=== PATIENT | female | born 1970 | race Caucasian/White ===

== ENCOUNTER 2016-10-02 10:11 | Emergency (ER) | payer OTHER ==
[2016-10-02 10:18] VITALS: TEMP 98.3; BMI 40.4
--- NOTE | 2016-10-02 11:05 | PDOC ---
History of Present Illness - General History Source: Patient, Old Records Exam Limitations: No Limitations - History of Present Illness Initial Comments: 10/02/16 11:02 The patient is a 46-year-old woman with a significant past medical history of hypertension, deep venous thrombosis (currenly on Lovenox BID), non-insulin dependent diabetes mellitus, bladder prolapse, anxiety, depression and polysubstance abuse who presents to the emergency department for further evaluation of chest pain. Patient states that for the past 3 days, she has been feeling under the weather, as she reports symptoms of nausea, vomiting, and diarrhea. She reports several episodes of bilious emesis and loose watery stools. She states that she developed chest today with associated productive cough with yellow phlegm, shortness of breath and feels as if her legs feels heavy. No pain. No numbness, tinging, weakness sensations throughout her extremities. No neck pain, jaw pain, back pain, lightheadedness, dizziness, palpitations, loss of consciousness, fever, chills. No urinary complaints. Allergies: Acetaminophen. Ibuprofen. Past Surgical History: Cholecystectomy. Social History: Current everyday smoker. No ETOH use. Marijuana use and history of opiate abuse/treatment. <Pratima Manriquez - Last Filed: 10/02/16 13:32> - General History Source: Patient, Old Records Exam Limitations: No Limitations <Viktoriya Santana - Last Filed: 10/02/16 16:36> - General Chief Complaint: Chest Pain Stated Complaint: CHEST PAIN, FATIGUE Time Seen by Provider: 10/02/16 10:45 Past History <Pratima Manriquez - Last Filed: 10/02/16 13:32> - Past Medical History Anemia: No Asthma: No Cancer: No Cardiac Disorders: No CVA: No COPD: No CHF: No Dementia: No Diabetes: Yes (type 2) GI Disorders: Yes (diarrhea) Disorders: Yes (bladder prolapse) HTN: Yes Hypercholesterolemia: No Kidney Stones: Yes Liver Disease: No Psychiatric Problems: Yes (anxiety depression) Suicide Attempt (Hx): No Seizures: No Thyroid Disease: No - Surgical History Abdominal Surgery: Yes Appendectomy: No Cardiac Surgery: No Cholecystectomy: Yes Lung Surgery: No Neurologic Surgery: No Orthopedic Surgery: No - Immunization History Td Vaccination: Yes Immunization Up to Date: Yes - Psycho/Social/Smoking Cessation Hx Anxiety: Yes Suicidal Ideation: No Smoking Status: No Smoking History: Smoker current status UNK Have you smoked in the past 12 months: Yes Number of Cigarettes Smoked Daily: 10 Information on smoking cessation initiated: Yes 'Breaking Loose' booklet given: 08/14/16 Hx Alcohol Use: No Drug/Substance Use Hx: Yes Substance Use Type: Marijuana Hx Substance Use Treatment: Yes (HX OF OPIATE TREATMENT) <Viktoriya Santana - Last Filed: 10/02/16 16:36> - Past Medical History Allergies/Adverse Reactions: Allergies Allergy/AdvReac Type Severity Reaction Status Date / Time acetaminophen [From Tylenol] AdvReac Mild Verified 10/02/16 10:18 ibuprofen [From Motrin] AdvReac Nausea Verified 10/02/16 10:18 Home Medications: Ambulatory Orders Nifedipine [Procardia Xl] 90 mg PO DAILY 07/12/16 Enoxaparin [Lovenox -] 110 mg SQ BID #60 disp.syrin 07/13/16 Quetiapine Fumarate [Seroquel -] 25 mg PO HS 08/13/16 Pregabalin [Lyrica] 100 mg PO TID 10/02/16 Review of Systems - Review of Systems Able to Perform ROS?: Yes Comments:: 10/02/16 11:02 GENERAL/CONSTITUTIONAL: No fever or chills. No weakness. HEAD, EYES, EARS, NOSE AND THROAT: No change in vision. No ear pain or discharge. No sore throat. CARDIOVASCULAR: Yes: Chest Pain. Shortness of Breath. RESPIRATORY: Yes: Cough. No wheezing, or hemoptysis. GASTROINTESTINAL: Yes: Nausea. Vomiting. Diarrhea. No constipation. GENITOURINARY: No dysuria, frequency, or change in urination. MUSCULOSKELETAL: No joint or muscle swelling or pain. No neck or back pain. SKIN: No rash NEUROLOGIC: No headache, vertigo, loss of consciousness, or change in strength/ sensation. ENDOCRINE: No increased thirst. No abnormal weight change. HEMATOLOGIC/LYMPHATIC: Yes: History of blood clots. No anemia, easy bleeding ALLERGIC/IMMUNOLOGIC: No hives or skin allergy. <Pratima Manriquze - Last Filed: 10/02/16 13:32> *Physical Exam - Vital Signs Last Vital Signs Temp Pulse Resp BP Pulse Ox 98.3 F 115 H 22 159/83 99 10/02/16 10:15 10/02/16 10:15 10/02/16 10:15 10/02/16 10:15 10/02/16 10:15 - Physical Exam Comments: 10/02/16 11:02 GENERAL: Awake, alert, and fully oriented, in no acute distress HEAD: No signs of trauma EYES: PERRLA, EOMI, sclera anicteric, conjunctiva clear ENT: Auricles normal inspection, hearing grossly normal, nares patent, oropharynx clear without exudates. Moist mucosa NECK: Normal ROM, supple, no lymphadenopathy, JVD, or masses LUNGS: Breath sounds equal, clear to auscultation bilaterally. No wheezes, and no crackles HEART: Regular rate and rhythm, normal S1 and S2, no murmurs, rubs or gallops ABDOMEN: Soft, there is some diffuse abdominal tenderness left greater than right without rebound or guarding. Normoactive bowel sounds. No guarding, no rebound. No masses EXTREMITIES: Normal range of motion, no edema. No clubbing or cyanosis. No cords, erythema, or tenderness NEUROLOGICAL: Cranial nerves II through XII grossly intact. Normal speech, normal gait <Pratima Manriquez - Last Filed: 10/02/16 13:32> - Vital Signs Last Vital Signs Temp Pulse Resp BP Pulse Ox 98.3 F 115 H 22 159/83 99 10/02/16 10:15 10/02/16 10:15 10/02/16 10:15 10/02/16 10:15 10/02/16 10:15 <Viktoriya Satnana - Last Filed: 10/02/16 16:36> ED Treatment Course - LABORATORY CBC & Chemistry Diagram: 10/02/16 11:10 10/02/16 11:10 - Medications Given in the ED: ED Medications Discontinued Medications Generic Name Dose Route Start Last Admin Trade Name Freq PRN Reason Stop Dose Admin Ondansetron HCl 4 mg 10/02/16 11:06 10/02/16 11:17 Zofran Injection IVPUSH 10/02/16 11:07 4 mg ONCE ONE Administration <Pratima Manriquez - Last Filed: 10/02/16 13:32> - LABORATORY CBC & Chemistry Diagram: 10/02/16 11:10 10/02/16 11:10 <Viktoriya Santana - Last Filed: 10/02/16 16:36> Medical Decision Making - Medical Decision Making 10/02/16 11:03 46-year-old female with history of morbid obesity, diabetes, DVT and depression presents the emergency department with complaints of mid and upper abdominal pain, vomiting and diarrhea 3 days as well as cough associated with chest pain. Differential diagnosis includes but is not limited to: Acute gastroenteritis, diverticulitis, regional colitis, pneumonia, influenza, DKA, electrolyte abnormality, dehydration, toxic/metabolic derangement. Plan: 1. Labs 2. Urine analysis 3. Chest x-ray 4. EKG 5. IV fluids for hydration 6. Antiemetics 7. Pain management 8. CT scan abdomen and pelvis 9. Observe and reevaluate 10/02/16 14:56 All labs were reviewed and are noted in the EMR. The CT scan is negative for acute abdominal pathology. Chest x-ray is negative. We'll give the patient a trial of liquids and crackers and if she tolerates we'll discharge home. Follow- up with primary care physician and return to the emergency department if her symptoms persist, worsen, or new symptoms arise. 10/02/16 16:35 Addendum: Attempted to discharge the patient but she told the nurse that she vomited in the bathroom. Will give zofran and IVF and re-evaluate. <Viktoriya Santana - Last Filed: 10/02/16 16:36> *DC/Admit/Observation/Transfer - Attestations Scribe Attestion: 10/02/16 11:02 Documentation prepared by Pratima Manriquez, acting as medical nurse for Viktoriya Santana MD. <Pratima Manriquez - Last Filed: 10/02/16 13:32> - Discharge Dispostion Admit: No - Attestations Physician Attestion: 10/02/16 11:03 I, Dr. Viktoriya Santana, attest that the scribes documentation that appears above has been prepared under my direction and personally reviewed by me in its entirety. I confirmed that the note above accurately reflects all work, treatment, procedures, and medical decision-making performed by me. <Viktoriya Santana - Last Filed: 10/02/16 16:36> Diagnosis at time of Disposition: Nausea and vomiting, Diarrhea, Abdominal pain - Discharge Dispostion Disposition: HOME Condition at time of disposition: Stable - Referrals Referrals: Ann-Marie Oconnor MD [Primary Care Provider] - - Patient Instructions Additional Instructions: Here CAT scan of the abdomen and pelvis was negative for acute intra-abdominal pathology or infection. Please follow-up with your primary care physician within the next 3 days. Make sure that you attempt to keep yourself hydrated with clear liquids and slowly advance your diet as tolerated. Return to the emergency department if your symptoms persist, worsen, or new symptoms arise.
[2016-10-02] MEDS ORDERED: ONDANSETRON 4 MG/2 ML VIAL IVPUSH ONE ×2 (11:06→16:35)
[2016-10-02] MEDS ORDERED: SODIUM CHLORIDE 1,000 ML IV STA ×2 (11:06→16:35)
[2016-10-02] MEDS ORDERED: ONDANSETRON 4 MG/2 ML VIAL ONE ×2 (11:11→17:14)
[2016-10-02 11:25] LABS: BASOPHIL 1.1 % (0-2.0); EOSINOPHIL 0.8 % (0-4.5); MCH 28.7 pg (25.7-33.7); MEAN PLT VOLUME 8.7 fl (7.5-11.1); NEUTROPHILS 69.7 % (42.8-82.8); PLATELET COUNT 345 K/MM3 (134-434); RDW 13.7 % (11.6-15.6); WHITE BLOOD COUNT 11.8 K/mm3 (4.0-10.0)
[2016-10-02 11:26] LABS: URINE APPEARANCE CLOUDY; URINE BILIRUBIN NEGATIVE (NEGATIVE); URINE BLOOD NEGATIVE (NEGATIVE); URINE COLOR AMBER; URINE GLUCOSE (UA) NEGATIVE (NEGATIVE); URINE KETONE NEGATIVE (NEGATIVE); URINE LEUK ESTERASE NEGATIVE (NEGATIVE); URINE NITRITE NEGATIVE (NEGATIVE); URINE UROBILINOGEN 2.0 E.U/dl E.U./dl (0.2-1.0)
[2016-10-02 11:29] LABS: URINE PROTEIN 1+ (NEGATIVE)
[2016-10-02 11:35] LABS: URINE BACTERIA RARE /hpf (NONE SEEN); URINE MUCUS RARE; URINE RBC 2 /hpf (0-3); URINE WBC 6 /hpf (3-5)
[2016-10-02 11:50] LABS: ALBUMIN 4.6 g/dl (3.4-5.0); ANION GAP 15 (8-16); BILIRUBIN,TOTAL 1.1 mg/dL (0.2-1.0); CALCIUM 10.2 mg/dL (8.5-10.1); CO2 26 mmol/L (21-32); CREATININE 1.2 mg/dL (0.55-1.02); GLUCOSE,RANDOM 175 mg/dL (74-106); SGOT/AST 16 U/L (15-37); SGPT/ALT 27 U/L (12-78); TOT PROT 8.2 g/dl (6.4-8.2)
[2016-10-02 11:53] LABS: ALK PHOS 71 U/L (45-117); TROPONIN I < 0.02 ng/ml (0.00-0.05)
[2016-10-02 12:09] LABS: ACETONE SERUM NEGATIVE (NEGATIVE)
[2016-10-02] MEDS ORDERED: morphine CARPU-JECT 4 MG/1 ML DISP.SYRIN IVPUSH ONE (13:03)
[2016-10-02] MEDS ORDERED: morphine CARPU-JECT 4 MG/1 ML DISP.SYRIN ONE (13:03)
[2016-10-02] MEDS ORDERED: NIFEdipine E.R. 90 MG TABLET (FP) PO SCH (14:00)
[2016-10-02 17:47] VITALS: PULSE 101
[2016-10-02 19:00] VITALS: BP 125/82
--- NOTE | 2016-10-03 17:09 | EKG ---
Test Reason : Blood Pressure : / mmHG Vent. Rate : 102 BPM Atrial Rate : 102 BPM P-R Int : 128 ms QRS Dur : 096 ms QT Int : 358 ms P-R-T Axes : 010 068 018 degrees QTc Int : 466 ms SINUS TACHYCARDIA CANNOT RULE OUT ANTERIOR INFARCT (CITED ON OR BEFORE 06-APR-2016) ABNORMAL ECG WHEN COMPARED WITH ECG OF 13-AUG-2016 14:00, NO SIGNIFICANT CHANGE WAS FOUND Confirmed by LORETO CLEANING, BRETT ([id number]) on 10/03/2016 5:09:03 PM Referred By: Confirmed By:BRETT DANGELO MD
== END 2016-10-02 19:40 | disposition home or self-care (01) ==
LOC: JER 10:11
DX: R10.84 Generalized abdominal pain (principal); R11.2 Nausea with vomiting, unspecified; I10 Essential (primary) hypertension; E11.9 Type 2 diabetes mellitus without complications; F41.9 Anxiety disorder, unspecified; Z86.718 Personal history of other venous thrombosis and embolism; Z79.01 Long term (current) use of anticoagulants; E66.01 Morbid (severe) obesity due to excess calories; Z68.41 Body mass index [BMI] 40.0-44.9, adult
CPT/HCPCS: 36415; 71010-TC; 74176-TC; 80053; 81003; 81015; 82009; 82550; 84484; 84703; 85025; 93005; 93010; 99285-25

== ENCOUNTER 2016-10-27 00:21 | Emergency (ER) | payer OTHER ==
[2016-10-27 00:54] VITALS: TEMP 98.4; BMI 39.7
--- NOTE | 2016-10-27 01:49 | PDOC ---
[id number] 4d LEG PAIN,SIDE PAIN Time Seen by Provider: 10/27/16 01:32 History Source: Patient - History of Present Illness Initial Comments: 10/27/16 01:52 46 year old female c/o b/l flank pain and left rae pain x 1 days. pain unrelieved with percocet at home. denies SOB, fever NVD.PMHx of HTN, DMII, DVT' s currently on lovenox and IVC filter, PE's, nephrolithiasis, anxiety, depression, and previous polysubstance abuse. \ Past History - Past Medical History Allergies/Adverse Reactions: Allergies Allergy/AdvReac Type Severity Reaction Status Date / Time acetaminophen [From Tylenol] AdvReac Mild Verified 10/27/16 00:39 ibuprofen [From Motrin] AdvReac Nausea Verified 10/27/16 00:39 Home Medications: Ambulatory Orders Nifedipine [Procardia Xl] 90 mg PO DAILY 07/12/16 Enoxaparin [Lovenox -] 110 mg SQ BID #60 disp.syrin 07/13/16 Quetiapine Fumarate [Seroquel -] 25 mg PO HS 08/13/16 Ondansetron [Zofran Odt -] 4 mg SL BID PRN #14 od.tablet 10/02/16 Pregabalin [Lyrica] 100 mg PO TID 10/02/16 Tramadol HCl 50 mg PO QID #12 tablet MDD 4 10/27/16 Oxycodone HCl/Acetaminophen [Percocet 10-325 mg Tablet] 1 each PO Q4H PRN Anemia: No Asthma: No Cancer: No Cardiac Disorders: No CVA: No COPD: No CHF: No Dementia: No Diabetes: Yes (type 2) GI Disorders: Yes (diarrhea) Disorders: Yes (bladder prolapse) HTN: Yes Hypercholesterolemia: No Kidney Stones: Yes Liver Disease: No Psychiatric Problems: Yes (anxiety depression) Suicide Attempt (Hx): No Seizures: No Thyroid Disease: No - Surgical History Abdominal Surgery: Yes Appendectomy: No Cardiac Surgery: No Cholecystectomy: Yes Lung Surgery: No Neurologic Surgery: No Orthopedic Surgery: No - Immunization History Td Vaccination: Yes Immunization Up to Date: Yes - Psycho/Social/Smoking Cessation Hx Anxiety: Yes Suicidal Ideation: No Smoking Status: No Smoking History: Current every day smoker Have you smoked in the past 12 months: Yes Number of Cigarettes Smoked Daily: 10 Information on smoking cessation initiated: No 'Breaking Loose' booklet given: 08/14/16 Hx Alcohol Use: No Drug/Substance Use Hx: No Substance Use Type: Marijuana Hx Substance Use Treatment: Yes (HX OF OPIATE TREATMENT) Review of Systems - Review of Systems Able to Perform ROS?: Yes Is the patient limited [place] proficient: No : Yes: Flank Pain (bilateral). No: Symptoms Reported, See HPI, Burning, Dysuria, Discharge, Frequency, Hematuria, Incontinence, Pain, Urgency, Testicular Mass, Testicular Swelling, Lesions, Testicular Pain, Other Musculoskeletal: Yes: Other (left rae pain). No: Symptoms Reported, See HPI, Back Pain, Gout, Joint Pain, Joint Swelling, Muscle Pain, Muscle Weakness, Neck Pain, Joint Stiffness *Physical Exam - Vital Signs Last Vital Signs Temp Pulse Resp BP Pulse Ox 98.4 F 89 20 156/108 99 10/27/16 00:39 10/27/16 00:39 10/27/16 00:39 10/27/16 00:39 10/27/16 00:39 - Physical Exam General Appearance: Yes: Appropriately Dressed Respiratory/Chest: positive: Lungs Clear, Normal Breath Sounds Cardiovascular: positive: Regular Rhythm, Regular Rate Gastrointestinal/Abdominal: positive: Normal Bowel Sounds, Soft Extremity: positive: Normal Capillary Refill, Normal Inspection, Normal Range of Motion. negative: Pedal Edema, Swelling, Calf Tenderness Integumentary: positive: Normal Color, Dry, Warm Neurologic: positive: Fully Oriented, Alert, Normal Mood/Affect Progress Note - Progress Note Progress Note: A: DVT; flank pain p: UA: wnl tramadol, morphine, toradol. outpatient vascular and urology practice. Medical Decision Making - Medical Decision Making 10/27/16 03:16 previous charts reviewed. patient with no reaction to toradol. will give toradol and morphine for pain. *DC/Admit/Observation/Transfer Diagnosis at time of Disposition: Flank pain DVT (deep venous thrombosis) Qualifiers: DVT location: lower extremity Affected thrombotic vein of extremity: unspecified vein of extremity Laterality: unspecified laterality Chronicity: chronic Qualified Code(s): I82.509 - Chronic embolism and thrombosis of unspecified deep veins of unspecified lower extremity - Discharge Dispostion Disposition: HOME - Prescriptions Prescriptions: Tramadol HCl 50 mg PO QID #12 tablet MDD 4 - Referrals Referrals: Herbert Knox MD [Staff Physician] - Ann-Marie Oconnor MD [Primary Care Provider] - Laron Gambino MD., [Staff Physician] - - Patient Instructions Printed Discharge Instructions: DI for Flank Pain Additional Instructions: drink plenty of fluids. follow up with vascular/ urology MD as soon as possible take tramadol as prescribed. return to the ER if symptoms worsen.
[2016-10-27 02:29] LABS: URINE APPEARANCE SLCLOUDY; URINE BILIRUBIN NEGATIVE (NEGATIVE); URINE BLOOD NEGATIVE (NEGATIVE); URINE COLOR YELLOW; URINE GLUCOSE (UA) NEGATIVE (NEGATIVE); URINE KETONE NEGATIVE (NEGATIVE); URINE LEUK ESTERASE NEGATIVE (NEGATIVE); URINE NITRITE NEGATIVE (NEGATIVE); URINE PROTEIN NEGATIVE (NEGATIVE); URINE UROBILINOGEN NEGATIVE E.U./dl (0.2-1.0)
[2016-10-27] MEDS ORDERED: KETOROLAC TROMETHAMINE 30 MG/1 ML VIAL IM ONE (03:10)
[2016-10-27] MEDS ORDERED: morphine CARPU-JECT 2 MG/1 ML DISP.SYRIN IM ONE (03:15)
[2016-10-27] MEDS ORDERED: morphine CARPU-JECT 4 MG/1 ML DISP.SYRIN ONE (03:21)
[2016-10-27] MEDS ORDERED: KETOROLAC TROMETHAMINE 30 MG/1 ML VIAL ONE (03:21)
--- NOTE | 2016-10-27 04:05 | PDOC ---
*Physical Exam - Vital Signs Last Vital Signs Temp Pulse Resp BP Pulse Ox 98.4 F 89 20 156/108 99 10/27/16 00:39 10/27/16 00:39 10/27/16 00:39 10/27/16 00:39 10/27/16 00:39 ED Treatment Course - ADDITIONAL ORDERS Additional order review: Laboratory Results 10/27/16 02:12 Urine Color Yellow Urine Appearance Slcloudy Urine pH 6.0 Ur Specific [place] 1.026 Urine Protein Negative Urine Glucose (UA) Negative Urine Ketones Negative Urine Blood Negative Urine Nitrite Negative Urine Bilirubin Negative Urine Urobilinogen Negative Ur Leukocyte Esterase Negative - Medications Given in the ED: ED Medications Discontinued Medications Generic Name Dose Route Start Last Admin Trade Name Freq PRN Reason Stop Dose Admin Ketorolac Tromethamine 30 mg 10/27/16 03:10 10/27/16 03:28 Toradol Injection - IM 10/27/16 03:11 30 mg ONCE ONE Administration Morphine Sulfate 4 mg 10/27/16 03:15 10/27/16 03:27 Morphine Injection - IM 10/27/16 03:16 4 mg ONCE ONE Administration Medical Decision Making - Medical Decision Making 10/27/16 04:04 agree with care from AIDAN Chaves *DC/Admit/Observation/Transfer Diagnosis at time of Disposition: Flank pain, DVT (deep venous thrombosis) - Discharge Dispostion Disposition: HOME - Prescriptions Prescriptions: Tramadol HCl 50 mg PO QID #12 tablet MDD 4 - Referrals Referrals: Laron Gambino MD., MD [Staff Physician] - Herbert Knox MD [Staff Physician] - Ann-Marie Oconnor MD [Primary Care Provider] - - Patient Instructions Printed Discharge Instructions: DI for Flank Pain Additional Instructions: drink plenty of fluids. follow up with vascular/ urology MD as soon as possible take tramadol as prescribed. return to the ER if symptoms worsen. - Post Discharge Activity
[2016-10-27] MEDS ORDERED: traMADol HCL 50 MG TABLET PO ONE (04:34)
[2016-10-27] MEDS ORDERED: traMADol HCL 50 MG TABLET ONE (04:46)
[2016-10-27 05:26] VITALS: BP 152/98; PULSE 92
== END 2016-10-27 05:24 | disposition home or self-care (01) ==
LOC: JER 00:21
PROC: 3E0233Z Introduction of Anti-inflammatory into Muscle, Percutaneous Approach (ICD-10-PCS; principal; 2016-10-27)
PROC: 3E023NZ Introduction of Analgesics, Hypnotics, Sedatives into Muscle, Percutaneous Approach (ICD-10-PCS; 2016-10-27)
DX: I82.509 Chronic embolism and thrombosis of unspecified deep veins of unspecified lower extremity (principal); Z79.01 Long term (current) use of anticoagulants; I10 Essential (primary) hypertension; E11.9 Type 2 diabetes mellitus without complications; F41.8 Other specified anxiety disorders; F17.210 Nicotine dependence, cigarettes, uncomplicated; Z87.442 Personal history of urinary calculi; Z86.711 Personal history of pulmonary embolism
CPT/HCPCS: 81003; 87086; 96372; 99283-25

== ENCOUNTER 2016-11-01 12:31 | Emergency (ER) | payer OTHER ==
[2016-11-01 12:36] VITALS: TEMP 98; BMI 39.7
--- NOTE | 2016-11-01 12:48 | PDOC ---
History of Present Illness - General Chief Complaint: Vomiting/Diarrhea Stated Complaint: VOMITING, DIARRHEA Time Seen by Provider: 11/01/16 12:42 History Source: Patient Exam Limitations: No Limitations - History of Present Illness Initial Comments: CHIEF COMPLAINT: 46 y/o afebrile, morbidly obese female with PMH HTN, GERD, DM2 , PEs (on daily Lovenox and with IVC filter) c/o vomiting and diarrhea x 1 week. HISTORY OF PRESENT ILLNESS: The patient also admits to b/l kidney pain for the past 1 month and a fever of 101 yesterday. She denies chills, RO, cough, hemoptysis, runny nose, CP, SOB, hematuria, dysuria, increased urinary frequency. She states she can't keep anything down. REVIEW OF SYSTEMS: GENERAL/CONSTITUTIONAL: + fever to 101. No weakness. No weight change. HEAD, EYES, EARS, NOSE AND THROAT: No change in vision. No ear pain or discharge. No sore throat. CARDIOVASCULAR: No chest pain or shortness of breath. RESPIRATORY: No cough, wheezing, or hemoptysis. GASTROINTESTINAL: +abd pain, nausea, vomiting and diarrhea. GENITOURINARY: No dysuria, frequency, or change in urination. MUSCULOSKELETAL: No joint or muscle swelling or pain. No neck pain. +b/l back pain SKIN: No rash or easy bruising. NEUROLOGIC: No headache, vertigo, loss of consciousness, or loss of sensation. PHYSICAL EXAM: GENERAL: The patient is awake, alert, and fully oriented, in no acute distress. SHe is non toxic but uncomfortable appearing. She is morbidly obese. HEAD: Normal with no signs of trauma. ENT: Pupils equal, round and reactive to light, extraocular movements intact, sclera anicteric, conjunctiva clear. Neck supple. Poor dentition. Mucous membranes moist. LUNGS: Clear to auscultation bilaterally. Normal excursion. No respiratory distress or use of accessory muscles. CV: RRR, S1/S2, no MRG. Cap refill < 2 sec. ABDOMEN: Soft, non-distended, TTp of epigastric and LLQ. No rebound, guarding or rigidity BACK: B/L CVA TTP, worse on left side. EXTREMITIES: Normal range of motion, no edema. NEUROLOGICAL: Normal speech, normal gait. CN II-XII grossly intact. PSYCH: Normal mood, normal affect. SKIN: Warm, dry, normal turgor, no rashes or lesions noted. Past History - Past Medical History Allergies/Adverse Reactions: Allergies Allergy/AdvReac Type Severity Reaction Status Date / Time acetaminophen [From Tylenol] AdvReac Mild Verified 11/01/16 12:36 ibuprofen [From Motrin] AdvReac Nausea Verified 11/01/16 12:36 Home Medications: Ambulatory Orders Nifedipine [Procardia Xl] 90 mg PO DAILY 07/12/16 Enoxaparin [Lovenox -] 110 mg SQ BID #60 disp.syrin 07/13/16 Quetiapine Fumarate [Seroquel -] 25 mg PO HS 08/13/16 Ondansetron [Zofran Odt -] 4 mg SL BID PRN #14 od.tablet 10/02/16 Pregabalin [Lyrica] 100 mg PO TID 10/02/16 Tramadol HCl 50 mg PO QID #12 tablet MDD 4 10/27/16 Oxycodone HCl/Acetaminophen [Percocet 10-325 mg Tablet] 1 each PO Q4H PRN Anemia: No Asthma: No Cancer: No Cardiac Disorders: No CVA: No COPD: No CHF: No Dementia: No Diabetes: Yes (type 2) GI Disorders: Yes (diarrhea) Disorders: Yes (bladder prolapse) HTN: Yes Hypercholesterolemia: No Kidney Stones: Yes Liver Disease: No Psychiatric Problems: Yes (anxiety depression) Suicide Attempt (Hx): No Seizures: No Thyroid Disease: No Other medical history: DVT BOTH LEGS, HAS FILTER - Surgical History Abdominal Surgery: Yes Appendectomy: No Cardiac Surgery: No Cholecystectomy: Yes Lung Surgery: No Neurologic Surgery: No Orthopedic Surgery: No - Immunization History Td Vaccination: Yes Immunization Up to Date: Yes - Psycho/Social/Smoking Cessation Hx Anxiety: Yes Suicidal Ideation: No Smoking Status: No Smoking History: Current every day smoker Have you smoked in the past 12 months: Yes Number of Cigarettes Smoked Daily: 4 Information on smoking cessation initiated: Yes 'Breaking Loose' booklet given: 11/01/16 Hx Alcohol Use: No Drug/Substance Use Hx: No Substance Use Type: None Hx Substance Use Treatment: Yes (HX OF OPIATE TREATMENT) *Physical Exam - Vital Signs Last Vital Signs Temp Pulse Resp BP Pulse Ox 98 F 93 H 19 158/112 96 11/01/16 12:34 11/01/16 12:34 11/01/16 12:34 11/01/16 12:34 11/01/16 12:34 ED Treatment Course - LABORATORY CBC & Chemistry Diagram: 11/01/16 13:10 11/01/16 13:10 Medical Decision Making - Medical Decision Making A/P: 46 y/o female with vomiting and diarrhea x 1 week. also with b/l kidney pain. Plan is as follows: 1. Labs 2. UA/hcg/culture 3. Kidney ultrasound 4. IV fluids 5. IV zofran and pepcid Labs unremarkable UA unremarkable Renal Ultrasound IMPRESSION: Both kidneys unremarkable When I went to check on the patient she was lying on stomach sleeping. When I woke her up she informed me that she is still in pain and nauseous and informs me that she can only have morphine and dilaudid for pain because she is allergic to motrin and tylenol. Will give IV benadryl and reglan The patient remains sleeping on her stomach in the ER after meds. She has not vomited since coming to the ER. Informed her of all results and plan for discharged. Suggested she f/u with her doctor within 1 week and return to the ER with any worsening or concerning symptoms. The patient verbalizes understanding of all instructions, has no further questions and is awaiting discharge. *DC/Admit/Observation/Transfer Diagnosis at time of Disposition: Vomiting and diarrhea - Discharge Dispostion Disposition: HOME Condition at time of disposition: Good - Referrals Referrals: Ann-Marie Oconnor MD [Primary Care Provider] - Call tomorrow - Patient Instructions Printed Discharge Instructions: DI for Vomiting -- Adult, DI for Diarrhea and Traveler's Diarrhea -- Adult, Likely Diet Additional Instructions: Discharge Instructions: -Drink room temperature liquids slowly to rehydrate -Eat a bland diet as tolerated until symptoms improve -Follow up with Dr. Mcdaniels tomorrow -Return to the ER with any worsening or concerning symptoms.
[2016-11-01] MEDS ORDERED: SODIUM CHLORIDE 1,000 ML IV STA (12:58)
[2016-11-01] MEDS ORDERED: ONDANSETRON 4 MG/2 ML VIAL IVPUSH ONE (12:58)
[2016-11-01] MEDS ORDERED: FAMOTIDINE 20 MG/50 ML IVPB 50 ML IVPB ONE ×2 (12:58→13:36)
[2016-11-01] MEDS ORDERED: ONDANSETRON 4 MG/2 ML VIAL ONE (13:35)
[2016-11-01 13:55] LABS: BASOPHIL 0.6 % (0-2.0); EOSINOPHIL 1.1 % (0-4.5); MCH 29.7 pg (25.7-33.7); MCHC 33.6 g/dl (32.0-36.0); MEAN CELL VOLUME 88.6 fl (80-96); MEAN PLT VOLUME 8.4 fl (7.5-11.1); NEUTROPHILS 76.1 % (42.8-82.8); PLATELET COUNT 287 K/MM3 (134-434); RDW 13.7 % (11.6-15.6); WHITE BLOOD COUNT 10.7 K/mm3 (4.0-10.0)
[2016-11-01 14:06] LABS: URINE APPEARANCE CLEAR; URINE BILIRUBIN NEGATIVE (NEGATIVE); URINE BLOOD NEGATIVE (NEGATIVE); URINE COLOR YELLOW; URINE GLUCOSE (UA) NEGATIVE (NEGATIVE); URINE KETONE NEGATIVE (NEGATIVE); URINE LEUK ESTERASE NEGATIVE (NEGATIVE); URINE NITRITE NEGATIVE (NEGATIVE); URINE UROBILINOGEN NEGATIVE E.U./dl (0.2-1.0)
[2016-11-01 14:19] LABS: ALBUMIN 3.9 g/dl (3.4-5.0); ANION GAP 9 (8-16); BILIRUBIN,TOTAL 0.7 mg/dL (0.2-1.0); CALCIUM 9.2 mg/dL (8.5-10.1); CO2 26 mmol/L (21-32); COCKROFT - GAULT 175.5165; CREATININE 0.7 mg/dL (0.55-1.02); GLUCOSE,RANDOM 125 mg/dL (74-106); SGOT/AST 13 U/L (15-37); SGPT/ALT 21 U/L (12-78)
[2016-11-01 14:22] LABS: ALK PHOS 73 U/L (45-117); TROPONIN I < 0.02 ng/ml (0.00-0.05)
[2016-11-01 14:25] LABS: URINE PROTEIN 1+ (NEGATIVE)
[2016-11-01 14:28] LABS: URINE BACTERIA RARE /hpf (NONE SEEN); URINE MUCUS RARE; URINE RBC 2 /hpf (0-3); URINE WBC 1 /hpf (3-5)
[2016-11-01] MEDS ORDERED: METOCLOPRAMIDE HCL INJECTION 10 MG/2 ML VIAL IVPB ONE (15:50)
[2016-11-01] MEDS ORDERED: METOCLOPRAMIDE HCL INJECTION 10 MG/2 ML VIAL ONE (16:12)
[2016-11-01 18:22] VITALS: BP 152/78; PULSE 88
== END 2016-11-01 18:22 | disposition home or self-care (01) ==
LOC: JER 12:31
PROC: 3E033GC Introduction of Other Therapeutic Substance into Peripheral Vein, Percutaneous Approach (ICD-10-PCS; principal; 2016-11-01)
PROC: 3E033GC Introduction of Other Therapeutic Substance into Peripheral Vein, Percutaneous Approach (ICD-10-PCS; 2016-11-01)
PROC: 3E033GC Introduction of Other Therapeutic Substance into Peripheral Vein, Percutaneous Approach (ICD-10-PCS; 2016-11-01)
DX: R11.2 Nausea with vomiting, unspecified (principal); R19.7 Diarrhea, unspecified; I10 Essential (primary) hypertension; E11.9 Type 2 diabetes mellitus without complications; K21.9 Gastro-esophageal reflux disease without esophagitis; F41.8 Other specified anxiety disorders; Z86.711 Personal history of pulmonary embolism
CPT/HCPCS: 36415; 76775-TC; 80053; 81003; 81015; 82550; 84484; 84703; 85025; 87077; 87086; 99284-25

== ENCOUNTER 2016-12-15 11:02 | Inpatient (IN) | payer OTHER ==
[2016-12-15 12:13] LABS: MCH 29.7 pg (25.7-33.7); MCHC 32.2 g/dl (32.0-36.0); MEAN PLT VOLUME 8.6 fl (7.5-11.1); PLATELET COUNT 281 K/MM3 (134-434); RDW 14.1 % (11.6-15.6); WHITE BLOOD COUNT 25.3 K/mm3 (4.0-10.0)
[2016-12-15 12:16] LABS: URINE MARIJUANA THC POSITIVE ng/ml (CUTOFF=50)
[2016-12-15 12:32] LABS: INR 0.92 (0.82-1.09); PROTHROMBIN TIME (PATIENT) 10.1 SEC (9.98-11.88)
[2016-12-15 12:37] LABS: BILIRUBIN,TOTAL 0.2 mg/dL (0.2-1.0); CALCIUM 9.3 mg/dL (8.5-10.1); COCKROFT - GAULT 74.2475; CREATININE 1.8 mg/dL (0.55-1.02); TOT PROT 7.2 g/dl (6.4-8.2)
[2016-12-15 12:52] LABS: PLATELET ESTIMATE ADEQUATE (NORMAL)
[2016-12-15 13:03] LABS: URINE APPEARANCE CLEAR; URINE BILIRUBIN NEGATIVE (NEGATIVE); URINE BLOOD NEGATIVE (NEGATIVE); URINE COLOR STRAW; URINE GLUCOSE (UA) 3+ (NEGATIVE); URINE KETONE NEGATIVE (NEGATIVE); URINE LEUK ESTERASE NEGATIVE (NEGATIVE); URINE NITRITE NEGATIVE (NEGATIVE); URINE PROTEIN 1+ (NEGATIVE); URINE UROBILINOGEN NEGATIVE E.U./dl (0.2-1.0)
[2016-12-15 13:05] LABS: URINE BACTERIA RARE /hpf (NONE SEEN); URINE HYALINE CAST 4 /lpf; URINE MUCUS RARE; URINE RBC <1 /hpf (0-3); URINE WBC 1 /hpf (3-5)
--- NOTE | 2016-12-15 13:12 | PDOC ---
History of Present Illness - General Chief Complaint: Overdose Stated Complaint: Overdose Time Seen by Provider: 12/15/16 11:41 - History of Present Illness Initial Comments: 12/15/16 13:05 CHIEF COMPLAINT: overdose HISTORY OF PRESENT ILLNESS: 46 yo F with hx of hypertension, DVT (on Lovenox, but patient admits to being noncompliant), NIDDM2, bladder prolapse, anxiety, depression and polysubstance abuse BIBEMS s/p being found unresponsive at home. Patient received 2 mg of Narcan from EMS and is now alert and responsive. Patient admits to using marijuana and smoking cigarettes but denies any recent drug use. Patient has history of methadone abuse but denies use for the last three years. She denies fever, chills, nausea, vomiting, but reports having "some diarrhea the last couple of days." She denies any current chest pain, SOB. Patient complains that she has had neck "stiffness" for the past 2-3 days but is able to touch chin to chest. No recent travel or sick contacts. PAST MEDICAL HISTORY: as per HPI FAMILY HISTORY: Denies SOCIAL HISTORY: Lives at home with mother and son. Hx of polysubstance abuse including opioids, amphetamines, marijuana. Daily smoker, 1 pack "every 3-4 days." SURGICAL HISTORY: s/p cholecystectomy ALLERGIES: acetaminophen, ibuprofen REVIEW OF SYSTEMS General/Constitutional: Denies fever or chills. Denies weakness, weight change. HEENT: Denies change in vision. Denies ear pain or discharge. Denies sore throat. Cardiovascular: Denies chest pain or shortness of breath. Respiratory: Denies cough, wheezing, or hemoptysis. Gastrointestinal: "Diarrhea the last couple of days." Denies nausea, vomiting. Denies rectal bleeding. Genitourinary: Denies dysuria, frequency, or change in urination. Musculoskeletal: "My legs always hurt." Neck "stiffness" for the past 2-3 days. Skin and breasts: "I have a cracked callous on my left big toe." PHYSICAL EXAM General Appearance: Lethargic but arousable, no apparent distress. HEENT: Pupils 1+ b/l. EOMI, normal ENT inspection, normal voice, TMs normal, pharynx normal. No conjunctival pallor. No photophobia, scleral icterus. Neck: Tenderness over L trapezius on palpation. Negative Brudzinski and Kernig signs. Trachea midline. No rigidity, carotid bruit, stridor, lymphadenopathy, or thyromegaly. Respiratory/Chest: Lungs CTAB. No shortness of breath, chest tenderness, respiratory distress, accessory muscle use. No crackles, rales, rhonchi, stridor , wheezing, dullness Cardiovascular: RRR. S1, S2. Vascular Pulses: Dorsalis-Pedis (R): 2+, Dorsalis-Pedis (L): 2+ Gastrointestinal/Abdominal: Normal bowel sounds. Abdomen soft, non-distended. No tenderness or rebound tenderness. No organomegaly, pulsatile mass, guarding , hernia, hepatomegaly, splenomegaly. Musculoskeletal/Extremities: Negative Mercedez's sign. No calf tenderness. Normal inspection. FROM of all extremities, normal capillary refill. Pelvis Stable. No CVA tenderness. No tenderness to extremities, pedal edema, swelling , erythema or deformity. Integumentary: 2 cm mildly ulcerated lesion to left hallux with dried blood, no discharge. Appropriate color, dry, warm. No cyanosis, erythema, jaundice or rash Neurologic: strategic communications manager II-XII intact. Appropriate mood/affect. Motor strength 5/5. No appreciable EOM palsy, facial droop or sensory deficit. Past History - Past Medical History Allergies/Adverse Reactions: Allergies Allergy/AdvReac Type Severity Reaction Status Date / Time acetaminophen [From Tylenol] AdvReac Mild Verified 12/15/16 11:17 ibuprofen [From Motrin] AdvReac Nausea Verified 12/15/16 11:17 Home Medications: Ambulatory Orders Nifedipine [Procardia Xl] 90 mg PO DAILY 07/12/16 Enoxaparin [Lovenox -] 110 mg SQ BID #60 disp.syrin 07/13/16 Quetiapine Fumarate [Seroquel -] 25 mg PO HS 08/13/16 Ondansetron [Zofran Odt -] 4 mg SL BID PRN #14 od.tablet 10/02/16 Pregabalin [Lyrica] 100 mg PO TID 10/02/16 Tramadol HCl 50 mg PO QID #12 tablet MDD 4 10/27/16 Oxycodone HCl/Acetaminophen [Percocet 10-325 mg Tablet] 1 each PO Q4H PRN Anemia: No Asthma: No Cancer: No Cardiac Disorders: No CVA: No COPD: No CHF: No Dementia: No Diabetes: Yes (type 2) GI Disorders: Yes (diarrhea) Disorders: Yes (bladder prolapse) HTN: Yes Hypercholesterolemia: No Kidney Stones: Yes Liver Disease: No Psychiatric Problems: Yes (anxiety depression) Suicide Attempt (Hx): No Seizures: No Thyroid Disease: No - Surgical History Abdominal Surgery: Yes Appendectomy: No Cardiac Surgery: No Cholecystectomy: Yes Lung Surgery: No Neurologic Surgery: No Orthopedic Surgery: No - Immunization History Td Vaccination: Yes Immunization Up to Date: Yes - Psycho/Social/Smoking Cessation Hx Anxiety: Yes Suicidal Ideation: No Smoking Status: No Smoking History: Current every day smoker Have you smoked in the past 12 months: Yes Number of Cigarettes Smoked Daily: 10 Information on smoking cessation initiated: No 'Breaking Loose' booklet given: 11/01/16 Hx Alcohol Use: No Drug/Substance Use Hx: No Substance Use Type: None Hx Substance Use Treatment: Yes (HX OF OPIATE TREATMENT) *Physical Exam - Vital Signs Last Vital Signs Temp Pulse Resp BP Pulse Ox 96 H 12 90/73 95 12/15/16 12:50 12/15/16 12:50 12/15/16 12:50 12/15/16 12:50 ED Treatment Course - LABORATORY CBC & Chemistry Diagram: 12/15/16 11:47 12/15/16 11:47 - ADDITIONAL ORDERS Additional order review: Laboratory Results 12/15/16 12/15/16 12/15/16 12:50 11:50 11:47 WBC RBC Hgb Hct MCV MCHC RDW Plt Count MPV Neutrophils % Lymphocytes % Monocytes % Band Neutrophils Platelet Estimate Platelet Comment INR Sodium Potassium Chloride Carbon Dioxide Anion Gap BUN Creatinine Creat Clearance w eGFR POC Glucometer [id number] Random Glucose Calcium Total Bilirubin AST ALT Alkaline Phosphatase Total Protein Albumin Serum , Qual Urine Color Straw Urine Appearance Clear Urine pH 6.0 Urine Protein 1+ H Urine Glucose (UA) 3+ H Urine Ketones Negative Urine Blood Negative Urine Nitrite Negative Urine Bilirubin Negative Urine Urobilinogen Negative Ur Leukocyte Esterase Negative Opiates Screen Methadone Screen Barbiturate Screen Phencyclidine Screen Ur Amphetamines Screen MDMA (Ecstasy) Screen Benzodiazepines Screen Cocaine Screen U Marijuana (THC) Screen Acetone, Qual Negative L 12/15/16 12/15/16 12/15/16 11:47 11:47 11:47 WBC RBC Hgb Hct MCV MCHC RDW Plt Count MPV Neutrophils % Lymphocytes % Monocytes % Band Neutrophils Platelet Estimate Platelet Comment INR 0.92 Sodium 142 Potassium 4.8 D Chloride 113 H Carbon Dioxide 17 L D Anion Gap 12 BUN 44 H D Creatinine 1.8 H D Creat Clearance w eGFR 30.57 POC Glucometer Random Glucose 320 H* D Calcium 9.3 Total Bilirubin 0.2 D AST 42 H D ALT 44 D Alkaline Phosphatase 70 Total Protein 7.2 Albumin 4.0 Serum , Qual Urine Color Urine Appearance Urine pH Urine Protein Urine Glucose (UA) Urine Ketones Urine Blood Urine Nitrite Urine Bilirubin Urine Urobilinogen Ur Leukocyte Esterase Opiates Screen Positive Methadone Screen Negative Barbiturate Screen Negative Phencyclidine Screen Negative Ur Amphetamines Screen Negative MDMA (Ecstasy) Screen Negative Benzodiazepines Screen Negative Cocaine Screen Negative U Marijuana (THC) Screen Positive Acetone, Qual 12/15/16 12/15/16 11:47 11:38 WBC 25.3 H D RBC 4.51 Hgb 13.4 Hct 41.5 MCV 92.0 MCHC 32.2 RDW 14.1 Plt Count 281 MPV 8.6 Neutrophils % 79.0 Lymphocytes % 8.0 D Monocytes % 9.0 Band Neutrophils 4.0 D Platelet Estimate Adequate Platelet Comment No clumping noted INR Sodium Potassium Chloride Carbon Dioxide Anion Gap BUN Creatinine Creat Clearance w eGFR POC Glucometer Random Glucose Calcium Total Bilirubin AST ALT Alkaline Phosphatase Total Protein Albumin Serum , Qual Negative Urine Color Urine Appearance Urine pH Urine Protein Urine Glucose (UA) Urine Ketones Urine Blood Urine Nitrite Urine Bilirubin Urine Urobilinogen Ur Leukocyte Esterase Opiates Screen Methadone Screen Barbiturate Screen Phencyclidine Screen Ur Amphetamines Screen MDMA (Ecstasy) Screen Benzodiazepines Screen Cocaine Screen U Marijuana (THC) Screen Acetone, Qual 12/15/16 12/15/16 11:50 11:47 RBC 4.51 MCV 92.0 MCHC 32.2 RDW 14.1 MPV 8.6 Neutrophils % 79.0 Lymphocytes % 8.0 D Monocytes % 9.0 POC Glucometer [id number] Medical Decision Making - Medical Decision Making 12/15/16 13:12 46 yo F with hx of hypertension, DVT (on Lovenox), NIDDM2, bladder prolapse, anxiety, depression and polysubstance abuse BIBEMS s/p being found unresponsive at home. -CBC, CMP, PT/INR -EKG Labs: WBC 25.3, Creatinine 1.8 (elevated from 0.7 last visit) Utox: positive for opiates and marijuana -CXR -lactic acid, blood cx, UA, UCx 12/15/16 14:01 Discussed case with attending MD Kimbrough; patient seen at bedside by . At this time she reports taking 2 Percocets this morning and is also taking Lyrica , Seroquel, and Trazadone. Given patient's c/o "stiff neck" and markedly elevated WBC, differential includes meningitis but unclear if AMS is due to polysubstance, including opioid use this morning or due to infection. Will repeat 1L NS bolus and CBC and reassess; however patient also has incidental ANASTASIA , will admit for inpatient services. *DC/Admit/Observation/Transfer Diagnosis at time of Disposition: Acute kidney injury Drug overdose Qualifiers: Encounter type: subsequent encounter Injury intent: undetermined intent Qualified Code(s): T50.904D - Poisoning by unspecified drugs, medicaments and biological substances, undetermined, subsequent encounter - Discharge Dispostion Admit: Yes
[2016-12-15] MEDS ORDERED: SODIUM CHLORIDE 0.9% 1000 ML INFUS.BAG IV ONE (14:11)
[2016-12-15] MEDS ORDERED: SODIUM CHLORIDE 1,000 ML IV STA (16:58)
[2016-12-15] MEDS ORDERED: SODIUM CHLORIDE 1,000 ML IV SCH (17:00)
--- NOTE | 2016-12-15 17:21 | HP ---
CHIEF COMPLAINT: Found unresponsive PCP: Dr. 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 Patient is poor historian and unable to obtain full history. Information obtained from EMS, Nurses, and reports. Patient's mother reports around 0900 this morning, she took her son to school and came back around 0930. Patient's mother around 0930 found her unconscious and called 911. When questioning patient she does report taking three percocets , seroquel, tramadol, and marijuana but keeps saying " I don't remember anything " and then falls back to sleep. Otherwise, patient denies fever, chills, nausea , vomiting, chest pain, shortness of breath. ER course was notable for: (1)Urine toxicology (2)1 Bolus of IV NS (3)Narcan Recent Travel: Unable to obtain PAST MEDICAL HISTORY: HTN, NIDDMII, DVT/PE, Polysubstance abuse, Anxiety, depression PAST SURGICAL HISTORY: Cholecystectomy Social History: Smoking: Patient denies any cigarette smoking Alcohol: Denies Drugs: Marijuana Family History: Allergies acetaminophen [From Tylenol] Adverse Reaction (Mild, Verified 12/15/16 11:17) upset stomach ibuprofen [From Motrin] Adverse Reaction (Verified 12/15/16 11:17) Nausea HOME MEDICATIONS: Home Medications Home Medications Medication Instructions Recorded Quetiapine Fumarate [Seroquel -] 200 mg PO HS 08/13/16 Pregabalin [Lyrica] 100 mg PO TID 10/02/16 Tramadol HCl 50 mg PO QID #12 tablet MDD 4 10/27/16 Lisinopril [Prinivil] 20 mg PO DAILY 12/15/16 Losartan Potassium [Cozaar -] 50 mg PO DAILY 12/15/16 Trazodone HCl 50 mg PO TID 12/15/16 REVIEW OF SYSTEMS Unable to obtain PHYSICAL EXAMINATION Vital Signs - 24 hr 12/15/16 14:51 Pulse Rate [ 98 H Apical] Blood Pressure 101/61 [Left Arm] O2 Sat by Pulse 94 L Oximetry (%) GENERAL: Lethargic but responsive and arousable HEAD: Normal with no signs of trauma. EYES: Pupils constricted, sclera anicteric, conjunctiva clear. EARS, NOSE, THROAT: Poor dentition with missing teeth. Moist mucous membranes. NECK: Increased neck circumference LUNGS: Breath sounds equal, clear to auscultation bilaterally. No wheezes, and no crackles. No accessory muscle use. HEART: Regular rate and rhythm, normal S1 and S2 without murmur, rub or gallop. ABDOMEN: Soft, Obese, nontender, not distended, normoactive bowel sounds, no guarding, no rebound, no masses. UPPER EXTREMITIES: No peripheral edema. LOWER EXTREMITIES:No peripheral edema. SKIN: 2-3 cm abrasion of left hallux with dried blood and no drainage, discharge , or odor. Laboratory Results - last 24 hr 12/15/16 12/15/16 12/15/16 11:38 11:47 11:47 WBC 25.3 H D Corrected WBC (auto) RBC 4.51 Hgb 13.4 Hct 41.5 MCV 92.0 MCHC 32.2 RDW 14.1 Plt Count 281 MPV 8.6 Neutrophils % 79.0 Lymphocytes % 8.0 D Monocytes % 9.0 Eosinophils % Basophils % Band Neutrophils 4.0 D Differential Comment Smudge Cells Platelet Estimate Adequate Platelet Comment No clumping noted RBC Morphology INR Sodium 142 Potassium 4.8 D Chloride 113 H Carbon Dioxide 17 L D Anion Gap 12 BUN 44 H D Creatinine 1.8 H D Creat Clearance w eGFR 30.57 POC Glucometer Random Glucose 320 H* D Lactic Acid Calcium 9.3 Total Bilirubin 0.2 D AST 42 H D ALT 44 D Alkaline Phosphatase 70 Total Protein 7.2 Albumin 4.0 Serum , Qual Negative Urine Color Urine Appearance Urine pH Urine Protein Urine Glucose (UA) Urine Ketones Urine Blood Urine Nitrite Urine Bilirubin Urine Urobilinogen Ur Leukocyte Esterase Urine RBC Urine WBC Ur Epithelial Cells Urine Bacteria Hyaline Casts Urine Mucus Opiates Screen Methadone Screen Barbiturate Screen Phencyclidine Screen Ur Amphetamines Screen MDMA (Ecstasy) Screen Benzodiazepines Screen Cocaine Screen U Marijuana (THC) Screen Acetone, Qual 12/15/16 12/15/16 12/15/16 11:47 11:47 11:47 WBC Corrected WBC (auto) RBC Hgb Hct MCV MCHC RDW Plt Count MPV Neutrophils % Lymphocytes % Monocytes % Eosinophils % Basophils % Band Neutrophils Differential Comment Smudge Cells Platelet Estimate Platelet Comment RBC Morphology INR 0.92 Sodium Potassium Chloride Carbon Dioxide Anion Gap BUN Creatinine Creat Clearance w eGFR POC Glucometer Random Glucose Lactic Acid Calcium Total Bilirubin AST ALT Alkaline Phosphatase Total Protein Albumin Serum , Qual Urine Color Urine Appearance Urine pH Urine Protein Urine Glucose (UA) Urine Ketones Urine Blood Urine Nitrite Urine Bilirubin Urine Urobilinogen Ur Leukocyte Esterase Urine RBC Urine WBC Ur Epithelial Cells Urine Bacteria Hyaline Casts Urine Mucus Opiates Screen Positive Methadone Screen Negative Barbiturate Screen Negative Phencyclidine Screen Negative Ur Amphetamines Screen Negative MDMA (Ecstasy) Screen Negative Benzodiazepines Screen Negative Cocaine Screen Negative U Marijuana (THC) Screen Positive Acetone, Qual Negative L 12/15/16 12/15/16 12/15/16 11:50 12:00 12:50 WBC Corrected WBC (auto) RBC Hgb Hct MCV MCHC RDW Plt Count MPV Neutrophils % Lymphocytes % Monocytes % Eosinophils % Basophils % Band Neutrophils Differential Comment Smudge Cells Platelet Estimate Platelet Comment RBC Morphology INR Sodium Potassium Chloride Carbon Dioxide Anion Gap BUN Creatinine Creat Clearance w eGFR POC Glucometer [phone] Random Glucose Lactic Acid 2.0 Calcium Total Bilirubin AST ALT Alkaline Phosphatase Total Protein Albumin Serum , Qual Urine Color Straw Urine Appearance Clear Urine pH 6.0 Urine Protein 1+ H Urine Glucose (UA) 3+ H Urine Ketones Negative Urine Blood Negative Urine Nitrite Negative Urine Bilirubin Negative Urine Urobilinogen Negative Ur Leukocyte Esterase Negative Urine RBC <1 Urine WBC 1 Ur Epithelial Cells Rare Urine Bacteria Rare Hyaline Casts 4 Urine Mucus Rare Opiates Screen Methadone Screen Barbiturate Screen Phencyclidine Screen Ur Amphetamines Screen MDMA (Ecstasy) Screen Benzodiazepines Screen Cocaine Screen U Marijuana (THC) Screen Acetone, Qual ASSESSMENT/PLAN: Patient is a 46 year old female with a significant PMHx of HTN, NIDDMII, 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 Patient's urine was positive for marijuana and opioids and was found to have ANASTASIA and Leukocytosis. Patient admitted for further monitoring and management. Acute Toxic Metabolic Encephalopathy secondary to Polysubstance Abuse and Overdose -Urine toxicology positive for Marijuana and Opioids -Narcan x2 given in ED and patient was responsive but lethargic -Need to monitor for any withdrawal symptoms such as tachycardia, chest pain, nausea, vomiting, agitation, -Will consider Methadone Acute Renal Failure -Creatinine 1.8 -Baseline 0.7 (10/22/16) -1 Bolus of IV NS given in the ED. Another bolus ordered -IV NS maintenance @125mls/hr SIRS with Tachycardia and Leukocytosis -Secondary to possible aspiration due to lethargy -WBC 25.3 -Last lactic 0.9 -Unasyn 1.5mg Q8H ordered -IV fluids NS @125mls/hr -Blood cultures pending -Monitor CBC Abrasion of Left Hallux -Bacitracin Topical BID History of DVT/PE w/ IVC Filter -Patient reports noncompliance -Lovenox 110mg BID ordered HTN -Borderline hypotension -Volume resuscitate with IV NS @125mls/hr -Will hold home medications Lisinopril 20mg and Losartan 50mg -Continue to monitor BP NIDDMII -ISS -BGM -A1C ordered Anxiety/Depression -Continue Seroquel 200mg hs F/E/N -On IV NS @125mls/hr -Electrolytes wnl -Diabetic Diet Prophylaxis -Lovenox 110mg BID for DVT Disposition -Possible Aspiration pneumonia, started on IV antibiotics. Continuing IV fluids for resolution of ARF. Will likely stay overnight. Visit type - Emergency Visit Emergency Visit: Yes ED Registration Date: 12/15/16 Care time: The patient presented to the Emergency Department on the above date and was hospitalized for further evaluation of their emergent condition. - New Patient This patient is new to me today: Yes Date on this admission: 12/18/16 - Critical Care Critical Care patient: No
[2016-12-15 18:04] LABS: BASOPHIL 0.2 % (0-2.0); EOSINOPHIL 0.1 % (0-4.5); MCH 29.1 pg (25.7-33.7); MCHC 31.2 g/dl (32.0-36.0); MEAN CELL VOLUME 93.1 fl (80-96); MEAN PLT VOLUME 8.8 fl (7.5-11.1); NEUTROPHILS 88.9 % (42.8-82.8); PLATELET COUNT 331 K/MM3 (134-434); RDW 14.3 % (11.6-15.6); WHITE BLOOD COUNT 19.6 K/mm3 (4.0-10.0)
--- NOTE | 2016-12-15 18:19 | PN ---
Teaching Attending Note Name of Resident: Oly Wade ATTENDING PHYSICIAN STATEMENT I saw and evaluated the patient. I reviewed the resident's note and discussed the case with the resident. I agree with the resident's findings and plan as documented. SUBJECTIVE:46yo F brought in after mother found her unresponsive in her room at 0930. pt is now alert and responsive after receiving narcan x2 by EMS. as per pt she woke up at 0600 as per her normal routine, took her AM meds and drove her son to school then came home to nap. She states she took perocet 10mg as well. It was an old prescription which she had left over and is supposed to take 1 tab but she took 2. has been having intermittent productive cough of yellow sputum x2 months. and diarrhea for the past week. +frequent belching. no recent travel or sick contacts. has not been on any abx. states her tramadol and lyrica were recently increased (however according to RADIOLOGICAL TECHNICIAN has been the same since december 2015.). denies CP, SOB,fever, chills, N/V/C/D admits to missing 1-2doses of lovenox weekly OBJECTIVE: Last Vital Signs Temp Pulse Resp BP Pulse Ox 97.4 F L 95 H 18 97/62 95 12/15/16 13:39 12/15/16 17:34 12/15/16 17:34 12/15/16 17:34 12/15/16 17:34 General NAD, dishelved, poor dentition CV S1 S2 tachycardic Lungs fine wheezes at apices. no crackles Abdomen soft NT/ND normoactive BS. obese Extremities abrasion to lateral L hallux with dried blood, non tender no active bleeding or oozing. no calf tenderness ASSESSMENT AND PLAN: 46yp F with PMH multiple DVT/PE s/p IVC filter, DM, HTN, remote polysubstance abuse presented to the ER after found unresponsive 1. Acute toxic metabolic encephalopathy- likely due to opiate overdose however can not r/o due to hypoperfusion vs sepsis vs ingestion of unknown substance. s/ p narcan x2. with return to mental baseline. pt states she only took 10 mg which is unlikely to cause such profound obtunded state as she has been chronically on opiates in the past. Utox +opiates and THC. will cont to monitor mental status with frequent neurochecks. hold sedating agents. 2. Sepsis due to suspected aspiration PNA vs cdiff- meets criteria with leukocytosis and tachycardia. CXR negative for infiltrate however this often lacks clinical symptoms. UA negative and BCx sent. check stools for cdiff, O&P. start unasyn for suspected aspiration. cont IVF. f/c Cx 3. Hypotension- possible due to opiates vs infection. s/p 2 L NS bolus. with improvement. cont NS @ 125cc/H. hold oral antihypertensives. 4. ANASTASIA- due to hypoperfusion. hydrate. avoid nephrotoxic agents 5. Hyperglycemia with glucosuria- states she takes metformin at home. will start ISS, BGM. check A1c. hold oral agents 6. DVT/PE s/p IVC filter- on lovenox as failed xarelto therapy. cont lovenox RADIOLOGICAL TECHNICIAN Reference #: [id number]
[2016-12-15 18:41] VITALS: BMI 39.6
[2016-12-15] MEDS: PREGABALIN 50 MG CAPSULE PO SCH (21:29)
[2016-12-15] MEDS: QUEtiapine FUMARATE 25 MG TABLET (FP) PO SCH (21:29)
[2016-12-15] MEDS: AMPICILLIN NA/SULBACTAM NA 1.5 GM in SODIUM CHLORIDE 100 ML IVPB SCH (21:29)
[2016-12-15] MEDS: INSULIN SLIDING SCALE (NOVOLOG) 1 VIAL SQ SCH (21:30)
[2016-12-15] MEDS: BACITRACIN 30 GM TUBE TOPICAL OINTMENT TP SCH (21:30)
[2016-12-15] MEDS: ENOXAPARIN NA (PORCINE) 120 MG/0.8 ML DISP.SYRIN SQ SCH (21:30)
[2016-12-15] MEDS ORDERED: PT OWN MED DRAWER 7, Y5N ONE (22:40)
[2016-12-16] MEDS: AMPICILLIN NA/SULBACTAM NA 1.5 GM in SODIUM CHLORIDE 100 ML IVPB SCH ×2 (02:14→11:25)
[2016-12-16] MEDS ORDERED: KETOROLAC TROMETHAMINE 10 MG TABLET PO ONE (02:30)
[2016-12-16] MEDS: INSULIN SLIDING SCALE (NOVOLOG) 1 VIAL SQ SCH ×4 (06:07→21:43)
[2016-12-16] MEDS: PREGABALIN 50 MG CAPSULE PO SCH ×3 (06:08→21:32)
[2016-12-16 08:01] LABS: BASOPHIL 0.3 % (0-2.0); EOSINOPHIL 1.1 % (0-4.5); MCH 29.9 pg (25.7-33.7); MCHC 32.7 g/dl (32.0-36.0); MEAN CELL VOLUME 91.3 fl (80-96); MEAN PLT VOLUME 8.6 fl (7.5-11.1); NEUTROPHILS 72.7 % (42.8-82.8); PLATELET COUNT 218 K/MM3 (134-434); RDW 13.9 % (11.6-15.6)
[2016-12-16 08:34] LABS: CALCIUM 8.5 mg/dL (8.5-10.1); COCKROFT - GAULT 94.112; CREATININE 1.3 mg/dL (0.55-1.02)
[2016-12-16] MEDS ORDERED: PT OWN MED DRAWER 7, Y5N ONE ×2 (09:42→21:36)
[2016-12-16] MEDS: ENOXAPARIN NA (PORCINE) 120 MG/0.8 ML DISP.SYRIN SQ SCH ×2 (09:49→21:38)
[2016-12-16] MEDS: BACITRACIN 30 GM TUBE TOPICAL OINTMENT TP SCH ×2 (10:37→21:32)
--- NOTE | 2016-12-16 11:49 | PN ---
Progress Note (short form) - Note Progress Note: continues to have cough but no longer productive. continues to have loose stool but less in frequency. no repeated episodes of LOC. denies CP, SOB,fever, chills , N/V/C Current Medications Generic Name Dose Route Start Last Admin Trade Name Justinq PRN Reason Stop Dose Admin Bacitracin 1 applic 12/15/16 22:00 12/16/16 10:37 Bacitracin - TP 1 applic BID NI Administration Enoxaparin Sodium 110 mg 12/15/16 22:00 12/16/16 09:49 Lovenox - SQ 110 mg BID NI Administration Sodium Chloride 1,000 mls @ 125 mls/hr 12/15/16 17:00 12/15/16 17:19 Normal Saline - IV 125 mls/hr ASDIR NI Administration Ampicillin Sodium/Sulbactam 100 mls @ 200 mls/hr 12/15/16 18:00 12/16/16 11:25 Sodium 1.5 gm/ Sodium Chloride IVPB 200 mls/hr Q8H-IV NI Administration Insulin Aspart 0 vial 12/15/16 22:00 12/16/16 11:31 Novolog Vial Sliding Scale - SQ Not Given ACHS NI Protocol Pregabalin 100 mg 12/15/16 22:00 12/16/16 06:08 Lyrica - PO 100 mg TID NI Administration Quetiapine Fumarate 25 mg 12/15/16 22:00 12/15/16 21:29 Seroquel - PO 25 mg HS NI Administration Last Vital Signs Temp Pulse Resp BP Pulse Ox 98.3 F 97 H 18 131/78 98 12/16/16 08:00 12/16/16 08:00 12/16/16 08:00 12/16/16 08:00 12/15/16 21:00 General NAD, resting comfortable CV S1 S2 RRR no murmur/rub/gallop Lungs CTA B/L no wheezing/rales/rhonchi poor inspiratory effort Abdomen soft NT/ND normoactive BS. obese Extremities no pedal edema CBCD WBC 12.0 K/mm3 (4.0-10.0) H D 12/16/16 06:30 RBC 4.17 M/mm3 (3.60-5.2) 12/16/16 06:30 Hgb 12.5 GM/dL (10.7-15.3) 12/16/16 06:30 Hct 38.1 % (32.4-45.2) 12/16/16 06:30 MCV 91.3 fl (80-96) 12/16/16 06:30 MCHC 32.7 g/dl (32.0-36.0) 12/16/16 06:30 RDW 13.9 % (11.6-15.6) 12/16/16 06:30 Plt Count 218 K/MM3 (134-434) D 12/16/16 06:30 MPV 8.6 fl (7.5-11.1) 12/16/16 06:30 CMP Sodium 141 mmol/L (136-145) 12/16/16 06:30 Potassium 4.4 mmol/L (3.5-5.1) 12/16/16 06:30 Chloride 112 mmol/L (98-107) H 12/16/16 06:30 Carbon Dioxide 21 mmol/L (21-32) D 12/16/16 06:30 Anion Gap 8 (8-16) 12/16/16 06:30 BUN 34 mg/dL (7-18) H D 12/16/16 06:30 Creatinine 1.3 mg/dL (0.55-1.02) H D 12/16/16 06:30 Creat Clearance w eGFR 30.57 (>60) 12/15/16 11:47 Calcium 8.5 mg/dL (8.5-10.1) 12/16/16 06:30 Total Bilirubin 0.2 mg/dL (0.2-1.0) D 12/15/16 11:47 AST 42 U/L (15-37) H D 12/15/16 11:47 ALT 44 U/L (12-78) D 12/15/16 11:47 Alkaline Phosphatase 70 U/L (45-117) 12/15/16 11:47 Total Protein 7.2 g/dl (6.4-8.2) 12/15/16 11:47 Albumin 4.0 g/dl (3.4-5.0) 12/15/16 11:47 ASSESSMENT AND PLAN: 46yp F with PMH multiple DVT/PE s/p IVC filter, DM, HTN, remote polysubstance abuse presented to the ER after found unresponsive 1. Acute toxic metabolic encephalopathy- likely due to opiate overdose however can not r/o due to hypoperfusion vs sepsis vs ingestion of unknown substance. s/ p narcan x2. mental status returned to baseline with no repeat episodes of unresponsiveness. will re-start seroquel and trazadone. monitor mental status. 2. Sepsis due to suspected aspiration PNA vs cdiff- afebrile. leukocytosis improved. cont unasyn day 2. f/u cdiff and Bcx. 3. Hypotension- possible due to opiates vs infection. responsive to fluid resuscitation. BP remains stable. will hold antihypertensives at this time. d/c IVF 4. ANASTASIA- due to hypoperfusion. improved. avoid nephrotoxic agents 5. Hyperglycemia with glucosuria- states she takes metformin at home. will start ISS, BGM. A1c pending. hold oral agents 6. DVT/PE s/p IVC filter- on lovenox as failed xarelto therapy. cont lovenox 7. morbid obesity- BMI 40. bariatric referral as outpatient 8. d/c planning in the AM pending Cx reports. patient verbalized understanding and agreement with plan. Visit type - Emergency Visit Emergency Visit: Yes ED Registration Date: 12/15/16 Care time: The patient presented to the Emergency Department on the above date and was hospitalized for further evaluation of their emergent condition. - New Patient This patient is new to me today: No - Critical Care Critical Care patient: No - Discharge Referral Referred to [facility] Med P.C.: No
[2016-12-16] MEDS ORDERED: NICOTINE 14 MG/24 HOURS TOPICAL PATCH TD ONE (16:45)
[2016-12-16] MEDS: AMPICILLIN NA/SULBACTAM NA 1.5 GM/100 ML PRE-DOCKED IVPB SCH (17:47)
--- NOTE | 2016-12-16 19:19 | EKG ---
Test Reason : Blood Pressure : / mmHG Vent. Rate : 097 BPM Atrial Rate : 097 BPM P-R Int : 150 ms QRS Dur : 104 ms QT Int : 382 ms P-R-T Axes : 057 065 041 degrees QTc Int : 485 ms NORMAL SINUS RHYTHM PROLONGED QT ABNORMAL ECG WHEN COMPARED WITH ECG OF 02-OCT-2016 10:24, NO SIGNIFICANT CHANGE WAS FOUND Confirmed by ART SAM MD ([id number]) on 12/16/2016 7:18:47 PM Referred By: Confirmed By:ART SAM MD
[2016-12-16] MEDS: QUEtiapine FUMARATE 25 MG TABLET (FP) PO SCH (21:32)
[2016-12-17] MEDS: AMPICILLIN NA/SULBACTAM NA 1.5 GM/100 ML PRE-DOCKED IVPB SCH ×2 (01:41→10:40)
[2016-12-17] MEDS: PREGABALIN 50 MG CAPSULE PO SCH ×2 (06:15→13:20)
[2016-12-17] MEDS: INSULIN SLIDING SCALE (NOVOLOG) 1 VIAL SQ SCH ×2 (06:16→11:30)
[2016-12-17 08:08] LABS: CALCIUM 8.9 mg/dL (8.5-10.1); COCKROFT - GAULT 152.932; CREATININE 0.8 mg/dL (0.55-1.02)
[2016-12-17 08:23] LABS: BASOPHIL 0.8 % (0-2.0); EOSINOPHIL 2.2 % (0-4.5); MCH 29.9 pg (25.7-33.7); MCHC 33.6 g/dl (32.0-36.0); MEAN CELL VOLUME 89.2 fl (80-96); MEAN PLT VOLUME 8.8 fl (7.5-11.1); NEUTROPHILS 65.8 % (42.8-82.8); PLATELET COUNT 201 K/MM3 (134-434); RDW 13.2 % (11.6-15.6)
[2016-12-17] MEDS ORDERED: traMADol HCL 50 MG TABLET PO STA (10:11)
--- NOTE | 2016-12-17 10:14 | PN ---
Progress Note (short form) - Note Progress Note: c/o RO this AM. exacerbated by coughing. did not wake her up from sleep. no vision changes. cough and diarrhea has resolved. no repeated episodes of LOC. denies CP, SOB,fever, chills, N/V/C Current Medications Generic Name Dose Route Start Last Admin Trade Name Justinq PRN Reason Stop Dose Admin Ampicillin Sodium/Sulbactam Sodium 1.5 gm 12/16/16 18:00 12/17/16 01:41 Unasyn 1.5 Gm (Pre-Docked) IVPB 1.5 gm Q8H-IV NI Administration Bacitracin 1 applic 12/15/16 22:00 12/16/16 21:32 Bacitracin - TP 1 applic BID NI Administration Enoxaparin Sodium 110 mg 12/15/16 22:00 12/16/16 21:38 Lovenox - SQ 110 mg BID NI Administration Insulin Aspart 0 vial 12/15/16 22:00 12/17/16 06:16 Novolog Vial Sliding Scale - SQ Not Given ACHS NI Protocol Pregabalin 100 mg 12/15/16 22:00 12/17/16 06:15 Lyrica - PO 100 mg TID NI Administration Quetiapine Fumarate 25 mg 12/15/16 22:00 12/16/16 21:32 Seroquel - PO 25 mg HS NI Administration Tramadol HCl 50 mg 12/17/16 10:11 Ultram - PO 12/17/16 10:12 ONCE STA Last Vital Signs Temp Pulse Resp BP Pulse Ox 98.5 F 86 18 133/73 98 12/17/16 08:00 12/17/16 08:00 12/17/16 08:00 12/17/16 08:00 12/16/16 21:00 General NAD, resting comfortable CV S1 S2 RRR no murmur/rub/gallop Lungs CTA B/L no wheezing/rales/rhonchi poor inspiratory effort Abdomen soft NT/ND normoactive BS. obese Extremities no pedal edema CBCD WBC 12.0 K/mm3 (4.0-10.0) H 12/17/16 07:00 RBC 3.97 M/mm3 (3.60-5.2) 12/17/16 07:00 Hgb 11.9 GM/dL (10.7-15.3) 12/17/16 07:00 Hct 35.4 % (32.4-45.2) 12/17/16 07:00 MCV 89.2 fl (80-96) 12/17/16 07:00 MCHC 33.6 g/dl (32.0-36.0) 12/17/16 07:00 RDW 13.2 % (11.6-15.6) 12/17/16 07:00 Plt Count 201 K/MM3 (134-434) 12/17/16 07:00 MPV 8.8 fl (7.5-11.1) 12/17/16 07:00 CMP Sodium 141 mmol/L (136-145) 12/17/16 06:20 Potassium 4.2 mmol/L (3.5-5.1) 12/17/16 06:20 Chloride 111 mmol/L (98-107) H 12/17/16 06:20 Carbon Dioxide 23 mmol/L (21-32) 12/17/16 06:20 Anion Gap 7 (8-16) L 12/17/16 06:20 BUN 26 mg/dL (7-18) H D 12/17/16 06:20 Creatinine 0.8 mg/dL (0.55-1.02) D 12/17/16 06:20 Creat Clearance w eGFR 30.57 (>60) 12/15/16 11:47 Calcium 8.9 mg/dL (8.5-10.1) 12/17/16 06:20 Total Bilirubin 0.2 mg/dL (0.2-1.0) D 12/15/16 11:47 AST 42 U/L (15-37) H D 12/15/16 11:47 ALT 44 U/L (12-78) D 12/15/16 11:47 Alkaline Phosphatase 70 U/L (45-117) 12/15/16 11:47 Total Protein 7.2 g/dl (6.4-8.2) 12/15/16 11:47 Albumin 4.0 g/dl (3.4-5.0) 12/15/16 11:47 Microbiology 12/15/16 16:00 Blood Culture - Preliminary Blood - Peripheral Venous NO GROWTH OBTAINED AFTER 24 HOURS, INCUBATION TO CONTINUE FOR 4 DAYS. 12/15/16 16:00 Blood Culture - Preliminary Blood - Peripheral Venous NO GROWTH OBTAINED AFTER 24 HOURS, INCUBATION TO CONTINUE FOR 4 DAYS. 12/16/16 14:00 Clostridium difficile Antigen (SUSIE) - Final Stool Clostridium difficile Toxin Assay - Final ASSESSMENT AND PLAN: 46yp F with PMH multiple DVT/PE s/p IVC filter, DM, HTN, remote polysubstance abuse presented to the ER after found unresponsive 1. Acute toxic metabolic encephalopathy- likely due to opiate overdose however can not r/o due to hypoperfusion vs sepsis vs ingestion of unknown substance. s/ p narcan x2. mental status returned to baseline with no repeat episodes of unresponsiveness. on seroquel and trazadone. 2. Sepsis due to suspected aspiration PNA vs cdiff- afebrile. leukocytosis improved. cont unasyn day 3. will d/c on augmentin to complete 7 day course. Cx and cdiff negative 3. RO- frontal. likely tension RO. resolved with pain medication. instructed if RO persists should return to ER for imaging studies. 3. Hypotension- possible due to opiates vs infection. responsive to fluid resuscitation. re-start lisinopril. unable to call pharmacy to confirm. should not be on both acei and arb 4. ANASTASIA- due to hypoperfusion. improved. avoid nephrotoxic agents 5. Hyperglycemia with glucosuria- states she takes metformin at home. sugars controlled here not requiring coverage. A1c pending. 6. DVT/PE s/p IVC filter- on lovenox as failed xarelto therapy. cont lovenox 7. morbid obesity- BMI 40. bariatric referral as outpatient 8. d/c home with augmentin to complete 7 day course. Visit type - Emergency Visit Emergency Visit: Yes ED Registration Date: 12/15/16 Care time: The patient presented to the Emergency Department on the above date and was hospitalized for further evaluation of their emergent condition. - New Patient This patient is new to me today: No - Critical Care Critical Care patient: No - Discharge Referral Referred to [facility] Med P.C.: No
[2016-12-17] MEDS ORDERED: PT OWN MED DRAWER 7, Y5N ONE (10:35)
[2016-12-17] MEDS: BACITRACIN 30 GM TUBE TOPICAL OINTMENT TP SCH (10:42)
[2016-12-17] MEDS: ENOXAPARIN NA (PORCINE) 120 MG/0.8 ML DISP.SYRIN SQ SCH (11:25)
[2016-12-17 14:48] VITALS: BP 154/98; PULSE 92; TEMP 98.4
--- NOTE | 2016-12-18 18:58 | DS ---
Physical Exam: HOSPITAL COURSE: Patient is a 46 year old female with a significant PMHx of HTN, NIDDMII, 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 When questioning patient she does report taking three percocets, seroquel, tramadol, and marijuana. Patient was very lethargic on initial encounter. U/A was positive for marijuana and Opiates. Patient was given Narcan twice and was responsive but lethargic. Patient was also found to have ANASTASIA, leukocytosis with SIRS criteria. Patient started on Fluids with quick response and resolution of ANASTASIA. Patient was started on Unasyn for possible aspiration pneumonia with resolution of leukocytosis. On the last day patient was found hypotensive and bolus of fluids given with maintenance and patient's hypotension resolved. Patient was counseled on drug use and dangers of it. Patient was also referred to bariatrics for her morbid obesity. Patient stable for discharge and was prescribed PO augmentin. Date of Admission:12/15/16 Date of Discharge: 12/18/16 Minutes to complete discharge: 45 Discharge Summary Reason For Visit: ACUT KIDNEY INJURY/DRUG OVERDOSE Condition: Improved - Instructions Diet, Activity, Other Instructions: You were admitted due to the fact you were found unresponsive. possibly due to the percocets you took. You are bring treated for aspiration pneumonia which you might have developed when you were unresponsive. It is important to take medications as prescribed to minimize complications. Take antibiotics until completed. Resume your home dose of metformin Follow a diabetic low salt diet Follow up with your primary care doctor next week Avoid smoking cigarettes as this is detrimental to your health and can cause serious risks like cancer and . Return to the ER if your mental status worsens or if you develop high fevers ( temp >101) Referrals: Ann-Marie Oconnor MD [Primary Care Provider] - Disposition: HOME - Home Medications Comprehensive Discharge Medication List: Ambulatory Orders Quetiapine Fumarate [Seroquel -] 200 mg PO HS 08/13/16 Pregabalin [Lyrica] 100 mg PO TID 10/02/16 Lisinopril [Prinivil] 20 mg PO DAILY 12/15/16 Amoxicillin/Potassium Clav [Augmentin 875-125 Tablet] 1 each PO BID #8 tablet Enoxaparin [Lovenox -] 110 mg SQ BID #60 syr 12/17/16 Tramadol HCl 50 mg PO QID PRN #30 tablet MDD 4 12/17/16 This patient is new to me today: No Emergency Visit: Yes ED Registration Date: 12/15/16 Care time: The patient presented to the Emergency Department on the above date and was hospitalized for further evaluation of their emergent condition. Critical Care patient: No - Discharge Referral Referred to [facility] Med P.C.: No
== END 2016-12-17 16:30 | disposition home or self-care (01) | DRG 812 ==
LOC: JER 11:02 → JERBED 14:47 → J6S 18:22
PROVIDERS: ADMIT Internal Medicine; ATTEND Internal Medicine
DX: T40.2X1A Poisoning by other opioids, accidental (unintentional), initial encounter (principal); A41.9 Sepsis, unspecified organism; J69.0 Pneumonitis due to inhalation of food and vomit; F17.210 Nicotine dependence, cigarettes, uncomplicated; G92 Toxic encephalopathy; N17.9 Acute kidney failure, unspecified; E11.65 Type 2 diabetes mellitus with hyperglycemia; Z79.84 Long term (current) use of oral hypoglycemic drugs; Z86.718 Personal history of other venous thrombosis and embolism; Z79.01 Long term (current) use of anticoagulants; Y92.002 Bathroom of unspecified non-institutional (private) residence as the place of occurrence of the external cause; E66.01 Morbid (severe) obesity due to excess calories; Z68.41 Body mass index [BMI] 40.0-44.9, adult; Z71.3 Dietary counseling and surveillance; G44.209 Tension-type headache, unspecified, not intractable
CPT/HCPCS: 36415; 71010-TC; 80048; 80053; 80307; 81003; 81015; 82009; 83036; 83605; 84703; 85025; 85610; 87040; 87324; 87449; 93005; 93010; 99285-25

== ENCOUNTER 2016-12-22 00:34 | Inpatient (IN) | payer OTHER ==
[2016-12-22] MEDS ORDERED: ALBUTEROL SO4 2.5/IPRATROPIUM 0.5 INH SOL 3 ML VIAL.NEB. NEB ONE ×2 (00:57→01:44)
--- NOTE | 2016-12-22 00:59 | PDOC ---
History of Present Illness - General Chief Complaint: Pain Stated Complaint: ABD PAIN/CHEST PAIN Time Seen by Provider: 12/22/16 00:54 History Source: Patient - History of Present Illness Initial Comments: 12/22/16 01:09 Patient is a 46-year-old female with significant past medical history of hypertension, DM, DVT/PE on Lovenox, polysubstance abuse recently admitted and discharged from inpatient (12/18/16) for drug overdose, acute kidney injury, leukocytosis and aspiration pneumonia. Patient the ER today for difficulty breathing, epigastric pain and fever tmax 102 at home) today. Past History - Travel Traveled outside of the country in the last 30 days: Yes Close contact w/someone who was outside of country & ill: No - Past Medical History Allergies/Adverse Reactions: Allergies Allergy/AdvReac Type Severity Reaction Status Date / Time acetaminophen [From Tylenol] AdvReac Mild Verified 12/22/16 00:46 ibuprofen [From Motrin] AdvReac Nausea Verified 12/22/16 00:46 Home Medications: Ambulatory Orders Quetiapine Fumarate [Seroquel -] 200 mg PO HS 08/13/16 Pregabalin [Lyrica] 100 mg PO TID 10/02/16 Enoxaparin [Lovenox -] 110 mg SQ BID #60 syr 12/17/16 Tramadol HCl 50 mg PO QID PRN #30 tablet MDD 4 12/17/16 Nifedipine [Procardia Capsule -] 10 mg PO DAILY 12/22/16 Anemia: No Asthma: No Cancer: No Cardiac Disorders: No CVA: No COPD: No CHF: No DVT: Yes Dementia: No Diabetes: Yes (type 2) GI Disorders: Yes (diarrhea) Disorders: Yes (bladder prolapse) HTN: Yes Hypercholesterolemia: No Kidney Stones: Yes Liver Disease: No Psychiatric Problems: Yes (anxiety depression) Suicide Attempt (Hx): No Seizures: No Thyroid Disease: No - Surgical History Abdominal Surgery: Yes Appendectomy: No Cardiac Surgery: No Cholecystectomy: Yes Lung Surgery: No Neurologic Surgery: No Orthopedic Surgery: No - Immunization History Td Vaccination: Yes Immunization Up to Date: Yes - Psycho/Social/Smoking Cessation Hx Anxiety: Yes Suicidal Ideation: No Smoking Status: No Smoking History: Current every day smoker Have you smoked in the past 12 months: Yes Number of Cigarettes Smoked Daily: 10 Information on smoking cessation initiated: No 'Breaking Loose' booklet given: 11/01/16 Hx Alcohol Use: No Drug/Substance Use Hx: No Substance Use Type: None Hx Substance Use Treatment: Yes (HX OF OPIATE TREATMENT) Review of Systems - Review of Systems Able to Perform ROS?: Yes Is the patient limited [place] proficient: No Constitutional: Yes: Chills, Fever Respiratory: Yes: Cough Cardiac (ROS): No: Chest Pain ABD/GI: Yes: Nausea, Abdominal cramping (epigastric pain), Other (epigastric pain (burning sensation)). No: Symptoms Reported, See HPI, Abdominal Distended , Abd. Pain w/ defecation, Blood Streaked Bowels, Constipated, Diarrhea, Difficulty Swallowing, Poor Appetite, Poor Fluid Intake, Rectal Bleeding, Vomiting, Indigestion, Tarry Stools Neurological: Yes: Headache. No: Symptoms reported, See HPI, Numbness, Paresthesia, Pre-Existing Deficit, Seizure, Tingling, Tremors, Weakness, Unsteady Gait, Ataxia, Dizziness, Other *Physical Exam - Vital Signs Last Vital Signs Temp Pulse Resp BP Pulse Ox 99.3 F 103 H 20 197/110 92 L 12/22/16 00:47 12/22/16 00:47 12/22/16 00:47 12/22/16 00:47 12/22/16 00:47 - Physical Exam General Appearance: Yes: Appropriately Dressed Respiratory/Chest: positive: Decreased Breath Sounds Cardiovascular: positive: Regular Rhythm, Regular Rate Gastrointestinal/Abdominal: positive: Normal Bowel Sounds, Tender (epigastric are), Soft Extremity: positive: Normal Capillary Refill, Normal Inspection, Normal Range of Motion. negative: Tender, Pelvis Stable, Coldness, Cyanosis, Delayed Capillary Refill, Pedal Edema, Swelling, Calf Tenderness, Erythema, Inflammation , Other Integumentary: positive: Erythema ( and abrasions to b/l lower extremity) Neurologic: positive: Fully Oriented, Alert, Normal Mood/Affect Heart Score/ECG Review - History History: Slightly suspicious - Electrocardiogram EKG: Non specific repolarization disturbance - Age Age: </= 45 - Risk Factors Risk Factors Heart Score: Yes Hx Hypertension, Yes Hx Obesity Based on the list above the patient has:: 1-2 risk factors - Troponin Troponin: </= normal limit - Score Heart Score - Total: 2 - ECG Intrepretation Rhythm: Regular Rhythm Comment:: 12/22/16 05:44 sinus tachycardia 103: flattening of T waves aVF compared to EKG on 12/15/2016 ED Treatment Course - LABORATORY CBC & Chemistry Diagram: 12/22/16 01:36 12/22/16 01:36 - RADIOLOGY Chest X-Ray Result: No Infiltrates (official read pending) Medical Decision Making - Medical Decision Making 12/22/16 01:44 A:bronchitis, epigastric pain P: cbc: wbc 15 cmp: cardiac enzyme: wnl check cardiac enzyme x 2 ua chest xray: no infiltrate 12/22/16 05:35 patient is asleep. reports that abdominal pain resolved after zofran. breath sounds clear. 12/22/16 05:45 second troponin and ekg pending 12/22/16 06:15 o2 sat 89-90 % on room air. patient is currently on 95% on 2 L oxygen via nasal cannula 12/22/16 06:34 patient to be admitted. patient signed out to Dr. gomes. *DC/Admit/Observation/Transfer Diagnosis at time of Disposition: Bronchitis, Epigastric abdominal pain, Oxygen desaturation - Discharge Dispostion Admit: Yes - Referrals Referrals: Ann-Marie Oconnor MD [Primary Care Provider] - - Patient Instructions Printed Discharge Instructions: Gastroesophageal Reflux Disease (Alternative Therapy), Acute Bronchitis
--- NOTE | 2016-12-22 01:12 | PDOC ---
*Physical Exam - Vital Signs Last Vital Signs Temp Pulse Resp BP Pulse Ox 99.3 F 103 H 20 197/110 92 L 12/22/16 00:47 12/22/16 00:47 12/22/16 00:47 12/22/16 00:47 12/22/16 00:47 - Physical Exam General Appearance: Yes: Nourished, Appropriately Dressed HEENT: positive: Normal ENT Inspection, Normal Voice Neck: positive: Trachea midline Respiratory/Chest: positive: Other (wheeze and crackle right lung base) Cardiovascular: positive: Regular Rhythm, Regular Rate, Other (reg tachycardia ) Gastrointestinal/Abdominal: positive: Normal Bowel Sounds, Tender, Other ( epigastric ttp. ) Musculoskeletal: positive: Normal Inspection. negative: CVA Tenderness Extremity: positive: Normal Capillary Refill, Normal Inspection Integumentary: positive: Normal Color, Dry, Warm Neurologic: positive: prescription eyeglass maker II-XII NML intact, Fully Oriented, Alert, Normal Mood/ Affect Heart Score/ECG Review #1 General ECG Interpretation: Sinus Rhythm, Normal Rate (sinus tachycardia 103), Normal Intervals, No acute ischemic changes Compared to previous ECG there are: Other (new TWI III, flat AVF compare 12/15/16) - ECG Intrepretation Rhythm: Regular Rhythm ED Treatment Course - RADIOLOGY Radiology Studies Ordered: Category Date Time Status CHEST PA & LAT [RAD] Stat Radiology 12/22/16 00:47 Ordered Medical Decision Making - Medical Decision Making 12/22/16 01:07 46 yo F with ho COPD, pe / dvt on lovenox, and HTN substance abuse, recently admitted from 12/15 through 12/19 for overdose, and treated for aspirational pneumonia. pt here today now with persistant productive cough, epigastric pain. has nausea, no vomiting. was febrile today 102. no urinary complaints. no leg swelling. no other current complaints. no change to stool. taking augmentin from time of discharge. on exam pt awake, drowsy, lung with faint crackle, wheeze right base, heart reg tachycardi, no m/r/g. abd soft obese. epigasric ttp, no rebound no guarding. ext wwp. no edema. differential: persistant pna, uti pyelo, bronchitis, pancreatitis, gastritis , se of augmentin. plan cxr duoneb, labs cultures, fever control reassess. pt seen and examined, case d/w Angelina Chaevs NP agree with plan.
[2016-12-22 01:51] LABS: BASOPHIL 0.6 % (0-2.0); EOSINOPHIL 1.2 % (0-4.5); MCH 28.9 pg (25.7-33.7); MCHC 33.4 g/dl (32.0-36.0); MEAN CELL VOLUME 86.6 fl (80-96); NEUTROPHILS 84.4 % (42.8-82.8); PLATELET COUNT 281 K/MM3 (134-434); RDW 12.9 % (11.6-15.6)
[2016-12-22] MEDS ORDERED: SODIUM CHLORIDE 0.9% 1000 ML INFUS.BAG IV ONE (01:53)
[2016-12-22 01:54] LABS: URINE APPEARANCE CLEAR; URINE BILIRUBIN NEGATIVE (NEGATIVE); URINE BLOOD NEGATIVE (NEGATIVE); URINE COLOR YELLOW; URINE GLUCOSE (UA) 1+ (NEGATIVE); URINE KETONE NEGATIVE (NEGATIVE); URINE LEUK ESTERASE NEGATIVE (NEGATIVE); URINE NITRITE NEGATIVE (NEGATIVE); URINE PROTEIN 1+ (NEGATIVE); URINE UROBILINOGEN NEGATIVE E.U./dl (0.2-1.0)
[2016-12-22 01:55] LABS: URINE HYALINE CAST 3 /lpf; URINE MUCUS FEW; URINE RBC 1 /hpf (0-3); URINE WBC 1 /hpf (3-5)
[2016-12-22] MEDS ORDERED: ONDANSETRON 4 MG/2 ML VIAL ONE (01:58)
[2016-12-22] MEDS ORDERED: ACETAMINOPHEN 325 MG TABLET (FP) PO ONE (04:34)
[2016-12-22] MEDS ORDERED: ACETAMINOPHEN 325 MG TABLET (FP) ONE (04:35)
[2016-12-22 04:36] LABS: ALBUMIN 3.5 g/dl (3.4-5.0); ALK PHOS 69 U/L (45-117); ANION GAP 12 (8-16); BILIRUBIN,TOTAL 0.6 mg/dL (0.2-1.0); CALCIUM 9.2 mg/dL (8.5-10.1); CO2 23 mmol/L (21-32); COCKROFT - GAULT 142.7915; CREATININE 0.9 mg/dL (0.55-1.02); SGPT/ALT 20 U/L (12-78); TOT PROT 7.3 g/dl (6.4-8.2); TROPONIN I < 0.02 ng/ml (0.00-0.05)
[2016-12-22 04:41] LABS: SGOT/AST 26 U/L (15-37)
[2016-12-22 04:42] LABS: GLUCOSE,RANDOM 171 mg/dL (74-106)
[2016-12-22] MEDS ORDERED: LEVOFLOXACIN 250 MG TABLET (FP) PO ONE (05:38)
[2016-12-22] MEDS ORDERED: FAMOTIDINE 20 MG/50 ML IVPB 50 ML IVPB ONE ×2 (05:38→05:58)
[2016-12-22] MEDS ORDERED: LEVOFLOXACIN 500 MG TABLET (FP) ONE (05:57)
[2016-12-22] MEDS ORDERED: LEVOFLOXACIN 750 MG IVPB 150 ML IVPB ONE ×2 (05:58→05:59)
[2016-12-22] MEDS ORDERED: ALBUTEROL SO4 0.083% IH SOL 2.5 MG/3 ML VIAL.NEB. NEB ONE (05:59)
[2016-12-22] MEDS ORDERED: NIFEdipine 10 MG CAPSULE (FP) PO SCH ×2 (06:00→10:00)
[2016-12-22] MEDS ORDERED: NIFEdipine 10 MG CAPSULE (FP) ONE ×2 (06:01→14:45)
[2016-12-22 06:37] LABS: TROPONIN I < 0.02 ng/ml (0.00-0.05)
[2016-12-22] MEDS ORDERED: ONDANSETRON 4 MG/2 ML VIAL IVPB PRN (06:53)
[2016-12-22] MEDS ORDERED: SODIUM CHLORIDE 1,000 ML IV SCH (07:00)
[2016-12-22 07:26] LABS: ARTERIAL BLD GAS O2 SATURATION 98.5 % (90-98.9); ARTERIAL BLOOD GAS BASE EXCESS 1.3 meq/l (-2-2); ARTERIAL BLOOD GAS HCO3 24.6 meq/L (22-26); ARTERIAL BLOOD GAS pH 7.45 (7.35-7.45)
[2016-12-22 07:27] LABS: ALLENS TEST POSITIVE; ART PUNCT SITE RIGHT RADIAL; LPM/O2% 2 LPM; PT. ON O2? YES; TYPE OF O2 N/C
[2016-12-22 07:29] LABS: METHEMOGLOBIN 0.6 % (0.4-1.5)
--- NOTE | 2016-12-22 07:47 | HP ---
CHIEF COMPLAINT: PCP: Dr Arslan Gardner HISTORY OF PRESENT ILLNESS: 46 y/o female presents to ED with c/o dyspnea, cough and sore throat with fever of 102 at home. Patient recently discharged from our facility for drug overdose with aspiration pneumonia. Patient also c/o abdominal pain which is chronic. Patient denies any chest pain, palpitations, nausea, vomiting, dysuria or recent sick contacts. ER course was notable for: (1) Oxygen via 2L NC (2) Levofloxacin (3) Recent Travel: None PAST MEDICAL HISTORY: HTN, DM2, DVT/PE, Polysubstance abuse, anxiety, depression PAST SURGICAL HISTORY: Cholectstectomy Social History: Smoking: none Alcohol:none Drugs: Marijuana Family History: Allergies acetaminophen [From Tylenol] Adverse Reaction (Mild, Verified 12/22/16 00:46) upset stomach ibuprofen [From Motrin] Adverse Reaction (Verified 12/22/16 00:46) Nausea HOME MEDICATIONS: Home Medications Medication Instructions Recorded Quetiapine Fumarate [Seroquel -] 200 mg PO HS 08/13/16 Pregabalin [Lyrica] 100 mg PO TID 10/02/16 Enoxaparin [Lovenox -] 110 mg SQ BID #60 syr 12/17/16 Tramadol HCl 50 mg PO QID PRN #30 tablet MDD 4 12/17/16 Nifedipine [Procardia Capsule -] 10 mg PO DAILY 12/22/16 REVIEW OF SYSTEMS CONSTITUTIONAL: Absent: fever, chills, diaphoresis, generalized weakness, malaise, loss of appetite, weight change HEENT: rhinorrhea,throat pain Absent: nasal congestion, throat swelling, difficulty swallowing, mouth swelling, ear pain, eye pain, visual changes CARDIOVASCULAR: Absent: chest pain, syncope, palpitations, irregular heart rate, lightheadedness , peripheral edema RESPIRATORY: Absent: cough, shortness of breath, dyspnea with exertion, orthopnea, wheezing, stridor, hemoptysis GASTROINTESTINAL: Absent: abdominal pain, abdominal distension, nausea, vomiting, diarrhea, constipation, melena, hematochezia GENITOURINARY: Absent: dysuria, frequency, urgency, hesitancy, hematuria, flank pain, genital pain MUSCULOSKELETAL: Absent: myalgia, arthralgia, joint swelling, back pain, neck pain SKIN: Absent: rash, itching, pallor HEMATOLOGIC/IMMUNOLOGIC: Absent: easy bleeding, easy bruising, lymphadenopathy, frequent infections ENDOCRINE: Absent: unexplained weight gain, unexplained weight loss, heat intolerance, cold intolerance NEUROLOGIC: Absent: headache, focal weakness or paresthesias, dizziness, unsteady gait, seizure, mental status changes, bladder or bowel incontinence PSYCHIATRIC: Absent: anxiety, depression, suicidal or homicidal ideation, hallucinations. PHYSICAL EXAMINATION Vital Signs - 24 hr 12/22/16 06:49 O2 Sat by Pulse 94 L Oximetry (%) GENERAL: Awake, alert, and fully oriented, in no acute distress. HEAD: Normal with no signs of trauma. EYES: Pupils equal, round and reactive to light, extraocular movements intact, sclera anicteric, conjunctiva clear. No lid lag. EARS, NOSE, THROAT: Ears normal, nares patent, oropharynx clear without exudates. Moist mucous membranes. NECK: Normal range of motion, supple without lymphadenopathy, JVD, or masses. LUNGS: Breath sounds slightly decreased on left side, clear to auscultation bilaterally. No wheezes, and no crackles. No accessory muscle use. HEART: Regular rate and rhythm, normal S1 and S2 without murmur, rub or gallop. ABDOMEN: Soft, nontender, not distended, normoactive bowel sounds, no guarding, no rebound, no masses. No hepatomegaly or splenomegaly. MUSCULOSKELETAL: Normal range of motion at all joints. No bony deformities or tenderness. No CVA tenderness. UPPER EXTREMITIES: 2+ pulses, warm, well-perfused. No cyanosis. No clubbing. No peripheral edema. LOWER EXTREMITIES: 2+ pulses, warm, well-perfused. No calf tenderness. No peripheral edema. NEUROLOGICAL: Cranial nerves II-XII intact. Normal speech. Normal gait. PSYCHIATRIC: Cooperative. Good eye contact. Appropriate mood and affect. SKIN: Warm, dry, normal turgor, no rashes or lesions noted, normal capillary refill. Laboratory Results - last 24 hr 12/22/16 12/22/16 07:05 07:05 Puncture Site Right radial ABG pH 7.45 ABG pCO2 at Pt Temp 36.3 ABG pO2 at Pt Temp 104.0 H D ABG HCO3 24.6 ABG O2 Sat (Measured) 98.5 ABG O2 Content 18.4 ABG Base Excess 1.3 Jose M Test Positive Carboxyhemoglobin 2.1 H Methemoglobin 0.6 O2 Delivery Device N/c Oxygen Flow Rate 2 lpm PEEP 0.0 ASSESSMENT/PLAN: SEPSIS secondary to HAP ( hospital acquired pneumonia) with low risk for MRSA with acute hypoxic respiratory failure. 3 L O2 via NC IVF NS 125cc/h Levofloxacin 750mg ivpb daily Albuterol prn continue home medications ABG Dvt prophylaxis Abdominal pain Tramadol prn DM2 RISS FS ACHS HTN Problem List - Problem (1) Acute respiratory failure with hypoxia Code(s): J96.01 - ACUTE RESPIRATORY FAILURE WITH HYPOXIA (2) Sepsis Code(s): A41.9 - SEPSIS, UNSPECIFIED ORGANISM (3) HAP (hospital-acquired pneumonia) Code(s): J18.9 - PNEUMONIA, UNSPECIFIED ORGANISM (4) Epigastric abdominal pain Code(s): R10.13 - EPIGASTRIC PAIN (5) Diabetic neuropathy associated with type 2 diabetes mellitus Code(s): E11.40 - TYPE 2 DIABETES MELLITUS WITH DIABETIC NEUROPATHY, UNSP Qualifiers: Diabetes mellitus complication detail: diabetic polyneuropathy Qualified Code(s): E11.42 - Type 2 diabetes mellitus with diabetic polyneuropathy Visit type - Emergency Visit Emergency Visit: Yes ED Registration Date: 12/22/16 Care time: The patient presented to the Emergency Department on the above date and was hospitalized for further evaluation of their emergent condition. - New Patient This patient is new to me today: Yes Date on this admission: 12/22/16 - Critical Care Critical Care patient: No
[2016-12-22] MEDS ORDERED: ALBUTEROL SO4 2.5/IPRATROPIUM 0.5 INH SOL 3 ML VIAL.NEB. NEB PRN (07:50)
[2016-12-22] MEDS ORDERED: traMADol HCL 50 MG TABLET PO PRN (08:03)
[2016-12-22] MEDS ORDERED: ENOXAPARIN NA (PORCINE) 120 MG/0.8 ML DISP.SYRIN SQ SCH ×2 (10:00→22:00)
[2016-12-22] MEDS ORDERED: LEVOFLOXACIN 500 MG IVPB 100 ML IVPB SCH (10:00)
[2016-12-22] MEDS ORDERED: HEPARIN NA (PORCINE) 5,000 UNITS/ML 1ML VIAL SQ SCH (10:00)
--- NOTE | 2016-12-22 10:00 | EKG ---
Test Reason : Blood Pressure : / mmHG Vent. Rate : 103 BPM Atrial Rate : 103 BPM P-R Int : 126 ms QRS Dur : 098 ms QT Int : 366 ms P-R-T Axes : 013 068 020 degrees QTc Int : 479 ms SINUS TACHYCARDIA POOR R WAVE PROGRESSION WHEN COMPARED WITH ECG OF 15-DEC-2016 11:28, NO SIGNIFICANT CHANGE WAS FOUND Confirmed by SURESH LOZANO MD ([id number]) on 12/22/2016 10:00:32 AM Referred By: Confirmed By:SURESH LOZANO MD
--- NOTE | 2016-12-22 12:38 | PN ---
Physical Exam: SUBJECTIVE: Patient seen and examined by me at bedside. Patient reports she has moderate sinus pressure with sore throat and productive cough with nonbloody white sputum. She states the cough has been happening the last week and has not gotten better since her last discharge and worsened to the point where she had difficulty breathing, which prompted her to return to the hospital. Otherwise, patient currently denies fever, chills, nausea, vomiting, abdominal pain, chest pain, shortness of breath. OBJECTIVE: Vital Signs Period Temp Pulse Resp BP Sys/Puente Pulse Ox Last 24 Hr 106 20 156/102 94-96 GENERAL: The patient is awake, alert, and fully oriented, in no acute distress. LUNGS: Decreased breath sounds bilaterally R>L, no wheezes, no crackles, no accessory muscle use. HEART: Regular rate and rhythm, normal S1 and S2 without murmur, rub or gallop. ABDOMEN: Soft, Obese, nontender, nondistended, normoactive bowel sounds, no guarding, no rebound EXTREMITIES: No peripheral edema. NEUROLOGICAL: Normal Speech. No facial droop Laboratory Results - last 24 hr 12/22/16 12/22/16 12/22/16 07:05 07:05 10:25 Puncture Site Right radial ABG pH 7.45 ABG pCO2 at Pt Temp 36.3 ABG pO2 at Pt Temp 104.0 H D ABG HCO3 24.6 ABG O2 Sat (Measured) 98.5 ABG O2 Content 18.4 ABG Base Excess 1.3 Jose M Test Positive Carboxyhemoglobin 2.1 H Methemoglobin 0.6 O2 Delivery Device N/c Oxygen Flow Rate 2 lpm PEEP 0.0 Troponin I < 0.02 Active Medications Generic Name Dose Route Start Last Admin Trade Name Freq PRN Reason Stop Dose Admin Albuterol/Ipratropium 1 amp 12/22/16 07:50 Duoneb - NEB Q6H PRN SHORTNESS OF BREATH Enoxaparin Sodium 110 mg 12/22/16 10:00 12/22/16 10:50 Lovenox - SQ 110 mg BID NI Administration Sodium Chloride 1,000 mls @ 125 mls/hr 12/22/16 07:00 12/22/16 07:58 Normal Saline - IV 125 mls/hr ASDIR NI Administration Levofloxacin 150 mls @ 100 mls/hr 12/23/16 10:00 Levaquin 750 Mg Premixed Ivpb - IVPB DAILY [facility] Insulin Aspart 1 vial 12/22/16 11:00 Novolog Vial Sliding Scale - SQ ACHS [facility] Protocol Nifedipine 10 mg 12/22/16 06:00 12/22/16 06:11 Procardia Capsule - PO 10 mg TID NI Administration Nifedipine 10 mg 12/22/16 10:00 Procardia Capsule - PO DAILY NI Ondansetron HCl 4 mg 12/22/16 06:53 Zofran Injection IVPB Q6H PRN NAUSEA Pregabalin 100 mg 12/22/16 14:00 Lyrica - PO TID NI Quetiapine Fumarate 200 mg 12/22/16 22:00 Seroquel - PO HS NI Tramadol HCl 50 mg 12/22/16 08:03 Ultram - PO Q6H PRN PAIN ASSESSMENT/PLAN: Patient is a 46 year old female with a PMHx of HTN, NIDDMII, DVT/PE on Lovenox, and polysubstance abuse who was recently discharged (12/17/16) for drug intoxication and possible Aspiration pneumonia. Patient returns complaining of worsening productive cough and sinus congestion. Patient admitted for possible sepsis from hospital acquired pneumonia for further monitoring and management. SIRS with Tachycardia, Leukocytosis and Hypoxia- Resolving -Likely secondary to Hospital Acquired Pneumonia vs. Acute Bronchitis vs. Acute Sinusitis -Recent discharge from this hospital on 12/17/16 -Tachycardic with leukocytosis -Initial oxygen saturations in the high 80's to low 90's -Chest X-Ray negative for acute pathology -lactic Acid wnl -Continue 02 PRN -Low risk for MRSA -Continue Levaquin 750mg IV daily. Will need a total of 10 day treatment -Continue IV NS @125mls/hr Cough and Sinus Congestion -Possibly secondary to Viral/bacterial bronchitis vs. HAP -DuoNeb PRN -02 PRN -Robitussin DM for cough -[place] for Sinus congestion 2 sprays BID PRN HTN-Controlled -Called Pharmacy and confirmed -Continue Lisinopril 20mg daily -Continue Losartan 50mg daily -Continue to monitor BP NIDDMII -Insulin Sliding SCALE -BGM History of DVT/PE w/ IVC Filter -Continue Lovenox 110mg BID Anxiety/Depression -Continue Seroquel 200mg HS -Continue Trazadone 100mg HS F/E/N -On IV NS @125mls/hr -Electrolytes wnl -Sodium controlled diet Prophylaxis -Lovenox 110mg BID for DVT Disposition -Possible Hospital Acquired pneumonia. Will continue Antibiotics and monitor for 24 hours. Discharge anticipated for tomorrow. Visit type - Emergency Visit Emergency Visit: Yes ED Registration Date: 12/22/16 Care time: The patient presented to the Emergency Department on the above date and was hospitalized for further evaluation of their emergent condition. - New Patient This patient is new to me today: Yes Date on this admission: 12/22/16 - Critical Care Critical Care patient: No
[2016-12-22] MEDS: INSULIN SLIDING SCALE (NOVOLOG) 1 VIAL SQ SCH ×3 (12:49→21:39)
[2016-12-22] MEDS ORDERED: PREGABALIN 100 MG CAPSULE PO SCH (14:00)
--- NOTE | 2016-12-22 14:06 | PN ---
Teaching Attending Note Name of Resident: Oly Wade ATTENDING PHYSICIAN STATEMENT I saw and evaluated the patient. I reviewed the resident's note and discussed the case with the resident. I agree with the resident's findings and plan as documented. SUBJECTIVE: Patient complains of cough and sinus pressure. OBJECTIVE: Vital Signs Period Temp Pulse Resp BP Sys/Puente Pulse Ox Last 24 Hr 98.0 F-99.3 F 82-106 16-20 156-197/101-110 92-96 HEART: S1 S2, tachycardic LUNGS: Clear ABDOMEN: Obese, soft, non-tender, non-distended, normal BS EXTREMITIES: No edema ASSESSMENT AND PLAN: This is a 46-year-old woman with a history of HTN, type 2 DM, DVT, PE, anxiety, depression, polysubstance abuse who presented to the ER with fever, cough, sore throat and shortness of breath. 1. Sepsis, secondary to acute bronchitis and acute sinusitis - Continue Levaquin, DuoNeb as needed, oxygen - Follow up blood cultures 2. HTN - Continue Lisinopril 3. Type 2 DM - Continue Novolog sliding scale 4. History of DVT and PE - Continue Lovenox 5. Anxiety and depression - Continue Seroquel, Trazodone 6. History of polysubstance abuse
[2016-12-22] MEDS ORDERED: guaiFENesin/D-METHORPHAN HB 10 ML UNIT-DOSE CUPS PO PRN (14:07)
[2016-12-22] MEDS ORDERED: SODIUM CHLORIDE NASAL SPRAY 44 ML BOTTLE NS PRN (14:10)
[2016-12-22 14:20] VITALS: BMI 40.3
[2016-12-22] MEDS ORDERED: PREGABALIN 100 MG CAPSULE ONE (14:45)
[2016-12-22] MEDS ORDERED: guaiFENesin/D-METHORPHAN HB 10 ML UNIT-DOSE CUPS ONE (19:00)
[2016-12-22] MEDS ORDERED: ENOXAPARIN NA (PORCINE) 80 MG/0.8 ML DISP.SYRIN SQ ONE (20:45)
[2016-12-22] MEDS ORDERED: ENOXAPARIN NA (PORCINE) 30 MG/0.3 ML DISP.SYRIN SQ ONE (20:45)
[2016-12-22] MEDS: SODIUM CHLORIDE 1,000 ML IV SCH (21:35)
[2016-12-22] MEDS: traZODone HCL 50 MG TABLET (FP) PO SCH (21:36)
[2016-12-22] MEDS: PREGABALIN 100 MG CAPSULE PO SCH (21:37)
[2016-12-22] MEDS: ENOXAPARIN 30 MG, ENOXAPARIN 80 MG SQ SCH (21:37)
[2016-12-22] MEDS: SODIUM CHLORIDE NASAL SPRAY 44 ML BOTTLE NS PRN (21:41)
[2016-12-22] MEDS ORDERED: traZODone HCL 50 MG TABLET (FP) PO SCH (22:00)
[2016-12-22] MEDS ORDERED: QUEtiapine FUMARATE 200 MG TABLET PO SCH ×2 (22:00)
[2016-12-23] MEDS: INSULIN SLIDING SCALE (NOVOLOG) 1 VIAL SQ SCH ×4 (06:21→21:32)
[2016-12-23] MEDS: guaiFENesin/D-METHORPHAN HB 10 ML UNIT-DOSE CUPS PO PRN ×2 (06:23→16:45)
[2016-12-23] MEDS: PREGABALIN 100 MG CAPSULE PO SCH ×3 (06:23→21:32)
[2016-12-23 07:01] LABS: MCH 29.4 pg (25.7-33.7); MCHC 33.6 g/dl (32.0-36.0); MEAN CELL VOLUME 87.6 fl (80-96); MEAN PLT VOLUME 8.6 fl (7.5-11.1); PLATELET COUNT 234 K/MM3 (134-434); WHITE BLOOD COUNT 13.1 K/mm3 (4.0-10.0)
[2016-12-23 07:22] LABS: CALCIUM 8.7 mg/dL (8.5-10.1); COCKROFT - GAULT 183.5915; CREATININE 0.7 mg/dL (0.55-1.02)
[2016-12-23] MEDS ORDERED: POTASSIUM CHLORIDE TABS 20 MEQ TABLET.ER (FP) PO ONE ×2 (07:46→12:43)
--- NOTE | 2016-12-23 08:25 | PN ---
Physical Exam: SUBJECTIVE: Patient seen and examined by me at bedside. Patient had one episode of nonbloody vomitous this morning. She still complains of sinus congestion/pressure and cough despite medications. Explained to the patient that I will be giving her medications to help alleviate or improve the symptoms. She also reports feeling weaker. Otherwise, patient denies abdominal pain, chest pain, shortness of breath, palpitations, hematuria, vaginal bleeding , hematochezia, melena. OBJECTIVE: Vital Signs Period Temp Pulse Resp BP Sys/Puente Pulse Ox Last 24 Hr 98 F-99.3 F 100-108 18-22 152-164/90-102 95-99 GENERAL: The patient is awake, alert, and fully oriented, in no acute distress. HEENT: Rhinorrhea, with sinus tenderness. LUNGS: CTA bilaterally, no wheezes, no crackles, no accessory muscle use. HEART: Tachycardic with regular rhythm, normal S1 and S2 without murmur, rub or gallop. ABDOMEN: Soft, Obese, nontender, nondistended, normoactive bowel sounds, no guarding, no rebound EXTREMITIES: No peripheral edema. NEUROLOGICAL: Normal Speech. No facial droop Laboratory Results - last 24 hr 12/22/16 12/22/16 12/23/16 10:25 21:39 06:20 WBC 13.1 H RBC 4.36 Hgb 12.8 Hct 38.2 MCV 87.6 MCHC 33.6 RDW 13.0 Plt Count 234 MPV 8.6 Sodium Potassium Chloride Carbon Dioxide Anion Gap BUN Creatinine POC Glucometer 126 Random Glucose Calcium Troponin I < 0.02 12/23/16 12/23/16 06:20 06:21 WBC RBC Hgb Hct MCV MCHC RDW Plt Count MPV Sodium 144 Potassium 3.2 L D Chloride 108 H Carbon Dioxide 29 D Anion Gap 7 L BUN 14 D Creatinine 0.7 D POC Glucometer 109 Random Glucose 115 H D Calcium 8.7 Troponin I Active Medications Generic Name Dose Route Start Last Admin Trade Name Freq PRN Reason Stop Dose Admin Albuterol/Ipratropium 1 amp 12/22/16 20:27 Duoneb - NEB Q6H PRN SHORTNESS OF BREATH Enoxaparin Sodium 30 mg/ 110 mg 12/22/16 22:00 12/22/16 21:37 Enoxaparin Sodium 80 mg SQ 110 mg BID NI Administration Guaifenesin 10 ml 12/22/16 20:27 12/23/16 06:23 Robitussin Dm - PO 10 ml Q8H PRN Administration COUGH Levofloxacin 150 mls @ 100 mls/hr 12/23/16 10:00 Levaquin 750 Mg Premixed Ivpb - IVPB DAILY NI Sodium Chloride 1,000 mls @ 125 mls/hr 12/22/16 20:27 12/22/16 21:35 Normal Saline - IV 125 mls/hr ASDIR NI Administration Insulin Aspart 1 vial 12/22/16 22:00 12/23/16 06:21 Novolog Vial Sliding Scale - SQ Not Given ACHS [facility] Protocol Lisinopril 20 mg 12/23/16 10:00 Prinivil PO DAILY [facility] Losartan Potassium 50 mg 12/23/16 10:00 Cozaar - PO DAILY NI Ondansetron HCl 4 mg 12/22/16 20:27 Zofran Injection IVPB Q6H PRN NAUSEA Pregabalin 100 mg 12/22/16 22:00 12/23/16 06:23 Lyrica - PO 100 mg TID NI Administration Quetiapine Fumarate 25 mg 12/23/16 03:06 Seroquel - PO HS NI Sodium Chloride 2 spray 12/22/16 20:27 12/22/16 21:41 [place] Nasal [place] - NS 2 sprays BID PRN Administration NASAL CONGESTION Tramadol HCl 50 mg 12/22/16 20:27 Ultram - PO Q6H PRN PAIN Trazodone HCl 100 mg 12/22/16 22:00 12/22/16 21:36 Desyrel - PO 100 mg HS NI Administration CHEST X-RAY (12/23/16): Negative for pneumonia, pleural effusions, pneumothorax , atelectasis. ASSESSMENT/PLAN: Patient is a 46 year old female with a PMHx of HTN, NIDDMII, DVT/PE on Lovenox, and polysubstance abuse who was recently discharged (12/17/16) for drug intoxication and possible Aspiration pneumonia. Patient returns complaining of worsening productive cough and sinus congestion. Patient admitted for possible sepsis from hospital acquired pneumonia for further monitoring and management. Sepsis secondaey ro Acute Bronchitis vs. Acute Sinusitis- Resolving -Recent discharge from this hospital on 12/17/16 -Chest X-Ray negative for pneumonia or any other acute pathology -Continue 02 PRN -DuoNeb PRN -Robitussin DM for cough -[place] for Sinus congestion 2 sprays BID PRN -Sudafed 60mg PO ordered -Continue Levaquin 750mg IV daily Day #2. Will need a total of 10 day treatment -Continue IV NS @125mls/hr Hypokalemia -Likely secondary to nausea and vomiting -Today 3.2 -Potassium chloride 40meq PO ordered but patient vomited right after -Potassium chloride 10meq IV x3 bags ordered -Zofran 4mg PO ordered -Monitor BMP HTN-Controlled -Called Pharmacy and confirmed -Continue Lisinopril 20mg daily -Continue Losartan 50mg daily -Continue to monitor BP NIDDMII -Insulin Sliding SCALE -BGM History of DVT/PE w/ IVC Filter -Continue Lovenox 110mg BID Anxiety/Depression -Continue Seroquel 200mg HS -Continue Trazadone 100mg HS F/E/N -On IV NS @125mls/hr -Electrolytes wnl -Sodium controlled diet Prophylaxis -Lovenox 110mg BID for DVT Disposition -Will continue Antibiotics and monitor Visit type - Emergency Visit Emergency Visit: Yes ED Registration Date: 12/22/16 Care time: The patient presented to the Emergency Department on the above date and was hospitalized for further evaluation of their emergent condition. - New Patient This patient is new to me today: No - Critical Care Critical Care patient: No
--- NOTE | 2016-12-23 09:03 | PN ---
Teaching Attending Note Name of Resident: Oly Wade ATTENDING PHYSICIAN STATEMENT I saw and evaluated the patient. I reviewed the resident's note and discussed the case with the resident. I agree with the resident's findings and plan as documented. SUBJECTIVE: Patient complains of nausea, vomiting, weakness. OBJECTIVE: Vital Signs Period Temp Pulse Resp BP Sys/Puente Pulse Ox Last 24 Hr 98 F-99.3 F 100-108 18-22 152-164/90-102 95-99 HEART: S1 S2, tachycardic LUNGS: Clear ABDOMEN: Obese, soft, non-tender, non-distended, normal BS EXTREMITIES: No edema ASSESSMENT AND PLAN: This is a 46-year-old woman with a history of HTN, type 2 DM, DVT, PE, anxiety, depression, polysubstance abuse who presented to the ER with fever, cough, sore throat and shortness of breath. 1. Sepsis, secondary to acute bronchitis and acute sinusitis - Afebrile but remains tachycardic, WBC improving - Continue Levaquin, DuoNeb as needed, oxygen - Follow up blood cultures 2. Hypokalemia - Replete potassium 3. HTN - Continue Lisinopril - Discontinue Cozaar 4. Type 2 DM - Continue Novolog sliding scale 5. History of DVT and PE - Continue Lovenox 6. Anxiety and depression - Continue Seroquel, Trazodone 7. History of polysubstance abuse
[2016-12-23] MEDS ORDERED: PSEUDOEPHEDRINE HCL 60 MG TABLET PO ONE (09:19)
[2016-12-23] MEDS ORDERED: ONDANSETRON 4 MG TABLET PO PRN (09:26)
[2016-12-23] MEDS ORDERED: ENOXAPARIN NA (PORCINE) 30 MG/0.3 ML DISP.SYRIN SQ ONE ×2 (09:39→21:18)
[2016-12-23] MEDS ORDERED: ENOXAPARIN NA (PORCINE) 80 MG/0.8 ML DISP.SYRIN SQ ONE ×2 (09:39→21:18)
[2016-12-23] MEDS: LEVOFLOXACIN 750 MG IVPB 150 ML IVPB SCH (09:43)
[2016-12-23] MEDS: ENOXAPARIN 30 MG, ENOXAPARIN 80 MG SQ SCH ×2 (09:43→21:29)
[2016-12-23] MEDS ORDERED: LOSARTAN POTASSIUM 50 MG TABLET (FP) PO SCH ×2 (10:00)
[2016-12-23] MEDS ORDERED: LEVOFLOXACIN 750 MG IVPB 150 ML IVPB SCH (10:00)
[2016-12-23] MEDS ORDERED: LISINOPRIL 20 MG TABLET (FP) PO SCH ×2 (10:00)
[2016-12-23] MEDS: KCL 10 MEQ IVPB 100 ML IVPB SCH ×2 (10:54→13:19)
--- NOTE | 2016-12-23 15:38 | EKG ---
Test Reason : Blood Pressure : / mmHG Vent. Rate : 108 BPM Atrial Rate : 108 BPM P-R Int : 178 ms QRS Dur : 098 ms QT Int : 364 ms P-R-T Axes : 012 080 030 degrees QTc Int : 487 ms SINUS TACHYCARDIA OTHERWISE NORMAL ECG WHEN COMPARED WITH ECG OF 22-DEC-2016 00:44, NO SIGNIFICANT CHANGE WAS FOUND Confirmed by CORA MILLAN MD ([id number]) on 12/23/2016 3:37:49 PM Referred By: Confirmed By:CORA MILLAN MD
[2016-12-23] MEDS: SODIUM CHLORIDE NASAL SPRAY 44 ML BOTTLE NS PRN (16:27)
[2016-12-23] MEDS ORDERED: PT OWN MED DRAWER 7, Y5N ONE ×2 (16:27→17:42)
[2016-12-23] MEDS: SODIUM CHLORIDE 1,000 ML IV SCH ×2 (16:41→21:28)
[2016-12-23] MEDS: QUEtiapine FUMARATE 25 MG TABLET (FP) PO SCH (21:32)
[2016-12-23] MEDS: traZODone HCL 50 MG TABLET (FP) PO SCH (21:32)
[2016-12-23] MEDS: ALBUTEROL SO4 2.5/IPRATROPIUM 0.5 INH SOL 3 ML VIAL.NEB. NEB PRN (22:50)
[2016-12-24] MEDS: SODIUM CHLORIDE 1,000 ML IV SCH ×3 (00:48→09:34)
[2016-12-24] MEDS: PREGABALIN 100 MG CAPSULE PO SCH ×3 (06:03→21:27)
[2016-12-24] MEDS: INSULIN SLIDING SCALE (NOVOLOG) 1 VIAL SQ SCH ×4 (06:03→21:27)
[2016-12-24] MEDS ORDERED: INSULIN (NOVOLOG) ASPART 100 UNITS/ML 10ML VIAL ONE (06:16)
[2016-12-24] MEDS: traMADol HCL 50 MG TABLET PO PRN ×2 (07:50→18:36)
[2016-12-24] MEDS: ONDANSETRON 4 MG/2 ML VIAL IVPB PRN (07:50)
[2016-12-24 08:40] LABS: BASOPHIL 0.5 % (0-2.0); EOSINOPHIL 3.7 % (0-4.5); MCH 29.6 pg (25.7-33.7); MCHC 34.2 g/dl (32.0-36.0); MEAN CELL VOLUME 86.7 fl (80-96); MEAN PLT VOLUME 8.2 fl (7.5-11.1); NEUTROPHILS 73.8 % (42.8-82.8); PLATELET COUNT 247 K/MM3 (134-434); RDW 12.9 % (11.6-15.6); WHITE BLOOD COUNT 9.9 K/mm3 (4.0-10.0)
[2016-12-24 09:11] LABS: CALCIUM 8.7 mg/dL (8.5-10.1); COCKROFT - GAULT 183.5915; CREATININE 0.7 mg/dL (0.55-1.02)
[2016-12-24] MEDS ORDERED: cloNIDine HCL 0.1 MG TABLET PO ONE (09:17)
[2016-12-24] MEDS ORDERED: POTASSIUM CHLORIDE TABS 20 MEQ TABLET.ER (FP) PO ONE (09:21)
--- NOTE | 2016-12-24 09:23 | PN ---
Physical Exam: SUBJECTIVE: Patient seen and examined. She complains of epigastric pain and vomiting. Vomitus was dark brown. OBJECTIVE: Vital Signs Period Temp Pulse Resp BP Sys/Puente Pulse Ox Last 24 Hr 98.6 F-98.8 F 97-113 20-22 145-157/87-92 GENERAL: The patient is awake, alert, and fully oriented, in no acute distress. LUNGS: Breath sounds equal, clear to auscultation bilaterally, no wheezes, no crackles, no accessory muscle use. HEART: Regular rhythm, tachycardic, S1, S2 without murmur, rub or gallop. ABDOMEN: Obese, soft, nontender, nondistended, normoactive bowel sounds, no guarding, no rebound, no hepatosplenomegaly, no masses. EXTREMITIES: 2+ pulses, warm, well-perfused, no edema. Laboratory Results - last 24 hr 12/23/16 12/23/16 12/23/16 11:21 16:46 20:51 WBC RBC Hgb Hct MCV MCHC RDW Plt Count MPV Neutrophils % Lymphocytes % Monocytes % Eosinophils % Basophils % POC Glucometer 161 97 104 12/24/16 12/24/16 05:27 08:15 WBC 9.9 RBC 4.40 Hgb 13.0 Hct 38.1 MCV 86.7 MCHC 34.2 RDW 12.9 Plt Count 247 MPV 8.2 Neutrophils % 73.8 Lymphocytes % 13.2 D Monocytes % 8.8 D Eosinophils % 3.7 D Basophils % 0.5 POC Glucometer 107 Active Medications Generic Name Dose Route Start Last Admin Trade Name Freq PRN Reason Stop Dose Admin Albuterol/Ipratropium 1 amp 12/22/16 20:27 12/23/16 22:50 Duoneb - NEB 1 amp Q6H PRN Administration SHORTNESS OF BREATH Enoxaparin Sodium 30 mg/ 110 mg 12/22/16 22:00 12/23/16 21:29 Enoxaparin Sodium 80 mg SQ 110 mg BID NI Administration Guaifenesin 10 ml 12/22/16 20:27 12/23/16 16:45 Robitussin Dm - PO 10 ml Q8H PRN Administration COUGH Levofloxacin 150 mls @ 100 mls/hr 12/23/16 10:00 12/23/16 09:43 Levaquin 750 Mg Premixed Ivpb - IVPB 100 mls/hr DAILY NI Administration Sodium Chloride 1,000 mls @ 125 mls/hr 12/22/16 20:27 12/24/16 07:52 Normal Saline - IV 125 mls/hr ASDIR NI Administration Insulin Aspart 1 vial 12/22/16 22:00 12/24/16 06:03 Novolog Vial Sliding Scale - SQ Not Given ACHS NI Protocol Lisinopril 20 mg 12/23/16 10:00 12/23/16 09:43 Prinivil PO 20 mg DAILY NI Administration Losartan Potassium 50 mg 12/23/16 10:00 12/23/16 09:43 Cozaar - PO 50 mg DAILY NI Administration Ondansetron HCl 4 mg 12/22/16 20:27 12/24/16 07:50 Zofran Injection IVPB 4 mg Q6H PRN Administration NAUSEA Ondansetron HCl 4 mg 12/23/16 09:26 Zofran - PO Q8H PRN NAUSEA AND/OR VOMITING Pregabalin 100 mg 12/22/16 22:00 12/24/16 06:03 Lyrica - PO 100 mg TID NI Administration Quetiapine Fumarate 25 mg 12/23/16 03:06 12/23/16 21:32 Seroquel - PO 25 mg HS NI Administration Sodium Chloride 2 spray 12/22/16 20:27 12/23/16 16:27 [place] Nasal [place] - NS 2 sprays BID PRN Administration NASAL CONGESTION Tramadol HCl 50 mg 12/22/16 20:27 12/24/16 07:50 Ultram - PO 50 mg Q6H PRN Administration PAIN Trazodone HCl 100 mg 12/22/16 22:00 12/23/16 21:32 Desyrel - PO 100 mg HS NI Administration ASSESSMENT/PLAN: This is a 46-year-old woman with a history of HTN, type 2 DM, DVT, PE, anxiety, depression, polysubstance abuse who presented to the ER with fever, cough, sore throat and shortness of breath. 1. Sepsis, secondary to acute bronchitis and acute sinusitis - Continue Levaquin, DuoNeb as needed, oxygen - Blood cultures negative 2. HTN, uncontrolled - Clonidine 0.1 mg x 1 now - Increase Lisinopril - Discontinue Cozaar - Start Norvasc 3. Hypokalemia - Secondary to vomiting - Continue to replete potassium - Check magnesium 4. Nausea and vomiting - Continue Zofran as needed - Continue IV fluid - decrease rate secondary to HTN - Patient reports vomiting blood/coffee grounds - Hemoglobin is stable 5. Type 2 DM - Continue Novolog sliding scale 6. History of DVT and PE - Continue Lovenox 7. Anxiety and depression - Continue Seroquel, Trazodone 8. History of polysubstance abuse Visit type - Emergency Visit Emergency Visit: Yes ED Registration Date: 12/22/16 Care time: The patient presented to the Emergency Department on the above date and was hospitalized for further evaluation of their emergent condition. - New Patient This patient is new to me today: No - Critical Care Critical Care patient: No - Discharge Referral Referred to [facility] No
[2016-12-24] MEDS ORDERED: ENOXAPARIN NA (PORCINE) 30 MG/0.3 ML DISP.SYRIN SQ ONE ×2 (09:26→21:08)
[2016-12-24] MEDS ORDERED: ENOXAPARIN NA (PORCINE) 80 MG/0.8 ML DISP.SYRIN SQ ONE ×2 (09:26→21:09)
[2016-12-24] MEDS: LEVOFLOXACIN 750 MG IVPB 150 ML IVPB SCH (09:30)
[2016-12-24] MEDS: ENOXAPARIN 30 MG, ENOXAPARIN 80 MG SQ SCH ×2 (09:30→21:26)
[2016-12-24] MEDS: LISINOPRIL 20 MG TABLET (FP) PO SCH (09:36)
[2016-12-24] MEDS: amLODIPine BESYLATE 5 MG TABLET (FP) PO SCH (09:36)
[2016-12-24] MEDS: traZODone HCL 50 MG TABLET (FP) PO SCH (21:26)
[2016-12-24] MEDS: QUEtiapine FUMARATE 25 MG TABLET (FP) PO SCH (21:27)
[2016-12-24] MEDS: ALBUTEROL SO4 2.5/IPRATROPIUM 0.5 INH SOL 3 ML VIAL.NEB. NEB PRN (21:47)
[2016-12-25] MEDS: SODIUM CHLORIDE 1,000 ML IV SCH ×2 (00:24→09:05)
[2016-12-25] MEDS: INSULIN SLIDING SCALE (NOVOLOG) 1 VIAL SQ SCH ×4 (06:26→21:55)
[2016-12-25] MEDS: PREGABALIN 100 MG CAPSULE PO SCH ×3 (06:26→21:54)
[2016-12-25] MEDS: ALBUTEROL SO4 2.5/IPRATROPIUM 0.5 INH SOL 3 ML VIAL.NEB. NEB PRN ×2 (07:21→20:20)
[2016-12-25 07:50] LABS: CALCIUM 8.9 mg/dL (8.5-10.1); COCKROFT - GAULT 183.5915; CREATININE 0.7 mg/dL (0.55-1.02)
[2016-12-25 08:07] LABS: MCH 29.6 pg (25.7-33.7); MCHC 33.8 g/dl (32.0-36.0); MEAN CELL VOLUME 87.6 fl (80-96); MEAN PLT VOLUME 8.3 fl (7.5-11.1); PLATELET COUNT 231 K/MM3 (134-434); RDW 12.8 % (11.6-15.6); WHITE BLOOD COUNT 8.9 K/mm3 (4.0-10.0)
[2016-12-25] MEDS ORDERED: ENOXAPARIN NA (PORCINE) 80 MG/0.8 ML DISP.SYRIN SQ ONE ×2 (09:02→20:24)
[2016-12-25] MEDS ORDERED: ENOXAPARIN NA (PORCINE) 30 MG/0.3 ML DISP.SYRIN SQ ONE ×2 (09:02→20:24)
[2016-12-25] MEDS: LISINOPRIL 20 MG TABLET (FP) PO SCH (09:04)
[2016-12-25] MEDS: ONDANSETRON 4 MG/2 ML VIAL IVPB PRN (09:04)
[2016-12-25] MEDS: ENOXAPARIN 30 MG, ENOXAPARIN 80 MG SQ SCH ×2 (09:05→21:54)
[2016-12-25] MEDS: LEVOFLOXACIN 750 MG IVPB 150 ML IVPB SCH (09:05)
[2016-12-25] MEDS: amLODIPine BESYLATE 5 MG TABLET (FP) PO SCH (09:05)
[2016-12-25] MEDS: traMADol HCL 50 MG TABLET PO PRN ×2 (09:07→16:31)
--- NOTE | 2016-12-25 11:44 | PN ---
Physical Exam: SUBJECTIVE: Patient seen and examined by me at bedside. Patient continues to vomit and was unable to tolerate her breakfast this morning. She reports her vomit has food particles and nonbloody or brown compared to yesterday. Patient before breakfast was feeling much better but afterwards, she states feeling "awful." She now complains of epigastric pain described as burning after eating. However, she denies fever, chills, chest pain, shortness of breath, diarrhea, melena, hematochezia, hematuria, dysuria. OBJECTIVE: Vital Signs Period Temp Pulse Resp BP Sys/Puente Pulse Ox Last 24 Hr 97.4 F-99.4 F 82-110 18-20 118-139/62-86 96 GENERAL: The patient is awake, alert, and fully oriented, in no acute distress. LUNGS: Decreased breath sounds bilaterally R>L, no wheezes, no crackles, no accessory muscle use. HEART: Regular rate and rhythm, normal S1 and S2 without murmur, rub or gallop. ABDOMEN: Soft, Obese, tenderness upon epigastric region, nondistended, normoactive bowel sounds, no guarding, no rebound EXTREMITIES: No peripheral edema. NEUROLOGICAL: Normal Speech. No facial droop Laboratory Results - last 24 hr 12/22/16 12/22/16 12/24/16 11:13 18:11 12:10 WBC RBC Hgb Hct MCV MCHC RDW Plt Count MPV Sodium Potassium Chloride Carbon Dioxide Anion Gap BUN Creatinine POC Glucometer 167.79106 124.78588 138 Random Glucose Calcium Magnesium 12/24/16 12/24/16 12/25/16 16:35 21:03 05:36 WBC RBC Hgb Hct MCV MCHC RDW Plt Count MPV Sodium Potassium Chloride Carbon Dioxide Anion Gap BUN Creatinine POC Glucometer 117 124 114 Random Glucose Calcium Magnesium 12/25/16 12/25/16 06:00 06:00 WBC 8.9 RBC 3.72 Hgb 11.0 D Hct 32.6 MCV 87.6 MCHC 33.8 RDW 12.8 Plt Count 231 MPV 8.3 Sodium 144 Potassium 3.9 Chloride 111 H Carbon Dioxide 22 Anion Gap 11 BUN 23 H D Creatinine 0.7 POC Glucometer Random Glucose 108 H D Calcium 8.9 Magnesium 2.0 Active Medications Generic Name Dose Route Start Last Admin Trade Name Freq PRN Reason Stop Dose Admin Albuterol/Ipratropium 1 amp 12/22/16 20:27 12/25/16 07:21 Duoneb - NEB 1 amp Q6H PRN Administration SHORTNESS OF BREATH Amlodipine Besylate 5 mg 12/24/16 10:00 12/25/16 09:05 Norvasc - PO 5 mg DAILY NI Administration Enoxaparin Sodium 30 mg/ 110 mg 12/22/16 22:00 12/25/16 09:05 Enoxaparin Sodium 80 mg SQ 110 mg BID NI Administration Guaifenesin 10 ml 12/22/16 20:27 12/23/16 16:45 Robitussin Dm - PO 10 ml Q8H PRN Administration COUGH Levofloxacin 150 mls @ 100 mls/hr 12/23/16 10:00 12/25/16 09:05 Levaquin 750 Mg Premixed Ivpb - IVPB 100 mls/hr DAILY NI Administration Sodium Chloride 1,000 mls @ 83 mls/hr 12/24/16 09:22 12/25/16 09:05 Normal Saline - IV 83 mls/hr ASDIR NI Administration Insulin Aspart 1 vial 12/22/16 22:00 12/25/16 11:30 Novolog Vial Sliding Scale - SQ 2 units ACHS NI Administration Protocol Lisinopril 40 mg 12/24/16 09:17 12/25/16 09:04 Prinivil PO 40 mg DAILY NI Administration Ondansetron HCl 4 mg 12/22/16 20:27 12/25/16 09:04 Zofran Injection IVPB 4 mg Q6H PRN Administration NAUSEA Ondansetron HCl 4 mg 12/23/16 09:26 Zofran - PO Q8H PRN NAUSEA AND/OR VOMITING Pregabalin 100 mg 12/22/16 22:00 12/25/16 06:26 Lyrica - PO 100 mg TID NI Administration Quetiapine Fumarate 25 mg 12/23/16 03:06 12/24/16 21:27 Seroquel - PO 25 mg HS NI Administration Sodium Chloride 2 spray 12/22/16 20:27 12/23/16 16:27 [employer] - NS 2 sprays BID PRN Administration NASAL CONGESTION Tramadol HCl 50 mg 12/22/16 20:27 12/25/16 09:07 Ultram - PO 50 mg Q6H PRN Administration PAIN Trazodone HCl 100 mg 12/22/16 22:00 12/24/16 21:26 Desyrel - PO 100 mg HS NI Administration CHEST X-RAY (12/23/16): Negative for pneumonia, pleural effusions, pneumothorax , atelectasis. ASSESSMENT/PLAN: Patient is a 46 year old female with a PMHx of HTN, NIDDMII, DVT/PE on Lovenox, and polysubstance abuse who was recently discharged (12/17/16) for drug intoxication and possible Aspiration pneumonia. Patient returns complaining of worsening productive cough and sinus congestion. Patient admitted for possible sepsis from hospital acquired pneumonia for further monitoring and management. Sepsis secondary to Acute Bronchitis vs. Acute Sinusitis- Resolving -Recent discharge from this hospital on 12/17/16 -Chest X-Ray negative for pneumonia or any other acute pathology -Continue 02 PRN -DuoNeb PRN -Robitussin DM for cough -[employer] for Sinus congestion 2 sprays BID PRN -Sudafed 60mg PO -Continue Levaquin 750mg IV daily Day #4. Will need a total of 10 day treatment -Continue IV NS @83mls/hr Nausea/Vomiting/Abdominal Pin -Reports one episode of melena and coffee ground emesis -LFT's ordered -Lipase ordered to rule out pancreatitis -GI consult ordered Hypokalemia-Resolved -Likely secondary to nausea and vomiting -Today 3.9 -Zofran 4mg PO ordered -Monitor BMP HTN-resolving -Continue Lisinopril 40mg daily -Norvasc 5mg daily -Continue to monitor BP NIDDMII -Insulin Sliding SCALE -BGM History of DVT/PE w/ IVC Filter -Continue Lovenox 110mg BID Anxiety/Depression -Continue Seroquel 200mg HS -Continue Trazadone 100mg HS F/E/N -On IV NS @83mls/hr -Electrolytes wnl -Sodium controlled diet Prophylaxis -Lovenox 110mg BID for DVT Disposition -Will place GI consult Visit type - Emergency Visit Emergency Visit: Yes ED Registration Date: 12/22/16 Care time: The patient presented to the Emergency Department on the above date and was hospitalized for further evaluation of their emergent condition. - New Patient This patient is new to me today: No - Critical Care Critical Care patient: No
--- NOTE | 2016-12-25 13:11 | PN ---
Teaching Attending Note Name of Resident: Oly Wade ATTENDING PHYSICIAN STATEMENT I saw and evaluated the patient. I reviewed the resident's note and discussed the case with the resident. I agree with the resident's findings and plan as documented. SUBJECTIVE: Patient reports abdominal pain, nausea and vomiting after trying to eat breakfast. OBJECTIVE: Vital Signs Period Temp Pulse Resp BP Sys/Puente Pulse Ox Last 24 Hr 97.4 F-99.4 F 82-110 18-20 118-139/62-86 96 HEART: Regular rhythm, tachycardic, S1, S2. LUNGS: Clear to auscultation bilaterally. ABDOMEN: Obese, soft, (+) epigastric tenderness, nondistended, normal bowel sounds. EXTREMITIES: Lymphedema of both legs. ASSESSMENT AND PLAN: This is a 46-year-old woman with a history of HTN, type 2 DM, DVT, PE, anxiety, depression, polysubstance abuse who presented to the ER with fever, cough, sore throat and shortness of breath. 1. Sepsis, secondary to acute bronchitis and acute sinusitis - Continue Levaquin, DuoNeb as needed, oxygen - Blood cultures negative 2. HTN, uncontrolled - Control is better - Continue Lisinopril, Norvasc 3. Hypokalemia - Improved 4. Nausea and vomiting - Continue Zofran as needed - Continue IV fluid - Patient reports vomiting blood/coffee grounds - Check LFTs, lipase - GI evaluation 5. Type 2 DM - Continue Novolog sliding scale 6. History of DVT and PE - Continue Lovenox 7. Anxiety and depression - Continue Seroquel, Trazodone 8. History of polysubstance abuse
[2016-12-25 14:00] LABS: ALBUMIN 3.1 g/dl (3.4-5.0); ALK PHOS 55 U/L (45-117); ANION GAP 12 (8-16); BILIRUBIN,TOTAL 0.2 mg/dL (0.2-1.0); CALCIUM 8.5 mg/dL (8.5-10.1); CO2 23 mmol/L (21-32); COCKROFT - GAULT 160.6415; CREATININE 0.8 mg/dL (0.55-1.02); GLUCOSE,RANDOM 169 mg/dL (74-106); SGOT/AST 19 U/L (15-37); SGPT/ALT 27 U/L (12-78); TOT PROT 6.2 g/dl (6.4-8.2)
--- NOTE | 2016-12-25 19:59 | CON.GI ---
Consult Consult Specialty:: GI Referred by:: Dr Morel Reason for Consultation:: N/V with coffeeground emesis x 2. - History of Present Illness Chief Complaint: N/V/D and blood in vomitus History of Present Illness: 46 F with h/o HTN, DM, DVT/PE, substance abuse, Psych admitted with dyspnea, cough and sore and fever of 102 at home. Patient recently discharged from our facility for drug overdose with aspiration pneumonia. She is s/p bernadine and smokes marijuana regularly. She was here in October with drug OD and aspiration PNA. 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 HGBA1c PENDING.) - Past Surgical History Past Surgical History: Yes: Cholecystectomy, Colonoscopy - Alcohol/Substance Use Hx Alcohol Use: No - Smoking History Smoking history: Current every day smoker Have you smoked in the past 12 months: Yes Aproximately how many cigarettes per day: 10 - Social History Usual Living Arrangement: With Parent ADL: Independent History of Recent Travel: No Home Medications - Allergies Allergies/Adverse Reactions: Allergies Allergy/AdvReac Type Severity Reaction Status Date / Time acetaminophen [From Tylenol] AdvReac Mild Verified 12/22/16 00:46 ibuprofen [From Motrin] AdvReac Nausea Verified 12/22/16 00:46 - Home Medications Home Medications: Ambulatory Orders Quetiapine Fumarate [Seroquel -] 25 mg PO HS 08/13/16 Pregabalin [Lyrica] 100 mg PO TID 10/02/16 Enoxaparin [Lovenox -] 110 mg SQ BID #60 syr 12/17/16 Tramadol HCl 50 mg PO QID PRN #30 tablet MDD 4 12/17/16 Nifedipine [Procardia Capsule -] 10 mg PO DAILY 12/22/16 Family Disease History - Family Disease History Family Disease History: Diabetes: Father (DM, etoh), Mother, Brother, Heart Disease: Grandparent (massive CVA in his early 60s) Physical Exam-GI Vital Signs: Vital Signs Temperature 98.7 F 12/25/16 18:00 Pulse Rate 81 12/25/16 18:00 Respiratory Rate 18 12/25/16 18:00 Blood Pressure 107/69 12/25/16 18:00 O2 Sat by Pulse Oximetry (%) 96 12/24/16 21:00 Labs: CBC, BMP 12/25/16 06:00 12/25/16 13:16
[2016-12-25] MEDS ORDERED: INSULIN (NOVOLOG) ASPART 100 UNITS/ML 10ML VIAL ONE (20:25)
[2016-12-25] MEDS: traZODone HCL 50 MG TABLET (FP) PO SCH (21:53)
[2016-12-25] MEDS: QUEtiapine FUMARATE 25 MG TABLET (FP) PO SCH (21:55)
[2016-12-25] MEDS ORDERED: KETOROLAC TROMETHAMINE 10 MG TABLET PO ONE (22:08)
[2016-12-26] MEDS: INSULIN SLIDING SCALE (NOVOLOG) 1 VIAL SQ SCH ×2 (06:06→11:43)
[2016-12-26] MEDS: guaiFENesin/D-METHORPHAN HB 10 ML UNIT-DOSE CUPS PO PRN (06:06)
[2016-12-26] MEDS: PREGABALIN 100 MG CAPSULE PO SCH (06:06)
[2016-12-26] MEDS ORDERED: INSULIN (NOVOLOG) ASPART 100 UNITS/ML 10ML VIAL ONE (06:31)
[2016-12-26 09:10] LABS: MCH 29.4 pg (25.7-33.7); MCHC 33.4 g/dl (32.0-36.0); MEAN CELL VOLUME 88.1 fl (80-96); MEAN PLT VOLUME 8.5 fl (7.5-11.1); PLATELET COUNT 254 K/MM3 (134-434); WHITE BLOOD COUNT 8.3 K/mm3 (4.0-10.0)
[2016-12-26 09:19] LABS: CALCIUM 8.8 mg/dL (8.5-10.1)
[2016-12-26 09:20] LABS: COCKROFT - GAULT 214.1915; CREATININE 0.6 mg/dL (0.55-1.02)
[2016-12-26] MEDS ORDERED: ENOXAPARIN NA (PORCINE) 30 MG/0.3 ML DISP.SYRIN SQ ONE (09:26)
[2016-12-26] MEDS ORDERED: ENOXAPARIN NA (PORCINE) 80 MG/0.8 ML DISP.SYRIN SQ ONE (09:26)
[2016-12-26] MEDS: SODIUM CHLORIDE 1,000 ML IV SCH (09:29)
[2016-12-26] MEDS: LEVOFLOXACIN 750 MG IVPB 150 ML IVPB SCH (09:30)
[2016-12-26] MEDS: LISINOPRIL 20 MG TABLET (FP) PO SCH (09:30)
[2016-12-26] MEDS: ENOXAPARIN 30 MG, ENOXAPARIN 80 MG SQ SCH (09:30)
[2016-12-26] MEDS: amLODIPine BESYLATE 5 MG TABLET (FP) PO SCH (09:30)
[2016-12-26] MEDS: ALBUTEROL SO4 2.5/IPRATROPIUM 0.5 INH SOL 3 ML VIAL.NEB. NEB PRN (10:14)
--- NOTE | 2016-12-26 12:07 | PN ---
Teaching Attending Note Name of Resident: Oly Wade ATTENDING PHYSICIAN STATEMENT I saw and evaluated the patient. I reviewed the resident's note and discussed the case with the resident. I agree with the resident's findings and plan as documented. SUBJECTIVE:asymptomatic. nausea and vominting has resolved. denies CP, SOB,fever , chills, N/V/C/D OBJECTIVE: Last Vital Signs Temp Pulse Resp BP Pulse Ox 97.5 F L 65 18 110/71 94 L 12/26/16 06:00 12/26/16 06:00 12/26/16 06:00 12/26/16 06:00 12/25/16 21:00 General NAD Lungs CTA B/L no wheezing or crackles Abdomen soft NT/ND obese ASSESSMENT AND PLAN: 46yo f with PMH HTN, type 2 DM, DVT, PE, anxiety, depression, polysubstance abuse who presented to the ER with fever, cough, sore throat and shortness of breath. 1. Sepsis, secondary to acute bronchitis and acute sinusitis-symptoms have resolved. completed 5 days of levaquin here. took 1 week of abx last week for suspected aspiration PNA. will stop abx at this time 2. HTN-improved. counseled on importance of medication compliance. 3.Nausea and vomiting- LFT and Lipase WNL. no more hematemsis. Hgb stable. evaluated by GI who counseled on diet change, eating smaller meals, low fat diet. symptoms have resolved. f/u with GI as outpatient for further workup. 4. Hypokalemia-resolved 5. Type 2 DM- controlled. A1c 6.5. states shes on metformin at home. continue. 6. History of DVT and PE- Continue Lovenox 7. Anxiety and depression- Continue Seroquel, Trazodone 8. History of polysubstance abuse 9. D/c home
[2016-12-26 13:28] VITALS: BP 126/90; PULSE 99; TEMP 98
--- NOTE | 2016-12-26 17:06 | DS ---
Physical Exam: SUBJECTIVE: Patient seen and examined by me at bedside. Patient offers no complaints. Reports feeling better today with no episodes of nausea and vomiting. She was able to tolerate breakfast today. Otherwise, patient denies fever, chills, nausea, vomiting, abdominal pain, chest pain, shortness of breath. OBJECTIVE: Vital Signs Period Temp Pulse Resp BP Sys/Puente Pulse Ox Last 24 Hr 97.5 F-99 F 65-99 18-18 107-143/69-90 94 PHYSICAL EXAM GENERAL: The patient is awake, alert, and fully oriented, in no acute distress. LUNGS: Decreased breath sounds bilaterally R>L, no wheezes, no crackles, no accessory muscle use. HEART: Regular rate and rhythm, normal S1 and S2 without murmur, rub or gallop. ABDOMEN: Soft, Obese, tenderness upon epigastric region, nondistended, normoactive bowel sounds, no guarding, no rebound EXTREMITIES: No peripheral edema. NEUROLOGICAL: Normal Speech. No facial droop LABS Laboratory Results - last 24 hr 12/25/16 12/26/16 12/26/16 21:52 06:06 08:20 WBC RBC Hgb Hct MCV MCHC RDW Plt Count MPV Sodium 142 Potassium 3.8 Chloride 109 H Carbon Dioxide 25 Anion Gap 8 BUN 17 Creatinine 0.6 D POC Glucometer 110 117 Random Glucose 105 D Calcium 8.8 Magnesium 2.0 12/26/16 12/26/16 08:20 11:41 WBC 8.3 RBC 3.93 Hgb 11.6 Hct 34.6 MCV 88.1 MCHC 33.4 RDW 13.0 Plt Count 254 MPV 8.5 Sodium Potassium Chloride Carbon Dioxide Anion Gap BUN Creatinine POC Glucometer 117 Random Glucose Calcium Magnesium CHEST X-RAY (12/23/16): Negative for pneumonia, pleural effusions, pneumothorax , atelectasis. HOSPITAL COURSE: Patient is a 46 year old female with a PMHx of HTN, NIDDMII, DVT/PE on Lovenox, and polysubstance abuse who was recently discharged (12/17/16) for drug intoxication and possible Aspiration pneumonia. Patient returned complaining of worsening productive cough and sinus congestion. Patient was suspected to have hospital acquired pneumonia and was started on IV abx Levaquin. Chest x- rays and cultures were negative and patient remained afebrile. Patient was then suspected to have Bronchitis vs sinusitis. Throughout the course patient developed nausea, vomiting, and abdominal pain. Patient then found to have hypokalemia and was repleted with KCl. URI symptoms improved and patient received a total of 5 days worth of antibiotics. Patient's nausea, vomiting, and abdominal pain resolved and patient was able to tolerate PO. Patient stable for discharge and will be going home. 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 follow up with him in 2 weeks. his office number has been provided Referrals: Giacomo Munguia MD [Staff Physician] - Ann-Marie Oconnor MD [Primary Care Provider] - Disposition: HOME - Home Medications Comprehensive Discharge Medication List: Ambulatory Orders Quetiapine Fumarate [Seroquel -] 25 mg PO HS 08/13/16 Pregabalin [Lyrica] 100 mg PO TID 10/02/16 Enoxaparin [Lovenox -] 110 mg SQ BID #60 syr 12/17/16 Tramadol HCl 50 mg PO QID PRN #30 tablet MDD 4 12/17/16 Amlodipine Besylate [Norvasc -] 5 mg PO DAILY #30 tablet 12/26/16 Lisinopril [Prinivil -] 40 mg PO DAILY #30 tablet 12/26/16 Metformin HCl 500 mg PO BID #30 tablet 12/26/16 - Discharge Referral Referred to [facility] No
== END 2016-12-26 13:35 | disposition home or self-care (01) | DRG 720 ==
LOC: JER 00:34 → JERBED 06:35 → UNDOADMIN 06:44 → J5S 19:20
PROVIDERS: ADMIT Internal Medicine; ATTEND Internal Medicine
DX: A41.9 Sepsis, unspecified organism (principal); J18.9 Pneumonia, unspecified organism; R10.13 Epigastric pain; E11.42 Type 2 diabetes mellitus with diabetic polyneuropathy; I10 Essential (primary) hypertension; E11.9 Type 2 diabetes mellitus without complications; J20.9 Acute bronchitis, unspecified; J06.9 Acute upper respiratory infection, unspecified; E87.6 Hypokalemia; F32.9 Major depressive disorder, single episode, unspecified; F41.9 Anxiety disorder, unspecified; R11.2 Nausea with vomiting, unspecified; F17.210 Nicotine dependence, cigarettes, uncomplicated; J01.90 Acute sinusitis, unspecified; Z86.718 Personal history of other venous thrombosis and embolism; E66.9 Obesity, unspecified; Z68.41 Body mass index [BMI] 40.0-44.9, adult; J96.01 Acute respiratory failure with hypoxia; F11.20 Opioid dependence, uncomplicated
CPT/HCPCS: 36415; 36600; 71020-TC; 80048; 80053; 81003; 81015; 82375; 82550; 82803; 83050; 83605; 83690; 83735; 83880; 84484; 84703; 85025; 85027; 87040; 87086; 87324; 87449; 93005; 93010; 94640; 99285-25

== ENCOUNTER 2017-02-14 13:12 | Emergency (ER) | payer OTHER ==
[2017-02-14] MEDS ORDERED: NALOXONE HCL 0.4 MG/ML VIAL ONE (13:19)
[2017-02-14 13:48] VITALS: BMI 45.7
--- NOTE | 2017-02-14 13:50 | PDOC ---
History of Present Illness - General Stated Complaint: OVERDOSE Time Seen by Provider: 02/14/17 13:47 - History of Present Illness Initial Comments: 02/14/17 13:49 Ms. Cobb is a 47 year old female with a significant past medical history of heroin abuse, HTN, NIDDMII, DVT/PE who presents to the emergency department by ambulance following a heroin overdose. She was found down at home and administered narcan by EMS on arrival. Traci was administered .8mg of narcan by ems, .4 IM and .4 IO. She remembers some of her ambulance ride and coming to the ER. She reports that she snorted the heroin and denies any current IV drug use. Reports quantity was "3 packs." The patient denies chest pain, shortness of breath, headache and dizziness. Denies fever, chills, nausea, vomit, diarrhea and constipation. Denies dysuria, frequency, urgency and hematuria. Allergies: Denies Past surgical history: cholecystectomy, prolapsed bladder fix, ankle surgery Social history:smokes 2-3 cigarettes / day. denies alcohol or other drug use ( other than current instance) PMD - Ann-Marie Cortez 02/14/17 16:35 Past History - Past Medical History Allergies/Adverse Reactions: Allergies Allergy/AdvReac Type Severity Reaction Status Date / Time acetaminophen [From Tylenol] AdvReac Mild Verified 12/22/16 00:46 ibuprofen [From Motrin] AdvReac Nausea Verified 12/22/16 00:46 Home Medications: Ambulatory Orders Quetiapine Fumarate [Seroquel -] 25 mg PO HS 08/13/16 Pregabalin [Lyrica] 100 mg PO TID 10/02/16 Enoxaparin [Lovenox -] 110 mg SQ BID #60 syr 12/17/16 Tramadol HCl 50 mg PO QID PRN #30 tablet MDD 4 12/17/16 Amlodipine Besylate [Norvasc -] 5 mg PO DAILY #30 tablet 12/26/16 Lisinopril [Prinivil -] 40 mg PO DAILY #30 tablet 12/26/16 Metformin HCl 500 mg PO BID #30 tablet 12/26/16 Anemia: No Asthma: No Cancer: No Cardiac Disorders: No CVA: No COPD: No CHF: No DVT: Yes Dementia: No Diabetes: Yes (type 2) GI Disorders: Yes (diarrhea) Disorders: Yes (bladder prolapse) HTN: Yes Hypercholesterolemia: No Kidney Stones: Yes Liver Disease: No Psychiatric Problems: Yes (anxiety depression) Suicide Attempt (Hx): No Seizures: No Thyroid Disease: No - Surgical History Abdominal Surgery: Yes Appendectomy: No Cardiac Surgery: No Cholecystectomy: Yes Lung Surgery: No Neurologic Surgery: No Orthopedic Surgery: No - Immunization History Td Vaccination: Yes Immunization Up to Date: Yes - Psycho/Social/Smoking Cessation Hx Anxiety: Yes Suicidal Ideation: No Smoking Status: No Smoking History: Current every day smoker Have you smoked in the past 12 months: Yes Number of Cigarettes Smoked Daily: 3 Information on smoking cessation initiated: No 'Breaking Loose' booklet given: 11/01/16 Hx Alcohol Use: Yes Drug/Substance Use Hx: Yes Substance Use Type: None Hx Substance Use Treatment: Yes (HX OF OPIATE TREATMENT) Review of Systems - Review of Systems Comments:: 02/14/17 13:49 GENERAL/CONSTITUTIONAL: +Generalized body aches reported. No fever or chills. No weakness. HEAD, EYES, EARS, NOSE AND THROAT: No change in vision. No ear pain or discharge. No sore throat. CARDIOVASCULAR: No chest pain or shortness of breath RESPIRATORY: No cough, wheezing, or hemoptysis. GASTROINTESTINAL: No nausea, vomiting, diarrhea or constipation. GENITOURINARY: No dysuria, frequency, or change in urination. MUSCULOSKELETAL: +Pain to R tibial IO site. Also pain at R ankle. No muscle swelling or pain. No neck or back pain. SKIN: No rash NEUROLOGIC: No headache, vertigo, loss of consciousness, or change in strength/ sensation. ENDOCRINE: No increased thirst. No abnormal weight change HEMATOLOGIC/LYMPHATIC: No anemia, easy bleeding, or history of blood clots. ALLERGIC/IMMUNOLOGIC: No hives or skin allergy. *Physical Exam - Vital Signs Last Vital Signs Temp Pulse Resp BP Pulse Ox 97.9 F 107 H 20 96/58 95 02/14/17 13:15 02/14/17 13:15 02/14/17 13:15 02/14/17 13:15 02/14/17 13:15 - Physical Exam Comments: 02/14/17 13:50 GENERAL: Awake, alert, and fully oriented, in no acute distress HEAD: No signs of trauma, normocephalic, atraumatic EYES: +Pupils pinpoint. EOMI, sclera anicteric, conjunctiva clear ENT: Auricles normal inspection, hearing grossly normal, nares patent, oropharynx clear without exudates. Moist mucosa NECK: Normal ROM, supple, no lymphadenopathy, JVD, or masses LUNGS: No distress, speaks full sentences, clear to auscultation bilaterally HEART: Regular rate and rhythm, normal S1 and S2, no murmurs, rubs or gallops, peripheral pulses normal and equal bilaterally. ABDOMEN: Soft, nontender, normoactive bowel sounds. No guarding, no rebound. No masses EXTREMITIES: +IO noted and removed at R proximal tibia. R ankle tender to palpation and edematous. Otherwise normal inspection, normal range of motion. No clubbing or cyanosis. NEUROLOGICAL: Cranial nerves II through XII grossly intact. Normal speech, normal gait, no focal sensorimotor deficits SKIN: Warm, Dry, normal turgor, no rashes or lesions noted. 02/14/17 16:38 Heart Score/ECG Review - ECG Impressions Comment:: 02/14/17 16:39 EKG regular rate and rhythm. Normal interval, normal access. No concerning features or ST elevation. Normal EKG. ED Treatment Course - LABORATORY CBC & Chemistry Diagram: 02/14/17 16:09 02/14/17 16:09 Medical Decision Making - Medical Decision Making 02/14/17 16:40 Ms. Reza SMITH after heroin overdose. Crying on exam but otherwise in no acute distress; feeling guilty for using drugs. With mother. Patient denies any SI/HI, says she doesn't know why she used heroin but that she regrets it and has been under a lot of stress lately. Will ensure labs normal and overdose symptoms dissipated. 02/14/17 19:49 AOx3, ambulatory, no further narcan required. Discussed kidney status and need for hydration with patient - she will follow up with nephrology at 0915 tomorrow. *DC/Admit/Observation/Transfer Diagnosis at time of Disposition: Heroin abuse - Discharge Dispostion Disposition: HOME - Referrals Referrals: Ann-Marie Oconnor MD [Primary Care Provider] - Petar Cruz MD [Staff Physician] - - Patient Instructions Printed Discharge Instructions: Chemical Dependency (Narcotic) (Alternative Therapy) Additional Instructions: Please return to ER if any return of symptoms or concerning changes. - Attestations Physician Attestion: 02/14/17 16:42 I, Dr. Tre Palacios, attest that this document has been prepared under my direction and personally reviewed by me in its entirety. I further attest, that it accurately reflects all work, treatment, procedures and medical decision -making performed by me.
--- NOTE | 2017-02-14 14:18 | PDOC ---
Attending Attestation - Resident Resident Name: Tre - [facility] HPI: 02/14/17 14:46 47 F with h/o heroin abuse, now in rehab, DVT/PE on lovenox, presents to ER with acute opioid overdose. Pt states that she snorted about 3 packets of heroin. Pt denies attempting to harm herself. Denies SI/HI/AVH. Pt states that she hadn't used any heroin in years prior to today. Pt denies any coingestions. Is not currently on methadone. Pt now complains only of pain in the back of her head, which she believes is from falling on the ground while she was high. Denies neck pain. Denies N/V. Pt received 8mg narcan IO en route by EMS. ROS: GENERAL/CONSTITUTIONAL: No fever or chills. No weakness. HEAD, EYES, EARS, NOSE AND THROAT: No change in vision. No ear pain or discharge. No sore throat. CARDIOVASCULAR: No chest pain or shortness of breath. RESPIRATORY: No cough, wheezing, or hemoptysis. GASTROINTESTINAL: No nausea, vomiting, diarrhea or constipation. GENITOURINARY: No dysuria, frequency, or change in urination. MUSCULOSKELETAL: Generalized muscle aches SKIN: No rash NEUROLOGIC: mild headache. No vertigo or change in strength/sensation. ENDOCRINE: No increased thirst. No abnormal weight change. ALLERGIC/IMMUNOLOGIC: No hives or skin allergy. - Physicial Exam PE: 02/14/17 14:50 GENERAL: Awake, alert, and fully oriented, in no acute distress HEAD: No signs of trauma EYES: PERRLA, EOMI, sclera anicteric, conjunctiva clear ENT: Auricles normal inspection, hearing grossly normal, nares patent, oropharynx clear without exudates. Moist mucosa NECK: Normal ROM, supple, no lymphadenopathy, JVD, or masses, no midline c- spine tenderness LUNGS: Breath sounds equal, clear to auscultation bilaterally. No wheezes, and no crackles HEART: Regular rate and rhythm, normal S1 and S2, no murmurs, rubs or gallops ABDOMEN: Soft, nontender, normoactive bowel sounds. No guarding, no rebound. No masses EXTREMITIES: R ankle with mild joint effusion and tenderness to medial malleolus. No clubbing or cyanosis. No cords, erythema, or tenderness NEUROLOGICAL: Cranial nerves II through XII grossly intact. Normal speech, normal gait SKIN: Warm, Dry, normal turgor, no rashes or lesions noted. 02/14/17 16:33 - Critical Care Time Total Critical Care Time: 30 Critical Care Statement: The care of this patient involved high complexity decision making to prevent further life threatening deterioration of the patient 's condition and/or to evalute & treat vital organ system(s) failure or risk of failure. - Medical Decision Making 02/14/17 14:53 47 F with acute opiate overdose. Now awake, alert, no evidence of resp depression s/p narcan in the field. Pt is reasonable and states that overdose was unintentional. She denies any plans to hurt herself. No evidence of coingestion on exam. - Labs, EKG - XR R ankle - CTH to eval for ICH given possible headstrike while on AC - Monitor in ER, re-dose narcan PRN 02/14/17 17:16 Pt reassessed. Continues to have normal mental status. Dispo pending CT and XR. Heart Score/ECG Review - ECG Intrepretation Rhythm: Regular Rhythm - Bath Bath: Normal - ST and T Non Specific ST-T Wave changes: No Flattened T Waves: No Prolonged Q-T Interval: No - ECG Impressions Normal ECG: Yes Ischemic Changes: No
[2017-02-14] MEDS ORDERED: SODIUM CHLORIDE 1,000 ML IV STA (14:40)
[2017-02-14 16:07] LABS: URINE MARIJUANA THC POSITIVE ng/ml (CUTOFF=50)
[2017-02-14 16:21] LABS: BASOPHIL 0.4 % (0-2.0); EOSINOPHIL 0.3 % (0-4.5); MCH 28.4 pg (25.7-33.7); MCHC 31.9 g/dl (32.0-36.0); MEAN CELL VOLUME 89.1 fl (80-96); MEAN PLT VOLUME 9.1 fl (7.5-11.1); NEUTROPHILS 84.7 % (42.8-82.8); PLATELET COUNT 260 K/MM3 (134-434); RDW 13.3 % (11.6-15.6); WHITE BLOOD COUNT 16.2 K/mm3 (4.0-10.0)
[2017-02-14 16:55] LABS: ANION GAP 8 (8-16); CALCIUM 9.5 mg/dL (8.5-10.1); CO2 24 mmol/L (21-32); CREATININE 1.6 mg/dL (0.55-1.02); GLUCOSE,RANDOM 108 mg/dL (74-106)
[2017-02-14 20:32] VITALS: BP 124/71; PULSE 76; TEMP 97.8
--- NOTE | 2017-02-15 11:23 | EKG ---
Test Reason : Blood Pressure : / mmHG Vent. Rate : 072 BPM Atrial Rate : 072 BPM P-R Int : 138 ms QRS Dur : 094 ms QT Int : 384 ms P-R-T Axes : 013 026 031 degrees QTc Int : 420 ms POOR DATA QUALITY, INTERPRETATION MAY BE ADVERSELY AFFECTED NORMAL SINUS RHYTHM CANNOT RULE OUT ANTERIOR INFARCT , AGE UNDETERMINED ABNORMAL ECG WHEN COMPARED WITH ECG OF 22-DEC-2016 05:46, VENT. RATE HAS DECREASED BY 36 BPM QT HAS SHORTENED Confirmed by RICHARD GARG MD ([id number]) on 02/15/2017 11:22:49 AM Referred By: Confirmed By:RICHARD GARG MD
== END 2017-02-14 20:32 | disposition home or self-care (01) ==
LOC: JER 13:12
PROC: 3E0337Z Introduction of Electrolytic and Water Balance Substance into Peripheral Vein, Percutaneous Approach (ICD-10-PCS; principal; 2017-02-14)
DX: T40.1X1A Poisoning by heroin, accidental (unintentional), initial encounter (principal); F11.188 Opioid abuse with other opioid-induced disorder; Y92.9 Unspecified place or not applicable; I10 Essential (primary) hypertension; E11.9 Type 2 diabetes mellitus without complications; Z86.718 Personal history of other venous thrombosis and embolism; Z86.711 Personal history of pulmonary embolism; Z88.6 Allergy status to analgesic agent; F17.210 Nicotine dependence, cigarettes, uncomplicated
CPT/HCPCS: 36415; 70450-TC; 71010-TC; 72125-TC; 73610-TC-RT; 73630-TC-RT; 80048; 80307; 82553; 84703; 85025; 93005; 93010; 99285-25

== ENCOUNTER 2017-03-02 13:28 | Inpatient (IN) | payer OTHER ==
[2017-03-02 14:27] VITALS: BMI 41.5
--- NOTE | 2017-03-02 16:35 | HP ---
Admission ROS S - HPI Chief Complaint: I WANT TO GO TO REHAB Allergies/Adverse Reactions: Allergies Allergy/AdvReac Type Severity Reaction Status Date / Time No Known Allergies Allergy Verified 03/02/17 15:57 History of Present Illness: 47 YEARS OLD FEMALE WITH LONG HISTORY OF OPIATE NICOTINE MARIJUANA DEPENDENCE HAS HYPERTENSION DIABETES II DVT LEGS X 1 YEAR FILTER 2016 AND DEPRESSION ANXIETY PTSD IS ADMITTED TO REHAB Exam Limitations: No Limitations - Ebola screening Have you traveled outside of the country in the last 21 days: No Have you had contact with anyone from an Ebola affected area: No Have you been sick,other than usual withdrawal symptoms: No Do you have a fever: No - Review of Systems Constitutional: Weight Stable EENT: reports: Dental Problems (UPPER TEETH MISSING) Respiratory: reports: No Symptoms reported Cardiac: reports: No Symptoms Reported GI: reports: No Symptoms Reported : reports: No Symptoms Reported, Other (HISTORY OF KIDNEY STONE BILATERALLY, 2014) Musculoskeletal: reports: No Symptoms Reported Integumentary: reports: No Symptoms Reported Neuro: reports: No Symptoms reported Endocrine: reports: See HPI, Unexplained Weight Gain Hematology: reports: Blood Clots (LEGS) Psychiatric: reports: Judgement Intact, Orientated x3, Anxious, Depressed Other Systems: Reviewed and Negative Patient History - Patient Medical History Hx Anemia: No Hx Asthma: No Hx Chronic Obstructive Pulmonary Disease (COPD): No Hx Cancer: No Hx Cardiac Disorders: No Hx Congestive Heart Failure: No Hx Hypertension: Yes Hx Hypercholesterolemia: No Hx Pacemaker: No HX Cerebrovascular Accident: No Hx Seizures: No Hx Dementia: No Hx Diabetes: Yes (type 2) Hx Gastrointestinal Disorders: Yes (diarrhea) Hx Liver Disease: No Hx Genitourinary Disorders: Yes (bladder prolapse 2011) Hx Sexually Transmitted Disorders: No Hx Renal Disease (ESRD): Yes (was on dialysis 2015) Hx Thyroid Disease: No Hx Human Immunodeficiency Virus (HIV): No Hx Hepatitis C: No Hx Depression: Yes Hx Suicide Attempt: No Hx Bipolar Disorder: No Hx Schizophrenia: No - Patient Surgical History Past Surgical History: Yes Hx Neurologic Surgery: No Hx Cataract Extraction: No Hx Cardiac Surgery: No Hx Lung Surgery: No Hx Breast Surgery: No Hx Breast Biopsy: No Hx Abdominal Surgery: Yes Hx Appendectomy: No Hx Cholecystectomy: Yes (2003) Hx Genitourinary Surgery: Yes (BLADDER RECONSTRUCTION 2011) Hx Section: Yes (X 1 2006) Hx Orthopedic Surgery: No Hx Hysterectomy: No Anesthesia Reaction: No - PPD History Previous Implant?: Yes Documented Results: Negative w/o proof Implanted On Prior [facility] Admission?: No PPD to be Administered?: Yes - Reproductive History Patient is a Female of Child Bearing Age (11 -55 yrs old): Yes Last Menstrual Period: 03/02/13 Patient : No - Smoking Cessation Smoking history: Current every day smoker Have you smoked in the past 12 months: Yes Aproximately how many cigarettes per day: 3 Cigars Per Day: 0 Hx Chewing Tobacco Use: No Initiated information on smoking cessation: Yes 'Breaking Loose' booklet given: 03/02/17 - Substance & Tx. History Hx Alcohol Use: No Hx Substance Use: Yes Substance Use Type: Marijuana, Opiates Hx Substance Use Treatment: Yes (2009 [facility]) - Substances Abused Heroin Route: Inhalation Frequency: 1-3 times last 30 days Amount used: 2 BAGS Age of first use: 44 Date of Last Use: 03/01/17 Marijuana/Hashish Route: Smoking Frequency: Daily Amount used: $10 Age of first use: 14 Date of Last Use: 03/01/17 Family Disease History - Family Disease History Family Disease History: Diabetes: Father (DM, etoh), Heart Disease: Grandparent (massive CVA in his early 60s) Admission Physical Exam S - Vital Signs Vital Signs: Vital Signs - 24 hr 03/02/17 14:14 Temperature 98.9 F Pulse Rate 102 H Respiratory 18 Rate Blood Pressure 160/100 - Physical General Appearance: Yes: No Apparent Distress, Appropriately Dressed, Obese HEENTM: Yes: Hearing grossly Normal, Normal ENT Inspection, Normocephalic, Normal Voice Respiratory: Yes: Chest Non-Tender, No Respiratory Distress, No Accessory Muscle Use, Rhonchi, Wheezing, Hyperresonant, Other (CHRONIC BRONCHITIS TREATED AT [facility] "EARLY FEBRUARY") Neck: Yes: Supple, Trachea in good position Breast: Yes: Breasts Symetrical Cardiology: Yes: Regular Rhythm, S1, S2, Tachycardia Abdominal: Yes: Non Tender, Soft, Increased Bowel Sounds Genitourinary: Yes: Within Normal Limits Back: Yes: Normal Inspection Musculoskeletal: Yes: Gait Steady (CANE), Back pain, Joint swelling (ANKLES), Muscle Pain (LEFT KNEE), Muscle weakness (KNEES) Extremities: Yes: Non-Tender, Swelling (ANKLES) Neurological: Yes: Fully Oriented, Alert, Normal Mood/Affect, Normal Response Integumentary: Yes: Warm Lymphatic: Yes: Within Normal Limits - Diagnostic (1) Anxiety and depression Current Visit: Yes Status: Suspected Comment: on meds through primary (2) Cigarette nicotine dependence with nicotine-induced disorder Current Visit: Yes Status: Acute Comment: trying to cut down - counseled cessation (3) Diabetes mellitus treated with oral medication Current Visit: Yes Status: Chronic Comment: sees primary, BGM 128 yesterday (4) Hypertension Current Visit: Yes Status: Chronic Qualifiers: Hypertension type: essential hypertension Qualified Code(s): I10 - Essential (primary) hypertension Comment: on meds, sees primary (5) Morbid obesity Current Visit: Yes Status: Chronic Comment: thinking about wt loss surgery - to f/u with primary (6) Cannabis dependence, uncomplicated Current Visit: Yes Status: Chronic (7) Uncomplicated opioid dependence Current Visit: Yes Status: Acute (8) Use of cane as ambulatory aid Current Visit: Yes Status: Chronic (9) Neuropathic arthritis Current Visit: Yes Status: Chronic (10) Leg DVT (deep venous thromboembolism), chronic Current Visit: Yes Status: Chronic Qualifiers: Laterality: bilateral Qualified Code(s): I82.503 - Chronic embolism and thrombosis of unspecified deep veins of lower extremity, bilateral Cleared for Admission [facility] - Detox or Rehab [facility] Level of Care: Observation Bed Detox Regimen/Protocol: Not Applicable Claeared for Rehab Admission: Yes [facility] Breath Alcohol Content Breath Alcohol Content: 0 Urine Pregancy Test - Result Urine Test Results: Negative- NO Line Present Urine Drug Screen - Results Drug Screen Negative: No Urine Drug Screen Results: THC-Marijuana, OPI-Opiates
[2017-03-02] MEDS ORDERED: hydrOXYzine PAMOATE 50 MG CAPSULE (FP) PO PRN (16:51)
[2017-03-02] MEDS ORDERED: MAGNESIUM HYDROX 2400MG/30ML ORAL SUSPENSION 30 ML CUP PO PRN (16:51)
[2017-03-02] MEDS ORDERED: P-EPHED 60MG/TRIPROLIDI 2.5MG TABLET PO PRN (16:51)
[2017-03-02] MEDS ORDERED: guaiFENesin/D-METHORPHAN HB 10 ML UNIT-DOSE CUPS PO PRN (16:51)
[2017-03-02] MEDS ORDERED: MENTHOL/PHENOL 1 EACH UD MM PRN (16:51)
[2017-03-02] MEDS ORDERED: MAGNESIUM CITRATE 300 ML BOTTLE PO PRN (16:51)
[2017-03-02] MEDS ORDERED: MAG HYDROX/AL HYDROX/SIMETH 30 ML UNIT-DOSE CUP PO PRN (16:51)
[2017-03-02] MEDS ORDERED: ALBUTEROL SO4 2.5/IPRATROPIUM 0.5 INH SOL 3 ML VIAL.NEB. NEB PRN (17:19)
[2017-03-02] MEDS: IBUPROFEN 400 MG TABLET (FP) PO PRN (19:30)
[2017-03-02] MEDS: PREGABALIN 100 MG CAPSULE PO SCH (21:45)
[2017-03-02] MEDS: RANITIDINE HCL 150 MG TABLET (FP) PO SCH (21:45)
[2017-03-02] MEDS: THIAMINE HCL 100 MG TABLET (FP) PO SCH (21:46)
[2017-03-02] MEDS: traZODone HCL 50 MG TABLET (FP) PO SCH (21:46)
[2017-03-02] MEDS: ENOXAPARIN NA (PORCINE) 120 MG/0.8 ML DISP.SYRIN SQ SCH (21:46)
[2017-03-02] MEDS: diphenhydrAMINE HCL 50 MG CAPSULE PO PRN (21:46)
[2017-03-02 22:37] LABS: URINE APPEARANCE SLCLOUDY; URINE BILIRUBIN NEGATIVE (NEGATIVE); URINE BLOOD NEGATIVE (NEGATIVE); URINE COLOR YELLOW; URINE GLUCOSE (UA) NEGATIVE (NEGATIVE); URINE KETONE NEGATIVE (NEGATIVE); URINE LEUK ESTERASE NEGATIVE (NEGATIVE); URINE NITRITE NEGATIVE (NEGATIVE); URINE PROTEIN NEGATIVE (NEGATIVE); URINE UROBILINOGEN NEGATIVE mg/dL (0.2-1.0)
[2017-03-02] MEDS: INSULIN SLIDING SCALE (NOVOLOG) 1 VIAL SQ SCH (22:38)
[2017-03-03] MEDS ORDERED: TUBERCULIN PPD 5 TU/0.1ML VIAL ID ONE (00:49)
[2017-03-03] MEDS: metFORMIN HCL 500 MG TABLET (FP) PO SCH (06:39)
[2017-03-03] MEDS: PREGABALIN 100 MG CAPSULE PO SCH ×3 (06:39→21:33)
[2017-03-03] MEDS: INSULIN SLIDING SCALE (NOVOLOG) 1 VIAL SQ SCH ×4 (06:57→21:37)
[2017-03-03] MEDS ORDERED: PT OWN MED DRAWER 7, Y5N ONE (08:37)
[2017-03-03] MEDS: PRENATAL VITAMINS W/ FOLIC ACID TABLET (FP) PO SCH (09:49)
[2017-03-03] MEDS: ENOXAPARIN NA (PORCINE) 120 MG/0.8 ML DISP.SYRIN SQ SCH ×2 (09:50→21:35)
[2017-03-03] MEDS: NICOTINE 14 MG/24 HOURS TOPICAL PATCH TD SCH (09:50)
[2017-03-03] MEDS: RANITIDINE HCL 150 MG TABLET (FP) PO SCH ×2 (09:50→21:33)
[2017-03-03] MEDS ORDERED: LISINOPRIL 20 MG TABLET (FP) PO SCH (10:00)
[2017-03-03 11:05] LABS: MCH 29.4 pg (25.7-33.7); MCHC 33.7 g/dl (32.0-36.0); MEAN CELL VOLUME 87.4 fl (80-96); MEAN PLT VOLUME 9.2 fl (7.5-11.1); PLATELET COUNT 321 K/MM3 (134-434); RDW 13.2 % (11.6-15.6); WHITE BLOOD COUNT 5.9 K/mm3 (4.0-10.0)
[2017-03-03 11:13] LABS: ALBUMIN 3.7 g/dl (3.4-5.0); ALK PHOS 62 U/L (45-117); ANION GAP 10 (8-16); BILIRUBIN,TOTAL 0.9 mg/dL (0.2-1.0); CALCIUM 9.1 mg/dL (8.5-10.1); CO2 25 mmol/L (21-32); CREATININE 0.6 mg/dL (0.55-1.02); GLUCOSE,RANDOM 154 mg/dL (74-106); SGOT/AST 14 U/L (15-37); SGPT/ALT 25 U/L (12-78); TOT PROT 6.9 g/dl (6.4-8.2)
[2017-03-03 11:30] LABS: INR 1.04 (0.82-1.09); PROTHROMBIN TIME (PATIENT) 11.4 SEC (9.98-11.88)
[2017-03-03] MEDS: IBUPROFEN 400 MG TABLET (FP) PO PRN ×2 (11:59→22:24)
[2017-03-03] MEDS: CYCLOBENZAPRINE HCL 10 MG TABLET (FP) PO PRN (14:31)
--- NOTE | 2017-03-03 18:44 | EKG ---
Test Reason : Blood Pressure : / mmHG Vent. Rate : 083 BPM Atrial Rate : 083 BPM P-R Int : 150 ms QRS Dur : 106 ms QT Int : 396 ms P-R-T Axes : 031 073 055 degrees QTc Int : 465 ms NORMAL SINUS RHYTHM WITH SINUS ARRHYTHMIA NORMAL ECG WHEN COMPARED WITH ECG OF 14-FEB-2017 15:55, NO SIGNIFICANT CHANGE WAS FOUND Confirmed by SURESH LOZANO MD ([id number]) on 03/03/2017 6:44:38 PM Referred By: Confirmed By:SURESH LOZANO MD
[2017-03-03] MEDS: traZODone HCL 50 MG TABLET (FP) PO SCH (21:33)
[2017-03-03] MEDS: THIAMINE HCL 100 MG TABLET (FP) PO SCH (21:33)
[2017-03-03] MEDS: diphenhydrAMINE HCL 50 MG CAPSULE PO PRN (21:35)
[2017-03-04] MEDS: PREGABALIN 100 MG CAPSULE PO SCH ×3 (06:43→21:51)
[2017-03-04] MEDS: metFORMIN HCL 500 MG TABLET (FP) PO SCH (06:44)
[2017-03-04] MEDS: IBUPROFEN 400 MG TABLET (FP) PO PRN (06:44)
[2017-03-04] MEDS: INSULIN SLIDING SCALE (NOVOLOG) 1 VIAL SQ SCH ×4 (06:52→21:51)
[2017-03-04] MEDS ORDERED: LISINOPRIL 20 MG TABLET (FP) PO SCH (07:00)
[2017-03-04] MEDS ORDERED: HYDROCHLOROTHIAZIDE 50 MG TABLET PO SCH (07:00)
[2017-03-04] MEDS: HYDROCHLOROTHIAZIDE 25 MG TABLET (FP) PO SCH (08:16)
[2017-03-04] MEDS: ENOXAPARIN NA (PORCINE) 120 MG/0.8 ML DISP.SYRIN SQ SCH ×2 (09:49→21:51)
[2017-03-04] MEDS: ONDANSETRON *ODT* 4 MG TABLET SL PRN (10:17)
[2017-03-04] MEDS ORDERED: cloNIDine HCL 0.1 MG TABLET PO ONE ×2 (10:54→18:15)
--- NOTE | 2017-03-04 10:57 | PN ---
S Progress Note Note: HISTORY OF MIGRAINE HEADACHE,NAUSEA, IMITREX 50 MGS PO NOW,CLONICIDNE 0.1 MG PO ZOFRAN 4 MGS SL PRRN FOR NAUSEA,VOMITING CLOSE MONITORING
[2017-03-04] MEDS ORDERED: SUMAtriptan SUCCINATE 50 MG TABLET PO ONE (11:00)
[2017-03-04] MEDS: NICOTINE 14 MG/24 HOURS TOPICAL PATCH TD SCH (11:03)
[2017-03-04] MEDS: PRENATAL VITAMINS W/ FOLIC ACID TABLET (FP) PO SCH (11:03)
[2017-03-04] MEDS: RANITIDINE HCL 150 MG TABLET (FP) PO SCH ×2 (11:03→21:53)
--- NOTE | 2017-03-04 19:56 | PN ---
BARBARA Progress Note Note: patient felt better after cloninidine 0.2 mg po given stated no headache,no nausea or vomiting alert oriented x 3 no sob no haedache movement of neck no limitation heat normal heart sound lung clear,no whezzing abdomen no pain of tenderness no calf tenderness patient did not want to go to er at this present time treatment close monitoring vital signes monitoring case endorsed to dr chapa on coming physician
[2017-03-04] MEDS ORDERED: NITROGLYCERIN SUBLINGUAL 1/150 0.4 MG TAB SL PRN (20:40)
--- NOTE | 2017-03-04 21:09 | PN ---
S Progress Note Note: MD'S NOTE: [facility] WAS CALLED A FEW MTS. AGO BECAUSE THE PT. WAS FOUND ON THE FLOOR SUB: THE PT. CLAIMS THAT SHE FELT DIZZY AND FELL ON THE FLOOR BUT DENIES HITTING THE HEAD. SHE DID NOT REMEMBER OF FALLING ON TO THE FLOOR DENIES; CP, SOB, PALPITATIONS OBJ: THE PT. WOKE UP WITHIN A FEW MTS. AND GALEANA X 3 NOT ANEMIC, NOT DYSPNEIC, NO CYANOSIS, NOT IN DISTRESS. NO EDEMA NOTED V/S: [id number] S/E: WEAVER NARROW FABRICS: NO FOCAL DEFICITS NOTED AT THIS TIME CVS: -JVD, NL HEART SOUNDS, NO MURMURS LUNGS: VESICULAR BREATH SOUNDS, NO RALES, NO RHONCHI ABD: SOFT, NT, FATTY ABD. WALL, B.S.+ L/E: NO VISIBLE INJURIES OR FRACTURES NOTED CLINICALLY AT THIS TIME IMPRESSION: SYNCOPE - SEC. TO : ONGOING ACCELERATED HTN PLANS: PLEASE NOTE: -THE PT. REFUSED TO GO TO THE ER EARLIER FOR FURTHER MANAGEMENT OF ACCELERATED HTN. NOW, SHE AGREED FOR THE TRANSFER. -ER-DR. DEEPALI CLEANING WAS NOTIFIED OF ABOVE EVENTS AND 911 WAS CALLED FOR TRANSFER TO THE ER FOR FURTHER MANAGEMENT. PROVIDER: MEMO LEE MD
[2017-03-04] MEDS: traZODone HCL 50 MG TABLET (FP) PO SCH (21:51)
[2017-03-04] MEDS: LISINOPRIL 20 MG TABLET (FP) PO SCH (21:52)
[2017-03-04] MEDS: THIAMINE HCL 100 MG TABLET (FP) PO SCH (21:53)
[2017-03-05] MEDS: INSULIN SLIDING SCALE (NOVOLOG) 1 VIAL SQ SCH ×4 (06:55→21:34)
[2017-03-05] MEDS: HYDROCHLOROTHIAZIDE 25 MG TABLET (FP) PO SCH (06:58)
[2017-03-05] MEDS: metFORMIN HCL 500 MG TABLET (FP) PO SCH (06:58)
[2017-03-05] MEDS: PREGABALIN 100 MG CAPSULE PO SCH ×3 (06:59→21:27)
[2017-03-05] MEDS: IBUPROFEN 400 MG TABLET (FP) PO PRN (06:59)
[2017-03-05] MEDS ORDERED: PT OWN MED DRAWER 7, Y5N ONE (08:36)
[2017-03-05] MEDS: ENOXAPARIN NA (PORCINE) 120 MG/0.8 ML DISP.SYRIN SQ SCH ×2 (10:01→21:32)
[2017-03-05] MEDS: NICOTINE 14 MG/24 HOURS TOPICAL PATCH TD SCH (10:02)
[2017-03-05] MEDS: RANITIDINE HCL 150 MG TABLET (FP) PO SCH ×2 (10:02→21:27)
[2017-03-05] MEDS: LISINOPRIL 20 MG TABLET (FP) PO SCH ×2 (10:02→21:27)
[2017-03-05] MEDS: PRENATAL VITAMINS W/ FOLIC ACID TABLET (FP) PO SCH (10:02)
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
--- NOTE | 2017-03-05 12:35 | PN ---
S Progress Note Note: CALLED BY NURSE Sage HERNANDEZ REQUESTING TO PUT ORDER FOR CT SCAN ON PT WHO HARD BEEN SEEN AT THE ER EARLIER DUE TO FALL ( SEE NURSES NOTES).
--- NOTE | 2017-03-05 15:08 | PN ---
[facility] Progress Note Note: S/P Head CT without contrast. Pt. c/o mild headache Vital Signs - 8 hr 03/05/17 03/05/17 08:49 12:45 Temperature 98.6 F 98.7 F Pulse Rate 101 H 100 H Respiratory 19 20 Rate Blood Pressure 135/90 133/87 Laboratory Tests 03/02/17 03/03/17 03/03/17 21:45 06:38 08:00 WBC 5.9 D RBC 4.48 Hgb 13.2 D Hct 39.2 MCV 87.4 MCH 29.4 MCHC 33.7 RDW 13.2 Plt Count 321 D MPV 9.2 INR Sodium Potassium Chloride Carbon Dioxide Anion Gap BUN Creatinine Creat Clearance w eGFR POC Glucometer 145 Random Glucose Calcium Total Bilirubin AST ALT Alkaline Phosphatase Total Protein Albumin Urine Color Yellow Urine Appearance Slcloudy Urine pH 5.0 Ur Specific Brumley 1.025 Urine Protein Negative Urine Glucose (UA) Negative Urine Ketones Negative Urine Blood Negative Urine Nitrite Negative Urine Bilirubin Negative Urine Urobilinogen Negative Ur Leukocyte Esterase Negative RPR Titer 03/03/17 03/03/17 03/03/17 08:00 08:00 08:30 WBC RBC Hgb Hct MCV MCH MCHC RDW Plt Count MPV INR 1.04 Sodium 143 Potassium 4.0 D Chloride 108 H Carbon Dioxide 25 Anion Gap 10 BUN 16 D Creatinine 0.6 D Creat Clearance w eGFR > 60 POC Glucometer Random Glucose 154 H D Calcium 9.1 Total Bilirubin 0.9 D AST 14 L D ALT 25 Alkaline Phosphatase 62 Total Protein 6.9 Albumin 3.7 Urine Color Urine Appearance Urine pH Ur Specific Brumley Urine Protein Urine Glucose (UA) Urine Ketones Urine Blood Urine Nitrite Urine Bilirubin Urine Urobilinogen Ur Leukocyte Esterase RPR Titer Nonreactive INR 1.04 Neurologic exam : WNL Impression : no Intracranial bleeding, normal head ct. scan P : Post fall protocol #1
[2017-03-05] MEDS ORDERED: amLODIPine BESYLATE 5 MG TABLET (FP) PO ONE (15:45)
[2017-03-05] MEDS: THIAMINE HCL 100 MG TABLET (FP) PO SCH (21:27)
[2017-03-05] MEDS: traZODone HCL 50 MG TABLET (FP) PO SCH (21:27)
[2017-03-05] MEDS: QUEtiapine FUMARATE 50 MG TABLET PO SCH (21:29)
[2017-03-05] MEDS: diphenhydrAMINE HCL 50 MG CAPSULE PO PRN (21:29)
[2017-03-05] MEDS: amLODIPine BESYLATE 5 MG TABLET (FP) PO SCH (22:19)
[2017-03-06] MEDS: PREGABALIN 100 MG CAPSULE PO SCH ×3 (06:17→21:34)
[2017-03-06] MEDS: HYDROCHLOROTHIAZIDE 25 MG TABLET (FP) PO SCH (06:17)
[2017-03-06] MEDS: metFORMIN HCL 500 MG TABLET (FP) PO SCH (06:18)
[2017-03-06] MEDS: INSULIN SLIDING SCALE (NOVOLOG) 1 VIAL SQ SCH ×4 (06:20→21:38)
[2017-03-06] MEDS: LOPERAMIDE HCL 2 MG CAPSULE PO PRN (08:53)
[2017-03-06] MEDS: ONDANSETRON *ODT* 4 MG TABLET SL PRN (08:57)
[2017-03-06] MEDS: RANITIDINE HCL 150 MG TABLET (FP) PO SCH ×2 (10:03→21:33)
[2017-03-06] MEDS: LISINOPRIL 20 MG TABLET (FP) PO SCH ×2 (10:03→21:33)
[2017-03-06] MEDS: PRENATAL VITAMINS W/ FOLIC ACID TABLET (FP) PO SCH (10:03)
[2017-03-06] MEDS: ENOXAPARIN NA (PORCINE) 120 MG/0.8 ML DISP.SYRIN SQ SCH ×2 (10:04→21:37)
[2017-03-06] MEDS: NICOTINE 14 MG/24 HOURS TOPICAL PATCH TD SCH (10:04)
[2017-03-06] MEDS: amLODIPine BESYLATE 5 MG TABLET (FP) PO SCH ×2 (10:30→21:34)
[2017-03-06] MEDS: QUEtiapine FUMARATE 50 MG TABLET PO SCH (21:33)
[2017-03-06] MEDS: traZODone HCL 50 MG TABLET (FP) PO SCH (21:33)
[2017-03-06] MEDS: THIAMINE HCL 100 MG TABLET (FP) PO SCH (21:33)
[2017-03-06] MEDS: diphenhydrAMINE HCL 50 MG CAPSULE PO PRN (21:36)
[2017-03-07] MEDS: HYDROCHLOROTHIAZIDE 25 MG TABLET (FP) PO SCH (06:24)
[2017-03-07] MEDS: metFORMIN HCL 500 MG TABLET (FP) PO SCH (07:25)
[2017-03-07] MEDS: INSULIN SLIDING SCALE (NOVOLOG) 1 VIAL SQ SCH ×4 (07:25→21:24)
[2017-03-07] MEDS: PREGABALIN 100 MG CAPSULE PO SCH ×3 (07:25→21:19)
[2017-03-07] MEDS: ENOXAPARIN NA (PORCINE) 120 MG/0.8 ML DISP.SYRIN SQ SCH ×2 (10:13→21:22)
[2017-03-07] MEDS: LISINOPRIL 20 MG TABLET (FP) PO SCH ×2 (10:14→21:19)
[2017-03-07] MEDS: RANITIDINE HCL 150 MG TABLET (FP) PO SCH ×2 (10:14→21:19)
[2017-03-07] MEDS: PRENATAL VITAMINS W/ FOLIC ACID TABLET (FP) PO SCH (10:14)
[2017-03-07] MEDS: amLODIPine BESYLATE 5 MG TABLET (FP) PO SCH ×2 (10:14→21:22)
[2017-03-07] MEDS: ONDANSETRON *ODT* 4 MG TABLET SL PRN (10:15)
[2017-03-07] MEDS: NICOTINE 14 MG/24 HOURS TOPICAL PATCH TD SCH (10:16)
[2017-03-07] MEDS: LOPERAMIDE HCL 2 MG CAPSULE PO PRN (13:50)
--- NOTE | 2017-03-07 15:05 | PN ---
[facility] Progress Note Note: Pt. is worried about relapse,she wants to star buprenorphine maintenance. suboxone film 4mg, 6mg & 8mg daily thereafter
[2017-03-07] MEDS ORDERED: BUPRENORPHINE/NALOXONE 2 MG/0.5 MG FILM PACKET SL ONE ×2 (15:30→22:00)
[2017-03-07] MEDS: THIAMINE HCL 100 MG TABLET (FP) PO SCH (21:19)
[2017-03-07] MEDS: QUEtiapine FUMARATE 50 MG TABLET PO SCH (21:19)
[2017-03-07] MEDS: traZODone HCL 50 MG TABLET (FP) PO SCH (21:19)
[2017-03-07] MEDS: diphenhydrAMINE HCL 50 MG CAPSULE PO PRN (21:20)
[2017-03-07] MEDS ORDERED: BUPRENORPHINE/NALOXONE 2 MG/0.5 MG FILM PACKET SL SCH ×2 (22:00)
[2017-03-08] MEDS: INSULIN SLIDING SCALE (NOVOLOG) 1 VIAL SQ SCH ×4 (06:34→21:25)
[2017-03-08] MEDS: HYDROCHLOROTHIAZIDE 25 MG TABLET (FP) PO SCH (06:37)
[2017-03-08] MEDS: metFORMIN HCL 500 MG TABLET (FP) PO SCH (06:37)
[2017-03-08] MEDS: PREGABALIN 100 MG CAPSULE PO SCH ×3 (06:37→21:20)
[2017-03-08] MEDS: CYCLOBENZAPRINE HCL 10 MG TABLET (FP) PO PRN (06:37)
[2017-03-08] MEDS ORDERED: PT OWN MED DRAWER 7, Y5N ONE (08:27)
[2017-03-08] MEDS: NICOTINE 14 MG/24 HOURS TOPICAL PATCH TD SCH (09:56)
[2017-03-08] MEDS: ENOXAPARIN NA (PORCINE) 120 MG/0.8 ML DISP.SYRIN SQ SCH ×2 (09:57→21:25)
[2017-03-08] MEDS: PRENATAL VITAMINS W/ FOLIC ACID TABLET (FP) PO SCH (09:58)
[2017-03-08] MEDS: RANITIDINE HCL 150 MG TABLET (FP) PO SCH ×2 (09:58→21:20)
[2017-03-08] MEDS: LISINOPRIL 20 MG TABLET (FP) PO SCH ×2 (09:58→21:24)
[2017-03-08] MEDS: amLODIPine BESYLATE 5 MG TABLET (FP) PO SCH ×2 (10:00→21:40)
[2017-03-08] MEDS ORDERED: BUPRENORPHINE/NALOXONE 2 MG/0.5 MG FILM PACKET SL SCH (10:00)
[2017-03-08] MEDS: NICOTINE POLACRILEX 2 MG GUM BC PRN ×2 (13:28→18:30)
[2017-03-08] MEDS: ALBUTEROL SO4 2.5/IPRATROPIUM 0.5 INH SOL 3 ML VIAL.NEB. NEB PRN (15:24)
[2017-03-08] MEDS: traZODone HCL 50 MG TABLET (FP) PO SCH (21:19)
[2017-03-08] MEDS: BACITRACIN 0.9 GM PACKET TP SCH (21:19)
[2017-03-08] MEDS: QUEtiapine FUMARATE 50 MG TABLET PO SCH (21:20)
[2017-03-08] MEDS: THIAMINE HCL 100 MG TABLET (FP) PO SCH (21:21)
[2017-03-08] MEDS: diphenhydrAMINE HCL 50 MG CAPSULE PO PRN (21:21)
[2017-03-08] MEDS ORDERED: BUPRENORPHINE/NALOXONE 2 MG/0.5 MG FILM PACKET SL ONE (22:00)
[2017-03-09] MEDS: ALBUTEROL SO4 2.5/IPRATROPIUM 0.5 INH SOL 3 ML VIAL.NEB. NEB PRN (06:50)
[2017-03-09] MEDS: PREGABALIN 100 MG CAPSULE PO SCH ×3 (07:10→21:37)
[2017-03-09] MEDS: metFORMIN HCL 500 MG TABLET (FP) PO SCH (07:10)
[2017-03-09] MEDS: HYDROCHLOROTHIAZIDE 25 MG TABLET (FP) PO SCH (07:10)
[2017-03-09] MEDS: INSULIN SLIDING SCALE (NOVOLOG) 1 VIAL SQ SCH ×4 (07:12→21:37)
[2017-03-09] MEDS: BACITRACIN 0.9 GM PACKET TP SCH ×2 (10:05→21:29)
[2017-03-09] MEDS: LISINOPRIL 20 MG TABLET (FP) PO SCH ×2 (10:05→21:28)
[2017-03-09] MEDS: BUPRENORPHINE/NALOXONE 8 MG/2 MG FILM PACKET SL SCH (10:06)
[2017-03-09] MEDS: RANITIDINE HCL 150 MG TABLET (FP) PO SCH ×2 (10:06→21:28)
[2017-03-09] MEDS: NICOTINE 14 MG/24 HOURS TOPICAL PATCH TD SCH (10:06)
[2017-03-09] MEDS: PRENATAL VITAMINS W/ FOLIC ACID TABLET (FP) PO SCH (10:06)
[2017-03-09] MEDS: ENOXAPARIN NA (PORCINE) 120 MG/0.8 ML DISP.SYRIN SQ SCH ×2 (10:08→21:30)
[2017-03-09] MEDS: amLODIPine BESYLATE 5 MG TABLET (FP) PO SCH ×2 (10:39→21:34)
[2017-03-09] MEDS: IBUPROFEN 400 MG TABLET (FP) PO PRN (12:09)
[2017-03-09] MEDS: QUEtiapine FUMARATE 50 MG TABLET PO SCH (21:28)
[2017-03-09] MEDS: traZODone HCL 50 MG TABLET (FP) PO SCH (21:29)
[2017-03-09] MEDS: THIAMINE HCL 100 MG TABLET (FP) PO SCH (21:33)
[2017-03-09] MEDS: diphenhydrAMINE HCL 50 MG CAPSULE PO PRN (21:34)
[2017-03-10] MEDS: IBUPROFEN 400 MG TABLET (FP) PO PRN ×2 (00:59→15:34)
[2017-03-10] MEDS: ALBUTEROL SO4 2.5/IPRATROPIUM 0.5 INH SOL 3 ML VIAL.NEB. NEB PRN (03:30)
[2017-03-10] MEDS: metFORMIN HCL 500 MG TABLET (FP) PO SCH (06:33)
[2017-03-10] MEDS: PREGABALIN 100 MG CAPSULE PO SCH ×3 (06:33→21:04)
[2017-03-10] MEDS: HYDROCHLOROTHIAZIDE 25 MG TABLET (FP) PO SCH (06:33)
[2017-03-10] MEDS: INSULIN SLIDING SCALE (NOVOLOG) 1 VIAL SQ SCH ×4 (06:34→21:08)
[2017-03-10] MEDS: BACITRACIN 0.9 GM PACKET TP SCH ×2 (09:17→21:05)
[2017-03-10] MEDS: ENOXAPARIN NA (PORCINE) 120 MG/0.8 ML DISP.SYRIN SQ SCH ×2 (09:17→21:05)
[2017-03-10] MEDS: LISINOPRIL 20 MG TABLET (FP) PO SCH ×2 (09:18→21:03)
[2017-03-10] MEDS: NICOTINE 14 MG/24 HOURS TOPICAL PATCH TD SCH (09:18)
[2017-03-10] MEDS: PRENATAL VITAMINS W/ FOLIC ACID TABLET (FP) PO SCH (09:19)
[2017-03-10] MEDS: RANITIDINE HCL 150 MG TABLET (FP) PO SCH ×2 (09:19→21:03)
[2017-03-10] MEDS: amLODIPine BESYLATE 5 MG TABLET (FP) PO SCH ×2 (09:19→21:03)
[2017-03-10] MEDS: BUPRENORPHINE/NALOXONE 8 MG/2 MG FILM PACKET SL SCH (09:19)
[2017-03-10] MEDS ORDERED: QUEtiapine FUMARATE 25 MG TABLET (FP) ONE (19:14)
[2017-03-10] MEDS: QUEtiapine FUMARATE 50 MG TABLET PO SCH (21:03)
[2017-03-10] MEDS: THIAMINE HCL 100 MG TABLET (FP) PO SCH (21:03)
[2017-03-10] MEDS: traZODone HCL 50 MG TABLET (FP) PO SCH (21:04)
[2017-03-10] MEDS ORDERED: INSULIN (NOVOLOG) ASPART 100 UNITS/ML 10ML VIAL ONE (21:07)
[2017-03-10] MEDS: diphenhydrAMINE HCL 50 MG CAPSULE PO PRN (21:09)
[2017-03-11] MEDS: PREGABALIN 100 MG CAPSULE PO SCH ×3 (06:44→21:02)
[2017-03-11] MEDS: metFORMIN HCL 500 MG TABLET (FP) PO SCH (06:44)
[2017-03-11] MEDS: INSULIN SLIDING SCALE (NOVOLOG) 1 VIAL SQ SCH ×4 (06:44→21:39)
[2017-03-11] MEDS: HYDROCHLOROTHIAZIDE 25 MG TABLET (FP) PO SCH (06:44)
[2017-03-11] MEDS: CYCLOBENZAPRINE HCL 10 MG TABLET (FP) PO PRN ×2 (06:46→16:43)
[2017-03-11] MEDS: NICOTINE 14 MG/24 HOURS TOPICAL PATCH TD SCH (09:32)
[2017-03-11] MEDS: RANITIDINE HCL 150 MG TABLET (FP) PO SCH ×2 (09:33→21:02)
[2017-03-11] MEDS: BACITRACIN 0.9 GM PACKET TP SCH ×2 (09:33→21:01)
[2017-03-11] MEDS: PRENATAL VITAMINS W/ FOLIC ACID TABLET (FP) PO SCH (09:33)
[2017-03-11] MEDS: amLODIPine BESYLATE 5 MG TABLET (FP) PO SCH ×2 (09:34→21:02)
[2017-03-11] MEDS: ENOXAPARIN NA (PORCINE) 120 MG/0.8 ML DISP.SYRIN SQ SCH ×2 (09:34→21:01)
[2017-03-11] MEDS: LISINOPRIL 20 MG TABLET (FP) PO SCH ×2 (09:34→21:02)
[2017-03-11] MEDS: BUPRENORPHINE/NALOXONE 8 MG/2 MG FILM PACKET SL SCH (09:35)
[2017-03-11] MEDS ORDERED: INSULIN (NOVOLOG) ASPART 100 UNITS/ML 10ML VIAL ONE (11:58)
[2017-03-11] MEDS: ALBUTEROL SO4 2.5/IPRATROPIUM 0.5 INH SOL 3 ML VIAL.NEB. NEB PRN (16:06)
[2017-03-11] MEDS: traZODone HCL 50 MG TABLET (FP) PO SCH (21:01)
[2017-03-11] MEDS: THIAMINE HCL 100 MG TABLET (FP) PO SCH (21:02)
[2017-03-11] MEDS: QUEtiapine FUMARATE 50 MG TABLET PO SCH (21:02)
[2017-03-11] MEDS: diphenhydrAMINE HCL 50 MG CAPSULE PO PRN (21:03)
[2017-03-11] MEDS: IBUPROFEN 400 MG TABLET (FP) PO PRN (21:03)
[2017-03-12] MEDS: INSULIN SLIDING SCALE (NOVOLOG) 1 VIAL SQ SCH ×4 (06:25→21:22)
[2017-03-12] MEDS: HYDROCHLOROTHIAZIDE 25 MG TABLET (FP) PO SCH (06:26)
[2017-03-12] MEDS: metFORMIN HCL 500 MG TABLET (FP) PO SCH (06:26)
[2017-03-12] MEDS: PREGABALIN 100 MG CAPSULE PO SCH ×3 (06:26→21:16)
[2017-03-12] MEDS: CYCLOBENZAPRINE HCL 10 MG TABLET (FP) PO PRN (06:27)
[2017-03-12] MEDS: ALBUTEROL SO4 2.5/IPRATROPIUM 0.5 INH SOL 3 ML VIAL.NEB. NEB PRN (06:32)
[2017-03-12] MEDS: BUPRENORPHINE/NALOXONE 8 MG/2 MG FILM PACKET SL SCH (09:41)
[2017-03-12] MEDS: LISINOPRIL 20 MG TABLET (FP) PO SCH ×2 (09:41→21:16)
[2017-03-12] MEDS: RANITIDINE HCL 150 MG TABLET (FP) PO SCH ×2 (09:41→21:17)
[2017-03-12] MEDS: BACITRACIN 0.9 GM PACKET TP SCH ×2 (09:41→21:18)
[2017-03-12] MEDS: PRENATAL VITAMINS W/ FOLIC ACID TABLET (FP) PO SCH (09:41)
[2017-03-12] MEDS: amLODIPine BESYLATE 5 MG TABLET (FP) PO SCH ×2 (09:41→21:17)
[2017-03-12] MEDS: ENOXAPARIN NA (PORCINE) 120 MG/0.8 ML DISP.SYRIN SQ SCH ×2 (09:42→21:20)
[2017-03-12] MEDS: NICOTINE 14 MG/24 HOURS TOPICAL PATCH TD SCH (09:44)
--- NOTE | 2017-03-12 11:50 | PN ---
S Progress Note Note: Patient reports current subxone dose no holding her, will split dose and give addition 2mg a 6PM. evaluae one week. Patient to be counseld regarding appropriate adminsitation of subxone to ensure maximum absorption.
[2017-03-12] MEDS: LIDOCAINE 5% TOPICAL PATCH TP SCH (15:28)
[2017-03-12] MEDS: BUPRENORPHINE/NALOXONE 2 MG/0.5 MG FILM PACKET SL SCH (17:08)
[2017-03-12] MEDS: THIAMINE HCL 100 MG TABLET (FP) PO SCH (21:16)
[2017-03-12] MEDS: diphenhydrAMINE HCL 50 MG CAPSULE PO PRN (21:17)
[2017-03-12] MEDS: QUEtiapine FUMARATE 50 MG TABLET PO SCH (21:17)
[2017-03-12] MEDS: traZODone HCL 50 MG TABLET (FP) PO SCH (21:17)
[2017-03-12] MEDS: LIDOCAINE PATCH REMOVAL MC SCH (21:19)
[2017-03-12] MEDS ORDERED: INSULIN (NOVOLOG) ASPART 100 UNITS/ML 10ML VIAL ONE ×2 (21:23→22:55)
[2017-03-13] MEDS: ALBUTEROL SO4 2.5/IPRATROPIUM 0.5 INH SOL 3 ML VIAL.NEB. NEB PRN (02:19)
[2017-03-13] MEDS: HYDROCHLOROTHIAZIDE 25 MG TABLET (FP) PO SCH (06:33)
[2017-03-13] MEDS: PREGABALIN 100 MG CAPSULE PO SCH ×2 (06:33→21:36)
[2017-03-13] MEDS: metFORMIN HCL 500 MG TABLET (FP) PO SCH (06:33)
[2017-03-13] MEDS: INSULIN SLIDING SCALE (NOVOLOG) 1 VIAL SQ SCH ×4 (06:37→21:39)
[2017-03-13] MEDS ORDERED: BUPRENORPHINE/NALOXONE 2 MG/0.5 MG FILM PACKET SL SCH (10:00)
[2017-03-13] MEDS: ENOXAPARIN NA (PORCINE) 120 MG/0.8 ML DISP.SYRIN SQ SCH ×2 (10:33→21:39)
[2017-03-13] MEDS: RANITIDINE HCL 150 MG TABLET (FP) PO SCH ×2 (10:33→21:36)
[2017-03-13] MEDS: BACITRACIN 0.9 GM PACKET TP SCH ×2 (10:33→21:36)
[2017-03-13] MEDS: BUPRENORPHINE/NALOXONE 8 MG/2 MG FILM PACKET SL SCH (10:33)
[2017-03-13] MEDS: amLODIPine BESYLATE 5 MG TABLET (FP) PO SCH ×2 (10:33→21:36)
[2017-03-13] MEDS: PRENATAL VITAMINS W/ FOLIC ACID TABLET (FP) PO SCH (10:33)
[2017-03-13] MEDS: LISINOPRIL 20 MG TABLET (FP) PO SCH ×2 (10:34→21:36)
[2017-03-13] MEDS: NICOTINE 14 MG/24 HOURS TOPICAL PATCH TD SCH (10:35)
[2017-03-13] MEDS: LIDOCAINE 5% TOPICAL PATCH TP SCH ×2 (10:36→14:46)
[2017-03-13] MEDS ORDERED: PREGABALIN 100 MG CAPSULE PO ONE (14:30)
[2017-03-13] MEDS ORDERED: INSULIN (NOVOLOG) ASPART 100 UNITS/ML 10ML VIAL ONE (17:00)
[2017-03-13] MEDS: BUPRENORPHINE/NALOXONE 2 MG/0.5 MG FILM PACKET SL SCH (17:09)
[2017-03-13] MEDS: THIAMINE HCL 100 MG TABLET (FP) PO SCH (21:35)
[2017-03-13] MEDS: QUEtiapine FUMARATE 50 MG TABLET PO SCH (21:36)
[2017-03-13] MEDS: traZODone HCL 50 MG TABLET (FP) PO SCH (21:36)
[2017-03-13] MEDS: diphenhydrAMINE HCL 50 MG CAPSULE PO PRN (21:38)
[2017-03-13] MEDS: LIDOCAINE PATCH REMOVAL MC SCH (21:38)
[2017-03-14] MEDS: metFORMIN HCL 500 MG TABLET (FP) PO SCH (06:22)
[2017-03-14] MEDS: HYDROCHLOROTHIAZIDE 25 MG TABLET (FP) PO SCH (06:22)
[2017-03-14] MEDS: INSULIN SLIDING SCALE (NOVOLOG) 1 VIAL SQ SCH ×4 (06:23→21:33)
[2017-03-14] MEDS: ENOXAPARIN NA (PORCINE) 120 MG/0.8 ML DISP.SYRIN SQ SCH ×2 (10:06→21:30)
[2017-03-14] MEDS: amLODIPine BESYLATE 5 MG TABLET (FP) PO SCH ×2 (10:07→21:28)
[2017-03-14] MEDS: LISINOPRIL 20 MG TABLET (FP) PO SCH ×2 (10:07→21:28)
[2017-03-14] MEDS: PRENATAL VITAMINS W/ FOLIC ACID TABLET (FP) PO SCH (10:07)
[2017-03-14] MEDS: RANITIDINE HCL 150 MG TABLET (FP) PO SCH ×2 (10:07→21:28)
[2017-03-14] MEDS: NICOTINE 14 MG/24 HOURS TOPICAL PATCH TD SCH (10:08)
[2017-03-14] MEDS: BACITRACIN 0.9 GM PACKET TP SCH ×2 (10:08→21:28)
[2017-03-14] MEDS: LIDOCAINE 5% TOPICAL PATCH TP SCH (10:09)
[2017-03-14] MEDS: BUPRENORPHINE/NALOXONE 8 MG/2 MG FILM PACKET SL SCH (10:09)
[2017-03-14] MEDS: PREGABALIN 100 MG CAPSULE PO SCH ×2 (10:09→21:28)
[2017-03-14] MEDS ORDERED: INSULIN (NOVOLOG) ASPART 100 UNITS/ML 10ML VIAL ONE ×2 (11:47→16:38)
[2017-03-14] MEDS: ALBUTEROL SO4 2.5/IPRATROPIUM 0.5 INH SOL 3 ML VIAL.NEB. NEB PRN (14:00)
[2017-03-14] MEDS: BUPRENORPHINE/NALOXONE 2 MG/0.5 MG FILM PACKET SL SCH (17:05)
[2017-03-14] MEDS: ACETAMINOPHEN 325 MG TABLET (FP) PO PRN (19:13)
[2017-03-14] MEDS: QUEtiapine FUMARATE 50 MG TABLET PO SCH (21:28)
[2017-03-14] MEDS: traZODone HCL 50 MG TABLET (FP) PO SCH (21:28)
[2017-03-14] MEDS: THIAMINE HCL 100 MG TABLET (FP) PO SCH (21:28)
[2017-03-14] MEDS: LIDOCAINE PATCH REMOVAL MC SCH (21:29)
[2017-03-14] MEDS: diphenhydrAMINE HCL 50 MG CAPSULE PO PRN (21:29)
[2017-03-15] MEDS: metFORMIN HCL 500 MG TABLET (FP) PO SCH (06:21)
[2017-03-15] MEDS: HYDROCHLOROTHIAZIDE 25 MG TABLET (FP) PO SCH (06:21)
[2017-03-15] MEDS: INSULIN SLIDING SCALE (NOVOLOG) 1 VIAL SQ SCH ×4 (06:22→21:23)
[2017-03-15] MEDS: BACITRACIN 0.9 GM PACKET TP SCH ×2 (09:45→21:19)
[2017-03-15] MEDS: LIDOCAINE 5% TOPICAL PATCH TP SCH (09:45)
[2017-03-15] MEDS: ENOXAPARIN NA (PORCINE) 120 MG/0.8 ML DISP.SYRIN SQ SCH ×2 (09:45→21:22)
[2017-03-15] MEDS: NICOTINE 14 MG/24 HOURS TOPICAL PATCH TD SCH (09:46)
[2017-03-15] MEDS: amLODIPine BESYLATE 5 MG TABLET (FP) PO SCH ×2 (09:47→21:20)
[2017-03-15] MEDS: PRENATAL VITAMINS W/ FOLIC ACID TABLET (FP) PO SCH (09:47)
[2017-03-15] MEDS: RANITIDINE HCL 150 MG TABLET (FP) PO SCH ×2 (09:47→21:20)
[2017-03-15] MEDS: LISINOPRIL 20 MG TABLET (FP) PO SCH ×2 (09:47→21:19)
[2017-03-15] MEDS: PREGABALIN 100 MG CAPSULE PO SCH ×2 (09:48→21:20)
[2017-03-15] MEDS: BUPRENORPHINE/NALOXONE 8 MG/2 MG FILM PACKET SL SCH (09:48)
[2017-03-15] MEDS: BUPRENORPHINE/NALOXONE 2 MG/0.5 MG FILM PACKET SL SCH (17:04)
[2017-03-15] MEDS: ACETAMINOPHEN 325 MG TABLET (FP) PO PRN (19:01)
[2017-03-15] MEDS: QUEtiapine FUMARATE 50 MG TABLET PO SCH (21:20)
[2017-03-15] MEDS: traZODone HCL 50 MG TABLET (FP) PO SCH (21:20)
[2017-03-15] MEDS: diphenhydrAMINE HCL 50 MG CAPSULE PO PRN (21:21)
[2017-03-15] MEDS: LIDOCAINE PATCH REMOVAL MC SCH (21:22)
[2017-03-15] MEDS: THIAMINE HCL 100 MG TABLET (FP) PO SCH (21:23)
[2017-03-16] MEDS: metFORMIN HCL 500 MG TABLET (FP) PO SCH (06:17)
[2017-03-16] MEDS: HYDROCHLOROTHIAZIDE 25 MG TABLET (FP) PO SCH (06:17)
[2017-03-16] MEDS: ALBUTEROL SO4 2.5/IPRATROPIUM 0.5 INH SOL 3 ML VIAL.NEB. NEB PRN (06:17)
[2017-03-16] MEDS: INSULIN SLIDING SCALE (NOVOLOG) 1 VIAL SQ SCH ×4 (06:26→21:52)
[2017-03-16] MEDS: RANITIDINE HCL 150 MG TABLET (FP) PO SCH ×2 (10:12→21:31)
[2017-03-16] MEDS: PRENATAL VITAMINS W/ FOLIC ACID TABLET (FP) PO SCH (10:12)
[2017-03-16] MEDS: LISINOPRIL 20 MG TABLET (FP) PO SCH ×2 (10:12→21:31)
[2017-03-16] MEDS: amLODIPine BESYLATE 5 MG TABLET (FP) PO SCH ×2 (10:12→21:32)
[2017-03-16] MEDS: PREGABALIN 100 MG CAPSULE PO SCH ×2 (10:12→21:31)
[2017-03-16] MEDS: NICOTINE 14 MG/24 HOURS TOPICAL PATCH TD SCH (10:13)
[2017-03-16] MEDS: BACITRACIN 0.9 GM PACKET TP SCH ×2 (10:13→21:31)
[2017-03-16] MEDS: BUPRENORPHINE/NALOXONE 8 MG/2 MG FILM PACKET SL SCH (10:13)
[2017-03-16] MEDS: LIDOCAINE 5% TOPICAL PATCH TP SCH (10:13)
[2017-03-16] MEDS: ENOXAPARIN NA (PORCINE) 120 MG/0.8 ML DISP.SYRIN SQ SCH ×2 (10:14→21:35)
[2017-03-16] MEDS ORDERED: INSULIN (NOVOLOG) ASPART 100 UNITS/ML 10ML VIAL ONE (12:15)
[2017-03-16] MEDS ORDERED: PREGABALIN 100 MG CAPSULE PO SCH (14:00)
[2017-03-16] MEDS: ACETAMINOPHEN 325 MG TABLET (FP) PO PRN (14:25)
[2017-03-16] MEDS ORDERED: PT OWN MED DRAWER 7, Y5N ONE (14:25)
[2017-03-16] MEDS: BUPRENORPHINE/NALOXONE 2 MG/0.5 MG FILM PACKET SL SCH (18:12)
[2017-03-16] MEDS: QUEtiapine FUMARATE 50 MG TABLET PO SCH (21:31)
[2017-03-16] MEDS: traZODone HCL 50 MG TABLET (FP) PO SCH (21:31)
[2017-03-16] MEDS: diphenhydrAMINE HCL 50 MG CAPSULE PO PRN (21:32)
[2017-03-16] MEDS: THIAMINE HCL 100 MG TABLET (FP) PO SCH (21:32)
[2017-03-16] MEDS: LIDOCAINE PATCH REMOVAL MC SCH (22:19)
[2017-03-17] MEDS: ALBUTEROL SO4 2.5/IPRATROPIUM 0.5 INH SOL 3 ML VIAL.NEB. NEB PRN (00:08)
[2017-03-17] MEDS: ACETAMINOPHEN 325 MG TABLET (FP) PO PRN ×2 (06:46→13:37)
[2017-03-17] MEDS: metFORMIN HCL 500 MG TABLET (FP) PO SCH (06:46)
[2017-03-17] MEDS: HYDROCHLOROTHIAZIDE 25 MG TABLET (FP) PO SCH (06:46)
[2017-03-17] MEDS: INSULIN SLIDING SCALE (NOVOLOG) 1 VIAL SQ SCH ×4 (07:06→21:33)
[2017-03-17] MEDS: LISINOPRIL 20 MG TABLET (FP) PO SCH ×2 (09:48→21:26)
[2017-03-17] MEDS: RANITIDINE HCL 150 MG TABLET (FP) PO SCH ×2 (09:48→21:26)
[2017-03-17] MEDS: NICOTINE 14 MG/24 HOURS TOPICAL PATCH TD SCH (09:48)
[2017-03-17] MEDS: PRENATAL VITAMINS W/ FOLIC ACID TABLET (FP) PO SCH (09:48)
[2017-03-17] MEDS: amLODIPine BESYLATE 5 MG TABLET (FP) PO SCH ×2 (09:48→21:26)
[2017-03-17] MEDS: LIDOCAINE 5% TOPICAL PATCH TP SCH (09:48)
[2017-03-17] MEDS: BACITRACIN 0.9 GM PACKET TP SCH ×2 (09:48→21:26)
[2017-03-17] MEDS: PREGABALIN 100 MG CAPSULE PO SCH ×2 (09:48→21:26)
[2017-03-17] MEDS: ENOXAPARIN NA (PORCINE) 120 MG/0.8 ML DISP.SYRIN SQ SCH ×2 (09:49→21:29)
[2017-03-17] MEDS ORDERED: BUPRENORPHINE/NALOXONE 8 MG/2 MG FILM PACKET SL SCH (11:00)
[2017-03-17] MEDS ORDERED: INSULIN (NOVOLOG) ASPART 100 UNITS/ML 10ML VIAL ONE (11:31)
[2017-03-17] MEDS: BUPRENORPHINE/NALOXONE 8 MG/2 MG FILM PACKET SL SCH (11:33)
[2017-03-17] MEDS: BUPRENORPHINE/NALOXONE 2 MG/0.5 MG FILM PACKET SL SCH (18:15)
[2017-03-17] MEDS ORDERED: MAGNESIUM SULFATE 16 OZ CRYSTALS TP ONE (19:52)
[2017-03-17] MEDS: QUEtiapine FUMARATE 50 MG TABLET PO SCH (21:26)
[2017-03-17] MEDS: traZODone HCL 50 MG TABLET (FP) PO SCH (21:26)
[2017-03-17] MEDS: SULFAMETHOXAZOLE/TRIMETHOPRIM 800MG/160MG D.S. TABLET PO SCH (21:26)
[2017-03-17] MEDS: THIAMINE HCL 100 MG TABLET (FP) PO SCH (21:26)
[2017-03-17] MEDS: diphenhydrAMINE HCL 50 MG CAPSULE PO PRN (21:28)
[2017-03-17] MEDS: LIDOCAINE PATCH REMOVAL MC SCH (21:29)
[2017-03-18] MEDS: metFORMIN HCL 500 MG TABLET (FP) PO SCH (06:33)
[2017-03-18] MEDS: HYDROCHLOROTHIAZIDE 25 MG TABLET (FP) PO SCH (06:33)
[2017-03-18] MEDS: INSULIN SLIDING SCALE (NOVOLOG) 1 VIAL SQ SCH ×4 (07:11→21:22)
[2017-03-18] MEDS: BUPRENORPHINE/NALOXONE 8 MG/2 MG FILM PACKET SL SCH (09:49)
[2017-03-18] MEDS: amLODIPine BESYLATE 5 MG TABLET (FP) PO SCH ×2 (09:49→21:18)
[2017-03-18] MEDS: PREGABALIN 100 MG CAPSULE PO SCH ×2 (09:49→21:18)
[2017-03-18] MEDS: RANITIDINE HCL 150 MG TABLET (FP) PO SCH ×2 (09:49→21:18)
[2017-03-18] MEDS: LISINOPRIL 20 MG TABLET (FP) PO SCH ×2 (09:49→21:18)
[2017-03-18] MEDS: LIDOCAINE 5% TOPICAL PATCH TP SCH (09:49)
[2017-03-18] MEDS: SULFAMETHOXAZOLE/TRIMETHOPRIM 800MG/160MG D.S. TABLET PO SCH ×2 (09:49→21:18)
[2017-03-18] MEDS: PRENATAL VITAMINS W/ FOLIC ACID TABLET (FP) PO SCH (09:49)
[2017-03-18] MEDS: ENOXAPARIN NA (PORCINE) 120 MG/0.8 ML DISP.SYRIN SQ SCH ×2 (09:49→21:22)
[2017-03-18] MEDS: BACITRACIN 0.9 GM PACKET TP SCH ×2 (09:49→21:17)
[2017-03-18] MEDS: NICOTINE 14 MG/24 HOURS TOPICAL PATCH TD SCH (09:50)
[2017-03-18] MEDS: NICOTINE POLACRILEX 2 MG GUM BC PRN (09:51)
[2017-03-18 10:34] LABS: BASOPHIL 0.6 % (0-2.0); EOSINOPHIL 4.2 % (0-4.5); MCH 28.7 pg (25.7-33.7); MCHC 32.9 g/dl (32.0-36.0); MEAN CELL VOLUME 87.4 fl (80-96); MEAN PLT VOLUME 8.7 fl (7.5-11.1); NEUTROPHILS 59.4 % (42.8-82.8); PLATELET COUNT 247 K/MM3 (134-434); WHITE BLOOD COUNT 6.3 K/mm3 (4.0-10.0)
[2017-03-18 10:48] LABS: ALBUMIN 3.5 g/dl (3.4-5.0); ANION GAP 7 (8-16); CALCIUM 9.4 mg/dL (8.5-10.1); CO2 33 mmol/L (21-32); CREATININE 0.7 mg/dL (0.55-1.02); GLUCOSE,RANDOM 131 mg/dL (74-106); SGOT/AST 24 U/L (15-37); SGPT/ALT 44 U/L (12-78)
[2017-03-18 10:50] LABS: ALK PHOS 53 U/L (45-117); BILIRUBIN,TOTAL 0.4 mg/dL (0.2-1.0); TOT PROT 6.6 g/dl (6.4-8.2)
[2017-03-18] MEDS: BUPRENORPHINE/NALOXONE 2 MG/0.5 MG FILM PACKET SL SCH (17:13)
[2017-03-18] MEDS: ONDANSETRON *ODT* 4 MG TABLET SL PRN (17:13)
[2017-03-18] MEDS: THIAMINE HCL 100 MG TABLET (FP) PO SCH (21:17)
[2017-03-18] MEDS: diphenhydrAMINE HCL 50 MG CAPSULE PO PRN (21:17)
[2017-03-18] MEDS: traZODone HCL 50 MG TABLET (FP) PO SCH (21:18)
[2017-03-18] MEDS: QUEtiapine FUMARATE 50 MG TABLET PO SCH (21:18)
[2017-03-18] MEDS ORDERED: PT OWN MED DRAWER 7, Y5N ONE (21:20)
[2017-03-18] MEDS: LIDOCAINE PATCH REMOVAL MC SCH (21:22)
[2017-03-19] MEDS: HYDROCHLOROTHIAZIDE 25 MG TABLET (FP) PO SCH (06:24)
[2017-03-19] MEDS: ACETAMINOPHEN 325 MG TABLET (FP) PO PRN ×2 (06:24→14:46)
[2017-03-19] MEDS: metFORMIN HCL 500 MG TABLET (FP) PO SCH (06:24)
[2017-03-19] MEDS: INSULIN SLIDING SCALE (NOVOLOG) 1 VIAL SQ SCH ×4 (06:25→21:24)
[2017-03-19] MEDS: BACITRACIN 0.9 GM PACKET TP SCH ×2 (09:50→21:20)
[2017-03-19] MEDS: LIDOCAINE 5% TOPICAL PATCH TP SCH (09:51)
[2017-03-19] MEDS: SULFAMETHOXAZOLE/TRIMETHOPRIM 800MG/160MG D.S. TABLET PO SCH ×2 (09:51→21:20)
[2017-03-19] MEDS: PREGABALIN 100 MG CAPSULE PO SCH ×2 (09:51→21:20)
[2017-03-19] MEDS: ENOXAPARIN NA (PORCINE) 120 MG/0.8 ML DISP.SYRIN SQ SCH ×2 (09:51→21:17)
[2017-03-19] MEDS: amLODIPine BESYLATE 5 MG TABLET (FP) PO SCH ×2 (09:52→21:20)
[2017-03-19] MEDS: LISINOPRIL 20 MG TABLET (FP) PO SCH ×2 (09:52→21:21)
[2017-03-19] MEDS: NICOTINE 14 MG/24 HOURS TOPICAL PATCH TD SCH (09:52)
[2017-03-19] MEDS: RANITIDINE HCL 150 MG TABLET (FP) PO SCH ×2 (09:53→21:21)
[2017-03-19] MEDS: BUPRENORPHINE/NALOXONE 8 MG/2 MG FILM PACKET SL SCH (09:53)
[2017-03-19] MEDS: PRENATAL VITAMINS W/ FOLIC ACID TABLET (FP) PO SCH (09:53)
[2017-03-19] MEDS: NICOTINE POLACRILEX 2 MG GUM BC PRN ×2 (11:03→21:27)
[2017-03-19] MEDS: BUPRENORPHINE/NALOXONE 2 MG/0.5 MG FILM PACKET SL SCH (17:45)
[2017-03-19] MEDS ORDERED: GLYCERIN 1 RECTAL SUPPOSITORY, ADULT PR ONE (19:18)
[2017-03-19] MEDS ORDERED: PT OWN MED DRAWER 7, Y5N ONE (20:17)
[2017-03-19] MEDS: traZODone HCL 50 MG TABLET (FP) PO SCH (21:21)
[2017-03-19] MEDS: THIAMINE HCL 100 MG TABLET (FP) PO SCH (21:21)
[2017-03-19] MEDS: QUEtiapine FUMARATE 50 MG TABLET PO SCH (21:21)
[2017-03-19] MEDS: diphenhydrAMINE HCL 50 MG CAPSULE PO PRN (21:22)
[2017-03-19] MEDS ORDERED: INSULIN (NOVOLOG) ASPART 100 UNITS/ML 10ML VIAL ONE (21:23)
[2017-03-19] MEDS: LIDOCAINE PATCH REMOVAL MC SCH (22:07)
[2017-03-20] MEDS: ACETAMINOPHEN 325 MG TABLET (FP) PO PRN ×2 (00:43→23:30)
[2017-03-20] MEDS: metFORMIN HCL 500 MG TABLET (FP) PO SCH (06:29)
[2017-03-20] MEDS: HYDROCHLOROTHIAZIDE 25 MG TABLET (FP) PO SCH (06:29)
[2017-03-20] MEDS: INSULIN SLIDING SCALE (NOVOLOG) 1 VIAL SQ SCH ×4 (06:30→21:12)
[2017-03-20] MEDS: BUPRENORPHINE/NALOXONE 8 MG/2 MG FILM PACKET SL SCH (10:15)
[2017-03-20] MEDS: LISINOPRIL 20 MG TABLET (FP) PO SCH ×2 (10:15→21:17)
[2017-03-20] MEDS: amLODIPine BESYLATE 5 MG TABLET (FP) PO SCH ×2 (10:15→21:17)
[2017-03-20] MEDS: BACITRACIN 0.9 GM PACKET TP SCH ×2 (10:15→21:14)
[2017-03-20] MEDS: SULFAMETHOXAZOLE/TRIMETHOPRIM 800MG/160MG D.S. TABLET PO SCH ×2 (10:15→21:14)
[2017-03-20] MEDS: PRENATAL VITAMINS W/ FOLIC ACID TABLET (FP) PO SCH (10:15)
[2017-03-20] MEDS: PREGABALIN 100 MG CAPSULE PO SCH ×2 (10:15→21:16)
[2017-03-20] MEDS: ENOXAPARIN NA (PORCINE) 120 MG/0.8 ML DISP.SYRIN SQ SCH ×2 (10:16→21:13)
[2017-03-20] MEDS: LIDOCAINE 5% TOPICAL PATCH TP SCH (10:16)
[2017-03-20] MEDS: NICOTINE 14 MG/24 HOURS TOPICAL PATCH TD SCH (10:17)
[2017-03-20] MEDS: RANITIDINE HCL 150 MG TABLET (FP) PO SCH ×2 (10:18→21:15)
[2017-03-20] MEDS: NICOTINE POLACRILEX 2 MG GUM BC PRN (10:18)
[2017-03-20] MEDS ORDERED: INSULIN (NOVOLOG) ASPART 100 UNITS/ML 10ML VIAL ONE ×2 (11:46→21:48)
[2017-03-20] MEDS: BUPRENORPHINE/NALOXONE 2 MG/0.5 MG FILM PACKET SL SCH (17:46)
[2017-03-20] MEDS: traZODone HCL 50 MG TABLET (FP) PO SCH (21:14)
[2017-03-20] MEDS: THIAMINE HCL 100 MG TABLET (FP) PO SCH (21:15)
[2017-03-20] MEDS: QUEtiapine FUMARATE 50 MG TABLET PO SCH (21:15)
[2017-03-20] MEDS: diphenhydrAMINE HCL 50 MG CAPSULE PO PRN (21:16)
[2017-03-20] MEDS: LIDOCAINE PATCH REMOVAL MC SCH (21:17)
[2017-03-21] MEDS: metFORMIN HCL 500 MG TABLET (FP) PO SCH (06:18)
[2017-03-21] MEDS: HYDROCHLOROTHIAZIDE 25 MG TABLET (FP) PO SCH (06:18)
[2017-03-21] MEDS: INSULIN SLIDING SCALE (NOVOLOG) 1 VIAL SQ SCH ×4 (06:18→21:23)
[2017-03-21] MEDS: ALBUTEROL SO4 2.5/IPRATROPIUM 0.5 INH SOL 3 ML VIAL.NEB. NEB PRN (06:19)
[2017-03-21] MEDS ORDERED: PT OWN MED DRAWER 7, Y5N ONE (08:25)
[2017-03-21] MEDS: RANITIDINE HCL 150 MG TABLET (FP) PO SCH ×2 (10:09→21:19)
[2017-03-21] MEDS: PRENATAL VITAMINS W/ FOLIC ACID TABLET (FP) PO SCH (10:09)
[2017-03-21] MEDS: SULFAMETHOXAZOLE/TRIMETHOPRIM 800MG/160MG D.S. TABLET PO SCH ×2 (10:09→21:19)
[2017-03-21] MEDS: PREGABALIN 100 MG CAPSULE PO SCH ×2 (10:10→21:25)
[2017-03-21] MEDS: BACITRACIN 0.9 GM PACKET TP SCH ×2 (10:11→21:19)
[2017-03-21] MEDS: ENOXAPARIN NA (PORCINE) 120 MG/0.8 ML DISP.SYRIN SQ SCH ×2 (10:11→21:25)
[2017-03-21] MEDS: BUPRENORPHINE/NALOXONE 8 MG/2 MG FILM PACKET SL SCH ×2 (10:11→21:19)
[2017-03-21] MEDS: NICOTINE 14 MG/24 HOURS TOPICAL PATCH TD SCH (10:11)
[2017-03-21] MEDS: LIDOCAINE 5% TOPICAL PATCH TP SCH (10:11)
[2017-03-21] MEDS: NICOTINE POLACRILEX 2 MG GUM BC PRN ×2 (10:13→18:03)
[2017-03-21] MEDS: amLODIPine BESYLATE 5 MG TABLET (FP) PO SCH ×2 (10:40→21:19)
[2017-03-21] MEDS: LISINOPRIL 20 MG TABLET (FP) PO SCH ×2 (10:42→21:19)
[2017-03-21] MEDS: ACETAMINOPHEN 325 MG TABLET (FP) PO PRN (12:10)
[2017-03-21] MEDS: CYCLOBENZAPRINE HCL 10 MG TABLET (FP) PO PRN (15:05)
[2017-03-21] MEDS: THIAMINE HCL 100 MG TABLET (FP) PO SCH (21:19)
[2017-03-21] MEDS: traZODone HCL 50 MG TABLET (FP) PO SCH (21:19)
[2017-03-21] MEDS: QUEtiapine FUMARATE 50 MG TABLET PO SCH (21:19)
[2017-03-21] MEDS: diphenhydrAMINE HCL 50 MG CAPSULE PO PRN (21:20)
[2017-03-21] MEDS: LIDOCAINE PATCH REMOVAL MC SCH (21:25)
[2017-03-22] MEDS ORDERED: INSULIN (NOVOLOG) ASPART 100 UNITS/ML 10ML VIAL ONE (06:21)
[2017-03-22] MEDS: INSULIN SLIDING SCALE (NOVOLOG) 1 VIAL SQ SCH ×4 (06:21→21:15)
[2017-03-22] MEDS: metFORMIN HCL 500 MG TABLET (FP) PO SCH (06:23)
[2017-03-22] MEDS: ENOXAPARIN NA (PORCINE) 120 MG/0.8 ML DISP.SYRIN SQ SCH ×2 (09:46→21:15)
[2017-03-22] MEDS: SULFAMETHOXAZOLE/TRIMETHOPRIM 800MG/160MG D.S. TABLET PO SCH ×2 (09:47→21:11)
[2017-03-22] MEDS: amLODIPine BESYLATE 5 MG TABLET (FP) PO SCH (09:47)
[2017-03-22] MEDS: RANITIDINE HCL 150 MG TABLET (FP) PO SCH ×2 (09:47→21:11)
[2017-03-22] MEDS: PRENATAL VITAMINS W/ FOLIC ACID TABLET (FP) PO SCH (09:47)
[2017-03-22] MEDS: PREGABALIN 100 MG CAPSULE PO SCH ×2 (09:47→21:11)
[2017-03-22] MEDS: LISINOPRIL 20 MG TABLET (FP) PO SCH ×2 (09:47→21:11)
[2017-03-22] MEDS: LIDOCAINE 5% TOPICAL PATCH TP SCH (09:48)
[2017-03-22] MEDS: BUPRENORPHINE/NALOXONE 8 MG/2 MG FILM PACKET SL SCH ×2 (09:48→21:11)
[2017-03-22] MEDS: BACITRACIN 0.9 GM PACKET TP SCH ×2 (09:49→21:14)
[2017-03-22] MEDS: NICOTINE 14 MG/24 HOURS TOPICAL PATCH TD SCH (09:49)
[2017-03-22] MEDS: NICOTINE POLACRILEX 2 MG GUM BC PRN ×2 (10:13→12:37)
[2017-03-22] MEDS ORDERED: amLODIPine BESYLATE 5 MG TABLET (FP) PO SCH (16:32)
[2017-03-22] MEDS: traZODone HCL 50 MG TABLET (FP) PO SCH (21:10)
[2017-03-22] MEDS: THIAMINE HCL 100 MG TABLET (FP) PO SCH (21:10)
[2017-03-22] MEDS: diphenhydrAMINE HCL 50 MG CAPSULE PO PRN (21:12)
[2017-03-22] MEDS: LIDOCAINE PATCH REMOVAL MC SCH (21:15)
[2017-03-22] MEDS: QUEtiapine FUMARATE 50 MG TABLET PO SCH (21:16)
[2017-03-23] MEDS: metFORMIN HCL 500 MG TABLET (FP) PO SCH (07:07)
[2017-03-23] MEDS: INSULIN SLIDING SCALE (NOVOLOG) 1 VIAL SQ SCH (07:07)
[2017-03-23 07:14] VITALS: TEMP 98
--- NOTE | 2017-03-23 08:32 | PN ---
Psychiatric Progress Note Vital Signs: Vital Signs Period Temp Pulse Resp BP Sys/Puente Pulse Ox Last 24 Hr 98.0 F 99-114 18 114-142/74-83 Date of Session: 03/23/17 Chief Complaint:: Discharge visit HPI: Patient addressed Opioid and Cannabis dependence comorbid with Substance induce mood disorder. ROS: Sigfnificant for multiple medical problems(see medical history). Current Medications: Active Medications Generic Name Dose Route Start Last Admin Trade Name Freq PRN Reason Stop Dose Admin Acetaminophen 650 mg 03/02/17 16:51 03/21/17 12:10 Tylenol - PO 650 mg Q4H PRN Administration PAIN Al Hydroxide/Mg Hydroxide 30 ml 03/02/17 16:51 Mylanta Oral Suspension - PO Q6H PRN DYSPEPSIA Albuterol/Ipratropium 1 amp 03/13/17 15:05 03/21/17 06:19 Duoneb - NEB 1 amp Q4H PRN Administration SHORTNESS OF BREATH Buprenorphine/Naloxone 1 each 03/21/17 22:00 03/22/17 21:11 Suboxone 8mg/2mg Sl Film - SL 1 each BID NI Administration Cyclobenzaprine HCl 10 mg 03/03/17 13:34 03/21/17 15:05 Flexeril - PO 10 mg TID PRN Administration MUSCLE SPASMS Diphenhydramine HCl 50 mg 03/02/17 16:51 03/22/17 21:12 Benadryl - PO 50 mg HSMR1 PRN Administration INSOMNIA Enoxaparin Sodium 110 mg 03/02/17 22:00 03/22/17 21:15 Lovenox - SQ 110 mg BID NI Administration Eucalyptus/Menthol/Phenol/Sorbitol 1 each 03/02/17 16:51 Cepastat Lozenge - MM Q4H PRN SORE THROAT Guaifenesin 10 ml 03/02/17 16:51 Robitussin Dm - PO Q6H PRN COUGH Hydroxyzine Pamoate 50 mg 03/02/17 16:51 03/08/17 07:52 Vistaril - PO 50 mg Q4H PRN Administration AGITATION Insulin Aspart 1 vial 03/02/17 22:00 03/23/17 07:07 Novolog Vial Sliding Scale - SQ Not Given ACHS [facility] Protocol Lidocaine 1 patch 03/13/17 14:30 03/22/17 09:48 Lidoderm Patch - TP 1 patch DAILY NI Administration Lisinopril 40 mg 03/04/17 20:49 03/22/17 21:11 Prinivil PO 40 mg BID NI Administration Loperamide HCl 4 mg 03/02/17 16:51 03/07/17 13:50 Imodium - PO 4 mg Q6H PRN Administration DIARRHEA Magnesium Citrate 300 ml 03/02/17 16:51 Citroma - PO Q48H PRN CONSTIPATION Magnesium Hydroxide 30 ml 03/02/17 16:51 03/19/17 13:08 Milk Of Magnesia - PO 30 ml DAILY PRN Administration CONSTIPATION Metformin HCl 500 mg 03/03/17 07:00 03/23/17 07:07 Glucophage - PO 500 mg DAILY@0700 NI Administration Miscellaneous 1 each 03/12/17 22:00 03/22/17 21:15 Lidoderm Patch Removal MC 1 each DAILY@2200 NI Administration Nicotine 14 mg 03/03/17 10:00 03/22/17 09:49 Nicoderm Patch - TD Not Given DAILY NI Nicotine Polacrilex 2 mg 03/02/17 16:51 03/22/17 12:37 Nicorette Gum - BC 2 mg Q2H PRN Administration NICOTINE REPLACEMENT RX Nitroglycerin 0.4 mg 03/04/17 20:40 Nitrostat - SL Q5M PRN FOR CHEST PAIN Pregabalin 200 mg 03/13/17 22:00 03/22/17 21:11 Lyrica - PO 200 mg BID NI Administration Multivit/Folic Acid/Iron 1 tab 03/03/17 10:00 03/22/17 09:47 Vitamins (Sjr) - PO 1 tab DAILY NI Administration Pseudoephedrine/Triprolidine 1 combo 03/02/17 16:51 Actifed - PO TID PRN NASAL CONGESTION Quetiapine Fumarate 50 mg 03/05/17 22:00 03/22/17 21:16 Seroquel - PO 50 mg HS NI Administration Ranitidine HCl 150 mg 03/02/17 22:00 03/22/17 21:11 Zantac - PO 150 mg BID NI Administration Thiamine HCl 100 mg 03/02/17 22:00 03/22/17 21:10 Vitamin B1 - PO 100 mg HS NI Administration Trazodone HCl 150 mg 03/02/17 22:00 03/22/17 21:10 Desyrel - PO 150 mg HS NI Administration Current Side Effect: No Lab tests ordered: No Lab tests reviewed: Yes Provider note:: Patient completed this program today.she has met her treatment goals and will continue to address her issues on outpatient basis at [facility] treatment program.Patient reports finding that current medications including Seroquel 50 mg o hs and Trazodone 150 mg po hs help to cope with anxiety,mood instability.Scripts for 30 days supply provided. Patient identifies areas of difficulties and ways ,support,coping skills she can utilze to maintain recovery. supportive therapy provided. patient is stable for discharge today. Total face to face time:: 30 Mental Status Exam - Mental Status Exam Alert and Oriented to: Time, Place, Person Cognitive Function: Grossly Intact Patient Appearance: Well Groomed Mood: Euthymic Affect: Appropriate, Mood Congruent Patient Behavior: Cooperative Speech Pattern: Clear Voice Loudness: Normal Thought Process: Goal Oriented Thought Disorder: Not Present Suicidal Ideation: Denies Homicidal Ideation: Denies Insight/Judgement: Fair Sleep: Fair Appetite: Good Muscle strength/Tone: Normal Gait/Station: Normal Psychiatric Treatment Plan - Problem List (1) Uncomplicated opioid dependence Current Visit: Yes (2) Cannabis dependence, uncomplicated Current Visit: Yes (3) Hypertension Current Visit: Yes Qualifiers: Hypertension type: essential hypertension Qualified Code(s): I10 - Essential (primary) hypertension Comment: on meds, sees primary (4) Leg DVT (deep venous thromboembolism), chronic Current Visit: Yes Qualifiers: Laterality: bilateral Qualified Code(s): I82.503 - Chronic embolism and thrombosis of unspecified deep veins of lower extremity, bilateral (5) Morbid obesity Current Visit: Yes Comment: thinking about wt loss surgery - to f/u with primary (6) Neuropathic arthritis Current Visit: Yes (7) Cigarette nicotine dependence with nicotine-induced disorder Current Visit: Yes Comment: trying to cut down - counseled cessation (8) Diabetes mellitus treated with oral medication Current Visit: Yes Comment: sees primary, BG 128 yesterday (9) Ovarian cyst Current Visit: Yes (10) Substance induced mood disorder Current Visit: Yes
[2017-03-23] MEDS: BUPRENORPHINE/NALOXONE 8 MG/2 MG FILM PACKET SL SCH (09:58)
[2017-03-23] MEDS: ENOXAPARIN NA (PORCINE) 120 MG/0.8 ML DISP.SYRIN SQ SCH (09:58)
[2017-03-23] MEDS: LIDOCAINE 5% TOPICAL PATCH TP SCH (09:59)
[2017-03-23] MEDS: LISINOPRIL 20 MG TABLET (FP) PO SCH (10:00)
[2017-03-23] MEDS: PRENATAL VITAMINS W/ FOLIC ACID TABLET (FP) PO SCH (10:00)
[2017-03-23] MEDS: RANITIDINE HCL 150 MG TABLET (FP) PO SCH (10:00)
[2017-03-23] MEDS: PREGABALIN 100 MG CAPSULE PO SCH (10:00)
[2017-03-23] MEDS: NICOTINE 14 MG/24 HOURS TOPICAL PATCH TD SCH (10:01)
[2017-03-23] MEDS: NICOTINE POLACRILEX 2 MG GUM BC PRN (10:02)
[2017-03-23 10:06] VITALS: BP 137/71; PULSE 108
== END 2017-03-23 10:46 | disposition home or self-care (01) | DRG 772 ==
LOC: YASAS 13:28 → Y3E 16:19
PROVIDERS: ADMIT Psychiatry & Neurology Psychiatry; ATTEND Psychiatry & Neurology Psychiatry
PROC: HZ42ZZZ Group Counseling for Substance Abuse Treatment, Cognitive-Behavioral (ICD-10-PCS; principal; 2017-03-02)
DX: F11.20 Opioid dependence, uncomplicated (principal); F12.20 Cannabis dependence, uncomplicated; F17.209 Nicotine dependence, unspecified, with unspecified nicotine-induced disorders; F19.24 Other psychoactive substance dependence with psychoactive substance-induced mood disorder; F41.8 Other specified anxiety disorders; I16.0 Hypertensive urgency; I82.503 Chronic embolism and thrombosis of unspecified deep veins of lower extremity, bilateral; E66.01 Morbid (severe) obesity due to excess calories; Z68.41 Body mass index [BMI] 40.0-44.9, adult; E11.9 Type 2 diabetes mellitus without complications; R00.0 Tachycardia, unspecified; N83.209 Unspecified ovarian cyst, unspecified side; M14.60 Charcot's joint, unspecified site; Z79.84 Long term (current) use of oral hypoglycemic drugs; Z95.828 Presence of other vascular implants and grafts; R55 Syncope and collapse; R26.2 Difficulty in walking, not elsewhere classified; Z99.89 Dependence on other enabling machines and devices; W18.39XA Other fall on same level, initial encounter; Z91.81 History of falling; Y93.89 Activity, other specified; Y92.239 Unspecified place in hospital as the place of occurrence of the external cause
CPT/HCPCS: 36415; 70450-TC; 80053; 81003; 85025; 85027; 85610; 86593; 93005; 93010; 94640

== ENCOUNTER 2017-03-04 21:28 | Emergency (ER) | payer OTHER ==
[2017-03-04 21:42] VITALS: BP 121/80; TEMP 98.4; BMI 41.5
[2017-03-04] MEDS ORDERED: FAMOTIDINE 20 MG/50 ML IVPB 50 ML IVPB ONE (23:44)
[2017-03-04] MEDS ORDERED: MAG HYDROX/AL HYDROX/SIMETH 30 ML UNIT-DOSE CUP PO ONE (23:44)
[2017-03-04] MEDS ORDERED: SODIUM CHLORIDE 1,000 ML IV STA (23:44)
[2017-03-04] MEDS ORDERED: ONDANSETRON 4 MG/2 ML VIAL IVPB ONE (23:44)
--- NOTE | 2017-03-05 00:01 | PDOC ---
History of Present Illness - General Chief Complaint: Syncope/Near Syncope Stated Complaint: SYNCOPE Time Seen by Provider: 03/04/17 21:50 History Source: Patient Exam Limitations: No Limitations - History of Present Illness Initial Comments: 03/04/17 23:58 47 F with h/o hypertension, DVT, NIDDM2, anxiety, depression and polysubstance abuse, presenting with N/V and epigastric pain. Pt reports vomiting several times today. Also reports loose stool but no diarrhea. Pt complains of epigastric pain but no lower abdominal pain. Denies CP/SOB. Pt also reports having a syncopal episode in the context of vomiting. Denies lightheadedness, denies palpitations. No F/C. Denies headstrike. Past History - Past Medical History Allergies/Adverse Reactions: Allergies Allergy/AdvReac Type Severity Reaction Status Date / Time No Known Allergies Allergy Verified 03/04/17 21:43 Home Medications: Ambulatory Orders Pregabalin [Lyrica] 100 mg PO TID 10/02/16 Enoxaparin [Lovenox -] 110 mg SQ BID #60 syr 12/17/16 Lisinopril [Prinivil -] 40 mg PO DAILY #30 tablet 12/26/16 Diphenhydramine [Benadryl -] 50 mg PO HS 03/02/17 Ibuprofen [Motrin -] 600 mg PO TID PRN 03/02/17 Metformin HCl 500 mg PO DAILY 03/02/17 Nifedipine ER [Procardia Xl -] 90 mg PO DAILY 03/02/17 Trazodone HCl [Desyrel -] 150 mg PO HS 03/02/17 Anemia: No Asthma: No Cancer: No Cardiac Disorders: No CVA: No COPD: No CHF: No DVT: Yes Dementia: No Diabetes: Yes (type 2) GI Disorders: Yes (diarrhea) Disorders: Yes (bladder prolapse 2011) HTN: Yes Hypercholesterolemia: No Kidney Stones: Yes Liver Disease: No Psychiatric Problems: Yes (anxiety depression) Suicide Attempt (Hx): No Seizures: No Thyroid Disease: No - Surgical History Abdominal Surgery: Yes Appendectomy: No Cardiac Surgery: No Cholecystectomy: Yes (2003) Lung Surgery: No Neurologic Surgery: No Orthopedic Surgery: No - Immunization History Td Vaccination: Yes Immunization Up to Date: Yes - Psycho/Social/Smoking Cessation Hx Anxiety: Yes Suicidal Ideation: No Smoking Status: No Smoking History: Current every day smoker Have you smoked in the past 12 months: Yes Number of Cigarettes Smoked Daily: 3 Cigars Per Day: 0 Information on smoking cessation initiated: No 'Breaking Loose' booklet given: 03/02/17 Hx Alcohol Use: No Drug/Substance Use Hx: Yes Substance Use Type: Marijuana, Opiates Hx Substance Use Treatment: Yes (2009 [facility]) Review of Systems - Review of Systems Comments:: 03/05/17 00:03 "GENERAL/CONSTITUTIONAL: No fever, no lethargy HEAD, EYES, EARS, NOSE AND THROAT: No eye discharge. No ear pain or discharge. No sore throat. CARDIOVASCULAR: No chest pain. RESPIRATORY: No cough, no wheezing. GASTROINTESTINAL: +abdominal pain, nausea, vomiting. No diarrhea or constipation. GENITOURINARY: No dysuria, no change in urine output MUSCULOSKELETAL: No joint pain. No neck or back pain. SKIN: No rash NEUROLOGIC: No headache, loss of consciousness, irritability. ENDOCRINE: No increased thirst. No abnormal weight change. ALLERGIC/IMMUNOLOGIC: No hives or skin allergy. " *Physical Exam - Vital Signs Last Vital Signs Temp Pulse Resp BP Pulse Ox 98.4 F 107 H 18 121/80 97 03/04/17 21:40 03/04/17 21:40 03/04/17 21:40 03/04/17 21:40 03/04/17 21:40 - Physical Exam Comments: 03/05/17 00:03 "GENERAL: Awake, alert, and appropriately interactive HEAD: no signs of trauma EYES: PERRLA, clear conjunctiva NOSE: Nose is clear without discharge EARS: EACs and TMs are normal THROAT: Moist mucosa, oropharynx is clear without erythema or exudates, NECK: Supple, no adenopathy, no meningismus, no midline tenderness CHEST: Lungs are clear without crackles, or wheezes HEART: Regular rhythm, normal S1 and S2, no murmurs ABDOMEN: Mild epigastric TTP, Soft and nontender with normal bowel sounds, no organomegaly, no mass, no rebound, no guarding EXTREMITIES: Normal. R hand well perfused. Injection site clean. NEURO: Behavior normal for age, normal cranial nerves, normal tone SKIN: Unremarkable, no rash, no swelling, no bruising, no signs of injury " Heart Score/ECG Review - ECG Impressions Comment:: 03/05/17 00:04 Sinus tachycardia, no SAMUEL/STDs, no TWIs, intervals wnl, QTc 487, QRS 94, no delta waves ED Treatment Course - LABORATORY CBC & Chemistry Diagram: 03/05/17 00:20 03/05/17 00:20 Medical Decision Making - Medical Decision Making 03/05/17 00:06 47 F with N/V/D and epigastric pain. Likely viral gastroenteritis vs gastritis vs pancreatitis. Abdomen with only epigastric TTP. Pt's syncopal episode likely vasovagal in the context of vomiting. No EKG findings to suggest arrhythmia. - Labs - IVF, GI cocktail 03/05/17 06:09 CBC,CMP WBC 11.6 K/mm3 (4.0-10.0) H D 03/05/17 00:20 RBC 4.91 M/mm3 (3.60-5.2) 03/05/17 00:20 Hgb 14.2 GM/dL (10.7-15.3) 03/05/17 00:20 Hct 42.5 % (32.4-45.2) 03/05/17 00:20 MCV 86.4 fl (80-96) 03/05/17 00:20 MCH 29.0 pg (25.7-33.7) 03/05/17 00:20 MCHC 33.5 g/dl (32.0-36.0) 03/05/17 00:20 RDW 13.1 % (11.6-15.6) 03/05/17 00:20 Plt Count 397 K/MM3 (134-434) D 03/05/17 00:20 MPV 9.0 fl (7.5-11.1) 03/05/17 00:20 Neutrophils % 81.3 % (42.8-82.8) 03/05/17 00:20 Lymphocytes % 11.6 % (8-40) D 03/05/17 00:20 Monocytes % 6.2 % (3.8-10.2) 03/05/17 00:20 Eosinophils % 0.1 % (0-4.5) 03/05/17 00:20 Basophils % 0.8 % (0-2.0) 03/05/17 00:20 Sodium 143 mmol/L (136-145) 03/05/17 00:20 Potassium 3.9 mmol/L (3.5-5.1) 03/05/17 00:20 Chloride 102 mmol/L (98-107) 03/05/17 00:20 Carbon Dioxide 28 mmol/L (21-32) 03/05/17 00:20 Anion Gap 13 (8-16) 03/05/17 00:20 BUN 19 mg/dL (7-18) H 03/05/17 00:20 Creatinine 0.9 mg/dL (0.55-1.02) D 03/05/17 00:20 Creat Clearance w eGFR > 60 (>60) 03/05/17 00:20 Random Glucose 171 mg/dL (74-106) H 03/05/17 00:20 Calcium 9.8 mg/dL (8.5-10.1) 03/05/17 00:20 Total Bilirubin 0.6 mg/dL (0.2-1.0) D 03/05/17 00:20 AST 22 U/L (15-37) D 03/05/17 00:20 ALT 27 U/L (12-78) 03/05/17 00:20 Alkaline Phosphatase 64 U/L (45-117) 03/05/17 00:20 Creatine Kinase 74 IU/L (26-192) 03/05/17 00:20 Troponin I < 0.02 ng/ml (0.00-0.05) 03/05/17 00:20 Total Protein 7.7 g/dl (6.4-8.2) 03/05/17 00:20 Albumin 4.2 g/dl (3.4-5.0) 03/05/17 00:20 Lipase 173 U/L (73-393) 03/05/17 00:20 Pt reassessed. Now feels significantly better. Denies N/V. Able to tolerate PO fluids without issue. Pt to be transported back to [facility] rehab *DC/Admit/Observation/Transfer Diagnosis at time of Disposition: Epigastric abdominal pain - Discharge Dispostion Disposition: I.P. ALCOHOL/SUBS ABUSE REHAB Condition at time of disposition: Good Admit: No - Patient Instructions Printed Discharge Instructions: DI for Syncope in Adults (Fainting) Additional Instructions: Drink plenty of fluids to stay hydrated. Return to the ER if you experience worsening or persistent symptoms, severe headache, vomiting, chest pain, shortness of breath, or any other concerning symptoms.
[2017-03-05 00:25] LABS: URINE APPEARANCE CLOUDY; URINE BILIRUBIN NEGATIVE (NEGATIVE); URINE BLOOD NEGATIVE (NEGATIVE); URINE COLOR YELLOW; URINE GLUCOSE (UA) 1+ (NEGATIVE); URINE KETONE TRACE (NEGATIVE); URINE LEUK ESTERASE NEGATIVE (NEGATIVE); URINE NITRITE NEGATIVE (NEGATIVE); URINE UROBILINOGEN NEGATIVE mg/dL (0.2-1.0)
[2017-03-05 00:29] LABS: URINE PROTEIN 2+ (NEGATIVE)
[2017-03-05 00:31] LABS: URINE BACTERIA FEW /hpf (NONE SEEN); URINE HYALINE CAST 5 /lpf; URINE MUCUS RARE; URINE RBC 3 /hpf (0-3); URINE WBC 3 /hpf (3-5)
[2017-03-05] MEDS ORDERED: ONDANSETRON 4 MG/2 ML VIAL ONE ×2 (00:40→02:59)
[2017-03-05] MEDS ORDERED: FAMOTIDINE 20 MG/50 ML IVPB 50 ML IVPB ONE (00:41)
[2017-03-05 00:48] LABS: BASOPHIL 0.8 % (0-2.0); EOSINOPHIL 0.1 % (0-4.5); MCHC 33.5 g/dl (32.0-36.0); MEAN CELL VOLUME 86.4 fl (80-96); NEUTROPHILS 81.3 % (42.8-82.8); PLATELET COUNT 397 K/MM3 (134-434); RDW 13.1 % (11.6-15.6); WHITE BLOOD COUNT 11.6 K/mm3 (4.0-10.0)
[2017-03-05 00:49] LABS: URINE MARIJUANA THC POSITIVE ng/ml (CUTOFF=50)
[2017-03-05 01:12] LABS: ALBUMIN 4.2 g/dl (3.4-5.0); ANION GAP 13 (8-16); CALCIUM 9.8 mg/dL (8.5-10.1); CO2 28 mmol/L (21-32); CREATININE 0.9 mg/dL (0.55-1.02); GLUCOSE,RANDOM 171 mg/dL (74-106); SGPT/ALT 27 U/L (12-78)
[2017-03-05 01:13] LABS: CPK 74 IU/L (26-192); TROPONIN I < 0.02 ng/ml (0.00-0.05)
[2017-03-05 01:14] LABS: ALK PHOS 64 U/L (45-117); BILIRUBIN,TOTAL 0.6 mg/dL (0.2-1.0); TOT PROT 7.7 g/dl (6.4-8.2)
[2017-03-05 01:15] LABS: SGOT/AST 22 U/L (15-37)
[2017-03-05] MEDS ORDERED: SODIUM CHLORIDE 1,000 ML IV STA (02:47)
[2017-03-05] MEDS ORDERED: ONDANSETRON 4 MG/2 ML VIAL IVPB ONE ×2 (02:47→06:11)
[2017-03-05 05:41] VITALS: PULSE 103
--- NOTE | 2017-03-06 13:13 | EKG ---
Test Reason : Blood Pressure : / mmHG Vent. Rate : 108 BPM Atrial Rate : 108 BPM P-R Int : 146 ms QRS Dur : 094 ms QT Int : 364 ms P-R-T Axes : 014 076 025 degrees QTc Int : 487 ms SINUS TACHYCARDIA POSSIBLE LEFT ATRIAL ENLARGEMENT BORDERLINE ECG WHEN COMPARED WITH ECG OF 02-MAR-2017 20:01, NO SIGNIFICANT CHANGE WAS FOUND Confirmed by DUSTIN PRESLEY MD ([id number]) on 03/06/2017 1:13:27 PM Referred By: Confirmed By:DUSTIN PRESLEY MD
== END 2017-03-05 06:27 | disposition other institution (70) ==
LOC: JER 21:28
PROC: 3E0337Z Introduction of Electrolytic and Water Balance Substance into Peripheral Vein, Percutaneous Approach (ICD-10-PCS; principal; 2017-03-04)
PROC: 3E033GC Introduction of Other Therapeutic Substance into Peripheral Vein, Percutaneous Approach (ICD-10-PCS; 2017-03-04)
PROC: 3E033GC Introduction of Other Therapeutic Substance into Peripheral Vein, Percutaneous Approach (ICD-10-PCS; 2017-03-04)
DX: R10.13 Epigastric pain (principal); I10 Essential (primary) hypertension; E11.9 Type 2 diabetes mellitus without complications; Z79.84 Long term (current) use of oral hypoglycemic drugs; F41.8 Other specified anxiety disorders; F19.20 Other psychoactive substance dependence, uncomplicated; Z86.718 Personal history of other venous thrombosis and embolism; Z79.01 Long term (current) use of anticoagulants
CPT/HCPCS: 36415; 80053; 80307; 81003; 81015; 83690; 84484; 84703; 85025; 93005; 93010; 99284-25

== ENCOUNTER 2017-05-02 14:10 | Emergency (ER) | payer OTHER ==
[2017-05-02 14:16] VITALS: BP 137/92; PULSE 110; TEMP 98.5; BMI 45.9
--- NOTE | 2017-05-02 16:26 | PDOC ---
History of Present Illness - General Chief Complaint: Edema Stated Complaint: Shortness of Breath Time Seen by Provider: 05/02/17 16:10 - History of Present Illness Initial Comments: 05/02/17 17:40 The patient is a 47 year old female with a history of DM, polysubstance abuse, CHF, DVT s/p IVC fliter on lovanox who presents for evaluation of lower extremity swelling and SOB. The patient reports a 1 month history of of lower extremity edema that has been getting progressively worse over the past few days prompting her presentation to the ED today. She states that she was on lasix, but was recently taken off of the lasix and has not been restarted on it yet. Throughout this time she also endorses some SOB at rest as well. She denies fevers, chills, chest pain, abdominal pain, or changes with urination or bowel movements. Past History - Past Medical History Allergies/Adverse Reactions: Allergies Allergy/AdvReac Type Severity Reaction Status Date / Time No Known Allergies Allergy Verified 05/02/17 14:16 Home Medications: Ambulatory Orders Pregabalin [Lyrica] 100 mg PO TID 10/02/16 Enoxaparin [Lovenox -] 110 mg SQ BID #60 syr 12/17/16 Trazodone HCl [Desyrel -] 150 mg PO HS 03/02/17 Metformin HCl 500 mg PO DAILY 30 Days 03/22/17 Quetiapine Fumarate [Seroquel -] 50 mg PO HS #30 tablet 03/23/17 Buprenorphine/Naloxone [Suboxone 8Mg/2Mg Sl Film -] 1 each SL BID #14 packet MDD 2 05/01/17 Furosemide [Lasix] 40 mg PO DAILY #7 tablet 05/02/17 Lisinopril [Prinivil -] 20 mg PO DAILY 05/02/17 Potassium Chloride [K-Dur -] 40 meq PO ONCE #14 tablet.er 05/02/17 Anemia: No Asthma: No Cancer: No Cardiac Disorders: No CVA: No COPD: No CHF: No DVT: Yes Dementia: No Diabetes: Yes (type 2) Dialysis: No ([facility] 2015.) GI Disorders: Yes (diarrhea) Disorders: Yes (bladder prolapse 2011) HTN: Yes Hypercholesterolemia: No Kidney Stones: Yes Liver Disease: No Psychiatric Problems: Yes (anxiety depression) Seizures: No Thyroid Disease: No - Surgical History Abdominal Surgery: Yes Appendectomy: No Cardiac Surgery: No Cholecystectomy: Yes (2003) Lung Surgery: No Neurologic Surgery: No Orthopedic Surgery: No - Immunization History Td Vaccination: Yes Immunization Up to Date: Yes - Suicide/Smoking/Psychosocial Hx Smoking Status: No Smoking History: Current every day smoker Have you smoked in the past 12 months: Yes Number of Cigarettes Smoked Daily: 10 Cigars Per Day: 0 Information on smoking cessation initiated: No 'Breaking Loose' booklet given: 03/02/17 Hx Alcohol Use: No Drug/Substance Use Hx: No Substance Use Type: Marijuana, Opiates Hx Substance Use Treatment: Yes (2009 [facility]) Review of Systems - Review of Systems Comments:: 05/02/17 17:53 Constitutional: No fevers, chills, fatigue, malaise HEENT: No Rhinorrhea, nasal congestion, Cardiovascular: No chest pain, syncope, palpitations, lightheadedness Respiratory: SOB. No Cough, Hemoptysis, Gastrointestinal: No Abdominal pain, Nausea, Vomiting, Constipation, Diarrhea, Melena Genitourinary: No Dysuria, Frequency, Urgency, Hesitancy, Hematuria, Flank pain Musculoskeletal: No Myalgia, arthralgia Skin: Lower extremity swelling. No rashes, bruising, pallor Neurologic: No Headache, Dizziness, Numbness, Weakness, or Tingling *Physical Exam - Vital Signs Last Vital Signs Temp Pulse Resp BP Pulse Ox 98.5 F 110 H 20 137/92 96 05/02/17 14:12 05/02/17 14:12 05/02/17 14:12 05/02/17 14:12 05/02/17 14:12 - Physical Exam Comments: 05/02/17 17:54 General Appearance: Nourished. No Apparent Distress HEENT: EOMI, KENNA. No Pharyngeal Erythema, Tonsillar Exudate, Tonsillar Erythema Neck: No Cervical Lymphadenopathy Respiratory/Chest: Lungs Clear, Normal Breath Sounds. No Crackles, Rales, Rhonchi, Wheezing Cardiovascular: Regular Rhythm, Regular Rate. No Murmur, Gallops, Rubs Gastrointestinal/Abdominal: Normal Bowel Sounds, Soft. No Guarding, Rebound, Tenderness Musculoskeletal: No CVA Tenderness Extremity: Bilateral 3+ pitting edema tender to palpation without erythema. Normal Capillary Refill Integumentary: Normal Color, Dry, Warm Neurologic: Fully Oriented, Alert, Normal Mood/Affect, Normal Response, ED Treatment Course - LABORATORY CBC & Chemistry Diagram: 05/02/17 16:45 05/02/17 19:00 Medical Decision Making - Medical Decision Making 05/02/17 17:55 The patient is a 47 year old female with a history of DM, polysubstance abuse, CHF, DVT s/p IVC fliter on lovanox who presents for evaluation of lower extremity swelling and SOB. Differential includes but is not limited to: CHF, DVT, infectious, metabolic derangement. Given her history of dvt we will obtain US to evaluate for dvts. We will send a cbc, cmp, troponin, bnp and chest plain film to evaluate for CHF and acs. We will continue to monitor and reassess. 05/02/17 20:25 cbc, cmp, troponin, bnp are unremarkable and chest plain film is unremarkable as preliminarily read by ED physician. DVT US demonstrates bilateral dvts mildly improved from US 1 year ago. The patient reports significant improvement with Lasix and is requesting discharge. We discussed with her the importance of following up with her primary care provider within the week. We are comfortable discharging her home at this time. The patient voiced understanding and is agreeable with the plan. *DC/Admit/Observation/Transfer Diagnosis at time of Disposition: Leg DVT (deep venous thromboembolism), chronic Qualifiers: Laterality: bilateral Qualified Code(s): I82.503 - Chronic embolism and thrombosis of unspecified deep veins of lower extremity, bilateral; I82.503 - Chronic embolism and thrombosis of unspecified deep veins of lower extremity, bilateral; I82.503 - Chronic embolism and thrombosis of unspecified deep veins of lower extremity, bilateral; I82.503 - Chronic embolism and thrombosis of unspecified deep veins of lower extremity, bilateral - Discharge Dispostion Disposition: HOME Condition at time of disposition: Improved Admit: No - Prescriptions Prescriptions: Potassium Chloride [K-Dur -] 40 meq PO ONCE #14 tablet.er Furosemide [Lasix] 40 mg PO DAILY #7 tablet - Referrals Referrals: Ann-Marie Oconnor MD [Primary Care Provider] - - Patient Instructions Printed Discharge Instructions: DI for Peripheral Edema -- Bilateral Additional Instructions: Please return to the ER if you experience concerning or worsening symptoms. Please call to schedule a follow up appointment with your primary care provider to discuss your ER visit and further management of your symptoms.
[2017-05-02] MEDS ORDERED: FUROSEMIDE 40 MG/4 ML INJECTABLE VIAL IVPUSH ONE (16:38)
--- NOTE | 2017-05-02 16:40 | PDOC ---
Attending Attestation - Resident Resident Name: Lobito Judge - ED Attending Attestation I have performed the following: I have examined & evaluated the patient, The case was reviewed & discussed with the resident, I agree w/resident's findings & plan, Exceptions are as noted - HPI HPI: 05/02/17 16:36 47 yo former IVDU presents with SOB and Bilateral 4plus pitting edema to lower extremities - Physicial Exam PE: 05/02/17 16:39 VSS, Clinical Exam C/W CHF - Medical Decision Making 05/02/17 16:[address] Judge' assessment and plan
[2017-05-02] MEDS ORDERED: FUROSEMIDE 40 MG/4 ML INJECTABLE VIAL ONE (16:52)
[2017-05-02] MEDS ORDERED: PREGABALIN 100 MG CAPSULE PO ONE (17:06)
[2017-05-02 17:13] LABS: BASOPHIL 0.9 % (0-2.0); EOSINOPHIL 2.7 % (0-4.5); MCH 28.4 pg (25.7-33.7); MCHC 32.9 g/dl (32.0-36.0); MEAN CELL VOLUME 86.5 fl (80-96); MEAN PLT VOLUME 8.8 fl (7.5-11.1); NEUTROPHILS 62.2 % (42.8-82.8); PLATELET COUNT 298 K/MM3 (134-434); RDW 13.9 % (11.6-15.6); WHITE BLOOD COUNT 7.8 K/mm3 (4.0-10.0)
[2017-05-02] MEDS ORDERED: PREGABALIN 100 MG CAPSULE ONE (18:37)
[2017-05-02 19:40] LABS: ALBUMIN 3.8 g/dl (3.4-5.0); ANION GAP 8 (8-16); BILIRUBIN,TOTAL 0.2 mg/dL (0.2-1.0); CO2 28 mmol/L (21-32); CREATININE 0.8 mg/dL (0.55-1.02); GLUCOSE,RANDOM 162 mg/dL (74-106); SGOT/AST 14 U/L (15-37); SGPT/ALT 30 U/L (12-78); TOT PROT 7.4 g/dl (6.4-8.2)
[2017-05-02 19:43] LABS: ALK PHOS 66 U/L (45-117); CPK 180 IU/L (26-192); TROPONIN I < 0.02 ng/ml (0.00-0.05)
== END 2017-05-02 20:43 | disposition home or self-care (01) ==
LOC: JER 14:10
PROC: 3E033GC Introduction of Other Therapeutic Substance into Peripheral Vein, Percutaneous Approach (ICD-10-PCS; principal; 2017-05-02)
DX: I82.503 Chronic embolism and thrombosis of unspecified deep veins of lower extremity, bilateral (principal); Z79.01 Long term (current) use of anticoagulants; I10 Essential (primary) hypertension; I50.9 Heart failure, unspecified; E11.9 Type 2 diabetes mellitus without complications; Z79.84 Long term (current) use of oral hypoglycemic drugs
CPT/HCPCS: 36415; 71020-TC; 80053; 82550; 82553; 83880; 84443; 84484; 84702; 85025; 93970-TC; 99283-25

== ENCOUNTER 2017-06-18 12:21 | Emergency (ER) | payer OTHER ==
--- NOTE | 2017-06-18 12:30 | PDOC ---
History of Present Illness - General Stated Complaint: KIDNEY PAIN Time Seen by Provider: 06/18/17 12:24 - History of Present Illness Initial Comments: 06/18/17 12:32 47 yo F with h/o NIDDM, HTN, morbid obesity, and polysubstance abuse who presents with right sided flank pain. Reports worsening, unremitting, sharp, right sided flank pain of (06/15/17). 1 day of crampy abdominal pain, now resolved ( 06/15). Pain is worse with movement, ambulation, and pressure. Endorses nausea without vomiting. + increased urinary frequency. Denies dysuria , hematuria, fevers/chills, chest pain, SOB, lightheadedness, weakness, abdominal pain, constipation, BRBPR. Denies alcohol intake but ednroises 1/2 ppd tobacco use for 10 years. H/o Renal stones. Past History - Past Medical History Allergies/Adverse Reactions: Allergies Allergy/AdvReac Type Severity Reaction Status Date / Time No Known Allergies Allergy Verified 05/02/17 14:16 Home Medications: Ambulatory Orders Pregabalin [Lyrica] 100 mg PO TID 10/02/16 Enoxaparin [Lovenox -] 110 mg SQ BID #60 syr 12/17/16 Trazodone HCl [Desyrel -] 150 mg PO HS 03/02/17 Metformin HCl 500 mg PO DAILY 30 Days tab 03/22/17 Quetiapine Fumarate [Seroquel -] 50 mg PO HS #30 tablet 03/23/17 Furosemide [Lasix] 40 mg PO DAILY #7 tablet 05/02/17 Lisinopril [Prinivil -] 20 mg PO DAILY 05/02/17 Potassium Chloride [K-Dur -] 40 meq PO ONCE #14 tablet.er 05/02/17 Buprenorphine/Naloxone [Suboxone 8Mg/2Mg Sl Film -] 1 each SL BID #14 packet MDD 2 06/12/17 Clonazepam [Klonopin] 1 mg PO DAILY 06/18/17 Anemia: No Asthma: No Cancer: No Cardiac Disorders: No CVA: No COPD: No CHF: No DVT: Yes Dementia: No Diabetes: Yes (type 2) Dialysis: No ([facility] 2015.) GI Disorders: Yes (diarrhea) Disorders: Yes (bladder prolapse 2011) HTN: Yes Hypercholesterolemia: No Kidney Stones: Yes Liver Disease: No Psychiatric Problems: Yes (anxiety depression) Seizures: No Thyroid Disease: No - Surgical History Abdominal Surgery: Yes Appendectomy: No Cardiac Surgery: No Cholecystectomy: Yes (2003) Lung Surgery: No Neurologic Surgery: No Orthopedic Surgery: No - Immunization History Td Vaccination: Yes Immunization Up to Date: Yes - Suicide/Smoking/Psychosocial Hx Smoking Status: No Smoking History: Current every day smoker Have you smoked in the past 12 months: Yes Number of Cigarettes Smoked Daily: 10 Cigars Per Day: 0 'Breaking Loose' booklet given: 03/02/17 Hx Alcohol Use: No Drug/Substance Use Hx: No Substance Use Type: Marijuana, Opiates Hx Substance Use Treatment: Yes (2009 [facility]) Review of Systems - Review of Systems Comments:: 06/18/17 12:28 GENERAL/CONSTITUTIONAL: No fever or chills. No weakness. HEAD, EYES, EARS, NOSE AND THROAT: No change in vision. No ear pain or discharge. No sore throat.- CARDIOVASCULAR: No chest pain or shortness of breath RESPIRATORY: No cough, wheezing, or hemoptysis. GASTROINTESTINAL: No nausea, vomiting, diarrhea or constipation. GENITOURINARY: No dysuria, frequency, or change in urination. MUSCULOSKELETAL: No joint or muscle swelling or pain. No neck or back pain. SKIN: No rash NEUROLOGIC: No headache, vertigo, loss of consciousness, or change in strength/ sensation. ENDOCRINE: No increased thirst. No abnormal weight change HEMATOLOGIC/LYMPHATIC: No anemia, easy bleeding, or history of blood clots. ALLERGIC/IMMUNOLOGIC: No hives or skin allergy. *Physical Exam - Physical Exam Comments: 06/18/17 12:28 GENERAL: Awake, alert, and fully oriented, in no acute distress HEAD: No signs of trauma, normocephalic, atraumatic EYES: PERRLA, EOMI, sclera anicteric, conjunctiva clear ENT: Hearing grossly normal, nares patent, oropharynx clear without exudates. Moist mucosa NECK: Normal ROM, no JVD, or masses LUNGS: No distress, speaks full sentences, clear to auscultation bilaterally HEART: Regular rate and rhythm, normal S1 and S2, no murmurs, rubs or gallops, peripheral pulses normal and equal bilaterally. ABDOMEN: Soft, nontender, normoactive bowel sounds. No guarding, no rebound. No masses. + Right sided CVA ttp. Neg [place] point ttp. Neg [place] ttp EXTREMITIES : Normal inspection, Normal range of motion, no edema. No clubbing or cyanosis. SKIN: Warm, Dry, normal turgor, no rashes or lesions noted. ED Treatment Course - LABORATORY CBC & Chemistry Diagram: 06/18/17 13:34 06/18/17 13:34 Medical Decision Making - Medical Decision Making 06/18/17 15:15 47 yo F with h/o NIDDM, HTN, morbid obesity, and polysubstance abuse who presents with worsening, unremitting, sharp, right sided flank pain of (06/15/17 ). R sided flank pain worse with movement, ambulation, and pressure. Endorses nausea without vomiting, increased urinary frequency. Denies dysuria, hematuria , fevers/chills, chest pain, SOB, lightheadedness, weakness, abdominal pain, constipation, BRBPR. Physical exam notable for R sided CVA ttp. Mildly tachycardia 113. Right sided CVA ttp and nausea consistent with nephrolithiasis. Will obtain imaging to r/o renal stones. Also consider UTI vs. MSK etiology of pain. Patient non toxic and non ill appearing. denies fevers/ chills with no systemic s/s of infection. Pyelonephritis less likely. ED Course: 06/18/17 15:16 CBC, CMP, UA HCG CT AP NON CON UA: Neg 06/18/17 15:19 CBC/CMP: Unremarkable 06/18/17 15:54 CT Abdomen Pelvis: Unremarkable. No evidence of stones or infection. No acute findings. Left adrenal lipoma. Patient stable for discharge with return precautions. Advised to follow up with PCP for CT/MRI of adrenal glands. *DC/Admit/Observation/Transfer Diagnosis at time of Disposition: Acute right flank pain - Discharge Dispostion Disposition: HOME Condition at time of disposition: Stable Admit: No - Referrals Referrals: Ann-Marie Oconnor MD [Primary Care Provider] - - Patient Instructions Printed Discharge Instructions: DI for Flank Pain Additional Instructions: Please return to the emergency department with any new or worsening symptoms or concerns. - Post Discharge Activity - Attestations Physician Attestion: 06/18/17 15:53 I attest to the information provided in this note.
[2017-06-18 12:53] VITALS: BP 122/78; PULSE 113; TEMP 98.3; BMI 43.2
[2017-06-18] MEDS ORDERED: SODIUM CHLORIDE 1,000 ML IV STA (13:10)
[2017-06-18] MEDS ORDERED: IBUPROFEN 600 MG TABLET (FP) PO ONE ×2 (13:11→15:57)
[2017-06-18] MEDS ORDERED: ACETAMINOPHEN 500 MG TABLET (FP) PO ONE (13:11)
--- NOTE | 2017-06-18 13:12 | PDOC ---
Attending Attestation - Resident Resident Name: Bert Potter - ED Attending Attestation I have performed the following: I have examined & evaluated the patient, The case was reviewed & discussed with the resident, I agree w/resident's findings & plan, Exceptions are as noted - HPI HPI: 06/18/17 13:11 Right Flank Pain, Diarrhea in the setting of multiple medical problems and morbid obesity - Physicial Exam PE: 06/18/17 13:11 Moves Easily, NAD, VSS - Medical Decision Making 06/18/17 13:[address] Bert Potter's Assessment and Plan
[2017-06-18 13:39] LABS: URINE APPEARANCE CLEAR; URINE BILIRUBIN NEGATIVE (NEGATIVE); URINE BLOOD NEGATIVE (NEGATIVE); URINE COLOR LTYELLOW; URINE GLUCOSE (UA) 1+ (NEGATIVE); URINE KETONE NEGATIVE (NEGATIVE); URINE NITRITE NEGATIVE (NEGATIVE); URINE PROTEIN NEGATIVE (NEGATIVE); URINE UROBILINOGEN NEGATIVE mg/dL (0.2-1.0)
[2017-06-18 13:46] LABS: BASOPHIL 1.4 % (0-2.0); EOSINOPHIL 3.1 % (0-4.5); MCHC 32.3 g/dl (32.0-36.0); MEAN CELL VOLUME 86.8 fl (80-96); MEAN PLT VOLUME 8.4 fl (7.5-11.1); NEUTROPHILS 69.1 % (42.8-82.8); PLATELET COUNT 304 K/MM3 (134-434); RDW 14.6 % (11.6-15.6); WHITE BLOOD COUNT 8.5 K/mm3 (4.0-10.0)
[2017-06-18 14:12] LABS: ALBUMIN 3.9 g/dl (3.4-5.0); ALK PHOS 72 U/L (45-117); ANION GAP 9 (8-16); BILIRUBIN,TOTAL 0.2 mg/dL (0.2-1.0); CALCIUM 9.7 mg/dL (8.5-10.1); CO2 30 mmol/L (21-32); CREATININE 0.9 mg/dL (0.55-1.02); GLUCOSE,RANDOM 253 mg/dL (74-106); SGOT/AST 12 U/L (15-37); SGPT/ALT 31 U/L (12-78); TOT PROT 7.5 g/dl (6.4-8.2)
[2017-06-18] MEDS ORDERED: ACETAMINOPHEN 325 MG TABLET (FP) ONE (14:16)
[2017-06-18 17:11] LABS: URINE LEUK ESTERASE Negative (NEGATIVE)
== END 2017-06-18 16:26 | disposition home or self-care (01) ==
LOC: JER 12:21
DX: R10.31 Right lower quadrant pain (principal); I10 Essential (primary) hypertension; E11.9 Type 2 diabetes mellitus without complications; F19.10 Other psychoactive substance abuse, uncomplicated; E66.01 Morbid (severe) obesity due to excess calories
CPT/HCPCS: 36415; 74176-TC; 80053; 81003; 84703; 85025; 99282-25

== ENCOUNTER 2017-08-01 07:59 | Inpatient (IN) | payer OTHER ==
[2017-08-01] MEDS ORDERED: morphine CARPU-JECT 4 MG/1 ML DISP.SYRIN IVPUSH ONE (08:20)
[2017-08-01] MEDS ORDERED: morphine CARPU-JECT 10 MG/1 ML DISP.SYRIN ONE (08:28)
--- NOTE | 2017-08-01 08:35 | PDOC ---
History of Present Illness <Adolfo Cordova - Last Filed: 08/01/17 08:43> - History of Present Illness Initial Comments: 08/01/17 08:34 "The patient is a 47 year old female with a significant PMH of polysubstance abuse, diabetes, CHF, and DVT s/p IVC filter who presents to the emergency department via EMS with left leg pain s/p slip and fall today. The patient describes her pain as mostly localized in the left ankle which is aggravated by movement. She reports slipping and falling on ice while coming down her driveway , twisting her left ankle. She presents to the ED with a hard splint on her left leg placed by EMS. She denies hitting her head or LOC. Denies RO/N/V. Denies neck pain. Denies numbness/weakness/tingling in any extremity. The patient denies chest pain, shortness of breath, headache and dizziness. Denies fever, chills, nausea, vomit, diarrhea and constipation. Denies dysuria, frequency, urgency and hematuria. Allergies: NKA Past surgical history: IVC filter placement. Abdominal surgery. Cholecystectomy. Social history: Opioid use. Marijuana use. Current everyday smoker. No reported alcohol use. PCP: Dr. Ferreira " <Jorge Easley - Last Filed: 08/01/17 21:54> - General Chief Complaint: Injury Stated Complaint: FALL Time Seen by Provider: 08/01/17 08:11 Past History <Adolfo Cordova - Last Filed: 08/01/17 08:43> - Past Medical History Anemia: No Asthma: No Cancer: No Cardiac Disorders: No CVA: No COPD: No CHF: No DVT: Yes Dementia: No Diabetes: Yes (type 2) Dialysis: No ([facility] 2016.) GI Disorders: Yes (diarrhea) Disorders: Yes (bladder prolapse 2011) HTN: Yes Hypercholesterolemia: No Kidney Stones: Yes Liver Disease: No Psychiatric Problems: Yes (anxiety depression) Seizures: No Thyroid Disease: No - Surgical History Abdominal Surgery: Yes Appendectomy: No Cardiac Surgery: No Cholecystectomy: Yes (2003) Lung Surgery: No Neurologic Surgery: No Orthopedic Surgery: No - Immunization History Td Vaccination: Yes Immunization Up to Date: Yes - Suicide/Smoking/Psychosocial Hx Smoking Status: No Smoking History: Current every day smoker Have you smoked in the past 12 months: Yes Number of Cigarettes Smoked Daily: 10 Cigars Per Day: 0 Information on smoking cessation initiated: No 'Breaking Loose' booklet given: 03/02/17 Hx Alcohol Use: No Drug/Substance Use Hx: No Substance Use Type: Marijuana, Opiates Hx Substance Use Treatment: Yes (2009) <Jorge Easley - Last Filed: 08/01/17 21:54> - Past Medical History Allergies/Adverse Reactions: Allergies Allergy/AdvReac Type Severity Reaction Status Date / Time No Known Allergies Allergy Verified 08/01/17 08:02 Home Medications: Ambulatory Orders Pregabalin [Lyrica] 100 mg PO TID 10/02/16 Enoxaparin [Lovenox -] 110 mg SQ BID #60 syr 12/17/16 Trazodone HCl [Desyrel -] 150 mg PO HS 03/02/17 Metformin HCl 500 mg PO DAILY 30 Days tab 03/22/17 Quetiapine Fumarate [Seroquel -] 50 mg PO HS #30 tablet 03/23/17 Lisinopril [Prinivil -] 20 mg PO DAILY 05/02/17 Potassium Chloride [K-Dur -] 40 meq PO ONCE #14 tablet.er 05/02/17 Furosemide [Lasix] 80 mg PO DAILY 07/03/17 Buprenorphine/Naloxone [Suboxone 8Mg/2Mg Sl Film -] 1 each SL BID #28 packet MDD 2 07/24/17 Docusate Sodium [Colace -] 100 mg PO TID PRN #90 capsule 07/24/17 Doxycycline Hyclate 100 mg PO BID #28 tablet 07/27/17 Trauma Specific PMHX - Complaint Specific PMHX Arthritis: Yes <Jorge Easley - Last Filed: 08/01/17 21:54> Review of Systems - Review of Systems Comments:: 08/01/17 08:35 "GENERAL/CONSTITUTIONAL: No fever or chills. No weakness. HEAD, EYES, EARS, NOSE AND THROAT: No change in vision. No ear pain or discharge. No sore throat. CARDIOVASCULAR: No chest pain or shortness of breath. RESPIRATORY: No cough, wheezing, or hemoptysis. GASTROINTESTINAL: No nausea, vomiting, diarrhea or constipation. GENITOURINARY: No dysuria, frequency, or change in urination. MUSCULOSKELETAL: (+) Left ankle pain. No neck or back pain. SKIN: No rash NEUROLOGIC: No headache, vertigo, loss of consciousness, or change in strength/ sensation. ENDOCRINE: No increased thirst. No abnormal weight change. HEMATOLOGIC/LYMPHATIC: No anemia, easy bleeding, or history of blood clots. ALLERGIC/IMMUNOLOGIC: No hives or skin allergy. " <aKushalJorge - Last Filed: 08/01/17 21:54> *Physical Exam - Vital Signs Last Vital Signs Temp Pulse Resp BP Pulse Ox 98.9 F 116 H 22 179/126 95 08/01/17 08:00 08/01/17 08:00 08/01/17 08:00 08/01/17 08:00 08/01/17 08:00 <Adolfo Cordova - Last Filed: 08/01/17 08:43> - Vital Signs Last Vital Signs Temp Pulse Resp BP Pulse Ox 98.9 F 116 H 22 179/126 95 08/01/17 08:00 08/01/17 08:00 08/01/17 08:00 08/01/17 08:00 08/01/17 08:00 - Physical Exam Comments: 08/01/17 08:35 "GENERAL: Awake, alert, and fully oriented, in no acute distress HEAD: No signs of trauma EYES: PERRLA, EOMI, sclera anicteric, conjunctiva clear ENT: Auricles normal inspection, hearing grossly normal, nares patent, oropharynx clear without exudates. Moist mucosa NECK: Nontender, no stepoffs, Normal ROM, supple, no lymphadenopathy, JVD, or masses LUNGS: Breath sounds equal, clear to auscultation bilaterally. No wheezes, and no crackles HEART: Regular rate and rhythm, normal S1 and S2, no murmurs, rubs or gallops ABDOMEN: Soft, nontender, normoactive bowel sounds. No guarding, no rebound. No masses BACK: Nontender, no step-offs EXTREMITIES: + L ankle edema and deformity, tender to palpation, distal pulses and sensation intact, L knee wnl, RLE with no deformity or bony tenderness NEUROLOGICAL: Cranial nerves II through XII intact. 5/5 strength and sensation in all extremities, Normal speech. SKIN: Warm, Dry, normal turgor, no rashes or lesions noted. " <KaushalJorge - Last Filed: 08/01/17 21:54> Procedures - Splinting Splint Location: Left: Ankle Pre-Proc Neuro Vasc Exam: normal Hand-Made Type: orthoglass Splint Type: Yes: Sugar Tong, Posterior Post-Proc Neuro Vasc Exam: normal Irley Bandage: yes, 6" Complications: No Post splint xray: Yes - Joint Reduction Left Joint Reduction Site: left: Posterior Dislocation (ANKLE) Pre-Procedure NV Exam: normal Conscious Sedation: Yes Complications: No Splint: Yes Immobilized: Yes <Jorge Easley - Last Filed: 08/01/17 21:54> ED Treatment Course - LABORATORY CBC & Chemistry Diagram: 08/01/17 12:25 08/01/17 12:25 - RADIOLOGY Radiology Studies Ordered: Category Date Time Status ANKLE & FOOT-LEFT* [RAD] Stat Radiology 08/01/17 08:21 Ordered LEG TIB/FIB-LEFT [RAD] Stat Radiology 08/01/17 08:21 Ordered PELVIS [RAD] Stat Radiology 08/01/17 08:27 Ordered SPINE-LUMBAR SACRAL [RAD] Stat Radiology 08/01/17 08:27 Ordered <Jorge Easley - Last Filed: 08/01/17 21:54> Medical Decision Making - Medical Decision Making 08/01/17 08:29 47 F with L ankle deformity after slipping on ice. No evidence of head or c- spine injury. - XR L ankle - Pain control 08/01/17 12:00 XR shows fracture/dislocation of L ankle. Spoke with Dr. Sterling, orthopedic construction site crossing guard, who recommends reduction with splinting. Pt consented for procedural sedation. Given ketamine 150mg IV and versed 2mg IV. Ankle reduced and posterior leg splint with stirrup placed. Neurovascular exam post-reduction normal. Pt sent for post-reduction X ray. 08/01/17 13:54 Films reviewed by ortho - satisfactory reduction. Will admit for pain control <Jorge Easley - Last Filed: 08/01/17 21:54> *DC/Admit/Observation/Transfer - Attestations Scribe Attestion: 08/01/17 08:44 Documentation prepared by Adolfo Cordova, acting as medical review coordinator for Jorge Easley MD. <Adolfo Cordova - Last Filed: 08/01/17 08:43> - Discharge Dispostion Admit: Yes - Attestations Physician Attestion: 08/01/17 15:46 I, Dr. Jorge Easley MD, attest that this document has been prepared under my direction and personally reviewed by me in its entirety. I further attest, that it accurately reflects all work, treatment, procedures and medical decision -making performed by me. <Jorge Easley - Last Filed: 08/01/17 21:54> Diagnosis at time of Disposition: Fracture dislocation of ankle
[2017-08-01] MEDS ORDERED: HYDROmorphone HCL CARPU-JECT 1 MG/1 ML DISP.SYRIN IVPUSH ONE ×4 (09:40→19:33)
[2017-08-01] MEDS ORDERED: HYDROmorphone HCL CARPU-JECT 1 MG/1 ML DISP.SYRIN ONE ×2 (09:45→11:02)
[2017-08-01] MEDS ORDERED: KETAMINE HCL 200 MG/20 ML VIAL IVPUSH ONE (10:36)
[2017-08-01] MEDS ORDERED: MIDAZOLAM HCL 2 MG/2 ML SINGLE DOSE VIAL IVPUSH ONE (10:36)
[2017-08-01] MEDS ORDERED: KETAMINE HCL 200 MG/20 ML VIAL ONE (11:38)
[2017-08-01] MEDS ORDERED: MIDAZOLAM HCL 2 MG/2 ML SINGLE DOSE VIAL ONE (11:38)
[2017-08-01] MEDS ORDERED: SODIUM CHLORIDE 1,000 ML IV STA (12:03)
[2017-08-01 12:34] LABS: EOS % 1.1 % (0-4.5); HEMATOCRIT 41.7 % (32.4-45.2); HEMOGLOBIN 13.4 GM/dL (10.7-15.3); MCH 27.7 pg (25.7-33.7); MCHC 32.1 g/dl (32.0-36.0); MEAN CELL VOLUME 86.5 fl (80-96); MEAN PLT VOLUME 8.3 fl (7.5-11.1); MONO % 6.9 % (3.8-10.2); PLATELET COUNT 252 K/MM3 (134-434); RBC 4.82 M/mm3 (3.60-5.2); RDW 14.8 % (11.6-15.6); WHITE BLOOD COUNT 10.7 K/mm3 (4.0-10.0)
[2017-08-01 12:59] LABS: ALBUMIN 3.5 g/dl (3.4-5.0); ALK PHOS 66 U/L (45-117); ANION GAP 9 (8-16); BILIRUBIN,TOTAL 0.2 mg/dL (0.2-1.0); BLOOD UREA NITROGEN 24 mg/dL (7-18); CALCIUM 8.7 mg/dL (8.5-10.1); CHLORIDE 106 mmol/L (98-107); CO2 26 mmol/L (21-32); GLUCOSE,RANDOM 189 mg/dL (74-106); POTASSIUM 4.8 mmol/L (3.5-5.1); SGOT/AST 16 U/L (15-37); SGPT/ALT 32 U/L (12-78); SODIUM 141 mmol/L (136-145)
[2017-08-01] MEDS ORDERED: HYDROmorphone HCL CARPU-JECT 2 MG/1 ML DISP.SYRIN ONE ×3 (14:10→20:27)
--- NOTE | 2017-08-01 15:02 | CONSULT ---
Consult - History of Present Illness Chief Complaint: Left ankle History of Present Illness: 47y/o female c/o left ankle pain since this morning. She slipped in her driveway and fell and immediately had pain and a deformity of the left ankle. She was transported to the ER and underwent a closed reduction of the left ankle by the ER staff. She c/o pain which is worse with movement of the left ankle and better with rest. Denies any numbness or tingling. 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 HGBA1c PENDING.) - Past Surgical History Past Surgical History: Yes: Cholecystectomy, Colonoscopy - Alcohol/Substance Use Hx Alcohol Use: No - Smoking History Smoking history: Current every day smoker Have you smoked in the past 12 months: Yes Aproximately how many cigarettes per day: 10 - Social History Usual Living Arrangement: With Parent ADL: Independent History of Recent Travel: No Home Medications - Allergies Allergies/Adverse Reactions: Allergies Allergy/AdvReac Type Severity Reaction Status Date / Time No Known Allergies Allergy Verified 08/01/17 08:02 - Home Medications Home Medications: Ambulatory Orders Pregabalin [Lyrica] 100 mg PO TID 10/02/16 Enoxaparin [Lovenox -] 110 mg SQ BID #60 syr 12/17/16 Trazodone HCl [Desyrel -] 150 mg PO HS 03/02/17 Metformin HCl 500 mg PO DAILY 30 Days tab 03/22/17 Quetiapine Fumarate [Seroquel -] 50 mg PO HS #30 tablet 03/23/17 Lisinopril [Prinivil -] 20 mg PO DAILY 05/02/17 Potassium Chloride [K-Dur -] 40 meq PO ONCE #14 tablet.er 05/02/17 Furosemide [Lasix] 80 mg PO DAILY 07/03/17 Buprenorphine/Naloxone [Suboxone 8Mg/2Mg Sl Film -] 1 each SL BID #28 packet MDD 2 07/24/17 Docusate Sodium [Colace -] 100 mg PO TID PRN #90 capsule 07/24/17 Doxycycline Hyclate 100 mg PO BID #28 tablet 07/27/17 Family Disease History - Family Disease History Family Disease History: Diabetes: Father (DM, etoh), Mother, Brother, Heart Disease: Grandparent (massive CVA in his early 60s) Review of Systems - Review of Systems Constitutional: reports: No Symptoms Eyes: reports: No Symptoms HENT: reports: No Symptoms Neck: reports: No Symptoms Cardiovascular: reports: No Symptoms Respiratory: reports: No Symptoms Gastrointestinal: reports: No Symptoms Genitourinary: reports: No Symptoms Breasts: reports: No Symptoms Reported Musculoskeletal: reports: Extremity Pain Integumentary: reports: No Symptoms Neurological: reports: No Symptoms Endocrine: reports: No Symptoms Hematology/Lymphatic: reports: No Symptoms Psychiatric: reports: No Symptoms Physical Exam Vital Signs: Vital Signs Temperature 98.9 F 08/01/17 08:00 Pulse Rate 121 H 08/01/17 12:30 Respiratory Rate 20 08/01/17 12:30 Blood Pressure 102/71 08/01/17 12:30 O2 Sat by Pulse Oximetry (%) 93 L 08/01/17 12:30 Constitutional: Yes: Well Nourished, No Distress, Obese HENT: Yes: Atraumatic, Normocephalic Musculoskeletal: Yes: Other (Left ankle: Sugartong and posteral splint in place. Toes exposed and there appears to be a small healed diabetic ulcer on the left large toe. Well perfused. sensation intact.) Labs: CBC, BMP 08/01/17 12:25 08/01/17 12:25 Imaging - Results X-ray: Report Reviewed, Image Reviewed (Posterior and lateral malleolar fracture /dislocation post reduction x-rays show fracture reduced and in acceptable alignment) Assessment/Plan #1 Posterior and Lateral malleolus fracture/dislocation s/p reduction -Discussed today's findings and treatment options with the patient. She will need to undergo ORIF in the future. She will follow up with Dr. Champion as an outpatient within the next few days -Splint in place, elevation discussed -Pain control -May be discharged from orthopedic standpoint
[2017-08-01] MEDS ORDERED: HYDROmorphone HCL CARPU-JECT 2 MG/1 ML DISP.SYRIN IVPUSH PRN (16:34)
[2017-08-01] MEDS ORDERED: ACETAMINOPHEN 325 MG TABLET (FP) PO PRN (16:34)
[2017-08-01] MEDS ORDERED: DOCUSATE SODIUM 100 MG CAPSULE (FP) PO PRN (16:40)
--- NOTE | 2017-08-01 16:43 | HP ---
CHIEF COMPLAINT: Left leg pain PCP: Dr. Ferreira HISTORY OF PRESENT ILLN 47 year-old female with a PMH significant for HTN, HLD, CHF, DVT s/p IVC filter , NIDDM, chronic leg ulcers, left big toe wound, and polysubstance abuse. Patient presented to the ED today via EMS after slipping on her icy driveway and twisting her left ankle. EMS placed a hard splint in the field. Patient denied hitting her head or LOC. No evidence of head or c-spine injury. Xray showed fracture dislocation of the left ankle. tion of L ankle. Patient given procedural sedation and the left ankle was reduced and resplinted. Patient, who is opiod tolerant on suboxone, required large amounts of IV pain medication in the ED. Recent Travel: No PAST MEDICAL HISTORY: Hypertension Hyperlipidemia CHF DVT NIDDM Chronic leg ulcers Left big toe wound Polysubstance abuse PAST SURGICAL HISTORY: Cholecystectomy Social History: Smoking: current, every day Alcohol: no Drugs: opioids, marijuana Family History: Allergies No Known Allergies Allergy (Verified 08/01/17 08:02) HOME MEDICATIONS: Home Medications Medication Instructions Recorded Pregabalin [Lyrica] 100 mg PO TID 10/02/16 Enoxaparin [Lovenox -] 110 mg SQ BID #60 syr 12/17/16 Trazodone HCl [Desyrel -] 150 mg PO HS 03/02/17 Metformin HCl 500 mg PO DAILY 30 Days tab 03/22/17 Quetiapine Fumarate [Seroquel -] 50 mg PO HS #30 tablet 03/23/17 Lisinopril [Prinivil -] 20 mg PO DAILY 05/02/17 Potassium Chloride [K-Dur -] 40 meq PO ONCE #14 tablet.er 05/02/17 Furosemide [Lasix] 80 mg PO DAILY 07/03/17 Buprenorphine/Naloxone [Suboxone 1 each SL BID #28 packet MDD 2 07/24/17 8Mg/2Mg Sl Film -] Docusate Sodium [Colace -] 100 mg PO TID PRN #90 capsule 07/24/17 Doxycycline Hyclate 100 mg PO BID #28 tablet 07/27/17 REVIEW OF SYSTEMS CONSTITUTIONAL: Absent: fever, chills, diaphoresis, generalized weakness, malaise, loss of appetite, weight change HEENT: Absent: rhinorrhea, nasal congestion, throat pain, throat swelling, difficulty swallowing, mouth swelling, ear pain, eye pain, visual changes CARDIOVASCULAR: Absent: chest pain, syncope, palpitations, irregular heart rate, lightheadedness , peripheral edema RESPIRATORY: Absent: cough, shortness of breath, dyspnea with exertion, orthopnea, wheezing, stridor, hemoptysis GASTROINTESTINAL: Absent: abdominal pain, abdominal distension, nausea, vomiting, diarrhea, constipation, melena, hematochezia GENITOURINARY: Absent: dysuria, frequency, urgency, hesitancy, hematuria, flank pain, genital pain MUSCULOSKELETAL: +Left ankle pain Absent: myalgia, arthralgia, joint swelling, back pain, neck pain SKIN: Absent: rash, itching, pallor HEMATOLOGIC/IMMUNOLOGIC: Absent: easy bleeding, easy bruising, lymphadenopathy, frequent infections ENDOCRINE: Absent: unexplained weight gain, unexplained weight loss, heat intolerance, cold intolerance NEUROLOGIC: Absent: headache, focal weakness or paresthesias, dizziness, unsteady gait, seizure, mental status changes, bladder or bowel incontinence PSYCHIATRIC: Absent: anxiety, depression, suicidal or homicidal ideation, hallucinations. PHYSICAL EXAMINATION Vital Signs - 24 hr 08/01/17 08/01/17 08/01/17 08:00 10:40 11:35 Temperature 98.9 F Pulse Rate 116 H Pulse Rate [ Apical] Pulse Rate [ 122 H 128 H Left Upper Arm] Respiratory 22 Rate Respiratory 22 22 Rate [Left Upper Arm] Blood Pressure 179/126 Blood Pressure [Left Arm] Blood Pressure 144/84 120/80 [Left Upper Arm ] O2 Sat by Pulse 95 Oximetry (%) O2 Sat by Pulse 94 L 95 Oximetry (%) [ Left Upper Arm] 08/01/17 08/01/17 08/01/17 11:40 11:50 11:55 Temperature Pulse Rate Pulse Rate [ 133 H 137 H Apical] Pulse Rate [ 130 H Left Upper Arm] Respiratory 16 16 Rate Respiratory 20 Rate [Left Upper Arm] Blood Pressure Blood Pressure 143/100 138/92 [Left Arm] Blood Pressure 129/78 [Left Upper Arm ] O2 Sat by Pulse 95 97 Oximetry (%) O2 Sat by Pulse 95 Oximetry (%) [ Left Upper Arm] 08/01/17 12:30 Temperature Pulse Rate Pulse Rate [ 121 H Apical] Pulse Rate [ Left Upper Arm] Respiratory 20 Rate Respiratory Rate [Left Upper Arm] Blood Pressure Blood Pressure 102/71 [Left Arm] Blood Pressure [Left Upper Arm ] O2 Sat by Pulse 93 L Oximetry (%) O2 Sat by Pulse Oximetry (%) [ Left Upper Arm] GENERAL: Awake, alert, and fully oriented, in mild distress secondary to pain. EYES: Pupils equal, round and reactive to light, extraocular movements intact, sclera anicteric, conjunctiva clear. No lid lag. EARS, NOSE, THROAT: Ears normal, nares patent, oropharynx clear without exudates. Moist mucous membranes. Poor dentition, missing teeth. NECK: Normal range of motion, supple without lymphadenopathy, JVD, or masses. LUNGS: Breath sounds equal, clear to auscultation bilaterally. No wheezes, and no crackles. No accessory muscle use. HEART: Regular rate and rhythm, normal S1 and S2 without murmur, rub or gallop. ABDOMEN: Soft, nontender, not distended, normoactive bowel sounds, no guarding, no rebound, no masses. UPPER EXTREMITIES: 2+ pulses, warm, well-perfused. No cyanosis. No clubbing. No peripheral edema. LOWER EXTREMITIES: Left leg in soft case from toes to knee NEUROLOGICAL: Cranial nerves II-XII intact. Normal speech. Laboratory Results - last 24 hr 08/01/17 08/01/17 12:25 12:25 WBC 10.7 H RBC 4.82 Hgb 13.4 Hct 41.7 MCV 86.5 MCH 27.7 MCHC 32.1 RDW 14.8 Plt Count 252 MPV 8.3 Neutrophils % 75.0 Lymphocytes % 16.0 Monocytes % 6.9 Eosinophils % 1.1 Basophils % 1.0 Sodium 141 Potassium 4.8 Chloride 106 Carbon Dioxide 26 Anion Gap 9 BUN 24 H Creatinine 1.0 Creat Clearance w eGFR 59.96 Random Glucose 189 H Calcium 8.7 Total Bilirubin 0.2 AST 16 D ALT 32 Alkaline Phosphatase 66 Total Protein 7.0 Albumin 3.5 ASSESSMENT/PLAN: 47 year-old female with a PMH significant for HTN, HLD, CHF, DVT s/p IVC filter , chronic leg ulcers, left big toe wound, and polysubstance abuse. Admitted for left ankle fracture. Patient is opioid tolerant, on suboxone, and requires IV pain management. Left ankle fracture --will require surgery --followup with ortho Severe pain syndrome --patient requiring large amounts of IV pain meds --complicated by morbid obesity, at risk for respiratory depression --try to mobilize as quickly as possible, needs PT evaluation for needs for safe dischage --placed consult for Dr. Tee for input on pain management h/o DVT --has IVC filter --on full dose lovenox at home --discrepancy between stated weight and lovenox dosing; need to get accurate weight and adjust dosing if indicated Hypertension --continue lisinopril Hyperlipidemia --not on medication CHF --continue home dose lasix NIDDM --Novolog sliding scale coverage Chronic leg ulcers Left big toe wound --followed by Dr. Knox, request consult how to manage with cast --continue Lyrica --on doxycycline 14 day-course Polysubstance abuse Anxiety/Depression --continue trazodone, seroquel DVT prophylaxis: on full dose lovenox Visit type - Emergency Visit Emergency Visit: Yes ED Registration Date: 08/01/17 Care time: The patient presented to the Emergency Department on the above date and was hospitalized for further evaluation of their emergent condition. - New Patient This patient is new to me today: Yes Date on this admission: 08/21/17 - Critical Care Critical Care patient: No
[2017-08-01] MEDS ORDERED: POTASSIUM CHLORIDE TABS 20 MEQ TABLET.ER (FP) PO ONE ×2 (17:00→17:38)
[2017-08-01] MEDS ORDERED: ACETAMINOPHEN 325 MG TABLET (FP) ONE (17:37)
[2017-08-01] MEDS ORDERED: QUEtiapine FUMARATE 25 MG TABLET (FP) ONE (21:53)
[2017-08-01] MEDS: traZODone HCL 50 MG TABLET (FP) PO SCH (21:55)
[2017-08-01] MEDS: QUEtiapine FUMARATE 50 MG TABLET PO SCH (21:55)
[2017-08-01] MEDS ORDERED: ENOXAPARIN NA (PORCINE) 120 MG/0.8 ML DISP.SYRIN SQ SCH (22:00)
[2017-08-01] MEDS ORDERED: BUPRENORPHINE/NALOXONE 8 MG/2 MG FILM PACKET SL SCH (22:00)
[2017-08-01] MEDS ORDERED: PREGABALIN 100 MG CAPSULE PO SCH (22:00)
[2017-08-01] MEDS ORDERED: INSULIN (NOVOLOG) ASPART 100 UNITS/ML 10ML VIAL SQ SCH (22:00)
[2017-08-01] MEDS: PREGABALIN 50 MG CAPSULE PO SCH (22:03)
[2017-08-01] MEDS: INSULIN SLIDING SCALE (NOVOLOG) 1 VIAL SQ SCH (22:07)
[2017-08-01] MEDS ORDERED: ACETAMINOPHEN 1000 MG/100 ML VIAL (NON FORMULARY) IVPB PRN (22:25)
[2017-08-01] MEDS ORDERED: IBUPROFEN 800 MG/8 ML IJ IVPB PRN (22:26)
[2017-08-01] MEDS ORDERED: morphine CARPU-JECT 10 MG/1 ML DISP.SYRIN IVPUSH PRN (22:27)
[2017-08-01] MEDS: ENOXAPARIN 80 MG, ENOXAPARIN 30 MG SQ SCH (22:44)
[2017-08-01 22:56] VITALS: BMI 54.3
[2017-08-02] MEDS: PREGABALIN 50 MG CAPSULE PO SCH ×3 (06:25→21:43)
[2017-08-02] MEDS: INSULIN SLIDING SCALE (NOVOLOG) 1 VIAL SQ SCH ×4 (06:34→21:42)
[2017-08-02 08:48] LABS: BASO % 0.6 % (0-2.0); EOS % 2.4 % (0-4.5); HEMATOCRIT 39.3 % (32.4-45.2); HEMOGLOBIN 12.2 GM/dL (10.7-15.3); LYMPH % 18.2 % (8-40); MCH 27.4 pg (25.7-33.7); MCHC 31.1 g/dl (32.0-36.0); MEAN CELL VOLUME 88.2 fl (80-96); MEAN PLT VOLUME 8.2 fl (7.5-11.1); MONO % 10.4 % (3.8-10.2); NEUT % 68.4 % (42.8-82.8); PLATELET COUNT 247 K/MM3 (134-434); RBC 4.46 M/mm3 (3.60-5.2); RDW 15.3 % (11.6-15.6); WHITE BLOOD COUNT 10.4 K/mm3 (4.0-10.0)
[2017-08-02] MEDS ORDERED: oxyCODONE HCL 5 MG TABLET PO PRN (08:52)
[2017-08-02 09:06] LABS: INR 1.06 (0.82-1.09)
[2017-08-02 09:08] LABS: ACTIVATED PTT 27.8 SECONDS (26.9-34.4)
[2017-08-02 09:21] LABS: ALBUMIN 3.2 g/dl (3.4-5.0); ANION GAP 8 (8-16); BLOOD UREA NITROGEN 36 mg/dL (7-18); CALCIUM 8.6 mg/dL (8.5-10.1); CHLORIDE 107 mmol/L (98-107); CO2 26 mmol/L (21-32); GLUCOSE,RANDOM 160 mg/dL (74-106); PHOSPHOROUS 5.8 mg/dL (2.5-4.9); POTASSIUM 5.2 mmol/L (3.5-5.1); SGOT/AST 16 U/L (15-37); SGPT/ALT 28 U/L (12-78); SODIUM 141 mmol/L (136-145)
[2017-08-02 09:23] LABS: ALK PHOS 66 U/L (45-117); BILIRUBIN,TOTAL 0.6 mg/dL (0.2-1.0); CREATININE 1.2 mg/dL (0.55-1.02); TOT PROT 6.6 g/dl (6.4-8.2)
[2017-08-02] MEDS: FUROSEMIDE 40 MG TABLET (FP) PO SCH (09:38)
[2017-08-02] MEDS: ENOXAPARIN 80 MG, ENOXAPARIN 30 MG SQ SCH (09:39)
[2017-08-02] MEDS: LISINOPRIL 20 MG TABLET (FP) PO SCH (09:39)
[2017-08-02] MEDS ORDERED: INSULIN (NOVOLOG) ASPART 100 UNITS/ML 10ML VIAL ONE ×2 (11:54→17:14)
--- NOTE | 2017-08-02 13:42 | PN ---
Progress Note (short form) - Note Progress Note: Subjective: The patient was seen and examined at the bedside, she reports feeling better now. She was unable to ambulate with PT this AM Current Medications Generic Name Dose Route Start Last Admin Trade Name Freq PRN Reason Stop Dose Admin Acetaminophen 650 mg 08/02/17 08:52 Tylenol - PO Q6H PRN PAIN LEVEL 1-5 Docusate Sodium 100 mg 08/01/17 16:40 Colace - PO TID PRN CONSTIPATION Enoxaparin Sodium 80 mg/ 110 mg 08/01/17 22:00 08/02/17 09:39 Enoxaparin Sodium 30 mg SQ 110 mg BID NI Administration Furosemide 80 mg 08/02/17 10:00 08/02/17 09:38 Lasix - PO 80 mg DAILY NI Administration Ibuprofen 800 mg 08/01/17 22:26 Caldolor Injection - IVPB Q8H PRN FEVER Insulin Aspart 1 vial 08/01/17 22:00 08/02/17 06:34 Novolog Vial Sliding Scale - SQ 2 units ACHS NI Administration Protocol Lisinopril 20 mg 08/02/17 10:00 08/02/17 09:39 Prinivil PO 20 mg DAILY NI Administration Oxycodone HCl 5 mg 08/02/17 08:52 08/02/17 09:37 Roxicodone - PO 5 mg Q4H PRN Administration PAIN LEVEL 6-10 Pregabalin 100 mg 08/01/17 22:00 08/02/17 06:25 Lyrica - PO 100 mg TID NI Administration Quetiapine Fumarate 50 mg 08/01/17 22:00 08/01/17 21:55 Seroquel - PO 50 mg HS NI Administration Trazodone HCl 150 mg 08/01/17 22:00 08/01/17 21:55 Desyrel - PO 150 mg HS NI Administration Objective: Vital Signs Period Temp Pulse Resp BP Sys/Puente Pulse Ox Last 24 Hr 98.1 F-99.0 F 107-122 18-22 104-139/65-77 93-94 Physical Exam: General: NAD, A&Ox3, morbidly obese Lungs: CTA bilaterally Heart: RRR, S1S2 Abd: Soft, non-tender, non-distended. Normoactive bowel sounds Ext: Left Neuro: CBCD WBC 10.4 K/mm3 (4.0-10.0) H 08/02/17 08:00 RBC 4.46 M/mm3 (3.60-5.2) 08/02/17 08:00 Hgb 12.2 GM/dL (10.7-15.3) 08/02/17 08:00 Hct 39.3 % (32.4-45.2) 08/02/17 08:00 MCV 88.2 fl (80-96) 08/02/17 08:00 MCHC 31.1 g/dl (32.0-36.0) L 08/02/17 08:00 RDW 15.3 % (11.6-15.6) 08/02/17 08:00 Plt Count 247 K/MM3 (134-434) 08/02/17 08:00 MPV 8.2 fl (7.5-11.1) 08/02/17 08:00 CMP Sodium 141 mmol/L (136-145) 08/02/17 08:00 Potassium 5.2 mmol/L (3.5-5.1) H 08/02/17 08:00 Chloride 107 mmol/L (98-107) 08/02/17 08:00 Carbon Dioxide 26 mmol/L (21-32) 08/02/17 08:00 Anion Gap 8 (8-16) 08/02/17 08:00 BUN 36 mg/dL (7-18) H 08/02/17 08:00 Creatinine 1.2 mg/dL (0.55-1.02) H 08/02/17 08:00 Creat Clearance w eGFR 48.58 (>60) 08/02/17 08:00 Random Glucose 160 mg/dL (74-106) H 08/02/17 08:00 Calcium 8.6 mg/dL (8.5-10.1) 08/02/17 08:00 Total Bilirubin 0.6 mg/dL (0.2-1.0) D 08/02/17 08:00 AST 16 U/L (15-37) 08/02/17 08:00 ALT 28 U/L (12-78) 08/02/17 08:00 Alkaline Phosphatase 66 U/L (45-117) 08/02/17 08:00 Total Protein 6.6 g/dl (6.4-8.2) 08/02/17 08:00 Albumin 3.2 g/dl (3.4-5.0) L 08/02/17 08:00 Assessment: This is a 47 year old female with PMHx of HTN, hyperlipidemia, CHF , DVT s/p IVC filter, NIDDM, chronic leg ulcers, left big toe wound, polysubstance abuse, who presented to the ED after slipping on the [place] driveway and twisting her left ankle. Plan: 1) Left posterior and lateral malleolus fracture/dislocation - S/p reduction in the ED - Splint in place - Was unable to ambulate with PT 2/2 pain - Pain control with Naprosyn per detox - Out patient follow-up with ortho for surgery 2) Polysubstance abuse - Restarted on Suboxone - Valium prn - Trazodone 150mg po hs 3) Hx of DVT - S/p IVC filter - On Lovenox 110mg sq bid at home. Will increase to 150mg sq bid per patient's weight 4) Chronic leg ulcers - Left great toe wound - Continue Doxycycline (07/27- ). Total 14 days - F/u Dr. Knox consult for recommendations on how to treat with splint 5) NIDDM - BGM ACHS - ISS ACHS 6) CHF - No evidence of exacerbation - Continue Lasix 7) F/E/N: - Diabetic/sodium controlled diet - Monitor electrolytes 8) Prophylaxis: - PT - On Lovenox 9) Dispo: - Requires continued inpatient care CODE STATUS: FULL CODE Visit type - Emergency Visit Emergency Visit: Yes ED Registration Date: 08/01/17 Care time: The patient presented to the Emergency Department on the above date and was hospitalized for further evaluation of their emergent condition. - New Patient This patient is new to me today: Yes Date on this admission: 08/02/17 - Critical Care Critical Care patient: No
--- NOTE | 2017-08-02 14:29 | CONSULT ---
"Consult Detox [facility] Reason for Current Admission/Consult: opioid use disorder, pain management on suboxone Referred by:: Chika Monroy MD - History History of Present Illness: 47 yo f w h/o polysubstance use disorder on medication assisted treatment with suboxone 8mg bid, followed up at [facility], recently discharged from inpatient rehab where she was started on suboxone maintenance and denies all illicit drug use or cravings, fell with dislocated ankle fx now s/p surgery reproting pain r ankle and withdrawal sx, had one dose suboxone last night. also c/o insomnia, constipation. SOFTWARE INTERN: ref #Diogo Tee | Reference #: [id number] 05/16/2017 07/27/2017 lyrica 100 mg capsule 90 30 ArslanBelleAnn-Marie Bates Iovry 201707/24/2017 suboxone 8 mg-2 mg sl film 28 14 Rosa Garcia NP, PHD 201607/10/2017 suboxone 8 mg-2 mg sl film 28 14 Rosa Garcia NP, PHD - History Source History Provided By: Patient, Medical Record, Caregiver Limitations to Obtaining History: No Limitations - Alcohol/Substance Use Hx Alcohol Use: No Hx Substance Use: Yes (opioids) Hx Substance Use Treatment: Yes (suboxone maintenance 16mg daily /[facility]) - Past Medical History 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 HGBA1c PENDING.) - Past Surgical History Past Surgical History: Yes: Cholecystectomy, Colonoscopy - Significant Medical Findings: 47 yo morbidly obese, HTN, DM, w f w/p surgery for reduction dislocated fx let ankle s/p fall now c/o poain left ankle, opioid withdrawa sx as she has not been taking suboxone adn constipation. labs show elevated buun and creatinine. COWS - Scale Resting Pulse: 2= MS 101-120 Sweatin=Flushed/Facial Moisture Restless Observation: 1= Difficult to Sit Still Pupil Size: 1= Pupils >than Normal Bone or Joint Aches: 4=Acute Joint/Muscle Pain Runny Nose/ Eye Tearin= Nasal Congestion GI Upset > 30mins: 1= Stomach Cramp Tremor Observation: 0= None Yawning Observation: 0= None Anxiety or Irritability: 2=Irritable/Anxious Goose Flesh Skin: 0=Smooth Skin COWS Score: 14 Assessment Plan - Diagnosis (1) Fracture dislocation of ankle Status: Acute (2) Opioid dependence with withdrawal Status: Acute (3) ANASTASIA (acute kidney injury) Status: Acute (4) Diabetes mellitus treated with oral medication Status: Chronic Comment: sees primary, BGM 128 yesterday (5) Hypertension Status: Chronic Qualifiers: Hypertension type: essential hypertension Qualified Code(s): I10 - Essential (primary) hypertension Comment: on meds, sees primary (6) Morbid obesity Status: Chronic Comment: thinking about wt loss surgery - to f/u with primary (7) Substance induced mood disorder Status: Chronic (8) Use of cane as ambulatory aid Status: Chronic - Plan Plan: 47 yo f with multiple medical comorbidities pot op reduction left ankle fx now c /o pain, opioid withdrawal sx and constaiption, insomnia would like to restart suboxone maintenance. will give suboxoen 8mg bid with colaace and senna at night for constipation, may need enema, naprosyn atc for pain while hospitalized , do not give when discharged, cont lyrica 100mg tid for diabetic peripheral neuropathy, watch kidney function, vitamine and thiamine started. follow up [facility] with Rosa Spicer. Patient reports she has suboxoenn at home and will not need prescription when discharged. Diogo Tee MD [phone] - Medication Detox Regimen/Protocol: Suboxone (restart suboxone 8mg bid daily for pain and addiction with laxatives), Not Applicable"
[2017-08-02] MEDS ORDERED: BUPRENORPHINE/NALOXONE 8 MG/2 MG FILM PACKET SL ONE (14:39)
[2017-08-02] MEDS ORDERED: diazePAM 5 MG TABLET PO ONE (15:00)
[2017-08-02] MEDS ORDERED: SENNOSIDES 8.6MG TABLET (FP) PO ONE (15:00)
[2017-08-02] MEDS: BUPRENORPHINE/NALOXONE 8 MG/2 MG FILM PACKET SL SCH ×2 (15:51→21:44)
[2017-08-02] MEDS: PANTOPRAZOLE 40 MG TABLET (FP) PO SCH (15:51)
[2017-08-02] MEDS: DOXYCYCLINE HYCLATE 100 MG CAPSULE PO SCH (17:03)
[2017-08-02] MEDS: ACETAMINOPHEN 325 MG TABLET (FP) PO PRN (18:55)
[2017-08-02] MEDS: ENOXAPARIN NA (PORCINE) 80 MG/0.8 ML DISP.SYRIN SQ SCH (19:50)
[2017-08-02] MEDS ORDERED: QUEtiapine FUMARATE 25 MG TABLET (FP) ONE (21:37)
[2017-08-02] MEDS ORDERED: PT OWN MED DRAWER 7, Y5N ONE (21:38)
[2017-08-02] MEDS: NAPROXEN 500 MG TABLET (FP) PO SCH (21:42)
[2017-08-02] MEDS: DOCUSATE SODIUM 100 MG CAPSULE (FP) PO SCH (21:42)
[2017-08-02] MEDS: QUEtiapine FUMARATE 50 MG TABLET PO SCH (21:43)
[2017-08-02] MEDS: traZODone HCL 50 MG TABLET (FP) PO SCH (21:43)
[2017-08-02] MEDS: SENNOSIDES 8.6MG TABLET (FP) PO SCH (21:43)
[2017-08-02] MEDS: diazePAM 5 MG TABLET PO SCH (21:43)
[2017-08-02] MEDS: THIAMINE HCL 100 MG TABLET (FP) PO SCH (21:43)
[2017-08-02] MEDS ORDERED: ZOLPIDEM TARTRATE 5 MG TABLET PO PRN (22:00)
[2017-08-03] MEDS: INSULIN SLIDING SCALE (NOVOLOG) 1 VIAL SQ SCH ×4 (06:49→22:09)
[2017-08-03] MEDS: ACETAMINOPHEN 325 MG TABLET (FP) PO PRN ×2 (06:49→18:09)
[2017-08-03] MEDS: PREGABALIN 50 MG CAPSULE PO SCH ×3 (06:49→22:07)
[2017-08-03] MEDS: ENOXAPARIN NA (PORCINE) 80 MG/0.8 ML DISP.SYRIN SQ SCH ×2 (06:50→17:20)
[2017-08-03 08:58] LABS: CHLORIDE 104 mmol/L (98-107); HEMOGLOBIN 12.1 GM/dL (10.7-15.3); MCH 27.8 pg (25.7-33.7); MCHC 31.9 g/dl (32.0-36.0); MEAN CELL VOLUME 87.2 fl (80-96); MEAN PLT VOLUME 8.6 fl (7.5-11.1); PLATELET COUNT 219 K/MM3 (134-434); RBC 4.36 M/mm3 (3.60-5.2); RDW 14.7 % (11.6-15.6); SODIUM 141 mmol/L (136-145); WHITE BLOOD COUNT 7.2 K/mm3 (4.0-10.0)
[2017-08-03 09:05] LABS: ALBUMIN 3.2 g/dl (3.4-5.0); ALK PHOS 64 U/L (45-117); ANION GAP 11 (8-16); BILIRUBIN,TOTAL 0.8 mg/dL (0.2-1.0); BLOOD UREA NITROGEN 39 mg/dL (7-18); CALCIUM 8.9 mg/dL (8.5-10.1); CO2 26 mmol/L (21-32); CREATININE 1.1 mg/dL (0.55-1.02); GLUCOSE,RANDOM 156 mg/dL (74-106); SGOT/AST 15 U/L (15-37); SGPT/ALT 24 U/L (12-78); TOT PROT 6.7 g/dl (6.4-8.2)
--- NOTE | 2017-08-03 09:24 | PN ---
Progress Note (short form) - Note Progress Note: Subjective: The patient was seen and examined, she is ambulating with a walker Current Medications Generic Name Dose Route Start Last Admin Trade Name Freq PRN Reason Stop Dose Admin Acetaminophen 650 mg 08/02/17 08:52 Tylenol - PO Q6H PRN PAIN LEVEL 1-5 Docusate Sodium 100 mg 08/01/17 16:40 Colace - PO TID PRN CONSTIPATION Enoxaparin Sodium 80 mg/ 110 mg 08/01/17 22:00 08/02/17 09:39 Enoxaparin Sodium 30 mg SQ 110 mg BID NI Administration Furosemide 80 mg 08/02/17 10:00 08/02/17 09:38 Lasix - PO 80 mg DAILY NI Administration Ibuprofen 800 mg 08/01/17 22:26 Caldolor Injection - IVPB Q8H PRN FEVER Insulin Aspart 1 vial 08/01/17 22:00 08/02/17 06:34 Novolog Vial Sliding Scale - SQ 2 units ACHS NI Administration Protocol Lisinopril 20 mg 08/02/17 10:00 08/02/17 09:39 Prinivil PO 20 mg DAILY NI Administration Oxycodone HCl 5 mg 08/02/17 08:52 08/02/17 09:37 Roxicodone - PO 5 mg Q4H PRN Administration PAIN LEVEL 6-10 Pregabalin 100 mg 08/01/17 22:00 08/02/17 06:25 Lyrica - PO 100 mg TID NI Administration Quetiapine Fumarate 50 mg 08/01/17 22:00 08/01/17 21:55 Seroquel - PO 50 mg HS NI Administration Trazodone HCl 150 mg 08/01/17 22:00 08/01/17 21:55 Desyrel - PO 150 mg HS NI Administration Objective: Vital Signs Period Temp Pulse Resp BP Sys/Puente Pulse Ox Last 24 Hr 98.1 F-99.0 F 107-122 18-22 104-139/65-77 93-94 Physical Exam: General: NAD, A&Ox3, morbidly obese Lungs: CTA bilaterally Heart: RRR, S1S2 Abd: Soft, non-tender, non-distended. Normoactive bowel sounds Ext: Left lower extremity splint in place CBCD WBC 10.4 K/mm3 (4.0-10.0) H 08/02/17 08:00 RBC 4.46 M/mm3 (3.60-5.2) 08/02/17 08:00 Hgb 12.2 GM/dL (10.7-15.3) 08/02/17 08:00 Hct 39.3 % (32.4-45.2) 08/02/17 08:00 MCV 88.2 fl (80-96) 08/02/17 08:00 MCHC 31.1 g/dl (32.0-36.0) L 08/02/17 08:00 RDW 15.3 % (11.6-15.6) 08/02/17 08:00 Plt Count 247 K/MM3 (134-434) 08/02/17 08:00 MPV 8.2 fl (7.5-11.1) 08/02/17 08:00 CMP Sodium 141 mmol/L (136-145) 08/03/17 07:00 Potassium 4.0 mmol/L (3.5-5.1) 08/03/17 07:00 Chloride 104 mmol/L (98-107) 08/03/17 07:00 Carbon Dioxide 26 mmol/L (21-32) 08/03/17 07:00 Anion Gap 11 (8-16) 08/03/17 07:00 BUN 39 mg/dL (7-18) H 08/03/17 07:00 Creatinine 1.1 mg/dL (0.55-1.02) H 08/03/17 07:00 Creat Clearance w eGFR 53.71 (>60) 08/03/17 07:00 Random Glucose 156 mg/dL (74-106) H 08/03/17 07:00 Calcium 8.9 mg/dL (8.5-10.1) 08/03/17 07:00 Total Bilirubin 0.8 mg/dL (0.2-1.0) D 08/03/17 07:00 AST 15 U/L (15-37) 08/03/17 07:00 ALT 24 U/L (12-78) 08/03/17 07:00 Alkaline Phosphatase 64 U/L (45-117) 08/03/17 07:00 Total Protein 6.7 g/dl (6.4-8.2) 08/03/17 07:00 Albumin 3.2 g/dl (3.4-5.0) L 08/03/17 07:00 Assessment: This is a 47 year old female with PMHx of HTN, hyperlipidemia, CHF , DVT s/p IVC filter, NIDDM, chronic leg ulcers, left big toe wound, polysubstance abuse, who presented to the ED after slipping on the icy driveway and twisting her left ankle. Plan: 1) Left posterior and lateral malleolus fracture/dislocation - S/p reduction in the ED - Splint in place - Ambulating now with walker - Pain control with Naprosyn only per detox, will not continue on discharge - Out patient follow-up with ortho for surgery 2) Polysubstance abuse - Continue Suboxone - Valium prn - Trazodone 150mg po hs 3) Hx of DVT - S/p IVC filter - On Lovenox 110mg sq bid at home. Will increase to 150mg sq bid per patient's weight 4) Chronic leg ulcers - Left great toe wound - Continue Doxycycline (07/27- ). Total 14 days - F/u Dr. Knox consult for recommendations on how to treat with splint 5) NIDDM - BGM ACHS - ISS ACHS 6) CHF - No evidence of exacerbation - Continue Lasix 7) F/E/N: - Diabetic/sodium controlled diet - Monitor electrolytes 8) Prophylaxis: - PT - On Lovenox 9) Dispo: - Awaiting SNF placement CODE STATUS: FULL CODE Visit type - Emergency Visit Emergency Visit: Yes ED Registration Date: 08/01/17 Care time: The patient presented to the Emergency Department on the above date and was hospitalized for further evaluation of their emergent condition. - New Patient This patient is new to me today: No - Critical Care Critical Care patient: No
[2017-08-03] MEDS: FUROSEMIDE 40 MG TABLET (FP) PO SCH (09:48)
[2017-08-03] MEDS: LISINOPRIL 20 MG TABLET (FP) PO SCH (09:48)
[2017-08-03] MEDS: BUPRENORPHINE/NALOXONE 8 MG/2 MG FILM PACKET SL SCH (09:48)
[2017-08-03] MEDS: DOXYCYCLINE HYCLATE 100 MG CAPSULE PO SCH ×2 (09:48→17:19)
[2017-08-03] MEDS: PANTOPRAZOLE 40 MG TABLET (FP) PO SCH (09:48)
[2017-08-03] MEDS: NAPROXEN 500 MG TABLET (FP) PO SCH ×2 (09:49→22:08)
[2017-08-03] MEDS: PRENATAL VITAMINS W/ FOLIC ACID TABLET (FP) PO SCH (09:49)
--- NOTE | 2017-08-03 13:53 | PN ---
[facility] Progress Note Note: 47 y/o f pt had opioids d/c'ed , restarted on suboxone 8/2mg s/l bid . Has rt ankle dislocation . Pt given naprosyn 500mg bid and lyrica 100mg tid for pain . Now pt c/o rt ankle pain not relieved by these meds. Will increase suboxone dose to 10/2.5 mg s/l bid which may make pt more comfortable.
[2017-08-03 17:30] LABS: ANION GAP 10 (8-16); BLOOD UREA NITROGEN 40 mg/dL (7-18); CALCIUM 8.2 mg/dL (8.5-10.1); CHLORIDE 106 mmol/L (98-107); CO2 23 mmol/L (21-32); CREATININE 0.9 mg/dL (0.55-1.02); GLUCOSE,RANDOM 244 mg/dL (74-106); SODIUM 139 mmol/L (136-145)
[2017-08-03 17:45] LABS: POTASSIUM 4.5 mmol/L (3.5-5.1)
[2017-08-03] MEDS ORDERED: QUEtiapine FUMARATE 25 MG TABLET (FP) ONE (21:58)
[2017-08-03] MEDS ORDERED: PT OWN MED DRAWER 7, Y5N ONE (21:59)
[2017-08-03] MEDS: THIAMINE HCL 100 MG TABLET (FP) PO SCH (22:07)
[2017-08-03] MEDS: SENNOSIDES 8.6MG TABLET (FP) PO SCH (22:07)
[2017-08-03] MEDS: traZODone HCL 50 MG TABLET (FP) PO SCH (22:07)
[2017-08-03] MEDS: diazePAM 5 MG TABLET PO SCH (22:08)
[2017-08-03] MEDS: DOCUSATE SODIUM 100 MG CAPSULE (FP) PO SCH (22:08)
[2017-08-03] MEDS: QUEtiapine FUMARATE 50 MG TABLET PO SCH (22:08)
[2017-08-03] MEDS: BUPRENORPHINE/NALOXONE 1 EACH, BUPRENORPHINE/NALOXONE 1 EACH SL SCH (22:38)
[2017-08-04] MEDS: INSULIN SLIDING SCALE (NOVOLOG) 1 VIAL SQ SCH ×4 (06:54→21:44)
[2017-08-04] MEDS: PREGABALIN 50 MG CAPSULE PO SCH ×3 (06:54→21:38)
[2017-08-04] MEDS: ENOXAPARIN NA (PORCINE) 80 MG/0.8 ML DISP.SYRIN SQ SCH ×2 (06:55→17:08)
[2017-08-04] MEDS ORDERED: PT OWN MED DRAWER 7, Y5N ONE ×4 (10:03→21:32)
[2017-08-04] MEDS ORDERED: BUPRENORPHINE/NALOXONE 2 MG/0.5 MG FILM PACKET ONE ×2 (10:05→21:31)
[2017-08-04] MEDS ORDERED: BUPRENORPHINE/NALOXONE 8 MG/2 MG FILM PACKET ONE ×2 (10:06→21:32)
[2017-08-04] MEDS: PANTOPRAZOLE 40 MG TABLET (FP) PO SCH (10:08)
[2017-08-04] MEDS: DOXYCYCLINE HYCLATE 100 MG CAPSULE PO SCH ×2 (10:08→17:04)
[2017-08-04] MEDS: LISINOPRIL 20 MG TABLET (FP) PO SCH (10:08)
[2017-08-04] MEDS: FUROSEMIDE 40 MG TABLET (FP) PO SCH ×2 (10:08→10:12)
[2017-08-04] MEDS: BUPRENORPHINE/NALOXONE 1 EACH, BUPRENORPHINE/NALOXONE 1 EACH SL SCH ×2 (10:09→21:37)
[2017-08-04] MEDS: PRENATAL VITAMINS W/ FOLIC ACID TABLET (FP) PO SCH (10:27)
[2017-08-04] MEDS: NAPROXEN 500 MG TABLET (FP) PO SCH ×2 (10:28→21:37)
--- NOTE | 2017-08-04 15:01 | PN ---
Progress Note (short form) - Note Progress Note: Subjective: The patient was seen and examined, she is ambulating with a walker Current Medications Generic Name Dose Route Start Last Admin Trade Name Justinq PRN Reason Stop Dose Admin Acetaminophen 650 mg 08/02/17 08:52 08/03/17 18:09 Tylenol - PO 650 mg Q6H PRN Administration PAIN LEVEL 1-5 Buprenorphine/Naloxone 1 each/ 2 each 08/03/17 22:00 08/04/17 10:09 Buprenorphine/Naloxone 1 each SL 2 each BID NI Administration Diazepam 10 mg 08/02/17 22:00 08/03/17 22:08 Valium - PO 10 mg HS NI Administration Docusate Sodium 300 mg 08/02/17 22:00 08/03/17 22:08 Colace - PO 300 mg HS NI Administration Doxycycline Hyclate 100 mg 08/02/17 18:00 08/04/17 10:08 Vibramycin - PO 100 mg BID@1000,1800 NI Administration Enoxaparin Sodium 150 mg 08/02/17 18:00 08/04/17 06:55 Lovenox - SQ 150 mg BID@0600,1800 NI Administration Furosemide 80 mg 08/02/17 10:00 08/04/17 10:12 Lasix - PO Not Given DAILY NI Insulin Aspart 1 vial 08/01/17 22:00 08/04/17 11:41 Novolog Vial Sliding Scale - SQ 4 units ACHS NI Administration Protocol Lisinopril 20 mg 08/02/17 10:00 08/04/17 10:08 Prinivil PO 20 mg DAILY NI Administration Naproxen 500 mg 08/02/17 22:00 08/04/17 10:28 Naprosyn - PO 500 mg BID NI Administration Pantoprazole Sodium 40 mg 08/02/17 14:45 08/04/17 10:08 Protonix - PO 40 mg DAILY NI Administration Pregabalin 100 mg 08/01/17 22:00 08/04/17 13:13 Lyrica - PO 100 mg TID NI Administration Multivit/Folic Acid/Iron 1 tab 08/03/17 10:00 08/04/17 10:27 Vitamins (Sjr) - PO 1 tab DAILY NI Administration Quetiapine Fumarate 50 mg 08/01/17 22:00 08/03/17 22:08 Seroquel - PO 50 mg HS NI Administration Senna 2 tab 08/02/17 22:00 08/03/17 22:07 Senna - PO 2 tab HS NI Administration Thiamine HCl 100 mg 08/02/17 22:00 08/03/17 22:07 Vitamin B1 - PO 100 mg HS NI Administration Trazodone HCl 150 mg 08/01/17 22:00 08/03/17 22:07 Desyrel - PO 150 mg HS NI Administration Objective: Vital Signs Period Temp Pulse Resp BP Sys/Puente Pulse Ox Last 24 Hr 97.7 F-98.1 F 94-107 12-20 112-132/65-72 94-95 Physical Exam: General: NAD, A&Ox3, morbidly obese Lungs: CTA bilaterally Heart: RRR, S1S2 Abd: Soft, non-tender, non-distended. Normoactive bowel sounds Ext: Left lower extremity splint in place CBCD WBC 7.2 K/mm3 (4.0-10.0) D 08/03/17 07:00 RBC 4.36 M/mm3 (3.60-5.2) 08/03/17 07:00 Hgb 12.1 GM/dL (10.7-15.3) 08/03/17 07:00 Hct 38.0 % (32.4-45.2) 08/03/17 07:00 MCV 87.2 fl (80-96) 08/03/17 07:00 MCHC 31.9 g/dl (32.0-36.0) L 08/03/17 07:00 RDW 14.7 % (11.6-15.6) 08/03/17 07:00 Plt Count 219 K/MM3 (134-434) 08/03/17 07:00 MPV 8.6 fl (7.5-11.1) 08/03/17 07:00 CMP Sodium 139 mmol/L (136-145) 08/03/17 16:05 Potassium 4.5 mmol/L (3.5-5.1) 08/03/17 16:05 Chloride 106 mmol/L (98-107) 08/03/17 16:05 Carbon Dioxide 23 mmol/L (21-32) 08/03/17 16:05 Anion Gap 10 (8-16) 08/03/17 16:05 BUN 40 mg/dL (7-18) H 08/03/17 16:05 Creatinine 0.9 mg/dL (0.55-1.02) 08/03/17 16:05 Creat Clearance w eGFR 53.71 (>60) 08/03/17 07:00 Random Glucose 244 mg/dL (74-106) H 08/03/17 16:05 Calcium 8.2 mg/dL (8.5-10.1) L 08/03/17 16:05 Total Bilirubin 0.8 mg/dL (0.2-1.0) D 08/03/17 07:00 AST 15 U/L (15-37) 08/03/17 07:00 ALT 24 U/L (12-78) 08/03/17 07:00 Alkaline Phosphatase 64 U/L (45-117) 08/03/17 07:00 Total Protein 6.7 g/dl (6.4-8.2) 08/03/17 07:00 Albumin 3.2 g/dl (3.4-5.0) L 08/03/17 07:00 Assessment: This is a 47 year old female with PMHx of HTN, hyperlipidemia, CHF , DVT s/p IVC filter, NIDDM, chronic leg ulcers, left big toe wound, polysubstance abuse, who presented to the ED after slipping on the icy driveway and twisting her left ankle. Plan: 1) Left posterior and lateral malleolus fracture/dislocation - S/p reduction in the ED - Splint in place - Ambulating now with walker - Pain control with Naprosyn only per detox, will not continue on discharge - Out patient follow-up with ortho for surgery 2) Polysubstance abuse - Continue Suboxone, increased yesterday - Valium prn - Trazodone 150mg po hs 3) Hx of DVT - S/p IVC filter - Lovenox 150mg sq bid per patient's weight 4) Chronic leg ulcers - Left great toe wound - Continue Doxycycline (07/27-08/09). Total 14 days - F/u Dr. Knox consult for recommendations on how to treat with splint 5) NIDDM - BGM ACHS - ISS ACHS 6) CHF - No evidence of exacerbation - Continue Lasix 7) F/E/N: - Diabetic/sodium controlled diet - Monitor electrolytes 8) Prophylaxis: - PT - On Lovenox 9) Dispo: - Awaiting SNF placement CODE STATUS: FULL CODE Visit type - Emergency Visit Emergency Visit: Yes ED Registration Date: 08/01/17 Care time: The patient presented to the Emergency Department on the above date and was hospitalized for further evaluation of their emergent condition. - New Patient This patient is new to me today: No - Critical Care Critical Care patient: No
[2017-08-04] MEDS ORDERED: QUEtiapine FUMARATE 25 MG TABLET (FP) ONE (21:32)
[2017-08-04] MEDS: diazePAM 5 MG TABLET PO SCH (21:37)
[2017-08-04] MEDS: DOCUSATE SODIUM 100 MG CAPSULE (FP) PO SCH (21:37)
[2017-08-04] MEDS: SENNOSIDES 8.6MG TABLET (FP) PO SCH (21:37)
[2017-08-04] MEDS: traZODone HCL 50 MG TABLET (FP) PO SCH (21:38)
[2017-08-04] MEDS: QUEtiapine FUMARATE 50 MG TABLET PO SCH (21:38)
[2017-08-04] MEDS: THIAMINE HCL 100 MG TABLET (FP) PO SCH (21:38)
[2017-08-05] MEDS: ENOXAPARIN NA (PORCINE) 80 MG/0.8 ML DISP.SYRIN SQ SCH ×2 (06:29→17:12)
[2017-08-05] MEDS: PREGABALIN 50 MG CAPSULE PO SCH ×3 (06:29→21:39)
[2017-08-05] MEDS ORDERED: PT OWN MED DRAWER 7, Y5N ONE ×3 (06:30→21:25)
[2017-08-05] MEDS: INSULIN SLIDING SCALE (NOVOLOG) 1 VIAL SQ SCH ×4 (06:45→21:38)
--- NOTE | 2017-08-05 09:15 | PN ---
Progress Note (short form) - Note Progress Note: Subjective: The patient was seen and examined, she states overnight she had 10/ 10 pain, now she is rating it at a 6/10. Will reconsult detox for further recommendations regarding pain management Current Medications Generic Name Dose Route Start Last Admin Trade Name Shavon PRN Reason Stop Dose Admin Acetaminophen 650 mg 08/02/17 08:52 08/03/17 18:09 Tylenol - PO 650 mg Q6H PRN Administration PAIN LEVEL 1-5 Buprenorphine/Naloxone 1 each/ 2 each 08/03/17 22:00 08/04/17 21:37 Buprenorphine/Naloxone 1 each SL 2 each BID NI Administration Diazepam 10 mg 08/02/17 22:00 08/04/17 21:37 Valium - PO 10 mg HS NI Administration Docusate Sodium 300 mg 08/02/17 22:00 08/04/17 21:37 Colace - PO 300 mg HS NI Administration Doxycycline Hyclate 100 mg 08/02/17 18:00 08/04/17 17:04 Vibramycin - PO 100 mg BID@1000,1800 NI Administration Enoxaparin Sodium 150 mg 08/02/17 18:00 08/05/17 06:29 Lovenox - SQ 150 mg BID@0600,1800 NI Administration Furosemide 80 mg 08/02/17 10:00 08/04/17 10:12 Lasix - PO Not Given DAILY NI Insulin Aspart 1 vial 08/01/17 22:00 08/05/17 06:45 Novolog Vial Sliding Scale - SQ 2 units ACHS NI Administration Protocol Lisinopril 20 mg 08/02/17 10:00 08/04/17 10:08 Prinivil PO 20 mg DAILY NI Administration Naproxen 500 mg 08/02/17 22:00 08/04/17 21:37 Naprosyn - PO 500 mg BID NI Administration Pantoprazole Sodium 40 mg 08/02/17 14:45 08/04/17 10:08 Protonix - PO 40 mg DAILY NI Administration Pregabalin 100 mg 08/01/17 22:00 08/05/17 06:29 Lyrica - PO 100 mg TID NI Administration Multivit/Folic Acid/Iron 1 tab 08/03/17 10:00 08/04/17 10:27 Vitamins (Sjr) - PO 1 tab DAILY NI Administration Quetiapine Fumarate 50 mg 08/01/17 22:00 08/04/17 21:38 Seroquel - PO 50 mg HS NI Administration Senna 2 tab 08/02/17 22:00 08/04/17 21:37 Senna - PO 2 tab HS NI Administration Thiamine HCl 100 mg 08/02/17 22:00 08/04/17 21:38 Vitamin B1 - PO 100 mg HS NI Administration Trazodone HCl 150 mg 08/01/17 22:00 08/04/17 21:38 Desyrel - PO 150 mg HS NI Administration Objective: Vital Signs Period Temp Pulse Resp BP Sys/Puente Pulse Ox Last 24 Hr 97.8 F-98.3 F 96-112 18-18 119-138/66-74 96-96 Physical Exam: General: NAD, A&Ox3, morbidly obese Lungs: CTA bilaterally Heart: RRR, S1S2 Abd: Soft, non-tender, non-distended. Normoactive bowel sounds Ext: Left lower extremity splint in place CBCD WBC 7.2 K/mm3 (4.0-10.0) D 08/03/17 07:00 RBC 4.36 M/mm3 (3.60-5.2) 08/03/17 07:00 Hgb 12.1 GM/dL (10.7-15.3) 08/03/17 07:00 Hct 38.0 % (32.4-45.2) 08/03/17 07:00 MCV 87.2 fl (80-96) 08/03/17 07:00 MCHC 31.9 g/dl (32.0-36.0) L 08/03/17 07:00 RDW 14.7 % (11.6-15.6) 08/03/17 07:00 Plt Count 219 K/MM3 (134-434) 08/03/17 07:00 MPV 8.6 fl (7.5-11.1) 08/03/17 07:00 CMP Sodium 139 mmol/L (136-145) 08/03/17 16:05 Potassium 4.5 mmol/L (3.5-5.1) 08/03/17 16:05 Chloride 106 mmol/L (98-107) 08/03/17 16:05 Carbon Dioxide 23 mmol/L (21-32) 08/03/17 16:05 Anion Gap 10 (8-16) 08/03/17 16:05 BUN 40 mg/dL (7-18) H 08/03/17 16:05 Creatinine 0.9 mg/dL (0.55-1.02) 08/03/17 16:05 Creat Clearance w eGFR 53.71 (>60) 08/03/17 07:00 Random Glucose 244 mg/dL (74-106) H 08/03/17 16:05 Calcium 8.2 mg/dL (8.5-10.1) L 08/03/17 16:05 Total Bilirubin 0.8 mg/dL (0.2-1.0) D 08/03/17 07:00 AST 15 U/L (15-37) 08/03/17 07:00 ALT 24 U/L (12-78) 08/03/17 07:00 Alkaline Phosphatase 64 U/L (45-117) 08/03/17 07:00 Total Protein 6.7 g/dl (6.4-8.2) 08/03/17 07:00 Albumin 3.2 g/dl (3.4-5.0) L 08/03/17 07:00 Assessment: This is a 47 year old female with PMHx of HTN, hyperlipidemia, CHF , DVT s/p IVC filter, NIDDM, chronic leg ulcers, left big toe wound, polysubstance abuse, who presented to the ED after slipping on the [place] driveway and twisting her left ankle. Plan: 1) Left posterior and lateral malleolus fracture/dislocation - S/p reduction in the ED - Splint in place - Ambulating now with walker - Pain control with Naprosyn only per detox, will not continue on discharge - Out patient follow-up with ortho for surgery 2) Polysubstance abuse - Continue Suboxone, increased 08/03 - Valium prn - Trazodone 150mg po hs 3) Hx of DVT - S/p IVC filter - Lovenox 150mg sq bid (failed out patient xarelto?) 4) Chronic leg ulcers - Left great toe wound - Continue Doxycycline (07/27-08/09). Total 14 days - F/u Dr. Knox consult for recommendations on how to treat with splint 5) NIDDM - BGM ACHS - ISS ACHS 6) CHF - No evidence of exacerbation - Continue Lasix 7) F/E/N: - Diabetic/sodium controlled diet - Monitor electrolytes 8) Prophylaxis: - PT - On Lovenox 9) Dispo: - Awaiting SNF placement CODE STATUS: FULL CODE Visit type - Emergency Visit Emergency Visit: Yes ED Registration Date: 08/01/17 Care time: The patient presented to the Emergency Department on the above date and was hospitalized for further evaluation of their emergent condition. - New Patient This patient is new to me today: No - Critical Care Critical Care patient: No
[2017-08-05] MEDS ORDERED: BUPRENORPHINE/NALOXONE 8 MG/2 MG FILM PACKET ONE (09:57)
[2017-08-05] MEDS ORDERED: BUPRENORPHINE/NALOXONE 2 MG/0.5 MG FILM PACKET ONE (09:57)
[2017-08-05] MEDS: LISINOPRIL 20 MG TABLET (FP) PO SCH (10:02)
[2017-08-05] MEDS: DOXYCYCLINE HYCLATE 100 MG CAPSULE PO SCH ×2 (10:02→17:12)
[2017-08-05] MEDS: NAPROXEN 500 MG TABLET (FP) PO SCH ×2 (10:02→21:38)
[2017-08-05] MEDS: FUROSEMIDE 40 MG TABLET (FP) PO SCH (10:02)
[2017-08-05] MEDS: PANTOPRAZOLE 40 MG TABLET (FP) PO SCH (10:02)
[2017-08-05] MEDS: PRENATAL VITAMINS W/ FOLIC ACID TABLET (FP) PO SCH (10:02)
[2017-08-05] MEDS: BUPRENORPHINE/NALOXONE 1 EACH, BUPRENORPHINE/NALOXONE 1 EACH SL SCH (10:03)
--- NOTE | 2017-08-05 13:07 | PN ---
[facility] Progress Note (SOAP) Subjective: I was ask for a f/u because pt. is c/o pain and because of suboxone they're unable to use other opiate Objective: 08/05/17 13:05 Vital Signs - 8 hr 08/05/17 08/05/17 05:31 08:00 Temperature 98.2 F 98.0 F Pulse Rate 112 H 98 H Respiratory 18 18 Rate Blood Pressure 136/70 119/73 O2 Sat by Pulse 96 Oximetry (%) Assessment: 08/05/17 13:06 opioid dependence on agonist therapy Plan: Increase suboxone to 16mg bid
[2017-08-05] MEDS ORDERED: BUPRENORPHINE/NALOXONE 2 MG/0.5 MG FILM PACKET SL ONE (13:30)
[2017-08-05] MEDS ORDERED: INSULIN (NOVOLOG) ASPART 100 UNITS/ML 10ML VIAL ONE (21:25)
[2017-08-05] MEDS ORDERED: QUEtiapine FUMARATE 25 MG TABLET (FP) ONE (21:25)
[2017-08-05] MEDS: DOCUSATE SODIUM 100 MG CAPSULE (FP) PO SCH (21:38)
[2017-08-05] MEDS: QUEtiapine FUMARATE 50 MG TABLET PO SCH (21:38)
[2017-08-05] MEDS: diazePAM 5 MG TABLET PO SCH (21:39)
[2017-08-05] MEDS: traZODone HCL 50 MG TABLET (FP) PO SCH (21:39)
[2017-08-05] MEDS: BUPRENORPHINE/NALOXONE 8 MG/2 MG FILM PACKET SL SCH (21:39)
[2017-08-05] MEDS: THIAMINE HCL 100 MG TABLET (FP) PO SCH (21:39)
[2017-08-05] MEDS: SENNOSIDES 8.6MG TABLET (FP) PO SCH (21:39)
[2017-08-06] MEDS: INSULIN SLIDING SCALE (NOVOLOG) 1 VIAL SQ SCH ×4 (06:33→21:22)
[2017-08-06] MEDS: PREGABALIN 50 MG CAPSULE PO SCH ×3 (06:34→21:23)
[2017-08-06] MEDS: ENOXAPARIN NA (PORCINE) 80 MG/0.8 ML DISP.SYRIN SQ SCH ×2 (06:34→18:09)
[2017-08-06] MEDS ORDERED: PT OWN MED DRAWER 7, Y5N ONE ×4 (09:19→21:15)
[2017-08-06] MEDS: LISINOPRIL 20 MG TABLET (FP) PO SCH (09:23)
[2017-08-06] MEDS: NAPROXEN 500 MG TABLET (FP) PO SCH ×2 (09:23→21:25)
[2017-08-06] MEDS: DOXYCYCLINE HYCLATE 100 MG CAPSULE PO SCH ×2 (09:23→18:05)
[2017-08-06] MEDS: PRENATAL VITAMINS W/ FOLIC ACID TABLET (FP) PO SCH (09:23)
[2017-08-06] MEDS: FUROSEMIDE 40 MG TABLET (FP) PO SCH (09:23)
[2017-08-06] MEDS: BUPRENORPHINE/NALOXONE 8 MG/2 MG FILM PACKET SL SCH ×2 (09:23→21:24)
[2017-08-06] MEDS: PANTOPRAZOLE 40 MG TABLET (FP) PO SCH (09:23)
[2017-08-06] MEDS ORDERED: INSULIN (NOVOLOG) ASPART 100 UNITS/ML 10ML VIAL ONE ×2 (11:06→21:16)
--- NOTE | 2017-08-06 12:47 | PN ---
Physical Exam: SUBJECTIVE: Patient seen and examined at the bedside. States her pain is controlled, denies chest pain or any discomfort. OBJECTIVE: Period Temp Pulse Resp BP Sys/Puente Pulse Ox Last 24 Hr 98.7 F-98.8 F 78-122 18-19 107-141/69-88 96 GENERAL: The patient is awake, alert, and fully oriented, in no acute distress. HEAD: Normal with no signs of trauma. EYES: PERRL, extraocular movements intact, sclera anicteric, conjunctiva clear. No ptosis. ENT: Ears normal, nares patent, oropharynx clear without exudates, moist mucous membranes. NECK: Trachea midline, full range of motion, supple. LUNGS: Breath sounds equal, clear to auscultation bilaterally, no wheezes, no crackles, no accessory muscle use. HEART: Regular rate and rhythm, S1, S2 without murmur, rub or gallop. ABDOMEN: obese abdomen, soft EXTREMITIES: left leg with soft cast s/p fracture NEUROLOGICAL: Normal speech, gait not observed. PSYCH: Normal mood, normal affect. SKIN: Warm, dry, normal turgor, no rashes or lesions noted Laboratory Results - last 24 hr 08/05/17 08/05/17 08/06/17 16:17 21:36 06:32 POC Glucometer 176 284 169 08/06/17 10:54 POC Glucometer 254 Active Medications Generic Name Dose Route Start Last Admin Trade Name Freq PRN Reason Stop Dose Admin Acetaminophen 650 mg 08/02/17 08:52 08/03/17 18:09 Tylenol - PO 650 mg Q6H PRN Administration PAIN LEVEL 1-5 Buprenorphine/Naloxone 2 each 08/05/17 22:00 08/06/17 09:23 Suboxone 8mg/2mg Sl Film - SL 2 each BID NI Administration Diazepam 10 mg 08/02/17 22:00 08/05/17 21:39 Valium - PO 10 mg HS NI Administration Docusate Sodium 300 mg 08/02/17 22:00 08/05/17 21:38 Colace - PO 300 mg HS NI Administration Doxycycline Hyclate 100 mg 08/02/17 18:00 08/06/17 09:23 Vibramycin - PO 100 mg BID@1000,1800 NI Administration Enoxaparin Sodium 150 mg 08/02/17 18:00 08/06/17 06:34 Lovenox - SQ 150 mg BID@0600,1800 NI Administration Furosemide 80 mg 08/02/17 10:00 08/06/17 09:23 Lasix - PO Not Given DAILY NI Insulin Aspart 1 vial 08/01/17 22:00 08/06/17 11:11 Novolog Vial Sliding Scale - SQ 4 units ACHS NI Administration Protocol Lisinopril 20 mg 08/02/17 10:00 08/06/17 09:23 Prinivil PO 20 mg DAILY NI Administration Naproxen 500 mg 08/02/17 22:00 08/06/17 09:23 Naprosyn - PO 500 mg BID NI Administration Pantoprazole Sodium 40 mg 08/02/17 14:45 08/06/17 09:23 Protonix - PO 40 mg DAILY NI Administration Pregabalin 100 mg 08/01/17 22:00 08/06/17 06:34 Lyrica - PO 100 mg TID NI Administration Multivit/Folic Acid/Iron 1 tab 08/03/17 10:00 08/06/17 09:23 Vitamins (Sjr) - PO 1 tab DAILY NI Administration Quetiapine Fumarate 50 mg 08/01/17 22:00 08/05/17 21:38 Seroquel - PO 50 mg HS NI Administration Senna 2 tab 08/02/17 22:00 08/05/17 21:39 Senna - PO 2 tab HS NI Administration Thiamine HCl 100 mg 08/02/17 22:00 08/05/17 21:39 Vitamin B1 - PO 100 mg HS NI Administration Trazodone HCl 150 mg 08/01/17 22:00 08/05/17 21:39 Desyrel - PO 150 mg HS NI Administration ASSESSMENT/PLAN: Patient is a 47 year old female with a signficant past medical history of hypertensin, hld, CHF, DVT with IVC filter, diabetes and polysubtance abuse. She presents to the ED on 08/01/2017 with a fall after falling on her driveway on an ice patch and twisting her left ankle. Skeletal: Left posterior and lateral malleolus fracture/dislocation, acute Soft splint in place, ambulates with RW with PT Pain control with Naprosysn 500mg BID Also on Subxone for polysubstance abuse Patient to follow up outpatient for surgical repair Psyche Polysubstance abuse history Calm, cooperative on exam On Suboxone maintenance dose as per psyche Valium 10mg @ hs On Seroquel Hematology: DVT history, chronic On Lovenox 150mg BID Vascular: Chronic leg ulcers Doxycycline to continue until 08/09/2016 Vascular consult F.E.N. Fluids: tolerating PO Electrolytes: monitor Nutrition: diabetic diet Prophylaxis: DVT: Lovenox BID GI: deferred Disposition: awaiting SNF placement.
--- NOTE | 2017-08-06 21:11 | PN ---
Progress Note (short form) - Note Progress Note: Pt lying comf in bed. Pain well controlled. AF VSS RLE in splint Great toe with necrotic lesion at tip. No gross evidence of infection at this time. Sensation globally decreased. CR<2 lesser toes. Able to df pf toes. A/p: R unstable ankle fracture -I reviewed today's findings with Traci -advised her ankle fracture is unstable and most often is treated with surgical fixation -that being said, I have a number of concerns about her healing 1) diabetes -patient's glucose poorly controlled -patient is actively making an effort to avoid a healthy diet (nurse informed me she is eating sugary snacks and fast food brought into hospital) -uncontrolled diabetes makes the patient a much higher risk for infection, bone healing and wound healing 2) vascular status -patient has multiple ulcerations and chronic, unhealing wound on her toe -also evidence of chronic venous stasis -advised that this indicates her healing ability is limited 3) neuropathy -this limits patient's ability to protect her ankle after a surgical procedure -higher risk of loss of fixation and infection 4) history of polysubstance abuse and multiple relapses -concerns about how well patient is able to comply with post op limitations 5) DVT -surgery is another risk factor for stasis, could result in recurrent DVT 6) Morbid obesity -adds cardiovascular risk -all these factors make the patient very high risk for surgical intervention -advised that in a worst case scenario, she would develop intractable infection which could lead to amputation -I reviewed with the patient that her ankle alignment is not far off, only slightly posteriorly translated -recommend closed reduction and casting under conscious sedation -reviewed this is relatively low risk, risks include: anesthetic risk such as heart attack, stroke or , cast pressure sores leading to infection, loss of reduction leading to malunion -if ankle can be maintained in a reasonable alignment I believe this is her best choice -reviewed operative care is possible but I believe that given her complicated medical and psychological history she is very high risk for surgical complications -patient voiced understanding -will take to OR tomorrow for closed reduction and casting
[2017-08-06] MEDS ORDERED: QUEtiapine FUMARATE 25 MG TABLET (FP) ONE (21:15)
[2017-08-06] MEDS: traZODone HCL 50 MG TABLET (FP) PO SCH (21:23)
[2017-08-06] MEDS: SENNOSIDES 8.6MG TABLET (FP) PO SCH (21:23)
[2017-08-06] MEDS: THIAMINE HCL 100 MG TABLET (FP) PO SCH (21:24)
[2017-08-06] MEDS: diazePAM 5 MG TABLET PO SCH (21:24)
[2017-08-06] MEDS: QUEtiapine FUMARATE 50 MG TABLET PO SCH (21:25)
[2017-08-06] MEDS: DOCUSATE SODIUM 100 MG CAPSULE (FP) PO SCH (21:34)
[2017-08-07] MEDS: PREGABALIN 50 MG CAPSULE PO SCH ×3 (06:48→21:32)
[2017-08-07] MEDS: ENOXAPARIN NA (PORCINE) 80 MG/0.8 ML DISP.SYRIN SQ SCH ×2 (06:48→17:12)
[2017-08-07] MEDS: INSULIN SLIDING SCALE (NOVOLOG) 1 VIAL SQ SCH ×4 (06:48→21:33)
--- NOTE | 2017-08-07 09:14 | OP ---
Operative Note - Note: Operative Date: 08/07/17 Pre-Operative Diagnosis: left ankle fracture Operation: left ankle closed reduction and casting Post-Operative Diagnosis: Same as Pre-op Surgeon: Jorge Champion Anesthesia: General Operative Report Dictated: Yes
[2017-08-07] MEDS ORDERED: ONDANSETRON 4 MG/2 ML VIAL IVPUSH PRN (10:05)
[2017-08-07] MEDS ORDERED: LACTATED RINGERS SOLUTION 1,000 ML IV SCH (10:15)
--- NOTE | 2017-08-07 10:47 | OP ---
DATE OF OPERATION: 08/07/2017 PREOPERATIVE DIAGNOSIS: Left ankle fracture. POSTOPERATIVE DIAGNOSIS: Left ankle fracture. PROCEDURE: Left ankle closed reduction and casting. SURGEON: Jorge Nugent MD ANESTHESIA: General. POSTOPERATIVE CONDITION: Stable. COMPLICATIONS: None. INDICATIONS: This is a pleasant, 47-year-old female with multiple medical comorbidities, who suffered an ankle fracture-dislocation. She was initially reduced. However, her initial reduction demonstrated residual posterior displacement of the talus within the ankle mortise. While typically this type of fracture would be managed with surgery, her medical conditions put her at high risk for complications, and therefore, closed treatment was elected. I addressed all the patient's questions. We discussed the risks of closed reduction including pressure ulcers from the cast, loss of reduction, DVT. We discussed the risks of surgery which included significantly inherent infection which could lead to multiple further surgeries and possibly amputation. She elected to proceed and voiced consent and signed consent. DESCRIPTION OF PROCEDURE: The patient was brought to the OR where sedation was administered. The left leg was inspected, demonstrating some chronic venous stasis changes. However, there was no evidence of any skin acute breakdown. There was no evidence of active infection at this time. The patient was then hung in traction by the toes. The ankle was placed into a varus position to maintain reduction. The fluoroscopy was used then to verify the reduction which was satisfactory. The patient was then placed into a well-padded short-leg cast with a varus . The fluoroscopy was used to verify fracture reduction after the cast was hardened, and this was still stable. Patient was woken up and transferred to recovery room in stable condition. JORGE NUGENT M.D. [id number]
[2017-08-07] MEDS: BUPRENORPHINE/NALOXONE 8 MG/2 MG FILM PACKET SL SCH ×3 (11:19→21:34)
[2017-08-07 13:52] LABS: BASO % 0.3 % (0-2.0); EOS % 3.5 % (0-4.5); HEMATOCRIT 34.8 % (32.4-45.2); LYMPH % 14.6 % (8-40); MCH 27.6 pg (25.7-33.7); MCHC 31.5 g/dl (32.0-36.0); MEAN CELL VOLUME 87.7 fl (80-96); MEAN PLT VOLUME 8.5 fl (7.5-11.1); MONO % 8.8 % (3.8-10.2); NEUT % 72.8 % (42.8-82.8); PLATELET COUNT 228 K/MM3 (134-434); RBC 3.96 M/mm3 (3.60-5.2); RDW 14.6 % (11.6-15.6); WHITE BLOOD COUNT 7.6 K/mm3 (4.0-10.0)
[2017-08-07 14:35] LABS: ALBUMIN 2.8 g/dl (3.4-5.0); ANION GAP 8 (8-16); BLOOD UREA NITROGEN 19 mg/dL (7-18); CALCIUM 8.8 mg/dL (8.5-10.1); CHLORIDE 103 mmol/L (98-107); CO2 29 mmol/L (21-32); CREATININE 0.7 mg/dL (0.55-1.02); GLUCOSE,RANDOM 250 mg/dL (74-106); MAGNESIUM 1.9 mg/dL (1.8-2.4); POTASSIUM 4.4 mmol/L (3.5-5.1); SGOT/AST 44 U/L (15-37); SGPT/ALT 39 U/L (12-78); SODIUM 140 mmol/L (136-145)
[2017-08-07 14:37] LABS: ALK PHOS 57 U/L (45-117); BILIRUBIN,TOTAL 0.6 mg/dL (0.2-1.0); TOT PROT 6.4 g/dl (6.4-8.2)
[2017-08-07] MEDS: PANTOPRAZOLE 40 MG TABLET (FP) PO SCH (16:02)
[2017-08-07] MEDS: DOXYCYCLINE HYCLATE 100 MG CAPSULE PO SCH ×2 (16:02→17:13)
[2017-08-07] MEDS: NAPROXEN 500 MG TABLET (FP) PO SCH ×2 (16:03→21:41)
[2017-08-07] MEDS: LISINOPRIL 20 MG TABLET (FP) PO SCH (16:03)
[2017-08-07] MEDS: PRENATAL VITAMINS W/ FOLIC ACID TABLET (FP) PO SCH (16:04)
[2017-08-07] MEDS: FUROSEMIDE 40 MG TABLET (FP) PO SCH (16:04)
[2017-08-07] MEDS ORDERED: INSULIN (NOVOLOG) ASPART 100 UNITS/ML 10ML VIAL ONE (17:05)
--- NOTE | 2017-08-07 20:26 | PN ---
Physical Exam: SUBJECTIVE: Patient seen and examined at the bedside. OBJECTIVE: Left ankle closed reduction and casting today Vital Signs Period Temp Pulse Resp BP Sys/Peunte Pulse Ox Last 24 Hr 98.1 F-98.8 F 76-106 10-19 113-140/62-94 96-98 GENERAL: The patient is awake, alert, and fully oriented, in no acute distress. HEAD: Normal with no signs of trauma. EYES: PERRL, extraocular movements intact, sclera anicteric, conjunctiva clear. No ptosis. ENT: Ears normal, nares patent, oropharynx clear without exudates, moist mucous membranes. NECK: Trachea midline, full range of motion, supple. LUNGS: Breath sounds equal, clear to auscultation bilaterally, no wheezes, no crackles, no accessory muscle use. HEART: Regular rate and rhythm, S1, S2 without murmur, rub or gallop. ABDOMEN: obese abdomen, soft EXTREMITIES: left leg with soft cast s/p fracture NEUROLOGICAL: Normal speech, gait not observed. PSYCH: Normal mood, normal affect. SKIN: Warm, dry, normal turgor, no rashes or lesions noted Laboratory Results - last 24 hr 08/06/17 08/07/17 08/07/17 21:21 06:46 11:00 WBC RBC Hgb Hct MCV MCH MCHC RDW Plt Count MPV Neutrophils % Lymphocytes % Monocytes % Eosinophils % Basophils % Sodium Potassium Chloride Carbon Dioxide Anion Gap BUN Creatinine Creat Clearance w eGFR POC Glucometer 193 164 155 Random Glucose Calcium Magnesium Total Bilirubin AST ALT Alkaline Phosphatase Total Protein Albumin 08/07/17 08/07/17 08/07/17 13:18 13:18 16:48 WBC 7.6 RBC 3.96 Hgb 11.0 Hct 34.8 MCV 87.7 MCH 27.6 MCHC 31.5 L RDW 14.6 Plt Count 228 MPV 8.5 Neutrophils % 72.8 Lymphocytes % 14.6 Monocytes % 8.8 Eosinophils % 3.5 Basophils % 0.3 Sodium 140 Potassium 4.4 Chloride 103 Carbon Dioxide 29 Anion Gap 8 BUN 19 H Creatinine 0.7 Creat Clearance w eGFR > 60 POC Glucometer 221 Random Glucose 250 H Calcium 8.8 Magnesium 1.9 Total Bilirubin 0.6 D AST 44 H ALT 39 Alkaline Phosphatase 57 Total Protein 6.4 Albumin 2.8 L Active Medications Generic Name Dose Route Start Last Admin Trade Name Freq PRN Reason Stop Dose Admin Acetaminophen 650 mg 08/07/17 10:16 Tylenol - PO Q6H PRN PAIN LEVEL 1-5 Buprenorphine/Naloxone 2 each 08/07/17 11:15 08/07/17 11:19 Suboxone 8mg/2mg Sl Film - SL 2 each BID NI Administration Calcium Carbonate/Cholecalciferol 1 tab 08/07/17 22:00 Os-Eros 500+D - PO BID@1200,2200 [facility] Diazepam 10 mg 08/07/17 22:00 Valium - PO HS [facility] Docusate Sodium 300 mg 08/07/17 22:00 Colace - PO HS [facility] Doxycycline Hyclate 100 mg 08/07/17 18:00 08/07/17 17:13 Vibramycin - PO 100 mg BID@1000,1800 [facility] Administration Enoxaparin Sodium 150 mg 08/07/17 18:00 08/07/17 17:12 Lovenox - SQ 150 mg BID@0600,1800 NI Administration Furosemide 80 mg 08/08/17 10:00 Lasix - PO DAILY [facility] Insulin Aspart 1 vial 08/07/17 11:00 08/07/17 17:13 Novolog Vial Sliding Scale - SQ 4 units ACHS NI Administration Protocol Lisinopril 20 mg 08/08/17 10:00 Prinivil PO DAILY [facility] Naproxen 500 mg 08/07/17 22:00 Naprosyn - PO BID [facility] Ondansetron HCl 4 mg 08/07/17 10:05 Zofran Injection IVPUSH Q6H PRN NAUSEA AND/OR VOMITING Pantoprazole Sodium 40 mg 08/08/17 10:00 Protonix - PO DAILY [facility] Pregabalin 100 mg 08/07/17 14:00 08/07/17 14:56 Lyrica - PO 100 mg TID [facility] Administration Multivit/Folic Acid/Iron 1 tab 08/08/17 10:00 Vitamins (Sjr) - PO DAILY [facility] Quetiapine Fumarate 50 mg 08/07/17 22:00 Seroquel - PO HS [facility] Senna 2 tab 08/07/17 22:00 Senna - PO HS [facility] Thiamine HCl 100 mg 08/07/17 22:00 Vitamin B1 - PO HS [facility] Trazodone HCl 150 mg 08/07/17 22:00 Desyrel - PO [facility] ASSESSMENT/PLAN: Patient is a 47 year old female with a significant past medical history of hypertension, hld, CHF, DVT with IVC filter, diabetes and polysubtance abuse. She presents to the ED on 08/01/2017 with a fall after falling on her driveway on an ice patch and twisting her left ankle. Skeletal: Left posterior and lateral malleolus fracture/dislocation, acute Left ankle closed reduction and casting today Pain control with Naprosysn 500mg BID Also on Suboxone for polysubstance abuse Monitor pain, avoid narcotics Psyche Polysubstance abuse history Calm, cooperative on exam On Suboxone maintenance dose as per psyche Valium 10mg @ hs On Seroquel Hematology: DVT history, chronic On Lovenox 150mg BID Vascular: Chronic leg ulcers Doxycycline to continue until 08/09/2016 Vascular consult F.E.N. Fluids: tolerating PO Electrolytes: monitor Nutrition: diabetic diet Prophylaxis: DVT: Lovenox BID GI: deferred Disposition: awaiting SNF placement. Visit type - Emergency Visit Emergency Visit: Yes ED Registration Date: 08/01/17 Care time: The patient presented to the Emergency Department on the above date and was hospitalized for further evaluation of their emergent condition. - New Patient This patient is new to me today: No - Critical Care Critical Care patient: No - Discharge Referral Referred to [facility] Med P.C.: No
[2017-08-07] MEDS ORDERED: QUEtiapine FUMARATE 25 MG TABLET (FP) ONE (21:22)
[2017-08-07] MEDS: CALCIUM 500MG/VIT-D 200 UNITS COMBO TABLET (FP) PO SCH (21:30)
[2017-08-07] MEDS: SENNOSIDES 8.6MG TABLET (FP) PO SCH (21:30)
[2017-08-07] MEDS: QUEtiapine FUMARATE 50 MG TABLET PO SCH (21:31)
[2017-08-07] MEDS: traZODone HCL 50 MG TABLET (FP) PO SCH (21:32)
[2017-08-07] MEDS: THIAMINE HCL 100 MG TABLET (FP) PO SCH (21:32)
[2017-08-07] MEDS: DOCUSATE SODIUM 100 MG CAPSULE (FP) PO SCH (21:33)
[2017-08-07] MEDS: diazePAM 5 MG TABLET PO SCH (21:33)
[2017-08-08] MEDS: PREGABALIN 50 MG CAPSULE PO SCH ×3 (06:04→22:16)
[2017-08-08] MEDS: ENOXAPARIN NA (PORCINE) 80 MG/0.8 ML DISP.SYRIN SQ SCH ×2 (06:05→17:21)
[2017-08-08] MEDS: INSULIN SLIDING SCALE (NOVOLOG) 1 VIAL SQ SCH ×4 (06:36→22:18)
[2017-08-08 08:08] LABS: BASO % 0.7 % (0-2.0); EOS % 4.5 % (0-4.5); HEMATOCRIT 33.7 % (32.4-45.2); HEMOGLOBIN 10.8 GM/dL (10.7-15.3); LYMPH % 21.1 % (8-40); MCH 27.9 pg (25.7-33.7); MEAN CELL VOLUME 87.1 fl (80-96); MEAN PLT VOLUME 8.4 fl (7.5-11.1); MONO % 9.6 % (3.8-10.2); NEUT % 64.1 % (42.8-82.8); PLATELET COUNT 245 K/MM3 (134-434); RBC 3.87 M/mm3 (3.60-5.2); RDW 14.4 % (11.6-15.6)
--- NOTE | 2017-08-08 08:22 | PN ---
Progress Note (short form) - Note Progress Note: ANESTHESIOLOGY POST-OP CHECK 47F s/p closed reduction of ankle fracture under general anesthesia POD #1. No acute complaints. Pain 4/10 and tolerable. Denies N/V. Vital Signs Temperature 98.4 F 08/08/17 06:00 Pulse Rate 99 H 08/08/17 06:00 Respiratory Rate 18 08/08/17 06:00 Blood Pressure 138/80 08/08/17 06:00 O2 Sat by Pulse Oximetry (%) 96 08/07/17 21:00 Active Medications Acetaminophen (Tylenol -) 650 mg PO Q6H PRN PRN Reason: PAIN LEVEL 1-5 Buprenorphine/Naloxone (Suboxone 8mg/2mg Sl Film -) 2 each SL BID [facility] Last Admin: 08/07/17 21:34 Dose: 2 each Calcium Carbonate/Cholecalciferol (Os-Eros 500+D -) 1 tab PO BID@1200,2200 [facility] Last Admin: 08/07/17 21:30 Dose: 1 tab Diazepam (Valium -) 10 mg PO HS [facility] Last Admin: 08/07/17 21:33 Dose: 10 mg Docusate Sodium (Colace -) 300 mg PO HS [facility] Last Admin: 08/07/17 21:33 Dose: 300 mg Doxycycline Hyclate (Vibramycin -) 100 mg PO BID@1000,1800 [facility] Last Admin: 08/07/17 17:13 Dose: 100 mg Enoxaparin Sodium (Lovenox -) 150 mg SQ BID@0600,1800 [facility] Last Admin: 08/08/17 06:05 Dose: 150 mg Furosemide (Lasix -) 80 mg PO DAILY [facility] Insulin Aspart (Novolog Vial Sliding Scale -) 1 vial SQ ACHS [facility] PRN Reason: Protocol Last Admin: 08/08/17 06:36 Dose: 2 units Lisinopril (Prinivil) 20 mg PO DAILY [facility] Naproxen (Naprosyn -) 500 mg PO BID [facility] Last Admin: 08/07/17 21:41 Dose: 500 mg Ondansetron HCl (Zofran Injection) 4 mg IVPUSH Q6H PRN PRN Reason: NAUSEA AND/OR VOMITING Pantoprazole Sodium (Protonix -) 40 mg PO DAILY [facility] Pregabalin (Lyrica -) 100 mg PO TID [facility] Last Admin: 08/08/17 06:04 Dose: 100 mg Multivit/Folic Acid/Iron ( Vitamins (Sjr) -) 1 tab PO DAILY [facility] Quetiapine Fumarate (Seroquel -) 50 mg PO [facility] Last Admin: 08/07/17 21:31 Dose: 50 mg Senna (Senna -) 2 tab PO HS [facility] Last Admin: 08/07/17 21:30 Dose: 2 tab Thiamine HCl (Vitamin B1 -) 100 mg PO [facility] Last Admin: 08/07/17 21:32 Dose: 100 mg Trazodone HCl (Desyrel -) 150 mg PO [facility] Last Admin: 08/07/17 21:32 Dose: 150 mg Gen: Awake, alert No appareant anesthesia complications. Pain well controlled. Continue management as per primary team.
[2017-08-08 08:51] LABS: ALBUMIN 2.8 g/dl (3.4-5.0); ANION GAP 9 (8-16); BLOOD UREA NITROGEN 19 mg/dL (7-18); CALCIUM 8.9 mg/dL (8.5-10.1); CHLORIDE 102 mmol/L (98-107); CO2 29 mmol/L (21-32); CREATININE 0.6 mg/dL (0.55-1.02); GLUCOSE,RANDOM 145 mg/dL (74-106); MAGNESIUM 1.7 mg/dL (1.8-2.4); POTASSIUM 4.1 mmol/L (3.5-5.1); SGOT/AST 26 U/L (15-37); SGPT/ALT 38 U/L (12-78); SODIUM 140 mmol/L (136-145)
[2017-08-08 08:53] LABS: ALK PHOS 58 U/L (45-117); BILIRUBIN,TOTAL 0.5 mg/dL (0.2-1.0); TOT PROT 6.3 g/dl (6.4-8.2)
[2017-08-08] MEDS ORDERED: PT OWN MED DRAWER 7, Y5N ONE ×3 (09:32→17:18)
[2017-08-08] MEDS: FUROSEMIDE 40 MG TABLET (FP) PO SCH (09:37)
[2017-08-08] MEDS: NAPROXEN 500 MG TABLET (FP) PO SCH ×2 (09:37→22:18)
[2017-08-08] MEDS: LISINOPRIL 20 MG TABLET (FP) PO SCH (09:38)
[2017-08-08] MEDS: PANTOPRAZOLE 40 MG TABLET (FP) PO SCH (09:38)
[2017-08-08] MEDS: PRENATAL VITAMINS W/ FOLIC ACID TABLET (FP) PO SCH (09:38)
[2017-08-08] MEDS: BUPRENORPHINE/NALOXONE 8 MG/2 MG FILM PACKET SL SCH ×2 (09:39→22:18)
[2017-08-08] MEDS: DOXYCYCLINE HYCLATE 100 MG CAPSULE PO SCH ×2 (09:39→17:20)
[2017-08-08] MEDS: CALCIUM 500MG/VIT-D 200 UNITS COMBO TABLET (FP) PO SCH ×2 (12:04→22:17)
[2017-08-08] MEDS: NYSTATIN POWDER 100,000 UNITS/GM - 15 GM TOPICAL POWDER TP SCH (14:36)
--- NOTE | 2017-08-08 15:39 | PN ---
Physical Exam: SUBJECTIVE: Patient seen and examined. States she feels well, denies any pain. States pain is being managed with Suboxone. OBJECTIVE: Patient c/o of left great toe numbness Patient to elevated left lower ext. on 3 pillows Vascular consulted, Ortho following Vital Signs Period Temp Pulse Resp BP Sys/Puente Pulse Ox Last 24 Hr 98.1 F-98.7 F 99-106 18-20 138-154/63-94 96-96 GENERAL: The patient is awake, alert, and fully oriented, in no acute distress. HEAD: Normal with no signs of trauma. EYES: PERRL, extraocular movements intact, sclera anicteric, conjunctiva clear. No ptosis. ENT: Ears normal, nares patent, oropharynx clear without exudates, moist mucous membranes. NECK: Trachea midline, full range of motion, supple. HEART: Regular rate and rhythm, S1, S2 without murmur, rub or gallop. ABDOMEN: obese abdomen, soft EXTREMITIES: left leg with soft cast s/p reduction and cast placement, left great toe warm to touch, no discoloration, vascular consulted/elevate limb on 3 pillows NEUROLOGICAL: Normal speech, gait not observed. PSYCH: Normal mood, normal affect. SKIN: Warm, dry, normal turgor, no rashes or lesions noted Laboratory Results - last 24 hr 08/07/17 08/07/17 08/08/17 16:48 21:16 05:56 WBC RBC Hgb Hct MCV MCH MCHC RDW Plt Count MPV Neutrophils % Lymphocytes % Monocytes % Eosinophils % Basophils % Sodium Potassium Chloride Carbon Dioxide Anion Gap BUN Creatinine Creat Clearance w eGFR POC Glucometer 221 251 168 Random Glucose Calcium Magnesium Total Bilirubin AST ALT Alkaline Phosphatase Total Protein Albumin 08/08/17 08/08/17 08/08/17 06:30 06:30 11:49 WBC 7.0 RBC 3.87 Hgb 10.8 Hct 33.7 MCV 87.1 MCH 27.9 MCHC 32.0 RDW 14.4 Plt Count 245 MPV 8.4 Neutrophils % 64.1 Lymphocytes % 21.1 D Monocytes % 9.6 Eosinophils % 4.5 Basophils % 0.7 Sodium 140 Potassium 4.1 Chloride 102 Carbon Dioxide 29 Anion Gap 9 BUN 19 H Creatinine 0.6 Creat Clearance w eGFR > 60 POC Glucometer 229 Random Glucose 145 H Calcium 8.9 Magnesium 1.7 L Total Bilirubin 0.5 AST 26 ALT 38 Alkaline Phosphatase 58 Total Protein 6.3 L Albumin 2.8 L Active Medications Generic Name Dose Route Start Last Admin Trade Name Shavon PRN Reason Stop Dose Admin Acetaminophen 650 mg 08/07/17 10:16 Tylenol - PO Q6H PRN PAIN LEVEL 1-5 Buprenorphine/Naloxone 2 each 08/07/17 11:15 08/08/17 09:39 Suboxone 8mg/2mg Sl Film - SL 2 each BID NI Administration Calcium Carbonate/Cholecalciferol 1 tab 08/07/17 22:00 08/08/17 12:04 Os-Eros 500+D - PO 1 tab BID@1200,2200 NI Administration Diazepam 10 mg 08/07/17 22:00 08/07/17 21:33 Valium - PO 10 mg HS NI Administration Docusate Sodium 300 mg 08/07/17 22:00 08/07/17 21:33 Colace - PO 300 mg HS NI Administration Doxycycline Hyclate 100 mg 08/07/17 18:00 08/08/17 09:39 Vibramycin - PO 100 mg BID@1000,1800 NI Administration Enoxaparin Sodium 150 mg 08/07/17 18:00 08/08/17 06:05 Lovenox - SQ 150 mg BID@0600,1800 NI Administration Furosemide 80 mg 08/08/17 10:00 08/08/17 09:37 Lasix - PO 80 mg DAILY NI Administration Insulin Aspart 1 vial 08/07/17 11:00 08/08/17 11:57 Novolog Vial Sliding Scale - SQ 4 units ACHS NI Administration Protocol Lisinopril 20 mg 08/08/17 10:00 08/08/17 09:38 Prinivil PO 20 mg DAILY NI Administration Naproxen 500 mg 08/07/17 22:00 08/08/17 09:37 Naprosyn - PO 500 mg BID NI Administration Nystatin 1 applic 08/08/17 12:30 08/08/17 14:36 Nystop Powder - TP 1 applic DAILY NI Administration Ondansetron HCl 4 mg 08/07/17 10:05 Zofran Injection IVPUSH Q6H PRN NAUSEA AND/OR VOMITING Pantoprazole Sodium 40 mg 08/08/17 10:00 08/08/17 09:38 Protonix - PO 40 mg DAILY NI Administration Pregabalin 100 mg 08/07/17 14:00 08/08/17 14:36 Lyrica - PO 100 mg TID NI Administration Multivit/Folic Acid/Iron 1 tab 08/08/17 10:00 08/08/17 09:38 Vitamins (Sjr) - PO 1 tab DAILY [facility] Administration Quetiapine Fumarate 50 mg 08/07/17 22:00 08/07/17 21:31 Seroquel - PO 50 mg HS NI Administration Senna 2 tab 08/07/17 22:00 08/07/17 21:30 Senna - PO 2 tab HS NI Administration Thiamine HCl 100 mg 08/07/17 22:00 08/07/17 21:32 Vitamin B1 - PO 100 mg HS NI Administration Trazodone HCl 150 mg 08/07/17 22:00 08/07/17 21:32 Desyrel - PO 150 mg HS NI Administration ASSESSMENT/PLAN: Patient is a 47 year old female with a significant past medical history of hypertension, hyperlipidemia, CHF, DVTs with IVC filter, diabetes and polysubtance abuse (on home Suboxone). She presents to the ED on 08/01/2017 with a fall after falling on her driveway on an ice patch and twisting her left ankle. On 08/07/2017 her left malleolus fracture was reduced and casted. She is awaiting placement at a SNF facility, however patient is on Suboxone and has not received a bed offer at this time. Patient unable to go home as she has 3 flights of steps in her apartment with no elevator. She states she cannot stay with any one else while she recovers. Placement is currently pending. Skeletal: Left posterior and lateral malleolus fracture/dislocation, acute Left ankle closed reduction and casting on 08/07/2017 Pain control with Naprosysn 500mg BID Also on Suboxone 16mg for polysubstance abuse Monitor pain, avoid narcotics Psyche Polysubstance abuse history Calm, cooperative on exam On Suboxone maintenance dose as per psyche Valium 10mg @ hs On Seroquel 50mg @ hs Hematology: DVT history, chronic On Lovenox 150mg BID (currently 152.77kg) Vascular: Chronic leg ulcers Doxycycline to continue until 08/09/2016 Vascular consult pending F.E.N. Fluids: tolerating PO Electrolytes: monitor Nutrition: diabetic diet Prophylaxis: DVT: Lovenox BID GI: deferred Disposition: awaiting SNF placement. full code. Visit type - Emergency Visit Emergency Visit: Yes ED Registration Date: 08/01/17 Care time: The patient presented to the Emergency Department on the above date and was hospitalized for further evaluation of their emergent condition. - New Patient This patient is new to me today: No - Critical Care Critical Care patient: No - Discharge Referral Referred to [facility] Med P.C.: No
[2017-08-08] MEDS ORDERED: ALBUTEROL SO4 2.5/IPRATROPIUM 0.5 INH SOL 3 ML VIAL.NEB. NEB ONE ×2 (19:30→21:52)
--- NOTE | 2017-08-08 20:12 | HOSP ---
Subjective - Review of Symptoms Events since last encounter: Hospitalist Encounter Notified by Day Team that patient c/o HARPER, and was hypoxic. Arrived to bedside, patient is asleep but easily arousable and oriented. A 47 y/o woman with a PMHx of: hypertension, hyperlipidemia, CHF, DVTs with IVC filter, diabetes and polysubtance abuse (on home Suboxone). She presents to the ED on 08/01/2017 with a fall after falling on her driveway on an ice patch and twisting her left ankle. On 08/07/2017 her left malleolus fracture was reduced and casted. P Chest xray report- no acute pathology EKG- NSR no ST or TWI Trop I- < 0.02 Will order incentive spirometer Consider Vascular consult- paresthesia L- great toe lateral aspect Continue to elevate extremity Will continue to monitor Pulmonary: Yes: Dyspnea Physical Examination Vital Signs: Vital Signs Temperature 98.1 F 08/08/17 15:21 Pulse Rate 105 H 08/08/17 15:21 Respiratory Rate 18 08/08/17 09:22 Blood Pressure 154/87 08/08/17 15:21 O2 Sat by Pulse Oximetry (%) 92 L 08/08/17 18:27 Constitutional: Yes: Well Nourished, Obese Eyes: Yes: WNL, Conjunctiva Clear, PERRL HENT: Yes: WNL, Atraumatic, Normocephalic Neck: Yes: WNL, Supple, Trachea Midline Cardiovascular: Yes: Tachycardia, S1, S2 Respiratory: Yes: Diminished, On Nasal O2 (bases), SOB on Exertion Gastrointestinal: Yes: Normal Bowel Sounds, Soft, Abdomen, Obese ...Rectal Exam: Yes: Deferred Renal/: Yes: WNL Breast(s): Yes: WNL Extremities: Yes: Other (cast to LLE) Peripheral Pulses WNL: Yes Neurological: Yes: WNL, Alert, Oriented ...Motor Strength: WNL Psychiatric: Yes: WNL, Alert, Oriented Labs: CBC, BMP 08/08/17 06:30 08/08/17 06:30 Critical Care Total Critical Care Time (in minutes): 35 Critical Care Statement: The care of this patient involved high complexity decision making to prevent further life threatening deterioration of the patient 's condition and/or to evaluate & treat vital organ system(s) failure or risk of failure.
[2017-08-08] MEDS ORDERED: QUEtiapine FUMARATE 25 MG TABLET (FP) ONE (22:00)
[2017-08-08] MEDS: THIAMINE HCL 100 MG TABLET (FP) PO SCH (22:16)
[2017-08-08] MEDS: DOCUSATE SODIUM 100 MG CAPSULE (FP) PO SCH (22:16)
[2017-08-08] MEDS: SENNOSIDES 8.6MG TABLET (FP) PO SCH (22:17)
[2017-08-08] MEDS: diazePAM 5 MG TABLET PO SCH (22:17)
[2017-08-08] MEDS: QUEtiapine FUMARATE 50 MG TABLET PO SCH (22:17)
[2017-08-08] MEDS: traZODone HCL 50 MG TABLET (FP) PO SCH (22:18)
[2017-08-09] MEDS: ENOXAPARIN NA (PORCINE) 80 MG/0.8 ML DISP.SYRIN SQ SCH ×2 (06:00→17:51)
[2017-08-09] MEDS: PREGABALIN 50 MG CAPSULE PO SCH ×3 (06:00→21:16)
[2017-08-09] MEDS: INSULIN SLIDING SCALE (NOVOLOG) 1 VIAL SQ SCH ×4 (06:39→21:14)
[2017-08-09] MEDS ORDERED: INSULIN (NOVOLOG) ASPART 100 UNITS/ML 10ML VIAL ONE ×3 (07:28→21:03)
[2017-08-09] MEDS ORDERED: PT OWN MED DRAWER 7, Y5N ONE ×2 (09:33→17:42)
[2017-08-09] MEDS: PRENATAL VITAMINS W/ FOLIC ACID TABLET (FP) PO SCH (09:34)
[2017-08-09] MEDS: BUPRENORPHINE/NALOXONE 8 MG/2 MG FILM PACKET SL SCH ×2 (09:34→22:30)
[2017-08-09] MEDS: NAPROXEN 500 MG TABLET (FP) PO SCH (09:34)
[2017-08-09] MEDS: DOXYCYCLINE HYCLATE 100 MG CAPSULE PO SCH ×2 (09:34→17:52)
[2017-08-09] MEDS: LISINOPRIL 20 MG TABLET (FP) PO SCH (09:34)
[2017-08-09] MEDS: FUROSEMIDE 40 MG TABLET (FP) PO SCH ×2 (09:34→13:38)
[2017-08-09] MEDS: PANTOPRAZOLE 40 MG TABLET (FP) PO SCH (09:34)
[2017-08-09] MEDS: NYSTATIN POWDER 100,000 UNITS/GM - 15 GM TOPICAL POWDER TP SCH (09:35)
--- NOTE | 2017-08-09 10:32 | EKG ---
Test Reason : Blood Pressure : / mmHG Vent. Rate : 099 BPM Atrial Rate : 099 BPM P-R Int : 160 ms QRS Dur : 106 ms QT Int : 360 ms P-R-T Axes : 053 067 034 degrees QTc Int : 462 ms NORMAL SINUS RHYTHM NORMAL ECG WHEN COMPARED WITH ECG OF 04-MAR-2017 22:11, NO SIGNIFICANT CHANGE WAS FOUND Confirmed by RICHARD GARG MD ([id number]) on 08/09/2017 10:31:56 AM Referred By: Confirmed By:RICHARD GARG MD
[2017-08-09] MEDS: CALCIUM 500MG/VIT-D 200 UNITS COMBO TABLET (FP) PO SCH ×2 (11:44→21:15)
--- NOTE | 2017-08-09 15:05 | PN ---
Progress Note (short form) - Note Progress Note: Vascular surgery Pt seen and examined. Left leg in a cast. complains of occasional numbness in left great toe. Toe is warm to touch, with good motor and sensory. Cont present care. Can get ortho eval to make sure the cast is in place not causing the pt's symptoms. No need for vascular intervention at this time. Herbert yeung DO
--- NOTE | 2017-08-09 16:43 | PN ---
Physical Exam: SUBJECTIVE: Patient seen and examined. Noted getting oob to use toilet tired her out and now requires o2. Per RN cut herself shaving today OBJECTIVE: Vital Signs Period Temp Pulse Resp BP Sys/Puente Pulse Ox Last 24 Hr 97.4 F-98.8 F 86-104 20-20 113-144/62-80 92-98 PE Neuro: alert, awake, cn 2-12intact Pulm: CTA anteriorly CV: s1 s2 rrr Abd: obese s nt nd + bs Ext: LLE cast Laboratory Results - last 24 hr 08/08/17 08/08/17 08/08/17 06:30 16:47 21:40 Sodium 140 Potassium 4.1 Chloride 102 Carbon Dioxide 29 Anion Gap 9 BUN 19 H Creatinine 0.6 Creat Clearance w eGFR > 60 POC Glucometer 250 Random Glucose 145 H Calcium 8.9 Magnesium 1.7 L Total Bilirubin 0.5 AST 26 ALT 38 Alkaline Phosphatase 58 Troponin I < 0.02 < 0.02 Total Protein 6.3 L Albumin 2.8 L 08/08/17 08/09/17 08/09/17 22:14 05:35 11:46 Sodium Potassium Chloride Carbon Dioxide Anion Gap BUN Creatinine Creat Clearance w eGFR POC Glucometer 233 191 244 Random Glucose Calcium Magnesium Total Bilirubin AST ALT Alkaline Phosphatase Troponin I Total Protein Albumin Active Medications Generic Name Dose Route Start Last Admin Trade Name Shavon PRN Reason Stop Dose Admin Acetaminophen 650 mg 08/07/17 10:16 Tylenol - PO Q6H PRN PAIN LEVEL 1-5 Albuterol Sulfate 1 amp 08/09/17 16:01 Ventolin 0.083% Nebulizer Soln - NEB Q4H PRN SHORT OF BREATH/WHEEZING Buprenorphine/Naloxone 2 each 08/07/17 11:15 08/09/17 09:34 Suboxone 8mg/2mg Sl Film - SL 2 each BID NI Administration Calcium Carbonate/Cholecalciferol 1 tab 08/07/17 22:00 08/09/17 11:44 Os-Eros 500+D - PO 1 tab BID@1200,2200 NI Administration Diazepam 10 mg 08/07/17 22:00 08/08/17 22:17 Valium - PO 10 mg HS NI Administration Docusate Sodium 300 mg 08/07/17 22:00 08/08/17 22:16 Colace - PO 300 mg HS NI Administration Doxycycline Hyclate 100 mg 08/07/17 18:00 08/09/17 09:34 Vibramycin - PO 100 mg BID@1000,1800 NI Administration Enoxaparin Sodium 150 mg 08/07/17 18:00 08/09/17 06:00 Lovenox - SQ 150 mg BID@0600,1800 NI Administration Furosemide 80 mg 08/08/17 10:00 08/09/17 13:38 Lasix - PO 80 mg DAILY NI Administration Insulin Aspart 1 vial 08/07/17 11:00 08/09/17 11:51 Novolog Vial Sliding Scale - SQ 4 units ACHS NI Administration Protocol Lisinopril 20 mg 08/08/17 10:00 08/09/17 09:34 Prinivil PO 20 mg DAILY NI Administration Naproxen 500 mg 08/07/17 22:00 08/09/17 09:34 Naprosyn - PO 500 mg BID NI Administration Nystatin 1 applic 08/08/17 12:30 08/09/17 09:35 Nystop Powder - TP 1 applic DAILY NI Administration Ondansetron HCl 4 mg 08/07/17 10:05 Zofran Injection IVPUSH Q6H PRN NAUSEA AND/OR VOMITING Pantoprazole Sodium 40 mg 08/08/17 10:00 08/09/17 09:34 Protonix - PO 40 mg DAILY NI Administration Pregabalin 100 mg 08/07/17 14:00 08/09/17 13:38 Lyrica - PO 100 mg TID NI Administration Multivit/Folic Acid/Iron 1 tab 08/08/17 10:00 08/09/17 09:34 Vitamins (Sjr) - PO 1 tab DAILY NI Administration Quetiapine Fumarate 50 mg 08/07/17 22:00 08/08/17 22:17 Seroquel - PO 50 mg HS NI Administration Senna 2 tab 08/07/17 22:00 08/08/17 22:17 Senna - PO 2 tab HS NI Administration Thiamine HCl 100 mg 08/07/17 22:00 08/08/17 22:16 Vitamin B1 - PO 100 mg HS NI Administration Trazodone HCl 150 mg 08/07/17 22:00 08/08/17 22:18 Desyrel - PO 150 mg HS NI Administration Assessment: 47 year old female with a significant past medical history of hypertension, hyperlipidemia, CHF, DVTs with IVC filter, diabetes and polysubtance abuse (on home Suboxone) admitted s/p fall resulting in ankle fx Plan: 1. Left posterior and lateral malleolus fracture/dislocation - Left ankle closed reduction and casting on 08/07/2017 - Hold naproxen tonight due to bleeding from shaving cut - Ortho to return to see cast placement of pt 2. Polysubstance abuse history - Suboxone 16mg daily - Valium 10mg hs - Seroquel 50mg hs 3. DVT history - Lovenox 150mg BID (currently 152.77kg) 4. Chronic leg ulcers - Doxycycline last dose today 5. CHF - No evidence of exacerbation - Continue Lasix 6. HTN - Lisinopril 7. PPx DVT: Lovenox BID Visit type - Emergency Visit Emergency Visit: Yes ED Registration Date: 08/01/17 Care time: The patient presented to the Emergency Department on the above date and was hospitalized for further evaluation of their emergent condition. - New Patient This patient is new to me today: Yes Date on this admission: 08/09/17 - Critical Care Critical Care patient: No
--- NOTE | 2017-08-09 18:26 | PN ---
Progress Note (short form) - Note Progress Note: Pt s/p CR/casting Notes some numbness over great toe. States numb for a day or two. Cast does not feel tight. Overall comfortable. PE Last Vital Signs Temp Pulse Resp BP Pulse Ox 98.8 F 102 H 20 113/62 98 08/09/17 14:42 08/09/17 14:42 08/09/17 09:22 08/09/17 14:42 08/09/17 09:[address] Toes with cap refill/motion intact. Decreased sensation to light touch great toe, second toe. Normal toes 3-5. A/p: Right foot paresthesias -I reviewed today's findings with Traci -advised that her cap fill is ok suggesting circulation is working fine -her leg does not feel particularly tight indicating the cast is not too tight -advised her numbness is likely due to light pressure from the cast combined with pre-existing neuropathy -at this point I recommend elevating the limb -as swelling comes down there will be less pressure -can consider bivalve of cast if not improving in about 1 week but I am hesistant to do this so that we do not lose reduction and not sure it will help seeing as how the cast is not too tight as it is
[2017-08-09] MEDS ORDERED: QUEtiapine FUMARATE 25 MG TABLET (FP) ONE (21:03)
[2017-08-09] MEDS: QUEtiapine FUMARATE 50 MG TABLET PO SCH (21:15)
[2017-08-09] MEDS: DOCUSATE SODIUM 100 MG CAPSULE (FP) PO SCH (21:15)
[2017-08-09] MEDS: ACETAMINOPHEN 325 MG TABLET (FP) PO PRN (21:15)
[2017-08-09] MEDS: THIAMINE HCL 100 MG TABLET (FP) PO SCH (21:16)
[2017-08-09] MEDS: diazePAM 5 MG TABLET PO SCH (21:16)
[2017-08-09] MEDS: SENNOSIDES 8.6MG TABLET (FP) PO SCH (21:16)
[2017-08-09] MEDS: traZODone HCL 50 MG TABLET (FP) PO SCH (21:16)
[2017-08-10] MEDS: PREGABALIN 50 MG CAPSULE PO SCH ×3 (06:35→21:43)
[2017-08-10] MEDS: ENOXAPARIN NA (PORCINE) 80 MG/0.8 ML DISP.SYRIN SQ SCH ×2 (06:35→18:25)
[2017-08-10] MEDS: INSULIN SLIDING SCALE (NOVOLOG) 1 VIAL SQ SCH ×4 (06:43→21:42)
[2017-08-10 08:47] LABS: BASO % 0.8 % (0-2.0); EOS % 5.3 % (0-4.5); HEMATOCRIT 38.9 % (32.4-45.2); HEMOGLOBIN 12.5 GM/dL (10.7-15.3); LYMPH % 23.9 % (8-40); MCH 27.7 pg (25.7-33.7); MCHC 32.1 g/dl (32.0-36.0); MEAN CELL VOLUME 86.4 fl (80-96); MEAN PLT VOLUME 8.1 fl (7.5-11.1); MONO % 9.4 % (3.8-10.2); NEUT % 60.6 % (42.8-82.8); PLATELET COUNT 285 K/MM3 (134-434); RDW 14.3 % (11.6-15.6); WHITE BLOOD COUNT 6.2 K/mm3 (4.0-10.0)
[2017-08-10 09:35] LABS: ANION GAP 6 (8-16); BLOOD UREA NITROGEN 23 mg/dL (7-18); CALCIUM 8.9 mg/dL (8.5-10.1); CHLORIDE 103 mmol/L (98-107); CO2 32 mmol/L (21-32); CREATININE 0.7 mg/dL (0.55-1.02); GLUCOSE,RANDOM 126 mg/dL (74-106); POTASSIUM 4.2 mmol/L (3.5-5.1); SODIUM 141 mmol/L (136-145)
--- NOTE | 2017-08-10 10:43 | PN ---
Progress Note (short form) - Note Progress Note: Subjective: The patient was seen and examined, she has no complaints at this time Will reconsult detox to discuss with patient switching from Suboxone to Methadone Current Medications Generic Name Dose Route Start Last Admin Trade Name Frealbino PRN Reason Stop Dose Admin Acetaminophen 650 mg 08/07/17 10:16 08/09/17 21:15 Tylenol - PO 650 mg Q6H PRN Administration PAIN LEVEL 1-5 Albuterol Sulfate 1 amp 08/09/17 16:01 Ventolin 0.083% Nebulizer Soln - NEB Q4H PRN SHORT OF BREATH/WHEEZING Buprenorphine/Naloxone 2 each 08/07/17 11:15 08/09/17 22:30 Suboxone 8mg/2mg Sl Film - SL 2 each BID NI Administration Calcium Carbonate/Cholecalciferol 1 tab 08/07/17 22:00 08/09/17 21:15 Os-Eros 500+D - PO 1 tab BID@1200,2200 NI Administration Diazepam 10 mg 08/07/17 22:00 08/09/17 21:16 Valium - PO 10 mg HS NI Administration Docusate Sodium 300 mg 08/07/17 22:00 08/09/17 21:15 Colace - PO 300 mg HS NI Administration Doxycycline Hyclate 100 mg 08/07/17 18:00 08/09/17 17:52 Vibramycin - PO 100 mg BID@1000,1800 NI Administration Enoxaparin Sodium 150 mg 08/07/17 18:00 08/10/17 06:35 Lovenox - SQ 150 mg BID@0600,1800 NI Administration Furosemide 80 mg 08/08/17 10:00 08/09/17 13:38 Lasix - PO 80 mg DAILY NI Administration Insulin Aspart 1 vial 08/07/17 11:00 08/10/17 06:43 Novolog Vial Sliding Scale - SQ Not Given ACHS NI Protocol Lisinopril 20 mg 08/08/17 10:00 08/09/17 09:34 Prinivil PO 20 mg DAILY NI Administration Naproxen 500 mg 08/07/17 22:00 08/09/17 09:34 Naprosyn - PO 500 mg BID NI Administration Nystatin 1 applic 08/08/17 12:30 08/09/17 09:35 Nystop Powder - TP 1 applic DAILY NI Administration Ondansetron HCl 4 mg 08/07/17 10:05 Zofran Injection IVPUSH Q6H PRN NAUSEA AND/OR VOMITING Pantoprazole Sodium 40 mg 08/08/17 10:00 08/09/17 09:34 Protonix - PO 40 mg DAILY NI Administration Pregabalin 100 mg 08/07/17 14:00 08/10/17 06:35 Lyrica - PO 100 mg TID NI Administration Multivit/Folic Acid/Iron 1 tab 08/08/17 10:00 08/09/17 09:34 Vitamins (Sjr) - PO 1 tab DAILY NI Administration Quetiapine Fumarate 50 mg 08/07/17 22:00 08/09/17 21:15 Seroquel - PO 50 mg HS NI Administration Senna 2 tab 08/07/17 22:00 08/09/17 21:16 Senna - PO 2 tab HS NI Administration Thiamine HCl 100 mg 08/07/17 22:00 08/09/17 21:16 Vitamin B1 - PO 100 mg HS NI Administration Trazodone HCl 150 mg 08/07/17 22:00 08/09/17 21:16 Desyrel - PO 150 mg HS NI Administration Objective: Vital Signs Period Temp Pulse Resp BP Sys/Puente Pulse Ox Last 24 Hr 97.9 F-98.8 F 92-110 18-20 113-134/62-88 98 Physical Exam: General: NAD, A&Ox3, morbidly obese Lungs: CTA bilaterally Heart: RRR, S1S2 Abd: Soft, non-tender, non-distended. Normoactive bowel sounds Ext: Left lower extremity splint in place CBCD WBC 6.2 K/mm3 (4.0-10.0) 08/10/17 08:00 RBC 4.50 M/mm3 (3.60-5.2) 08/10/17 08:00 Hgb 12.5 GM/dL (10.7-15.3) D 08/10/17 08:00 Hct 38.9 % (32.4-45.2) D 08/10/17 08:00 MCV 86.4 fl (80-96) 08/10/17 08:00 MCHC 32.1 g/dl (32.0-36.0) 08/10/17 08:00 RDW 14.3 % (11.6-15.6) 08/10/17 08:00 Plt Count 285 K/MM3 (134-434) 08/10/17 08:00 MPV 8.1 fl (7.5-11.1) 08/10/17 08:00 CMP Sodium 141 mmol/L (136-145) 08/10/17 08:00 Potassium 4.2 mmol/L (3.5-5.1) 08/10/17 08:00 Chloride 103 mmol/L (98-107) 08/10/17 08:00 Carbon Dioxide 32 mmol/L (21-32) 08/10/17 08:00 Anion Gap 6 (8-16) L 08/10/17 08:00 BUN 23 mg/dL (7-18) H 08/10/17 08:00 Creatinine 0.7 mg/dL (0.55-1.02) 08/10/17 08:00 Creat Clearance w eGFR > 60 (>60) 08/08/17 06:30 Random Glucose 126 mg/dL (74-106) H 08/10/17 08:00 Calcium 8.9 mg/dL (8.5-10.1) 08/10/17 08:00 Total Bilirubin 0.5 mg/dL (0.2-1.0) 08/08/17 06:30 AST 26 U/L (15-37) 08/08/17 06:30 ALT 38 U/L (12-78) 08/08/17 06:30 Alkaline Phosphatase 58 U/L (45-117) 08/08/17 06:30 Total Protein 6.3 g/dl (6.4-8.2) L 08/08/17 06:30 Albumin 2.8 g/dl (3.4-5.0) L 08/08/17 06:30 CARDIAC ENZYMES Troponin I < 0.02 ng/ml (0.00-0.05) 08/08/17 21:40 Assessment: This is a 47 year old female with PMHx of HTN, hyperlipidemia, CHF , DVT s/p IVC filter, NIDDM, chronic leg ulcers, left big toe wound, polysubstance abuse, who presented to the ED after slipping on the [employer] driveway and twisting her left ankle. Plan: 1) Left posterior and lateral malleolus fracture/dislocation - S/p reduction in the ED - Splint in place - Ambulating now with walker - Pain control with Naprosyn only per detox, will not continue on discharge - Appreciate ortho consult 2) Polysubstance abuse - Continue Suboxone, increased 08/03 - Valium prn - Trazodone 150mg po hs 3) Hx of DVT - S/p IVC filter - Lovenox 150mg sq bid (failed out patient xarelto?) 4) Chronic leg ulcers - Left great toe wound - Doxycycline (07/27-08/09). Complete total 14 days - Appreciate Dr. Knox consult 5) NIDDM - BGM ACHS - ISS ACHS 6) CHF - No evidence of exacerbation - Continue Lasix 7) F/E/N: - Diabetic/sodium controlled diet - Monitor electrolytes 8) Prophylaxis: - PT - On Lovenox 9) Dispo: - Awaiting SNF placement - To discuss possibly switching to Methadone today with detox CODE STATUS: FULL CODE Visit type - Emergency Visit Emergency Visit: Yes ED Registration Date: 08/01/17 Care time: The patient presented to the Emergency Department on the above date and was hospitalized for further evaluation of their emergent condition. - New Patient This patient is new to me today: No - Critical Care Critical Care patient: No
[2017-08-10] MEDS ORDERED: PT OWN MED DRAWER 7, Y5N ONE ×2 (10:59→21:38)
[2017-08-10] MEDS ORDERED: INSULIN (NOVOLOG) ASPART 100 UNITS/ML 10ML VIAL ONE ×2 (11:00→21:37)
[2017-08-10] MEDS: PANTOPRAZOLE 40 MG TABLET (FP) PO SCH (11:02)
[2017-08-10] MEDS: FUROSEMIDE 40 MG TABLET (FP) PO SCH (11:02)
[2017-08-10] MEDS: PRENATAL VITAMINS W/ FOLIC ACID TABLET (FP) PO SCH (11:02)
[2017-08-10] MEDS: CALCIUM 500MG/VIT-D 200 UNITS COMBO TABLET (FP) PO SCH ×2 (11:02→21:44)
[2017-08-10] MEDS: BUPRENORPHINE/NALOXONE 8 MG/2 MG FILM PACKET SL SCH ×2 (11:02→21:44)
[2017-08-10] MEDS: LISINOPRIL 20 MG TABLET (FP) PO SCH (11:02)
[2017-08-10] MEDS: NYSTATIN POWDER 100,000 UNITS/GM - 15 GM TOPICAL POWDER TP SCH (11:06)
[2017-08-10] MEDS: DOXYCYCLINE HYCLATE 100 MG CAPSULE PO SCH (11:13)
--- NOTE | 2017-08-10 17:10 | PN ---
[facility] Progress Note (SOAP) Subjective: patient does not want to switch to methadone - either for pain management or the treatment of opioid use disorder, stable on current dose of suboxone Objective: 08/10/17 17:08 Vital Signs - 24 hr 08/09/17 08/09/17 08/10/17 21:00 21:15 06:00 Temperature 98.4 F 98.3 F Pulse Rate 92 H 92 H Respiratory 20 20 20 Rate Blood Pressure 115/79 134/88 O2 Sat by Pulse 98 Oximetry (%) 08/10/17 08/10/17 08/10/17 08:00 09:00 14:43 Temperature 97.9 F 98.2 F Pulse Rate 110 H 104 H Respiratory 18 Rate Blood Pressure 130/78 131/76 O2 Sat by Pulse 97 Oximetry (%) Abnormal Lab Results 08/10/17 08/10/17 08:00 08:00 Eosinophils % 5.3 H Anion Gap 6 L BUN 23 H Random Glucose 126 H a and o x3 Assessment: 08/10/17 17:09 opioid use disorder with pain 2/2 fracture s/p surgery - would like to go to assisted on suboxone but unable to find anywhere willing to accept suboxoen even if a prescription is written and the patient brings own medication with refills. callled [facility] in an attempt to find a assisted able to accept patient. will follow up.
[2017-08-10] MEDS ORDERED: QUEtiapine FUMARATE 25 MG TABLET (FP) ONE (21:37)
[2017-08-10] MEDS: THIAMINE HCL 100 MG TABLET (FP) PO SCH (21:43)
[2017-08-10] MEDS: traZODone HCL 50 MG TABLET (FP) PO SCH (21:43)
[2017-08-10] MEDS: DOCUSATE SODIUM 100 MG CAPSULE (FP) PO SCH (21:43)
[2017-08-10] MEDS: SENNOSIDES 8.6MG TABLET (FP) PO SCH (21:43)
[2017-08-10] MEDS: diazePAM 5 MG TABLET PO SCH (21:43)
[2017-08-10] MEDS: QUEtiapine FUMARATE 50 MG TABLET PO SCH (21:44)
[2017-08-11] MEDS: ALBUTEROL SO4 0.083% IH SOL 2.5 MG/3 ML VIAL.NEB. NEB PRN ×3 (00:34→23:29)
[2017-08-11] MEDS: PREGABALIN 50 MG CAPSULE PO SCH ×3 (06:40→21:49)
[2017-08-11] MEDS: ENOXAPARIN NA (PORCINE) 80 MG/0.8 ML DISP.SYRIN SQ SCH ×2 (06:40→17:45)
[2017-08-11] MEDS: INSULIN SLIDING SCALE (NOVOLOG) 1 VIAL SQ SCH ×4 (06:44→21:51)
[2017-08-11] MEDS: FUROSEMIDE 40 MG TABLET (FP) PO SCH (09:29)
[2017-08-11] MEDS: PANTOPRAZOLE 40 MG TABLET (FP) PO SCH (09:29)
[2017-08-11] MEDS: LISINOPRIL 20 MG TABLET (FP) PO SCH (09:29)
[2017-08-11] MEDS: BUPRENORPHINE/NALOXONE 8 MG/2 MG FILM PACKET SL SCH ×2 (09:30→21:50)
[2017-08-11] MEDS: PRENATAL VITAMINS W/ FOLIC ACID TABLET (FP) PO SCH (09:32)
[2017-08-11] MEDS: NAPROXEN 500 MG TABLET (FP) PO SCH ×2 (09:33→21:44)
[2017-08-11] MEDS: NYSTATIN POWDER 100,000 UNITS/GM - 15 GM TOPICAL POWDER TP SCH (09:34)
--- NOTE | 2017-08-11 10:08 | PN ---
Progress Note (short form) - Note Progress Note: Subjective: The patient was seen and examined, she has no complaints at this time She does not want to switch to Methadone, detox note appreciated Current Medications Generic Name Dose Route Start Last Admin Trade Name Freq PRN Reason Stop Dose Admin Acetaminophen 650 mg 08/07/17 10:16 08/09/17 21:15 Tylenol - PO 650 mg Q6H PRN Administration PAIN LEVEL 1-5 Albuterol Sulfate 1 amp 08/09/17 16:01 08/11/17 00:34 Ventolin 0.083% Nebulizer Soln - NEB 1 amp Q4H PRN Administration SHORT OF BREATH/WHEEZING Buprenorphine/Naloxone 2 each 08/07/17 11:15 08/11/17 09:30 Suboxone 8mg/2mg Sl Film - SL 2 each BID NI Administration Calcium Carbonate/Cholecalciferol 1 tab 08/07/17 22:00 08/10/17 21:44 Os-Eros 500+D - PO 1 tab BID@1200,2200 NI Administration Diazepam 10 mg 08/07/17 22:00 08/10/17 21:43 Valium - PO 10 mg HS NI Administration Docusate Sodium 300 mg 08/07/17 22:00 08/10/17 21:43 Colace - PO 300 mg HS NI Administration Enoxaparin Sodium 150 mg 08/07/17 18:00 08/11/17 06:40 Lovenox - SQ 150 mg BID@0600,1800 NI Administration Furosemide 80 mg 08/08/17 10:00 08/11/17 09:29 Lasix - PO 80 mg DAILY NI Administration Insulin Aspart 1 vial 08/07/17 11:00 08/11/17 06:44 Novolog Vial Sliding Scale - SQ 2 units ACHS NI Administration Protocol Lisinopril 20 mg 08/08/17 10:00 08/11/17 09:29 Prinivil PO 20 mg DAILY NI Administration Naproxen 500 mg 08/07/17 22:00 08/11/17 09:33 Naprosyn - PO 500 mg BID NI Administration Nystatin 1 applic 08/08/17 12:30 08/11/17 09:34 Nystop Powder - TP 1 applic DAILY NI Administration Ondansetron HCl 4 mg 08/07/17 10:05 Zofran Injection IVPUSH Q6H PRN NAUSEA AND/OR VOMITING Pantoprazole Sodium 40 mg 08/08/17 10:00 08/11/17 09:29 Protonix - PO 40 mg DAILY NI Administration Pregabalin 100 mg 08/07/17 14:00 08/11/17 06:40 Lyrica - PO 100 mg TID NI Administration Multivit/Folic Acid/Iron 1 tab 08/08/17 10:00 08/11/17 09:32 Vitamins (Sjr) - PO 1 tab DAILY NI Administration Quetiapine Fumarate 50 mg 08/07/17 22:00 08/10/17 21:44 Seroquel - PO 50 mg HS NI Administration Senna 2 tab 08/07/17 22:00 08/10/17 21:43 Senna - PO 2 tab HS NI Administration Thiamine HCl 100 mg 08/07/17 22:00 08/10/17 21:43 Vitamin B1 - PO 100 mg HS NI Administration Trazodone HCl 150 mg 08/07/17 22:00 08/10/17 21:43 Desyrel - PO 150 mg HS NI Administration Objective: Vital Signs Period Temp Pulse Resp BP Sys/Puente Pulse Ox Last 24 Hr 98.2 F-98.8 F 90-104 20-22 92-137/59-82 97 Physical Exam: General: NAD, A&Ox3, morbidly obese Lungs: CTA bilaterally Heart: RRR, S1S2 Abd: Soft, non-tender, non-distended. Normoactive bowel sounds Ext: Left lower extremity splint in place CBCD WBC 6.2 K/mm3 (4.0-10.0) 08/10/17 08:00 RBC 4.50 M/mm3 (3.60-5.2) 08/10/17 08:00 Hgb 12.5 GM/dL (10.7-15.3) D 08/10/17 08:00 Hct 38.9 % (32.4-45.2) D 08/10/17 08:00 MCV 86.4 fl (80-96) 08/10/17 08:00 MCHC 32.1 g/dl (32.0-36.0) 08/10/17 08:00 RDW 14.3 % (11.6-15.6) 08/10/17 08:00 Plt Count 285 K/MM3 (134-434) 08/10/17 08:00 MPV 8.1 fl (7.5-11.1) 08/10/17 08:00 CMP Sodium 141 mmol/L (136-145) 08/10/17 08:00 Potassium 4.2 mmol/L (3.5-5.1) 08/10/17 08:00 Chloride 103 mmol/L (98-107) 08/10/17 08:00 Carbon Dioxide 32 mmol/L (21-32) 08/10/17 08:00 Anion Gap 6 (8-16) L 08/10/17 08:00 BUN 23 mg/dL (7-18) H 08/10/17 08:00 Creatinine 0.7 mg/dL (0.55-1.02) 08/10/17 08:00 Creat Clearance w eGFR > 60 (>60) 08/08/17 06:30 Random Glucose 126 mg/dL (74-106) H 08/10/17 08:00 Calcium 8.9 mg/dL (8.5-10.1) 08/10/17 08:00 Total Bilirubin 0.5 mg/dL (0.2-1.0) 08/08/17 06:30 AST 26 U/L (15-37) 08/08/17 06:30 ALT 38 U/L (12-78) 08/08/17 06:30 Alkaline Phosphatase 58 U/L (45-117) 08/08/17 06:30 Total Protein 6.3 g/dl (6.4-8.2) L 08/08/17 06:30 Albumin 2.8 g/dl (3.4-5.0) L 08/08/17 06:30 CARDIAC ENZYMES Troponin I < 0.02 ng/ml (0.00-0.05) 08/08/17 21:40 Assessment: This is a 47 year old female with PMHx of HTN, hyperlipidemia, CHF , DVT s/p IVC filter, NIDDM, chronic leg ulcers, left big toe wound, polysubstance abuse, who presented to the ED after slipping on the [employer] driveway and twisting her left ankle. Plan: 1) Left posterior and lateral malleolus fracture/dislocation - S/p reduction in the ED - Splint in place - Ambulating now with walker - Pain control with Naprosyn only per detox, will not continue on discharge - Appreciate ortho consult 2) Polysubstance abuse - Continue Suboxone, increased 08/03 - Valium prn - Trazodone 150mg po hs 3) Hx of DVT - S/p IVC filter - Lovenox 150mg sq bid (failed out patient xarelto?) 4) Chronic leg ulcers - Left great toe wound - Doxycycline (07/27-08/09). Complete total 14 days - Appreciate Dr. Knox consult 5) NIDDM - BGM ACHS - ISS ACHS 6) CHF - No evidence of exacerbation - Continue Lasix 7) F/E/N: - Diabetic/sodium controlled diet - Monitor electrolytes 8) Prophylaxis: - PT - On Lovenox 9) Dispo: - Awaiting SNF placement CODE STATUS: FULL CODE Visit type - Emergency Visit Emergency Visit: Yes ED Registration Date: 08/01/17 Care time: The patient presented to the Emergency Department on the above date and was hospitalized for further evaluation of their emergent condition. - New Patient This patient is new to me today: No - Critical Care Critical Care patient: No
[2017-08-11] MEDS: CALCIUM 500MG/VIT-D 200 UNITS COMBO TABLET (FP) PO SCH ×2 (11:22→21:45)
[2017-08-11] MEDS ORDERED: INSULIN (NOVOLOG) ASPART 100 UNITS/ML 10ML VIAL ONE ×2 (16:17→21:40)
[2017-08-11] MEDS ORDERED: QUEtiapine FUMARATE 25 MG TABLET (FP) ONE (21:38)
[2017-08-11] MEDS: SENNOSIDES 8.6MG TABLET (FP) PO SCH (21:44)
[2017-08-11] MEDS: QUEtiapine FUMARATE 50 MG TABLET PO SCH (21:46)
[2017-08-11] MEDS: DOCUSATE SODIUM 100 MG CAPSULE (FP) PO SCH (21:47)
[2017-08-11] MEDS: diazePAM 5 MG TABLET PO SCH (21:47)
[2017-08-11] MEDS: traZODone HCL 50 MG TABLET (FP) PO SCH (21:47)
[2017-08-11] MEDS: THIAMINE HCL 100 MG TABLET (FP) PO SCH (21:48)
[2017-08-12] MEDS: PREGABALIN 50 MG CAPSULE PO SCH ×3 (06:14→21:22)
[2017-08-12] MEDS: metFORMIN HCL 500 MG TABLET (FP) PO SCH (06:14)
[2017-08-12] MEDS: ENOXAPARIN NA (PORCINE) 80 MG/0.8 ML DISP.SYRIN SQ SCH ×2 (06:14→17:58)
[2017-08-12] MEDS: INSULIN SLIDING SCALE (NOVOLOG) 1 VIAL SQ SCH ×4 (06:15→21:33)
[2017-08-12] MEDS ORDERED: INSULIN (NOVOLOG) ASPART 100 UNITS/ML 10ML VIAL ONE ×2 (06:24→11:09)
[2017-08-12] MEDS ORDERED: PT OWN MED DRAWER 7, Y5N ONE ×2 (09:29→11:09)
[2017-08-12] MEDS: LISINOPRIL 20 MG TABLET (FP) PO SCH (09:40)
[2017-08-12] MEDS: PRENATAL VITAMINS W/ FOLIC ACID TABLET (FP) PO SCH (09:40)
[2017-08-12] MEDS: NAPROXEN 500 MG TABLET (FP) PO SCH ×2 (09:40→21:25)
[2017-08-12] MEDS: PANTOPRAZOLE 40 MG TABLET (FP) PO SCH (09:40)
[2017-08-12] MEDS: NYSTATIN POWDER 100,000 UNITS/GM - 15 GM TOPICAL POWDER TP SCH (09:40)
[2017-08-12] MEDS: FUROSEMIDE 40 MG TABLET (FP) PO SCH (09:40)
[2017-08-12] MEDS: BUPRENORPHINE/NALOXONE 8 MG/2 MG FILM PACKET SL SCH ×2 (09:41→21:23)
[2017-08-12] MEDS: CALCIUM 500MG/VIT-D 200 UNITS COMBO TABLET (FP) PO SCH ×2 (11:19→21:22)
--- NOTE | 2017-08-12 11:54 | PN ---
Progress Note (short form) - Note Progress Note: Subjective: The patient was seen and examined, she has no complaints at this time Current Medications Generic Name Dose Route Start Last Admin Trade Name Freq PRN Reason Stop Dose Admin Acetaminophen 650 mg 08/07/17 10:16 08/09/17 21:15 Tylenol - PO 650 mg Q6H PRN Administration PAIN LEVEL 1-5 Albuterol Sulfate 1 amp 08/09/17 16:01 08/11/17 23:29 Ventolin 0.083% Nebulizer Soln - NEB 1 amp Q4H PRN Administration SHORT OF BREATH/WHEEZING Buprenorphine/Naloxone 2 each 08/07/17 11:15 08/12/17 09:41 Suboxone 8mg/2mg Sl Film - SL 2 each BID NI Administration Calcium Carbonate/Cholecalciferol 1 tab 08/07/17 22:00 08/12/17 11:19 Os-Eros 500+D - PO 1 tab BID@1200,2200 NI Administration Diazepam 10 mg 08/07/17 22:00 08/11/17 21:47 Valium - PO 10 mg HS NI Administration Docusate Sodium 300 mg 08/07/17 22:00 08/11/17 21:47 Colace - PO 300 mg HS NI Administration Enoxaparin Sodium 150 mg 08/07/17 18:00 08/12/17 06:14 Lovenox - SQ 150 mg BID@0600,1800 NI Administration Furosemide 80 mg 08/08/17 10:00 08/12/17 09:40 Lasix - PO 80 mg DAILY NI Administration Insulin Aspart 1 vial 08/07/17 11:00 08/12/17 11:19 Novolog Vial Sliding Scale - SQ 4 units ACHS NI Administration Protocol Lisinopril 20 mg 08/08/17 10:00 08/12/17 09:40 Prinivil PO 20 mg DAILY NI Administration Metformin HCl 500 mg 08/12/17 07:00 08/12/17 06:14 Glucophage - PO 500 mg DAILY@0700 NI Administration Naproxen 500 mg 08/07/17 22:00 08/12/17 09:40 Naprosyn - PO 500 mg BID NI Administration Nystatin 1 applic 08/08/17 12:30 08/12/17 09:40 Nystop Powder - TP 1 applic DAILY NI Administration Ondansetron HCl 4 mg 08/07/17 10:05 Zofran Injection IVPUSH Q6H PRN NAUSEA AND/OR VOMITING Pantoprazole Sodium 40 mg 08/08/17 10:00 08/12/17 09:40 Protonix - PO 40 mg DAILY NI Administration Pregabalin 100 mg 08/07/17 14:00 08/12/17 06:14 Lyrica - PO 100 mg TID NI Administration Multivit/Folic Acid/Iron 1 tab 08/08/17 10:00 08/12/17 09:40 Vitamins (Sjr) - PO 1 tab DAILY NI Administration Quetiapine Fumarate 50 mg 08/07/17 22:00 08/11/17 21:46 Seroquel - PO 50 mg HS NI Administration Senna 2 tab 08/07/17 22:00 08/11/17 21:44 Senna - PO 2 tab HS NI Administration Thiamine HCl 100 mg 08/07/17 22:00 08/11/17 21:48 Vitamin B1 - PO 100 mg HS NI Administration Trazodone HCl 150 mg 08/07/17 22:00 08/11/17 21:47 Desyrel - PO 150 mg HS NI Administration Objective: Vital Signs Period Temp Pulse Resp BP Sys/Puente Pulse Ox Last 24 Hr 98.1 F-99.3 F 94-104 18-20 106-130/48-81 94-94 Physical Exam: General: NAD, A&Ox3, morbidly obese Lungs: CTA bilaterally Heart: RRR, S1S2 Abd: Soft, non-tender, non-distended. Normoactive bowel sounds Ext: Left lower extremity splint in place CBCD WBC 6.2 K/mm3 (4.0-10.0) 08/10/17 08:00 RBC 4.50 M/mm3 (3.60-5.2) 08/10/17 08:00 Hgb 12.5 GM/dL (10.7-15.3) D 08/10/17 08:00 Hct 38.9 % (32.4-45.2) D 08/10/17 08:00 MCV 86.4 fl (80-96) 08/10/17 08:00 MCHC 32.1 g/dl (32.0-36.0) 08/10/17 08:00 RDW 14.3 % (11.6-15.6) 08/10/17 08:00 Plt Count 285 K/MM3 (134-434) 08/10/17 08:00 MPV 8.1 fl (7.5-11.1) 08/10/17 08:00 CMP Sodium 141 mmol/L (136-145) 08/10/17 08:00 Potassium 4.2 mmol/L (3.5-5.1) 08/10/17 08:00 Chloride 103 mmol/L (98-107) 08/10/17 08:00 Carbon Dioxide 32 mmol/L (21-32) 08/10/17 08:00 Anion Gap 6 (8-16) L 08/10/17 08:00 BUN 23 mg/dL (7-18) H 08/10/17 08:00 Creatinine 0.7 mg/dL (0.55-1.02) 08/10/17 08:00 Creat Clearance w eGFR > 60 (>60) 08/08/17 06:30 Random Glucose 126 mg/dL (74-106) H 08/10/17 08:00 Calcium 8.9 mg/dL (8.5-10.1) 08/10/17 08:00 Total Bilirubin 0.5 mg/dL (0.2-1.0) 08/08/17 06:30 AST 26 U/L (15-37) 08/08/17 06:30 ALT 38 U/L (12-78) 08/08/17 06:30 Alkaline Phosphatase 58 U/L (45-117) 08/08/17 06:30 Total Protein 6.3 g/dl (6.4-8.2) L 08/08/17 06:30 Albumin 2.8 g/dl (3.4-5.0) L 08/08/17 06:30 CARDIAC ENZYMES Troponin I < 0.02 ng/ml (0.00-0.05) 08/08/17 21:40 Assessment: This is a 47 year old female with PMHx of HTN, hyperlipidemia, CHF , DVT s/p IVC filter, NIDDM, chronic leg ulcers, left big toe wound, polysubstance abuse, who presented to the ED after slipping on the [employer] driveway and twisting her left ankle. Plan: 1) Left posterior and lateral malleolus fracture/dislocation - S/p reduction in the ED - Splint in place - Ambulating now with walker - Pain control with Naprosyn only per detox, will not continue on discharge - Appreciate ortho consult 2) Polysubstance abuse - Continue Suboxone, increased 08/03 - Valium prn - Trazodone 150mg po hs 3) Hx of DVT - S/p IVC filter - Lovenox 150mg sq bid (failed out patient xarelto?) 4) Chronic leg ulcers - Left great toe wound - Doxycycline (07/27-08/09). Complete total 14 days - Appreciate Dr. Knox consult 5) NIDDM - BGM ACHS - ISS ACHS 6) CHF - No evidence of exacerbation - Continue Lasix 7) F/E/N: - Diabetic/sodium controlled diet - Monitor electrolytes 8) Prophylaxis: - PT - On Lovenox 9) Dispo: - Awaiting SNF placement CODE STATUS: FULL CODE Visit type - Emergency Visit Emergency Visit: Yes ED Registration Date: 08/01/17 Care time: The patient presented to the Emergency Department on the above date and was hospitalized for further evaluation of their emergent condition. - New Patient This patient is new to me today: No - Critical Care Critical Care patient: No
[2017-08-12] MEDS: BACITRACIN 15 GM TUBE TOPICAL OINTMENT TP SCH (15:34)
[2017-08-12] MEDS: ALBUTEROL SO4 0.083% IH SOL 2.5 MG/3 ML VIAL.NEB. NEB PRN (16:49)
[2017-08-12] MEDS ORDERED: QUEtiapine FUMARATE 25 MG TABLET (FP) ONE (21:08)
[2017-08-12] MEDS: SENNOSIDES 8.6MG TABLET (FP) PO SCH (21:21)
[2017-08-12] MEDS: diazePAM 5 MG TABLET PO SCH (21:22)
[2017-08-12] MEDS: traZODone HCL 50 MG TABLET (FP) PO SCH (21:22)
[2017-08-12] MEDS: THIAMINE HCL 100 MG TABLET (FP) PO SCH (21:22)
[2017-08-12] MEDS: DOCUSATE SODIUM 100 MG CAPSULE (FP) PO SCH (21:22)
[2017-08-12] MEDS: QUEtiapine FUMARATE 50 MG TABLET PO SCH (21:25)
[2017-08-13] MEDS ORDERED: PT OWN MED DRAWER 7, Y5N ONE ×7 (05:09→21:31)
[2017-08-13] MEDS: metFORMIN HCL 500 MG TABLET (FP) PO SCH (06:27)
[2017-08-13] MEDS: PREGABALIN 50 MG CAPSULE PO SCH ×3 (06:27→21:38)
[2017-08-13] MEDS: INSULIN SLIDING SCALE (NOVOLOG) 1 VIAL SQ SCH ×4 (06:29→21:39)
[2017-08-13] MEDS: ENOXAPARIN NA (PORCINE) 80 MG/0.8 ML DISP.SYRIN SQ SCH ×2 (06:44→18:01)
[2017-08-13] MEDS ORDERED: INSULIN (NOVOLOG) ASPART 100 UNITS/ML 10ML VIAL ONE ×2 (06:52→11:55)
[2017-08-13] MEDS: BACITRACIN 15 GM TUBE TOPICAL OINTMENT TP SCH (09:57)
[2017-08-13] MEDS: FUROSEMIDE 40 MG TABLET (FP) PO SCH (09:57)
[2017-08-13] MEDS: NAPROXEN 500 MG TABLET (FP) PO SCH ×2 (10:00→21:38)
[2017-08-13] MEDS: NYSTATIN POWDER 100,000 UNITS/GM - 15 GM TOPICAL POWDER TP SCH (10:00)
[2017-08-13] MEDS: PRENATAL VITAMINS W/ FOLIC ACID TABLET (FP) PO SCH (10:01)
[2017-08-13] MEDS: PANTOPRAZOLE 40 MG TABLET (FP) PO SCH (10:01)
[2017-08-13] MEDS: BUPRENORPHINE/NALOXONE 8 MG/2 MG FILM PACKET SL SCH ×2 (10:01→21:38)
[2017-08-13] MEDS: LISINOPRIL 20 MG TABLET (FP) PO SCH (10:01)
--- NOTE | 2017-08-13 10:51 | PN ---
[facility] Progress Note (SOAP) Subjective: patient still wants to remain on suboxone Objective: 08/13/17 10:49 Vital Signs - 24 hr 08/12/17 08/12/17 08/12/17 14:52 18:00 20:34 Temperature 99.0 F 97.8 F Pulse Rate 104 H 105 H Respiratory 20 18 Rate Blood Pressure 127/72 117/58 O2 Sat by Pulse 95 Oximetry (%) 08/13/17 05:21 Temperature 97.7 F Pulse Rate 93 H Respiratory 20 Rate Blood Pressure 110/60 O2 Sat by Pulse Oximetry (%) Vital Signs - 24 hr 08/12/17 08/12/17 08/12/17 14:52 18:00 20:34 Temperature 99.0 F 97.8 F Pulse Rate 104 H 105 H Respiratory 20 18 Rate Blood Pressure 127/72 117/58 O2 Sat by Pulse 95 Oximetry (%) 08/13/17 05:21 Temperature 97.7 F Pulse Rate 93 H Respiratory 20 Rate Blood Pressure 110/60 O2 Sat by Pulse Oximetry (%) Laboratory Results - last 24 hr 08/12/17 08/12/17 08/12/17 11:18 16:23 21:32 POC Glucometer 220 254 291 08/13/17 05:52 POC Glucometer 218 Assessment: 08/13/17 10:49 pain and opioid use disorder controlle on current suboxone odsage, case escalated to adrien to find a long term willing to accept her, need release fto discusse her case at a hightr level to be optained from patient regarding confidiential substance use history. and list of long term s contacted to be prepared to give adrien. Diogo Tee MD [phone]
--- NOTE | 2017-08-13 11:05 | PN ---
Progress Note (short form) - Note Progress Note: Subjective: The patient was seen and examined, she has no complaints at this time Current Medications Generic Name Dose Route Start Last Admin Trade Name Justinq PRN Reason Stop Dose Admin Acetaminophen 650 mg 08/07/17 10:16 08/09/17 21:15 Tylenol - PO 650 mg Q6H PRN Administration PAIN LEVEL 1-5 Albuterol Sulfate 1 amp 08/09/17 16:01 08/12/17 16:49 Ventolin 0.083% Nebulizer Soln - NEB 1 amp Q4H PRN Administration SHORT OF BREATH/WHEEZING Bacitracin 1 applic 08/12/17 15:30 08/13/17 09:57 Bacitracin - TP 1 applic DAILY NI Administration Buprenorphine/Naloxone 2 each 08/07/17 11:15 08/13/17 10:01 Suboxone 8mg/2mg Sl Film - SL 2 each BID NI Administration Calcium Carbonate/Cholecalciferol 1 tab 08/07/17 22:00 08/12/17 21:22 Os-Eros 500+D - PO 1 tab BID@1200,2200 NI Administration Diazepam 10 mg 08/07/17 22:00 08/12/17 21:22 Valium - PO 10 mg HS NI Administration Docusate Sodium 300 mg 08/07/17 22:00 08/12/17 21:22 Colace - PO 300 mg HS NI Administration Enoxaparin Sodium 150 mg 08/07/17 18:00 08/13/17 06:44 Lovenox - SQ 150 mg BID@0600,1800 NI Administration Furosemide 80 mg 08/08/17 10:00 08/13/17 09:57 Lasix - PO 80 mg DAILY NI Administration Insulin Aspart 1 vial 08/07/17 11:00 08/13/17 06:29 Novolog Vial Sliding Scale - SQ 4 units ACHS NI Administration Protocol Lisinopril 20 mg 08/08/17 10:00 08/13/17 10:01 Prinivil PO 20 mg DAILY NI Administration Metformin HCl 500 mg 08/12/17 07:00 08/13/17 06:27 Glucophage - PO 500 mg DAILY@0700 NI Administration Naproxen 500 mg 08/07/17 22:00 08/13/17 10:00 Naprosyn - PO 500 mg BID NI Administration Nystatin 1 applic 08/08/17 12:30 08/13/17 10:00 Nystop Powder - TP 1 applic DAILY NI Administration Ondansetron HCl 4 mg 08/07/17 10:05 Zofran Injection IVPUSH Q6H PRN NAUSEA AND/OR VOMITING Pantoprazole Sodium 40 mg 08/08/17 10:00 08/13/17 10:01 Protonix - PO 40 mg DAILY NI Administration Pregabalin 100 mg 08/07/17 14:00 08/13/17 06:27 Lyrica - PO 100 mg TID NI Administration Multivit/Folic Acid/Iron 1 tab 08/08/17 10:00 08/13/17 10:01 Vitamins (Sjr) - PO 1 tab DAILY NI Administration Quetiapine Fumarate 50 mg 08/07/17 22:00 08/12/17 21:25 Seroquel - PO 50 mg HS NI Administration Senna 2 tab 08/07/17 22:00 08/12/17 21:21 Senna - PO 2 tab HS NI Administration Thiamine HCl 100 mg 08/07/17 22:00 08/12/17 21:22 Vitamin B1 - PO 100 mg HS NI Administration Trazodone HCl 150 mg 08/07/17 22:00 08/12/17 21:22 Desyrel - PO 150 mg HS NI Administration Objective: Vital Signs Period Temp Pulse Resp BP Sys/Puente Pulse Ox Last 24 Hr 97.7 F-99.0 F 93-105 18-20 110-127/58-72 95 Physical Exam: General: NAD, A&Ox3, morbidly obese Lungs: CTA bilaterally Heart: RRR, S1S2 Abd: Soft, non-tender, non-distended. Normoactive bowel sounds Ext: Left lower extremity splint in place CBCD WBC 6.2 K/mm3 (4.0-10.0) 08/10/17 08:00 RBC 4.50 M/mm3 (3.60-5.2) 08/10/17 08:00 Hgb 12.5 GM/dL (10.7-15.3) D 08/10/17 08:00 Hct 38.9 % (32.4-45.2) D 08/10/17 08:00 MCV 86.4 fl (80-96) 08/10/17 08:00 MCHC 32.1 g/dl (32.0-36.0) 08/10/17 08:00 RDW 14.3 % (11.6-15.6) 08/10/17 08:00 Plt Count 285 K/MM3 (134-434) 08/10/17 08:00 MPV 8.1 fl (7.5-11.1) 08/10/17 08:00 CMP Sodium 141 mmol/L (136-145) 08/10/17 08:00 Potassium 4.2 mmol/L (3.5-5.1) 08/10/17 08:00 Chloride 103 mmol/L (98-107) 08/10/17 08:00 Carbon Dioxide 32 mmol/L (21-32) 08/10/17 08:00 Anion Gap 6 (8-16) L 08/10/17 08:00 BUN 23 mg/dL (7-18) H 08/10/17 08:00 Creatinine 0.7 mg/dL (0.55-1.02) 08/10/17 08:00 Creat Clearance w eGFR > 60 (>60) 08/08/17 06:30 Random Glucose 126 mg/dL (74-106) H 08/10/17 08:00 Calcium 8.9 mg/dL (8.5-10.1) 08/10/17 08:00 Total Bilirubin 0.5 mg/dL (0.2-1.0) 08/08/17 06:30 AST 26 U/L (15-37) 08/08/17 06:30 ALT 38 U/L (12-78) 08/08/17 06:30 Alkaline Phosphatase 58 U/L (45-117) 08/08/17 06:30 Total Protein 6.3 g/dl (6.4-8.2) L 08/08/17 06:30 Albumin 2.8 g/dl (3.4-5.0) L 08/08/17 06:30 CARDIAC ENZYMES Troponin I < 0.02 ng/ml (0.00-0.05) 08/08/17 21:40 Assessment: This is a 47 year old female with PMHx of HTN, hyperlipidemia, CHF , DVT s/p IVC filter, NIDDM, chronic leg ulcers, left big toe wound, polysubstance abuse, who presented to the ED after slipping on the [place] driveway and twisting her left ankle. Plan: 1) Left posterior and lateral malleolus fracture/dislocation - S/p reduction in the ED - S/p closed reduction and casting on 08/06/17 - Ambulating now with walker - Pain control with Naprosyn only per detox, will not continue on discharge - Appreciate ortho consult 2) Polysubstance abuse - Continue Suboxone, increased 08/03 - Valium prn - Trazodone 150mg po hs 3) Hx of DVT - S/p IVC filter - Lovenox 150mg sq bid (failed out patient xarelto?) 4) Chronic leg ulcers - Left great toe wound - Bacitracin - Doxycycline (07/27-08/09). Complete total 14 days - Appreciate Dr. Knox consult 5) NIDDM - BGM ACHS - ISS ACHS 6) CHF - No evidence of exacerbation - Continue Lasix 7) F/E/N: - Diabetic/sodium controlled diet - Monitor electrolytes 8) Prophylaxis: - PT - On Lovenox 9) Dispo: - Awaiting SNF placement CODE STATUS: FULL CODE Visit type - Emergency Visit Emergency Visit: Yes ED Registration Date: 08/01/17 Care time: The patient presented to the Emergency Department on the above date and was hospitalized for further evaluation of their emergent condition. - New Patient This patient is new to me today: No - Critical Care Critical Care patient: No
[2017-08-13] MEDS: CALCIUM 500MG/VIT-D 200 UNITS COMBO TABLET (FP) PO SCH ×2 (12:27→21:37)
[2017-08-13] MEDS: ALBUTEROL SO4 0.083% IH SOL 2.5 MG/3 ML VIAL.NEB. NEB PRN (20:27)
[2017-08-13] MEDS ORDERED: QUEtiapine FUMARATE 25 MG TABLET (FP) ONE (21:30)
[2017-08-13] MEDS: DOCUSATE SODIUM 100 MG CAPSULE (FP) PO SCH (21:37)
[2017-08-13] MEDS: diazePAM 5 MG TABLET PO SCH (21:37)
[2017-08-13] MEDS: traZODone HCL 50 MG TABLET (FP) PO SCH (21:38)
[2017-08-13] MEDS: QUEtiapine FUMARATE 50 MG TABLET PO SCH (21:38)
[2017-08-13] MEDS: THIAMINE HCL 100 MG TABLET (FP) PO SCH (21:38)
[2017-08-13] MEDS: SENNOSIDES 8.6MG TABLET (FP) PO SCH (21:38)
[2017-08-13] MEDS ORDERED: HYDROCORTISONE 1% TOPICAL CREAM 30 GM TUBE TP PRN (22:24)
[2017-08-14] MEDS: PREGABALIN 50 MG CAPSULE PO SCH ×3 (06:32→21:25)
[2017-08-14] MEDS: metFORMIN HCL 500 MG TABLET (FP) PO SCH (06:32)
[2017-08-14] MEDS: ENOXAPARIN NA (PORCINE) 100 MG/1 ML DISP.SYRIN SQ SCH ×2 (06:32→17:34)
[2017-08-14] MEDS: INSULIN SLIDING SCALE (NOVOLOG) 1 VIAL SQ SCH ×4 (06:32→21:29)
[2017-08-14] MEDS ORDERED: INSULIN (NOVOLOG) ASPART 100 UNITS/ML 10ML VIAL ONE (06:42)
[2017-08-14] MEDS ORDERED: PT OWN MED DRAWER 7, Y5N ONE ×2 (09:19→17:47)
[2017-08-14] MEDS: BACITRACIN 15 GM TUBE TOPICAL OINTMENT TP SCH (09:31)
[2017-08-14] MEDS: FUROSEMIDE 40 MG TABLET (FP) PO SCH (09:32)
[2017-08-14] MEDS: NAPROXEN 500 MG TABLET (FP) PO SCH ×2 (09:32→22:01)
[2017-08-14] MEDS: PRENATAL VITAMINS W/ FOLIC ACID TABLET (FP) PO SCH (09:33)
[2017-08-14] MEDS: LISINOPRIL 20 MG TABLET (FP) PO SCH (09:33)
[2017-08-14] MEDS: NYSTATIN POWDER 100,000 UNITS/GM - 15 GM TOPICAL POWDER TP SCH ×2 (09:33→09:35)
[2017-08-14] MEDS: PANTOPRAZOLE 40 MG TABLET (FP) PO SCH (09:34)
[2017-08-14] MEDS: BUPRENORPHINE/NALOXONE 8 MG/2 MG FILM PACKET SL SCH ×2 (09:34→21:27)
[2017-08-14] MEDS: VITAMINS A AND D TOPICAL OINTMENT 60 GM TUBE TP SCH ×3 (12:14→23:51)
[2017-08-14] MEDS: CALCIUM 500MG/VIT-D 200 UNITS COMBO TABLET (FP) PO SCH ×2 (12:15→21:26)
--- NOTE | 2017-08-14 13:38 | PN ---
Physical Exam: SUBJECTIVE: Patient seen and examined. She says her neck is very itchy, she has not tried any new products or foods. She also is says her L great toe is still numb. OBJECTIVE: Vital Signs Period Temp Pulse Resp BP Sys/Puente Pulse Ox Last 24 Hr 98.0 F-99.2 F 100-113 16-20 103-147/51-80 96-97 PE Neuro: alert, awake, cn 2-12intact HEENT: neck dermatitis, red, dry Pulm: CTAB CV: s1 s2 rrr no mrg Abd: hematoma to abd, obese abd, s nd nt + bs Skin: L breast skin fold opening not bleeding Ext: RLE wounds dried, LLE casting, L great toe callus Laboratory Results - last 24 hr 08/14/17 11:31 POC Glucometer 204 Active Medications Generic Name Dose Route Start Last Admin Trade Name Freq PRN Reason Stop Dose Admin Acetaminophen 650 mg 08/07/17 10:16 08/09/17 21:15 Tylenol - PO 650 mg Q6H PRN Administration PAIN LEVEL 1-5 Albuterol Sulfate 1 amp 08/09/17 16:01 08/13/17 20:27 Ventolin 0.083% Nebulizer Soln - NEB 1 amp Q4H PRN Administration SHORT OF BREATH/WHEEZING Bacitracin 1 applic 08/12/17 15:30 08/14/17 09:31 Bacitracin - TP 1 applic DAILY NI Administration Buprenorphine/Naloxone 2 each 08/07/17 11:15 08/14/17 09:34 Suboxone 8mg/2mg Sl Film - SL 2 each BID NI Administration Calcium Carbonate/Cholecalciferol 1 tab 08/07/17 22:00 08/14/17 12:15 Os-Eros 500+D - PO 1 tab BID@1200,2200 NI Administration Diazepam 10 mg 08/07/17 22:00 08/13/17 21:37 Valium - PO 10 mg HS NI Administration Docusate Sodium 300 mg 08/07/17 22:00 08/13/17 21:37 Colace - PO 300 mg HS NI Administration Enoxaparin Sodium 150 mg 08/14/17 06:00 08/14/17 06:32 Lovenox - SQ 150 mg BID@0600,1800 NI Administration Furosemide 80 mg 08/08/17 10:00 08/14/17 09:32 Lasix - PO 80 mg DAILY NI Administration Hydrocortisone 1 applic 08/13/17 22:24 08/13/17 23:59 Hytone 1% Cream - TP 1 applic BID PRN Administration itching Insulin Aspart 1 vial 08/07/17 11:00 08/14/17 11:33 Novolog Vial Sliding Scale - SQ 4 units ACHS NI Administration Protocol Lisinopril 20 mg 08/08/17 10:00 08/14/17 09:33 Prinivil PO 20 mg DAILY NI Administration Metformin HCl 500 mg 08/12/17 07:00 08/14/17 06:32 Glucophage - PO 500 mg DAILY@0700 NI Administration Naproxen 500 mg 08/07/17 22:00 08/14/17 09:32 Naprosyn - PO 500 mg BID NI Administration Nystatin 1 applic 08/14/17 10:00 08/14/17 09:35 Nystop Powder - TP 1 applic DAILY NI Administration Ondansetron HCl 4 mg 08/07/17 10:05 Zofran Injection IVPUSH Q6H PRN NAUSEA AND/OR VOMITING Pantoprazole Sodium 40 mg 08/08/17 10:00 08/14/17 09:34 Protonix - PO 40 mg DAILY NI Administration Pregabalin 100 mg 08/07/17 14:00 08/14/17 06:32 Lyrica - PO 100 mg TID NI Administration Multivit/Folic Acid/Iron 1 tab 08/08/17 10:00 08/14/17 09:33 Vitamins (Sjr) - PO 1 tab DAILY NI Administration Quetiapine Fumarate 50 mg 08/07/17 22:00 08/13/17 21:38 Seroquel - PO 50 mg HS NI Administration Senna 2 tab 08/07/17 22:00 08/13/17 21:38 Senna - PO 2 tab HS NI Administration Thiamine HCl 100 mg 08/07/17 22:00 08/13/17 21:38 Vitamin B1 - PO 100 mg HS NI Administration Trazodone HCl 150 mg 08/07/17 22:00 08/13/17 21:38 Desyrel - PO 150 mg HS NI Administration Vitamin A/Vitamin D 1 applic 08/14/17 12:00 08/14/17 12:14 Vitamin A & D Top Oint - TP 1 applic Q6HPO NI Administration Assessment: 47 year old female with PMHx of HTN, hyperlipidemia, CHF, DVT s/p IVC filter, NIDDM, chronic leg ulcers, left big toe wound, polysubstance abuse, admitted s/p fall resulting in L ankle twisting. Plan: 1. Left posterior and lateral malleolus fracture/dislocation - S/p reduction in the ED with closed reduction and casting on 08/06 - Ambulating now with walker - Pain control with Naprosyn only per detox, will not continue on discharge - Per ortho eval of cast 08/09, does not appear tight, pt needs to elevate 2. Contact dermatitis - Continue hydrocortisone application - Benadryl prn 3. Polysubstance abuse - Continue Suboxone, increased 08/03 - Valium prn - Trazodone 150mg po hs 4. Hx of DVT - S/p IVC filter - Lovenox 150mg sq bid (failed out patient xarelto?) 5. Chronic leg ulcers - Left great toe wound - Apply Bacitracin - Doxycycline (07/27-08/09). Completed total 14 days 6. DM II - Metformin 500mg daily - ISS, BGM ACHS 7. CHF - Not in exacerbation - Continue Lasix 80mg daily 8. DVT: - On Lovenox CODE STATUS: FULL CODE Visit type - Emergency Visit Emergency Visit: Yes ED Registration Date: 08/01/17 Care time: The patient presented to the Emergency Department on the above date and was hospitalized for further evaluation of their emergent condition. - New Patient This patient is new to me today: No - Critical Care Critical Care patient: No
--- NOTE | 2017-08-14 14:16 | PN ---
[facility] Progress Note (SOAP) Subjective: patietn out of chair, eating pain 09/22 still awaiting fdc placement Objective: 08/14/17 14:14 Vital Signs - 24 hr 08/13/17 08/13/17 08/13/17 15:23 19:00 21:00 Temperature 99.2 F 98.2 F Pulse Rate 111 H 113 H Respiratory 20 20 Rate Blood Pressure 146/79 147/69 O2 Sat by Pulse 96 Oximetry (%) 08/13/17 08/14/17 08/14/17 23:00 05:53 09:00 Temperature 98.0 F 99.2 F 99.2 F Pulse Rate 101 H 103 H 100 H Respiratory 16 18 18 Rate Blood Pressure 103/51 143/80 122/69 O2 Sat by Pulse 97 Oximetry (%) Laboratory Results - last 24 hr 08/13/17 08/13/17 08/14/17 17:21 21:16 06:31 POC Glucometer 196 209 200 08/14/17 11:31 POC Glucometer 204 medically stabel, pain controlled with suboxone Assessment: 08/14/17 14:15 transfer to [place] when bed is found, case escalated to adrien. SW aware. [facility] if medication needs to be picked up prior to transfer
[2017-08-14] MEDS ORDERED: QUEtiapine FUMARATE 25 MG TABLET (FP) ONE (21:05)
[2017-08-14] MEDS: diazePAM 5 MG TABLET PO SCH (21:26)
[2017-08-14] MEDS: DOCUSATE SODIUM 100 MG CAPSULE (FP) PO SCH (21:26)
[2017-08-14] MEDS: THIAMINE HCL 100 MG TABLET (FP) PO SCH (21:26)
[2017-08-14] MEDS: SENNOSIDES 8.6MG TABLET (FP) PO SCH (21:26)
[2017-08-14] MEDS: traZODone HCL 50 MG TABLET (FP) PO SCH (21:26)
[2017-08-14] MEDS: QUEtiapine FUMARATE 50 MG TABLET PO SCH (21:27)
[2017-08-15] MEDS: ENOXAPARIN NA (PORCINE) 100 MG/1 ML DISP.SYRIN SQ SCH ×2 (06:27→19:37)
[2017-08-15] MEDS: metFORMIN HCL 500 MG TABLET (FP) PO SCH (06:28)
[2017-08-15] MEDS: INSULIN SLIDING SCALE (NOVOLOG) 1 VIAL SQ SCH ×4 (06:28→21:26)
[2017-08-15] MEDS: VITAMINS A AND D TOPICAL OINTMENT 60 GM TUBE TP SCH ×4 (06:28→23:11)
[2017-08-15] MEDS: PREGABALIN 50 MG CAPSULE PO SCH ×3 (06:28→21:16)
[2017-08-15] MEDS ORDERED: PT OWN MED DRAWER 7, Y5N ONE ×4 (06:47→20:43)
[2017-08-15] MEDS: LISINOPRIL 20 MG TABLET (FP) PO SCH (10:03)
[2017-08-15] MEDS: FUROSEMIDE 40 MG TABLET (FP) PO SCH (10:03)
[2017-08-15] MEDS: PANTOPRAZOLE 40 MG TABLET (FP) PO SCH (10:03)
[2017-08-15] MEDS: NAPROXEN 500 MG TABLET (FP) PO SCH ×2 (10:04→21:17)
[2017-08-15] MEDS: BUPRENORPHINE/NALOXONE 8 MG/2 MG FILM PACKET SL SCH ×2 (10:05→21:16)
[2017-08-15] MEDS: PRENATAL VITAMINS W/ FOLIC ACID TABLET (FP) PO SCH (10:05)
[2017-08-15] MEDS: BACITRACIN 15 GM TUBE TOPICAL OINTMENT TP SCH (10:51)
[2017-08-15] MEDS: NYSTATIN POWDER 100,000 UNITS/GM - 15 GM TOPICAL POWDER TP SCH (10:52)
[2017-08-15] MEDS: CALCIUM 500MG/VIT-D 200 UNITS COMBO TABLET (FP) PO SCH ×2 (11:31→21:15)
--- NOTE | 2017-08-15 15:35 | PN ---
Physical Exam: SUBJECTIVE: Patient seen and examined. No acute complaints today, reiterated importance of LLE elevation. OBJECTIVE: Vital Signs Period Temp Pulse Resp BP Sys/Puente Pulse Ox Last 24 Hr 98 F-98.5 F 99-113 20-22 100-148/70-94 93-97 PE Neuro: alert, awake, cn 2-12intact HEENT: neck dermatitis- nearly resolved Pulm: CTAB CV: s1 s2 rrr no mrg Abd: obese abd, s nd nt + bs Skin: L breast skin break, not bleeding Ext: RLE wounds dried, LLE casting, L great toe callus Laboratory Results - last 24 hr 08/14/17 08/14/17 08/15/17 17:05 21:28 05:51 POC Glucometer 248 251 194 08/15/17 11:31 POC Glucometer 169 Active Medications Generic Name Dose Route Start Last Admin Trade Name Freq PRN Reason Stop Dose Admin Acetaminophen 650 mg 08/07/17 10:16 08/09/17 21:15 Tylenol - PO 650 mg Q6H PRN Administration PAIN LEVEL 1-5 Albuterol Sulfate 1 amp 08/09/17 16:01 08/13/17 20:27 Ventolin 0.083% Nebulizer Soln - NEB 1 amp Q4H PRN Administration SHORT OF BREATH/WHEEZING Bacitracin 1 applic 08/12/17 15:30 08/15/17 10:51 Bacitracin - TP 1 applic DAILY NI Administration Buprenorphine/Naloxone 2 each 08/07/17 11:15 08/15/17 10:05 Suboxone 8mg/2mg Sl Film - SL 2 each BID NI Administration Calcium Carbonate/Cholecalciferol 1 tab 08/07/17 22:00 08/15/17 11:31 Os-Eros 500+D - PO 1 tab BID@1200,2200 NI Administration Diazepam 10 mg 08/07/17 22:00 08/14/17 21:26 Valium - PO 10 mg HS NI Administration Docusate Sodium 300 mg 08/07/17 22:00 08/14/17 21:26 Colace - PO 300 mg HS NI Administration Enoxaparin Sodium 150 mg 08/14/17 06:00 08/15/17 06:27 Lovenox - SQ 150 mg BID@0600,1800 NI Administration Furosemide 80 mg 08/08/17 10:00 08/15/17 10:03 Lasix - PO 80 mg DAILY NI Administration Hydrocortisone 1 applic 08/13/17 22:24 08/13/17 23:59 Hytone 1% Cream - TP 1 applic BID PRN Administration itching Insulin Aspart 1 vial 08/07/17 11:00 08/15/17 11:31 Novolog Vial Sliding Scale - SQ 2 units ACHS NI Administration Protocol Lisinopril 20 mg 08/08/17 10:00 08/15/17 10:03 Prinivil PO 20 mg DAILY NI Administration Metformin HCl 500 mg 08/12/17 07:00 08/15/17 06:28 Glucophage - PO 500 mg DAILY@0700 NI Administration Naproxen 500 mg 08/07/17 22:00 08/15/17 10:04 Naprosyn - PO 500 mg BID NI Administration Nystatin 1 applic 08/14/17 10:00 08/15/17 10:52 Nystop Powder - TP 1 applic DAILY NI Administration Ondansetron HCl 4 mg 08/07/17 10:05 Zofran Injection IVPUSH Q6H PRN NAUSEA AND/OR VOMITING Pantoprazole Sodium 40 mg 08/08/17 10:00 08/15/17 10:03 Protonix - PO 40 mg DAILY NI Administration Pregabalin 100 mg 08/07/17 14:00 08/15/17 13:52 Lyrica - PO 100 mg TID NI Administration Multivit/Folic Acid/Iron 1 tab 08/08/17 10:00 08/15/17 10:05 Vitamins (Sjr) - PO 1 tab DAILY NI Administration Quetiapine Fumarate 50 mg 08/07/17 22:00 08/14/17 21:27 Seroquel - PO 50 mg HS NI Administration Senna 2 tab 08/07/17 22:00 08/14/17 21:26 Senna - PO 2 tab HS NI Administration Thiamine HCl 100 mg 08/07/17 22:00 08/14/17 21:26 Vitamin B1 - PO 100 mg HS NI Administration Trazodone HCl 150 mg 08/07/17 22:00 08/14/17 21:26 Desyrel - PO 150 mg HS NI Administration Vitamin A/Vitamin D 1 applic 08/14/17 12:00 08/15/17 11:36 Vitamin A & D Top Oint - TP 1 applic Q6HPO NI Administration Assessment: 47 year old female with PMHx of HTN, hyperlipidemia, CHF, DVT s/p IVC filter, NIDDM, chronic leg ulcers, left big toe wound, polysubstance abuse, admitted s/p fall resulting in L ankle twisting. Plan: 1. Left posterior and lateral malleolus fracture/dislocation - S/p reduction in the ED with closed reduction and casting on 08/06 - Ambulating now with walker - Pain control with Naprosyn only per detox, will not continue on discharge - Per ortho eval of cast 08/09, does not appear tight, pt needs to elevate limb 2. Contact dermatitis - Continue hydrocortisone application - Benadryl prn 3. Polysubstance abuse - Continue Suboxone, increased 08/03 - Valium prn - Trazodone 150mg po hs 4. Hx of DVT - S/p IVC filter - Lovenox 150mg sq bid (failed out patient xarelto?) 5. Chronic leg ulcers - Left great toe wound - Apply Bacitracin - Completed 14days Doxycycline (07/27-08/09) 6. DM II - Metformin 500mg daily - ISS, BGM ACHS 7. CHF - Not in exacerbation - Continue Lasix 80mg daily 8. DVT: - On Lovenox CODE STATUS: FULL CODE Visit type - Emergency Visit Emergency Visit: Yes ED Registration Date: 08/01/17 Care time: The patient presented to the Emergency Department on the above date and was hospitalized for further evaluation of their emergent condition. - New Patient This patient is new to me today: No - Critical Care Critical Care patient: No
[2017-08-15] MEDS: ACETAMINOPHEN 325 MG TABLET (FP) PO PRN (16:31)
[2017-08-15] MEDS ORDERED: QUEtiapine FUMARATE 25 MG TABLET (FP) ONE (20:42)
[2017-08-15] MEDS: traZODone HCL 50 MG TABLET (FP) PO SCH (21:15)
[2017-08-15] MEDS: DOCUSATE SODIUM 100 MG CAPSULE (FP) PO SCH (21:15)
[2017-08-15] MEDS: diazePAM 5 MG TABLET PO SCH (21:16)
[2017-08-15] MEDS: THIAMINE HCL 100 MG TABLET (FP) PO SCH (21:16)
[2017-08-15] MEDS: SENNOSIDES 8.6MG TABLET (FP) PO SCH (21:16)
[2017-08-15] MEDS: QUEtiapine FUMARATE 50 MG TABLET PO SCH (21:18)
[2017-08-16] MEDS: ENOXAPARIN NA (PORCINE) 100 MG/1 ML DISP.SYRIN SQ SCH ×2 (06:26→17:20)
[2017-08-16] MEDS: VITAMINS A AND D TOPICAL OINTMENT 60 GM TUBE TP SCH ×3 (06:27→17:20)
[2017-08-16] MEDS: PREGABALIN 50 MG CAPSULE PO SCH ×3 (06:27→21:04)
[2017-08-16] MEDS: metFORMIN HCL 500 MG TABLET (FP) PO SCH (06:27)
[2017-08-16] MEDS: INSULIN SLIDING SCALE (NOVOLOG) 1 VIAL SQ SCH ×4 (06:31→21:07)
[2017-08-16] MEDS ORDERED: PT OWN MED DRAWER 7, Y5N ONE (09:35)
[2017-08-16] MEDS: FUROSEMIDE 40 MG TABLET (FP) PO SCH (09:38)
[2017-08-16] MEDS: PANTOPRAZOLE 40 MG TABLET (FP) PO SCH (09:39)
[2017-08-16] MEDS: PRENATAL VITAMINS W/ FOLIC ACID TABLET (FP) PO SCH (09:39)
[2017-08-16] MEDS: NAPROXEN 500 MG TABLET (FP) PO SCH ×2 (09:39→21:07)
[2017-08-16] MEDS: LISINOPRIL 20 MG TABLET (FP) PO SCH (09:39)
[2017-08-16] MEDS: NYSTATIN POWDER 100,000 UNITS/GM - 15 GM TOPICAL POWDER TP SCH (09:48)
[2017-08-16] MEDS: BUPRENORPHINE/NALOXONE 8 MG/2 MG FILM PACKET SL SCH ×2 (10:21→21:03)
[2017-08-16] MEDS: BACITRACIN 15 GM TUBE TOPICAL OINTMENT TP SCH (10:22)
[2017-08-16] MEDS: CALCIUM 500MG/VIT-D 200 UNITS COMBO TABLET (FP) PO SCH ×2 (12:09→21:04)
--- NOTE | 2017-08-16 12:15 | PN ---
Progress Note (short form) - Note Progress Note: Subjective: The patient was seen and examined, she has no complaints at this time Current Medications Generic Name Dose Route Start Last Admin Trade Name Freq PRN Reason Stop Dose Admin Acetaminophen 650 mg 08/07/17 10:16 08/15/17 16:31 Tylenol - PO 650 mg Q6H PRN Administration PAIN LEVEL 1-5 Albuterol Sulfate 1 amp 08/09/17 16:01 08/13/17 20:27 Ventolin 0.083% Nebulizer Soln - NEB 1 amp Q4H PRN Administration SHORT OF BREATH/WHEEZING Bacitracin 1 applic 08/12/17 15:30 08/16/17 10:22 Bacitracin - TP 1 applic DAILY NI Administration Buprenorphine/Naloxone 2 each 08/07/17 11:15 08/16/17 10:21 Suboxone 8mg/2mg Sl Film - SL 2 each BID NI Administration Calcium Carbonate/Cholecalciferol 1 tab 08/07/17 22:00 08/16/17 12:09 Os-Eros 500+D - PO 1 tab BID@1200,2200 NI Administration Diazepam 10 mg 08/07/17 22:00 08/15/17 21:16 Valium - PO 10 mg HS NI Administration Docusate Sodium 300 mg 08/07/17 22:00 08/15/17 21:15 Colace - PO 300 mg HS NI Administration Enoxaparin Sodium 150 mg 08/14/17 06:00 08/16/17 06:26 Lovenox - SQ 150 mg BID@0600,1800 NI Administration Furosemide 80 mg 08/08/17 10:00 08/16/17 09:38 Lasix - PO 80 mg DAILY NI Administration Hydrocortisone 1 applic 08/13/17 22:24 08/13/17 23:59 Hytone 1% Cream - TP 1 applic BID PRN Administration itching Insulin Aspart 1 vial 08/07/17 11:00 08/16/17 11:06 Novolog Vial Sliding Scale - SQ 4 units ACHS NI Administration Protocol Lisinopril 20 mg 08/08/17 10:00 08/16/17 09:39 Prinivil PO 20 mg DAILY NI Administration Metformin HCl 500 mg 08/12/17 07:00 08/16/17 06:27 Glucophage - PO 500 mg DAILY@0700 NI Administration Naproxen 500 mg 08/07/17 22:00 08/16/17 09:39 Naprosyn - PO 500 mg BID NI Administration Nystatin 1 applic 08/14/17 10:00 08/16/17 09:48 Nystop Powder - TP 1 applic DAILY NI Administration Ondansetron HCl 4 mg 08/07/17 10:05 Zofran Injection IVPUSH Q6H PRN NAUSEA AND/OR VOMITING Pantoprazole Sodium 40 mg 08/08/17 10:00 08/16/17 09:39 Protonix - PO 40 mg DAILY NI Administration Pregabalin 100 mg 08/07/17 14:00 08/16/17 06:27 Lyrica - PO 100 mg TID NI Administration Multivit/Folic Acid/Iron 1 tab 08/08/17 10:00 08/16/17 09:39 Vitamins (Sjr) - PO 1 tab DAILY NI Administration Quetiapine Fumarate 50 mg 08/07/17 22:00 08/15/17 21:18 Seroquel - PO 50 mg HS NI Administration Senna 2 tab 08/07/17 22:00 08/15/17 21:16 Senna - PO 2 tab HS NI Administration Thiamine HCl 100 mg 08/07/17 22:00 08/15/17 21:16 Vitamin B1 - PO 100 mg HS NI Administration Trazodone HCl 150 mg 08/07/17 22:00 08/15/17 21:15 Desyrel - PO 150 mg HS NI Administration Vitamin A/Vitamin D 1 applic 08/14/17 12:00 08/16/17 12:09 Vitamin A & D Top Oint - TP 1 applic Q6HPO NI Administration Objective: Vital Signs Period Temp Pulse Resp BP Sys/Puente Pulse Ox Last 24 Hr 97.8 F-98.5 F 80-113 20-22 111-132/82-94 95 Physical Exam: General: NAD, A&Ox3, morbidly obese Lungs: CTA bilaterally Heart: RRR, S1S2 Abd: Soft, non-tender, non-distended. Normoactive bowel sounds Ext: Left lower extremity splint in place CBCD WBC 6.2 K/mm3 (4.0-10.0) 08/10/17 08:00 RBC 4.50 M/mm3 (3.60-5.2) 08/10/17 08:00 Hgb 12.5 GM/dL (10.7-15.3) D 08/10/17 08:00 Hct 38.9 % (32.4-45.2) D 08/10/17 08:00 MCV 86.4 fl (80-96) 08/10/17 08:00 MCHC 32.1 g/dl (32.0-36.0) 08/10/17 08:00 RDW 14.3 % (11.6-15.6) 08/10/17 08:00 Plt Count 285 K/MM3 (134-434) 08/10/17 08:00 MPV 8.1 fl (7.5-11.1) 08/10/17 08:00 CMP Sodium 141 mmol/L (136-145) 08/10/17 08:00 Potassium 4.2 mmol/L (3.5-5.1) 08/10/17 08:00 Chloride 103 mmol/L (98-107) 08/10/17 08:00 Carbon Dioxide 32 mmol/L (21-32) 08/10/17 08:00 Anion Gap 6 (8-16) L 08/10/17 08:00 BUN 23 mg/dL (7-18) H 08/10/17 08:00 Creatinine 0.7 mg/dL (0.55-1.02) 08/10/17 08:00 Creat Clearance w eGFR > 60 (>60) 08/08/17 06:30 Random Glucose 126 mg/dL (74-106) H 08/10/17 08:00 Calcium 8.9 mg/dL (8.5-10.1) 08/10/17 08:00 Total Bilirubin 0.5 mg/dL (0.2-1.0) 08/08/17 06:30 AST 26 U/L (15-37) 08/08/17 06:30 ALT 38 U/L (12-78) 08/08/17 06:30 Alkaline Phosphatase 58 U/L (45-117) 08/08/17 06:30 Total Protein 6.3 g/dl (6.4-8.2) L 08/08/17 06:30 Albumin 2.8 g/dl (3.4-5.0) L 08/08/17 06:30 CARDIAC ENZYMES Troponin I < 0.02 ng/ml (0.00-0.05) 08/08/17 21:40 Assessment: This is a 47 year old female with PMHx of HTN, hyperlipidemia, CHF , DVT s/p IVC filter, NIDDM, chronic leg ulcers, left big toe wound, polysubstance abuse, who presented to the ED [place] slipping [place] the [place] [address] and twisting her left ankle. Plan: 1) Left posterior and lateral malleolus fracture/dislocation - S/p reduction in the ED - S/p closed reduction and casting on 08/06/17 - Ambulating now with walker - Pain control with Naprosyn only per detox, will not continue on discharge - Appreciate ortho consult 2) Polysubstance abuse - Continue Suboxone, increased 08/03 - Valium prn - Trazodone 150mg po hs 3) Hx of DVT - S/p IVC filter - Lovenox 150mg sq bid (failed out patient xarelto?) 4) Chronic leg ulcers - Left great toe wound and neuropathy (Dr. Knox aware) - Bacitracin - Doxycycline (07/27-08/09). Complete total 14 days - Appreciate Dr. Knox consult 5) NIDDM - BGM ACHS - ISS ACHS 6) CHF - No evidence of exacerbation - Continue Lasix 7) F/E/N: - Diabetic/sodium controlled diet - Monitor electrolytes 8) Prophylaxis: - PT - On Lovenox 9) Dispo: - Awaiting SNF placement CODE STATUS: FULL CODE Visit type - Emergency Visit Emergency Visit: Yes ED Registration Date: 08/01/17 Care time: The patient presented to the Emergency Department on the above date and was hospitalized for further evaluation of their emergent condition. - New Patient This patient is new to me today: No - Critical Care Critical Care patient: No
[2017-08-16] MEDS: ACETAMINOPHEN 325 MG TABLET (FP) PO PRN (13:49)
[2017-08-16] MEDS ORDERED: INSULIN (NOVOLOG) ASPART 100 UNITS/ML 10ML VIAL ONE ×2 (17:39→21:06)
[2017-08-16] MEDS ORDERED: QUEtiapine FUMARATE 25 MG TABLET (FP) ONE (20:50)
[2017-08-16] MEDS: DOCUSATE SODIUM 100 MG CAPSULE (FP) PO SCH (21:04)
[2017-08-16] MEDS: SENNOSIDES 8.6MG TABLET (FP) PO SCH (21:04)
[2017-08-16] MEDS: diazePAM 5 MG TABLET PO SCH (21:04)
[2017-08-16] MEDS: traZODone HCL 50 MG TABLET (FP) PO SCH (21:04)
[2017-08-16] MEDS: THIAMINE HCL 100 MG TABLET (FP) PO SCH (21:04)
[2017-08-16] MEDS: QUEtiapine FUMARATE 50 MG TABLET PO SCH (21:05)
[2017-08-17] MEDS: VITAMINS A AND D TOPICAL OINTMENT 60 GM TUBE TP SCH ×4 (00:10→17:34)
[2017-08-17] MEDS: metFORMIN HCL 500 MG TABLET (FP) PO SCH ×2 (06:27→17:33)
[2017-08-17] MEDS: PREGABALIN 50 MG CAPSULE PO SCH ×3 (06:27→21:40)
[2017-08-17] MEDS: ENOXAPARIN NA (PORCINE) 100 MG/1 ML DISP.SYRIN SQ SCH ×2 (06:28→17:33)
[2017-08-17] MEDS: INSULIN SLIDING SCALE (NOVOLOG) 1 VIAL SQ SCH ×4 (06:28→21:42)
[2017-08-17] MEDS ORDERED: PT OWN MED DRAWER 7, Y5N ONE ×3 (09:23→21:33)
[2017-08-17] MEDS: FUROSEMIDE 40 MG TABLET (FP) PO SCH (09:24)
[2017-08-17] MEDS: NAPROXEN 500 MG TABLET (FP) PO SCH ×2 (09:25→21:41)
[2017-08-17] MEDS: BUPRENORPHINE/NALOXONE 8 MG/2 MG FILM PACKET SL SCH ×2 (09:25→21:40)
[2017-08-17] MEDS: LISINOPRIL 20 MG TABLET (FP) PO SCH (09:25)
[2017-08-17] MEDS: PANTOPRAZOLE 40 MG TABLET (FP) PO SCH (09:25)
[2017-08-17] MEDS: PRENATAL VITAMINS W/ FOLIC ACID TABLET (FP) PO SCH (09:25)
[2017-08-17] MEDS: BACITRACIN 15 GM TUBE TOPICAL OINTMENT TP SCH (09:29)
[2017-08-17] MEDS: NYSTATIN POWDER 100,000 UNITS/GM - 15 GM TOPICAL POWDER TP SCH (09:30)
--- NOTE | 2017-08-17 11:17 | PN ---
Progress Note (short form) - Note Progress Note: Subjective: The patient was seen at the bedside, she is upset because she would like to be discharged to a SNF Current Medications Generic Name Dose Route Start Last Admin Trade Name Shavon PRN Reason Stop Dose Admin Acetaminophen 650 mg 08/07/17 10:16 08/16/17 13:49 Tylenol - PO 650 mg Q6H PRN Administration PAIN LEVEL 1-5 Albuterol Sulfate 1 amp 08/09/17 16:01 08/13/17 20:27 Ventolin 0.083% Nebulizer Soln - NEB 1 amp Q4H PRN Administration SHORT OF BREATH/WHEEZING Bacitracin 1 applic 08/12/17 15:30 08/17/17 09:29 Bacitracin - TP 1 applic DAILY NI Administration Buprenorphine/Naloxone 2 each 08/07/17 11:15 08/17/17 09:25 Suboxone 8mg/2mg Sl Film - SL 2 each BID NI Administration Calcium Carbonate/Cholecalciferol 1 tab 08/07/17 22:00 08/16/17 21:04 Os-Eros 500+D - PO 1 tab BID@1200,2200 NI Administration Diazepam 10 mg 08/07/17 22:00 08/16/17 21:04 Valium - PO 10 mg HS NI Administration Docusate Sodium 300 mg 08/07/17 22:00 08/16/17 21:04 Colace - PO 300 mg HS NI Administration Enoxaparin Sodium 150 mg 08/14/17 06:00 08/17/17 06:28 Lovenox - SQ 150 mg BID@0600,1800 NI Administration Furosemide 80 mg 08/08/17 10:00 08/17/17 09:24 Lasix - PO 80 mg DAILY NI Administration Hydrocortisone 1 applic 08/13/17 22:24 08/13/17 23:59 Hytone 1% Cream - TP 1 applic BID PRN Administration itching Insulin Aspart 1 vial 08/07/17 11:00 08/17/17 06:28 Novolog Vial Sliding Scale - SQ 4 units ACHS NI Administration Protocol Lisinopril 20 mg 08/08/17 10:00 08/17/17 09:25 Prinivil PO 20 mg DAILY NI Administration Metformin HCl 500 mg 08/17/17 16:30 Glucophage - PO BIDAC NI Naproxen 500 mg 08/07/17 22:00 08/17/17 09:25 Naprosyn - PO 500 mg BID NI Administration Nystatin 1 applic 08/14/17 10:00 08/17/17 09:30 Nystop Powder - TP 1 applic DAILY NI Administration Ondansetron HCl 4 mg 08/07/17 10:05 Zofran Injection IVPUSH Q6H PRN NAUSEA AND/OR VOMITING Pantoprazole Sodium 40 mg 08/08/17 10:00 08/17/17 09:25 Protonix - PO 40 mg DAILY NI Administration Pregabalin 100 mg 08/07/17 14:00 08/17/17 06:27 Lyrica - PO 100 mg TID NI Administration Multivit/Folic Acid/Iron 1 tab 08/08/17 10:00 08/17/17 09:25 Vitamins (Sjr) - PO 1 tab DAILY NI Administration Quetiapine Fumarate 50 mg 08/07/17 22:00 08/16/17 21:05 Seroquel - PO 50 mg HS NI Administration Senna 2 tab 08/07/17 22:00 08/16/17 21:04 Senna - PO 2 tab HS NI Administration Thiamine HCl 100 mg 08/07/17 22:00 08/16/17 21:04 Vitamin B1 - PO 100 mg HS NI Administration Trazodone HCl 150 mg 08/07/17 22:00 08/16/17 21:04 Desyrel - PO 150 mg HS NI Administration Vitamin A/Vitamin D 1 applic 08/14/17 12:00 08/17/17 06:27 Vitamin A & D Top Oint - TP 1 applic Q6HPO NI Administration Objective: Vital Signs Period Temp Pulse Resp BP Sys/Puente Pulse Ox Last 24 Hr 97.7 F-99.2 F 98-109 20-22 100-139/66-78 94-95 Physical Exam: General: NAD, A&Ox3, morbidly obese Ext: Left lower extremity splint in place CBCD WBC 6.2 K/mm3 (4.0-10.0) 08/10/17 08:00 RBC 4.50 M/mm3 (3.60-5.2) 08/10/17 08:00 Hgb 12.5 GM/dL (10.7-15.3) D 08/10/17 08:00 Hct 38.9 % (32.4-45.2) D 08/10/17 08:00 MCV 86.4 fl (80-96) 08/10/17 08:00 MCHC 32.1 g/dl (32.0-36.0) 08/10/17 08:00 RDW 14.3 % (11.6-15.6) 08/10/17 08:00 Plt Count 285 K/MM3 (134-434) 08/10/17 08:00 MPV 8.1 fl (7.5-11.1) 08/10/17 08:00 CMP Sodium 141 mmol/L (136-145) 08/10/17 08:00 Potassium 4.2 mmol/L (3.5-5.1) 08/10/17 08:00 Chloride 103 mmol/L (98-107) 08/10/17 08:00 Carbon Dioxide 32 mmol/L (21-32) 08/10/17 08:00 Anion Gap 6 (8-16) L 08/10/17 08:00 BUN 23 mg/dL (7-18) H 08/10/17 08:00 Creatinine 0.7 mg/dL (0.55-1.02) 08/10/17 08:00 Creat Clearance w eGFR > 60 (>60) 08/08/17 06:30 Random Glucose 126 mg/dL (74-106) H 08/10/17 08:00 Calcium 8.9 mg/dL (8.5-10.1) 08/10/17 08:00 Total Bilirubin 0.5 mg/dL (0.2-1.0) 08/08/17 06:30 AST 26 U/L (15-37) 08/08/17 06:30 ALT 38 U/L (12-78) 08/08/17 06:30 Alkaline Phosphatase 58 U/L (45-117) 08/08/17 06:30 Total Protein 6.3 g/dl (6.4-8.2) L 08/08/17 06:30 Albumin 2.8 g/dl (3.4-5.0) L 08/08/17 06:30 CARDIAC ENZYMES Troponin I < 0.02 ng/ml (0.00-0.05) 08/08/17 21:40 Assessment: This is a 47 year old female with PMHx of HTN, hyperlipidemia, CHF , DVT s/p IVC filter, NIDDM, chronic leg ulcers, left big toe wound, polysubstance abuse, who presented to the ED after slipping on the icy driveway and twisting her left ankle. Plan: 1) Left posterior and lateral malleolus fracture/dislocation - S/p reduction in the ED - S/p closed reduction and casting on 08/06/17 - Ambulating now with walker - Pain control with Naprosyn only per detox, will not continue on discharge - Appreciate ortho consult 2) Polysubstance abuse - Continue Suboxone, increased 08/03 - Valium prn - Trazodone 150mg po hs 3) Hx of DVT - S/p IVC filter - Lovenox 150mg sq bid (failed out patient xarelto?) 4) Chronic leg ulcers - Left great toe wound and neuropathy (Dr. Knox aware) - Bacitracin - Doxycycline (07/27-08/09). Complete total 14 days - Appreciate Dr. Knox consult 5) NIDDM - BGM ACHS - ISS ACHS 6) CHF - No evidence of exacerbation - Continue Lasix 7) F/E/N: - Diabetic/sodium controlled diet - Monitor electrolytes 8) Prophylaxis: - PT - On Lovenox 9) Dispo: - Awaiting SNF placement CODE STATUS: FULL CODE Visit type - Emergency Visit Emergency Visit: Yes ED Registration Date: 08/01/17 Care time: The patient presented to the Emergency Department on the above date and was hospitalized for further evaluation of their emergent condition. - New Patient This patient is new to me today: No - Critical Care Critical Care patient: No
[2017-08-17] MEDS: CALCIUM 500MG/VIT-D 200 UNITS COMBO TABLET (FP) PO SCH ×2 (11:40→21:41)
--- NOTE | 2017-08-17 14:38 | PN ---
Progress Note (short form) - Note Progress Note: Vascular surgery pt seen and examined. Right great toe with callus. Convinced pt to place bacitracin daily to toe. She agrees. Please place bacitracin to toe daily. Herbert yeung DO
[2017-08-17] MEDS ORDERED: INSULIN (NOVOLOG) ASPART 100 UNITS/ML 10ML VIAL ONE ×2 (17:49→21:33)
[2017-08-17] MEDS: ALBUTEROL SO4 0.083% IH SOL 2.5 MG/3 ML VIAL.NEB. NEB PRN (20:30)
[2017-08-17] MEDS ORDERED: QUEtiapine FUMARATE 25 MG TABLET (FP) ONE (21:32)
[2017-08-17] MEDS: THIAMINE HCL 100 MG TABLET (FP) PO SCH (21:40)
[2017-08-17] MEDS: SENNOSIDES 8.6MG TABLET (FP) PO SCH (21:40)
[2017-08-17] MEDS: traZODone HCL 50 MG TABLET (FP) PO SCH (21:40)
[2017-08-17] MEDS: DOCUSATE SODIUM 100 MG CAPSULE (FP) PO SCH (21:41)
[2017-08-17] MEDS: diazePAM 5 MG TABLET PO SCH (21:41)
[2017-08-17] MEDS: QUEtiapine FUMARATE 50 MG TABLET PO SCH (21:42)
[2017-08-18] MEDS: VITAMINS A AND D TOPICAL OINTMENT 60 GM TUBE TP SCH ×5 (00:05→23:40)
[2017-08-18] MEDS: INSULIN SLIDING SCALE (NOVOLOG) 1 VIAL SQ SCH ×4 (06:38→21:55)
[2017-08-18] MEDS: PREGABALIN 50 MG CAPSULE PO SCH ×3 (06:39→21:38)
[2017-08-18] MEDS: ENOXAPARIN NA (PORCINE) 100 MG/1 ML DISP.SYRIN SQ SCH ×2 (06:39→17:53)
[2017-08-18] MEDS: metFORMIN HCL 500 MG TABLET (FP) PO SCH ×2 (06:39→16:34)
[2017-08-18] MEDS ORDERED: PT OWN MED DRAWER 7, Y5N ONE ×3 (09:19→21:22)
[2017-08-18] MEDS: NYSTATIN POWDER 100,000 UNITS/GM - 15 GM TOPICAL POWDER TP SCH (09:24)
[2017-08-18] MEDS: NAPROXEN 500 MG TABLET (FP) PO SCH (09:24)
[2017-08-18] MEDS: PANTOPRAZOLE 40 MG TABLET (FP) PO SCH (09:24)
[2017-08-18] MEDS: BUPRENORPHINE/NALOXONE 8 MG/2 MG FILM PACKET SL SCH ×2 (09:24→21:54)
[2017-08-18] MEDS: LISINOPRIL 20 MG TABLET (FP) PO SCH (09:24)
[2017-08-18] MEDS: FUROSEMIDE 40 MG TABLET (FP) PO SCH (09:24)
[2017-08-18] MEDS: PRENATAL VITAMINS W/ FOLIC ACID TABLET (FP) PO SCH (09:24)
[2017-08-18] MEDS: BACITRACIN 15 GM TUBE TOPICAL OINTMENT TP SCH (09:25)
--- NOTE | 2017-08-18 09:32 | PN ---
Progress Note (short form) - Note Progress Note: Pt s/p CR/casting Numbness improved. No significant discomfort. PE Last Vital Signs Temp Pulse Resp BP Pulse Ox 98.2 F 101 H 18 106/62 94 L 08/18/17 05:43 08/18/17 05:43 08/18/17 05:43 08/18/17 05:43 08/17/17 21:[address] Toes with cap refill/motion intact. Mildly decreased sensation to light touch great toe, second toe. Normal toes 3- 5. Films reviewed showing stable satisfactory alignment of the ankle fracture/ dislocation. A/p: Right ankle CR casting -I reviewed today's findings with Traci -continue cast -reviewed strict NWB, patient had been putting weight on cast -elevate for comfort and swelling -new films 2 weeks
[2017-08-18] MEDS: ALBUTEROL SO4 0.083% IH SOL 2.5 MG/3 ML VIAL.NEB. NEB PRN (10:21)
[2017-08-18] MEDS ORDERED: INSULIN (NOVOLOG) ASPART 100 UNITS/ML 10ML VIAL ONE (11:08)
[2017-08-18] MEDS: CALCIUM 500MG/VIT-D 200 UNITS COMBO TABLET (FP) PO SCH ×2 (11:38→21:38)
[2017-08-18] MEDS: ACETAMINOPHEN 325 MG TABLET (FP) PO PRN (16:34)
[2017-08-18] MEDS ORDERED: QUEtiapine FUMARATE 25 MG TABLET (FP) ONE (21:21)
[2017-08-18] MEDS: DOCUSATE SODIUM 100 MG CAPSULE (FP) PO SCH (21:37)
[2017-08-18] MEDS: traZODone HCL 50 MG TABLET (FP) PO SCH (21:38)
[2017-08-18] MEDS: THIAMINE HCL 100 MG TABLET (FP) PO SCH (21:38)
[2017-08-18] MEDS: diazePAM 5 MG TABLET PO SCH (21:38)
[2017-08-18] MEDS: SENNOSIDES 8.6MG TABLET (FP) PO SCH (21:38)
[2017-08-18] MEDS: QUEtiapine FUMARATE 50 MG TABLET PO SCH (21:39)
[2017-08-19] MEDS: metFORMIN HCL 500 MG TABLET (FP) PO SCH ×2 (06:45→17:00)
[2017-08-19] MEDS: PREGABALIN 50 MG CAPSULE PO SCH ×3 (06:45→21:31)
[2017-08-19] MEDS: INSULIN SLIDING SCALE (NOVOLOG) 1 VIAL SQ SCH ×4 (06:46→21:30)
[2017-08-19] MEDS: VITAMINS A AND D TOPICAL OINTMENT 60 GM TUBE TP SCH ×3 (06:46→17:08)
[2017-08-19] MEDS: ENOXAPARIN NA (PORCINE) 100 MG/1 ML DISP.SYRIN SQ SCH ×2 (06:46→17:00)
[2017-08-19] MEDS: ALBUTEROL SO4 0.083% IH SOL 2.5 MG/3 ML VIAL.NEB. NEB PRN ×2 (06:57→12:13)
--- NOTE | 2017-08-19 09:15 | PN ---
Progress Note (short form) - Note Progress Note: Subjective: The patient was seen at the bedside, she has no complaints at this time Current Medications Generic Name Dose Route Start Last Admin Trade Name Freq PRN Reason Stop Dose Admin Acetaminophen 650 mg 08/07/17 10:16 08/18/17 16:34 Tylenol - PO 650 mg Q6H PRN Administration PAIN LEVEL 1-5 Albuterol Sulfate 1 amp 08/09/17 16:01 08/19/17 06:57 Ventolin 0.083% Nebulizer Soln - NEB 1 amp Q4H PRN Administration SHORT OF BREATH/WHEEZING Bacitracin 1 applic 08/12/17 15:30 08/18/17 09:25 Bacitracin - TP 1 applic DAILY NI Administration Buprenorphine/Naloxone 2 each 08/07/17 11:15 08/18/17 21:54 Suboxone 8mg/2mg Sl Film - SL 2 each BID NI Administration Calcium Carbonate/Cholecalciferol 1 tab 08/07/17 22:00 08/18/17 21:38 Os-Eros 500+D - PO 1 tab BID@1200,2200 IN Administration Diazepam 10 mg 08/07/17 22:00 08/18/17 21:38 Valium - PO 10 mg HS NI Administration Docusate Sodium 300 mg 08/07/17 22:00 08/18/17 21:37 Colace - PO 300 mg HS NI Administration Enoxaparin Sodium 150 mg 08/14/17 06:00 08/19/17 06:46 Lovenox - SQ 150 mg BID@0600,1800 NI Administration Furosemide 80 mg 08/08/17 10:00 08/18/17 09:24 Lasix - PO 80 mg DAILY NI Administration Hydrocortisone 1 applic 08/13/17 22:24 08/13/17 23:59 Hytone 1% Cream - TP 1 applic BID PRN Administration itching Insulin Aspart 1 vial 08/07/17 11:00 08/19/17 06:46 Novolog Vial Sliding Scale - SQ 4 units ACHS NI Administration Protocol Lisinopril 20 mg 08/08/17 10:00 08/18/17 09:24 Prinivil PO 20 mg DAILY NI Administration Metformin HCl 500 mg 08/17/17 16:30 08/19/17 06:45 Glucophage - PO 500 mg BIDAC NI Administration Nystatin 1 applic 08/14/17 10:00 02/03/18 09:24 Nystop Powder - TP 1 applic DAILY NI Administration Ondansetron HCl 4 mg 08/07/17 10:05 Zofran Injection IVPUSH Q6H PRN NAUSEA AND/OR VOMITING Pregabalin 100 mg 08/07/17 14:00 08/19/17 06:45 Lyrica - PO 100 mg TID NI Administration Multivit/Folic Acid/Iron 1 tab 08/08/17 10:00 08/18/17 09:24 Vitamins (Sjr) - PO 1 tab DAILY NI Administration Quetiapine Fumarate 50 mg 08/07/17 22:00 08/18/17 21:39 Seroquel - PO 50 mg HS NI Administration Senna 2 tab 08/07/17 22:00 08/18/17 21:38 Senna - PO 2 tab HS NI Administration Thiamine HCl 100 mg 08/07/17 22:00 08/18/17 21:38 Vitamin B1 - PO 100 mg HS NI Administration Trazodone HCl 150 mg 08/07/17 22:00 08/18/17 21:38 Desyrel - PO 150 mg HS NI Administration Vitamin A/Vitamin D 1 applic 08/14/17 12:00 08/19/17 06:46 Vitamin A & D Top Oint - TP 1 applic Q6HPO NI Administration Objective: Vital Signs Period Temp Pulse Resp BP Sys/Puente Pulse Ox Last 24 Hr 97.6 F-98.3 F 106-119 18-20 109-119/55-64 94-94 Physical Exam: General: NAD, A&Ox3, morbidly obese Ext: Left lower extremity splint in place CBCD WBC 6.2 K/mm3 (4.0-10.0) 08/10/17 08:00 RBC 4.50 M/mm3 (3.60-5.2) 08/10/17 08:00 Hgb 12.5 GM/dL (10.7-15.3) D 08/10/17 08:00 Hct 38.9 % (32.4-45.2) D 08/10/17 08:00 MCV 86.4 fl (80-96) 08/10/17 08:00 MCHC 32.1 g/dl (32.0-36.0) 08/10/17 08:00 RDW 14.3 % (11.6-15.6) 08/10/17 08:00 Plt Count 285 K/MM3 (134-434) 08/10/17 08:00 MPV 8.1 fl (7.5-11.1) 08/10/17 08:00 CMP Sodium 141 mmol/L (136-145) 08/10/17 08:00 Potassium 4.2 mmol/L (3.5-5.1) 08/10/17 08:00 Chloride 103 mmol/L (98-107) 08/10/17 08:00 Carbon Dioxide 32 mmol/L (21-32) 08/10/17 08:00 Anion Gap 6 (8-16) L 08/10/17 08:00 BUN 23 mg/dL (7-18) H 08/10/17 08:00 Creatinine 0.7 mg/dL (0.55-1.02) 08/10/17 08:00 Creat Clearance w eGFR > 60 (>60) 08/08/17 06:30 Random Glucose 126 mg/dL (74-106) H 08/10/17 08:00 Calcium 8.9 mg/dL (8.5-10.1) 08/10/17 08:00 Total Bilirubin 0.5 mg/dL (0.2-1.0) 08/08/17 06:30 AST 26 U/L (15-37) 08/08/17 06:30 ALT 38 U/L (12-78) 08/08/17 06:30 Alkaline Phosphatase 58 U/L (45-117) 08/08/17 06:30 Total Protein 6.3 g/dl (6.4-8.2) L 08/08/17 06:30 Albumin 2.8 g/dl (3.4-5.0) L 08/08/17 06:30 CARDIAC ENZYMES Troponin I < 0.02 ng/ml (0.00-0.05) 08/08/17 21:40 Assessment: This is a 47 year old female with PMHx of HTN, hyperlipidemia, CHF , DVT s/p IVC filter, NIDDM, chronic leg ulcers, left big toe wound, polysubstance abuse, who presented to the ED after slipping on the [employer] driveway and twisting her left ankle. Plan: 1) Left posterior and lateral malleolus fracture/dislocation - S/p closed reduction and casting on 08/06/17 - Ambulating now with walker, strict NWB - Repeat x-rays in 2 weeks - Pain control with Naprosyn only per detox, will not continue on discharge - Appreciate ortho consult 2) Polysubstance abuse - Continue Suboxone, increased 08/03 - Valium prn - Trazodone 150mg po hs 3) Hx of DVT - S/p IVC filter - Lovenox 150mg sq bid (failed out patient xarelto?) 4) Chronic leg ulcers - Left great toe wound and neuropathy (Dr. Knox aware) - Bacitracin - Doxycycline (07/27-08/09). Complete total 14 days - Appreciate Dr. Knox consult 5) NIDDM - BGM ACHS - ISS ACHS 6) CHF - No evidence of exacerbation - Continue Lasix 7) F/E/N: - Diabetic/sodium controlled diet - Monitor electrolytes 8) Prophylaxis: - PT - On Lovenox 9) Dispo: - Awaiting SNF placement CODE STATUS: FULL CODE Visit type - Emergency Visit Emergency Visit: Yes ED Registration Date: 08/01/17 Care time: The patient presented to the Emergency Department on the above date and was hospitalized for further evaluation of their emergent condition. - New Patient This patient is new to me today: No - Critical Care Critical Care patient: No
[2017-08-19] MEDS ORDERED: PT OWN MED DRAWER 7, Y5N ONE ×2 (10:03→21:10)
[2017-08-19] MEDS: FUROSEMIDE 40 MG TABLET (FP) PO SCH (10:05)
[2017-08-19] MEDS: BUPRENORPHINE/NALOXONE 8 MG/2 MG FILM PACKET SL SCH ×2 (10:05→21:30)
[2017-08-19] MEDS: PRENATAL VITAMINS W/ FOLIC ACID TABLET (FP) PO SCH (10:05)
[2017-08-19] MEDS: LISINOPRIL 20 MG TABLET (FP) PO SCH (10:05)
[2017-08-19] MEDS: BACITRACIN 15 GM TUBE TOPICAL OINTMENT TP SCH (10:07)
[2017-08-19] MEDS: NYSTATIN POWDER 100,000 UNITS/GM - 15 GM TOPICAL POWDER TP SCH (10:07)
[2017-08-19] MEDS: CALCIUM 500MG/VIT-D 200 UNITS COMBO TABLET (FP) PO SCH ×2 (11:21→21:31)
[2017-08-19] MEDS ORDERED: INSULIN (NOVOLOG) ASPART 100 UNITS/ML 10ML VIAL ONE (17:12)
[2017-08-19] MEDS ORDERED: QUEtiapine FUMARATE 25 MG TABLET (FP) ONE (21:09)
[2017-08-19] MEDS: traZODone HCL 50 MG TABLET (FP) PO SCH (21:30)
[2017-08-19] MEDS: THIAMINE HCL 100 MG TABLET (FP) PO SCH (21:30)
[2017-08-19] MEDS: SENNOSIDES 8.6MG TABLET (FP) PO SCH (21:31)
[2017-08-19] MEDS: diazePAM 5 MG TABLET PO SCH (21:31)
[2017-08-19] MEDS: DOCUSATE SODIUM 100 MG CAPSULE (FP) PO SCH (21:31)
[2017-08-19] MEDS: QUEtiapine FUMARATE 50 MG TABLET PO SCH (21:34)
[2017-08-20] MEDS: VITAMINS A AND D TOPICAL OINTMENT 60 GM TUBE TP SCH ×5 (00:23→23:30)
[2017-08-20] MEDS ORDERED: PT OWN MED DRAWER 7, Y5N ONE ×6 (06:06→23:35)
[2017-08-20] MEDS: INSULIN SLIDING SCALE (NOVOLOG) 1 VIAL SQ SCH ×4 (06:21→21:29)
[2017-08-20] MEDS: PREGABALIN 50 MG CAPSULE PO SCH ×3 (06:21→21:24)
[2017-08-20] MEDS: ENOXAPARIN NA (PORCINE) 100 MG/1 ML DISP.SYRIN SQ SCH ×2 (06:21→17:46)
[2017-08-20 08:19] LABS: HEMATOCRIT 36.3 % (32.4-45.2); HEMOGLOBIN 11.7 GM/dL (10.7-15.3); MCH 27.8 pg (25.7-33.7); MCHC 32.2 g/dl (32.0-36.0); MEAN CELL VOLUME 86.3 fl (80-96); PLATELET COUNT 263 K/MM3 (134-434); RDW 14.8 % (11.6-15.6); WHITE BLOOD COUNT 6.1 K/mm3 (4.0-10.0)
[2017-08-20 08:41] LABS: ALBUMIN 3.4 g/dl (3.4-5.0); ANION GAP 10 (8-16); BILIRUBIN,TOTAL 0.3 mg/dL (0.2-1.0); BLOOD UREA NITROGEN 31 mg/dL (7-18); CALCIUM 9.6 mg/dL (8.5-10.1); CHLORIDE 101 mmol/L (98-107); CO2 28 mmol/L (21-32); CREATININE 0.8 mg/dL (0.55-1.02); GLUCOSE,RANDOM 166 mg/dL (74-106); POTASSIUM 3.9 mmol/L (3.5-5.1); SGOT/AST 21 U/L (15-37); SGPT/ALT 38 U/L (12-78); SODIUM 139 mmol/L (136-145)
[2017-08-20 08:42] LABS: ALK PHOS 58 U/L (45-117); TOT PROT 7.1 g/dl (6.4-8.2)
--- NOTE | 2017-08-20 09:03 | PN ---
Progress Note (short form) - Note Progress Note: Subjective: The patient was seen at the bedside, she has no complaints at this time Current Medications Generic Name Dose Route Start Last Admin Trade Name Freq PRN Reason Stop Dose Admin Acetaminophen 650 mg 08/07/17 10:16 08/18/17 16:34 Tylenol - PO 650 mg Q6H PRN Administration PAIN LEVEL 1-5 Albuterol Sulfate 1 amp 08/19/17 12:05 08/19/17 12:13 Ventolin 0.083% Nebulizer Soln - NEB 1 amp Q6H PRN Administration SHORT OF BREATH/WHEEZING Bacitracin 1 applic 08/12/17 15:30 08/19/17 10:07 Bacitracin - TP 1 applic DAILY NI Administration Buprenorphine/Naloxone 2 each 08/07/17 11:15 08/19/17 21:30 Suboxone 8mg/2mg Sl Film - SL 2 each BID NI Administration Calcium Carbonate/Cholecalciferol 1 tab 08/07/17 22:00 08/19/17 21:31 Os-Eros 500+D - PO 1 tab BID@1200,2200 IN Administration Diazepam 10 mg 08/07/17 22:00 08/19/17 21:31 Valium - PO 10 mg HS NI Administration Docusate Sodium 300 mg 08/07/17 22:00 08/19/17 21:31 Colace - PO 300 mg HS NI Administration Enoxaparin Sodium 150 mg 08/14/17 06:00 08/20/17 06:21 Lovenox - SQ 150 mg BID@0600,1800 NI Administration Furosemide 80 mg 08/08/17 10:00 08/19/17 10:05 Lasix - PO 80 mg DAILY NI Administration Hydrocortisone 1 applic 08/13/17 22:24 08/13/17 23:59 Hytone 1% Cream - TP 1 applic BID PRN Administration itching Insulin Aspart 1 vial 08/07/17 11:00 08/20/17 06:21 Novolog Vial Sliding Scale - SQ 2 units ACHS NI Administration Protocol Lisinopril 20 mg 08/08/17 10:00 08/19/17 10:05 Prinivil PO 20 mg DAILY NI Administration Metformin HCl 850 mg 08/19/17 18:46 08/20/17 06:47 Glucophage - PO 850 mg BIDAC NI Administration Nystatin 1 applic 08/14/17 10:00 02/04/18 10:07 Nystop Powder - TP 1 applic DAILY NI Administration Ondansetron HCl 4 mg 08/07/17 10:05 Zofran Injection IVPUSH Q6H PRN NAUSEA AND/OR VOMITING Pregabalin 100 mg 08/07/17 14:00 08/20/17 06:21 Lyrica - PO 100 mg TID NI Administration Multivit/Folic Acid/Iron 1 tab 08/08/17 10:00 08/19/17 10:05 Vitamins (Sjr) - PO 1 tab DAILY NI Administration Quetiapine Fumarate 50 mg 08/07/17 22:00 08/19/17 21:34 Seroquel - PO 50 mg HS NI Administration Senna 2 tab 08/07/17 22:00 08/19/17 21:31 Senna - PO 2 tab HS NI Administration Thiamine HCl 100 mg 08/07/17 22:00 08/19/17 21:30 Vitamin B1 - PO 100 mg HS NI Administration Trazodone HCl 150 mg 08/07/17 22:00 08/19/17 21:30 Desyrel - PO 150 mg HS NI Administration Vitamin A/Vitamin D 1 applic 08/14/17 12:00 08/20/17 06:23 Vitamin A & D Top Oint - TP 1 applic Q6HPO NI Administration Objective: Vital Signs Period Temp Pulse Resp BP Sys/Puente Pulse Ox Last 24 Hr 98 F-98.9 F 94-114 18-18 114-142/66-79 94 Physical Exam: General: NAD, A&Ox3, morbidly obese Ext: Left lower extremity splint in place CBCD WBC 6.1 K/mm3 (4.0-10.0) 08/20/17 07:15 RBC 4.20 M/mm3 (3.60-5.2) 08/20/17 07:15 Hgb 11.7 GM/dL (10.7-15.3) 08/20/17 07:15 Hct 36.3 % (32.4-45.2) 08/20/17 07:15 MCV 86.3 fl (80-96) 08/20/17 07:15 MCHC 32.2 g/dl (32.0-36.0) 08/20/17 07:15 RDW 14.8 % (11.6-15.6) 08/20/17 07:15 Plt Count 263 K/MM3 (134-434) 08/20/17 07:15 MPV 9.0 fl (7.5-11.1) D 08/20/17 07:15 CMP Sodium 139 mmol/L (136-145) 08/20/17 07:15 Potassium 3.9 mmol/L (3.5-5.1) 08/20/17 07:15 Chloride 101 mmol/L (98-107) 08/20/17 07:15 Carbon Dioxide 28 mmol/L (21-32) 08/20/17 07:15 Anion Gap 10 (8-16) 08/20/17 07:15 BUN 31 mg/dL (7-18) H 08/20/17 07:15 Creatinine 0.8 mg/dL (0.55-1.02) 08/20/17 07:15 Creat Clearance w eGFR > 60 (>60) 08/20/17 07:15 Random Glucose 166 mg/dL (74-106) H 08/20/17 07:15 Calcium 9.6 mg/dL (8.5-10.1) 08/20/17 07:15 Total Bilirubin 0.3 mg/dL (0.2-1.0) D 08/20/17 07:15 AST 21 U/L (15-37) 08/20/17 07:15 ALT 38 U/L (12-78) 08/20/17 07:15 Alkaline Phosphatase 58 U/L (45-117) 08/20/17 07:15 Total Protein 7.1 g/dl (6.4-8.2) 08/20/17 07:15 Albumin 3.4 g/dl (3.4-5.0) 08/20/17 07:15 CARDIAC ENZYMES Troponin I < 0.02 ng/ml (0.00-0.05) 08/08/17 21:40 Assessment: This is a 47 year old female with PMHx of HTN, hyperlipidemia, CHF , DVT s/p IVC filter, NIDDM, chronic leg ulcers, left big toe wound, polysubstance abuse, who presented to the ED after slipping on the [place] driveway and twisting her left ankle. Plan: 1) Left posterior and lateral malleolus fracture/dislocation - S/p closed reduction and casting on 08/06/17 - Ambulating now with walker, strict NWB - Repeat x-rays in 2 weeks - Pain control with Naprosyn only per detox, will not continue on discharge - Appreciate ortho consult 2) Polysubstance abuse - Continue Suboxone, increased 08/03 - Valium prn - Trazodone 150mg po hs 3) Hx of DVT - S/p IVC filter - Lovenox 150mg sq bid (failed out patient xarelto?) 4) Chronic leg ulcers - Left great toe wound and neuropathy (Dr. Knox aware) - Bacitracin - Doxycycline (07/27-08/09). Complete total 14 days - Appreciate Dr. Knox consult 5) NIDDM - BGM ACHS - ISS ACHS - Increased Metformin to 875mg bid 6) CHF - No evidence of exacerbation - Continue Lasix 7) F/E/N: - Diabetic/sodium controlled diet - Monitor electrolytes 8) Prophylaxis: - PT - On Lovenox 9) Dispo: - Awaiting SNF placement CODE STATUS: FULL CODE Visit type - Emergency Visit Emergency Visit: Yes ED Registration Date: 08/01/17 Care time: The patient presented to the Emergency Department on the above date and was hospitalized for further evaluation of their emergent condition. - New Patient This patient is new to me today: No - Critical Care Critical Care patient: No
[2017-08-20] MEDS: BACITRACIN 15 GM TUBE TOPICAL OINTMENT TP SCH (09:43)
[2017-08-20] MEDS: FUROSEMIDE 40 MG TABLET (FP) PO SCH (09:44)
[2017-08-20] MEDS: LISINOPRIL 20 MG TABLET (FP) PO SCH (09:44)
[2017-08-20] MEDS: PRENATAL VITAMINS W/ FOLIC ACID TABLET (FP) PO SCH (09:44)
[2017-08-20] MEDS: NYSTATIN POWDER 100,000 UNITS/GM - 15 GM TOPICAL POWDER TP SCH (09:45)
[2017-08-20] MEDS: BUPRENORPHINE/NALOXONE 8 MG/2 MG FILM PACKET SL SCH ×2 (09:45→21:23)
[2017-08-20] MEDS: CALCIUM 500MG/VIT-D 200 UNITS COMBO TABLET (FP) PO SCH ×2 (11:55→21:24)
[2017-08-20] MEDS ORDERED: QUEtiapine FUMARATE 25 MG TABLET (FP) ONE (21:00)
[2017-08-20] MEDS: DOCUSATE SODIUM 100 MG CAPSULE (FP) PO SCH (21:22)
[2017-08-20] MEDS: traZODone HCL 50 MG TABLET (FP) PO SCH (21:22)
[2017-08-20] MEDS: THIAMINE HCL 100 MG TABLET (FP) PO SCH (21:22)
[2017-08-20] MEDS: SENNOSIDES 8.6MG TABLET (FP) PO SCH (21:23)
[2017-08-20] MEDS: QUEtiapine FUMARATE 50 MG TABLET PO SCH (21:24)
[2017-08-20] MEDS: diazePAM 5 MG TABLET PO SCH (21:29)
[2017-08-20] MEDS: ALBUTEROL SO4 0.083% IH SOL 2.5 MG/3 ML VIAL.NEB. NEB PRN (23:33)
[2017-08-21] MEDS ORDERED: PT OWN MED DRAWER 7, Y5N ONE ×4 (05:52→16:56)
[2017-08-21] MEDS: ENOXAPARIN NA (PORCINE) 100 MG/1 ML DISP.SYRIN SQ SCH ×2 (06:27→17:37)
[2017-08-21] MEDS: PREGABALIN 50 MG CAPSULE PO SCH ×3 (06:30→21:28)
[2017-08-21] MEDS: INSULIN SLIDING SCALE (NOVOLOG) 1 VIAL SQ SCH ×4 (06:31→21:30)
[2017-08-21] MEDS: VITAMINS A AND D TOPICAL OINTMENT 60 GM TUBE TP SCH ×3 (06:32→23:00)
[2017-08-21] MEDS: FUROSEMIDE 40 MG TABLET (FP) PO SCH (09:22)
[2017-08-21] MEDS: LISINOPRIL 20 MG TABLET (FP) PO SCH (09:23)
[2017-08-21] MEDS ORDERED: BUPRENORPHINE/NALOXONE 8 MG/2 MG FILM PACKET SL ONE (09:46)
--- NOTE | 2017-08-21 10:00 | PN ---
S Progress Note (SOAP) Subjective: pain well controlled, agrees with decreasing total daily suboxone dose to 8mg tid. still no owr on custodial placement becasue of suboxoen issue Objective: 08/21/17 09:58 Vital Signs - 24 hr 08/20/17 08/20/17 08/20/17 15:05 19:00 21:00 Temperature 99.3 F 98.6 F Pulse Rate 116 H 82 Respiratory 18 18 18 Rate Blood Pressure 113/78 118/68 O2 Sat by Pulse 94 L Oximetry (%) 08/21/17 05:54 Temperature 98.2 F Pulse Rate 93 H Respiratory 18 Rate Blood Pressure 132/70 O2 Sat by Pulse Oximetry (%) Laboratory Results - last 24 hr 08/20/17 08/20/17 08/20/17 11:41 17:57 21:11 POC Glucometer 202 296 181 08/21/17 06:27 POC Glucometer 149 Active Medications Generic Name Dose Route Start Last Admin Trade Name Freq PRN Reason Stop Dose Admin Acetaminophen 650 mg 08/07/17 10:16 08/18/17 16:34 Tylenol - PO 650 mg Q6H PRN Administration PAIN LEVEL 1-5 Albuterol Sulfate 1 amp 08/19/17 12:05 08/20/17 23:33 Ventolin 0.083% Nebulizer Soln - NEB 1 amp Q6H PRN Administration SHORT OF BREATH/WHEEZING Bacitracin 1 applic 08/12/17 15:30 08/20/17 09:43 Bacitracin - TP 1 applic DAILY NI Administration Buprenorphine/Naloxone 1 each 08/21/17 14:00 Suboxone 8mg/2mg Sl Film - SL TID NI Calcium Carbonate/Cholecalciferol 1 tab 08/07/17 22:00 08/20/17 21:24 Os-Eros 500+D - PO 1 tab BID@1200,2200 NI Administration Diazepam 10 mg 08/07/17 22:00 08/20/17 21:29 Valium - PO 10 mg HS NI Administration Docusate Sodium 300 mg 08/07/17 22:00 08/20/17 21:22 Colace - PO 300 mg HS NI Administration Enoxaparin Sodium 150 mg 08/14/17 06:00 08/21/17 06:27 Lovenox - SQ 150 mg BID@0600,1800 NI Administration Furosemide 80 mg 08/08/17 10:00 08/21/17 09:22 Lasix - PO 80 mg DAILY NI Administration Hydrocortisone 1 applic 08/13/17 22:24 08/13/17 23:59 Hytone 1% Cream - TP 1 applic BID PRN Administration itching Insulin Aspart 1 vial 08/07/17 11:00 08/21/17 06:31 Novolog Vial Sliding Scale - SQ Not Given ACHS [facility] Protocol Lisinopril 20 mg 08/08/17 10:00 08/21/17 09:23 Prinivil PO 20 mg DAILY NI Administration Metformin HCl 850 mg 08/19/17 18:46 08/21/17 06:30 Glucophage - PO 850 mg BIDAC NI Administration Nystatin 1 applic 08/14/17 10:00 08/20/17 09:45 Nystop Powder - TP 1 applic DAILY NI Administration Ondansetron HCl 4 mg 08/07/17 10:05 Zofran Injection IVPUSH Q6H PRN NAUSEA AND/OR VOMITING Pregabalin 100 mg 08/07/17 14:00 08/21/17 06:30 Lyrica - PO 100 mg TID NI Administration Multivit/Folic Acid/Iron 1 tab 08/08/17 10:00 08/20/17 09:44 Vitamins (Sjr) - PO 1 tab DAILY NI Administration Quetiapine Fumarate 50 mg 08/07/17 22:00 08/20/17 21:24 Seroquel - PO 50 mg HS NI Administration Senna 2 tab 08/07/17 22:00 08/20/17 21:23 Senna - PO 2 tab HS NI Administration Thiamine HCl 100 mg 08/07/17 22:00 08/20/17 21:22 Vitamin B1 - PO 100 mg HS NI Administration Trazodone HCl 150 mg 08/07/17 22:00 08/20/17 21:22 Desyrel - PO 150 mg HS NI Administration Vitamin A/Vitamin D 1 applic 08/14/17 12:00 08/21/17 06:32 Vitamin A & D Top Oint - TP 1 applic Q6HPO NI Administration Assessment: 08/21/17 09:59 d/c valium, patient is on trazodone, pain controlled, awaitign custodial placement change subxoeon to 8mg tid , patient is in agrement
[2017-08-21] MEDS: BACITRACIN 15 GM TUBE TOPICAL OINTMENT TP SCH (10:51)
[2017-08-21] MEDS: NYSTATIN POWDER 100,000 UNITS/GM - 15 GM TOPICAL POWDER TP SCH (10:51)
[2017-08-21] MEDS: PRENATAL VITAMINS W/ FOLIC ACID TABLET (FP) PO SCH (11:00)
[2017-08-21] MEDS: CALCIUM 500MG/VIT-D 200 UNITS COMBO TABLET (FP) PO SCH ×2 (11:39→21:29)
--- NOTE | 2017-08-21 14:21 | PN ---
Physical Exam: SUBJECTIVE: Patient seen and examined oob to chair. OBJECTIVE: Vital Signs Period Temp Pulse Resp BP Sys/Puente Pulse Ox Last 24 Hr 98.2 F-99.3 F 82-116 18-18 113-132/61-78 94 GENERAL: The patient is awake, alert, and fully oriented. LUNGS: CTA HEART: S1, S2, RRR ABDOMEN: obese, soft, nontender, nondistended LEFT LOWER EXTREMITY: soft cast/splint CBCD WBC 6.1 K/mm3 (4.0-10.0) 08/20/17 07:15 RBC 4.20 M/mm3 (3.60-5.2) 08/20/17 07:15 Hgb 11.7 GM/dL (10.7-15.3) 08/20/17 07:15 Hct 36.3 % (32.4-45.2) 08/20/17 07:15 MCV 86.3 fl (80-96) 08/20/17 07:15 MCHC 32.2 g/dl (32.0-36.0) 08/20/17 07:15 RDW 14.8 % (11.6-15.6) 08/20/17 07:15 Plt Count 263 K/MM3 (134-434) 08/20/17 07:15 MPV 9.0 fl (7.5-11.1) D 08/20/17 07:15 CMP Sodium 139 mmol/L (136-145) 08/20/17 07:15 Potassium 3.9 mmol/L (3.5-5.1) 08/20/17 07:15 Chloride 101 mmol/L (98-107) 08/20/17 07:15 Carbon Dioxide 28 mmol/L (21-32) 08/20/17 07:15 Anion Gap 10 (8-16) 08/20/17 07:15 BUN 31 mg/dL (7-18) H 08/20/17 07:15 Creatinine 0.8 mg/dL (0.55-1.02) 08/20/17 07:15 Creat Clearance w eGFR > 60 (>60) 08/20/17 07:15 Calcium 9.6 mg/dL (8.5-10.1) 08/20/17 07:15 Total Bilirubin 0.3 mg/dL (0.2-1.0) D 08/20/17 07:15 AST 21 U/L (15-37) 08/20/17 07:15 ALT 38 U/L (12-78) 08/20/17 07:15 Alkaline Phosphatase 58 U/L (45-117) 08/20/17 07:15 Total Protein 7.1 g/dl (6.4-8.2) 08/20/17 07:15 Albumin 3.4 g/dl (3.4-5.0) 08/20/17 07:15 Laboratory Results - last 24 hr 08/20/17 08/20/17 08/21/17 17:57 21:11 06:27 POC Glucometer 296 181 149 08/21/17 11:17 POC Glucometer 172 Active Medications Generic Name Dose Route Start Last Admin Trade Name Freq PRN Reason Stop Dose Admin Acetaminophen 650 mg 08/07/17 10:16 08/18/17 16:34 Tylenol - PO 650 mg Q6H PRN Administration PAIN LEVEL 1-5 Albuterol Sulfate 1 amp 08/19/17 12:05 08/20/17 23:33 Ventolin 0.083% Nebulizer Soln - NEB 1 amp Q6H PRN Administration SHORT OF BREATH/WHEEZING Bacitracin 1 applic 08/12/17 15:30 08/21/17 10:51 Bacitracin - TP 1 applic DAILY NI Administration Buprenorphine/Naloxone 1 each 08/21/17 14:00 Suboxone 8mg/2mg Sl Film - SL TID NI Calcium Carbonate/Cholecalciferol 1 tab 08/07/17 22:00 08/21/17 11:39 Os-Eros 500+D - PO 1 tab BID@1200,2200 NI Administration Docusate Sodium 300 mg 08/07/17 22:00 08/20/17 21:22 Colace - PO 300 mg HS NI Administration Enoxaparin Sodium 150 mg 08/14/17 06:00 08/21/17 06:27 Lovenox - SQ 150 mg BID@0600,1800 NI Administration Furosemide 80 mg 08/08/17 10:00 08/21/17 09:22 Lasix - PO 80 mg DAILY NI Administration Hydrocortisone 1 applic 08/13/17 22:24 08/13/17 23:59 Hytone 1% Cream - TP 1 applic BID PRN Administration itching Insulin Aspart 1 vial 08/07/17 11:00 08/21/17 11:41 Novolog Vial Sliding Scale - SQ 2 units ACHS NI Administration Protocol Lisinopril 20 mg 08/08/17 10:00 08/21/17 09:23 Prinivil PO 20 mg DAILY NI Administration Metformin HCl 850 mg 08/19/17 18:46 08/21/17 06:30 Glucophage - PO 850 mg BIDAC NI Administration Nystatin 1 applic 08/14/17 10:00 08/21/17 10:51 Nystop Powder - TP 1 applic DAILY NI Administration Ondansetron HCl 4 mg 08/07/17 10:05 Zofran Injection IVPUSH Q6H PRN NAUSEA AND/OR VOMITING Pregabalin 150 mg 08/21/17 10:01 08/21/17 13:47 Lyrica - PO 150 mg TID NI Administration Multivit/Folic Acid/Iron 1 tab 08/08/17 10:00 08/20/17 09:44 Vitamins (Sjr) - PO 1 tab DAILY NI Administration Quetiapine Fumarate 50 mg 08/07/17 22:00 08/20/17 21:24 Seroquel - PO 50 mg HS NI Administration Senna 2 tab 08/07/17 22:00 08/20/17 21:23 Senna - PO 2 tab HS NI Administration Thiamine HCl 100 mg 08/07/17 22:00 08/20/17 21:22 Vitamin B1 - PO 100 mg HS NI Administration Trazodone HCl 150 mg 08/07/17 22:00 08/20/17 21:22 Desyrel - PO 150 mg HS NI Administration Vitamin A/Vitamin D 1 applic 08/14/17 12:00 08/21/17 13:00 Vitamin A & D Top Oint - TP 1 applic Q6HPO NI Administration ASSESSMENT/PLAN 47 year-old female with a PMH significant for HTN, HLD, CHF, DVT s/p IVC filter , chronic leg ulcers, left big toe wound, and polysubstance abuse on suboxone. Admitted for left ankle fracture. Left posterior and lateral malleolus fracture/dislocation --s/p closed reduction and casting on 08/06/17 --ambulating now with walker, strict NWB --2/5 xray: no gross interval change --new films in 2 weeks Polysubstance abuse --followed by Dr. Tee --continue trazadone, seroquel, valium, suboxone TID, lyrica h/o DVT --s/p IVC filter --continue full dose lovenox Chronic leg ulcers --left great toe wound --bacitracin --completed 14-day course doxycycline (07/27-08/09) --seen and evaluated by vascular Dr. Knox NIDDM --continue metformin --Novolog sliding scale CHF --continue Lasix PO Hypertension --continue lisinopril Hyperlipidemia --not on medication FEN Fluids: PO intake adequate Electrolytes: replete as indicated Nutrition: low sodium, diabetic DVT prophylaxis: on full dose Lovenox Physical therapy Dispo: awaiting placement to a facility. Full Code. Visit type - Emergency Visit Emergency Visit: Yes ED Registration Date: 08/01/17 Care time: The patient presented to the Emergency Department on the above date and was hospitalized for further evaluation of their emergent condition. - New Patient This patient is new to me today: No - Critical Care Critical Care patient: No
[2017-08-21] MEDS: BUPRENORPHINE/NALOXONE 8 MG/2 MG FILM PACKET SL SCH ×2 (15:20→21:31)
[2017-08-21] MEDS: ALBUTEROL SO4 0.083% IH SOL 2.5 MG/3 ML VIAL.NEB. NEB PRN (19:35)
[2017-08-21] MEDS ORDERED: QUEtiapine FUMARATE 25 MG TABLET (FP) ONE (21:23)
[2017-08-21] MEDS: THIAMINE HCL 100 MG TABLET (FP) PO SCH (21:28)
[2017-08-21] MEDS: traZODone HCL 50 MG TABLET (FP) PO SCH (21:28)
[2017-08-21] MEDS: DOCUSATE SODIUM 100 MG CAPSULE (FP) PO SCH (21:29)
[2017-08-21] MEDS: QUEtiapine FUMARATE 50 MG TABLET PO SCH (21:29)
[2017-08-21] MEDS: SENNOSIDES 8.6MG TABLET (FP) PO SCH (21:30)
[2017-08-22] MEDS: PREGABALIN 50 MG CAPSULE PO SCH ×3 (06:13→21:47)
[2017-08-22] MEDS: ENOXAPARIN NA (PORCINE) 100 MG/1 ML DISP.SYRIN SQ SCH ×2 (06:13→17:33)
[2017-08-22] MEDS: BUPRENORPHINE/NALOXONE 8 MG/2 MG FILM PACKET SL SCH ×3 (06:13→21:50)
[2017-08-22] MEDS: INSULIN SLIDING SCALE (NOVOLOG) 1 VIAL SQ SCH ×4 (06:14→21:50)
[2017-08-22] MEDS: VITAMINS A AND D TOPICAL OINTMENT 60 GM TUBE TP SCH ×2 (06:15→12:32)
[2017-08-22] MEDS ORDERED: INSULIN (NOVOLOG) ASPART 100 UNITS/ML 10ML VIAL ONE (06:55)
[2017-08-22 08:27] LABS: ALBUMIN 4.2 g/dl (3.4-5.0); ANION GAP 13 (8-16); BILIRUBIN,TOTAL 0.4 mg/dL (0.2-1.0); BLOOD UREA NITROGEN 39 mg/dL (7-18); CHLORIDE 98 mmol/L (98-107); CO2 26 mmol/L (21-32); CREATININE 1.5 mg/dL (0.55-1.02); GLUCOSE,RANDOM 197 mg/dL (74-106); MAGNESIUM 1.8 mg/dL (1.8-2.4); POTASSIUM 4.2 mmol/L (3.5-5.1); SGOT/AST 21 U/L (15-37); SGPT/ALT 47 U/L (12-78); SODIUM 137 mmol/L (136-145); TOT PROT 8.3 g/dl (6.4-8.2)
[2017-08-22 08:28] LABS: ALK PHOS 73 U/L (45-117)
[2017-08-22 08:31] LABS: BASO % 0.7 % (0-2.0); EOS % 4.3 % (0-4.5); HEMATOCRIT 41.6 % (32.4-45.2); HEMOGLOBIN 13.4 GM/dL (10.7-15.3); LYMPH % 31.8 % (8-40); MCH 27.8 pg (25.7-33.7); MCHC 32.2 g/dl (32.0-36.0); MEAN CELL VOLUME 86.4 fl (80-96); MEAN PLT VOLUME 8.9 fl (7.5-11.1); MONO % 9.2 % (3.8-10.2); PLATELET COUNT 340 K/MM3 (134-434); RBC 4.81 M/mm3 (3.60-5.2); RDW 14.9 % (11.6-15.6); WHITE BLOOD COUNT 9.1 K/mm3 (4.0-10.0)
--- NOTE | 2017-08-22 09:02 | PN ---
Physical Exam: SUBJECTIVE: Patient seen and examined oob to chair. Both legs dependent. Encouraged patient to keep them elevated and reinforced non-weight bearing. OBJECTIVE: Vital Signs Period Temp Pulse Resp BP Sys/Puente Pulse Ox Last 24 Hr 97.7 F-98.7 F 102-112 18-20 107-134/61-87 GENERAL: The patient is awake, alert, and fully oriented. LUNGS: CTA HEART: S1, S2, RRR ABDOMEN: obese, soft, nontender, nondistended LEFT LOWER EXTREMITY: soft cast/splint; toes pink and warm RIGHT LOWER EXTREMITY: 1+ edema, mild skin excoriations, no sign of cellulitis Laboratory Results - last 24 hr 08/21/17 08/21/17 08/21/17 11:17 17:00 21:27 WBC RBC Hgb Hct MCV MCH MCHC RDW Plt Count MPV Neutrophils % Lymphocytes % Monocytes % Eosinophils % Basophils % Sodium Potassium Chloride Carbon Dioxide Anion Gap BUN Creatinine Creat Clearance w eGFR POC Glucometer 172 240 183 Random Glucose Calcium Magnesium Total Bilirubin AST ALT Alkaline Phosphatase Total Protein Albumin 08/22/17 08/22/17 08/22/17 06:06 06:35 06:35 WBC 9.1 D RBC 4.81 Hgb 13.4 D Hct 41.6 MCV 86.4 MCH 27.8 MCHC 32.2 RDW 14.9 Plt Count 340 D MPV 8.9 Neutrophils % 54.0 Lymphocytes % 31.8 D Monocytes % 9.2 Eosinophils % 4.3 Basophils % 0.7 Sodium 137 Potassium 4.2 Chloride 98 Carbon Dioxide 26 Anion Gap 13 BUN 39 H Creatinine 1.5 H Creat Clearance w eGFR 37.55 POC Glucometer 226 Random Glucose 197 H Calcium 10.0 Magnesium 1.8 Total Bilirubin 0.4 D AST 21 ALT 47 Alkaline Phosphatase 73 Total Protein 8.3 H Albumin 4.2 Active Medications Generic Name Dose Route Start Last Admin Trade Name Freq PRN Reason Stop Dose Admin Acetaminophen 650 mg 08/07/17 10:16 08/18/17 16:34 Tylenol - PO 650 mg Q6H PRN Administration PAIN LEVEL 1-5 Albuterol Sulfate 1 amp 08/19/17 12:05 08/21/17 19:35 Ventolin 0.083% Nebulizer Soln - NEB 1 amp Q6H PRN Administration SHORT OF BREATH/WHEEZING Bacitracin 1 applic 08/12/17 15:30 08/21/17 10:51 Bacitracin - TP 1 applic DAILY NI Administration Buprenorphine/Naloxone 1 each 08/21/17 14:00 08/22/17 06:13 Suboxone 8mg/2mg Sl Film - SL 1 each TID NI Administration Calcium Carbonate/Cholecalciferol 1 tab 08/07/17 22:00 08/21/17 21:29 Os-Eros 500+D - PO 1 tab BID@1200,2200 NI Administration Docusate Sodium 300 mg 08/07/17 22:00 08/21/17 21:29 Colace - PO 300 mg HS NI Administration Enoxaparin Sodium 150 mg 08/14/17 06:00 08/22/17 06:13 Lovenox - SQ 150 mg BID@0600,1800 NI Administration Furosemide 80 mg 08/08/17 10:00 08/21/17 09:22 Lasix - PO 80 mg DAILY NI Administration Hydrocortisone 1 applic 08/13/17 22:24 08/13/17 23:59 Hytone 1% Cream - TP 1 applic BID PRN Administration itching Insulin Aspart 1 vial 08/07/17 11:00 08/22/17 06:14 Novolog Vial Sliding Scale - SQ 6 units ACHS NI Administration Protocol Lisinopril 20 mg 08/08/17 10:00 08/21/17 09:23 Prinivil PO 20 mg DAILY NI Administration Metformin HCl 850 mg 08/19/17 18:46 08/22/17 06:13 Glucophage - PO 850 mg BIDAC NI Administration Nystatin 1 applic 08/14/17 10:00 08/21/17 10:51 Nystop Powder - TP 1 applic DAILY NI Administration Ondansetron HCl 4 mg 08/07/17 10:05 Zofran Injection IVPUSH Q6H PRN NAUSEA AND/OR VOMITING Pregabalin 150 mg 08/21/17 10:01 08/22/17 06:13 Lyrica - PO 150 mg TID NI Administration Multivit/Folic Acid/Iron 1 tab 08/08/17 10:00 08/21/17 11:00 Vitamins (Sjr) - PO 1 tab DAILY NI Administration Quetiapine Fumarate 50 mg 08/07/17 22:00 08/21/17 21:29 Seroquel - PO 50 mg HS NI Administration Senna 2 tab 08/07/17 22:00 08/21/17 21:30 Senna - PO 2 tab HS NI Administration Thiamine HCl 100 mg 08/07/17 22:00 08/21/17 21:28 Vitamin B1 - PO 100 mg HS NI Administration Trazodone HCl 150 mg 08/07/17 22:00 08/21/17 21:28 Desyrel - PO 150 mg HS NI Administration Vitamin A/Vitamin D 1 applic 08/14/17 12:00 08/22/17 06:15 Vitamin A & D Top Oint - TP 1 applic Q6HPO NI Administration ASSESSMENT/PLAN 47 year-old female with a PMH significant for HTN, HLD, CHF, DVT s/p IVC filter , chronic leg ulcers, left big toe wound, and polysubstance abuse on suboxone. Admitted for left ankle fracture. Left posterior and lateral malleolus fracture/dislocation --s/p closed reduction and casting on 08/06/17 --ambulating now with walker, strict NWB --2/ xray: no gross interval change --new films in 2 weeks Polysubstance abuse --followed by Dr. Tee --continue trazadone, seroquel, valium, suboxone TID, lyrica h/o DVT --s/p IVC filter --continue full dose lovenox Chronic leg ulcers --left great toe wound --completed 14-day course doxycycline (07/27-08/09) --seen and evaluated by vascular Dr. Knox Elevated creatinine --bump in Cr to 1.5 --stop metformin, lasix, lisinopril --check CPK, lactic acid NIDDM --Novolog sliding scale --hold metformin CHF --hold Lasix Hypertension --hold lisinopril Hyperlipidemia --not on medication FEN Fluids: PO intake adequate Electrolytes: replete as indicated Nutrition: low sodium, diabetic DVT prophylaxis: on full dose Lovenox Physical therapy Dispo: awaiting placement to a facility. Full Code. Visit type - Emergency Visit Emergency Visit: Yes ED Registration Date: 08/01/17 Care time: The patient presented to the Emergency Department on the above date and was hospitalized for further evaluation of their emergent condition. - New Patient This patient is new to me today: No - Critical Care Critical Care patient: No
[2017-08-22] MEDS ORDERED: PT OWN MED DRAWER 7, Y5N ONE (09:06)
[2017-08-22] MEDS: LISINOPRIL 20 MG TABLET (FP) PO SCH (09:14)
[2017-08-22] MEDS: FUROSEMIDE 40 MG TABLET (FP) PO SCH (09:14)
--- NOTE | 2017-08-22 11:12 | PN ---
S Progress Note (SOAP) Subjective: no complaints, pain controlled, requesting decrease in suboxone to 8mg tid for pain and oud, would like to return to 16mg daily dose when better. going to [place] in am Objective: 08/23/17 18:07 Vital Signs - 24 hr 08/22/17 08/23/17 08/23/17 20:02 00:00 06:00 Temperature 98.4 F 98.6 F Pulse Rate 92 H Respiratory 18 20 20 Rate Blood Pressure 104/45 132/78 O2 Sat by Pulse 94 L Oximetry (%) 08/23/17 08/23/17 08/23/17 08:21 08:52 15:15 Temperature 98.2 F 98.5 F Pulse Rate 102 H Respiratory 20 Rate Blood Pressure 102/65 O2 Sat by Pulse 97 Oximetry (%) Laboratory Tests 08/01/17 08/01/17 08/01/17 12:25 12:25 19:30 WBC 10.7 H RBC 4.82 Hgb 13.4 Hct 41.7 MCV 86.5 MCH 27.7 MCHC 32.1 RDW 14.8 Plt Count 252 MPV 8.3 Neutrophils % 75.0 Lymphocytes % 16.0 Monocytes % 6.9 Eosinophils % 1.1 Basophils % 1.0 PT with INR INR PTT (Actin FS) Sodium 141 Potassium 4.8 Chloride 106 Carbon Dioxide 26 Anion Gap 9 BUN 24 H Creatinine 1.0 Creat Clearance w eGFR 59.96 POC Glucometer Random Glucose 189 H Lactic Acid Calcium 8.7 Phosphorus Magnesium Total Bilirubin 0.2 AST 16 D ALT 32 Alkaline Phosphatase 66 Creatine Kinase Troponin I Total Protein 7.0 Albumin 3.5 Blood Type A POSITIVE Antibody Screen Negative 08/01/17 08/02/17 08/02/17 22:05 06:23 08:00 WBC 10.4 H RBC 4.46 Hgb 12.2 Hct 39.3 MCV 88.2 MCH 27.4 MCHC 31.1 L RDW 15.3 Plt Count 247 MPV 8.2 Neutrophils % 68.4 Lymphocytes % 18.2 Monocytes % 10.4 H Eosinophils % 2.4 D Basophils % 0.6 PT with INR INR PTT (Actin FS) Sodium Potassium Chloride Carbon Dioxide Anion Gap BUN Creatinine Creat Clearance w eGFR POC Glucometer 208 157 Random Glucose Lactic Acid Calcium Phosphorus Magnesium Total Bilirubin AST ALT Alkaline Phosphatase Creatine Kinase Troponin I Total Protein Albumin Blood Type Antibody Screen 08/02/17 08/02/17 08/02/17 08:00 08:00 11:16 WBC RBC Hgb Hct MCV MCH MCHC RDW Plt Count MPV Neutrophils % Lymphocytes % Monocytes % Eosinophils % Basophils % PT with INR 12.00 H INR 1.06 PTT (Actin FS) 27.8 Sodium 141 Potassium 5.2 H Chloride 107 Carbon Dioxide 26 Anion Gap 8 BUN 36 H Creatinine 1.2 H Creat Clearance w eGFR 48.58 POC Glucometer 214 Random Glucose 160 H Lactic Acid Calcium 8.6 Phosphorus 5.8 H Magnesium 2.0 Total Bilirubin 0.6 D AST 16 ALT 28 Alkaline Phosphatase 66 Creatine Kinase Troponin I Total Protein 6.6 Albumin 3.2 L Blood Type Antibody Screen 08/02/17 08/02/17 08/03/17 16:49 21:40 06:47 WBC RBC Hgb Hct MCV MCH MCHC RDW Plt Count MPV Neutrophils % Lymphocytes % Monocytes % Eosinophils % Basophils % PT with INR INR PTT (Actin FS) Sodium Potassium Chloride Carbon Dioxide Anion Gap BUN Creatinine Creat Clearance w eGFR POC Glucometer 184 187 165 Random Glucose Lactic Acid Calcium Phosphorus Magnesium Total Bilirubin AST ALT Alkaline Phosphatase Creatine Kinase Troponin I Total Protein Albumin Blood Type Antibody Screen 08/03/17 08/03/17 08/03/17 07:00 07:00 11:15 WBC 7.2 D RBC 4.36 Hgb 12.1 Hct 38.0 MCV 87.2 MCH 27.8 MCHC 31.9 L RDW 14.7 Plt Count 219 MPV 8.6 Neutrophils % Lymphocytes % Monocytes % Eosinophils % Basophils % PT with INR INR PTT (Actin FS) Sodium 141 Potassium 4.0 Chloride 104 Carbon Dioxide 26 Anion Gap 11 BUN 39 H Creatinine 1.1 H Creat Clearance w eGFR 53.71 POC Glucometer 210 Random Glucose 156 H Lactic Acid Calcium 8.9 Phosphorus Magnesium Total Bilirubin 0.8 D AST 15 ALT 24 Alkaline Phosphatase 64 Creatine Kinase Troponin I Total Protein 6.7 Albumin 3.2 L Blood Type Antibody Screen 08/03/17 08/03/17 08/03/17 16:05 16:20 22:05 WBC RBC Hgb Hct MCV MCH MCHC RDW Plt Count MPV Neutrophils % Lymphocytes % Monocytes % Eosinophils % Basophils % PT with INR INR PTT (Actin FS) Sodium 139 Potassium 4.5 Chloride 106 Carbon Dioxide 23 Anion Gap 10 BUN 40 H Creatinine 0.9 Creat Clearance w eGFR POC Glucometer 275 197 Random Glucose 244 H Lactic Acid Calcium 8.2 L Phosphorus Magnesium Total Bilirubin AST ALT Alkaline Phosphatase Creatine Kinase Troponin I Total Protein Albumin Blood Type Antibody Screen 08/04/17 08/04/17 08/04/17 06:53 11:40 16:56 WBC RBC Hgb Hct MCV MCH MCHC RDW Plt Count MPV Neutrophils % Lymphocytes % Monocytes % Eosinophils % Basophils % PT with INR INR PTT (Actin FS) Sodium Potassium Chloride Carbon Dioxide Anion Gap BUN Creatinine Creat Clearance w eGFR POC Glucometer 192 247 258 Random Glucose Lactic Acid Calcium Phosphorus Magnesium Total Bilirubin AST ALT Alkaline Phosphatase Creatine Kinase Troponin I Total Protein Albumin Blood Type Antibody Screen 08/04/17 08/05/17 08/05/17 21:42 06:43 12:04 WBC RBC Hgb Hct MCV MCH MCHC RDW Plt Count MPV Neutrophils % Lymphocytes % Monocytes % Eosinophils % Basophils % PT with INR INR PTT (Actin FS) Sodium Potassium Chloride Carbon Dioxide Anion Gap BUN Creatinine Creat Clearance w eGFR POC Glucometer 249 184 213 Random Glucose Lactic Acid Calcium Phosphorus Magnesium Total Bilirubin AST ALT Alkaline Phosphatase Creatine Kinase Troponin I Total Protein Albumin Blood Type Antibody Screen 08/05/17 08/05/17 08/06/17 16:17 21:36 06:32 WBC RBC Hgb Hct MCV MCH MCHC RDW Plt Count MPV Neutrophils % Lymphocytes % Monocytes % Eosinophils % Basophils % PT with INR INR PTT (Actin FS) Sodium Potassium Chloride Carbon Dioxide Anion Gap BUN Creatinine Creat Clearance w eGFR POC Glucometer 176 284 169 Random Glucose Lactic Acid Calcium Phosphorus Magnesium Total Bilirubin AST ALT Alkaline Phosphatase Creatine Kinase Troponin I Total Protein Albumin Blood Type Antibody Screen 08/06/17 08/06/17 08/06/17 10:54 16:40 21:21 WBC RBC Hgb Hct MCV MCH MCHC RDW Plt Count MPV Neutrophils % Lymphocytes % Monocytes % Eosinophils % Basophils % PT with INR INR PTT (Actin FS) Sodium Potassium Chloride Carbon Dioxide Anion Gap BUN Creatinine Creat Clearance w eGFR POC Glucometer 254 245 193 Random Glucose Lactic Acid Calcium Phosphorus Magnesium Total Bilirubin AST ALT Alkaline Phosphatase Creatine Kinase Troponin I Total Protein Albumin Blood Type Antibody Screen 08/07/17 08/07/17 08/07/17 06:46 11:00 13:18 WBC 7.6 RBC 3.96 Hgb 11.0 Hct 34.8 MCV 87.7 MCH 27.6 MCHC 31.5 L RDW 14.6 Plt Count 228 MPV 8.5 Neutrophils % 72.8 Lymphocytes % 14.6 Monocytes % 8.8 Eosinophils % 3.5 Basophils % 0.3 PT with INR INR PTT (Actin FS) Sodium Potassium Chloride Carbon Dioxide Anion Gap BUN Creatinine Creat Clearance w eGFR POC Glucometer 164 155 Random Glucose Lactic Acid Calcium Phosphorus Magnesium Total Bilirubin AST ALT Alkaline Phosphatase Creatine Kinase Troponin I Total Protein Albumin Blood Type Antibody Screen 08/07/17 08/07/17 08/07/17 13:18 16:48 21:16 WBC RBC Hgb Hct MCV MCH MCHC RDW Plt Count MPV Neutrophils % Lymphocytes % Monocytes % Eosinophils % Basophils % PT with INR INR PTT (Actin FS) Sodium 140 Potassium 4.4 Chloride 103 Carbon Dioxide 29 Anion Gap 8 BUN 19 H Creatinine 0.7 Creat Clearance w eGFR > 60 POC Glucometer 221 251 Random Glucose 250 H Lactic Acid Calcium 8.8 Phosphorus Magnesium 1.9 Total Bilirubin 0.6 D AST 44 H ALT 39 Alkaline Phosphatase 57 Creatine Kinase Troponin I Total Protein 6.4 Albumin 2.8 L Blood Type Antibody Screen 08/08/17 08/08/17 08/08/17 05:56 06:30 06:30 WBC 7.0 RBC 3.87 Hgb 10.8 Hct 33.7 MCV 87.1 MCH 27.9 MCHC 32.0 RDW 14.4 Plt Count 245 MPV 8.4 Neutrophils % 64.1 Lymphocytes % 21.1 D Monocytes % 9.6 Eosinophils % 4.5 Basophils % 0.7 PT with INR INR PTT (Actin FS) Sodium 140 Potassium 4.1 Chloride 102 Carbon Dioxide 29 Anion Gap 9 BUN 19 H Creatinine 0.6 Creat Clearance w eGFR > 60 POC Glucometer 168 Random Glucose 145 H Lactic Acid Calcium 8.9 Phosphorus Magnesium 1.7 L Total Bilirubin 0.5 AST 26 ALT 38 Alkaline Phosphatase 58 Creatine Kinase Troponin I < 0.02 Total Protein 6.3 L Albumin 2.8 L Blood Type Antibody Screen 08/08/17 08/08/17 08/08/17 11:49 16:47 21:40 WBC RBC Hgb Hct MCV MCH MCHC RDW Plt Count MPV Neutrophils % Lymphocytes % Monocytes % Eosinophils % Basophils % PT with INR INR PTT (Actin FS) Sodium Potassium Chloride Carbon Dioxide Anion Gap BUN Creatinine Creat Clearance w eGFR POC Glucometer 229 250 Random Glucose Lactic Acid Calcium Phosphorus Magnesium Total Bilirubin AST ALT Alkaline Phosphatase Creatine Kinase Troponin I < 0.02 Total Protein Albumin Blood Type Antibody Screen 08/08/17 08/09/17 08/09/17 22:14 05:35 11:46 WBC RBC Hgb Hct MCV MCH MCHC RDW Plt Count MPV Neutrophils % Lymphocytes % Monocytes % Eosinophils % Basophils % PT with INR INR PTT (Actin FS) Sodium Potassium Chloride Carbon Dioxide Anion Gap BUN Creatinine Creat Clearance w eGFR POC Glucometer 233 191 244 Random Glucose Lactic Acid Calcium Phosphorus Magnesium Total Bilirubin AST ALT Alkaline Phosphatase Creatine Kinase Troponin I Total Protein Albumin Blood Type Antibody Screen 08/09/17 08/09/17 08/10/17 17:17 21:13 06:34 WBC RBC Hgb Hct MCV MCH MCHC RDW Plt Count MPV Neutrophils % Lymphocytes % Monocytes % Eosinophils % Basophils % PT with INR INR PTT (Actin FS) Sodium Potassium Chloride Carbon Dioxide Anion Gap BUN Creatinine Creat Clearance w eGFR POC Glucometer 209 193 121 Random Glucose Lactic Acid Calcium Phosphorus Magnesium Total Bilirubin AST ALT Alkaline Phosphatase Creatine Kinase Troponin I Total Protein Albumin Blood Type Antibody Screen 08/10/17 08/10/17 08/10/17 08:00 08:00 11:14 WBC 6.2 RBC 4.50 Hgb 12.5 D Hct 38.9 D MCV 86.4 MCH 27.7 MCHC 32.1 RDW 14.3 Plt Count 285 MPV 8.1 Neutrophils % 60.6 Lymphocytes % 23.9 Monocytes % 9.4 Eosinophils % 5.3 H Basophils % 0.8 PT with INR INR PTT (Actin FS) Sodium 141 Potassium 4.2 Chloride 103 Carbon Dioxide 32 Anion Gap 6 L BUN 23 H Creatinine 0.7 Creat Clearance w eGFR POC Glucometer 212 Random Glucose 126 H Lactic Acid Calcium 8.9 Phosphorus Magnesium Total Bilirubin AST ALT Alkaline Phosphatase Creatine Kinase Troponin I Total Protein Albumin Blood Type Antibody Screen 08/10/17 08/10/17 08/11/17 16:40 21:42 06:42 WBC RBC Hgb Hct MCV MCH MCHC RDW Plt Count MPV Neutrophils % Lymphocytes % Monocytes % Eosinophils % Basophils % PT with INR INR PTT (Actin FS) Sodium Potassium Chloride Carbon Dioxide Anion Gap BUN Creatinine Creat Clearance w eGFR POC Glucometer 295 251 169 Random Glucose Lactic Acid Calcium Phosphorus Magnesium Total Bilirubin AST ALT Alkaline Phosphatase Creatine Kinase Troponin I Total Protein Albumin Blood Type Antibody Screen 08/11/17 08/11/17 08/11/17 11:09 15:58 21:20 WBC RBC Hgb Hct MCV MCH MCHC RDW Plt Count MPV Neutrophils % Lymphocytes % Monocytes % Eosinophils % Basophils % PT with INR INR PTT (Actin FS) Sodium Potassium Chloride Carbon Dioxide Anion Gap BUN Creatinine Creat Clearance w eGFR POC Glucometer 261 240 227 Random Glucose Lactic Acid Calcium Phosphorus Magnesium Total Bilirubin AST ALT Alkaline Phosphatase Creatine Kinase Troponin I Total Protein Albumin Blood Type Antibody Screen 08/12/17 08/12/17 08/12/17 05:51 11:18 16:23 WBC RBC Hgb Hct MCV MCH MCHC RDW Plt Count MPV Neutrophils % Lymphocytes % Monocytes % Eosinophils % Basophils % PT with INR INR PTT (Actin FS) Sodium Potassium Chloride Carbon Dioxide Anion Gap BUN Creatinine Creat Clearance w eGFR POC Glucometer 236 220 254 Random Glucose Lactic Acid Calcium Phosphorus Magnesium Total Bilirubin AST ALT Alkaline Phosphatase Creatine Kinase Troponin I Total Protein Albumin Blood Type Antibody Screen 08/12/17 08/13/17 08/13/17 21:32 05:52 11:49 WBC RBC Hgb Hct MCV MCH MCHC RDW Plt Count MPV Neutrophils % Lymphocytes % Monocytes % Eosinophils % Basophils % PT with INR INR PTT (Actin FS) Sodium Potassium Chloride Carbon Dioxide Anion Gap BUN Creatinine Creat Clearance w eGFR POC Glucometer 291 218 192 Random Glucose Lactic Acid Calcium Phosphorus Magnesium Total Bilirubin AST ALT Alkaline Phosphatase Creatine Kinase Troponin I Total Protein Albumin Blood Type Antibody Screen 08/13/17 08/13/17 08/14/17 17:21 21:16 06:31 WBC RBC Hgb Hct MCV MCH MCHC RDW Plt Count MPV Neutrophils % Lymphocytes % Monocytes % Eosinophils % Basophils % PT with INR INR PTT (Actin FS) Sodium Potassium Chloride Carbon Dioxide Anion Gap BUN Creatinine Creat Clearance w eGFR POC Glucometer 196 209 200 Random Glucose Lactic Acid Calcium Phosphorus Magnesium Total Bilirubin AST ALT Alkaline Phosphatase Creatine Kinase Troponin I Total Protein Albumin Blood Type Antibody Screen 08/14/17 08/14/17 08/14/17 11:31 17:05 21:28 WBC RBC Hgb Hct MCV MCH MCHC RDW Plt Count MPV Neutrophils % Lymphocytes % Monocytes % Eosinophils % Basophils % PT with INR INR PTT (Actin FS) Sodium Potassium Chloride Carbon Dioxide Anion Gap BUN Creatinine Creat Clearance w eGFR POC Glucometer 204 248 251 Random Glucose Lactic Acid Calcium Phosphorus Magnesium Total Bilirubin AST ALT Alkaline Phosphatase Creatine Kinase Troponin I Total Protein Albumin Blood Type Antibody Screen 08/15/17 08/15/17 08/15/17 05:51 11:31 16:33 WBC RBC Hgb Hct MCV MCH MCHC RDW Plt Count MPV Neutrophils % Lymphocytes % Monocytes % Eosinophils % Basophils % PT with INR INR PTT (Actin FS) Sodium Potassium Chloride Carbon Dioxide Anion Gap BUN Creatinine Creat Clearance w eGFR POC Glucometer 194 169 349 Random Glucose Lactic Acid Calcium Phosphorus Magnesium Total Bilirubin AST ALT Alkaline Phosphatase Creatine Kinase Troponin I Total Protein Albumin Blood Type Antibody Screen 08/15/17 08/16/17 08/16/17 21:21 05:51 11:06 WBC RBC Hgb Hct MCV MCH MCHC RDW Plt Count MPV Neutrophils % Lymphocytes % Monocytes % Eosinophils % Basophils % PT with INR INR PTT (Actin FS) Sodium Potassium Chloride Carbon Dioxide Anion Gap BUN Creatinine Creat Clearance w eGFR POC Glucometer 233 208 226 Random Glucose Lactic Acid Calcium Phosphorus Magnesium Total Bilirubin AST ALT Alkaline Phosphatase Creatine Kinase Troponin I Total Protein Albumin Blood Type Antibody Screen 08/16/17 08/16/17 08/17/17 17:14 21:00 05:55 WBC RBC Hgb Hct MCV MCH MCHC RDW Plt Count MPV Neutrophils % Lymphocytes % Monocytes % Eosinophils % Basophils % PT with INR INR PTT (Actin FS) Sodium Potassium Chloride Carbon Dioxide Anion Gap BUN Creatinine Creat Clearance w eGFR POC Glucometer 213 198 205 Random Glucose Lactic Acid Calcium Phosphorus Magnesium Total Bilirubin AST ALT Alkaline Phosphatase Creatine Kinase Troponin I Total Protein Albumin Blood Type Antibody Screen 08/17/17 08/17/17 08/17/17 11:06 16:47 21:39 WBC RBC Hgb Hct MCV MCH MCHC RDW Plt Count MPV Neutrophils % Lymphocytes % Monocytes % Eosinophils % Basophils % PT with INR INR PTT (Actin FS) Sodium Potassium Chloride Carbon Dioxide Anion Gap BUN Creatinine Creat Clearance w eGFR POC Glucometer 198 233 197 Random Glucose Lactic Acid Calcium Phosphorus Magnesium Total Bilirubin AST ALT Alkaline Phosphatase Creatine Kinase Troponin I Total Protein Albumin Blood Type Antibody Screen 08/18/17 08/18/17 08/18/17 06:37 11:03 16:37 WBC RBC Hgb Hct MCV MCH MCHC RDW Plt Count MPV Neutrophils % Lymphocytes % Monocytes % Eosinophils % Basophils % PT with INR INR PTT (Actin FS) Sodium Potassium Chloride Carbon Dioxide Anion Gap BUN Creatinine Creat Clearance w eGFR POC Glucometer 182 252 253 Random Glucose Lactic Acid Calcium Phosphorus Magnesium Total Bilirubin AST ALT Alkaline Phosphatase Creatine Kinase Troponin I Total Protein Albumin Blood Type Antibody Screen 08/18/17 08/19/17 08/19/17 21:36 06:45 11:23 WBC RBC Hgb Hct MCV MCH MCHC RDW Plt Count MPV Neutrophils % Lymphocytes % Monocytes % Eosinophils % Basophils % PT with INR INR PTT (Actin FS) Sodium Potassium Chloride Carbon Dioxide Anion Gap BUN Creatinine Creat Clearance w eGFR POC Glucometer 206 235 272 Random Glucose Lactic Acid Calcium Phosphorus Magnesium Total Bilirubin AST ALT Alkaline Phosphatase Creatine Kinase Troponin I Total Protein Albumin Blood Type Antibody Screen 08/19/17 08/19/17 08/20/17 17:03 21:29 06:20 WBC RBC Hgb Hct MCV MCH MCHC RDW Plt Count MPV Neutrophils % Lymphocytes % Monocytes % Eosinophils % Basophils % PT with INR INR PTT (Actin FS) Sodium Potassium Chloride Carbon Dioxide Anion Gap BUN Creatinine Creat Clearance w eGFR POC Glucometer 228 214 199 Random Glucose Lactic Acid Calcium Phosphorus Magnesium Total Bilirubin AST ALT Alkaline Phosphatase Creatine Kinase Troponin I Total Protein Albumin Blood Type Antibody Screen 08/20/17 08/20/17 08/20/17 07:15 07:15 11:41 WBC 6.1 RBC 4.20 Hgb 11.7 Hct 36.3 MCV 86.3 MCH 27.8 MCHC 32.2 RDW 14.8 Plt Count 263 MPV 9.0 D Neutrophils % Lymphocytes % Monocytes % Eosinophils % Basophils % PT with INR INR PTT (Actin FS) Sodium 139 Potassium 3.9 Chloride 101 Carbon Dioxide 28 Anion Gap 10 BUN 31 H Creatinine 0.8 Creat Clearance w eGFR > 60 POC Glucometer 202 Random Glucose 166 H Lactic Acid Calcium 9.6 Phosphorus Magnesium Total Bilirubin 0.3 D AST 21 ALT 38 Alkaline Phosphatase 58 Creatine Kinase Troponin I Total Protein 7.1 Albumin 3.4 Blood Type Antibody Screen 08/20/17 08/20/17 08/21/17 17:57 21:11 06:27 WBC RBC Hgb Hct MCV MCH MCHC RDW Plt Count MPV Neutrophils % Lymphocytes % Monocytes % Eosinophils % Basophils % PT with INR INR PTT (Actin FS) Sodium Potassium Chloride Carbon Dioxide Anion Gap BUN Creatinine Creat Clearance w eGFR POC Glucometer 296 181 149 Random Glucose Lactic Acid Calcium Phosphorus Magnesium Total Bilirubin AST ALT Alkaline Phosphatase Creatine Kinase Troponin I Total Protein Albumin Blood Type Antibody Screen 08/21/17 08/21/17 08/21/17 11:17 17:00 21:27 WBC RBC Hgb Hct MCV MCH MCHC RDW Plt Count MPV Neutrophils % Lymphocytes % Monocytes % Eosinophils % Basophils % PT with INR INR PTT (Actin FS) Sodium Potassium Chloride Carbon Dioxide Anion Gap BUN Creatinine Creat Clearance w eGFR POC Glucometer 172 240 183 Random Glucose Lactic Acid Calcium Phosphorus Magnesium Total Bilirubin AST ALT Alkaline Phosphatase Creatine Kinase Troponin I Total Protein Albumin Blood Type Antibody Screen 08/22/17 08/22/17 08/22/17 06:06 06:35 06:35 WBC 9.1 D RBC 4.81 Hgb 13.4 D Hct 41.6 MCV 86.4 MCH 27.8 MCHC 32.2 RDW 14.9 Plt Count 340 D MPV 8.9 Neutrophils % 54.0 Lymphocytes % 31.8 D Monocytes % 9.2 Eosinophils % 4.3 Basophils % 0.7 PT with INR INR PTT (Actin FS) Sodium 137 Potassium 4.2 Chloride 98 Carbon Dioxide 26 Anion Gap 13 BUN 39 H Creatinine 1.5 H Creat Clearance w eGFR 37.55 POC Glucometer 226 Random Glucose 197 H Lactic Acid Calcium 10.0 Phosphorus Magnesium 1.8 Total Bilirubin 0.4 D AST 21 ALT 47 Alkaline Phosphatase 73 Creatine Kinase 67 Troponin I Total Protein 8.3 H Albumin 4.2 Blood Type Antibody Screen 08/22/17 08/22/17 08/22/17 06:35 10:30 11:58 WBC RBC Hgb Hct MCV MCH MCHC RDW Plt Count MPV Neutrophils % Lymphocytes % Monocytes % Eosinophils % Basophils % PT with INR INR PTT (Actin FS) Sodium Potassium Chloride Carbon Dioxide Anion Gap BUN Creatinine Creat Clearance w eGFR POC Glucometer 186 Random Glucose Lactic Acid 2.7 H* Calcium Phosphorus Magnesium Total Bilirubin AST ALT Alkaline Phosphatase Creatine Kinase Cancelled Troponin I Total Protein Albumin Blood Type Antibody Screen 08/22/17 08/22/17 08/23/17 16:51 21:37 05:49 WBC RBC Hgb Hct MCV MCH MCHC RDW Plt Count MPV Neutrophils % Lymphocytes % Monocytes % Eosinophils % Basophils % PT with INR INR PTT (Actin FS) Sodium Potassium Chloride Carbon Dioxide Anion Gap BUN Creatinine Creat Clearance w eGFR POC Glucometer 241 240 200 Random Glucose Lactic Acid Calcium Phosphorus Magnesium Total Bilirubin AST ALT Alkaline Phosphatase Creatine Kinase Troponin I Total Protein Albumin Blood Type Antibody Screen 08/23/17 08/23/17 08/23/17 07:00 07:00 07:00 WBC 7.6 RBC 4.49 Hgb 12.4 Hct 38.6 MCV 86.0 MCH 27.6 MCHC 32.1 RDW 14.6 Plt Count 282 MPV 9.1 Neutrophils % 54.6 Lymphocytes % 30.4 Monocytes % 9.4 Eosinophils % 4.6 H Basophils % 1.0 PT with INR INR PTT (Actin FS) Sodium 137 Potassium 3.9 Chloride 98 Carbon Dioxide 26 Anion Gap 13 BUN 49 H Creatinine 1.7 H Creat Clearance w eGFR 32.50 POC Glucometer Random Glucose 182 H Lactic Acid 1.4 Calcium 9.9 Phosphorus Magnesium 2.0 Total Bilirubin 0.5 D AST 18 ALT 39 Alkaline Phosphatase 63 Creatine Kinase Troponin I Total Protein 7.7 Albumin 3.8 Blood Type Antibody Screen 08/23/17 08/23/17 11:16 16:24 WBC RBC Hgb Hct MCV MCH MCHC RDW Plt Count MPV Neutrophils % Lymphocytes % Monocytes % Eosinophils % Basophils % PT with INR INR PTT (Actin FS) Sodium Potassium Chloride Carbon Dioxide Anion Gap BUN Creatinine Creat Clearance w eGFR POC Glucometer 238 172 Random Glucose Lactic Acid Calcium Phosphorus Magnesium Total Bilirubin AST ALT Alkaline Phosphatase Creatine Kinase Troponin I Total Protein Albumin Blood Type Antibody Screen NAD, no signs of wihtdrawal, no pain noted Assessment: 08/23/17 18:08 OUD - MAT suboxoen for pain and addiction, dose reduced to 8mg tid, prescription sent for 1 month #90 films 8mg to [facility] for [facility] to [place], [facility].
[2017-08-22] MEDS: PRENATAL VITAMINS W/ FOLIC ACID TABLET (FP) PO SCH (12:29)
[2017-08-22] MEDS: NYSTATIN POWDER 100,000 UNITS/GM - 15 GM TOPICAL POWDER TP SCH (12:32)
[2017-08-22] MEDS: BACITRACIN 15 GM TUBE TOPICAL OINTMENT TP SCH (12:32)
[2017-08-22] MEDS: CALCIUM 500MG/VIT-D 200 UNITS COMBO TABLET (FP) PO SCH ×2 (13:35→21:48)
[2017-08-22] MEDS ORDERED: QUEtiapine FUMARATE 25 MG TABLET (FP) ONE (21:43)
[2017-08-22] MEDS: DOCUSATE SODIUM 100 MG CAPSULE (FP) PO SCH (21:46)
[2017-08-22] MEDS: THIAMINE HCL 100 MG TABLET (FP) PO SCH (21:49)
[2017-08-22] MEDS: traZODone HCL 50 MG TABLET (FP) PO SCH (21:49)
[2017-08-22] MEDS: SENNOSIDES 8.6MG TABLET (FP) PO SCH (21:49)
[2017-08-22] MEDS: QUEtiapine FUMARATE 50 MG TABLET PO SCH (21:50)
[2017-08-23] MEDS: VITAMINS A AND D TOPICAL OINTMENT 60 GM TUBE TP SCH ×4 (06:26→17:33)
[2017-08-23] MEDS: PREGABALIN 50 MG CAPSULE PO SCH ×3 (06:28→21:46)
[2017-08-23] MEDS: BUPRENORPHINE/NALOXONE 8 MG/2 MG FILM PACKET SL SCH ×3 (06:28→21:47)
[2017-08-23] MEDS: ENOXAPARIN NA (PORCINE) 100 MG/1 ML DISP.SYRIN SQ SCH ×2 (06:29→17:28)
[2017-08-23] MEDS: INSULIN SLIDING SCALE (NOVOLOG) 1 VIAL SQ SCH ×4 (06:29→21:45)
[2017-08-23] MEDS ORDERED: INSULIN (NOVOLOG) ASPART 100 UNITS/ML 10ML VIAL ONE (06:51)
[2017-08-23] MEDS: ALBUTEROL SO4 0.083% IH SOL 2.5 MG/3 ML VIAL.NEB. NEB PRN (07:45)
[2017-08-23 08:04] LABS: EOS % 4.6 % (0-4.5); HEMATOCRIT 38.6 % (32.4-45.2); HEMOGLOBIN 12.4 GM/dL (10.7-15.3); LYMPH % 30.4 % (8-40); MCH 27.6 pg (25.7-33.7); MCHC 32.1 g/dl (32.0-36.0); MEAN PLT VOLUME 9.1 fl (7.5-11.1); MONO % 9.4 % (3.8-10.2); NEUT % 54.6 % (42.8-82.8); PLATELET COUNT 282 K/MM3 (134-434); RBC 4.49 M/mm3 (3.60-5.2); RDW 14.6 % (11.6-15.6); WHITE BLOOD COUNT 7.6 K/mm3 (4.0-10.0)
[2017-08-23 08:56] LABS: CHLORIDE 98 mmol/L (98-107); POTASSIUM 3.9 mmol/L (3.5-5.1); SODIUM 137 mmol/L (136-145)
[2017-08-23 09:01] LABS: ALBUMIN 3.8 g/dl (3.4-5.0); ALK PHOS 63 U/L (45-117); ANION GAP 13 (8-16); BILIRUBIN,TOTAL 0.5 mg/dL (0.2-1.0); BLOOD UREA NITROGEN 49 mg/dL (7-18); CALCIUM 9.9 mg/dL (8.5-10.1); CO2 26 mmol/L (21-32); CREATININE 1.7 mg/dL (0.55-1.02); GLUCOSE,RANDOM 182 mg/dL (74-106); SGOT/AST 18 U/L (15-37); SGPT/ALT 39 U/L (12-78); TOT PROT 7.7 g/dl (6.4-8.2)
[2017-08-23] MEDS ORDERED: PT OWN MED DRAWER 7, Y5N ONE (09:41)
[2017-08-23] MEDS: PRENATAL VITAMINS W/ FOLIC ACID TABLET (FP) PO SCH (09:48)
[2017-08-23] MEDS: BACITRACIN 15 GM TUBE TOPICAL OINTMENT TP SCH (09:58)
[2017-08-23] MEDS: NYSTATIN POWDER 100,000 UNITS/GM - 15 GM TOPICAL POWDER TP SCH (09:58)
[2017-08-23] MEDS: CALCIUM 500MG/VIT-D 200 UNITS COMBO TABLET (FP) PO SCH ×2 (11:30→21:46)
--- NOTE | 2017-08-23 13:23 | PN ---
Physical Exam: SUBJECTIVE: Patient seen and examined. States she feels tired, lethargic. Discussed the medications prescribed by Dr. Tee. Patient will talk to Dr. Tee and ask her to lower dosing. OBJECTIVE: Vital Signs Period Temp Pulse Resp BP Sys/Puente Pulse Ox Last 24 Hr 98.2 F-99.2 F 92-103 18-20 102-134/45-87 94-97 GENERAL: The patient is awake, alert, and fully oriented. LUNGS: CTA HEART: S1, S2, RRR ABDOMEN: obese, soft, nontender, nondistended LEFT LOWER EXTREMITY: soft cast/splint; toes pink and warm RIGHT LOWER EXTREMITY: 1+ edema, mild skin excoriations, no sign of cellulitis Laboratory Results - last 24 hr 08/22/17 08/22/17 08/23/17 16:51 21:37 05:49 WBC RBC Hgb Hct MCV MCH MCHC RDW Plt Count MPV Neutrophils % Lymphocytes % Monocytes % Eosinophils % Basophils % Sodium Potassium Chloride Carbon Dioxide Anion Gap BUN Creatinine Creat Clearance w eGFR POC Glucometer 241 240 200 Random Glucose Lactic Acid Calcium Magnesium Total Bilirubin AST ALT Alkaline Phosphatase Total Protein Albumin 08/23/17 08/23/17 08/23/17 07:00 07:00 07:00 WBC 7.6 RBC 4.49 Hgb 12.4 Hct 38.6 MCV 86.0 MCH 27.6 MCHC 32.1 RDW 14.6 Plt Count 282 MPV 9.1 Neutrophils % 54.6 Lymphocytes % 30.4 Monocytes % 9.4 Eosinophils % 4.6 H Basophils % 1.0 Sodium 137 Potassium 3.9 Chloride 98 Carbon Dioxide 26 Anion Gap 13 BUN 49 H Creatinine 1.7 H Creat Clearance w eGFR 32.50 POC Glucometer Random Glucose 182 H Lactic Acid 1.4 Calcium 9.9 Magnesium 2.0 Total Bilirubin 0.5 D AST 18 ALT 39 Alkaline Phosphatase 63 Total Protein 7.7 Albumin 3.8 08/23/17 11:16 WBC RBC Hgb Hct MCV MCH MCHC RDW Plt Count MPV Neutrophils % Lymphocytes % Monocytes % Eosinophils % Basophils % Sodium Potassium Chloride Carbon Dioxide Anion Gap BUN Creatinine Creat Clearance w eGFR POC Glucometer 238 Random Glucose Lactic Acid Calcium Magnesium Total Bilirubin AST ALT Alkaline Phosphatase Total Protein Albumin Active Medications Generic Name Dose Route Start Last Admin Trade Name Freq PRN Reason Stop Dose Admin Acetaminophen 650 mg 08/07/17 10:16 08/18/17 16:34 Tylenol - PO 650 mg Q6H PRN Administration PAIN LEVEL 1-5 Albuterol Sulfate 1 amp 08/19/17 12:05 08/23/17 07:45 Ventolin 0.083% Nebulizer Soln - NEB 1 amp Q6H PRN Administration SHORT OF BREATH/WHEEZING Bacitracin 1 applic 08/12/17 15:30 08/23/17 09:58 Bacitracin - TP 1 applic DAILY NI Administration Buprenorphine/Naloxone 1 each 08/21/17 14:00 08/23/17 06:28 Suboxone 8mg/2mg Sl Film - SL 1 each TID NI Administration Calcium Carbonate/Cholecalciferol 1 tab 08/07/17 22:00 08/23/17 11:30 Os-Eros 500+D - PO 1 tab BID@1200,2200 NI Administration Docusate Sodium 300 mg 08/07/17 22:00 08/22/17 21:46 Colace - PO 300 mg HS NI Administration Enoxaparin Sodium 150 mg 08/14/17 06:00 08/23/17 06:29 Lovenox - SQ 150 mg BID@0600,1800 NI Administration Hydrocortisone 1 applic 08/13/17 22:24 08/13/17 23:59 Hytone 1% Cream - TP 1 applic BID PRN Administration itching Insulin Aspart 1 vial 08/07/17 11:00 08/23/17 11:46 Novolog Vial Sliding Scale - SQ 4 units ACHS NI Administration Protocol Nystatin 1 applic 08/14/17 10:00 08/23/17 09:58 Nystop Powder - TP 1 applic DAILY NI Administration Ondansetron HCl 4 mg 08/07/17 10:05 Zofran Injection IVPUSH Q6H PRN NAUSEA AND/OR VOMITING Pregabalin 150 mg 08/21/17 10:01 08/23/17 06:28 Lyrica - PO 150 mg TID NI Administration Multivit/Folic Acid/Iron 1 tab 08/08/17 10:00 08/23/17 09:48 Vitamins (Sjr) - PO 1 tab DAILY NI Administration Quetiapine Fumarate 50 mg 08/07/17 22:00 08/22/17 21:50 Seroquel - PO 50 mg HS NI Administration Senna 2 tab 08/07/17 22:00 08/22/17 21:49 Senna - PO 2 tab HS [facility] Administration Thiamine HCl 100 mg 08/07/17 22:00 08/22/17 21:49 Vitamin B1 - PO 100 mg HS [facility] Administration Trazodone HCl 150 mg 08/07/17 22:00 08/22/17 21:49 Desyrel - PO 150 mg HS [facility] Administration Vitamin A/Vitamin D 1 applic 08/14/17 12:00 08/23/17 11:30 Vitamin A & D Top Oint - TP 1 applic Q6HPO NI Administration ASSESSMENT/PLAN 47 year-old female with a PMH significant for HTN, HLD, CHF, DVT s/p IVC filter , chronic leg ulcers, left big toe wound, and polysubstance abuse on suboxone. Admitted for left ankle fracture. Now with ANASTASIA. Left posterior and lateral malleolus fracture/dislocation --s/p closed reduction and casting on 08/06/17 --ambulating with walker, strict NWB --08/20 xray: no gross interval change --new films in 2 weeks Polysubstance abuse --followed by Dr. Tee --continue trazadone, seroquel, valium, suboxone TID, lyrica h/o DVT --s/p IVC filter --continue full dose lovenox Chronic leg ulcers --left great toe wound --completed 14-day course doxycycline (07/27-08/09) --seen and evaluated by vascular Dr. Knox Elevated creatinine Lactic acidosis --bump in Cr yesterday to 1.5, today 1.7 --stopped metformin, lasix, and lisinopril yesterday and held off giving fluids; lactic acidosis resolved but Cr continues to rise --renal consult placed NIDDM --Novolog sliding scale --hold metformin CHF --hold Lasix Hypertension --hold lisinopril Hyperlipidemia --not on medication FEN Fluids: PO intake adequate Electrolytes: replete as indicated Nutrition: low sodium, diabetic DVT prophylaxis: on full dose Lovenox Physical therapy Dispo: awaiting placement to a facility. Full Code. Visit type - Emergency Visit Emergency Visit: Yes ED Registration Date: 08/01/17 Care time: The patient presented to the Emergency Department on the above date and was hospitalized for further evaluation of their emergent condition. - New Patient This patient is new to me today: No - Critical Care Critical Care patient: No
[2017-08-23] MEDS ORDERED: POTASSIUM CHLORIDE 10 MEQ in SODIUM CHLORIDE 1,000 ML IVPB SCH ×2 (13:45→14:53)
--- NOTE | 2017-08-23 13:53 | CONSULT ---
Consult Consult Specialty:: Nephrology ( Carter/ Sanjeev) Referred by:: Chika Monroy - History of Present Illness Chief Complaint: The patient has new onset acute kideny failure History of Present Illness: 47 year-old female with a PMH significant for HTN, HLD, CHF, DVT s/p IVC filter , chronic leg ulcers, left big toe wound, and polysubstance abuse on suboxone. Admitted with h/o left ankle fracture. Now with ANASTASIA. Left posterior and lateral malleolus fracture/dislocation, s/p closed reduction and casting on 08/06/17. H/o Polysubstance abuse, followed by Dr. Tee , On Suboxone H/o DVT, s/p IVC filter. Chronic leg ulcers... with Diabetic peripheral Vascular disease and Neuropathy. H/o NIDDM --Novolog sliding scale. No Retinopathy. Metformin on hold. H/o CHF. Loop diuretics on hold. Hypertension.. But BP is tending low now. Morbid obesity, with minimal ambulatory ability. 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 HGBA1c PENDING.) - Past Surgical History Past Surgical History: Yes: Cholecystectomy, Colonoscopy - Alcohol/Substance Use Hx Alcohol Use: No - Smoking History Smoking history: Current every day smoker Have you smoked in the past 12 months: Yes Aproximately how many cigarettes per day: 10 - Social History Usual Living Arrangement: With Parent ADL: Independent History of Recent Travel: No Home Medications - Allergies Allergies/Adverse Reactions: Allergies Allergy/AdvReac Type Severity Reaction Status Date / Time No Known Allergies Allergy Verified 08/01/17 08:02 - Home Medications Home Medications: Ambulatory Orders Pregabalin [Lyrica] 100 mg PO TID 10/02/16 Enoxaparin [Lovenox -] 110 mg SQ BID #60 syr 12/17/16 traZODone HCL [Desyrel -] 150 mg PO HS 03/02/17 Metformin HCl 500 mg PO DAILY 30 Days tab 03/22/17 Quetiapine Fumarate [Seroquel -] 50 mg PO HS #30 tablet 03/23/17 Lisinopril [Prinivil -] 20 mg PO DAILY 05/02/17 Potassium Chloride [K-Dur -] 40 meq PO ONCE #14 tablet.er 05/02/17 Furosemide [Lasix] 80 mg PO DAILY 07/03/17 Docusate Sodium [Colace -] 100 mg PO TID PRN #90 capsule 07/24/17 Doxycycline Hyclate 100 mg PO BID #28 tablet 07/27/17 Buprenorphine/Naloxone [Suboxone 8Mg/2Mg Sl Film -] 1 each SL TID #90 film MDD 3 08/23/17 Family Disease History - Family Disease History Family Disease History: Diabetes: Father (DM, etoh), Mother, Brother, Heart Disease: Grandparent (massive CVA in his early 60s) Review of Systems - Review of Systems Constitutional: reports: No Symptoms. denies: Fever Eyes: denies: Blind Spots HENT: denies: Difficult Swallowing, Mouth Swelling Neck: denies: Decreased ROM Cardiovascular: denies: Chest Pain, Palpitations Respiratory: denies: Cough Gastrointestinal: denies: Abdominal Pain, Bloating, Constipation, Diarrhea Genitourinary: denies: Burning, Incontinence Neurological: reports: Numbness, Parasthesia Psychiatric: reports: Altered Sleep Pattern, Anxiety Physical Exam Vital Signs: Vital Signs Temperature 98.2 F 08/23/17 08:21 Pulse Rate 102 H 08/23/17 08:21 Respiratory Rate 20 08/23/17 08:21 Blood Pressure 102/65 08/23/17 08:21 O2 Sat by Pulse Oximetry (%) 97 08/23/17 08:52 Constitutional: Yes: No Distress, Calm Eyes: Yes: Conjunctiva Clear HENT: Yes: Normocephalic Neck: Yes: Trachea Midline Cardiovascular: Yes: S1, S2 Respiratory: Yes: CTA Bilaterally, Diminished Gastrointestinal: Yes: Normal Bowel Sounds, Abdomen, Obese Renal/: No: Anuria, CVA Tenderness - Left, CVA Tenderness - Right, Incontinence Musculoskeletal: No: Back Pain Neurological: Yes: Alert, Oriented Psychiatric: Yes: Oriented Labs: CBC, BMP 08/23/17 07:00 08/23/17 07:00 Problem List - Problems (1) Fracture dislocation of ankle Code(s): S82.899A - OTH FRACTURE OF UNSP LOWER LEG, INIT FOR CLOS FX (2) Opioid dependence with withdrawal Code(s): F11.23 - OPIOID DEPENDENCE WITH WITHDRAWAL (3) ANASTASIA (acute kidney injury) Code(s): N17.9 - ACUTE KIDNEY FAILURE, UNSPECIFIED (4) Heroin abuse Code(s): F11.10 - OPIOID ABUSE, UNCOMPLICATED (5) Anemia Code(s): D64.9 - ANEMIA, UNSPECIFIED (6) Cannabis dependence Code(s): F12.20 - CANNABIS DEPENDENCE, UNCOMPLICATED (7) Leg DVT (deep venous thromboembolism), chronic Code(s): I82.509 - CHRONIC EMBOLISM AND THOMBOS UNSP DEEP VN UNSP LOW EXTRM Qualifiers: Laterality: bilateral Qualified Code(s): I82.503 - Chronic embolism and thrombosis of unspecified deep veins of lower extremity, bilateral (8) Low back pain Code(s): M54.5 - LOW BACK PAIN (9) Morbid obesity Code(s): E66.01 - MORBID (SEVERE) OBESITY DUE TO EXCESS CALORIES (10) Polysubstance (excluding opioids) dependence Code(s): F19.20 - OTHER PSYCHOACTIVE SUBSTANCE DEPENDENCE, UNCOMPLICATED Assessment/Plan 47 year-old female with a PMH significant for HTN, HLD, CHF, DVT s/p IVC filter , chronic leg ulcers, left big toe wound, and Polysubstance abuse on suboxone. Admitted with h/o left ankle fracture. Now with ANASTASIA. Left posterior and lateral malleolus fracture/dislocation, s/p closed reduction and casting on 08/06/17. H/o Polysubstance abuse, followed by Dr. Tee , On Suboxone H/o DVT, s/p IVC filter. Chronic leg ulcers... with Diabetic peripheral Vascular disease and Neuropathy. H/o NIDDM --Novolog sliding scale. No Retinopathy. Metformin on hold. H/o CHF. Loop diuretics on hold. BP tends to be low in this patient who has h/o Hypertension. Acute Kidney Failure, most likely Hemodynamic in nature. BP runs lower than usual. This with resultant Renal Hypoperfusion is likely to be the etiology for the rising Creatinine. Plan: Agree with discontinuing SOWMYA Inhibitor and Metformin. Will start cautious IV hydration. Does not warrant extensive w/u at this point. Will repeat blood work in AM; if the lab data shows trend towards improvement, may be discharged to Rehab Center and further f/u be done as out patient. Thanks again. Will follow with you. Crystal Machado MD
[2017-08-23] MEDS ORDERED: SODIUM CHLORIDE 1,000 ML with POTASSIUM CHLORIDE 10 MEQ IV SCH (14:54)
[2017-08-23] MEDS: SODIUM CHLORIDE 1,000 ML with POTASSIUM CHLORIDE 10 MEQ IV SCH (17:50)
--- NOTE | 2017-08-23 18:52 | PN ---
[facility] Progress Note (SOAP) Subjective: patient feels well but transfer held up because of worsening renal failure cause unknown Objective: 08/23/17 18:50 Vital Signs - 24 hr 08/22/17 08/23/17 08/23/17 20:02 00:00 06:00 Temperature 98.4 F 98.6 F Pulse Rate 92 H Respiratory 18 20 20 Rate Blood Pressure 104/45 132/78 O2 Sat by Pulse 94 L Oximetry (%) 08/23/17 08/23/17 08/23/17 08:21 08:52 15:15 Temperature 98.2 F 98.5 F Pulse Rate 102 H Respiratory 20 Rate Blood Pressure 102/65 O2 Sat by Pulse 97 Oximetry (%) Laboratory Results - last 24 hr 08/22/17 08/23/17 08/23/17 21:37 05:49 07:00 WBC 7.6 RBC 4.49 Hgb 12.4 Hct 38.6 MCV 86.0 MCH 27.6 MCHC 32.1 RDW 14.6 Plt Count 282 MPV 9.1 Neutrophils % 54.6 Lymphocytes % 30.4 Monocytes % 9.4 Eosinophils % 4.6 H Basophils % 1.0 Sodium Potassium Chloride Carbon Dioxide Anion Gap BUN Creatinine Creat Clearance w eGFR POC Glucometer 240 200 Random Glucose Lactic Acid Calcium Magnesium Total Bilirubin AST ALT Alkaline Phosphatase Total Protein Albumin 08/23/17 08/23/17 08/23/17 07:00 07:00 11:16 WBC RBC Hgb Hct MCV MCH MCHC RDW Plt Count MPV Neutrophils % Lymphocytes % Monocytes % Eosinophils % Basophils % Sodium 137 Potassium 3.9 Chloride 98 Carbon Dioxide 26 Anion Gap 13 BUN 49 H Creatinine 1.7 H Creat Clearance w eGFR 32.50 POC Glucometer 238 Random Glucose 182 H Lactic Acid 1.4 Calcium 9.9 Magnesium 2.0 Total Bilirubin 0.5 D AST 18 ALT 39 Alkaline Phosphatase 63 Total Protein 7.7 Albumin 3.8 08/23/17 16:24 WBC RBC Hgb Hct MCV MCH MCHC RDW Plt Count MPV Neutrophils % Lymphocytes % Monocytes % Eosinophils % Basophils % Sodium Potassium Chloride Carbon Dioxide Anion Gap BUN Creatinine Creat Clearance w eGFR POC Glucometer 172 Random Glucose Lactic Acid Calcium Magnesium Total Bilirubin AST ALT Alkaline Phosphatase Total Protein Albumin elevated bun and creatinine worsening Assessment: 08/23/17 18:51 oud - cotn suboxoen 8mg tid, was onnaprosyn x5 days for post op pain /18-23 but relativelynormal renal function at that time. Will follow
[2017-08-23] MEDS ORDERED: QUEtiapine FUMARATE 25 MG TABLET (FP) ONE (21:38)
[2017-08-23] MEDS: DOCUSATE SODIUM 100 MG CAPSULE (FP) PO SCH (21:45)
[2017-08-23] MEDS: THIAMINE HCL 100 MG TABLET (FP) PO SCH (21:46)
[2017-08-23] MEDS: SENNOSIDES 8.6MG TABLET (FP) PO SCH (21:46)
[2017-08-23] MEDS: traZODone HCL 50 MG TABLET (FP) PO SCH (21:46)
[2017-08-23] MEDS: QUEtiapine FUMARATE 50 MG TABLET PO SCH (21:47)
[2017-08-24] MEDS: VITAMINS A AND D TOPICAL OINTMENT 60 GM TUBE TP SCH ×5 (00:15→11:53)
[2017-08-24] MEDS: SODIUM CHLORIDE 1,000 ML with POTASSIUM CHLORIDE 10 MEQ IV SCH (03:45)
[2017-08-24] MEDS: BUPRENORPHINE/NALOXONE 8 MG/2 MG FILM PACKET SL SCH (06:24)
[2017-08-24] MEDS: ENOXAPARIN NA (PORCINE) 100 MG/1 ML DISP.SYRIN SQ SCH (06:24)
[2017-08-24] MEDS: INSULIN SLIDING SCALE (NOVOLOG) 1 VIAL SQ SCH ×2 (06:25→11:52)
[2017-08-24 06:46] VITALS: BP 144/75; PULSE 102; TEMP 97.4
[2017-08-24] MEDS: ALBUTEROL SO4 0.083% IH SOL 2.5 MG/3 ML VIAL.NEB. NEB PRN (07:52)
[2017-08-24 08:29] LABS: ALBUMIN 3.5 g/dl (3.4-5.0); ALK PHOS 55 U/L (45-117); ANION GAP 7 (8-16); BILIRUBIN,TOTAL 0.3 mg/dL (0.2-1.0); BLOOD UREA NITROGEN 32 mg/dL (7-18); CALCIUM 10.3 mg/dL (8.5-10.1); CHLORIDE 103 mmol/L (98-107); CO2 29 mmol/L (21-32); GLUCOSE,RANDOM 142 mg/dL (74-106); POTASSIUM 4.2 mmol/L (3.5-5.1); SGOT/AST 21 U/L (15-37); SGPT/ALT 39 U/L (12-78); SODIUM 139 mmol/L (136-145); TOT PROT 7.2 g/dl (6.4-8.2)
[2017-08-24] MEDS ORDERED: PT OWN MED DRAWER 7, Y5N ONE (09:40)
[2017-08-24] MEDS: PRENATAL VITAMINS W/ FOLIC ACID TABLET (FP) PO SCH (09:44)
[2017-08-24] MEDS: PREGABALIN 50 MG CAPSULE PO SCH (09:44)
[2017-08-24] MEDS: BACITRACIN 15 GM TUBE TOPICAL OINTMENT TP SCH (10:11)
--- NOTE | 2017-08-24 11:07 | DS ---
Physical Exam: SUBJECTIVE: Patient seen and examined OBJECTIVE: Hold lasix on discharge, repeat labs within 3-4 days as per renal recommendations Vital Signs Period Temp Pulse Resp BP Sys/Puente Pulse Ox Last 24 Hr 97.4 F-98.5 F 102-111 22 120-144/75-79 97 PHYSICAL EXAM GENERAL: The patient is awake, alert, and fully oriented, in no acute distress LUNGS: clear to auscultation anteriorly, no wheezing, no shortness of breath HEART: S1, S2, RRR ABDOMEN: obese, soft, nontender, nondistended LEFT LOWER EXTREMITY: soft cast on splint, extremities, pink warm, denies pain, denies numbness RIGHT LOWER EXTREMITY: 1+ edema, mild skin excoriations PSYCHE: normal mood, calm LABS Laboratory Results - last 24 hr 08/23/17 08/23/17 08/23/17 11:16 16:24 21:44 Sodium Potassium Chloride Carbon Dioxide Anion Gap BUN Creatinine Creat Clearance w eGFR POC Glucometer 238 172 240 Random Glucose Calcium Total Bilirubin AST ALT Alkaline Phosphatase Total Protein Albumin 08/24/17 08/24/17 06:22 06:30 Sodium 139 Potassium 4.2 Chloride 103 Carbon Dioxide 29 Anion Gap 7 L BUN 32 H Creatinine 1.0 Creat Clearance w eGFR 59.96 POC Glucometer 162 Random Glucose 142 H Calcium 10.3 H Total Bilirubin 0.3 D AST 21 ALT 39 Alkaline Phosphatase 55 Total Protein 7.2 Albumin 3.5 HOSPITAL COURSE: Date of Admission:08/01/17 Date of Discharge: 08/24/17 Patient is a 47 year old female with a past medical history significant for hypertension, hld, CHF, DVT s/p IVC filter (on Lovenox 150mg BID), chronic leg ulcers, left big toe wound, and polysubstance abuse on suboxone. She was admitted on 08/01/2017 for left ankle fracture. Ortho: Left posterior and lateral malleolus fracture/dislocation, casted/closed reduction on 08/06/2017 NWB of left lower ext, PT with walker, for rehab today New films recommended in 2 weeks of this extremity, monitor for healing Ortho follow up as an outpatient, Dr. Champion Psyche: Polysubstance abuse, chronic Followed during hospitaltion, Dr. Tee On Trazadone, Seroquel, Valium, Suboxine, Lyrica Hematology h/o DVT, chronic Has IVC filter, on Lovenox 150mg BID Vascular: Chronic leg ulcers Completed full course of antibiotics Vascular follow up as outpatient (Dr. Knox) Renal Elevated creatinine, resolved Lactic acidosis, resolved Hold Lasix, Continue Lisinopril Monitor with repeat labs 3-4 days Renal cleared for d/c Endocrine On Metformin 500mg BID Novolog sliding scale Hematology: CHF Hold Lasix, repeat labs Restart Lasix with repeat labs Hypertension Continue Lisinopril, monitor BP Disposition: discharge today, repeat labs 3-4 days. Hold Lasix until renal function continues to improve. Minutes to complete discharge: 60 Discharge Summary Reason For Visit: FX DISLOCATION OF ANKLE Current Active Problems Fracture dislocation of ankle (Acute) Opioid dependence with withdrawal (Acute) Condition: Improved - Instructions Diet, Activity, Other Instructions: Mrs. Cobb: Please continue your medications as prescribed. Recommend to monitor your blood work routinely to assure that your kidney function remains stable. Please hydrate with at least 6-8 glasses of water a day. Discharge instructions: * Left posterior and lateral malleolus fracture/dislocation. S/p closed reduction and casting on 08/06/17. Ambulate with walker, strict non weight bearing of left extremity. Will need new xray of left leg in 2 weeks to assess for progressive healing. Seen and followed by Dr. Champion (orthopedics) * Continue continue trazadone, seroquel, valium, suboxone TID, lyrica. * Continue Lovenox 150mg twice daily as ordered for history of DVT (vascular MD Dr. Knox) * Chronic leg ulcers: has completed 14-day course doxycycline. Please call me back with any questions that you may have. Hanna Morfin [place] [employer] [phone] [facility] @ [facility] Referrals: Jorge Champion MD [Staff Physician] - Herbert Knox MD [Staff Physician] - Ann-Marie Oconnor MD [Primary Care Provider] - Disposition: [facility] - Home Medications Comprehensive Discharge Medication List: Ambulatory Orders Pregabalin [Lyrica] 100 mg PO TID 10/02/16 Enoxaparin [Lovenox -] 110 mg SQ BID #60 syr 12/17/16 traZODone HCL [Desyrel -] 150 mg PO HS 03/02/17 Metformin HCl 500 mg PO DAILY 30 Days tab 03/22/17 Quetiapine Fumarate [Seroquel -] 50 mg PO HS #30 tablet 03/23/17 Lisinopril [Prinivil -] 20 mg PO DAILY 05/02/17 Potassium Chloride [K-Dur -] 40 meq PO ONCE #14 tablet.er 05/02/17 Furosemide [Lasix] 80 mg PO DAILY 07/03/17 Docusate Sodium [Colace -] 100 mg PO TID PRN #90 capsule 07/24/17 Doxycycline Hyclate 100 mg PO BID #28 tablet 07/27/17 Buprenorphine/Naloxone [Suboxone 8Mg/2Mg Sl Film -] 1 each SL TID #90 film MDD 3 08/23/17 This patient is new to me today: No Emergency Visit: Yes ED Registration Date: 08/01/17 Care time: The patient presented to the Emergency Department on the above date and was hospitalized for further evaluation of their emergent condition. Critical Care patient: No - Discharge Referral Referred to [facility] No
[2017-08-24] MEDS: NYSTATIN POWDER 100,000 UNITS/GM - 15 GM TOPICAL POWDER TP SCH (11:13)
--- NOTE | 2017-08-24 11:40 | PN ---
Progress Note (short form) - Note Progress Note: Renal follow up for ANASTASIA Pt seen and examined at the bedside awake and alert no acute complaints making urine on IVF for possible discharge today Vital Signs Temperature 97.4 F L 08/24/17 06:00 Pulse Rate 102 H 08/24/17 06:00 Respiratory Rate 22 08/23/17 22:16 Blood Pressure 144/75 08/24/17 06:00 O2 Sat by Pulse Oximetry (%) 97 08/23/17 22:00 Intake & Output 08/21/17 08/22/17 08/23/17 08/24/17 23:59 23:59 23:59 23:59 Intake Total 1625 1925 1000 1050 Balance 1625 1925 1000 1050 Weight 141.691 kg 146.595 kg 142.836 kg NAD awake and alert right LE in cast no edema in RLE CBC, BMP 08/23/17 07:00 08/24/17 06:30 Current Medications Acetaminophen (Tylenol -) 650 mg PO Q6H PRN PRN Reason: PAIN LEVEL 1-5 Last Admin: 08/18/17 16:34 Dose: 650 mg Albuterol Sulfate (Ventolin 0.083% Nebulizer Soln -) 1 amp NEB Q6H PRN PRN Reason: SHORT OF BREATH/WHEEZING Last Admin: 08/24/17 07:52 Dose: 1 amp Bacitracin (Bacitracin -) 1 applic TP DAILY [facility] Last Admin: 08/24/17 10:11 Dose: 1 applic Buprenorphine/Naloxone (Suboxone 8mg/2mg Sl Film -) 1 each SL TID [facility] Last Admin: 08/24/17 06:24 Dose: 1 each Calcium Carbonate/Cholecalciferol (Os-Eros 500+D -) 1 tab PO BID@1200,2200 [facility] Last Admin: 08/23/17 21:46 Dose: 1 tab Docusate Sodium (Colace -) 300 mg PO HS NI Last Admin: 08/23/17 21:45 Dose: 300 mg Enoxaparin Sodium (Lovenox -) 150 mg SQ BID@0600,1800 NI Last Admin: 08/24/17 06:24 Dose: 150 mg Hydrocortisone (Hytone 1% Cream -) 1 applic TP BID PRN PRN Reason: itching Last Admin: 08/13/17 23:59 Dose: 1 applic Potassium Chloride 10 meq/ (Sodium Chloride) 1,005 mls @ 100 mls/hr IV ASDIR [facility] Last Admin: 08/24/17 03:45 Dose: 100 mls/hr Insulin Aspart (Novolog Vial Sliding Scale -) 1 vial SQ ACHS NI PRN Reason: Protocol Last Admin: 08/24/17 06:25 Dose: 2 units Nystatin (Nystop Powder -) 1 applic TP DAILY [facility] Last Admin: 08/24/17 11:13 Dose: 1 applic Ondansetron HCl (Zofran Injection) 4 mg IVPUSH Q6H PRN PRN Reason: NAUSEA AND/OR VOMITING Pregabalin (Lyrica -) 150 mg PO BID [facility] Last Admin: 08/24/17 09:44 Dose: 150 mg Multivit/Folic Acid/Iron ( Vitamins (Sjr) -) 1 tab PO DAILY [facility] Last Admin: 08/24/17 09:44 Dose: 1 tab Quetiapine Fumarate (Seroquel -) 50 mg PO HS [facility] Last Admin: 08/23/17 21:47 Dose: 50 mg Senna (Senna -) 2 tab PO HS [facility] Last Admin: 08/23/17 21:46 Dose: 2 tab Thiamine HCl (Vitamin B1 -) 100 mg PO HS [facility] Last Admin: 08/23/17 21:46 Dose: 100 mg Trazodone HCl (Desyrel -) 150 mg PO HS [facility] Last Admin: 08/23/17 21:46 Dose: 150 mg Vitamin A/Vitamin D (Vitamin A & D Top Oint -) 1 applic TP Q6HPO [facility] Last Admin: 08/24/17 07:49 Dose: Not Given 47 year-old female with a PMH significant for HTN, HLD, CHF, DVT s/p IVC filter , chronic leg ulcers, left big toe wound, and polysubstance abuse on suboxone. Admitted with h/o left ankle fracture with ANASTASIA. #Acute Kidney Injury likely due to renal hypoprofuison in setting of SOWMYA and Diuretics Renal function now improved to baseline stable for discharge from renal perspective can consider restarting ACEi but would need repeat labs in 3-4 days would hold off restarting Lasix as pt does not have significant edema at this time would avoid nsaids at this time until renal function remains stable can D/c IVF now pt can follow up in the office when she is discharged from Rehab Thank you Alejandro Pace DO
[2017-08-24] MEDS: CALCIUM 500MG/VIT-D 200 UNITS COMBO TABLET (FP) PO SCH (11:52)
== END 2017-08-24 13:59 | DRG 342 ==
LOC: JER 07:59 → JERBED 15:45 → J6S 21:30
PROVIDERS: ADMIT Internal Medicine; ATTEND Nurse Practitioner Family
PROC: 0QSHXZZ Reposition Left Tibia, External Approach (ICD-10-PCS; 2017-08-01)
PROC: HZ2ZZZZ Detoxification Services for Substance Abuse Treatment (ICD-10-PCS; 2017-08-03)
PROC: 0QSHXZZ Reposition Left Tibia, External Approach (ICD-10-PCS; principal; 2017-08-07 08:00)
DX: S82.52XA Displaced fracture of medial malleolus of left tibia, initial encounter for closed fracture (principal); N17.9 Acute kidney failure, unspecified; I11.0 Hypertensive heart disease with heart failure; I50.9 Heart failure, unspecified; E87.2 Acidosis; E11.42 Type 2 diabetes mellitus with diabetic polyneuropathy; E11.622 Type 2 diabetes mellitus with other skin ulcer; L97.918 Non-pressure chronic ulcer of unspecified part of right lower leg with other specified severity; L97.829 Non-pressure chronic ulcer of other part of left lower leg with unspecified severity; E66.01 Morbid (severe) obesity due to excess calories; Z68.43 Body mass index [BMI] 50.0-59.9, adult; T50.2X5A Adverse effect of carbonic-anhydrase inhibitors, benzothiadiazides and other diuretics, initial encounter; W00.0XXA Fall on same level due to ice and snow, initial encounter; Y93.29 Activity, other involving ice and snow; Y92.014 Private driveway to single-family (private) house as the place of occurrence of the external cause; Y99.8 Other external cause status; Z86.718 Personal history of other venous thrombosis and embolism; Z79.01 Long term (current) use of anticoagulants; F41.9 Anxiety disorder, unspecified; F32.9 Major depressive disorder, single episode, unspecified; F12.10 Cannabis abuse, uncomplicated; Z79.84 Long term (current) use of oral hypoglycemic drugs; E78.5 Hyperlipidemia, unspecified; F17.219 Nicotine dependence, cigarettes, with unspecified nicotine-induced disorders; D64.9 Anemia, unspecified; F11.23 Opioid dependence with withdrawal; G47.30 Sleep apnea, unspecified; G47.00 Insomnia, unspecified; F19.94 Other psychoactive substance use, unspecified with psychoactive substance-induced mood disorder; I87.8 Other specified disorders of veins; R20.2 Paresthesia of skin; L25.9 Unspecified contact dermatitis, unspecified cause
CPT/HCPCS: 36415; 71045-TC; 72100-TC-FY; 72170-TC-FY; 73590-TC-LT-FY; 73610-TC-LT-FY; 73630-TC-LT; 76000-TC-FY; 80048; 80053; 82550; 82962; 83605; 83735; 84100; 84484; 85025; 85027; 85610; 85730; 86850; 86900; 86901; 93005; 93010; 94010; 94640; 94760; 97116-GP; 97162-GP; 99283-25

== ENCOUNTER 2017-11-27 18:54 | Emergency (ER) | payer OTHER ==
[2017-11-27 19:56] VITALS: BP 149/82; PULSE 82; TEMP 96.8; BMI 40.3
--- NOTE | 2017-11-28 00:03 | PDOC ---
History of Present Illness - General History Source: Patient Exam Limitations: No Limitations - History of Present Illness Initial Comments: 11/28/17 00:10 The patient is a 47 year old female with a significant PMH of polysubstance abuse, diabetes, CHF, and DVT who presents to the emergency department with lower extremity edema. The patient reports that she fractured her left ankle in July and was then admitted to a detention for 3 months. The patient reports that she was recently released from the detention 1 week ago. She states that she had an ortho appointment earlier today to follow up on the fracture. The patient reports that her orthopedic doctor was concerned for a blood clot in her left ankle. The patient reports associated pain with her left ankle swelling. It is noted that the patient walks with a cane. The patient denies chest pain, shortness of breath, headache and dizziness.She denies fever, chills, nausea, vomit, diarrhea ,constipation or urinary symptoms. The patient denies any other complaints. . Pulmonology: Dr Conner <Anoop Vivar - Last Filed: 11/28/17 00:10> <Francesca Chaves - Last Filed: 11/28/17 00:35> - General Chief Complaint: Edema Stated Complaint: SOB/SWELLING OF LEG Time Seen by Provider: 11/27/17 19:39 Past History <Anoop Vivar - Last Filed: 11/28/17 00:10> - Past Medical History Anemia: No Asthma: No Cancer: No Cardiac Disorders: No CVA: No COPD: No CHF: No DVT: Yes Dementia: No Diabetes: Yes (type 2) Dialysis: No (RENAL 2016.) GI Disorders: Yes (diarrhea) Disorders: Yes (bladder prolapse 2011) HTN: Yes Hypercholesterolemia: No Kidney Stones: Yes Liver Disease: No Psychiatric Problems: Yes (anxiety depression) Seizures: No Thyroid Disease: No - Surgical History Abdominal Surgery: Yes Appendectomy: No Cardiac Surgery: No Cholecystectomy: Yes (2003) Lung Surgery: No Neurologic Surgery: No Orthopedic Surgery: No - Immunization History Td Vaccination: Yes Immunization Up to Date: Yes - Suicide/Smoking/Psychosocial Hx Smoking Status: No Smoking History: Never smoked Have you smoked in the past 12 months: No Number of Cigarettes Smoked Daily: 10 Cigars Per Day: 0 Information on smoking cessation initiated: No 'Breaking Loose' booklet given: 03/02/17 Hx Alcohol Use: No Drug/Substance Use Hx: No Substance Use Type: Marijuana, Opiates Hx Substance Use Treatment: Yes (suboxone maintenance 16mg daily /New Focus) <Francesca Chaves - Last Filed: 11/28/17 00:35> - Past Medical History Allergies/Adverse Reactions: Allergies Allergy/AdvReac Type Severity Reaction Status Date / Time No Known Allergies Allergy Verified 11/27/17 19:55 Home Medications: Ambulatory Orders Pregabalin [Lyrica] 150 mg PO TID 10/02/16 traZODone HCL [Desyrel -] 150 mg PO HS 03/02/17 Quetiapine Fumarate [Seroquel -] 50 mg PO HS #30 tablet 03/23/17 Bacitracin - [Bacitracin Topical Ointment -] 1 applic TP DAILY tube 08/24/17 Docusate Sodium [Colace -] 300 mg PO HS capsule 08/24/17 Hydrocortisone 1% Cream [Hytone 1% Cream -] 1 applic TP BID PRN tube 08/24/17 Sennosides [Senna -] 2 tab PO HS tablet 08/24/17 Vitamin A & D Top Oint - 1 applic TP Q6HPO tube 08/24/17 Buprenorphine/Naloxone [Suboxone 8Mg/2Mg Sl Film -] 1 each SL TID #90 packet MDD 3 10/23/17 Furosemide [Lasix] 80 mg PO DAILY 11/27/17 Metformin HCl 500 mg PO DAILY 11/27/17 Metoprolol Tartrate [Lopressor] 40 mg PO DAILY 11/27/17 Zolpidem Tartrate [Ambien] 10 mg PO HS 11/27/17 Review of Systems - Review of Systems Able to Perform ROS?: Yes Comments:: 11/28/17 00:11 CONSTITUTIONAL: Absent: fever, chills, diaphoresis, generalized weakness, malaise, loss of appetite HEENT: Absent: rhinorrhea, nasal congestion, throat pain, throat swelling, difficulty swallowing, mouth swelling, ear pain, eye pain, visual Changes CARDIOVASCULAR: Absent: chest pain, syncope, palpitations, irregular heart rate, lightheadedness , peripheral edema RESPIRATORY: Absent: cough, shortness of breath, dyspnea with exertion, orthopnea, wheezing, stridor, hemoptysis GASTROINTESTINAL: Absent: abdominal pain, abdominal distension, nausea, vomiting, diarrhea, constipation, melena, hematochezia GENITOURINARY: Absent: dysuria, frequency, urgency, hesitancy, hematuria, flank pain, genital pain MUSCULOSKELETAL: Present(+) lower extremity swelling Absent: myalgia, arthralgia, joint swelling SKIN: Absent: rash, itching, pallor HEMATOLOGIC/IMMUNOLOGIC: Absent: easy bleeding, easy bruising, lymphadenopathy, frequent infections ENDOCRINE: Absent: unexplained weight gain, unexplained weight loss, heat intolerance, cold intolerance NEUROLOGIC: Absent: headache, focal weakness or paresthesias, dizziness, unsteady gait, seizure, mental status changes, bladder or bowel incontinence PSYCHIATRIC: Absent: anxiety, depression, suicidal or homicidal ideation, hallucinations. <Anoop Vivar - Last Filed: 11/28/17 00:10> *Physical Exam - Vital Signs Last Vital Signs Temp Pulse Resp BP Pulse Ox 96.8 F L 82 18 149/82 98 11/27/17 19:54 11/27/17 19:54 11/27/17 19:54 11/27/17 19:54 11/27/17 19:54 - Physical Exam Comments: 11/28/17 00:11 GENERAL: Well developed, well nourished. Awake and alert. No acute distress. HEENT: Normocephalic, atraumatic. PERRLA, EOMI. No conjunctival pallor. Sclera are non- icteric. Moist mucous membranes. Oropharynx is clear. NECK: Supple. Full ROM. No JVD. Carotid pulses 2+ and symmetric, without bruits. No thyromegaly. No lymphadenopathy. CARDIOVASCULAR: Regular rate and rhythm. No murmurs, rubs, or gallops. Distal pulses are 2+ and symmetric. PULMONARY: No evidence of respiratory distress. Lungs clear to auscultation bilaterally. No wheezing, rales or rhonchi. ABDOMINAL: (+) Protuberant belly. Soft. Non-tender. Non-distended. No rebound or guarding. No organomegaly. Normoactive bowel sounds. MUSCULOSKELETAL (+) bilateral edema. Greater left leg edema than right leg. Normal range of motion at all joints. No bony deformities or tenderness. No CVA tenderness. EXTREMITIES: No cyanosis. No clubbing. No edema. No calf tenderness. SKIN: Warm and dry. Normal capillary refill. No rashes. No jaundice. NEUROLOGICAL: Alert, awake, appropriate. Cranial nerves 2-12 intact. No deficits to light touch and temperature in face, upper extremities and lower extremities. No motor deficits in the in face, upper extremities and lower extremities. Normoreflexic in the upper and lower extremities. Normal speech. Toes are down- going bilaterally. Gait is normal without ataxia. PSYCHIATRIC: Cooperative. Good eye contact. Appropriate mood and affect. <Anoop Vivar - Last Filed: 11/28/17 00:10> - Vital Signs Last Vital Signs Temp Pulse Resp BP Pulse Ox 96.8 F L 82 18 149/82 98 11/27/17 19:54 11/27/17 19:54 11/27/17 19:54 11/27/17 19:54 11/27/17 19:54 <Francesca Chaves - Last Filed: 11/28/17 00:35> ED Treatment Course - RADIOLOGY Radiology Studies Ordered: Category Date Time Status DUPLEX VASCUL US-1 LEG [US] Stat Ultrasound 11/27/17 21:56 Completed <Francesca Chaves - Last Filed: 11/28/17 00:35> *DC/Admit/Observation/Transfer - Attestations Scribe Attestion: 11/28/17 00:11 Documentation prepared by Anoop Vivar, acting as medical physics teacher for Francesca Chaves MD. <Anoop Vivar - Last Filed: 11/28/17 00:10> <Francesca Chaves - Last Filed: 11/28/17 00:35> Diagnosis at time of Disposition: Leg DVT (deep venous thromboembolism), chronic Qualifiers: Laterality: left Qualified Code(s): I82.502 - Chronic embolism and thrombosis of unspecified deep veins of left lower extremity - Discharge Dispostion Disposition: HOME Condition at time of disposition: Fair - Referrals Referrals: Ann-Marie Oconnor MD [Primary Care Provider] - - Patient Instructions Printed Discharge Instructions: DI for Deep Vein Thrombosis Additional Instructions: it is very important to take your lovenox to prevent clots return for any worsening symptoms - Post Discharge Activity
[2017-11-28] MEDS ORDERED: LABETALOL HCL 200 MG TABLET (FP) PO ONE (00:46)
[2017-11-28] MEDS ORDERED: ENOXAPARIN NA (PORCINE) 60 MG/0.6 ML DISP.SYRIN SQ ONE (00:49)
[2017-11-28] MEDS ORDERED: ENOXAPARIN NA (PORCINE) 120 MG/0.8 ML DISP.SYRIN SQ SCH (01:00)
== END 2017-11-28 00:50 | disposition home or self-care (01) ==
LOC: JER 18:54
PROC: 3E033GC Introduction of Other Therapeutic Substance into Peripheral Vein, Percutaneous Approach (ICD-10-PCS; principal; 2017-11-27)
DX: I82.502 Chronic embolism and thrombosis of unspecified deep veins of left lower extremity (principal); I10 Essential (primary) hypertension; F41.8 Other specified anxiety disorders; R19.7 Diarrhea, unspecified
CPT/HCPCS: 93971-TC; 96372; 99283-25

== ENCOUNTER 2018-05-25 21:12 | Observation (INO) | payer OTHER ==
[2018-05-25 21:17] VITALS: BMI 49.9
--- NOTE | 2018-05-25 21:59 | PDOC ---
Attending Attestation - HPI HPI: 05/25/18 23:27 The patient is a 48 year old female, with a significant PMH of polysubstance abuse, hypertension, diabetes, CHF, and DVT (s/p IVC filter on AC), who presents to the emergency department with multiple complaints. The patient states she experienced a tooth throbbing sensation after having steak last night and upon waking up this morning endorses swelling around her eye which progressed to the left side of her face. The patient also reports while walking up the stairs today she experienced a pressure-like sensation in her chest, radiating to the left shoulder, with associated shortness of breath, which lasted for 2 minutes before resolving on its own. The patient denies palpitations, lightheadedness, headache and dizziness. Denies fever, chills, nausea, vomit, diarrhea and constipation. Denies dysuria, frequency, urgency and hematuria. Allergies: NKA Documentation prepared by Andi Zavala, acting as medical insurance collector for Enrique Cuellar MD <Andi Zavala - Last Filed: 05/25/18 23:27> - Resident Resident Name: Drew Dunn - ED Attending Attestation I have performed the following: I have examined & evaluated the patient, The case was reviewed & discussed with the resident, I agree w/resident's findings & plan, Exceptions are as noted - Physicial Exam PE: 05/26/18 00:18 Patient is awake and alert, morbidly obese, mildly hypoxemic on room air; in mild distress Normocephalic, atraumatic PERRLA, EOMI + Significant left facial soft tissue swelling extending from the angle of mandible to the infraorbital area and involving the lower eyelid; + Poor dentition; no gingival induration; + tenderness on percussion of tooth # 12 Neck is supple, there is no cervical lymphadenopathy CTA RRR - Medical Decision Making 05/26/18 00:19 48-year-old female with multiple comorbidities, presents with facial swelling likely Dr. Mar and origin as well as atraumatic chest discomfort with mild shortness of breath. We will rule out facial abscess with CT of face with IV contrast. We will treat for ACS (EKG without acute ischemia at this time); P highly unlikely given the fact the patient has an IVC filter and is currently being treated with Lovenox twice a day. Likely admission. 05/26/18 02:15 ct face shows small left maxillary collection. will r/o [place] with serial cardiac troponins. will administer additional dose of iv clindamycin. will transfer to [facility] for OMFs eval. <Enrique Cuellar - Last Filed: 05/26/18 02:17>
--- NOTE | 2018-05-25 22:03 | PDOC ---
History of Present Illness - General History Source: Patient Exam Limitations: No Limitations - History of Present Illness Initial Comments: 05/25/18 21:37 The patient is a 48F with a PMH of polysubstance abuse, diabetes, CHF, and DVT' s (s/p IVC filter on AC) who presents to the ER with multiple complaints. The patient states that she ate a steak yesterday and felt her tooth throbbing. This morning, she woke up and noted some swelling around her eye, which progressed to full L sided facial swelling. She also states that she was going up the stairs today and felt a "small twinge" in her chest which resolved after 2 minutes. It is located in her L parasternum, described as pressure, and radiated to her L mid axillary line. She admits to some shortness of breath during this episode. She denies nausea, vomiting, diaphoresis, palpitations, and lightheadedness today. <Drew Dunn - Last Filed: 05/26/18 02:01> <Kelly Gooden - Last Filed: 05/26/18 04:31> - General Chief Complaint: Edema Stated Complaint: HEADACHE, HTN, CHEST PAIN, DIABETES Time Seen by Provider: 05/25/18 21:19 Past History - Past Medical History Anemia: No Asthma: No Cancer: No Cardiac Disorders: No CVA: No COPD: No CHF: No DVT: Yes Dementia: No Diabetes: Yes (type 2) Dialysis: No (RE[facility] 2016.) GI Disorders: Yes (diarrhea) Disorders: Yes (bladder prolapse 2011) HTN: Yes Hypercholesterolemia: No Kidney Stones: Yes Liver Disease: No Psychiatric Problems: Yes (anxiety depression) Seizures: No Thyroid Disease: No - Surgical History Abdominal Surgery: Yes Appendectomy: No Cardiac Surgery: No Cholecystectomy: Yes (2003) Lung Surgery: No Neurologic Surgery: No Orthopedic Surgery: No - Immunization History Td Vaccination: Yes Immunization Up to Date: Yes - Suicide/Smoking/Psychosocial Hx Smoking Status: No Smoking History: Never smoked Have you smoked in the past 12 months: No Number of Cigarettes Smoked Daily: 10 Cigars Per Day: 0 'Breaking Loose' booklet given: 03/02/17 Hx Alcohol Use: No Drug/Substance Use Hx: No Substance Use Type: Marijuana, Opiates Hx Substance Use Treatment: Yes (suboxone maintenance 16mg daily /New Focus) <Drew Dunn - Last Filed: 05/26/18 02:01> <Kelly Gooden - Last Filed: 05/26/18 04:31> - Past Medical History Allergies/Adverse Reactions: Allergies Allergy/AdvReac Type Severity Reaction Status Date / Time No Known Allergies Allergy Verified 05/25/18 21:18 Home Medications: Ambulatory Orders Pregabalin [Lyrica] 100 mg PO TID 10/02/16 Bacitracin - [Bacitracin Topical Ointment -] 1 applic TP DAILY tube 08/24/17 Hydrocortisone 1% Cream [Hytone 1% Cream -] 1 applic TP BID PRN tube 08/24/17 Vitamin A & D Top Oint - 1 applic TP Q6HPO tube 08/24/17 Furosemide [Lasix] 80 mg PO DAILY 11/27/17 Enoxaparin [Lovenox -] 120 mg SQ BID #60 disp.syrin 11/28/17 Acetaminophen [Tylenol] 325 mg PO TID PRN 12/04/17 metFORMIN HCL [Metformin HCl] 500 mg PO BID 12/04/17 Lisinopril 20 mg PO DAILY 01/23/18 Zolpidem Tartrate [Ambien] 10 mg PO HS 01/23/18 traZODone HCL [Desyrel -] 100 mg PO HS 02/13/18 Escitalopram Oxalate [Lexapro -] 5 mg PO DAILY #14 tablet 05/17/18 Quetiapine Fumarate [Seroquel -] 50 mg PO HS #30 tablet 05/17/18 Buprenorphine/Naloxone [Suboxone 8Mg/2Mg Sl Film -] 1 each SL BID #14 packet MDD 2 05/21/18 Review of Systems - Review of Systems Able to Perform ROS?: Yes Comments:: 05/25/18 22:57 GENERAL/CONSTITUTIONAL: No fever or chills. No weakness. HEAD, EYES, EARS, NOSE AND THROAT: Positive for L facial swelling. No change in vision. No ear pain or discharge. No sore throat. CARDIOVASCULAR: Positive for resolved CP. No palpitations or lightheadedness. RESPIRATORY: Positive for resolved SOB. No cough, wheezing, or hemoptysis. GASTROINTESTINAL: No nausea, vomiting, diarrhea, constipation, or abdominal pain. GENITOURINARY: No dysuria, frequency, hematuria, or change in urination. MUSCULOSKELETAL: No joint or muscle swelling or pain. No neck or back pain. SKIN: No rash or lesions. NEUROLOGIC: No headache, numbness, tingling, focal weakness, loss of consciousness, or change in strength/sensation. Is the patient limited Green[place]ic proficient: No <BeaupatricoryalDrew - Last Filed: 05/26/18 02:01> *Physical Exam - Vital Signs Last Vital Signs Temp Pulse Resp BP Pulse Ox 98.4 F 93 H 93 H 161/107 H 93 L 05/25/18 21:15 05/25/18 21:15 05/25/18 21:15 05/25/18 21:15 05/25/18 21:15 - Physical Exam Comments: 05/25/18 23:21 GENERAL: Well developed, well nourished. Awake and alert. No acute distress. HEENT: Extremely poor dentition. L facial swelling, most notably over zygomatic process. Normocephalic, atraumatic. Hearing grossly normal. Moist mucous membranes. PERRLA, EOMI. No conjunctival pallor. Sclera are non-icteric. NECK: Supple. Full ROM. No JVD. CARDIOVASCULAR: Regular rate and rhythm. No murmurs, rubs, or gallops. PULMONARY: No evidence of respiratory distress. Lungs clear to auscultation bilaterally. No wheezing, rales or rhonchi. ABDOMINAL: Soft. Non-tender. Non-distended. No rebound or guarding. GENITOURINARY: No CVA tenderness bilaterally. MUSCULOSKELETAL: Normal range of motion at all joints. No bony deformities or tenderness. EXTREMITIES: No cyanosis. No clubbing. No edema. No calf tenderness or swelling. SKIN: Warm and dry. Normal capillary refill. No rashes. No jaundice. NEUROLOGICAL: Alert, awake, appropriate. Cranial nerves 2-12 grossly intact. Normal speech. Gait is normal without ataxia. PSYCHIATRIC: Cooperative. Good eye contact. Appropriate mood and affect. <SagrarioroyalDrew - Last Filed: 05/26/18 02:01> - Vital Signs Last Vital Signs Temp Pulse Resp BP Pulse Ox 98.4 F 85 21 H 150/99 94 L 05/25/18 21:15 05/25/18 23:16 05/25/18 23:16 05/25/18 23:16 05/25/18 23:16 <Kelly Gooden - Last Filed: 05/26/18 04:31> ED Treatment Course - LABORATORY CBC & Chemistry Diagram: 05/25/18 22:00 05/25/18 22:00 <Drew Dunn - Last Filed: 05/26/18 02:01> - LABORATORY CBC & Chemistry Diagram: 05/25/18 22:00 05/25/18 22:00 - ADDITIONAL ORDERS Additional order review: Laboratory Results 05/25/18 05/25/18 05/25/18 22:03 22:03 22:00 PT with INR 12.80 INR 1.08 Sodium 140 Potassium 4.3 Chloride 102 Carbon Dioxide 29 Anion Gap 9 BUN 15 Creatinine 0.9 Creat Clearance w eGFR > 60 Random Glucose 153 H Calcium 9.2 Total Bilirubin 0.5 AST 12 L ALT 26 Alkaline Phosphatase 84 Creatine Kinase 36 Troponin I < 0.02 Total Protein 7.8 Albumin 4.0 Serum , Qual Negative 05/25/18 22:00 RBC 5.20 MCV 87.9 MCHC 33.2 RDW 13.1 D MPV 8.6 Neutrophils % 86.4 H D Lymphocytes % 7.7 L D Monocytes % 5.1 Eosinophils % 0.4 D Basophils % 0.4 - Medications Given in the ED: ED Medications Discontinued Medications Generic Name Dose Route Start Last Admin Trade Name Shavon PRN Reason Stop Dose Admin Acetaminophen 650 mg 05/25/18 23:40 05/26/18 00:07 Tylenol - PO 05/25/18 23:41 650 mg ONCE ONE Administration Clindamycin Phosphate 900 mg in 50 mls @ 100 mls/hr 05/25/18 23:24 05/26/18 00:07 Cleocin 900 Mg Premix Ivpb - IVPB 05/25/18 23:53 100 mls/hr ONCE ONE Administration Protocol Morphine Sulfate 2 mg 05/26/18 04:20 05/26/18 04:30 Morphine Injection - IVPUSH 05/26/18 04:21 Not Given ONCE ONE <Kelly Gooden - Last Filed: 05/26/18 04:31> Medical Decision Making - Medical Decision Making 05/25/18 23:25 The patient is a 48F with a PMH of CHF, DVT's on lovenox w/ IVC filter who presents to the ER with resolved CP and L facial swelling concerning for apical abscess, recurrent PE (less likely 2/2 IVC filter and lovenox), ACS. Pending labs and imaging. Pt well appearing. Went outside to smoke a cigarette. 05/25/18 23:39 CBC reveals WBC of 15.6 with L shift. Giving abx. EKG reveals new S1Q3T3 but the patient is already on lovenox. 05/26/18 01:[address] facial bones shows small abscess on L maxillary bone. Will repeat troponin in 4 hours from first draw then transfer to a facility with OMFS. Repeat troponin ordered. Should give 300 IV clinda at 0600. Pt signed out to Dr. Quach for further care. <Drew Dunn - Last Filed: 05/26/18 02:01> *DC/Admit/Observation/Transfer <Drew Dunn - Last Filed: 05/26/18 02:01> - Transfer to Acute Care Facility Receiving Facility: [facility]. Accepting Physician:: Dr. Simon Hanson (attending[address] Jackson(resident/fellow ) <Kelly Gooden - Last Filed: 05/26/18 04:31> Diagnosis at time of Disposition: Facial abscess - Discharge Dispostion Disposition: TRANSFER ACUTE CARE/OTHER HOSP Condition at time of disposition: Guarded
[2018-05-25 22:11] LABS: BASO % 0.4 % (0-2.0); EOS % 0.4 % (0-4.5); HEMATOCRIT 45.7 % (32.4-45.2); HEMOGLOBIN 15.2 GM/dL (10.7-15.3); LYMPH % 7.7 % (8-40); MCH 29.2 pg (25.7-33.7); MCHC 33.2 g/dl (32.0-36.0); MEAN CELL VOLUME 87.9 fl (80-96); MEAN PLT VOLUME 8.6 fl (7.5-11.1); MONO % 5.1 % (3.8-10.2); NEUT % 86.4 % (42.8-82.8); PLATELET COUNT 290 K/MM3 (134-434); RDW 13.1 % (11.6-15.6); WHITE BLOOD COUNT 15.6 K/mm3 (4.0-10.0)
[2018-05-25 22:39] LABS: ALK PHOS 84 U/L (45-117); ANION GAP 9 MMOL/L (8-16); BILIRUBIN,TOTAL 0.5 mg/dL (0.2-1); BLOOD UREA NITROGEN 15 mg/dL (7-18); CALCIUM 9.2 mg/dL (8.5-10.1); CHLORIDE 102 mmol/L (98-107); CO2 29 mmol/L (21-32); CREATININE 0.9 mg/dL (0.55-1.3); GLUCOSE,RANDOM 153 mg/dL (74-106); POTASSIUM 4.3 mmol/L (3.5-5.1); SGOT/AST 12 U/L (15-37); SGPT/ALT 26 U/L (13-61); SODIUM 140 mmol/L (136-145); TOT PROT 7.8 g/dl (6.4-8.2)
[2018-05-25] MEDS ORDERED: CLINDAMYCIN 900 MG PREMIX IVPB 900 MG/50 ML BAG IVPB ONE ×2 (23:24→23:54)
[2018-05-25] MEDS ORDERED: ACETAMINOPHEN 325 MG TABLET (FP) PO ONE (23:40)
[2018-05-25 23:46] LABS: INR 1.08 (0.83-1.09); PROTHROMBIN TIME (PATIENT) 12.8 SEC (9.7-13.0)
[2018-05-25] MEDS ORDERED: ACETAMINOPHEN 325 MG TABLET (FP) ONE (23:54)
[2018-05-26] MEDS ORDERED: morphine CARPU-JECT 2 MG/1 ML DISP.SYRIN IVPUSH ONE ×2 (04:20→04:27)
[2018-05-26] MEDS ORDERED: MORPHINE SULFATE 2 MG/ML VIAL ONE (04:31)
[2018-05-26 05:37] VITALS: BP 146/88; PULSE 120; TEMP 97.8
--- NOTE | 2018-05-26 18:51 | EKG ---
Test Reason : Blood Pressure : / mmHG Vent. Rate : 099 BPM Atrial Rate : 099 BPM P-R Int : 144 ms QRS Dur : 094 ms QT Int : 364 ms P-R-T Axes : 038 069 021 degrees QTc Int : 467 ms NORMAL SINUS RHYTHM NORMAL ECG WHEN COMPARED WITH ECG OF 08-AUG-2017 20:26, NO SIGNIFICANT CHANGE WAS FOUND Confirmed by BRETT DANGELO MD ([id number]) on 05/26/2018 6:51:01 PM Referred By: Confirmed By:BRETT DANGELO MD
== END 2018-05-26 05:30 | disposition short-term general hospital (02) ==
LOC: JER 21:12 → JERBED 05-26 02:02
PROVIDERS: ADMIT Internal Medicine; ATTEND Internal Medicine
PROC: 3E03329 Introduction of Other Anti-infective into Peripheral Vein, Percutaneous Approach (ICD-10-PCS; principal; 2018-05-26)
PROC: 3E033NZ Introduction of Analgesics, Hypnotics, Sedatives into Peripheral Vein, Percutaneous Approach (ICD-10-PCS; 2018-05-26)
DX: L02.01 Cutaneous abscess of face (principal); I10 Essential (primary) hypertension; E11.9 Type 2 diabetes mellitus without complications; F11.20 Opioid dependence, uncomplicated; I50.9 Heart failure, unspecified; Z79.01 Long term (current) use of anticoagulants
CPT/HCPCS: 36415; 70487-TC; 71045-TC-FY; 80053; 82550; 84484; 84703; 85025; 85610; 93005; 93010; 96365; 96375; 96376; 99283-25; G0378

== ENCOUNTER 2018-06-15 17:33 | Inpatient (IN) | payer OTHER ==
--- NOTE | 2018-06-15 17:49 | PDOC ---
Attending Attestation - HPI HPI: 06/15/18 19:29 The patient is a 48 year old female, with a significant PMH of polysubstance abuse, diabetes, CHF, and DVT who presents to the emergency department with after 3 syncopal episodes earlier today. Patient reports all the episodes were witnessed, patient admits to LOC lasting for a few seconds. Patient reports she had palpitations, elevated blood pressure, dizziness, and generalized weakness prior to onset of these syncopal episodes. Patient was attempting to get out of bed here in the ED and fell onto her left leg, denies head trauma. Patient is now complaining of left lower extremity pain. She denies any left leg pain prior to her syncopal episodes. The patient denies chest pain, shortness of breath, headache and dizziness.She denies fever, chills, nausea, vomit, diarrhea ,constipation or urinary symptoms. The patient denies any other complaints. . Allergies: NKA Past surgical history: None reported. Social history: No reported alcohol. Current smoker. Drug user. <Char Arenas - Last Filed: 06/15/18 23:31> - Resident Resident Name: Art Lindsey - Physicial Exam PE: 06/16/18 01:51 Agree with resident exam. Patient is alert and in no acute distress. Abdomen is soft, non tender and non distended. patient is neurologically intact. LLE has tenderness of the tib fib with no tenderness at the knee or ankle and no deformity. - Medical Decision Making 06/16/18 01:52 Pt presents to the Ed complaining of abdominal pain and LLE pain. Tachycardic in the ED with very elevated lactate and WBC count. Started on broad spectrum antibiotics. Initial work up including Ua and Ct scan abdomen is negative. Will admit to medicine for severe dehydration vs sepsis and continued work up. 06/16/18 01:53 06/16/18 01:55 <Jany Kimbrough - Last Filed: 06/16/18 01:56>
--- NOTE | 2018-06-15 17:51 | PDOC ---
History of Present Illness - General Chief Complaint: SIRS, Suspected/Possible Stated Complaint: NAUSEA/VOMITT Time Seen by Provider: 06/15/18 17:46 History Source: Patient Exam Limitations: No Limitations - History of Present Illness Initial Comments: 06/15/18 19:34 48 yo F with a hx of polysubstance abuse (recently ceased suboxone on own accord ; last administration 2 weeks ago), DM, HTN, CHF, DVT (yr unknown, s/p IVC filter on lovenox) presents to the emergency department with N/V/D for 3 days with concurrent LLQ and periumbilical abdominal pain that is non radiating, dull , and does not have aggravating or relieving aspects. Per the patient, she denies non-bloody emesis, but endorses "green vomit". Concurrently, she states she had 3x syncopal episodes today, with 2x in the morning and 1x at approximately 5pm with all three while she was walking with unknown amount of time down. She states she felt palpitations and lightheadedness, but denies chest pain, nausea/vomiting, and SOB prior to the fall. Per the patient, she stopped taking her suboxone due to wanting to taper off for personal reasons. On ROS, endorses the following: headaches, palpitations, malaise, fever/chills, right sided weakness, and visual changes. Denies the following: recent travels, immobilization, surgeries, hormone use, dysuria, hematuria, hematochezia, and melena. Pmhx: Refer to above Shx: CHolecytectomy 2004 Meds: lovenox (States she is compliant). Does not remember her other medications Allergies: NKDA Social: Endorses tobacco and marijuana use. Denies alcohol. Past History - Past Medical History Allergies/Adverse Reactions: Allergies Allergy/AdvReac Type Severity Reaction Status Date / Time No Known Allergies Allergy Verified 06/15/18 17:43 Home Medications: Ambulatory Orders Pregabalin [Lyrica] 100 mg PO TID 10/02/16 Bacitracin - [Bacitracin Topical Ointment -] 1 applic TP DAILY tube 08/24/17 Hydrocortisone 1% Cream [Hytone 1% Cream -] 1 applic TP BID PRN tube 08/24/17 Vitamin A & D Top Oint - 1 applic TP Q6HPO tube 08/24/17 Enoxaparin [Lovenox -] 120 mg SQ BID #60 disp.syrin 11/28/17 Acetaminophen [Tylenol] 325 mg PO TID PRN 12/04/17 metFORMIN HCL [Metformin HCl] 500 mg PO BID 12/04/17 Lisinopril 20 mg PO DAILY 01/23/18 Zolpidem Tartrate [Ambien] 10 mg PO HS 01/23/18 traZODone HCL [Desyrel -] 100 mg PO HS 02/13/18 Escitalopram Oxalate [Lexapro -] 5 mg PO DAILY #14 tablet 05/17/18 Quetiapine Fumarate [Seroquel -] 50 mg PO HS #30 tablet 05/17/18 Buprenorphine/Naloxone [Suboxone 8Mg/2Mg Sl Film -] 1 each SL BID #14 packet MDD 2 05/21/18 Anemia: No Asthma: No Cancer: No Cardiac Disorders: No CVA: No COPD: No CHF: No DVT: Yes Dementia: No Diabetes: Yes (type 2) Dialysis: No ([facility] 2016.) GI Disorders: Yes (diarrhea) Disorders: Yes (bladder prolapse 2011) HTN: Yes Hypercholesterolemia: No Kidney Stones: Yes Liver Disease: No Psychiatric Problems: Yes (anxiety depression) Seizures: No Thyroid Disease: No - Surgical History Abdominal Surgery: Yes Appendectomy: No Cardiac Surgery: No Cholecystectomy: Yes (2003) Lung Surgery: No Neurologic Surgery: No Orthopedic Surgery: No - Immunization History Td Vaccination: Yes Immunization Up to Date: Yes - Suicide/Smoking/Psychosocial Hx Smoking Status: No Smoking History: Current every day smoker Have you smoked in the past 12 months: Yes Number of Cigarettes Smoked Daily: 5 Cigars Per Day: 0 Information on smoking cessation initiated: No 'Breaking Loose' booklet given: 03/02/17 Hx Alcohol Use: No Drug/Substance Use Hx: No Substance Use Type: Marijuana, Opiates Hx Substance Use Treatment: Yes (suboxone maintenance 16mg daily /New Focus) Review of Systems - Review of Systems Able to Perform ROS?: Yes Is the patient limited Malay proficient: No Constitutional: Yes: Chills, Diaphoresis, Fever, Malaise, Weakness HEENTM: Yes: Recent change in vision. No: Ear Pain, Nose Pain, Nose Congestion , Throat Pain, Throat Swelling, Mouth Pain, Mouth Swelling Respiratory: No: Shortness of Breath, SOB with Exertion, Hemoptysis Cardiac (ROS): Yes: Lightheadedness, Palpitations, Syncope. No: Chest Pain, Edema, Chest Tightness ABD/GI: Yes: Diarrhea, Nausea, Poor Appetite, Poor Fluid Intake, Vomiting, Abdominal cramping. No: Constipated, Rectal Bleeding, Tarry Stools : No: Burning, Dysuria, Discharge, Frequency, Flank Pain, Hematuria Musculoskeletal: Yes: Joint Pain (left knee pain). No: Back Pain Integumentary: No: Bruising, Lumps Neurological: Yes: Weakness. No: Headache, Numbness, Tremors, Unsteady Gait, Ataxia, Dizziness Psychiatric: No: Stressors Endocrine: No: Unexplained Weight Gain Hematologic/Lymphatic: No: Anemia *Physical Exam - Vital Signs Last Vital Signs Temp Pulse Resp BP Pulse Ox 99.3 F 123 H 20 191/118 H 97 06/15/18 17:44 06/15/18 17:44 06/15/18 17:44 06/15/18 17:44 06/15/18 17:44 - Physical Exam General Appearance: Yes: Nourished, Appropriately Dressed, Obese. No: Apparent Distress, Alcohol on Breath HEENT: positive: EOMI, KENNA (pupils slightly mydriatic bilaterally.), Normal Voice, Symmetrical, Hearing Grossly Normal, Other (dental rottening upper and lower). negative: Scleral Icterus (R), Scleral Icterus (L), Muffled/Hoarse voice, Lesions, Porter Neck: negative: Tender, Lymphadenopathy (R), Lymphadenopathy (L), Tender lateral , Tender midline Respiratory/Chest: positive: Lungs Clear, Normal Breath Sounds. negative: Chest Tender, Respiratory Distress, Accessory Muscle Use, Decreased Breath Sounds, Paradoxal Breathing, Crackles, Rales, Rhonchi, Stridor, Wheezing, Hyperresonant Cardiovascular: positive: Regular Rhythm, S1, S2, Tachycardia. negative: Systolic Murmur Gastrointestinal/Abdominal: positive: Normal Bowel Sounds, Tender ( periumbilical and LLQ), Protuberent. negative: Distended, Rebound Lymphatic: negative: Adenopathy Musculoskeletal: positive: Normal Inspection. negative: CVA Tenderness, Vertebral Tenderness Extremity: positive: Normal Capillary Refill, Normal Inspection, Pelvis Stable. negative: Normal Range of Motion, Tender Integumentary: positive: Normal Color, Dry, Warm. negative: Diaphoresis, Swelling Neurologic: positive: speech language assistant II-XII NML intact, Fully Oriented, Alert, Normal Mood/ Affect, Normal Response, Finger to Nose. negative: Motor Strength 5/5 (motor strength equally bilaterally UE. Right LE 5/5 strength. Left LE 1/5 strength ( likely voluntary as it was moving earlier in exam)), EOM Palsy, Facial Droop, Sensory Deficit Moderate Sedation - Procedure Monitoring Vital Signs: Procedure Monitoring Vital Signs Temperature 99.3 F 06/15/18 17:44 Pulse Rate 123 H 06/15/18 17:44 Respiratory Rate 20 06/15/18 17:44 Blood Pressure 191/118 H 06/15/18 17:44 O2 Sat by Pulse Oximetry (%) 97 06/15/18 17:44 Heart Score/ECG Review - ECG Intrepretation Comment:: 06/16/18 04:27 sinus tachycardia with no ST elevations or depressions with a TWI in III ED Treatment Course - LABORATORY CBC & Chemistry Diagram: 06/15/18 18:44 06/16/18 02:41 Medical Decision Making - Medical Decision Making 48 yo F with a hx of polysubstance abuse (recently ceased suboxone on own accord ; last administration 2 weeks ago), DM, HTN, CHF, DVT (yr unknown, s/p IVC filter on lovenox) presents to the emergency department with N/V/D for 3 days with concurrent LLQ and periumbilical abdominal pain that is non radiating, dull , and does not have aggravating or relieving aspects Initial vitals: Initial Vital Signs Temp Pulse Resp BP Pulse Ox 99.3 F 123 H 20 191/118 H 97 06/15/18 17:44 06/15/18 17:44 06/15/18 17:44 06/15/18 17:44 06/15/18 17:44 06/15/18 18:36 Began shaking violently her left leg and cried out that she was having a seizure and that she may be withdrawing from suboxone. It was explained to her while her left leg was shaking that she was not having a seizure and she said ok and stopped shaking. 06/15/18 19:13 It was relayed to me by Judi Kingsley that the patient fell out of bed while getting out to use the bathroom. An incident report will be filed. Work up: patient has a broad differential given her chief complaints. syncopal episode possibly due to cardiogenic etiology vs infectious vs metabolic vs neurogenic vs intracranial. concerns exist for 3x head trauma episodes given her syncopal events need to r/o intracranial bleed. Nausea/vomiting/diarrhea/abdominal pain ddx: colitis vs diverticulitis vs SBO vs gastroenteritis (unlikely to be SBO given input/output). diagnosis: sepsis protocol tx: 500 cc NS 0.9% (unknown status of CHF), tylenol 1gram IV, zofran 4mg IV. Laboratory Tests 06/15/18 06/15/18 06/15/18 18:30 18:44 18:44 WBC 17.3 H RBC 5.86 H Hgb 16.3 H Hct 51.2 H MCV 87.3 MCH 27.7 MCHC 31.8 L RDW 13.8 Plt Count 432 D MPV 8.8 Absolute Neuts (auto) 12.9 H Neutrophils % 74.3 Lymphocytes % 13.9 D Monocytes % 11.2 H D Eosinophils % 0.0 D Basophils % 0.6 Nucleated RBC % 0 ESR PT with INR 13.30 H INR 1.13 H PTT (Actin FS) 25.2 Sodium Potassium Chloride Carbon Dioxide Anion Gap BUN Creatinine Creat Clearance w eGFR Random Glucose Lactic Acid 8.2 H* Calcium Total Bilirubin AST ALT Alkaline Phosphatase Creatine Kinase Troponin I C-Reactive Protein Total Protein Albumin Vitamin B12 TSH Beta HCG, Quant Urine Color Urine Appearance Urine pH Ur Specific [place] Urine Protein Urine Glucose (UA) Urine Ketones Urine Blood Urine Nitrite Urine Bilirubin Urine Urobilinogen Ur Leukocyte Esterase Urine WBC (Auto) Urine RBC (Auto) Ur Epithelial Cells Urine Bacteria Hyaline Casts Urine Mucus Urine HCG, Qual Opiates Screen Methadone Screen Barbiturate Screen Phencyclidine Screen Ur Amphetamines Screen MDMA (Ecstasy) Screen Benzodiazepines Screen Cocaine Screen U Marijuana (THC) Screen HIV 1&2 Antibody Screen HIV P24 Antigen 06/15/18 06/15/18 06/15/18 18:44 19:23 19:37 WBC RBC Hgb Hct MCV MCH MCHC RDW Plt Count MPV Absolute Neuts (auto) Neutrophils % Lymphocytes % Monocytes % Eosinophils % Basophils % Nucleated RBC % ESR PT with INR INR PTT (Actin FS) Sodium Cancelled 139 Potassium Cancelled 3.9 Chloride Cancelled 100 Carbon Dioxide Cancelled 19 L Anion Gap Cancelled 20 H BUN Cancelled 26 H Creatinine Cancelled 1.3 Creat Clearance w eGFR Cancelled 44.10 Random Glucose Cancelled 214 H Lactic Acid Calcium Cancelled 10.1 Total Bilirubin Cancelled 0.8 AST Cancelled 14 L ALT Cancelled 26 Alkaline Phosphatase Cancelled 91 Creatine Kinase Cancelled 63 Troponin I Cancelled < 0.02 C-Reactive Protein Total Protein Cancelled 9.0 H Albumin Cancelled 4.6 Vitamin B12 TSH Beta HCG, Quant Cancelled < 1.0 Urine Color Ledy Urine Appearance Cloudy Urine pH 5.0 Ur Specific [place] 1.031 Urine Protein 3+ H Urine Glucose (UA) Negative Urine Ketones Trace H Urine Blood Negative Urine Nitrite Negative Urine Bilirubin Negative Urine Urobilinogen 2.0 H Ur Leukocyte Esterase Negative Urine WBC (Auto) 4 Urine RBC (Auto) 2 Ur Epithelial Cells Moderate Urine Bacteria Rare Hyaline Casts 16 Urine Mucus Few Urine HCG, Qual Negative Opiates Screen Methadone Screen Barbiturate Screen Phencyclidine Screen Ur Amphetamines Screen MDMA (Ecstasy) Screen Benzodiazepines Screen Cocaine Screen U Marijuana (THC) Screen HIV 1&2 Antibody Screen HIV P24 Antigen 06/15/18 06/15/18 06/16/18 19:37 22:51 02:41 WBC RBC Hgb Hct MCV MCH MCHC RDW Plt Count MPV Absolute Neuts (auto) Neutrophils % Lymphocytes % Monocytes % Eosinophils % Basophils % Nucleated RBC % ESR PT with INR INR PTT (Actin FS) Sodium Potassium Chloride Carbon Dioxide Anion Gap BUN Creatinine Creat Clearance w eGFR Random Glucose Lactic Acid 2.5 H* Calcium Total Bilirubin AST ALT Alkaline Phosphatase Creatine Kinase Troponin I C-Reactive Protein 0.5 H Total Protein Albumin Vitamin B12 262 TSH 0.48 Beta HCG, Quant Urine Color Urine Appearance Urine pH Ur Specific [place] Urine Protein Urine Glucose (UA) Urine Ketones Urine Blood Urine Nitrite Urine Bilirubin Urine Urobilinogen Ur Leukocyte Esterase Urine WBC (Auto) Urine RBC (Auto) Ur Epithelial Cells Urine Bacteria Hyaline Casts Urine Mucus Urine HCG, Qual Opiates Screen Negative Methadone Screen Negative Barbiturate Screen Negative Phencyclidine Screen Negative Ur Amphetamines Screen Negative MDMA (Ecstasy) Screen Negative Benzodiazepines Screen Negative Cocaine Screen Negative U Marijuana (THC) Screen Positive A* HIV 1&2 Antibody Screen HIV P24 Antigen 06/16/18 06/16/18 06/16/18 02:41 02:41 02:41 WBC RBC Hgb Hct MCV MCH MCHC RDW Plt Count MPV Absolute Neuts (auto) Neutrophils % Lymphocytes % Monocytes % Eosinophils % Basophils % Nucleated RBC % ESR 7 PT with INR INR PTT (Actin FS) Sodium 138 Potassium 3.6 Chloride 102 Carbon Dioxide 22 Anion Gap 14 BUN 30 H Creatinine 1.2 Creat Clearance w eGFR 48.36 Random Glucose 233 H Lactic Acid Calcium 9.9 Total Bilirubin AST ALT Alkaline Phosphatase Creatine Kinase Troponin I C-Reactive Protein Total Protein Albumin Vitamin B12 TSH Beta HCG, Quant Urine Color Urine Appearance Urine pH Ur Specific [place] Urine Protein Urine Glucose (UA) Urine Ketones Urine Blood Urine Nitrite Urine Bilirubin Urine Urobilinogen Ur Leukocyte Esterase Urine WBC (Auto) Urine RBC (Auto) Ur Epithelial Cells Urine Bacteria Hyaline Casts Urine Mucus Urine HCG, Qual Opiates Screen Methadone Screen Barbiturate Screen Phencyclidine Screen Ur Amphetamines Screen MDMA (Ecstasy) Screen Benzodiazepines Screen Cocaine Screen U Marijuana (THC) Screen HIV 1&2 Antibody Screen Negative HIV P24 Antigen Negative lactic acid initially was 8.2. WBC at 17.3. CXR did not show acute pathologies and the CT abdomen did not reveal an infectious etiology. The patient was started on vancomycin and zosyn after these lab results yielded and was ordered 2x 500 cc NS 0.9%. For pain control, 15mg of toradol was ordered. Dispo: patient will be admitted due to elevated WBC and lactic acid in setting of possible infectious etiology vs hemoconcentrated due to dehydration?. 06/16/18 04:40 *DC/Admit/Observation/Transfer Diagnosis at time of Disposition: Sepsis Qualifiers: Sepsis type: sepsis due to unspecified organism Qualified Code(s): A41.9 - Sepsis, unspecified organism - Referrals - Patient Instructions - Post Discharge Activity
[2018-06-15 19:05] LABS: BASO % 0.6 % (0-2.0); HEMATOCRIT 51.2 % (32.4-45.2); HEMOGLOBIN 16.3 GM/dL (10.7-15.3); LYMPH % 13.9 % (8-40); MCH 27.7 pg (25.7-33.7); MCHC 31.8 g/dl (32.0-36.0); MEAN CELL VOLUME 87.3 fl (80-96); MEAN PLT VOLUME 8.8 fl (7.5-11.1); MONO % 11.2 % (3.8-10.2); NEUT % 74.3 % (42.8-82.8); PLATELET COUNT 432 K/MM3 (134-434); RBC 5.86 M/mm3 (3.60-5.2); RDW 13.8 % (11.6-15.6); WHITE BLOOD COUNT 17.3 K/mm3 (4.0-10.0)
[2018-06-15 19:18] LABS: INR 1.13 (0.83-1.09); PROTHROMBIN TIME (PATIENT) 13.3 SEC (9.7-13.0)
[2018-06-15 19:20] LABS: ACTIVATED PTT 25.2 SECONDS (25.2-36.5)
[2018-06-15] MEDS ORDERED: ACETAMINOPHEN 1000 MG/100 ML VIAL (NON FORMULARY) IVPB ONE (19:24)
[2018-06-15] MEDS ORDERED: SODIUM CHLORIDE 500 ML IV STA ×2 (19:25→20:16)
[2018-06-15] MEDS ORDERED: ACETAMINOPHEN INJECTION 100 ML IVPB ONE (19:50)
[2018-06-15 19:58] LABS: URINE APPEARANCE CLOUDY; URINE BILIRUBIN NEGATIVE (<2.0 mg/dL); URINE COLOR AMBER; URINE GLUCOSE (UA) NEGATIVE (NEGATIVE); URINE KETONE TRACE (NEGATIVE); URINE LEUK ESTERASE NEGATIVE (NEGATIVE); URINE NITRITE NEGATIVE (NEGATIVE); URINE PROTEIN 3+ (NEGATIVE)
[2018-06-15 20:03] LABS: ALBUMIN 4.6 g/dl (3.4-5.0); ALK PHOS 91 U/L (45-117); ANION GAP 20 MMOL/L (8-16); BILIRUBIN,TOTAL 0.8 mg/dL (0.2-1); BLOOD UREA NITROGEN 26 mg/dL (7-18); CALCIUM 10.1 mg/dL (8.5-10.1); CHLORIDE 100 mmol/L (98-107); CO2 19 mmol/L (21-32); CREATININE 1.3 mg/dL (0.55-1.3); GLUCOSE,RANDOM 214 mg/dL (74-106); POTASSIUM 3.9 mmol/L (3.5-5.1); SGOT/AST 14 U/L (15-37); SGPT/ALT 26 U/L (13-61); SODIUM 139 mmol/L (136-145)
[2018-06-15 20:03] LABS: HCG,QUALITATIVE URINE Negative
[2018-06-15] MEDS ORDERED: PIPERACILLIN/TAZOB 3.375 GM 3.375 GM in DEXTROSE 5%-WATER - 50 ML IVPB ONE (20:13)
[2018-06-15] MEDS ORDERED: VANCOMYCIN 1,000 MG in DEXTROSE 5%-WATER - 250 ML IVPB ONE (20:13)
[2018-06-15 20:26] LABS: COCAINE, UR NEGATIVE ng/ml (CUTOFF=300); METHADONE, UR NEGATIVE ng/ml (CUTOFF=300); OPIATES, URI NEGATIVE ng/ml (CUTOFF=300); PHENCYCLIDINE,URINE NEGATIVE ng/ml (CUTOFF=25); URINE AMPHETAMINES NEGATIVE ng/ml (CUTOFF=500); URINE BARBITURATES NEGATIVE ng/ml (CUTOFF=200); URINE BENZODIAZEPINES NEGATIVE ng/ml (CUTOFF=200)
[2018-06-15 20:27] LABS: EPI CELLS MODERATE /HPF (FEW); URINE BACTERIA RARE /hpf (NONE SEEN); URINE HYALINE CAST 16 /lpf; URINE MUCUS FEW
[2018-06-15] MEDS ORDERED: VANCOMYCIN 1 GRAM (PRE-DOCKED) 1,000 MG/250 ML BAG IVPB ONE (20:41)
[2018-06-15] MEDS ORDERED: PIPERACILLIN/TAZOB 3.375 GM 3.375 GM/50 ML BAG IVPB ONE (20:42)
[2018-06-15] MEDS ORDERED: ONDANSETRON 4 MG/2 ML VIAL IVPUSH ONE (23:03)
[2018-06-15] MEDS ORDERED: ONDANSETRON 4 MG/2 ML VIAL ONE (23:04)
[2018-06-16] MEDS ORDERED: SODIUM CHLORIDE 500 ML IV STA (00:13)
[2018-06-16] MEDS ORDERED: KETOROLAC TROMETHAMINE 15 MG/ML VIAL IVPUSH ONE (00:27)
[2018-06-16] MEDS ORDERED: KETOROLAC TROMETHAMINE 15 MG/ML VIAL ONE (00:30)
[2018-06-16] MEDS ORDERED: amLODIPine BESYLATE 10 MG TABLET (FP) PO ONE (01:52)
[2018-06-16] MEDS ORDERED: amLODIPine BESYLATE 5 MG TABLET (FP) ONE (02:02)
--- NOTE | 2018-06-16 02:51 | PN ---
Teaching Attending Note Name of Resident: Pilar Estrada ATTENDING PHYSICIAN STATEMENT I saw and evaluated the patient. I reviewed the resident's note and discussed the case with the resident. I agree with the resident's findings and plan as documented. SUBJECTIVE: Seen and examined; please see resident note for additional historical information. She is a 48 y/o CF with a complex PMH involving DM, DVT/PE on Lovenox s/p IVC filter, HTN, HLD, Chronic LE ulcers, psychiatric history, polysubstance abuse, multiple hospitalizations and rehab stays despire her young age. She presents to the ER today with a host of complaints. She presents with nausea, vomitting, diarrhea, weakness, epigastric pain that had syncope-like issue. She has been feeling badly for the past ~30 hours and it has been progressively worse. Nausea slightly preceeded the vomiting by 12-24 hours. Several episodes of bilious vomit; no blood, etc. Accompanied with epigastric discomfort that is worse on palpation. She then noted some diarrhea that is liquidy in nature; she has not had an additional episode since she had come to the hospital. She is somewhat shaky on presentation but she was resting in bed and appeared comfortable when we saw her. Aparently she was shaking enough that someone was concerned she had a seizure, but the shaking stopped when she was directed. She was slightly tachycardic on presentation with elevated BP and low grade temp. CBC appeared hemoconcentrated with WBC, plts, hct all above their prior values. Glucose elevated at 104. Imaging reveals negative CT head and unremarkable CT abdomen, pelvis though the final reading is pending. She has not had anymore syncope. She was aparently very restless earlier but is calm when I saw her. Review of her chart reveals she was recently transferred to [facility] for dental abscess and she appears to have been treated with clindamycin. Given the syncope, tachycardia, leukocytosis (with hemoconcentration) and nausea/vomit/diarrhea will monitor in the hospital on medicine service. 10 sys ROS done and is negative aside from HPI PMH and PSH reviewed FH asked and noncontributory Socially she currently smokes marijuana and is a former opiate user who was on suboxone and completed 2 weeks ago by her own volition (she tells me she stopped taking the films as she was sick of being on them). She has multiple trips to rehab and has been hospitalized several times in the past several years. Medication list reviewed OBJECTIVE: VS, labs, imaging reviewed JIN SANTILLAN, resting in bed, doesn't appear in distress now but she aparently did earlier RRR bordering on tachy to 96 on my exam with no jackson mgr Lung exam limited by habitus but mostly CTAB with sym exp Mild epigastric pain to deep palpation without distention. Obese abdomen prohibits assessment of organomegaly LE with some old-appearing excoriations that are irregularly shaped without any s/s infection. The R-large toe with scabbing on the plantar anteromedial asbect that appears thick and firm; I do not wish to debride bedside to see how deep it goes. No jackson infection around it. Tells me she hasn't had recent imaging of it. CN2-12 wnl, no fnd. No clonus or ocular clonus. Normal muscle tone. Pleasant affect, appropriate behavior Labs display hemoconcentrated CBC with elevated WBC, HCT, Hb with acutally less neutrophilia than last CBC; glucose 214. CO2 20. LA 8.2 to 2.5 after hydration. Lipase, esr, crp, etc. pending Imaging discussed above with prelim reads; pending the final report CT head, CT abdomen/pelvis ASSESSMENT AND PLAN: 48 y/o CF presents with syncope, anion gap positive lactic metabolic acidosis with nausea, vomitting, and diarrhea with positive risk factors for Cdif. 1) Anion Gap Positive Lactic Acidosis -Evidenced by labs; likely 2/2 increased O2 demand due to GI illness. Given her history of taking an additional pill of her psychiatric medication yesterday she had some risks for Serotonin Syndrome but doesn't have any of the diagnostic criteria (occular clonus, clonus, hyperreflexia, etc.) -Lactate resolved after hydration; HR now high normal low tachy, repeating BMP to ensure CO2 increased appropriately post bolus -Discussing potential components separately 2) Leukocytosis with apparent hemoconcentration -Appears dry on her labs which agrees with clinical assessment; will hydrate then recheck. This could, of course, represent infection. In terms of sources , no meningeal signs, negative UA, no billing manager source aparent. She does have diarrhea and an old toe wound that has been recently unchanged that may require further evaluation -Monitor blood cultures, work up potential causes -ESR, CRP to eval inflammatory process 3) Syncope/Presyncope -Difficult history; broad ddx. Medications, cargiogenic, neurogenic, psychogenic, etc. -Monitor on telemetry to r/o any arrhythmias. As documented CHF but normal echo 2016 recheck echo which can also show any valve abnormalities -CT head negative; monitor for further issues. Can do q8h neuro checks. -Resume psych meds tomorrow PM -Obtain orthostatic VS in AM (just was hydrated) 4) Diarrhea/Nausea/Vomitting -Abx within 30 days increases risk for CDif. No collitis seen on the CT abdomen. Would assume possibly from suboxone WD but she has been off the med for 2 weeks. I also ordered lipase which is currently uncollected. Nonrevealing CT, though. -Checking C Dif, lactoferrin. Followup and further management per the results -PRN management; advance diet as tolerated. IV hydration. 5) DVT/history of PE with IVC filter and on lovenox -No acute issues; verify and continue home meds. Low probability of PE. No s/ s obstructive LE ischemia -Has had negative AI workup in the past -Diagnosed with extensive bilateral DVTs in 2016; found to have a L-popliteal DVT 11/2017. 6) Chronic LE Ulcer -Known from prior admits; no recent changes. No recent imaging. Would be at risk for deep infection but ESR completely unremarkable so will check plain film but less likely osteo. 7) NIDDM -Uncontrolled with sugars trending in 200s -Hold home metformin; place on SSI 8) HTN -Hold home meds; resume when clinically ascertained to be not septic. As her pressure is slightly high >160 (want <160 inpatient per guidelines as no pressing comorbid conditions) can consider this in AM 9) Psychiatric History -Less likely serotonin syndrome; once VS remaining frankly stable which they are now appropaching can likely give her home meds and observe. Check TSH. 10) HLD -Nonacute; followup outpatient 11) Polysubstance abuse -Manager Private; offer rehab as still +Utox. Off suboxone x2 weeks so will hold. 12) Morbid Obesity -Manager Private when clinically appropriate; consider referral for bariatric surgery assessment. FENA -LR@maintenance -BMP, Mg check. Replete PRN -Regular diet -As she had 2 falls while in the ED; place on bedrest with assist and have PT evaluation Full Code Dispo: Once VS stabilized, assuming no compelling underlying issue, will anticipate <72 hours in the hospital
--- NOTE | 2018-06-16 03:07 | HP ---
CHIEF COMPLAINT: Nausea, vomiting, diarrhea and abdominal pain. PCP: HISTORY OF PRESENT ILLNESS: A 48 y.o. F w/ PMHx. of Polysubstance abuse( Marijuana and snorting Heroin, denies injecting), NIDDM, HTN, diabetes, DVT(s/p IVC filter in 2014) and ?CHF?, states that she has been having nausea and non- bloody bilious vomiting for the last 3 days with non-bloody watery diarrhea with abdominal pain. Pt. states she has not been able to keep much down over the last few days including medications. Pt. denies any sick contacts and denies eating any foods out of the ordinary. Pt endorses oral temperatures to 102.7 at home for which she took Tylenol, and heart burn. Pt. also endorses 10/ 10 abdominal pain in the LLQ. Of note Pt. has been decreasing her suboxone dose by herself over the last few weeks and currently has not been taking suboxone for 2 weeks. Pt. endorses dizziness and stated that she fell 3 times at home because of lower extremity weakness, witnessed by her son and mother. On the third fall she was unable to be helped up and EMS was called. In the ED Pt. fell as she was trying to climb out of the bed to go to the bathroom. Incident report filed by ED resident. Pt. ER course was notable for: (1)CBC, BMP, Zofran, IVF (2) UA, LA, BCx, UTox, Vancomycin, Zosyn (3)CT Abdomen, CXR, LLE X-rays Recent Travel: Denies PAST MEDICAL HISTORY: As noted in HPI PAST SURGICAL HISTORY: IVC Filter (2014), CCY (2004) Social History: Smokin pack per week for 20+ years Alcohol: Denies Drugs: Last Heroin use was 1.5 years ago, Last Marijuana use was 4 days ago Family History: Mom has ovarian CA(74), Father has NIDDM Allergies No Known Allergies Allergy (Verified 06/15/18 17:43) HOME MEDICATIONS: Home Medications Medication Instructions Recorded Pregabalin [Lyrica] 100 mg PO TID 10/02/16 Bacitracin - [Bacitracin Topical 1 applic TP DAILY tube 08/24/17 Ointment -] Hydrocortisone 1% Cream [Hytone 1% 1 applic TP BID PRN tube 08/24/17 Cream -] Vitamin A & D Top Oint - 1 applic TP Q6HPO tube 08/24/17 Enoxaparin [Lovenox -] 120 mg SQ BID #60 disp.syrin 11/28/17 Acetaminophen [Tylenol] 325 mg PO TID PRN 12/04/17 metFORMIN HCL [Metformin HCl] 500 mg PO BID 12/04/17 Lisinopril 20 mg PO DAILY 01/23/18 Zolpidem Tartrate [Ambien] 10 mg PO HS 01/23/18 traZODone HCL [Desyrel -] 100 mg PO HS 02/13/18 Escitalopram Oxalate [Lexapro -] 5 mg PO DAILY #14 tablet 05/17/18 Quetiapine Fumarate [Seroquel -] 50 mg PO HS #30 tablet 05/17/18 Buprenorphine/Naloxone [Suboxone 1 each SL BID #14 packet MDD 2 05/21/18 8Mg/2Mg Sl Film -] REVIEW OF SYSTEMS CONSTITUTIONAL: Present: generalized weakness, malaise, loss of appetite, fever Absent: chills, diaphoresis, weight change HEENT: Absent: rhinorrhea, nasal congestion, throat pain, throat swelling, difficulty swallowing, mouth swelling, ear pain, eye pain, visual changes CARDIOVASCULAR: Present: syncope, peripheral edema Absent: chest pain, palpitations, irregular heart rate, lightheadedness, RESPIRATORY: Absent: cough, shortness of breath, dyspnea with exertion, orthopnea, wheezing, stridor, hemoptysis GASTROINTESTINAL: Present: abdominal pain, nausea, vomiting, diarrhea Absent: abdominal distension, constipation, melena, hematochezia GENITOURINARY: Absent: dysuria, frequency, urgency, hesitancy, hematuria, flank pain, genital pain MUSCULOSKELETAL: Present: myalgia, arthralgia Absent: joint swelling, back pain , neck pain SKIN: Absent: rash, itching, pallor HEMATOLOGIC/IMMUNOLOGIC: Present: chronic infections Absent: easy bleeding, easy bruising, lymphadenopathy ENDOCRINE: Absent: unexplained weight gain, unexplained weight loss, heat intolerance, cold intolerance NEUROLOGIC: Present: dizziness, unsteady gait Absent: headache, focal weakness or paresthesias, seizure, mental status changes, bladder or bowel incontinence PSYCHIATRIC: Present: anxiety, depression Absent: suicidal or homicidal ideation , hallucinations. PHYSICAL EXAMINATION Vital Signs - 24 hr 12/08/0206/15/18 06/15/18 17:44 17:59 19:16 Temperature 99.3 F 99.0 F Pulse Rate 123 H Pulse Rate [ 104 H 128 H Left Apical] Respiratory 20 22 H 20 Rate Blood Pressure 191/118 H Blood Pressure 173/104 H 177/114 H [Left Arm] O2 Sat by Pulse 97 95 92 L Oximetry (%) 06/15/18 06/15/18 21:45 23:45 Temperature 98 F 98.1 F Pulse Rate Pulse Rate [ 112 H 110 H Left Apical] Respiratory 20 18 Rate Blood Pressure Blood Pressure 179/119 H 160/111 H [Left Arm] O2 Sat by Pulse 99 99 Oximetry (%) GENERAL: Awake, alert, and fully oriented, in no acute distress. HEAD: Normal with no signs of trauma. EYES: Pupils equal, round and reactive to light, sclera anicteric, conjunctiva clear. No lid lag. EARS, NOSE, THROAT: Ears normal, nares patent, oropharynx clear without exudates. Moist mucous membranes. NECK: Normal range of motion, supple without lymphadenopathy, JVD + on right, or masses. LUNGS: Breath sounds equal, clear to auscultation bilaterally. No wheezes, and no crackles. No accessory muscle use. HEART: Regular rate and rhythm, normal S1 and S2 without murmur ABDOMEN: Soft, LUQ, suprapubic and LLQ tenderness, erythema under the pannus on the right, not distended, normoactive bowel sounds, guarding, no rebound, no masses. MUSCULOSKELETAL: Normal range of motion at all joints. No bony deformities or tenderness. No CVA tenderness. UPPER EXTREMITIES: 2+ right radial pulse, warm, well-perfused. No cyanosis. No clubbing. No peripheral edema. LOWER EXTREMITIES: 2+ dorsal pedal pulses, warm, well-perfused. calf tenderness present, trace edema. Left toe plantar surface ulcer that was non-tender to palpation with pus expression, no sensation of the right hallux, sensation intact in other digits and in lower extremities. NEUROLOGICAL: Normal speech. Gait no assessed. PSYCHIATRIC: Cooperative. Good eye contact. Appropriate mood and affect. SKIN: Warm, dry, normal turgor, no rashes or lesions noted, normal capillary refill. Laboratory Results - last 24 hr 06/15/18 06/15/18 06/15/18 18:30 18:44 18:44 WBC 17.3 H RBC 5.86 H Hgb 16.3 H Hct 51.2 H MCV 87.3 MCH 27.7 MCHC 31.8 L RDW 13.8 Plt Count 432 D MPV 8.8 Absolute Neuts (auto) 12.9 H Neutrophils % 74.3 Lymphocytes % 13.9 D Monocytes % 11.2 H D Eosinophils % 0.0 D Basophils % 0.6 Nucleated RBC % 0 PT with INR 13.30 H INR 1.13 H PTT (Actin FS) 25.2 Sodium Potassium Chloride Carbon Dioxide Anion Gap BUN Creatinine Creat Clearance w eGFR Random Glucose Lactic Acid 8.2 H* Calcium Total Bilirubin AST ALT Alkaline Phosphatase Creatine Kinase Troponin I Total Protein Albumin Beta HCG, Quant Urine Color Urine Appearance Urine pH Ur Specific [place] Urine Protein Urine Glucose (UA) Urine Ketones Urine Blood Urine Nitrite Urine Bilirubin Urine Urobilinogen Ur Leukocyte Esterase Urine WBC (Auto) Urine RBC (Auto) Ur Epithelial Cells Urine Bacteria Hyaline Casts Urine Mucus Urine HCG, Qual Opiates Screen Methadone Screen Barbiturate Screen Phencyclidine Screen Ur Amphetamines Screen MDMA (Ecstasy) Screen Benzodiazepines Screen Cocaine Screen U Marijuana (THC) Screen 06/15/18 06/15/18 06/15/18 18:44 19:23 19:37 WBC RBC Hgb Hct MCV MCH MCHC RDW Plt Count MPV Absolute Neuts (auto) Neutrophils % Lymphocytes % Monocytes % Eosinophils % Basophils % Nucleated RBC % PT with INR INR PTT (Actin FS) Sodium Cancelled 139 Potassium Cancelled 3.9 Chloride Cancelled 100 Carbon Dioxide Cancelled 19 L Anion Gap Cancelled 20 H BUN Cancelled 26 H Creatinine Cancelled 1.3 Creat Clearance w eGFR Cancelled 44.10 Random Glucose Cancelled 214 H Lactic Acid Calcium Cancelled 10.1 Total Bilirubin Cancelled 0.8 AST Cancelled 14 L ALT Cancelled 26 Alkaline Phosphatase Cancelled 91 Creatine Kinase Cancelled 63 Troponin I Cancelled < 0.02 Total Protein Cancelled 9.0 H Albumin Cancelled 4.6 Beta HCG, Quant Cancelled < 1.0 Urine Color Ledy Urine Appearance Cloudy Urine pH 5.0 Ur Specific [place] 1.031 Urine Protein 3+ H Urine Glucose (UA) Negative Urine Ketones Trace H Urine Blood Negative Urine Nitrite Negative Urine Bilirubin Negative Urine Urobilinogen 2.0 H Ur Leukocyte Esterase Negative Urine WBC (Auto) 4 Urine RBC (Auto) 2 Ur Epithelial Cells Moderate Urine Bacteria Rare Hyaline Casts 16 Urine Mucus Few Urine HCG, Qual Negative Opiates Screen Methadone Screen Barbiturate Screen Phencyclidine Screen Ur Amphetamines Screen MDMA (Ecstasy) Screen Benzodiazepines Screen Cocaine Screen U Marijuana (THC) Screen 06/15/18 06/15/18 19:37 22:51 WBC RBC Hgb Hct MCV MCH MCHC RDW Plt Count MPV Absolute Neuts (auto) Neutrophils % Lymphocytes % Monocytes % Eosinophils % Basophils % Nucleated RBC % PT with INR INR PTT (Actin FS) Sodium Potassium Chloride Carbon Dioxide Anion Gap BUN Creatinine Creat Clearance w eGFR Random Glucose Lactic Acid 2.5 H* Calcium Total Bilirubin AST ALT Alkaline Phosphatase Creatine Kinase Troponin I Total Protein Albumin Beta HCG, Quant Urine Color Urine Appearance Urine pH Ur Specific [place] Urine Protein Urine Glucose (UA) Urine Ketones Urine Blood Urine Nitrite Urine Bilirubin Urine Urobilinogen Ur Leukocyte Esterase Urine WBC (Auto) Urine RBC (Auto) Ur Epithelial Cells Urine Bacteria Hyaline Casts Urine Mucus Urine HCG, Qual Opiates Screen Negative Methadone Screen Negative Barbiturate Screen Negative Phencyclidine Screen Negative Ur Amphetamines Screen Negative MDMA (Ecstasy) Screen Negative Benzodiazepines Screen Negative Cocaine Screen Negative U Marijuana (THC) Screen Positive A* ASSESSMENT/PLAN: A 48 y.o. F w/ PMHx. of Polysubstance abuse(Marijuana and snorting Heroin, denies injecting), NIDDM, HTN, diabetes, DVT(s/p IVC filter in 2015) and ?CHF?, states that she has been having nausea and non-bloody bilious vomiting for the last 3 days with non-bloody watery diarrhea with abdominal pain. #Lactic acidosis 2/2 Nausea/Vomiting/Diarrhea -likely 2/2 to gastroenteritis vs. suboxone withdrawal -Pt. has elevated WBCs, febrile, and had admission LA of 8.7--> 2.5-->1.7 -started LR @ 120ml/hr -c/w Zofran 4mg; EKG showed Sinus Tachycardia w/ QTc: 474--> would repeat EKG daily while continuing zofran. If QTc continues to increase would switch to a non-QTc prolonging agent to control nausea and vomiting -f/u BCx. -We considered Serotonin Syndrome given medication history however Pt. had no clonus in extremities or eyes. -Flu - -HIV - -f/u Lactoferrin which will r/o gastroenteritis #R/O OM -ESR: wnl; CRP: 0.5 (mildly elevated) which rules out OM -MRI not indicated at this time #Syncope likely 2/2 Dehydration 2/2 N/V/D -c/w IVF -witnesssed fall: no seizures and no hypoglycemia -f/u Echo -will hold serotoninergic medications-> resume medications in the evening -frequent neuro checks #DM2 -ISS -BGM -f/u A1c #R/O PE -Pt. on therapeutic Lovenox dose -Pt. has IVC Filter #Morbid Obesity -encourage lifestyle changes -would refer to Dr. East for Bariatric surgery on discharge and as outpatient. #FEN LR @ 120 monitor electrolytes and replete as needed Na/ Diabetic Diet #Dvt. Ppx. c/w Lovenox 120mg SQ BID Visit type - Emergency Visit Emergency Visit: Yes ED Registration Date: 06/16/18 Care time: The patient presented to the Emergency Department on the above date and was hospitalized for further evaluation of their emergent condition. - New Patient This patient is new to me today: Yes Date on this admission: 06/16/18 - Critical Care Critical Care patient: No
[2018-06-16 03:10] LABS: ANION GAP 14 MMOL/L (8-16); BLOOD UREA NITROGEN 30 mg/dL (7-18); CALCIUM 9.9 mg/dL (8.5-10.1); CHLORIDE 102 mmol/L (98-107); CO2 22 mmol/L (21-32); CREATININE 1.2 mg/dL (0.55-1.3); GLUCOSE,RANDOM 233 mg/dL (74-106); POTASSIUM 3.6 mmol/L (3.5-5.1); SODIUM 138 mmol/L (136-145)
[2018-06-16] MEDS: LACTATED RINGERS SOLUTION 1,000 ML/1,000 ML INFUS.BAG IV SCH ×2 (04:34→17:08)
[2018-06-16] MEDS ORDERED: PREGABALIN 100 MG CAPSULE ONE (06:15)
[2018-06-16] MEDS ORDERED: INSULIN (NOVOLOG) ASPART 100 UNITS/ML 10ML VIAL ONE ×3 (06:15→17:40)
[2018-06-16] MEDS: PREGABALIN 100 MG CAPSULE PO SCH ×3 (06:23→21:52)
[2018-06-16] MEDS: VITAMINS A AND D TOPICAL OINTMENT 60 GM TUBE TP SCH ×3 (06:23→17:11)
[2018-06-16] MEDS: INSULIN SLIDING SCALE (NOVOLOG) 1 VIAL SQ SCH ×4 (06:26→17:42)
[2018-06-16 06:40] LABS: BASO % 0.5 % (0-2.0); HEMATOCRIT 45.6 % (32.4-45.2); HEMOGLOBIN 14.7 GM/dL (10.7-15.3); LYMPH % 14.6 % (8-40); MCH 28.1 pg (25.7-33.7); MCHC 32.3 g/dl (32.0-36.0); MEAN CELL VOLUME 87.1 fl (80-96); MEAN PLT VOLUME 8.9 fl (7.5-11.1); NEUT % 75.9 % (42.8-82.8); PLATELET COUNT 350 K/MM3 (134-434); RBC 5.23 M/mm3 (3.60-5.2); RDW 13.6 % (11.6-15.6); WHITE BLOOD COUNT 13.4 K/mm3 (4.0-10.0)
[2018-06-16 07:02] LABS: MAGNESIUM 2.2 mg/dL (1.8-2.4); PHOSPHOROUS 4.2 mg/dL (2.5-4.9)
[2018-06-16] MEDS ORDERED: LISINOPRIL 20 MG TABLET (FP) ONE (07:53)
[2018-06-16] MEDS ORDERED: ACETAMINOPHEN INJECTION 100 ML IVPB ONE (07:53)
[2018-06-16] MEDS ORDERED: LISINOPRIL 20 MG TABLET (FP) PO ONE ×2 (08:08→08:15)
[2018-06-16] MEDS ORDERED: LABETALOL HCL 200 MG TABLET (FP) PO ONE (08:15)
[2018-06-16] MEDS ORDERED: LABETALOL HCL 100 MG TABLET (FP) ONE (08:46)
[2018-06-16 08:59] LABS: LIPASE 267 U/L (73-393); N-TERMINAL BNP 1695.8 pg/ml (5-125)
[2018-06-16] MEDS ORDERED: SODIUM CHLORIDE 1,000 ML IV SCH (09:15)
--- NOTE | 2018-06-16 09:25 | PN ---
Progress Note (short form) - Note Progress Note: Subjective: she feels a tiny bit better. has no CP , nO SOB, feels hot, reports N/V/D fro 2 days , she reports decreased po intake. had runny nose. has Abd pain. has cough with green sputum production x 2 days. used Marijuana 4 days ago. no increased depression and no intention to hurt self. reports compliance to Lovenox and all her meds Objective: Vital Signs: Last Vital Signs Temp Pulse Resp BP Pulse Ox 99.2 F 110 H 22 H 176/111 H 94 L 06/16/18 07:45 06/16/18 07:45 06/16/18 07:45 06/16/18 07:45 06/16/18 07:45 Labs: reviewed Physical Exam: NAD , awake, alert , flushed face, appropriate and cooperative HEENT: poor dentition , MMM, no JVD CV: RRR, no MRG Lungs: good air entry, no crackles or wheezes Abd: soft, ND, obese, TTP in all quadrants . no rebound tenderness or guarding Ext : no slight pitting edema on L leg, L leg circumference > R ( old and chronic for pt ) . no tenderness, old scabs and abrasions on shins. hyperpigmented areas on shins. callus on L big toe, no drainage or erythema . Neuro: EOMI, round equal pupils, reactive to light , no facial droop, tongue and uvula at mid line . strength 5/5 in upper and lower extremities proximally and distally. sensation to light touch NL. reflexes : 2+ biceps. unable to get knee jerks. Imaging: Cxray : no acute process L knee and TIb/Fib no fx Ct abd : not read, but images reviewed. prelim report with no acute abd process. has L adrenal nodule 2.5 cm . Assessment/Plan: 48 y/o lady with h/o HTN, DM , depression /anxiety, PEs/DVTs, s/p IVCF, and on AC , chronci lower ext ulcers, and frequent hospitalizations who presented with N/V/D and a fall . She was found to have lactic acidosis , ANASTASIA , and HTN emergency. 1- HTN emergency: with renal failure. could be triggered by acute illness, non compliance, or secondary etiology. - received norvasc overnight. BP still elevated. - give her home dose lisniopril, and add labetalol 200 BID - check aldosterone to renin ratio - has 2.5 cm nodule on L adrenal gland. doubt pheochromcytoma, can't order metanephrines as inpatient. w/u as out pt 2- N/V/D: could be viral gastroenteritis , vs cyclic vomiting syndrome ( marijuana use) . was on ABx recently ,need to r/o C diff - follow c diff - order stool cx and fecal WBC - CT prelim with no acute process - check flu swab. - start PPI and carafate. - low dose IVF for now 3- Leukocytosis : doubt infectious process. dropped spontaneously. no fever . clear cxray. lung bases on CT are clear. green sputum production could be due to bronchitis , no crackles on exam. no colitis on CT prelim read. clean urine - will repeat cxray in am - hold off Abx 4- High anion gap metabolic acidosis due to lActic acidosis: likely due to volume depletion form N/V/D. on metformin. ? type B - cont IVF - hold metformin 5- ANASTASIA: due to volume depletion or severe HTN. improved - cont IVF , monitor on ACEI 6- DM: diabetic diet and SSI 7- Depresion /anxiety: cont all psych meds to avoid withdrawal 8- H/o PE/DVT: cont lovenox HLOC Visit type - Emergency Visit Emergency Visit: Yes ED Registration Date: 06/16/18 Care time: The patient presented to the Emergency Department on the above date and was hospitalized for further evaluation of their emergent condition. - New Patient This patient is new to me today: Yes Date on this admission: 06/16/18 - Critical Care Critical Care patient: No
[2018-06-16] MEDS ORDERED: SUCRALFATE 1 GM TABLET (FP) ONE (09:57)
[2018-06-16] MEDS ORDERED: ESCITALOPRAM OXALATE 10 MG TABLET (FP) ONE ×2 (09:57→10:12)
[2018-06-16] MEDS ORDERED: PANTOPRAZOLE SODIUM 40 MG VIAL ONE (09:57)
[2018-06-16] MEDS ORDERED: PROCHLORPERAZINE INJECTION 10 MG/2 ML VIAL ONE (09:58)
[2018-06-16] MEDS ORDERED: LISINOPRIL 20 MG TABLET (FP) PO SCH (10:00)
[2018-06-16] MEDS ORDERED: BUPRENORPHINE/NALOXONE 8 MG/2 MG FILM PACKET SL SCH (10:00)
[2018-06-16] MEDS: ENOXAPARIN NA (PORCINE) 120 MG/0.8 ML DISP.SYRIN SQ SCH ×2 (10:00→21:52)
[2018-06-16] MEDS: SUCRALFATE 1 GM/10 ML UNIT DOSE CUPS PO SCH ×2 (10:00→21:51)
[2018-06-16] MEDS: PROCHLORPERAZINE INJECTION 10 MG/2 ML VIAL IVPB PRN ×2 (10:00→14:30)
[2018-06-16] MEDS: PANTOPRAZOLE SODIUM 40 MG VIAL IVPUSH SCH (10:00)
[2018-06-16] MEDS: ESCITALOPRAM OXALATE 10 MG TABLET (FP) PO SCH (10:00)
[2018-06-16] MEDS: NYSTATIN POWDER 100,000 UNITS/GM - 15 GM TOPICAL POWDER TP SCH (14:13)
[2018-06-16 16:04] VITALS: BMI 46.4
[2018-06-16] MEDS ORDERED: traZODone HCL 50 MG TABLET (FP) ONE (21:34)
[2018-06-16] MEDS ORDERED: QUEtiapine FUMARATE 25 MG TABLET (FP) ONE (21:34)
[2018-06-16] MEDS: traZODone HCL 100 MG TABLET (FP) PO SCH (21:51)
[2018-06-16] MEDS: QUEtiapine FUMARATE 50 MG TABLET PO SCH (21:52)
[2018-06-16] MEDS: LABETALOL HCL 200 MG TABLET (FP) PO SCH (21:52)
[2018-06-16] MEDS: MORPHINE SULFATE 2 MG/ML VIAL IVPUSH PRN (22:00)
[2018-06-17] MEDS: VITAMINS A AND D TOPICAL OINTMENT 60 GM TUBE TP SCH ×5 (00:30→23:38)
[2018-06-17] MEDS: PREGABALIN 100 MG CAPSULE PO SCH ×3 (06:01→21:07)
[2018-06-17] MEDS: INSULIN SLIDING SCALE (NOVOLOG) 1 VIAL SQ SCH ×3 (06:02→17:05)
[2018-06-17] MEDS: MORPHINE SULFATE 2 MG/ML VIAL IVPUSH PRN ×3 (06:09→18:00)
[2018-06-17 07:47] LABS: BASO % 0.8 % (0-2.0); EOS % 1.2 % (0-4.5); HEMATOCRIT 43.9 % (32.4-45.2); HEMOGLOBIN 13.9 GM/dL (10.7-15.3); LYMPH % 33.6 % (8-40); MCH 28.1 pg (25.7-33.7); MCHC 31.7 g/dl (32.0-36.0); MEAN CELL VOLUME 88.6 fl (80-96); MONO % 8.8 % (3.8-10.2); NEUT % 55.6 % (42.8-82.8); PLATELET COUNT 271 K/MM3 (134-434); RBC 4.95 M/mm3 (3.60-5.2); RDW 13.9 % (11.6-15.6); WHITE BLOOD COUNT 9.3 K/mm3 (4.0-10.0)
[2018-06-17 08:11] LABS: ANION GAP 12 MMOL/L (8-16); BLOOD UREA NITROGEN 18 mg/dL (7-18); CALCIUM 9.2 mg/dL (8.5-10.1); CHLORIDE 106 mmol/L (98-107); CO2 23 mmol/L (21-32); CREATININE 0.8 mg/dL (0.55-1.3); GLUCOSE,RANDOM 156 mg/dL (74-106); MAGNESIUM 2.1 mg/dL (1.8-2.4); PHOSPHOROUS 3.9 mg/dL (2.5-4.9); POTASSIUM 3.5 mmol/L (3.5-5.1); SODIUM 141 mmol/L (136-145)
[2018-06-17] MEDS ORDERED: PT OWN MED DRAWER 7, Y5N ONE ×3 (09:11→21:04)
--- NOTE | 2018-06-17 09:25 | PN ---
Physical Exam: SUBJECTIVE: Patient is a 48 y/o female with a history of polysubstance abuse ( marijuana and heroin), DM, HTN, DVT ( s/p IVC filter in 2015), and CHF who is admitted for nausea, vomiting, and diarrhea. Patient reports she did not vomit over night but did have multiple episodes of diarrhea. Patient had no other acute events. OBJECTIVE: Vital Signs Temperature 98.4 F 06/17/18 02:00 Pulse Rate 112 H 06/17/18 06:00 Respiratory Rate 18 06/17/18 02:00 Blood Pressure 158/86 06/17/18 06:00 O2 Sat by Pulse Oximetry (%) 94 L 06/16/18 21:00 GENERAL: The patient is awake, alert, and fully oriented, obese HEAD: Normal with no signs of trauma, hirtsuism EYES: PERRL, extraocular movements intact, sclera anicteric, conjunctiva clear. No ptosis. . LUNGS: Breath sounds equal, clear to auscultation bilaterally, no wheezes, no crackles, no accessory muscle use. HEART: Regular rate and rhythm, S1, S2 without murmur, rub or gallop. ABDOMEN: soft, diffusely tender, active bowel sounds EXTREMITIES: 2+ pulses, warm, well-perfused, no edema. PSYCH: Normal mood, normal affect. SKIN: Warm, dry, normal turgor, no rashes or lesions noted CBC, BMP 06/17/18 06:15 06/17/18 06:15 Active Medications Acetaminophen (Tylenol -) 325 mg PO TID PRN PRN Reason: PAIN Enoxaparin Sodium (Lovenox -) 120 mg SQ BID [facility] Last Admin: 06/16/18 21:52 Dose: 120 mg Escitalopram Oxalate (Lexapro -) 5 mg PO DAILY [facility] Last Admin: 06/16/18 10:00 Dose: 5 mg Lactated Ringer's (Lactated Ringers Solution) 1,000 ml in 1,000 mls @ 120 mls/ hr IV ASDIR [facility] Last Admin: 06/16/18 17:08 Dose: 120 mls/hr Insulin Aspart (Novolog Vial Sliding Scale -) 1 vial SQ TIDAC [facility]; Protocol Last Admin: 06/17/18 06:02 Dose: 2 unit Labetalol HCl (Normodyne -) 200 mg PO BID [facility] Last Admin: 06/16/18 21:52 Dose: 200 mg Lisinopril (Prinivil) 20 mg PO DAILY [facility] Morphine Sulfate (Morphine Sulfate) 1 mg IVPUSH Q6H PRN PRN Reason: PAIN LEVEL 7 - 10 Last Admin: 06/17/18 06:09 Dose: 1 mg Nystatin (Nystop Powder -) 1 applic TP DAILY [facility] Last Admin: 06/16/18 14:13 Dose: 1 applic Pantoprazole Sodium (Protonix Iv) 40 mg IVPUSH DAILY [facility] Last Admin: 06/16/18 10:00 Dose: 40 mg Pregabalin (Lyrica -) 100 mg PO TID [facility] Last Admin: 06/17/18 06:01 Dose: 100 mg Prochlorperazine Edisylate (Compazine Injection -) 10 mg IVPB Q4H PRN PRN Reason: NAUSEA AND/OR VOMITING Last Admin: 06/16/18 14:30 Dose: 10 mg Quetiapine Fumarate (Seroquel -) 50 mg PO HS [facility] Last Admin: 06/16/18 21:52 Dose: 50 mg Sucralfate (Carafate Oral Suspension -) 2 gm PO BID [facility] Last Admin: 06/16/18 21:51 Dose: 2 gm Trazodone HCl (Desyrel -) 100 mg PO HS [facility] Last Admin: 06/16/18 21:51 Dose: 100 mg Vitamin A/Vitamin D (Vitamin A & D Top Oint -) 1 applic TP Q6HPO [facility] Last Admin: 06/17/18 07:00 Dose: Not Given ASSESSMENT/PLAN: Patient is a 48 y/o female with a history of polysubstance abuse ( marijuana and heroin), DM, HTN, DVT ( s/p IVC filter in 2015), and CHF who is admitted for nausea, vomiting, and diarrhea. #nausea, vomiting, and diarrhea 2/2 to hyperemesis cannibus vs withdrawl vs viral - full liquid diabetic diet - protonix 40 mg daily - compazine 10 mg q4 prn, QTC 474 - sucralfate 2gm po BID - bc no growth so far, f/u Ucx, stool cx, and cdiff - afebrile, tachycardic - abd/pelvis CT: diffuse heaptic steatosis, mild hepatomegaly status post cholecystectomy - spoke to Dr. Stroe; patient could be withdrawing from Subaxone even being off it for two weeks- should treat symptomatically, check patients istop hx, reached out to Rosa Garcia for pt substance use history #hx DVT 2014 - Lovenox 120 BID #DM - Pregabalin 100 mg po TID - SS - BGM TID AC - metformin held #HTN - lisinopril 40 mg daily #psych hx - quetiapine 50 mg po hs - Escitalopram 5 mg po daily #insomnia - Trazodone 100 mg hs #CHF - echo in 2016, echnically difficult - patient unaware of a history of CHF - f/u Echo FEN Dispo: Visit type - Emergency Visit Emergency Visit: No - New Patient This patient is new to me today: Yes Date on this admission: 06/17/18 - Critical Care Critical Care patient: No
[2018-06-17] MEDS: SUCRALFATE 1 GM/10 ML UNIT DOSE CUPS PO SCH ×3 (09:57→21:06)
[2018-06-17] MEDS: PANTOPRAZOLE SODIUM 40 MG VIAL IVPUSH SCH (09:57)
[2018-06-17] MEDS: ENOXAPARIN NA (PORCINE) 120 MG/0.8 ML DISP.SYRIN SQ SCH ×2 (09:57→21:07)
[2018-06-17] MEDS: ESCITALOPRAM OXALATE 10 MG TABLET (FP) PO SCH (09:57)
[2018-06-17] MEDS: LABETALOL HCL 200 MG TABLET (FP) PO SCH ×2 (09:58→21:08)
[2018-06-17] MEDS ORDERED: LISINOPRIL 20 MG TABLET (FP) PO SCH (10:00)
[2018-06-17] MEDS: NYSTATIN POWDER 100,000 UNITS/GM - 15 GM TOPICAL POWDER TP SCH (10:49)
--- NOTE | 2018-06-17 11:19 | EKG ---
Test Reason : Blood Pressure : / mmHG Vent. Rate : 114 BPM Atrial Rate : 114 BPM P-R Int : 146 ms QRS Dur : 094 ms QT Int : 354 ms P-R-T Axes : 057 074 019 degrees QTc Int : 487 ms SINUS TACHYCARDIA OTHERWISE NORMAL ECG WHEN COMPARED WITH ECG OF 15-JUN-2018 18:06, NO SIGNIFICANT CHANGE WAS FOUND Confirmed by BRETT DANGELO MD ([id number]) on 06/17/2018 11:19:27 AM Referred By: Confirmed By:BRETT DANGELO MD
--- NOTE | 2018-06-17 11:24 | EKG ---
Test Reason : Blood Pressure : / mmHG Vent. Rate : 114 BPM Atrial Rate : 114 BPM P-R Int : 144 ms QRS Dur : 092 ms QT Int : 344 ms P-R-T Axes : 020 088 028 degrees QTc Int : 474 ms SINUS TACHYCARDIA OTHERWISE NORMAL ECG WHEN COMPARED WITH ECG OF 25-MAY-2018 23:22, NO SIGNIFICANT CHANGE WAS FOUND Confirmed by BRETT DANGELO MD ([id number]) on 06/17/2018 11:23:45 AM Referred By: Confirmed By:BRETT DANGELO MD
--- NOTE | 2018-06-17 12:48 | ECHO ---
Name: MARYCRUZ JOAQUIN Exam:Adult Echocardiogram Study Date: 06/17/2018 11:47 AM Age: 48 yrs Reason For Study: H/O CHF Height: 66 in Weight: 300 lb BSA: 2.4 m2 MMode/2D Measurements & Calculations IVSd: 1.0 cm Ao root diam: 3.0 cm LVIDd: 4.5 cm LVIDs: 3.1 cm LVPWd: 0.91 cm EDV(Teich): 91.2 ml ESV(Teich): 39.0 ml Doppler Measurements & Calculations MV E max lizandro: 38.5 cm/sec Med Peak E' Lizandro: 7.0 cm/sec MV A max lizandro: 56.3 cm/sec Med E/e': 5.5 MV E/A: 0.68 Lat Peak E' Lizandro: 5.0 cm/sec Lat E/e': 7.7 Procedure A complete two-dimensional transthoracic echocardiogram was performed (2D, M-mode, Doppler and color flow Doppler). Technically limited study. Left Ventricle The left ventricle is normal in size. Left ventricular systolic function is normal. Ejection Fraction = 55- 60%. No regional wall motion abnormalities noted. Right Ventricle The right ventricle is not well visualized. Atria The left atrial size is normal. Right atrium not well visualized. Mitral Valve The mitral valve is normal in structure and function. There is mild mitral regurgitation. Tricuspid Valve The tricuspid valve is not well visualized. Aortic Valve The aortic valve is normal in structure and function. No aortic regurgitation is present. Pulmonic Valve The pulmonic valve is not well visualized. Great Vessels The aortic root is normal size. Pericardium/Pleura There is no pericardial effusion. Interpretation Summary Technically limited study The left ventricle is normal in size. Left ventricular systolic function is normal. No regional wall motion abnormalities noted. Ejection Fraction = 55-60%. The right ventricle is not well visualized. The left atrial size is normal. Right atrium not well visualized. There is mild mitral regurgitation. There is no pericardial effusion. Previous study is not available for comparison Ronnie Coles MD 06/17/2018 12:48 PM
[2018-06-17] MEDS: PROCHLORPERAZINE INJECTION 10 MG/2 ML VIAL IVPB PRN (13:07)
--- NOTE | 2018-06-17 14:49 | PN ---
Teaching Attending Note Name of Resident: Pilar Estrada ATTENDING PHYSICIAN STATEMENT I saw and evaluated the patient. I reviewed the resident's note and discussed the case with the resident. I agree with the resident's findings and plan as documented. SUBJECTIVE: No fever or chills. still has abd pain. vomited yesterday evening, none after then. reports being on subaxone and stopped it 2 weeks ago on her own. OBJECTIVE: NAD, awake, alert, comfortable HEENT: poor dentition , MMM, no JVD CV: RRR, no MRG Lungs: good air entry, no crackles or wheezes Abd: soft, ND, obese, TTP in all quadrants . no rebound tenderness or guarding Ext: L leg circumference > R . no edema. no tenderness Assessment/Plan: 48 y/o lady with h/o HTN, DM , depression /anxiety, PEs/DVTs, s/p IVCF, and on AC , chronci lower ext ulcers, and frequent hospitalizations who presented with N/V/D and a fall . She was found to have lactic acidosis , ANASTASIA , and HTN emergency. 1- HTN emergency: BP improved but still elevated. No orthostatic hypotension noted today . - cont labetalol and lisinopril - increase lisinopril to 40 ( give extra 20 today ) - follow aldosterone to renin ratio - Melonie's w/u as out pt - other wong for secondary causes as out pt 2- N/V/D: could be viral gastroenteritis , vs cyclic vomiting syndrome - follow c diff, stool cx , if she stools - cont PPI and carafate. - was on subaxone, stopped abruptly 2 weeks ago. withdrawal can start after 2-3 weeks of stopping. will consult sue lao MD 3- Leukocytosis : no signs of infection. 4- High anion gap metabolic acidosis : resolved 5- ANASTASIA: resolved 6- DM: diabetic diet and SSI 7- Depresion /anxiety: cont all psych meds 8- H/o PE/DVT: cont lovenox HLOC
[2018-06-17 15:22] LABS: HEP.C VIRUS AB 0.1 s/co ratio (0.0-0.9)
[2018-06-17] MEDS ORDERED: LISINOPRIL 20 MG TABLET (FP) PO ONE ×2 (16:42→20:00)
[2018-06-17] MEDS ORDERED: QUEtiapine FUMARATE 25 MG TABLET (FP) ONE (21:03)
[2018-06-17] MEDS ORDERED: traZODone HCL 50 MG TABLET (FP) ONE (21:03)
[2018-06-17] MEDS: traZODone HCL 100 MG TABLET (FP) PO SCH (21:07)
[2018-06-17] MEDS: QUEtiapine FUMARATE 50 MG TABLET PO SCH (21:08)
[2018-06-17] MEDS: ACETAMINOPHEN 325 MG TABLET (FP) PO PRN (22:20)
[2018-06-17] MEDS: LACTATED RINGERS SOLUTION 1,000 ML/1,000 ML INFUS.BAG IV SCH (22:21)
[2018-06-18] MEDS: MORPHINE SULFATE 2 MG/ML VIAL IVPUSH PRN ×2 (00:07→06:43)
[2018-06-18] MEDS: INSULIN SLIDING SCALE (NOVOLOG) 1 VIAL SQ SCH ×3 (06:42→16:48)
[2018-06-18] MEDS: PREGABALIN 100 MG CAPSULE PO SCH ×3 (06:43→21:24)
[2018-06-18] MEDS: VITAMINS A AND D TOPICAL OINTMENT 60 GM TUBE TP SCH ×3 (06:43→18:48)
[2018-06-18] MEDS ORDERED: PT OWN MED DRAWER 7, Y5N ONE ×2 (10:33→18:47)
[2018-06-18] MEDS: LACTATED RINGERS SOLUTION 1,000 ML/1,000 ML INFUS.BAG IV SCH (10:38)
[2018-06-18] MEDS: LABETALOL HCL 200 MG TABLET (FP) PO SCH ×2 (10:39→21:23)
[2018-06-18] MEDS: ESCITALOPRAM OXALATE 10 MG TABLET (FP) PO SCH (10:39)
[2018-06-18] MEDS: LISINOPRIL 20 MG TABLET (FP) PO SCH (10:39)
[2018-06-18] MEDS: SUCRALFATE 1 GM/10 ML UNIT DOSE CUPS PO SCH ×2 (10:39→21:24)
[2018-06-18] MEDS: ENOXAPARIN NA (PORCINE) 120 MG/0.8 ML DISP.SYRIN SQ SCH ×2 (10:40→21:24)
[2018-06-18] MEDS ORDERED: LABETALOL HCL 200 MG TABLET (FP) PO ONE (11:02)
[2018-06-18] MEDS ORDERED: INSULIN (NOVOLOG) ASPART 100 UNITS/ML 10ML VIAL ONE (11:11)
[2018-06-18] MEDS: PANTOPRAZOLE SODIUM 40 MG VIAL IVPUSH SCH (11:13)
[2018-06-18] MEDS: traMADol HCL 50 MG TABLET PO PRN ×2 (12:01→21:28)
[2018-06-18] MEDS: NYSTATIN POWDER 100,000 UNITS/GM - 15 GM TOPICAL POWDER TP SCH (12:02)
--- NOTE | 2018-06-18 13:08 | PN ---
Physical Exam: SUBJECTIVE: Patient is a 48 y/o female with a history of polysubstance abuse ( marijuana and heroin), DM, HTN, DVT ( s/p IVC filter in 2015), and CHF who is admitted for nausea, vomiting, and diarrhea. Patient reports she is still having episodes of diarrhea and is having abdominal pain. Denies having any appetite. OBJECTIVE: Vital Signs Temperature 98.0 F 06/18/18 05:45 Pulse Rate 76 06/18/18 05:45 Respiratory Rate 18 06/18/18 05:45 Blood Pressure 145/91 06/18/18 05:45 O2 Sat by Pulse Oximetry (%) 94 L 06/17/18 09:00 GENERAL: The patient is awake, alert, and fully oriented, obese HEAD: Normal with no signs of trauma, hirtsuism EYES: PERRL, extraocular movements intact, sclera anicteric, conjunctiva clear. No ptosis. . LUNGS: Breath sounds equal, clear to auscultation bilaterally, no wheezes, no crackles, no accessory muscle use. HEART: Regular rate and rhythm, S1, S2 without murmur, rub or gallop. ABDOMEN: soft, diffusely tender, active bowel sounds EXTREMITIES: 2+ pulses, warm, well-perfused, no edema. PSYCH: Normal mood, normal affect. SKIN: Warm, dry, normal turgor, no rashes or lesions noted Laboratory Results - last 24 hr 06/16/18 06/17/18 06/18/18 02:41 16:59 06:42 POC Glucometer 134 126 Hepatitis A IgM Ab Negative Hep Bs Antigen Negative Hep B Core IgM Ab Negative Hepatitis C Antibody 0.1 06/18/18 11:21 POC Glucometer 205 Hepatitis A IgM Ab Hep Bs Antigen Hep B Core IgM Ab Hepatitis C Antibody Active Medications Acetaminophen (Tylenol -) 325 mg PO TID PRN PRN Reason: PAIN Last Admin: 06/17/18 22:20 Dose: 325 mg Enoxaparin Sodium (Lovenox -) 120 mg SQ BID NI Last Admin: 06/18/18 10:40 Dose: 120 mg Escitalopram Oxalate (Lexapro -) 5 mg PO DAILY NI Last Admin: 06/18/18 10:39 Dose: 5 mg Lactated Ringer's (Lactated Ringers Solution) 1,000 ml in 1,000 mls @ 120 mls/ hr IV ASDIR NI Last Admin: 06/18/18 10:38 Dose: 120 mls/hr Insulin Aspart (Novolog Vial Sliding Scale -) 1 vial SQ TIDAC [facility]; Protocol Last Admin: 06/18/18 11:22 Dose: 4 unit Labetalol HCl (Normodyne -) 400 mg PO BID [facility] Lisinopril (Prinivil) 40 mg PO DAILY [facility] Last Admin: 06/18/18 10:39 Dose: 40 mg Nystatin (Nystop Powder -) 1 applic TP DAILY [facility] Last Admin: 06/18/18 12:02 Dose: 1 applic Pantoprazole Sodium (Protonix Iv) 40 mg IVPUSH DAILY [facility] Last Admin: 06/18/18 11:13 Dose: 40 mg Pregabalin (Lyrica -) 100 mg PO TID [facility] Last Admin: 06/18/18 06:43 Dose: 100 mg Prochlorperazine Edisylate (Compazine Injection -) 10 mg IVPB Q4H PRN PRN Reason: NAUSEA AND/OR VOMITING Last Admin: 06/17/18 13:07 Dose: 10 mg Quetiapine Fumarate (Seroquel -) 50 mg PO [facility] Last Admin: 06/17/18 21:08 Dose: 50 mg Sucralfate (Carafate Oral Suspension -) 2 gm PO BID [facility] Last Admin: 06/18/18 10:39 Dose: 2 gm Tramadol HCl (Ultram -) 50 mg PO Q8H PRN PRN Reason: PAIN LEVEL 6-10 Last Admin: 06/18/18 12:01 Dose: 50 mg Trazodone HCl (Desyrel -) 100 mg PO [facility] Last Admin: 06/17/18 21:07 Dose: 100 mg Vitamin A/Vitamin D (Vitamin A & D Top Oint -) 1 applic TP Q6HPO [facility] Last Admin: 06/18/18 11:29 Dose: 1 applic ASSESSMENT/PLAN: Patient is a 48 y/o female with a history of polysubstance abuse ( marijuana and heroin), DM, HTN, DVT ( s/p IVC filter in 2015), and CHF who is admitted for nausea, vomiting, and diarrhea. #nausea, vomiting, and diarrhea 2/2 c d.iff - advance to soft diabetic diet - protonix 40 mg daily - compazine on back order, repeat QTC 466 - sucralfate 2gm po BID - bc no growth so far, - f/u Ucx, stool cx, - afebrile, tachycardic - abd/pelvis CT: diffuse heaptic steatosis, mild hepatomegaly status post cholecystectomy - C. dff positive, began Vancomycin 125 mg q6h po #hx DVT 2014 - Lovenox 120 BID #DM - Pregabalin 100 mg po TID - SS - BGM TID AC - metformin held #HTN - lisinopril 40 mg daily - lebatolol 400mg BID #psych hx - quetiapine 50 mg po hs - Escitalopram 5 mg po daily #insomnia - Trazodone 100 mg hs #CHF - echo in 2016, echnically difficult - patient unaware of a history of CHF FEN Dispo: f/u BP and stool cx and c. diff cx, likely DC tomorrow - spoke to Dr. Urbano; patient could be withdrawing from Subaxone even being off it for two weeks- should treat symptomatically, check patients istop hx, Dr. Rosa Garcia, patient would be able to follow with her for pain management, but has to follow with the program. Patient does not wish to continue Subaxone Visit type - Emergency Visit Emergency Visit: No - New Patient This patient is new to me today: No - Critical Care Critical Care patient: No
--- NOTE | 2018-06-18 15:04 | PN ---
Teaching Attending Note Name of Resident: Brielle Simental ATTENDING PHYSICIAN STATEMENT I saw and evaluated the patient. I reviewed the resident's note and discussed the case with the resident. I agree with the resident's findings and plan as documented. SUBJECTIVE: No fever or chills . cont to have abd pain. diarrhea. no vomiting but has nausea. OBJECTIVE: NAD, awake, alert HEENT: poor dentition, MMM, no JVD CV: RRR, no MRG Lungs: good air entry, no crackles or wheezes Abd: soft, ND, obese, TTP in all quadrants . no rebound tenderness or guarding Ext: L leg circumference > R . + al ankle edema. no tenderness Assessment/Plan: 48 y/o lady with h/o HTN, DM , depression /anxiety, PEs/DVTs, s/p IVCF, and on AC , chronci lower ext ulcers, and frequent hospitalizations who presented with N/V/D and a fall . She was found to have lactic acidosis , ANASTASIA , and HTN emergency. 1- HTN emergency: uncontrolled - increase labetalol to 400 BID - cont cont increased dose of lisinopril at 40 - follow aldosterone to renin ratio - other wong for secondary causes as out pt 2- N/V/D: - C diff Ag + but toxin neg - start PO vanco - cont PPI and carafate. - Cyclic vomiting syndrome and subaxone withdrawal are still in DDx. pt refuses to go back on suboxone - dc morphine, add tramadol for pain . avoid narcotics due to history 3- ANASTASIA: resolved 4- DM: diabetic diet and SSI 5- Depresion /anxiety: cont all psych meds 6- H/o PE/DVT: cont lovenox HLOC
--- NOTE | 2018-06-18 16:59 | EKG ---
Test Reason : Blood Pressure : / mmHG Vent. Rate : 087 BPM Atrial Rate : 087 BPM P-R Int : 150 ms QRS Dur : 106 ms QT Int : 388 ms P-R-T Axes : 019 066 015 degrees QTc Int : 466 ms NORMAL SINUS RHYTHM NORMAL ECG Confirmed by MD NIKKIE, EDUARDO ([id number]) on 06/18/2018 4:58:42 PM Referred By: TERRENCE TRISTAN DR Confirmed By:EDUARDO LUDNY MD
[2018-06-18] MEDS ORDERED: ONDANSETRON 4 MG/2 ML VIAL IVPUSH ONE (19:23)
[2018-06-18] MEDS ORDERED: METOCLOPRAMIDE HCL INJECTION 10 MG/2 ML VIAL IVPUSH ONE (19:45)
[2018-06-18] MEDS ORDERED: KETOROLAC TROMETHAMINE 30 MG/1 ML VIAL IVPUSH ONE (19:45)
[2018-06-18] MEDS ORDERED: QUEtiapine FUMARATE 25 MG TABLET (FP) ONE (21:06)
[2018-06-18] MEDS ORDERED: traZODone HCL 50 MG TABLET (FP) ONE (21:06)
[2018-06-18] MEDS: QUEtiapine FUMARATE 50 MG TABLET PO SCH (21:24)
[2018-06-18] MEDS: traZODone HCL 100 MG TABLET (FP) PO SCH (21:24)
[2018-06-18] MEDS: VANCOMYCIN 250 MG/5 ML ORAL SOLUTION PO SCH (23:30)
[2018-06-19] MEDS: LACTATED RINGERS SOLUTION 1,000 ML/1,000 ML INFUS.BAG IV SCH ×2 (02:00→06:44)
[2018-06-19] MEDS: traMADol HCL 50 MG TABLET PO PRN ×3 (06:40→22:03)
[2018-06-19] MEDS: PREGABALIN 100 MG CAPSULE PO SCH ×3 (06:40→21:54)
[2018-06-19] MEDS: ACETAMINOPHEN 325 MG TABLET (FP) PO PRN ×3 (06:40→22:02)
[2018-06-19] MEDS: VANCOMYCIN 250 MG/5 ML ORAL SOLUTION PO SCH ×3 (06:41→18:00)
[2018-06-19] MEDS: INSULIN SLIDING SCALE (NOVOLOG) 1 VIAL SQ SCH ×3 (06:41→17:19)
[2018-06-19] MEDS: VITAMINS A AND D TOPICAL OINTMENT 60 GM TUBE TP SCH ×4 (06:42→18:00)
[2018-06-19] MEDS ORDERED: traMADol HCL 50 MG TABLET PO PRN (06:43)
[2018-06-19 07:29] LABS: HEMATOCRIT 40.1 % (32.4-45.2); HEMOGLOBIN 12.9 GM/dL (10.7-15.3); MCH 28.3 pg (25.7-33.7); MCHC 32.3 g/dl (32.0-36.0); MEAN CELL VOLUME 87.6 fl (80-96); MEAN PLT VOLUME 8.6 fl (7.5-11.1); PLATELET COUNT 231 K/MM3 (134-434); RBC 4.57 M/mm3 (3.60-5.2); RDW 13.4 % (11.6-15.6); WHITE BLOOD COUNT 7.8 K/mm3 (4.0-10.0)
[2018-06-19 07:37] LABS: ANION GAP 9 MMOL/L (8-16); BLOOD UREA NITROGEN 12 mg/dL (7-18); CALCIUM 8.8 mg/dL (8.5-10.1); CHLORIDE 107 mmol/L (98-107); CO2 29 mmol/L (21-32); CREATININE 0.9 mg/dL (0.55-1.3); GLUCOSE,RANDOM 135 mg/dL (74-106); POTASSIUM 3.3 mmol/L (3.5-5.1); SODIUM 144 mmol/L (136-145)
--- NOTE | 2018-06-19 07:48 | PN ---
Teaching Attending Note Name of Resident: Brielle Simental ATTENDING PHYSICIAN STATEMENT I saw and evaluated the patient. I reviewed the resident's note and discussed the case with the resident. I agree with the resident's findings and plan as documented. SUBJECTIVE: Patient continues to feel nauseas, tolerating only liquid diet. OBJECTIVE: Vital Signs Temperature 97.5 F L 06/19/18 05:55 Pulse Rate 60 06/19/18 05:55 Respiratory Rate 20 06/19/18 05:55 Blood Pressure 141/78 06/19/18 05:55 O2 Sat by Pulse Oximetry (%) 94 L 06/18/18 21:00 Initial Vital Signs Temp Pulse Resp BP Pulse Ox 99.3 F 123 H 20 191/118 H 97 06/15/18 17:44 06/15/18 17:44 06/15/18 17:44 06/15/18 17:44 06/15/18 17:44 GENERAL: The patient is awake, alert, and fully oriented, obese HEAD: Normal with no signs of trauma, hirtsuism EYES: PERRL, extraocular movements intact, sclera anicteric, conjunctiva clear. LUNGS: Breath sounds equal, clear to auscultation bilaterally, no wheezes, no crackles, no accessory muscle use. HEART: Regular rate and rhythm, S1, S2 without murmur, rub or gallop. ABDOMEN: soft, diffusely tender, active bowel sounds EXTREMITIES: 2+ pulses, warm, well-perfused, no edema. PSYCH: Normal mood, normal affect. SKIN: Warm, dry, normal turgor, no rashes or lesions noted CBCD WBC 9.3 K/mm3 (4.0-10.0) 06/17/18 06:15 RBC 4.95 M/mm3 (3.60-5.2) 06/17/18 06:15 Hgb 13.9 GM/dL (10.7-15.3) 06/17/18 06:15 Hct 43.9 % (32.4-45.2) 06/17/18 06:15 MCV 88.6 fl (80-96) 06/17/18 06:15 MCHC 31.7 g/dl (32.0-36.0) L 06/17/18 06:15 RDW 13.9 % (11.6-15.6) 06/17/18 06:15 Plt Count 271 K/MM3 (134-434) D 06/17/18 06:15 MPV 9.0 fl (7.5-11.1) 06/17/18 06:15 CMP Sodium 144 mmol/L (136-145) 06/19/18 06:20 Potassium 3.3 mmol/L (3.5-5.1) L 06/19/18 06:20 Chloride 107 mmol/L (98-107) 06/19/18 06:20 Carbon Dioxide 29 mmol/L (21-32) 06/19/18 06:20 Anion Gap 9 MMOL/L (8-16) 06/19/18 06:20 BUN 12 mg/dL (7-18) 06/19/18 06:20 Creatinine 0.9 mg/dL (0.55-1.3) 06/19/18 06:20 Creat Clearance w eGFR > 60 (>60) 06/19/18 06:20 Random Glucose 135 mg/dL (74-106) H 06/19/18 06:20 Calcium 8.8 mg/dL (8.5-10.1) 06/19/18 06:20 Total Bilirubin 0.8 mg/dL (0.2-1) 06/15/18 19:23 AST 14 U/L (15-37) L 06/15/18 19:23 ALT 26 U/L (13-61) 06/15/18 19:23 Alkaline Phosphatase 91 U/L (45-117) 06/15/18 19:23 Total Protein 9.0 g/dl (6.4-8.2) H 06/15/18 19:23 Albumin 4.6 g/dl (3.4-5.0) 06/15/18 19:23 CARDIAC ENZYMES Creatine Kinase 63 IU/L (26-192) 06/15/18 19:23 Troponin I < 0.02 ng/ml (0.00-0.05) 06/15/18 19:23 Current Medications Generic Name Dose Route Start Last Admin Trade Name Freq PRN Reason Stop Dose Admin Acetaminophen 325 mg 06/16/18 03:09 06/19/18 06:40 Tylenol - PO 325 mg TID PRN Administration PAIN Enoxaparin Sodium 120 mg 06/16/18 10:00 06/18/18 21:24 Lovenox - SQ 120 mg BID NI Administration Escitalopram Oxalate 5 mg 06/16/18 10:00 06/18/18 10:39 Lexapro - PO 5 mg DAILY NI Administration Lactated Ringer's 1,000 ml in 1,000 mls @ 120 mls/hr 06/16/18 03:15 06/19/18 06:44 Lactated Ringers Solution IV 120 mls/hr ASDIR NI Administration Insulin Aspart 1 vial 06/16/18 07:00 06/19/18 06:41 Novolog Vial Sliding Scale - SQ Not Given TIDAC [facility] Protocol Labetalol HCl 400 mg 06/18/18 22:00 06/18/18 21:23 Normodyne - PO 400 mg BID NI Administration Lisinopril 40 mg 06/18/18 10:00 06/18/18 10:39 Prinivil PO 40 mg DAILY NI Administration Nystatin 1 applic 06/16/18 14:00 06/18/18 12:02 Nystop Powder - TP 1 applic DAILY [facility] Administration Pantoprazole Sodium 40 mg 06/16/18 10:00 06/18/18 11:13 Protonix Iv IVPUSH 40 mg DAILY [facility] Administration Pregabalin 100 mg 06/16/18 06:00 06/19/18 06:40 Lyrica - PO 100 mg TID [facility] Administration Prochlorperazine Edisylate 10 mg 06/16/18 09:14 06/17/18 13:07 Compazine Injection - IVPB 10 mg Q4H PRN Administration NAUSEA AND/OR VOMITING Quetiapine Fumarate 50 mg 06/16/18 22:00 06/18/18 21:24 Seroquel - PO 50 mg HS [facility] Administration Sucralfate 2 gm 06/16/18 10:00 06/18/18 21:24 Carafate Oral Suspension - PO 2 gm BID [facility] Administration Tramadol HCl 50 mg 06/19/18 06:43 Ultram - PO Q6H PRN PAIN LEVEL 6-10 Trazodone HCl 100 mg 06/16/18 22:00 06/18/18 21:24 Desyrel - PO 100 mg HS NI Administration Vancomycin HCl 125 mg 06/18/18 18:00 06/19/18 06:41 Vancomycin Oral Solution PO 125 mg Q6HPO [facility] Administration Vitamin A/Vitamin D 1 applic 06/16/18 06:00 12/05/18 06:42 Vitamin A & D Top Oint - TP 1 applic Q6HPO NI Administration Home Medications Medication Instructions Recorded Pregabalin [Lyrica] 100 mg PO TID 10/02/16 Vitamin A & D Top Oint - 1 applic TP Q6HPO tube 08/24/17 Enoxaparin [Lovenox -] 120 mg SQ BID #60 disp.syrin 11/28/17 Lisinopril 20 mg PO DAILY 01/23/18 Zolpidem Tartrate [Ambien] 10 mg PO HS 01/23/18 traZODone HCL [Desyrel -] 100 mg PO HS 02/13/18 Escitalopram Oxalate [Lexapro -] 5 mg PO DAILY #14 tablet 05/17/18 Quetiapine Fumarate [Seroquel -] 50 mg PO HS #30 tablet 05/17/18 Buprenorphine/Naloxone [Suboxone 1 each SL BID #14 packet MDD 2 05/21/18 8Mg/2Mg Sl Film -] metFORMIN XR [Glucophage Xr -] 1 tab PO BID 06/17/18 ASSESSMENT AND PLAN: Patient is 48 y/o lady with h/o HTN, DM , depression /anxiety, PEs/DVTs, s/p IVCF, and on AC , chronci lower ext ulcers, and frequent hospitalizations who presented with N/V/D and a fall . She was found to have lactic acidosis , ANASTASIA , and HTN emergency. # Acute diarrhea due to Cdiff continue Vancomycin 125mg po q6h total of 10 days. Hold PPI due to cdiff. on carafate continue # HTN emergency: better controlled today continue labetalol to 400 BID , increased dose of lisinopril to 40 , follow aldosterone to renin ratio. further w/u as an outpatient. # N/V: Cyclic vomiting syndrome and subaxone withdrawal are still in DDx. pt refuses to go back on suboxone. s/p for morphine, add tramadol with tylenol for pain prn . avoid narcotics due to history # ANASTASIA: resolved # DM: diabetic diet and SSI # Depresion /anxiety: cont all psych meds # H/o PE/DVT: cont lovenox
[2018-06-19] MEDS ORDERED: POTASSIUM CHLORIDE TABS 20 MEQ TABLET.ER (FP) PO ONE (07:57)
[2018-06-19] MEDS ORDERED: PT OWN MED DRAWER 7, Y5N ONE ×2 (10:14→21:10)
[2018-06-19] MEDS: LISINOPRIL 20 MG TABLET (FP) PO SCH (10:37)
[2018-06-19] MEDS: SUCRALFATE 1 GM/10 ML UNIT DOSE CUPS PO SCH ×2 (10:38→21:53)
[2018-06-19] MEDS: ESCITALOPRAM OXALATE 10 MG TABLET (FP) PO SCH (10:38)
[2018-06-19] MEDS: ENOXAPARIN NA (PORCINE) 120 MG/0.8 ML DISP.SYRIN SQ SCH ×2 (10:38→21:53)
[2018-06-19] MEDS: LABETALOL HCL 200 MG TABLET (FP) PO SCH ×2 (10:38→21:54)
[2018-06-19] MEDS: PANTOPRAZOLE SODIUM 40 MG VIAL IVPUSH SCH (10:39)
[2018-06-19] MEDS: NYSTATIN POWDER 100,000 UNITS/GM - 15 GM TOPICAL POWDER TP SCH (11:42)
--- NOTE | 2018-06-19 14:04 | PN ---
Physical Exam: SUBJECTIVE: Patient is a 48 y/o female with a history of polysubstance abuse ( marijuana and heroin), DM, HTN, DVT ( s/p IVC filter in 2015), and CHF who is admitted for nausea, vomiting, and diarrhea. Patient has c. diff. Patient reports she is having continued nausea, vomiting, and diarrhea. Reports the pain has not been getting better and cannot tolerate food. OBJECTIVE: Vital Signs Temperature 97.5 F L 06/19/18 05:55 Pulse Rate 60 06/19/18 05:55 Respiratory Rate 20 06/19/18 05:55 Blood Pressure 141/78 06/19/18 05:55 O2 Sat by Pulse Oximetry (%) 94 L 06/18/18 21:00 GENERAL: The patient is awake, alert, and fully oriented, obese HEAD: Normal with no signs of trauma, hirtsuism EYES: PERRL, extraocular movements intact, sclera anicteric, conjunctiva clear. No ptosis. . LUNGS: Breath sounds equal, clear to auscultation bilaterally, no wheezes, no crackles, no accessory muscle use. HEART: Regular rate and rhythm, S1, S2 without murmur, rub or gallop. ABDOMEN: soft, diffusely tender, active bowel sounds EXTREMITIES: 2+ pulses, warm, well-perfused, no edema. PSYCH: Normal mood, normal affect. SKIN: Warm, dry, normal turgor, no rashes or lesions noted CBC, BMP 06/19/18 06:20 06/19/18 06:20 Active Medications Acetaminophen (Tylenol -) 325 mg PO TID PRN PRN Reason: PAIN Last Admin: 06/19/18 13:43 Dose: 325 mg Enoxaparin Sodium (Lovenox -) 120 mg SQ BID [facility] Last Admin: 06/19/18 10:38 Dose: 120 mg Escitalopram Oxalate (Lexapro -) 5 mg PO DAILY [facility] Last Admin: 06/19/18 10:38 Dose: 5 mg Lactated Ringer's (Lactated Ringers Solution) 1,000 ml in 1,000 mls @ 120 mls/ hr IV ASDIR [facility] Last Admin: 06/19/18 06:44 Dose: 120 mls/hr Famotidine/Sodium Chloride (Pepcid 20 Mg Premixed Ivpb -) 20 mg in 50 mls @ 100 mls/hr IVPB BID [facility] Insulin Aspart (Novolog Vial Sliding Scale -) 1 vial SQ TIDAC [facility]; Protocol Last Admin: 06/19/18 10:51 Dose: 2 unit Labetalol HCl (Normodyne -) 400 mg PO BID [facility] Last Admin: 06/19/18 10:38 Dose: 400 mg Lisinopril (Prinivil) 40 mg PO DAILY [facility] Last Admin: 06/19/18 10:37 Dose: 40 mg Nystatin (Nystop Powder -) 1 applic TP DAILY [facility] Last Admin: 06/19/18 11:42 Dose: Not Given Pregabalin (Lyrica -) 100 mg PO TID [facility] Last Admin: 06/19/18 13:43 Dose: 100 mg Prochlorperazine Edisylate (Compazine Injection -) 10 mg IVPB Q4H PRN PRN Reason: NAUSEA AND/OR VOMITING Last Admin: 06/17/18 13:07 Dose: 10 mg Quetiapine Fumarate (Seroquel -) 50 mg PO [facility] Last Admin: 06/18/18 21:24 Dose: 50 mg Sucralfate (Carafate Oral Suspension -) 2 gm PO BID [facility] Last Admin: 06/19/18 10:38 Dose: 2 gm Tramadol HCl (Ultram -) 50 mg PO Q8H PRN PRN Reason: PAIN LEVEL 6-10 Last Admin: 06/19/18 13:43 Dose: 50 mg Trazodone HCl (Desyrel -) 100 mg PO [facility] Last Admin: 06/18/18 21:24 Dose: 100 mg Vancomycin HCl (Vancomycin Oral Solution) 125 mg PO Q6HPO [facility] Last Admin: 06/19/18 13:44 Dose: 125 mg Vitamin A/Vitamin D (Vitamin A & D Top Oint -) 1 applic TP Q6HPO [facility] Last Admin: 06/19/18 06:42 Dose: 1 applic ASSESSMENT/PLAN: Patient is a 48 y/o female with a history of polysubstance abuse ( marijuana and heroin), DM, HTN, DVT ( s/p IVC filter in 2014), and CHF who is admitted for nausea, vomiting, and diarrhea. #nausea, vomiting, and diarrhea 2/2 c d.iff, cannot exclude withdrawl vs cyclical vomiting syndrome - liquid diet, advance tomorrow - protonix 40 mg daily - compazine for nausea due to prolonged QTC, repeat QTC 466 - sucralfate 2gm po BID - Famotidine 20 mg BID - bc no growth so far, - f/u Ucx, stool cx, - afebrile, tachycardic - abd/pelvis CT: diffuse heaptic steatosis, mild hepatomegaly status post cholecystectomy - C. dff positive, began Vancomycin 125 mg q6h po #hx DVT 2014 - Lovenox 120 BID #DM - Pregabalin 100 mg po TID - SS - BGM TID AC - metformin held #HTN - lisinopril 40 mg daily - lebatolol 400mg BID #psych hx - quetiapine 50 mg po hs - Escitalopram 5 mg po daily #insomnia - Trazodone 100 mg hs #CHF - echo in 2016, technically difficult - patient unaware of a history of CHF - Echo: EF: 55-60%, LV is normal. LV systolyic fxn is normal FEN - replete potassium Dispo: f/u BP and stool cx and c. diff cx, likely DC tomorrow - spoke to Dr. Urbano; patient could be withdrawing from Subaxone even being off it for two weeks- should treat symptomatically Dr. Rosa Garcia, patient would be able to follow with her for pain management, but has to follow with the program. Patient does not wish to continue Subaxone Visit type - Emergency Visit Emergency Visit: No - New Patient This patient is new to me today: No - Critical Care Critical Care patient: No
[2018-06-19] MEDS: PROCHLORPERAZINE INJECTION 10 MG/2 ML VIAL IVPB PRN (17:21)
[2018-06-19] MEDS ORDERED: traZODone HCL 50 MG TABLET (FP) ONE (21:09)
[2018-06-19] MEDS ORDERED: QUEtiapine FUMARATE 25 MG TABLET (FP) ONE (21:10)
[2018-06-19] MEDS: traZODone HCL 100 MG TABLET (FP) PO SCH (21:52)
[2018-06-19] MEDS: FAMOTIDINE 20 MG/50 ML IVPB 20 MG/50 ML MG IVPB SCH (21:52)
[2018-06-19] MEDS: QUEtiapine FUMARATE 50 MG TABLET PO SCH (21:53)
[2018-06-20] MEDS: VANCOMYCIN 250 MG/5 ML ORAL SOLUTION PO SCH ×5 (00:10→23:46)
[2018-06-20] MEDS: VITAMINS A AND D TOPICAL OINTMENT 60 GM TUBE TP SCH ×4 (00:10→23:47)
[2018-06-20 05:25] LABS: RENIN ACTIVITY(PRA) 1.162 ng/mL/hr (0.167-5.380)
[2018-06-20] MEDS: LACTATED RINGERS SOLUTION 1,000 ML/1,000 ML INFUS.BAG IV SCH ×2 (06:38→21:14)
[2018-06-20] MEDS: traMADol HCL 50 MG TABLET PO PRN ×2 (06:39→15:30)
[2018-06-20] MEDS: ACETAMINOPHEN 325 MG TABLET (FP) PO PRN ×2 (06:39→21:18)
[2018-06-20] MEDS: PREGABALIN 100 MG CAPSULE PO SCH ×3 (06:39→21:15)
[2018-06-20] MEDS: PROCHLORPERAZINE INJECTION 10 MG/2 ML VIAL IVPB PRN ×2 (06:43→17:43)
[2018-06-20] MEDS: INSULIN SLIDING SCALE (NOVOLOG) 1 VIAL SQ SCH ×3 (06:43→16:30)
[2018-06-20 08:09] LABS: HEMATOCRIT 44.6 % (32.4-45.2); HEMOGLOBIN 14.4 GM/dL (10.7-15.3); MCH 28.4 pg (25.7-33.7); MCHC 32.3 g/dl (32.0-36.0); MEAN CELL VOLUME 87.8 fl (80-96); PLATELET COUNT 247 K/MM3 (134-434); RBC 5.08 M/mm3 (3.60-5.2); RDW 13.2 % (11.6-15.6); WHITE BLOOD COUNT 7.9 K/mm3 (4.0-10.0)
[2018-06-20 08:11] LABS: ANION GAP 14 MMOL/L (8-16); BLOOD UREA NITROGEN 10 mg/dL (7-18); CALCIUM 8.8 mg/dL (8.5-10.1); CHLORIDE 104 mmol/L (98-107); CO2 22 mmol/L (21-32); CREATININE 0.8 mg/dL (0.55-1.3); GLUCOSE,RANDOM 163 mg/dL (74-106); MAGNESIUM 1.8 mg/dL (1.8-2.4); POTASSIUM 3.3 mmol/L (3.5-5.1); SODIUM 140 mmol/L (136-145)
--- NOTE | 2018-06-20 08:32 | PN ---
Teaching Attending Note Name of Resident: Brielle Simental ATTENDING PHYSICIAN STATEMENT I saw and evaluated the patient. I reviewed the resident's note and discussed the case with the resident. I agree with the resident's findings and plan as documented. SUBJECTIVE: Patient continues to have diarrhea, feels nausea. OBJECTIVE: Vital Signs Temperature 98.7 F 06/20/18 14:00 Pulse Rate 96 H 06/20/18 09:00 Respiratory Rate 20 06/20/18 09:00 Blood Pressure 157/108 H 06/20/18 09:00 O2 Sat by Pulse Oximetry (%) 94 L 06/19/18 21:00 GENERAL: The patient is awake, alert, and fully oriented, obese HEAD: Normal with no signs of trauma, hirtsuism EYES: PERRL, extraocular movements intact, sclera anicteric, conjunctiva clear. LUNGS: Breath sounds equal, clear to auscultation bilaterally, no wheezes, no crackles, no accessory muscle use. HEART: Regular rate and rhythm, S1, S2 without murmur, rub or gallop. ABDOMEN: soft, diffusely tender, active bowel sounds EXTREMITIES: 2+ pulses, warm, well-perfused, no edema. PSYCH: Normal mood, normal affect. SKIN: Warm, dry, normal turgor, no rashes or lesions noted CBCD WBC 7.9 K/mm3 (4.0-10.0) 06/20/18 06:45 RBC 5.08 M/mm3 (3.60-5.2) 06/20/18 06:45 Hgb 14.4 GM/dL (10.7-15.3) 06/20/18 06:45 Hct 44.6 % (32.4-45.2) 06/20/18 06:45 MCV 87.8 fl (80-96) 06/20/18 06:45 MCHC 32.3 g/dl (32.0-36.0) 06/20/18 06:45 RDW 13.2 % (11.6-15.6) 06/20/18 06:45 Plt Count 247 K/MM3 (134-434) 06/20/18 06:45 MPV 9.0 fl (7.5-11.1) 06/20/18 06:45 CMP Sodium 140 mmol/L (136-145) 06/20/18 06:45 Potassium 3.3 mmol/L (3.5-5.1) L 06/20/18 06:45 Chloride 104 mmol/L (98-107) 06/20/18 06:45 Carbon Dioxide 22 mmol/L (21-32) 06/20/18 06:45 Anion Gap 14 MMOL/L (8-16) 06/20/18 06:45 BUN 10 mg/dL (7-18) 06/20/18 06:45 Creatinine 0.8 mg/dL (0.55-1.3) 06/20/18 06:45 Creat Clearance w eGFR > 60 (>60) 06/20/18 06:45 Random Glucose 163 mg/dL (74-106) H 06/20/18 06:45 Calcium 8.8 mg/dL (8.5-10.1) 06/20/18 06:45 Total Bilirubin 0.8 mg/dL (0.2-1) 06/15/18 19:23 AST 14 U/L (15-37) L 06/15/18 19:23 ALT 26 U/L (13-61) 06/15/18 19:23 Alkaline Phosphatase 91 U/L (45-117) 06/15/18 19:23 Total Protein 9.0 g/dl (6.4-8.2) H 06/15/18 19:23 Albumin 4.6 g/dl (3.4-5.0) 06/15/18 19:23 CARDIAC ENZYMES Creatine Kinase 63 IU/L (26-192) 06/15/18 19:23 Troponin I < 0.02 ng/ml (0.00-0.05) 06/15/18 19:23 Current Medications Generic Name Dose Route Start Last Admin Trade Name Freq PRN Reason Stop Dose Admin Acetaminophen 325 mg 06/16/18 03:09 06/20/18 06:39 Tylenol - PO 325 mg TID PRN Administration PAIN Enoxaparin Sodium 120 mg 06/16/18 10:00 06/19/18 21:53 Lovenox - SQ 120 mg BID NI Administration Escitalopram Oxalate 5 mg 06/16/18 10:00 06/19/18 10:38 Lexapro - PO 5 mg DAILY NI Administration Lactated Ringer's 1,000 ml in 1,000 mls @ 120 mls/hr 06/16/18 03:15 06/20/18 06:38 Lactated Ringers Solution IV 120 mls/hr ASDIR NI Administration Famotidine/Sodium Chloride 20 mg in 50 mls @ 100 mls/hr 06/19/18 22:00 21:52 Pepcid 20 Mg Premixed Ivpb - IVPB 100 mls/hr BID NI Administration Insulin Aspart 1 vial 06/16/18 07:00 06/20/18 06:43 Novolog Vial Sliding Scale - SQ 2 unit TIDAC NI Administration Protocol Labetalol HCl 400 mg 06/18/18 22:00 06/19/18 21:54 Normodyne - PO 400 mg BID NI Administration Lisinopril 40 mg 06/18/18 10:00 06/19/18 10:37 Prinivil PO 40 mg DAILY NI Administration Nystatin 1 applic 06/16/18 14:00 06/19/18 11:42 Nystop Powder - TP Not Given DAILY [facility] Pregabalin 100 mg 06/16/18 06:00 06/20/18 06:39 Lyrica - PO 100 mg TID NI Administration Prochlorperazine Edisylate 10 mg 06/16/18 09:14 06/20/18 06:43 Compazine Injection - IVPB 10 mg Q4H PRN Administration NAUSEA AND/OR VOMITING Quetiapine Fumarate 50 mg 06/16/18 22:00 06/19/18 21:53 Seroquel - PO 50 mg HS NI Administration Sucralfate 2 gm 06/16/18 10:00 06/19/18 21:53 Carafate Oral Suspension - PO 2 gm BID NI Administration Tramadol HCl 50 mg 06/19/18 11:03 06/20/18 06:39 Ultram - PO 50 mg Q8H PRN Administration PAIN LEVEL 6-10 Trazodone HCl 100 mg 06/16/18 22:00 06/19/18 21:52 Desyrel - PO 100 mg HS NI Administration Vancomycin HCl 125 mg 06/18/18 18:00 06/20/18 06:39 Vancomycin Oral Solution PO 125 mg Q6HPO NI Administration Vitamin A/Vitamin D 1 applic 06/16/18 06:00 06/20/18 06:40 Vitamin A & D Top Oint - TP 1 applic Q6HPO NI Administration Home Medications Medication Instructions Recorded Pregabalin [Lyrica] 100 mg PO TID 10/02/16 Vitamin A & D Top Oint - 1 applic TP Q6HPO tube 08/24/17 Enoxaparin [Lovenox -] 120 mg SQ BID #60 disp.syrin 11/28/17 Lisinopril 20 mg PO DAILY 01/23/18 Zolpidem Tartrate [Ambien] 10 mg PO HS 01/23/18 traZODone HCL [Desyrel -] 100 mg PO HS 02/13/18 Escitalopram Oxalate [Lexapro -] 5 mg PO DAILY #14 tablet 05/17/18 Quetiapine Fumarate [Seroquel -] 50 mg PO HS #30 tablet 05/17/18 Buprenorphine/Naloxone [Suboxone 1 each SL BID #14 packet MDD 2 05/21/18 8Mg/2Mg Sl Film -] metFORMIN XR [Glucophage Xr -] 1 tab PO BID 06/17/18 Labetalol HCl [Normodyne -] 400 mg PO BID #120 tablet 06/19/18 Lisinopril [Prinivil] 40 mg PO DAILY #30 tablet 06/19/18 ASSESSMENT AND PLAN: Patient is 48 y/o lady with h/o HTN, DM , depression /anxiety, PEs/DVTs, s/p IVCF, and on AC , chronci lower ext ulcers, and frequent hospitalizations who presented with N/V/D and a fall . She was found to have lactic acidosis , ANASTASIA , and HTN emergency. # C-diff diarrhea continue Vancomycin 125mg po q6h for total of 10 days. Hold PPI due to cdiff. on carafate continue # HTN emergency: better controlled today continue labetalol to 400 BID , increased dose of lisinopril to 40mg. further w/u as an outpatient. # N/V: Cyclic vomiting syndrome and subaxone withdrawal are still in DDx. pt refuses to go back on suboxone. s/p for morphine, add tramadol with tylenol for pain prn . avoid narcotics due to history # ANASTASIA: resolved # DM: diabetic diet and SSI # Depresion /anxiety: cont. all psych meds # H/o PE/DVT: cont lovenox 120mh sq bid
[2018-06-20] MEDS ORDERED: POTASSIUM CHLORIDE TABS 20 MEQ TABLET.ER (FP) PO ONE (09:05)
[2018-06-20] MEDS ORDERED: PT OWN MED DRAWER 7, Y5N ONE ×3 (09:30→21:10)
[2018-06-20] MEDS: ESCITALOPRAM OXALATE 10 MG TABLET (FP) PO SCH (10:06)
[2018-06-20] MEDS: LABETALOL HCL 200 MG TABLET (FP) PO SCH ×3 (10:06→21:15)
[2018-06-20] MEDS: FAMOTIDINE 20 MG/50 ML IVPB 20 MG/50 ML MG IVPB SCH ×2 (10:06→21:16)
[2018-06-20] MEDS: SUCRALFATE 1 GM/10 ML UNIT DOSE CUPS PO SCH ×2 (10:07→21:14)
[2018-06-20] MEDS: ENOXAPARIN NA (PORCINE) 120 MG/0.8 ML DISP.SYRIN SQ SCH ×2 (10:08→21:17)
[2018-06-20] MEDS: LISINOPRIL 20 MG TABLET (FP) PO SCH (10:08)
[2018-06-20] MEDS: NYSTATIN POWDER 100,000 UNITS/GM - 15 GM TOPICAL POWDER TP SCH (10:27)
--- NOTE | 2018-06-20 10:27 | EKG ---
Test Reason : Blood Pressure : / mmHG Vent. Rate : 100 BPM Atrial Rate : 100 BPM P-R Int : 150 ms QRS Dur : 100 ms QT Int : 384 ms P-R-T Axes : 017 087 027 degrees QTc Int : 495 ms NORMAL SINUS RHYTHM PROLONGED QT ABNORMAL ECG WHEN COMPARED WITH ECG OF 18-JUN-2018 12:12, NO SIGNIFICANT CHANGE WAS FOUND Confirmed by RICHARD GARG MD ([id number]) on 06/20/2018 10:27:07 AM Referred By: Confirmed By:RICHARD GARG MD
--- NOTE | 2018-06-20 14:44 | PN ---
Physical Exam: SUBJECTIVE: Patient is a 48 y/o female with a history of polysubstance abuse ( marijuana and heroin), DM, HTN, DVT ( s/p IVC filter in 2015), and CHF who is admitted for nausea, vomiting, and diarrhea. Patient reports she still has not been able to eat. Had two episodes of vomiting over night and three episodes of diarrhea. No acute events overnight. OBJECTIVE: Vital Signs Temperature 98.7 F 06/20/18 14:00 Pulse Rate 96 H 06/20/18 09:00 Respiratory Rate 20 06/20/18 09:00 Blood Pressure 157/108 H 06/20/18 09:00 O2 Sat by Pulse Oximetry (%) 94 L 06/19/18 21:00 GENERAL: The patient is awake, alert, and fully oriented, obese HEAD: Normal with no signs of trauma, hirtsuism EYES: PERRL, extraocular movements intact, sclera anicteric, conjunctiva clear. No ptosis. . LUNGS: Breath sounds equal, clear to auscultation bilaterally, no wheezes, no crackles, no accessory muscle use. HEART: Regular rate and rhythm, S1, S2 without murmur, rub or gallop. ABDOMEN: soft, diffusely tender, active bowel sounds EXTREMITIES: 2+ pulses, warm, well-perfused, no edema. PSYCH: Normal mood, normal affect. SKIN: Warm, dry, normal turgor, no rashes or lesions noted CBC, BMP 06/20/18 06:45 06/20/18 06:45 Active Medications Acetaminophen (Tylenol -) 325 mg PO TID PRN PRN Reason: PAIN Last Admin: 06/20/18 06:39 Dose: 325 mg Enoxaparin Sodium (Lovenox -) 120 mg SQ BID [facility] Last Admin: 06/20/18 10:08 Dose: 120 mg Escitalopram Oxalate (Lexapro -) 5 mg PO DAILY [facility] Last Admin: 06/20/18 10:06 Dose: 5 mg Lactated Ringer's (Lactated Ringers Solution) 1,000 ml in 1,000 mls @ 120 mls/ hr IV ASDIR [facility] Last Admin: 06/20/18 06:38 Dose: 120 mls/hr Famotidine/Sodium Chloride (Pepcid 20 Mg Premixed Ivpb -) 20 mg in 50 mls @ 100 mls/hr IVPB BID [facility] Last Admin: 06/20/18 10:06 Dose: 100 mls/hr Insulin Aspart (Novolog Vial Sliding Scale -) 1 vial SQ TIDAC [facility]; Protocol Last Admin: 06/20/18 11:29 Dose: 2 unit Labetalol HCl (Normodyne -) 400 mg PO BID [facility] Last Admin: 06/20/18 10:06 Dose: 400 mg Lisinopril (Prinivil) 40 mg PO DAILY [facility] Last Admin: 06/20/18 10:08 Dose: 40 mg Nystatin (Nystop Powder -) 1 applic TP DAILY [facility] Last Admin: 06/20/18 10:27 Dose: 1 applic Pregabalin (Lyrica -) 100 mg PO TID [facility] Last Admin: 06/20/18 06:39 Dose: 100 mg Prochlorperazine Edisylate (Compazine Injection -) 10 mg IVPB Q4H PRN PRN Reason: NAUSEA AND/OR VOMITING Last Admin: 06/20/18 06:43 Dose: 10 mg Quetiapine Fumarate (Seroquel -) 50 mg PO [facility] Last Admin: 06/19/18 21:53 Dose: 50 mg Sucralfate (Carafate Oral Suspension -) 2 gm PO BID [facility] Last Admin: 06/20/18 10:07 Dose: 2 gm Tramadol HCl (Ultram -) 50 mg PO Q8H PRN PRN Reason: PAIN LEVEL 6-10 Last Admin: 06/20/18 06:39 Dose: 50 mg Trazodone HCl (Desyrel -) 100 mg PO [facility] Last Admin: 06/19/18 21:52 Dose: 100 mg Vancomycin HCl (Vancomycin Oral Solution) 125 mg PO Q6HPO [facility] Last Admin: 06/20/18 11:55 Dose: 125 mg Vitamin A/Vitamin D (Vitamin A & D Top Oint -) 1 applic TP Q6HPO [facility] Last Admin: 06/20/18 11:56 Dose: 1 applic ASSESSMENT/PLAN: Patient is a 48 y/o female with a history of polysubstance abuse ( marijuana and heroin), DM, HTN, DVT ( s/p IVC filter in 2015), and CHF who is admitted for nausea, vomiting, and diarrhea. #nausea, vomiting, and diarrhea 2/2 c d.iff, cannot exclude withdrawl vs cyclical vomiting syndrome - liquid diet, advance tomorrow - protonix 40 mg daily - compazine for nausea ONLY due to prolonged QTC, repeat QTC 495 - sucralfate 2gm po BID - Famotidine 20 mg BID - bc no growth so far, - Ucx, stool cx negative growth - afebrile, tachycardic - abd/pelvis CT: diffuse heaptic steatosis, mild hepatomegaly status post cholecystectomy - C. dff antigen positive, began Vancomycin 125 mg q6h po , positive history of c. diff #hx DVT 2014 - Lovenox 120 BID #DM - Pregabalin 100 mg po TID - SS - BGM TID AC - metformin held #HTN - lisinopril 40 mg daily - lebatolol 400mg BID #psych hx - quetiapine 50 mg po hs - Escitalopram 5 mg po daily #insomnia - Trazodone 100 mg hs #CHF - echo in 2016, technically difficult - patient unaware of a history of CHF - Echo: EF: 55-60%, LV is normal. LV systolyic fxn is normal FEN - replete potassium Dispo: symptoms not resolving, f/u Dr. Urbano, patient fell around 3 pm, f/u head CT Visit type - Emergency Visit Emergency Visit: No - New Patient This patient is new to me today: No - Critical Care Critical Care patient: No
--- NOTE | 2018-06-20 15:05 | FALL ---
Fall Exam - Event Witnessed fall: Yes Location of Fall: Patient Room Fall from: While ambulating - Pre-Fall Mental Status: Alert, Cooperative Current Medications: Current Medications Generic Name Dose Route Start Last Admin Trade Name Frealbino PRN Reason Stop Dose Admin Acetaminophen 325 mg 06/16/18 03:09 06/20/18 06:39 Tylenol - PO 325 mg TID PRN Administration PAIN Enoxaparin Sodium 120 mg 06/16/18 10:00 06/20/18 10:08 Lovenox - SQ 120 mg BID NI Administration Escitalopram Oxalate 5 mg 06/16/18 10:00 06/20/18 10:06 Lexapro - PO 5 mg DAILY NI Administration Lactated Ringer's 1,000 ml in 1,000 mls @ 120 mls/hr 06/16/18 03:15 06/20/18 06:38 Lactated Ringers Solution IV 120 mls/hr ASDIR NI Administration Famotidine/Sodium Chloride 20 mg in 50 mls @ 100 mls/hr 06/19/18 22:00 10:06 Pepcid 20 Mg Premixed Ivpb - IVPB 100 mls/hr BID NI Administration Insulin Aspart 1 vial 06/16/18 07:00 06/20/18 11:29 Novolog Vial Sliding Scale - SQ 2 unit TIDAC NI Administration Protocol Labetalol HCl 400 mg 06/18/18 22:00 06/20/18 10:06 Normodyne - PO 400 mg BID NI Administration Lisinopril 40 mg 06/18/18 10:00 06/20/18 10:08 Prinivil PO 40 mg DAILY NI Administration Nystatin 1 applic 06/16/18 14:00 06/20/18 10:27 Nystop Powder - TP 1 applic DAILY NI Administration Pregabalin 100 mg 06/16/18 06:00 06/20/18 06:39 Lyrica - PO 100 mg TID NI Administration Prochlorperazine Edisylate 10 mg 06/16/18 09:14 06/20/18 06:43 Compazine Injection - IVPB 10 mg Q4H PRN Administration NAUSEA AND/OR VOMITING Quetiapine Fumarate 50 mg 06/16/18 22:00 06/19/18 21:53 Seroquel - PO 50 mg HS NI Administration Sucralfate 2 gm 06/16/18 10:00 06/20/18 10:07 Carafate Oral Suspension - PO 2 gm BID NI Administration Tramadol HCl 50 mg 06/19/18 11:03 06/20/18 06:39 Ultram - PO 50 mg Q8H PRN Administration PAIN LEVEL 6-10 Trazodone HCl 100 mg 06/16/18 22:00 06/19/18 21:52 Desyrel - PO 100 mg HS NI Administration Vancomycin HCl 125 mg 06/18/18 18:00 06/20/18 11:55 Vancomycin Oral Solution PO 125 mg Q6HPO NI Administration Vitamin A/Vitamin D 1 applic 06/16/18 06:00 06/20/18 11:56 Vitamin A & D Top Oint - TP 1 applic Q6HPO NI Administration - Post-Fall Patient Outcome: No Injury Exam Findings: GENERAL: in good spirits. AAOx3, in NAD. HEENT: normocephalic, atraumatic. without bruising or scalp tenderness. EOMI, PERRLA. PULM: CTA b/l, without rhonchi, wheezes or crackles. CARDIO: S1, S2 RRR. no r/m/g. ABDOMEN: without guarding, or rigidity. EXTREMITIES: 2+ pt pulses, no edema. MSK: 5/5 motor strength in upper and lower extremities. NEURO: research chief engineer 2-12 grossly intact. sensation intact throughout. no facial droop. no focal neurological deficits Treatment: None Vital Signs: Vital Signs Temperature 98.7 F 06/20/18 14:00 Pulse Rate 96 H 06/20/18 09:00 Respiratory Rate 20 06/20/18 09:00 Blood Pressure 157/108 H 06/20/18 09:00 O2 Sat by Pulse Oximetry (%) 94 L 06/19/18 21:00 LOC Post-Fall: Awake, Alert, Oriented Identify factors for HIGH RISK for Head Injury: Pt on anticoagulant Plan - Progress Note Progress Note: 06/20/18 15:12 #s/p witnessed fall -witnessed by nursing staff, while ambulating to bathroom -likely mechanical. research chief engineer 2-12 grossly intact, sensation intact throughout. preserved motor strength -as on lovenox, will order stat Head CT non-con for further evaluation. -will encourage PO intake, hydration - Order(s) Order(s): Orders Medication Instructions Recorded metFORMIN XR [Glucophage Xr -] 1 tab PO BID 06/17/18 Labetalol HCl [Normodyne -] 400 mg PO BID #120 tablet 06/19/18 Lisinopril [Prinivil] 40 mg PO DAILY #30 tablet 06/19/18 - Laboratory CBC & Chemistry Diagram: 06/20/18 06:45 06/20/18 06:45 Lab/Micro Results: - Radiology Study(ies) Orders: Category Date Time Status HEAD CT WITHOUT CONTRAST [CT] Stat CT Scan 06/20/18 15:02 Ordered
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
[2018-06-20] MEDS ORDERED: traZODone HCL 50 MG TABLET (FP) ONE (21:08)
[2018-06-20] MEDS ORDERED: QUEtiapine FUMARATE 25 MG TABLET (FP) ONE (21:09)
[2018-06-20] MEDS: QUEtiapine FUMARATE 50 MG TABLET PO SCH (21:16)
[2018-06-20] MEDS: traZODone HCL 100 MG TABLET (FP) PO SCH (21:17)
[2018-06-20] MEDS: BUPRENORPHINE/NALOXONE 2 MG/0.5 MG FILM PACKET SL SCH (21:17)
[2018-06-21] MEDS: LACTATED RINGERS SOLUTION 1,000 ML/1,000 ML INFUS.BAG IV SCH (05:11)
[2018-06-21] MEDS: VANCOMYCIN 250 MG/5 ML ORAL SOLUTION PO SCH ×3 (07:05→11:47)
[2018-06-21] MEDS: PREGABALIN 100 MG CAPSULE PO SCH ×2 (07:06→13:32)
[2018-06-21] MEDS: VITAMINS A AND D TOPICAL OINTMENT 60 GM TUBE TP SCH ×3 (07:06→11:47)
[2018-06-21] MEDS: PROCHLORPERAZINE INJECTION 10 MG/2 ML VIAL IVPB PRN (07:06)
[2018-06-21] MEDS: INSULIN SLIDING SCALE (NOVOLOG) 1 VIAL SQ SCH ×2 (07:09→11:49)
[2018-06-21 08:37] LABS: ANION GAP 12 MMOL/L (8-16); BLOOD UREA NITROGEN 13 mg/dL (7-18); CALCIUM 8.8 mg/dL (8.5-10.1); CHLORIDE 103 mmol/L (98-107); CO2 23 mmol/L (21-32); CREATININE 1.3 mg/dL (0.55-1.3); GLUCOSE,RANDOM 171 mg/dL (74-106); POTASSIUM 3.4 mmol/L (3.5-5.1); SODIUM 138 mmol/L (136-145)
[2018-06-21] MEDS ORDERED: POTASSIUM CHLORIDE TABS 20 MEQ TABLET.ER (FP) PO ONE (08:40)
[2018-06-21 09:29] VITALS: TEMP 97.7
[2018-06-21] MEDS: FAMOTIDINE 20 MG/50 ML IVPB 20 MG/50 ML MG IVPB SCH (10:09)
[2018-06-21] MEDS: ENOXAPARIN NA (PORCINE) 120 MG/0.8 ML DISP.SYRIN SQ SCH (10:09)
[2018-06-21] MEDS: LISINOPRIL 20 MG TABLET (FP) PO SCH (10:10)
[2018-06-21] MEDS: LABETALOL HCL 200 MG TABLET (FP) PO SCH (10:10)
[2018-06-21] MEDS: NYSTATIN POWDER 100,000 UNITS/GM - 15 GM TOPICAL POWDER TP SCH (10:10)
[2018-06-21] MEDS: SUCRALFATE 1 GM/10 ML UNIT DOSE CUPS PO SCH (10:10)
[2018-06-21] MEDS: ESCITALOPRAM OXALATE 10 MG TABLET (FP) PO SCH (10:10)
[2018-06-21] MEDS: BUPRENORPHINE/NALOXONE 2 MG/0.5 MG FILM PACKET SL SCH (10:10)
[2018-06-21] MEDS ORDERED: LISINOPRIL 20 MG TABLET (FP) PO SCH (11:12)
--- NOTE | 2018-06-21 11:52 | DS ---
Physical Exam: SUBJECTIVE: Patient is a 48 y/o female with a history of polysubstance abuse ( marijuana and heroin), DM, HTN, DVT ( s/p IVC filter in 2015), and CHF who is admitted for nausea, vomiting, and diarrhea. Patient reports she still has not been able to eat. Had two episodes of vomiting over night and three episodes of diarrhea. No acute events overnight. OBJECTIVE: Vital Signs Temperature 97.7 F 06/21/18 09:28 Pulse Rate 91 H 06/21/18 09:28 Respiratory Rate 20 06/21/18 09:28 Blood Pressure 108/62 06/21/18 09:28 O2 Sat by Pulse Oximetry (%) 96 06/20/18 21:00 PHYSICAL EXAM GENERAL: The patient is awake, alert, and fully oriented, obese HEAD: Normal with no signs of trauma, hirtsuism EYES: PERRL, extraocular movements intact, sclera anicteric, conjunctiva clear. No ptosis. . LUNGS: Breath sounds equal, clear to auscultation bilaterally, no wheezes, no crackles, no accessory muscle use. HEART: Regular rate and rhythm, S1, S2 without murmur, rub or gallop. ABDOMEN: soft, diffusely tender, active bowel sounds EXTREMITIES: 2+ pulses, warm, well-perfused, no edema. PSYCH: Normal mood, normal affect. SKIN: Warm, dry, normal turgor, no rashes or lesions noted LABS Laboratory Results - last 24 hr 06/20/18 06/20/18 06/21/18 11:28 17:40 05:58 Sodium Potassium Chloride Carbon Dioxide Anion Gap BUN Creatinine Creat Clearance w eGFR POC Glucometer 155 122 227 Random Glucose Calcium 06/21/18 06:00 Sodium 138 Potassium 3.4 L Chloride 103 Carbon Dioxide 23 Anion Gap 12 BUN 13 Creatinine 1.3 Creat Clearance w eGFR 44.10 POC Glucometer Random Glucose 171 H Calcium 8.8 HOSPITAL COURSE: Date of Admission:06/16/18 Patient admitted to the hospital for nausea, vomiting, diarrhea. Patient QTC prolonged to 495 and given compazine to symptomatically treat nausea. Patient had tapered herself off suboxone . Detox ,Dr. Urbano, restarted patients Suboxone and her symptoms resolved. C. diff came resulted positive. Patient placed on Vancomycin and will complete treatment as an outpatient. Patient will follow up as an outpatient for treatment with her suboxone, appointment made with Rosa Garcia. abd CT: diffuse hepatic steatosis, status post cholecystectomy, stable right ovarian cyst CXR: no acute pathology head CT: no intracranial hemorrhage, no gross mass lesion, ventricles unremarkable Knee xray: left knee arthritic changed tibula/fibula xray: old fracture Stool CX: negative Urine Cx: negative Date of Discharge: 06/21/18 Minutes to complete discharge: 36 Discharge Summary Reason For Visit: SEPSIS Condition: Stable - Instructions Diet, Activity, Other Instructions: You were admitted to the hospital because of diarrhea and vomiting. You were found to have an infection called c. diff. We started you on antibiotic , please continue taking for to the completion of 10 days. To complete treatment of this infection please take: Vancomycin 125 mg by mouth. Please take one pill tonight at 6 pm. For tomorrow please take one pill at 12 am, 6 am, 6 pm, and 8 pm starting tomorrow and continue for 7 days. While you were here your blood pressure was high. To treat your high blood pressure please take: Lisinopril 40 mg by mouth once a day Lebatelol 400 mg by mouth twice a day To treat your opioid dependence please continue to take: Suboxone 2mg/0.5mg once a day by mouth every day. Continue to follow with Dr. Urbano and Rosa Garcia FOREST TECHNICIAN for your Suboxone prescription. Please continue to take your home medications as prescribed. Please follow up with your primary care physician within one week. Please return to the Emergency Department if you have any nausea, vomiting, diarrhea, chest pain, shortness of breath, or headache. Referrals: Concepción Urbano DO [Staff Physician] - 1 Week Rosa Garcia NP [Nurse Practitioner] - 06/25/18 9:00 am Disposition: HOME - Home Medications Comprehensive Discharge Medication List: Ambulatory Orders Pregabalin [Lyrica] 100 mg PO TID 10/02/16 Vitamin A & D Top Oint - 1 applic TP Q6HPO tube 08/24/17 Enoxaparin [Lovenox -] 120 mg SQ BID #60 disp.syrin 11/28/17 Zolpidem Tartrate [Ambien] 10 mg PO HS 01/23/18 traZODone HCL [Desyrel -] 100 mg PO HS 02/13/18 Escitalopram Oxalate [Lexapro -] 5 mg PO DAILY #14 tablet 05/17/18 Quetiapine Fumarate [Seroquel -] 50 mg PO HS #30 tablet 05/17/18 metFORMIN XR [Glucophage Xr -] 1 tab PO BID 06/17/18 Labetalol HCl [Normodyne -] 400 mg PO BID #120 tablet 06/19/18 Buprenorphine/Naloxone [Suboxone 2Mg/0.5MG Sl Film -] 1 combo SL DAILY #6 packet MDD 1 06/21/18 Lisinopril 20 mg PO DAILY #30 tablet 06/21/18 Vancomycin HCl 125 mg PO QID #29 capsule 06/21/18 This patient is new to me today: No Emergency Visit: No Critical Care patient: No - Discharge Referral Referred to [facility] No
--- NOTE | 2018-06-21 11:55 | PN ---
[facility] Progress Note Note: Spoke with patient who wishes to resume coming to [facility] and suboxone. Verified with [facility] Director that patient can come back on Monday 06/[address] bruner that I will e-Rx for suboxone 2mg and will see patient in [facility] for follow up next week
[2018-06-21 13:31] VITALS: BP 111/69; PULSE 82
--- NOTE | 2018-06-21 16:30 | PN ---
Teaching Attending Note Name of Resident: Brielle Simental ATTENDING PHYSICIAN STATEMENT I saw and evaluated the patient. I reviewed the resident's note and discussed the case with the resident. I agree with the resident's findings and plan as documented. SUBJECTIVE: Patient is feeling better post Suboxone treatment, no further abdominal pain. OBJECTIVE: Vital Signs Temperature 97.7 F 06/21/18 13:30 Pulse Rate 82 06/21/18 13:30 Respiratory Rate 20 06/21/18 13:30 Blood Pressure 111/69 06/21/18 13:30 O2 Sat by Pulse Oximetry (%) 96 06/21/18 09:00 GENERAL: The patient is awake, alert, and fully oriented, obese HEAD: Normal with no signs of trauma, hirtsuism EYES: PERRL, extraocular movements intact, sclera anicteric, conjunctiva clear. LUNGS: Breath sounds equal, clear to auscultation bilaterally, no wheezes, no crackles, no accessory muscle use. HEART: Regular rate and rhythm, S1, S2 without murmur, rub or gallop. ABDOMEN: soft, NT, active bowel sounds, large abdomen. EXTREMITIES: 2+ pulses, warm, well-perfused, no edema. PSYCH: Normal mood, normal affect. SKIN: Warm, dry, normal turgor, no rashes or lesions noted CBCD WBC 7.9 K/mm3 (4.0-10.0) 06/20/18 06:45 RBC 5.08 M/mm3 (3.60-5.2) 06/20/18 06:45 Hgb 14.4 GM/dL (10.7-15.3) 06/20/18 06:45 Hct 44.6 % (32.4-45.2) 06/20/18 06:45 MCV 87.8 fl (80-96) 06/20/18 06:45 MCHC 32.3 g/dl (32.0-36.0) 06/20/18 06:45 RDW 13.2 % (11.6-15.6) 06/20/18 06:45 Plt Count 247 K/MM3 (134-434) 06/20/18 06:45 MPV 9.0 fl (7.5-11.1) 06/20/18 06:45 CMP Sodium 138 mmol/L (136-145) 06/21/18 06:00 Potassium 3.4 mmol/L (3.5-5.1) L 06/21/18 06:00 Chloride 103 mmol/L (98-107) 06/21/18 06:00 Carbon Dioxide 23 mmol/L (21-32) 06/21/18 06:00 Anion Gap 12 MMOL/L (8-16) 06/21/18 06:00 BUN 13 mg/dL (7-18) 06/21/18 06:00 Creatinine 1.3 mg/dL (0.55-1.3) 06/21/18 06:00 Creat Clearance w eGFR 44.10 (>60) 06/21/18 06:00 Random Glucose 171 mg/dL (74-106) H 06/21/18 06:00 Calcium 8.8 mg/dL (8.5-10.1) 06/21/18 06:00 Total Bilirubin 0.8 mg/dL (0.2-1) 06/15/18 19:23 AST 14 U/L (15-37) L 06/15/18 19:23 ALT 26 U/L (13-61) 06/15/18 19:23 Alkaline Phosphatase 91 U/L (45-117) 06/15/18 19:23 Total Protein 9.0 g/dl (6.4-8.2) H 06/15/18 19:23 Albumin 4.6 g/dl (3.4-5.0) 06/15/18 19:23 CARDIAC ENZYMES Creatine Kinase 63 IU/L (26-192) 06/15/18 19:23 Troponin I < 0.02 ng/ml (0.00-0.05) 06/15/18 19:23 Home Medications Medication Instructions Recorded Pregabalin [Lyrica] 100 mg PO TID 10/02/16 Vitamin A & D Top Oint - 1 applic TP Q6HPO tube 08/24/17 Enoxaparin [Lovenox -] 120 mg SQ BID #60 disp.syrin 11/28/17 Zolpidem Tartrate [Ambien] 10 mg PO HS 01/23/18 traZODone HCL [Desyrel -] 100 mg PO HS 02/13/18 Escitalopram Oxalate [Lexapro -] 5 mg PO DAILY #14 tablet 05/17/18 Quetiapine Fumarate [Seroquel -] 50 mg PO HS #30 tablet 05/17/18 metFORMIN XR [Glucophage Xr -] 1 tab PO BID 06/17/18 Labetalol HCl [Normodyne -] 400 mg PO BID #120 tablet 06/19/18 Buprenorphine/Naloxone [Suboxone 1 combo SL DAILY #6 packet MDD 1 06/21/18 2Mg/0.5MG Sl Film -] Lisinopril 20 mg PO DAILY #30 tablet 06/21/18 Vancomycin HCl 125 mg PO QID #29 capsule 06/21/18 ASSESSMENT AND PLAN: Patient is 48 y/o lady with h/o HTN, DM , depression /anxiety, PEs/DVTs, s/p IVCF, and on AC , chronci lower ext ulcers, and frequent hospitalizations who presented with N/V/D and a fall . She was found to have lactic acidosis , ANASTASIA , and HTN emergency. # C-diff diarrhea continue Vancomycin 125mg po q6h for total of 10 days 7 more days left. Hold PPI due to cdiff. # HTN emergency: better controlled today continue labetalol to 400 BID , reduced the dose of lisinopril back to 20mg since creatinine level is increased and ask the patient to drink oral fluid, and follow up with PMD and repeat lab work in a week, further w/u as an outpatient. # N/V: Cyclic vomiting syndrome due to subaxone withdrawal since patient stopped the suboxone by her own. was placed back by the detox dr. # ANASTASIA : placed the patient back to lower dose of lisinopril. presented with 1.3 on admission. reduced the dose of metformin to 500mg XR daily with Janumet vs 750mg po bid # DM: changed to once a day Janumet 500/50mg since e-GFR is 43 and discontinued home Metformin XR 750mg op bid # Depresion /anxiety: cont. all psych meds # H/o PE/DVT: cont lovenox 120mh sq bid
== END 2018-06-21 14:10 | disposition home or self-care (01) | DRG 720 ==
LOC: JER 17:33 → JERBED 06-16 00:51 → OBSVTOIN 06-16 02:46 → J6S 06-16 15:25
PROVIDERS: ADMIT Internal Medicine; ATTEND Internal Medicine
DX: A41.9 Sepsis, unspecified organism (principal); A04.72 Enterocolitis due to Clostridium difficile, not specified as recurrent; E87.2 Acidosis; E11.9 Type 2 diabetes mellitus without complications; R11.2 Nausea with vomiting, unspecified; E66.01 Morbid (severe) obesity due to excess calories; Z68.42 Body mass index [BMI] 45.0-49.9, adult; I10 Essential (primary) hypertension; E78.5 Hyperlipidemia, unspecified; R55 Syncope and collapse; F19.10 Other psychoactive substance abuse, uncomplicated; F41.8 Other specified anxiety disorders; F17.210 Nicotine dependence, cigarettes, uncomplicated; I11.0 Hypertensive heart disease with heart failure; D72.829 Elevated white blood cell count, unspecified; E11.622 Type 2 diabetes mellitus with other skin ulcer; L97.808 Non-pressure chronic ulcer of other part of unspecified lower leg with other specified severity; E11.65 Type 2 diabetes mellitus with hyperglycemia; E86.0 Dehydration; I95.1 Orthostatic hypotension; N17.9 Acute kidney failure, unspecified; I16.1 Hypertensive emergency; G47.00 Insomnia, unspecified; A08.4 Viral intestinal infection, unspecified; N83.201 Unspecified ovarian cyst, right side; I45.81 Long QT syndrome; Z86.711 Personal history of pulmonary embolism; Z86.718 Personal history of other venous thrombosis and embolism
CPT/HCPCS: 36415; 70450-TC; 71045-TC-FY; 73562-TC-LT-FY; 73590-TC-LT-FY; 74177-TC; 80048; 80053; 80074; 80307; 81003; 81015; 82088; 82550; 82607; 82962; 83036; 83605; 83690; 83735; 83880; 84100; 84244; 84443; 84484; 84702; 84703; 85025; 85027; 85610; 85651; 85730; 86140; 87040; 87045; 87046; 87086; 87205; 87324; 87389; 87449; 87804; 93005; 93010; 93306-TC; 97116-GP; 97161-GP; 99285-25; G0378; J0131; J7030

== ENCOUNTER 2018-07-17 13:01 | Emergency (ER) | payer SELFPAY ==
[2018-07-17 13:15] VITALS: BMI 45.7
--- NOTE | 2018-07-17 13:55 | PDOC ---
History of Present Illness - General Chief Complaint: Pain, Acute Stated Complaint: ABD PAIN Time Seen by Provider: 07/17/18 13:54 - History of Present Illness Initial Comments: 07/17/18 14:21 Ms. Cobb is a 48 yo female w/ pmh of polysubstance abuse, DM, HTN, CHF, DVT (s /p ZIVZC filter on lovenox), w/ recent diagnosis of c. difficile (d/c 06/21 on 10 days vancomycin from this hospital) who presents for evaluation of daily diarrhea since discharge with additional 1 day history of right lower back pain she describes as stabbing in character. She also reports recent increased urinary frequency and foul smelling urine. Patient denies other symptoms. The patient denies chest pain, shortness of breath, headache and dizziness. Denies fever, chills, nausea, vomit, and constipation. Past History - Past Medical History Allergies/Adverse Reactions: Allergies Allergy/AdvReac Type Severity Reaction Status Date / Time ondansetron [From Zofran] AdvReac Severe Verified 07/17/18 13:12 Home Medications: Ambulatory Orders Pregabalin [Lyrica] 100 mg PO TID 10/02/16 Vitamin A & D Top Oint - 1 applic TP Q6HPO tube 08/24/17 Enoxaparin [Lovenox -] 120 mg SQ BID #60 disp.syrin 11/28/17 Zolpidem Tartrate [Ambien] 10 mg PO HS 01/23/18 traZODone HCL [Desyrel -] 100 mg PO HS 02/13/18 Escitalopram Oxalate [Lexapro -] 5 mg PO DAILY #14 tablet 05/17/18 Quetiapine Fumarate [Seroquel -] 50 mg PO HS #30 tablet 05/17/18 Labetalol HCl [Normodyne -] 400 mg PO BID #120 tablet 06/19/18 Lisinopril 20 mg PO DAILY #30 tablet 06/21/18 Sitagliptin Phos/Metformin HCl [Janumet Xr 50-500 mg Tablet] 1 each PO DAILY # 30 tbmp.24hr 06/21/18 Buprenorphine/Naloxone [Suboxone 2Mg/0.5MG Sl Film -] 1 combo SL DAILY #7 packet MDD 1 06/26/18 Naloxone HCl [Narcan] 4 mg NS ONCE #1 spray 06/26/18 Anemia: No Asthma: No Cancer: No Cardiac Disorders: No CVA: No COPD: No CHF: No DVT: Yes Dementia: No Diabetes: Yes (type 2) Dialysis: No ([facility] 2016.) GI Disorders: Yes (diarrhea) Disorders: Yes (bladder prolapse 2011) HTN: Yes Hypercholesterolemia: No Kidney Stones: Yes Liver Disease: No Psychiatric Problems: Yes (anxiety depression) Seizures: No Thyroid Disease: No - Surgical History Abdominal Surgery: Yes Appendectomy: No Cardiac Surgery: No Cholecystectomy: Yes (2003) Lung Surgery: No Neurologic Surgery: No Orthopedic Surgery: No - Immunization History Td Vaccination: Yes Immunization Up to Date: Yes - Suicide/Smoking/Psychosocial Hx Smoking Status: No Smoking History: Never smoked Have you smoked in the past 12 months: Yes Number of Cigarettes Smoked Daily: 5 Cigars Per Day: 0 'Breaking Loose' booklet given: 03/02/17 Hx Alcohol Use: No Drug/Substance Use Hx: No Substance Use Type: Cocaine, Marijuana, Opiates Hx Substance Use Treatment: Yes (suboxone maintenance 16mg daily /New Focus) Review of Systems - Review of Systems Comments:: 07/17/18 14:23 GENERAL/CONSTITUTIONAL: No fever or chills. No weakness. HEAD, EYES, EARS, NOSE AND THROAT: No change in vision. No ear pain or discharge. No sore throat. CARDIOVASCULAR: No chest pain or shortness of breath RESPIRATORY: No cough, wheezing, or hemoptysis. GASTROINTESTINAL: +Daily diarrhea as described. Right lower back pain stabbing in character. No nausea, vomiting, or constipation. GENITOURINARY: No dysuria, frequency, or change in urination. MUSCULOSKELETAL: No joint or muscle swelling or pain. No neck or back pain. SKIN: No rash NEUROLOGIC: No headache, vertigo, loss of consciousness, or change in strength/ sensation. ENDOCRINE: No increased thirst. No abnormal weight change HEMATOLOGIC/LYMPHATIC: No anemia, easy bleeding, or history of blood clots. ALLERGIC/IMMUNOLOGIC: No hives or skin allergy. *Physical Exam - Vital Signs Last Vital Signs Temp Pulse Resp BP Pulse Ox 98.6 F 100 H 18 114/86 96 07/17/18 13:12 07/17/18 13:12 07/17/18 13:12 07/17/18 13:12 07/17/18 13:12 - Physical Exam Comments: 07/17/18 14:24 GENERAL: +Patient morbidly obese. Awake, alert, and fully oriented, in no acute distress HEAD: No signs of trauma, normocephalic, atraumatic EYES: PERRLA, EOMI, sclera anicteric, conjunctiva clear ENT: Auricles normal inspection, hearing grossly normal, nares patent, oropharynx clear without exudates. Moist mucosa NECK: Normal ROM, supple, no lymphadenopathy, JVD, or masses LUNGS: No distress, speaks full sentences, clear to auscultation bilaterally HEART: Regular rate and rhythm, normal S1 and S2, no murmurs, rubs or gallops, peripheral pulses normal and equal bilaterally. ABDOMEN: +Right CVA tenderness. Soft, normoactive bowel sounds. No guarding, no rebound. No masses EXTREMITIES: Normal inspection, Normal range of motion, no edema. No clubbing or cyanosis. NEUROLOGICAL: Cranial nerves II through XII grossly intact. Normal speech, normal gait, no focal sensorimotor deficits SKIN: Warm, Dry, normal turgor, no rashes or lesions noted. Moderate Sedation - Procedure Monitoring Vital Signs: Procedure Monitoring Vital Signs Temperature 98.6 F 07/17/18 13:12 Pulse Rate 100 H 07/17/18 13:12 Respiratory Rate 18 07/17/18 13:12 Blood Pressure 114/86 07/17/18 13:12 O2 Sat by Pulse Oximetry (%) 96 07/17/18 13:12 ED Treatment Course - LABORATORY CBC & Chemistry Diagram: 07/17/18 15:12 07/17/18 14:53 Medical Decision Making - Medical Decision Making 07/17/18 19:15 Ms. Cobb is a 48 yo female w/ pmh as described who presents for evaluation of R sided back pain in setting of recent c. diff diagnosis and continued diarrhea. Denies other concerning symptoms. Patient evaluated with labs as well as abdomen/pelvis CT w/out concerning findings. No UTI, no colitis, no other concerning symptoms. Patient pain controlled with morphine. Discharging to home for further outpatient follow-up w/ PCP. Suspect MSK etiology of pain. Laboratory Results - last 24 hr 07/17/18 07/17/18 07/17/18 14:53 15:12 15:12 WBC 10.7 H RBC 4.68 Hgb 13.8 Hct 41.4 MCV 88.5 MCH 29.4 MCHC 33.2 RDW 13.7 Plt Count 194 D MPV 9.2 Absolute Neuts (auto) 7.5 Neutrophils % 70.7 D Lymphocytes % 19.7 D Monocytes % 7.7 Eosinophils % 1.5 Basophils % 0.4 Nucleated RBC % 0 Sodium 137 Potassium 3.7 Chloride 103 Carbon Dioxide 25 Anion Gap 9 BUN 23 H Creatinine 0.9 Creat Clearance w eGFR > 60 Random Glucose 115 H Calcium 9.2 Total Bilirubin 0.5 AST 13 L ALT 30 Alkaline Phosphatase 68 Total Protein 7.4 Albumin 4.0 Urine Color Yellow Urine Appearance Clear Urine pH 6.0 Ur Specific [place] 1.027 Urine Protein Negative Urine Glucose (UA) Negative Urine Ketones Negative Urine Blood Negative Urine Nitrite Negative Urine Bilirubin Negative Urine Urobilinogen 2.0 H Ur Leukocyte Esterase Negative Urine HCG, Qual Negative *DC/Admit/Observation/Transfer Diagnosis at time of Disposition: Diarrhea Qualifiers: Diarrhea type: unspecified type Qualified Code(s): R19.7 - Diarrhea, unspecified Back pain Qualifiers: Back pain location: back pain in unspecified location Chronicity: unspecified Back pain laterality: unspecified Qualified Code(s): M54.9 - Dorsalgia, unspecified - Discharge Dispostion Disposition: HOME - Referrals Referrals: Doreen Kahn MD [Primary Care Provider] - - Patient Instructions Printed Discharge Instructions: DI for Diarrhea and Traveler's Diarrhea -- Adult Additional Instructions: You were evaluated today in the ER for your back pain. No concerning findings were found on labs or abdominal CT. We sent a stool culture regarding which you will be called if there are any concerning findings. Please follow-up with primary care provider later this week for further evaluation. Return to ER if any increase in pain, fever, chills, or other concerning symptoms. - Post Discharge Activity
--- NOTE | 2018-07-17 14:06 | PDOC ---
Attending Attestation - HPI HPI: 07/17/18 14:43 The patient is a 48 year old female, with a significant past medical history of kidney stones requiring lithotripsy (6 years ago, Dr. Hernandez and Dr. Brown), polysubstance abuse, diabetes, CHF, and DVT's (s/p IVC filter on AC, who presents to the emergency department with right flank pain, darker than normal urinem and a fever (Tmax 101F) yesterday. She states this feels like a kidney stone. The patient denies chest pain, shortness of breath, headache and dizziness. The patient denies chills, nausea, vomit, diarrhea and constipation. The patient denies dysuria, frequency, urgency and hematuria. Allergies: ondansetron PCP - Dr. Kahn - Medical Decision Making 07/17/18 14:46 Documentation prepared by Patricia Russ, acting as medical accounting clerk for Ashlyn Starkey MD <Patricia Russ - Last Filed: 07/17/18 14:47> - Resident Resident Name: Tre Palacios - ED Attending Attestation I have performed the following: I have examined & evaluated the patient, The case was reviewed & discussed with the resident, I agree w/resident's findings & plan, Exceptions are as noted - Physicial Exam PE: 07/19/18 07:52 Pt appears uncomfortable RRR CTA Left flank tenderness, left lower abdominal tenderness No guarding No rebound Ambulatory with a steady gait Neurologically in tact - Medical Decision Making 07/19/18 07:53 Laboratory Tests 07/17/18 07/17/18 07/17/18 14:53 15:12 15:12 WBC 10.7 H Hgb 13.8 Hct 41.4 Plt Count 194 D BUN 23 H Creatinine 0.9 Urine Blood Negative Urine Nitrite Negative Ur Leukocyte Esterase Negative Urine HCG, Qual Negative CT: stable ovarian cyst Lumbar degenerative changes Hepatic steatosis No acute changes Will discharge to home Follow up with PCP <Ashlyn Starkey - Last Filed: 07/19/18 07:53>
[2018-07-17] MEDS ORDERED: IBUPROFEN 400 MG TABLET (FP) PO ONE (14:10)
[2018-07-17] MEDS ORDERED: SODIUM CHLORIDE 1,000 ML IV STA (14:13)
[2018-07-17] MEDS ORDERED: IBUPROFEN 600 MG TABLET (FP) PO ONE (14:42)
[2018-07-17 15:27] LABS: BASO % 0.4 % (0-2.0); EOS % 1.5 % (0-4.5); HEMATOCRIT 41.4 % (32.4-45.2); HEMOGLOBIN 13.8 GM/dL (10.7-15.3); LYMPH % 19.7 % (8-40); MCH 29.4 pg (25.7-33.7); MCHC 33.2 g/dl (32.0-36.0); MEAN CELL VOLUME 88.5 fl (80-96); MEAN PLT VOLUME 9.2 fl (7.5-11.1); MONO % 7.7 % (3.8-10.2); NEUT % 70.7 % (42.8-82.8); PLATELET COUNT 194 K/MM3 (134-434); RBC 4.68 M/mm3 (3.60-5.2); RDW 13.7 % (11.6-15.6); WHITE BLOOD COUNT 10.7 K/mm3 (4.0-10.0)
[2018-07-17 15:30] LABS: HCG,QUALITATIVE URINE Negative
[2018-07-17 15:36] LABS: URINE APPEARANCE CLEAR; URINE BILIRUBIN NEGATIVE (<2.0 mg/dL); URINE COLOR YELLOW; URINE GLUCOSE (UA) NEGATIVE (NEGATIVE); URINE KETONE NEGATIVE (NEGATIVE); URINE LEUK ESTERASE NEGATIVE (NEGATIVE); URINE NITRITE NEGATIVE (NEGATIVE); URINE PROTEIN NEGATIVE (NEGATIVE)
[2018-07-17] MEDS ORDERED: ACETAMINOPHEN 1000 MG/100 ML VIAL (NON FORMULARY) IVPB ONE (15:44)
[2018-07-17] MEDS ORDERED: ACETAMINOPHEN INJECTION 100 ML IVPB ONE (15:49)
[2018-07-17 16:05] LABS: ALK PHOS 68 U/L (45-117); ANION GAP 9 MMOL/L (8-16); BILIRUBIN,TOTAL 0.5 mg/dL (0.2-1); BLOOD UREA NITROGEN 23 mg/dL (7-18); CALCIUM 9.2 mg/dL (8.5-10.1); CHLORIDE 103 mmol/L (98-107); CO2 25 mmol/L (21-32); CREATININE 0.9 mg/dL (0.55-1.3); GLUCOSE,RANDOM 115 mg/dL (74-106); POTASSIUM 3.7 mmol/L (3.5-5.1); SGOT/AST 13 U/L (15-37); SGPT/ALT 30 U/L (13-61); SODIUM 137 mmol/L (136-145); TOT PROT 7.4 g/dl (6.4-8.2)
[2018-07-17] MEDS ORDERED: morphine CARPU-JECT 4 MG/1 ML DISP.SYRIN IVPUSH ONE (17:29)
[2018-07-17] MEDS ORDERED: morphine SULFATE 4 MG/ML VIAL ONE (17:46)
[2018-07-17 19:32] VITALS: BP 128/63; PULSE 74; TEMP 98
== END 2018-07-17 19:33 | disposition home or self-care (01) ==
LOC: JER 13:01
PROC: 3E033NZ Introduction of Analgesics, Hypnotics, Sedatives into Peripheral Vein, Percutaneous Approach (ICD-10-PCS; principal; 2018-07-17)
PROC: 3E0337Z Introduction of Electrolytic and Water Balance Substance into Peripheral Vein, Percutaneous Approach (ICD-10-PCS; 2018-07-17)
DX: R19.7 Diarrhea, unspecified (principal); M54.9 Dorsalgia, unspecified
CPT/HCPCS: 36415; 74177-TC; 80053; 81003; 84703; 85025; 87045; 87046; 87086; 87186; 99283-25; J0131; J7030

== ENCOUNTER 2018-08-04 15:34 | Inpatient (IN) | payer OTHER ==
[2018-08-04] MEDS ORDERED: NALOXONE HCL 0.4 MG/ML VIAL IVPUSH ONE ×2 (15:41→15:48)
[2018-08-04] MEDS ORDERED: SODIUM CHLORIDE 0.9% 500 ML INFUS.BAG IV ONE (15:42)
--- NOTE | 2018-08-04 15:44 | PDOC ---
History of Present Illness - General Chief Complaint: Lethargy Stated Complaint: SICK Time Seen by Provider: 08/04/18 15:38 History Source: Patient, EMS Exam Limitations: No Limitations - History of Present Illness Initial Comments: 08/04/18 15:39 [id number] with h/o HTN who p/w somnolence and hypotension in the setting of recent febrile illness. BIBEMS this afternoon and patient had stated she accidentally took 40 mg of labetalol last night instead of her normal 20 mg. She explains that she started feeling more drowsy last night and was going to come into the ED at that time but she was too tired. She additionally notes diarrhea ("too many to count") and diffuse abdominal discomfort. Has not taken any antibiotics recently, no questionable foods eaten lately, no camping. Patient states she was treated for c diff a month ago, no longer on antibiotics. Past History - Past Medical History Allergies/Adverse Reactions: Allergies Allergy/AdvReac Type Severity Reaction Status Date / Time ondansetron [From Zofran] AdvReac Severe Verified 08/04/18 15:36 Home Medications: Ambulatory Orders Pregabalin [Lyrica] 100 mg PO TID 10/02/16 Vitamin A & D Top Oint - 1 applic TP Q6HPO tube 08/24/17 Enoxaparin [Lovenox -] 120 mg SQ BID #60 disp.syrin 11/28/17 Zolpidem Tartrate [Ambien] 10 mg PO HS 01/23/18 traZODone HCL [Desyrel -] 100 mg PO HS 02/13/18 Escitalopram Oxalate [Lexapro -] 5 mg PO DAILY #14 tablet 05/17/18 Quetiapine Fumarate [Seroquel -] 50 mg PO HS #30 tablet 05/17/18 Labetalol HCl [Normodyne -] 400 mg PO BID #120 tablet 06/19/18 Lisinopril 20 mg PO DAILY #30 tablet 06/21/18 Sitagliptin Phos/Metformin HCl [Janumet Xr 50-500 mg Tablet] 1 each PO DAILY # 30 tbmp.24hr 06/21/18 Buprenorphine/Naloxone [Suboxone 2Mg/0.5MG Sl Film -] 1 combo SL DAILY #7 packet MDD 1 06/26/18 Naloxone HCl [Narcan] 4 mg NS ONCE #1 spray 06/26/18 Anemia: No Asthma: No Cancer: No Cardiac Disorders: No CVA: No COPD: No CHF: No DVT: Yes Dementia: No Diabetes: Yes (type 2) Dialysis: No ([facility] 2016.) GI Disorders: Yes (diarrhea) Disorders: Yes (bladder prolapse 2011) HTN: Yes Hypercholesterolemia: No Kidney Stones: Yes Liver Disease: No Psychiatric Problems: Yes (anxiety depression) Seizures: No Thyroid Disease: No - Surgical History Abdominal Surgery: Yes Appendectomy: No Cardiac Surgery: No Cholecystectomy: Yes (2003) Lung Surgery: No Neurologic Surgery: No Orthopedic Surgery: No - Immunization History Td Vaccination: Yes Immunization Up to Date: Yes - Suicide/Smoking/Psychosocial Hx Smoking Status: No Smoking History: Never smoked Have you smoked in the past 12 months: Yes Number of Cigarettes Smoked Daily: 5 Cigars Per Day: 0 'Breaking Loose' booklet given: 03/02/17 Hx Alcohol Use: No Drug/Substance Use Hx: No Substance Use Type: Cocaine, Marijuana, Opiates Hx Substance Use Treatment: Yes (suboxone maintenance 16mg daily /New Focus) Review of Systems - Review of Systems Able to Perform ROS?: Yes Comments:: GEN: fever, chills, malaise, generalized weakness, tiredness, no or weight change HEENT: no ear pain, sore throat, vision change, or eye pain CV: no chest pain, palpitations, lightheadedness, syncope, or edema RESP: no cough, wheezing, or SOB GI: abdominal discomfort, diarrhea, no nausea, vomiting, constipation, or white/ black/bloody stool : no dysuria, hematuria, incontinence, retention, bleeding, or discharge MSK: no neck/back pain, muscle weakness/pain, or joint swelling/pain NEURO: no headache, seizure, vertigo, numbness, tingling, or focal weakness PSYCH: substance use (heroin 3 days ago IV), no behavior change SKIN: no jaundice, no rash ROS otherwise negative except as noted in HPI *Physical Exam - Vital Signs 08/04/18 15:57 Initial Vital Signs Temp Pulse Resp BP Pulse Ox 98 F 76 18 63/35 L 91 L 08/04/18 15:37 08/04/18 15:37 08/04/18 15:37 08/04/18 15:37 08/04/18 15:37 - Physical Exam Comments: GENERAL: pale, morbidly obese, initially very somnolent but always arousable to voice, when awakens she is A/Ox4, mild distress, appears uncomfortable, answers questions appropriately HEENT: PERRLA, EOMI, a bit dry mucous membranes NECK/BACK: no midline ttp, no spinal stepoff or deformity, no hematoma, full ROM , neck supple CARDIOVASCULAR: regular rate/rhythm, normal S1S2, no MGR, thready peripheral pulses, capillary refill 3 seconds, extremities wwp, no edema LUNGS/RESPIRATORY: no respiratory distress, CTAB GI/ABDOMEN: obese, symmetric [id number], normoactive BS, soft, mild epigastric ttp, no midline pulsatile masses : no CVA tenderness EXTREMITIES: no muscle atrophy, no acute deformity, scattered excoriations BLE SKIN: warm and dry, no pallor, no jaundice, no rash, no bruising, no skin breakdown, no cuts, no lesions NEUROLOGICAL: GCS 15, CN II-XII grossly intact, 5/5 strength proximally and distally, no facial droop Heart Score/ECG Review #1 08/04/18 15:40 NSR rate 76, normal axis, prolonged QTc 513 ms, no ischemic ST-T changed ED Treatment Course - LABORATORY CBC & Chemistry Diagram: 08/05/18 05:50 08/05/18 19:05 Medical Decision Making - Medical Decision Making 08/04/18 16:21 Adult patient with h/o HTN (on labetalol) p/w hypotension in the setting of recent diarrheal illness. No recent abx, travel, camping, drinking from streams, bloody/black/white stool. Initial Vital Signs Temp Pulse Resp BP Pulse Ox 98 F 76 18 63/35 L 91 L 08/04/18 15:37 08/04/18 15:37 08/04/18 15:37 08/04/18 15:37 08/04/18 15:37 Exam: Results as noted in Physical Exam section. DDX IBNLT: diarrhea from increased secretion (infectious; MC is viral with norovirus MC cause for adults and rotavirus MC cause for pediatrics), decreased absorption, increased osmotic load (e.g. laxatives, colchicine), abnormal motility (e.g. IBS, neuropathy). Possible that the extra 20 mg labetalol last night contributed to her hypotension but this is unlikely the only cause. W/U ordered: Sepsis workup TX ordered: IVF, Narcan EKG: Reviewed; results as noted in ECG Review section. 08/04/18 16:24 No blood return for lab draw, likely 2/2 hypotension. IVF bolus running and will re-attempt lab draw. 08/04/18 16:54 Patient is more awake and alert now; canceling Narcan order. Laboratory Tests 08/04/18 08/04/18 08/04/18 15:41 16:57 16:57 WBC 16.0 H RBC 4.65 Hgb 13.9 Hct 41.0 MCV 88.2 MCH 30.0 MCHC 34.0 RDW 14.9 Plt Count 277 D MPV 8.5 Absolute Neuts (auto) 13.3 H Neutrophils % 83.4 H Lymphocytes % 7.1 L D Monocytes % 8.8 Eosinophils % 0.1 D Basophils % 0.6 Nucleated RBC % 0 PT with INR 12.40 INR 1.05 PTT (Actin FS) 23.0 L Sodium Potassium Chloride Carbon Dioxide Anion Gap BUN Creatinine Creat Clearance w eGFR POC Glucometer [id number] Random Glucose Lactic Acid Calcium Total Bilirubin AST ALT Alkaline Phosphatase Creatine Kinase CK-MB (CK-2) Troponin I Total Protein Albumin 08/04/18 08/04/18 08/04/18 16:57 16:57 16:57 WBC RBC Hgb Hct MCV MCH MCHC RDW Plt Count MPV Absolute Neuts (auto) Neutrophils % Lymphocytes % Monocytes % Eosinophils % Basophils % Nucleated RBC % PT with INR INR PTT (Actin FS) Sodium 138 Potassium 3.6 Chloride 98 Carbon Dioxide 27 Anion Gap 14 BUN 48 H Creatinine 3.8 H Creat Clearance w eGFR 12.79 POC Glucometer Random Glucose 208 H Lactic Acid 2.6 H* Calcium 9.3 Total Bilirubin 0.8 AST 45 H ALT 27 Alkaline Phosphatase 64 Creatine Kinase 22 L CK-MB (CK-2) < 1.0 Troponin I < 0.02 Cancelled Total Protein 7.0 Albumin 3.8 Vital Signs Temperature 98 F 08/04/18 15:37 Pulse Rate 72 08/04/18 17:40 Respiratory Rate 16 08/04/18 17:40 Blood Pressure 112/52 L 08/04/18 17:40 O2 Sat by Pulse Oximetry (%) 98 08/04/18 17:40 Blood pressure much improved after 2 liters IVF. 08/04/18 18:04 Patient has had many bowel movement in bedpan since arrival, mixed with urine. She has been unable to give a clean urine sample; straight cath order has been placed. Patient noting acid reflux; IV pepcid ordered. Orders for vancomycin and Zosyn placed, source of infection unknown, she is getting the Zosyn now. Reassessment: patient vomiting liquid, also had another episode of diarrhea in bed. Collected the salvageable portion of sample to send for c. diff culture. Will await another BM to collect for the 2 remaining tubes in the 3-tube set. I have placed an order for 1 mg Ativan as the patient's QTc is prolonged; cannot get Zofran. Will recheck BP before Ativan administration. Attempted to straight cath twice and there is no urine return. 08/04/18 19:02 Patient's care endorsed to [facility] team resident pending UA, CT, admission. *DC/Admit/Observation/Transfer Diagnosis at time of Disposition: SIRS (systemic inflammatory response syndrome) Diarrhea Qualifiers: Diarrhea type: unspecified type Qualified Code(s): R19.7 - Diarrhea, unspecified Hypotension Qualifiers: Hypotension type: unspecified hypotension type Qualified Code(s): I95.9 - Hypotension, unspecified - Discharge Dispostion Condition at time of disposition: Guarded - Referrals - Patient Instructions - Post Discharge Activity
[2018-08-04] MEDS ORDERED: ACETAMINOPHEN 1000 MG/100 ML VIAL (NON FORMULARY) IVPB ONE (16:07)
[2018-08-04 17:12] LABS: BASO % 0.6 % (0-2.0); EOS % 0.1 % (0-4.5); HEMOGLOBIN 13.9 GM/dL (10.7-15.3); LYMPH % 7.1 % (8-40); MEAN CELL VOLUME 88.2 fl (80-96); MEAN PLT VOLUME 8.5 fl (7.5-11.1); MONO % 8.8 % (3.8-10.2); NEUT % 83.4 % (42.8-82.8); PLATELET COUNT 277 K/MM3 (134-434); RBC 4.65 M/mm3 (3.60-5.2); RDW 14.9 % (11.6-15.6)
[2018-08-04 17:27] LABS: INR 1.05 (0.83-1.09); PROTHROMBIN TIME (PATIENT) 12.4 SEC (9.7-13.0)
--- NOTE | 2018-08-04 17:33 | PDOC ---
Attending Attestation - Resident Resident Name: Anusha Arroyo - ED Attending Attestation I have performed the following: I have examined & evaluated the patient, The case was reviewed & discussed with the resident, I agree w/resident's findings & plan, Exceptions are as noted - HPI HPI: 08/04/18 17:25 The patient is a 48 year old female, with a past medical history of HTN ( intermittent compliance due to insurance complications), kidney stones requiring lithotripsy (6 years ago, Dr. Hernandez and Dr. Brown), polysubstance abuse, diabetes, CHF, and DVT's (s/p IVC filter on AC), who presents to the emergency department with hypotension and somnolence. As per EMS and patient, she accidentally doubled her dosage of Labetalol (20mg x2) because she forgot that she had taken her medication last night. She endorses using heroin 3 days ago and approximately 4 days ago (08/01) she had a fever Tmax 101.7F. As per EMS , her blood glucose level was 244, her lowest blood pressure was 60/40 and highest was 72/50 (manual cuff, tested both arms). Pt denies taking any labetalol today. Pt endorses multiple episodes of diarrhea. Denies any significant abdominal pain. She denies any recent antibiotic usage, abnormal food intake, or recent travel. She denies recent dysuria, frequency, urgency or hematuria. She denies recent chest pain or shortness of breath. Allergies: ondansetron Primary Care Physician - Dr. Kahn - Physicial Exam PE: 08/04/18 17:27 GENERAL: Somnolent, fully oriented, in no acute distress. HEAD: No signs of trauma EYES: PERRLA, EOMI, sclera anicteric, conjunctiva clear ENT: Auricles normal inspection, hearing grossly normal, nares patent, oropharynx clear without exudates. Moist mucosa NECK: Nontender, no stepoffs, Normal ROM, supple, no lymphadenopathy, JVD, or masses LUNGS: Breath sounds equal, clear to auscultation bilaterally. No wheezes, and no crackles HEART: Regular rate and rhythm, normal S1 and S2, no murmurs, rubs or gallops ABDOMEN: Soft, nontender, normoactive bowel sounds. No guarding, no rebound. No masses EXTREMITIES: Normal range of motion, no edema. No clubbing or cyanosis. No cords, erythema, or tenderness NEUROLOGICAL: Cranial nerves II through XII intact. 5/5 strength and sensation in all extremities, Normal speech, normal gait, normal cerebellar function SKIN: Warm, Dry, normal turgor, no rashes or lesions noted. - Critical Care Time Total Critical Care Time: 60 Critical Care Statement: The care of this patient involved high complexity decision making to prevent further life threatening deterioration of the patient 's condition and/or to evaluate & treat vital organ system(s) failure or risk of failure. - Medical Decision Making 08/04/18 17:33 48 F with lethargy, hypotension, and recent fevers. Will need to r/o sepsis. Pt also clinically appears intoxicated, suspect opiate abuse. However, pt is protecting airway, no need for narcan at this time. - Labs, cultures - CXR, UA - IVF, abx - Admit
[2018-08-04 17:42] LABS: ALBUMIN 3.8 g/dl (3.4-5.0); ALK PHOS 64 U/L (45-117); ANION GAP 14 MMOL/L (8-16); BILIRUBIN,TOTAL 0.8 mg/dL (0.2-1); BLOOD UREA NITROGEN 48 mg/dL (7-18); CALCIUM 9.3 mg/dL (8.5-10.1); CHLORIDE 98 mmol/L (98-107); CO2 27 mmol/L (21-32); CREATININE 3.8 mg/dL (0.55-1.3); GLUCOSE,RANDOM 208 mg/dL (74-106); POTASSIUM 3.6 mmol/L (3.5-5.1); SGOT/AST 45 U/L (15-37); SGPT/ALT 27 U/L (13-61); SODIUM 138 mmol/L (136-145)
[2018-08-04] MEDS ORDERED: PIPERACILLIN/TAZOB 4.5 GM 4.5 GM in DEXTROSE 5%-WATER 100 ML IVPB ONE (17:46)
[2018-08-04] MEDS ORDERED: VANCOMYCIN HCL 1,500 MG in DEXTROSE 5%-WATER - 500 ML IVPB ONE (17:47)
[2018-08-04] MEDS ORDERED: ACETAMINOPHEN INJECTION 100 ML IVPB ONE (17:48)
[2018-08-04] MEDS ORDERED: PIPERACILLIN/TAZOB 4.5 GM 4.5 GM/100 ML BAG IVPB ONE (17:51)
[2018-08-04] MEDS ORDERED: FAMOTIDINE 20 MG/50 ML IVPB 20 MG/50 ML MG IVPB ONE ×2 (18:04→19:04)
[2018-08-04] MEDS ORDERED: ONDANSETRON 4 MG/2 ML VIAL ONE (18:51)
[2018-08-04] MEDS ORDERED: LORazepam 2 MG/ML SDV VIAL ONE (19:04)
--- NOTE | 2018-08-04 19:41 | PDOC ---
*Physical Exam - Vital Signs Last Vital Signs Temp Pulse Resp BP Pulse Ox 98 F 72 16 112/52 L 98 08/04/18 15:37 08/04/18 17:40 08/04/18 17:40 08/04/18 17:40 08/04/18 17:40 - Physical Exam General Appearance: Yes: Nourished, Obese HEENT: positive: Normal Voice, Hearing Grossly Normal Neck: positive: Trachea midline, Supple Gastrointestinal/Abdominal: positive: Normal Bowel Sounds, Soft. negative: Guarding, Rebound, Tenderness, Hernia, Mass Extremity: positive: Normal Capillary Refill, Normal Inspection Integumentary: positive: Normal Color, Dry, Warm Neurologic: positive: Fully Oriented, Alert ED Treatment Course - LABORATORY CBC & Chemistry Diagram: 08/04/18 16:57 08/04/18 16:57 - ADDITIONAL ORDERS Additional order review: Laboratory Results 08/04/18 08/04/18 08/04/18 16:57 16:57 16:57 PT with INR INR PTT (Actin FS) Sodium 138 Potassium 3.6 Chloride 98 Carbon Dioxide 27 Anion Gap 14 BUN 48 H Creatinine 3.8 H Creat Clearance w eGFR 12.79 POC Glucometer Random Glucose 208 H Lactic Acid 2.6 H* Calcium 9.3 Total Bilirubin 0.8 AST 45 H ALT 27 Alkaline Phosphatase 64 Creatine Kinase 22 L CK-MB (CK-2) < 1.0 Troponin I Cancelled < 0.02 Total Protein 7.0 Albumin 3.8 08/04/18 08/04/18 16:57 15:41 PT with INR 12.40 INR 1.05 PTT (Actin FS) 23.0 L Sodium Potassium Chloride Carbon Dioxide Anion Gap BUN Creatinine Creat Clearance w eGFR POC Glucometer 208.93539 Random Glucose Lactic Acid Calcium Total Bilirubin AST ALT Alkaline Phosphatase Creatine Kinase CK-MB (CK-2) Troponin I Total Protein Albumin 08/04/18 08/04/18 16:57 15:41 RBC 4.65 MCV 88.2 MCHC 34.0 RDW 14.9 MPV 8.5 Neutrophils % 83.4 H Lymphocytes % 7.1 L D Monocytes % 8.8 Eosinophils % 0.1 D Basophils % 0.6 POC Glucometer [phone] - Medications Given in the ED: ED Medications Discontinued Medications Generic Name Dose Route Start Last Admin Trade Name Freq PRN Reason Stop Dose Admin Acetaminophen 1,000 mg 08/04/18 16:07 08/04/18 17:47 Ofirmev Injection - IVPB 08/04/18 16:08 1,000 mg ONCE ONE Administration Piperacillin Sod/Tazobactam 100 mls @ 200 mls/hr 08/04/18 17:46 08/04/18 17: 56 Sod 4.5 gm/ Dextrose IVPB 08/04/18 18:15 200 mls/hr ONCE ONE Administration Protocol Naloxone HCl 0.2 mg 08/04/18 15:41 08/04/18 17:32 Narcan - IVPUSH 08/04/18 15:42 Not Given ONCE ONE Naloxone HCl 0.04 mg 08/04/18 15:48 08/04/18 17:33 Narcan - IVPUSH 08/04/18 15:49 Not Given ONCE ONE Sodium Chloride 1,000 ml 08/04/18 15:42 08/04/18 16:29 Normal Saline - IV 08/04/18 15:43 1,000 ml ONCE ONE Administration Medical Decision Making - Medical Decision Making 08/04/18 19:38 Patient signed out by Dr. Arroyo (Resident) under the care of Dr. Easley (Attending) 48 year old female with MMP including HTN, Nephrolithiasis, DM, Polysubstance abuse, CHF, DVTs (s/p IVC filter, on A/C) presented to ED following unintentional Labetalol overdose. H/o recent heroin use and fever (Tmax 101). At presentation, patient hypotensive (60's/30's). S/p IV NS x3. Straight cath w/o any urine return. CT to evaluate for colitis as patient actively vomiting/diarrhea in ED and h/o recent admission for C. Diff At time of signout , patient @ CT- pending serum . 08/04/18 20:15 Serum negative Spoke w/CT scan - patient to receive CT scan 08/04/18 21:41 CT shows hepatomegaly, L adrenal nodule, no hydronephrosis, no obstructing renal caluli, no colitis, 3.3 cm cyst in L ovary; no interval change since previous CT on 07/17/18 Given benign/no acute change in CT scan suspect patient's SiSx 2/2 to heroin withdrawal. 08/04/18 21:52 Patient reassessed @ bedside VSS (BP 100/57, HR 78, SpO2 97% on RA Patient now c/o diffuse abdominal pain - requests Dilaudid as Morphine makes her itch Belly soft, non-tender, (+) bowel sounds 08/04/18 22:01 Case d/w Dr. Estrada (Resident) - will admit patient for observation Clinical Impression: N/V, abdominal pain possibly 2/2 to heroin withdrawal *DC/Admit/Observation/Transfer Diagnosis at time of Disposition: SIRS (systemic inflammatory response syndrome) Diarrhea Qualifiers: Diarrhea type: unspecified type Qualified Code(s): R19.7 - Diarrhea, unspecified Hypotension Qualifiers: Hypotension type: unspecified hypotension type Qualified Code(s): I95.9 - Hypotension, unspecified - Discharge Dispostion Condition at time of disposition: Guarded - Referrals - Patient Instructions - Post Discharge Activity
[2018-08-04] MEDS ORDERED: FAMOTIDINE 20 MG/50 ML IVPB 20 MG/50 ML MG IVPB PRN (23:13)
[2018-08-04] MEDS ORDERED: TRIMETHOBENZAMIDE HCL 200MG/2ML INJ IM PRN (23:14)
--- NOTE | 2018-08-04 23:14 | HP ---
CHIEF COMPLAINT: nausea, vomiting, diarrhea x 3 days PCP: HISTORY OF PRESENT ILLNESS: 48 y/o F with PMH polysubstance abuse (on suboxone previously), DM, HTN, CHF, DVT (s/p IVC filter 2014, on lovenox), recent dx c.diff was tx with vanco 125mg [id number] , anxiety, depression who presents to the ED c/o abdominal pain, N/V for the past three days. States that she used one bag of heroin three days ago. She subsequently developed generalized abdominal discomfort, as well as multiple episodes of yellow-brown loose BM (without blood), as well as multiple episodes of NBNB emesis. When pt was brought to the ED, she also was hypotensive (to 60/30's) - states that she took double her normal dose of labetalol accidentally. During this time, also c/o subjective fever, chills, and generalized myalgias. Denies recent sick contacts, RO, SOB, chest pain or pressure, or changes in urinary function. Of note, pt's insurance ran out approx a month ago d/t missed appointment with child support, so she has been unable to receive most of her medications. Including her lovenox. States that she had left over "BP and diabetes" medications, so she has "stretched out their use." ER course was notable for: (1) BP 60/30's > improved to 100/60 (2) 3x NS (3) pepcid, tylenol, ativan x 1 Recent Travel: denies PAST MEDICAL HISTORY: as above PAST SURGICAL HISTORY: lap bernadine, prolapsed bladder, R ankle repair Social History: Smokin pack per week for 20+ years Alcohol: denies Drugs: last used heroin 1bag- 3 days ago. uses marijuana daily d/t "anxiety" Family History: mother-ovarian [place] Allergies ondansetron [From Zofran] Adverse Reaction (Severe, Verified 08/04/18 15:36) prolonged qt interval HOME MEDICATIONS: Home Medications Medication Instructions Recorded Pregabalin [Lyrica] 100 mg PO TID 10/02/16 Vitamin A & D Top Oint - 1 applic TP Q6HPO tube 08/24/17 Enoxaparin [Lovenox -] 120 mg SQ BID #60 disp.syrin 11/28/17 Zolpidem Tartrate [Ambien] 10 mg PO HS 01/23/18 traZODone HCL [Desyrel -] 100 mg PO HS 02/13/18 Escitalopram Oxalate [Lexapro -] 5 mg PO DAILY #14 tablet 05/17/18 Quetiapine Fumarate [Seroquel -] 50 mg PO HS #30 tablet 05/17/18 Labetalol HCl [Normodyne -] 400 mg PO BID #120 tablet 06/19/18 Lisinopril 20 mg PO DAILY #30 tablet 06/21/18 Sitagliptin Phos/Metformin HCl 1 each PO DAILY #30 tbmp.24hr 06/21/18 [Janumet Xr 50-500 mg Tablet] Buprenorphine/Naloxone [Suboxone 1 combo SL DAILY #7 packet MDD 1 06/26/18 2Mg/0.5MG Sl Film -] Naloxone HCl [Narcan] 4 mg NS ONCE #1 spray 06/26/18 pt states that medications are "same as last time she was here" however has not been able to take her meds x 1 month d/t issues with her insurance from child support REVIEW OF SYSTEMS CONSTITUTIONAL: Absent: fever, chills, diaphoresis, generalized weakness, malaise, loss of appetite, weight change HEENT: Absent: rhinorrhea, nasal congestion, throat pain, throat swelling, difficulty swallowing, mouth swelling, ear pain, eye pain, visual changes CARDIOVASCULAR: Absent: chest pain, syncope, palpitations, irregular heart rate, lightheadedness , peripheral edema RESPIRATORY: Absent: cough, shortness of breath, dyspnea with exertion, orthopnea, wheezing, stridor, hemoptysis GASTROINTESTINAL: +abdominal pain, nausea, vomiting, diarrhea Absent: constipation, melena, hematochezia GENITOURINARY: Absent: dysuria, frequency, urgency, hesitancy, hematuria, flank pain, genital pain MUSCULOSKELETAL: +myalgias Absent: arthralgia, joint swelling, back pain, neck pain SKIN: Absent: rash, itching, pallor HEMATOLOGIC/IMMUNOLOGIC: Absent: easy bleeding, easy bruising, lymphadenopathy, frequent infections ENDOCRINE: Absent: unexplained weight gain, unexplained weight loss, heat intolerance, cold intolerance NEUROLOGIC: Absent: headache, focal weakness or paresthesias, dizziness, unsteady gait, seizure, mental status changes, bladder or bowel incontinence PSYCHIATRIC: Absent: anxiety, depression, suicidal or homicidal ideation, hallucinations. PHYSICAL EXAMINATION Vital Signs - 24 hr 08/04/18 08/04/18 15:37 17:40 Temperature 98 F Pulse Rate 76 Pulse Rate [ 72 Apical] Respiratory 18 16 Rate Blood Pressure 63/35 L Blood Pressure 112/52 L [Left Arm] O2 Sat by Pulse 91 L 98 Oximetry (%) GENERAL: Lying in bed, in no acute distress. HEAD: Normal with no signs of trauma. EYES: Pupils equal, round and reactive to light, extraocular movements intact, sclera anicteric, conjunctiva clear. EARS, NOSE, THROAT: Ears normal, nares patent, oropharynx clear without exudates. Dry mucous membranes NECK: Normal range of motion, supple LUNGS: Breath sounds equal, clear to auscultation bilaterally. No wheezes, and no crackles. No accessory muscle use. HEART: Regular rate and rhythm, normal S1 and S2 without murmur, rub or gallop. ABDOMEN: Soft, obese, diffusely tender to palpation, hyperactive bowel sounds, no guarding or rebound LOWER EXTREMITIES: 2+ pt pulses, warm, well-perfused. +scratch goel, ulcerations. +L big toe: ulceration, foul-smelling . NEUROLOGICAL: Cranial nerves II-XII intact. 5/5 motor strength in UE and LE. sensation intact PSYCHIATRIC: Cooperative. Good eye contact. SKIN: Warm, dry, normal turgor Laboratory Results 08/04/18 08/04/18 08/04/18 16:57 16:57 16:57 WBC 16.0 H Hgb 13.9 Hct 41.0 Plt Count 277 D Sodium 138 Potassium 3.6 Chloride 98 Carbon Dioxide 27 BUN 48 H Creatinine 3.8 H Lactic Acid 2.6 H* AST 45 H ALT 27 Creatine Kinase 22 L Troponin I < 0.02 Influenza A (Rapid) Influenza B (Rapid) 08/04/18 22:03 Troponin I Influenza A (Rapid) Negative Influenza B (Rapid) Negative EKG: NSR 76bpm, Qtc 513ms as per ED CTAP: as per ED, (-). follow official read CXR: similar to prior, without acute path. f/u official read ASSESSMENT/PLAN: 48 y/o F with PMH polysubstance abuse, DM, HTN, CHF, DVT (s/p IVC filter 2014, on lovenox), recent dx c.diff was tx with vanco, anxiety, depression, who presents to the ED c/o abdominal pain, N/V for the past three days. #nausea/vomiting likely 2/2 opiate withdrawal, cyclic vomiting, recurrent c.diff or 2/2 ANASTASIA -may be 2/2 opiate withdrawal as last use 3 days prior. COWS score 9 - mild withdrawal- supportive care -also possible 2/2 cyclic vomiting as with daily marijuana use, or an acute rise in Cr is exacerbating sx. -recently tx for c diff, however f/u repeat c.diff testing -will give IVF and follow renal fnc -tigan 200mg IM q8h PRN for nausea ; does not prolong Qtc confirmed with pharmacy. -famotidine PRN in case of dyspepsia/gastritis. no PPI for now as recent hx c.diff -initial lactic likely 2/2 N/V. now WNL #DM -hold home agents -ISS, BGM ACHS #HTN -with recent hypotension 2/2 labetalol overdose -hold anti-HTN for now (lisinopril, labetalol) #ANASTASIA possible 2/2 pre-renal, N/V -IVF NS 100 cc/hr -cont to trend -hold lisinopril -f/u renal sono #L great toe ulceration -vascular consult : Dr. Knox -podiatry consult: Dr. yL -s/p [email or web address] . will not cont abx at this time leukocytosis likely reactive 2/2 N/V, less likely 2/2 toe ulceration. #Anxiety/ Depression -Will hold seroquel, trazodone - with prolonged Qtc (513) -ordered repeat EKG for AM. follow daily #DVT (s/p IVC filter 2014) -c/w lovenox #F/E/N IV NS 100 cc/hr continue to follow lytes NPO, can advance as tolerated #PPX DVT: lovenox #Dispo med-surg obs Visit type - Emergency Visit Emergency Visit: Yes ED Registration Date: 08/04/18 Care time: The patient presented to the Emergency Department on the above date and was hospitalized for further evaluation of their emergent condition. - New Patient This patient is new to me today: Yes Date on this admission: 08/05/18 - Critical Care Critical Care patient: No
--- NOTE | 2018-08-04 23:14 | PN ---
Teaching Attending Note Name of Resident: Pilar Estrada ATTENDING PHYSICIAN STATEMENT I saw and evaluated the patient. I reviewed the resident's note and discussed the case with the resident. I agree with the resident's findings and plan as documented. SUBJECTIVE: This is a 48 year old woman with a history of polysubstance abuse, type 2 DM, HTN, DVT, PE, IVC filter, anxiety, depression who comes to the ED complaining of abdominal pain, nausea, vomiting, and diarrhea for 3 days. Her bowel movements have been watery and yellow. Abdominal pain is diffuse. She reports having fevers, chills, and body aches. This morning, she accidentally took 4 Labetalol 200 mg tabs. She was admitted 06/16-06/21 with C. diff colitis for which she was treated with Vancomycin 125 mg PO x 10 days. OBJECTIVE: Vital Signs Period Temp Pulse Resp BP Sys/Puente Pulse Ox Last 24 Hr 98 F 72-76 16-18 63-112/35-52 91-98 HEART: S1S2, RRR LUNGS: Felipa ABDOMEN: Obese, soft, (+) diffuse tenderness, non-distended, normal BS EXTREMITIES: No edema. Ulcer of medial/plantar surface of left 1st toe with no drainage Laboratory Tests 08/04/18 08/04/18 08/04/18 15:41 16:57 16:57 WBC 16.0 H RBC 4.65 Hgb 13.9 Hct 41.0 MCV 88.2 MCH 30.0 MCHC 34.0 RDW 14.9 Plt Count 277 D MPV 8.5 Absolute Neuts (auto) 13.3 H Neutrophils % 83.4 H Lymphocytes % 7.1 L D Monocytes % 8.8 Eosinophils % 0.1 D Basophils % 0.6 Nucleated RBC % 0 PT with INR 12.40 INR 1.05 PTT (Actin FS) 23.0 L Sodium Potassium Chloride Carbon Dioxide Anion Gap BUN Creatinine Creat Clearance w eGFR POC Glucometer 208.11935 Random Glucose Lactic Acid Calcium Total Bilirubin AST ALT Alkaline Phosphatase Creatine Kinase CK-MB (CK-2) Troponin I Total Protein Albumin Serum , Qual Influenza A (Rapid) Influenza B (Rapid) 08/04/18 08/04/18 08/04/18 16:57 16:57 16:57 WBC RBC Hgb Hct MCV MCH MCHC RDW Plt Count MPV Absolute Neuts (auto) Neutrophils % Lymphocytes % Monocytes % Eosinophils % Basophils % Nucleated RBC % PT with INR INR PTT (Actin FS) Sodium 138 Potassium 3.6 Chloride 98 Carbon Dioxide 27 Anion Gap 14 BUN 48 H Creatinine 3.8 H Creat Clearance w eGFR 12.79 POC Glucometer Random Glucose 208 H Lactic Acid 2.6 H* Calcium 9.3 Total Bilirubin 0.8 AST 45 H ALT 27 Alkaline Phosphatase 64 Creatine Kinase 22 L CK-MB (CK-2) < 1.0 Troponin I < 0.02 Cancelled Total Protein 7.0 Albumin 3.8 Serum , Qual Influenza A (Rapid) Influenza B (Rapid) 08/04/18 08/04/18 19:37 22:03 WBC RBC Hgb Hct MCV MCH MCHC RDW Plt Count MPV Absolute Neuts (auto) Neutrophils % Lymphocytes % Monocytes % Eosinophils % Basophils % Nucleated RBC % PT with INR INR PTT (Actin FS) Sodium Potassium Chloride Carbon Dioxide Anion Gap BUN Creatinine Creat Clearance w eGFR POC Glucometer Random Glucose Lactic Acid Calcium Total Bilirubin AST ALT Alkaline Phosphatase Creatine Kinase CK-MB (CK-2) Troponin I Total Protein Albumin Serum , Qual Negative Influenza A (Rapid) Negative Influenza B (Rapid) Negative Home Medications Medication Instructions Recorded Pregabalin [Lyrica] 100 mg PO TID 10/02/16 Vitamin A & D Top Oint - 1 applic TP Q6HPO tube 08/24/17 Enoxaparin [Lovenox -] 120 mg SQ BID #60 disp.syrin 11/28/17 Zolpidem Tartrate [Ambien] 10 mg PO HS 01/23/18 traZODone HCL [Desyrel -] 100 mg PO HS 02/13/18 Escitalopram Oxalate [Lexapro -] 5 mg PO DAILY #14 tablet 05/17/18 Quetiapine Fumarate [Seroquel -] 50 mg PO HS #30 tablet 05/17/18 Labetalol HCl [Normodyne -] 400 mg PO BID #120 tablet 06/19/18 Lisinopril 20 mg PO DAILY #30 tablet 06/21/18 Sitagliptin Phos/Metformin HCl 1 each PO DAILY #30 tbmp.24hr 06/21/18 [Janumet Xr 50-500 mg Tablet] Buprenorphine/Naloxone [Suboxone 1 combo SL DAILY #7 packet MDD 1 06/26/18 2Mg/0.5MG Sl Film -] Naloxone HCl [Narcan] 4 mg NS ONCE #1 spray 06/26/18 ASSESSMENT AND PLAN: This is a 48 year old woman with a history of polysubstance abuse, type 2 DM, HTN, DVT, PE, IVC filter, anxiety, depression who presented to the ED with abdominal pain, nausea, vomiting, diarrhea. 1. Acute kidney injury, lactic acidosis, hypotension secondary to dehydration/ hypovolemia - IV fluid - Hold lisinopril, metformin - Check UA - Renal US - Recheck lactic acid - Monitor BUN, creatinine 2. Nausea, vomiting, diarrhea - Possible gastroenteritis, possible withdrawal - Check stool for C. diff 3. Prolonged QTC - Patient reports she has not taken Suboxone in a month - Hold Lexapro, Seroquel, Trazodone - Check magnesium - Monitor QTc on EKG daily 4. Left 1st toe ulcer - Vascular, podiatry consults 5. Type 2 DM - Hold Janumet - Fingersticks with Novolog sliding scale 6. HTN - Hold lisinopril, Labetalol secondary to ANASTASIA, hypotension 7. History of DVT/PE - Has IVC filter - Continue therapeutic dose Lovenox 8. Depression with anxiety - Hold Lexapro, Seroquel, Trazodone secondary to prolonged QTc 9. Polysubstance abuse 10. Morbid obesity with BMI 45.8
[2018-08-04] MEDS ORDERED: SODIUM CHLORIDE 1,000 ML IV SCH (23:15)
[2018-08-04] MEDS ORDERED: ENOXAPARIN NA (PORCINE) 120 MG/0.8 ML DISP.SYRIN SQ SCH (23:15)
[2018-08-05] MEDS ORDERED: ENOXAPARIN NA (PORCINE) 100 MG/1 ML DISP.SYRIN SQ ONE (00:30)
[2018-08-05] MEDS ORDERED: ENOXAPARIN NA (PORCINE) 40 MG/0.4 ML DISP.SYRIN SQ ONE (00:32)
[2018-08-05] MEDS ORDERED: ACETAMINOPHEN 1000 MG/100 ML VIAL (NON FORMULARY) IVPB ONE ×2 (01:50→21:54)
[2018-08-05] MEDS ORDERED: ACETAMINOPHEN INJECTION 100 ML IVPB ONE (02:14)
[2018-08-05 06:03] LABS: BASO % 0.7 % (0-2.0); EOS % 0.7 % (0-4.5); HEMATOCRIT 40.2 % (32.4-45.2); HEMOGLOBIN 13.4 GM/dL (10.7-15.3); MCH 29.7 pg (25.7-33.7); MCHC 33.4 g/dl (32.0-36.0); MEAN CELL VOLUME 88.9 fl (80-96); MEAN PLT VOLUME 8.4 fl (7.5-11.1); MONO % 6.8 % (3.8-10.2); NEUT % 78.8 % (42.8-82.8); PLATELET COUNT 266 K/MM3 (134-434); RBC 4.52 M/mm3 (3.60-5.2); WHITE BLOOD COUNT 14.1 K/mm3 (4.0-10.0)
[2018-08-05 06:45] LABS: ANION GAP 15 MMOL/L (8-16); BLOOD UREA NITROGEN 55 mg/dL (7-18); CALCIUM 8.8 mg/dL (8.5-10.1); CHLORIDE 102 mmol/L (98-107); CO2 23 mmol/L (21-32); CREATININE 4.9 mg/dL (0.55-1.3); GLUCOSE,RANDOM 153 mg/dL (74-106); MAGNESIUM 3.1 mg/dL (1.8-2.4); PHOSPHOROUS 3.3 mg/dL (2.5-4.9); POTASSIUM 3.9 mmol/L (3.5-5.1); SODIUM 140 mmol/L (136-145)
--- NOTE | 2018-08-05 07:38 | PN ---
Progress Note, Physician Chief Complaint: c/o nausea and abd pain no vomiting wants to eat History of Present Illness: 8 y/o F with PMH polysubstance abuse , T2DM, HTN, CHF, DVT (s/p IVC filter 2014 , on lovenox), recent dx c.diff was tx with vanco 125mg [id number] , anxiety, depression who presents to the ED c/o abdominal pain, nausea, vomiting , fever abd pain on arrival elevated TWBC and ANASTASIA rising BUN creat from base line 23/ 0.8 on 07/17/18 to 38/3.9 and elevated Lactic acid Hypotention responded to fluid challenge. Lab sh - Current Medication List Current Medications: Active Medications Enoxaparin Sodium (Lovenox -) 120 mg SQ BID [facility] Last Admin: 08/05/18 00:35 Dose: 120 mg Sodium Chloride (Normal Saline -) 1,000 mls @ 100 mls/hr IV ASDIR NI Last Admin: 08/05/18 00:14 Dose: 100 mls/hr Famotidine/Sodium Chloride (Pepcid 20 Mg Premixed Ivpb -) 20 mg in 50 mls @ 100 mls/hr IVPB Q12H PRN PRN Reason: DYSPEPSIA Insulin Aspart (Novolog Vial Sliding Scale -) 1 vial SQ ACHS [facility]; Protocol Trimethobenzamide HCl (Tigan Injection -) 200 mg IM Q8H PRN PRN Reason: NAUSEA - Objective Vital Signs: Vital Signs Temperature 98.1 F 08/05/18 07:04 Pulse Rate 78 08/05/18 07:04 Respiratory Rate 17 08/05/18 07:04 Blood Pressure 105/61 08/05/18 07:04 O2 Sat by Pulse Oximetry (%) 95 08/05/18 07:04 Not in distress stable HEENT: mm moist no anemia PERRLA EOMI NECK: No JVD no Bruit CHEST: CTA B/L CVS: S1 S2 no m/g/r ABD: no distention non tender BS + EXT: No edema feet. no calf tenderness, pulses + MEDICAL DETAIL REPRESENTATIVE: AOX3 non focal Labs: CBC, BMP 08/05/18 05:50 08/05/18 05:50 INR, PTT INR 1.05 (0.83-1.09) 08/04/18 16:57 Problem List - Problems (1) Nausea & vomiting Assessment/Plan: most likely due to substance abuse improving cont IV hydration, metclopramide PRN , Famotidine start Po and advance as tolerates Code(s): R11.2 - NAUSEA WITH VOMITING, UNSPECIFIED (2) Hypovolemic shock Assessment/Plan: Due to dehydration secondary to nausea and vomiting with diarrhea, poor PO intake, improved after IV Hydration cont IV hydration no sourse of infection. Code(s): R57.1 - HYPOVOLEMIC SHOCK (3) SIRS (systemic inflammatory response syndrome) Assessment/Plan: due to dehydration no infectious sourse cont IV Hydration observe for Dts Code(s): R65.10 - SIRS OF NON-INFECTIOUS ORIGIN W/O ACUTE ORGAN DYSFUNCTION (4) ANASTASIA (acute kidney injury) Assessment/Plan: Patient base line BUN/Creat 23/0.9 on 07/17/18 present with ANASTASIA with BUN 39/3.9 with hypotention and dehydration in the setting of nausea, vomiting or diarrhea , U lytes, IV hydration Sr phosphate level serial BMP BID, nephrology consult. Code(s): N17.9 - ACUTE KIDNEY FAILURE, UNSPECIFIED (5) Diabetic neuropathy associated with type 2 diabetes mellitus Assessment/Plan: At present Fs are controlled F/U FS and correction dose insulin. Code(s): E11.40 - TYPE 2 DIABETES MELLITUS WITH DIABETIC NEUROPATHY, UNSP Qualifiers: Diabetes mellitus complication detail: diabetic polyneuropathy Qualified Code(s): E11.42 - Type 2 diabetes mellitus with diabetic polyneuropathy (6) Morbid obesity Assessment/Plan: nutriional consult as out patient Code(s): E66.01 - MORBID (SEVERE) OBESITY DUE TO EXCESS CALORIES (7) DVT (deep venous thrombosis) Assessment/Plan: H/O DVT s/p IVC filter probably proximal was on AC Lovenox stopped taking for > 1 month ago, at present no Le swelling or clinical sign of DVT considering ANASTASIA with GFR 12 will hold, LE Doppler DVT prophylaxis will discuss with hematology consult Code(s): I82.409 - ACUTE EMBOLISM AND THOMBOS UNSP DEEP VN UNSP LOWER EXTREMITY (8) Anxiety and depression Assessment/Plan: cont Home meds Code(s): F41.8 - OTHER SPECIFIED ANXIETY DISORDERS (9) Hypertension Assessment/Plan: Hold BPmeds for anastasia and Hypotention will add CCB once BP > 150/100 Code(s): I10 - ESSENTIAL (PRIMARY) HYPERTENSION Qualifiers: Hypertension type: essential hypertension Qualified Code(s): I10 - Essential (primary) hypertension (10) Polysubstance (excluding opioids) dependence Assessment/Plan: Active marijuana a and heroin denies Cocaine last use 2 days ago F/U U Tox , consider rehab on DC observe closely for withdrawal and seizures. Code(s): F19.20 - OTHER PSYCHOACTIVE SUBSTANCE DEPENDENCE, UNCOMPLICATED (11) Diabetic ulcer of left great toe Assessment/Plan: evaluated by Podiatry no active infection. Code(s): E11.621 - TYPE 2 DIABETES MELLITUS WITH FOOT ULCER; L97.529 - NON- PRESSURE CHRONIC ULCER OTH PRT LEFT FOOT W UNSP SEVERITY
[2018-08-05] MEDS: INSULIN SLIDING SCALE (NOVOLOG) 1 VIAL SQ SCH ×4 (07:43→23:24)
--- NOTE | 2018-08-05 10:16 | CONSULT ---
Consult Consult Specialty:: Podiatry Reason for Consultation:: Wound chronic left big toe. - History of Present Illness Chief Complaint: Wound left big toe. History of Present Illness: Wound left big toe being tx by outpatient Betting Agency Manager last visit according to patient 6 months ago. 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 HGBA1c PENDING.) - Past Surgical History Past Surgical History: Yes: Cholecystectomy, Colonoscopy - Alcohol/Substance Use Hx Alcohol Use: No - Smoking History Smoking history: Never smoked Have you smoked in the past 12 months: Yes Aproximately how many cigarettes per day: 5 - Social History Usual Living Arrangement: With Parent ADL: Independent History of Recent Travel: No Home Medications - Allergies Allergies/Adverse Reactions: Allergies Allergy/AdvReac Type Severity Reaction Status Date / Time ondansetron [From Zofran] AdvReac Severe Verified 08/04/18 15:36 - Home Medications Home Medications: Ambulatory Orders Pregabalin [Lyrica] 100 mg PO TID 10/02/16 Vitamin A & D Top Oint - 1 applic TP Q6HPO tube 08/24/17 Enoxaparin [Lovenox -] 120 mg SQ BID #60 disp.syrin 11/28/17 Zolpidem Tartrate [Ambien] 10 mg PO HS 01/23/18 traZODone HCL [Desyrel -] 100 mg PO HS 02/13/18 Escitalopram Oxalate [Lexapro -] 5 mg PO DAILY #14 tablet 05/17/18 Quetiapine Fumarate [Seroquel -] 50 mg PO HS #30 tablet 05/17/18 Labetalol HCl [Normodyne -] 400 mg PO BID #120 tablet 06/19/18 Lisinopril 20 mg PO DAILY #30 tablet 06/21/18 Sitagliptin Phos/Metformin HCl [Janumet Xr 50-500 mg Tablet] 1 each PO DAILY # 30 tbmp.24hr 06/21/18 Buprenorphine/Naloxone [Suboxone 2Mg/0.5MG Sl Film -] 1 combo SL DAILY #7 packet MDD 1 06/26/18 Naloxone HCl [Narcan] 4 mg NS ONCE #1 spray 06/26/18 Family Disease History - Family Disease History Family Disease History: Diabetes: Father (DM, etoh), Mother, Brother, Heart Disease: Grandparent (massive CVA in his early 60s) Physical Exam Vital Signs: Vital Signs Temperature 98.1 F 08/05/18 07:04 Pulse Rate 78 08/05/18 07:04 Respiratory Rate 17 08/05/18 07:04 Blood Pressure 105/61 08/05/18 07:04 O2 Sat by Pulse Oximetry (%) 95 08/05/18 07:04 Extremities: Yes: Other (wound under left big toe, -drainage, +grade 2-3, + hallux limitus left, r/o om) Labs: CBC, BMP 08/05/18 05:50 08/05/18 05:50 Imaging - Results X-ray: Report Reviewed, Image Reviewed (changes appear at head of proximal phalanx left big toe will order MRI to confirm OM) Assessment/Plan chronic diabetic foot wound om? Santyl dressing change daily. MRI. HGBA1c. ESR. CRP. Will follow.
--- NOTE | 2018-08-05 11:07 | EKG ---
Test Reason : Blood Pressure : / mmHG Vent. Rate : 075 BPM Atrial Rate : 075 BPM P-R Int : 162 ms QRS Dur : 108 ms QT Int : 422 ms P-R-T Axes : 015 040 024 degrees QTc Int : 471 ms NORMAL SINUS RHYTHM NONSPECIFIC T WAVE ABNORMALITY PROLONGED QT ABNORMAL ECG WHEN COMPARED WITH ECG OF 04-AUG-2018 15:40, T WAVE VARIATION Confirmed by BRETT DANGELO MD ([id number]) on 08/05/2018 11:07:14 AM Referred By: Alejo CHRISTIANSEN Confirmed By:BRETT DANGELO MD
--- NOTE | 2018-08-05 12:16 | EKG ---
Test Reason : Blood Pressure : / mmHG Vent. Rate : 076 BPM Atrial Rate : 076 BPM P-R Int : 164 ms QRS Dur : 104 ms QT Int : 456 ms P-R-T Axes : 020 069 045 degrees QTc Int : 513 ms NORMAL SINUS RHYTHM PROLONGED QT ABNORMAL ECG WHEN COMPARED WITH ECG OF 20-JUN-2018 09:15, NO SIGNIFICANT CHANGE WAS FOUND Confirmed by BRETT DANGELO MD ([id number]) on 08/05/2018 12:16:06 PM Referred By: Confirmed By:BRETT DANGELO MD
--- NOTE | 2018-08-05 12:28 | CONSULT ---
- Consultation REQUESTING PROVIDER: CONSULT REQUEST: We have been asked to surgically evaluate this patient for ( specify). PCP:Liang Tompkins MD HISTORY OF PRESENT ILLNESS: 48 y/o F w/ PMHx polysubstance abuse (on suboxone previously), DM, HTN, CHF, provoked DVT in 2014 (in Coma secondary to overdose, s/p IVC filter, on lovenox) , recent dx c.diff was tx with vanco 125mg [id number] , anxiety, depression now admitted for workup for abdominal pain, N/V. Vascular consulted for L great toe ulcer. Pt states ulcer began as a callus over 6 months ago. Reports following with a Budget Coordinator for periodic callus debridements. States her insurance ran out a few weeks ago and she has not been able to follow up. Currently cleaning ulcer with alcohol and applying antibiotic ointment. States she changes dressings "most days". Denies fever/chills, purulent drainage from ulcer, evaluation with vascular surgeon, known osteomyelitis. PMHx: as above PSHx: Cholecystectomy, IVC filter 2014 Home Medications Medication Instructions Recorded Pregabalin [Lyrica] 100 mg PO TID 10/02/16 Vitamin A & D Top Oint - 1 applic TP Q6HPO tube 08/24/17 Enoxaparin [Lovenox -] 120 mg SQ BID #60 disp.syrin 11/28/17 Zolpidem Tartrate [Ambien] 10 mg PO HS 01/23/18 traZODone HCL [Desyrel -] 100 mg PO HS 02/13/18 Escitalopram Oxalate [Lexapro -] 5 mg PO DAILY #14 tablet 05/17/18 Quetiapine Fumarate [Seroquel -] 50 mg PO HS #30 tablet 05/17/18 Labetalol HCl [Normodyne -] 400 mg PO BID #120 tablet 06/19/18 Lisinopril 20 mg PO DAILY #30 tablet 06/21/18 Sitagliptin Phos/Metformin HCl 1 each PO DAILY #30 tbmp.24hr 06/21/18 [Janumet Xr 50-500 mg Tablet] Buprenorphine/Naloxone [Suboxone 1 combo SL DAILY #7 packet MDD 1 06/26/18 2Mg/0.5MG Sl Film -] Naloxone HCl [Narcan] 4 mg NS ONCE #1 spray 06/26/18 Allergies Allergy/AdvReac Type Severity Reaction Status Date / Time ondansetron [From Zofran] AdvReac Severe Verified 08/04/18 15:36 REVIEW OF SYSTEMS: CONSTITUTIONAL: Absent: fever, chills CARDIOVASCULAR: Absent: chest pain RESPIRATORY: Absent: cough PHYSICAL EXAM: GENERAL: Awake, alert, and fully oriented, in no acute distress. HEAD: Normal with no signs of trauma. LUNGS: Unlabored on RA LOWER EXTREMITIES: L great toe with ulcer at medial aspect, approximately 3x3.5cm in size. +pinpoint opening at center of ulcer, unable to express any purulent drainage, scant serous drainage expressed. +TTP. No foul odor. + Hypertrophic skin changes surrounding ulcer. No erythema. Vital Signs Temperature 98.1 F 08/05/18 07:04 Pulse Rate 78 08/05/18 07:04 Respiratory Rate 17 08/05/18 07:04 Blood Pressure 105/61 08/05/18 07:04 O2 Sat by Pulse Oximetry (%) 95 08/05/18 07:04 Lab Results WBC 14.1 K/mm3 (4.0-10.0) H 08/05/18 05:50 RBC 4.52 M/mm3 (3.60-5.2) 08/05/18 05:50 Hgb 13.4 GM/dL (10.7-15.3) 08/05/18 05:50 Hct 40.2 % (32.4-45.2) 08/05/18 05:50 MCV 88.9 fl (80-96) 08/05/18 05:50 MCHC 33.4 g/dl (32.0-36.0) 08/05/18 05:50 RDW 15.0 % (11.6-15.6) 08/05/18 05:50 Plt Count 266 K/MM3 (134-434) 08/05/18 05:50 Sodium 140 mmol/L (136-145) 08/05/18 05:50 Potassium 3.9 mmol/L (3.5-5.1) 08/05/18 05:50 Chloride 102 mmol/L (98-107) 08/05/18 05:50 Carbon Dioxide 23 mmol/L (21-32) 08/05/18 05:50 Anion Gap 15 MMOL/L (8-16) 08/05/18 05:50 BUN 55 mg/dL (7-18) H 08/05/18 05:50 Creatinine 4.9 mg/dL (0.55-1.3) H 08/05/18 05:50 Random Glucose 153 mg/dL (74-106) H 08/05/18 05:50 Calcium 8.8 mg/dL (8.5-10.1) 08/05/18 05:50 Blood Type A POSITIVE 08/04/18 23:42 Antibody Screen Negative 08/04/18 23:42 INR 1.05 (0.83-1.09) 08/04/18 16:57 Left Foot xray (08/05/18): no signs of osteomyelitis A/P: 48 y/o F w/ PMHx polysubstance abuse (on suboxone previously), DM, HTN, CHF , provoked DVT in 2014 (in Coma secondary to overdose, s/p IVC filter, on lovenox), recent dx c.diff was tx with vanco 125mg [id number] , anxiety, depression now admitted for workup for abdominal pain, N/V. Vascular consulted for L great toe ulcer. L great toe with chronic ulcer, no signs of infections. +Leukocytosis, downtrending (currently 14k from 16k prior), unlikely to be due to toe ulcer -Wound care with: wash ulcer with 1/2 NS/ 1/2 Peroxide, apply Bacitracin ointment, cover with 4x4 -Glucose control -Infection workup -Podiatry follow up -Please contact with any questions/concerns. above d/w attending Dr Knox
[2018-08-05] MEDS ORDERED: SODIUM CHLORIDE 1,000 ML IV STA (14:09)
[2018-08-05] MEDS ORDERED: BACITRACIN 0.9 GM PACKET ONE (15:14)
[2018-08-05] MEDS ORDERED: METOCLOPRAMIDE HCL INJECTION 10 MG/2 ML VIAL ONE (15:25)
[2018-08-05] MEDS: METOCLOPRAMIDE HCL INJECTION 10 MG/2 ML VIAL IVPUSH PRN (15:27)
[2018-08-05] MEDS: BACITRACIN 15 GM TUBE TOPICAL OINTMENT TP SCH (15:27)
--- NOTE | 2018-08-05 17:22 | CONSULT ---
Consult - text type - Consultation Consultation Note: Renal consult for ANASTASIA This is a 48 year old woman with hx of CHF, DVT, DM, Polysubstance abuse, hx of renal failure requiring acute dialysis who presented with abd pain with N/V and foot pain and noted to have ANASTASIA. Pt is known to our service from prior admissions. Pt reports N/V x several days. Has recent herion use. No fever, chills. Making urine. No NSAID use. No recent contrast exposure. No RO, confusion or lethargy. Feels very fatigued. PMHx: as above Allergies: NKDA Family hx: NC Social Hx: No T/A/D ROS: as per HPI Home Medications Medication Instructions Recorded Pregabalin [Lyrica] 100 mg PO TID 10/02/16 Vitamin A & D Top Oint - 1 applic TP Q6HPO tube 08/24/17 Enoxaparin [Lovenox -] 120 mg SQ BID #60 disp.syrin 11/28/17 Zolpidem Tartrate [Ambien] 10 mg PO HS 01/23/18 traZODone HCL [Desyrel -] 100 mg PO HS 02/13/18 Escitalopram Oxalate [Lexapro -] 5 mg PO DAILY #14 tablet 05/17/18 Quetiapine Fumarate [Seroquel -] 50 mg PO HS #30 tablet 05/17/18 Labetalol HCl [Normodyne -] 400 mg PO BID #120 tablet 06/19/18 Lisinopril 20 mg PO DAILY #30 tablet 06/21/18 Sitagliptin Phos/Metformin HCl 1 each PO DAILY #30 tbmp.24hr 06/21/18 [Janumet Xr 50-500 mg Tablet] Buprenorphine/Naloxone [Suboxone 1 combo SL DAILY #7 packet MDD 1 06/26/18 2Mg/0.5MG Sl Film -] Naloxone HCl [Narcan] 4 mg NS ONCE #1 spray 06/26/18 Vital Signs Temperature 98.1 F 08/05/18 07:04 Pulse Rate 78 08/05/18 07:04 Respiratory Rate 17 08/05/18 07:04 Blood Pressure 105/61 08/05/18 07:04 O2 Sat by Pulse Oximetry (%) 95 08/05/18 07:04 Intake & Output 08/02/18 08/03/18 08/04/1808/05/19 23:59 23:59 23:59 23:59 Weight 124.738 kg NAD awake and alert RRR, NO M/R Dec BS, no rales Obese, Mild tenderness Left foot in dressing, no edema no focal neurological defects CBC, BMP 08/05/18 05:50 08/05/18 05:50 Current Medications Bacitracin (Bacitracin -) 1 applic TP DAILY [facility] Last Admin: 08/05/18 15:27 Dose: 1 applic Heparin Sodium (Porcine) (Heparin -) 5,000 unit SQ BID [facility] Sodium Chloride (Normal Saline -) 1,000 mls @ 100 mls/hr IV ASDIR NI Last Admin: 08/05/18 00:14 Dose: 100 mls/hr Famotidine/Sodium Chloride (Pepcid 20 Mg Premixed Ivpb -) 20 mg in 50 mls @ 100 mls/hr IVPB Q12H PRN PRN Reason: DYSPEPSIA Insulin Aspart (Novolog Vial Sliding Scale -) 1 vial SQ ACHS [facility]; Protocol Last Admin: 08/05/18 11:02 Dose: Not Given Metoclopramide HCl (Reglan Injection -) 10 mg IVPUSH Q6H PRN PRN Reason: NAUSEA AND/OR VOMITING Last Admin: 08/05/18 15:27 Dose: 10 mg Trimethobenzamide HCl (Tigan Injection -) 200 mg IM Q8H PRN PRN Reason: NAUSEA 48 year old woman with hx of CHF, DVT, DM, Polysubstance abuse, hx of renal failure requiring acute dialysis who presented with abd pain with N/V and foot pain and noted to have ANASTASIA. #ANASTASIA likely due to volume depletion +/- hemodynamic mediated ischemia in setting of ACEi and volume depletion #Nausea and Vomiting #Polysubstance abuse #DM #Hx fo hypertension, now normotensive #Lactic acidosis Check urine for FeNa, FeURea, UPCR Continue aggressive IVF hydaration with NS keep MAP > 65 US showed no signs of obstruction dose all meds for CrCl < 15 no urgent indication for RESIDENTIAL REMODELING SUBCONTRACTOR Continue insulin sliding scale continue antiemetics Thank you Will follow Alejandro Pace DO
[2018-08-05] MEDS: SODIUM CHLORIDE 1,000 ML IV SCH (17:54)
[2018-08-05 20:17] LABS: ANION GAP 15 MMOL/L (8-16); BLOOD UREA NITROGEN 61 mg/dL (7-18); CALCIUM 9.1 mg/dL (8.5-10.1); CHLORIDE 100 mmol/L (98-107); CO2 22 mmol/L (21-32); CREATININE 6.7 mg/dL (0.55-1.3); GLUCOSE,RANDOM 149 mg/dL (74-106); POTASSIUM 3.7 mmol/L (3.5-5.1); SODIUM 136 mmol/L (136-145)
[2018-08-05] MEDS: LORazepam 2 MG/ML SDV VIAL IVPB PRN (20:35)
--- NOTE | 2018-08-05 21:13 | CONSULT ---
Consult - text type - Consultation Consultation Note: 48 y/o F w/ PMHx polysubstance abuse (on suboxone previously), DM, HTN, CHF, provoked DVT in 2014 (in Coma secondary to overdose, s/p IVC filter, on lovenox) , recent dx c.diff was tx with vanco 125mg [id number] , anxiety, depression now admitted for workup for abdominal pain, N/V. Has Lt. great toe ulcer. Noted to be in ANASTASIA We have been consulted for chronic LLE DVT she had been on lovenox at home followed by Dr. Ruiz PMHx: as above PSHx: Cholecystectomy, IVC filter 2014 Home Medications Medication Instructions Recorded Pregabalin [Lyrica] 100 mg PO TID 10/02/16 Vitamin A & D Top Oint - 1 applic TP Q6HPO tube 08/24/17 Enoxaparin [Lovenox -] 120 mg SQ BID #60 disp.syrin 11/28/17 Zolpidem Tartrate [Ambien] 10 mg PO HS 01/23/18 traZODone HCL [Desyrel -] 100 mg PO HS 02/13/18 Escitalopram Oxalate [Lexapro -] 5 mg PO DAILY #14 tablet 05/17/18 Quetiapine Fumarate [Seroquel -] 50 mg PO HS #30 tablet 05/17/18 Labetalol HCl [Normodyne -] 400 mg PO BID #120 tablet 06/19/18 Lisinopril 20 mg PO DAILY #30 tablet 06/21/18 Sitagliptin Phos/Metformin HCl 1 each PO DAILY #30 tbmp.24hr 06/21/18 [Janumet Xr 50-500 mg Tablet] Buprenorphine/Naloxone [Suboxone 1 combo SL DAILY #7 packet MDD 1 06/26/18 2Mg/0.5MG Sl Film -] Naloxone HCl [Narcan] 4 mg NS ONCE #1 spray 06/26/18 Allergies Allergy/AdvReac Type Severity Reaction Status Date / Time ondansetron [From Zofran] AdvReac Severe Verified 08/04/18 15:36 REVIEW OF SYSTEMS: CONSTITUTIONAL: Absent: fever, chills CARDIOVASCULAR: Absent: chest pain RESPIRATORY: Absent: cough PHYSICAL EXAM: GENERAL: Awake, alert, and fully oriented, in no acute distress. HEAD: Normal with no signs of trauma. Heart-S1, S2 regular Chest-- CTA P/A--soft, nontender Ext. Lt. great toe ulcer Vital Signs Temperature 98.1 F 08/05/18 07:04 Pulse Rate 78 08/05/18 07:04 Respiratory Rate 17 08/05/18 07:04 Blood Pressure 105/61 08/05/18 07:04 O2 Sat by Pulse Oximetry (%) 95 08/05/18 07:04 Lab Results WBC 14.1 K/mm3 (4.0-10.0) H 08/05/18 05:50 RBC 4.52 M/mm3 (3.60-5.2) 08/05/18 05:50 Hgb 13.4 GM/dL (10.7-15.3) 08/05/18 05:50 Hct 40.2 % (32.4-45.2) 08/05/18 05:50 MCV 88.9 fl (80-96) 08/05/18 05:50 MCHC 33.4 g/dl (32.0-36.0) 08/05/18 05:50 RDW 15.0 % (11.6-15.6) 08/05/18 05:50 Plt Count 266 K/MM3 (134-434) 08/05/18 05:50 Sodium 140 mmol/L (136-145) 08/05/18 05:50 Potassium 3.9 mmol/L (3.5-5.1) 08/05/18 05:50 Chloride 102 mmol/L (98-107) 08/05/18 05:50 Carbon Dioxide 23 mmol/L (21-32) 08/05/18 05:50 Anion Gap 15 MMOL/L (8-16) 08/05/18 05:50 BUN 55 mg/dL (7-18) H 08/05/18 05:50 Creatinine 4.9 mg/dL (0.55-1.3) H 08/05/18 05:50 Random Glucose 153 mg/dL (74-106) H 08/05/18 05:50 Calcium 8.8 mg/dL (8.5-10.1) 08/05/18 05:50 Blood Type A POSITIVE 08/04/18 23:42 Antibody Screen Negative 08/04/18 23:42 INR 1.05 (0.83-1.09) 08/04/18 16:57 Left Foot xray (08/05/18): no signs of osteomyelitis A/P: 48 y/o F w/ PMHx polysubstance abuse (on suboxone previously), DM, HTN, CHF , provoked DVT in 2014 (in Coma secondary to overdose, s/p IVC filter, on lovenox), recent dx c.diff was tx with vanco 125mg [id number] , anxiety, depression now admitted for workup for abdominal pain, N/V. HAs Lt, great toe ulcer Provoked DVT after being admitted to hospital for altered mental status from overdose and then sent to rehab 3.5 yrs. ago. HAs IVC filter HAd been on lovenox since then Under care of Dr. Ruiz Father had ? PE Currentky due to ANASTASIA lovenox being held Duples shows chronic left distal superficical femoral/popliteal DVT On heparin SC check Pt/PTT will consider heparin drip withoout bolus due to ANASTASIA ? bridging to coumadin vs switching to lovenox based on renal function Will disucss with prior w/u for DVT
[2018-08-05] MEDS ORDERED: HEPARIN NA (PORCINE) 5,000 UNITS/ML 1ML VIAL SQ SCH (22:00)
[2018-08-06] MEDS: COLLAGENASE CLOSTRIDIUM HIST. 30 GRAMS TUBE TP SCH ×2 (02:31→10:46)
[2018-08-06] MEDS: LORazepam 2 MG/ML SDV VIAL IVPB PRN ×4 (02:31→23:45)
[2018-08-06] MEDS ORDERED: ACETAMINOPHEN 1000 MG/100 ML VIAL (NON FORMULARY) IVPB ONE (05:52)
[2018-08-06] MEDS ORDERED: HEPARIN NA (PORCINE) 5,000 UNITS/ML 1ML VIAL IVPUSH PRN ×2 (06:55)
[2018-08-06] MEDS: INSULIN SLIDING SCALE (NOVOLOG) 1 VIAL SQ SCH ×4 (07:15→21:15)
[2018-08-06 07:55] LABS: BASO % 0.8 % (0-2.0); EOS % 3.2 % (0-4.5); HEMATOCRIT 35.9 % (32.4-45.2); HEMOGLOBIN 12.1 GM/dL (10.7-15.3); LYMPH % 20.2 % (8-40); MCH 30.1 pg (25.7-33.7); MCHC 33.7 g/dl (32.0-36.0); MEAN CELL VOLUME 89.5 fl (80-96); MEAN PLT VOLUME 8.6 fl (7.5-11.1); MONO % 9.5 % (3.8-10.2); NEUT % 66.3 % (42.8-82.8); PLATELET COUNT 226 K/MM3 (134-434); RBC 4.01 M/mm3 (3.60-5.2); RDW 14.7 % (11.6-15.6); WHITE BLOOD COUNT 9.2 K/mm3 (4.0-10.0)
[2018-08-06] MEDS ORDERED: HEPARIN - 25,000 UNIT in SODIUM CHLORIDE 495 ML IV SCH (08:00)
[2018-08-06 08:13] LABS: ANION GAP 16 MMOL/L (8-16); BLOOD UREA NITROGEN 61 mg/dL (7-18); CALCIUM 8.7 mg/dL (8.5-10.1); CHLORIDE 102 mmol/L (98-107); CO2 20 mmol/L (21-32); GLUCOSE,RANDOM 106 mg/dL (74-106); PHOSPHOROUS 4.8 mg/dL (2.5-4.9); POTASSIUM 3.5 mmol/L (3.5-5.1); SODIUM 138 mmol/L (136-145)
[2018-08-06 08:24] LABS: CREATININE 7.4 mg/dL (0.55-1.3)
[2018-08-06] MEDS: BACITRACIN 15 GM TUBE TOPICAL OINTMENT TP SCH (10:46)
[2018-08-06] MEDS ORDERED: MORPHINE SULFATE 2 MG/ML VIAL IVPUSH PRN (11:42)
--- NOTE | 2018-08-06 15:42 | PN ---
Progress Note (short form) - Note Progress Note: follow up left big toe. getting mri today. vss, tmax=98.3 +grade 3 wound left big toe, r/o om, +cellulitis, +foul smelling r/o om Santyl dressing change daily. Will follow. Awaiting wound culture. ID consult Dr. Bonner.
--- NOTE | 2018-08-06 16:10 | PN ---
Teaching Attending Note Name of Resident: Nita Joseph ATTENDING PHYSICIAN STATEMENT I saw and evaluated the patient. I reviewed the resident's note and discussed the case with the resident. I agree with the resident's findings and plan as documented. SUBJECTIVE: Patient c/o abd pain , anusea and vomiting resolved, diarrhea resolving mild lower abd pain c/o oliguria OBJECTIVE: Vital Signs Period Temp Pulse Resp BP Sys/Puente Pulse Ox Last 24 Hr 97.7 F-98.3 F 72-85 18-20 131-163/77-105 96-96 - - Not in distress stable HEENT: mm moist no anemia , mildly dilated but reactive EOMI NECK: No JVD no Bruit CHEST: CTA B/L CVS: S1 S2 no m/g/r ABD: no distention mild tender BS + EXT: No edema feet. no calf tenderness, pulses + GRADES 6 THROUGH 8 TEACHER: AOX3 non focal ASSESSMENT AND PLAN:48 y/o F with PMH polysubstance abuse , T2DM, HTN, CHF, DVT (s/p IVC filter 2014, on lovenox), recent dx c.diff was tx with vanco 125mg [id number] , anxiety, depression who presents to the ED c/o abdominal pain, nausea, vomiting , fever abd pain on arrival elevated TWBC and ANASTASIA rising BUN creat from base line 23/0.8 Patient nausea vomiting resolved diarrhea improving TWBC trended normal rising BUN and Creat Active Issue; -ANASTASIA with oliguria; Due to substance abuse , Hypotention and dehydration; rising BUN/Cret simillar to previous presentation in 2016 (that time required HD ), Renal recommended no CRAY FISHING HAND at present close observation IP/OP chart , plese insert Harrison Rpt EKG to monitor QTC -Diarrhea; Improving afebrile TWBC trended normal stool C Diff Ag+, Toxin -ve, please F/U ID if wants to start on treatment. -Narcotic withdrawal: no clinical sign , addiction mEd consult low dose morphine PRN -Chronic DVT Left LE not on AC at home s/p IVC filter will observe off AC cont DVT Prophylaxis Problem List - Problems (1) Nausea & vomiting Code(s): R11.2 - NAUSEA WITH VOMITING, UNSPECIFIED (2) Hypovolemic shock Code(s): R57.1 - HYPOVOLEMIC SHOCK (3) SIRS (systemic inflammatory response syndrome) Code(s): R65.10 - SIRS OF NON-INFECTIOUS ORIGIN W/O ACUTE ORGAN DYSFUNCTION (4) ANASTASIA (acute kidney injury) Code(s): N17.9 - ACUTE KIDNEY FAILURE, UNSPECIFIED (5) Diabetic neuropathy associated with type 2 diabetes mellitus Code(s): E11.40 - TYPE 2 DIABETES MELLITUS WITH DIABETIC NEUROPATHY, UNSP Qualifiers: Diabetes mellitus complication detail: diabetic polyneuropathy Qualified Code(s): E11.42 - Type 2 diabetes mellitus with diabetic polyneuropathy (6) Morbid obesity Code(s): E66.01 - MORBID (SEVERE) OBESITY DUE TO EXCESS CALORIES (7) DVT (deep venous thrombosis) Code(s): I82.409 - ACUTE EMBOLISM AND THOMBOS UNSP DEEP VN UNSP LOWER EXTREMITY (8) Anxiety and depression Code(s): F41.8 - OTHER SPECIFIED ANXIETY DISORDERS (9) Hypertension Code(s): I10 - ESSENTIAL (PRIMARY) HYPERTENSION Qualifiers: Hypertension type: essential hypertension Qualified Code(s): I10 - Essential (primary) hypertension (10) Polysubstance (excluding opioids) dependence Code(s): F19.20 - OTHER PSYCHOACTIVE SUBSTANCE DEPENDENCE, UNCOMPLICATED (11) Diabetic ulcer of left great toe Code(s): E11.621 - TYPE 2 DIABETES MELLITUS WITH FOOT ULCER; L97.529 - NON- PRESSURE CHRONIC ULCER OTH PRT LEFT FOOT W UNSP SEVERITY
--- NOTE | 2018-08-06 16:19 | PN ---
Progress Note (short form) - Note Progress Note: Patient sen and examined Unreliable history States saw Dr. Ruiz 2 months ago, but no clinic records of being seen since 2016. States last took lovenox one month ago ,but no record in pharmacy for greater than 4 months Review past records reveal that [facility], renal failure and after a prolonged hospital course was transferred to the [place]. In 03/2016 came back with right sided pulmonary emboli. Presumably provoked DVT secondary to hospitilzation and subsequent P.E. Has been on Lovenox since , although history is not reliable for follow up. Now with chronic DVT right distal SFV and popliteal vein. ( unchanged since 2017) Last Vital Signs Temp Pulse Resp BP Pulse Ox 97.7 F 75 20 154/97 96 08/06/18 15:30 08/06/18 15:30 08/06/18 15:30 08/06/18 15:30 08/06/18 01:00 Obese Diminished breath sounds Cor-RSR Abd-obese left great toe infection CBC, BMP 08/06/18 06:30 08/06/18 06:30 Current Medications Generic Name Dose Route Start Last Admin Trade Name Freq PRN Reason Stop Dose Admin Bacitracin 1 applic 08/05/18 13:30 08/06/18 10:46 Bacitracin - TP 1 applic DAILY NI Administration Collagenase 1 applic 08/05/18 21:30 08/06/18 10:46 Santyl - TP 1 applic DAILY NI Administration Protocol Heparin Sodium (Porcine) 5,000 unit 08/06/18 06:55 Heparin - IVPUSH PRN PRN HEPARIN PROTOCOL Heparin Sodium (Porcine) 1,000 unit 08/06/18 06:55 Heparin - IVPUSH PRN PRN HEPARIN PROTOCOL Famotidine/Sodium Chloride 20 mg in 50 mls @ 100 mls/hr 08/04/18 23:13 Pepcid 20 Mg Premixed Ivpb - IVPB Q12H PRN DYSPEPSIA Sodium Chloride 1,000 mls @ 125 mls/hr 08/05/18 17:47 08/05/18 17:54 Normal Saline - IV 125 mls/hr ASDIR NI Administration Heparin Sodium (Porcine) 25, 500 mls @ 20 mls/hr 08/06/18 08:00 08/06/18 10: 45 000 unit/ Sodium Chloride IV 1,000 unit/hr TITR NI 20 mls/hr Administration Protocol 1,000 UNIT/HR Insulin Aspart 1 vial 08/05/18 07:00 08/06/18 14:00 Novolog Vial Sliding Scale - SQ Not Given ACHS NI Protocol Lorazepam 2 mg 08/05/18 20:16 08/06/18 10:45 Ativan Injection - IVPB 2 mg Q6H PRN Administration NAUSEA/ANXETY Metoclopramide HCl 10 mg 08/05/18 14:11 08/05/18 15:27 Reglan Injection - IVPUSH 10 mg Q6H PRN Administration NAUSEA AND/OR VOMITING Morphine Sulfate 1 mg 08/06/18 11:42 08/06/18 14:00 Morphine Sulfate IVPUSH 1 mg Q6H PRN Administration PAIN LEVEL 7 - 10 Trimethobenzamide HCl 200 mg 08/04/18 23:14 Tigan Injection - IM Q8H PRN NAUSEA Impression: Substance abuse CKD/ANASTASIA Infection left toe/ulcer Hx of DVT - presumably provoked in 2015 with P.E. one month later. Recently off lovenox x months.Unclear how long patient has been off a/c. In view of provoked DVT and lengthy duration of lovenox, would consider change to DVT prophylaxis with heparin. Would repeat duplex in 2 weeks to assure stability of chronic clot. It may be possible to discontinue a/c in future.
--- NOTE | 2018-08-06 16:40 | PN ---
Physical Exam: SUBJECTIVE: Patient seen and examined at bedside this morning. Patient reporting of severe lower abdominal pain today, not relieved by Tylenol. She still reports diarrhea, but no more episodes of nausea or vomiting. Patient also reported minimal urine output. Patient is a 48 year old female with past medical history of polysubstance abuse (on Subaxone), DM, HTN, CHG, DVT (s/p IVC filter, s/p Lovenox, not compliant), recent C.diff infection treated with Vancomycin 125mg PO for 10days , anxiety, depression, presented with diffuse abdominal pain accompanied by nausea and vomiting of 3 days. Patient reported having used heroin almost everyday, with last use 3 days ago with 2 bags. At the ED, patient was noted to be hypotensive at 60/30, reporting she accidentally took 2 doses of her Lopressor. She denies any fever, chills, headache, dizziness, chest pain, SOB. OBJECTIVE: Vital Signs Period Temp Pulse Resp BP Sys/Puente Pulse Ox Last 24 Hr 97.7 F-98.3 F 72-85 18-20 131-163/77-105 96-96 GENERAL: The patient is awake, alert, and fully oriented, in no acute distress. HEAD: Normal with no signs of trauma. EYES: PERRLA, EOMI, sclera anicteric, conjunctiva clear. ENT: Ears normal, nares patent, oropharynx clear without exudates, moist mucous membranes. NECK: Trachea midline, full range of motion, supple. LUNGS: Breath sounds equal, clear to auscultation bilaterally, decreased bilateral bases. HEART: Regular rate and rhythm, S1, S2 without murmur, rub or gallop. ABDOMEN: Soft, +suprapubic tenderness, nondistended, normoactive bowel sounds, no guarding. EXTREMITIES: 2+ pulses, warm, well-perfused, no edema. +multiple scratch goel and ulcerations on b/l LE; LLE: +foul-smelling wound on left big toe. NEUROLOGICAL: Cranial nerves II through XII grossly intact. Normal speech, gait not observed. PSYCH: Normal mood, normal affect. SKIN: Warm, dry, normal turgor, no rashes or lesions noted Laboratory Results - last 24 hr 08/05/18 08/05/18 08/05/18 17:51 19:05 23:22 WBC RBC Hgb Hct MCV MCH MCHC RDW Plt Count MPV Absolute Neuts (auto) Neutrophils % Lymphocytes % Monocytes % Eosinophils % Basophils % Nucleated RBC % ESR Sodium 136 Potassium 3.7 Chloride 100 Carbon Dioxide 22 Anion Gap 15 BUN 61 H Creatinine 6.7 H Creat Clearance w eGFR 6.65 POC Glucometer 111.46689 121 Random Glucose 149 H Hemoglobin A1c % Calcium 9.1 Phosphorus Stool Occult Blood 08/06/18 08/06/18 08/06/18 06:13 06:30 06:30 WBC 9.2 RBC 4.01 Hgb 12.1 Hct 35.9 MCV 89.5 MCH 30.1 MCHC 33.7 RDW 14.7 Plt Count 226 MPV 8.6 Absolute Neuts (auto) 6.1 Neutrophils % 66.3 Lymphocytes % 20.2 D Monocytes % 9.5 Eosinophils % 3.2 D Basophils % 0.8 Nucleated RBC % 0 ESR Sodium 138 Potassium 3.5 Chloride 102 Carbon Dioxide 20 L Anion Gap 16 BUN 61 H Creatinine 7.4 H* Creat Clearance w eGFR 5.93 POC Glucometer 122 Random Glucose 106 Hemoglobin A1c % Calcium 8.7 Phosphorus 4.8 Stool Occult Blood 08/06/18 08/06/18 08/06/18 06:30 06:30 13:40 WBC RBC Hgb Hct MCV MCH MCHC RDW Plt Count MPV Absolute Neuts (auto) Neutrophils % Lymphocytes % Monocytes % Eosinophils % Basophils % Nucleated RBC % ESR 11 Sodium Potassium Chloride Carbon Dioxide Anion Gap BUN Creatinine Creat Clearance w eGFR POC Glucometer Random Glucose Hemoglobin A1c % 7.5 H Calcium Phosphorus Stool Occult Blood Negative 08/06/18 13:58 WBC RBC Hgb Hct MCV MCH MCHC RDW Plt Count MPV Absolute Neuts (auto) Neutrophils % Lymphocytes % Monocytes % Eosinophils % Basophils % Nucleated RBC % ESR Sodium Potassium Chloride Carbon Dioxide Anion Gap BUN Creatinine Creat Clearance w eGFR POC Glucometer 153 Random Glucose Hemoglobin A1c % Calcium Phosphorus Stool Occult Blood Active Medications Generic Name Dose Route Start Last Admin Trade Name Freq PRN Reason Stop Dose Admin Bacitracin 1 applic 08/05/18 13:30 08/06/18 10:46 Bacitracin - TP 1 applic DAILY NI Administration Collagenase 1 applic 08/05/18 21:30 08/06/18 10:46 Santyl - TP 1 applic DAILY NI Administration Protocol Heparin Sodium (Porcine) 5,000 unit 08/06/18 22:00 Heparin - SQ TID NI Famotidine/Sodium Chloride 20 mg in 50 mls @ 100 mls/hr 08/04/18 23:13 Pepcid 20 Mg Premixed Ivpb - IVPB Q12H PRN DYSPEPSIA Sodium Chloride 1,000 mls @ 125 mls/hr 08/05/18 17:47 08/05/18 17:54 Normal Saline - IV 125 mls/hr ASDIR NI Administration Insulin Aspart 1 vial 08/05/18 07:00 08/06/18 14:00 Novolog Vial Sliding Scale - SQ Not Given ACHS [facility] Protocol Lorazepam 2 mg 08/05/18 20:16 08/06/18 10:45 Ativan Injection - IVPB 2 mg Q6H PRN Administration NAUSEA/ANXETY Metoclopramide HCl 10 mg 08/05/18 14:11 08/05/18 15:27 Reglan Injection - IVPUSH 10 mg Q6H PRN Administration NAUSEA AND/OR VOMITING Morphine Sulfate 1 mg 08/06/18 11:42 08/06/18 14:00 Morphine Sulfate IVPUSH 1 mg Q6H PRN Administration PAIN LEVEL 7 - 10 Trimethobenzamide HCl 200 mg 08/04/18 23:14 Tigan Injection - IM Q8H PRN NAUSEA ASSESSMENT/PLAN: Patient is a 48 year old female with past medical history of polysubstance abuse (on Subaxone), DM, HTN, CHG, DVT (s/p IVC filter, s/p Lovenox, not compliant), recent C.diff infection treated with Vancomycin 125mg PO for 10days , anxiety, depression, presented with diffuse abdominal pain accompanied by nausea and vomiting of 3 days. #Oliguria likely 2/2 Acute kidney injury: unclear etiology -pre-renal from dehydration vs intrarenal 2/2 polysubstance abuse -BUN/Cr worsening today (61/7.4) -Continue IV fluids -Nephrology(Dr. Pace) consulted. Recommendations appreciated. -Urine studies pending -No emergent indication for HOUSEKEEPING ASSISTANT at this time however if by tomorrow BUN > 100 will plan for acute dialysis -For possible renal biopsy if renal function does not improve -Serologic studies ordered -Dose all meds for CrCl <15 #Left great toe cellulitis -MRI without contrast ordered. -Podiatry (Dr. Ly) consulted. Recommendations appreciated. -Awaiting wound culture. -Awaiting MRI results. -Vascular surgery (Dr. Knox) consulted. Recommendations appreciated. -Wound care with: wash ulcer with 1/2 NS/ 1/2 Peroxide, apply Bacitracin ointment, cover with 4x4 -Glucose control #Diarrhea likely 2/2 C. Diff Ag -Stool positive for C.diff antigen but negative toxin -ID (Dr. Bonner) consulted. #Opioid dependence -No more episodes of nausea or vomiting -COWS 2 -Morphine 1 mg q6h PRN for pain -Will continue to monitor -Detox consulted (Dr. Urbano). Recommendations appreciated. -Discontinue Morphine -Restart Suboxone 2/0.5 mg SL daily prn. #DVT -Patient non-compliant with medications and follow-ups. -Last seen by Dr. Ruiz in May 2017, and has never followed up in the clinic -As per patient, last took Lovenox 1 month ago due to insurance problems, but upon med rec with pharmacy, has not picked up Lovenox >4 months. -Hematology (Dr. Man) consulted. Recommendations appreciated. -chronic DVT right distal SFV and popliteal vein. ( unchanged since 11/2017) -In view of provoked DVT and lengthy duration of lovenox, change to DVT prophylaxis with heparin. -Would repeat duplex in 2 weeks to assure stability of chronic clot. -It may be possible to discontinue a/c in future. #DM -A1c: 7.5 -Hold home medications -Insulin sliding scale implemented -BGM ACHS #HTN -currently elevated BP -Will resume home dose of Labetalol 400mg BID -Hold Lisinopril for now #Anxiety/Depression -Hold Seroquel, Trazodone with prolonged QTc (513) -Will continue to monitor #FEN -IV NS @ 125ml/hr -Electrolytes wnl, routine bmp monitoring -Renal diet #Prophylaxis -Heparin 5000units sq tid #Disposition -full code Visit type - Emergency Visit Emergency Visit: Yes ED Registration Date: 08/06/18 Care time: The patient presented to the Emergency Department on the above date and was hospitalized for further evaluation of their emergent condition. - New Patient This patient is new to me today: Yes Date on this admission: 08/06/18 - Critical Care Critical Care patient: No
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
--- NOTE | 2018-08-06 17:45 | PN ---
Progress Note (short form) - Note Progress Note: Renal follow up for ANASTASIA Pt seen and examined at the bedside remains anuric at this time mckoy catheter inserted denies any SOB, cough, cp, abd pain, N/V/D Vital Signs Temperature 97.7 F 08/06/18 15:30 Pulse Rate 75 08/06/18 15:30 Respiratory Rate 20 08/06/18 15:30 Blood Pressure 154/97 08/06/18 15:30 O2 Sat by Pulse Oximetry (%) 96 08/06/18 01:00 Intake & Output 08/03/18 08/04/18 08/05/18 08/06/18 23:59 23:59 23:59 23:59 Intake Total 425 1300 Output Total 10 Balance 425 1290 Weight 124.738 kg 118.66 kg 118.388 kg NAD awake and alert RRR, NO M/R Dec BS, no rales Obese, Mild tenderness Left foot in dressing, no edema no focal neurological defects CBC, BMP 08/06/18 06:30 08/06/18 06:30 Current Medications Bacitracin (Bacitracin -) 1 applic TP DAILY NI Last Admin: 08/06/18 10:46 Dose: 1 applic Buprenorphine/Naloxone (Suboxone 2mg/0.5mg Sl Film -) 1 each SL DAILY NI Collagenase (Santyl -) 1 applic TP DAILY NI; Protocol Last Admin: 08/06/18 10:46 Dose: 1 applic Heparin Sodium (Porcine) (Heparin -) 5,000 unit SQ TID NI Famotidine/Sodium Chloride (Pepcid 20 Mg Premixed Ivpb -) 20 mg in 50 mls @ 100 mls/hr IVPB Q12H PRN PRN Reason: DYSPEPSIA Sodium Chloride (Normal Saline -) 1,000 mls @ 125 mls/hr IV ASDIR NI Last Admin: 08/05/18 17:54 Dose: 125 mls/hr Insulin Aspart (Novolog Vial Sliding Scale -) 1 vial SQ ACHS NI; Protocol Last Admin: 08/06/18 17:36 Dose: Not Given Labetalol HCl (Normodyne -) 200 mg PO BID NI Lorazepam (Ativan Injection -) 2 mg IVPB Q6H PRN PRN Reason: NAUSEA/ANXETY Last Admin: 08/06/18 17:36 Dose: 2 mg Metoclopramide HCl (Reglan Injection -) 10 mg IVPUSH Q6H PRN PRN Reason: NAUSEA AND/OR VOMITING Last Admin: 08/05/18 15:27 Dose: 10 mg Trimethobenzamide HCl (Tigan Injection -) 200 mg IM Q8H PRN PRN Reason: NAUSEA 48 year old woman with hx of CHF, DVT, DM, Polysubstance abuse, hx of renal failure requiring acute dialysis who presented with abd pain with N/V and foot pain and noted to have ANASTASIA. #ANASTASIA likely due to volume depletion +/- hemodynamic mediated ischemia in setting of ACEi and volume depletion vs. FSGS/ATN/AIN/RPG related to heroin use #Nausea and Vomiting #Polysubstance abuse #DM #HTN #Lactic acidosis now resolved Urine studies pending as pt has not made any ruine BUN/Cr rapidly worsening no emergent indication for APPLICATION INTEGRATION ARCHITECT at this time however if by tomorrow BUN > 100 will plan for acute dialysis etiology of ANASTASIA remains unclear but given recent heroin use will have to r/o RPGN/Acute GN will arrange for renal biopsy if renal function does not improve Serologic studies to be collected today Dose all meds for CrCl < 15 Alejandro Pace DO
[2018-08-06 18:44] LABS: COCAINE, UR NEGATIVE ng/ml (CUTOFF=300); METHADONE, UR NEGATIVE ng/ml (CUTOFF=300); OPIATES, URI NEGATIVE ng/ml (CUTOFF=300); PHENCYCLIDINE,URINE NEGATIVE ng/ml (CUTOFF=25); URINE AMPHETAMINES NEGATIVE ng/ml (CUTOFF=500); URINE BARBITURATES NEGATIVE ng/ml (CUTOFF=200); URINE BENZODIAZEPINES NEGATIVE ng/ml (CUTOFF=200)
[2018-08-06] MEDS: SODIUM CHLORIDE 1,000 ML IV SCH (19:10)
[2018-08-06] MEDS: BUPRENORPHINE/NALOXONE 2 MG/0.5 MG FILM PACKET SL SCH (21:12)
[2018-08-06] MEDS: HEPARIN NA (PORCINE) 5,000 UNITS/ML 1ML VIAL SQ SCH (21:13)
[2018-08-06] MEDS: METOCLOPRAMIDE HCL INJECTION 10 MG/2 ML VIAL IVPUSH PRN (21:19)
[2018-08-06 21:58] LABS: ANION GAP 14 MMOL/L (8-16); BLOOD UREA NITROGEN 64 mg/dL (7-18); CALCIUM 8.3 mg/dL (8.5-10.1); CHLORIDE 101 mmol/L (98-107); CO2 21 mmol/L (21-32); GLUCOSE,RANDOM 126 mg/dL (74-106); POTASSIUM 3.6 mmol/L (3.5-5.1); SODIUM 136 mmol/L (136-145)
[2018-08-06] MEDS ORDERED: LABETALOL HCL 200 MG TABLET (FP) PO SCH ×2 (22:00)
[2018-08-06 22:01] LABS: CREATININE 8.5 mg/dL (0.55-1.3)
[2018-08-07] MEDS: HEPARIN NA (PORCINE) 5,000 UNITS/ML 1ML VIAL SQ SCH ×2 (06:29→15:34)
[2018-08-07] MEDS: INSULIN SLIDING SCALE (NOVOLOG) 1 VIAL SQ SCH ×4 (06:35→22:29)
[2018-08-07] MEDS: LORazepam 2 MG/ML SDV VIAL IVPB PRN ×2 (06:41→17:13)
[2018-08-07 07:03] LABS: BASO % 0.6 % (0-2.0); EOS % 4.8 % (0-4.5); HEMATOCRIT 36.9 % (32.4-45.2); HEMOGLOBIN 12.3 GM/dL (10.7-15.3); LYMPH % 23.7 % (8-40); MCH 29.9 pg (25.7-33.7); MCHC 33.3 g/dl (32.0-36.0); MEAN CELL VOLUME 89.8 fl (80-96); MEAN PLT VOLUME 8.5 fl (7.5-11.1); MONO % 8.8 % (3.8-10.2); NEUT % 62.1 % (42.8-82.8); PLATELET COUNT 237 K/MM3 (134-434); RBC 4.11 M/mm3 (3.60-5.2); RDW 14.9 % (11.6-15.6); WHITE BLOOD COUNT 8.8 K/mm3 (4.0-10.0)
[2018-08-07 08:03] LABS: ALBUMIN 3.6 g/dl (3.4-5.0); ALK PHOS 67 U/L (45-117); ANION GAP 13 MMOL/L (8-16); BILIRUBIN,TOTAL 0.5 mg/dL (0.2-1); BLOOD UREA NITROGEN 71 mg/dL (7-18); CALCIUM 8.6 mg/dL (8.5-10.1); CHLORIDE 102 mmol/L (98-107); CO2 20 mmol/L (21-32); GLUCOSE,RANDOM 108 mg/dL (74-106); MAGNESIUM 3.3 mg/dL (1.8-2.4); PHOSPHOROUS 6.8 mg/dL (2.5-4.9); POTASSIUM 4.1 mmol/L (3.5-5.1); SGOT/AST 17 U/L (15-37); SGPT/ALT 21 U/L (13-61); SODIUM 136 mmol/L (136-145); TOT PROT 6.5 g/dl (6.4-8.2)
[2018-08-07 08:15] LABS: CREATININE 9.6 mg/dL (0.55-1.3)
[2018-08-07] MEDS: LABETALOL HCL 200 MG TABLET (FP) PO SCH ×2 (09:14→22:27)
[2018-08-07] MEDS: BUPRENORPHINE/NALOXONE 2 MG/0.5 MG FILM PACKET SL SCH (09:14)
[2018-08-07] MEDS: BACITRACIN 15 GM TUBE TOPICAL OINTMENT TP SCH (09:15)
[2018-08-07] MEDS: COLLAGENASE CLOSTRIDIUM HIST. 30 GRAMS TUBE TP SCH (09:15)
--- NOTE | 2018-08-07 10:13 | CON.ID ---
Consult Consult Specialty:: infectious diseases Referred by:: Reason for Consultation:: non healing diabetic wound,r/o osteo - History of Present Illness Chief Complaint: non healing ulcer of the left great toe History of Present Illness: 48 y/o F with PMH polysubstance abuse , DM, HTN, CHF, DVT (s/p IVC filter 2014, on lovenox), recent dx c.diff was tx with vanco 125mg [id number] , anxiety, depression admitted to the hospital with abd pain with n/v .patient was worked up and stabilized a patient also was found to have non healing ulcer of the great toe on left patient was seen by podiatry team her wound cx is not growing anything at this time patient does not have any sensation on the toe - History Source History Provided By: Patient Limitations to Obtaining History: No Limitations - Past Medical History 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 HGBA1c PENDING.) - Past Surgical History Past Surgical History: Yes: Cholecystectomy, Colonoscopy - Alcohol/Substance Use Hx Alcohol Use: No - Smoking History Smoking history: Never smoked Have you smoked in the past 12 months: Yes Aproximately how many cigarettes per day: 5 - Social History Usual Living Arrangement: With Parent ADL: Independent History of Recent Travel: No Home Medications - Allergies Allergies/Adverse Reactions: Allergies Allergy/AdvReac Type Severity Reaction Status Date / Time ondansetron [From Zofran] AdvReac Severe Verified 08/04/18 15:36 - Home Medications Home Medications: Ambulatory Orders Pregabalin [Lyrica] 100 mg PO TID 10/02/16 Zolpidem Tartrate [Ambien] 10 mg PO HS 01/23/18 traZODone HCL [Desyrel -] 100 mg PO HS 02/13/18 Quetiapine Fumarate [Seroquel -] 50 mg PO HS #30 tablet 05/17/18 Labetalol HCl [Normodyne -] 400 mg PO BID #120 tablet 06/19/18 Lisinopril 20 mg PO DAILY #30 tablet 06/21/18 Sitagliptin Phos/Metformin HCl [Janumet Xr 50-500 mg Tablet] 1 each PO DAILY # 30 tbmp.24hr 06/21/18 Buprenorphine/Naloxone [Suboxone 2Mg/0.5MG Sl Film -] 1 combo SL DAILY #7 packet MDD 1 06/26/18 Escitalopram Oxalate [Lexapro -] 5 mg PO DAILY 08/06/18 Family Disease History - Family Disease History Family Disease History: Diabetes: Father (DM, etoh), Mother, Brother, Heart Disease: Grandparent (massive CVA in his early 60s) Review of Systems - Review of Systems Constitutional: reports: No Symptoms Eyes: reports: No Symptoms HENT: reports: No Symptoms Neck: reports: No Symptoms Cardiovascular: reports: No Symptoms Respiratory: reports: No Symptoms Gastrointestinal: reports: No Symptoms Genitourinary: reports: No Symptoms Musculoskeletal: reports: No Symptoms Integumentary: reports: Wound Neurological: reports: Parasthesia (rt toe) Endocrine: reports: No Symptoms Hematology/Lymphatic: reports: No Symptoms Psychiatric: reports: No Symptoms Physical Exam Vital Signs: Vital Signs Temperature 97.8 F 08/07/18 06:00 Pulse Rate 80 08/07/18 10:00 Respiratory Rate 18 08/07/18 10:00 Blood Pressure 131/81 08/07/18 10:00 O2 Sat by Pulse Oximetry (%) 100 08/07/18 01:00 Constitutional: Yes: Well Nourished, No Distress, Calm Eyes: Yes: Conjunctiva Clear HENT: Yes: Atraumatic, Normocephalic Neck: Yes: Supple, Trachea Midline Cardiovascular: Yes: Regular Rate and Rhythm Respiratory: Yes: Regular, CTA Bilaterally Gastrointestinal: Yes: Normal Bowel Sounds, Soft Musculoskeletal: Yes: WNL Extremities: Yes: Other Wound/Incision: Yes: Dressing Removed, Other Neurological: Yes: Alert, Oriented Psychiatric: Yes: Alert, Oriented Labs: CBC, BMP 08/07/18 06:00 08/07/18 06:00 Imaging - Results Chest X-ray: Report Reviewed, Image Reviewed X-ray: Report Reviewed, Image Reviewed Cat Scan: Report Reviewed, Image Reviewed Assessment/Plan Problem List - Problems (1) Nausea & vomiting Code(s): R11.2 - NAUSEA WITH VOMITING, UNSPECIFIED (2) Hypovolemic shock Code(s): R57.1 - HYPOVOLEMIC SHOCK (3) SIRS (systemic inflammatory response syndrome) Code(s): R65.10 - SIRS OF NON-INFECTIOUS ORIGIN W/O ACUTE ORGAN DYSFUNCTION (4) ANASTASIA (acute kidney injury) Code(s): N17.9 - ACUTE KIDNEY FAILURE, UNSPECIFIED (5) Diabetic neuropathy associated with type 2 diabetes mellitus Code(s): E11.40 - TYPE 2 DIABETES MELLITUS WITH DIABETIC NEUROPATHY, UNSP Qualifiers: Diabetes mellitus complication detail: diabetic polyneuropathy Qualified Code(s): E11.42 - Type 2 diabetes mellitus with diabetic polyneuropathy (6) Morbid obesity Code(s): E66.01 - MORBID (SEVERE) OBESITY DUE TO EXCESS CALORIES (7) DVT (deep venous thrombosis) Code(s): I82.409 - ACUTE EMBOLISM AND THOMBOS UNSP DEEP VN UNSP LOWER EXTREMITY (8) Anxiety and depression Code(s): F41.8 - OTHER SPECIFIED ANXIETY DISORDERS (9) Hypertension Code(s): I10 - ESSENTIAL (PRIMARY) HYPERTENSION Qualifiers: Hypertension type: essential hypertension Qualified Code(s): I10 - Essential (primary) hypertension (10) Polysubstance (excluding opioids) dependence Code(s): F19.20 - OTHER PSYCHOACTIVE SUBSTANCE DEPENDENCE, UNCOMPLICATED (11) Diabetic ulcer of left great toe Code(s): E11.621 - TYPE 2 DIABETES MELLITUS WITH FOOT ULCER; L97.529 - NON- PRESSURE CHRONIC ULCER OTH PRT LEFT FOOT W UNSP SEVERITY patients wound evaluated i am worried about osteo plan will not start any abx wound care mri of the toe rest as per hte team
--- NOTE | 2018-08-07 12:08 | PN ---
Progress Note (short form) - Note Progress Note: Renal follow up for ANASTASIA Pt seen and examined at the bedside awake and alert no acute complaints foely with ~100cc of urine in it no sob, cough, cp, abd pain no fever or chills Vital Signs Temperature 97.8 F 08/07/18 06:00 Pulse Rate 80 08/07/18 10:00 Respiratory Rate 18 08/07/18 10:00 Blood Pressure 131/81 08/07/18 10:00 O2 Sat by Pulse Oximetry (%) 100 08/07/18 01:00 NAD awake and alert RRR, NO M/R Dec BS, no rales Obese, Mild tenderness Left foot in dressing, no edema no focal neurological defects CBC, BMP 08/07/18 06:00 08/07/18 06:00 Current Medications Bacitracin (Bacitracin -) 1 applic TP DAILY NI Last Admin: 08/07/18 09:15 Dose: 1 applic Buprenorphine/Naloxone (Suboxone 2mg/0.5mg Sl Film -) 1 each SL DAILY NI Last Admin: 08/07/18 09:14 Dose: 1 each Collagenase (Santyl -) 1 applic TP DAILY NI; Protocol Last Admin: 08/07/18 09:15 Dose: 1 applic Heparin Sodium (Porcine) (Heparin -) 5,000 unit SQ TID NI Last Admin: 08/07/18 06:29 Dose: 5,000 unit Famotidine/Sodium Chloride (Pepcid 20 Mg Premixed Ivpb -) 20 mg in 50 mls @ 100 mls/hr IVPB Q12H PRN PRN Reason: DYSPEPSIA Sodium Chloride (Normal Saline -) 1,000 mls @ 125 mls/hr IV ASDIR NI Last Admin: 08/06/18 19:10 Dose: Not Given Insulin Aspart (Novolog Vial Sliding Scale -) 1 vial SQ ACHS NI; Protocol Last Admin: 08/07/18 06:35 Dose: Not Given Labetalol HCl (Normodyne -) 400 mg PO BID NI Last Admin: 08/07/18 09:14 Dose: 400 mg Lorazepam (Ativan Injection -) 2 mg IVPB Q6H PRN PRN Reason: NAUSEA/ANXETY Last Admin: 08/07/18 06:41 Dose: 2 mg Metoclopramide HCl (Reglan Injection -) 10 mg IVPUSH Q6H PRN PRN Reason: NAUSEA AND/OR VOMITING Last Admin: 08/06/18 21:19 Dose: 10 mg Trimethobenzamide HCl (Tigan Injection -) 200 mg IM Q8H PRN PRN Reason: NAUSEA 48 year old woman with hx of CHF, DVT, DM, Polysubstance abuse, hx of renal failure requiring acute dialysis who presented with abd pain with N/V and foot pain and noted to have ANASTASIA. #ANASTASIA likely due to volume depletion +/- hemodynamic mediated ischemia in setting of ACEi and volume depletion vs. FSGS/ATN/AIN/RPG related to heroin use #Nausea and Vomiting #Polysubstance abuse #DM #HTN #Lactic acidosis now resolved Urine studies show FeNa of 12% and pt with UPCR ~5 will plan for renal biopsy tomorrow, discussed with IR hold Heparin and place NPO after midnight Will defer dialysis for now given no overt acidosis, hyperkalemia or uremia strict I and O Renal diet Avoid SOWMYA/ARB, NSAIDs, Fleets Dose all meds for CrCl < 10 Alejandro Pace DO
--- NOTE | 2018-08-07 13:24 | EKG ---
Test Reason : Blood Pressure : / mmHG Vent. Rate : 076 BPM Atrial Rate : 076 BPM P-R Int : 164 ms QRS Dur : 110 ms QT Int : 406 ms P-R-T Axes : 013 046 011 degrees QTc Int : 456 ms NORMAL SINUS RHYTHM NORMAL ECG WHEN COMPARED WITH ECG OF 05-AUG-2018 09:10, NONSPECIFIC T WAVE ABNORMALITY NO LONGER EVIDENT IN LATERAL LEADS Confirmed by YARA HARO MD ([id number]) on 08/07/2018 1:24:00 PM Referred By: YANN BLACKWOOD Confirmed By:YARA HARO MD
[2018-08-07] MEDS: SODIUM CHLORIDE 1,000 ML IV SCH (17:12)
--- NOTE | 2018-08-07 17:52 | PN ---
Physical Exam: SUBJECTIVE: Patient seen and examined at bedside this morning. No acute events overnight. Still oliguric. Patient has not complaints and reported feeling good with the Suboxone and Ativan. OBJECTIVE: Vital Signs Period Temp Pulse Resp BP Sys/Puente Pulse Ox Last 24 Hr 97.8 F-98.6 F 67-105 18-20 131-161/75-98 100 GENERAL: The patient is awake, alert, and fully oriented, in no acute distress. HEAD: Normal with no signs of trauma. EYES: PERRLA, EOMI, sclera anicteric, conjunctiva clear. ENT: Ears normal, nares patent, oropharynx clear without exudates, moist mucous membranes. NECK: Trachea midline, full range of motion, supple. LUNGS: Breath sounds equal, clear to auscultation bilaterally, decreased bilateral bases. HEART: Regular rate and rhythm, S1, S2 without murmur, rub or gallop. ABDOMEN: Soft, nontender, nondistended, normoactive bowel sounds, no guarding. EXTREMITIES: 2+ pulses, warm, well-perfused, no edema. +multiple scratch goel and ulcerations on b/l LE; LLE: +foul-smelling wound on left big toe. NEUROLOGICAL: Cranial nerves II through XII grossly intact. Normal speech, gait not observed. PSYCH: Normal mood, normal affect. SKIN: Warm, dry, normal turgor, no rashes or lesions noted Laboratory Results - last 24 hr 08/06/18 08/06/18 08/06/18 17:34 17:45 17:45 WBC RBC Hgb Hct MCV MCH MCHC RDW Plt Count MPV Absolute Neuts (auto) Neutrophils % Lymphocytes % Monocytes % Eosinophils % Basophils % Nucleated RBC % Sodium Potassium Chloride Carbon Dioxide Anion Gap BUN Creatinine Creat Clearance w eGFR POC Glucometer 100 Random Glucose Calcium Phosphorus Magnesium Total Bilirubin AST ALT Alkaline Phosphatase Total Protein Albumin U Random Total Protein Ur Random Sodium 88 Ur Random Urea Nitrogn Urine Creatinine Opiates Screen Negative Methadone Screen Negative Barbiturate Screen Negative Phencyclidine Screen Negative Ur Amphetamines Screen Negative MDMA (Ecstasy) Screen Positive A* Benzodiazepines Screen Negative Cocaine Screen Negative U Marijuana (THC) Screen Negative HIV 1&2 Antibody Screen HIV P24 Antigen 08/06/18 08/06/18 08/06/18 17:45 17:45 17:45 WBC RBC Hgb Hct MCV MCH MCHC RDW Plt Count MPV Absolute Neuts (auto) Neutrophils % Lymphocytes % Monocytes % Eosinophils % Basophils % Nucleated RBC % Sodium Potassium Chloride Carbon Dioxide Anion Gap BUN Creatinine Creat Clearance w eGFR POC Glucometer Random Glucose Calcium Phosphorus Magnesium Total Bilirubin AST ALT Alkaline Phosphatase Total Protein Albumin U Random Total Protein 240.6 H Ur Random Sodium Ur Random Urea Nitrogn 120 L Urine Creatinine 44.0 Opiates Screen Methadone Screen Barbiturate Screen Phencyclidine Screen Ur Amphetamines Screen MDMA (Ecstasy) Screen Benzodiazepines Screen Cocaine Screen U Marijuana (THC) Screen HIV 1&2 Antibody Screen HIV P24 Antigen 08/06/18 08/06/18 08/06/18 19:58 19:58 23:47 WBC RBC Hgb Hct MCV MCH MCHC RDW Plt Count MPV Absolute Neuts (auto) Neutrophils % Lymphocytes % Monocytes % Eosinophils % Basophils % Nucleated RBC % Sodium 136 Potassium 3.6 Chloride 101 Carbon Dioxide 21 Anion Gap 14 BUN 64 H Creatinine 8.5 H* Creat Clearance w eGFR 5.05 POC Glucometer 152 Random Glucose 126 H Calcium 8.3 L Phosphorus Magnesium Total Bilirubin AST ALT Alkaline Phosphatase Total Protein Albumin U Random Total Protein Ur Random Sodium Ur Random Urea Nitrogn Urine Creatinine Opiates Screen Methadone Screen Barbiturate Screen Phencyclidine Screen Ur Amphetamines Screen MDMA (Ecstasy) Screen Benzodiazepines Screen Cocaine Screen U Marijuana (THC) Screen HIV 1&2 Antibody Screen Negative HIV P24 Antigen Negative 08/07/18 08/07/18 08/07/18 06:00 06:00 06:33 WBC 8.8 RBC 4.11 Hgb 12.3 Hct 36.9 MCV 89.8 MCH 29.9 MCHC 33.3 RDW 14.9 Plt Count 237 MPV 8.5 Absolute Neuts (auto) 5.5 Neutrophils % 62.1 Lymphocytes % 23.7 Monocytes % 8.8 Eosinophils % 4.8 H Basophils % 0.6 Nucleated RBC % 0 Sodium 136 Potassium 4.1 Chloride 102 Carbon Dioxide 20 L Anion Gap 13 BUN 71 H Creatinine 9.6 H* Creat Clearance w eGFR 4.39 POC Glucometer 112 Random Glucose 108 H Calcium 8.6 Phosphorus 6.8 H Magnesium 3.3 H Total Bilirubin 0.5 AST 17 ALT 21 Alkaline Phosphatase 67 Total Protein 6.5 Albumin 3.6 U Random Total Protein Ur Random Sodium Ur Random Urea Nitrogn Urine Creatinine Opiates Screen Methadone Screen Barbiturate Screen Phencyclidine Screen Ur Amphetamines Screen MDMA (Ecstasy) Screen Benzodiazepines Screen Cocaine Screen U Marijuana (THC) Screen HIV 1&2 Antibody Screen HIV P24 Antigen 08/07/18 12:24 WBC RBC Hgb Hct MCV MCH MCHC RDW Plt Count MPV Absolute Neuts (auto) Neutrophils % Lymphocytes % Monocytes % Eosinophils % Basophils % Nucleated RBC % Sodium Potassium Chloride Carbon Dioxide Anion Gap BUN Creatinine Creat Clearance w eGFR POC Glucometer 144 Random Glucose Calcium Phosphorus Magnesium Total Bilirubin AST ALT Alkaline Phosphatase Total Protein Albumin U Random Total Protein Ur Random Sodium Ur Random Urea Nitrogn Urine Creatinine Opiates Screen Methadone Screen Barbiturate Screen Phencyclidine Screen Ur Amphetamines Screen MDMA (Ecstasy) Screen Benzodiazepines Screen Cocaine Screen U Marijuana (THC) Screen HIV 1&2 Antibody Screen HIV P24 Antigen Active Medications Generic Name Dose Route Start Last Admin Trade Name Freq PRN Reason Stop Dose Admin Bacitracin 1 applic 08/05/18 13:30 08/07/18 09:15 Bacitracin - TP 1 applic DAILY NI Administration Buprenorphine/Naloxone 1 each 08/06/18 18:00 08/07/18 09:14 Suboxone 2mg/0.5mg Sl Film - SL 1 each DAILY NI Administration Collagenase 1 applic 08/05/18 21:30 08/07/18 09:15 Santyl - TP 1 applic DAILY NI Administration Protocol Heparin Sodium (Porcine) 5,000 unit 08/06/18 22:00 08/07/18 15:34 Heparin - SQ 5,000 unit TID NI Administration Famotidine/Sodium Chloride 20 mg in 50 mls @ 100 mls/hr 08/04/18 23:13 Pepcid 20 Mg Premixed Ivpb - IVPB Q12H PRN DYSPEPSIA Sodium Chloride 1,000 mls @ 125 mls/hr 08/05/18 17:47 08/07/18 17:12 Normal Saline - IV 125 mls/hr ASDIR NI Administration Insulin Aspart 1 vial 08/05/18 07:00 08/07/18 17:35 Novolog Vial Sliding Scale - SQ Not Given ACHS NI Protocol Labetalol HCl 400 mg 08/07/18 10:00 08/07/18 09:14 Normodyne - PO 400 mg BID NI Administration Lorazepam 2 mg 08/05/18 20:16 08/07/18 17:13 Ativan Injection - IVPB 2 mg Q6H PRN Administration NAUSEA/ANXETY Metoclopramide HCl 10 mg 08/05/18 14:11 08/06/18 21:19 Reglan Injection - IVPUSH 10 mg Q6H PRN Administration NAUSEA AND/OR VOMITING Trimethobenzamide HCl 200 mg 08/04/18 23:14 Tigan Injection - IM Q8H PRN NAUSEA ASSESSMENT/PLAN: Patient is a 48 year old female with past medical history of polysubstance abuse (on Subaxone), DM, HTN, CHF, DVT (s/p IVC filter, s/p Lovenox, not compliant), recent C.diff infection treated with Vancomycin 125mg PO for 10days , anxiety, depression, presented with diffuse abdominal pain accompanied by nausea and vomiting of 3 days. #Oliguria likely 2/2 Acute kidney injury: unclear etiology -pre-renal from dehydration vs intrarenal 2/2 polysubstance abuse -BUN/Cr worsening today (71/9.6) -Continue IV fluids -Nephrology(Dr. Pace) consulted. Recommendations appreciated. 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 -Podiatry (Dr. Ly) consulted. Recommendations appreciated. -Awaiting wound culture. -Awaiting MRI -Vascular surgery (Dr. Knox) consulted. Recommendations appreciated. -Wound care with: wash ulcer with 1/2 NS/ 1/2 Peroxide, apply Bacitracin ointment, cover with 4x4 -Glucose control #Diarrhea likely 2/2 C. Diff Ag -Stool positive for C.diff antigen but negative toxin -ID (Dr. Bonner) consulted. #Opioid dependence -No more episodes of nausea or vomiting -COWS 0 -Ativan 2mg q6h for agitation -Will continue to monitor -Detox consulted (Dr. Urbano). Recommendations appreciated. -Restart Suboxone 2/0.5 mg SL daily prn. #DVT -Patient non-compliant with medications and follow-ups. -Last seen by Dr. Ruiz in May 2017, and has never followed up in the clinic -As per patient, last took Lovenox 1 month ago due to insurance problems, but upon med rec with pharmacy, has not picked up Lovenox >4 months. -Hematology (Dr. Man) consulted. Recommendations appreciated. -chronic DVT right distal SFV and popliteal vein. ( unchanged since 11/2017) -In view of provoked DVT and lengthy duration of lovenox, change to DVT prophylaxis with heparin. -Would repeat duplex in 2 weeks to assure stability of chronic clot. -It may be possible to discontinue a/c in future. #DM -A1c: 7.5 -Hold home medications -Insulin sliding scale implemented -BGM ACHS #HTN -currently elevated BP -Will resume home dose of Labetalol 400mg BID -Hold Lisinopril for now #Anxiety/Depression -Hold Seroquel, Trazodone with prolonged QTc (513) -Will continue to monitor #FEN -IV NS @ 125ml/hr -Electrolytes wnl, routine bmp monitoring -Renal diet #Prophylaxis -Heparin 5000units sq tid #Disposition -full code Visit type - Emergency Visit Emergency Visit: Yes ED Registration Date: 08/06/18 Care time: The patient presented to the Emergency Department on the above date and was hospitalized for further evaluation of their emergent condition. - New Patient This patient is new to me today: No - Critical Care Critical Care patient: No
--- NOTE | 2018-08-07 19:17 | PN ---
Teaching Attending Note Name of Resident: Nita Joseph ATTENDING PHYSICIAN STATEMENT I saw and evaluated the patient. I reviewed the resident's note and discussed the case with the resident. I agree with the resident's findings and plan as documented. SUBJECTIVE: No fever or chills. No abd pain , no RO . reports taking too many pills of labetalol by mistake before admission OBJECTIVE: NAD HEENT: poor dentition, MMM CV: RRR, no MRG Lungs: good air entry, no crackles or wheezes Abd: soft, ND, obese, NT Ext: no edema. L big toe with ulcer and no discharge Assessment/Plan: 48 y/o lady with h/o HTN, DM , depression /anxiety, PE/DVT, s/p IVCF, substance abuse ,chronic lower ext ulcers, and frequent hospitalizations who preented after heroin use and overdosing on labetalol . she was found to have ANASTASIA 1- ANASTASIA : likely due to heroin abuse, and HTN , in addition to DM and hypotension - cont to monitor Cr. - cont IVF - for renal Bx tomorrow - hold DVT px after MN 2- HTN: cont labetalol 3- Heroin abuse: - cont subaxone - dc reglan and ativan 4- Chronic DVT: h/o IVCF, not compliant with her AC. - cont off lovenox - repeat US in few weeks 5- DM : SSI HLOC
[2018-08-08 05:17] LABS: HEP.C VIRUS AB 0.1 s/co ratio (0.0-0.9)
[2018-08-08 07:19] LABS: HEMATOCRIT 33.8 % (32.4-45.2); HEMOGLOBIN 11.3 GM/dL (10.7-15.3); MCH 29.8 pg (25.7-33.7); MCHC 33.3 g/dl (32.0-36.0); MEAN CELL VOLUME 89.5 fl (80-96); PLATELET COUNT 189 K/MM3 (134-434); RBC 3.78 M/mm3 (3.60-5.2); RDW 14.5 % (11.6-15.6); WHITE BLOOD COUNT 8.6 K/mm3 (4.0-10.0)
[2018-08-08] MEDS: INSULIN SLIDING SCALE (NOVOLOG) 1 VIAL SQ SCH ×4 (07:34→22:09)
[2018-08-08 07:49] LABS: ANION GAP 15 MMOL/L (8-16); BLOOD UREA NITROGEN 79 mg/dL (7-18); CALCIUM 8.3 mg/dL (8.5-10.1); CHLORIDE 104 mmol/L (98-107); CO2 17 mmol/L (21-32); GLUCOSE,RANDOM 119 mg/dL (74-106); MAGNESIUM 2.9 mg/dL (1.8-2.4); PHOSPHOROUS 8.2 mg/dL (2.5-4.9); POTASSIUM 4.2 mmol/L (3.5-5.1); SODIUM 137 mmol/L (136-145)
[2018-08-08 08:11] LABS: CREATININE 11.1 mg/dL (0.55-1.3)
[2018-08-08] MEDS: LABETALOL HCL 200 MG TABLET (FP) PO SCH ×2 (10:01→21:49)
[2018-08-08] MEDS: COLLAGENASE CLOSTRIDIUM HIST. 30 GRAMS TUBE TP SCH (10:01)
[2018-08-08] MEDS: BUPRENORPHINE/NALOXONE 2 MG/0.5 MG FILM PACKET SL SCH (10:01)
[2018-08-08] MEDS: BACITRACIN 15 GM TUBE TOPICAL OINTMENT TP SCH (10:02)
[2018-08-08] MEDS ORDERED: LORazepam 2 MG/ML SDV VIAL IVPUSH ONE (10:30)
--- NOTE | 2018-08-08 13:51 | PN ---
Progress Note, Physician History of Present Illness: patient stable no new issues - Current Medication List Current Medications: Active Medications Amlodipine Besylate (Norvasc -) 5 mg PO DAILY [facility] Bacitracin (Bacitracin -) 1 applic TP DAILY [facility] Last Admin: 08/08/18 10:02 Dose: 1 applic Buprenorphine/Naloxone (Suboxone 2mg/0.5mg Sl Film -) 1 each SL DAILY [facility] Last Admin: 08/08/18 10:01 Dose: 1 each Collagenase (Santyl -) 1 applic TP DAILY [facility]; Protocol Last Admin: 08/08/18 10:01 Dose: 1 applic Heparin Sodium (Porcine) (Heparin -) 5,000 unit SQ TID [facility] Last Admin: 08/07/18 15:34 Dose: 5,000 unit Famotidine/Sodium Chloride (Pepcid 20 Mg Premixed Ivpb -) 20 mg in 50 mls @ 100 mls/hr IVPB Q12H PRN PRN Reason: DYSPEPSIA Sodium Chloride (Normal Saline -) 1,000 mls @ 125 mls/hr IV ASDIR [facility] Last Admin: 08/07/18 17:12 Dose: 125 mls/hr Insulin Aspart (Novolog Vial Sliding Scale -) 1 vial SQ ACHS [facility]; Protocol Last Admin: 08/08/18 13:17 Dose: Not Given Labetalol HCl (Normodyne -) 400 mg PO BID [facility] Last Admin: 08/08/18 10:01 Dose: 400 mg Trimethobenzamide HCl (Tigan Injection -) 200 mg IM Q8H PRN PRN Reason: NAUSEA - Objective Vital Signs: Vital Signs Temperature 97.8 F 08/08/18 13:32 Pulse Rate 80 08/08/18 13:32 Respiratory Rate 20 08/08/18 13:32 Blood Pressure 106/63 08/08/18 13:32 O2 Sat by Pulse Oximetry (%) 98 08/08/18 13:32 Constitutional: Yes: No Distress, Calm Cardiovascular: Yes: Regular Rate and Rhythm Respiratory: Yes: Regular, CTA Bilaterally Gastrointestinal: Yes: Normal Bowel Sounds, Soft Musculoskeletal: Yes: WNL Extremities: Yes: Other Neurological: Yes: Alert, Oriented Labs: CBC, BMP 08/08/18 06:30 08/08/18 06:30 INR, PTT INR 1.05 (0.83-1.09) 08/04/18 16:57 Assessment/Plan Problem List - Problems (1) Nausea & vomiting Code(s): R11.2 - NAUSEA WITH VOMITING, UNSPECIFIED (2) Hypovolemic shock Code(s): R57.1 - HYPOVOLEMIC SHOCK (3) SIRS (systemic inflammatory response syndrome) Code(s): R65.10 - SIRS OF NON-INFECTIOUS ORIGIN W/O ACUTE ORGAN DYSFUNCTION (4) ANASTASIA (acute kidney injury) Code(s): N17.9 - ACUTE KIDNEY FAILURE, UNSPECIFIED (5) Diabetic neuropathy associated with type 2 diabetes mellitus Code(s): E11.40 - TYPE 2 DIABETES MELLITUS WITH DIABETIC NEUROPATHY, UNSP Qualifiers: Diabetes mellitus complication detail: diabetic polyneuropathy Qualified Code(s): E11.42 - Type 2 diabetes mellitus with diabetic polyneuropathy (6) Morbid obesity Code(s): E66.01 - MORBID (SEVERE) OBESITY DUE TO EXCESS CALORIES (7) DVT (deep venous thrombosis) Code(s): I82.409 - ACUTE EMBOLISM AND THOMBOS UNSP DEEP VN UNSP LOWER EXTREMITY (8) Anxiety and depression Code(s): F41.8 - OTHER SPECIFIED ANXIETY DISORDERS (9) Hypertension Code(s): I10 - ESSENTIAL (PRIMARY) HYPERTENSION Qualifiers: Hypertension type: essential hypertension Qualified Code(s): I10 - Essential (primary) hypertension (10) Polysubstance (excluding opioids) dependence Code(s): F19.20 - OTHER PSYCHOACTIVE SUBSTANCE DEPENDENCE, UNCOMPLICATED (11) Diabetic ulcer of left great toe Code(s): E11.621 - TYPE 2 DIABETES MELLITUS WITH FOOT ULCER; L97.529 - NON- PRESSURE CHRONIC ULCER OTH PRT LEFT FOOT W UNSP SEVERITY patients wound evaluated i am worried about osteo plan will not start any abx no new issues rest as per the team
--- NOTE | 2018-08-08 14:13 | PN ---
Teaching Attending Note Name of Resident: Nita Joseph ATTENDING PHYSICIAN STATEMENT I saw and evaluated the patient. I reviewed the resident's note and discussed the case with the resident. I agree with the resident's findings and plan as documented. SUBJECTIVE:seen at 8 am . no fever or chills . No abd pain. anxious about renal bx today . no diarrhea. last BM yesterday am. OBJECTIVE: NAD CV: RRR, no MRG Lungs: CTAB Abd: soft, ND, obese, discomfort in upper quadrants and epigastric area Ext: no edema. L big toe with ulcer and no discharge Assessment/Plan: 48 y/o lady with h/o HTN, DM , depression /anxiety, PE/DVT, s/p IVCF, substance abuse ,chronic lower ext ulcers, and frequent hospitalizations who preented after heroin use and overdosing on labetalol . she was found to have ANASTASIA 1- AANSTASIA : likely due to heroin abuse, and HTN , in addition to DM and hypotension - Cr cont to worsen. for renal Bx today - d/w Dr. Pace, will dc IVF - also discussed adding phos binders 2- HTN: cont labetalol , add norvasc as we can't use lisinopril at this point 3- Heroin abuse: - cont subaxone 4- Chronic DVT: h/o IVCF, not compliant with her AC. - will not resume lovenox - repeat US in few weeks 5- DM : SSI 6- will confirm if she was on lexapro at home Dispo : OC
[2018-08-08] MEDS ORDERED: FUROSEMIDE 40 MG/4 ML INJECTABLE VIAL IVPUSH ONE (15:13)
--- NOTE | 2018-08-08 15:48 | PN ---
Progress Note (short form) - Note Progress Note: Renal follow up for ANASTASIA Pt seen and examined at the bedside no acute complaints s/p renal biopsy today has been on IVF urine output improved today Vital Signs Temperature 97.8 F 08/08/18 13:32 Pulse Rate 80 08/08/18 13:32 Respiratory Rate 20 08/08/18 13:32 Blood Pressure 106/63 08/08/18 13:32 O2 Sat by Pulse Oximetry (%) 98 08/08/18 13:32 Intake & Output 08/05/18 08/06/18 08/07/18 08/08/18 23:59 23:59 23:59 23:59 Intake Total 425 1850 1999 2049 Output Total 10 150 750 Balance 425 1840 1850 1300 Weight 118.66 kg 118.388 kg 126.462 kg NAD awake and alert RRR, NO M/R Dec BS, no rales Obese, Mild tenderness Trace edema in LE CBC, BMP 08/08/18 06:30 08/08/18 06:30 Current Medications Amlodipine Besylate (Norvasc -) 5 mg PO DAILY [facility] Bacitracin (Bacitracin -) 1 applic TP DAILY [facility] Last Admin: 08/08/18 10:02 Dose: 1 applic Buprenorphine/Naloxone (Suboxone 2mg/0.5mg Sl Film -) 1 each SL DAILY [facility] Last Admin: 08/08/18 10:01 Dose: 1 each Calcium Acetate (Phoslo -) 667 mg PO TIDCM [facility] Collagenase (Santyl -) 1 applic TP DAILY [facility]; Protocol Last Admin: 08/08/18 10:01 Dose: 1 applic Heparin Sodium (Porcine) (Heparin -) 5,000 unit SQ TID [facility] Last Admin: 08/07/18 15:34 Dose: 5,000 unit Famotidine/Sodium Chloride (Pepcid 20 Mg Premixed Ivpb -) 20 mg in 50 mls @ 100 mls/hr IVPB Q12H PRN PRN Reason: DYSPEPSIA Insulin Aspart (Novolog Vial Sliding Scale -) 1 vial SQ ACHS [facility]; Protocol Last Admin: 08/08/18 13:17 Dose: Not Given Labetalol HCl (Normodyne -) 400 mg PO BID [facility] Last Admin: 08/08/18 10:01 Dose: 400 mg Trimethobenzamide HCl (Tigan Injection -) 200 mg IM Q8H PRN PRN Reason: NAUSEA 48 year old woman with hx of CHF, DVT, DM, Polysubstance abuse, hx of renal failure requiring acute dialysis who presented with abd pain with N/V and foot pain and noted to have ANASTASIA. #ANASTASIA likely due to volume depletion +/- hemodynamic mediated ischemia in setting of ACEi and volume depletion vs. FSGS/ATN/AIN/RPG related to heroin use #Nausea and Vomiting #Polysubstance abuse #DM #HTN #Lactic acidosis now resolved Urine studies show FeNa of 12% and pt with UPCR ~5 s/p renal biopsy today hold Heparin and place NPO after midnight HIV and Hepatitis negative ARIES, ANCA, Anti-GBM pending likely to have preliminary result of biopsy by Sunday Will defer dialysis for now given no overt acidosis, hyperkalemia or uremia strict I and O d/c IVF aurelia give Lasix trail to improve urine output Renal diet Dose all meds for CrCl < 10 Alejandro Pace DO
[2018-08-08] MEDS: CALCIUM ACETATE 667 MG CAPSULE (FP) PO SCH (16:49)
--- NOTE | 2018-08-08 17:05 | PN ---
Physical Exam: SUBJECTIVE: Patient seen and examined at bedside this morning. No acute events overnight. Patient has no complaints today. UO: 500ml for 24 hours. OBJECTIVE: Vital Signs Period Temp Pulse Resp BP Sys/Puente Pulse Ox Last 24 Hr 97.6 F-98.9 F 69-87 14-20 106-157/63-107 95-98 GENERAL: The patient is awake, alert, and fully oriented, in no acute distress. HEAD: Normal with no signs of trauma. EYES: PERRLA, EOMI, sclera anicteric, conjunctiva clear. ENT: Ears normal, nares patent, oropharynx clear without exudates, moist mucous membranes. NECK: Trachea midline, full range of motion, supple. LUNGS: Breath sounds equal, clear to auscultation bilaterally, decreased bilateral bases. HEART: Regular rate and rhythm, S1, S2 without murmur, rub or gallop. ABDOMEN: Soft, nontender, nondistended, normoactive bowel sounds, no guarding. EXTREMITIES: 2+ pulses, warm, well-perfused, no edema. +multiple scratch goel and ulcerations on b/l LE; LLE: +wound on left big toe. NEUROLOGICAL: Cranial nerves II through XII grossly intact. Normal speech, gait not observed. PSYCH: Normal mood, normal affect. SKIN: Warm, dry, normal turgor, no rashes or lesions noted Laboratory Results - last 24 hr 08/06/18 08/07/18 08/07/18 20:00 17:23 22:26 WBC RBC Hgb Hct MCV MCH MCHC RDW Plt Count MPV Sodium Potassium Chloride Carbon Dioxide Anion Gap BUN Creatinine Creat Clearance w eGFR POC Glucometer 129 157 Random Glucose Calcium Phosphorus Magnesium Hepatitis A IgM Ab Negative Hep Bs Antigen Negative Hep B Core IgM Ab Negative Hepatitis C Antibody 0.1 08/08/18 08/08/18 08/08/18 05:56 06:30 06:30 WBC 8.6 RBC 3.78 Hgb 11.3 Hct 33.8 MCV 89.5 MCH 29.8 MCHC 33.3 RDW 14.5 Plt Count 189 D MPV 9.0 Sodium 137 Potassium 4.2 Chloride 104 Carbon Dioxide 17 L Anion Gap 15 BUN 79 H Creatinine 11.1 H* Creat Clearance w eGFR 3.71 POC Glucometer 132 Random Glucose 119 H Calcium 8.3 L Phosphorus 8.2 H Magnesium 2.9 H Hepatitis A IgM Ab Hep Bs Antigen Hep B Core IgM Ab Hepatitis C Antibody 08/08/18 13:15 WBC RBC Hgb Hct MCV MCH MCHC RDW Plt Count MPV Sodium Potassium Chloride Carbon Dioxide Anion Gap BUN Creatinine Creat Clearance w eGFR POC Glucometer 118 Random Glucose Calcium Phosphorus Magnesium Hepatitis A IgM Ab Hep Bs Antigen Hep B Core IgM Ab Hepatitis C Antibody Active Medications Generic Name Dose Route Start Last Admin Trade Name Freq PRN Reason Stop Dose Admin Amlodipine Besylate 5 mg 08/09/18 10:00 Norvasc - PO DAILY [facility] Bacitracin 1 applic 08/05/18 13:30 08/08/18 10:02 Bacitracin - TP 1 applic DAILY [facility] Administration Buprenorphine/Naloxone 1 each 08/06/18 18:00 08/08/18 10:01 Suboxone 2mg/0.5mg Sl Film - SL 1 each DAILY [facility] Administration Calcium Acetate 667 mg 08/08/18 17:30 08/08/18 16:49 Phoslo - PO 667 mg TIDCM [facility] Administration Collagenase 1 applic 08/05/18 21:30 08/08/18 10:01 Santyl - TP 1 applic DAILY [facility] Administration Protocol Escitalopram Oxalate 5 mg 08/09/18 10:00 Lexapro - PO DAILY [facility] Heparin Sodium (Porcine) 5,000 unit 08/06/18 22:00 08/07/18 15:34 Heparin - SQ 5,000 unit TID [facility] Administration Famotidine/Sodium Chloride 20 mg in 50 mls @ 100 mls/hr 08/04/18 23:13 Pepcid 20 Mg Premixed Ivpb - IVPB Q12H PRN DYSPEPSIA Insulin Aspart 1 vial 08/05/18 07:00 08/08/18 16:53 Novolog Vial Sliding Scale - SQ Not Given ACHS [facility] Protocol Labetalol HCl 400 mg 08/07/18 10:00 08/08/18 10:01 Normodyne - PO 400 mg BID [facility] Administration Trimethobenzamide HCl 200 mg 08/04/18 23:14 Tigan Injection - IM Q8H PRN NAUSEA ASSESSMENT/PLAN: Patient is a 48 year old female with past medical history of polysubstance abuse (on Subaxone), DM, HTN, CHF, DVT (s/p IVC filter, s/p Lovenox, not compliant), recent C.diff infection treated with Vancomycin 125mg PO for 10days , anxiety, depression, presented with diffuse abdominal pain accompanied by nausea and vomiting of 3 days. #Oliguria likely 2/2 Acute kidney injury: unclear etiology -pre-renal from dehydration vs intrarenal 2/2 polysubstance abuse -BUN/Cr worsening today 71/9.6 --> 79/11.1 -Discontinue IV fluids. Has been on IVF but has not improved. -Nephrology(Dr. Pace) consulted. Recommendations appreciated. -FeNa 12%, UPCR of 5 -Renal biopsy done today, likely preliminary result by Sunday -Strict I&O -Will give lasix trail to improve urine output -No emergent indication for [employer] at this time given no overt acidosis, hyperkalemia or uremia -Avoid ACEI/ARBs, NSAIDs, Fleets -Dose all meds for CrCl <10 #Left great toe wound -MRI without contrast: Focal fluid superficial to the skin surface along the plantar medial aspect of the distal phalanx of the first toe question early due to open wound. Faint bone marrow edema of the mid-distal phalanx, however, this could be due to motion artifact or due to bony reaction to the adjacent infectious process. Early osteomyelitis cannot be entirely excluded. Follow-up MRI recommended. -Podiatry (Dr. Ly) consulted. Recommendations appreciated. -Wound culture - no growth -Vascular surgery (Dr. Knox) consulted. Recommendations appreciated. -Wound care with: wash ulcer with 1/2 NS/ 1/2 Peroxide, apply Bacitracin ointment, cover with 4x4 -Glucose control #Diarrhea: resolved -Stool positive for C.diff antigen but negative toxin -ID (Dr. Bonner) consulted. #Opioid dependence -No more episodes of nausea or vomiting -COWS 0 -Discontinue Ativan -Will continue to monitor -Patient on Seroquel at home, but since has no symptoms of withdrawal, will hold it for now. -May give home dose Seroquel for agitation. -Detox consulted (Dr. Urbano). Recommendations appreciated. -Restart Suboxone 2/0.5 mg SL daily prn. #DVT -Patient non-compliant with medications and follow-ups. -Last seen by Dr. Ruiz in May 2017, and has never followed up in the clinic -As per patient, last took Lovenox 1 month ago due to insurance problems, but upon med rec with pharmacy, has not picked up Lovenox >4 months. -Hematology (Dr. Man) consulted. Recommendations appreciated. -chronic DVT right distal SFV and popliteal vein. ( unchanged since 11/2017) -In view of provoked DVT and lengthy duration of lovenox, change to DVT prophylaxis with heparin. -Would repeat duplex in 2 weeks to assure stability of chronic clot. -It may be possible to discontinue a/c in future. #DM -A1c: 7.5 -Hold home medications -Insulin sliding scale implemented -BGM ACHS #HTN -currently elevated BP -Will resume home dose of Labetalol 400mg BID -Amlodipine 5 mg added. -Hold Lisinopril for now -Will continue to monitor #Anxiety/Depression -Hold Seroquel, Trazodone with prolonged QTc (513) -Will continue to monitor #FEN -Not on any standing fluids. -Electrolytes wnl, routine bmp monitoring -Renal diet #Prophylaxis -Heparin 5000units sq tid #Disposition -full code Visit type - Emergency Visit Emergency Visit: Yes ED Registration Date: 08/06/18 Care time: The patient presented to the Emergency Department on the above date and was hospitalized for further evaluation of their emergent condition. - New Patient This patient is new to me today: No - Critical Care Critical Care patient: No
[2018-08-08] MEDS ORDERED: QUEtiapine FUMARATE 50 MG TABLET PO ONE (20:51)
[2018-08-08] MEDS ORDERED: QUEtiapine FUMARATE 25 MG TABLET (FP) ONE (21:47)
[2018-08-09] MEDS: INSULIN SLIDING SCALE (NOVOLOG) 1 VIAL SQ SCH ×4 (06:32→22:07)
[2018-08-09 08:28] LABS: ANION GAP 16 MMOL/L (8-16); BLOOD UREA NITROGEN 85 mg/dL (7-18); CALCIUM 7.9 mg/dL (8.5-10.1); CHLORIDE 104 mmol/L (98-107); CO2 15 mmol/L (21-32); GLUCOSE,RANDOM 106 mg/dL (74-106); MAGNESIUM 2.6 mg/dL (1.8-2.4); PHOSPHOROUS 8.2 mg/dL (2.5-4.9); POTASSIUM 4.1 mmol/L (3.5-5.1); SODIUM 136 mmol/L (136-145)
[2018-08-09 08:49] LABS: CREATININE 13.2 mg/dL (0.55-1.3)
[2018-08-09] MEDS: CALCIUM ACETATE 667 MG CAPSULE (FP) PO SCH ×3 (08:58→16:40)
[2018-08-09] MEDS: ESCITALOPRAM OXALATE 10 MG TABLET (FP) PO SCH (09:04)
[2018-08-09] MEDS: COLLAGENASE CLOSTRIDIUM HIST. 30 GRAMS TUBE TP SCH (09:04)
[2018-08-09] MEDS: LABETALOL HCL 200 MG TABLET (FP) PO SCH ×2 (09:04→22:07)
[2018-08-09] MEDS: BACITRACIN 15 GM TUBE TOPICAL OINTMENT TP SCH (09:04)
[2018-08-09] MEDS: BUPRENORPHINE/NALOXONE 2 MG/0.5 MG FILM PACKET SL SCH (09:04)
[2018-08-09] MEDS ORDERED: amLODIPine BESYLATE 5 MG TABLET (FP) PO SCH (10:00)
[2018-08-09] MEDS ORDERED: PATIENT'S OWN MEDICATION (NON-FORMULARY) (Escitalopram Oxalate [Lexapro -] 5 MG) PO SCH (10:00)
[2018-08-09] MEDS: ACETAMINOPHEN 650 MG/20.3 ML ORAL SOLUTION (CUPS) PO PRN ×3 (10:03→23:10)
--- NOTE | 2018-08-09 10:07 | PN ---
Progress Note, Physician History of Present Illness: patient is stable no new issues mri noted imaging seen - Current Medication List Current Medications: Active Medications Acetaminophen (Tylenol Oral Solution -) 650 mg PO Q6H PRN PRN Reason: PAIN OR FEVER Last Admin: 08/09/18 10:03 Dose: 650 mg Amlodipine Besylate (Norvasc -) 5 mg PO DAILY [facility] Last Admin: 08/09/18 09:04 Dose: 5 mg Bacitracin (Bacitracin -) 1 applic TP DAILY [facility] Last Admin: 08/09/18 09:04 Dose: 1 applic Buprenorphine/Naloxone (Suboxone 2mg/0.5mg Sl Film -) 1 each SL DAILY [facility] Last Admin: 08/09/18 09:04 Dose: 1 each Calcium Acetate (Phoslo -) 667 mg PO TIDCM [facility] Last Admin: 08/09/18 08:58 Dose: 667 mg Collagenase (Santyl -) 1 applic TP DAILY [facility]; Protocol Last Admin: 08/09/18 09:04 Dose: 1 applic Escitalopram Oxalate (Lexapro -) 5 mg PO DAILY [facility] Last Admin: 08/09/18 09:04 Dose: 5 mg Heparin Sodium (Porcine) (Heparin -) 5,000 unit SQ TID [facility] Last Admin: 08/07/18 15:34 Dose: 5,000 unit Famotidine/Sodium Chloride (Pepcid 20 Mg Premixed Ivpb -) 20 mg in 50 mls @ 100 mls/hr IVPB Q12H PRN PRN Reason: DYSPEPSIA Insulin Aspart (Novolog Vial Sliding Scale -) 1 vial SQ ACHS [facility]; Protocol Last Admin: 08/09/18 06:32 Dose: Not Given Labetalol HCl (Normodyne -) 400 mg PO BID [facility] Last Admin: 08/09/18 09:04 Dose: 400 mg Trimethobenzamide HCl (Tigan Injection -) 200 mg IM Q8H PRN PRN Reason: NAUSEA - Objective Vital Signs: Vital Signs Temperature 98.3 F 08/09/18 05:54 Pulse Rate 85 08/09/18 05:54 Respiratory Rate 20 08/09/18 05:54 Blood Pressure 136/87 08/09/18 05:54 O2 Sat by Pulse Oximetry (%) 98 08/08/18 21:00 Constitutional: Yes: No Distress, Calm, Obese Cardiovascular: Yes: Regular Rate and Rhythm Respiratory: Yes: Regular, CTA Bilaterally Gastrointestinal: Yes: Normal Bowel Sounds, Soft Musculoskeletal: Yes: Other Extremities: Yes: Other Wound/Incision: Yes: Clean/Dry Neurological: Yes: Alert, Oriented Psychiatric: Yes: Alert, Oriented Labs: CBC, BMP 08/08/18 06:30 08/09/18 06:25 INR, PTT INR 1.05 (0.83-1.09) 08/04/18 16:57 Assessment/Plan Problem List - Problems (1) Nausea & vomiting Code(s): R11.2 - NAUSEA WITH VOMITING, UNSPECIFIED (2) Hypovolemic shock Code(s): R57.1 - HYPOVOLEMIC SHOCK (3) SIRS (systemic inflammatory response syndrome) Code(s): R65.10 - SIRS OF NON-INFECTIOUS ORIGIN W/O ACUTE ORGAN DYSFUNCTION (4) ANASTASIA (acute kidney injury) Code(s): N17.9 - ACUTE KIDNEY FAILURE, UNSPECIFIED (5) Diabetic neuropathy associated with type 2 diabetes mellitus Code(s): E11.40 - TYPE 2 DIABETES MELLITUS WITH DIABETIC NEUROPATHY, UNSP Qualifiers: Diabetes mellitus complication detail: diabetic polyneuropathy Qualified Code(s): E11.42 - Type 2 diabetes mellitus with diabetic polyneuropathy (6) Morbid obesity Code(s): E66.01 - MORBID (SEVERE) OBESITY DUE TO EXCESS CALORIES (7) DVT (deep venous thrombosis) Code(s): I82.409 - ACUTE EMBOLISM AND THOMBOS UNSP DEEP VN UNSP LOWER EXTREMITY (8) Anxiety and depression Code(s): F41.8 - OTHER SPECIFIED ANXIETY DISORDERS (9) Hypertension Code(s): I10 - ESSENTIAL (PRIMARY) HYPERTENSION Qualifiers: Hypertension type: essential hypertension Qualified Code(s): I10 - Essential (primary) hypertension (10) Polysubstance (excluding opioids) dependence Code(s): F19.20 - OTHER PSYCHOACTIVE SUBSTANCE DEPENDENCE, UNCOMPLICATED (11) Diabetic ulcer of left great toe Code(s): E11.621 - TYPE 2 DIABETES MELLITUS WITH FOOT ULCER; L97.529 - NON- PRESSURE CHRONIC ULCER OTH PRT LEFT FOOT W UNSP SEVERITY patients wound evaluated i am worried about osteo plan mri noted will not start patient on any abx will need repeat imaging studies after 3 months rest continue current mgmt
[2018-08-09] MEDS ORDERED: SODIUM CHLORIDE 250 ML IV PRN (11:14)
[2018-08-09] MEDS ORDERED: FUROSEMIDE 40 MG/4 ML INJECTABLE VIAL IVPUSH ONE (11:15)
--- NOTE | 2018-08-09 11:21 | PN ---
Progress Note (short form) - Note Progress Note: Renal follow up for ANASTASIA Pt seen and examined at the bedside feels weak and groggy denies any sop, cp, N/V/D making urine in mckoy Vital Signs Temperature 98.3 F 08/09/18 05:54 Pulse Rate 85 08/09/18 05:54 Respiratory Rate 20 08/09/18 05:54 Blood Pressure 136/87 08/09/18 05:54 O2 Sat by Pulse Oximetry (%) 98 08/08/18 21:00 NAD awake and alert RRR, NO M/R Dec BS, no rales Obese, Mild tenderness Trace edema in LE CBC, BMP 08/08/18 06:30 08/09/18 06:25 Laboratory Tests 08/05/18 08/09/18 05:50 06:25 Calcium 8.8 7.9 L Phosphorus 3.3 8.2 H Magnesium 3.1 H 2.6 H Current Medications Acetaminophen (Tylenol Oral Solution -) 650 mg PO Q6H PRN PRN Reason: PAIN OR FEVER Last Admin: 08/09/18 10:03 Dose: 650 mg Amlodipine Besylate (Norvasc -) 5 mg PO DAILY [facility] Last Admin: 08/09/18 09:04 Dose: 5 mg Bacitracin (Bacitracin -) 1 applic TP DAILY [facility] Last Admin: 08/09/18 09:04 Dose: 1 applic Buprenorphine/Naloxone (Suboxone 2mg/0.5mg Sl Film -) 1 each SL DAILY [facility] Last Admin: 08/09/18 09:04 Dose: 1 each Calcium Acetate (Phoslo -) 667 mg PO TIDCM [facility] Last Admin: 08/09/18 08:58 Dose: 667 mg Collagenase (Santyl -) 1 applic TP DAILY [facility]; Protocol Last Admin: 08/09/18 09:04 Dose: 1 applic Escitalopram Oxalate (Lexapro -) 5 mg PO DAILY [facility] Last Admin: 08/09/18 09:04 Dose: 5 mg Furosemide (Lasix Injection -) 40 mg IVPUSH ONCE ONE Stop: 08/09/18 11:16 Heparin Sodium (Porcine) (Heparin -) 5,000 unit SQ TID [facility] Last Admin: 08/07/18 15:34 Dose: 5,000 unit Famotidine/Sodium Chloride (Pepcid 20 Mg Premixed Ivpb -) 20 mg in 50 mls @ 100 mls/hr IVPB Q12H PRN PRN Reason: DYSPEPSIA Sodium Chloride (Normal Saline -) 250 mls @ 3,000 mls/hr IV PRN PRN PRN Reason: Hypotension during Dialysis Stop: 08/10/18 11:14 Insulin Aspart (Novolog Vial Sliding Scale -) 1 vial SQ ACHS [facility]; Protocol Last Admin: 08/09/18 06:32 Dose: Not Given Labetalol HCl (Normodyne -) 400 mg PO BID [facility] Last Admin: 08/09/18 09:04 Dose: 400 mg Trimethobenzamide HCl (Tigan Injection -) 200 mg IM Q8H PRN PRN Reason: NAUSEA 48 year old woman with hx of CHF, DVT, DM, Polysubstance abuse, hx of renal failure requiring acute dialysis who presented with abd pain with N/V and foot pain and noted to have ANASTASIA. #ANASTASIA likely due to ATN vs. FSGS/ATN/AIN/RPG related to heroin use #Nausea and Vomiting #Polysubstance abuse #DM #HTN #Lactic acidosis now resolved will require acute dialysis today as pt w/o improvement in renal function and worsening acidosis risks and benifits of dialysis explained to the patient and pt verbalized understanding and informed consent was obtained FeNa is consistent with tubular injury HIV, Hepatitis, ARIES, Anti-GBM negative ANCA's pending expect preliminary biopsy result this evening or by Sunday morning Continue to challenge with Lasix, if pt is non-oliguric today as well can discontinue mckoy catheter Alejandro Pace DO
[2018-08-09] MEDS: HEPARIN NA (PORCINE) 5,000 UNITS/ML 1ML VIAL SQ SCH ×2 (13:06→22:07)
--- NOTE | 2018-08-09 13:07 | PROC ---
Central Line Insertion Indication: Other (dialysis) Risks and Benefits Explained: Yes Consent on Chart: Yes Central Line: Dialysis Cath, Dual Lumen Anesthesia: 1% Lidocaine Sterile Technique: Yes Ultrasound Guided Assistance: Yes Position: Right Internal Jugular Post Insertion: Yes: Chest X-Ray Ordered Sterile Dressing Applied: Yes
--- NOTE | 2018-08-09 15:17 | PN ---
Progress Note, Physician History of Present Illness: patient seen and examined at bedside. no complaint. perm cath inserted for emergent dialysis. - Current Medication List Current Medications: Active Medications Acetaminophen (Tylenol Oral Solution -) 650 mg PO Q6H PRN PRN Reason: PAIN OR FEVER Last Admin: 08/09/18 10:03 Dose: 650 mg Amlodipine Besylate (Norvasc -) 5 mg PO DAILY [facility] Last Admin: 08/09/18 09:04 Dose: 5 mg Bacitracin (Bacitracin -) 1 applic TP DAILY [facility] Last Admin: 08/09/18 09:04 Dose: 1 applic Buprenorphine/Naloxone (Suboxone 2mg/0.5mg Sl Film -) 1 each SL DAILY [facility] Last Admin: 08/09/18 09:04 Dose: 1 each Calcium Acetate (Phoslo -) 667 mg PO TIDCM [facility] Last Admin: 08/09/18 11:36 Dose: 667 mg Collagenase (Santyl -) 1 applic TP DAILY [facility]; Protocol Last Admin: 08/09/18 09:04 Dose: 1 applic Escitalopram Oxalate (Lexapro -) 5 mg PO DAILY [facility] Last Admin: 08/09/18 09:04 Dose: 5 mg Heparin Sodium (Porcine) (Heparin -) 5,000 unit SQ TID [facility] Last Admin: 08/09/18 13:06 Dose: Not Given Famotidine/Sodium Chloride (Pepcid 20 Mg Premixed Ivpb -) 20 mg in 50 mls @ 100 mls/hr IVPB Q12H PRN PRN Reason: DYSPEPSIA Sodium Chloride (Normal Saline -) 250 mls @ 3,000 mls/hr IV PRN PRN PRN Reason: Hypotension during Dialysis Stop: 08/10/18 11:14 Insulin Aspart (Novolog Vial Sliding Scale -) 1 vial SQ ACHS [facility]; Protocol Last Admin: 08/09/18 11:44 Dose: Not Given Labetalol HCl (Normodyne -) 400 mg PO BID [facility] Last Admin: 08/09/18 09:04 Dose: 400 mg Trimethobenzamide HCl (Tigan Injection -) 200 mg IM Q8H PRN PRN Reason: NAUSEA - Objective Vital Signs: Vital Signs Temperature 97.9 F 08/09/18 10:00 Pulse Rate 88 08/09/18 10:00 Respiratory Rate 20 08/09/18 10:00 Blood Pressure 171/95 H 08/09/18 10:00 O2 Sat by Pulse Oximetry (%) 95 08/09/18 09:00 Constitutional: Yes: No Distress, Calm Eyes: Yes: Conjunctiva Clear, EOM Intact Cardiovascular: Yes: Regular Rate and Rhythm, S1, S2. No: Murmur Respiratory: Yes: CTA Bilaterally, Diminished Gastrointestinal: Yes: Normal Bowel Sounds, Soft, Abdomen, Obese. No: Tenderness Edema: No Neurological: Yes: Alert, Oriented Labs: CBC, BMP 08/08/18 06:30 08/09/18 06:25 INR, PTT INR 1.05 (0.83-1.09) 08/04/18 16:57 Impression/Plan Impression/Plan: 48 yo F h/o polysubstance abuse, DM, HTN, CHF, DVT (s/p IVC filter, s/p Lovenox , not compliant), recent C.diff infection admitted for abdominal pain w/ nausea and vomiting, now being seen by hemonc service for h/o DVT and PE. h/o DVT w/ PE - case discussed with Dr. Conner, outpatient AC choice would be limited to coumadin due to worsening Cr - patient can follow up with Dr. Duque as outpatient for thrombophilia workup Enzo Martinez PGY3 Visit type - Emergency Visit Emergency Visit: No - New Patient This patient is new to me today: No - Critical Care Critical Care patient: No - Discharge Referral Referred to [facility] Med P.C.: No
--- NOTE | 2018-08-09 15:55 | PN ---
Progress Note (short form) - Note Progress Note: Chest x-ray reviewed, shiley catheter in IJ. No evidence of pnuemothorax. Official read pending. Will use for HD today. Alejandro Pace DO
--- NOTE | 2018-08-09 18:48 | PN ---
Teaching Attending Note Name of Resident: Raji Felix ATTENDING PHYSICIAN STATEMENT I saw and evaluated the patient. I reviewed the resident's note and discussed the case with the resident. I agree with the resident's findings and plan as documented. SUBJECTIVE: No fever or chills. no abd pain. had RO . requested ativan OBJECTIVE: NAD CV: RRR, no MRG Lungs: CTAB Ext: no edema. L big toe ulcer not examined today Assessment/Plan: 48 y/o lady with h/o HTN, DM , depression /anxiety, PE/DVT, s/p IVCF, substance abuse ,chronic lower ext ulcers, and frequent hospitalizations who preented after heroin use and overdosing on labetalol . she was found to have ANASTASIA 1- ANASTASIA: likely due to heroin abuse, and HTN, in addition to DM and hypotension - HD today - received lasix yesterday - follow cr tomorrow 2- HTN: cont labetalol , and norvasc 3- Heroin abuse: - cont subaxone 4- Chronic DVT: h/o IVCF, not compliant with her AC. - will not resume lovenox - repeat US in few weeks 5- DM : SSI 6- psych ; resume lexapro, and seroquel . she was advised that ativan is not appropriate for her and not needed . Dispo : OC
--- NOTE | 2018-08-09 18:53 | PN ---
Physical Exam: SUBJECTIVE: Patient seen and examined at bedside this morning. Overnight, patient was noted to be depressed and crying. SHe was given Seroquel and afterwards was able to sleep. Today, patient was reporting headache, relieved by Tylenol. UO: 950ml overnight. OBJECTIVE: Vital Signs Period Temp Pulse Resp BP Sys/Puente Pulse Ox Last 24 Hr 97.9 F-98.3 F 62-88 18-20 127-171/67-109 95-98 GENERAL: The patient is awake, alert, and fully oriented, in no acute distress. HEAD: Normal with no signs of trauma. EYES: PERRLA, EOMI, sclera anicteric, conjunctiva clear. ENT: Ears normal, nares patent, oropharynx clear without exudates, moist mucous membranes. NECK: Trachea midline, full range of motion, supple. LUNGS: Breath sounds equal, clear to auscultation bilaterally, decreased bilateral bases. HEART: Regular rate and rhythm, S1, S2 without murmur, rub or gallop. ABDOMEN: Soft, nontender, nondistended, normoactive bowel sounds, no guarding. EXTREMITIES: 2+ pulses, warm, well-perfused, no edema. +multiple scratch goel and ulcerations on b/l LE; LLE: +wound on left big toe. NEUROLOGICAL: Cranial nerves II through XII grossly intact. Normal speech, gait not observed. PSYCH: Normal mood, normal affect. SKIN: Warm, dry, normal turgor, no rashes or lesions noted Laboratory Results - last 24 hr 08/06/18 08/06/18 08/08/18 19:58 20:00 22:07 Sodium Potassium Chloride Carbon Dioxide Anion Gap BUN Creatinine Creat Clearance w eGFR POC Glucometer 126 Random Glucose Calcium Phosphorus Magnesium ARIES Screen Negative Glomerular Base Memb Ab 2 08/09/18 08/09/18 08/09/18 05:27 06:25 11:40 Sodium 136 Potassium 4.1 Chloride 104 Carbon Dioxide 15 L Anion Gap 16 BUN 85 H Creatinine 13.2 H* Creat Clearance w eGFR 3.04 POC Glucometer 119 150 Random Glucose 106 Calcium 7.9 L Phosphorus 8.2 H Magnesium 2.6 H ARIES Screen Glomerular Base Memb Ab Active Medications Generic Name Dose Route Start Last Admin Trade Name Freq PRN Reason Stop Dose Admin Acetaminophen 650 mg 08/09/18 09:51 08/09/18 17:14 Tylenol Oral Solution - PO 650 mg Q6H PRN Administration PAIN OR FEVER Amlodipine Besylate 5 mg 08/09/18 10:00 08/09/18 09:04 Norvasc - PO 5 mg DAILY NI Administration Bacitracin 1 applic 08/05/18 13:30 08/09/18 09:04 Bacitracin - TP 1 applic DAILY NI Administration Buprenorphine/Naloxone 1 each 08/06/18 18:00 08/09/18 09:04 Suboxone 2mg/0.5mg Sl Film - SL 1 each DAILY NI Administration Calcium Acetate 667 mg 08/08/18 17:30 08/09/18 16:40 Phoslo - PO Not Given TIDCM NI Collagenase 1 applic 08/05/18 21:30 08/09/18 09:04 Santyl - TP 1 applic DAILY NI Administration Protocol Escitalopram Oxalate 5 mg 08/09/18 10:00 08/09/18 09:04 Lexapro - PO 5 mg DAILY NI Administration Heparin Sodium (Porcine) 5,000 unit 08/06/18 22:00 08/09/18 13:06 Heparin - SQ Not Given TID [facility] Famotidine/Sodium Chloride 20 mg in 50 mls @ 100 mls/hr 08/04/18 23:13 Pepcid 20 Mg Premixed Ivpb - IVPB Q12H PRN DYSPEPSIA Sodium Chloride 250 mls @ 3,000 mls/hr 08/09/18 11:14 Normal Saline - IV 08/10/18 11:14 PRN PRN Hypotension during Dialysis Insulin Aspart 1 vial 08/05/18 07:00 08/09/18 16:40 Novolog Vial Sliding Scale - SQ Not Given ACHS [facility] Protocol Labetalol HCl 400 mg 08/07/18 10:00 08/09/18 09:04 Normodyne - PO 400 mg BID NI Administration Pregabalin 25 mg 08/09/18 22:00 Lyrica - PO HS NI Quetiapine Fumarate 50 mg 08/09/18 22:00 Seroquel - PO HS NI Trimethobenzamide HCl 200 mg 08/04/18 23:14 Tigan Injection - IM Q8H PRN NAUSEA ASSESSMENT/PLAN: Patient is a 48 year old female with past medical history of polysubstance abuse (on Subaxone), DM, HTN, CHF, DVT (s/p IVC filter, s/p Lovenox, not compliant), recent C.diff infection treated with Vancomycin 125mg PO for 10days , anxiety, depression, presented with diffuse abdominal pain accompanied by nausea and vomiting of 3 days. #Oliguria likely 2/2 Acute kidney injury: unclear etiology -pre-renal from dehydration vs intrarenal 2/2 polysubstance abuse -BUN/Cr worsening today 71/9.6 --> 79/11.1 -Discontinue IV fluids. Has been on IVF but has not improved. -Nephrology(Dr. Pace) consulted. Recommendations appreciated. -FeNa 12%, UPCR of 5 - consistent with tubular injury -Renal biopsy done today, likely preliminary result by Sunday -Strict I&O -Will give lasix trail to improve urine output. If pt is non-oliguric today can discontinue mckoy catheter -Will require acute dialysis today as patient did not improve in renal function and worsening acidosis -Avoid ACEI/ARBs, NSAIDs, Fleets -Dose all meds for CrCl <10 #Left great toe wound -MRI without contrast: Focal fluid superficial to the skin surface along the plantar medial aspect of the distal phalanx of the first toe question early due to open wound. Faint bone marrow edema of the mid-distal phalanx, however, this could be due to motion artifact or due to bony reaction to the adjacent infectious process. Early osteomyelitis cannot be entirely excluded. Follow-up MRI recommended. -ID (Dr. Bonner) consulted. Recommendations appreciated. -Will not start patient on any abx -Will need repeat imaging studies after 3 months. -Podiatry (Dr. Ly) consulted. Recommendations appreciated. -Wound culture - no growth -Vascular surgery (Dr. Knox) consulted. Recommendations appreciated. -Wound care with: wash ulcer with 1/2 NS/ 1/2 Peroxide, apply Bacitracin ointment, cover with 4x4 -Glucose control #Diarrhea: resolved -Stool positive for C.diff antigen but negative toxin -ID (Dr. Bonner) consulted. #Opioid dependence -No more episodes of nausea or vomiting -COWS 0 -Discontinue Ativan -Will continue to monitor -Continue home Seroquel 50mg PO Hs -Detox consulted (Dr. Urbano). Recommendations appreciated. -Restart Suboxone 2/0.5 mg SL daily prn. #DVT -Patient non-compliant with medications and follow-ups. -Last seen by Dr. Ruiz in May 2017, and has never followed up in the clinic -As per patient, last took Lovenox 1 month ago due to insurance problems, but upon med rec with pharmacy, has not picked up Lovenox >4 months. -Hematology (Dr. Man) consulted. Recommendations appreciated. -chronic DVT right distal SFV and popliteal vein. ( unchanged since 11/2017) -In view of provoked DVT and lengthy duration of lovenox, change to DVT prophylaxis with heparin. -Would repeat duplex in 2 weeks to assure stability of chronic clot. -It may be possible to discontinue a/c in future but outpatient AC choice would be limited to coumadin due to worsening Cr #DM -A1c: 7.5 -Hold home medications -Insulin sliding scale implemented -BGM ACHS #HTN -Will resume home dose of Labetalol 400mg BID -Amlodipine 5 mg added. -Hold Lisinopril for now -Will continue to monitor #Anxiety/Depression -Hold Trazodone with prolonged QTc (513) -Will continue to monitor #FEN -Not on any standing fluids. -Electrolytes wnl, routine bmp monitoring -Renal diet #Prophylaxis -Heparin 5000units sq tid #Disposition -full code Visit type - Emergency Visit Emergency Visit: Yes ED Registration Date: 08/06/18 Care time: The patient presented to the Emergency Department on the above date and was hospitalized for further evaluation of their emergent condition. - New Patient This patient is new to me today: No - Critical Care Critical Care patient: No
[2018-08-09] MEDS ORDERED: QUEtiapine FUMARATE 25 MG TABLET (FP) ONE (21:00)
[2018-08-09] MEDS: PREGABALIN 25 MG CAPSULE PO SCH (22:07)
[2018-08-09] MEDS: QUEtiapine FUMARATE 50 MG TABLET PO SCH (22:07)
[2018-08-09] MEDS ORDERED: morphine CARPU-JECT 2 MG/1 ML DISP.SYRIN IM ONE (23:49)
[2018-08-10] MEDS ORDERED: traZODone HCL 50 MG TABLET (FP) PO ONE (00:46)
--- NOTE | 2018-08-10 00:46 | PN ---
Progress Note (short form) - Note Progress Note: PAtient seen and examined Feels well. Started dialysis AFVSS Cor: RSR, No murmurs, No gallops Lungs: Clear to P&A Abd: Soft, Normal bowel sounds, No organomegaly Ext:No significant edema Labs/MEds reviewed A/P 48 y/o patient with Substance abuse CKD/ANASTASIA Infection left toe/ulcer Hx of DVT - presumably provoked in 2015 with P.E. one month later. Also with recurrent episode of DVT per Dr. Ruiz Recently off lovenox x months.Unclear how long patient has been off a/c. Resident discussed case with primary director advanced -- -- who suggested that given recurrent DVT she had been on a/c Now patient started dialysis Will discuss coumadin vs low dose eliquis 2.5 mg bid
[2018-08-10] MEDS: HEPARIN NA (PORCINE) 5,000 UNITS/ML 1ML VIAL SQ SCH ×3 (06:47→22:38)
[2018-08-10] MEDS ORDERED: SODIUM CHLORIDE 250 ML IV PRN (07:01)
[2018-08-10] MEDS: INSULIN SLIDING SCALE (NOVOLOG) 1 VIAL SQ SCH ×4 (07:05→21:57)
[2018-08-10 07:07] LABS: HEMATOCRIT 30.9 % (32.4-45.2); HEMOGLOBIN 10.8 GM/dL (10.7-15.3); MCHC 34.9 g/dl (32.0-36.0); MEAN CELL VOLUME 88.9 fl (80-96); MEAN PLT VOLUME 9.2 fl (7.5-11.1); PLATELET COUNT 173 K/MM3 (134-434); RBC 3.48 M/mm3 (3.60-5.2); RDW 14.5 % (11.6-15.6); WHITE BLOOD COUNT 8.9 K/mm3 (4.0-10.0)
[2018-08-10 08:12] LABS: ANION GAP 14 MMOL/L (8-16); BLOOD UREA NITROGEN 67 mg/dL (7-18); CALCIUM 8.3 mg/dL (8.5-10.1); CHLORIDE 104 mmol/L (98-107); CO2 21 mmol/L (21-32); GLUCOSE,RANDOM 127 mg/dL (74-106); PHOSPHOROUS 6.6 mg/dL (2.5-4.9); POTASSIUM 4.2 mmol/L (3.5-5.1); SODIUM 138 mmol/L (136-145)
[2018-08-10 08:16] LABS: CREATININE 11.5 mg/dL (0.55-1.3)
[2018-08-10] MEDS ORDERED: FUROSEMIDE 40 MG/4 ML INJECTABLE VIAL IVPUSH ONE (09:20)
[2018-08-10] MEDS: ESCITALOPRAM OXALATE 10 MG TABLET (FP) PO SCH (10:04)
[2018-08-10] MEDS: CALCIUM ACETATE 667 MG CAPSULE (FP) PO SCH ×3 (10:04→17:26)
[2018-08-10] MEDS: amLODIPine BESYLATE 10 MG TABLET (FP) PO SCH (10:04)
[2018-08-10] MEDS: BUPRENORPHINE/NALOXONE 2 MG/0.5 MG FILM PACKET SL SCH (10:04)
[2018-08-10] MEDS: BACITRACIN 15 GM TUBE TOPICAL OINTMENT TP SCH (10:05)
[2018-08-10] MEDS: LABETALOL HCL 200 MG TABLET (FP) PO SCH ×2 (10:05→21:52)
[2018-08-10] MEDS: COLLAGENASE CLOSTRIDIUM HIST. 30 GRAMS TUBE TP SCH (10:06)
--- NOTE | 2018-08-10 10:37 | PN ---
Progress Note (short form) - Note Progress Note: Renal follow up for ANASTASIA Pt seen and examined at the bedside complains of headache that she has had for 3 days no vision changes, fever, chills making more urine s/p first dialysis yesterday Vital Signs Temperature 98.8 F 08/10/18 06:00 Pulse Rate 85 08/10/18 06:00 Respiratory Rate 20 08/10/18 06:00 Blood Pressure 132/87 08/10/18 06:00 O2 Sat by Pulse Oximetry (%) 95 08/09/18 21:00 Intake & Output 08/07/18 08/08/18 08/09/18 08/10/18 23:59 23:59 23:59 23:59 Intake Total 2000 2100 800 150 Output Total 462 131 2400 Balance 1850 1150 -200 150 Weight 126.462 kg 127.958 kg NAD awake and alert RRR, NO M/R Dec BS, no rales Obese, Mild tenderness Trace edema in LE CBC, BMP 08/10/18 06:00 08/10/18 06:00 Current Medications Acetaminophen (Tylenol Oral Solution -) 650 mg PO Q6H PRN PRN Reason: PAIN OR FEVER Last Admin: 08/09/18 23:10 Dose: 650 mg Amlodipine Besylate (Norvasc -) 10 mg PO DAILY [facility] Last Admin: 08/10/18 10:04 Dose: 10 mg Bacitracin (Bacitracin -) 1 applic TP DAILY [facility] Last Admin: 08/10/18 10:05 Dose: Not Given Buprenorphine/Naloxone (Suboxone 2mg/0.5mg Sl Film -) 1 each SL DAILY [facility] Last Admin: 08/10/18 10:04 Dose: 1 each Calcium Acetate (Phoslo -) 667 mg PO TIDCM [facility] Last Admin: 08/10/18 10:04 Dose: 667 mg Collagenase (Santyl -) 1 applic TP DAILY [facility]; Protocol Last Admin: 08/10/18 10:06 Dose: 1 applic Escitalopram Oxalate (Lexapro -) 5 mg PO DAILY [facility] Last Admin: 08/10/18 10:04 Dose: 5 mg Heparin Sodium (Porcine) (Heparin -) 5,000 unit SQ TID [facility] Last Admin: 08/10/18 06:47 Dose: 5,000 unit Famotidine/Sodium Chloride (Pepcid 20 Mg Premixed Ivpb -) 20 mg in 50 mls @ 100 mls/hr IVPB Q12H PRN PRN Reason: DYSPEPSIA Sodium Chloride (Normal Saline -) 250 mls @ 3,000 mls/hr IV PRN PRN PRN Reason: Hypotension during Dialysis Stop: 08/10/18 11:14 Sodium Chloride (Normal Saline -) 250 mls @ 3,000 mls/hr IV PRN PRN PRN Reason: Hypotension during Dialysis Stop: 08/11/18 07:01 Insulin Aspart (Novolog Vial Sliding Scale -) 1 vial SQ ACHS [facility]; Protocol Last Admin: 08/10/18 07:05 Dose: Not Given Labetalol HCl (Normodyne -) 400 mg PO BID [facility] Last Admin: 08/10/18 10:05 Dose: 400 mg Pregabalin (Lyrica -) 25 mg PO [facility] Last Admin: 08/09/18 22:07 Dose: 25 mg Quetiapine Fumarate (Seroquel -) 50 mg PO [facility] Last Admin: 08/09/18 22:07 Dose: 50 mg Trimethobenzamide HCl (Tigan Injection -) 200 mg IM Q8H PRN PRN Reason: NAUSEA 48 year old woman with hx of CHF, DVT, DM, Polysubstance abuse, hx of renal failure requiring acute dialysis who presented with abd pain with N/V and foot pain and noted to have ANASTASIA. #ANASTASIA likely due to ATN vs. FSGS/ATN/AIN/RPG related to heroin use #Nausea and Vomiting #Polysubstance abuse #DM #HTN #Lactic acidosis now resolved Biopsy results pending s/p first session of dialysis yesterday, tolerated it well will recieve second session today FeNa is consistent with tubular injury HIV, Hepatitis, ARIES, Anti-GBM negative ANCA's pending can discontinue mckoy catheter Give Lasix 40mg IV once after dialysis Dose all meds for CrCl < 10 Consider Neurology evaluation for JIA Pace DO
[2018-08-10] MEDS: ACETAMINOPHEN/CAFFEINE/BUTALBITAL 1 TAB PO PRN ×2 (11:47→17:26)
--- NOTE | 2018-08-10 12:35 | PN ---
Progress Note, Physician History of Present Illness: doing well no new issues - Current Medication List Current Medications: Active Medications Acetaminophen (Tylenol Oral Solution -) 650 mg PO Q6H PRN PRN Reason: PAIN OR FEVER Last Admin: 08/09/18 23:10 Dose: 650 mg Acetaminophen/Butalbital/Caffeine (Fioricet -) 1 tablet PO Q6H PRN PRN Reason: HEADACHE Last Admin: 08/10/18 11:47 Dose: 1 tablet Amlodipine Besylate (Norvasc -) 10 mg PO DAILY [facility] Last Admin: 08/10/18 10:04 Dose: 10 mg Bacitracin (Bacitracin -) 1 applic TP DAILY [facility] Last Admin: 08/10/18 10:05 Dose: Not Given Buprenorphine/Naloxone (Suboxone 2mg/0.5mg Sl Film -) 1 each SL DAILY [facility] Last Admin: 08/10/18 10:04 Dose: 1 each Calcium Acetate (Phoslo -) 667 mg PO TIDCM [facility] Last Admin: 08/10/18 11:45 Dose: 667 mg Collagenase (Santyl -) 1 applic TP DAILY [facility]; Protocol Last Admin: 08/10/18 10:06 Dose: 1 applic Escitalopram Oxalate (Lexapro -) 5 mg PO DAILY [facility] Last Admin: 08/10/18 10:04 Dose: 5 mg Heparin Sodium (Porcine) (Heparin -) 5,000 unit SQ TID [facility] Last Admin: 08/10/18 06:47 Dose: 5,000 unit Famotidine/Sodium Chloride (Pepcid 20 Mg Premixed Ivpb -) 20 mg in 50 mls @ 100 mls/hr IVPB Q12H PRN PRN Reason: DYSPEPSIA Sodium Chloride (Normal Saline -) 250 mls @ 3,000 mls/hr IV PRN PRN PRN Reason: Hypotension during Dialysis Stop: 08/10/18 11:14 Sodium Chloride (Normal Saline -) 250 mls @ 3,000 mls/hr IV PRN PRN PRN Reason: Hypotension during Dialysis Stop: 08/11/18 07:01 Insulin Aspart (Novolog Vial Sliding Scale -) 1 vial SQ ACHS [facility]; Protocol Last Admin: 08/10/18 12:09 Dose: Not Given Labetalol HCl (Normodyne -) 400 mg PO BID [facility] Last Admin: 08/10/18 10:05 Dose: 400 mg Pregabalin (Lyrica -) 25 mg PO [facility] Last Admin: 08/09/18 22:07 Dose: 25 mg Quetiapine Fumarate (Seroquel -) 50 mg PO [facility] Last Admin: 08/09/18 22:07 Dose: 50 mg Trimethobenzamide HCl (Tigan Injection -) 200 mg IM Q8H PRN PRN Reason: NAUSEA - Objective Vital Signs: Vital Signs Temperature 98.8 F 08/10/18 10:00 Pulse Rate 82 08/10/18 10:00 Respiratory Rate 18 08/10/18 10:00 Blood Pressure 147/88 08/10/18 10:00 O2 Sat by Pulse Oximetry (%) 95 08/10/18 09:00 Constitutional: Yes: No Distress, Calm, Obese Respiratory: Yes: Regular, CTA Bilaterally Gastrointestinal: Yes: Normal Bowel Sounds, Soft Musculoskeletal: Yes: Other Extremities: Yes: Other Neurological: Yes: Alert, Oriented Psychiatric: Yes: Alert, Oriented Labs: CBC, BMP 08/10/18 06:00 08/10/18 06:00 INR, PTT INR 1.05 (0.83-1.09) 08/04/18 16:57 Assessment/Plan Problem List - Problems (1) Nausea & vomiting Code(s): R11.2 - NAUSEA WITH VOMITING, UNSPECIFIED (2) Hypovolemic shock Code(s): R57.1 - HYPOVOLEMIC SHOCK (3) SIRS (systemic inflammatory response syndrome) Code(s): R65.10 - SIRS OF NON-INFECTIOUS ORIGIN W/O ACUTE ORGAN DYSFUNCTION (4) ANASTASIA (acute kidney injury) Code(s): N17.9 - ACUTE KIDNEY FAILURE, UNSPECIFIED (5) Diabetic neuropathy associated with type 2 diabetes mellitus Code(s): E11.40 - TYPE 2 DIABETES MELLITUS WITH DIABETIC NEUROPATHY, UNSP Qualifiers: Diabetes mellitus complication detail: diabetic polyneuropathy Qualified Code(s): E11.42 - Type 2 diabetes mellitus with diabetic polyneuropathy (6) Morbid obesity Code(s): E66.01 - MORBID (SEVERE) OBESITY DUE TO EXCESS CALORIES (7) DVT (deep venous thrombosis) Code(s): I82.409 - ACUTE EMBOLISM AND THOMBOS UNSP DEEP VN UNSP LOWER EXTREMITY (8) Anxiety and depression Code(s): F41.8 - OTHER SPECIFIED ANXIETY DISORDERS (9) Hypertension Code(s): I10 - ESSENTIAL (PRIMARY) HYPERTENSION Qualifiers: Hypertension type: essential hypertension Qualified Code(s): I10 - Essential (primary) hypertension (10) Polysubstance (excluding opioids) dependence Code(s): F19.20 - OTHER PSYCHOACTIVE SUBSTANCE DEPENDENCE, UNCOMPLICATED (11) Diabetic ulcer of left great toe Code(s): E11.621 - TYPE 2 DIABETES MELLITUS WITH FOOT ULCER; L97.529 - NON- PRESSURE CHRONIC ULCER OTH PRT LEFT FOOT W UNSP SEVERITY patients wound evaluated i am worried about osteo plan mri noted will not start patient on any abx will need repeat imaging studies after 3 months rest continue current mgmt
--- NOTE | 2018-08-10 14:03 | PN ---
Physical Exam: SUBJECTIVE: Patient seen and examined at this bedside this morning. Patient has been reporting headache overnight and this morning. Tylenol given with minimal relief. UO 500ml overnight. OBJECTIVE: Vital Signs Period Temp Pulse Resp BP Sys/Puente Pulse Ox Last 24 Hr 97.9 F-98.8 F 62-87 18-20 132-167/79-109 95-95 GENERAL: The patient is awake, alert, and fully oriented, in no acute distress. HEAD: Normal with no signs of trauma. HEENT:PERRLA, EOMI, oral thrush, dry mucous membranes. NECK: Trachea midline, full range of motion, supple. LUNGS:+few scattered rhonchi bilaterally HEART: Regular rate and rhythm, S1, S2 without murmur, rub or gallop. ABDOMEN: Soft, nontender, nondistended, normoactive bowel sounds. : +shallow ulcers on the vulvar, perianal and sacrum EXTREMITIES: 2+ pulses, warm, well-perfused, no edema. NEUROLOGICAL: Cranial nerves II through XII grossly intact. Normal speech, normal gait. Motor strength 5/5, sensation intact. PSYCH: Normal mood, normal affect. SKIN: Warm, dry, normal turgor, no rashes or lesions noted Laboratory Results - last 24 hr 08/09/18 08/10/18 08/10/18 22:02 06:00 06:00 WBC 8.9 RBC 3.48 L Hgb 10.8 Hct 30.9 L MCV 88.9 MCH 31.0 MCHC 34.9 RDW 14.5 Plt Count 173 MPV 9.2 Sodium 138 Potassium 4.2 Chloride 104 Carbon Dioxide 21 Anion Gap 14 BUN 67 H Creatinine 11.5 H* Creat Clearance w eGFR 3.56 POC Glucometer 159 Random Glucose 127 H Calcium 8.3 L Phosphorus 6.6 H Magnesium 2.0 08/10/18 08/10/18 06:43 11:55 WBC RBC Hgb Hct MCV MCH MCHC RDW Plt Count MPV Sodium Potassium Chloride Carbon Dioxide Anion Gap BUN Creatinine Creat Clearance w eGFR POC Glucometer 131 133 Random Glucose Calcium Phosphorus Magnesium Active Medications Generic Name Dose Route Start Last Admin Trade Name Freq PRN Reason Stop Dose Admin Acetaminophen 650 mg 08/09/18 09:51 08/09/18 23:10 Tylenol Oral Solution - PO 650 mg Q6H PRN Administration PAIN OR FEVER Acetaminophen/Butalbital/Caffeine 1 tablet 08/10/18 11:21 08/10/18 11:47 Fioricet - PO 1 tablet Q6H PRN Administration HEADACHE Amlodipine Besylate 10 mg 08/10/18 10:00 08/10/18 10:04 Norvasc - PO 10 mg DAILY NI Administration Bacitracin 1 applic 08/05/18 13:30 08/10/18 10:05 Bacitracin - TP Not Given DAILY NI Buprenorphine/Naloxone 1 each 08/06/18 18:00 08/10/18 10:04 Suboxone 2mg/0.5mg Sl Film - SL 1 each DAILY NI Administration Calcium Acetate 667 mg 08/08/18 17:30 08/10/18 11:45 Phoslo - PO 667 mg TIDCM NI Administration Collagenase 1 applic 08/05/18 21:30 08/10/18 10:06 Santyl - TP 1 applic DAILY NI Administration Protocol Escitalopram Oxalate 5 mg 08/09/18 10:00 08/10/18 10:04 Lexapro - PO 5 mg DAILY NI Administration Heparin Sodium (Porcine) 5,000 unit 08/06/18 22:00 08/10/18 06:47 Heparin - SQ 5,000 unit TID NI Administration Famotidine/Sodium Chloride 20 mg in 50 mls @ 100 mls/hr 08/04/18 23:13 Pepcid 20 Mg Premixed Ivpb - IVPB Q12H PRN DYSPEPSIA Sodium Chloride 250 mls @ 3,000 mls/hr 08/09/18 11:14 Normal Saline - IV 08/10/18 11:14 PRN PRN Hypotension during Dialysis Sodium Chloride 250 mls @ 3,000 mls/hr 08/10/18 07:01 Normal Saline - IV 08/11/18 07:01 PRN PRN Hypotension during Dialysis Insulin Aspart 1 vial 08/05/18 07:00 08/10/18 12:09 Novolog Vial Sliding Scale - SQ Not Given ACHS [facility] Protocol Labetalol HCl 400 mg 08/07/18 10:00 08/10/18 10:05 Normodyne - PO 400 mg BID NI Administration Pregabalin 25 mg 08/09/18 22:00 08/09/18 22:07 Lyrica - PO 25 mg HS NI Administration Quetiapine Fumarate 50 mg 08/09/18 22:00 08/09/18 22:07 Seroquel - PO 50 mg HS NI Administration Trimethobenzamide HCl 200 mg 08/04/18 23:14 Tigan Injection - IM Q8H PRN NAUSEA ASSESSMENT/PLAN: Patient is a 48 year old female with past medical history of polysubstance abuse (on Subaxone), DM, HTN, CHF, DVT (s/p IVC filter, s/p Lovenox, not compliant), recent C.diff infection treated with Vancomycin 125mg PO for 10days , anxiety, depression, presented with diffuse abdominal pain accompanied by nausea and vomiting of 3 days. #Oliguria likely 2/2 Acute kidney injury: unclear etiology -pre-renal from dehydration (unlikely s/p IV hydration with no improvement) vs intrarenal 2/2 polysubstance abuse -BUN/Cr worsening today 85/13.2 --> 67/11.5 -Nephrology(Dr. Pace) consulted. Recommendations appreciated. -FeNa 12%, UPCR of 5 - consistent with tubular injury -Renal biopsy done today, likely preliminary result by Sunday -Can disontinue mckoy catheter. -Lasix 40mg IV once after dialysis. -s/p dialysis first session yesterday. Will receive second session today. -Avoid ACEI/ARBs, NSAIDs, Fleets -Dose all meds for CrCl <10 #Left great toe wound -MRI without contrast: Focal fluid superficial to the skin surface along the plantar medial aspect of the distal phalanx of the first toe question early due to open wound. Faint bone marrow edema of the mid-distal phalanx, however, this could be due to motion artifact or due to bony reaction to the adjacent infectious process. Early osteomyelitis cannot be entirely excluded. Follow-up MRI recommended. -ID (Dr. Bonner) consulted. Recommendations appreciated. -Will not start patient on any abx -Will need repeat imaging studies after 3 months. -Podiatry (Dr. Ly) consulted. Recommendations appreciated. -Wound culture - no growth -Vascular surgery (Dr. Knox) consulted. Recommendations appreciated. -Wound care with: wash ulcer with 1/2 NS/ 1/2 Peroxide, apply Bacitracin ointment, cover with 4x4 -Glucose control #Diarrhea: resolved -Stool positive for C.diff antigen but negative toxin -ID (Dr. Bonner) consulted. #Opioid dependence -No more episodes of nausea or vomiting -COWS 0 -Discontinue Ativan -Will continue to monitor -Continue home Seroquel 50mg PO Hs -Detox consulted (Dr. Urbano). Recommendations appreciated. -Restart Suboxone 2/0.5 mg SL daily prn. #DVT -Patient non-compliant with medications and follow-ups. -Last seen by Dr. Ruiz in May 2017, and has never followed up in the clinic -As per patient, last took Lovenox 1 month ago due to insurance problems, but upon med rec with pharmacy, has not picked up Lovenox >4 months. -Hematology (Dr. Man) consulted. Recommendations appreciated. -chronic DVT right distal SFV and popliteal vein. ( unchanged since 11/2017) -In view of provoked DVT and lengthy duration of lovenox, change to DVT prophylaxis with heparin. -Would repeat duplex in 2 weeks to assure stability of chronic clot. -It may be possible to discontinue a/c in future but outpatient AC choice would be limited to coumadin due to worsening Cr #DM -A1c: 7.5 -Hold home medications -Insulin sliding scale implemented -BGM ACHS #HTN -Will resume home dose of Labetalol 400mg BID -Amlodipine 5 mg added. -Hold Lisinopril for now -Will continue to monitor #Anxiety/Depression -Hold Trazodone with prolonged QTc (513) -Will continue to monitor #FEN -Not on any standing fluids. -Electrolytes wnl, routine bmp monitoring -Renal diet #Prophylaxis -Heparin 5000units sq tid #Disposition -full code Visit type - Emergency Visit Emergency Visit: Yes ED Registration Date: 08/06/18 Care time: The patient presented to the Emergency Department on the above date and was hospitalized for further evaluation of their emergent condition. - New Patient This patient is new to me today: No - Critical Care Critical Care patient: No
[2018-08-10 15:14] LABS: ATYPICAL pANCA <1:20 titer (Neg:<1:20); C-ANCA <1:20 titer (Neg:<1:20); P-ANCA <1:20 titer (Neg:<1:20)
--- NOTE | 2018-08-10 15:50 | PN ---
Teaching Attending Note Name of Resident: Nita Joseph ATTENDING PHYSICIAN STATEMENT I saw and evaluated the patient. I reviewed the resident's note and discussed the case with the resident. I agree with the resident's findings and plan as documented. SUBJECTIVE: has RO , no fever or chills. No abd pain, no more diarrhea x 2 days . Has RO and noises and bright lights disturb her.she has been having RO for a month now OBJECTIVE: NAD CV: RRR, no MRG Lungs: CTAB Ext: no edema. L big toe ulcer not examined today Assessment/Plan: 48 y/o lady with h/o HTN, DM , depression /anxiety, PE/DVT, s/p IVCF, substance abuse ,chronic lower ext ulcers, and frequent hospitalizations who preented after heroin use and overdosing on labetalol . she was found to have ANASTASIA 1- ANASTASIA: likely due to heroin abuse, and HTN, in addition to DM and hypotension at presentation - Appreciate Nephrology help: HD today again and lasix after HD - cont phoslo - follow rest of serologies 2- HTN: cont labetalol , and norvasc 3-RO, with photosensitivity. Takes exedrin as out pt . will try fioricet. if it does not help will CT her head in light of hypertension 4- Chronic DVT: h/o IVCF, not compliant with her AC. - discussion about resuming Ac was started again by jayme . will follow 5- DM : SSI 6- psych ; COnt lexapro and seroquel 7- L big toe ulcer. MRI with minimal BM edema in middle phalanx. d/w ID , no abd x. repeat MRI in 3 months 8- Heroin abuse: cont subaxone HLOC heparin sq
--- NOTE | 2018-08-10 17:44 | PN ---
Progress Note, Physician Chief Complaint: fu left big toe. sister and brother and law present. vss, tmax 98.1 History of Present Illness: Wound left big toe being tx by outpatient Teleprinter last visit according to patient 6 months ago. - Current Medication List Current Medications: Active Medications Acetaminophen (Tylenol Oral Solution -) 650 mg PO Q6H PRN PRN Reason: PAIN OR FEVER Last Admin: 08/09/18 23:10 Dose: 650 mg Acetaminophen/Butalbital/Caffeine (Fioricet -) 1 tablet PO Q6H PRN PRN Reason: HEADACHE Last Admin: 08/10/18 17:26 Dose: 1 tablet Amlodipine Besylate (Norvasc -) 10 mg PO DAILY [facility] Last Admin: 08/10/18 10:04 Dose: 10 mg Bacitracin (Bacitracin -) 1 applic TP DAILY [facility] Last Admin: 08/10/18 10:05 Dose: Not Given Buprenorphine/Naloxone (Suboxone 2mg/0.5mg Sl Film -) 1 each SL DAILY [facility] Last Admin: 08/10/18 10:04 Dose: 1 each Calcium Acetate (Phoslo -) 667 mg PO TIDCM [facility] Last Admin: 08/10/18 17:26 Dose: 667 mg Collagenase (Santyl -) 1 applic TP DAILY [facility]; Protocol Last Admin: 08/10/18 10:06 Dose: 1 applic Escitalopram Oxalate (Lexapro -) 5 mg PO DAILY [facility] Last Admin: 08/10/18 10:04 Dose: 5 mg Heparin Sodium (Porcine) (Heparin -) 5,000 unit SQ TID [facility] Last Admin: 08/10/18 16:01 Dose: Not Given Famotidine/Sodium Chloride (Pepcid 20 Mg Premixed Ivpb -) 20 mg in 50 mls @ 100 mls/hr IVPB Q12H PRN PRN Reason: DYSPEPSIA Sodium Chloride (Normal Saline -) 250 mls @ 3,000 mls/hr IV PRN PRN PRN Reason: Hypotension during Dialysis Stop: 08/10/18 11:14 Sodium Chloride (Normal Saline -) 250 mls @ 3,000 mls/hr IV PRN PRN PRN Reason: Hypotension during Dialysis Stop: 08/11/18 07:01 Insulin Aspart (Novolog Vial Sliding Scale -) 1 vial SQ ACHS [facility]; Protocol Last Admin: 08/10/18 17:28 Dose: Not Given Labetalol HCl (Normodyne -) 400 mg PO BID [facility] Last Admin: 08/10/18 10:05 Dose: 400 mg Pregabalin (Lyrica -) 25 mg PO HS [facility] Last Admin: 08/09/18 22:07 Dose: 25 mg Quetiapine Fumarate (Seroquel -) 50 mg PO HS [facility] Last Admin: 08/09/18 22:07 Dose: 50 mg Trimethobenzamide HCl (Tigan Injection -) 200 mg IM Q8H PRN PRN Reason: NAUSEA - Objective Vital Signs: Vital Signs Temperature 98.0 F 08/10/18 15:25 Pulse Rate 60 08/10/18 16:40 Respiratory Rate 18 08/10/18 16:40 Blood Pressure 140/88 08/10/18 16:40 O2 Sat by Pulse Oximetry (%) 95 08/10/18 09:00 Labs: CBC, BMP 08/10/18 06:00 08/10/18 06:00 INR, PTT INR 1.05 (0.83-1.09) 08/04/18 16:57 Assessment/Plan chronic diabetic foot wound om? MRI inconclusive Santyl dressing change daily. Abx as per ID. Wound care upon dc. Orthowedge shoe would be beneficial.
[2018-08-10] MEDS ORDERED: QUEtiapine FUMARATE 25 MG TABLET (FP) ONE (21:44)
[2018-08-10] MEDS: QUEtiapine FUMARATE 50 MG TABLET PO SCH (21:52)
[2018-08-10] MEDS: PREGABALIN 25 MG CAPSULE PO SCH (21:52)
[2018-08-11] MEDS: INSULIN SLIDING SCALE (NOVOLOG) 1 VIAL SQ SCH ×4 (06:20→21:42)
[2018-08-11] MEDS: HEPARIN NA (PORCINE) 5,000 UNITS/ML 1ML VIAL SQ SCH ×3 (06:20→21:26)
[2018-08-11 07:16] LABS: HEMOGLOBIN 10.7 GM/dL (10.7-15.3); MCH 31.9 pg (25.7-33.7); MCHC 35.7 g/dl (32.0-36.0); MEAN CELL VOLUME 89.3 fl (80-96); MEAN PLT VOLUME 9.3 fl (7.5-11.1); PLATELET COUNT 168 K/MM3 (134-434); RBC 3.36 M/mm3 (3.60-5.2); RDW 14.7 % (11.6-15.6); WHITE BLOOD COUNT 6.9 K/mm3 (4.0-10.0)
[2018-08-11 08:05] LABS: ANION GAP 13 MMOL/L (8-16); BLOOD UREA NITROGEN 49 mg/dL (7-18); CALCIUM 8.6 mg/dL (8.5-10.1); CHLORIDE 100 mmol/L (98-107); CO2 25 mmol/L (21-32); GLUCOSE,RANDOM 124 mg/dL (74-106); PHOSPHOROUS 6.2 mg/dL (2.5-4.9); POTASSIUM 3.5 mmol/L (3.5-5.1); SODIUM 139 mmol/L (136-145)
[2018-08-11 08:48] LABS: CREATININE 9.2 mg/dL (0.55-1.3)
[2018-08-11] MEDS: amLODIPine BESYLATE 10 MG TABLET (FP) PO SCH (09:43)
[2018-08-11] MEDS: ESCITALOPRAM OXALATE 10 MG TABLET (FP) PO SCH (09:43)
[2018-08-11] MEDS: COLLAGENASE CLOSTRIDIUM HIST. 30 GRAMS TUBE TP SCH (09:43)
[2018-08-11] MEDS: CALCIUM ACETATE 667 MG CAPSULE (FP) PO SCH ×3 (09:43→17:59)
[2018-08-11] MEDS: BUPRENORPHINE/NALOXONE 2 MG/0.5 MG FILM PACKET SL SCH (09:43)
[2018-08-11] MEDS: LABETALOL HCL 200 MG TABLET (FP) PO SCH ×2 (09:43→21:26)
[2018-08-11] MEDS: BACITRACIN 15 GM TUBE TOPICAL OINTMENT TP SCH (09:43)
[2018-08-11] MEDS ORDERED: methylPREDNISolone NA SUCC 1000 MG/8 ML VIAL IVPB ONE (10:15)
[2018-08-11] MEDS ORDERED: FUROSEMIDE 40 MG/4 ML INJECTABLE VIAL IVPUSH ONE (10:20)
--- NOTE | 2018-08-11 10:20 | PN ---
Progress Note (short form) - Note Progress Note: Renal follow up for ANASTASIA Pt seen and examined at the bedside no acute complaints making urine but low volume s/p dialysis yesterday Vital Signs Temperature 98.0 F 08/11/18 06:21 Pulse Rate 64 08/11/18 06:21 Respiratory Rate 18 08/11/18 06:21 Blood Pressure 124/79 08/11/18 06:21 O2 Sat by Pulse Oximetry (%) 97 08/10/18 21:00 Intake & Output 08/08/18 08/09/18 08/10/18 08/11/18 23:59 23:59 23:59 23:59 Intake Total 2100 800 300 350 Output Total 950 1000 450 Balance 1150 -200 -150 350 Weight 126.462 kg 127.958 kg NAD awake and alert RRR, NO M/R Dec BS, no rales Obese, Mild tenderness Trace edema in LE CBC, BMP 08/11/18 06:00 08/11/18 06:00 Current Medications Acetaminophen (Tylenol Oral Solution -) 650 mg PO Q6H PRN PRN Reason: PAIN OR FEVER Last Admin: 08/09/18 23:10 Dose: 650 mg Acetaminophen/Butalbital/Caffeine (Fioricet -) 1 tablet PO Q6H PRN PRN Reason: HEADACHE Last Admin: 08/10/18 17:26 Dose: 1 tablet Amlodipine Besylate (Norvasc -) 10 mg PO DAILY [facility] Last Admin: 08/11/18 09:43 Dose: 10 mg Bacitracin (Bacitracin -) 1 applic TP DAILY [facility] Last Admin: 08/11/18 09:43 Dose: Not Given Buprenorphine/Naloxone (Suboxone 2mg/0.5mg Sl Film -) 1 each SL DAILY [facility] Last Admin: 08/11/18 09:43 Dose: 1 each Calcium Acetate (Phoslo -) 667 mg PO TIDCM [facility] Last Admin: 08/11/18 09:43 Dose: 667 mg Collagenase (Santyl -) 1 applic TP DAILY [facility]; Protocol Last Admin: 08/11/18 09:43 Dose: 1 applic Escitalopram Oxalate (Lexapro -) 5 mg PO DAILY [facility] Last Admin: 08/11/18 09:43 Dose: 5 mg Heparin Sodium (Porcine) (Heparin -) 5,000 unit SQ TID [facility] Last Admin: 08/11/18 06:20 Dose: 5,000 unit Famotidine/Sodium Chloride (Pepcid 20 Mg Premixed Ivpb -) 20 mg in 50 mls @ 100 mls/hr IVPB Q12H PRN PRN Reason: DYSPEPSIA Insulin Aspart (Novolog Vial Sliding Scale -) 1 vial SQ ACHS [facility]; Protocol Last Admin: 08/11/18 06:20 Dose: Not Given Labetalol HCl (Normodyne -) 400 mg PO BID [facility] Last Admin: 08/11/18 09:43 Dose: 400 mg Methylprednisolone Sodium Succinate (Solu-Medrol -) 1,000 mg IVPB ONCE ONE Stop: 08/11/18 10:16 Pregabalin (Lyrica -) 25 mg PO HS [facility] Last Admin: 08/10/18 21:52 Dose: 25 mg Quetiapine Fumarate (Seroquel -) 50 mg PO HS [facility] Last Admin: 08/10/18 21:52 Dose: 50 mg Trimethobenzamide HCl (Tigan Injection -) 200 mg IM Q8H PRN PRN Reason: NAUSEA 48 year old woman with hx of CHF, DVT, DM, Polysubstance abuse, hx of renal failure requiring acute dialysis who presented with abd pain with N/V and foot pain and noted to have AANSTASIA. #ANASTASIA likely due to ATN vs. 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
[2018-08-11] MEDS ORDERED: PT OWN MED DRAWER 7, Y5N ONE (12:08)
--- NOTE | 2018-08-11 17:24 | PN ---
Progress Note (short form) - Note Progress Note: Subjective: RO is better. nO SOB , no diarrhea Objective: Vital Signs: Last Vital Signs Temp Pulse Resp BP Pulse Ox 97.9 F 74 18 143/76 92 L 08/11/18 13:47 08/11/18 13:47 08/11/18 13:47 08/11/18 13:47 08/11/18 09:00 Laboratory Results - last 24 hr 08/10/18 08/10/18 08/11/18 17:25 21:56 05:55 WBC RBC Hgb Hct MCV MCH MCHC RDW Plt Count MPV Sodium Potassium Chloride Carbon Dioxide Anion Gap BUN Creatinine Creat Clearance w eGFR POC Glucometer 123 140 129 Random Glucose Calcium Phosphorus Magnesium 08/11/18 08/11/18 08/11/18 06:00 06:00 11:58 WBC 6.9 RBC 3.36 L Hgb 10.7 Hct 30.0 L MCV 89.3 MCH 31.9 MCHC 35.7 RDW 14.7 Plt Count 168 MPV 9.3 Sodium 139 Potassium 3.5 Chloride 100 Carbon Dioxide 25 Anion Gap 13 BUN 49 H Creatinine 9.2 H* Creat Clearance w eGFR 4.61 POC Glucometer 117 Random Glucose 124 H Calcium 8.6 Phosphorus 6.2 H Magnesium 2.0 08/11/18 16:56 WBC RBC Hgb Hct MCV MCH MCHC RDW Plt Count MPV Sodium Potassium Chloride Carbon Dioxide Anion Gap BUN Creatinine Creat Clearance w eGFR POC Glucometer 187 Random Glucose Calcium Phosphorus Magnesium Physical Exam: NAD CV: RRR, no MRG Lungs: CTAB Ext: no edema. L big toe ulcer not examined today Assessment/Plan: 48 y/o lady with h/o HTN, DM , depression /anxiety, PE/DVT, s/p IVCF, substance abuse ,chronic lower ext ulcers, and frequent hospitalizations who preented after heroin use and overdosing on labetalol . she was found to have ANASTASIA 1- ANASTASIA: serology indicates PR3 ANCA . ? vasculitis - received steroids today - folow bx results - cont phoslo - lasix today 2- HTN: cont labetalol , and norvasc 3-RO, neg CT. RO better . fioricet if needed 4- Chronic DVT: h/o IVCF, not compliant with her AC. - discussion about resuming Ac was started again by jayme . will follow 5- DM : SSI 6- psych; Cont lexapro and seroquel 7- L big toe ulcer. repeat MRI in 3 months podiatry eval pending REcs 8- Heroin abuse: cont subaxone HLOC heparin sq Visit type - Emergency Visit Emergency Visit: Yes ED Registration Date: 08/06/18 Care time: The patient presented to the Emergency Department on the above date and was hospitalized for further evaluation of their emergent condition. - New Patient This patient is new to me today: No - Critical Care Critical Care patient: No
[2018-08-11] MEDS: PREGABALIN 25 MG CAPSULE PO SCH (21:26)
[2018-08-11] MEDS: QUEtiapine FUMARATE 50 MG TABLET PO SCH (21:26)
[2018-08-12] MEDS: HEPARIN NA (PORCINE) 5,000 UNITS/ML 1ML VIAL SQ SCH ×3 (06:01→21:33)
[2018-08-12] MEDS: INSULIN SLIDING SCALE (NOVOLOG) 1 VIAL SQ SCH ×4 (06:02→21:33)
[2018-08-12 08:18] LABS: BASO % 0.1 % (0-2.0); HEMATOCRIT 32.4 % (32.4-45.2); HEMOGLOBIN 11.3 GM/dL (10.7-15.3); LYMPH % 6.6 % (8-40); MCH 30.8 pg (25.7-33.7); MCHC 34.8 g/dl (32.0-36.0); MEAN CELL VOLUME 88.4 fl (80-96); MEAN PLT VOLUME 9.3 fl (7.5-11.1); MONO % 1.7 % (3.8-10.2); NEUT % 91.6 % (42.8-82.8); PLATELET COUNT 212 K/MM3 (134-434); RBC 3.66 M/mm3 (3.60-5.2); RDW 14.3 % (11.6-15.6); WHITE BLOOD COUNT 8.5 K/mm3 (4.0-10.0)
[2018-08-12 08:53] LABS: ALBUMIN 3.4 g/dl (3.4-5.0); ALK PHOS 74 U/L (45-117); ANION GAP 13 MMOL/L (8-16); BILIRUBIN,TOTAL 0.6 mg/dL (0.2-1); BLOOD UREA NITROGEN 64 mg/dL (7-18); CALCIUM 9.3 mg/dL (8.5-10.1); CHLORIDE 98 mmol/L (98-107); CO2 25 mmol/L (21-32); GLUCOSE,RANDOM 210 mg/dL (74-106); MAGNESIUM 2.3 mg/dL (1.8-2.4); PHOSPHOROUS 6.2 mg/dL (2.5-4.9); POTASSIUM 4.4 mmol/L (3.5-5.1); SGOT/AST 9 U/L (15-37); SGPT/ALT 20 U/L (13-61); SODIUM 136 mmol/L (136-145); TOT PROT 7.1 g/dl (6.4-8.2)
[2018-08-12 09:04] LABS: CREATININE 9.9 mg/dL (0.55-1.3)
[2018-08-12] MEDS: CALCIUM ACETATE 667 MG CAPSULE (FP) PO SCH ×3 (09:28→17:25)
[2018-08-12] MEDS: BACITRACIN 15 GM TUBE TOPICAL OINTMENT TP SCH (10:16)
[2018-08-12] MEDS: COLLAGENASE CLOSTRIDIUM HIST. 30 GRAMS TUBE TP SCH (10:16)
[2018-08-12] MEDS: LABETALOL HCL 200 MG TABLET (FP) PO SCH ×2 (10:16→21:33)
[2018-08-12] MEDS: amLODIPine BESYLATE 10 MG TABLET (FP) PO SCH (10:16)
[2018-08-12] MEDS: ESCITALOPRAM OXALATE 10 MG TABLET (FP) PO SCH (10:16)
[2018-08-12] MEDS: BUPRENORPHINE/NALOXONE 2 MG/0.5 MG FILM PACKET SL SCH (10:16)
[2018-08-12 11:44] LABS: ACANTHOCYTES 0; ANISOCYTOSIS 0; HELMET CELLS 0; HOWELL-JOLLY BODIES 0; MACROCYTOSIS 0; OVALOCYTE 0; PLATELET ESTIMATE NORMAL; ROULEAU 0; SICKELED CELLS 0; TARGET CELLS 0; TEAR DROP CELLS 0; TOXIC GRANULATION 0
[2018-08-12 13:50] VITALS: BMI 46.9
[2018-08-12] MEDS ORDERED: SODIUM CHLORIDE 250 ML IV PRN (15:23)
[2018-08-12] MEDS ORDERED: methylPREDNISolone NA SUCC 1000 MG/8 ML VIAL IVPB ONE (15:30)
[2018-08-12] MEDS: HEPARIN NA (PORCINE) 5,000 UNITS/ML 1ML VIAL IVPUSH SCH ×2 (15:30→16:30)
[2018-08-12] MEDS: ACETAMINOPHEN/CAFFEINE/BUTALBITAL 1 TAB PO PRN (17:25)
--- NOTE | 2018-08-12 17:43 | PN ---
Physical Exam: SUBJECTIVE: Patient seen and examined at bedside this morning. No acute events overnight. Patient denies any headache or dizziness. She is able to go the bathroom, with no urinary symptoms. Denies any fever, chills, nausea, vomiting, chest pain, SOB, abdominal pain, diarrhea. OBJECTIVE: Vital Signs Period Temp Pulse Resp BP Sys/Puente Pulse Ox Last 24 Hr 97.8 F-98.2 F 58-81 18-20 118-141/60-88 93-99 GENERAL: The patient is awake, alert, and fully oriented, in no acute distress. HEAD: Normal with no signs of trauma. EYES: PERRLA, EOMI, sclera anicteric, conjunctiva clear. ENT: Ears normal, nares patent, oropharynx clear without exudates, moist mucous membranes. NECK: Trachea midline, full range of motion, supple. LUNGS: Breath sounds equal, clear to auscultation bilaterally, decreased bilateral bases. HEART: Regular rate and rhythm, S1, S2 without murmur, rub or gallop. ABDOMEN: Soft, nontender, nondistended, normoactive bowel sounds, no guarding. EXTREMITIES: 2+ pulses, warm, well-perfused, no edema. +multiple scratch goel and ulcerations on b/l LE; LLE: +wound on left big toe. NEUROLOGICAL: Cranial nerves II through XII grossly intact. Normal speech, gait not observed. PSYCH: Normal mood, normal affect. SKIN: Warm, dry, normal turgor, no rashes or lesions noted Laboratory Results - last 24 hr 08/11/18 08/12/18 08/12/18 21:35 05:50 06:20 WBC 8.5 RBC 3.66 Hgb 11.3 Hct 32.4 MCV 88.4 MCH 30.8 MCHC 34.8 RDW 14.3 Plt Count 212 D MPV 9.3 Absolute Neuts (auto) 7.8 Neutrophils % 91.6 H D Neutrophils % (Manual) 94.0 H Band Neutrophils % 1.0 Lymphocytes % 6.6 L D Lymphocytes % (Manual) 3.0 L Monocytes % 1.7 L D Monocytes % (Manual) 2 L Eosinophils % 0.0 D Eosinophils % (Manual) 0.0 Basophils % 0.1 Basophils % (Manual) 0.0 Myelocytes % (Man) 0 Promyelocytes % (Man) 0 Blast Cells % (Manual) 0 Nucleated RBC % 0 Metamyelocytes 0 Hypochromia 0 Toxic Granulation 0 Dohle Bodies 0 Platelet Estimate Normal Polychromasia 0 Poikilocytosis 0 Basophilic Stippling 0 Anisocytosis 0 Microcytosis 0 Macrocytosis 0 Spherocytes 0 Sickle Cells 0 Target Cells 0 Tear Drop Cells 0 Ovalocytes 0 Stomatocytes 0 Helmet Cells 0 [place] Bodies 0 [place] Rings 0 Corey Cells 0 Acanthocytes (Spur) 0 Rouleaux 0 Fragmented RBCs 0 Schistocytes 0 Sodium Potassium Chloride Carbon Dioxide Anion Gap BUN Creatinine Creat Clearance w eGFR POC Glucometer 296 206 Random Glucose Calcium Phosphorus Magnesium Total Bilirubin AST ALT Alkaline Phosphatase Total Protein Albumin 08/12/18 08/12/18 06:20 11:24 WBC RBC Hgb Hct MCV MCH MCHC RDW Plt Count MPV Absolute Neuts (auto) Neutrophils % Neutrophils % (Manual) Band Neutrophils % Lymphocytes % Lymphocytes % (Manual) Monocytes % Monocytes % (Manual) Eosinophils % Eosinophils % (Manual) Basophils % Basophils % (Manual) Myelocytes % (Man) Promyelocytes % (Man) Blast Cells % (Manual) Nucleated RBC % Metamyelocytes Hypochromia Toxic Granulation Dohle Bodies Platelet Estimate Polychromasia Poikilocytosis Basophilic Stippling Anisocytosis Microcytosis Macrocytosis Spherocytes Sickle Cells Target Cells Tear Drop Cells Ovalocytes Stomatocytes Helmet Cells [place] Bodies [place] Rings Corey Cells Acanthocytes (Spur) Rouleaux Fragmented RBCs Schistocytes Sodium 136 Potassium 4.4 Chloride 98 Carbon Dioxide 25 Anion Gap 13 BUN 64 H Creatinine 9.9 H* Creat Clearance w eGFR 4.24 POC Glucometer 334 Random Glucose 210 H Calcium 9.3 Phosphorus 6.2 H Magnesium 2.3 Total Bilirubin 0.6 AST 9 L ALT 20 Alkaline Phosphatase 74 Total Protein 7.1 Albumin 3.4 Active Medications Generic Name Dose Route Start Last Admin Trade Name Freq PRN Reason Stop Dose Admin Acetaminophen 650 mg 08/09/18 09:51 08/09/18 23:10 Tylenol Oral Solution - PO 650 mg Q6H PRN Administration PAIN OR FEVER Acetaminophen/Butalbital/Caffeine 1 tablet 08/10/18 11:21 08/12/18 17:25 Fioricet - PO 1 tablet Q6H PRN Administration HEADACHE Amlodipine Besylate 10 mg 08/10/18 10:00 08/12/18 10:16 Norvasc - PO 10 mg DAILY [facility] Administration Bacitracin 1 applic 08/05/18 13:30 08/12/18 10:16 Bacitracin - TP Not Given DAILY [facility] Buprenorphine/Naloxone 1 each 08/06/18 18:00 08/12/18 10:16 Suboxone 2mg/0.5mg Sl Film - SL 1 each DAILY [facility] Administration Calcium Acetate 667 mg 08/08/18 17:30 08/12/18 17:25 Phoslo - PO 667 mg TIDCM [facility] Administration Collagenase 1 applic 08/05/18 21:30 08/12/18 10:16 Santyl - TP 1 applic DAILY [facility] Administration Protocol Escitalopram Oxalate 5 mg 08/09/18 10:00 08/12/18 10:16 Lexapro - PO 5 mg DAILY [facility] Administration Heparin Sodium (Porcine) 5,000 unit 08/06/18 22:00 08/12/18 13:30 Heparin - SQ Not Given TID [facility] Famotidine/Sodium Chloride 20 mg in 50 mls @ 100 mls/hr 08/04/18 23:13 Pepcid 20 Mg Premixed Ivpb - IVPB Q12H PRN DYSPEPSIA Sodium Chloride 250 mls @ 3,000 mls/hr 08/12/18 15:23 Normal Saline - IV 08/13/18 15:22 PRN PRN Hypotension during Dialysis Insulin Aspart 1 vial 08/05/18 07:00 08/12/18 17:31 Novolog Vial Sliding Scale - SQ 2 units ACHS [facility] Administration Protocol Labetalol HCl 400 mg 08/07/18 10:00 08/12/18 10:16 Normodyne - PO 400 mg BID [facility] Administration Pregabalin 25 mg 08/09/18 22:00 08/11/18 21:26 Lyrica - PO 25 mg HS [facility] Administration Quetiapine Fumarate 50 mg 08/09/18 22:00 08/11/18 21:26 Seroquel - PO 50 mg HS [facility] Administration Trimethobenzamide HCl 200 mg 08/04/18 23:14 Tigan Injection - IM Q8H PRN NAUSEA ASSESSMENT/PLAN: Patient is a 48 year old female with past medical history of polysubstance abuse (on Subaxone), DM, HTN, CHF, DVT (s/p IVC filter, s/p Lovenox, not compliant), recent C.diff infection treated with Vancomycin 125mg PO for 10days , anxiety, depression, presented with diffuse abdominal pain accompanied by nausea and vomiting of 3 days. #Oliguria likely 2/2 Acute kidney injury: unclear etiology -pre-renal from dehydration (unlikely s/p IV hydration with no improvement) vs intrarenal 2/2 polysubstance abuse -Nephrology(Dr. Pace) consulted. Recommendations appreciated. -FeNa 12%, UPCR of 5 - consistent with tubular injury -Renal biopsy done, results showed glomeruli, may need repeat biopsy tomorrow. -PR3 elevated (14.9). Possible ?vasculitis -For dialysis today. -Avoid ACEI/ARBs, NSAIDs, Fleets -Dose all meds for CrCl <10 #Left great toe wound -MRI without contrast: Focal fluid superficial to the skin surface along the plantar medial aspect of the distal phalanx of the first toe question early due to open wound. Faint bone marrow edema of the mid-distal phalanx, however, this could be due to motion artifact or due to bony reaction to the adjacent infectious process. Early osteomyelitis cannot be entirely excluded. Follow-up MRI recommended. -ID (Dr. Bonner) consulted. Recommendations appreciated. -Will not start patient on any abx -Will need repeat imaging studies after 3 months. -Podiatry (Dr. Ly) consulted. Recommendations appreciated. -Wound culture - no growth -Vascular surgery (Dr. Knox) consulted. Recommendations appreciated. -Wound care with: wash ulcer with 1/2 NS/ 1/2 Peroxide, apply Bacitracin ointment, cover with 4x4 -Glucose control #Diarrhea: resolved -Stool positive for C.diff antigen but negative toxin -ID (Dr. Bonner) consulted. #Opioid dependence -No more episodes of nausea or vomiting -COWS 0 -Discontinue Ativan -Continue home Seroquel 50mg PO Hs -Detox consulted (Dr. Urbano). Recommendations appreciated. -Restart Suboxone 2/0.5 mg SL daily prn. #DVT -Patient non-compliant with medications and follow-ups. -Last seen by Dr. Ruiz in May 2017, and has never followed up in the clinic -As per patient, last took Lovenox 1 month ago due to insurance problems, but upon med rec with pharmacy, has not picked up Lovenox >4 months. -Hematology (Dr. Duque) consulted. Recommendations appreciated. -chronic DVT right distal SFV and popliteal vein. ( unchanged since 11/2017) -In view of provoked DVT and lengthy duration of lovenox, change to DVT prophylaxis with heparin. -Would need anticoagulation. Compliance is the issue -Would start coumadin vs. Eliquis 2.5 mg bid #DM -A1c: 7.5 -Hold home medications -Insulin sliding scale implemented -BGM ACHS #HTN -Will resume home dose of Labetalol 400mg BID -Amlodipine 5 mg increased to 10mg daily. -Hold Lisinopril for now -Will continue to monitor #Anxiety/Depression -Hold Trazodone with prolonged QTc (513) -Will continue to monitor #FEN -Not on any standing fluids. -Electrolytes wnl, routine bmp monitoring -Renal diet #Prophylaxis -Heparin 5000units sq tid #Disposition -full code Visit type - Emergency Visit Emergency Visit: Yes ED Registration Date: 08/06/18 Care time: The patient presented to the Emergency Department on the above date and was hospitalized for further evaluation of their emergent condition. - New Patient This patient is new to me today: No - Critical Care Critical Care patient: No
--- NOTE | 2018-08-12 18:03 | PN ---
Teaching Attending Note Name of Resident: Nita Joseph ATTENDING PHYSICIAN STATEMENT I saw and evaluated the patient. I reviewed the resident's note and discussed the case with the resident. I agree with the resident's findings and plan as documented. SUBJECTIVE: no fever or chills . No abd pain, NO RO, no CP . OBJECTIVE: NAD CV: RRR, no MRG Lungs: CTAB Ext: no edema. L big toe ulcer with no discharge , improving Assessment/Plan: 48 y/o lady with h/o HTN, DM , depression /anxiety, PE/DVT, s/p IVCF, substance abuse ,chronic lower ext ulcers, and frequent hospitalizations who preented after heroin use and overdosing on labetalol . she was found to have ANASTASIA 1-ANASTASIA: serology indicates PR3 ANCA. ? vasculitis - d/w Dr. Pace , Bx did not include any [place] . will need to repeat if patient agrees - will consult rheum per d/w Dr. Pace - follow bx results - cont phoslo - HD today 2- HTN: cont labetalol , and norvasc 3- RO, resolved . fioricet if needed 4- Chronic DVT: h/o IVCF, not compliant with her AC. - Need to d/w heme about AC. 5- DM: SSI 6- Psych; Cont lexapro and seroquel. 7- L big toe ulcer. repeat MRI in 3 months podiatry eval pending REcs 8- Heroin abuse: cont subaxone HLOC heparin sq
--- NOTE | 2018-08-12 19:29 | PN ---
Progress Note (short form) - Note Progress Note: PAtient seen and examined Last Vital Signs Temp Pulse Resp BP Pulse Ox 99.0 F 76 24 H 135/94 99 08/12/18 19:00 08/12/18 19:00 08/12/18 19:00 08/12/18 19:00 08/12/18 09:00 Cor: RSR, No murmurs, No gallops Lungs: Clear to P&A Abd: Soft, Normal bowel sounds, No organomegaly Ext:No significant edema Abnormal Lab Results 08/12/18 08/12/18 06:20 06:20 Neutrophils % 91.6 H D Neutrophils % (Manual) 94.0 H Lymphocytes % 6.6 L D Lymphocytes % (Manual) 3.0 L Monocytes % 1.7 L D Monocytes % (Manual) 2 L BUN 64 H Creatinine 9.9 H* Random Glucose 210 H Phosphorus 6.2 H AST 9 L Home Medication List Medication Instructions Recorded Confirmed Type Pregabalin [Lyrica] 100 mg PO TID 10/02/16 08/06/18 History Zolpidem Tartrate [Ambien] 10 mg PO HS 01/23/18 08/06/18 History traZODone HCL [Desyrel -] 100 mg PO HS 02/13/18 08/06/18 History Escitalopram Oxalate [Lexapro -] 5 mg PO DAILY 08/06/18 08/06/18 History Active Medications Generic Name Dose Route Start Last Admin Trade Name Freq PRN Reason Stop Dose Admin Acetaminophen 650 mg 08/09/18 09:51 08/09/18 23:10 Tylenol Oral Solution - PO 650 mg Q6H PRN Administration PAIN OR FEVER Acetaminophen/Butalbital/Caffeine 1 tablet 08/10/18 11:21 08/12/18 17:25 Fioricet - PO 1 tablet Q6H PRN Administration HEADACHE Amlodipine Besylate 10 mg 08/10/18 10:00 08/12/18 10:16 Norvasc - PO 10 mg DAILY NI Administration Bacitracin 1 applic 08/05/18 13:30 08/12/18 10:16 Bacitracin - TP Not Given DAILY NI Buprenorphine/Naloxone 1 each 08/06/18 18:00 08/12/18 10:16 Suboxone 2mg/0.5mg Sl Film - SL 1 each DAILY NI Administration Calcium Acetate 667 mg 08/08/18 17:30 08/12/18 17:25 Phoslo - PO 667 mg TIDCM NI Administration Collagenase 1 applic 08/05/18 21:30 08/12/18 10:16 Santyl - TP 1 applic DAILY [facility] Administration Protocol Escitalopram Oxalate 5 mg 08/09/18 10:00 08/12/18 10:16 Lexapro - PO 5 mg DAILY NI Administration Heparin Sodium (Porcine) 5,000 unit 08/06/18 22:00 08/12/18 13:30 Heparin - SQ Not Given TID NI Famotidine/Sodium Chloride 20 mg in 50 mls @ 100 mls/hr 08/04/18 23:13 Pepcid 20 Mg Premixed Ivpb - IVPB Q12H PRN DYSPEPSIA Sodium Chloride 250 mls @ 3,000 mls/hr 08/12/18 15:23 Normal Saline - IV 08/13/18 15:22 PRN PRN Hypotension during Dialysis Insulin Aspart 1 vial 08/05/18 07:00 08/12/18 17:31 Novolog Vial Sliding Scale - SQ 2 units ACHS NI Administration Protocol Labetalol HCl 400 mg 08/07/18 10:00 08/12/18 10:16 Normodyne - PO 400 mg BID NI Administration Pregabalin 25 mg 08/09/18 22:00 08/11/18 21:26 Lyrica - PO 25 mg HS NI Administration Quetiapine Fumarate 50 mg 08/09/18 22:00 08/11/18 21:26 Seroquel - PO 50 mg HS NI Administration Trimethobenzamide HCl 200 mg 08/04/18 23:14 Tigan Injection - IM Q8H PRN NAUSEA A/P 48 y/o patient with Substance abuse CKD/ANASTASIA Infection left toe/ulcer Hx of DVT - presumably provoked in 2016 with P.E. one month later. Also with recurrent episode of DVT per Dr. Ruiz Recently off lovenox x months.Unclear how long patient has been off a/c. Now on heparin SC Will decide on residential anticoagulation based on clinical course/renal function. for now continue heparin SC ANASTASIA--Vasculitis ? pauciimmune RPGN discussed with renal for renal biopsy tomorrow May need to consider plasma exchange
[2018-08-12] MEDS ORDERED: PT OWN MED DRAWER 7, Y5N ONE (20:14)
[2018-08-12] MEDS: PREGABALIN 25 MG CAPSULE PO SCH (21:33)
[2018-08-12] MEDS: QUEtiapine FUMARATE 50 MG TABLET PO SCH (21:33)
[2018-08-13] MEDS: INSULIN SLIDING SCALE (NOVOLOG) 1 VIAL SQ SCH ×4 (06:56→21:21)
[2018-08-13 06:57] LABS: BASO % 0.5 % (0-2.0); HEMATOCRIT 32.3 % (32.4-45.2); HEMOGLOBIN 11.1 GM/dL (10.7-15.3); LYMPH % 5.4 % (8-40); MCH 30.6 pg (25.7-33.7); MCHC 34.2 g/dl (32.0-36.0); MEAN CELL VOLUME 89.5 fl (80-96); MEAN PLT VOLUME 9.2 fl (7.5-11.1); MONO % 1.6 % (3.8-10.2); NEUT % 92.5 % (42.8-82.8); PLATELET COUNT 249 K/MM3 (134-434); RBC 3.62 M/mm3 (3.60-5.2); RDW 14.6 % (11.6-15.6); WHITE BLOOD COUNT 10.6 K/mm3 (4.0-10.0)
[2018-08-13 07:15] LABS: ANION GAP 13 MMOL/L (8-16); BLOOD UREA NITROGEN 53 mg/dL (7-18); CALCIUM 9.1 mg/dL (8.5-10.1); CHLORIDE 100 mmol/L (98-107); CO2 25 mmol/L (21-32); CREATININE 6.4 mg/dL (0.55-1.3); GLUCOSE,RANDOM 237 mg/dL (74-106); MAGNESIUM 1.9 mg/dL (1.8-2.4); PHOSPHOROUS 6.4 mg/dL (2.5-4.9); POTASSIUM 4.1 mmol/L (3.5-5.1); SODIUM 138 mmol/L (136-145)
[2018-08-13] MEDS: CALCIUM ACETATE 667 MG CAPSULE (FP) PO SCH ×3 (09:37→16:54)
[2018-08-13] MEDS: BACITRACIN 15 GM TUBE TOPICAL OINTMENT TP SCH (09:42)
[2018-08-13] MEDS: LABETALOL HCL 200 MG TABLET (FP) PO SCH ×2 (09:43→21:19)
[2018-08-13] MEDS: amLODIPine BESYLATE 10 MG TABLET (FP) PO SCH (09:43)
[2018-08-13 10:12] LABS: ANISOCYTOSIS 0; MACROCYTOSIS 0; PLATELET ESTIMATE NORMAL
[2018-08-13] MEDS: ESCITALOPRAM OXALATE 10 MG TABLET (FP) PO SCH (11:37)
[2018-08-13] MEDS: BUPRENORPHINE/NALOXONE 2 MG/0.5 MG FILM PACKET SL SCH (11:39)
--- NOTE | 2018-08-13 11:58 | PN ---
Progress Note (short form) - Note Progress Note: Renal follow up for ANASTASIA Pt seen and examined at the bedside no acute complaints no sob, cp, abd pain, N/v/D s/p dialysis yesterday Vital Signs Temperature 98.9 F 08/13/18 10:00 Pulse Rate 69 08/13/18 10:00 Respiratory Rate 18 08/13/18 10:00 Blood Pressure 160/99 08/13/18 10:00 O2 Sat by Pulse Oximetry (%) 96 08/12/18 21:00 Intake & Output 08/10/18 08/11/18 08/12/18 08/13/18 23:59 23:59 23:59 23:59 Intake Total 300 780 950 Output Total 450 650 450 Balance -150 130 500 NAD awake and alert RRR, NO M/R Dec BS, no rales Obese, Mild tenderness Trace edema in LE CBC, BMP 08/13/18 06:30 08/13/18 06:30 Current Medications Acetaminophen (Tylenol Oral Solution -) 650 mg PO Q6H PRN PRN Reason: PAIN OR FEVER Last Admin: 08/09/18 23:10 Dose: 650 mg Acetaminophen/Butalbital/Caffeine (Fioricet -) 1 tablet PO Q6H PRN PRN Reason: HEADACHE Last Admin: 08/12/18 17:25 Dose: 1 tablet Amlodipine Besylate (Norvasc -) 10 mg PO DAILY [facility] Last Admin: 08/13/18 09:43 Dose: 10 mg Bacitracin (Bacitracin -) 1 applic TP DAILY [facility] Last Admin: 08/13/18 09:42 Dose: Not Given Buprenorphine/Naloxone (Suboxone 2mg/0.5mg Sl Film -) 1 each SL DAILY [facility] Last Admin: 08/13/18 11:39 Dose: 1 each Calcium Acetate (Phoslo -) 667 mg PO TIDCM [facility] Last Admin: 08/13/18 11:09 Dose: Not Given Collagenase (Santyl -) 1 applic TP DAILY [facility]; Protocol Last Admin: 08/12/18 10:16 Dose: 1 applic Escitalopram Oxalate (Lexapro -) 5 mg PO DAILY [facility] Last Admin: 08/13/18 11:37 Dose: 5 mg Heparin Sodium (Porcine) (Heparin -) 5,000 unit SQ TID [facility] Last Admin: 08/12/18 21:33 Dose: 5,000 unit Famotidine/Sodium Chloride (Pepcid 20 Mg Premixed Ivpb -) 20 mg in 50 mls @ 100 mls/hr IVPB Q12H PRN PRN Reason: DYSPEPSIA Sodium Chloride (Normal Saline -) 250 mls @ 3,000 mls/hr IV PRN PRN PRN Reason: Hypotension during Dialysis Stop: 08/13/18 15:22 Insulin Aspart (Novolog Vial Sliding Scale -) 1 vial SQ ACHS NI; Protocol Last Admin: 08/13/18 06:56 Dose: Not Given Labetalol HCl (Normodyne -) 400 mg PO BID NI Last Admin: 08/13/18 09:43 Dose: 400 mg Pregabalin (Lyrica -) 25 mg PO HS [facility] Last Admin: 08/12/18 21:33 Dose: 25 mg Quetiapine Fumarate (Seroquel -) 50 mg PO HS NI Trimethobenzamide HCl (Tigan Injection -) 200 mg IM Q8H PRN PRN Reason: NAUSEA 48 year old woman with hx of CHF, DVT, DM, Polysubstance abuse, hx of renal failure requiring acute dialysis who presented with abd pain with N/V and foot pain and noted to have ANASTASIA. #ANASTASIA likely due to ATN vs. FSGS/ATN/AIN/RPG related to heroin use #Nausea and Vomiting #Polysubstance abuse #DM #HTN #Lactic acidosis now resolved pt will need repeat renal biopsy as prior biopsy did not contain any glomerlui and thus not able to make a diagnosis biopsy deferred to tomorrow per IR Will give solumederol 1g IV again today Will discuss plasma exchange to be started day following biopsy Dose all meds for CrCl < 20 Will need tunneled HD catheter placement, will discuss with vascular surgery Alejandro Pace DO
[2018-08-13] MEDS: HEPARIN NA (PORCINE) 5,000 UNITS/ML 1ML VIAL IVPUSH SCH (12:11)
[2018-08-13] MEDS ORDERED: methylPREDNISolone NA SUCC 1000 MG/8 ML VIAL IVPB ONE (13:15)
[2018-08-13] MEDS: COLLAGENASE CLOSTRIDIUM HIST. 30 GRAMS TUBE TP SCH (15:11)
--- NOTE | 2018-08-13 15:36 | PN ---
Teaching Attending Note Name of Resident: Nita Joseph ATTENDING PHYSICIAN STATEMENT I saw and evaluated the patient. I reviewed the resident's note and discussed the case with the resident. I agree with the resident's findings and plan as documented. SUBJECTIVE: No fever or chills . no abd pain , no RO , no SOB OBJECTIVE: NAD CV: RRR, no MRG Lungs: CTAB Ext: no edema. L big toe ulcer was not examined today Assessment/Plan: 48 y/o lady with h/o HTN, DM , depression /anxiety, PE/DVT, s/p IVCF, substance abuse ,chronic lower ext ulcers, and frequent hospitalizations who preented after heroin use and overdosing on labetalol . she was found to have ANASTASIA 1-ANASTASIA: serology indicates PR3 ANCA. ? vasculitis - repeat Bx today - rheum eval pending - received steroids - ? plasma exchange /cytotoxic drugs per renal/heme/rheum - cont phoslo - cont HD per renal 2- HTN: cont labetalol , and norvasc 3- RO, resolved . fioricet if needed 4- Chronic DVT: h/o IVCF, not compliant with her AC. - appreciate heme input. buttermaker continuous churn Ac to be decided depending on course. ( dr. Duque d/w Dr. Ruiz) 5- DM: SSI 6- Psych; Cont lexapro and seroquel. 7- L big toe ulcer. repeat MRI in 3 months cont santyl daily orthowedge shoes upon dc 8- Heroin abuse: cont subaxone HLOC heparin sq
[2018-08-13] MEDS: HEPARIN NA (PORCINE) 5,000 UNITS/ML 1ML VIAL SQ SCH ×3 (15:43→21:28)
--- NOTE | 2018-08-13 17:16 | PN ---
Physical Exam: SUBJECTIVE: Patient seen and examined at bedside this morning. No acute events overnight. Patient has no new complaints. OBJECTIVE: Vital Signs Period Temp Pulse Resp BP Sys/Puente Pulse Ox Last 24 Hr 98.2 F-99.0 F 69-76 18-24 115-160/71-99 96 GENERAL: The patient is awake, alert, and fully oriented, in no acute distress. HEAD: Normal with no signs of trauma. EYES: PERRLA, EOMI, sclera anicteric, conjunctiva clear. ENT: Ears normal, nares patent, oropharynx clear without exudates, moist mucous membranes. NECK: Trachea midline, full range of motion, supple. LUNGS: Breath sounds equal, clear to auscultation bilaterally, decreased bilateral bases. HEART: Regular rate and rhythm, S1, S2 without murmur, rub or gallop. ABDOMEN: Soft, nontender, nondistended, normoactive bowel sounds, no guarding. EXTREMITIES: 2+ pulses, warm, well-perfused, no edema. +multiple scratch goel and ulcerations on b/l LE; LLE: +wound on left big toe. NEUROLOGICAL: Cranial nerves II through XII grossly intact. Normal speech, gait not observed. PSYCH: Normal mood, normal affect. SKIN: Warm, dry, normal turgor, no rashes or lesions noted Laboratory Results - last 24 hr 08/12/18 08/12/18 08/13/18 17:29 21:31 06:30 WBC 10.6 H RBC 3.62 Hgb 11.1 Hct 32.3 L MCV 89.5 MCH 30.6 MCHC 34.2 RDW 14.6 Plt Count 249 MPV 9.2 Absolute Neuts (auto) 9.8 H Neutrophils % 92.5 H Neutrophils % (Manual) 87.7 H Band Neutrophils % 0.0 Lymphocytes % 5.4 L Lymphocytes % (Manual) 8.2 D Monocytes % 1.6 L Monocytes % (Manual) 4 D Eosinophils % 0.0 Eosinophils % (Manual) 0.0 Basophils % 0.5 D Basophils % (Manual) 0.0 Myelocytes % (Man) 0 Promyelocytes % (Man) 0 Blast Cells % (Manual) 0 Nucleated RBC % 0 Metamyelocytes 0 Hypochromia 0 Platelet Estimate Normal Polychromasia 0 Poikilocytosis 0 Anisocytosis 0 Microcytosis 0 Macrocytosis 0 Sodium Potassium Chloride Carbon Dioxide Anion Gap BUN Creatinine Creat Clearance w eGFR POC Glucometer 190 238 Random Glucose Calcium Phosphorus Magnesium 08/13/18 08/13/18 08/13/18 06:30 06:55 11:48 WBC RBC Hgb Hct MCV MCH MCHC RDW Plt Count MPV Absolute Neuts (auto) Neutrophils % Neutrophils % (Manual) Band Neutrophils % Lymphocytes % Lymphocytes % (Manual) Monocytes % Monocytes % (Manual) Eosinophils % Eosinophils % (Manual) Basophils % Basophils % (Manual) Myelocytes % (Man) Promyelocytes % (Man) Blast Cells % (Manual) Nucleated RBC % Metamyelocytes Hypochromia Platelet Estimate Polychromasia Poikilocytosis Anisocytosis Microcytosis Macrocytosis Sodium 138 Potassium 4.1 Chloride 100 Carbon Dioxide 25 Anion Gap 13 BUN 53 H Creatinine 6.4 H Creat Clearance w eGFR 7.01 POC Glucometer 234 262 Random Glucose 237 H Calcium 9.1 Phosphorus 6.4 H Magnesium 1.9 Active Medications Generic Name Dose Route Start Last Admin Trade Name Justinq PRN Reason Stop Dose Admin Acetaminophen 650 mg 08/09/18 09:51 08/09/18 23:10 Tylenol Oral Solution - PO 650 mg Q6H PRN Administration PAIN OR FEVER Acetaminophen/Butalbital/Caffeine 1 tablet 08/10/18 11:21 08/12/18 17:25 Fioricet - PO 1 tablet Q6H PRN Administration HEADACHE Amlodipine Besylate 10 mg 08/10/18 10:00 08/13/18 09:43 Norvasc - PO 10 mg DAILY NI Administration Bacitracin 1 applic 08/05/18 13:30 08/13/18 09:42 Bacitracin - TP Not Given DAILY NI Buprenorphine/Naloxone 1 each 08/06/18 18:00 08/13/18 11:39 Suboxone 2mg/0.5mg Sl Film - SL 1 each DAILY NI Administration Calcium Acetate 667 mg 08/08/18 17:30 08/13/18 16:54 Phoslo - PO 667 mg TIDCM NI Administration Collagenase 1 applic 08/05/18 21:30 08/13/18 15:11 Santyl - TP 1 applic DAILY NI Administration Protocol Escitalopram Oxalate 5 mg 08/09/18 10:00 08/13/18 11:37 Lexapro - PO 5 mg DAILY NI Administration Heparin Sodium (Porcine) 5,000 unit 08/06/18 22:00 08/13/18 15:51 Heparin - SQ Not Given TID NI Famotidine/Sodium Chloride 20 mg in 50 mls @ 100 mls/hr 08/04/18 23:13 Pepcid 20 Mg Premixed Ivpb - IVPB Q12H PRN DYSPEPSIA Insulin Aspart 1 vial 08/05/18 07:00 08/13/18 16:46 Novolog Vial Sliding Scale - SQ 4 units ACHS NI Administration Protocol Labetalol HCl 400 mg 08/07/18 10:00 08/13/18 09:43 Normodyne - PO 400 mg BID NI Administration Pregabalin 25 mg 08/09/18 22:00 08/12/18 21:33 Lyrica - PO 25 mg HS NI Administration Quetiapine Fumarate 50 mg 08/13/18 22:00 Seroquel - PO HS NI Trimethobenzamide HCl 200 mg 08/04/18 23:14 Tigan Injection - IM Q8H PRN NAUSEA ASSESSMENT/PLAN: Patient is a 48 year old female with past medical history of polysubstance abuse (on Subaxone), DM, HTN, CHF, DVT (s/p IVC filter, s/p Lovenox, not compliant), recent C.diff infection treated with Vancomycin 125mg PO for 10days , anxiety, depression, presented with diffuse abdominal pain accompanied by nausea and vomiting of 3 days. #Oliguria likely 2/2 Acute kidney injury: unclear etiology -pre-renal from dehydration (unlikely s/p IV hydration with no improvement) vs intrarenal 2/2 polysubstance abuse -Nephrology(Dr. Pace) consulted. Recommendations appreciated. -FeNa 12%, UPCR of 5 - consistent with tubular injury -Renal biopsy done, results did not contain any glomeruli, -will need repeat biopsy to be able to make a diagnosis -Biopsy deferred to tomorrow per IR -Will discuss plasma exchange to be started day following biopsy -Will need tunneled HD catheter placement, will discuss with vascular surgery -PR3 elevated (14.9). Possible ?vasculitis -Avoid ACEI/ARBs, NSAIDs, Fleets -Dose all meds for CrCl <20 -Rheumatology (Dr. Ferguson) consulted. #Left great toe wound -MRI without contrast: Focal fluid superficial to the skin surface along the plantar medial aspect of the distal phalanx of the first toe question early due to open wound. Faint bone marrow edema of the mid-distal phalanx, however, this could be due to motion artifact or due to bony reaction to the adjacent infectious process. Early osteomyelitis cannot be entirely excluded. Follow-up MRI recommended. -ID (Dr. Bonner) consulted. Recommendations appreciated. -Will not start patient on any abx -Will need repeat imaging studies after 3 months. -Podiatry (Dr. Ly) consulted. Recommendations appreciated. -Wound culture - no growth -Vascular surgery (Dr. Knox) consulted. Recommendations appreciated. -Wound care with: wash ulcer with 1/2 NS/ 1/2 Peroxide, apply Bacitracin ointment, cover with 4x4 -Glucose control #Diarrhea: resolved -Stool positive for C.diff antigen but negative toxin -ID (Dr. Bonner) consulted. #Opioid dependence -No more episodes of nausea or vomiting -COWS 0 -Discontinue Ativan -Continue home Seroquel 50mg PO Hs -Detox consulted (Dr. Urbano). Recommendations appreciated. -Restart Suboxone 2/0.5 mg SL daily prn. #DVT -Patient non-compliant with medications and follow-ups. -Last seen by Dr. Ruiz in May 2017, and has never followed up in the clinic -As per patient, last took Lovenox 1 month ago due to insurance problems, but upon med rec with pharmacy, has not picked up Lovenox >4 months. -Hematology (Dr. Duque) consulted. Recommendations appreciated. -chronic DVT right distal SFV and popliteal vein. ( unchanged since 11/2017) -In view of provoked DVT and lengthy duration of lovenox, change to DVT prophylaxis with heparin. -Would need anticoagulation. Compliance is the issue -Would start coumadin vs. Eliquis 2.5 mg bid #DM -A1c: 7.5 -Hold home medications -Insulin sliding scale implemented -BGM ACHS #HTN -Will resume home dose of Labetalol 400mg BID -Amlodipine 5 mg increased to 10mg daily. -Hold Lisinopril for now -Will continue to monitor #Anxiety/Depression -Hold Trazodone with prolonged QTc (513) -Will continue to monitor #FEN -Not on any standing fluids. -Electrolytes wnl, routine bmp monitoring -Renal diet #Prophylaxis -Heparin 5000units sq tid #Disposition -full code Visit type - Emergency Visit Emergency Visit: Yes ED Registration Date: 08/06/18 Care time: The patient presented to the Emergency Department on the above date and was hospitalized for further evaluation of their emergent condition. - New Patient This patient is new to me today: No - Critical Care Critical Care patient: No
--- NOTE | 2018-08-13 18:34 | PN ---
Progress Note (short form) - Note Progress Note: Patient seen and examined Offers no specific complaints Last Vital Signs Temp Pulse Resp BP Pulse Ox 98.5 F 75 18 124/73 96 08/13/18 14:29 08/13/18 14:29 08/13/18 14:29 08/13/18 14:29 08/12/18 21:00 HEENT: EULALIO, EOM Intact Oropharynx: No thrush, No mucositis Cor: RSR, No murmurs, No gallops Lungs: Clear to P&A Abd: Soft, Normal bowel sounds, No organomegaly, obese Ext:LE edema Skin: No rashes, Integument intact CBC, BMP 08/13/18 06:30 08/13/18 06:30 Current Medications Generic Name Dose Route Start Last Admin Trade Name Freq PRN Reason Stop Dose Admin Acetaminophen 650 mg 08/09/18 09:51 08/09/18 23:10 Tylenol Oral Solution - PO 650 mg Q6H PRN Administration PAIN OR FEVER Acetaminophen/Butalbital/Caffeine 1 tablet 08/10/18 11:21 08/12/18 17:25 Fioricet - PO 1 tablet Q6H PRN Administration HEADACHE Amlodipine Besylate 10 mg 08/10/18 10:00 08/13/18 09:43 Norvasc - PO 10 mg DAILY NI Administration Bacitracin 1 applic 08/05/18 13:30 08/13/18 09:42 Bacitracin - TP Not Given DAILY NI Buprenorphine/Naloxone 1 each 08/06/18 18:00 08/13/18 11:39 Suboxone 2mg/0.5mg Sl Film - SL 1 each DAILY NI Administration Calcium Acetate 667 mg 08/08/18 17:30 08/13/18 16:54 Phoslo - PO 667 mg TIDCM NI Administration Collagenase 1 applic 08/05/18 21:30 08/13/18 15:11 Santyl - TP 1 applic DAILY NI Administration Protocol Escitalopram Oxalate 5 mg 08/09/18 10:00 08/13/18 11:37 Lexapro - PO 5 mg DAILY NI Administration Heparin Sodium (Porcine) 5,000 unit 08/06/18 22:00 08/13/18 15:51 Heparin - SQ Not Given TID NI Famotidine/Sodium Chloride 20 mg in 50 mls @ 100 mls/hr 08/04/18 23:13 Pepcid 20 Mg Premixed Ivpb - IVPB Q12H PRN DYSPEPSIA Insulin Aspart 1 vial 08/05/18 07:00 08/13/18 16:46 Novolog Vial Sliding Scale - SQ 4 units ACHS NI Administration Protocol Labetalol HCl 400 mg 08/07/18 10:00 08/13/18 09:43 Normodyne - PO 400 mg BID NI Administration Pregabalin 25 mg 08/09/18 22:00 08/12/18 21:33 Lyrica - PO 25 mg HS NI Administration Quetiapine Fumarate 50 mg 08/13/18 22:00 Seroquel - PO HS NI Trimethobenzamide HCl 200 mg 08/04/18 23:14 Tigan Injection - IM Q8H PRN NAUSEA Impression: ANASTASIA Polysubstance abuse For Kidney biopsy ? plasma exchange , ? Rituxin, ? cytotoxics per rheumatology/renal.
--- NOTE | 2018-08-13 21:17 | CONSULT ---
Consult Consult Specialty:: Rheumatology - History of Present Illness History of Present Illness: 48 y/o F with PMH polysubstance abuse, DM, HTN, CHF admitted with Hx of diarrhea and fever, In Hosp acute renal failure - started HD. Proteinase-3 positive C-ANCA negative. Rule out vasculitis. -Polysubstance abuse: cocaine: stopped 20 years ago, Heroin for the last 2 1/2 years - had stopped for 18 months, relapsed 1 month ago), Three days prior to admission used one bag of heroin -2 1/2 years ago after overdose - had induced coma- AKD required HD. Afterwards DVT. Had IVC filter. Since then anticoagulated. Apparently had relapse DVT in spite of anticoagulation. Renal function normalized. -3 year history of chronic ulcer in the left 1st toe- attributed to diabetes. improving. -6 weeks ago dx c.diff was tx with vanco 125mg [id number] - since then persistent diarrhea. Patient reports that prior to admission, she accidentally took double her normal dose of labetalol - developed dizziness, fever, abdominal pain, continued having diarrhea. On ED she was hypotensive. Creatinine on June 2018 admission: 0.8 to 1.3 and urinalysis had protein 3+ and no blood. On admission creatinine 3.8, increased to 13.2. On HD for the last 4 days. No fever since admission. ESR 11, LFT normal. Proteinase-3: 14.9. C-ANCA, P-ANCA, myeloperoxidase, ARIES and glomerular basal membrane ab all negative. Serology for hepatitis A, B and C, HIV and influenza were negative. FeNa consistent with tubular injury. Toxicity positive for Ectasy. CXR: lungs, nina and mediastinum were normal. The patient had kidney biopsy - had no glomeruli - scheduled for new biopsy tomorrow. 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 HGBA1c PENDING.) - Past Surgical History Past Surgical History: Yes: Cholecystectomy, Colonoscopy - Alcohol/Substance Use Hx Alcohol Use: No - Smoking History Smoking history: Never smoked Have you smoked in the past 12 months: Yes Aproximately how many cigarettes per day: 5 - Social History Usual Living Arrangement: With Parent ADL: Independent History of Recent Travel: No Home Medications - Allergies Allergies/Adverse Reactions: Allergies Allergy/AdvReac Type Severity Reaction Status Date / Time ondansetron [From Zofran] AdvReac Severe Verified 08/04/18 15:36 - Home Medications Home Medications: Ambulatory Orders Pregabalin [Lyrica] 100 mg PO TID 10/02/16 Zolpidem Tartrate [Ambien] 10 mg PO HS 01/23/18 traZODone HCL [Desyrel -] 100 mg PO HS 02/13/18 Quetiapine Fumarate [Seroquel -] 50 mg PO HS #30 tablet 05/17/18 Labetalol HCl [Normodyne -] 400 mg PO BID #120 tablet 06/19/18 Lisinopril 20 mg PO DAILY #30 tablet 06/21/18 Sitagliptin Phos/Metformin HCl [Janumet Xr 50-500 mg Tablet] 1 each PO DAILY # 30 tbmp.24hr 06/21/18 Buprenorphine/Naloxone [Suboxone 2Mg/0.5MG Sl Film -] 1 combo SL DAILY #7 packet MDD 1 06/26/18 Escitalopram Oxalate [Lexapro -] 5 mg PO DAILY 08/06/18 Family Disease History - Family Disease History Family Disease History: Diabetes: Father (DM, etoh), Mother, Brother, Heart Disease: Grandparent (massive CVA in his early 60s) Review of Systems - Review of Systems Constitutional: reports: Malaise Eyes: reports: No Symptoms HENT: reports: No Symptoms Neck: reports: No Symptoms Cardiovascular: reports: No Symptoms Respiratory: reports: No Symptoms Gastrointestinal: reports: Diarrhea Musculoskeletal: reports: No Symptoms Integumentary: reports: Other (Lesions related to heroin popping.) Physical Exam Vital Signs: Vital Signs Temperature 97.9 F 08/13/18 18:46 Pulse Rate 66 08/13/18 18:46 Respiratory Rate 18 08/13/18 18:46 Blood Pressure 130/86 08/13/18 18:46 O2 Sat by Pulse Oximetry (%) 96 08/12/18 21:00 Constitutional: Yes: Mild Distress Eyes: Yes: WNL HENT: Yes: WNL Neck: Yes: WNL Cardiovascular: Yes: WNL Respiratory: Yes: WNL Gastrointestinal: Yes: WNL Musculoskeletal: Yes: WNL Labs: CBC, BMP 08/13/18 06:30 08/13/18 06:30 Laboratory Tests 08/04/18 08/04/18 08/06/18 16:57 22:03 06:30 ESR 11 Calcium Phosphorus Magnesium Total Bilirubin AST ALT Alkaline Phosphatase Creatine Kinase 22 L Total Protein Albumin MDMA (Ecstasy) Screen ARIES Screen c-ANCA Proteinase 3 (PR3) p-ANCA Atypical p-ANCA Myeloperoxidase Ab Glomerular Base Memb Ab Hepatitis A IgM Ab Hep Bs Antigen Hep B Core IgM Ab Hepatitis C Antibody HIV 1&2 Antibody Screen HIV P24 Antigen Influenza A (Rapid) Negative Influenza B (Rapid) Negative 08/06/18 08/06/18 08/06/18 17:45 19:58 19:58 ESR Calcium Phosphorus Magnesium Total Bilirubin AST ALT Alkaline Phosphatase Creatine Kinase Total Protein Albumin MDMA (Ecstasy) Screen Positive A* ARIES Screen c-ANCA <1:20 Proteinase 3 (PR3) 14.9 H p-ANCA <1:20 Atypical p-ANCA <1:20 Myeloperoxidase Ab <9.0 Glomerular Base Memb Ab Hepatitis A IgM Ab Hep Bs Antigen Hep B Core IgM Ab Hepatitis C Antibody HIV 1&2 Antibody Screen Negative HIV P24 Antigen Negative Influenza A (Rapid) Influenza B (Rapid) 08/06/18 08/06/18 08/12/18 19:58 20:00 06:20 ESR Calcium 9.3 Phosphorus 6.2 H Magnesium 2.3 Total Bilirubin 0.6 AST 9 L ALT 20 Alkaline Phosphatase 74 Creatine Kinase Total Protein 7.1 Albumin 3.4 MDMA (Ecstasy) Screen ARIES Screen Negative c-ANCA Proteinase 3 (PR3) p-ANCA Atypical p-ANCA Myeloperoxidase Ab Glomerular Base Memb Ab 2 Hepatitis A IgM Ab Negative Hep Bs Antigen Negative Hep B Core IgM Ab Negative Hepatitis C Antibody 0.1 HIV 1&2 Antibody Screen HIV P24 Antigen Influenza A (Rapid) Influenza B (Rapid) Problem List - Problems (1) ANASTASIA (acute kidney injury) Assessment/Plan: Acute renal insufficiency, proteinase-3 positive, c-ANCA negative. Clinical picture started 3 days after heroin use. Proteinase-3 positive with negative IF C-ANCA usually relates to non-vasculitis inflammatory conditions. Probable acute interstitial nephritis and I agree with Dr. Pace, rule out acute tubular necrosis, FSGS or RPG. It is unlikely that the patient has vasculitis. Plan: UA. Patient scheduled for new kidney Bx tomorrow. Code(s): N17.9 - ACUTE KIDNEY FAILURE, UNSPECIFIED
[2018-08-13] MEDS: QUEtiapine FUMARATE 25 MG TABLET (FP) PO SCH (21:19)
[2018-08-13] MEDS: PREGABALIN 25 MG CAPSULE PO SCH (21:19)
[2018-08-13] MEDS ORDERED: INSULIN (NOVOLOG) ASPART 100 UNITS/ML 10ML VIAL ONE (21:23)
[2018-08-14] MEDS: INSULIN SLIDING SCALE (NOVOLOG) 1 VIAL SQ SCH ×4 (06:28→22:21)
[2018-08-14 07:31] LABS: HEMATOCRIT 31.9 % (32.4-45.2); HEMOGLOBIN 11.1 GM/dL (10.7-15.3); MCH 30.8 pg (25.7-33.7); MCHC 34.7 g/dl (32.0-36.0); MEAN CELL VOLUME 88.7 fl (80-96); MEAN PLT VOLUME 9.1 fl (7.5-11.1); PLATELET COUNT 256 K/MM3 (134-434); RBC 3.59 M/mm3 (3.60-5.2); RDW 14.4 % (11.6-15.6); WHITE BLOOD COUNT 10.1 K/mm3 (4.0-10.0)
--- NOTE | 2018-08-14 07:47 | PN ---
Progress Note (short form) - Note Progress Note: Vascular Surgery Plan for Permacath placement once pt is medically stable/cleared.
[2018-08-14 07:57] LABS: ANION GAP 13 MMOL/L (8-16); BLOOD UREA NITROGEN 77 mg/dL (7-18); CALCIUM 8.8 mg/dL (8.5-10.1); CHLORIDE 98 mmol/L (98-107); CO2 25 mmol/L (21-32); CREATININE 6.4 mg/dL (0.55-1.3); GLUCOSE,RANDOM 259 mg/dL (74-106); PHOSPHOROUS 6.9 mg/dL (2.5-4.9); POTASSIUM 3.9 mmol/L (3.5-5.1); SODIUM 136 mmol/L (136-145)
[2018-08-14] MEDS: LABETALOL HCL 200 MG TABLET (FP) PO SCH ×2 (10:59→22:21)
[2018-08-14] MEDS: COLLAGENASE CLOSTRIDIUM HIST. 30 GRAMS TUBE TP SCH (10:59)
[2018-08-14] MEDS: CALCIUM ACETATE 667 MG CAPSULE (FP) PO SCH ×3 (10:59→17:08)
[2018-08-14] MEDS: BACITRACIN 15 GM TUBE TOPICAL OINTMENT TP SCH (10:59)
[2018-08-14] MEDS: amLODIPine BESYLATE 10 MG TABLET (FP) PO SCH (10:59)
[2018-08-14] MEDS: ESCITALOPRAM OXALATE 10 MG TABLET (FP) PO SCH (10:59)
[2018-08-14] MEDS ORDERED: LORazepam 2 MG/ML SDV VIAL IVPUSH ONE (11:00)
[2018-08-14] MEDS: BUPRENORPHINE/NALOXONE 2 MG/0.5 MG FILM PACKET SL SCH (11:00)
--- NOTE | 2018-08-14 12:08 | PN ---
Progress Note (short form) - Note Progress Note: Renal follow up for ANASTASIA Pt at renal biopsy no overnight events seen by Rheum this am Vital Signs Temperature 98.3 F 08/14/18 10:00 Pulse Rate 61 08/14/18 10:00 Respiratory Rate 20 08/14/18 10:00 Blood Pressure 144/93 08/14/18 10:00 O2 Sat by Pulse Oximetry (%) 96 08/13/18 21:00 Intake & Output 08/11/18 08/12/18 08/13/18 08/14/18 23:59 23:59 23:59 23:59 Intake Total 780 950 100 0 Output Total 650 450 Balance 130 500 100 0 CBC, BMP 08/14/18 06:30 08/14/18 06:30 Current Medications Acetaminophen (Tylenol Oral Solution -) 650 mg PO Q6H PRN PRN Reason: PAIN OR FEVER Last Admin: 08/09/18 23:10 Dose: 650 mg Acetaminophen/Butalbital/Caffeine (Fioricet -) 1 tablet PO Q6H PRN PRN Reason: HEADACHE Last Admin: 08/12/18 17:25 Dose: 1 tablet Amlodipine Besylate (Norvasc -) 10 mg PO DAILY [facility] Last Admin: 08/14/18 10:59 Dose: 10 mg Bacitracin (Bacitracin -) 1 applic TP DAILY [facility] Last Admin: 08/14/18 10:59 Dose: Not Given Buprenorphine/Naloxone (Suboxone 2mg/0.5mg Sl Film -) 1 each SL DAILY [facility] Last Admin: 08/14/18 11:00 Dose: 1 each Calcium Acetate (Phoslo -) 667 mg PO TIDCM [facility] Last Admin: 08/14/18 10:59 Dose: 667 mg Collagenase (Santyl -) 1 applic TP DAILY [facility]; Protocol Last Admin: 08/14/18 10:59 Dose: 1 applic Escitalopram Oxalate (Lexapro -) 5 mg PO DAILY [facility] Last Admin: 08/14/18 10:59 Dose: 5 mg Heparin Sodium (Porcine) (Heparin -) 5,000 unit SQ TID [facility] Last Admin: 08/13/18 21:28 Dose: Not Given Famotidine/Sodium Chloride (Pepcid 20 Mg Premixed Ivpb -) 20 mg in 50 mls @ 100 mls/hr IVPB Q12H PRN PRN Reason: DYSPEPSIA Insulin Aspart (Novolog Vial Sliding Scale -) 1 vial SQ ACHS [facility]; Protocol Last Admin: 08/14/18 06:28 Dose: 6 units Labetalol HCl (Normodyne -) 400 mg PO BID [facility] Last Admin: 08/14/18 10:59 Dose: 400 mg Prednisone (Deltasone -) 60 mg PO DAILY [facility] Pregabalin (Lyrica -) 25 mg PO HS [facility] Last Admin: 08/13/18 21:19 Dose: 25 mg Quetiapine Fumarate (Seroquel -) 50 mg PO HS [facility] Last Admin: 08/13/18 21:19 Dose: 50 mg Trimethobenzamide HCl (Tigan Injection -) 200 mg IM Q8H PRN PRN Reason: NAUSEA 48 year old woman with hx of CHF, DVT, DM, Polysubstance abuse, hx of renal failure requiring acute dialysis who presented with abd pain with N/V and foot pain and noted to have ANASTASIA. #ANASTASIA likely due to ATN vs. FSGS/ATN/AIN/RPG related to heroin use #Nausea and Vomiting #Polysubstance abuse #DM #HTN #Lactic acidosis now resolved Cr stable over the last 48 hours, possibly indicating improvement in renal function no plan for dialysis today, if Cr starts to improve tomorrow may be able to remove dialysis catheter getting biopsy today Rheum input appreciated, less likely overt vasculitis and + PR3 anca could be consistent in acute inflamation will continue Prednisone 60mg Daily will defer plasma exchange pending biopsy result continue amlodpine, labetalol Dose all meds for CrCl < 10 Alejandro Pace DO
[2018-08-14] MEDS ORDERED: MIDAZOLAM HCL 2 MG/2 ML SINGLE DOSE VIAL IVPUSH ONE ×2 (12:45→12:50)
[2018-08-14] MEDS ORDERED: hydrALAZINE HCL 20 MG/ML VIAL IVPUSH ONE (12:45)
[2018-08-14] MEDS ORDERED: DESMOPRESSIN ACETATE 4 MCG/ML AMP IVPB ONE (13:08)
[2018-08-14] MEDS: predniSONE 20 MG TABLET (UD) PO SCH (13:45)
[2018-08-14 13:56] LABS: URINE APPEARANCE CLEAR; URINE BILIRUBIN NEGATIVE (<2.0 mg/dL); URINE COLOR LTYELLOW; URINE GLUCOSE (UA) 2+ (NEGATIVE); URINE KETONE NEGATIVE (NEGATIVE); URINE LEUK ESTERASE TRACE (NEGATIVE); URINE NITRITE NEGATIVE (NEGATIVE); URINE PROTEIN 1+ (NEGATIVE); URINE UROBILINOGEN NEGATIVE mg/dL (0.2-1.0)
[2018-08-14 14:32] LABS: EPI CELLS RARE /HPF (FEW); URINE HYALINE CAST 2 /lpf
--- NOTE | 2018-08-14 15:37 | PN ---
Physical Exam: SUBJECTIVE: Patient seen and examined at bedside this morning. No acute events overnight. Patient has no new complaints. Patient kept on NPO overnight for renal biopsy today. OBJECTIVE: Vital Signs Period Temp Pulse Resp BP Sys/Puente Pulse Ox Last 24 Hr 97.7 F-98.3 F 61-82 15-20 116-167/70-107 95-96 GENERAL: The patient is awake, alert, and fully oriented, in no acute distress. HEAD: Normal with no signs of trauma. EYES: PERRLA, EOMI, sclera anicteric, conjunctiva clear. ENT: Ears normal, nares patent, oropharynx clear without exudates, moist mucous membranes. NECK: Trachea midline, full range of motion, supple. LUNGS: Breath sounds equal, clear to auscultation bilaterally, decreased bilateral bases. HEART: Regular rate and rhythm, S1, S2 without murmur, rub or gallop. ABDOMEN: Soft, nontender, nondistended, normoactive bowel sounds, no guarding. EXTREMITIES: 2+ pulses, warm, well-perfused, no edema. +multiple scratch goel and ulcerations on b/l LE; LLE: +wound on left big toe. NEUROLOGICAL: Cranial nerves II through XII grossly intact. Normal speech, gait not observed. PSYCH: Normal mood, normal affect. SKIN: Warm, dry, normal turgor, no rashes or lesions noted Laboratory Results - last 24 hr 08/13/18 08/13/18 08/13/18 11:48 16:34 21:20 WBC RBC Hgb Hct MCV MCH MCHC RDW Plt Count MPV Sodium Potassium Chloride Carbon Dioxide Anion Gap BUN Creatinine Creat Clearance w eGFR POC Glucometer 262 241 369 Random Glucose Calcium Phosphorus Magnesium Urine Color Urine Appearance Urine pH Ur Specific [place] Urine Protein Urine Glucose (UA) Urine Ketones Urine Blood Urine Nitrite Urine Bilirubin Urine Urobilinogen Ur Leukocyte Esterase Urine WBC (Auto) Urine RBC (Auto) Ur Epithelial Cells Hyaline Casts Ur Random Sodium Urine Creatinine 08/14/18 08/14/18 08/14/18 00:02 00:02 05:43 WBC RBC Hgb Hct MCV MCH MCHC RDW Plt Count MPV Sodium Potassium Chloride Carbon Dioxide Anion Gap BUN Creatinine Creat Clearance w eGFR POC Glucometer 257 Random Glucose Calcium Phosphorus Magnesium Urine Color Urine Appearance Urine pH Ur Specific [place] Urine Protein Urine Glucose (UA) Urine Ketones Urine Blood Urine Nitrite Urine Bilirubin Urine Urobilinogen Ur Leukocyte Esterase Urine WBC (Auto) Urine RBC (Auto) Ur Epithelial Cells Hyaline Casts Ur Random Sodium 41 Urine Creatinine 68.0 08/14/18 08/14/18 08/14/18 06:30 06:30 13:30 WBC 10.1 H RBC 3.59 L Hgb 11.1 Hct 31.9 L MCV 88.7 MCH 30.8 MCHC 34.7 RDW 14.4 Plt Count 256 MPV 9.1 Sodium 136 Potassium 3.9 Chloride 98 Carbon Dioxide 25 Anion Gap 13 BUN 77 H Creatinine 6.4 H Creat Clearance w eGFR 7.01 POC Glucometer Random Glucose 259 H Calcium 8.8 Phosphorus 6.9 H Magnesium 2.0 Urine Color Ltyellow Urine Appearance Clear Urine pH 6.0 Ur Specific [place] 1.014 Urine Protein 1+ H Urine Glucose (UA) 2+ H Urine Ketones Negative Urine Blood 1+ H Urine Nitrite Negative Urine Bilirubin Negative Urine Urobilinogen Negative Ur Leukocyte Esterase Trace Urine WBC (Auto) 18 Urine RBC (Auto) 10 Ur Epithelial Cells Rare Hyaline Casts 2 Ur Random Sodium Urine Creatinine Active Medications Generic Name Dose Route Start Last Admin Trade Name Freq PRN Reason Stop Dose Admin Acetaminophen 650 mg 08/09/18 09:51 08/09/18 23:10 Tylenol Oral Solution - PO 650 mg Q6H PRN Administration PAIN OR FEVER Acetaminophen/Butalbital/Caffeine 1 tablet 08/10/18 11:21 08/12/18 17:25 Fioricet - PO 1 tablet Q6H PRN Administration HEADACHE Amlodipine Besylate 10 mg 08/10/18 10:00 08/14/18 10:59 Norvasc - PO 10 mg DAILY [facility] Administration Bacitracin 1 applic 08/05/18 13:30 08/14/18 10:59 Bacitracin - TP Not Given DAILY NI Buprenorphine/Naloxone 1 each 08/06/18 18:00 08/14/18 11:00 Suboxone 2mg/0.5mg Sl Film - SL 1 each DAILY [facility] Administration Calcium Acetate 667 mg 08/08/18 17:30 08/14/18 13:45 Phoslo - PO 667 mg TIDCM [facility] Administration Collagenase 1 applic 08/05/18 21:30 08/14/18 10:59 Santyl - TP 1 applic DAILY [facility] Administration Protocol Escitalopram Oxalate 5 mg 08/09/18 10:00 08/14/18 10:59 Lexapro - PO 5 mg DAILY [facility] Administration Heparin Sodium (Porcine) 5,000 unit 08/06/18 22:00 08/13/18 21:28 Heparin - SQ Not Given TID NI Famotidine/Sodium Chloride 20 mg in 50 mls @ 100 mls/hr 08/04/18 23:13 Pepcid 20 Mg Premixed Ivpb - IVPB Q12H PRN DYSPEPSIA Insulin Aspart 1 vial 08/05/18 07:00 08/14/18 13:45 Novolog Vial Sliding Scale - SQ 2 units ACHS NI Administration Protocol Labetalol HCl 400 mg 08/07/18 10:00 08/14/18 10:59 Normodyne - PO 400 mg BID NI Administration Prednisone 60 mg 08/14/18 12:30 08/14/18 13:45 Deltasone - PO 60 mg DAILY [facility] Administration Pregabalin 25 mg 08/09/18 22:00 08/13/18 21:19 Lyrica - PO 25 mg HS NI Administration Quetiapine Fumarate 50 mg 08/13/18 22:00 08/13/18 21:19 Seroquel - PO 50 mg HS NI Administration Trimethobenzamide HCl 200 mg 08/04/18 23:14 Tigan Injection - IM Q8H PRN NAUSEA ASSESSMENT/PLAN: Patient is a 48 year old female with past medical history of polysubstance abuse (on Subaxone), DM, HTN, CHF, DVT (s/p IVC filter, s/p Lovenox, not compliant), recent C.diff infection treated with Vancomycin 125mg PO for 10days , anxiety, depression, presented with diffuse abdominal pain accompanied by nausea and vomiting of 3 days. #Oliguria likely 2/2 Acute kidney injury: unclear etiology -pre-renal from dehydration (unlikely s/p IV hydration with no improvement) vs intrarenal 2/2 polysubstance abuse -Nephrology(Dr. Pace) consulted. Recommendations appreciated. -FeNa 12%, UPCR of 5 - consistent with tubular injury -Renal biopsy done, results did not contain any glomeruli, -Repeat biopsy done today -will continue Prednisone 60mg Daily -will defer plasma exchange pending biopsy result -Avoid ACEI/ARBs, NSAIDs, Fleets -Dose all meds for CrCl <10 -Rheumatology (Dr. Ferguson) consulted. Recommendations appreciated. -Acute renal insufficiency, proteinase-3 positive, c-ANCA negative. Clinical picture started 3 days after heroin use. -Proteinase-3 positive with negative IF C-ANCA usually relates to non- vasculitis inflammatory conditions. -Repeat UA: 1+ JEANNE, 2+Glu, 1+Blood, 18 WBC, 10 RBC #Left great toe wound -MRI without contrast: Focal fluid superficial to the skin surface along the plantar medial aspect of the distal phalanx of the first toe question early due to open wound. Faint bone marrow edema of the mid-distal phalanx, however, this could be due to motion artifact or due to bony reaction to the adjacent infectious process. Early osteomyelitis cannot be entirely excluded. Follow-up MRI recommended. -ID (Dr. Bonner) consulted. Recommendations appreciated. -Will not start patient on any abx -Will need repeat imaging studies after 3 months. -Podiatry (Dr. Ly) consulted. Recommendations appreciated. -Wound culture - no growth -Vascular surgery (Dr. Knox) consulted. Recommendations appreciated. -Wound care with: wash ulcer with 1/2 NS/ 1/2 Peroxide, apply Bacitracin ointment, cover with 4x4 -Glucose control #Diarrhea: resolved -Stool positive for C.diff antigen but negative toxin -ID (Dr. Bonner) consulted. #Opioid dependence -No more episodes of nausea or vomiting -COWS 0 -Discontinue Ativan -Continue home Seroquel 50mg PO Hs -Detox consulted (Dr. Urbano). Recommendations appreciated. -Restart Suboxone 2/0.5 mg SL daily prn. #DVT -Patient non-compliant with medications and follow-ups. -Last seen by Dr. Ruiz in May 2017, and has never followed up in the clinic -As per patient, last took Lovenox 1 month ago due to insurance problems, but upon med rec with pharmacy, has not picked up Lovenox >4 months. -Hematology (Dr. Duque) consulted. Recommendations appreciated. -chronic DVT right distal SFV and popliteal vein. ( unchanged since 11/2017) -In view of provoked DVT and lengthy duration of lovenox, change to DVT prophylaxis with heparin. -Would need anticoagulation. Compliance is the issue -Would start coumadin vs. Eliquis 2.5 mg bid #DM -A1c: 7.5 -Hold home medications -Insulin sliding scale implemented -BGM ACHS #HTN -Will resume home dose of Labetalol 400mg BID -Amlodipine 5 mg increased to 10mg daily. -Hold Lisinopril for now -Will continue to monitor #Anxiety/Depression -Hold Trazodone with prolonged QTc (513) -Will continue to monitor #FEN -Not on any standing fluids. -Electrolytes wnl, routine bmp monitoring -Renal diet #Prophylaxis -Heparin 5000units sq tid #Disposition -full code Visit type - Emergency Visit Emergency Visit: Yes ED Registration Date: 08/06/18 Care time: The patient presented to the Emergency Department on the above date and was hospitalized for further evaluation of their emergent condition. - New Patient This patient is new to me today: No - Critical Care Critical Care patient: No
--- NOTE | 2018-08-14 17:57 | PN ---
Teaching Attending Note Name of Resident: Nita Joseph ATTENDING PHYSICIAN STATEMENT I saw and evaluated the patient. I reviewed the resident's note and discussed the case with the resident. I agree with the resident's findings and plan as documented. SUBJECTIVE: Patient is feeling better , no acute distress. OBJECTIVE: Vital Signs Temperature 97.7 F 08/14/18 14:24 Pulse Rate 82 08/14/18 14:24 Respiratory Rate 20 08/14/18 14:24 Blood Pressure 116/70 08/14/18 14:24 O2 Sat by Pulse Oximetry (%) 95 08/14/18 13:36 GENERAL: The patient is awake, alert, and fully oriented, in no acute distress. HEAD: Normal with no signs of trauma. EYES: PERRLA, EOMI, sclera anicteric, conjunctiva clear. ENT: Ears normal, oropharynx clear without exudates, moist mucous membranes. NECK: Trachea midline, full range of motion, supple. LUNGS: Breath sounds equal, clear to auscultation bilaterally, decreased bilateral bases. HEART: Regular rate and rhythm, S1, S2 without murmur, rub or gallop. ABDOMEN: Soft, nontender, nondistended, normoactive bowel sounds, no guarding. EXTREMITIES: 2+ pulses, warm, well-perfused, no edema. positive for wound on left big toe. NEUROLOGICAL: Cranial nerves II through XII grossly intact. Normal speech, gait not observed. PSYCH: Normal mood, normal affect. SKIN: Warm, dry, normal turgor, no rashes or lesions noted CBCD WBC 10.1 K/mm3 (4.0-10.0) H 08/14/18 06:30 RBC 3.59 M/mm3 (3.60-5.2) L 08/14/18 06:30 Hgb 11.1 GM/dL (10.7-15.3) 08/14/18 06:30 Hct 31.9 % (32.4-45.2) L 08/14/18 06:30 MCV 88.7 fl (80-96) 08/14/18 06:30 MCHC 34.7 g/dl (32.0-36.0) 08/14/18 06:30 RDW 14.4 % (11.6-15.6) 08/14/18 06:30 Plt Count 256 K/MM3 (134-434) 08/14/18 06:30 MPV 9.1 fl (7.5-11.1) 08/14/18 06:30 CMP Sodium 136 mmol/L (136-145) 08/14/18 06:30 Potassium 3.9 mmol/L (3.5-5.1) 08/14/18 06:30 Chloride 98 mmol/L (98-107) 08/14/18 06:30 Carbon Dioxide 25 mmol/L (21-32) 08/14/18 06:30 Anion Gap 13 MMOL/L (8-16) 08/14/18 06:30 BUN 77 mg/dL (7-18) H 08/14/18 06:30 Creatinine 6.4 mg/dL (0.55-1.3) H 08/14/18 06:30 Creat Clearance w eGFR 7.01 (>60) 08/14/18 06:30 Random Glucose 259 mg/dL (74-106) H 08/14/18 06:30 Calcium 8.8 mg/dL (8.5-10.1) 08/14/18 06:30 Total Bilirubin 0.6 mg/dL (0.2-1) 08/12/18 06:20 AST 9 U/L (15-37) L 08/12/18 06:20 ALT 20 U/L (13-61) 08/12/18 06:20 Alkaline Phosphatase 74 U/L (45-117) 08/12/18 06:20 Total Protein 7.1 g/dl (6.4-8.2) 08/12/18 06:20 Albumin 3.4 g/dl (3.4-5.0) 08/12/18 06:20 CARDIAC ENZYMES Creatine Kinase 22 IU/L (26-192) L 08/04/18 16:57 Troponin I < 0.02 ng/ml (0.00-0.05) 08/04/18 16:57 Current Medications Generic Name Dose Route Start Last Admin Trade Name Freq PRN Reason Stop Dose Admin Acetaminophen 650 mg 08/09/18 09:51 08/09/18 23:10 Tylenol Oral Solution - PO 650 mg Q6H PRN Administration PAIN OR FEVER Acetaminophen/Butalbital/Caffeine 1 tablet 08/10/18 11:21 08/12/18 17:25 Fioricet - PO 1 tablet Q6H PRN Administration HEADACHE Amlodipine Besylate 10 mg 08/10/18 10:00 08/14/18 10:59 Norvasc - PO 10 mg DAILY NI Administration Bacitracin 1 applic 08/05/18 13:30 08/14/18 10:59 Bacitracin - TP Not Given DAILY NI Buprenorphine/Naloxone 1 each 08/06/18 18:00 08/14/18 11:00 Suboxone 2mg/0.5mg Sl Film - SL 1 each DAILY NI Administration Calcium Acetate 667 mg 08/08/18 17:30 08/14/18 17:08 Phoslo - PO 667 mg TIDCM NI Administration Collagenase 1 applic 08/05/18 21:30 08/14/18 10:59 Santyl - TP 1 applic DAILY NI Administration Protocol Escitalopram Oxalate 5 mg 08/09/18 10:00 08/14/18 10:59 Lexapro - PO 5 mg DAILY NI Administration Heparin Sodium (Porcine) 5,000 unit 08/06/18 22:00 08/13/18 21:28 Heparin - SQ Not Given TID NI Famotidine/Sodium Chloride 20 mg in 50 mls @ 100 mls/hr 08/04/18 23:13 Pepcid 20 Mg Premixed Ivpb - IVPB Q12H PRN DYSPEPSIA Insulin Aspart 1 vial 08/05/18 07:00 08/14/18 17:08 Novolog Vial Sliding Scale - SQ 6 units ACHS NI Administration Protocol Labetalol HCl 400 mg 08/07/18 10:00 08/14/18 10:59 Normodyne - PO 400 mg BID NI Administration Prednisone 60 mg 08/14/18 12:30 08/14/18 13:45 Deltasone - PO 60 mg DAILY NI Administration Pregabalin 25 mg 08/09/18 22:00 08/13/18 21:19 Lyrica - PO 25 mg HS NI Administration Quetiapine Fumarate 50 mg 08/13/18 22:00 08/13/18 21:19 Seroquel - PO 50 mg HS NI Administration Trimethobenzamide HCl 200 mg 08/04/18 23:14 Tigan Injection - IM Q8H PRN NAUSEA Home Medications Medication Instructions Recorded Pregabalin [Lyrica] 100 mg PO TID 10/02/16 Zolpidem Tartrate [Ambien] 10 mg PO HS 01/23/18 traZODone HCL [Desyrel -] 100 mg PO HS 02/13/18 Quetiapine Fumarate [Seroquel -] 50 mg PO HS #30 tablet 05/17/18 Labetalol HCl [Normodyne -] 400 mg PO BID #120 tablet 06/19/18 Lisinopril 20 mg PO DAILY #30 tablet 06/21/18 Sitagliptin Phos/Metformin HCl 1 each PO DAILY #30 tbmp.24hr 06/21/18 [Janumet Xr 50-500 mg Tablet] Buprenorphine/Naloxone [Suboxone 1 combo SL DAILY #7 packet MDD 1 06/26/18 2Mg/0.5MG Sl Film -] Escitalopram Oxalate [Lexapro -] 5 mg PO DAILY 08/06/18 ASSESSMENT AND PLAN: Patient is a 48 y/o female with h/o HTN, DM ,depression ,anxiety, PE/DVT, s/p IVCF, substance abuse ,chronic lower ext ulcers, who presented after heroin use and overdosing on labetalol . she was found to have ANASTASIA. 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 possible vasculitis, repeat Bx today will nestor for the bx result, on received steroids , posiible HD if no improvement. # HTN: cont labetalol , and norvasc # RO, resolved . fioricet if needed # Chronic DVT: h/o IVCF, not compliant with her AC. appreciate heme input. [facility] to be decided depending on course. ( dr. Duque d/w Dr. Ruiz) # DM: SSI # Depression/anxiety:cont lexapro and seroquel. #Left 1st toe ulcer. repeat MRI in 3 months , cont santyl daily , orthowedge shoes upon dc # Heroin abuse: cont subaxone DVT Px: Heparin
--- NOTE | 2018-08-14 18:06 | PN ---
Progress Note (short form) - Note Progress Note: Prior notes reviewed Await results of 2nd renal biopsy performed today without untoward effect.
--- NOTE | 2018-08-14 19:55 | PN ---
Progress Note (short form) - Note Progress Note: follow up left big toe. vss, tmax=98.0 +grade 3 wound left big toe improving, -drainage, -cellulitis no growth of toe culture grade 2-3 wound Santyl dressing change daily. Offloading. Wound care outpatient. Will follow.
[2018-08-14] MEDS: PREGABALIN 25 MG CAPSULE PO SCH (22:21)
[2018-08-14] MEDS: QUEtiapine FUMARATE 25 MG TABLET (FP) PO SCH (22:21)
[2018-08-15] MEDS: INSULIN SLIDING SCALE (NOVOLOG) 1 VIAL SQ SCH ×5 (00:06→21:39)
[2018-08-15] MEDS: HEPARIN NA (PORCINE) 5,000 UNITS/ML 1ML VIAL SQ SCH ×3 (06:28→21:32)
[2018-08-15 07:25] LABS: BASO % 0.3 % (0-2.0); HEMATOCRIT 32.2 % (32.4-45.2); HEMOGLOBIN 10.8 GM/dL (10.7-15.3); LYMPH % 9.4 % (8-40); MCHC 33.4 g/dl (32.0-36.0); MEAN CELL VOLUME 89.6 fl (80-96); MEAN PLT VOLUME 9.2 fl (7.5-11.1); NEUT % 79.3 % (42.8-82.8); PLATELET COUNT 259 K/MM3 (134-434); RDW 14.6 % (11.6-15.6); WHITE BLOOD COUNT 11.5 K/mm3 (4.0-10.0)
[2018-08-15 07:49] LABS: ALBUMIN 3.7 g/dl (3.4-5.0); ALK PHOS 69 U/L (45-117); ANION GAP 14 MMOL/L (8-16); BILIRUBIN,TOTAL 0.5 mg/dL (0.2-1); BLOOD UREA NITROGEN 101 mg/dL (7-18); CALCIUM 8.8 mg/dL (8.5-10.1); CHLORIDE 101 mmol/L (98-107); CO2 26 mmol/L (21-32); CREATININE 6.2 mg/dL (0.55-1.3); MAGNESIUM 1.8 mg/dL (1.8-2.4); PHOSPHOROUS 5.4 mg/dL (2.5-4.9); POTASSIUM 3.6 mmol/L (3.5-5.1); SGOT/AST 16 U/L (15-37); SGPT/ALT 34 U/L (13-61); SODIUM 141 mmol/L (136-145); TOT PROT 6.7 g/dl (6.4-8.2)
[2018-08-15 08:13] LABS: GLUCOSE,RANDOM 319 mg/dL (74-106)
[2018-08-15 10:05] LABS: ACANTHOCYTES 0; ANISOCYTOSIS 0; HELMET CELLS 0; HOWELL-JOLLY BODIES 0; MACROCYTOSIS 0; OVALOCYTE 0; PLATELET ESTIMATE NORMAL; ROULEAU 0; SICKELED CELLS 0; TARGET CELLS 0; TEAR DROP CELLS 0; TOXIC GRANULATION 0
[2018-08-15] MEDS: CALCIUM ACETATE 667 MG CAPSULE (FP) PO SCH ×4 (10:19→16:40)
[2018-08-15] MEDS: BACITRACIN 15 GM TUBE TOPICAL OINTMENT TP SCH (10:20)
[2018-08-15] MEDS: ESCITALOPRAM OXALATE 10 MG TABLET (FP) PO SCH (10:20)
[2018-08-15] MEDS: LABETALOL HCL 200 MG TABLET (FP) PO SCH ×2 (10:21→21:33)
[2018-08-15] MEDS: amLODIPine BESYLATE 10 MG TABLET (FP) PO SCH (10:21)
[2018-08-15] MEDS: predniSONE 20 MG TABLET (UD) PO SCH (10:22)
[2018-08-15] MEDS: BUPRENORPHINE/NALOXONE 2 MG/0.5 MG FILM PACKET SL SCH (10:23)
[2018-08-15] MEDS: COLLAGENASE CLOSTRIDIUM HIST. 30 GRAMS TUBE TP SCH (10:23)
--- NOTE | 2018-08-15 11:25 | PN ---
Progress Note (short form) - Note Progress Note: Renal follow up for ANASTASIA Pt seen and examined at the bedside awake and alert no acute complaints making urine s/p renal biopsy yesterday, no flank pain, hematuria Vital Signs Temperature 98 F 08/15/18 10:00 Pulse Rate 70 08/15/18 10:00 Respiratory Rate 20 08/15/18 10:00 Blood Pressure 132/71 08/15/18 10:00 O2 Sat by Pulse Oximetry (%) 95 08/14/18 21:00 Intake & Output 08/12/18 08/13/18 08/14/18 08/15/18 23:59 23:59 23:59 23:59 Intake Total 950 100 300 0 Output Total 450 Balance 500 100 300 0 NAD awake and alert no LE edema CBC, BMP 08/15/18 06:30 08/15/18 06:30 Current Medications Acetaminophen (Tylenol Oral Solution -) 650 mg PO Q6H PRN PRN Reason: PAIN OR FEVER Last Admin: 08/09/18 23:10 Dose: 650 mg Acetaminophen/Butalbital/Caffeine (Fioricet -) 1 tablet PO Q6H PRN PRN Reason: HEADACHE Last Admin: 08/12/18 17:25 Dose: 1 tablet Amlodipine Besylate (Norvasc -) 10 mg PO DAILY [facility] Last Admin: 08/15/18 10:21 Dose: 10 mg Bacitracin (Bacitracin -) 1 applic TP DAILY [facility] Last Admin: 08/15/18 10:20 Dose: Not Given Buprenorphine/Naloxone (Suboxone 2mg/0.5mg Sl Film -) 1 each SL DAILY [facility] Last Admin: 08/15/18 10:23 Dose: 1 each Calcium Acetate (Phoslo -) 667 mg PO TIDCM [facility] Last Admin: 08/15/18 10:22 Dose: 667 mg Collagenase (Santyl -) 1 applic TP DAILY [facility]; Protocol Last Admin: 08/15/18 10:23 Dose: 1 applic Escitalopram Oxalate (Lexapro -) 5 mg PO DAILY [facility] Last Admin: 08/15/18 10:20 Dose: 5 mg Heparin Sodium (Porcine) (Heparin -) 5,000 unit SQ TID [facility] Last Admin: 08/15/18 06:28 Dose: 5,000 unit Famotidine/Sodium Chloride (Pepcid 20 Mg Premixed Ivpb -) 20 mg in 50 mls @ 100 mls/hr IVPB Q12H PRN PRN Reason: DYSPEPSIA Insulin Aspart (Novolog Vial Sliding Scale -) 1 vial SQ ACHS [facility]; Protocol Last Admin: 08/15/18 06:24 Dose: 8 units Labetalol HCl (Normodyne -) 400 mg PO BID [facility] Last Admin: 08/15/18 10:21 Dose: 400 mg Prednisone (Deltasone -) 60 mg PO DAILY [facility] Last Admin: 08/15/18 10:22 Dose: 60 mg Pregabalin (Lyrica -) 25 mg PO HS [facility] Last Admin: 08/14/18 22:21 Dose: 25 mg Quetiapine Fumarate (Seroquel -) 50 mg PO HS [facility] Last Admin: 08/14/18 22:21 Dose: 50 mg Trimethobenzamide HCl (Tigan Injection -) 200 mg IM Q8H PRN PRN Reason: NAUSEA 48 year old woman with hx of CHF, DVT, DM, Polysubstance abuse, hx of renal failure requiring acute dialysis who presented with abd pain with N/V and foot pain and noted to have ANASTASIA. #ANASTASIA likely due to ATN vs. FSGS/ATN/AIN/RPG related to heroin use #Nausea and Vomiting #Polysubstance abuse #DM #HTN #Lactic acidosis now resolved Cr stable over the last 72 hours, possibly indicating improvement in renal function s/p renal biopsy yesterday, hopefully will have prelimary report by tomorrow can remove dialysis catheter today, no plan for [facility] REPA[employer] today BUN is high but that is also affected by steroids Rheum input appreciated, less likely overt vasculitis and + PR3 anca could be consistent in acute inflammation will continue Prednisone 60mg Daily will defer plasma exchange pending biopsy result continue amlodpine, labetalol Dose all meds for CrCl < 10 Alejandro Pace DO
--- NOTE | 2018-08-15 14:44 | PN ---
Physical Exam: SUBJECTIVE: Patient seen and examined at bedside this morning. No acute events overnight. Patient has no new complaints and reports feeling well. Repeat biopsy done yesterday and patient tolerated procedure well. Dialysis catheter removed today. OBJECTIVE: Vital Signs Period Temp Pulse Resp BP Sys/Puente Pulse Ox Last 24 Hr 97.9 F-98.5 F 69-76 18-20 97-143/52-87 95 GENERAL: The patient is awake, alert, and fully oriented, in no acute distress. HEAD: Normal with no signs of trauma. EYES: PERRLA, EOMI, sclera anicteric, conjunctiva clear. ENT: Ears normal, nares patent, oropharynx clear without exudates, moist mucous membranes. NECK: Trachea midline, full range of motion, supple. LUNGS: Breath sounds equal, clear to auscultation bilaterally, decreased bilateral bases. HEART: Regular rate and rhythm, S1, S2 without murmur, rub or gallop. ABDOMEN: Soft, nontender, nondistended, normoactive bowel sounds, no guarding. EXTREMITIES: 2+ pulses, warm, well-perfused, no edema. +multiple scratch goel and ulcerations on b/l LE; LLE: +wound on left big toe. NEUROLOGICAL: Cranial nerves II through XII grossly intact. Normal speech, gait not observed. PSYCH: Normal mood, normal affect. SKIN: Warm, dry, normal turgor, no rashes or lesions noted Laboratory Results - last 24 hr 08/14/18 08/14/18 08/14/18 13:30 13:33 17:05 WBC RBC Hgb Hct MCV MCH MCHC RDW Plt Count MPV Absolute Neuts (auto) Neutrophils % Neutrophils % (Manual) Band Neutrophils % Lymphocytes % Lymphocytes % (Manual) Monocytes % Monocytes % (Manual) Eosinophils % Eosinophils % (Manual) Basophils % Basophils % (Manual) Myelocytes % (Man) Promyelocytes % (Man) Blast Cells % (Manual) Nucleated RBC % Metamyelocytes Hypochromia Toxic Granulation Dohle Bodies Platelet Estimate Polychromasia Poikilocytosis Basophilic Stippling Anisocytosis Microcytosis Macrocytosis Spherocytes Sickle Cells Target Cells Tear Drop Cells Ovalocytes Stomatocytes Helmet Cells Andrews-Woody Bodies Donna Rings Corey Cells Acanthocytes (Spur) Rouleaux Fragmented RBCs Schistocytes Sodium Potassium Chloride Carbon Dioxide Anion Gap BUN Creatinine Creat Clearance w eGFR POC Glucometer 186 254 Random Glucose Calcium Phosphorus Magnesium Total Bilirubin AST ALT Alkaline Phosphatase Total Protein Albumin Urine WBC (Auto) 18 Urine RBC (Auto) 10 Ur Epithelial Cells Rare Hyaline Casts 2 08/14/18 08/14/18 08/15/18 22:19 23:50 06:23 WBC RBC Hgb Hct MCV MCH MCHC RDW Plt Count MPV Absolute Neuts (auto) Neutrophils % Neutrophils % (Manual) Band Neutrophils % Lymphocytes % Lymphocytes % (Manual) Monocytes % Monocytes % (Manual) Eosinophils % Eosinophils % (Manual) Basophils % Basophils % (Manual) Myelocytes % (Man) Promyelocytes % (Man) Blast Cells % (Manual) Nucleated RBC % Metamyelocytes Hypochromia Toxic Granulation Dohle Bodies Platelet Estimate Polychromasia Poikilocytosis Basophilic Stippling Anisocytosis Microcytosis Macrocytosis Spherocytes Sickle Cells Target Cells Tear Drop Cells Ovalocytes Stomatocytes Helmet Cells Andrews-Woody Bodies Donna Rings [place] Cells Acanthocytes (Spur) Rouleaux Fragmented RBCs Schistocytes Sodium Potassium Chloride Carbon Dioxide Anion Gap BUN Creatinine Creat Clearance w eGFR POC Glucometer 444 497 325 Random Glucose Calcium Phosphorus Magnesium Total Bilirubin AST ALT Alkaline Phosphatase Total Protein Albumin Urine WBC (Auto) Urine RBC (Auto) Ur Epithelial Cells Hyaline Casts 08/15/18 08/15/18 06:30 06:30 WBC 11.5 H RBC 3.60 Hgb 10.8 Hct 32.2 L MCV 89.6 MCH 30.0 MCHC 33.4 RDW 14.6 Plt Count 259 MPV 9.2 Absolute Neuts (auto) 9.1 H Neutrophils % 79.3 Neutrophils % (Manual) 85.0 H Band Neutrophils % 0.0 Lymphocytes % 9.4 D Lymphocytes % (Manual) 6.0 L D Monocytes % 11.0 H D Monocytes % (Manual) 7 Eosinophils % 0.0 Eosinophils % (Manual) 0.0 Basophils % 0.3 Basophils % (Manual) 0.0 Myelocytes % (Man) 2 D Promyelocytes % (Man) 0 Blast Cells % (Manual) 0 Nucleated RBC % 0 Metamyelocytes 0 Hypochromia 0 Toxic Granulation 0 Dohle Bodies 0 Platelet Estimate Normal Polychromasia 0 Poikilocytosis 0 Basophilic Stippling 0 Anisocytosis 0 Microcytosis 0 Macrocytosis 0 Spherocytes 0 Sickle Cells 0 Target Cells 0 Tear Drop Cells 0 Ovalocytes 0 Stomatocytes 0 Helmet Cells 0 Andrews-Woody Bodies 0 Donna Rings 0 Corey Cells 0 Acanthocytes (Spur) 0 Rouleaux 0 Fragmented RBCs 0 Schistocytes 0 Sodium 141 Potassium 3.6 Chloride 101 Carbon Dioxide 26 Anion Gap 14 BUN 101 H Creatinine 6.2 H Creat Clearance w eGFR 7.27 POC Glucometer Random Glucose 319 H* Calcium 8.8 Phosphorus 5.4 H Magnesium 1.8 Total Bilirubin 0.5 AST 16 ALT 34 Alkaline Phosphatase 69 Total Protein 6.7 Albumin 3.7 Urine WBC (Auto) Urine RBC (Auto) Ur Epithelial Cells Hyaline Casts Active Medications Generic Name Dose Route Start Last Admin Trade Name Freq PRN Reason Stop Dose Admin Acetaminophen 650 mg 08/09/18 09:51 08/09/18 23:10 Tylenol Oral Solution - PO 650 mg Q6H PRN Administration PAIN OR FEVER Acetaminophen/Butalbital/Caffeine 1 tablet 08/10/18 11:21 08/12/18 17:25 Fioricet - PO 1 tablet Q6H PRN Administration HEADACHE Amlodipine Besylate 10 mg 08/10/18 10:00 08/15/18 10:21 Norvasc - PO 10 mg DAILY NI Administration Bacitracin 1 applic 08/05/18 13:30 08/15/18 10:20 Bacitracin - TP Not Given DAILY NI Buprenorphine/Naloxone 1 each 08/06/18 18:00 08/15/18 10:23 Suboxone 2mg/0.5mg Sl Film - SL 1 each DAILY NI Administration Calcium Acetate 667 mg 08/08/18 17:30 08/15/18 13:04 Phoslo - PO Not Given TIDCM NI Collagenase 1 applic 08/05/18 21:30 08/15/18 10:23 Santyl - TP 1 applic DAILY NI Administration Protocol Escitalopram Oxalate 5 mg 08/09/18 10:00 08/15/18 10:20 Lexapro - PO 5 mg DAILY NI Administration Heparin Sodium (Porcine) 5,000 unit 08/06/18 22:00 08/15/18 06:28 Heparin - SQ 5,000 unit TID NI Administration Famotidine/Sodium Chloride 20 mg in 50 mls @ 100 mls/hr 08/04/18 23:13 Pepcid 20 Mg Premixed Ivpb - IVPB Q12H PRN DYSPEPSIA Insulin Aspart 1 vial 08/05/18 07:00 08/15/18 13:04 Novolog Vial Sliding Scale - SQ Not Given ACHS [facility] Protocol Labetalol HCl 400 mg 08/07/18 10:00 08/15/18 10:21 Normodyne - PO 400 mg BID NI Administration Prednisone 60 mg 08/14/18 12:30 08/15/18 10:22 Deltasone - PO 60 mg DAILY NI Administration Pregabalin 25 mg 08/09/18 22:00 08/14/18 22:21 Lyrica - PO 25 mg HS NI Administration Quetiapine Fumarate 50 mg 08/13/18 22:00 08/14/18 22:21 Seroquel - PO 50 mg HS NI Administration Trimethobenzamide HCl 200 mg 08/04/18 23:14 Tigan Injection - IM Q8H PRN NAUSEA ASSESSMENT/PLAN: Patient is a 48 year old female with past medical history of polysubstance abuse (on Subaxone), DM, HTN, CHF, DVT (s/p IVC filter, s/p Lovenox, not compliant), recent C.diff infection treated with Vancomycin 125mg PO for 10days , anxiety, depression, presented with diffuse abdominal pain accompanied by nausea and vomiting of 3 days. #Oliguria likely 2/2 Acute kidney injury: unclear etiology -pre-renal from dehydration (unlikely s/p IV hydration with no improvement) vs intrarenal 2/2 polysubstance abuse -Nephrology(Dr. Pace) consulted. Recommendations appreciated. -FeNa 12%, UPCR of 5 - consistent with tubular injury -Renal biopsy done, results did not contain any glomeruli -Repeat biopsy done today -will continue Prednisone 60mg Daily -will defer plasma exchange pending biopsy result -Avoid ACEI/ARBs, NSAIDs, Fleets -Dose all meds for CrCl <10 -Dialysis catheter removed today, no plan for OPTIONS ADVISOR today. -Rheumatology (Dr. Ferguson) consulted. Recommendations appreciated. -Acute renal insufficiency, proteinase-3 positive, c-ANCA negative. Clinical picture started 3 days after heroin use. -Proteinase-3 positive with negative IF C-ANCA usually relates to non- vasculitis inflammatory conditions. -Repeat UA: 1+ JEANNE, 2+Glu, 1+Blood, 18 WBC, 10 RBC #Left great toe wound -MRI without contrast: Focal fluid superficial to the skin surface along the plantar medial aspect of the distal phalanx of the first toe question early due to open wound. Faint bone marrow edema of the mid-distal phalanx, however, this could be due to motion artifact or due to bony reaction to the adjacent infectious process. Early osteomyelitis cannot be entirely excluded. Follow-up MRI recommended. -ID (Dr. Bonner) consulted. Recommendations appreciated. -Will not start patient on any abx -Will need repeat imaging studies after 3 months. -Podiatry (Dr. Ly) consulted. Recommendations appreciated. -Wound culture - no growth -Santyl dressing change daily.Offloading. -Wound care outpatient. -Vascular surgery (Dr. Knox) consulted. Recommendations appreciated. -Wound care with: wash ulcer with 1/2 NS/ 1/2 Peroxide, apply Bacitracin ointment, cover with 4x4 -Glucose control #Diarrhea: resolved -Stool positive for C.diff antigen but negative toxin -ID (Dr. Bonner) consulted. #Opioid dependence -No more episodes of nausea or vomiting -COWS 0 -Discontinue Ativan -Continue home Seroquel 50mg PO Hs -Detox consulted (Dr. Urbano). Recommendations appreciated. -Restart Suboxone 2/0.5 mg SL daily prn. #DVT -Patient non-compliant with medications and follow-ups. -Last seen by Dr. Ruiz in May 2017, and has never followed up in the clinic -As per patient, last took Lovenox 1 month ago due to insurance problems, but upon med rec with pharmacy, has not picked up Lovenox >4 months. -Hematology (Dr. Duque) consulted. Recommendations appreciated. -chronic DVT right distal SFV and popliteal vein. ( unchanged since 11/2017) -In view of provoked DVT and lengthy duration of lovenox, change to DVT prophylaxis with heparin. -Would need anticoagulation. Compliance is the issue -Would start coumadin vs. Eliquis 2.5 mg bid #DM -A1c: 7.5 -Hold home medications -Insulin sliding scale implemented -BGM ACHS #HTN -Will resume home dose of Labetalol 400mg BID -Amlodipine 5 mg increased to 10mg daily. -Hold Lisinopril for now -Will continue to monitor #Anxiety/Depression -Hold Trazodone with prolonged QTc (513) -Will continue to monitor #FEN -Not on any standing fluids. -Electrolytes wnl, routine bmp monitoring -Renal diet #Prophylaxis -Heparin 5000units sq tid #Disposition -full code Visit type - Emergency Visit Emergency Visit: Yes ED Registration Date: 08/06/18 Care time: The patient presented to the Emergency Department on the above date and was hospitalized for further evaluation of their emergent condition. - New Patient This patient is new to me today: No - Critical Care Critical Care patient: No
--- NOTE | 2018-08-15 18:03 | PN ---
Teaching Attending Note Name of Resident: Nita Joseph ATTENDING PHYSICIAN STATEMENT I saw and evaluated the patient. I reviewed the resident's note and discussed the case with the resident. I agree with the resident's findings and plan as documented. SUBJECTIVE: Patient is comfortable with no acute distress. OBJECTIVE: Vital Signs Temperature 98.1 F 08/15/18 18:00 Pulse Rate 70 08/15/18 18:00 Respiratory Rate 18 08/15/18 18:00 Blood Pressure 125/74 08/15/18 18:00 O2 Sat by Pulse Oximetry (%) 95 08/14/18 21:00 GENERAL: The patient is awake, alert, and fully oriented, in no acute distress. HEAD: Normal with no signs of trauma. EYES: PERRLA, EOMI, sclera anicteric, conjunctiva clear. ENT: Ears normal, oropharynx clear without exudates, moist mucous membranes. NECK: Trachea midline, full range of motion, supple. LUNGS: Breath sounds equal, clear to auscultation bilaterally, decreased bilateral bases. HEART: Regular rate and rhythm, S1, S2 without murmur, rub or gallop. ABDOMEN: Soft, nontender, nondistended, normoactive bowel sounds, no guarding. EXTREMITIES: 2+ pulses, warm, well-perfused, no edema. positive for wound on left big toe. NEUROLOGICAL: Cranial nerves II through XII grossly intact. Normal speech, gait not observed. PSYCH: Normal mood, normal affect. SKIN: Warm, dry, normal turgor, no rashes or lesions noted CBCD WBC 11.5 K/mm3 (4.0-10.0) H 08/15/18 06:30 RBC 3.60 M/mm3 (3.60-5.2) 08/15/18 06:30 Hgb 10.8 GM/dL (10.7-15.3) 08/15/18 06:30 Hct 32.2 % (32.4-45.2) L 08/15/18 06:30 MCV 89.6 fl (80-96) 08/15/18 06:30 MCHC 33.4 g/dl (32.0-36.0) 08/15/18 06:30 RDW 14.6 % (11.6-15.6) 08/15/18 06:30 Plt Count 259 K/MM3 (134-434) 08/15/18 06:30 MPV 9.2 fl (7.5-11.1) 08/15/18 06:30 CMP Sodium 141 mmol/L (136-145) 08/15/18 06:30 Potassium 3.6 mmol/L (3.5-5.1) 08/15/18 06:30 Chloride 101 mmol/L (98-107) 08/15/18 06:30 Carbon Dioxide 26 mmol/L (21-32) 08/15/18 06:30 Anion Gap 14 MMOL/L (8-16) 08/15/18 06:30 BUN 101 mg/dL (7-18) H 08/15/18 06:30 Creatinine 6.2 mg/dL (0.55-1.3) H 08/15/18 06:30 Creat Clearance w eGFR 7.27 (>60) 08/15/18 06:30 Random Glucose 319 mg/dL (74-106) H* 08/15/18 06:30 Calcium 8.8 mg/dL (8.5-10.1) 08/15/18 06:30 Total Bilirubin 0.5 mg/dL (0.2-1) 08/15/18 06:30 AST 16 U/L (15-37) 08/15/18 06:30 ALT 34 U/L (13-61) 08/15/18 06:30 Alkaline Phosphatase 69 U/L (45-117) 08/15/18 06:30 Total Protein 6.7 g/dl (6.4-8.2) 08/15/18 06:30 Albumin 3.7 g/dl (3.4-5.0) 08/15/18 06:30 CARDIAC ENZYMES Creatine Kinase 22 IU/L (26-192) L 08/04/18 16:57 Troponin I < 0.02 ng/ml (0.00-0.05) 08/04/18 16:57 Current Medications Generic Name Dose Route Start Last Admin Trade Name Freq PRN Reason Stop Dose Admin Acetaminophen 650 mg 08/09/18 09:51 08/09/18 23:10 Tylenol Oral Solution - PO 650 mg Q6H PRN Administration PAIN OR FEVER Acetaminophen/Butalbital/Caffeine 1 tablet 08/10/18 11:21 08/12/18 17:25 Fioricet - PO 1 tablet Q6H PRN Administration HEADACHE Amlodipine Besylate 10 mg 08/10/18 10:00 08/15/18 10:21 Norvasc - PO 10 mg DAILY NI Administration Bacitracin 1 applic 08/05/18 13:30 08/15/18 10:20 Bacitracin - TP Not Given DAILY NI Buprenorphine/Naloxone 1 each 08/06/18 18:00 08/15/18 10:23 Suboxone 2mg/0.5mg Sl Film - SL 1 each DAILY NI Administration Calcium Acetate 667 mg 08/08/18 17:30 08/15/18 16:40 Phoslo - PO 667 mg TIDCM NI Administration Collagenase 1 applic 08/05/18 21:30 08/15/18 10:23 Santyl - TP 1 applic DAILY NI Administration Protocol Escitalopram Oxalate 5 mg 08/09/18 10:00 08/15/18 10:20 Lexapro - PO 5 mg DAILY NI Administration Heparin Sodium (Porcine) 5,000 unit 08/06/18 22:00 08/15/18 15:44 Heparin - SQ Not Given TID NI Famotidine/Sodium Chloride 20 mg in 50 mls @ 100 mls/hr 08/04/18 23:13 Pepcid 20 Mg Premixed Ivpb - IVPB Q12H PRN DYSPEPSIA Insulin Aspart 1 vial 08/05/18 07:00 08/15/18 16:38 Novolog Vial Sliding Scale - SQ 8 units ACHS NI Administration Protocol Labetalol HCl 400 mg 08/07/18 10:00 08/15/18 10:21 Normodyne - PO 400 mg BID NI Administration Prednisone 60 mg 08/14/18 12:30 08/15/18 10:22 Deltasone - PO 60 mg DAILY NI Administration Pregabalin 25 mg 08/09/18 22:00 08/14/18 22:21 Lyrica - PO 25 mg HS NI Administration Quetiapine Fumarate 50 mg 08/13/18 22:00 08/14/18 22:21 Seroquel - PO 50 mg HS NI Administration Trimethobenzamide HCl 200 mg 08/04/18 23:14 Tigan Injection - IM Q8H PRN NAUSEA Home Medications Medication Instructions Recorded RX: Pregabalin [Lyrica] 100 mg PO TID 10/02/16 RX: Zolpidem Tartrate [Ambien] 10 mg PO HS 01/23/18 RX: traZODone HCL [Desyrel -] 100 mg PO HS 02/13/18 RX: Quetiapine Fumarate [Seroquel 50 mg PO HS #30 tablet 05/17/18 -] RX: Labetalol HCl [Normodyne -] 400 mg PO BID #120 tablet 06/19/18 RX: Lisinopril 20 mg PO DAILY #30 tablet 06/21/18 Sitagliptin Phos/Metformin HCl 1 each PO DAILY #30 tbmp.24hr 06/21/18 [Janumet Xr 50-500 mg Tablet] Buprenorphine/Naloxone [Suboxone 1 combo SL DAILY #7 packet MDD 1 06/26/18 2Mg/0.5MG Sl Film -] Escitalopram Oxalate [Lexapro -] 5 mg PO DAILY 08/06/18 ASSESSMENT AND PLAN: Patient is a 48 y/o female with h/o HTN, DM ,depression ,anxiety, PE/DVT, s/p IVCF, substance abuse ,chronic lower ext ulcers, who presented after heroin use and overdosing on labetalol . she was found to have ANASTASIA. 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 possible vasculitis, repeat Bx pending result ,continue steroids , as per nephro, patient is improving, no HD for now. will monitor. Appreciate Rheumatology consult. # HTN: cont labetalol , and norvasc # RO, resolved . fioricet if needed # Chronic DVT: h/o IVCF, not compliant with her AC. appreciate heme input. exterminator helper Ac to be decided depending on course. ( dr. Duque d/w Dr. Ruiz) # DM: SSI # Depression/anxiety:cont lexapro and seroquel. #Left 1st toe ulcer. repeat MRI in 3 months , cont santyl daily , orthowedge shoes upon dc # Heroin abuse: cont subaxone DVT Px: Heparin
[2018-08-15] MEDS: PREGABALIN 25 MG CAPSULE PO SCH (21:31)
[2018-08-15] MEDS: QUEtiapine FUMARATE 25 MG TABLET (FP) PO SCH (21:32)
[2018-08-16] MEDS: HEPARIN NA (PORCINE) 5,000 UNITS/ML 1ML VIAL SQ SCH ×3 (05:58→21:31)
[2018-08-16] MEDS: INSULIN SLIDING SCALE (NOVOLOG) 1 VIAL SQ SCH ×4 (06:00→21:30)
[2018-08-16 06:58] LABS: HEMATOCRIT 31.3 % (32.4-45.2); HEMOGLOBIN 10.4 GM/dL (10.7-15.3); MCHC 33.3 g/dl (32.0-36.0); MEAN CELL VOLUME 89.9 fl (80-96); MEAN PLT VOLUME 9.4 fl (7.5-11.1); PLATELET COUNT 257 K/MM3 (134-434); RBC 3.48 M/mm3 (3.60-5.2); RDW 14.2 % (11.6-15.6); WHITE BLOOD COUNT 12.5 K/mm3 (4.0-10.0)
[2018-08-16 07:24] LABS: ANION GAP 11 MMOL/L (8-16); BLOOD UREA NITROGEN 97 mg/dL (7-18); CALCIUM 8.1 mg/dL (8.5-10.1); CHLORIDE 102 mmol/L (98-107); CO2 27 mmol/L (21-32); CREATININE 4.2 mg/dL (0.55-1.3); GLUCOSE,RANDOM 180 mg/dL (74-106); MAGNESIUM 1.6 mg/dL (1.8-2.4); PHOSPHOROUS 4.2 mg/dL (2.5-4.9); POTASSIUM 3.1 mmol/L (3.5-5.1); SODIUM 140 mmol/L (136-145)
[2018-08-16] MEDS ORDERED: POTASSIUM CHLORIDE TABS 20 MEQ TABLET.ER (FP) PO ONE (07:32)
[2018-08-16] MEDS ORDERED: MAGNESIUM SULF 50% (8.12 MEQ/2 ML-1 GM VIAL) IVPB ONE (08:00)
[2018-08-16] MEDS: amLODIPine BESYLATE 10 MG TABLET (FP) PO SCH (09:43)
[2018-08-16] MEDS: ESCITALOPRAM OXALATE 10 MG TABLET (FP) PO SCH (09:43)
[2018-08-16] MEDS: BUPRENORPHINE/NALOXONE 2 MG/0.5 MG FILM PACKET SL SCH (09:44)
[2018-08-16] MEDS: LABETALOL HCL 200 MG TABLET (FP) PO SCH ×2 (09:44→21:27)
[2018-08-16] MEDS: predniSONE 20 MG TABLET (UD) PO SCH (09:44)
[2018-08-16] MEDS: CALCIUM ACETATE 667 MG CAPSULE (FP) PO SCH ×3 (09:44→17:21)
[2018-08-16] MEDS: BACITRACIN 15 GM TUBE TOPICAL OINTMENT TP SCH (09:47)
[2018-08-16] MEDS: COLLAGENASE CLOSTRIDIUM HIST. 30 GRAMS TUBE TP SCH (09:47)
--- NOTE | 2018-08-16 11:14 | PN ---
Teaching Attending Note Name of Resident: Nita Joseph ATTENDING PHYSICIAN STATEMENT I saw and evaluated the patient. I reviewed the resident's note and discussed the case with the resident. I agree with the resident's findings and plan as documented. SUBJECTIVE: patient is getting better with no acute distress. OBJECTIVE: Vital Signs Temperature 98.2 F 08/16/18 09:18 Pulse Rate 65 08/16/18 09:18 Respiratory Rate 20 08/16/18 09:18 Blood Pressure 137/68 08/16/18 09:18 O2 Sat by Pulse Oximetry (%) 95 08/15/18 21:00 GENERAL: The patient is awake, alert, and fully oriented, in no acute distress. HEAD: Normal with no signs of trauma. EYES: PERRLA, EOMI, sclera anicteric, conjunctiva clear. ENT: Ears normal, oropharynx clear without exudates, moist mucous membranes. NECK: Trachea midline, full range of motion, supple. LUNGS: Breath sounds equal, decreased bilateral bases. HEART: Regular rate and rhythm, S1, S2 without murmur, rub or gallop. ABDOMEN: Soft, nontender, nondistended, normoactive bowel sounds, no guarding. EXTREMITIES: 2+ pulses, warm, well-perfused, no edema. positive for wound on left big toe. NEUROLOGICAL: Cranial nerves II through XII grossly intact. Normal speech, gait not observed. PSYCH: Normal mood, normal affect. SKIN: Warm, dry, normal turgor, no rashes or lesions noted CBCD WBC 12.5 K/mm3 (4.0-10.0) H 08/16/18 06:00 RBC 3.48 M/mm3 (3.60-5.2) L 08/16/18 06:00 Hgb 10.4 GM/dL (10.7-15.3) L 08/16/18 06:00 Hct 31.3 % (32.4-45.2) L 08/16/18 06:00 MCV 89.9 fl (80-96) 08/16/18 06:00 MCHC 33.3 g/dl (32.0-36.0) 08/16/18 06:00 RDW 14.2 % (11.6-15.6) 08/16/18 06:00 Plt Count 257 K/MM3 (134-434) 08/16/18 06:00 MPV 9.4 fl (7.5-11.1) 08/16/18 06:00 CMP Sodium 140 mmol/L (136-145) 08/16/18 06:00 Potassium 3.1 mmol/L (3.5-5.1) L 08/16/18 06:00 Chloride 102 mmol/L (98-107) 08/16/18 06:00 Carbon Dioxide 27 mmol/L (21-32) 08/16/18 06:00 Anion Gap 11 MMOL/L (8-16) 08/16/18 06:00 BUN 97 mg/dL (7-18) H 08/16/18 06:00 Creatinine 4.2 mg/dL (0.55-1.3) H 08/16/18 06:00 Creat Clearance w eGFR 11.39 (>60) 08/16/18 06:00 Random Glucose 180 mg/dL (74-106) H 08/16/18 06:00 Calcium 8.1 mg/dL (8.5-10.1) L 08/16/18 06:00 Total Bilirubin 0.5 mg/dL (0.2-1) 08/15/18 06:30 AST 16 U/L (15-37) 08/15/18 06:30 ALT 34 U/L (13-61) 08/15/18 06:30 Alkaline Phosphatase 69 U/L (45-117) 08/15/18 06:30 Total Protein 6.7 g/dl (6.4-8.2) 08/15/18 06:30 Albumin 3.7 g/dl (3.4-5.0) 08/15/18 06:30 CARDIAC ENZYMES Creatine Kinase 22 IU/L (26-192) L 08/04/18 16:57 Troponin I < 0.02 ng/ml (0.00-0.05) 08/04/18 16:57 Current Medications Generic Name Dose Route Start Last Admin Trade Name Freq PRN Reason Stop Dose Admin Acetaminophen 650 mg 08/09/18 09:51 08/09/18 23:10 Tylenol Oral Solution - PO 650 mg Q6H PRN Administration PAIN OR FEVER Acetaminophen/Butalbital/Caffeine 1 tablet 08/10/18 11:21 08/12/18 17:25 Fioricet - PO 1 tablet Q6H PRN Administration HEADACHE Amlodipine Besylate 10 mg 08/10/18 10:00 08/16/18 09:43 Norvasc - PO 10 mg DAILY NI Administration Bacitracin 1 applic 08/05/18 13:30 08/16/18 09:47 Bacitracin - TP Not Given DAILY NI Buprenorphine/Naloxone 1 each 08/06/18 18:00 08/16/18 09:44 Suboxone 2mg/0.5mg Sl Film - SL 1 each DAILY NI Administration Calcium Acetate 667 mg 08/08/18 17:30 08/16/18 09:44 Phoslo - PO 667 mg TIDCM NI Administration Collagenase 1 applic 08/05/18 21:30 08/16/18 09:47 Santyl - TP 1 applic DAILY NI Administration Protocol Escitalopram Oxalate 5 mg 08/09/18 10:00 08/16/18 09:43 Lexapro - PO 5 mg DAILY NI Administration Heparin Sodium (Porcine) 5,000 unit 08/06/18 22:00 08/16/18 05:58 Heparin - SQ 5,000 unit TID NI Administration Famotidine/Sodium Chloride 20 mg in 50 mls @ 100 mls/hr 08/04/18 23:13 Pepcid 20 Mg Premixed Ivpb - IVPB Q12H PRN DYSPEPSIA Insulin Aspart 1 vial 08/05/18 07:00 08/16/18 06:00 Novolog Vial Sliding Scale - SQ 2 units ACHS NI Administration Protocol Labetalol HCl 400 mg 08/07/18 10:00 08/16/18 09:44 Normodyne - PO 400 mg BID NI Administration Prednisone 60 mg 08/14/18 12:30 08/16/18 09:44 Deltasone - PO 60 mg DAILY NI Administration Pregabalin 25 mg 08/09/18 22:00 08/15/18 21:31 Lyrica - PO 25 mg HS NI Administration Quetiapine Fumarate 50 mg 08/13/18 22:00 08/15/18 21:32 Seroquel - PO 50 mg HS NI Administration Trimethobenzamide HCl 200 mg 08/04/18 23:14 Tigan Injection - IM Q8H PRN NAUSEA Home Medications Medication Instructions Recorded Pregabalin [Lyrica] 100 mg PO TID 10/02/16 Zolpidem Tartrate [Ambien] 10 mg PO HS 01/23/18 traZODone HCL [Desyrel -] 100 mg PO HS 02/13/18 Quetiapine Fumarate [Seroquel -] 50 mg PO HS #30 tablet 05/17/18 Labetalol HCl [Normodyne -] 400 mg PO BID #120 tablet 06/19/18 Lisinopril 20 mg PO DAILY #30 tablet 06/21/18 Sitagliptin Phos/Metformin HCl 1 each PO DAILY #30 tbmp.24hr 06/21/18 [Janumet Xr 50-500 mg Tablet] Buprenorphine/Naloxone [Suboxone 1 combo SL DAILY #7 packet MDD 1 06/26/18 2Mg/0.5MG Sl Film -] Escitalopram Oxalate [Lexapro -] 5 mg PO DAILY 08/06/18 ASSESSMENT AND PLAN: Patient is a 48 y/o female with h/o HTN, DM ,depression ,anxiety, PE/DVT, s/p IVCF, substance abuse ,chronic lower ext ulcers, who presented after heroin use and overdosing on labetalol . she was found to have ANASTASIA. # ANASTASIA: likely due to ATN as per bx result, continue steroids with taper, as per nephro, patient is improving, no HD for now. will monitor. Appreciate Rheumatology consult. # HTN: cont labetalol , and norvasc # RO, resolved . fioricet if needed # Chronic DVT: h/o IVCF, not compliant with her AC. appreciate heme input. group home Ac to be decided depending on course. ( dr. Duque d/w Dr. Ruiz) # DM: SSI # Depression/anxiety:cont lexapro and seroquel. #Left 1st toe ulcer. repeat MRI in 3 months , cont santyl daily , ortho shoes upon dc # Heroin abuse: cont subaxone DVT Px: Heparin
--- NOTE | 2018-08-16 12:19 | PN ---
Progress Note (short form) - Note Progress Note: Spoke with Dr. Pace Renal biopsy: No vasculitis or interstitial disease. No hematologic intervention. Improvement in kidney function - likely secondary to ATN.
--- NOTE | 2018-08-16 13:55 | PN ---
Progress Note (short form) - Note Progress Note: Renal follow up for ANASTASIA Pt seen and examined at the bedside no acute complaints making urine no sob, cp, abd pain Vital Signs Temperature 98.2 F 08/16/18 09:18 Pulse Rate 65 08/16/18 09:18 Respiratory Rate 20 08/16/18 09:18 Blood Pressure 137/68 08/16/18 09:18 O2 Sat by Pulse Oximetry (%) 98 08/16/18 09:00 Intake & Output 08/13/18 08/14/18 08/15/18 08/16/18 23:59 23:59 23:59 23:59 Intake Total 100 300 100 100 Balance 100 300 100 100 NAD awake and alert no LE edema CBC, BMP 08/16/18 06:00 08/16/18 06:00 Current Medications Acetaminophen (Tylenol Oral Solution -) 650 mg PO Q6H PRN PRN Reason: PAIN OR FEVER Last Admin: 08/09/18 23:10 Dose: 650 mg Acetaminophen/Butalbital/Caffeine (Fioricet -) 1 tablet PO Q6H PRN PRN Reason: HEADACHE Last Admin: 08/12/18 17:25 Dose: 1 tablet Amlodipine Besylate (Norvasc -) 10 mg PO DAILY [facility] Last Admin: 08/16/18 09:43 Dose: 10 mg Bacitracin (Bacitracin -) 1 applic TP DAILY [facility] Last Admin: 08/16/18 09:47 Dose: Not Given Buprenorphine/Naloxone (Suboxone 2mg/0.5mg Sl Film -) 1 each SL DAILY [facility] Last Admin: 08/16/18 09:44 Dose: 1 each Calcium Acetate (Phoslo -) 667 mg PO TIDCM [facility] Last Admin: 08/16/18 09:44 Dose: 667 mg Collagenase (Santyl -) 1 applic TP DAILY [facility]; Protocol Last Admin: 08/16/18 09:47 Dose: 1 applic Escitalopram Oxalate (Lexapro -) 5 mg PO DAILY [facility] Last Admin: 08/16/18 09:43 Dose: 5 mg Heparin Sodium (Porcine) (Heparin -) 5,000 unit SQ TID [facility] Last Admin: 08/16/18 05:58 Dose: 5,000 unit Famotidine/Sodium Chloride (Pepcid 20 Mg Premixed Ivpb -) 20 mg in 50 mls @ 100 mls/hr IVPB Q12H PRN PRN Reason: DYSPEPSIA Insulin Aspart (Novolog Vial Sliding Scale -) 1 vial SQ ACHS [facility]; Protocol Last Admin: 08/16/18 06:00 Dose: 2 units Labetalol HCl (Normodyne -) 400 mg PO BID [facility] Last Admin: 08/16/18 09:44 Dose: 400 mg Prednisone (Deltasone -) 60 mg PO DAILY [facility] Last Admin: 08/16/18 09:44 Dose: 60 mg Pregabalin (Lyrica -) 25 mg PO HS [facility] Last Admin: 08/15/18 21:31 Dose: 25 mg Quetiapine Fumarate (Seroquel -) 50 mg PO HS [facility] Last Admin: 08/15/18 21:32 Dose: 50 mg Trimethobenzamide HCl (Tigan Injection -) 200 mg IM Q8H PRN PRN Reason: NAUSEA 48 year old woman with hx of CHF, DVT, DM, Polysubstance abuse, hx of renal failure requiring acute dialysis who presented with abd pain with N/V and foot pain and noted to have ANASTASIA. #ANASTASIA likely due to ATN vs. FSGS/ATN/AIN/RPG related to heroin use #Nausea and Vomiting #Polysubstance abuse #DM #HTN #Lactic acidosis now resolved Prelimnary biopsy result consistent with ATN (toxic) w/o evidence of acute vasculitis or interstitial nephritis Serum Cr also improved to 4 today no further dialysis needed can taper steroids Continue BP control Trend renal function and electrolytes if improving tomorrow can plan d/c with outpatient monitoring Alejandro Pace DO
--- NOTE | 2018-08-16 13:58 | PN ---
Physical Exam: SUBJECTIVE: Patient seen and examined at bedside this morning. No acute events overnight. Patient has no complaints. OBJECTIVE: Vital Signs Period Temp Pulse Resp BP Sys/Puente Pulse Ox Last 24 Hr 97.8 F-98.2 F 63-74 18-20 125-144/65-82 95-98 GENERAL: The patient is awake, alert, and fully oriented, in no acute distress. HEAD: Normal with no signs of trauma. EYES: PERRLA, EOMI, sclera anicteric, conjunctiva clear. ENT: Ears normal, nares patent, oropharynx clear without exudates, moist mucous membranes. NECK: Trachea midline, full range of motion, supple. LUNGS: Breath sounds equal, clear to auscultation bilaterally, decreased bilateral bases. HEART: Regular rate and rhythm, S1, S2 without murmur, rub or gallop. ABDOMEN: Soft, nontender, nondistended, normoactive bowel sounds, no guarding. EXTREMITIES: 2+ pulses, warm, well-perfused, no edema. +multiple scratch goel and ulcerations on b/l LE; LLE: +wound on left big toe. NEUROLOGICAL: Cranial nerves II through XII grossly intact. Normal speech, gait not observed. PSYCH: Normal mood, normal affect. SKIN: Warm, dry, normal turgor, no rashes or lesions noted Laboratory Results - last 24 hr 08/14/18 08/15/18 08/15/18 13:30 16:35 21:37 WBC RBC Hgb Hct MCV MCH MCHC RDW Plt Count MPV Sodium Potassium Chloride Carbon Dioxide Anion Gap BUN Creatinine Creat Clearance w eGFR POC Glucometer 333 274 Random Glucose Calcium Phosphorus Magnesium Urine Eosinophils None seen 08/16/18 08/16/18 08/16/18 05:39 06:00 06:00 WBC 12.5 H RBC 3.48 L Hgb 10.4 L Hct 31.3 L MCV 89.9 MCH 30.0 MCHC 33.3 RDW 14.2 Plt Count 257 MPV 9.4 Sodium 140 Potassium 3.1 L Chloride 102 Carbon Dioxide 27 Anion Gap 11 BUN 97 H Creatinine 4.2 H Creat Clearance w eGFR 11.39 POC Glucometer 198 Random Glucose 180 H Calcium 8.1 L Phosphorus 4.2 Magnesium 1.6 L Urine Eosinophils 08/16/18 11:55 WBC RBC Hgb Hct MCV MCH MCHC RDW Plt Count MPV Sodium Potassium Chloride Carbon Dioxide Anion Gap BUN Creatinine Creat Clearance w eGFR POC Glucometer 166 Random Glucose Calcium Phosphorus Magnesium Urine Eosinophils Active Medications Generic Name Dose Route Start Last Admin Trade Name Shavon PRN Reason Stop Dose Admin Acetaminophen 650 mg 08/09/18 09:51 08/09/18 23:10 Tylenol Oral Solution - PO 650 mg Q6H PRN Administration PAIN OR FEVER Acetaminophen/Butalbital/Caffeine 1 tablet 08/10/18 11:21 08/12/18 17:25 Fioricet - PO 1 tablet Q6H PRN Administration HEADACHE Amlodipine Besylate 10 mg 08/10/18 10:00 08/16/18 09:43 Norvasc - PO 10 mg DAILY [facility] Administration Bacitracin 1 applic 08/05/18 13:30 08/16/18 09:47 Bacitracin - TP Not Given DAILY [facility] Buprenorphine/Naloxone 1 each 08/06/18 18:00 08/16/18 09:44 Suboxone 2mg/0.5mg Sl Film - SL 1 each DAILY [facility] Administration Calcium Acetate 667 mg 08/08/18 17:30 08/16/18 09:44 Phoslo - PO 667 mg TIDCM NI Administration Collagenase 1 applic 08/05/18 21:30 08/16/18 09:47 Santyl - TP 1 applic DAILY [facility] Administration Protocol Escitalopram Oxalate 5 mg 08/09/18 10:00 08/16/18 09:43 Lexapro - PO 5 mg DAILY [facility] Administration Heparin Sodium (Porcine) 5,000 unit 08/06/18 22:00 08/16/18 05:58 Heparin - SQ 5,000 unit TID [facility] Administration Famotidine/Sodium Chloride 20 mg in 50 mls @ 100 mls/hr 08/04/18 23:13 Pepcid 20 Mg Premixed Ivpb - IVPB Q12H PRN DYSPEPSIA Insulin Aspart 1 vial 08/05/18 07:00 08/16/18 06:00 Novolog Vial Sliding Scale - SQ 2 units ACHS [facility] Administration Protocol Labetalol HCl 400 mg 08/07/18 10:00 08/16/18 09:44 Normodyne - PO 400 mg BID [facility] Administration Prednisone 40 mg 08/17/18 10:00 Deltasone - PO DAILY [facility] Pregabalin 25 mg 08/09/18 22:00 08/15/18 21:31 Lyrica - PO 25 mg HS [facility] Administration Quetiapine Fumarate 50 mg 08/13/18 22:00 08/15/18 21:32 Seroquel - PO 50 mg HS NI Administration Trimethobenzamide HCl 200 mg 08/04/18 23:14 Tigan Injection - IM Q8H PRN NAUSEA ASSESSMENT/PLAN: Patient is a 48 year old female with past medical history of polysubstance abuse (on Subaxone), DM, HTN, CHF, DVT (s/p IVC filter, s/p Lovenox, not compliant), recent C.diff infection treated with Vancomycin 125mg PO for 10days , anxiety, depression, presented with diffuse abdominal pain accompanied by nausea and vomiting of 3 days. #Oliguria likely 2/2 Acute kidney injury: unclear etiology -pre-renal from dehydration (unlikely s/p IV hydration with no improvement) vs intrarenal 2/2 polysubstance abuse -Nephrology(Dr. Pace) consulted. Recommendations appreciated. -Preliminary biopsy consistent with ATN (toxic) without evidence of acute vasculitis or interstitial nephritis -Cr improved today. No further dialysis needed. -Taper Prednisone to 40mg Daily -Continue BP control. Trend renal function and electrolytes. -Can plan for discharge tomorrow with outpatient monitoring. -Rheumatology (Dr. Ferguson) consulted. Recommendations appreciated. -Acute renal insufficiency, proteinase-3 positive, c-ANCA negative. Clinical picture started 3 days after heroin use. -Proteinase-3 positive with negative IF C-ANCA usually relates to non- vasculitis inflammatory conditions. -Repeat UA: 1+ JEANNE, 2+Glu, 1+Blood, 18 WBC, 10 RBC #Left great toe wound -MRI without contrast: Focal fluid superficial to the skin surface along the plantar medial aspect of the distal phalanx of the first toe question early due to open wound. Faint bone marrow edema of the mid-distal phalanx, however, this could be due to motion artifact or due to bony reaction to the adjacent infectious process. Early osteomyelitis cannot be entirely excluded. Follow-up MRI recommended. -ID (Dr. Bonner) consulted. Recommendations appreciated. -Will not start patient on any abx -Will need repeat imaging studies after 3 months. -Podiatry (Dr. Ly) consulted. Recommendations appreciated. -Wound culture - no growth -Santyl dressing change daily.Offloading. -Wound care outpatient. -Vascular surgery (Dr. Knox) consulted. Recommendations appreciated. -Wound care with: wash ulcer with 1/2 NS/ 1/2 Peroxide, apply Bacitracin ointment, cover with 4x4 -Glucose control #Diarrhea: resolved -Stool positive for C.diff antigen but negative toxin -ID (Dr. Bonner) consulted. #Opioid dependence -No more episodes of nausea or vomiting -COWS 0 -Discontinue Ativan -Continue home Seroquel 50mg PO Hs -Detox consulted (Dr. Urbano). Recommendations appreciated. -Restart Suboxone 2/0.5 mg SL daily prn. #DVT -Patient non-compliant with medications and follow-ups. -Last seen by Dr. Ruiz in May 2017, and has never followed up in the clinic -As per patient, last took Lovenox 1 month ago due to insurance problems, but upon med rec with pharmacy, has not picked up Lovenox >4 months. -Hematology (Dr. Duque) consulted. Recommendations appreciated. -chronic DVT right distal SFV and popliteal vein. ( unchanged since 11/2017) -In view of provoked DVT and lengthy duration of lovenox, change to DVT prophylaxis with heparin. -Would need anticoagulation. Compliance is the issue -Would start coumadin vs. Eliquis 2.5 mg bid #DM -A1c: 7.5 -Hold home medications -Insulin sliding scale implemented -BGM ACHS #HTN -Will resume home dose of Labetalol 400mg BID -Amlodipine 5 mg increased to 10mg daily. -Hold Lisinopril for now -Will continue to monitor #Anxiety/Depression -Hold Trazodone with prolonged QTc (513) -Will continue to monitor #FEN -Not on any standing fluids. -Electrolytes wnl, routine bmp monitoring -Renal diet #Prophylaxis -Heparin 5000units sq tid #Disposition -full code Visit type - Emergency Visit Emergency Visit: Yes ED Registration Date: 08/06/18 Care time: The patient presented to the Emergency Department on the above date and was hospitalized for further evaluation of their emergent condition. - New Patient This patient is new to me today: No - Critical Care Critical Care patient: No
[2018-08-16] MEDS ORDERED: INSULIN (NOVOLOG) ASPART 100 UNITS/ML 10ML VIAL ONE ×2 (14:12→17:42)
[2018-08-16] MEDS ORDERED: INSULIN (LEVEMIR) 100 UNITS/ML UNITS SQ ONE (17:43)
[2018-08-16] MEDS: PREGABALIN 25 MG CAPSULE PO SCH (21:27)
[2018-08-16] MEDS: QUEtiapine FUMARATE 25 MG TABLET (FP) PO SCH (21:27)
[2018-08-17] MEDS: HEPARIN NA (PORCINE) 5,000 UNITS/ML 1ML VIAL SQ SCH ×3 (05:24→21:30)
[2018-08-17] MEDS: INSULIN SLIDING SCALE (NOVOLOG) 1 VIAL SQ SCH ×4 (06:15→21:59)
[2018-08-17] MEDS: CALCIUM ACETATE 667 MG CAPSULE (FP) PO SCH ×3 (08:05→17:25)
[2018-08-17] MEDS ORDERED: PT OWN MED DRAWER 7, Y5N ONE (09:06)
[2018-08-17] MEDS: LABETALOL HCL 200 MG TABLET (FP) PO SCH ×2 (09:30→21:30)
[2018-08-17] MEDS: predniSONE 20 MG TABLET (UD) PO SCH (09:30)
[2018-08-17] MEDS: ESCITALOPRAM OXALATE 10 MG TABLET (FP) PO SCH (09:30)
[2018-08-17] MEDS: BUPRENORPHINE/NALOXONE 2 MG/0.5 MG FILM PACKET SL SCH (09:31)
[2018-08-17] MEDS: amLODIPine BESYLATE 10 MG TABLET (FP) PO SCH (09:31)
[2018-08-17 10:05] LABS: ANION GAP 12 MMOL/L (8-16); BLOOD UREA NITROGEN 88 mg/dL (7-18); CALCIUM 8.4 mg/dL (8.5-10.1); CHLORIDE 106 mmol/L (98-107); CO2 26 mmol/L (21-32); CREATININE 2.9 mg/dL (0.55-1.3); GLUCOSE,RANDOM 105 mg/dL (74-106); MAGNESIUM 1.5 mg/dL (1.8-2.4); POTASSIUM 3.2 mmol/L (3.5-5.1); SODIUM 144 mmol/L (136-145)
--- NOTE | 2018-08-17 11:06 | PN ---
Progress Note, Physician Chief Complaint: The patient examined in her room. Family visiting. Denies any more loose Bm. No abd pain. No chest pains. No fever. Maintains good urine output. History of Present Illness: 48 year old woman with hx of CHF, DVT, DM, Polysubstance abuse, with history of renal failure requiring Acute dialysis who presented with abdominal pain with nausea, vomiting. The patient has been Dx with C. diff colitis. - Current Medication List Current Medications: Active Medications Acetaminophen (Tylenol Oral Solution -) 650 mg PO Q6H PRN PRN Reason: PAIN OR FEVER Last Admin: 08/09/18 23:10 Dose: 650 mg Amlodipine Besylate (Norvasc -) 10 mg PO DAILY [facility] Last Admin: 08/17/18 09:31 Dose: 10 mg Bacitracin (Bacitracin -) 1 applic TP DAILY [facility] Last Admin: 08/16/18 09:47 Dose: Not Given Buprenorphine/Naloxone (Suboxone 2mg/0.5mg Sl Film -) 1 each SL DAILY [facility] Last Admin: 08/17/18 09:31 Dose: 1 each Calcium Acetate (Phoslo -) 667 mg PO TIDCM [facility] Last Admin: 08/17/18 08:05 Dose: 667 mg Collagenase (Santyl -) 1 applic TP DAILY [facility]; Protocol Last Admin: 08/16/18 09:47 Dose: 1 applic Escitalopram Oxalate (Lexapro -) 5 mg PO DAILY [facility] Last Admin: 08/17/18 09:30 Dose: 5 mg Heparin Sodium (Porcine) (Heparin -) 5,000 unit SQ TID [facility] Last Admin: 08/17/18 05:24 Dose: 5,000 unit Famotidine/Sodium Chloride (Pepcid 20 Mg Premixed Ivpb -) 20 mg in 50 mls @ 100 mls/hr IVPB Q12H PRN PRN Reason: DYSPEPSIA Insulin Aspart (Novolog Vial Sliding Scale -) 1 vial SQ ACHS [facility]; Protocol Last Admin: 08/17/18 06:15 Dose: Not Given Labetalol HCl (Normodyne -) 400 mg PO BID [facility] Last Admin: 08/17/18 09:30 Dose: 400 mg Prednisone (Deltasone -) 40 mg PO DAILY [facility] Last Admin: 08/17/18 09:30 Dose: 40 mg Pregabalin (Lyrica -) 25 mg PO HS [facility] Last Admin: 08/16/18 21:27 Dose: 25 mg Quetiapine Fumarate (Seroquel -) 50 mg PO [facility] Last Admin: 08/16/18 21:27 Dose: 50 mg Trimethobenzamide HCl (Tigan Injection -) 200 mg IM Q8H PRN PRN Reason: NAUSEA - Objective Vital Signs: Vital Signs Temperature 99.2 F 08/17/18 09:20 Pulse Rate 52 L 08/17/18 09:20 Respiratory Rate 16 08/17/18 09:20 Blood Pressure 140/75 08/17/18 09:20 O2 Sat by Pulse Oximetry (%) 96 08/17/18 09:00 Constitutional: Yes: No Distress, Calm HENT: Yes: Atraumatic, Normocephalic Neck: Yes: Trachea Midline Cardiovascular: Yes: Regular Rate and Rhythm, S1, S2 Respiratory: Yes: CTA Bilaterally Gastrointestinal: Yes: Normal Bowel Sounds, Abdomen, Obese Musculoskeletal: Yes: Back Pain Edema: No Labs: CBC, BMP 08/16/18 06:00 08/17/18 07:15 INR, PTT INR 1.05 (0.83-1.09) 08/04/18 16:57 Assessment/Plan 48 year old woman with hx of CHF, DVT, DM, Polysubstance abuse, hx of renal failure requiring acute dialysis who presented with abd pain with N/V and foot pain and noted to have ANASTASIA. The patient had ANASTASIA, with resolving azotemia. S/p HD. Off Hd. Continue the current regimen. Will monitor the renal functions with you. Crystal Machado MD
--- NOTE | 2018-08-17 12:26 | PN ---
Progress Note (short form) - Note Progress Note: Patient is comfortable with no acute distress, patient would like to go home. Vital Signs Temperature 99.2 F 08/17/18 09:20 Pulse Rate 52 L 08/17/18 09:20 Respiratory Rate 16 08/17/18 09:20 Blood Pressure 140/75 08/17/18 09:20 O2 Sat by Pulse Oximetry (%) 96 08/17/18 09:00 GENERAL: The patient is awake, alert, and fully oriented, in no acute distress. HEAD: Normal with no signs of trauma. EYES: PERRLA, EOMI, sclera anicteric, conjunctiva clear. ENT: Ears normal, oropharynx clear without exudates, moist mucous membranes. NECK: Trachea midline, full range of motion, supple. LUNGS: Breath sounds equal, decreased bilateral bases. HEART: Regular rate and rhythm, S1, S2 without murmur, rub or gallop. ABDOMEN: Soft, nontender, nondistended, normoactive bowel sounds, no guarding. EXTREMITIES: 2+ pulses, warm, well-perfused, no edema. positive for wound on left big toe. NEUROLOGICAL: Cranial nerves II through XII grossly intact. Normal speech, gait not observed. PSYCH: Normal mood, normal affect. SKIN: Warm, dry, normal turgor, no rashes or lesions noted CBCD WBC 12.5 K/mm3 (4.0-10.0) H 08/16/18 06:00 RBC 3.48 M/mm3 (3.60-5.2) L 08/16/18 06:00 Hgb 10.4 GM/dL (10.7-15.3) L 08/16/18 06:00 Hct 31.3 % (32.4-45.2) L 08/16/18 06:00 MCV 89.9 fl (80-96) 08/16/18 06:00 MCHC 33.3 g/dl (32.0-36.0) 08/16/18 06:00 RDW 14.2 % (11.6-15.6) 08/16/18 06:00 Plt Count 257 K/MM3 (134-434) 08/16/18 06:00 MPV 9.4 fl (7.5-11.1) 08/16/18 06:00 CMP Sodium 144 mmol/L (136-145) 08/17/18 07:15 Potassium 3.2 mmol/L (3.5-5.1) L 08/17/18 07:15 Chloride 106 mmol/L (98-107) 08/17/18 07:15 Carbon Dioxide 26 mmol/L (21-32) 08/17/18 07:15 Anion Gap 12 MMOL/L (8-16) 08/17/18 07:15 BUN 88 mg/dL (7-18) H 08/17/18 07:15 Creatinine 2.9 mg/dL (0.55-1.3) H 08/17/18 07:15 Creat Clearance w eGFR 17.47 (>60) 08/17/18 07:15 Random Glucose 105 mg/dL (74-106) 08/17/18 07:15 Calcium 8.4 mg/dL (8.5-10.1) L 08/17/18 07:15 Total Bilirubin 0.5 mg/dL (0.2-1) 08/15/18 06:30 AST 16 U/L (15-37) 08/15/18 06:30 ALT 34 U/L (13-61) 08/15/18 06:30 Alkaline Phosphatase 69 U/L (45-117) 08/15/18 06:30 Total Protein 6.7 g/dl (6.4-8.2) 08/15/18 06:30 Albumin 3.7 g/dl (3.4-5.0) 08/15/18 06:30 CARDIAC ENZYMES Creatine Kinase 22 IU/L (26-192) L 08/04/18 16:57 Troponin I < 0.02 ng/ml (0.00-0.05) 08/04/18 16:57 Current Medications Generic Name Dose Route Start Last Admin Trade Name Freq PRN Reason Stop Dose Admin Acetaminophen 650 mg 08/09/18 09:51 08/09/18 23:10 Tylenol Oral Solution - PO 650 mg Q6H PRN Administration PAIN OR FEVER Amlodipine Besylate 10 mg 08/10/18 10:00 08/17/18 09:31 Norvasc - PO 10 mg DAILY NI Administration Bacitracin 1 applic 08/05/18 13:30 08/16/18 09:47 Bacitracin - TP Not Given DAILY NI Buprenorphine/Naloxone 1 each 08/06/18 18:00 08/17/18 09:31 Suboxone 2mg/0.5mg Sl Film - SL 1 each DAILY NI Administration Calcium Acetate 667 mg 08/08/18 17:30 08/17/18 08:05 Phoslo - PO 667 mg TIDCM NI Administration Collagenase 1 applic 08/05/18 21:30 08/16/18 09:47 Santyl - TP 1 applic DAILY [facility] Administration Protocol Escitalopram Oxalate 5 mg 08/09/18 10:00 08/17/18 09:30 Lexapro - PO 5 mg DAILY [facility] Administration Heparin Sodium (Porcine) 5,000 unit 08/06/18 22:00 08/17/18 05:24 Heparin - SQ 5,000 unit TID NI Administration Famotidine/Sodium Chloride 20 mg in 50 mls @ 100 mls/hr 08/04/18 23:13 Pepcid 20 Mg Premixed Ivpb - IVPB Q12H PRN DYSPEPSIA Insulin Aspart 1 vial 08/05/18 07:00 08/17/18 06:15 Novolog Vial Sliding Scale - SQ Not Given ACHS [facility] Protocol Labetalol HCl 400 mg 08/07/18 10:00 08/17/18 09:30 Normodyne - PO 400 mg BID NI Administration Prednisone 40 mg 08/17/18 10:00 08/17/18 09:30 Deltasone - PO 40 mg DAILY NI Administration Pregabalin 25 mg 08/09/18 22:00 08/16/18 21:27 Lyrica - PO 25 mg HS NI Administration Quetiapine Fumarate 50 mg 08/13/18 22:00 08/16/18 21:27 Seroquel - PO 50 mg HS NI Administration Trimethobenzamide HCl 200 mg 08/04/18 23:14 Tigan Injection - IM Q8H PRN NAUSEA Home Medications Medication Instructions Recorded Pregabalin [Lyrica] 100 mg PO TID 10/02/16 Zolpidem Tartrate [Ambien] 10 mg PO HS 01/23/18 traZODone HCL [Desyrel -] 100 mg PO HS 02/13/18 Quetiapine Fumarate [Seroquel -] 50 mg PO HS #30 tablet 05/17/18 Labetalol HCl [Normodyne -] 400 mg PO BID #120 tablet 06/19/18 Lisinopril 20 mg PO DAILY #30 tablet 06/21/18 Sitagliptin Phos/Metformin HCl 1 each PO DAILY #30 tbmp.24hr 06/21/18 [Janumet Xr 50-500 mg Tablet] Buprenorphine/Naloxone [Suboxone 1 combo SL DAILY #7 packet MDD 1 06/26/18 2Mg/0.5MG Sl Film -] Escitalopram Oxalate [Lexapro -] 5 mg PO DAILY 08/06/18 A/P: Patient is a 48 y/o female with h/o HTN, DM ,depression ,anxiety, PE/DVT, s/p IVCF, substance abuse ,chronic lower ext ulcers, who presented after heroin use and overdosing on labetalol . she was found to have ANASTASIA. # ANASTASIA: likely due to ATN as per bx result, continue steroids with taper, as per nephro, patient is improving, no HD for now. will monitor. Appreciate Rheumatology consult. creatinine is trending down will, monitor. # HTN: cont labetalol , and norvasc # RO, resolved . fioricet if needed # Chronic DVT: h/o IVCF, not compliant with her AC. appreciate heme input. manager lsw Ac to be decided depending on course. ( dr. Duque d/w Dr. Ruiz) # DM: SSI # Depression/anxiety:cont lexapro and seroquel. #Left 1st toe ulcer. repeat MRI in 3 months , cont santyl daily , ortho shoes upon dc # Heroin abuse: cont subaxone DVT Px: Heparin Visit type - Emergency Visit Emergency Visit: Yes ED Registration Date: 08/06/18 Care time: The patient presented to the Emergency Department on the above date and was hospitalized for further evaluation of their emergent condition. - New Patient This patient is new to me today: No - Critical Care Critical Care patient: No - Discharge Referral Referred to [facility] No
[2018-08-17] MEDS: COLLAGENASE CLOSTRIDIUM HIST. 30 GRAMS TUBE TP SCH (14:05)
[2018-08-17] MEDS: BACITRACIN 15 GM TUBE TOPICAL OINTMENT TP SCH (14:05)
--- NOTE | 2018-08-17 17:07 | PN ---
Progress Note, Physician History of Present Illness: Pt seen and examined. States she feels well, denies having any complaints. Tmax 99.2, currently afebrile and without distress. - Current Medication List Current Medications: Active Medications Acetaminophen (Tylenol Oral Solution -) 650 mg PO Q6H PRN PRN Reason: PAIN OR FEVER Last Admin: 08/09/18 23:10 Dose: 650 mg Amlodipine Besylate (Norvasc -) 10 mg PO DAILY [facility] Last Admin: 08/17/18 09:31 Dose: 10 mg Bacitracin (Bacitracin -) 1 applic TP DAILY [facility] Last Admin: 08/17/18 14:05 Dose: Not Given Buprenorphine/Naloxone (Suboxone 2mg/0.5mg Sl Film -) 1 each SL DAILY [facility] Last Admin: 08/17/18 09:31 Dose: 1 each Calcium Acetate (Phoslo -) 667 mg PO TIDCM [facility] Last Admin: 08/17/18 14:03 Dose: 667 mg Collagenase (Santyl -) 1 applic TP DAILY [facility]; Protocol Last Admin: 08/17/18 14:05 Dose: 1 applic Escitalopram Oxalate (Lexapro -) 5 mg PO DAILY [facility] Last Admin: 08/17/18 09:30 Dose: 5 mg Heparin Sodium (Porcine) (Heparin -) 5,000 unit SQ TID [facility] Last Admin: 08/17/18 14:04 Dose: 5,000 unit Famotidine/Sodium Chloride (Pepcid 20 Mg Premixed Ivpb -) 20 mg in 50 mls @ 100 mls/hr IVPB Q12H PRN PRN Reason: DYSPEPSIA Insulin Aspart (Novolog Vial Sliding Scale -) 1 vial SQ ACHS [facility]; Protocol Last Admin: 08/17/18 14:04 Dose: 4 units Labetalol HCl (Normodyne -) 400 mg PO BID [facility] Last Admin: 08/17/18 09:30 Dose: 400 mg Prednisone (Deltasone -) 40 mg PO DAILY [facility] Last Admin: 08/17/18 09:30 Dose: 40 mg Pregabalin (Lyrica -) 25 mg PO HS [facility] Last Admin: 08/16/18 21:27 Dose: 25 mg Quetiapine Fumarate (Seroquel -) 50 mg PO HS [facility] Last Admin: 08/16/18 21:27 Dose: 50 mg Trimethobenzamide HCl (Tigan Injection -) 200 mg IM Q8H PRN PRN Reason: NAUSEA - Objective Vital Signs: Vital Signs Temperature 98.4 F 08/17/18 15:19 Pulse Rate 57 L 08/17/18 15:19 Respiratory Rate 18 08/17/18 15:19 Blood Pressure 118/70 08/17/18 15:19 O2 Sat by Pulse Oximetry (%) 96 08/17/18 09:00 Constitutional: Yes: No Distress, Calm Cardiovascular: Yes: Regular Rate and Rhythm Respiratory: Yes: Regular Gastrointestinal: Yes: Normal Bowel Sounds, Soft Genitourinary: Yes: WNL Wound/Incision: Yes: Other (Lt toe dry, no erythema/warmth/tenderness, no drainage) Neurological: Yes: Alert Labs: CBC, BMP 08/16/18 06:00 08/17/18 07:15 INR, PTT INR 1.05 (0.83-1.09) 08/04/18 16:57 Problem List - Problems (1) ANASTASIA (acute kidney injury) Code(s): N17.9 - ACUTE KIDNEY FAILURE, UNSPECIFIED (2) Polysubstance (excluding opioids) dependence Code(s): F19.20 - OTHER PSYCHOACTIVE SUBSTANCE DEPENDENCE, UNCOMPLICATED (3) Anxiety and depression Code(s): F41.8 - OTHER SPECIFIED ANXIETY DISORDERS (4) Hypertension Code(s): I10 - ESSENTIAL (PRIMARY) HYPERTENSION Qualifiers: Hypertension type: essential hypertension Qualified Code(s): I10 - Essential (primary) hypertension (5) Morbid obesity Code(s): E66.01 - MORBID (SEVERE) OBESITY DUE TO EXCESS CALORIES (6) Leukocytosis Code(s): D72.829 - ELEVATED WHITE BLOOD CELL COUNT, UNSPECIFIED Qualifiers: Leukocytosis type: other Qualified Code(s): D72.828 - Other elevated white blood cell count Assessment/Plan Chronic Lt toe ulcer Leukocytosis - on prednisone ANASTASIA - improving, renal biopsy results noted Substance abuse Chronic DVT -- stable off antibiotics, continue monitor temp (minimally elevated today, currently afebrile) -- CDT neg, no diarrhea, previously treated for UTI -- repeat MRI foot as outpatient, f/u with Podiatry
[2018-08-17] MEDS ORDERED: MAGNESIUM SULF 50% (8.12 MEQ/2 ML-1 GM VIAL) IVPB ONE (18:50)
[2018-08-17] MEDS: PREGABALIN 25 MG CAPSULE PO SCH (21:30)
[2018-08-17] MEDS: QUEtiapine FUMARATE 25 MG TABLET (FP) PO SCH (21:30)
[2018-08-18] MEDS: HEPARIN NA (PORCINE) 5,000 UNITS/ML 1ML VIAL SQ SCH ×2 (06:35→13:23)
[2018-08-18] MEDS: INSULIN SLIDING SCALE (NOVOLOG) 1 VIAL SQ SCH ×2 (06:36→11:54)
[2018-08-18 07:27] LABS: ALBUMIN 3.7 g/dl (3.4-5.0); ALK PHOS 54 U/L (45-117); ANION GAP 8 MMOL/L (8-16); BILIRUBIN,TOTAL 0.4 mg/dL (0.2-1); BLOOD UREA NITROGEN 70 mg/dL (7-18); CALCIUM 8.5 mg/dL (8.5-10.1); CHLORIDE 107 mmol/L (98-107); CO2 29 mmol/L (21-32); CREATININE 2.3 mg/dL (0.55-1.3); GLUCOSE,RANDOM 98 mg/dL (74-106); POTASSIUM 3.1 mmol/L (3.5-5.1); SGOT/AST 4 U/L (15-37); SGPT/ALT 33 U/L (13-61); SODIUM 144 mmol/L (136-145); TOT PROT 6.9 g/dl (6.4-8.2)
[2018-08-18] MEDS ORDERED: POTASSIUM CHLORIDE TABS 20 MEQ TABLET.ER (FP) PO ONE ×2 (08:00→12:00)
[2018-08-18] MEDS: CALCIUM ACETATE 667 MG CAPSULE (FP) PO SCH ×2 (08:25→11:55)
[2018-08-18] MEDS: ESCITALOPRAM OXALATE 10 MG TABLET (FP) PO SCH (09:29)
[2018-08-18] MEDS: BUPRENORPHINE/NALOXONE 2 MG/0.5 MG FILM PACKET SL SCH (09:29)
[2018-08-18] MEDS: LABETALOL HCL 200 MG TABLET (FP) PO SCH (09:29)
[2018-08-18] MEDS: predniSONE 20 MG TABLET (UD) PO SCH (09:29)
[2018-08-18] MEDS: amLODIPine BESYLATE 10 MG TABLET (FP) PO SCH (09:30)
[2018-08-18] MEDS ORDERED: MAGNESIUM SULF 50% (8.12 MEQ/2 ML-1 GM VIAL) IVPB ONE (11:15)
--- NOTE | 2018-08-18 11:16 | PN ---
Progress Note, Physician Chief Complaint: The patient examined in her room. Reports feeling better. Wants to go home. Denies any more loose Bm. No abd pain. No chest pains. No fever. Maintains good urine output. History of Present Illness: 48 year old woman with hx of CHF, DVT, DM, Polysubstance abuse, with history of renal failure requiring Acute dialysis who presented with abdominal pain with nausea, vomiting. The patient has been Dx with C. diff colitis. Resolved. - Current Medication List Current Medications: Active Medications Acetaminophen (Tylenol Oral Solution -) 650 mg PO Q6H PRN PRN Reason: PAIN OR FEVER Last Admin: 08/09/18 23:10 Dose: 650 mg Amlodipine Besylate (Norvasc -) 10 mg PO DAILY [facility] Last Admin: 08/18/18 09:30 Dose: 10 mg Bacitracin (Bacitracin -) 1 applic TP DAILY [facility] Last Admin: 08/17/18 14:05 Dose: Not Given Buprenorphine/Naloxone (Suboxone 2mg/0.5mg Sl Film -) 1 each SL DAILY [facility] Last Admin: 08/18/18 09:29 Dose: 1 each Calcium Acetate (Phoslo -) 667 mg PO TIDCM [facility] Last Admin: 08/18/18 08:25 Dose: 667 mg Collagenase (Santyl -) 1 applic TP DAILY [facility]; Protocol Last Admin: 08/17/18 14:05 Dose: 1 applic Escitalopram Oxalate (Lexapro -) 5 mg PO DAILY [facility] Last Admin: 08/18/18 09:29 Dose: 5 mg Heparin Sodium (Porcine) (Heparin -) 5,000 unit SQ TID [facility] Last Admin: 08/18/18 06:35 Dose: 5,000 unit Famotidine/Sodium Chloride (Pepcid 20 Mg Premixed Ivpb -) 20 mg in 50 mls @ 100 mls/hr IVPB Q12H PRN PRN Reason: DYSPEPSIA Insulin Aspart (Novolog Vial Sliding Scale -) 1 vial SQ ACHS [facility]; Protocol Last Admin: 08/18/18 06:36 Dose: Not Given Labetalol HCl (Normodyne -) 400 mg PO BID [facility] Last Admin: 08/18/18 09:29 Dose: 400 mg Magnesium Sulfate (Magnesium Sulfate) 1 gm IVPB ONCE ONE Stop: 08/18/18 11:16 Prednisone (Deltasone -) 40 mg PO DAILY [facility] Last Admin: 08/18/18 09:29 Dose: 40 mg Pregabalin (Lyrica -) 25 mg PO [facility] Last Admin: 08/17/18 21:30 Dose: 25 mg Quetiapine Fumarate (Seroquel -) 50 mg PO HS [facility] Last Admin: 08/17/18 21:30 Dose: 50 mg Trimethobenzamide HCl (Tigan Injection -) 200 mg IM Q8H PRN PRN Reason: NAUSEA - Objective Vital Signs: Vital Signs Temperature 98.4 F 08/18/18 09:39 Pulse Rate 59 L 08/18/18 09:39 Respiratory Rate 18 08/18/18 09:39 Blood Pressure 147/97 08/18/18 09:39 O2 Sat by Pulse Oximetry (%) 96 08/17/18 21:00 Constitutional: Yes: Well Nourished, Anxious Eyes: Yes: Conjunctiva Clear HENT: Yes: Atraumatic, Normocephalic Neck: Yes: Trachea Midline Cardiovascular: Yes: Regular Rate and Rhythm, S1, S2 Respiratory: Yes: CTA Bilaterally, Diminished Gastrointestinal: Yes: Normal Bowel Sounds, Soft, Abdomen, Obese. No: Tenderness, Tenderness, Epigastrium Genitourinary: No: Bladder Distention, CVA Tenderness - Left, CVA Tenderness - Right Labs: CBC, BMP 08/16/18 06:00 08/18/18 05:20 INR, PTT INR 1.05 (0.83-1.09) 08/04/18 16:57 Assessment/Plan 48 year old woman with hx of CHF, DVT, DM, Polysubstance abuse, hx of renal failure requiring acute dialysis who presented with abd pain with N/V and foot pain and noted to have ANASTASIA. The patient had ANASTASIA, with resolving azotemia. Serum Cr 2.3. Continues to improve. Hypomagnesemia.. The patient received Mag supplements. Hypokalemia...Probably loss of K from Hypomagnesemia and ? prior stool loss. ? Met alkalosis, will cellular K shift. SUGG: Magnesium and Potassium supplements. OK to d/c home to be followed as outpatient. If Eliquis is to be used, may use it adjusted to her level of renal functions. Discussed with the Guard Manager Crystal Machado MD
[2018-08-18] MEDS: COLLAGENASE CLOSTRIDIUM HIST. 30 GRAMS TUBE TP SCH (11:56)
[2018-08-18] MEDS: BACITRACIN 15 GM TUBE TOPICAL OINTMENT TP SCH (11:56)
[2018-08-18 14:20] LABS: BASO % 0.2 % (0-2.0); EOS % 1.1 % (0-4.5); HEMATOCRIT 37.2 % (32.4-45.2); HEMOGLOBIN 12.3 GM/dL (10.7-15.3); LYMPH % 7.6 % (8-40); MCH 29.8 pg (25.7-33.7); MCHC 33.1 g/dl (32.0-36.0); MEAN PLT VOLUME 8.9 fl (7.5-11.1); MONO % 2.5 % (3.8-10.2); NEUT % 88.6 % (42.8-82.8); PLATELET COUNT 323 K/MM3 (134-434); RBC 4.13 M/mm3 (3.60-5.2); RDW 14.3 % (11.6-15.6); WHITE BLOOD COUNT 15.6 K/mm3 (4.0-10.0)
[2018-08-18 14:35] VITALS: BP 122/67; PULSE 65; TEMP 98.1
--- NOTE | 2018-08-18 17:03 | DS ---
Physical Exam: SUBJECTIVE: Patient seen and examined at bedside this morning. No acute events overnight. Patient has no complaints and wants to go home. OBJECTIVE: Vital Signs Temperature 98.1 F 08/18/18 14:34 Pulse Rate 65 08/18/18 14:34 Respiratory Rate 18 08/18/18 14:34 Blood Pressure 122/67 08/18/18 14:34 O2 Sat by Pulse Oximetry (%) 96 08/18/18 09:00 PHYSICAL EXAM GENERAL: The patient is awake, alert, and fully oriented, in no acute distress. HEAD: Normal with no signs of trauma. EYES: PERRLA, EOMI, sclera anicteric, conjunctiva clear. ENT: Ears normal, nares patent, oropharynx clear without exudates, moist mucous membranes. NECK: Trachea midline, full range of motion, supple. LUNGS: Breath sounds equal, clear to auscultation bilaterally, decreased bilateral bases. HEART: Regular rate and rhythm, S1, S2 without murmur, rub or gallop. ABDOMEN: Soft, nontender, nondistended, normoactive bowel sounds, no guarding. EXTREMITIES: 2+ pulses, warm, well-perfused, no edema. +multiple scratch goel and ulcerations on b/l LE; LLE: +wound on left big toe. NEUROLOGICAL: Cranial nerves II through XII grossly intact. Normal speech, gait not observed. PSYCH: Normal mood, normal affect. SKIN: Warm, dry, normal turgor, no rashes or lesions noted LABS Laboratory Results - last 24 hr 08/17/18 08/17/18 08/18/18 17:24 21:28 05:20 WBC RBC Hgb Hct MCV MCH MCHC RDW Plt Count MPV Absolute Neuts (auto) Neutrophils % Lymphocytes % Monocytes % Eosinophils % Basophils % Nucleated RBC % Sodium 144 Potassium 3.1 L Chloride 107 Carbon Dioxide 29 Anion Gap 8 BUN 70 H Creatinine 2.3 H Creat Clearance w eGFR 22.83 POC Glucometer 285 275 Random Glucose 98 Calcium 8.5 Total Bilirubin 0.4 AST 4 L ALT 33 Alkaline Phosphatase 54 Total Protein 6.9 Albumin 3.7 08/18/18 08/18/18 06:34 13:55 WBC 15.6 H RBC 4.13 Hgb 12.3 Hct 37.2 D MCV 90.0 MCH 29.8 MCHC 33.1 RDW 14.3 Plt Count 323 D MPV 8.9 Absolute Neuts (auto) 13.9 H Neutrophils % 88.6 H Lymphocytes % 7.6 L Monocytes % 2.5 L Eosinophils % 1.1 D Basophils % 0.2 Nucleated RBC % 0 Sodium Potassium Chloride Carbon Dioxide Anion Gap BUN Creatinine Creat Clearance w eGFR POC Glucometer 100 Random Glucose Calcium Total Bilirubin AST ALT Alkaline Phosphatase Total Protein Albumin -CT abdomen/pelvis (08/04): Limited study with no evidence of acute pathology within the abdomen or pelvis. -Renal Ultrasound (08/05): No hydronephrosis is identified. In comparison to a prior exam in 11/01/16, apparent interval development of increased left renal cortical echogenicity is noted suggestive of medical nephropathy. The left kidney otherwise appear unremarkable. The right kidney demonstrates no discrete abnormality. -MRI without contrast (08/07): Focal fluid superficial to the skin surface along the plantar medial aspect of the distal phalanx of the first toe question early due to open wound. Faint bone marrow edema of the mid-distal phalanx, however, this could be due to motion artifact or due to bony reaction to the adjacent infectious process. Early osteomyelitis cannot be entirely excluded. Follow-up MRI recommended. -Head CT (08/10): No acute bleed or mass or fracture. No CT evidence of acute infarct. HOSPITAL COURSE: Date of Admission:08/06/18 Date of Discharge: 08/18/18 Patient is a 48 year old female with past medical history of polysubstance abuse (on Subaxone), DM, HTN, CHF, DVT (s/p IVC filter, s/p Lovenox, not compliant), recent C.diff infection treated with Vancomycin 125mg PO for 10days , anxiety, depression, presented with diffuse abdominal pain accompanied by nausea and vomiting. CT of abdomen was done which did not reveal any acute pathology. Stool culture and stool C.diff were done which revealed C.diff antigen but negative toxin. ID consulted. No antibiotics indicated. Detox was also consulted and patient was started on Suboxone daily. Patient was also noted to have worsening acute kidney injury, not resolved by IV fluids and BP control. PR3 Ab positive. Nephrology and Rheumatology consulted. Patient received few session of dialysis which improved her kidney function. Kidney biopsy was done consistent with ATN, without evidence of acute vasculitis or intersititial nephritis. Patient was also seen by ID and Podiatry for her left great toe wound. Wound care with santyl dress and offloading recommended. No antibiotics indicated. For patient's history of DVT, on lovenox (non-compliant), patient was evaluated by hematology. In light of her acute kidney injury, patient was started on renal dose of Eliquis 2.5mg BID. Patient was discharged with instructions to follow-up with her PCP, Nephrology and podiatry. Minutes to complete discharge: 43 Discharge Summary Reason For Visit: ABDOMINAL PAIN Condition: Stable - Instructions Diet, Activity, Other Instructions: Your visit You were admitted to the hospital because you nausea, vomiting and diarrhea. You likely had a stomach infection that has resolved. You were also noted to have abnormal kidney function. You were seen by the sketch artist and recommended a few sessions of dialysis which you received while you were here in the hospital. Biopsy was done. Please follow-up with the sketch artist to discuss the results and further management. For the blood clot in your leg, you were seen by the supervisor elementary education. You were started on Eliquis 2.5mg twice a day. Care -Please drink at least 3L of water per day. -Keep the wound at your left toe clean and dry at all times. Medications Please take the following medications as prescribed: 1. Labetalol 400mg twice a day. 2. Amlodipine 10mg daily. 3. Eliquis 2.5mg twice a day. 4. Januvia 100mg daily. 5. Start steroid taper: Take Prednisone 30mg daily for 2 days (07/19-07/20) Then Prednisone 20mg daily for 2 days (07/21-07/22) Then Prednisone 10mg daily for 2 days (07/23-07/24) Follow-ups -Please follow-up with the sketch artist (Dr. Pace) within 1-2 weeks. Call the office to schedule an appointment. -Follow-up with the supervisor elementary education (Dr. Duque) within 2 weeks. -Follow-up with your primary care doctor within 1 week. -Follow-up at the wound care clinic with Dr. Ly within 1 week. Additional info Call 911 or go to the ED if with any worsening fever, chills, headache, dizziness, chest pain, shortness of breath, abdominal pain, diarrhea, urinary symptoms, or any new concerns noted. Referrals: Hang Ferguson MD [Staff Physician] - Dunia Hickey MD [Staff Physician] - 2 Weeks Herbert Knox MD [Staff Physician] - Alejandro Pace MD [Staff Physician] - 1 Week Ofelia Ly DPM [Staff Physician] - 2 Weeks Disposition: HOME - Home Medications Comprehensive Discharge Medication List: Ambulatory Orders Pregabalin [Lyrica] 100 mg PO TID 10/02/16 traZODone HCL [Desyrel -] 100 mg PO HS 02/13/18 Quetiapine Fumarate [Seroquel -] 50 mg PO HS #30 tablet 05/17/18 Escitalopram Oxalate [Lexapro -] 5 mg PO DAILY 08/06/18 Amlodipine Besylate 10 mg PO DAILY #30 tablet 08/18/18 Apixaban [Eliquis] 2.5 mg PO BID #60 tablet 08/18/18 Bacitracin - [Bacitracin Topical Ointment -] 1 applic TP DAILY #1 tube 08/18/18 Labetalol HCl [Normodyne -] 400 mg PO BID #120 tablet 08/18/18 Prednisone See Taper PO DAILY #12 tablet 08/18/18 Sitagliptin Phosphate [Januvia] 100 mg PO DAILY #30 tablet 08/18/18 This patient is new to me today: No Emergency Visit: Yes ED Registration Date: 08/06/18 Care time: The patient presented to the Emergency Department on the above date and was hospitalized for further evaluation of their emergent condition. Critical Care patient: No - Discharge Referral Referred to [facility] Med P.C.: No
[2018-08-18 18:34] LABS: ANISOCYTOSIS 0; MACROCYTOSIS 0; OVALOCYTE 1+; PLATELET ESTIMATE NORMAL
--- NOTE | 2018-08-18 18:47 | PN ---
Teaching Attending Note Name of Resident: Nita Joseph ATTENDING PHYSICIAN STATEMENT I saw and evaluated the patient. I reviewed the resident's note and discussed the case with the resident. I agree with the resident's findings and plan as documented. SUBJECTIVE: Patient is comfortable with no acute distress. feels better, wants to go home. OBJECTIVE: Vital Signs Temperature 98.1 F 08/18/18 14:34 Pulse Rate 65 08/18/18 14:34 Respiratory Rate 18 08/18/18 14:34 Blood Pressure 122/67 08/18/18 14:34 O2 Sat by Pulse Oximetry (%) 96 08/18/18 09:00 GENERAL: The patient is awake, alert, and fully oriented, in no acute distress. HEAD: Normal with no signs of trauma. EYES: PERRLA, EOMI, sclera anicteric, conjunctiva clear. ENT: Ears normal, oropharynx clear without exudates, moist mucous membranes. NECK: Trachea midline, full range of motion, supple. LUNGS: Breath sounds equal, decreased bilateral bases. HEART: Regular rate and rhythm, S1, S2 without murmur, rub or gallop. ABDOMEN: Soft, nontender, nondistended, normoactive bowel sounds, no guarding. EXTREMITIES: 2+ pulses, warm, well-perfused, no edema. positive for wound on left big toe. NEUROLOGICAL: Cranial nerves II through XII grossly intact. Normal speech, gait not observed. PSYCH: Normal mood, normal affect. SKIN: Warm, dry, normal turgor, no rashes or lesions noted CBCD WBC 15.6 K/mm3 (4.0-10.0) H 08/18/18 13:55 RBC 4.13 M/mm3 (3.60-5.2) 08/18/18 13:55 Hgb 12.3 GM/dL (10.7-15.3) 08/18/18 13:55 Hct 37.2 % (32.4-45.2) D 08/18/18 13:55 MCV 90.0 fl (80-96) 08/18/18 13:55 MCHC 33.1 g/dl (32.0-36.0) 08/18/18 13:55 RDW 14.3 % (11.6-15.6) 08/18/18 13:55 Plt Count 323 K/MM3 (134-434) D 08/18/18 13:55 MPV 8.9 fl (7.5-11.1) 08/18/18 13:55 CMP Sodium 144 mmol/L (136-145) 08/18/18 05:20 Potassium 3.1 mmol/L (3.5-5.1) L 08/18/18 05:20 Chloride 107 mmol/L (98-107) 08/18/18 05:20 Carbon Dioxide 29 mmol/L (21-32) 08/18/18 05:20 Anion Gap 8 MMOL/L (8-16) 08/18/18 05:20 BUN 70 mg/dL (7-18) H 08/18/18 05:20 Creatinine 2.3 mg/dL (0.55-1.3) H 08/18/18 05:20 Creat Clearance w eGFR 22.83 (>60) 08/18/18 05:20 Random Glucose 98 mg/dL (74-106) 08/18/18 05:20 Calcium 8.5 mg/dL (8.5-10.1) 08/18/18 05:20 Total Bilirubin 0.4 mg/dL (0.2-1) 08/18/18 05:20 AST 4 U/L (15-37) L 08/18/18 05:20 ALT 33 U/L (13-61) 08/18/18 05:20 Alkaline Phosphatase 54 U/L (45-117) 08/18/18 05:20 Total Protein 6.9 g/dl (6.4-8.2) 08/18/18 05:20 Albumin 3.7 g/dl (3.4-5.0) 08/18/18 05:20 CARDIAC ENZYMES Creatine Kinase 22 IU/L (26-192) L 08/04/18 16:57 Troponin I < 0.02 ng/ml (0.00-0.05) 08/04/18 16:57 Home Medications Medication Instructions Recorded Pregabalin [Lyrica] 100 mg PO TID 10/02/16 traZODone HCL [Desyrel -] 100 mg PO HS 02/13/18 Quetiapine Fumarate [Seroquel -] 50 mg PO HS #30 tablet 05/17/18 Escitalopram Oxalate [Lexapro -] 5 mg PO DAILY 08/06/18 Amlodipine Besylate 10 mg PO DAILY #30 tablet 08/18/18 Apixaban [Eliquis] 2.5 mg PO BID #60 tablet 08/18/18 Bacitracin - [Bacitracin Topical 1 applic TP DAILY #1 tube 08/18/18 Ointment -] Labetalol HCl [Normodyne -] 400 mg PO BID #120 tablet 08/18/18 Prednisone See Taper PO DAILY #12 tablet 08/18/18 Sitagliptin Phosphate [Januvia] 100 mg PO DAILY #30 tablet 08/18/18 ASSESSMENT AND PLAN: Patient is a 48 y/o female with h/o HTN, DM ,depression ,anxiety, PE/DVT, s/p IVCF, substance abuse ,chronic lower ext ulcers, who presented after heroin use and overdosing on labetalol . she was found to have ANASTASIA. # ANASTASIA: likely due to ATN as per bx result, will discharge the patient on 6 day steroid taper, as per nephro, follow up with nephro in a week period. Appreciate Rheumatology consult. creatinine is trending down will, is 2.3 today , was suggested to drink plenty of water. # HTN: cont labetalol , and norvasc # RO, resolved . fioricet if needed # Chronic DVT: h/o IVCF, not compliant with her AC. appreciate heme input. 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 follow with ( dr. Duque d/w Dr. Ruiz) # DM: SSI # Depression/anxiety:cont lexapro and seroquel. #Left 1st toe ulcer. repeat MRI in 3 months , cont santyl daily , ortho shoes upon dc # Heroin abuse: cont subaxone discharge patient home.
--- NOTE | 2018-08-22 10:04 | PATH ---
Surgical Pathology Report Patient Name: MARYCRUZ JOAQUIN Med. Rec. #: [id number] /Age/Gender: 1970 (Age: 48) / F Account: [id number] Location: [facility] MED/SURG Taken: 08/08/2018 Received: 08/08/2018 Reported: 08/28/2018 Physicians: Tiffany Martini M.D. Specimen(s) Received RENAL BIOPSY Clinical History ANASTASIA, DVT, ATN vs RPG Intraoperative Consult Diagnosis Renal biopsy: Rare glomeruli present. Dr. Ashutosh M.D., 08/08/2018 Final Diagnosis RENAL, BIOPSY: MEDULLA ONLY, TISSUE INADEQUATE FOR DIAGNOSIS. Case sent for consultation to Dr. Harrison Mccoy from [place], [place] ([id number]), the diagnosis above reflects his opinion. See complete report ([id number]) from [place], [place] for additional details. Electronically Signed Brielle Kerr M.D. Amendments Amended: 08/26/2018 Previous Signout Date: 08/22/2018 Comment: Correct date of procedure from 08/14/18 to 08/08/18. Results and Intraoperative Pathologist corrected. See report [id number]. Microscopic Description Sections are stained with H&E, PAS, trichrome, and JMS. Sections show 1 core of renal medulla. No glomeruli are seen. Mild patchy interstitial edema and a few interstitial mononuclear inflammatory cells are noted. No clear cut tubulitis or interstitial eosinophils are seen. An artery shows mild intimal fibrosis and no evidence of arteritis. An H&E stained section of the tissue submitted in Buck fixative for immunofluorescence studies also shows renal medulla only with no glomeruli. Therefore, immunofluorescence stains are not performed. One 1 mm block of tissue is received in the glutaraldehyde for electromicroscopy. One micron thick survey sections stained with toluidine blue reveal renal medulla only. No renal cortex and no glomeruli are present for evaluation. Therefore, electron microscopy is not performed. Gross Description Received in saline labeled "right renal biopsy," is a 1.1 cm in length x 0.1 cm in diameter falk, cylindrical portion of soft tissue. The specimen is divided, placed in 10% buffered formalin, Buck fixative and glutaraldehyde. The specimen is sent to [facility] [place] for further studies. 08/14/2018
--- NOTE | 2018-08-28 14:20 | PATH ---
Surgical Pathology Report Patient Name: MARYCRUZ JOAQUIN Med. Rec. #: [id number] /Age/Gender: 1970 (Age: 48) / F Account: [id number] Location: [facility] MED/SURG Taken: 08/14/2018 Received: 08/14/2018 Reported: 08/28/2018 Physicians: Tiffany Martini M.D. Anthony Darmiento, M.D. Specimen(s) Received RENAL BIOPSY Clinical History ANASTASIA, DVT, ATN vs RPG Intraoperative Consult Diagnosis Right renal biopsy: Glomeruli present. Nik Baldwin M.D., 08/14/2018 Final Diagnosis RENAL, BIOPSY: PROXIMAL TUBULAR DEGENERATIVE CHANGES, PATCHY. TUBULAR ATROPHY, INTERSTITIAL FIBROSIS AND INTERSTITIAL INFLAMMATION, MINIMAL. ARTERIO- AND ARTERIOLOSCLEROSIS, MILD. SEE COMMENT. Comment: Immunofluorescence microscopy shows no evidence of renal disease of the immune complex type. Although interpretation is limited by the presence of medulla only in the tissue submitted in formalin, and by freezing artifact in the tissue submitted for immunofluorescence studies, no clear-cut acute/active inflammatory injury is seen. The findings are compatible with acute tubular injury (e.g., due to drugs/toxins or ischemia) and appear potentially reversible. Electron Microscopy results show glomerular capillary lumina are patent and glomerular basement membranes appear mostly normal in thickness, contour and texture. Minimal mesangial sclerosis is noted (1+). No immune type electron dense deposits or endothelial cellular tubuloreticular inclusions are seen. Podocytes show focal detachment. Where attached there is focal foot process effacement (10%). Proximal tubules show apical blebbing. Interstitial edema and a few interstitial mononuclear inflammatory cells are noted (1+). An arteriole shows medial hyperplasia. Case sent for consultation to Dr. Harrison Mccoy from [place], [place] ([id number]), the diagnosis above reflects his opinion. See complete report ([id number]) from [place], [place] for additional details. See [id number]. Electronically Signed Brielle Kerr M.D. Microscopic Description Sections are stained with H&E, PAS, trichrome, and JMS. Sections show 1 core of renal medulla. No glomeruli are seen. The renal medulla shows no pathologic alteration. An H&E stained section of the tissue submitted in Buck fixative for immunofluorescence studies also shows 1 core of renal cortex containing 7 glomeruli, none of which show segmental or global sclerosis. Glomeruli appear normal in seize and cellularity. No crescents of fibrinoid necrosis are seen. A few proximal tubules show cytoplasmic attenuation and luminal dilatation. Granular PAS positive casts are noted. There is minimal tubular atrophy and interstitial fibrosis, affecting less than 10% of the cortical area, accompanied by a mild patchy mononuclear inflammatory cell infiltrate. Arteries show mild intimal fibrosis and arterioles show mild hyalinosis. Gross Description Received in saline labeled "right renal biopsy," is a 1.3 cm in length x 0.1 cm in diameter falk, cylindrical portion of soft tissue. The specimen is divided, placed in 10% buffered formalin, Buck fixative and glutaraldehyde. The specimen is sent to [facility] for further studies. 08/14/2018 [facility]08/08/2018
== END 2018-08-18 16:15 | disposition home or self-care (01) | DRG 812 ==
LOC: JER 15:34 → JERBED 21:46 → J7W 08-05 18:26 → OBSVTOIN 08-06 10:18
PROVIDERS: ADMIT Internal Medicine; ATTEND Internal Medicine
PROC: 0TB04ZX Excision of Right Kidney, Percutaneous Endoscopic Approach, Diagnostic (ICD-10-PCS; principal; 2018-08-08)
PROC: 05HM33Z Insertion of Infusion Device into Right Internal Jugular Vein, Percutaneous Approach (ICD-10-PCS; 2018-08-09)
DX: T44.8X1A Poisoning by centrally-acting and adrenergic-neuron-blocking agents, accidental (unintentional), initial encounter (principal); Z68.42 Body mass index [BMI] 45.0-49.9, adult; F11.23 Opioid dependence with withdrawal; G43.A0 Cyclical vomiting, in migraine, not intractable; K52.9 Noninfective gastroenteritis and colitis, unspecified; E86.0 Dehydration; E86.1 Hypovolemia; F41.8 Other specified anxiety disorders; K21.9 Gastro-esophageal reflux disease without esophagitis; E78.5 Hyperlipidemia, unspecified; F17.210 Nicotine dependence, cigarettes, uncomplicated; E11.621 Type 2 diabetes mellitus with foot ulcer; E66.01 Morbid (severe) obesity due to excess calories; I82.531 Chronic embolism and thrombosis of right popliteal vein; I82.511 Chronic embolism and thrombosis of right femoral vein; E87.2 Acidosis; R34 Anuria and oliguria; I13.0 Hypertensive heart and chronic kidney disease with heart failure and stage 1 through stage 4 chronic kidney disease, or unspecified chronic kidney disease; D68.59 Other primary thrombophilia; N17.0 Acute kidney failure with tubular necrosis; E83.42 Hypomagnesemia; R19.7 Diarrhea, unspecified; R51 Headache; D72.829 Elevated white blood cell count, unspecified; E87.6 Hypokalemia
CPT/HCPCS: 36415; 50200; 70450-TC; 71045-TC-FY; 73630-TC-LT; 73718-LT; 74176-TC; 76098-TC-FY; 76775-TC; 76942-TC; 80048; 80053; 80074; 80307; 81003; 81015; 82272; 82550; 82553; 82570; 82962; 83036; 83516; 83520; 83605; 83735; 84100; 84156; 84300; 84484; 84540; 84703; 85025; 85027; 85610; 85651; 85730; 86038; 86140; 86256; 86850; 86900; 86901; 87040; 87045; 87046; 87070; 87186; 87205; 87324; 87389; 87449; 87804; 87899; 88300-TC; 93005; 93010; 93970-TC; 99285-25; G0378; J0131; J1644; J2597; J7030

== ENCOUNTER 2018-08-27 19:15 | Observation (INO) | payer OTHER ==
[2018-08-27 19:35] VITALS: BMI 43.2
--- NOTE | 2018-08-27 19:36 | PDOC ---
Attending Attestation - HPI HPI: 08/27/18 19:53 The patient is a 48 year old female, with a significant past medical history of HTN (intermittent compliance due to insurance complications), kidney stones requiring lithotripsy (6 years ago, Dr. Hernandez and Dr. Brown), polysubstance abuse, diabetes, CHF, and DVT's (s/p IVC filter on AC), who presents to the emergency department with,1 day of nausea, vomiting, diffuse abdominal pain with associated chills and shortness of breath/ She denies recent headache or dizziness. She denies recent diarrhea or constipation. She denies recent dysuria, frequency, urgency or hematuria. She denies recent chest pain or palpitations. Allergies: ondansetron Primary Care Physician - Dr. Kahn - Physicial Exam PE: 08/27/18 19:53 Agree with resident exam. <Santos Funes - Last Filed: 08/27/18 19:53> - Resident Resident Name: Drew Dunn - ED Attending Attestation I have performed the following: I have examined & evaluated the patient, The case was reviewed & discussed with the resident, I agree w/resident's findings & plan - Medical Decision Making 08/28/18 00:34 48-year-old female with complaints of abdominal pain as well as shortness of breath CT scans of the chest abdomen and pelvis showed no significant acute abnormality though the patient's chest x-ray shows persistent cephalization and increased interstitium particularly in the perihilar regions Her BNP is elevated Lasix 40 mg IV push given as well as Ativan 1 mg IV as patient stated she felt extremely anxious She will be admitted to medical service for further evaluation <Lisa Cross - Last Filed: 08/28/18 00:36> Attestations - Attestations 08/27/18 19:54 Documentation prepared by Santos Funes, acting as medical support assistant for Lisa Cross DO. <Santos Funes - Last Filed: 08/27/18 19:53>
[2018-08-27] MEDS ORDERED: SODIUM CHLORIDE 0.9% 1000 ML INFUS.BAG IV ONE (19:44)
[2018-08-27] MEDS ORDERED: METOCLOPRAMIDE HCL INJECTION 10 MG/2 ML VIAL IVPB ONE (19:44)
[2018-08-27] MEDS ORDERED: FAMOTIDINE 20 MG/50 ML IVPB 20 MG/50 ML MG IVPB ONE ×2 (19:44→19:45)
[2018-08-27] MEDS ORDERED: METOCLOPRAMIDE HCL INJECTION 10 MG/2 ML VIAL ONE (19:45)
--- NOTE | 2018-08-27 20:14 | PDOC ---
History of Present Illness - General Chief Complaint: Blood Pressure Problem Stated Complaint: HYPERTENTION/ABDOMINAL PAIN Time Seen by Provider: 08/27/18 19:26 History Source: Patient Exam Limitations: No Limitations - History of Present Illness Initial Comments: 08/27/18 20:08 The patient is a 48F with a PMH of HTN, DM, depression, anxiety, PE/DVT, s/p IVCF, substance abuse, chronic lower ext ulcers who presents to the ER with 1 day of nausea, vomiting, abdominal pain, and chills. The patient states she has diffuse abdominal pain that is constant but she cannot it further. She denies dysuria, hematuria, and flank pain. She states that she took her BP medications today and vomited "hours" after. She denies CP but admits to mild SOB. She denies fever, CP. Past History - Past Medical History Allergies/Adverse Reactions: Allergies Allergy/AdvReac Type Severity Reaction Status Date / Time ondansetron [From Zofran] AdvReac Severe Verified 08/27/18 19:35 Home Medications: Ambulatory Orders Pregabalin [Lyrica] 100 mg PO TID 10/02/16 traZODone HCL [Desyrel -] 100 mg PO HS 02/13/18 Quetiapine Fumarate [Seroquel -] 50 mg PO HS #30 tablet 05/17/18 Escitalopram Oxalate [Lexapro -] 5 mg PO DAILY 08/06/18 Amlodipine Besylate 10 mg PO DAILY #30 tablet 08/18/18 Apixaban [Eliquis] 2.5 mg PO BID #60 tablet 08/18/18 Bacitracin - [Bacitracin Topical Ointment -] 1 applic TP DAILY #1 tube 08/18/18 Labetalol HCl [Normodyne -] 400 mg PO BID #120 tablet 08/18/18 Prednisone See Taper PO DAILY #12 tablet 08/18/18 Sitagliptin Phosphate [Januvia] 100 mg PO DAILY #30 tablet 08/18/18 Anemia: No Asthma: No Cancer: No Cardiac Disorders: No CVA: No COPD: No CHF: No DVT: Yes Dementia: No Diabetes: Yes (type 2) Dialysis: No ([facility] 2015.) GI Disorders: Yes (diarrhea) Disorders: Yes (bladder prolapse 2011) HTN: Yes Hypercholesterolemia: No Kidney Stones: Yes Liver Disease: No Psychiatric Problems: Yes (anxiety depression) Seizures: No Thyroid Disease: No - Surgical History Abdominal Surgery: Yes Appendectomy: No Cardiac Surgery: No Cholecystectomy: Yes (2003) Lung Surgery: No Neurologic Surgery: No Orthopedic Surgery: No - Immunization History Td Vaccination: Yes Immunization Up to Date: Yes - Suicide/Smoking/Psychosocial Hx Smoking Status: No Smoking History: Never smoked Have you smoked in the past 12 months: No Number of Cigarettes Smoked Daily: 5 Cigars Per Day: 0 Information on smoking cessation initiated: No 'Breaking Loose' booklet given: 03/02/17 Hx Alcohol Use: No Drug/Substance Use Hx: No Substance Use Type: Cocaine, Marijuana, Opiates Hx Substance Use Treatment: Yes (suboxone maintenance 16mg daily /New Focus) Review of Systems - Review of Systems Able to Perform ROS?: Yes Comments:: 08/27/18 21:39 GENERAL/CONSTITUTIONAL: Positive for chills. No fever. No weakness. HEAD, EYES, EARS, NOSE AND THROAT: No change in vision. No ear pain or discharge. No sore throat. CARDIOVASCULAR: No chest pain, palpitations, or lightheadedness. RESPIRATORY: Positive for SOB. No cough, wheezing, or hemoptysis. GASTROINTESTINAL: Positive for nausea, vomiting, and abdominal pain. No diarrhea or constipation. GENITOURINARY: No dysuria, frequency, hematuria, or change in urination. MUSCULOSKELETAL: No joint or muscle swelling or pain. No neck or back pain. SKIN: No rash or lesions. NEUROLOGIC: No headache, numbness, tingling, focal weakness, loss of consciousness, or change in strength/sensation. Is the patient limited [place]ian proficient: No *Physical Exam - Vital Signs Last Vital Signs Temp Pulse Resp BP Pulse Ox 99.2 F 101 H 18 183/127 H 100 08/27/18 19:32 08/27/18 19:32 08/27/18 19:32 08/27/18 19:32 08/27/18 19:32 - Physical Exam Comments: 08/27/18 21:40 GENERAL: Well developed, well nourished. Awake and alert. No acute distress. HEENT: Normocephalic, atraumatic. Hearing grossly normal. Moist mucous membranes. PERRLA, EOMI. No conjunctival pallor. NECK: Supple. Full ROM. No JVD. CARDIOVASCULAR: Regular rate and rhythm. No murmurs, rubs, or gallops. PULMONARY: No evidence of respiratory distress. Lungs clear to auscultation bilaterally. No wheezing, rales or rhonchi. ABDOMINAL: Soft. Diffuse tenderness to palpation. Non-distended. No rebound or guarding. MUSCULOSKELETAL: Normal range of motion at all joints. No bony deformities or tenderness. EXTREMITIES: No cyanosis. No clubbing. No edema. No calf tenderness or swelling. SKIN: Warm and dry. Normal capillary refill. No rashes. No jaundice. NEUROLOGICAL: Alert, awake, appropriate. Cranial nerves 2-12 grossly intact. Normal speech. Gait is normal without ataxia. PSYCHIATRIC: Cooperative. Good eye contact. Appropriate mood and affect. Moderate Sedation - Procedure Monitoring Vital Signs: Procedure Monitoring Vital Signs Temperature 99.2 F 08/27/18 19:32 Pulse Rate 101 H 08/27/18 19:32 Respiratory Rate 18 08/27/18 19:32 Blood Pressure 183/127 H 08/27/18 19:32 O2 Sat by Pulse Oximetry (%) 100 08/27/18 19:32 Heart Score/ECG Review #1 General ECG Interpretation: Sinus Rhythm, Normal Rate, Normal Intervals, No acute ischemic changes ED Treatment Course - LABORATORY CBC & Chemistry Diagram: 08/27/18 19:39 08/27/18 19:39 - RADIOLOGY Radiology Studies Ordered: Category Date Time Status ABDOMEN & PELVIS CT W/O CONTR [CT] Stat CT Scan 08/27/18 19:[address] WITHOUT CONTRAST [CT] Stat CT Scan 08/27/18 19:43 Ordered CHEST X-RAY PORTABLE* [RAD] Stat Radiology 08/27/18 19:27 Ordered Medical Decision Making - Medical Decision Making 08/27/18 22:07 THe patient is a 48F with MMP who presents to the ER with complaints of nausea and abdominal pain, found to have a low grade fever. Pt getting medications and requests anxiolytics. BNP elevated. CBC, CMP, trop negative. Cr WNL. Pending imaging and reassessment. 08/28/18 00:11 CTAP negative. Last BP 160's/110's. Pt endorsed to Dr. Wade for admission. *DC/Admit/Observation/Transfer Diagnosis at time of Disposition: CHF exacerbation Qualifiers: Heart failure type: unspecified Qualified Code(s): I50.9 - Heart failure, unspecified - Discharge Dispostion Condition at time of disposition: Guarded Decision to Admit order: Yes - Referrals Referrals: Doreen Kahn MD [Primary Care Provider] - - Patient Instructions - Post Discharge Activity
[2018-08-27 20:31] LABS: BASO % 0.6 % (0-2.0); EOS % 0.2 % (0-4.5); HEMATOCRIT 42.3 % (32.4-45.2); HEMOGLOBIN 14.5 GM/dL (10.7-15.3); LYMPH % 8.1 % (8-40); MCH 30.1 pg (25.7-33.7); MCHC 34.3 g/dl (32.0-36.0); MEAN CELL VOLUME 87.9 fl (80-96); MEAN PLT VOLUME 8.7 fl (7.5-11.1); MONO % 3.9 % (3.8-10.2); NEUT % 87.2 % (42.8-82.8); PLATELET COUNT 279 K/MM3 (134-434); RBC 4.82 M/mm3 (3.60-5.2); RDW 14.1 % (11.6-15.6); WHITE BLOOD COUNT 15.3 K/mm3 (4.0-10.0)
[2018-08-27 20:45] LABS: INR 1.05 (0.83-1.09); PROTHROMBIN TIME (PATIENT) 12.4 SEC (9.7-13.0)
[2018-08-27 20:53] LABS: URINE APPEARANCE CLEAR; URINE BILIRUBIN NEGATIVE (<2.0 mg/dL); URINE COLOR LTYELLOW; URINE GLUCOSE (UA) 1+ (NEGATIVE); URINE KETONE NEGATIVE (NEGATIVE); URINE LEUK ESTERASE NEGATIVE (NEGATIVE); URINE NITRITE NEGATIVE (NEGATIVE); URINE PROTEIN 1+ (NEGATIVE); URINE UROBILINOGEN NEGATIVE mg/dL (0.2-1.0)
[2018-08-27 21:03] LABS: EPI CELLS RARE /HPF (FEW); URINE HYALINE CAST 3 /lpf
[2018-08-27 21:09] LABS: ALBUMIN 4.4 g/dl (3.4-5.0); ALK PHOS 75 U/L (45-117); ANION GAP 11 MMOL/L (8-16); BILIRUBIN,TOTAL 0.6 mg/dL (0.2-1); BLOOD UREA NITROGEN 23 mg/dL (7-18); CALCIUM 9.5 mg/dL (8.5-10.1); CHLORIDE 107 mmol/L (98-107); CO2 23 mmol/L (21-32); CREATININE 1.1 mg/dL (0.55-1.3); GLUCOSE,RANDOM 178 mg/dL (74-106); LIPASE 459 U/L (73-393); POTASSIUM 3.6 mmol/L (3.5-5.1); SGOT/AST 9 U/L (15-37); SGPT/ALT 29 U/L (13-61); SODIUM 141 mmol/L (136-145); TOT PROT 7.9 g/dl (6.4-8.2)
[2018-08-27] MEDS ORDERED: ACETAMINOPHEN 1000 MG/100 ML VIAL (NON FORMULARY) IVPB ONE (21:21)
[2018-08-27] MEDS ORDERED: ACETAMINOPHEN INJECTION 100 ML IVPB ONE (21:22)
[2018-08-27 21:31] LABS: N-TERMINAL BNP 2081.3 pg/ml (5-125)
[2018-08-27] MEDS ORDERED: FUROSEMIDE 40 MG/4 ML INJECTABLE VIAL IVPUSH ONE (21:56)
[2018-08-27] MEDS ORDERED: LORazepam 2 MG/ML SDV VIAL ONE (22:04)
[2018-08-27] MEDS ORDERED: FUROSEMIDE 40 MG/4 ML INJECTABLE VIAL ONE (22:05)
[2018-08-27 23:00] LABS: ACETONE SERUM NEGATIVE (NEGATIVE)
[2018-08-28] MEDS ORDERED: LABETALOL HCL 100 MG TABLET (FP) PO ONE (00:55)
[2018-08-28] MEDS ORDERED: ACETAMINOPHEN/CAFFEINE/BUTALBITAL 1 TAB PO ONE (01:01)
[2018-08-28] MEDS ORDERED: LABETALOL HCL 100 MG TABLET (FP) ONE (01:35)
[2018-08-28] MEDS ORDERED: ACETAMINOPHEN/CAFFEINE/BUTALBITAL 1 TAB ONE (01:35)
--- NOTE | 2018-08-28 01:36 | HP ---
CHIEF COMPLAINT: vomiting and abdominal pain PCP: Dr. Tapia HISTORY OF PRESENT ILLNESS: 48F w/ pmhx of HTN, polysubstance abuse, NIDDM, DVT (s/p IVC filter placement), anxiety, depression, kidney stones presents with 1 day history of vomiting and abdominal pain. Pt states she has had multiple non-bloody, bilious, vomiting episodes since waking up this morning. She denies eating anything new or exposure to sick contacts. Her last meal was the day prior, where she had fish and rice. She also complaints of associated headache that is band-like as well as in the back of her head. Admits to taking her temperature at home at 100.0. She denies vision changes, syncopal episodes, chest pain, shortness of breath. She states she usually takes Excedrin for her headache, however she denies taking any meds for her pain at home since she is unable to tolerate PO. Additionally, she complains of mid-epigastric and mid-abdominal pain that also started this morning. Pt endorses one episode of diarrhea while at the hospital , non-bloody, mucus, watery. ER course was notable for: (1) BP 162/114 --> 170/119; WBC 15.3 (2) 1L NS, Pepcid IVPB, Reglan 10 IVPB, Ativan 1 mg IVP, Lasix 40 IVP (3) Recent Travel: Denies PAST MEDICAL HISTORY: As per HPI PAST SURGICAL HISTORY: Lap bernadine Prolapsed bladder R ankle repair IVC placement Social History: Smokin cig/day x 20 years Alcohol: Denies Drugs: Smokes marijuana twice a week Family History: Mother- Ovarian cx Allergies ondansetron [From Zofran] Adverse Reaction (Severe, Verified 08/27/18 19:35) prolonged qt interval HOME MEDICATIONS: Home Medications Medication Instructions Recorded Pregabalin [Lyrica] 100 mg PO TID 10/02/16 traZODone HCL [Desyrel -] 100 mg PO HS 02/13/18 Quetiapine Fumarate [Seroquel -] 50 mg PO HS #30 tablet 05/17/18 Escitalopram Oxalate [Lexapro -] 5 mg PO DAILY 08/06/18 Amlodipine Besylate 10 mg PO DAILY #30 tablet 08/18/18 Apixaban [Eliquis] 2.5 mg PO BID #60 tablet 08/18/18 Bacitracin - [Bacitracin Topical 1 applic TP DAILY #1 tube 08/18/18 Ointment -] Labetalol HCl [Normodyne -] 400 mg PO BID #120 tablet 08/18/18 Prednisone See Taper PO DAILY #12 tablet 08/18/18 Sitagliptin Phosphate [Januvia] 100 mg PO DAILY #30 tablet 08/18/18 REVIEW OF SYSTEMS CONSTITUTIONAL: Admits to band-like headache, admits to fever, generalized weakness; Denies chills, diaphoresis, loss of appetite HEENT: Denies difficulty swallowing, ear pain, eye pain, visual/hearing changes CARDIOVASCULAR: Denies chest pain, palpitations, irregular heart rate, lightheadedness, peripheral edema RESPIRATORY: denies sob, cub[place], orthopnea, wheezing, cough GASTROINTESTINAL: Admits to non-bloody, bilious vomiting and nausea; Denies abdominal distension, constipation GENITOURINARY: Denies hematuria, dysuria MUSCULOSKELETAL: Denies neck or back pain NEUROLOGIC: Denies bladder/bowel incontinence, facial droop, slurred speech PHYSICAL EXAMINATION Vital Signs - 24 hr 08/27/18 08/27/18 08/27/18 19:32 19:35 20:15 Temperature 99.2 F 100.0 F H Pulse Rate 101 H Pulse Rate [ Left Radial] Respiratory 18 Rate Blood Pressure 183/127 H Blood Pressure [Left Arm] O2 Sat by Pulse 100 99 Oximetry (%) 08/27/18 08/28/18 20:47 00:00 Temperature Pulse Rate Pulse Rate [ 101 H 71 Left Radial] Respiratory 20 18 Rate Blood Pressure Blood Pressure 203/126 H 162/114 H [Left Arm] O2 Sat by Pulse 99 99 Oximetry (%) GENERAL: AAOx3. NAD. Resting comfortably. HEENT: AT/NC. EOMI. KENNA. Dry mucus membranes. Facial muscles intact. Tongue midline. NECK: Normal range of motion, supple without lymphadenopathy, JVD, or masses. LUNGS: Decreased BS in L lower lung base, no wheezes/crackles noted. HEART: RRR. Normal S1, S2. No murmurs heard. ABDOMEN: Obese. Soft, NT/ND. +BS in all 4Qs. No masses noted. MUSCULOSKELETAL: No peripheral edema noted. No visible ecchymoses or deformity seen. UPPER EXTREMITIES: 2+ radial pulses, warm, well-perfused. No cyanosis. No clubbing. No peripheral edema. +5/5 shoulder flexion/extension/abduction/ adduction, +5/5 elbow flexion/extension, +5/5 hand screw remover LOWER EXTREMITIES: 2+ dorsalis pulses, warm, well-perfused. +5/5 hip flexion/ extension, +5/5 knee flexion/extension, +5/5 plantarflexion/dorsiflexion NEUROLOGICAL: B/L sensation intact. No facial droop. Normal speech. Antalgic gait, R sided limp. Laboratory Results - last 24 hr 08/27/18 08/27/18 08/27/18 19:39 19:39 19:39 WBC 15.3 H RBC 4.82 Hgb 14.5 Hct 42.3 MCV 87.9 MCH 30.1 MCHC 34.3 RDW 14.1 Plt Count 279 MPV 8.7 Absolute Neuts (auto) 13.4 H Neutrophils % 87.2 H Lymphocytes % 8.1 Monocytes % 3.9 Eosinophils % 0.2 D Basophils % 0.6 Nucleated RBC % 0 PT with INR 12.40 INR 1.05 Sodium 141 Potassium 3.6 Chloride 107 Carbon Dioxide 23 Anion Gap 11 BUN 23 H Creatinine 1.1 Creat Clearance w eGFR 53.47 Random Glucose 178 H Calcium 9.5 Total Bilirubin 0.6 AST 9 L ALT 29 Alkaline Phosphatase 75 Creatine Kinase 41 Troponin I < 0.02 B-Natriuretic Peptide 2081.3 H Total Protein 7.9 Albumin 4.4 Lipase 459 H Serum , Qual Urine Color Urine Appearance Urine pH Ur Specific [place] Urine Protein Urine Glucose (UA) Urine Ketones Urine Blood Urine Nitrite Urine Bilirubin Urine Urobilinogen Ur Leukocyte Esterase Urine WBC (Auto) Urine RBC (Auto) Ur Epithelial Cells Hyaline Casts Alcohol, Quantitative < 3.0 Acetone, Qual Negative L 08/27/18 08/27/18 19:39 20:42 WBC RBC Hgb Hct MCV MCH MCHC RDW Plt Count MPV Absolute Neuts (auto) Neutrophils % Lymphocytes % Monocytes % Eosinophils % Basophils % Nucleated RBC % PT with INR INR Sodium Potassium Chloride Carbon Dioxide Anion Gap BUN Creatinine Creat Clearance w eGFR Random Glucose Calcium Total Bilirubin AST ALT Alkaline Phosphatase Creatine Kinase Troponin I B-Natriuretic Peptide Total Protein Albumin Lipase Serum , Qual Negative Urine Color Ltyellow Urine Appearance Clear Urine pH 7.0 Ur Specific [place] 1.013 Urine Protein 1+ H Urine Glucose (UA) 1+ H Urine Ketones Negative Urine Blood Negative Urine Nitrite Negative Urine Bilirubin Negative Urine Urobilinogen Negative Ur Leukocyte Esterase Negative Urine WBC (Auto) 3 Urine RBC (Auto) <1 Ur Epithelial Cells Rare Hyaline Casts 3 Alcohol, Quantitative Acetone, Qual IMAGING: * CXR: neg * CTAP/CT chest: No acute lung disease. Stable L adrenal nodule 2.8 x 1.6 cm, unchanged in size since prior CT on 07/11/16. Diverticulosis coli w/o evid of acute diverticulitis. No evidence of acute process in abd/pel. * Head CT: pending ASSESSMENT/PLAN: 48F w/ pmhx of HTN, polysubstance abuse, NIDDM, DVT (s/p IVC filter placement), anxiety, depression, kidney stones presents with 1 day history of vomiting and abdominal pain. #Headache likely 2/2 Hypertensive Emergency; Pt has a history of medication non- compliance -Home Labetolol 400 given -170/119 --> now 158/101 -recheck BP in AM Cont home meds: Amlodipine 10 QD, Labetolol 400 BID #Diarrhea -Previously C. diff neg, and was treated in the past. However, previous admission, pt had C.diff +toxin, -Ag with no need for treatment. -Check Lactoferrin -C. diff toxin/Ag/PCR ordered #Hx of DM -BGMs/ISS ACHS -Hold home DM meds #Hx of ATN (recent renal biopsy done last admission) -Off PO Prednisone prescribed from last admission -Cont to monitor BMP -BUN/Cr 23/1.1 #Chronic DVT Cont home med: Eliquis 2.5 BID #L toe ulcer -MRI as outpatient in 3 months #Hx of Polysubstance Abuse -Drug cessation counseling #Elevated Lipase; Lipase 459 -Likely not pancreatitis, consider esophagitis given pt's symptoms of abd pain and multiple vomiting episodes -serial abd exams -Protonix 40 QD #Depression/Anxiety Cont home med: Lexapro 5 QD, Seroquel 50 HS #Prophylaxis -Eliquis 2.5 BID -Protonix 40 QD #FEN -PO hydration -recheck lytes in AM -Diabetic/Sodium-controlled diet dispo -full code -admit to tele obs Visit type - Emergency Visit Emergency Visit: Yes ED Registration Date: 08/28/18 Care time: The patient presented to the Emergency Department on the above date and was hospitalized for further evaluation of their emergent condition. - New Patient This patient is new to me today: Yes Date on this admission: 08/28/18 - Critical Care Critical Care patient: No
--- NOTE | 2018-08-28 01:45 | PN ---
Teaching Attending Note Name of Resident: Aleyda Walters ATTENDING PHYSICIAN STATEMENT I saw and evaluated the patient. I reviewed the resident's note and discussed the case with the resident. I agree with the resident's findings and plan as documented. SUBJECTIVE: Seen and examined; please refer to resident note for further historical details. Briefly, this is a 48 y/o female who is well-known to s service from prior admissions who was recently DCd ~10 days ago; she presents with hypertensive emergency complaining of headache, nausea, vomitting, and several episodes of non-bloody diarrhea. She woke up this morning with RO and the sx became so severe she began to get nauseous and had some bilious vomitting. Hasn 't been able to keep any food down today. She took her medications but there is a good chance that some may have been thrown up. She was found to be hypertensive to the 200/120-range on presentation. Denies any SOB, CP, etc. She was saturating 99% on RA and was slightly tachycardic. She has no history of CHF and had a normal EF with no wma's on a 06/2018 echocardiogram. She has a slight leukocytosis with neutrophilia and normal coags. Her Cr is wnl. BNP is elevated at 2000. Lipase is 459 which is not even twice the upper limit of normal. CT scan done in the ER of the Chest/Abdomen/Pelvis shows no acute lung disease, unchanged L-adrenal nodule, IVC filter in place, diverticulosis without diverticulitis, and no evidence of any acute process in the abdomen or pelvis. She still has somewhat of a headache. Events in ER noted; please see their notes for further documentation. We are administering her BP medications and checking a CT head given the nausea/vomitting and largely elevated pressures ; she is mentating well and has no other neurologic complaints. Denies hx migraines. Admitting to the floor medicine. Was recently discharged from the medicine service for labetalol overdose causing ANASTASIA 2/2 ATN for which she recently completed a course of steroids. 10 sys ROS done and negative aside from HPI PMH, PSH, Social hx, Family hx reviewed OBJECTIVE: VS, labs, imaging reviewed NAD, AAO, resting comfortably in bed RRR s1/2 no mgr Diffuse mild abdominal tenderness with no distention, +BS Lung exam limited 2/2 habitus but there doesn't appear to be jackson crackles, w/ sym exp CN2-12 wnl, no fnd Normal mood, appropriate behavior ASSESSMENT AND PLAN: Patient presents with headache, nausea, vomitting found to be in hypertensive emergency. She has elevated BNP and a slightly elevated lipase with a WBC count. She denies further heroin abuse. Admitting to medicine 1) Hypertensive Emergency -200/120 in the ER; sx would be headache, etc. Likely the cause of cardiac strain leading to increased BNP -Improved after giving her home medications with some aleviation of RO, etc. Will continue home meds and monitor -Checking CT head (at risk for bleed given on AC with her current sx and HTN) -Use PRNs to keep BP controlled overnight. Old echo reviewed. Continue labetalol and norvasc. 2) Headache -Likely 2/2 #1; followup head CT. PRN management. She denies s/s migraines, etc. No meningeal signs 3) Diarrhea -Checking Ag and PCR with CDiff given past hx; If negative continue loperimide. 4) Hx ATN -Off steroids; monitor BMP and UOP. Normal renal function on admission. 5) Hx DM -SSI 6) Chronic DVT -Continue Eliquis 2.5 BID (was discussed with heme last admit per [facility]) 7) Left toe ulcer -FU MRI as OP 3 months 8) Heroin Abuse -Denies current use; states last time was prior to her last admission. Followup OP with routine HIV, HCV screening, etc. 9) Elevated lipase -Not indicative of pancreatitis given the low value and the negative imaging study. Will monitor abdominal exam. Considering other causes of elevated lipase and considering esophagitis, etc. especially given the vomitting Will start on protonix 40 QD and monitor for symptomatic improvement. 10) Depression/Anxiety -Continue home lexapro and seroquel; follow QTc 11) Elevated BNP -Events in ER reviewed; she is satting 99% on RA and has no SOB, CP, etc. The official CT chest read is that there is no acute lung disease. -Could be due to strain from massively elevated BP. She appears clinically euvolemic; continue to follow the volume status and monitor. I will hold off on further fluids/diuresis for now. 2018 echocardiogram reviewed; discussed in HPI FENA -PO -PRN replete -Heart Healthy diet -As tolerated Full Code
[2018-08-28 05:42] LABS: BASO % 1.1 % (0-2.0); EOS % 0.6 % (0-4.5); HEMATOCRIT 37.7 % (32.4-45.2); HEMOGLOBIN 12.6 GM/dL (10.7-15.3); LYMPH % 18.6 % (8-40); MCH 29.5 pg (25.7-33.7); MCHC 33.6 g/dl (32.0-36.0); MEAN CELL VOLUME 87.9 fl (80-96); MEAN PLT VOLUME 8.7 fl (7.5-11.1); MONO % 7.9 % (3.8-10.2); NEUT % 71.8 % (42.8-82.8); PLATELET COUNT 252 K/MM3 (134-434); RBC 4.28 M/mm3 (3.60-5.2); RDW 13.9 % (11.6-15.6); WHITE BLOOD COUNT 12.4 K/mm3 (4.0-10.0)
[2018-08-28 06:15] LABS: ALBUMIN 3.7 g/dl (3.4-5.0); ALK PHOS 66 U/L (45-117); ANION GAP 9 MMOL/L (8-16); BILIRUBIN,TOTAL 0.8 mg/dL (0.2-1); BLOOD UREA NITROGEN 21 mg/dL (7-18); CALCIUM 8.7 mg/dL (8.5-10.1); CHLORIDE 107 mmol/L (98-107); CO2 24 mmol/L (21-32); CREATININE 1.1 mg/dL (0.55-1.3); GLUCOSE,RANDOM 175 mg/dL (74-106); SGOT/AST 9 U/L (15-37); SGPT/ALT 24 U/L (13-61); SODIUM 140 mmol/L (136-145); TOT PROT 6.9 g/dl (6.4-8.2)
[2018-08-28] MEDS ORDERED: PREGABALIN 100 MG CAPSULE ONE ×2 (06:33→15:08)
[2018-08-28] MEDS: PREGABALIN 100 MG CAPSULE PO SCH ×3 (06:36→21:53)
[2018-08-28] MEDS ORDERED: INSULIN (NOVOLOG) ASPART 100 UNITS/ML 10ML VIAL ONE ×2 (06:39→14:50)
[2018-08-28] MEDS: INSULIN SLIDING SCALE (NOVOLOG) 1 VIAL SQ SCH ×4 (07:36→21:56)
[2018-08-28] MEDS ORDERED: POTASSIUM CHLORIDE TABS 20 MEQ TABLET.ER (FP) PO ONE ×3 (08:04→21:19)
--- NOTE | 2018-08-28 09:52 | EKG ---
Test Reason : Blood Pressure : / mmHG Vent. Rate : 099 BPM Atrial Rate : 099 BPM P-R Int : 144 ms QRS Dur : 090 ms QT Int : 366 ms P-R-T Axes : 016 046 012 degrees QTc Int : 469 ms NORMAL SINUS RHYTHM POSSIBLE LEFT ATRIAL ENLARGEMENT POSSIBLE ANTERIOR INFARCT , AGE UNDETERMINED ABNORMAL ECG WHEN COMPARED WITH ECG OF 06-AUG-2018 14:46, NO SIGNIFICANT CHANGE WAS FOUND Confirmed by TAHIR CLEANING, YARA ([id number]) on 08/28/2018 9:52:24 AM Referred By: Confirmed By:YARA HARO MD
[2018-08-28] MEDS ORDERED: PANTOPRAZOLE 40 MG TABLET (FP) PO SCH (10:00)
[2018-08-28] MEDS ORDERED: ENOXAPARIN NA (PORCINE) 40 MG/0.4 ML DISP.SYRIN SQ SCH (10:00)
--- NOTE | 2018-08-28 10:15 | PN ---
Physical Exam: SUBJECTIVE: Patient seen and examined at bedside- no acute events overnight; patient states that her abdominal pain is feeling better and she has not had anymore episodes of vomiting or diarrhea since she has been in the hospital- she denies any CP/SOB/N/v fevers or chills OBJECTIVE: Vital Signs Period Temp Pulse Resp BP Sys/Puente Pulse Ox Last 24 Hr 99.1 F-100.0 F 71-120 17-20 158-203/101-127 96-100 GENERAL: The patient is awake, alert, and fully oriented, in no acute distress. EYES:PEERLA; EOMI; no scleral icterus. NECK: no JVD, no lymphadenopathy. LUNGS: CTA B/L; no rales, rhonchi or wheezing. HEART: Regular rate and rhythm, S1, S2 without murmur, rub or gallop. ABDOMEN: soft; slight tenderness upon palpatio; +BS in all 4 quadrants EXTREMITIES: 2+ pulses, warm, well-perfused, no edema. NEUROLOGICAL: Cranial nerves II through XII grossly intact. Normal speech, gait not observed. PSYCH: Normal mood, normal affect. SKIN: Warm, dry, normal turgor, no rashes or lesions noted Laboratory Results - last 24 hr 08/27/18 08/27/18 08/27/18 19:39 19:39 19:39 WBC 15.3 H RBC 4.82 Hgb 14.5 Hct 42.3 MCV 87.9 MCH 30.1 MCHC 34.3 RDW 14.1 Plt Count 279 MPV 8.7 Absolute Neuts (auto) 13.4 H Neutrophils % 87.2 H Lymphocytes % 8.1 Monocytes % 3.9 Eosinophils % 0.2 D Basophils % 0.6 Nucleated RBC % 0 PT with INR 12.40 INR 1.05 Sodium 141 Potassium 3.6 Chloride 107 Carbon Dioxide 23 Anion Gap 11 BUN 23 H Creatinine 1.1 Creat Clearance w eGFR 53.47 POC Glucometer Random Glucose 178 H Calcium 9.5 Total Bilirubin 0.6 AST 9 L ALT 29 Alkaline Phosphatase 75 Creatine Kinase 41 Troponin I < 0.02 B-Natriuretic Peptide 2081.3 H Total Protein 7.9 Albumin 4.4 Lipase 459 H Serum , Qual Urine Color Urine Appearance Urine pH Ur Specific [place] Urine Protein Urine Glucose (UA) Urine Ketones Urine Blood Urine Nitrite Urine Bilirubin Urine Urobilinogen Ur Leukocyte Esterase Urine WBC (Auto) Urine RBC (Auto) Ur Epithelial Cells Hyaline Casts Alcohol, Quantitative < 3.0 Acetone, Qual Negative L 08/27/18 08/27/18 08/28/18 19:39 20:42 05:20 WBC 12.4 H RBC 4.28 Hgb 12.6 Hct 37.7 MCV 87.9 MCH 29.5 MCHC 33.6 RDW 13.9 Plt Count 252 MPV 8.7 Absolute Neuts (auto) 8.9 H Neutrophils % 71.8 Lymphocytes % 18.6 D Monocytes % 7.9 D Eosinophils % 0.6 D Basophils % 1.1 Nucleated RBC % 0 PT with INR INR Sodium Potassium Chloride Carbon Dioxide Anion Gap BUN Creatinine Creat Clearance w eGFR POC Glucometer Random Glucose Calcium Total Bilirubin AST ALT Alkaline Phosphatase Creatine Kinase Troponin I B-Natriuretic Peptide Total Protein Albumin Lipase Serum , Qual Negative Urine Color Ltyellow Urine Appearance Clear Urine pH 7.0 Ur Specific [place] 1.013 Urine Protein 1+ H Urine Glucose (UA) 1+ H Urine Ketones Negative Urine Blood Negative Urine Nitrite Negative Urine Bilirubin Negative Urine Urobilinogen Negative Ur Leukocyte Esterase Negative Urine WBC (Auto) 3 Urine RBC (Auto) <1 Ur Epithelial Cells Rare Hyaline Casts 3 Alcohol, Quantitative Acetone, Qual 08/28/18 08/28/18 05:20 06:43 WBC RBC Hgb Hct MCV MCH MCHC RDW Plt Count MPV Absolute Neuts (auto) Neutrophils % Lymphocytes % Monocytes % Eosinophils % Basophils % Nucleated RBC % PT with INR INR Sodium 140 Potassium 3.0 L Chloride 107 Carbon Dioxide 24 Anion Gap 9 BUN 21 H Creatinine 1.1 Creat Clearance w eGFR 53.47 POC Glucometer 172 Random Glucose 175 H Calcium 8.7 Total Bilirubin 0.8 AST 9 L ALT 24 Alkaline Phosphatase 66 Creatine Kinase Troponin I B-Natriuretic Peptide Total Protein 6.9 Albumin 3.7 Lipase Serum , Qual Urine Color Urine Appearance Urine pH Ur Specific [place] Urine Protein Urine Glucose (UA) Urine Ketones Urine Blood Urine Nitrite Urine Bilirubin Urine Urobilinogen Ur Leukocyte Esterase Urine WBC (Auto) Urine RBC (Auto) Ur Epithelial Cells Hyaline Casts Alcohol, Quantitative Acetone, Qual Active Medications Generic Name Dose Route Start Last Admin Trade Name Freq PRN Reason Stop Dose Admin Amlodipine Besylate 10 mg 08/28/18 10:00 Norvasc - PO DAILY NI Apixaban 2.5 mg 08/28/18 10:00 Eliquis - PO BID [facility] Escitalopram Oxalate 5 mg 08/28/18 10:00 Lexapro - PO DAILY [facility] Insulin Aspart 1 vial 08/28/18 07:00 08/28/18 07:36 Novolog Vial Sliding Scale - SQ 2 unit ACHS NI Administration Protocol Labetalol HCl 400 mg 08/28/18 10:00 Normodyne - PO BID [facility] Pantoprazole Sodium 40 mg 08/28/18 10:00 Protonix - PO DAILY [facility] Pregabalin 100 mg 08/28/18 06:00 08/28/18 06:36 Lyrica - PO 100 mg TID NI Administration Quetiapine Fumarate 50 mg 08/28/18 22:00 Seroquel - PO HS [facility] ASSESSMENT/PLAN: 48F w/ pmhx of HTN, polysubstance abuse, NIDDM, DVT (s/p IVC filter placement), anxiety, depression, kidney stones presents with 1 day history of vomiting and abdominal pain. #Headache likely 2/2 Hypertensive Emergency; Pt has a history of medication non- compliance -Home Labetolol 400 given -170/119 --> now 158/101 -recheck BP in AM Cont home meds: Amlodipine 10 QD, Labetolol 400 BID #Diarrhea -Previously C. diff neg, and was treated in the past. However, previous admission, pt had C.diff +toxin, -Ag with no need for treatment. -Check Lactoferrin -C. diff toxin/Ag/PCR ordered #Hx of DM -BGMs/ISS ACHS -Hold home DM meds #Hx of ATN (recent renal biopsy done last admission) -Off PO Prednisone prescribed from last admission -Cont to monitor BMP -BUN/Cr /.1 #Chronic DVT Cont home med: Eliquis 2.5 BID #L toe ulcer -MRI as outpatient in 3 months #Hx of Polysubstance Abuse -Drug cessation counseling #Elevated Lipase; Lipase 459 -Likely not pancreatitis, consider esophagitis given pt's symptoms of abd pain and multiple vomiting episodes -serial abd exams -Protonix 40 QD #Depression/Anxiety Cont home med: Lexapro 5 QD, Seroquel 50 HS #Prophylaxis -Eliquis 2.5 BID -Protonix 40 QD #FEN -PO hydration -recheck lytes in AM -Diabetic/Sodium-controlled diet dispo -full code -admit to tele obs Problem List - Problems (1) CHF exacerbation Code(s): I50.9 - HEART FAILURE, UNSPECIFIED Qualifiers: Heart failure type: unspecified Qualified Code(s): I50.9 - Heart failure, unspecified (2) Diarrhea Code(s): R19.7 - DIARRHEA, UNSPECIFIED Qualifiers: Diarrhea type: unspecified type Qualified Code(s): R19.7 - Diarrhea, unspecified Visit type - Emergency Visit Emergency Visit: Yes ED Registration Date: 08/28/18 Care time: The patient presented to the Emergency Department on the above date and was hospitalized for further evaluation of their emergent condition. - New Patient This patient is new to me today: Yes Date on this admission: 08/28/18 - Critical Care Critical Care patient: No
[2018-08-28] MEDS: ESCITALOPRAM OXALATE 10 MG TABLET (FP) PO SCH (10:17)
[2018-08-28] MEDS: amLODIPine BESYLATE 10 MG TABLET (FP) PO SCH (10:17)
[2018-08-28] MEDS: LABETALOL HCL 200 MG TABLET (FP) PO SCH ×2 (10:17→21:53)
[2018-08-28] MEDS: APIXABAN 2.5 MG TABLET PO SCH ×2 (10:17→21:52)
[2018-08-28] MEDS ORDERED: PANTOPRAZOLE 40 MG TABLET (FP) ONE (10:45)
[2018-08-28] MEDS ORDERED: APIXABAN 5 MG TABLET PO ONE (10:46)
[2018-08-28 12:48] LABS: MAGNESIUM 1.5 mg/dL (1.8-2.4); PHOSPHOROUS 3.4 mg/dL (2.5-4.9)
[2018-08-28] MEDS ORDERED: MAGNESIUM OXIDE 400 MG TABLET (FP) PO ONE (13:09)
[2018-08-28] MEDS ORDERED: LORazepam 2 MG/ML SDV VIAL IM ONE (18:02)
[2018-08-28] MEDS ORDERED: ONDANSETRON 4 MG/2 ML VIAL IVPUSH ONE (18:02)
[2018-08-28] MEDS ORDERED: PROCHLORPERAZINE INJECTION 10 MG/2 ML VIAL IM ONE (18:23)
[2018-08-28] MEDS ORDERED: MAGNESIUM SULF 50% (8.12 MEQ/2 ML-1 GM VIAL) IVPB ONE ×2 (18:27→19:15)
--- NOTE | 2018-08-28 18:48 | PN ---
Teaching Attending Note Name of Resident: Bea Avery ATTENDING PHYSICIAN STATEMENT I saw and evaluated the patient. I reviewed the resident's note and discussed the case with the resident. I agree with the resident's findings and plan as documented. SUBJECTIVE: Patient is comfortable with no acute distress, feels nauseas. OBJECTIVE: Vital Signs Temperature 98.0 F 08/28/18 17:00 Pulse Rate 88 08/28/18 17:35 Respiratory Rate 20 08/28/18 17:35 Blood Pressure 128/77 08/28/18 17:35 O2 Sat by Pulse Oximetry (%) 98 08/28/18 16:15 Initial Vital Signs Temp Pulse Resp BP Pulse Ox 99.2 F 101 H 18 183/127 H 100 08/27/18 19:32 08/27/18 19:32 08/27/18 19:32 08/27/18 19:32 08/27/18 19:32 GENERAL: The patient is awake, alert, and fully oriented, in no acute distress. EYES:PEERLA; EOMI; no scleral icterus. NECK: no JVD, no lymphadenopathy. LUNGS: CTA B/L; no rales, rhonchi or wheezing. HEART: Regular rate and rhythm, S1, S2 without murmur, rub or gallop. ABDOMEN: soft; slight tenderness , +BS in all 4 quadrants EXTREMITIES: 2+ pulses, warm, well-perfused, no edema. NEUROLOGICAL: Cranial nerves II through XII grossly intact. Normal speech, gait not observed. PSYCH: Normal mood, normal affect. SKIN: Warm, dry, normal turgor, no rashes or lesions noted CBCD WBC 12.4 K/mm3 (4.0-10.0) H 08/28/18 05:20 RBC 4.28 M/mm3 (3.60-5.2) 08/28/18 05:20 Hgb 12.6 GM/dL (10.7-15.3) 08/28/18 05:20 Hct 37.7 % (32.4-45.2) 08/28/18 05:20 MCV 87.9 fl (80-96) 08/28/18 05:20 MCHC 33.6 g/dl (32.0-36.0) 08/28/18 05:20 RDW 13.9 % (11.6-15.6) 08/28/18 05:20 Plt Count 252 K/MM3 (134-434) 08/28/18 05:20 MPV 8.7 fl (7.5-11.1) 08/28/18 05:20 CMP Sodium 140 mmol/L (136-145) 08/28/18 05:20 Potassium 3.0 mmol/L (3.5-5.1) L 08/28/18 05:20 Chloride 107 mmol/L (98-107) 08/28/18 05:20 Carbon Dioxide 24 mmol/L (21-32) 08/28/18 05:20 Anion Gap 9 MMOL/L (8-16) 08/28/18 05:20 BUN 21 mg/dL (7-18) H 08/28/18 05:20 Creatinine 1.1 mg/dL (0.55-1.3) 08/28/18 05:20 Creat Clearance w eGFR 53.47 (>60) 08/28/18 05:20 Random Glucose 175 mg/dL (74-106) H 08/28/18 05:20 Calcium 8.7 mg/dL (8.5-10.1) 08/28/18 05:20 Total Bilirubin 0.8 mg/dL (0.2-1) 08/28/18 05:20 AST 9 U/L (15-37) L 08/28/18 05:20 ALT 24 U/L (13-61) 08/28/18 05:20 Alkaline Phosphatase 66 U/L (45-117) 08/28/18 05:20 Total Protein 6.9 g/dl (6.4-8.2) 08/28/18 05:20 Albumin 3.7 g/dl (3.4-5.0) 08/28/18 05:20 CARDIAC ENZYMES Creatine Kinase 41 U/L (26-192) 08/27/18 19:39 Troponin I < 0.02 ng/ml (0.00-0.05) 08/27/18 19:39 Current Medications Generic Name Dose Route Start Last Admin Trade Name Freq PRN Reason Stop Dose Admin Amlodipine Besylate 10 mg 08/28/18 10:00 08/28/18 10:17 Norvasc - PO 10 mg DAILY NI Administration Apixaban 2.5 mg 08/28/18 10:00 08/28/18 10:17 Eliquis - PO 2.5 mg BID NI Administration Escitalopram Oxalate 5 mg 08/28/18 10:00 08/28/18 10:17 Lexapro - PO 5 mg DAILY NI Administration Potassium Chloride 10 meq in 100 mls @ 100 mls/hr 08/28/18 18:30 Potassium Chloride 10 Meq Premix Ivpb - IVPB 08/28/18 21:29 Q60M NI Insulin Aspart 1 vial 08/28/18 07:00 08/28/18 11:38 Novolog Vial Sliding Scale - SQ 2 unit ACHS NI Administration Protocol Labetalol HCl 400 mg 08/28/18 10:00 08/28/18 10:17 Normodyne - PO 400 mg BID NI Administration Pregabalin 100 mg 08/28/18 06:00 08/28/18 15:06 Lyrica - PO 100 mg TID NI Administration Quetiapine Fumarate 50 mg 08/28/18 22:00 Seroquel - PO HS [facility] Home Medications Medication Instructions Recorded RX: Pregabalin [Lyrica] 100 mg PO TID 10/02/16 RX: traZODone HCL [Desyrel -] 100 mg PO HS 02/13/18 RX: Quetiapine Fumarate [Seroquel 50 mg PO HS #30 tablet 05/17/18 -] RX: Escitalopram Oxalate [Lexapro 5 mg PO DAILY 08/06/18 -] Apixaban [Eliquis] 2.5 mg PO BID #60 tablet 08/18/18 RX: Amlodipine Besylate 10 mg PO DAILY #30 tablet 08/18/18 RX: Bacitracin - [Bacitracin 1 applic TP DAILY #1 tube 08/18/18 Topical Ointment -] RX: Labetalol HCl [Normodyne -] 400 mg PO BID #120 tablet 08/18/18 RX: Prednisone See Taper PO DAILY #12 tablet 08/18/18 Sitagliptin Phosphate [Januvia] 100 mg PO DAILY #30 tablet 08/18/18 ASSESSMENT AND PLAN: # Acute intractable Nausea will add Tigan IM q12hr prn # electrolyte imbalance replete, mag and potassium # Hx of Polysubstance abuse ,urine toxicology , consult dr. Concepción valentine , patient was on Suboxone before stopped using the medication , possible is having withdrawel symptoms. DVt px: eliquis
[2018-08-28] MEDS ORDERED: TRIMETHOBENZAMIDE HCL 200MG/2ML INJ IM PRN (18:52)
[2018-08-28] MEDS: KCL 10 MEQ IVPB 10 MEQ/100 ML INFUS.BAG IVPB SCH ×2 (20:00→21:51)
[2018-08-28 20:47] LABS: COCAINE, UR NEGATIVE ng/ml (CUTOFF=300); METHADONE, UR NEGATIVE ng/ml (CUTOFF=300); OPIATES, URI NEGATIVE ng/ml (CUTOFF=300); PHENCYCLIDINE,URINE NEGATIVE ng/ml (CUTOFF=25); URINE AMPHETAMINES NEGATIVE ng/ml (CUTOFF=500); URINE BENZODIAZEPINES NEGATIVE ng/ml (CUTOFF=200)
[2018-08-28 20:51] LABS: URINE BARBITURATES POSITIVE ng/ml (CUTOFF=200)
[2018-08-28 21:18] LABS: ANION GAP 12 MMOL/L (8-16); BLOOD UREA NITROGEN 23 mg/dL (7-18); CALCIUM 8.6 mg/dL (8.5-10.1); CHLORIDE 109 mmol/L (98-107); CO2 23 mmol/L (21-32); CREATININE 1.3 mg/dL (0.55-1.3); GLUCOSE,RANDOM 173 mg/dL (74-106); MAGNESIUM 2.4 mg/dL (1.8-2.4); PHOSPHOROUS 2.9 mg/dL (2.5-4.9); POTASSIUM 3.3 mmol/L (3.5-5.1); SODIUM 143 mmol/L (136-145)
[2018-08-28] MEDS: LACTOBACILLUS ACIDOPHILUS 1 TABLET PO SCH (21:52)
[2018-08-28] MEDS: QUEtiapine FUMARATE 50 MG TABLET PO SCH (21:53)
[2018-08-29] MEDS: PREGABALIN 100 MG CAPSULE PO SCH ×3 (05:43→22:33)
[2018-08-29] MEDS: INSULIN SLIDING SCALE (NOVOLOG) 1 VIAL SQ SCH ×4 (06:30→22:38)
[2018-08-29 06:47] LABS: HEMATOCRIT 35.5 % (32.4-45.2); HEMOGLOBIN 12.1 GM/dL (10.7-15.3); MCH 30.1 pg (25.7-33.7); MCHC 34.1 g/dl (32.0-36.0); MEAN CELL VOLUME 88.5 fl (80-96); MEAN PLT VOLUME 8.9 fl (7.5-11.1); PLATELET COUNT 224 K/MM3 (134-434); RBC 4.01 M/mm3 (3.60-5.2); RDW 13.8 % (11.6-15.6); WHITE BLOOD COUNT 9.1 K/mm3 (4.0-10.0)
[2018-08-29 07:05] LABS: ANION GAP 7 MMOL/L (8-16); BLOOD UREA NITROGEN 25 mg/dL (7-18); CALCIUM 8.6 mg/dL (8.5-10.1); CHLORIDE 111 mmol/L (98-107); CO2 26 mmol/L (21-32); CREATININE 1.1 mg/dL (0.55-1.3); GLUCOSE,RANDOM 134 mg/dL (74-106); POTASSIUM 3.4 mmol/L (3.5-5.1); SODIUM 144 mmol/L (136-145)
[2018-08-29] MEDS ORDERED: POTASSIUM CHLORIDE TABS 20 MEQ TABLET.ER (FP) PO ONE (07:30)
--- NOTE | 2018-08-29 10:05 | PN ---
"[facility] Progress Note (SOAP) Subjective: 48 y.o. female referred for consultation , reports diarrhea and abdominal pain , admitted for hypertensive emergency , denies use of opiates since d/c from this facility 10 days ago . Reports cravings and discomfort . This report was requested by: Concepción Urbano | Reference #: [id number] Others' Prescriptions Patient Name: Traci Cobb Date: 1970 Address: [address] [place] [address] Sex: Female Rx Written Rx Dispensed Drug Quantity Days Supply Prescriber Name 08/22/2018 08/23/2018 lyrica 100 mg capsule 90 30 Neghassi, Lobito H 06/26/2018 06/26/2018 suboxone 2 mg-0.5 mg sl film 7 7 Rosa Garcia NP, PHD 06/21/2018 06/21/2018 suboxone 2 mg-0.5 mg sl film 6 6 Rosa Garcia NP, PHD 05/21/2018 05/21/2018 suboxone 8 mg-2 mg sl film 14 7 Rosa Garcia NP, PHD 03/04/2018 05/13/2018 lyrica 100 mg capsule 90 30 Neghassi, Lobito H 05/08/2018 05/13/2018 suboxone 8 mg-2 mg sl film 14 7 Rosa Garcia NP, PHD 05/01/2018 05/06/2018 suboxone 8 mg-2 mg sl film 14 7 Rosa Garcia NP, PHD 04/26/2018 04/30/2018 suboxone 8 mg-2 mg sl film 12 6 Rosa Garcia NP, PHD 04/17/2018 04/19/2018 suboxone 8 mg-2 mg sl film 14 7 Rosa Garcia NP, PHD 04/09/2018 04/11/2018 suboxone 8 mg-2 mg sl film 14 7 Rosa Garcia NP, PHD 03/04/2018 04/05/2018 lyrica 100 mg capsule 90 30 Neghassi, Lobito H 04/02/2018 04/05/2018 suboxone 8 mg-2 mg sl film 14 7 Rosa Garcia NP, PHD 03/27/2018 03/30/2018 suboxone 8 mg-2 mg sl film 12 6 Rosa Garcia NP, PHD 03/20/2018 03/22/2018 suboxone 8 mg-2 mg sl film 16 8 Rosa Garcia BOX MACHINE OPERATOR, PHD 03/13/2018 03/16/2018 suboxone 8 mg-2 mg sl film 16 8 Rosa Garcia BOX MACHINE OPERATOR, PHD 03/06/2018 03/06/2018 suboxone 8 mg-2 mg sl film 16 8 Rosa Garcia BOX MACHINE OPERATOR, PHD 03/04/2018 03/05/2018 zolpidem tartrate 10 mg tablet 15 15 Lobito Ordaz 03/04/2018 03/05/2018 lyrica 100 mg capsule 90 30 Lobito Ordaz 02/26/2018 02/27/2018 suboxone 8 mg-2 mg sl film 16 8 Rosa Garcia BOX MACHINE OPERATOR, PHD 02/20/2018 02/20/2018 suboxone 8 mg-2 mg sl film 14 7 Rosa Garcia BOX MACHINE OPERATOR, PHD 02/13/2018 02/13/2018 suboxone 8 mg-2 mg sl film 14 7 Rosa Garcia BOX MACHINE OPERATOR, PHD 02/08/2018 02/08/2018 suboxone 8 mg-2 mg sl film 10 5 Rosa Garcia BOX MACHINE OPERATOR, PHD 01/30/2018 02/01/2018 suboxone 8 mg-2 mg sl film 14 7 Rosa Garcia BOX MACHINE OPERATOR, PHD 01/29/2018 01/29/2018 zolpidem tartrate 10 mg tablet 15 15 Doreen Tapia () 01/29/2018 01/29/2018 lyrica 100 mg capsule 90 30 Doreen Abraham () 01/23/2018 01/24/2018 suboxone 8 mg-2 mg sl film 14 7 Rosa Garcia BOX MACHINE OPERATOR, PHD 01/17/2018 01/18/2018 suboxone 8 mg-2 mg sl film 14 7 Rosa Garcia BOX MACHINE OPERATOR, PHD 01/02/2018 01/02/2018 suboxone 8 mg-2 mg sl film 45 15 Rosa Garcia BOX MACHINE OPERATOR, PHD 12/21/2017 12/26/2017 zolpidem tartrate 10 mg tablet 15 15 Doreen Tapia) 12/21/2017 12/26/2017 lyrica 100 mg capsule 90 30 Doreen Abraahm) 12/26/2017 12/26/2017 suboxone 8 mg-2 mg sl film 24 8 Rosa Garcia BOX MACHINE OPERATOR, PHD 12/18/2017 12/18/2017 suboxone 8 mg-2 mg sl film 24 8 Rosa Garcia NP, PHD 12/11/2017 12/11/2017 suboxone 8 mg-2 mg sl film 24 8 Rosa Garcia NP, PHD 12/04/2017 12/04/2017 suboxone 8 mg-2 mg sl film 24 8 Rosa Garcia BOX MACHINE OPERATOR, PHD 11/07/2017 11/10/2017 zolpidem tartrate 10 mg tablet 30 30 Doreen Tapia () 11/07/2017 11/10/2017 lyrica 100 mg capsule 90 30 Doreen Abraham () 10/23/2017 10/23/2017 suboxone 8 mg-2 mg sl film 90 30 Rosa Garcia BOX MACHINE OPERATOR, PHD 09/25/2017 09/25/2017 suboxone 8 mg-2 mg sl film 90 30 Rosa Garcia BOX MACHINE OPERATOR, PHD Patient Name: Traci Cobb Date: 1970 Address: [address] [place] [address] Sex: Female Rx Written Rx Dispensed Drug Quantity Days Supply Prescriber Name 09/22/2017 10/13/2017 lyrica 100 mg capsule 60 20 Mariano Hill MD 10/11/2017 10/11/2017 oxycodone hcl 10 mg tablet 180 30 Cijo, Geocia A 09/06/2017 10/02/2017 zolpidem tartrate 5 mg tablet 30 30 Mariano Hill MD 09/24/2017 09/25/2017 oxycodone-acetaminophen 5-325 mg tab 60 10 Mariano Hill MD 09/22/2017 09/24/2017 lyrica 100 mg capsule 60 20 Mariano Hill MD 09/22/2017 09/22/2017 methadone hcl 10 mg tablet 30 5 Mariano Hill MD 09/06/2017 09/06/2017 zolpidem tartrate 5 mg tablet 30 30 Mariano Hill MD Objective: wnwd , resting comfortably in bed , NAD CBC, BMP 08/29/18 05:30 08/29/18 05:30 Vital Signs - 24 hr 08/28/18 08/28/18 08/28/18 16:00 16:15 17:00 Temperature 99 F 98.0 F Pulse Rate 78 20 L Respiratory 20 20 91 H Rate Blood Pressure 111/68 116/69 O2 Sat by Pulse 98 Oximetry (%) 08/28/18 08/28/18 08/28/18 17:35 20:11 22:00 Temperature 99 F Pulse Rate 88 94 H Respiratory 20 20 20 Rate Blood Pressure 128/77 158/90 O2 Sat by Pulse 98 Oximetry (%) 08/29/18 08/29/18 08/29/18 01:02 04:00 05:00 Temperature 98.1 F 97.6 F Pulse Rate 74 74 Respiratory 20 20 20 Rate Blood Pressure 126/79 111/58 L O2 Sat by Pulse 97 Oximetry (%) 08/29/18 08/29/18 10:00 14:00 Temperature 98 F 98.4 F Pulse Rate 76 8 L Respiratory 20 20 Rate Blood Pressure 121/62 153/99 O2 Sat by Pulse 98 Oximetry (%) utox + MDMA , THC, BAR , neg for opiates . Assessment: Opioid dependence in remission Plan: restart Suboxone . Pt agreeabl;e to return to [facility] upon d/c Psychiatry eval for self-reported anxiety ."
[2018-08-29] MEDS: ESCITALOPRAM OXALATE 10 MG TABLET (FP) PO SCH (10:09)
[2018-08-29] MEDS: LACTOBACILLUS ACIDOPHILUS 1 TABLET PO SCH ×2 (10:09→22:34)
[2018-08-29] MEDS: amLODIPine BESYLATE 10 MG TABLET (FP) PO SCH (10:10)
[2018-08-29] MEDS: APIXABAN 2.5 MG TABLET PO SCH ×2 (10:10→22:34)
[2018-08-29] MEDS: LABETALOL HCL 200 MG TABLET (FP) PO SCH ×2 (10:10→22:33)
--- NOTE | 2018-08-29 13:25 | DS ---
Physical Exam: SUBJECTIVE: Patient seen and examined OBJECTIVE: Vital Signs Period Temp Pulse Resp BP Sys/Puente Pulse Ox Last 24 Hr 97.6 F-99.0 F 20-110 17-91 109-158/58-90 97-98 PHYSICAL EXAM GENERAL: The patient is awake, alert, and fully oriented, in no acute distress. HEAD: Normal with no signs of trauma. EYES: PERRL, extraocular movements intact, sclera anicteric, conjunctiva clear. ENT: Ears normal, nares patent, oropharynx clear without exudates, moist mucous membranes. NECK: Trachea midline, full range of motion, supple. LUNGS: Breath sounds equal, clear to auscultation bilaterally, no wheezes, no crackles, no accessory muscle use. HEART: Regular rate and rhythm, S1, S2 without murmur, rub or gallop. ABDOMEN: Soft, nontender, nondistended, normoactive bowel sounds, no guarding, no rebound, no hepatosplenomegaly, no masses. EXTREMITIES: 2+ pulses, warm, well-perfused, no edema. NEUROLOGICAL: Cranial nerves II through XII grossly intact. Normal speech, gait not observed. PSYCH: Normal mood, normal affect. SKIN: Warm, dry, normal turgor, no rashes or lesions noted. LABS Laboratory Results - last 24 hr 08/28/18 08/28/18 08/28/18 18:30 20:30 21:54 WBC RBC Hgb Hct MCV MCH MCHC RDW Plt Count MPV Sodium 143 Potassium 3.3 L Chloride 109 H Carbon Dioxide 23 Anion Gap 12 BUN 23 H Creatinine 1.3 Creat Clearance w eGFR 44.10 POC Glucometer 200 Random Glucose 173 H Calcium 8.6 Phosphorus 2.9 Magnesium 2.4 Opiates Screen Negative Methadone Screen Negative Barbiturate Screen Positive A* Phencyclidine Screen Negative Ur Amphetamines Screen Negative MDMA (Ecstasy) Screen Positive A* Benzodiazepines Screen Negative Cocaine Screen Negative U Marijuana (THC) Screen Positive A* 08/29/18 08/29/18 08/29/18 05:30 05:30 05:45 WBC 9.1 RBC 4.01 Hgb 12.1 Hct 35.5 MCV 88.5 MCH 30.1 MCHC 34.1 RDW 13.8 Plt Count 224 MPV 8.9 Sodium 144 Potassium 3.4 L Chloride 111 H Carbon Dioxide 26 Anion Gap 7 L BUN 25 H Creatinine 1.1 Creat Clearance w eGFR 53.47 POC Glucometer 134 Random Glucose 134 H Calcium 8.6 Phosphorus Magnesium Opiates Screen Methadone Screen Barbiturate Screen Phencyclidine Screen Ur Amphetamines Screen MDMA (Ecstasy) Screen Benzodiazepines Screen Cocaine Screen U Marijuana (THC) Screen 08/29/18 11:56 WBC RBC Hgb Hct MCV MCH MCHC RDW Plt Count MPV Sodium Potassium Chloride Carbon Dioxide Anion Gap BUN Creatinine Creat Clearance w eGFR POC Glucometer 153 Random Glucose Calcium Phosphorus Magnesium Opiates Screen Methadone Screen Barbiturate Screen Phencyclidine Screen Ur Amphetamines Screen MDMA (Ecstasy) Screen Benzodiazepines Screen Cocaine Screen U Marijuana (THC) Screen Imaging: CXR: no infilatrates, no cardiomegaly, no acute pulmonary processes head CT; negative for any acute intracranial pathology Ab/pelvis CT: no evidence of any pancreatitis HOSPITAL COURSE: Date of Admission:08/28/18 48 y/o female with PMH of HTN, DM, substance abuse came into the hospital with complaints of nausea/vomiting/headache. ON arrival, her BP was elevated to 203/ 110. IN addition her BNP was elevated at over 2000 and her lipase was elevated at 456. Utox was positive for barbituates, marijuana and MDMA. She was given her normal BP meds and her BP went down to 140/73- she was also given a dose of IV lasix given that there was concern for possible CHF given the elevated BNP though her lung exam was normal and she was not volume overloaded. SHe was restarted back on her BP meds and was no longer having any symtoms, she was counseled on refraining from drug use. Date of Discharge: 08/29/18 Minutes to complete discharge: 39 Discharge Summary Reason For Visit: ACUTE ON CHRONIC CONGESTIVE HEART FAILURE Current Active Problems CHF exacerbation (Acute) Condition: Stable - Instructions Diet, Activity, Other Instructions: You came to the hospital with complaints of nausea/vomiting, in addition your blood pressure was found to be elevated. Please resume all of your home medications and monitor your blood pressure at home Please follow up with your primary care physician within one week We encourage you to refrain from drug use. *if you begin to experience any chest pains, shortness of breath, vision changes , nausea/vomiting please return to the emergency room immediately. Referrals: Doreen Kahn MD [Primary Care Provider] - 1 Week Disposition: HOME - Home Medications Comprehensive Discharge Medication List: Ambulatory Orders Pregabalin [Lyrica] 100 mg PO TID 10/02/16 traZODone HCL [Desyrel -] 100 mg PO HS 02/13/18 Quetiapine Fumarate [Seroquel -] 50 mg PO HS #30 tablet 05/17/18 Escitalopram Oxalate [Lexapro -] 5 mg PO DAILY 08/06/18 Amlodipine Besylate 10 mg PO DAILY #30 tablet 08/18/18 Apixaban [Eliquis] 2.5 mg PO BID #60 tablet 08/18/18 Bacitracin - [Bacitracin Topical Ointment -] 1 applic TP DAILY #1 tube 08/18/18 Labetalol HCl [Normodyne -] 400 mg PO BID #120 tablet 08/18/18 Prednisone See Taper PO DAILY #12 tablet 08/18/18 Sitagliptin Phosphate [Januvia] 100 mg PO DAILY #30 tablet 08/18/18 Problem List - Problems (1) CHF exacerbation Code(s): I50.9 - HEART FAILURE, UNSPECIFIED Qualifiers: Heart failure type: unspecified Qualified Code(s): I50.9 - Heart failure, unspecified (2) Diarrhea Code(s): R19.7 - DIARRHEA, UNSPECIFIED Qualifiers: Diarrhea type: unspecified type Qualified Code(s): R19.7 - Diarrhea, unspecified This patient is new to me today: No Emergency Visit: Yes ED Registration Date: 08/28/18 Care time: The patient presented to the Emergency Department on the above date and was hospitalized for further evaluation of their emergent condition. Critical Care patient: No - Discharge Referral Referred to [facility] No
[2018-08-29] MEDS: BUPRENORPHINE/NALOXONE 2 MG/0.5 MG FILM PACKET SL SCH (14:43)
--- NOTE | 2018-08-29 19:59 | PN ---
Teaching Attending Note Name of Resident: Bea Avery ATTENDING PHYSICIAN STATEMENT I saw and evaluated the patient. I reviewed the resident's note and discussed the case with the resident. I agree with the resident's findings and plan as documented. SUBJECTIVE: Patient is feeling better, with no acute distress. OBJECTIVE: Vital Signs Temperature 98.4 F 08/29/18 17:00 Pulse Rate 77 08/29/18 17:00 Respiratory Rate 20 08/29/18 17:00 Blood Pressure 102/62 08/29/18 17:00 O2 Sat by Pulse Oximetry (%) 98 08/29/18 10:00 GENERAL: The patient is awake, alert, and fully oriented, in no acute distress. EYES:PEERLA; EOMI; no scleral icterus. NECK: no JVD, no lymphadenopathy. LUNGS: CTA B/L; no rales, rhonchi or wheezing. HEART: Regular rate and rhythm, S1, S2 without murmur, rub or gallop. ABDOMEN: soft; slight tenderness , +BS in all 4 quadrants EXTREMITIES: 2+ pulses, warm, well-perfused, no edema. NEUROLOGICAL: Cranial nerves II through XII grossly intact. Normal speech, gait not observed. PSYCH: Normal mood, normal affect. SKIN: Warm, dry, normal turgor, no rashes or lesions noted CBCD WBC 9.1 K/mm3 (4.0-10.0) 08/29/18 05:30 RBC 4.01 M/mm3 (3.60-5.2) 08/29/18 05:30 Hgb 12.1 GM/dL (10.7-15.3) 08/29/18 05:30 Hct 35.5 % (32.4-45.2) 08/29/18 05:30 MCV 88.5 fl (80-96) 08/29/18 05:30 MCHC 34.1 g/dl (32.0-36.0) 08/29/18 05:30 RDW 13.8 % (11.6-15.6) 08/29/18 05:30 Plt Count 224 K/MM3 (134-434) 08/29/18 05:30 MPV 8.9 fl (7.5-11.1) 08/29/18 05:30 CMP Sodium 144 mmol/L (136-145) 08/29/18 05:30 Potassium 3.4 mmol/L (3.5-5.1) L 08/29/18 05:30 Chloride 111 mmol/L (98-107) H 08/29/18 05:30 Carbon Dioxide 26 mmol/L (21-32) 08/29/18 05:30 Anion Gap 7 MMOL/L (8-16) L 08/29/18 05:30 BUN 25 mg/dL (7-18) H 08/29/18 05:30 Creatinine 1.1 mg/dL (0.55-1.3) 08/29/18 05:30 Creat Clearance w eGFR 53.47 (>60) 08/29/18 05:30 Random Glucose 134 mg/dL (74-106) H 08/29/18 05:30 Calcium 8.6 mg/dL (8.5-10.1) 08/29/18 05:30 Total Bilirubin 0.8 mg/dL (0.2-1) 08/28/18 05:20 AST 9 U/L (15-37) L 08/28/18 05:20 ALT 24 U/L (13-61) 08/28/18 05:20 Alkaline Phosphatase 66 U/L (45-117) 08/28/18 05:20 Total Protein 6.9 g/dl (6.4-8.2) 08/28/18 05:20 Albumin 3.7 g/dl (3.4-5.0) 08/28/18 05:20 CARDIAC ENZYMES Creatine Kinase 41 U/L (26-192) 08/27/18 19:39 Troponin I < 0.02 ng/ml (0.00-0.05) 08/27/18 19:39 Current Medications Generic Name Dose Route Start Last Admin Trade Name Freq PRN Reason Stop Dose Admin Amlodipine Besylate 10 mg 08/28/18 10:00 08/29/18 10:10 Norvasc - PO 10 mg DAILY NI Administration Apixaban 2.5 mg 08/28/18 10:00 08/29/18 10:10 Eliquis - PO 2.5 mg BID NI Administration Buprenorphine/Naloxone 1 each 08/29/18 10:15 08/29/18 14:43 Suboxone 2mg/0.5mg Sl Film - SL 1 each DAILY NI Administration Escitalopram Oxalate 5 mg 08/28/18 10:00 08/29/18 10:09 Lexapro - PO 5 mg DAILY NI Administration Insulin Aspart 1 vial 08/28/18 07:00 08/29/18 17:56 Novolog Vial Sliding Scale - SQ 2 unit ACHS NI Administration Protocol Labetalol HCl 400 mg 08/28/18 10:00 08/29/18 10:10 Normodyne - PO 400 mg BID NI Administration Lactobacillus Acidophilus 1 tab 08/28/18 22:00 08/29/18 10:09 Bacid - PO 1 tab BID NI Administration Pregabalin 100 mg 08/28/18 06:00 08/29/18 14:47 Lyrica - PO 100 mg TID NI Administration Quetiapine Fumarate 50 mg 08/28/18 22:00 08/28/18 21:53 Seroquel - PO 50 mg HS NI Administration Trimethobenzamide HCl 200 mg 08/28/18 18:52 Tigan Injection - IM Q12H PRN NAUSEA Home Medications Medication Instructions Recorded Pregabalin [Lyrica] 100 mg PO TID 10/02/16 traZODone HCL [Desyrel -] 100 mg PO HS 02/13/18 Quetiapine Fumarate [Seroquel -] 50 mg PO HS #30 tablet 05/17/18 Escitalopram Oxalate [Lexapro -] 5 mg PO DAILY 08/06/18 Amlodipine Besylate 10 mg PO DAILY #30 tablet 08/18/18 Apixaban [Eliquis] 2.5 mg PO BID #60 tablet 08/18/18 Bacitracin - [Bacitracin Topical 1 applic TP DAILY #1 tube 08/18/18 Ointment -] Labetalol HCl [Normodyne -] 400 mg PO BID #120 tablet 08/18/18 Prednisone See Taper PO DAILY #12 tablet 08/18/18 Sitagliptin Phosphate [Januvia] 100 mg PO DAILY #30 tablet 08/18/18 Urine Test Results Urine Color Ltyellow 08/27/18 20:42 Urine Appearance Clear 08/27/18 20:42 Urine pH 7.0 (5.0-8.0) 08/27/18 20:42 Ur Specific [place] 1.013 (1.010-1.035) 08/27/18 20:42 Urine Protein 1+ (NEGATIVE) H 08/27/18 20:42 Urine Glucose (UA) 1+ (NEGATIVE) H 08/27/18 20:42 Urine Ketones Negative (NEGATIVE) 08/27/18 20:42 Urine Blood Negative (NEGATIVE) 08/27/18 20:42 Urine Nitrite Negative (NEGATIVE) 08/27/18 20:42 Urine Bilirubin Negative (<2.0 mg/dL) 08/27/18 20:42 Ur Leukocyte Esterase Negative (NEGATIVE) 08/27/18 20:42 Ur Epithelial Cells Rare /HPF (FEW) 08/27/18 20:42 Laboratory Tests 08/28/18 18:30 Barbiturate Screen Positive A* MDMA (Ecstasy) Screen Positive A* U Marijuana (THC) Screen Positive A* ASSESSMENT AND PLAN: # Acute intractable Nausea , patient is better, ill discharge her home. # electrolyte imbalance repleted # Hx of Polysubstance abuse ,urine toxicology positive for Marijuana and ectasy. consulted dr. Concepción valentine and appreciated. patient was on Suboxone before stopped using the medication , possible is having withdrawel symptoms. discharge patient home. Current Medications Generic Name Dose Route Start Last Admin Trade Name Shavon PRN Reason Stop Dose Admin Amlodipine Besylate 10 mg 08/28/18 10:00 08/29/18 10:10 Norvasc - PO 10 mg DAILY NI Administration Apixaban 2.5 mg 08/28/18 10:00 08/29/18 10:10 Eliquis - PO 2.5 mg BID NI Administration Buprenorphine/Naloxone 1 each 08/29/18 10:15 08/29/18 14:43 Suboxone 2mg/0.5mg Sl Film - SL 1 each DAILY NI Administration Escitalopram Oxalate 5 mg 08/28/18 10:00 08/29/18 10:09 Lexapro - PO 5 mg DAILY NI Administration Insulin Aspart 1 vial 08/28/18 07:00 08/29/18 17:56 Novolog Vial Sliding Scale - SQ 2 unit ACHS NI Administration Protocol Labetalol HCl 400 mg 08/28/18 10:00 08/29/18 10:10 Normodyne - PO 400 mg BID NI Administration Lactobacillus Acidophilus 1 tab 08/28/18 22:00 08/29/18 10:09 Bacid - PO 1 tab BID NI Administration Pregabalin 100 mg 08/28/18 06:00 08/29/18 14:47 Lyrica - PO 100 mg TID NI Administration Quetiapine Fumarate 50 mg 08/28/18 22:00 08/28/18 21:53 Seroquel - PO 50 mg HS NI Administration Trimethobenzamide HCl 200 mg 08/28/18 18:52 Tigan Injection - IM Q12H PRN NAUSEA Home Medications Medication Instructions Recorded Pregabalin [Lyrica] 100 mg PO TID 10/02/16 traZODone HCL [Desyrel -] 100 mg PO HS 02/13/18 Quetiapine Fumarate [Seroquel -] 50 mg PO HS #30 tablet 05/17/18 Escitalopram Oxalate [Lexapro -] 5 mg PO DAILY 08/06/18 Amlodipine Besylate 10 mg PO DAILY #30 tablet 08/18/18 Apixaban [Eliquis] 2.5 mg PO BID #60 tablet 08/18/18 Bacitracin - [Bacitracin Topical 1 applic TP DAILY #1 tube 08/18/18 Ointment -] Labetalol HCl [Normodyne -] 400 mg PO BID #120 tablet 08/18/18 Prednisone See Taper PO DAILY #12 tablet 08/18/18 Sitagliptin Phosphate [Januvia] 100 mg PO DAILY #30 tablet 08/18/18
[2018-08-29] MEDS: QUEtiapine FUMARATE 50 MG TABLET PO SCH (22:33)
[2018-08-30] MEDS ORDERED: POTASSIUM CHLORIDE TABS 20 MEQ TABLET.ER (FP) PO ONE (06:39)
[2018-08-30] MEDS: PREGABALIN 100 MG CAPSULE PO SCH (07:16)
[2018-08-30] MEDS: INSULIN SLIDING SCALE (NOVOLOG) 1 VIAL SQ SCH (07:18)
[2018-08-30 08:36] LABS: ANION GAP 8 MMOL/L (8-16); BLOOD UREA NITROGEN 31 mg/dL (7-18); CALCIUM 8.9 mg/dL (8.5-10.1); CHLORIDE 106 mmol/L (98-107); CO2 23 mmol/L (21-32); CREATININE 1.2 mg/dL (0.55-1.3); GLUCOSE,RANDOM 139 mg/dL (74-106); MAGNESIUM 1.9 mg/dL (1.8-2.4); POTASSIUM 3.7 mmol/L (3.5-5.1); SODIUM 138 mmol/L (136-145)
[2018-08-30 09:36] VITALS: BP 107/69; PULSE 76; TEMP 98
[2018-08-30] MEDS: amLODIPine BESYLATE 10 MG TABLET (FP) PO SCH (09:37)
[2018-08-30] MEDS: LABETALOL HCL 200 MG TABLET (FP) PO SCH (09:37)
[2018-08-30] MEDS: ESCITALOPRAM OXALATE 10 MG TABLET (FP) PO SCH (09:37)
[2018-08-30] MEDS: APIXABAN 2.5 MG TABLET PO SCH (09:37)
[2018-08-30] MEDS: LACTOBACILLUS ACIDOPHILUS 1 TABLET PO SCH (09:37)
[2018-08-30] MEDS: BUPRENORPHINE/NALOXONE 2 MG/0.5 MG FILM PACKET SL SCH (09:38)
--- NOTE | 2018-09-01 12:09 | HOSP ---
Physical Examination Vital Signs: Vital Signs Temperature 98 F 08/30/18 09:36 Pulse Rate 76 08/30/18 09:36 Respiratory Rate 20 08/30/18 09:56 Blood Pressure 107/69 08/30/18 09:36 O2 Sat by Pulse Oximetry (%) 98 08/30/18 09:56 Labs: CBC, BMP 08/29/18 05:30 08/30/18 07:50 Hospitalist Encounter Assessment: patient found to be c diff positive on culture- contacted patient and sent vancomycin 125mg q6H for 10 days over to pharmacy Visit type - Emergency Visit Emergency Visit: Yes ED Registration Date: 08/28/18 Care time: The patient presented to the Emergency Department on the above date and was hospitalized for further evaluation of their emergent condition. - New Patient This patient is new to me today: No - Critical Care Critical Care patient: No
== END 2018-08-30 10:25 | disposition home or self-care (01) ==
LOC: JER 19:15 → JERBED 08-28 00:13 → J4W 08-28 15:55
PROVIDERS: ADMIT Internal Medicine; ATTEND Internal Medicine
PROC: 3E033NZ Introduction of Analgesics, Hypnotics, Sedatives into Peripheral Vein, Percutaneous Approach (ICD-10-PCS; principal; 2018-08-28)
PROC: 3E0337Z Introduction of Electrolytic and Water Balance Substance into Peripheral Vein, Percutaneous Approach (ICD-10-PCS; 2018-08-28)
PROC: 3E033GC Introduction of Other Therapeutic Substance into Peripheral Vein, Percutaneous Approach (ICD-10-PCS; 2018-08-28)
DX: I16.1 Hypertensive emergency (principal); I50.9 Heart failure, unspecified; I11.0 Hypertensive heart disease with heart failure; R51 Headache; R19.7 Diarrhea, unspecified; E11.9 Type 2 diabetes mellitus without complications; I82.509 Chronic embolism and thrombosis of unspecified deep veins of unspecified lower extremity; L97.529 Non-pressure chronic ulcer of other part of left foot with unspecified severity; F11.10 Opioid abuse, uncomplicated; R74.8 Abnormal levels of other serum enzymes; F32.9 Major depressive disorder, single episode, unspecified; F41.9 Anxiety disorder, unspecified; R79.89 Other specified abnormal findings of blood chemistry; E87.8 Other disorders of electrolyte and fluid balance, not elsewhere classified; Z86.711 Personal history of pulmonary embolism; Z79.01 Long term (current) use of anticoagulants; Z87.442 Personal history of urinary calculi; Z91.14 Patient's other noncompliance with medication regimen; Z95.828 Presence of other vascular implants and grafts; A04.72 Enterocolitis due to Clostridium difficile, not specified as recurrent
CPT/HCPCS: 36415; 70450-TC; 71045-TC-FY; 71250-TC; 74176-TC; 80048; 80053; 80307; 81003; 81015; 82009; 82550; 82962; 83690; 83735; 83880; 84100; 84484; 84703; 85025; 85027; 85610; 87086; 87493; 87633; 87804; 93005; 93010; 96361; 96374; 96375; 99285-25; G0378; J0131; J7030

== ENCOUNTER 2018-09-15 14:35 | Inpatient (IN) | payer OTHER ==
[2018-09-15 14:49] VITALS: BMI 41.3
--- NOTE | 2018-09-15 14:53 | PDOC ---
Attending Attestation - Resident Resident Name: Gorge Schultz - ED Attending Attestation I have performed the following: I have examined & evaluated the patient, The case was reviewed & discussed with the resident, I agree w/resident's findings & plan, Exceptions are as noted - HPI HPI: 09/15/18 14:53 48y F hx of htn, dm, depression, anxiety, PE/DVT sp IVC filter, substance abuse , chronic lower extremity ulcers presents with somnolence. Per EMS, pt was using heroin, was nodding off, an when she fell off the chair, the pts family called EMS. Pt endorses using heroin, had used it in the past, but hadn't in several months. pt notes some idarrhea (was recently dx with cdiff), but otherwise no fever/chills, cp, cough, abd pain, back pain, headache. denies using any other recreational meds including benzos. Per EMS, the pt was bluish upon their arrival and non responsive, was given 1mg IH of narcan without signifiant response. There was a problem with IV access however EMS was finally able to place a IO she was given 2 mg IO with some moderate improvement. - Physicial Exam PE: 09/15/18 15:13 General: no acute distress, somnolent, but easily arousable, obese HEENT: atraumatic, pupils 2mm and symmetrically responsive, EOMI Pulm: cta b/l card: rrr, no mrg abd: soft nontender neuro: moving all 4 extremities spontaneously and symmetrically - Medical Decision Making 09/15/18 15:14 suspect heroin overdose pt respriing sponatneously here will ck labs cardic monitor placed will obtain ekg will continue to monitor Records from the patient's recent admission were reviewed, admission for headache and nausea and vomiting and was found to be hypertensive that improved with her normal blood pressure medications. The patient also had a stool sample was positive for C. difficile and she was started vancomycin. 09/15/18 16:42 The patient's lab work was reviewed , it is notable for leukocytosis to - I suspect this may be due to the patient's C. difficile for which she is currently being treated on outpatient recommend. Patient does have acute renal failure with creatinine 3.1 her most recent creatinine in August 30 was 1.2. We'll admit the patient for further management of acute renal failure and opiate overdose 09/15/18 17:12 The patient's is persistently, hypoxic down to the 80s she will easily aroused with verbal stimulus and her saturation improves after taking couple of deep breaths. Patient was given several boluses of 0.04mg narcan with improvement of her RR will admit for further management CRITICAL CARE DOCUMENTATION: I spent 40 minutes of Critical Care time, excluding separately billable procedures, involving high complexity decision making to assess, manipulate and support vital system function(s) to treat single or multiple vital organ system failure and/or to prevent further life threatening deterioration of the patient' s condition. Heart Score/ECG Review - ECG Impressions Comment:: 09/15/18 16:43 Twelve-lead EKG was performed and reviewed by me. There is normal sinus rhythm with a normal rate. Rate of 93 axis is normal T wave inversion in lead 3
--- NOTE | 2018-09-15 14:54 | PDOC ---
History of Present Illness - General Chief Complaint: Overdose Stated Complaint: OVERDOSE Time Seen by Provider: 09/15/18 14:49 - History of Present Illness Initial Comments: 48 year old female with PMH of HTN, polysubstance abuse, NIDDM, DVT (s/p IVC filter placement), anxiety, depression, kidney stones, and recent admission ( hypertensive urgency with concern for fluid overload and new diarrhea found to be C. Diff) presenting with depressed respiratory function and consciousness after using heroin. States that she had used a bag of heroin at 11:00 AM (her regular amount) and began to feel sleepy. Her family noticed that she started to nod off at approximately 13:00 and then had slowed breathing. EMS arrived and gave 2mg of Narcan intranasal and then two more IO after many failed IV attempts. She became much more alert and her respiratory drive improved. She is on PO Vancomycin for the C. Diff and denies any other issues but her family states that she has "kidney issues" recently. Deneis fevers, chills,nausea, vomiting, diarrhea, constipation or other symptoms. She was clean for a few months prior to this point. 09/15/18 15:32 Past History - Past Medical History Allergies/Adverse Reactions: Allergies Allergy/AdvReac Type Severity Reaction Status Date / Time ondansetron [From Zofran] AdvReac Severe Verified 09/15/18 14:41 Home Medications: Ambulatory Orders Pregabalin [Lyrica] 100 mg PO TID 10/02/16 traZODone HCL [Desyrel -] 100 mg PO HS 02/13/18 Quetiapine Fumarate [Seroquel -] 50 mg PO HS #30 tablet 05/17/18 Escitalopram Oxalate [Lexapro -] 5 mg PO DAILY 08/06/18 Amlodipine Besylate 10 mg PO DAILY #30 tablet 08/18/18 Apixaban [Eliquis] 2.5 mg PO BID #60 tablet 08/18/18 Bacitracin - [Bacitracin Topical Ointment -] 1 applic TP DAILY #1 tube 08/18/18 Labetalol HCl [Normodyne -] 400 mg PO BID #120 tablet 08/18/18 Prednisone See Taper PO DAILY #12 tablet 08/18/18 Sitagliptin Phosphate [Januvia] 100 mg PO DAILY #30 tablet 02/03/19 Vancomycin HCl 125 mg PO Q6H 10 Days #40 capsule 09/01/18 Anemia: No Asthma: No Cancer: No Cardiac Disorders: No (chf) CVA: No COPD: No CHF: No DVT: Yes Dementia: No Diabetes: Yes (type 2) Dialysis: No ([facility] 2016.) GI Disorders: Yes (diarrhea) Disorders: Yes (bladder prolapse 2011) HTN: Yes Hypercholesterolemia: No Kidney Stones: Yes Liver Disease: No Psychiatric Problems: Yes (anxiety depression) Seizures: No Thyroid Disease: No - Surgical History Abdominal Surgery: Yes Appendectomy: No Cardiac Surgery: No Cholecystectomy: Yes (2003) Lung Surgery: No Neurologic Surgery: No Orthopedic Surgery: No - Immunization History Td Vaccination: Yes Immunization Up to Date: Yes - Suicide/Smoking/Psychosocial Hx Smoking Status: No Smoking History: Unknown if ever smoked Have you smoked in the past 12 months: No Number of Cigarettes Smoked Daily: 5 Cigars Per Day: 0 Information on smoking cessation initiated: No 'Breaking Loose' booklet given: 03/02/17 Hx Alcohol Use: No Drug/Substance Use Hx: Yes Substance Use Type: Cocaine, Marijuana, Opiates Hx Substance Use Treatment: Yes (suboxone maintenance 16mg daily /[facility] Focus) Review of Systems - Review of Systems Constitutional: No: Chills, Diaphoresis, Fever, Loss of Appetite HEENTM: No: Blurred Vision, Tearing Respiratory: No: Cough, Orthopnea, Shortness of Breath, Wheezing Cardiac (ROS): No: Edema, Irregular Heart Rate, Lightheadedness, Palpitations ABD/GI: Yes: Diarrhea. No: Constipated, Nausea, Vomiting, Abdominal cramping : No: Burning, Dysuria, Discharge Musculoskeletal: No: Back Pain, Joint Pain, Joint Swelling Integumentary: Yes: Lesions. No: Bruising, Lumps, Pallor Neurological: No: Headache, Numbness, Paresthesia Psychiatric: Yes: Anxiety, Depression Hematologic/Lymphatic: No: Anemia, Blood Clots, Easy Bleeding *Physical Exam - Vital Signs Last Vital Signs Temp Pulse Resp BP Pulse Ox 97.9 F 104 H 18 95/69 96 09/15/18 14:41 09/15/18 14:41 09/15/18 14:41 09/15/18 14:41 09/15/18 14:41 - Physical Exam General Appearance: Yes: Nourished, Appropriately Dressed. No: Apparent Distress HEENT: positive: EOMI, KENNA, Normal ENT Inspection, Normal Voice Neck: positive: Trachea midline, Normal Thyroid, Supple. negative: Tender, Rigid Respiratory/Chest: positive: Lungs Clear, Normal Breath Sounds. negative: Chest Tender, Respiratory Distress, Accessory Muscle Use Cardiovascular: positive: Regular Rhythm, Regular Rate Gastrointestinal/Abdominal: positive: Normal Bowel Sounds, Tender (mild left lwoer quadrant tenderness), Flat, Soft Lymphatic: negative: Adenopathy, Tenderness Musculoskeletal: positive: Normal Inspection. negative: Decreased Range of Motion Extremity: positive: Normal Capillary Refill, Normal Inspection, Normal Range of Motion Integumentary: positive: Normal Color, Dry, Warm Neurologic: positive: Fully Oriented, Alert, Normal Mood/Affect, Normal Response , Motor Strength 5/5 Moderate Sedation - Procedure Monitoring Vital Signs: Procedure Monitoring Vital Signs Temperature 97.9 F 09/15/18 14:41 Pulse Rate 104 H 09/15/18 14:41 Respiratory Rate 18 09/15/18 14:41 Blood Pressure 95/69 09/15/18 14:41 O2 Sat by Pulse Oximetry (%) 96 09/15/18 14:41 ED Treatment Course - LABORATORY CBC & Chemistry Diagram: 09/15/18 14:56 09/15/18 14:56 Medical Decision Making - Medical Decision Making 48 year old female currently being treated for c diff on PO vancomycin presenting with heroin overdose. She states that she hasn't used heroin only once before because she usually uses oxycodone. However, she used one bag of heroin early today and became apnic. She received 4 mg of narcan by EMS and was doing well in our ED but occasionally had desats to the high 80s. She received another dose of 0.08 Narcan and did well. Her labs returned with WBC of 19 and creatinine of 3.1 (acute value) so concern is for sever c diff even though her abdominal exam only yielded mild tenderness. Ct scan pending and IV Flagyl given. Admission. 09/15/18 17:35 *DC/Admit/Observation/Transfer - Referrals Referrals: Doreen Kahn MD [Primary Care Provider] - - Patient Instructions - Post Discharge Activity
[2018-09-15] MEDS ORDERED: SODIUM CHLORIDE 0.9% 500 ML INFUS.BAG IV ONE (14:55)
[2018-09-15] MEDS ORDERED: METOCLOPRAMIDE HCL INJECTION 10 MG/2 ML VIAL IVPUSH ONE (15:10)
[2018-09-15 15:12] LABS: BASO % 1.5 % (0-2.0); EOS % 0.1 % (0-4.5); HEMOGLOBIN 13.2 GM/dL (10.7-15.3); LYMPH % 2.4 % (8-40); MCH 29.9 pg (25.7-33.7); MEAN CELL VOLUME 90.6 fl (80-96); MEAN PLT VOLUME 8.7 fl (7.5-11.1); MONO % 4.1 % (3.8-10.2); NEUT % 91.9 % (42.8-82.8); PLATELET COUNT 292 K/MM3 (134-434); RBC 4.42 M/mm3 (3.60-5.2); RDW 14.5 % (11.6-15.6); WHITE BLOOD COUNT 19.7 K/mm3 (4.0-10.0)
[2018-09-15 15:33] LABS: ALBUMIN 4.3 g/dl (3.4-5.0); ALK PHOS 101 U/L (45-117); ANION GAP 16 MMOL/L (8-16); BILIRUBIN,TOTAL 0.4 mg/dL (0.2-1); BLOOD UREA NITROGEN 37 mg/dL (7-18); CALCIUM 9.3 mg/dL (8.5-10.1); CHLORIDE 103 mmol/L (98-107); CO2 22 mmol/L (21-32); CREATININE 3.1 mg/dL (0.55-1.3); GLUCOSE,RANDOM 202 mg/dL (74-106); POTASSIUM 4.1 mmol/L (3.5-5.1); SGOT/AST 75 U/L (15-37); SGPT/ALT 62 U/L (13-61); SODIUM 142 mmol/L (136-145); TOT PROT 7.9 g/dl (6.4-8.2)
[2018-09-15] MEDS ORDERED: METOCLOPRAMIDE HCL INJECTION 10 MG/2 ML VIAL ONE (15:56)
[2018-09-15 16:26] LABS: ANISOCYTOSIS 0; MACROCYTOSIS 0; PLATELET ESTIMATE NORMAL
[2018-09-15] MEDS ORDERED: NALOXONE HCL 0.4 MG/ML VIAL IVPUSH ONE (17:33)
--- NOTE | 2018-09-15 19:31 | PN ---
Teaching Attending Note Name of Resident: Aleyda Walters ATTENDING PHYSICIAN STATEMENT I saw and evaluated the patient. I reviewed the resident's note and discussed the case with the resident. I agree with the resident's findings and plan as documented. SUBJECTIVE: Patient is a 48 year old woman with PMH of HTN, polysubstance abuse, NIDDM, DVT (s/p IVC filter placement), anxiety, depression, kidney stones, and recent admission (hypertensive urgency with concern for fluid overload and new diarrhea found to be C. Diff) presenting with depressed respiratory function and consciousness after using heroin. States that she had used a bag of heroin at 11:00 AM (her regular amount) and began to feel sleepy. Her family noticed that she started to nod off at approximately 13:00 and then had slowed breathing. EMS arrived and gave 2mg of Narcan intranasal and then two more IO after many failed IV attempts. She became much more alert and her respiratory drive improved. She is on PO Vancomycin for the C. Diff and denies any other issues but her family states that she has "kidney issues" recently. Deneis fevers, chills,nausea, vomiting, diarrhea, constipation or other symptoms. She was clean for a few months prior to this point. OBJECTIVE: Somnolent but arousable Vital Signs Period Temp Pulse Resp BP Sys/Puente Pulse Ox Last 24 Hr 97.9 F 87-104 12-18 87-112/60-83 96-97 HEENT: No Jaundice, eye redness or discharge, PERRLA, EOMI. Normocephalic, atraumatic. External ears are normal and hearing is grossly intact. No nasal discharge. Neck: Supple, nontender. No palpable adenopathy or thyromegaly. No JVD Chest: Good effort. Clear to auscultation and percussion. Heart: Regular. No S3, rub or murmur Abdomen: Distended upper abdomen, soft, and tender; no HSM. No rebound or guarding. Normal bowel sounds. Ext: Peripheral pulses intact. No leg edema. Ulcer on the plantar surface of the left big toe. Skin: Warm and dry. No petechiae, rash or ecchymosis. Neuro: Alert. Oriented x3. CN 2-12 grossly intact. Sensation grossly intact in all four extremities and DTR are symmetric. Psych: Appropriate mood and affect. Poor insight. No suicidal or homicidal ideation. Home Medications Medication Instructions Recorded Pregabalin [Lyrica] 100 mg PO TID 10/02/16 traZODone HCL [Desyrel -] 100 mg PO HS 02/13/18 Quetiapine Fumarate [Seroquel -] 50 mg PO HS #30 tablet 05/17/18 Escitalopram Oxalate [Lexapro -] 5 mg PO DAILY 08/06/18 Amlodipine Besylate 10 mg PO DAILY #30 tablet 08/18/18 Apixaban [Eliquis] 2.5 mg PO BID #60 tablet 08/18/18 Bacitracin - [Bacitracin Topical 1 applic TP DAILY #1 tube 08/18/18 Ointment -] Labetalol HCl [Normodyne -] 400 mg PO BID #120 tablet 08/18/18 Prednisone See Taper PO DAILY #12 tablet 08/18/18 Sitagliptin Phosphate [Januvia] 100 mg PO DAILY #30 tablet 08/18/18 Vancomycin HCl 125 mg PO Q6H 10 Days #40 capsule 09/01/18 ASSESSMENT AND PLAN: 1. Drug overdose and C. Diff colitis - AMS likely due to heroin overdose, but will get a urine toxicology screen to rule out other illicit drugs. Already got multiple doses of Narcan. Get UA nd CXR. Continue nasal canula Oxygen. Continue IV fluids. Admit to telemetry and implement neurochecks, seizure, fall and aspiration precautions. Monitor closely for withdrawal symptoms. Control Chemist patient about abstaining from drugs and refer to detox program upon discharge. Trend LFTs and consult corporate specialist. Abdominal distension may be related to C.diff colitis. Results of CT abdomen/ pelvis pending. Will continue PO vancomycin and contact isolation. Consult ID since she still having diarrhea and her antibiotics course was supposed to end tomorrow. 2. DM For now, we will hold the home diabetes drugs and implement sliding scale insulin regimen. Provide comprehensive diabetes care with patient teaching and counseling about the importance of adherence to prescribed diabetes regimen, euglycemia, eye care and foot care. 3. CKD - Etiology unclear, but she has multiple risk factors. Will consult nephrology and avoid nephrotoxic agents such as NSAIDS, aminoglycosides, contrast dyes and certain Alternative medicine products. 4. Morbid Obesity - Will provide patient all the necessary assistance, counseling and positive reinforcement to facilitate weight loss. Consult over short and damage clerk. 5. Hypertension - When clinically stable, will restart outpatient antihypertensive drugs and revise regimen to ensure smooth [id number] good BP control. Nonpharmacologic measures to control hypertension like weight loss , salt restriction and exercise discussed. 6. DVT prophylaxis - On Eliquis for DVT 7. Advance directives - Full code
--- NOTE | 2018-09-15 20:25 | HP ---
CHIEF COMPLAINT: heroin overdose PCP: Dr. Tapia HISTORY OF PRESENT ILLNESS: 48F w/ pmhx of HTN, NIDDM, polysubstance abuse (heroine, MJ), DVT (s/p IVC filter), peripheral neuropathy presented to the ED after a heroin overdose. States she took snorted 1 bag of heroine in her bathroom, went to rest, and then snorted another bag of heroine after which she started dozing off on her toilet and started to become apneic. She was then found by her mother who called EMS as she was unresponsive. Upon arrival of EMS, pt was given 2mg IH of Narcan, then 2 mg more IO after multiple failed IV attempts. After this, she became more alert and respiratory drive improved. According to pt, chest compressions were initiated until she was revived, although there is no ED documentation per EMS. Pt states she last used heroin about 1.5 years ago, and had been off of it for a while after going through rehab. Her last drug overdose was with Oxycodone about 2.5 years ago where she fell into a coma. Currenltly, she denies f/c, n/v, constipation or urinary symptoms. Admits to reproducible generalized chest pain that started today after her apneic episode. ER course was notable for: (1) WBC 19.7, BUN/Cr 37/3.1, Glu 202 (2) CTAP (prelim read) : Diffuse fatty infiltration liver, indeterminate L adrenal nodule. Unremarkable CTAP, given limitations of nonenhanced CT. (3) Recent Travel: Denies PAST MEDICAL HISTORY: As per HPI PAST SURGICAL HISTORY: lap bernadine prolapsed bladder R ankle repair IVC placement Social History: Smokin cig/week for many years Alcohol: Denies Drugs: Smoke 1 "nickel bag"/day of MJ Family History: Mother- Ovarian cx Allergies ondansetron [From Zofran] Adverse Reaction (Severe, Verified 09/15/18 14:41) prolonged qt interval HOME MEDICATIONS: Home Medications Medication Instructions Recorded Pregabalin [Lyrica] 100 mg PO TID 10/02/16 traZODone HCL [Desyrel -] 100 mg PO HS 02/13/18 Quetiapine Fumarate [Seroquel -] 50 mg PO HS #30 tablet 11/02/18 Escitalopram Oxalate [Lexapro -] 5 mg PO DAILY 08/06/18 Amlodipine Besylate 10 mg PO DAILY #30 tablet 08/18/18 Apixaban [Eliquis] 2.5 mg PO BID #60 tablet 08/18/18 Bacitracin - [Bacitracin Topical 1 applic TP DAILY #1 tube 08/18/18 Ointment -] Labetalol HCl [Normodyne -] 400 mg PO BID #120 tablet 08/18/18 Sitagliptin Phosphate [Januvia] 100 mg PO DAILY #30 tablet 08/18/18 Vancomycin HCl 125 mg PO Q6H 10 Days #40 capsule 09/01/18 REVIEW OF SYSTEMS CONSTITUTIONAL: Absent: fever, chills, diaphoresis, generalized weakness, malaise, loss of appetite, weight change HEENT: Absent: rhinorrhea, nasal congestion, throat pain, throat swelling, difficulty swallowing, mouth swelling, ear pain, eye pain, visual changes CARDIOVASCULAR: +chest pain Absent: chest pain, syncope, palpitations, irregular heart rate, lightheadedness , peripheral edema RESPIRATORY: Absent: cough, shortness of breath, dyspnea with exertion, orthopnea, wheezing, stridor, hemoptysis GASTROINTESTINAL: +abdominal pain, abdominal distension, diarrhea, nausea Absent: vomiting, constipation, melena, hematochezia GENITOURINARY: Absent: dysuria, frequency, urgency, hesitancy, hematuria, flank pain, genital pain MUSCULOSKELETAL: Absent: myalgia, arthralgia, joint swelling, back pain, neck pain SKIN: +chronic on L 1st toe Absent: rash, itching, pallor ENDOCRINE: Absent: unexplained weight gain, unexplained weight loss, heat intolerance, cold intolerance NEUROLOGIC: Absent: headache, focal weakness or paresthesias, dizziness, unsteady gait, seizure, mental status changes, bladder or bowel incontinence PSYCHIATRIC: +depression Absent: anxiety, suicidal or homicidal ideation, hallucinations. PHYSICAL EXAMINATION Vital Signs - 24 hr 09/15/18 09/15/18 09/15/18 14:41 14:49 15:00 Temperature 97.9 F Pulse Rate 104 H Pulse Rate [ 96 H Left Radial] Respiratory 18 13 Rate Blood Pressure 95/69 Blood Pressure 91/62 [Right Arm] O2 Sat by Pulse 96 96 96 Oximetry (%) 09/15/18 09/15/18 09/15/18 15:47 16:00 17:31 Temperature Pulse Rate Pulse Rate [ 95 H 93 H 89 Left Radial] Respiratory 14 15 15 Rate Blood Pressure Blood Pressure 88/75 L 87/61 L 96/60 [Right Arm] O2 Sat by Pulse 96 96 97 Oximetry (%) 09/15/18 19:29 Temperature Pulse Rate Pulse Rate [ 87 Left Radial] Respiratory 12 Rate Blood Pressure Blood Pressure 112/83 [Right Arm] O2 Sat by Pulse 97 Oximetry (%) GENERAL: Awake and alert, although dozing off sometimes. Arousable by voice, oriented x3. No acute distress, mild discomfort. HEENT: AT/NC. EOMI. EULALIO. Moist mucus membranes. NECK: Normal range of motion, supple without lymphadenopathy, JVD, or masses. LUNGS: CTA B/L. No wheezes noted. Symmetric chest rise. No accessory muscle use noted. HEART: RRR. Normal S1, S2. No murmurs noted. ABDOMEN: Soft, +TTP upper b/l abdomen. Mild distension. Normoactive bowel sounds. Tympanic to percussion. MUSCULOSKELETAL: Normal range of motion at all joints. No bony deformities or tenderness. No CVA tenderness. UPPER EXTREMITIES: 2+ pulses, warm, well-perfused. No cyanosis. No clubbing. No peripheral edema. LOWER EXTREMITIES: 2+ pulses, warm, well-perfused. No calf tenderness. No peripheral edema. NEUROLOGICAL: Cranial nerves II-XII intact. Normal speech. Normal gait. PSYCHIATRIC: Cooperative. Good eye contact. Appropriate mood and affect. SKIN: Warm, dry, normal turgor. +L chronic dry crusted ulcer on 1st hallux, non- draining. Laboratory Results - last 24 hr 09/15/18 09/15/18 14:56 14:56 WBC 19.7 H RBC 4.42 Hgb 13.2 Hct 40.0 MCV 90.6 MCH 29.9 MCHC 33.0 RDW 14.5 Plt Count 292 D MPV 8.7 Absolute Neuts (auto) 18.1 H Neutrophils % 91.9 H D Neutrophils % (Manual) 69.0 Band Neutrophils % 24.0 Lymphocytes % 2.4 L D Lymphocytes % (Manual) 1.0 L D Monocytes % 4.1 Monocytes % (Manual) 5 D Eosinophils % 0.1 D Eosinophils % (Manual) 0.0 D Basophils % 1.5 Basophils % (Manual) 0.0 Myelocytes % (Man) 0 D Promyelocytes % (Man) 0 Blast Cells % (Manual) 0 Nucleated RBC % 0 Metamyelocytes 1 D Hypochromia 0 Platelet Estimate Normal Polychromasia 0 Poikilocytosis 0 Anisocytosis 0 Microcytosis 0 Macrocytosis 0 Sodium 142 Potassium 4.1 Chloride 103 Carbon Dioxide 22 Anion Gap 16 BUN 37 H Creatinine 3.1 H Creat Clearance w eGFR 16.18 Random Glucose 202 H Calcium 9.3 Total Bilirubin 0.4 AST 75 H ALT 62 H Alkaline Phosphatase 101 Total Protein 7.9 Albumin 4.3 Beta HCG, Quant 2.8 CONSULT IMAGING: * CTAP ([place]): Diffuse fatty infiltration liver, indeterminate L adrenal nodule. Unremarkable CTAP, given limitations of nonenhanced CT. * CXR: Weak inspiration w/ central crowding and prominent mediastinum (compared to 08/27/18) ASSESSMENT/PLAN: 48F w/ pmhx of HTN, NIDDM, polysubstance abuse (heroine, MJ), DVT (s/p IVC filter), peripheral neuropathy presented to the ED after a heroin overdose. #Heroin overdose -Given Narcan 2mg x2 prior to arrival -4L NC; monitor O2 sat -CXR ordered -neurochecks/seizure, aspiration, fall precautions -Monitor for withdrawal symptoms -Drug cessation counseling #Hx of Cdiff -Isolation precautions -Cont Vanc 125 PO q6H -Consider ID consult since pt still complaining of water/mucus diarrhea despite almost completing full PO Vanc regimen #CKD; BUN/Cr 37/3.1 -Has outpatient follow up appt with nephro #NIDDM -Hold home DM meds -BGMs/ISS ACHS #HTN -Hold home meds given hypotension #Hx of DVT; s/p IVC placement Cont home meds: Eliquis 2.5 BID #Depression/Anxiety Cont home med: Lexapro 5 QD, Seroquel 50 HS #Prophylaxis -Currently on Eliquis 2.5 BID #FEN -NS @ 83 -recheck lytes in AM -Renal diet dispo -admit to tele inpt -full code Visit type - Emergency Visit Emergency Visit: Yes ED Registration Date: 09/15/18 Care time: The patient presented to the Emergency Department on the above date and was hospitalized for further evaluation of their emergent condition. - New Patient This patient is new to me today: Yes Date on this admission: 09/16/18 - Critical Care Critical Care patient: No
[2018-09-15] MEDS ORDERED: VANCOMYCIN 250 MG/5 ML ORAL SOLUTION PO SCH (20:30)
[2018-09-15] MEDS: BACITRACIN 15 GM TUBE TOPICAL OINTMENT TP SCH (20:39)
[2018-09-15] MEDS ORDERED: ESCITALOPRAM OXALATE 10 MG TABLET (FP) ONE (20:41)
[2018-09-15] MEDS: ESCITALOPRAM OXALATE 10 MG TABLET (FP) PO SCH (20:45)
[2018-09-15] MEDS ORDERED: SODIUM CHLORIDE 1,000 ML IV SCH (20:45)
[2018-09-15] MEDS: amLODIPine BESYLATE 10 MG TABLET (FP) PO SCH (20:46)
[2018-09-15] MEDS ORDERED: APIXABAN 5 MG TABLET PO ONE (22:22)
[2018-09-15] MEDS ORDERED: PREGABALIN 100 MG CAPSULE ONE (22:22)
[2018-09-15] MEDS ORDERED: LABETALOL HCL 100 MG TABLET (FP) ONE (22:22)
[2018-09-15] MEDS ORDERED: QUEtiapine FUMARATE 25 MG TABLET (FP) ONE (22:23)
[2018-09-15] MEDS: traZODone HCL 100 MG TABLET (FP) PO SCH (22:34)
[2018-09-15] MEDS: PREGABALIN 100 MG CAPSULE PO SCH (22:34)
[2018-09-15] MEDS: LABETALOL HCL 200 MG TABLET (FP) PO SCH (22:34)
[2018-09-15] MEDS: APIXABAN 2.5 MG TABLET PO SCH (22:34)
[2018-09-15] MEDS: QUEtiapine FUMARATE 50 MG TABLET PO SCH (22:35)
[2018-09-15] MEDS ORDERED: INSULIN (NOVOLOG) ASPART 100 UNITS/ML 10ML VIAL ONE (22:36)
[2018-09-15] MEDS: INSULIN SLIDING SCALE (NOVOLOG) 1 VIAL SQ SCH (22:40)
[2018-09-16] MEDS: VANCOMYCIN 250 MG/5 ML ORAL SOLUTION PO SCH ×4 (00:38→17:02)
[2018-09-16] MEDS ORDERED: SODIUM CHLORIDE 500 ML IV STA (01:19)
[2018-09-16 05:48] LABS: BASO % 0.4 % (0-2.0); EOS % 0.3 % (0-4.5); HEMOGLOBIN 10.9 GM/dL (10.7-15.3); LYMPH % 8.7 % (8-40); MCH 30.3 pg (25.7-33.7); MCHC 34.1 g/dl (32.0-36.0); MEAN PLT VOLUME 8.7 fl (7.5-11.1); MONO % 6.1 % (3.8-10.2); NEUT % 84.5 % (42.8-82.8); PLATELET COUNT 238 K/MM3 (134-434); RBC 3.59 M/mm3 (3.60-5.2); RDW 14.4 % (11.6-15.6); WHITE BLOOD COUNT 15.8 K/mm3 (4.0-10.0)
[2018-09-16 06:25] LABS: ALBUMIN 3.4 g/dl (3.4-5.0); ALK PHOS 71 U/L (45-117); ANION GAP 14 MMOL/L (8-16); BILIRUBIN,TOTAL 0.4 mg/dL (0.2-1); BLOOD UREA NITROGEN 45 mg/dL (7-18); CALCIUM 7.8 mg/dL (8.5-10.1); CHLORIDE 103 mmol/L (98-107); CO2 20 mmol/L (21-32); GLUCOSE,RANDOM 126 mg/dL (74-106); POTASSIUM 4.2 mmol/L (3.5-5.1); SGOT/AST 84 U/L (15-37); SGPT/ALT 63 U/L (13-61); SODIUM 138 mmol/L (136-145); TOT PROT 6.3 g/dl (6.4-8.2)
[2018-09-16] MEDS ORDERED: PREGABALIN 50 MG CAPSULE ONE (06:28)
[2018-09-16] MEDS: INSULIN SLIDING SCALE (NOVOLOG) 1 VIAL SQ SCH ×4 (06:33→21:30)
[2018-09-16] MEDS: PREGABALIN 100 MG CAPSULE PO SCH ×3 (06:33→21:30)
[2018-09-16] MEDS ORDERED: LABETALOL HCL 100 MG TABLET (FP) ONE (08:27)
[2018-09-16] MEDS ORDERED: amLODIPine BESYLATE 5 MG TABLET (FP) ONE (08:28)
[2018-09-16] MEDS ORDERED: ESCITALOPRAM OXALATE 10 MG TABLET (FP) ONE (08:28)
[2018-09-16] MEDS ORDERED: APIXABAN 5 MG TABLET PO ONE (08:28)
[2018-09-16] MEDS ORDERED: BACITRACIN 0.9 GM PACKET ONE (08:29)
[2018-09-16] MEDS: BACITRACIN 15 GM TUBE TOPICAL OINTMENT TP SCH (09:36)
[2018-09-16] MEDS: APIXABAN 2.5 MG TABLET PO SCH ×2 (09:37→21:30)
[2018-09-16] MEDS: ESCITALOPRAM OXALATE 10 MG TABLET (FP) PO SCH (09:37)
[2018-09-16] MEDS: amLODIPine BESYLATE 10 MG TABLET (FP) PO SCH (09:41)
[2018-09-16] MEDS: LABETALOL HCL 200 MG TABLET (FP) PO SCH (09:41)
[2018-09-16 09:43] LABS: HCG,QUALITATIVE URINE Negative; URINE APPEARANCE CLOUDY; URINE BILIRUBIN NEGATIVE (<2.0 mg/dL); URINE COLOR YELLOW; URINE GLUCOSE (UA) NEGATIVE (NEGATIVE); URINE KETONE NEGATIVE (NEGATIVE); URINE LEUK ESTERASE NEGATIVE (NEGATIVE); URINE NITRITE NEGATIVE (NEGATIVE); URINE PROTEIN 1+ (NEGATIVE); URINE UROBILINOGEN NEGATIVE mg/dL (0.2-1.0)
[2018-09-16 09:49] LABS: EPI CELLS MODERATE /HPF (FEW); GRANULAR CASTS 81 /lpf; URINE BACTERIA MANY /hpf (NONE SEEN); URINE HYALINE CAST 9 /lpf; URINE MUCUS RARE
--- NOTE | 2018-09-16 10:44 | CONSULT ---
Consult - text type - Consultation Consultation Note: Renal Consult for ANASTASIA This is a 48 year old woman with history of ANASTASIA from [facility] (required dialysis on 2 seperate instances in the past), Polysubstance abuse, Hypertension , DVT s/p IVC filter, Depression, Kidney stones who presented with AMS s/p Heroin use and found to have ANASTASIA. Pt with recent diagnosis of Cdiff Colitis and continues to have diarrhea. Pt also reports sporadic NSAID use at home. Denies any flank pain, N/V. Has frequent loose stools throughout the day. Also reports some chest pain and pressure at this time. No Fever, chills. Denies any swelling in legs. No skin rash noted. PMhx: as above Allergies: NKDA Family Hx: NC Social Hx: No T/A/D ROS: as per HPI Home Medications Medication Instructions Recorded Pregabalin [Lyrica] 100 mg PO TID 10/02/16 traZODone HCL [Desyrel -] 100 mg PO HS 02/13/18 Quetiapine Fumarate [Seroquel -] 50 mg PO HS #30 tablet 05/17/18 Escitalopram Oxalate [Lexapro -] 5 mg PO DAILY 08/06/18 Amlodipine Besylate 10 mg PO DAILY #30 tablet 08/18/18 Apixaban [Eliquis] 2.5 mg PO BID #60 tablet 08/18/18 Bacitracin - [Bacitracin Topical 1 applic TP DAILY #1 tube 08/18/18 Ointment -] Labetalol HCl [Normodyne -] 400 mg PO BID #120 tablet 08/18/18 Sitagliptin Phosphate [Januvia] 100 mg PO DAILY #30 tablet 08/18/18 Vancomycin HCl 125 mg PO Q6H 10 Days #40 capsule 09/01/18 Vital Signs Temperature 98.9 F 09/16/18 07:31 Pulse Rate 89 09/16/18 09:00 Respiratory Rate 16 09/16/18 09:00 Blood Pressure 102/89 09/16/18 09:00 O2 Sat by Pulse Oximetry (%) 97 09/16/18 09:23 Intake & Output 09/13/18 09/14/18 09/15/18 09/16/18 23:59 23:59 23:59 23:59 Weight 116.12 kg NAD awake and alert neck supple, no JVD RRR, NO M/R CTA soft NT/ND, Obese no LE edema, clubbing or cyanosis no focal neurologic defects CBC, BMP 09/16/18 05:30 09/16/18 05:30 Current Medications Amlodipine Besylate (Norvasc -) 10 mg PO DAILY [facility] Last Admin: 09/16/18 09:41 Dose: Not Given Apixaban (Eliquis -) 2.5 mg PO BID [facility] Last Admin: 09/16/18 09:37 Dose: 2.5 mg Bacitracin (Bacitracin -) 1 applic TP DAILY [facility] Last Admin: 09/16/18 09:36 Dose: 1 applic Escitalopram Oxalate (Lexapro -) 5 mg PO DAILY [facility] Last Admin: 09/16/18 09:37 Dose: 5 mg Sodium Chloride (Normal Saline -) 1,000 mls @ 83 mls/hr IV ASDIR [facility] Last Admin: 09/15/18 21:09 Dose: 83 mls/hr Insulin Aspart (Novolog Vial Sliding Scale -) 1 vial SQ ACHS [facility]; Protocol Last Admin: 09/16/18 06:33 Dose: Not Given Labetalol HCl (Normodyne -) 400 mg PO BID [facility] Last Admin: 09/16/18 09:41 Dose: Not Given Pregabalin (Lyrica -) 100 mg PO TID [facility] Last Admin: 09/16/18 06:33 Dose: 100 mg Quetiapine Fumarate (Seroquel -) 50 mg PO [facility] Last Admin: 09/15/18 22:35 Dose: 50 mg Trazodone HCl (Desyrel -) 100 mg PO HS [facility] Last Admin: 09/15/18 22:34 Dose: 100 mg Vancomycin HCl (Vancomycin Oral Solution) 125 mg PO Q6HPO [facility] Last Admin: 09/16/18 06:33 Dose: 125 mg 48 year old woman with history of ANASTASIA from [facility] (required dialysis on 2 seperate instances in the past), Polysubstance abuse, Hypertension, DVT s/p IVC filter, Depression, Kidney stones who presented with AMS s/p Heroin use and found to have ANASTASIA. #ANASTASIA in setting of diarrhea/NSAID use and Heroin use likely recurrent [facility] #AMS in setting of heroin use #Diarrhea in setting of Colitis #Hx of Hypertension, now with marginal BP #DVT on A/C with Eliquis Would hold antihypertensives at this time given marginal BP Continue aggressive IVF hydration with isotonic saline with goal MAP > 65 CT of the Abd showed no pathology within in the kidneys No acute need for ROOF ASSEMBLER at this time Would monitor renal function and electrolytes Cardiology consult for chest pressure continue management of colitis as primary Thank you Will follow Alejandro Pace DO
--- NOTE | 2018-09-16 10:46 | EKG ---
Test Reason : Blood Pressure : / mmHG Vent. Rate : 093 BPM Atrial Rate : 093 BPM P-R Int : 150 ms QRS Dur : 096 ms QT Int : 376 ms P-R-T Axes : 040 055 013 degrees QTc Int : 467 ms NORMAL SINUS RHYTHM CANNOT RULE OUT ANTERIOR INFARCT (CITED ON OR BEFORE 27-AUG-2018) ABNORMAL ECG WHEN COMPARED WITH ECG OF 27-AUG-2018 19:35, NO SIGNIFICANT CHANGE WAS FOUND Confirmed by BRETT DANGELO MD ([id number]) on 09/16/2018 10:46:02 AM Referred By: Confirmed By:BRETT DANGELO MD
[2018-09-16] MEDS ORDERED: SODIUM CHLORIDE 1,000 ML IV SCH (10:47)
[2018-09-16] MEDS ORDERED: INSULIN (NOVOLOG) ASPART 100 UNITS/ML 10ML VIAL ONE ×2 (12:23→16:53)
[2018-09-16] MEDS ORDERED: PREGABALIN 100 MG CAPSULE ONE ×2 (14:03→21:13)
--- NOTE | 2018-09-16 15:27 | PN ---
Physical Exam: SUBJECTIVE: Patient seen and examined at [facility]- patient states she feels like she got runover by a truck- feels very achy - endorses that she is done using drugs and wants to go to rehab- states that she is still having diarrhea OBJECTIVE: Vital Signs Period Temp Pulse Resp BP Sys/Puente Pulse Ox Last 24 Hr 98.9 F 87-95 12-16 86-112/53-89 96-99 GENERAL: The patient is awake, alert, and fully oriented, in no acute distress. EYES:PEERLA; EOMI; no scleral icterus . NECK: no JVD; no lymphadenopathy LUNGS: CTA B/L; no rales, rhonchi or wheezing HEART: Regular rate and rhythm, S1, S2 without murmur, rub or gallop. ABDOMEN: Soft, nontender, nondistended, normoactive bowel sounds, no guarding, no rebound, no hepatosplenomegaly, no masses. EXTREMITIES: 2+ pulses, warm, well-perfused, trace edema. PSYCH: Normal mood, normal affect. SKIN: Warm, dry, normal turgor, no rashes or lesions noted Laboratory Results - last 24 hr 09/15/18 09/15/18 09/15/18 09:10 14:56 14:56 WBC RBC Hgb Hct MCV MCH MCHC RDW Plt Count MPV Absolute Neuts (auto) Total Counted Neutrophils % Neutrophils % (Manual) 69.0 Band Neutrophils % 24.0 Lymphocytes % Lymphocytes % (Manual) 1.0 L D Monocytes % Monocytes % (Manual) 5 D Eosinophils % Eosinophils % (Manual) 0.0 D Basophils % Basophils % (Manual) 0.0 Myelocytes % (Man) 0 D Promyelocytes % (Man) 0 Blast Cells % (Manual) 0 Nucleated RBC % 0 Metamyelocytes 1 D Hypochromia 0 Platelet Estimate Normal Polychromasia 0 Poikilocytosis 0 Anisocytosis 0 Microcytosis 0 Macrocytosis 0 Sodium 142 Potassium 4.1 Chloride 103 Carbon Dioxide 22 Anion Gap 16 BUN 37 H Creatinine 3.1 H Creat Clearance w eGFR 16.18 POC Glucometer Random Glucose 202 H Calcium 9.3 Total Bilirubin 0.4 AST 75 H ALT 62 H Alkaline Phosphatase 101 Total Protein 7.9 Albumin 4.3 Beta HCG, Quant 2.8 Urine Color Yellow Urine Appearance Cloudy Urine pH 5.0 D Ur Specific Steele 1.013 Urine Protein 1+ H Urine Glucose (UA) Negative Urine Ketones Negative Urine Blood 2+ H Urine Nitrite Negative Urine Bilirubin Negative Urine Urobilinogen Negative Ur Leukocyte Esterase Negative Urine WBC (Auto) 9 Urine RBC (Auto) None Ur Epithelial Cells Moderate Urine Bacteria Many Hyaline Casts 9 Granular Casts 81 Urine Mucus Rare Urine HCG, Qual Negative 09/15/18 09/16/18 09/16/18 22:33 05:30 05:30 WBC 15.8 H RBC 3.59 L Hgb 10.9 Hct 32.0 L D MCV 89.0 MCH 30.3 MCHC 34.1 RDW 14.4 Plt Count 238 MPV 8.7 Absolute Neuts (auto) 13.3 H Total Counted 100 Neutrophils % 84.5 H Neutrophils % (Manual) 67.0 Band Neutrophils % 14.0 Lymphocytes % 8.7 D Lymphocytes % (Manual) 14.0 D Monocytes % 6.1 Monocytes % (Manual) 3 L Eosinophils % 0.3 D Eosinophils % (Manual) Basophils % 0.4 Basophils % (Manual) Myelocytes % (Man) 1 Promyelocytes % (Man) Blast Cells % (Manual) Nucleated RBC % 0 Metamyelocytes 1 Hypochromia Platelet Estimate Polychromasia Poikilocytosis Anisocytosis Microcytosis Macrocytosis Sodium 138 Potassium 4.2 Chloride 103 Carbon Dioxide 20 L Anion Gap 14 BUN 45 H Creatinine 3.0 H Creat Clearance w eGFR 16.80 POC Glucometer 154 Random Glucose 126 H Calcium 7.8 L Total Bilirubin 0.4 AST 84 H ALT 63 H Alkaline Phosphatase 71 Total Protein 6.3 L Albumin 3.4 Beta HCG, Quant Urine Color Urine Appearance Urine pH Ur Specific Steele Urine Protein Urine Glucose (UA) Urine Ketones Urine Blood Urine Nitrite Urine Bilirubin Urine Urobilinogen Ur Leukocyte Esterase Urine WBC (Auto) Urine RBC (Auto) Ur Epithelial Cells Urine Bacteria Hyaline Casts Granular Casts Urine Mucus Urine HCG, Qual 09/16/18 09/16/18 09/16/18 06:32 07:45 11:53 WBC RBC Hgb Hct MCV MCH MCHC RDW Plt Count MPV Absolute Neuts (auto) Total Counted Neutrophils % Neutrophils % (Manual) Band Neutrophils % Lymphocytes % Lymphocytes % (Manual) Monocytes % Monocytes % (Manual) Eosinophils % Eosinophils % (Manual) Basophils % Basophils % (Manual) Myelocytes % (Man) Promyelocytes % (Man) Blast Cells % (Manual) Nucleated RBC % Metamyelocytes Hypochromia Platelet Estimate Polychromasia Poikilocytosis Anisocytosis Microcytosis Macrocytosis Sodium Potassium Chloride Carbon Dioxide Anion Gap BUN Creatinine Creat Clearance w eGFR POC Glucometer 144 147 156 Random Glucose Calcium Total Bilirubin AST ALT Alkaline Phosphatase Total Protein Albumin Beta HCG, Quant Urine Color Urine Appearance Urine pH Ur Specific Steele Urine Protein Urine Glucose (UA) Urine Ketones Urine Blood Urine Nitrite Urine Bilirubin Urine Urobilinogen Ur Leukocyte Esterase Urine WBC (Auto) Urine RBC (Auto) Ur Epithelial Cells Urine Bacteria Hyaline Casts Granular Casts Urine Mucus Urine HCG, Qual Active Medications Generic Name Dose Route Start Last Admin Trade Name Freq PRN Reason Stop Dose Admin Apixaban 2.5 mg 09/15/18 22:00 09/16/18 09:37 Eliquis - PO 2.5 mg BID NI Administration Bacitracin 1 applic 09/15/18 20:30 09/16/18 09:36 Bacitracin - TP 1 applic DAILY NI Administration Escitalopram Oxalate 5 mg 09/15/18 20:30 09/16/18 09:37 Lexapro - PO 5 mg DAILY NI Administration Sodium Chloride 1,000 mls @ 100 mls/hr 09/16/18 10:47 09/16/18 11:45 Normal Saline - IV 100 mls/hr ASDIR NI Administration Insulin Aspart 1 vial 09/15/18 22:00 09/16/18 11:57 Novolog Vial Sliding Scale - SQ 2 unit ACHS NI Administration Protocol Pregabalin 100 mg 09/15/18 22:00 09/16/18 14:12 Lyrica - PO 100 mg TID NI Administration Quetiapine Fumarate 50 mg 09/15/18 22:00 09/15/18 22:35 Seroquel - PO 50 mg HS NI Administration Trazodone HCl 100 mg 09/15/18 22:00 09/15/18 22:34 Desyrel - PO 100 mg HS NI Administration Vancomycin HCl 125 mg 09/16/18 00:00 09/16/18 11:58 Vancomycin Oral Solution PO 125 mg Q6HPO NI Administration ASSESSMENT/PLAN: 48F w/ pmhx of HTN, NIDDM, polysubstance abuse (heroine, MJ), DVT (s/p IVC filter), peripheral neuropathy presented to the ED after a heroin overdose. #Heroin overdose -Given Narcan 2mg x2 prior to arrival -4L NC; monitor O2 sat -neurochecks/seizure, aspiration, fall precautions -Monitor for withdrawal symptoms -patient wants to go to detox/rehab: call placed to [facility] awaiting call back #Hx of Cdiff -Isolation precautions -Cont Vanc 125 PO q6H -Consider ID consult since pt still complaining of water/mucus diarrhea despite almost completing full PO Vanc regimen #CKD; BUN/Cr 37/3.1 -Dr Pace saw patient this AM; -recommended aggressive IV hydration and to hold BP meds at this time #NIDDM -Hold home DM meds -BGMs/ISS ACHS #HTN Holding BP meds at this time given patients hypotension #Hx of DVT; s/p IVC placement Cont home meds: Eliquis 2.5 BID #Depression/Anxiety Cont home med: Lexapro 5 QD, Seroquel 50 HS #Prophylaxis -Currently on Eliquis 2.5 BID #FEN - -recheck lytes in AM -Renal diet Problem List - Problems (1) Overdose of heroin Code(s): T40.1X1A - POISONING BY HEROIN, ACCIDENTAL (UNINTENTIONAL), INIT ENCNTR (2) ANASTASIA (acute kidney injury) Code(s): N17.9 - ACUTE KIDNEY FAILURE, UNSPECIFIED (3) CHF exacerbation Code(s): I50.9 - HEART FAILURE, UNSPECIFIED Qualifiers: Heart failure type: unspecified Qualified Code(s): I50.9 - Heart failure, unspecified (4) Hypotension Code(s): I95.9 - HYPOTENSION, UNSPECIFIED Qualifiers: Hypotension type: unspecified hypotension type Qualified Code(s): I95.9 - Hypotension, unspecified Visit type - Emergency Visit Emergency Visit: Yes ED Registration Date: 09/15/18 Care time: The patient presented to the Emergency Department on the above date and was hospitalized for further evaluation of their emergent condition. - New Patient This patient is new to me today: Yes Date on this admission: 09/16/18 - Critical Care Critical Care patient: No
--- NOTE | 2018-09-16 18:11 | PN ---
Teaching Attending Note Name of Resident: Bea Avery ATTENDING PHYSICIAN STATEMENT I saw and evaluated the patient. I reviewed the resident's note and discussed the case with the resident. I agree with the resident's findings and plan as documented. SUBJECTIVE: Patientis awake with no acute distress, admits to relapsing of heroin use. OBJECTIVE: Vital Signs Temperature 98.9 F 09/16/18 07:31 Pulse Rate 89 09/16/18 09:00 Respiratory Rate 16 09/16/18 09:00 Blood Pressure 102/89 09/16/18 09:00 O2 Sat by Pulse Oximetry (%) 97 09/16/18 09:23 GENERAL: The patient is awake, alert, and fully oriented, in no acute distress. EYES:PEERLA; EOMI; no scleral icterus . NECK: no JVD; no lymphadenopathy LUNGS: CTA B/L; no rales, rhonchi or wheezing HEART: Regular rate and rhythm, S1, S2 without murmur, rub or gallop. ABDOMEN: Soft, nontender, nondistended, normoactive bowel sounds, no guarding, no rebound, no hepatosplenomegaly, no masses. EXTREMITIES: 2+ pulses, warm, well-perfused, trace edema. PSYCH: Normal mood, normal affect. SKIN: Warm, dry, normal turgor, no rashes or lesions noted CBCD WBC 15.8 K/mm3 (4.0-10.0) H 09/16/18 05:30 RBC 3.59 M/mm3 (3.60-5.2) L 09/16/18 05:30 Hgb 10.9 GM/dL (10.7-15.3) 09/16/18 05:30 Hct 32.0 % (32.4-45.2) L D 09/16/18 05:30 MCV 89.0 fl (80-96) 09/16/18 05:30 MCHC 34.1 g/dl (32.0-36.0) 09/16/18 05:30 RDW 14.4 % (11.6-15.6) 09/16/18 05:30 Plt Count 238 K/MM3 (134-434) 09/16/18 05:30 MPV 8.7 fl (7.5-11.1) 09/16/18 05:30 CMP Sodium 138 mmol/L (136-145) 09/16/18 05:30 Potassium 4.2 mmol/L (3.5-5.1) 09/16/18 05:30 Chloride 103 mmol/L (98-107) 09/16/18 05:30 Carbon Dioxide 20 mmol/L (21-32) L 09/16/18 05:30 Anion Gap 14 MMOL/L (8-16) 09/16/18 05:30 BUN 45 mg/dL (7-18) H 09/16/18 05:30 Creatinine 3.0 mg/dL (0.55-1.3) H 09/16/18 05:30 Creat Clearance w eGFR 16.80 (>60) 09/16/18 05:30 Random Glucose 126 mg/dL (74-106) H 09/16/18 05:30 Calcium 7.8 mg/dL (8.5-10.1) L 09/16/18 05:30 Total Bilirubin 0.4 mg/dL (0.2-1) 09/16/18 05:30 AST 84 U/L (15-37) H 09/16/18 05:30 ALT 63 U/L (13-61) H 09/16/18 05:30 Alkaline Phosphatase 71 U/L (45-117) 09/16/18 05:30 Total Protein 6.3 g/dl (6.4-8.2) L 09/16/18 05:30 Albumin 3.4 g/dl (3.4-5.0) 09/16/18 05:30 Current Medications Generic Name Dose Route Start Last Admin Trade Name Freq PRN Reason Stop Dose Admin Apixaban 2.5 mg 09/15/18 22:00 09/16/18 09:37 Eliquis - PO 2.5 mg BID NI Administration Bacitracin 1 applic 09/15/18 20:30 09/16/18 09:36 Bacitracin - TP 1 applic DAILY NI Administration Escitalopram Oxalate 5 mg 09/15/18 20:30 09/16/18 09:37 Lexapro - PO 5 mg DAILY NI Administration Sodium Chloride 1,000 mls @ 100 mls/hr 09/16/18 10:47 09/16/18 11:45 Normal Saline - IV 100 mls/hr ASDIR NI Administration Insulin Aspart 1 vial 09/15/18 22:00 09/16/18 17:01 Novolog Vial Sliding Scale - SQ Not Given ACHS [facility] Protocol Pregabalin 100 mg 09/15/18 22:00 09/16/18 14:12 Lyrica - PO 100 mg TID NI Administration Quetiapine Fumarate 50 mg 09/15/18 22:00 09/15/18 22:35 Seroquel - PO 50 mg HS NI Administration Trazodone HCl 100 mg 09/15/18 22:00 09/15/18 22:34 Desyrel - PO 100 mg HS NI Administration Vancomycin HCl 125 mg 09/16/18 00:00 09/16/18 17:02 Vancomycin Oral Solution PO 125 mg Q6HPO NI Administration Home Medications Medication Instructions Recorded Pregabalin [Lyrica] 100 mg PO TID 10/02/16 traZODone HCL [Desyrel -] 100 mg PO HS 02/13/18 Quetiapine Fumarate [Seroquel -] 50 mg PO HS #30 tablet 05/17/18 Escitalopram Oxalate [Lexapro -] 5 mg PO DAILY 08/06/18 Amlodipine Besylate 10 mg PO DAILY #30 tablet 08/18/18 Apixaban [Eliquis] 2.5 mg PO BID #60 tablet 08/18/18 Bacitracin - [Bacitracin Topical 1 applic TP DAILY #1 tube 08/18/18 Ointment -] Labetalol HCl [Normodyne -] 400 mg PO BID #120 tablet 08/18/18 Sitagliptin Phosphate [Januvia] 100 mg PO DAILY #30 tablet 08/18/18 Vancomycin HCl 125 mg PO Q6H 10 Days #40 capsule 09/01/18 CTAP ([facility]): Diffuse fatty infiltration liver, indeterminate L adrenal nodule. Unremarkable CTAP, given limitations of nonenhanced CT. CXR: Weak inspiration w/ central crowding and prominent mediastinum (compared to 08/27/18) ASSESSMENT/PLAN: 48F w/ pmhx of HTN, NIDDM, polysubstance abuse (heroine, MJ), DVT (s/p IVC filter), peripheral neuropathy presented to the ED after a heroin overdose. #Heroin overdose s/p narcan, patient would like to go to long-term rehab. #Hx of Cdiff:Isolation precautions, Cont Vanc 125 PO q6H #Acute over CKD; BUN/Cr 37/3.1; will hydrte the patient and repeat in am , follow with as an outpatient. #NIDDM; Hold home DM meds, BGMs/ISS ACHS #HTN:cont home meds: Amlodipine 10 mg QD, Labetolol 100 BID #Depression/Anxiety:cont home med: Lexapro 5 QD, Seroquel 50 HS #Hx of DVT; s/p IVC placement, continue Eliquis 2.5 BID
[2018-09-16 19:39] LABS: ALBUMIN 3.3 g/dl (3.4-5.0); ALK PHOS 78 U/L (45-117); ANION GAP 10 MMOL/L (8-16); BILIRUBIN,TOTAL 0.3 mg/dL (0.2-1); BLOOD UREA NITROGEN 36 mg/dL (7-18); CALCIUM 7.9 mg/dL (8.5-10.1); CHLORIDE 108 mmol/L (98-107); CO2 20 mmol/L (21-32); GLUCOSE,RANDOM 136 mg/dL (74-106); POTASSIUM 3.8 mmol/L (3.5-5.1); SGOT/AST 67 U/L (15-37); SGPT/ALT 62 U/L (13-61); SODIUM 138 mmol/L (136-145); TOT PROT 6.3 g/dl (6.4-8.2)
[2018-09-16] MEDS ORDERED: SERTRALINE HCL 50 MG TABLET (FP) ONE (20:18)
[2018-09-16] MEDS ORDERED: QUEtiapine FUMARATE 25 MG TABLET (FP) ONE (21:15)
[2018-09-16] MEDS: QUEtiapine FUMARATE 50 MG TABLET PO SCH (21:30)
[2018-09-16] MEDS: traZODone HCL 100 MG TABLET (FP) PO SCH (21:30)
[2018-09-17] MEDS ORDERED: VANCOMYCIN 1 GRAM (PRE-DOCKED) 1,000 MG/250 ML BAG IVPB ONE (00:35)
[2018-09-17] MEDS ORDERED: ACETAMINOPHEN 325 MG TABLET (FP) PO PRN (00:52)
[2018-09-17] MEDS: VANCOMYCIN 250 MG/5 ML ORAL SOLUTION PO SCH ×2 (01:00→06:47)
[2018-09-17 02:20] LABS: URINE APPEARANCE CLEAR; URINE BILIRUBIN NEGATIVE (<2.0 mg/dL); URINE COLOR STRAW; URINE GLUCOSE (UA) NEGATIVE (NEGATIVE); URINE KETONE NEGATIVE (NEGATIVE); URINE LEUK ESTERASE NEGATIVE (NEGATIVE); URINE NITRITE NEGATIVE (NEGATIVE); URINE PROTEIN NEGATIVE (NEGATIVE); URINE UROBILINOGEN NEGATIVE mg/dL (0.2-1.0)
[2018-09-17 03:02] LABS: COCAINE, UR NEGATIVE ng/ml (CUTOFF=300); METHADONE, UR NEGATIVE ng/ml (CUTOFF=300); PHENCYCLIDINE,URINE NEGATIVE ng/ml (CUTOFF=25); URINE AMPHETAMINES NEGATIVE ng/ml (CUTOFF=500); URINE BARBITURATES NEGATIVE ng/ml (CUTOFF=200); URINE BENZODIAZEPINES NEGATIVE ng/ml (CUTOFF=200)
[2018-09-17 03:09] LABS: OPIATES, URI POSITIVE ng/ml (CUTOFF=300)
[2018-09-17] MEDS ORDERED: PREGABALIN 100 MG CAPSULE ONE (06:13)
[2018-09-17] MEDS: PREGABALIN 100 MG CAPSULE PO SCH (06:25)
[2018-09-17] MEDS: INSULIN SLIDING SCALE (NOVOLOG) 1 VIAL SQ SCH (06:28)
[2018-09-17 06:30] LABS: ANION GAP 8 MMOL/L (8-16); BLOOD UREA NITROGEN 27 mg/dL (7-18); CALCIUM 8.1 mg/dL (8.5-10.1); CHLORIDE 111 mmol/L (98-107); CO2 22 mmol/L (21-32); CREATININE 1.4 mg/dL (0.55-1.3); GLUCOSE,RANDOM 100 mg/dL (74-106); POTASSIUM 3.5 mmol/L (3.5-5.1); SODIUM 141 mmol/L (136-145)
[2018-09-17 06:32] VITALS: PULSE 81; TEMP 97.9
[2018-09-17 06:54] LABS: BASO % 0.3 % (0-2.0); EOS % 1.1 % (0-4.5); HEMATOCRIT 27.4 % (32.4-45.2); HEMOGLOBIN 9.5 GM/dL (10.7-15.3); LYMPH % 20.5 % (8-40); MCH 30.9 pg (25.7-33.7); MCHC 34.5 g/dl (32.0-36.0); MEAN CELL VOLUME 89.6 fl (80-96); MEAN PLT VOLUME 8.8 fl (7.5-11.1); MONO % 10.4 % (3.8-10.2); NEUT % 67.7 % (42.8-82.8); PLATELET COUNT 179 K/MM3 (134-434); RBC 3.06 M/mm3 (3.60-5.2); RDW 14.3 % (11.6-15.6); WHITE BLOOD COUNT 9.8 K/mm3 (4.0-10.0)
--- NOTE | 2018-09-17 08:17 | PN ---
Teaching Attending Note Name of Resident: Bea Avery ATTENDING PHYSICIAN STATEMENT I saw and evaluated the patient. I reviewed the resident's note and discussed the case with the resident. I agree with the resident's findings and plan as documented. SUBJECTIVE: Patient is feeling better wants to go to rehab. OBJECTIVE: Vital Signs Temperature 97.9 F 09/17/18 06:25 Pulse Rate 81 09/17/18 06:25 Respiratory Rate 12 09/17/18 06:25 Blood Pressure 99/60 09/17/18 06:25 O2 Sat by Pulse Oximetry (%) 98 09/17/18 06:25 Initial Vital Signs Temp Pulse Resp BP Pulse Ox 97.9 F 104 H 18 95/69 96 09/15/18 14:41 09/15/18 14:41 09/15/18 14:41 09/15/18 14:41 09/15/18 14:41 GENERAL: The patient is awake, alert, and fully oriented, in no acute distress. EYES:PEERLA; EOMI; no scleral icterus . NECK: no JVD; no lymphadenopathy LUNGS: CTA B/L; no rales, rhonchi or wheezing HEART: Regular rate and rhythm, S1, S2 without murmur, rub or gallop. ABDOMEN: Soft, nontender, nondistended, normoactive bowel sounds, no guarding, no rebound, no hepatosplenomegaly, no masses. EXTREMITIES: 2+ pulses, warm, well-perfused, trace edema. PSYCH: Normal mood, normal affect. SKIN: Warm, dry, normal turgor, no rashes or lesions noted CBCD WBC 9.8 K/mm3 (4.0-10.0) 09/17/18 05:30 RBC 3.06 M/mm3 (3.60-5.2) L 09/17/18 05:30 Hgb 9.5 GM/dL (10.7-15.3) L 09/17/18 05:30 Hct 27.4 % (32.4-45.2) L 09/17/18 05:30 MCV 89.6 fl (80-96) 09/17/18 05:30 MCHC 34.5 g/dl (32.0-36.0) 09/17/18 05:30 RDW 14.3 % (11.6-15.6) 09/17/18 05:30 Plt Count 179 K/MM3 (134-434) D 09/17/18 05:30 MPV 8.8 fl (7.5-11.1) 09/17/18 05:30 CMP Sodium 141 mmol/L (136-145) 09/17/18 05:30 Potassium 3.5 mmol/L (3.5-5.1) 09/17/18 05:30 Chloride 111 mmol/L (98-107) H 09/17/18 05:30 Carbon Dioxide 22 mmol/L (21-32) 09/17/18 05:30 Anion Gap 8 MMOL/L (8-16) 09/17/18 05:30 BUN 27 mg/dL (7-18) H 09/17/18 05:30 Creatinine 1.4 mg/dL (0.55-1.3) H 09/17/18 05:30 Creat Clearance w eGFR 40.48 (>60) 09/17/18 05:30 Random Glucose 100 mg/dL (74-106) 09/17/18 05:30 Calcium 8.1 mg/dL (8.5-10.1) L 09/17/18 05:30 Total Bilirubin 0.3 mg/dL (0.2-1) 09/16/18 18:00 AST 67 U/L (15-37) H 09/16/18 18:00 ALT 62 U/L (13-61) H 09/16/18 18:00 Alkaline Phosphatase 78 U/L (45-117) 09/16/18 18:00 Total Protein 6.3 g/dl (6.4-8.2) L 09/16/18 18:00 Albumin 3.3 g/dl (3.4-5.0) L 09/16/18 18:00 Current Medications Generic Name Dose Route Start Last Admin Trade Name Freq PRN Reason Stop Dose Admin Acetaminophen 650 mg 09/17/18 00:52 09/17/18 01:15 Tylenol - PO 650 mg Q6H PRN Administration Fever Or Pain Apixaban 2.5 mg 09/15/18 22:00 09/16/18 21:30 Eliquis - PO 2.5 mg BID NI Administration Bacitracin 1 applic 09/15/18 20:30 09/16/18 09:36 Bacitracin - TP 1 applic DAILY NI Administration Escitalopram Oxalate 5 mg 09/15/18 20:30 09/16/18 09:37 Lexapro - PO 5 mg DAILY NI Administration Sodium Chloride 1,000 mls @ 100 mls/hr 09/16/18 10:47 09/16/18 11:45 Normal Saline - IV 100 mls/hr ASDIR NI Administration Insulin Aspart 1 vial 09/15/18 22:00 09/17/18 06:28 Novolog Vial Sliding Scale - SQ Not Given ACHS [facility] Protocol Pregabalin 100 mg 09/15/18 22:00 09/17/18 06:25 Lyrica - PO 100 mg TID NI Administration Quetiapine Fumarate 50 mg 09/15/18 22:00 09/16/18 21:30 Seroquel - PO 50 mg HS NI Administration Trazodone HCl 100 mg 09/15/18 22:00 09/16/18 21:30 Desyrel - PO 100 mg HS NI Administration Vancomycin HCl 125 mg 09/16/18 00:00 09/17/18 06:47 Vancomycin Oral Solution PO 125 mg Q6HPO NI Administration Home Medications Medication Instructions Recorded Pregabalin [Lyrica] 100 mg PO TID 10/02/16 traZODone HCL [Desyrel -] 100 mg PO HS 02/13/18 Quetiapine Fumarate [Seroquel -] 50 mg PO HS #30 tablet 05/17/18 Escitalopram Oxalate [Lexapro -] 5 mg PO DAILY 08/06/18 Amlodipine Besylate 10 mg PO DAILY #30 tablet 08/18/18 Apixaban [Eliquis] 2.5 mg PO BID #60 tablet 08/18/18 Bacitracin - [Bacitracin Topical 1 applic TP DAILY #1 tube 08/18/18 Ointment -] Labetalol HCl [Normodyne -] 400 mg PO BID #120 tablet 08/18/18 Sitagliptin Phosphate [Januvia] 100 mg PO DAILY #30 tablet 08/18/18 Vancomycin HCl 125 mg PO Q6H 10 Days #40 capsule 09/01/18 CTAP ([facility]): Diffuse fatty infiltration liver, indeterminate L adrenal nodule. Unremarkable CTAP, given limitations of nonenhanced CT. CXR: Weak inspiration w/ central crowding and prominent mediastinum (compared to 08/27/18) ASSESSMENT/PLAN: 48F w/ pmhx of HTN, NIDDM, polysubstance abuse (heroine, MJ), DVT (s/p IVC filter), peripheral neuropathy presented to the ED after a heroin overdose. #Heroin overdose s/p narcan, [facility]. Leukocytosis improved post IVF back to normal now. #Hx of Cdiff:Isolation precautions, Cont Vanc 125 PO q6H #Acute over CKD; BUN/Cr 37/3.1-->1.4 today post hydration ; outpatient follow up appt with nephro #NIDDM; continue home meds #HTN:cont home meds: Amlodipine 10 mg QD, Labetolol 100 BID #Depression/Anxiety:cont home med: Lexapro 5 QD, Seroquel 50 HS #Hx of DVT; s/p IVC placement, continue Eliquis 2.5 BID
--- NOTE | 2018-09-17 08:37 | PN ---
Physical Exam: SUBJECTIVE: Patient seen and examined at bedside- patient is lethargic stating that she still feels very weak and achy and having diarrhea. will reach out to [facility] again today regarding rehab placement OBJECTIVE: Vital Signs Period Temp Pulse Resp BP Sys/Puente Pulse Ox Last 24 Hr 97.9 F-98.5 F 81-110 12-20 99-148/60-89 95-99 GENERAL: The patient is slightly lethargic and somnolent EYES:PEERLA; EOMI: no scleral icterus . NECK: no JVD; no lymphadenopathy. LUNGS: CTA B/L; no rales, rhonchi or wheezing HEART: Regular rate and rhythm, S1, S2 without murmur, rub or gallop. ABDOMEN: Soft, obese, , nondistended, normoactive bowel sounds, no guarding, no rebound, no hepatosplenomegaly, no masses. EXTREMITIES: 2+ pulses, warm, well-perfused, no edema. . PSYCH: Normal mood, normal affect. SKIN: Warm, dry, normal turgor, no rashes or lesions noted Laboratory Results - last 24 hr 09/15/18 09/16/18 09/16/18 09:10 11:53 16:56 WBC RBC Hgb Hct MCV MCH MCHC RDW Plt Count MPV Absolute Neuts (auto) Neutrophils % Lymphocytes % Monocytes % Eosinophils % Basophils % Nucleated RBC % Sodium Potassium Chloride Carbon Dioxide Anion Gap BUN Creatinine Creat Clearance w eGFR POC Glucometer 156 141 Random Glucose Calcium Phosphorus Magnesium Total Bilirubin AST ALT Alkaline Phosphatase Total Protein Albumin Urine Color Yellow Urine Appearance Cloudy Urine pH 5.0 D Ur Specific [place] 1.013 Urine Protein 1+ H Urine Glucose (UA) Negative Urine Ketones Negative Urine Blood 2+ H Urine Nitrite Negative Urine Bilirubin Negative Urine Urobilinogen Negative Ur Leukocyte Esterase Negative Urine WBC (Auto) 9 Urine RBC (Auto) None Ur Epithelial Cells Moderate Urine Bacteria Many Hyaline Casts 9 Granular Casts 81 Urine Mucus Rare Urine HCG, Qual Negative Opiates Screen Methadone Screen Barbiturate Screen Phencyclidine Screen Ur Amphetamines Screen MDMA (Ecstasy) Screen Benzodiazepines Screen Cocaine Screen U Marijuana (THC) Screen 09/16/18 09/16/18 09/17/18 18:00 21:29 01:50 WBC RBC Hgb Hct MCV MCH MCHC RDW Plt Count MPV Absolute Neuts (auto) Neutrophils % Lymphocytes % Monocytes % Eosinophils % Basophils % Nucleated RBC % Sodium 138 Potassium 3.8 Chloride 108 H Carbon Dioxide 20 L Anion Gap 10 BUN 36 H Creatinine 2.0 H Creat Clearance w eGFR 26.82 POC Glucometer 131 Random Glucose 136 H Calcium 7.9 L Phosphorus Magnesium Total Bilirubin 0.3 AST 67 H ALT 62 H Alkaline Phosphatase 78 Total Protein 6.3 L Albumin 3.3 L Urine Color Urine Appearance Urine pH Ur Specific [place] Urine Protein Urine Glucose (UA) Urine Ketones Urine Blood Urine Nitrite Urine Bilirubin Urine Urobilinogen Ur Leukocyte Esterase Urine WBC (Auto) Urine RBC (Auto) Ur Epithelial Cells Urine Bacteria Hyaline Casts Granular Casts Urine Mucus Urine HCG, Qual Opiates Screen Positive A* Methadone Screen Negative Barbiturate Screen Negative Phencyclidine Screen Negative Ur Amphetamines Screen Negative MDMA (Ecstasy) Screen Negative Benzodiazepines Screen Negative Cocaine Screen Negative U Marijuana (THC) Screen Positive A* 09/17/18 09/17/18 09/17/18 01:50 05:30 05:30 WBC 9.8 RBC 3.06 L Hgb 9.5 L Hct 27.4 L MCV 89.6 MCH 30.9 MCHC 34.5 RDW 14.3 Plt Count 179 D MPV 8.8 Absolute Neuts (auto) 6.6 Neutrophils % 67.7 Lymphocytes % 20.5 D Monocytes % 10.4 H Eosinophils % 1.1 D Basophils % 0.3 Nucleated RBC % 0 Sodium 141 Potassium 3.5 Chloride 111 H Carbon Dioxide 22 Anion Gap 8 BUN 27 H Creatinine 1.4 H Creat Clearance w eGFR 40.48 POC Glucometer Random Glucose 100 Calcium 8.1 L Phosphorus 4.0 Magnesium 2.0 Total Bilirubin AST ALT Alkaline Phosphatase Total Protein Albumin Urine Color Straw Urine Appearance Clear Urine pH 7.0 D Ur Specific [place] 1.005 L Urine Protein Negative Urine Glucose (UA) Negative Urine Ketones Negative Urine Blood Negative Urine Nitrite Negative Urine Bilirubin Negative Urine Urobilinogen Negative Ur Leukocyte Esterase Negative Urine WBC (Auto) Urine RBC (Auto) Ur Epithelial Cells Urine Bacteria Hyaline Casts Granular Casts Urine Mucus Urine HCG, Qual Opiates Screen Methadone Screen Barbiturate Screen Phencyclidine Screen Ur Amphetamines Screen MDMA (Ecstasy) Screen Benzodiazepines Screen Cocaine Screen U Marijuana (THC) Screen 09/17/18 06:25 WBC RBC Hgb Hct MCV MCH MCHC RDW Plt Count MPV Absolute Neuts (auto) Neutrophils % Lymphocytes % Monocytes % Eosinophils % Basophils % Nucleated RBC % Sodium Potassium Chloride Carbon Dioxide Anion Gap BUN Creatinine Creat Clearance w eGFR POC Glucometer 102 Random Glucose Calcium Phosphorus Magnesium Total Bilirubin AST ALT Alkaline Phosphatase Total Protein Albumin Urine Color Urine Appearance Urine pH Ur Specific [place] Urine Protein Urine Glucose (UA) Urine Ketones Urine Blood Urine Nitrite Urine Bilirubin Urine Urobilinogen Ur Leukocyte Esterase Urine WBC (Auto) Urine RBC (Auto) Ur Epithelial Cells Urine Bacteria Hyaline Casts Granular Casts Urine Mucus Urine HCG, Qual Opiates Screen Methadone Screen Barbiturate Screen Phencyclidine Screen Ur Amphetamines Screen MDMA (Ecstasy) Screen Benzodiazepines Screen Cocaine Screen U Marijuana (THC) Screen Active Medications Generic Name Dose Route Start Last Admin Trade Name Freq PRN Reason Stop Dose Admin Acetaminophen 650 mg 09/17/18 00:52 09/17/18 01:15 Tylenol - PO 650 mg Q6H PRN Administration Fever Or Pain Apixaban 2.5 mg 09/15/18 22:00 09/16/18 21:30 Eliquis - PO 2.5 mg BID NI Administration Bacitracin 1 applic 09/15/18 20:30 09/16/18 09:36 Bacitracin - TP 1 applic DAILY NI Administration Escitalopram Oxalate 5 mg 09/15/18 20:30 09/16/18 09:37 Lexapro - PO 5 mg DAILY NI Administration Sodium Chloride 1,000 mls @ 100 mls/hr 09/16/18 10:47 09/16/18 11:45 Normal Saline - IV 100 mls/hr ASDIR NI Administration Insulin Aspart 1 vial 09/15/18 22:00 09/17/18 06:28 Novolog Vial Sliding Scale - SQ Not Given ACHS [facility] Protocol Pregabalin 100 mg 09/15/18 22:00 09/17/18 06:25 Lyrica - PO 100 mg TID NI Administration Quetiapine Fumarate 50 mg 09/15/18 22:00 09/16/18 21:30 Seroquel - PO 50 mg HS NI Administration Trazodone HCl 100 mg 09/15/18 22:00 09/16/18 21:30 Desyrel - PO 100 mg HS NI Administration Vancomycin HCl 125 mg 09/16/18 00:00 09/17/18 06:47 Vancomycin Oral Solution PO 125 mg Q6HPO NI Administration ASSESSMENT/PLAN: 48F w/ pmhx of HTN, NIDDM, polysubstance abuse (heroine, MJ), DVT (s/p IVC filter), peripheral neuropathy presented to the ED after a heroin overdose. #Heroin overdose -neurochecks/seizure, aspiration, fall precautions -Monitor for withdrawal symptoms -patient wants to go to detox/rehab: call placed to [facility] awaiting call back #Hx of Cdiff -Isolation precautions -Cont Vanc 125 PO q6H -Consider ID consult since pt still complaining of water/mucus diarrhea despite almost completing full PO Vanc regimen #CKD; BUN/Cr 37/3.1 -Dr Pace saw patient yesterday AM; -recommended aggressive IV hydration and to hold BP meds at this time -Cr this AM is 1.4 from 3.1 on arrival #NIDDM -Hold home DM meds -BGMs/ISS ACHS #HTN Holding BP meds at this time given patients hypotension #Hx of DVT; s/p IVC placement Cont home meds: Eliquis 2.5 BID #Depression/Anxiety Cont home med: Lexapro 5 QD, Seroquel 50 HS #Prophylaxis -Currently on Eliquis 2.5 BID Problem List - Problems (1) Overdose of heroin Code(s): T40.1X1A - POISONING BY HEROIN, ACCIDENTAL (UNINTENTIONAL), INIT ENCNTR (2) ANASTASIA (acute kidney injury) Code(s): N17.9 - ACUTE KIDNEY FAILURE, UNSPECIFIED (3) CHF exacerbation Code(s): I50.9 - HEART FAILURE, UNSPECIFIED Qualifiers: Heart failure type: unspecified Qualified Code(s): I50.9 - Heart failure, unspecified (4) Hypotension Code(s): I95.9 - HYPOTENSION, UNSPECIFIED Qualifiers: Hypotension type: unspecified hypotension type Qualified Code(s): I95.9 - Hypotension, unspecified
[2018-09-17] MEDS ORDERED: PT OWN MED DRAWER 7, Y5N ONE (10:31)
[2018-09-17] MEDS: ESCITALOPRAM OXALATE 10 MG TABLET (FP) PO SCH (10:32)
[2018-09-17] MEDS: APIXABAN 2.5 MG TABLET PO SCH (10:32)
[2018-09-17 11:21] VITALS: BP 166/85
--- NOTE | 2018-09-17 12:07 | DS ---
Physical Exam: SUBJECTIVE: Patient seen and examined at bedside- patient is lethargic stating that she still feels very weak and achy and having diarrhea OBJECTIVE: Vital Signs Period Temp Pulse Resp BP Sys/Puente Pulse Ox Last 24 Hr 97.9 F-98.5 F 81-110 12-20 99-166/60-85 95-98 PHYSICAL EXAM GENERAL: The patient is slightly lethargic and somnolent EYES:PEERLA; EOMI: no scleral icterus . NECK: no JVD; no lymphadenopathy. LUNGS: CTA B/L; no rales, rhonchi or wheezing HEART: Regular rate and rhythm, S1, S2 without murmur, rub or gallop. ABDOMEN: Soft, obese, , nondistended, normoactive bowel sounds, no guarding, no rebound, no hepatosplenomegaly, no masses. EXTREMITIES: 2+ pulses, warm, well-perfused, no edema. . PSYCH: Normal mood, normal affect. SKIN: Warm, dry, normal turgor, no rashes or lesions noted LABS Laboratory Results - last 24 hr 09/16/18 09/16/18 09/16/18 16:56 18:00 21:29 WBC RBC Hgb Hct MCV MCH MCHC RDW Plt Count MPV Absolute Neuts (auto) Neutrophils % Lymphocytes % Monocytes % Eosinophils % Basophils % Nucleated RBC % Sodium 138 Potassium 3.8 Chloride 108 H Carbon Dioxide 20 L Anion Gap 10 BUN 36 H Creatinine 2.0 H Creat Clearance w eGFR 26.82 POC Glucometer 141 131 Random Glucose 136 H Calcium 7.9 L Phosphorus Magnesium Total Bilirubin 0.3 AST 67 H ALT 62 H Alkaline Phosphatase 78 Total Protein 6.3 L Albumin 3.3 L Urine Color Urine Appearance Urine pH Ur Specific [place] Urine Protein Urine Glucose (UA) Urine Ketones Urine Blood Urine Nitrite Urine Bilirubin Urine Urobilinogen Ur Leukocyte Esterase Opiates Screen Methadone Screen Barbiturate Screen Phencyclidine Screen Ur Amphetamines Screen MDMA (Ecstasy) Screen Benzodiazepines Screen Cocaine Screen U Marijuana (THC) Screen 09/17/18 09/17/18 09/17/18 01:50 01:50 05:30 WBC RBC Hgb Hct MCV MCH MCHC RDW Plt Count MPV Absolute Neuts (auto) Neutrophils % Lymphocytes % Monocytes % Eosinophils % Basophils % Nucleated RBC % Sodium 141 Potassium 3.5 Chloride 111 H Carbon Dioxide 22 Anion Gap 8 BUN 27 H Creatinine 1.4 H Creat Clearance w eGFR 40.48 POC Glucometer Random Glucose 100 Calcium 8.1 L Phosphorus 4.0 Magnesium 2.0 Total Bilirubin AST ALT Alkaline Phosphatase Total Protein Albumin Urine Color Straw Urine Appearance Clear Urine pH 7.0 D Ur Specific [place] 1.005 L Urine Protein Negative Urine Glucose (UA) Negative Urine Ketones Negative Urine Blood Negative Urine Nitrite Negative Urine Bilirubin Negative Urine Urobilinogen Negative Ur Leukocyte Esterase Negative Opiates Screen Positive A* Methadone Screen Negative Barbiturate Screen Negative Phencyclidine Screen Negative Ur Amphetamines Screen Negative MDMA (Ecstasy) Screen Negative Benzodiazepines Screen Negative Cocaine Screen Negative U Marijuana (THC) Screen Positive A* 09/17/18 09/17/18 05:30 06:25 WBC 9.8 RBC 3.06 L Hgb 9.5 L Hct 27.4 L MCV 89.6 MCH 30.9 MCHC 34.5 RDW 14.3 Plt Count 179 D MPV 8.8 Absolute Neuts (auto) 6.6 Neutrophils % 67.7 Lymphocytes % 20.5 D Monocytes % 10.4 H Eosinophils % 1.1 D Basophils % 0.3 Nucleated RBC % 0 Sodium Potassium Chloride Carbon Dioxide Anion Gap BUN Creatinine Creat Clearance w eGFR POC Glucometer 102 Random Glucose Calcium Phosphorus Magnesium Total Bilirubin AST ALT Alkaline Phosphatase Total Protein Albumin Urine Color Urine Appearance Urine pH Ur Specific [place] Urine Protein Urine Glucose (UA) Urine Ketones Urine Blood Urine Nitrite Urine Bilirubin Urine Urobilinogen Ur Leukocyte Esterase Opiates Screen Methadone Screen Barbiturate Screen Phencyclidine Screen Ur Amphetamines Screen MDMA (Ecstasy) Screen Benzodiazepines Screen Cocaine Screen U Marijuana (THC) Screen HOSPITAL COURSE: Date of Admission:09/15/18 48 y/o female PMH of heroin abuse, HTN, DM presented to the ED aftwr having a heroin OD. patient said she snorted 2 bags of heroin and her mother found her on the floor she was unresponsive and her mother called EMS and she was brought to the hospital. she recievd narcan twice and she was brought back. Head CT was negative. she had an elevated WBC on arrival in addition to a Cr of 3.1 she was given IV fluids- she was seen by nephrologhist who recommended aggressive IV hydration and her Cr improved. she was discharged to [facility] once medically stable. Date of Discharge: 09/17/18 Minutes to complete discharge: 39 Discharge Summary Reason For Visit: CLOSTRIDIUM DIFFICILE INFECTION,OPIOD OVERDOSE Condition: Stable - Instructions Diet, Activity, Other Instructions: You came to the emergency department after overdosing on heroin at home. You are being transferred to the detox program at [facility]. Please resume all of your home medications Please follow up with your primary care physician within one week Please follow up with Dr. Pace the police chief deputy within one week Please refrain from heroin or any other drug use *if you begin to experience any chest pains, shortness of breath, nausea/ vomiting please return to the emergency room immediately Referrals: Doreen Kahn MD [Primary Care Provider] - 1 Week Alejandro Pace MD [Staff Physician] - 1 Week Disposition: TRANSFER ACUTE CARE/OTHER HOSP - Home Medications Comprehensive Discharge Medication List: Ambulatory Orders Pregabalin [Lyrica] 100 mg PO TID 10/02/16 traZODone HCL [Desyrel -] 100 mg PO HS 02/13/18 Quetiapine Fumarate [Seroquel -] 50 mg PO HS #30 tablet 05/17/18 Escitalopram Oxalate [Lexapro -] 5 mg PO DAILY 08/06/18 Amlodipine Besylate 10 mg PO DAILY #30 tablet 08/18/18 Apixaban [Eliquis] 2.5 mg PO BID #60 tablet 08/18/18 Bacitracin - [Bacitracin Topical Ointment -] 1 applic TP DAILY #1 tube 08/18/18 Labetalol HCl [Normodyne -] 400 mg PO BID #120 tablet 08/18/18 Sitagliptin Phosphate [Januvia] 100 mg PO DAILY #30 tablet 08/18/18 Vancomycin HCl 125 mg PO Q6H 10 Days #40 capsule 09/01/18 Problem List - Problems (1) Overdose of heroin Code(s): T40.1X1A - POISONING BY HEROIN, ACCIDENTAL (UNINTENTIONAL), INIT ENCNTR (2) ANASTASIA (acute kidney injury) Code(s): N17.9 - ACUTE KIDNEY FAILURE, UNSPECIFIED (3) CHF exacerbation Code(s): I50.9 - HEART FAILURE, UNSPECIFIED Qualifiers: Heart failure type: unspecified Qualified Code(s): I50.9 - Heart failure, unspecified (4) Hypotension Code(s): I95.9 - HYPOTENSION, UNSPECIFIED Qualifiers: Hypotension type: unspecified hypotension type Qualified Code(s): I95.9 - Hypotension, unspecified This patient is new to me today: No Emergency Visit: Yes ED Registration Date: 09/15/18 Care time: The patient presented to the Emergency Department on the above date and was hospitalized for further evaluation of their emergent condition. Critical Care patient: No - Discharge Referral Referred to [facility] Med P.C.: No
== END 2018-09-17 11:50 | disposition other institution (70) | DRG 816 ==
LOC: JER 14:35 → JERBED 18:08
PROVIDERS: ADMIT Internal Medicine; ATTEND Internal Medicine
DX: T40.1X1A Poisoning by heroin, accidental (unintentional), initial encounter (principal); E11.42 Type 2 diabetes mellitus with diabetic polyneuropathy; I95.9 Hypotension, unspecified; I13.0 Hypertensive heart and chronic kidney disease with heart failure and stage 1 through stage 4 chronic kidney disease, or unspecified chronic kidney disease; I50.9 Heart failure, unspecified; E11.22 Type 2 diabetes mellitus with diabetic chronic kidney disease; E66.01 Morbid (severe) obesity due to excess calories; Z68.41 Body mass index [BMI] 40.0-44.9, adult; K52.9 Noninfective gastroenteritis and colitis, unspecified; Z86.718 Personal history of other venous thrombosis and embolism; N18.9 Chronic kidney disease, unspecified; F12.10 Cannabis abuse, uncomplicated; F11.10 Opioid abuse, uncomplicated; F32.9 Major depressive disorder, single episode, unspecified; F41.9 Anxiety disorder, unspecified; Z79.01 Long term (current) use of anticoagulants; Y92.89 Other specified places as the place of occurrence of the external cause; Z79.84 Long term (current) use of oral hypoglycemic drugs
CPT/HCPCS: 36415; 71045-TC-FY; 74176-TC; 80048; 80053; 80307; 81003; 81015; 82962; 83735; 84100; 84702; 84703; 85025; 93005; 93010; 99285-25; J7030

== ENCOUNTER 2018-09-17 13:49 | Inpatient (IN) | payer OTHER ==
[2018-09-17 18:12] VITALS: BMI 41.5
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
[2018-09-17] MEDS ORDERED: LOPERAMIDE HCL 2 MG CAPSULE PO PRN (18:29)
[2018-09-17] MEDS ORDERED: P-EPHED 60MG/TRIPROLIDI 2.5MG TABLET PO PRN (18:29)
[2018-09-17] MEDS ORDERED: guaiFENesin/D-METHORPHAN HB 10 ML UNIT-DOSE CUPS PO PRN (18:29)
[2018-09-17] MEDS ORDERED: MAG HYDROX/AL HYDROX/SIMETH 30 ML UNIT-DOSE CUP PO PRN (18:29)
[2018-09-17] MEDS ORDERED: MENTHOL/PHENOL 1 EACH UD MM PRN (18:29)
[2018-09-17] MEDS ORDERED: MAGNESIUM HYDROX 2400MG/30ML ORAL SUSPENSION 30 ML CUP PO PRN (18:29)
[2018-09-17] MEDS ORDERED: MAGNESIUM CITRATE 300 ML BOTTLE PO PRN (18:29)
[2018-09-17] MEDS ORDERED: ACETAMINOPHEN 325 MG TABLET (FP) PO PRN (18:29)
[2018-09-17] MEDS ORDERED: LABETALOL HCL 100 MG TABLET (FP) ONE (21:56)
[2018-09-17] MEDS ORDERED: TUBERCULIN PPD 5 TU/0.1ML VIAL ID ONE (21:57)
[2018-09-17] MEDS ORDERED: traZODone HCL 100 MG TABLET (FP) PO SCH (22:00)
[2018-09-17] MEDS ORDERED: THIAMINE HCL 100 MG TABLET (FP) PO SCH (22:00)
[2018-09-17] MEDS ORDERED: QUEtiapine FUMARATE 50 MG TABLET PO SCH (22:00)
[2018-09-17] MEDS ORDERED: MELATONIN 5 MG TABLETS PO PRN (22:00)
[2018-09-17] MEDS: PREGABALIN 50 MG CAPSULE PO SCH (22:05)
[2018-09-17] MEDS: LABETALOL HCL 200 MG TABLET (FP) PO SCH (22:05)
[2018-09-17] MEDS: APIXABAN 2.5 MG TABLET PO SCH (22:06)
[2018-09-17] MEDS: VANCOMYCIN 250 MG/5 ML ORAL SOLUTION PO SCH (23:25)
[2018-09-18] MEDS: PREGABALIN 50 MG CAPSULE PO SCH ×2 (06:38→13:18)
[2018-09-18] MEDS: VANCOMYCIN 250 MG/5 ML ORAL SOLUTION PO SCH ×2 (06:38→11:56)
[2018-09-18] MEDS: INSULIN SLIDING SCALE (NOVOLOG) 1 VIAL SQ SCH ×2 (06:41→16:40)
[2018-09-18] MEDS ORDERED: sitaGLIPtin PHOSPHATE 100 MG TABLET (FP) PO SCH (07:00)
[2018-09-18 07:10] VITALS: TEMP 97.9
[2018-09-18 09:05] VITALS: BP 135/80; PULSE 97
[2018-09-18] MEDS: LABETALOL HCL 200 MG TABLET (FP) PO SCH (09:14)
[2018-09-18] MEDS: APIXABAN 2.5 MG TABLET PO SCH (09:14)
[2018-09-18] MEDS ORDERED: BACITRACIN 0.9 GM PACKET TP SCH (10:00)
[2018-09-18] MEDS ORDERED: amLODIPine BESYLATE 10 MG TABLET (FP) PO SCH (10:00)
[2018-09-18] MEDS ORDERED: ESCITALOPRAM OXALATE 10 MG TABLET (FP) PO SCH (10:00)
[2018-09-18] MEDS ORDERED: PRENATAL VITAMINS W/ FOLIC ACID TABLET (FP) PO SCH (10:00)
--- NOTE | 2018-09-18 15:21 | PN ---
[facility] Progress Note Note: Patient was transported to the [facility] ED for opioid overdose on 09/15/2018. At that time, she was also diagnosed with C-DIFF based on symptoms (diarrhea) and history. Patient was previously hospitalized at [facility] for C-DIFF (was discharged 09/01/2018 from [facility] on vancomycin for 10 days). Patient was held in the ED for 2 days (09/15 to 09/17) awaiting an isolation room at the [facility]. She was transferred to [facility] on the evening of 09/17/2018. Nursing staff reports patient had 2 episodes of foul smelling diarrhea today. Isolation precautions were ordered. The patient was informed of the need for isolation and agreed. Isolation precautions were reviewed with the nursing staff who are obtaining the necessary isolation precaution equipment.
--- NOTE | 2018-09-18 16:40 | PN ---
[facility] Progress Note Note: PT ADMITTED TO REHAB ON 09/17/18 FROM [facility] ER WITH A NURSING REPORT OF FOUL SMELLING STOOL X 2. HX OF C.DIFFICILE AND OPIOID OVERDOSE. DISCUSSED WITH JIM PEREZ RE: ISOLATION PRECAUTIONS AND AVAILABLE RESOURCE HERE IN [facility]. SHE WANTS TO CONSULT WITH INFECTIOUS DISEASE DOCTOR AND GET BACK TO THIS MEAT MANAGER. AWAITING HER CALL. DR. MESA WAS MADE AWARE OF SITUATION AND DIRECTED TO CALL DR. SHERIDAN AT [facility] FOR A DIRECT ADMISSION TO A UNIT BED SUITED FOR CONTACT ISOLATION. DR MESA IN CONSULTATION WITH [facility] INFORMED MEAT MANAGER AT ABOUT 4:52 P.M THAT PT HAS A BED AVAILABLE IN ROOM 827 ISOLATION FOR DIRECT ADMISSION TO DR. STOUT WHO HAS BEEN SPOKEN TO ABOUT THE CASE. Vital Signs (72 hours) 09/17/18 09/17/18 09/18/18 17:24 18:34 00:30 Temperature 96.8 F L Pulse Rate 98 H 109 H Respiratory 18 18 Rate Blood Pressure 164/108 H 160/108 H 09/18/18 09/18/18 09/18/18 07:09 07:49 09:05 Temperature 97.9 F 97.9 F Pulse Rate 89 87 97 H Respiratory 18 18 Rate Blood Pressure 154/104 H 125/80 135/80 Laboratory Tests 09/18/18 09/18/18 06:40 17:11 POC Glucometer 112 108 SAW PREVIOUS LABS DONE IN [facility] ED IN THE SYSTEM(SEE LABS). 5:15 P.M: PLAN: SAW PT IN ROOM EATING AND INFORMED ABOUT NECESSITY TO TRANSFER TO APPROPRIATE FACILITY. DISCHARGE PT TO DIRECT ADMISSION TO ISOLATION ROOM IN [facility]. PT WILL BE TAKEN BY AMBULANCE TO [facility] FOR DIRECT ADMISSION. PT IS AGREEABLE TO POC.
[2018-09-18 20:00] LABS: URINE APPEARANCE CLEAR; URINE BILIRUBIN NEGATIVE (<2.0 mg/dL); URINE COLOR LTYELLOW; URINE GLUCOSE (UA) 1+ (NEGATIVE); URINE KETONE NEGATIVE (NEGATIVE); URINE LEUK ESTERASE NEGATIVE (NEGATIVE); URINE NITRITE NEGATIVE (NEGATIVE); URINE PROTEIN NEGATIVE (NEGATIVE); URINE UROBILINOGEN NEGATIVE mg/dL (0.2-1.0)
== END 2018-09-18 18:27 | DRG 772 ==
LOC: YASAS 13:49 → Y3E 18:34
PROVIDERS: ADMIT Neuromusculoskeletal Medicine & OMM; ATTEND Neuromusculoskeletal Medicine & OMM
PROC: HZ42ZZZ Group Counseling for Substance Abuse Treatment, Cognitive-Behavioral (ICD-10-PCS; principal; 2018-09-17)
DX: F11.23 Opioid dependence with withdrawal (principal); F12.20 Cannabis dependence, uncomplicated; F17.210 Nicotine dependence, cigarettes, uncomplicated; F41.9 Anxiety disorder, unspecified; F32.9 Major depressive disorder, single episode, unspecified; I11.0 Hypertensive heart disease with heart failure; I50.9 Heart failure, unspecified; I25.10 Atherosclerotic heart disease of native coronary artery without angina pectoris; M54.5 Low back pain; G89.29 Other chronic pain; A04.72 Enterocolitis due to Clostridium difficile, not specified as recurrent; E11.9 Type 2 diabetes mellitus without complications; E66.01 Morbid (severe) obesity due to excess calories; Z68.41 Body mass index [BMI] 40.0-44.9, adult; Z86.711 Personal history of pulmonary embolism; Z86.718 Personal history of other venous thrombosis and embolism; Z95.828 Presence of other vascular implants and grafts
CPT/HCPCS: 36415; 81003; 82962; 86593

== ENCOUNTER 2018-09-18 18:56 | Inpatient (IN) | payer OTHER ==
[2018-09-18] MEDS ORDERED: ACETAMINOPHEN/CAFFEINE/BUTALBITAL 1 TAB PO PRN (22:04)
[2018-09-18] MEDS: INSULIN SLIDING SCALE (NOVOLOG) 1 VIAL SQ SCH (22:41)
[2018-09-18] MEDS: APIXABAN 2.5 MG TABLET PO SCH (22:47)
--- NOTE | 2018-09-18 22:48 | HP ---
CHIEF COMPLAINT:diarrhea PCP:Dr. Tapia HISTORY OF PRESENT ILLNESS: Patient is a 48 year old female with past medical history of HTN, NIDDM, CHF, DVT (s/p IVC filter, on Eliquis), peripheral neuropathy and polysubstance abuse , presented from [facility] after being recently discharged for rehab due to foul smelling stools. Given history of C.difficile infection and unavailability of isolation beds, patient was transferred back to [facility] for direct admission. Patient was recently admitted (09/15/18) after being found to be unresponsive from heroin overdose. EMS was called at that time, Narcan was given and patient subsequently became alert and responsive. She was brought to [facility] for further management and once medically stable, was discharged to [facility] to continue with detox. On her previous admission (08/28/18), patient reported to have multiple episodes of diarrhea. Stool was positive for C.diff infection and patient was started on Vancomycin 125mg q6. Today, patient reports headache and chest pain, saying "chest compressions" were done to her 3 days ago by EMS when she was found unresponsive. She also notes having at least 5 episodes of loose watery stools daily in the last few days. Otherwise, she denies fever, chills, dizziness, nausea, vomiting, SOB, palpitations, abdominal pain, urinary symptoms. Recent Travel: denies PAST MEDICAL HISTORY: HTN NIDDM CHF DVT (s/p IVC filter, on Eliquis) polysubstance abuse PAST SURGICAL HISTORY: lap cholecystectomy prolapsed bladder R ankle repair IVC placement Social History: Smokinpack per week [id number] Alcohol:denies Drugs: smokes marijuana daily, heroin Previous Utox positive for MDMA, marijuana, barbiturates Family History: Mother - ovarian CA Father - DM, EtOH abuse Allergies ondansetron [From Zofran] Adverse Reaction (Severe, Verified 09/17/18 17:48) prolonged qt interval HOME MEDICATIONS: Home Medications Medication Instructions Recorded Pregabalin [Lyrica] 100 mg PO TID 10/02/16 traZODone HCL [Desyrel -] 100 mg PO HS 02/13/18 Quetiapine Fumarate [Seroquel -] 50 mg PO HS #30 tablet 05/17/18 Escitalopram Oxalate [Lexapro -] 5 mg PO DAILY 08/06/18 Amlodipine Besylate 10 mg PO DAILY #30 tablet 08/18/18 Apixaban [Eliquis] 2.5 mg PO BID #60 tablet 08/18/18 Bacitracin - [Bacitracin Topical 1 applic TP DAILY #1 tube 08/18/18 Ointment -] Labetalol HCl [Normodyne -] 400 mg PO BID #120 tablet 08/18/18 Sitagliptin Phosphate [Januvia] 100 mg PO DAILY #30 tablet 08/18/18 Vancomycin HCl 125 mg PO Q6H 10 Days #40 capsule 09/01/18 REVIEW OF SYSTEMS CONSTITUTIONAL: Absent: fever, chills, diaphoresis, generalized weakness, malaise, loss of appetite, weight change HEENT: Absent: rhinorrhea, nasal congestion, throat pain, throat swelling, difficulty swallowing, mouth swelling, ear pain, eye pain, visual changes CARDIOVASCULAR: chest pain Absent: syncope, palpitations, irregular heart rate, lightheadedness, peripheral edema RESPIRATORY: Absent: cough, shortness of breath, dyspnea with exertion, orthopnea, wheezing, stridor, hemoptysis GASTROINTESTINAL:diarrhea Absent: abdominal pain, abdominal distension, nausea, vomiting, constipation, melena, hematochezia GENITOURINARY: Absent: dysuria, frequency, urgency, hesitancy, hematuria, flank pain, genital pain MUSCULOSKELETAL: Absent: myalgia, arthralgia, joint swelling, back pain, neck pain SKIN: Absent: rash, itching, pallor HEMATOLOGIC/IMMUNOLOGIC: Absent: easy bleeding, easy bruising, lymphadenopathy, frequent infections ENDOCRINE: Absent: unexplained weight gain, unexplained weight loss, heat intolerance, cold intolerance NEUROLOGIC: headache Absent: focal weakness or paresthesias, dizziness, unsteady gait, seizure, mental status changes, bladder or bowel incontinence PSYCHIATRIC: Absent: anxiety, depression, suicidal or homicidal ideation, hallucinations. PHYSICAL EXAMINATION GENERAL: Awake, alert, and fully oriented, in no acute distress. HEAD: Normal with no signs of trauma. EYES: PERRLA, EOMI, sclera anicteric, conjunctiva clear. EARS, NOSE, THROAT: Ears normal, oropharynx clear without exudates. Dry mucous membranes. NECK: Normal range of motion, supple without lymphadenopathy, JVD, or masses. CHEST: +tenderness to palpation, bilateral LUNGS: Breath sounds equal, clear to auscultation bilaterally. HEART: Regular rate and rhythm, normal S1 and S2 without murmur, rub or gallop. ABDOMEN: Soft, nontender, not distended, normoactive bowel sounds. MUSCULOSKELETAL: Normal range of motion at all joints. No bony deformities or tenderness. No CVA tenderness. UPPER EXTREMITIES: 2+ pulses, warm, well-perfused. No peripheral edema. LOWER EXTREMITIES: 2+ pulses, warm, well-perfused, trace edema. NEUROLOGICAL: Cranial nerves II-XII intact. Motor strength 5/5, sensation intact. Normal speech. Normal gait. PSYCHIATRIC: Cooperative. Good eye contact. Appropriate mood and affect. SKIN: Warm, dry, normal turgor. ASSESSMENT/PLAN: Patient is a 48 year old female with past medical history of HTN, NIDDM, CHF, DVT (s/p IVC filter, on Eliquis), peripheral neuropathy and polysubstance abuse , presented from [facility] after being recently discharged for rehab due to foul smelling stools. #Diarrhea, may be 2/2 C. Diff infection vs opioid withdrawal -Stool (08/28/18): presumptive positive C. Diff -Has been on PO Vancomycin since then. Questionable compliance on discharge -Will continue Vancomycin 125mg PO q6h -Isolation precautions -ID consult. #Polysubstance abuse -Neuro checks, seizure precautions -Aspiration precautions, fall risk -Monitor for withdrawal symptoms. -wax specialist consult. #CKD -Monitor renal function -Encourage increased oral fluid intake #NIDDM -Hold Januvia 100mg -Insulin sliding scale implemented -BGM ACHS -Pregabalin 100mg TID for peripheral neuropathy #Hypertension -Labetalol 400mg BID -Amlodipine 10mg daily #Hx of DVT -Continue Eliquis 2.5mg BID #Depression/Anxiety -Continue Lexapro 5mg daily -Seroquel 50mg Po HS #FEN -Not on any standing fluids -Routine bmp monitoring -Diabetic/sodium controlled diet #Prophylaxis -On Eliquis 2.5mg BID #Disposition -full code -med-surg Visit type - Emergency Visit Emergency Visit: Yes ED Registration Date: 09/18/18 Care time: The patient presented to the Emergency Department on the above date and was hospitalized for further evaluation of their emergent condition. - New Patient This patient is new to me today: Yes Date on this admission: 09/20/18 - Critical Care Critical Care patient: No
[2018-09-19] MEDS: VANCOMYCIN 250 MG/5 ML ORAL SOLUTION PO SCH ×4 (00:06→18:47)
--- NOTE | 2018-09-19 01:48 | PN ---
Teaching Attending Note Name of Resident: Nita Joseph ATTENDING PHYSICIAN STATEMENT I saw and evaluated the patient. I reviewed the resident's note and discussed the case with the resident. I agree with the resident's findings and plan as documented. SUBJECTIVE: Seen and examined; please refer to resident note for further historical information. Briefly, this is a 48 y/o female well-known to the medicine service (this being her forth admission in 2018) with a PMH of polysubstance abuse, psych, renal stones, DVT (eliquis, filter), uncontrolled HTN with recent admit last month for hypertensive urgency, recent Cdif+ 08/2018 and was treated with a brief course of PO Vancomycin (was started with tx 09/01 with a 10 day course of PO Vancomycin 125 q6h which would have been completed 07/10. She was readmitted 09/15 for heroin OD and PO Vancomycin was continued; CT abdomen was checked for distention which showed absolutely no acute pathology, and discharged on 09/17 to [facility] on the PO vanco. She complained of loose stools , per documentation, several times when on the vancomycin. There was never repeat testing; she should have completed the course on 09/10 and this would technically be day 17 of a planned 10 day treatment. She had some loose BM over there that was worse than her normal loose stool and was sent back here as there was no isolation rooms. She is afebrile and hemodynamicallly stable. 10 sys ROS done and negative aside from HPI PMH, PSH, Social hx, Family hx reviewed Medication list reviewed; pending reconciliation OBJECTIVE: VS, labs, imaging reviewed NAD, AAO, resting in bed NC AT EOMI PERRLA Legs unchanged from prior visit with me, if not slightly better RRR s1/2 no mgr Slight diffuse discomfort to palpation with normal BS and no distention CN2-12 wnl, no fnd Normal mood, appropriate behavior ASSESSMENT AND PLAN: Patient is a 48 y/o female presenting from [facility] for diarrhea; she was recently discharged. 1) Acute Diarrhea -She has many reasons to potentially have diarrheal illness (involving her polysubstance abuse/detox as last use 72 hours ago putting her in the window, other medical, etc.) and would have already been appropriately treated for Cdiff. Can recheck PCR and consult ID. Check lactoferrin, stool WBC, stool cx, O and P (given that this is now somewhat chronic). 2) DVT/history of PE with IVC filter and on lovenox -No acute issues; continue home meds with Eliquis (see prior heme consults) -Diagnosed with extensive bilateral DVTs in 2015; found to have a L-popliteal DVT 11/2017. 3) Chronic LE Ulcer -Known from prior admits; no recent changes. No recent imaging. Would be at risk for deep infection but ESR completely unremarkable so will check plain film but less likely osteo. 4) NIDDM -Uncontrolled on prior admits -Hold home metformin; place on SSI 5) HTN -Continue home medications 6) Psychiatric History -Continue home meds 7) HLD -Nonacute; followup outpatient 8) Polysubstance abuse -Clerical Adviser; offer rehab as still +Utox. Off suboxone x2 weeks so will hold. 9) Morbid Obesity -Clerical Adviser when clinically appropriate; consider referral for bariatric surgery assessment.
[2018-09-19] MEDS ORDERED: amLODIPine BESYLATE 10 MG TABLET (FP) PO ONE ×2 (06:10→06:30)
[2018-09-19] MEDS: PREGABALIN 100 MG CAPSULE PO SCH ×3 (06:41→21:36)
[2018-09-19] MEDS: INSULIN SLIDING SCALE (NOVOLOG) 1 VIAL SQ SCH ×4 (06:42→21:38)
--- NOTE | 2018-09-19 08:20 | PN ---
Physical Exam: SUBJECTIVE: Patient seen and examined at bedside- patient states she is still having diarrhea however denies blood in diarrhea- denies CP/SOB/N/V OBJECTIVE: Vital Signs Period Temp Pulse Resp BP Sys/Puente Pulse Ox Last 24 Hr 98.8 F-99.4 F 84-88 18-20 147-167/88-105 96 GENERAL: The patient is awake, alert, and fully oriented, in no acute distress. EYES: PEERLA; EOMI; no scleral icterus NECK: no JVD; no lymphadenopathy LUNGS: CTA B/L; no rales, rhonchi or wheezing. HEART: Regular rate and rhythm, S1, S2 without murmur, rub or gallop. ABDOMEN: Soft, nontender, nondistended, normoactive bowel sounds, no guarding, no rebound, no hepatosplenomegaly, no masses. EXTREMITIES: 2+ pulses, warm, well-perfused, trace edema. PSYCH: Normal mood, normal affect. SKIN: Warm, dry, normal turgor, no rashes or lesions noted Laboratory Results - last 24 hr 09/18/18 09/19/18 22:38 05:51 POC Glucometer 104 99 Active Medications Generic Name Dose Route Start Last Admin Trade Name Freq PRN Reason Stop Dose Admin Acetaminophen/Butalbital/Caffeine 1 tablet 09/18/18 22:04 Fioricet - PO Q6H PRN HEADACHE Amlodipine Besylate 10 mg 09/20/18 10:00 Norvasc - PO DAILY NI Apixaban 2.5 mg 09/18/18 22:00 09/18/18 22:47 Eliquis - PO 2.5 mg BID NI Administration Bacitracin 1 applic 09/19/18 10:00 Bacitracin - TP DAILY NI Escitalopram Oxalate 5 mg 09/19/18 10:00 Lexapro - PO DAILY NI Insulin Aspart 1 vial 09/18/18 22:00 09/19/18 06:42 Novolog Vial Sliding Scale - SQ Not Given ACHS NI Protocol Labetalol HCl 400 mg 09/19/18 10:00 Normodyne - PO BID NI Pregabalin 100 mg 09/19/18 06:00 09/19/18 06:41 Lyrica - PO 100 mg TID NI Administration Quetiapine Fumarate 50 mg 09/19/18 22:00 Seroquel - PO HS NI Vancomycin HCl 125 mg 09/19/18 00:00 09/19/18 06:41 Vancomycin Oral Solution PO 125 mg Q6HPO [facility] Administration ASSESSMENT/PLAN: Patient is a 48 year old female with past medical history of HTN, NIDDM, CHF, DVT (s/p IVC filter, on Eliquis), peripheral neuropathy and polysubstance abuse , presented from [facility] after being recently discharged for rehab due to foul smelling stools. #Diarrhea, may be 2/2 C. Diff infection vs opioid withdrawal -Stool (08/28/18): presumptive positive C. Diff -Has been on PO Vancomycin since then. Questionable compliance on discharge -Will continue Vancomycin 125mg PO q6h -c diff PCR pending; stool studies pending -Isolation precautions -ID consult. -NS @75mls #Polysubstance abuse -Neuro checks, seizure precautions -Aspiration precautions, fall risk -Monitor for withdrawal symptoms. -selling specialist consult. #CKD -Monitor renal function -NS @75mls #NIDDM -Hold Januvia 100mg -Insulin sliding scale implemented -BGM ACHS -Pregabalin 100mg TID for peripheral neuropathy #Hypertension -Labetalol 400mg BID -Amlodipine 10mg daily #Hx of DVT -Continue Eliquis 2.5mg BID #Depression/Anxiety -Continue Lexapro 5mg daily -Seroquel 50mg Po HS #FEN -NS @75mls/hr -Routine bmp monitoring -Diabetic/sodium controlled diet #Prophylaxis -On Eliquis 2.5mg BID Problem List - Problems (1) ANASTASIA (acute kidney injury) Code(s): N17.9 - ACUTE KIDNEY FAILURE, UNSPECIFIED (2) CHF exacerbation Code(s): I50.9 - HEART FAILURE, UNSPECIFIED Qualifiers: Heart failure type: unspecified Qualified Code(s): I50.9 - Heart failure, unspecified (3) DVT (deep venous thrombosis) Code(s): I82.409 - ACUTE EMBOLISM AND THOMBOS UNSP DEEP VN UNSP LOWER EXTREMITY (4) Diarrhea Code(s): R19.7 - DIARRHEA, UNSPECIFIED Qualifiers: Diarrhea type: unspecified type Qualified Code(s): R19.7 - Diarrhea, unspecified Visit type - Emergency Visit Emergency Visit: Yes ED Registration Date: 09/18/18 Care time: The patient presented to the Emergency Department on the above date and was hospitalized for further evaluation of their emergent condition. - New Patient This patient is new to me today: Yes Date on this admission: 09/19/18 - Critical Care Critical Care patient: No
[2018-09-19] MEDS ORDERED: amLODIPine BESYLATE 10 MG TABLET (FP) PO SCH ×2 (10:00)
[2018-09-19] MEDS ORDERED: PT OWN MED DRAWER 7, Y5N ONE (10:39)
[2018-09-19] MEDS: ESCITALOPRAM OXALATE 10 MG TABLET (FP) PO SCH (10:52)
[2018-09-19] MEDS: LABETALOL HCL 200 MG TABLET (FP) PO SCH ×2 (10:52→21:36)
[2018-09-19] MEDS: APIXABAN 2.5 MG TABLET PO SCH ×2 (10:53→21:36)
[2018-09-19] MEDS: BACITRACIN 15 GM TUBE TOPICAL OINTMENT TP SCH (10:54)
--- NOTE | 2018-09-19 11:47 | PN ---
Teaching Attending Note Name of Resident: Bea Avery ATTENDING PHYSICIAN STATEMENT I saw and evaluated the patient. I reviewed the resident's note and discussed the case with the resident. I agree with the resident's findings and plan as documented. SUBJECTIVE: No fever or chills. no Abd pain. she reports no resolution of her diarrhea x 1 month despite compliance with her v po vanco treatment . denies hematochezia,. stool varies between liquid and loose. No fevers at home. OBJECTIVE: NAD CV: RRR, no MRG Lungs: CTAB Abd: soft, NT, ND, NL BS . Ext: no edema. L big toe ulcer with a scab and no discharge Assessment/Plan: 48 y/o lady with h/o HTN, DM , depression /anxiety, PE/DVT, s/p IVCF, substance abuse ,chronic lower ext ulcers, recent c diff , Recent ANASTASIA ( ATN ) requiring HD, and frequent hospitalizations who was dc to [facility] for rehab on 09/17 and was sent back on 09/18 due to persistent diarrhea 1- Diarrhea: etiology could still be c diff in setting possible non compliance with treatment . diarrhea did not stop or change x 1 month so heroin withdrawal is not likely at this point . parasites in DDx, also non infectious etiologies ( collagenous colitis , IDb, ISb, secretory diarrhea , ...ect) - repeat c difff pending - check CBC - check stool studies and cx - cont po vanco - follow ID recs. - if c diff neg, might need colonoscopy 2- H/o ANASTASIA , ? CKD: path report from previous admission reviewed: ATN. old nephro/theum notes reviewed. No concern for vasculitis - check BMP . - start IVF given persistent diarrhea 3- Heroin abuse, last use on 09/15 - no signs of withdrawal - consult dr. May 4- HTN: cont labetalol and norvasc 5- Chronic DVT: h/o IVCF. - cont eliquis 2.5 BID 6- DM: SSI. hol dpo meds 7- Psych; Cont lexapro and seroquel. 8- L big toe ulcer. need repeat MRI in 2 months
[2018-09-19 13:02] LABS: HEMATOCRIT 35.1 % (32.4-45.2); HEMOGLOBIN 12.3 GM/dL (10.7-15.3); MCH 30.6 pg (25.7-33.7); MEAN CELL VOLUME 87.4 fl (80-96); MEAN PLT VOLUME 8.1 fl (7.5-11.1); NEUT % 71.8 % (42.8-82.8); PLATELET COUNT 299 K/MM3 (134-434); RBC 4.02 M/mm3 (3.60-5.2); RDW 13.4 % (11.6-15.6); WHITE BLOOD COUNT 9.5 K/mm3 (4.0-10.0)
[2018-09-19 13:03] LABS: BASO % 0.8 % (0-2.0); EOS % 1.4 % (0-4.5); LYMPH % 18.7 % (8-40); MONO % 7.3 % (3.8-10.2)
[2018-09-19 13:32] LABS: ALBUMIN 3.6 g/dl (3.4-5.0); ALK PHOS 69 U/L (45-117); ANION GAP 10 MMOL/L (8-16); BILIRUBIN,TOTAL 0.6 mg/dL (0.2-1); BLOOD UREA NITROGEN 10 mg/dL (7-18); CALCIUM 8.9 mg/dL (8.5-10.1); CHLORIDE 106 mmol/L (98-107); CO2 26 mmol/L (21-32); CREATININE 0.8 mg/dL (0.55-1.3); GLUCOSE,RANDOM 124 mg/dL (74-106); PHOSPHOROUS 3.2 mg/dL (2.5-4.9); POTASSIUM 3.1 mmol/L (3.5-5.1); SGOT/AST 9 U/L (15-37); SGPT/ALT 34 U/L (13-61); SODIUM 142 mmol/L (136-145); TOT PROT 6.8 g/dl (6.4-8.2)
[2018-09-19] MEDS: SODIUM CHLORIDE 1,000 ML IV SCH (13:54)
--- NOTE | 2018-09-19 13:57 | CON.ID ---
Consult Consult Specialty:: infectious diseases Referred by:: hospitalist Reason for Consultation:: weakness,dirrhoea - History of Present Illness Chief Complaint: dirrhoea History of Present Illness: 48 year old female with past medical history of HTN, NIDDM, CHF, DVT (s/p IVC filter, on Eliquis), peripheral neuropathy and polysubstance abuse, presented from [facility] after being recently discharged for rehab due to foul smelling stools.. Patient was recently admitted (09/15/18) after being found to be unresponsive from heroin overdose. EMS was called at that time, Narcan was given and patient subsequently became alert and responsive. She was brought to [facility] for further management and once medically stable, was discharged to [facility] to continue with detox. patient was started on vanco orally for cdiff in the past patient mentions that she has been having dirrhoea again and now when asked says it is very bad. clinically the patient looks a bit stable - History Source History Provided By: Patient Limitations to Obtaining History: Poor Historian - Past Medical History BRANCH OFFICER: Yes: Other (mild frontal RO's since she started nicotine patch ; occ dizziness) Cardio/Vascular: Yes: HTN, Hyperlipdemia, Other (morbid obesity) Pulmonary: Yes: Sleep Apnea (risk factors for CRESENCIO; ?never worked up for this) Gastrointestinal: Yes: GERD Renal/: Yes: Renal Calculi ...LMP: 03/02/15 Psych: Yes: Addictions, Anxiety, Depression Musculoskeletal: Yes: Chronic low back pain Endocrine: Yes: Diabetes Mellitus (though not yet diagnosed, pt has multiple risk for DM, has had elevated glucose x 2 this admission, and strong family hx of DM. HGBA1c PENDING.) - Past Surgical History Past Surgical History: Yes: Cholecystectomy, Colonoscopy - Alcohol/Substance Use Hx Alcohol Use: No - Smoking History Smoking history: Unknown if ever smoked Have you smoked in the past 12 months: No Aproximately how many cigarettes per day: 5 - Social History Usual Living Arrangement: With Parent ADL: Independent History of Recent Travel: No Home Medications - Allergies Allergies/Adverse Reactions: Allergies Allergy/AdvReac Type Severity Reaction Status Date / Time ondansetron [From Zofran] AdvReac Severe Verified 09/17/18 17:48 - Home Medications Home Medications: Ambulatory Orders Pregabalin [Lyrica] 100 mg PO TID 10/02/16 traZODone HCL [Desyrel -] 100 mg PO HS 02/13/18 Quetiapine Fumarate [Seroquel -] 50 mg PO HS #30 tablet 05/17/18 Escitalopram Oxalate [Lexapro -] 5 mg PO DAILY 08/06/18 Amlodipine Besylate 10 mg PO DAILY #30 tablet 08/18/18 Apixaban [Eliquis] 2.5 mg PO BID #60 tablet 08/18/18 Bacitracin - [Bacitracin Topical Ointment -] 1 applic TP DAILY #1 tube 08/18/18 Labetalol HCl [Normodyne -] 400 mg PO BID #120 tablet 08/18/18 Sitagliptin Phosphate [Januvia] 100 mg PO DAILY #30 tablet 08/18/18 Vancomycin HCl 125 mg PO Q6H 10 Days #40 capsule 09/01/18 Family Disease History - Family Disease History Family Disease History: Diabetes: Father (DM, etoh), Mother, Brother, Heart Disease: Grandparent (massive CVA in his early 60s) Review of Systems - Review of Systems Constitutional: reports: No Symptoms Eyes: reports: No Symptoms HENT: reports: No Symptoms Neck: reports: No Symptoms Cardiovascular: reports: No Symptoms Respiratory: reports: No Symptoms Gastrointestinal: reports: Diarrhea Genitourinary: reports: No Symptoms Musculoskeletal: reports: No Symptoms Integumentary: reports: No Symptoms Neurological: reports: No Symptoms Endocrine: reports: No Symptoms Hematology/Lymphatic: reports: No Symptoms Psychiatric: reports: No Symptoms Physical Exam Vital Signs: Vital Signs Temperature 98.2 F 09/19/18 13:41 Pulse Rate 76 09/19/18 13:41 Respiratory Rate 18 09/19/18 13:41 Blood Pressure 126/71 09/19/18 13:41 O2 Sat by Pulse Oximetry (%) 97 09/19/18 09:00 Constitutional: Yes: Well Nourished, No Distress, Calm Eyes: Yes: Conjunctiva Clear Cardiovascular: Yes: Regular Rate and Rhythm Respiratory: Yes: Regular, CTA Bilaterally Gastrointestinal: Yes: Normal Bowel Sounds, Soft Musculoskeletal: Yes: WNL Extremities: Yes: WNL Neurological: Yes: Alert, Oriented Psychiatric: Yes: Alert, Oriented Labs: CBC, BMP 09/19/18 12:10 09/19/18 12:10 Assessment/Plan 48 year old female with past medical history of HTN, NIDDM, CHF, DVT (s/p IVC filter, on Eliquis), peripheral neuropathy and polysubstance abuse, presented from [facility] after being recently discharged for rehab due to foul smelling stools. dirrhoea polysubstance abuse ckd dm htn we will await all the stool studies the question is if all the studies come negative then we have to think why the patient is having dirrhoea clinically patient looks stable i agree with oral vanco rest as per the team
[2018-09-19] MEDS ORDERED: POTASSIUM CHLORIDE TABS 20 MEQ TABLET.ER (FP) PO ONE (14:30)
[2018-09-19 14:38] LABS: ANISOCYTOSIS 0; HELMET CELLS 0; HOWELL-JOLLY BODIES 0; MACROCYTOSIS 0; OVALOCYTE 0; PLATELET ESTIMATE NORMAL; ROULEAU 0; SICKELED CELLS 0; TARGET CELLS 0; TEAR DROP CELLS 0; TOXIC GRANULATION 0
--- NOTE | 2018-09-19 15:05 | PN ---
S Progress Note Note: pt seen bedside , consult requested for MARYA . Pt known to service, transferred from rehab for isolation room re : C.diff colitis , seen by ID , stool cultures pending. Discussed w/ pt at length , reports she is not interested in MAT at this time, declined further intervention. SW aware .
[2018-09-19] MEDS ORDERED: INSULIN (NOVOLOG) ASPART 100 UNITS/ML 10ML VIAL ONE (20:41)
[2018-09-19] MEDS ORDERED: QUEtiapine FUMARATE 25 MG TABLET (FP) ONE (20:41)
[2018-09-19] MEDS: QUEtiapine FUMARATE 50 MG TABLET PO SCH (21:36)
[2018-09-20] MEDS: VANCOMYCIN 250 MG/5 ML ORAL SOLUTION PO SCH ×4 (00:10→19:15)
[2018-09-20] MEDS: SODIUM CHLORIDE 1,000 ML IV SCH ×3 (05:25→14:04)
[2018-09-20] MEDS: PREGABALIN 100 MG CAPSULE PO SCH ×3 (05:26→21:40)
[2018-09-20] MEDS: INSULIN SLIDING SCALE (NOVOLOG) 1 VIAL SQ SCH ×5 (06:02→23:14)
[2018-09-20 07:37] LABS: HEMATOCRIT 33.7 % (32.4-45.2); HEMOGLOBIN 11.9 GM/dL (10.7-15.3); MCH 31.1 pg (25.7-33.7); MCHC 35.4 g/dl (32.0-36.0); MEAN CELL VOLUME 87.9 fl (80-96); MEAN PLT VOLUME 8.3 fl (7.5-11.1); PLATELET COUNT 309 K/MM3 (134-434); RBC 3.83 M/mm3 (3.60-5.2); RDW 13.7 % (11.6-15.6); WHITE BLOOD COUNT 10.4 K/mm3 (4.0-10.0)
[2018-09-20 08:16] LABS: ANION GAP 12 MMOL/L (8-16); BLOOD UREA NITROGEN 14 mg/dL (7-18); CALCIUM 8.8 mg/dL (8.5-10.1); CHLORIDE 108 mmol/L (98-107); CO2 22 mmol/L (21-32); CREATININE 0.9 mg/dL (0.55-1.3); GLUCOSE,RANDOM 96 mg/dL (74-106); MAGNESIUM 1.8 mg/dL (1.8-2.4); PHOSPHOROUS 3.4 mg/dL (2.5-4.9); SODIUM 142 mmol/L (136-145)
[2018-09-20] MEDS ORDERED: POTASSIUM CHLORIDE TABS 20 MEQ TABLET.ER (FP) PO ONE (09:00)
--- NOTE | 2018-09-20 09:18 | PN ---
Physical Exam: SUBJECTIVE: Patient seen and examined at bedside- no acute events overnight patient still having multiple episodes of diarrhea but feels better- denies CP/ SOB/N/V OBJECTIVE: Vital Signs Period Temp Pulse Resp BP Sys/Puente Pulse Ox Last 24 Hr 98.1 F-98.7 F 76-96 18-20 126-153/71-94 97 GENERAL: The patient is awake, alert, and fully oriented, in no acute distress. EYES: PEERLA: EOMI no scleral icterus NECK: no JVD; no lymphadenoapthy LUNGS: CTA B/L; no rales, rhonchi or wheezing HEART: Regular rate and rhythm, S1, S2 without murmur, rub or gallop. ABDOMEN: Soft, slight tenderness; +BS EXTREMITIES: 2+ pulses, warm, well-perfused, no edema. PSYCH: Normal mood, normal affect. SKIN: Warm, dry, normal turgor, no rashes or lesions noted Laboratory Results - last 24 hr 09/19/18 09/19/18 09/19/18 12:10 12:10 12:20 WBC 9.5 RBC 4.02 Hgb 12.3 Hct 35.1 D MCV 87.4 MCH 30.6 MCHC 35.0 RDW 13.4 Plt Count 299 D MPV 8.1 Absolute Neuts (auto) 6.8 Neutrophils % 71.8 Lymphocytes % 18.7 Neutrophils % (Manual) 72.0 Band Neutrophils % 0.0 Lymphocytes % (Manual) 18.0 D Monocytes % 7.3 Eosinophils % 1.4 Basophils % 0.8 Monocytes % (Manual) 4 Eosinophils % (Manual) 4.0 D Basophils % (Manual) 0.0 Myelocytes % (Man) 0 Promyelocytes % (Man) 0 Nucleated RBC % 0 Blast Cells % (Manual) 0 Metamyelocytes 2 D Hypochromia 0 Toxic Granulation 0 Dohle Bodies 0 Platelet Estimate Normal Polychromasia 0 Poikilocytosis 0 Basophilic Stippling 0 Anisocytosis 0 Microcytosis 0 Macrocytosis 0 Spherocytes 0 Sickle Cells 0 Target Cells 0 Tear Drop Cells 0 Ovalocytes 0 Stomatocytes 0 Helmet Cells 0 Andrews-Wall Bodies 0 [place] Rings 0 Corey Cells 0 Acanthocytes (Spur) 0 Rouleaux 0 Fragmented RBCs 0 Schistocytes 0 Sodium 142 Potassium 3.1 L Chloride 106 Carbon Dioxide 26 Anion Gap 10 BUN 10 Creatinine 0.8 Creat Clearance w eGFR > 60 POC Glucometer 137 Random Glucose 124 H Calcium 8.9 Phosphorus 3.2 Magnesium 2.0 Total Bilirubin 0.6 AST 9 L ALT 34 Alkaline Phosphatase 69 Total Protein 6.8 Albumin 3.6 09/19/18 09/19/18 09/20/18 16:41 21:37 05:28 WBC RBC Hgb Hct MCV MCH MCHC RDW Plt Count MPV Absolute Neuts (auto) Neutrophils % Lymphocytes % Neutrophils % (Manual) Band Neutrophils % Lymphocytes % (Manual) Monocytes % Eosinophils % Basophils % Monocytes % (Manual) Eosinophils % (Manual) Basophils % (Manual) Myelocytes % (Man) Promyelocytes % (Man) Nucleated RBC % Blast Cells % (Manual) Metamyelocytes Hypochromia Toxic Granulation Dohle Bodies Platelet Estimate Polychromasia Poikilocytosis Basophilic Stippling Anisocytosis Microcytosis Macrocytosis Spherocytes Sickle Cells Target Cells Tear Drop Cells Ovalocytes Stomatocytes Helmet Cells Andrews-Wall Bodies [place] Rings Corey Cells Acanthocytes (Spur) Rouleaux Fragmented RBCs Schistocytes Sodium Potassium Chloride Carbon Dioxide Anion Gap BUN Creatinine Creat Clearance w eGFR POC Glucometer 121 104 100 Random Glucose Calcium Phosphorus Magnesium Total Bilirubin AST ALT Alkaline Phosphatase Total Protein Albumin 09/20/18 09/20/18 06:00 06:00 WBC 10.4 H RBC 3.83 Hgb 11.9 Hct 33.7 MCV 87.9 MCH 31.1 MCHC 35.4 RDW 13.7 Plt Count 309 MPV 8.3 Absolute Neuts (auto) Neutrophils % Lymphocytes % Neutrophils % (Manual) Band Neutrophils % Lymphocytes % (Manual) Monocytes % Eosinophils % Basophils % Monocytes % (Manual) Eosinophils % (Manual) Basophils % (Manual) Myelocytes % (Man) Promyelocytes % (Man) Nucleated RBC % Blast Cells % (Manual) Metamyelocytes Hypochromia Toxic Granulation Dohle Bodies Platelet Estimate Polychromasia Poikilocytosis Basophilic Stippling Anisocytosis Microcytosis Macrocytosis Spherocytes Sickle Cells Target Cells Tear Drop Cells Ovalocytes Stomatocytes Helmet Cells Andrews-Wall Bodies [place] Rings Mobile Cells Acanthocytes (Spur) Rouleaux Fragmented RBCs Schistocytes Sodium 142 Potassium 3.0 L Chloride 108 H Carbon Dioxide 22 Anion Gap 12 BUN 14 Creatinine 0.9 Creat Clearance w eGFR > 60 POC Glucometer Random Glucose 96 Calcium 8.8 Phosphorus 3.4 Magnesium 1.8 Total Bilirubin AST ALT Alkaline Phosphatase Total Protein Albumin Active Medications Generic Name Dose Route Start Last Admin Trade Name Freq PRN Reason Stop Dose Admin Acetaminophen/Butalbital/Caffeine 1 tablet 09/18/18 22:04 Fioricet - PO Q6H PRN HEADACHE Amlodipine Besylate 10 mg 09/20/18 10:00 Norvasc - PO DAILY NI Apixaban 2.5 mg 09/18/18 22:00 09/19/18 21:36 Eliquis - PO 2.5 mg BID NI Administration Bacitracin 1 applic 09/19/18 10:00 09/19/18 10:54 Bacitracin - TP Not Given DAILY NI Escitalopram Oxalate 5 mg 09/19/18 10:00 09/19/18 10:52 Lexapro - PO 5 mg DAILY NI Administration Sodium Chloride 1,000 mls @ 75 mls/hr 09/19/18 11:15 09/20/18 05:25 Normal Saline - IV 75 mls/hr ASDIR NI Administration Insulin Aspart 1 vial 09/18/18 22:00 09/20/18 06:02 Novolog Vial Sliding Scale - SQ Not Given ACHS NI Protocol Labetalol HCl 400 mg 09/19/18 10:00 09/19/18 21:36 Normodyne - PO 400 mg BID NI Administration Pregabalin 100 mg 09/19/18 06:00 09/20/18 05:26 Lyrica - PO 100 mg TID NI Administration Quetiapine Fumarate 50 mg 09/19/18 22:00 09/19/18 21:36 Seroquel - PO 50 mg HS NI Administration Vancomycin HCl 125 mg 09/19/18 00:00 09/20/18 05:25 Vancomycin Oral Solution PO 125 mg Q6HPO NI Administration ASSESSMENT/PLAN: Patient is a 48 year old female with past medical history of HTN, NIDDM, CHF, DVT (s/p IVC filter, on Eliquis), peripheral neuropathy and polysubstance abuse , presented from [facility] after being recently discharged for rehab due to foul smelling stools. #Diarrhea, may be 2/2 C. Diff infection vs opioid withdrawal -Stool (08/28/18): presumptive positive C. Diff -Has been on PO Vancomycin since then. Questionable compliance on discharge -Will continue Vancomycin 125mg PO q6h -c diff PCR pending; stool studies pending -if c diff negative- will get GI on board for possible colonscopy -Isolation precautions -ID consult. -NS @75mls #Polysubstance abuse -Neuro checks, seizure precautions -Aspiration precautions, fall risk -Monitor for withdrawal symptoms. -data integrity specialist consult- patient does not want rehab/detox at this time #CKD -Monitor renal function -NS @75mls #NIDDM -Hold Januvia 100mg -Insulin sliding scale implemented -BGM ACHS -Pregabalin 100mg TID for peripheral neuropathy #Hypertension -Labetalol 400mg BID -Amlodipine 10mg daily #Hx of DVT -Continue Eliquis 2.5mg BID #Depression/Anxiety -Continue Lexapro 5mg daily -Seroquel 50mg Po HS Problem List - Problems (1) ANASTASIA (acute kidney injury) Code(s): N17.9 - ACUTE KIDNEY FAILURE, UNSPECIFIED (2) CHF exacerbation Code(s): I50.9 - HEART FAILURE, UNSPECIFIED Qualifiers: Heart failure type: unspecified Qualified Code(s): I50.9 - Heart failure, unspecified (3) DVT (deep venous thrombosis) Code(s): I82.409 - ACUTE EMBOLISM AND THOMBOS UNSP DEEP VN UNSP LOWER EXTREMITY (4) Diarrhea Code(s): R19.7 - DIARRHEA, UNSPECIFIED Qualifiers: Diarrhea type: unspecified type Qualified Code(s): R19.7 - Diarrhea, unspecified Visit type - Emergency Visit Emergency Visit: Yes ED Registration Date: 09/18/18 Care time: The patient presented to the Emergency Department on the above date and was hospitalized for further evaluation of their emergent condition. - New Patient This patient is new to me today: No - Critical Care Critical Care patient: No
--- NOTE | 2018-09-20 09:25 | PN ---
Progress Note, Physician History of Present Illness: says she is little better still with loose stools according to her looks comfortable - Current Medication List Current Medications: Active Medications Acetaminophen/Butalbital/Caffeine (Fioricet -) 1 tablet PO Q6H PRN PRN Reason: HEADACHE Amlodipine Besylate (Norvasc -) 10 mg PO DAILY [facility] Apixaban (Eliquis -) 2.5 mg PO BID [facility] Last Admin: 09/19/18 21:36 Dose: 2.5 mg Bacitracin (Bacitracin -) 1 applic TP DAILY [facility] Last Admin: 09/19/18 10:54 Dose: Not Given Escitalopram Oxalate (Lexapro -) 5 mg PO DAILY [facility] Last Admin: 09/19/18 10:52 Dose: 5 mg Sodium Chloride (Normal Saline -) 1,000 mls @ 75 mls/hr IV ASDIR [facility] Last Admin: 09/20/18 05:25 Dose: 75 mls/hr Insulin Aspart (Novolog Vial Sliding Scale -) 1 vial SQ ACHS [facility]; Protocol Last Admin: 09/20/18 06:02 Dose: Not Given Labetalol HCl (Normodyne -) 400 mg PO BID [facility] Last Admin: 09/19/18 21:36 Dose: 400 mg Pregabalin (Lyrica -) 100 mg PO TID [facility] Last Admin: 09/20/18 05:26 Dose: 100 mg Quetiapine Fumarate (Seroquel -) 50 mg PO HS [facility] Last Admin: 09/19/18 21:36 Dose: 50 mg Vancomycin HCl (Vancomycin Oral Solution) 125 mg PO Q6HPO [facility] Last Admin: 09/20/18 05:25 Dose: 125 mg - Objective Vital Signs: Vital Signs Temperature 98.3 F 09/20/18 09:15 Pulse Rate 96 H 09/20/18 09:15 Respiratory Rate 18 09/20/18 09:15 Blood Pressure 143/82 09/20/18 09:15 O2 Sat by Pulse Oximetry (%) 97 09/19/18 21:00 Constitutional: Yes: No Distress, Calm Cardiovascular: Yes: Regular Rate and Rhythm Respiratory: Yes: Regular, CTA Bilaterally Gastrointestinal: Yes: Normal Bowel Sounds, Soft Musculoskeletal: Yes: WNL Extremities: Yes: WNL Neurological: Yes: Alert, Oriented Psychiatric: Yes: Alert, Oriented Labs: CBC, BMP 09/20/18 06:00 09/20/18 06:00 Assessment/Plan 48 year old female with past medical history of HTN, NIDDM, CHF, DVT (s/p IVC filter, on Eliquis), peripheral neuropathy and polysubstance abuse, presented from [facility] after being recently discharged for rehab due to foul smelling stools. dirrhoea polysubstance abuse ckd dm htn continue current mgmt await for all studies await for cdiff results rest as per the team
[2018-09-20] MEDS ORDERED: PT OWN MED DRAWER 7, Y5N ONE (09:47)
[2018-09-20] MEDS: LABETALOL HCL 200 MG TABLET (FP) PO SCH ×2 (10:21→21:40)
[2018-09-20] MEDS: APIXABAN 2.5 MG TABLET PO SCH ×2 (10:21→21:40)
[2018-09-20] MEDS: ESCITALOPRAM OXALATE 10 MG TABLET (FP) PO SCH (10:21)
[2018-09-20] MEDS: amLODIPine BESYLATE 10 MG TABLET (FP) PO SCH (10:22)
[2018-09-20] MEDS: BACITRACIN 15 GM TUBE TOPICAL OINTMENT TP SCH (10:24)
--- NOTE | 2018-09-20 14:25 | PN ---
Teaching Attending Note Name of Resident: Bea Avery ATTENDING PHYSICIAN STATEMENT I saw and evaluated the patient. I reviewed the resident's note and discussed the case with the resident. I agree with the resident's findings and plan as documented. SUBJECTIVE: no fever or chills. has RLQ abd pain today. had many liquidy BMs yesterday. OBJECTIVE: NAD CV: RRR, no MRG Lungs: CTAB Abd: soft, TTP in suprapubic area and RLQ , ND, NL BS . Ext: no edema. L big toe ulcer with a scab and no discharge Assessment/Plan: 48 y/o lady with h/o HTN, DM , depression /anxiety, PE/DVT, s/p IVCF, substance abuse ,chronic lower ext ulcers, recent c diff , Recent ANASTASIA ( ATN ) requiring HD, and frequent hospitalizations who was dc to [facility] for rehab on 09/17 and was sent back on 09/18 due to persistent diarrhea 1- Diarrhea: wide differential but need to r/o c diff - follow c diff toxin - follow stool cx - cont po vanco - if no improvement , might need GI eval for colo - cont IVF 2- Heroin abuse, last use on 09/15 - no signs of withdrawal 3- HTN: cont labetalol and norvasc 4- Chronic DVT: h/o IVCF. - cont eliquis 2.5 BID 5- DM: SSI. hold po meds 6- Psych; Cont lexapro and seroquel. 7- L big toe ulcer. need repeat MRI in 2 months Dispo : [facility]
[2018-09-20] MEDS ORDERED: QUEtiapine FUMARATE 25 MG TABLET (FP) ONE (20:15)
[2018-09-20] MEDS: QUEtiapine FUMARATE 50 MG TABLET PO SCH (21:40)
[2018-09-20] MEDS ORDERED: LORazepam 1 MG TABLET ONE (22:09)
[2018-09-20] MEDS ORDERED: LORazepam 1 MG TABLET PO ONE (22:10)
[2018-09-21] MEDS: VANCOMYCIN 250 MG/5 ML ORAL SOLUTION PO SCH ×4 (00:30→17:35)
[2018-09-21] MEDS: PREGABALIN 100 MG CAPSULE PO SCH ×3 (06:19→21:12)
[2018-09-21] MEDS: SODIUM CHLORIDE 1,000 ML IV SCH ×2 (06:37→18:38)
[2018-09-21] MEDS: INSULIN SLIDING SCALE (NOVOLOG) 1 VIAL SQ SCH ×4 (06:41→21:12)
[2018-09-21 08:14] LABS: ANION GAP 9 MMOL/L (8-16); BLOOD UREA NITROGEN 17 mg/dL (7-18); CALCIUM 8.9 mg/dL (8.5-10.1); CHLORIDE 111 mmol/L (98-107); CO2 22 mmol/L (21-32); CREATININE 0.9 mg/dL (0.55-1.3); GLUCOSE,RANDOM 100 mg/dL (74-106); MAGNESIUM 1.7 mg/dL (1.8-2.4); PHOSPHOROUS 4.3 mg/dL (2.5-4.9); POTASSIUM 3.2 mmol/L (3.5-5.1); SODIUM 142 mmol/L (136-145)
[2018-09-21 08:32] LABS: HEMATOCRIT 34.3 % (32.4-45.2); HEMOGLOBIN 11.6 GM/dL (10.7-15.3); MCH 29.8 pg (25.7-33.7); MCHC 33.8 g/dl (32.0-36.0); MEAN CELL VOLUME 88.2 fl (80-96); PLATELET COUNT 281 K/MM3 (134-434); RBC 3.89 M/mm3 (3.60-5.2); RDW 13.9 % (11.6-15.6); WHITE BLOOD COUNT 9.1 K/mm3 (4.0-10.0)
[2018-09-21] MEDS ORDERED: POTASSIUM CHLORIDE TABS 20 MEQ TABLET.ER (FP) PO ONE (08:50)
[2018-09-21] MEDS ORDERED: PT OWN MED DRAWER 7, Y5N ONE (09:10)
[2018-09-21] MEDS: APIXABAN 2.5 MG TABLET PO SCH ×2 (09:13→21:11)
[2018-09-21] MEDS: ESCITALOPRAM OXALATE 10 MG TABLET (FP) PO SCH (09:14)
[2018-09-21] MEDS: LABETALOL HCL 200 MG TABLET (FP) PO SCH ×2 (09:15→21:12)
[2018-09-21] MEDS: amLODIPine BESYLATE 10 MG TABLET (FP) PO SCH (09:15)
--- NOTE | 2018-09-21 09:54 | PN ---
Physical Exam: SUBJECTIVE: Patient seen and examined at bedside- states she had around 4-5 bowel movements overnight but not blood- states she is still having abdominal pain for which she describes as crampy; she denies any CP/SOB/N/V fevers or chills OBJECTIVE: Vital Signs Period Temp Pulse Resp BP Sys/Puente Pulse Ox Last 24 Hr 98.1 F-98.8 F 76-96 18-20 130-155/82-100 97 GENERAL: The patient is awake, alert, and fully oriented, in no acute distress. EYES:PEERLA; EOMI;no scleral icterus NECK: no JVD; no lymphadenopathy LUNGS:CTA B/L; no rales, rhonchi or wheezing. HEART: Regular rate and rhythm, S1, S2 without murmur, rub or gallop. ABDOMEN: Soft, slight tenderness upon palpation; + BS in all 4 quadrants. EXTREMITIES: 2+ pulses, warm, well-perfused, no edema. PSYCH: Normal mood, normal affect. SKIN: Warm, dry, normal turgor, no rashes or lesions noted Laboratory Results - last 24 hr 09/20/18 09/20/18 09/21/18 12:26 17:16 06:00 WBC 9.1 RBC 3.89 Hgb 11.6 Hct 34.3 MCV 88.2 MCH 29.8 MCHC 33.8 RDW 13.9 Plt Count 281 MPV 8.0 Sodium Potassium Chloride Carbon Dioxide Anion Gap BUN Creatinine Creat Clearance w eGFR POC Glucometer 124 108 Random Glucose Calcium Phosphorus Magnesium 09/21/18 09/21/18 06:00 06:20 WBC RBC Hgb Hct MCV MCH MCHC RDW Plt Count MPV Sodium 142 Potassium 3.2 L Chloride 111 H Carbon Dioxide 22 Anion Gap 9 BUN 17 Creatinine 0.9 Creat Clearance w eGFR > 60 POC Glucometer 108 Random Glucose 100 Calcium 8.9 Phosphorus 4.3 Magnesium 1.7 L Active Medications Generic Name Dose Route Start Last Admin Trade Name Freq PRN Reason Stop Dose Admin Acetaminophen/Butalbital/Caffeine 1 tablet 09/18/18 22:04 Fioricet - PO Q6H PRN HEADACHE Amlodipine Besylate 10 mg 09/20/18 10:00 09/21/18 09:15 Norvasc - PO 10 mg DAILY NI Administration Apixaban 2.5 mg 09/18/18 22:00 09/21/18 09:13 Eliquis - PO 2.5 mg BID NI Administration Bacitracin 1 applic 09/19/18 10:00 09/20/18 10:24 Bacitracin - TP 1 applic DAILY NI Administration Escitalopram Oxalate 5 mg 09/19/18 10:00 09/21/18 09:14 Lexapro - PO 5 mg DAILY NI Administration Sodium Chloride 1,000 mls @ 75 mls/hr 09/19/18 11:15 09/21/18 06:37 Normal Saline - IV 75 mls/hr ASDIR NI Administration Insulin Aspart 1 vial 09/18/18 22:00 09/21/18 06:41 Novolog Vial Sliding Scale - SQ Not Given ACHS NI Protocol Labetalol HCl 400 mg 09/19/18 10:00 09/21/18 09:15 Normodyne - PO 400 mg BID NI Administration Pregabalin 100 mg 09/19/18 06:00 09/21/18 06:19 Lyrica - PO 100 mg TID NI Administration Quetiapine Fumarate 50 mg 09/19/18 22:00 09/20/18 21:40 Seroquel - PO 50 mg HS NI Administration Vancomycin HCl 125 mg 09/19/18 00:00 09/21/18 06:19 Vancomycin Oral Solution PO 125 mg Q6HPO NI Administration ASSESSMENT/PLAN: Patient is a 48 year old female with past medical history of HTN, NIDDM, CHF, DVT (s/p IVC filter, on Eliquis), peripheral neuropathy and polysubstance abuse , presented from [facility] after being recently discharged for rehab due to foul smelling stools. #Diarrhea, may be 2/2 C. Diff infection vs opioid withdrawal -Will continue Vancomycin 125mg PO q6h -c diff PCR pending -shigella/salmonella prelim showing gram negative dez -f/u other stool studies -if c diff negative- will get GI on board for possible colonscopy -Isolation precautions -ID consult. -NS @75mls #Polysubstance abuse -Neuro checks, seizure precautions -Aspiration precautions, fall risk -Monitor for withdrawal symptoms. -environmental health specialist consult- patient does not want rehab/detox at this time #CKD -Cr 0.9 this AM -Monitor renal function -NS @75mls #NIDDM -Hold Januvia 100mg -Insulin sliding scale implemented -BGM ACHS -Pregabalin 100mg TID for peripheral neuropathy #Hypertension -Labetalol 400mg BID -Amlodipine 10mg daily #Hx of DVT -Continue Eliquis 2.5mg BID #Depression/Anxiety -Continue Lexapro 5mg daily -Seroquel 50mg Po HS Problem List - Problems (1) ANASTASIA (acute kidney injury) Code(s): N17.9 - ACUTE KIDNEY FAILURE, UNSPECIFIED (2) CHF exacerbation Code(s): I50.9 - HEART FAILURE, UNSPECIFIED Qualifiers: Heart failure type: unspecified Qualified Code(s): I50.9 - Heart failure, unspecified (3) DVT (deep venous thrombosis) Code(s): I82.409 - ACUTE EMBOLISM AND THOMBOS UNSP DEEP VN UNSP LOWER EXTREMITY (4) Diarrhea Code(s): R19.7 - DIARRHEA, UNSPECIFIED Qualifiers: Diarrhea type: unspecified type Qualified Code(s): R19.7 - Diarrhea, unspecified Visit type - Emergency Visit Emergency Visit: Yes ED Registration Date: 09/18/18 Care time: The patient presented to the Emergency Department on the above date and was hospitalized for further evaluation of their emergent condition. - New Patient This patient is new to me today: No - Critical Care Critical Care patient: No
[2018-09-21] MEDS ORDERED: INSULIN (NOVOLOG) ASPART 100 UNITS/ML 10ML VIAL ONE (11:33)
[2018-09-21] MEDS: BACITRACIN 15 GM TUBE TOPICAL OINTMENT TP SCH (11:39)
[2018-09-21 12:37] LABS: URINE APPEARANCE CLEAR; URINE BILIRUBIN NEGATIVE (<2.0 mg/dL); URINE COLOR LTYELLOW; URINE GLUCOSE (UA) NEGATIVE (NEGATIVE); URINE KETONE NEGATIVE (NEGATIVE); URINE LEUK ESTERASE NEGATIVE (NEGATIVE); URINE NITRITE NEGATIVE (NEGATIVE); URINE PROTEIN NEGATIVE (NEGATIVE); URINE UROBILINOGEN NEGATIVE mg/dL (0.2-1.0)
[2018-09-21] MEDS ORDERED: ACETAMINOPHEN 325 MG TABLET (FP) PO PRN (13:05)
--- NOTE | 2018-09-21 13:15 | PN ---
Teaching Attending Note Name of Resident: Bea Avery ATTENDING PHYSICIAN STATEMENT I saw and evaluated the patient. I reviewed the resident's note and discussed the case with the resident. I agree with the resident's findings and plan as documented. SUBJECTIVE: was anxious over night. No RO, no N/V. has diarrhea still . minimal abd pain OBJECTIVE: NAD CV: RRR, no MRG Lungs: CTAB Abd: soft, TTP in suprapubic area and RLQ , ND, NL BS . Ext: no edema. L big toe ulcer with a scab and no discharge Assessment/Plan: 48 y/o lady with h/o HTN, DM , depression /anxiety, PE/DVT, s/p IVCF, substance abuse ,chronic lower ext ulcers, recent c diff , Recent ANASTASIA ( ATN ) requiring HD, and frequent hospitalizations who was dc to [facility] for rehab on 09/17 and was sent back on 09/18 due to persistent diarrhea 1- Diarrhea: wide differential but need to r/o c diff - follow c diff toxin - follow final stool cx - cont po vanco - if no improvement , might need GI eval for colo - cont IVF 2- Heroin abuse, last use on 09/15 - no signs of withdrawal 3- HTN: cont labetalol and norvasc 4- Chronic DVT: h/o IVCF. - cont eliquis 2.5 BID 5- DM: SSI. hold po meds 6- Psych; Cont lexapro and seroquel. 7- L big toe ulcer. need repeat MRI in 2 months Dispo : [facility]
--- NOTE | 2018-09-21 14:38 | PN ---
Progress Note, Physician History of Present Illness: patient c/o of rt abd pain examining shows some tenderness on the rt side looks like superficial pain - Current Medication List Current Medications: Active Medications Acetaminophen (Tylenol -) 650 mg PO Q6H PRN PRN Reason: Fever Or Pain Last Admin: 09/21/18 13:17 Dose: 650 mg Acetaminophen/Butalbital/Caffeine (Fioricet -) 1 tablet PO Q6H PRN PRN Reason: HEADACHE Amlodipine Besylate (Norvasc -) 10 mg PO DAILY [facility] Last Admin: 09/21/18 09:15 Dose: 10 mg Apixaban (Eliquis -) 2.5 mg PO BID [facility] Last Admin: 09/21/18 09:13 Dose: 2.5 mg Bacitracin (Bacitracin -) 1 applic TP DAILY [facility] Last Admin: 09/21/18 11:39 Dose: 1 applic Escitalopram Oxalate (Lexapro -) 5 mg PO DAILY [facility] Last Admin: 09/21/18 09:14 Dose: 5 mg Sodium Chloride (Normal Saline -) 1,000 mls @ 75 mls/hr IV ASDIR COUNT [facility]CLUDES [facility] Last Admin: 09/21/18 06:37 Dose: 75 mls/hr Insulin Aspart (Novolog Vial Sliding Scale -) 1 vial SQ ACHS COUNT [facility]CLUD[facility]; Protocol Last Admin: 09/21/18 11:39 Dose: Not Given Labetalol HCl (Normodyne -) 400 mg PO BID [facility] Last Admin: 09/21/18 09:15 Dose: 400 mg Pregabalin (Lyrica -) 100 mg PO TID [facility] Last Admin: 09/21/18 13:18 Dose: 100 mg Quetiapine Fumarate (Seroquel -) 50 mg PO HS COUNT [facility] Last Admin: 09/20/18 21:40 Dose: 50 mg Vancomycin HCl (Vancomycin Oral Solution) 125 mg PO Q6HPO [facility] Last Admin: 09/21/18 11:39 Dose: 125 mg - Objective Vital Signs: Vital Signs Temperature 98.4 F 09/21/18 13:46 Pulse Rate 77 09/21/18 13:46 Respiratory Rate 18 09/21/18 13:46 Blood Pressure 134/90 09/21/18 13:46 O2 Sat by Pulse Oximetry (%) 97 09/20/18 22:00 Constitutional: Yes: No Distress, Calm Cardiovascular: Yes: S1, S2 Respiratory: Yes: Regular, CTA Bilaterally Gastrointestinal: Yes: Normal Bowel Sounds, Soft Musculoskeletal: Yes: WNL Extremities: Yes: WNL Neurological: Yes: Alert, Oriented Psychiatric: Yes: Alert, Oriented Labs: CBC, BMP 09/21/18 06:00 09/21/18 06:00 Assessment/Plan 48 year old female with past medical history of HTN, NIDDM, CHF, DVT (s/p IVC filter, on Eliquis), peripheral neuropathy and polysubstance abuse, presented from [facility] after being recently discharged for rehab due to foul smelling stools. dirrhoea polysubstance abuse ckd dm htn continue current mgmt await for all studies await for cdiff results rest as per the team stool cx result noted
[2018-09-21] MEDS ORDERED: LORazepam 2 MG/ML SDV VIAL IM ONE (18:24)
[2018-09-21] MEDS ORDERED: QUEtiapine FUMARATE 25 MG TABLET (FP) ONE (21:01)
[2018-09-21] MEDS: QUEtiapine FUMARATE 50 MG TABLET PO SCH (21:12)
[2018-09-22] MEDS: VANCOMYCIN 250 MG/5 ML ORAL SOLUTION PO SCH ×4 (00:23→18:02)
[2018-09-22] MEDS: PREGABALIN 100 MG CAPSULE PO SCH ×3 (06:27→22:02)
[2018-09-22] MEDS: INSULIN SLIDING SCALE (NOVOLOG) 1 VIAL SQ SCH ×4 (06:28→22:03)
[2018-09-22 07:56] LABS: HEMATOCRIT 31.6 % (32.4-45.2); HEMOGLOBIN 10.9 GM/dL (10.7-15.3); MCH 30.6 pg (25.7-33.7); MCHC 34.7 g/dl (32.0-36.0); MEAN CELL VOLUME 88.3 fl (80-96); MEAN PLT VOLUME 7.9 fl (7.5-11.1); PLATELET COUNT 265 K/MM3 (134-434); RBC 3.57 M/mm3 (3.60-5.2); RDW 13.7 % (11.6-15.6); WHITE BLOOD COUNT 7.4 K/mm3 (4.0-10.0)
[2018-09-22 08:36] LABS: ANION GAP 10 MMOL/L (8-16); BLOOD UREA NITROGEN 18 mg/dL (7-18); CALCIUM 8.5 mg/dL (8.5-10.1); CHLORIDE 112 mmol/L (98-107); CO2 21 mmol/L (21-32); CREATININE 0.8 mg/dL (0.55-1.3); GLUCOSE,RANDOM 103 mg/dL (74-106); MAGNESIUM 1.8 mg/dL (1.8-2.4); PHOSPHOROUS 4.2 mg/dL (2.5-4.9); POTASSIUM 3.4 mmol/L (3.5-5.1); SODIUM 143 mmol/L (136-145)
[2018-09-22] MEDS ORDERED: PT OWN MED DRAWER 7, Y5N ONE (09:29)
[2018-09-22] MEDS: SODIUM CHLORIDE 1,000 ML IV SCH ×2 (09:36→23:19)
[2018-09-22] MEDS: LABETALOL HCL 200 MG TABLET (FP) PO SCH ×2 (09:38→22:02)
[2018-09-22] MEDS: ESCITALOPRAM OXALATE 10 MG TABLET (FP) PO SCH (09:38)
[2018-09-22] MEDS: amLODIPine BESYLATE 10 MG TABLET (FP) PO SCH (09:39)
[2018-09-22] MEDS: APIXABAN 2.5 MG TABLET PO SCH ×2 (09:39→22:02)
[2018-09-22] MEDS: BACITRACIN 15 GM TUBE TOPICAL OINTMENT TP SCH (09:40)
--- NOTE | 2018-09-22 13:17 | PN ---
Progress Note, Physician History of Present Illness: still with loose bowel movement pain in the abd rt side better - Current Medication List Current Medications: Active Medications Acetaminophen (Tylenol -) 650 mg PO Q6H PRN PRN Reason: Fever Or Pain Last Admin: 09/21/18 13:17 Dose: 650 mg Acetaminophen/Butalbital/Caffeine (Fioricet -) 1 tablet PO Q6H PRN PRN Reason: HEADACHE Amlodipine Besylate (Norvasc -) 10 mg PO DAILY [facility] Last Admin: 09/22/18 09:39 Dose: 10 mg Apixaban (Eliquis -) 2.5 mg PO BID [facility] Last Admin: 09/22/18 09:39 Dose: 2.5 mg Bacitracin (Bacitracin -) 1 applic TP DAILY [facility] Last Admin: 09/22/18 09:40 Dose: 1 applic Escitalopram Oxalate (Lexapro -) 5 mg PO DAILY [facility] Last Admin: 09/22/18 09:38 Dose: 5 mg Sodium Chloride (Normal Saline -) 1,000 mls @ 75 mls/hr IV ASDIR [facility] Last Admin: 09/22/18 09:36 Dose: 75 mls/hr Insulin Aspart (Novolog Vial Sliding Scale -) 1 vial SQ ACHS [facility]; Protocol Last Admin: 09/22/18 11:59 Dose: Not Given Labetalol HCl (Normodyne -) 400 mg PO BID [facility] Last Admin: 09/22/18 09:38 Dose: 400 mg Pregabalin (Lyrica -) 100 mg PO TID [facility] Last Admin: 09/22/18 06:27 Dose: 100 mg Quetiapine Fumarate (Seroquel -) 50 mg PO HS [facility] Last Admin: 09/21/18 21:12 Dose: 50 mg Vancomycin HCl (Vancomycin Oral Solution) 125 mg PO Q6HPO [facility] Last Admin: 09/22/18 12:01 Dose: 125 mg - Objective Vital Signs: Vital Signs Temperature 98.5 F 09/21/18 21:14 Pulse Rate 74 09/21/18 21:14 Respiratory Rate 16 09/21/18 21:14 Blood Pressure 134/86 09/21/18 21:14 O2 Sat by Pulse Oximetry (%) 97 09/21/18 21:00 Constitutional: Yes: Calm, Mild Distress, Obese Cardiovascular: Yes: Regular Rate and Rhythm Respiratory: Yes: Regular, CTA Bilaterally Gastrointestinal: Yes: Normal Bowel Sounds, Soft Musculoskeletal: Yes: WNL Extremities: Yes: WNL Neurological: Yes: Alert, Oriented Psychiatric: Yes: Alert, Oriented Labs: CBC, BMP 09/22/18 07:00 09/22/18 07:00 Assessment/Plan 48 year old female with past medical history of HTN, NIDDM, CHF, DVT (s/p IVC filter, on Eliquis), peripheral neuropathy and polysubstance abuse, presented from [facility] after being recently discharged for rehab due to foul smelling stools. dirrhoea polysubstance abuse ckd dm htn continue current mgmt await for all studies await for cdiff results rest as per the team stool cx normal
[2018-09-22] MEDS ORDERED: ALPRAZolam 0.25 MG TABLET PO ONE (13:45)
[2018-09-22] MEDS ORDERED: POTASSIUM CHLORIDE TABS 20 MEQ TABLET.ER (FP) PO ONE (16:44)
--- NOTE | 2018-09-22 16:44 | PN ---
Progress Note (short form) - Note Progress Note: Subjective: no fever or chills . No RO , RLQ abd pain. stool started to form. yesterday 7 Bms , today 2 Bms this am . very anxious Objective: Vital Signs: Last Vital Signs Temp Pulse Resp BP Pulse Ox 98 F 95 H 18 132/83 97 09/22/18 15:00 09/22/18 15:00 09/22/18 15:00 09/22/18 15:00 09/21/18 21:00 Laboratory Results - last 24 hr 09/21/18 09/21/18 09/22/18 16:40 20:46 06:09 WBC RBC Hgb Hct MCV MCH MCHC RDW Plt Count MPV Sodium Potassium Chloride Carbon Dioxide Anion Gap BUN Creatinine Creat Clearance w eGFR POC Glucometer 99 113 107 Random Glucose Calcium Phosphorus Magnesium 09/22/18 09/22/18 09/22/18 07:00 07:00 11:58 WBC 7.4 RBC 3.57 L Hgb 10.9 Hct 31.6 L MCV 88.3 MCH 30.6 MCHC 34.7 RDW 13.7 Plt Count 265 MPV 7.9 Sodium 143 Potassium 3.4 L Chloride 112 H Carbon Dioxide 21 Anion Gap 10 BUN 18 Creatinine 0.8 Creat Clearance w eGFR > 60 POC Glucometer 117 Random Glucose 103 Calcium 8.5 Phosphorus 4.2 Magnesium 1.8 Physical Exam: NAD CV: RRR, no MRG Lungs: CTAB Abd: soft, TTP in suprapubic area and RLQ , ND, NL BS . Ext: no edema. L big toe ulcer with a scab and no discharge Assessment/Plan: 48 y/o lady with h/o HTN, DM , depression /anxiety, PE/DVT, s/p IVCF, substance abuse ,chronic lower ext ulcers, recent c diff , Recent ANASTASIA ( ATN ) requiring HD, and frequent hospitalizations who was dc to [facility] for rehab on 09/17 and was sent back on 09/18 due to persistent diarrhea 1- Diarrhea: wide differential but need to r/o c diff - follow c diff toxin - final stool cx with no growth - cont po vanco - if no improvement ,or c diff neg then might need GI eval for colo - cont IVF 2- Heroin abuse, last use on 09/15 - no signs of withdrawal 3- HTN: cont labetalol and norvasc 4- Chronic DVT: h/o IVCF. - cont eliquis 2.5 BID 5- DM: SSI. hold po meds 6- Psych; Cont lexapro and seroquel. 7- L big toe ulcer. need repeat MRI in 2 months 8- anxiety : cont her psych meds, give xanax x 1 . requested psych eval Dispo : HLOC Visit type - Emergency Visit Emergency Visit: Yes ED Registration Date: 09/18/18 Care time: The patient presented to the Emergency Department on the above date and was hospitalized for further evaluation of their emergent condition. - New Patient This patient is new to me today: No - Critical Care Critical Care patient: No
[2018-09-22] MEDS ORDERED: QUEtiapine FUMARATE 25 MG TABLET (FP) ONE (20:05)
[2018-09-22] MEDS: QUEtiapine FUMARATE 50 MG TABLET PO SCH (22:03)
[2018-09-23] MEDS: INSULIN SLIDING SCALE (NOVOLOG) 1 VIAL SQ SCH ×4 (06:25→21:14)
[2018-09-23] MEDS: PREGABALIN 100 MG CAPSULE PO SCH ×3 (06:26→21:11)
[2018-09-23] MEDS: VANCOMYCIN 250 MG/5 ML ORAL SOLUTION PO SCH ×4 (06:26→17:53)
[2018-09-23] MEDS ORDERED: PT OWN MED DRAWER 7, Y5N ONE ×2 (07:04→09:44)
[2018-09-23] MEDS ORDERED: POTASSIUM CHLORIDE TABS 20 MEQ TABLET.ER (FP) PO ONE (07:25)
--- NOTE | 2018-09-23 08:27 | PN ---
Physical Exam: SUBJECTIVE: Patient seen and examined at bedside- no acute events overnight- only had 2 bowel moevements overnight which were soft but no diarrhea is still having abdominal pain and is anxious OBJECTIVE: Vital Signs Period Temp Pulse Resp BP Sys/Puente Pulse Ox Last 24 Hr 98 F-98.5 F 74-95 18-18 127-132/75-84 97 GENERAL: The patient is awake, alert, and fully oriented, in no acute distress. EYES: PEERLA EOMI no scleral icterus NECK: no JVD no ylmphadenopathy LUNGS:CTA B/L; no rales, rhonchi or wheezing HEART: Regular rate and rhythm, S1, S2 without murmur, rub or gallop. ABDOMEN: Soft, slight tenderness upon palpation. EXTREMITIES: 2+ pulses, warm, well-perfused, no edema. PSYCH: Normal mood, normal affect. SKIN: Warm, dry, normal turgor, no rashes or lesions noted Laboratory Results - last 24 hr 09/22/18 09/22/18 09/22/18 07:00 11:58 17:02 Sodium 143 Potassium 3.4 L Chloride 112 H Carbon Dioxide 21 Anion Gap 10 BUN 18 Creatinine 0.8 Creat Clearance w eGFR > 60 POC Glucometer 117 108 Random Glucose 103 Calcium 8.5 Phosphorus 4.2 Magnesium 1.8 09/23/18 09/23/18 05:20 06:25 Sodium Potassium 3.4 L Chloride Carbon Dioxide Anion Gap BUN Creatinine Creat Clearance w eGFR POC Glucometer 135 Random Glucose Calcium Phosphorus Magnesium Active Medications Generic Name Dose Route Start Last Admin Trade Name Freq PRN Reason Stop Dose Admin Acetaminophen 650 mg 09/21/18 13:05 09/21/18 13:17 Tylenol - PO 650 mg Q6H PRN Administration Fever Or Pain Acetaminophen/Butalbital/Caffeine 1 tablet 09/18/18 22:04 Fioricet - PO Q6H PRN HEADACHE Amlodipine Besylate 10 mg 09/20/18 10:00 09/22/18 09:39 Norvasc - PO 10 mg DAILY NI Administration Apixaban 2.5 mg 09/18/18 22:00 09/22/18 22:02 Eliquis - PO 2.5 mg BID NI Administration Bacitracin 1 applic 09/19/18 10:00 09/22/18 09:40 Bacitracin - TP 1 applic DAILY NI Administration Escitalopram Oxalate 5 mg 09/19/18 10:00 09/22/18 09:38 Lexapro - PO 5 mg DAILY NI Administration Sodium Chloride 1,000 mls @ 75 mls/hr 09/19/18 11:15 09/22/18 23:19 Normal Saline - IV 75 mls/hr ASDIR NI Administration Insulin Aspart 1 vial 09/18/18 22:00 09/23/18 06:25 Novolog Vial Sliding Scale - SQ Not Given ACHS NI Protocol Labetalol HCl 400 mg 09/19/18 10:00 09/22/18 22:02 Normodyne - PO 400 mg BID NI Administration Pregabalin 100 mg 09/19/18 06:00 09/23/18 06:26 Lyrica - PO 100 mg TID NI Administration Quetiapine Fumarate 50 mg 09/19/18 22:00 09/22/18 22:03 Seroquel - PO 50 mg HS NI Administration Vancomycin HCl 125 mg 09/19/18 00:00 09/23/18 06:26 Vancomycin Oral Solution PO 125 mg Q6HPO NI Administration ASSESSMENT/PLAN: Patient is a 48 year old female with past medical history of HTN, NIDDM, CHF, DVT (s/p IVC filter, on Eliquis), peripheral neuropathy and polysubstance abuse , presented from [facility] after being recently discharged for rehab due to foul smelling stools. #Diarrhea, may be 2/2 C. Diff infection vs opioid withdrawal -c diff negative -stoool cultures negative -f/u other stool studies -if c diff negative- will get GI on board for possible colonscopy -Isolation precautions -ID consult. -NS @75mls #Polysubstance abuse -Neuro checks, seizure precautions -Aspiration precautions, fall risk -Monitor for withdrawal symptoms. -critical care nurse specialist consult- patient does not want rehab/detox at this time #CKD -Cr 0.9 this AM -Monitor renal function -NS @75mls #NIDDM -Hold Januvia 100mg -Insulin sliding scale implemented -BGM ACHS -Pregabalin 100mg TID for peripheral neuropathy #Hypertension -Labetalol 400mg BID -Amlodipine 10mg daily #Hx of DVT -Continue Eliquis 2.5mg BID #Depression/Anxiety -Continue Lexapro 5mg daily -Seroquel 50mg Po HS dispo: transfer to rehab tomorrow Problem List - Problems (1) ANASTASIA (acute kidney injury) Code(s): N17.9 - ACUTE KIDNEY FAILURE, UNSPECIFIED (2) CHF exacerbation Code(s): I50.9 - HEART FAILURE, UNSPECIFIED Qualifiers: Heart failure type: unspecified Qualified Code(s): I50.9 - Heart failure, unspecified (3) DVT (deep venous thrombosis) Code(s): I82.409 - ACUTE EMBOLISM AND THOMBOS UNSP DEEP VN UNSP LOWER EXTREMITY (4) Diarrhea Code(s): R19.7 - DIARRHEA, UNSPECIFIED Qualifiers: Diarrhea type: unspecified type Qualified Code(s): R19.7 - Diarrhea, unspecified Visit type - Emergency Visit Emergency Visit: Yes ED Registration Date: 09/18/18 Care time: The patient presented to the Emergency Department on the above date and was hospitalized for further evaluation of their emergent condition. - New Patient This patient is new to me today: No - Critical Care Critical Care patient: No
[2018-09-23] MEDS: LABETALOL HCL 200 MG TABLET (FP) PO SCH ×2 (09:48→21:11)
[2018-09-23] MEDS: APIXABAN 2.5 MG TABLET PO SCH ×2 (09:48→21:11)
[2018-09-23] MEDS: ESCITALOPRAM OXALATE 10 MG TABLET (FP) PO SCH (09:48)
[2018-09-23] MEDS: amLODIPine BESYLATE 10 MG TABLET (FP) PO SCH (09:48)
--- NOTE | 2018-09-23 09:49 | PN ---
Progress Note, Physician History of Present Illness: feels tired having soft stools dirrhoea is improving cdiff still pending - Current Medication List Current Medications: Active Medications Acetaminophen (Tylenol -) 650 mg PO Q6H PRN PRN Reason: Fever Or Pain Last Admin: 09/21/18 13:17 Dose: 650 mg Acetaminophen/Butalbital/Caffeine (Fioricet -) 1 tablet PO Q6H PRN PRN Reason: HEADACHE Amlodipine Besylate (Norvasc -) 10 mg PO DAILY [facility] Last Admin: 09/22/18 09:39 Dose: 10 mg Apixaban (Eliquis -) 2.5 mg PO BID [facility] Last Admin: 09/22/18 22:02 Dose: 2.5 mg Bacitracin (Bacitracin -) 1 applic TP DAILY [facility] Last Admin: 09/22/18 09:40 Dose: 1 applic Escitalopram Oxalate (Lexapro -) 5 mg PO DAILY [facility] Last Admin: 09/22/18 09:38 Dose: 5 mg Sodium Chloride (Normal Saline -) 1,000 mls @ 75 mls/hr IV ASDIR [facility] Last Admin: 09/22/18 23:19 Dose: 75 mls/hr Insulin Aspart (Novolog Vial Sliding Scale -) 1 vial SQ ACHS [facility]; Protocol Last Admin: 09/23/18 06:25 Dose: Not Given Labetalol HCl (Normodyne -) 400 mg PO BID [facility] Last Admin: 09/22/18 22:02 Dose: 400 mg Pregabalin (Lyrica -) 100 mg PO TID [facility] Last Admin: 09/23/18 06:26 Dose: 100 mg Quetiapine Fumarate (Seroquel -) 50 mg PO HS [facility] Last Admin: 09/22/18 22:03 Dose: 50 mg Vancomycin HCl (Vancomycin Oral Solution) 125 mg PO Q6HPO [facility] Last Admin: 09/23/18 06:26 Dose: 125 mg - Objective Vital Signs: Vital Signs Temperature 98.3 F 09/23/18 06:00 Pulse Rate 76 09/23/18 06:00 Respiratory Rate 18 09/23/18 06:00 Blood Pressure 129/75 09/23/18 06:00 O2 Sat by Pulse Oximetry (%) 97 09/22/18 21:00 Constitutional: Yes: No Distress, Calm, Obese Cardiovascular: Yes: Regular Rate and Rhythm Respiratory: Yes: Regular, CTA Bilaterally Gastrointestinal: Yes: Normal Bowel Sounds, Soft Musculoskeletal: Yes: WNL Extremities: Yes: WNL Neurological: Yes: Alert, Oriented Psychiatric: Yes: Alert, Oriented Labs: CBC, BMP 09/22/18 07:00 09/23/18 05:20 Assessment/Plan 48 year old female with past medical history of HTN, NIDDM, CHF, DVT (s/p IVC filter, on Eliquis), peripheral neuropathy and polysubstance abuse, presented from [facility] after being recently discharged for rehab due to foul smelling stools. dirrhoea polysubstance abuse ckd dm htn plan continue current mgmt awaiting for result of cdiff nutrition rest as per the team
--- NOTE | 2018-09-23 13:33 | PN ---
Teaching Attending Note Name of Resident: Bea Avery ATTENDING PHYSICIAN STATEMENT I saw and evaluated the patient. I reviewed the resident's note and discussed the case with the resident. I agree with the resident's findings and plan as documented. SUBJECTIVE: 2 BMs today with formed stool. No RO , no fever , no chills. still with mild abd pain OBJECTIVE: NAD CV: RRR, no MRG Lungs: CTAB Abd: soft, TTP in suprapubic area and RLQ and LLQ, ND, NL BS . Ext: no edema. L big toe ulcer with a scab and no discharge Assessment/Plan: 48 y/o lady with h/o HTN, DM , depression /anxiety, PE/DVT, s/p IVCF, substance abuse ,chronic lower ext ulcers, recent c diff , Recent ANASTASIA ( ATN ) requiring HD, and frequent hospitalizations who was dc to [facility] for rehab on 09/17 and was sent back on 09/18 due to persistent diarrhea 1- Diarrhea: resolved. C diff PCR neg. stool cx neg d/w Id , dc michelle Need colonoscopy as out pt to evaluate her colitis. will have her f/u with GI dc IVF 2- Heroin abuse, last use on 09/15 - no signs of withdrawal 3- HTN: cont labetalol and norvasc 4- Chronic DVT: h/o IVCF. - cont eliquis 2.5 BID 5- DM: SSI. hold po meds 6- Psych; Cont lexapro and seroquel. aurelia have her f/u with Psych as out pt for adjustment of her meds due to anxiety 7- L big toe ulcer. need repeat MRI in 2 months Dc home today
--- NOTE | 2018-09-23 13:57 | CON.PSY ---
Psychiatry Consult Chief Complaint: 48 year old female with a history of Heroin abuse and depensence, anxiety and ? depression. Patient seen for Psych eval. Symptoms: reports: Anxiety - Reason for Previous Treatment Reason for Previous Treatment: Anxiety or Panic Disorder, Drug Abuse - Current Medications Current Medications: Active Medications Acetaminophen (Tylenol -) 650 mg PO Q6H PRN PRN Reason: Fever Or Pain Last Admin: 09/21/18 13:17 Dose: 650 mg Amlodipine Besylate (Norvasc -) 10 mg PO DAILY [facility] Last Admin: 09/23/18 09:48 Dose: 10 mg Apixaban (Eliquis -) 2.5 mg PO BID [facility] Last Admin: 09/23/18 09:48 Dose: 2.5 mg Bacitracin (Bacitracin -) 1 applic TP DAILY [facility] Last Admin: 09/22/18 09:40 Dose: 1 applic Escitalopram Oxalate (Lexapro -) 10 mg PO DAILY [facility] Insulin Aspart (Novolog Vial Sliding Scale -) 1 vial SQ ACHS [facility]; Protocol Last Admin: 09/23/18 12:10 Dose: Not Given Labetalol HCl (Normodyne -) 400 mg PO BID [facility] Last Admin: 09/23/18 09:48 Dose: 400 mg Pregabalin (Lyrica -) 100 mg PO TID [facility] Last Admin: 09/23/18 13:36 Dose: 100 mg Vancomycin HCl (Vancomycin Oral Solution) 125 mg PO Q6HPO [facility] Last Admin: 09/23/18 13:36 Dose: 125 mg - Allergies Allergies: Allergies Allergy/AdvReac Type Severity Reaction Status Date / Time ondansetron [From Zofran] AdvReac Severe Verified 09/17/18 17:48 - Current Living Status Usual Living Arrangement: Alone - Current Mental Status Evaluation Appearance: Well Groomed Attitude: Cooperative - Affect Affect: Constrictive Appropriateness: Appropriate to Content - Mood Mood: Anxious - Speech/Language Expressive: Coherent - Psychomotor Activity Psychomotor Activity: Hyperactive - Thought Process Thought Process: Intact - Thought Content Hallucinations: Absent Delusions: Absent - Self Perception Self Perception: No Impairment - Cognition Attention: Alert Orientation: Time Memory, Immediate Recall: Intact Memory, Short Term: 3/3 Memory, Remote with Promptin/3 - Concentration Serial Sevens Intact: Yes Simple Calculations Intact: Yes - Abstraction Proverb Interpretation: Intact Judgement: Minimally Impaired - Insight Insight: Intact - Impulse Control Impulse Control: Minimally Impaired - Suicidal Ideation Suicidal Ideation: No - Homicidal Ideation Homicidal Ideation: No Assessment/Plan 1)m increase lexapro 10mg po od. 2) increase seroquel 50 mg po bid.
[2018-09-23] MEDS: BACITRACIN 15 GM TUBE TOPICAL OINTMENT TP SCH (17:52)
[2018-09-23] MEDS: QUEtiapine FUMARATE 25 MG TABLET (FP) PO SCH (21:12)
[2018-09-24] MEDS: VANCOMYCIN 250 MG/5 ML ORAL SOLUTION PO SCH ×4 (00:07→17:25)
[2018-09-24] MEDS: PREGABALIN 100 MG CAPSULE PO SCH ×3 (06:23→21:16)
[2018-09-24] MEDS: INSULIN SLIDING SCALE (NOVOLOG) 1 VIAL SQ SCH ×4 (06:27→21:19)
[2018-09-24] MEDS: BACITRACIN 15 GM TUBE TOPICAL OINTMENT TP SCH (09:10)
[2018-09-24] MEDS: QUEtiapine FUMARATE 25 MG TABLET (FP) PO SCH ×2 (09:11→21:16)
[2018-09-24] MEDS: LABETALOL HCL 200 MG TABLET (FP) PO SCH ×2 (09:11→21:16)
[2018-09-24] MEDS: amLODIPine BESYLATE 10 MG TABLET (FP) PO SCH (09:11)
[2018-09-24] MEDS: ESCITALOPRAM OXALATE 10 MG TABLET (FP) PO SCH (09:11)
[2018-09-24] MEDS: APIXABAN 2.5 MG TABLET PO SCH ×2 (09:11→21:16)
[2018-09-24 10:16] VITALS: BMI 41.4
--- NOTE | 2018-09-24 11:54 | PN ---
Progress Note, Physician History of Present Illness: patient stable no new issues patients pcr is negative patient has completed the course of oral vanco - Current Medication List Current Medications: Active Medications Acetaminophen (Tylenol -) 650 mg PO Q6H PRN PRN Reason: Fever Or Pain Last Admin: 09/21/18 13:17 Dose: 650 mg Amlodipine Besylate (Norvasc -) 10 mg PO DAILY [facility] Last Admin: 09/24/18 09:11 Dose: 10 mg Apixaban (Eliquis -) 2.5 mg PO BID [facility] Last Admin: 09/24/18 09:11 Dose: 2.5 mg Bacitracin (Bacitracin -) 1 applic TP DAILY [facility] Last Admin: 09/24/18 09:10 Dose: 1 applic Escitalopram Oxalate (Lexapro -) 10 mg PO DAILY [facility] Last Admin: 09/24/18 09:11 Dose: 10 mg Insulin Aspart (Novolog Vial Sliding Scale -) 1 vial SQ [facility]; Protocol Last Admin: 09/24/18 06:27 Dose: Not Given Labetalol HCl (Normodyne -) 400 mg PO BID [facility] Last Admin: 09/24/18 09:11 Dose: 400 mg Pregabalin (Lyrica -) 100 mg PO TID [facility] Last Admin: 09/24/18 06:23 Dose: 100 mg Quetiapine Fumarate (Seroquel -) 50 mg PO BID [facility] Last Admin: 09/24/18 09:11 Dose: 50 mg Vancomycin HCl (Vancomycin Oral Solution) 125 mg PO Q6HPO [facility] Last Admin: 09/24/18 06:23 Dose: 125 mg - Objective Vital Signs: Vital Signs Temperature 98.6 F 09/24/18 09:31 Pulse Rate 78 09/24/18 09:31 Respiratory Rate 20 09/24/18 09:31 Blood Pressure 134/93 09/24/18 09:31 O2 Sat by Pulse Oximetry (%) 98 09/23/18 21:00 Constitutional: Yes: No Distress, Calm Cardiovascular: Yes: Regular Rate and Rhythm Respiratory: Yes: Regular, CTA Bilaterally Gastrointestinal: Yes: Normal Bowel Sounds, Soft Musculoskeletal: Yes: WNL Extremities: Yes: WNL Neurological: Yes: Alert, Oriented Psychiatric: Yes: Alert, Oriented Labs: CBC, BMP 09/22/18 07:00 09/23/18 05:20 Assessment/Plan 48 year old female with past medical history of HTN, NIDDM, CHF, DVT (s/p IVC filter, on Eliquis), peripheral neuropathy and polysubstance abuse, presented from [facility] after being recently discharged for rehab due to foul smelling stools. dirrhoea polysubstance abuse ckd dm htn plan continue current mgmt cdiff negative patient has been already treated for cdiff no further treatment required
--- NOTE | 2018-09-24 14:24 | DS ---
Addendum entered and electronically signed by Bea Avery, RESIDENT 16:27: Patient decided to be discharged home verses going straight to rehab . She is pending a bed at [facility] for rehabq and she has admission pending Original Note: Physical Exam: SUBJECTIVE: Patient seen and examined OBJECTIVE: Vital Signs Period Temp Pulse Resp BP Sys/Puente Pulse Ox Last 24 Hr 97.8 F-98.6 F 69-78 18-20 127-145/78-102 98 PHYSICAL EXAM GENERAL: The patient is awake, alert, and fully oriented, in no acute distress. HEAD: Normal with no signs of trauma. EYES: PERRL, extraocular movements intact, sclera anicteric, conjunctiva clear. ENT: Ears normal, nares patent, oropharynx clear without exudates, moist mucous membranes. NECK: Trachea midline, full range of motion, supple. LUNGS: Breath sounds equal, clear to auscultation bilaterally, no wheezes, no crackles, no accessory muscle use. HEART: Regular rate and rhythm, S1, S2 without murmur, rub or gallop. ABDOMEN: Soft, nontender, nondistended, normoactive bowel sounds, no guarding, no rebound, no hepatosplenomegaly, no masses. EXTREMITIES: 2+ pulses, warm, well-perfused, no edema. NEUROLOGICAL: Cranial nerves II through XII grossly intact. Normal speech, gait not observed. PSYCH: Normal mood, normal affect. SKIN: Warm, dry, normal turgor, no rashes or lesions noted. LABS Laboratory Results - last 24 hr 09/19/18 09/23/18 09/23/18 06:45 17:49 21:14 POC Glucometer 113 117 Stool O & P Wet [place] Permanent Slide Final report 09/24/18 09/24/18 06:27 12:06 POC Glucometer 100 104 Stool O & P Wet [place] Permanent Slide HOSPITAL COURSE: Date of Admission:09/18/18 patient came in from [facility] one day after she was discharged from the hospital for diarrhea which is nothign new- there were no isolation beds in [facility] so she had to be transferred back here. stool stuides were sent, c diff PCR was sent- stool studies came back negative; C diff PCR came back negative. patient was discharged to rehab for heroin use Date of Discharge: 09/24/18 Minutes to complete discharge: 39 Discharge Summary Reason For Visit: CELULLITIS, CDIF Condition: Improved - Instructions Diet, Activity, Other Instructions: You came to the hospital with complaints of continuous diarrhea. We tested your stool, the cultures came back negative and you no longer have C diff present in the stool. However, we would like you to see hub associate for further workup and need for colonoscopy. Please resume all of your home medications except: You do not need to take the Vancomycin anymore Please follow up with. Dr. Kahn, your primary care physician within one week We are referring you to a GI doctor, Dr. Wesley, that we would like you to see within a week or two *if you begin to experience any chest pains, shortness of breath, ongoing diarrhea, vomiting please return to the emergency room immediately Please follow with your psychiatrist for your anxiety. if you don't have one , please follow with Dr. Cruz please follow up with Dr. Man fro more instructions on your chronic DVT treatment You need repeat MRI of your foot in 2 months. please follow with Your primary doctor to order the test Referrals: Petar Cruz MD [Staff Physician] - Brielle Wesley DO [Staff Physician] - 1 Week Doreen Kahn MD [Staff Physician] - 1 Week Latrell Man MD [Staff Physician] - Disposition: HOME - Home Medications Comprehensive Discharge Medication List: Ambulatory Orders Pregabalin [Lyrica] 100 mg PO TID 10/02/16 traZODone HCL [Desyrel -] 100 mg PO HS 02/13/18 Amlodipine Besylate 10 mg PO DAILY #30 tablet 08/18/18 Apixaban [Eliquis] 2.5 mg PO BID #60 tablet 08/18/18 Bacitracin - [Bacitracin Topical Ointment -] 1 applic TP DAILY #1 tube 08/18/18 Labetalol HCl [Normodyne -] 400 mg PO BID #120 tablet 08/18/18 Sitagliptin Phosphate [Januvia] 100 mg PO DAILY #30 tablet 08/18/18 Escitalopram Oxalate [Lexapro -] 10 mg PO DAILY #30 tablet 09/23/18 Quetiapine Fumarate [Seroquel -] 50 mg PO BID #30 tablet 09/23/18 Problem List - Problems (1) ANASTASIA (acute kidney injury) Code(s): N17.9 - ACUTE KIDNEY FAILURE, UNSPECIFIED (2) CHF exacerbation Code(s): I50.9 - HEART FAILURE, UNSPECIFIED Qualifiers: Heart failure type: unspecified Qualified Code(s): I50.9 - Heart failure, unspecified (3) DVT (deep venous thrombosis) Code(s): I82.409 - ACUTE EMBOLISM AND THOMBOS UNSP DEEP VN UNSP LOWER EXTREMITY (4) Diarrhea Code(s): R19.7 - DIARRHEA, UNSPECIFIED Qualifiers: Diarrhea type: unspecified type Qualified Code(s): R19.7 - Diarrhea, unspecified This patient is new to me today: No Emergency Visit: No Critical Care patient: No - Discharge Referral Referred to [facility] Med P.C.: No
--- NOTE | 2018-09-24 18:27 | PN ---
Teaching Attending Note Name of Resident: Bea Avery ATTENDING PHYSICIAN STATEMENT I saw and evaluated the patient. I reviewed the resident's note and discussed the case with the resident. I agree with the resident's findings and plan as documented. SUBJECTIVE: no diarrhea . feels better ASSESSMENT AND PLAN: NAD . Ext: no edema. Assessment/Plan: 48 y/o lady with h/o HTN, DM , depression /anxiety, PE/DVT, s/p IVCF, substance abuse ,chronic lower ext ulcers, recent c diff , Recent ANASTASIA ( ATN ) requiring HD, and frequent hospitalizations who was dc to [facility] for rehab on 09/17 and was sent back on 09/18 due to persistent diarrhea 1- Diarrhea: resolved. C diff PCR neg. stool cx neg Need colonoscopy as out pt to evaluate her colitis. will have her f/u with GI off vanco 2- Heroin abuse, last use on 09/15 - no signs of withdrawal 3- HTN: cont labetalol and norvasc 4- Chronic DVT: h/o IVCF. - cont eliquis 2.5 BID . f/u with heme 5- DM: SSI. hold po meds 6- Psych; Contincrease dose of lexapro and seroquel. 7- L big toe ulcer. need repeat MRI in 2 months patient was discharged but declined leaving .
[2018-09-25] MEDS: VANCOMYCIN 250 MG/5 ML ORAL SOLUTION PO SCH ×2 (00:09→06:16)
[2018-09-25] MEDS: PREGABALIN 100 MG CAPSULE PO SCH ×3 (06:16→22:05)
[2018-09-25] MEDS: INSULIN SLIDING SCALE (NOVOLOG) 1 VIAL SQ SCH ×4 (06:19→22:05)
--- NOTE | 2018-09-25 09:27 | PN ---
Progress Note, Physician History of Present Illness: stable no new issues - Current Medication List Current Medications: Active Medications Acetaminophen (Tylenol -) 650 mg PO Q6H PRN PRN Reason: Fever Or Pain Last Admin: 09/21/18 13:17 Dose: 650 mg Amlodipine Besylate (Norvasc -) 10 mg PO DAILY [facility] Last Admin: 09/24/18 09:11 Dose: 10 mg Apixaban (Eliquis -) 2.5 mg PO BID [facility] Last Admin: 09/24/18 21:16 Dose: 2.5 mg Bacitracin (Bacitracin -) 1 applic TP DAILY [facility] Last Admin: 09/24/18 09:10 Dose: 1 applic Escitalopram Oxalate (Lexapro -) 10 mg PO DAILY [facility] Last Admin: 09/24/18 09:11 Dose: 10 mg Insulin Aspart (Novolog Vial Sliding Scale -) 1 vial SQ [facility]; Protocol Last Admin: 09/25/18 06:19 Dose: Not Given Labetalol HCl (Normodyne -) 400 mg PO BID [facility] Last Admin: 09/24/18 21:16 Dose: 400 mg Pregabalin (Lyrica -) 100 mg PO TID [facility] Last Admin: 09/25/18 06:16 Dose: 100 mg Quetiapine Fumarate (Seroquel -) 50 mg PO BID [facility] Last Admin: 09/24/18 21:16 Dose: 50 mg Vancomycin HCl (Vancomycin Oral Solution) 125 mg PO Q6HPO [facility] Last Admin: 09/25/18 06:16 Dose: 125 mg - Objective Vital Signs: Vital Signs Temperature 97.8 F 09/25/18 06:00 Pulse Rate 67 09/25/18 06:00 Respiratory Rate 18 09/25/18 06:00 Blood Pressure 134/75 09/25/18 06:00 O2 Sat by Pulse Oximetry (%) 98 09/24/18 21:00 Constitutional: Yes: No Distress, Calm Cardiovascular: Yes: Regular Rate and Rhythm Respiratory: Yes: Regular, CTA Bilaterally Gastrointestinal: Yes: Normal Bowel Sounds, Soft Musculoskeletal: Yes: WNL Extremities: Yes: WNL Neurological: Yes: Alert, Oriented Psychiatric: Yes: Alert, Oriented Labs: CBC, BMP 09/22/18 07:00 09/23/18 05:20 Assessment/Plan 48 year old female with past medical history of HTN, NIDDM, CHF, DVT (s/p IVC filter, on Eliquis), peripheral neuropathy and polysubstance abuse, presented from [facility] after being recently discharged for rehab due to foul smelling stools. dirrhoea polysubstance abuse ckd dm htn plan continue current mgmt rest as per the team
--- NOTE | 2018-09-25 09:28 | PN ---
Teaching Attending Note Name of Resident: Bea Avery ATTENDING PHYSICIAN STATEMENT I saw and evaluated the patient. I reviewed the resident's note and discussed the case with the resident. I agree with the resident's findings and plan as documented. SUBJECTIVE: Feels better , wants to go to [facility]'s rehab. OBJECTIVE: Vital Signs Temperature 97.8 F 09/25/18 06:00 Pulse Rate 67 09/25/18 06:00 Respiratory Rate 18 09/25/18 06:00 Blood Pressure 134/75 09/25/18 06:00 O2 Sat by Pulse Oximetry (%) 98 09/24/18 21:00 GENERAL: The patient is awake, alert, and fully oriented, in no acute distress. HEAD: Normal with no signs of trauma. EYES: PERRL, extraocular movements intact, sclera anicteric, conjunctiva clear. ENT: Ears normal, nares patent, oropharynx clear without exudates, moist mucous membranes. NECK: Trachea midline, full range of motion, supple. LUNGS: Breath sounds equal, clear to auscultation bilaterally, no wheezes, no crackles, no accessory muscle use. HEART: Regular rate and rhythm, S1, S2 without murmur, rub or gallop. ABDOMEN: Soft, nontender, nondistended, normoactive bowel sounds, no guarding, no rebound, no hepatosplenomegaly, no masses. EXTREMITIES: 2+ pulses, warm, well-perfused, no edema. NEUROLOGICAL: Cranial nerves II through XII grossly intact. Normal speech, gait not observed. PSYCH: Normal mood, normal affect. SKIN: Warm, dry, normal turgor, no rashes or lesions noted. CBCD WBC 7.4 K/mm3 (4.0-10.0) 09/22/18 07:00 RBC 3.57 M/mm3 (3.60-5.2) L 09/22/18 07:00 Hgb 10.9 GM/dL (10.7-15.3) 09/22/18 07:00 Hct 31.6 % (32.4-45.2) L 09/22/18 07:00 MCV 88.3 fl (80-96) 09/22/18 07:00 MCHC 34.7 g/dl (32.0-36.0) 09/22/18 07:00 RDW 13.7 % (11.6-15.6) 09/22/18 07:00 Plt Count 265 K/MM3 (134-434) 09/22/18 07:00 MPV 7.9 fl (7.5-11.1) 09/22/18 07:00 CMP Sodium 143 mmol/L (136-145) 09/22/18 07:00 Potassium 3.4 mmol/L (3.5-5.1) L 09/23/18 05:20 Chloride 112 mmol/L (98-107) H 09/22/18 07:00 Carbon Dioxide 21 mmol/L (21-32) 09/22/18 07:00 Anion Gap 10 MMOL/L (8-16) 09/22/18 07:00 BUN 18 mg/dL (7-18) 09/22/18 07:00 Creatinine 0.8 mg/dL (0.55-1.3) 09/22/18 07:00 Creat Clearance w eGFR > 60 (>60) 09/22/18 07:00 Random Glucose 103 mg/dL (74-106) 09/22/18 07:00 Calcium 8.5 mg/dL (8.5-10.1) 09/22/18 07:00 Total Bilirubin 0.6 mg/dL (0.2-1) 09/19/18 12:10 AST 9 U/L (15-37) L 09/19/18 12:10 ALT 34 U/L (13-61) 09/19/18 12:10 Alkaline Phosphatase 69 U/L (45-117) 09/19/18 12:10 Total Protein 6.8 g/dl (6.4-8.2) 09/19/18 12:10 Albumin 3.6 g/dl (3.4-5.0) 09/19/18 12:10 Current Medications Generic Name Dose Route Start Last Admin Trade Name Freq PRN Reason Stop Dose Admin Acetaminophen 650 mg 09/21/18 13:05 09/21/18 13:17 Tylenol - PO 650 mg Q6H PRN Administration Fever Or Pain Amlodipine Besylate 10 mg 09/20/18 10:00 09/24/18 09:11 Norvasc - PO 10 mg DAILY [facility] Administration Apixaban 2.5 mg 09/18/18 22:00 09/24/18 21:16 Eliquis - PO 2.5 mg BID [facility] Administration Bacitracin 1 applic 09/19/18 10:00 09/24/18 09:10 Bacitracin - TP 1 applic DAILY [facility] Administration Escitalopram Oxalate 10 mg 09/24/18 10:00 09/24/18 09:11 Lexapro - PO 10 mg DAILY [facility] Administration Insulin Aspart 1 vial 09/18/18 22:00 09/25/18 06:19 Novolog Vial Sliding Scale - SQ Not Given ACHS [facility] Protocol Labetalol HCl 400 mg 09/19/18 10:00 09/24/18 21:16 Normodyne - PO 400 mg BID [facility] Administration Pregabalin 100 mg 09/19/18 06:00 09/25/18 06:16 Lyrica - PO 100 mg TID [facility] Administration Quetiapine Fumarate 50 mg 09/23/18 22:00 09/24/18 21:16 Seroquel - PO 50 mg BID [facility] Administration Vancomycin HCl 125 mg 09/19/18 00:00 09/25/18 06:16 Vancomycin Oral Solution PO 125 mg Q6HPO [facility] Administration Home Medications Medication Instructions Recorded Pregabalin [Lyrica] 100 mg PO TID 10/02/16 traZODone HCL [Desyrel -] 100 mg PO HS 02/13/18 Amlodipine Besylate 10 mg PO DAILY #30 tablet 08/18/18 Apixaban [Eliquis] 2.5 mg PO BID #60 tablet 08/18/18 Bacitracin - [Bacitracin Topical 1 applic TP DAILY #1 tube 08/18/18 Ointment -] Labetalol HCl [Normodyne -] 400 mg PO BID #120 tablet 08/18/18 Sitagliptin Phosphate [Januvia] 100 mg PO DAILY #30 tablet 08/18/18 Escitalopram Oxalate [Lexapro -] 10 mg PO DAILY #30 tablet 09/23/18 Quetiapine Fumarate [Seroquel -] 50 mg PO BID #30 tablet 09/23/18 ASSESSMENT AND PLAN: 48 y/o lady with h/o HTN, DM , depression /anxiety, PE/DVT, s/p IVCF, substance abuse ,chronic lower ext ulcers, recent c diff , Recent ANASTASIA ( ATN ) requiring HD, and frequent hospitalizations who was dc to [facility] for rehab on 09/17 and was sent back on 09/18 due to persistent diarrhea #Acute Diarrhea: resolved. C diff PCR neg. stool cx neg Need colonoscopy as out pt to evaluate her colitis. will have her f/u with GI , off vanco now #Heroin abuse, last use on 09/15, no signs of withdrawal # HTN: cont labetalol and norvasc # Chronic DVT: h/o IVCF, continue eliquis 2.5 BID . f/u with heme # DM: SSI. hold po meds # Psych; titrate the dose of lexapro up if needed and seroquel. # L big toe ulcer. need repeat MRI in 2 months possible discharge to rehab. in am
[2018-09-25] MEDS: BACITRACIN 15 GM TUBE TOPICAL OINTMENT TP SCH (10:07)
[2018-09-25] MEDS: QUEtiapine FUMARATE 25 MG TABLET (FP) PO SCH ×2 (10:07→22:05)
[2018-09-25] MEDS: amLODIPine BESYLATE 10 MG TABLET (FP) PO SCH (10:08)
[2018-09-25] MEDS: ESCITALOPRAM OXALATE 10 MG TABLET (FP) PO SCH (10:08)
[2018-09-25] MEDS: APIXABAN 2.5 MG TABLET PO SCH ×2 (10:08→22:05)
[2018-09-25] MEDS: LABETALOL HCL 200 MG TABLET (FP) PO SCH ×2 (10:08→22:05)
--- NOTE | 2018-09-25 13:40 | PN ---
Physical Exam: SUBJECTIVE: Patient seen and examined at bedside- patient was supposed to be d/c 'd yesterday but is appealing- no issues overnight no diarrhea OBJECTIVE: Vital Signs Period Temp Pulse Resp BP Sys/Puente Pulse Ox Last 24 Hr 97.8 F-98 F 67-80 18-18 124-134/75-86 98 GENERAL: The patient is awake, alert, and fully oriented, in no acute distress. EYES: PEERLA EOMI no scleral icterus NECK: no JVD no ylmphadenopathy LUNGS:CTA B/L; no rales, rhonchi or wheezing HEART: Regular rate and rhythm, S1, S2 without murmur, rub or gallop. ABDOMEN: Soft, slight tenderness upon palpation. EXTREMITIES: 2+ pulses, warm, well-perfused, no edema. PSYCH: Normal mood, normal affect. SKIN: Warm, dry, normal turgor, no rashes or lesions noted Laboratory Results - last 24 hr 09/19/18 09/24/18 09/24/18 06:45 17:18 21:18 POC Glucometer 95 148 Stool O & P Wet [place] Permanent Slide Final report 09/25/18 06:17 POC Glucometer 103 Stool O & P Wet [place] Permanent Slide Active Medications Generic Name Dose Route Start Last Admin Trade Name Freq PRN Reason Stop Dose Admin Acetaminophen 650 mg 09/21/18 13:05 09/21/18 13:17 Tylenol - PO 650 mg Q6H PRN Administration Fever Or Pain Amlodipine Besylate 10 mg 09/20/18 10:00 09/25/18 10:08 Norvasc - PO 10 mg DAILY [facility] Administration Apixaban 2.5 mg 09/18/18 22:00 09/25/18 10:08 Eliquis - PO 2.5 mg BID [facility] Administration Bacitracin 1 applic 09/19/18 10:00 09/25/18 10:07 Bacitracin - TP 1 applic DAILY [facility] Administration Escitalopram Oxalate 10 mg 09/24/18 10:00 09/25/18 10:08 Lexapro - PO 10 mg DAILY [facility] Administration Insulin Aspart 1 vial 09/18/18 22:00 09/25/18 11:34 Novolog Vial Sliding Scale - SQ Not Given ACHS [facility] Protocol Labetalol HCl 400 mg 09/19/18 10:00 09/25/18 10:08 Normodyne - PO 400 mg BID [facility] Administration Pregabalin 100 mg 09/19/18 06:00 09/25/18 06:16 Lyrica - PO 100 mg TID [facility] Administration Quetiapine Fumarate 50 mg 09/23/18 22:00 09/25/18 10:07 Seroquel - PO 50 mg BID [facility] Administration ASSESSMENT/PLAN: Patient is a 48 year old female with past medical history of HTN, NIDDM, CHF, DVT (s/p IVC filter, on Eliquis), peripheral neuropathy and polysubstance abuse , presented from [facility] after being recently discharged for rehab due to foul smelling stools. #Diarrhea, may be 2/2 C. Diff infection vs opioid withdrawal -c diff negative -stoool cultures negative #Polysubstance abuse -Neuro checks, seizure precautions -Aspiration precautions, fall risk -Monitor for withdrawal symptoms. -sales specialist consult- patient does not want rehab/detox at this time #NIDDM -Hold Januvia 100mg -Insulin sliding scale implemented -BGM ACHS -Pregabalin 100mg TID for peripheral neuropathy #Hypertension -Labetalol 400mg BID -Amlodipine 10mg daily #Hx of DVT -Continue Eliquis 2.5mg BID #Depression/Anxiety -Continue Lexapro 5mg daily -Seroquel 50mg Po HS dispo:PATIENT APPEALING HER DISCHARGE Problem List - Problems (1) ANASTASIA (acute kidney injury) Code(s): N17.9 - ACUTE KIDNEY FAILURE, UNSPECIFIED (2) CHF exacerbation Code(s): I50.9 - HEART FAILURE, UNSPECIFIED Qualifiers: Heart failure type: unspecified Qualified Code(s): I50.9 - Heart failure, unspecified (3) DVT (deep venous thrombosis) Code(s): I82.409 - ACUTE EMBOLISM AND THOMBOS UNSP DEEP VN UNSP LOWER EXTREMITY (4) Diarrhea Code(s): R19.7 - DIARRHEA, UNSPECIFIED Qualifiers: Diarrhea type: unspecified type Qualified Code(s): R19.7 - Diarrhea, unspecified
[2018-09-25 15:54] LABS: BASO % 0.5 % (0-2.0); EOS % 1.7 % (0-4.5); HEMATOCRIT 35.2 % (32.4-45.2); HEMOGLOBIN 12.1 GM/dL (10.7-15.3); LYMPH % 25.6 % (8-40); MCH 30.6 pg (25.7-33.7); MCHC 34.3 g/dl (32.0-36.0); MEAN CELL VOLUME 89.1 fl (80-96); MEAN PLT VOLUME 8.6 fl (7.5-11.1); MONO % 6.4 % (3.8-10.2); NEUT % 65.8 % (42.8-82.8); PLATELET COUNT 313 K/MM3 (134-434); RBC 3.95 M/mm3 (3.60-5.2); RDW 14.1 % (11.6-15.6); WHITE BLOOD COUNT 9.3 K/mm3 (4.0-10.0)
[2018-09-26] MEDS: PREGABALIN 100 MG CAPSULE PO SCH (05:58)
[2018-09-26] MEDS: INSULIN SLIDING SCALE (NOVOLOG) 1 VIAL SQ SCH ×2 (06:13→12:14)
[2018-09-26] MEDS: LABETALOL HCL 200 MG TABLET (FP) PO SCH (09:11)
[2018-09-26] MEDS: BACITRACIN 15 GM TUBE TOPICAL OINTMENT TP SCH (09:11)
[2018-09-26] MEDS: APIXABAN 2.5 MG TABLET PO SCH (09:11)
[2018-09-26] MEDS: ESCITALOPRAM OXALATE 10 MG TABLET (FP) PO SCH (09:12)
[2018-09-26] MEDS: amLODIPine BESYLATE 10 MG TABLET (FP) PO SCH (09:12)
[2018-09-26] MEDS: QUEtiapine FUMARATE 25 MG TABLET (FP) PO SCH (09:12)
[2018-09-26 10:20] LABS: FATS, NEUTRAL Normal
--- NOTE | 2018-09-26 11:05 | DS ---
Physical Exam: SUBJECTIVE: Patient seen and examined OBJECTIVE: Vital Signs Period Temp Pulse Resp BP Sys/Puente Pulse Ox Last 24 Hr 97.9 F-98.4 F 69-79 18-20 93-115/54-66 100 PHYSICAL EXAM GENERAL: The patient is awake, alert, and fully oriented, in no acute distress. HEAD: Normal with no signs of trauma. EYES: PERRL, extraocular movements intact, sclera anicteric, conjunctiva clear. ENT: Ears normal, nares patent, oropharynx clear without exudates, moist mucous membranes. NECK: Trachea midline, full range of motion, supple. LUNGS: Breath sounds equal, clear to auscultation bilaterally, no wheezes, no crackles, no accessory muscle use. HEART: Regular rate and rhythm, S1, S2 without murmur, rub or gallop. ABDOMEN: Soft, nontender, nondistended, normoactive bowel sounds, no guarding, no rebound, no hepatosplenomegaly, no masses. EXTREMITIES: 2+ pulses, warm, well-perfused, no edema. NEUROLOGICAL: Cranial nerves II through XII grossly intact. Normal speech, gait not observed. PSYCH: Normal mood, normal affect. SKIN: Warm, dry, normal turgor, no rashes or lesions noted. LABS Laboratory Results - last 24 hr 09/19/18 09/25/18 09/25/18 11:00 14:45 16:45 WBC 9.3 RBC 3.95 Hgb 12.1 Hct 35.2 MCV 89.1 MCH 30.6 MCHC 34.3 RDW 14.1 Plt Count 313 MPV 8.6 Absolute Neuts (auto) 6.1 Neutrophils % 65.8 Lymphocytes % 25.6 D Monocytes % 6.4 Eosinophils % 1.7 Basophils % 0.5 Nucleated RBC % 0 POC Glucometer 104 Stool Fat, Quant Cancelled Stool Neutral Fats Normal Stool Total Fats Normal 09/25/18 09/26/18 20:51 05:53 WBC RBC Hgb Hct MCV MCH MCHC RDW Plt Count MPV Absolute Neuts (auto) Neutrophils % Lymphocytes % Monocytes % Eosinophils % Basophils % Nucleated RBC % POC Glucometer 140 115 Stool Fat, Quant Stool Neutral Fats Stool Total Fats HOSPITAL COURSE: Date of Admission:09/18/18 Patient is a 48 year old female with past medical history of HTN, NIDDM, CHF, DVT (s/p IVC filter, on Eliquis), peripheral neuropathy and polysubstance abuse , presented from [facility] after being recently discharged for rehab due to foul smelling stools however there were no isoaltion beds available which was why simón was sent back here. stool studies were sent which were negative, and the c diff PCR took a while to come back however it was negative. pateint was medically clesred to go hoem or to rehab pending a bed- patient did not want to go home as she thought she would go home and get high again. a bed was found at [facility] and rebeka was sent there to complete rehab Date of Discharge: 09/26/18 Minutes to complete discharge: 39 Discharge Summary Reason For Visit: CELULLITIS, CDIF Condition: Improved - Instructions Diet, Activity, Other Instructions: You came to the hospital with complaints of continuous diarrhea. We tested your stool, the cultures came back negative and you no longer have C diff present in the stool. However, we would like you to see freedom of information officer for further workup and need for colonoscopy. Please resume all of your home medications except: You do not need to take the Vancomycin anymore Please follow up with. Dr. Kahn, your primary care physician within one week We are referring you to a GI doctor, Dr. Wesley, that we would like you to see within a week or two *if you begin to experience any chest pains, shortness of breath, ongoing diarrhea, vomiting please return to the emergency room immediately Please follow with your psychiatrist for your anxiety. if you don't have one , please follow with Dr. Cruz please follow up with Dr. Man fro more instructions on your chronic DVT treatment You need repeat MRI of your foot in 2 months. please follow with Your primary doctor to order the test Referrals: Petar Cruz MD [Staff Physician] - Brielle Wesley DO [Staff Physician] - 1 Week Doreen Kahn MD [Staff Physician] - 1 Week Latrell Man MD [Staff Physician] - Disposition: HOME - Home Medications Comprehensive Discharge Medication List: Ambulatory Orders Pregabalin [Lyrica] 100 mg PO TID 10/02/16 traZODone HCL [Desyrel -] 100 mg PO HS 02/13/18 Amlodipine Besylate 10 mg PO DAILY #30 tablet 08/18/18 Apixaban [Eliquis] 2.5 mg PO BID #60 tablet 08/18/18 Bacitracin - [Bacitracin Topical Ointment -] 1 applic TP DAILY #1 tube 08/18/18 Labetalol HCl [Normodyne -] 400 mg PO BID #120 tablet 08/18/18 Sitagliptin Phosphate [Januvia] 100 mg PO DAILY #30 tablet 08/18/18 Escitalopram Oxalate [Lexapro -] 10 mg PO DAILY #30 tablet 09/23/18 Quetiapine Fumarate [Seroquel -] 50 mg PO BID #30 tablet 09/23/18 Problem List - Problems (1) ANASTASIA (acute kidney injury) Code(s): N17.9 - ACUTE KIDNEY FAILURE, UNSPECIFIED (2) CHF exacerbation Code(s): I50.9 - HEART FAILURE, UNSPECIFIED Qualifiers: Heart failure type: unspecified Qualified Code(s): I50.9 - Heart failure, unspecified (3) DVT (deep venous thrombosis) Code(s): I82.409 - ACUTE EMBOLISM AND THOMBOS UNSP DEEP VN UNSP LOWER EXTREMITY (4) Diarrhea Code(s): R19.7 - DIARRHEA, UNSPECIFIED Qualifiers: Diarrhea type: unspecified type Qualified Code(s): R19.7 - Diarrhea, unspecified This patient is new to me today: No Emergency Visit: Yes ED Registration Date: 09/18/18 Care time: The patient presented to the Emergency Department on the above date and was hospitalized for further evaluation of their emergent condition. Critical Care patient: No - Discharge Referral Referred to [facility] Med P.C.: No
[2018-09-26 11:42] VITALS: BP 124/81; PULSE 80; TEMP 98.7
--- NOTE | 2018-09-26 12:03 | PN ---
Progress Note, Physician - Current Medication List Current Medications: Active Medications Acetaminophen (Tylenol -) 650 mg PO Q6H PRN PRN Reason: Fever Or Pain Last Admin: 09/21/18 13:17 Dose: 650 mg Amlodipine Besylate (Norvasc -) 10 mg PO DAILY [facility] Last Admin: 09/26/18 09:12 Dose: 10 mg Apixaban (Eliquis -) 2.5 mg PO BID [facility] Last Admin: 09/26/18 09:11 Dose: 2.5 mg Bacitracin (Bacitracin -) 1 applic TP DAILY [facility] Last Admin: 09/26/18 09:11 Dose: 1 applic Escitalopram Oxalate (Lexapro -) 10 mg PO DAILY [facility] Last Admin: 09/26/18 09:12 Dose: 10 mg Insulin Aspart (Novolog Vial Sliding Scale -) 1 vial SQ ACHS [facility]; Protocol Last Admin: 09/26/18 06:13 Dose: Not Given Labetalol HCl (Normodyne -) 400 mg PO BID [facility] Last Admin: 09/26/18 09:11 Dose: 400 mg Pregabalin (Lyrica -) 100 mg PO TID [facility] Last Admin: 09/26/18 05:58 Dose: 100 mg Quetiapine Fumarate (Seroquel -) 50 mg PO BID [facility] Last Admin: 09/26/18 09:12 Dose: 50 mg - Objective Vital Signs: Vital Signs Temperature 98.7 F 09/26/18 10:00 Pulse Rate 80 09/26/18 10:00 Respiratory Rate 18 09/26/18 10:00 Blood Pressure 124/81 09/26/18 10:00 O2 Sat by Pulse Oximetry (%) 100 09/25/18 21:00 Labs: CBC, BMP 09/25/18 14:45 09/23/18 05:20
--- NOTE | 2018-09-26 19:23 | PN ---
Teaching Attending Note Name of Resident: Bea Avery ATTENDING PHYSICIAN STATEMENT I saw and evaluated the patient. I reviewed the resident's note and discussed the case with the resident. I agree with the resident's findings and plan as documented. SUBJECTIVE: Patient is going to rehab at [facility] since no bed is available at [facility] OBJECTIVE: Vital Signs Temperature 98.7 F 09/26/18 10:00 Pulse Rate 80 09/26/18 10:00 Respiratory Rate 18 09/26/18 10:00 Blood Pressure 124/81 09/26/18 10:00 O2 Sat by Pulse Oximetry (%) 99 09/26/18 09:00 GENERAL: The patient is awake, alert, and fully oriented, in no acute distress. HEAD: Normal with no signs of trauma. EYES: PERRL, extraocular movements intact, sclera anicteric, conjunctiva clear. ENT: Ears normal, oropharynx clear without exudates, moist mucous membranes. NECK: Trachea midline, full range of motion, supple. LUNGS: Breath sounds equal, clear to auscultation bilaterally, no wheezes, no crackles, no accessory muscle use. HEART: Regular rate and rhythm, S1, S2 without murmur, rub or gallop. ABDOMEN: Soft, nontender, nondistended, normoactive bowel sounds, no guarding, no rebound, no hepatosplenomegaly, no masses. EXTREMITIES: 2+ pulses, warm, well-perfused, no edema. NEUROLOGICAL: Cranial nerves II through XII grossly intact. Normal speech, gait not observed. PSYCH: Normal mood, normal affect. SKIN: Warm, dry, normal turgor, no rashes or lesions noted. CBCD WBC 9.3 K/mm3 (4.0-10.0) 09/25/18 14:45 RBC 3.95 M/mm3 (3.60-5.2) 09/25/18 14:45 Hgb 12.1 GM/dL (10.7-15.3) 09/25/18 14:45 Hct 35.2 % (32.4-45.2) 09/25/18 14:45 MCV 89.1 fl (80-96) 09/25/18 14:45 MCHC 34.3 g/dl (32.0-36.0) 09/25/18 14:45 RDW 14.1 % (11.6-15.6) 09/25/18 14:45 Plt Count 313 K/MM3 (134-434) 09/25/18 14:45 MPV 8.6 fl (7.5-11.1) 09/25/18 14:45 CMP Sodium 143 mmol/L (136-145) 09/22/18 07:00 Potassium 3.4 mmol/L (3.5-5.1) L 09/23/18 05:20 Chloride 112 mmol/L (98-107) H 09/22/18 07:00 Carbon Dioxide 21 mmol/L (21-32) 09/22/18 07:00 Anion Gap 10 MMOL/L (8-16) 09/22/18 07:00 BUN 18 mg/dL (7-18) 09/22/18 07:00 Creatinine 0.8 mg/dL (0.55-1.3) 09/22/18 07:00 Creat Clearance w eGFR > 60 (>60) 09/22/18 07:00 Random Glucose 103 mg/dL (74-106) 09/22/18 07:00 Calcium 8.5 mg/dL (8.5-10.1) 09/22/18 07:00 Total Bilirubin 0.6 mg/dL (0.2-1) 09/19/18 12:10 AST 9 U/L (15-37) L 09/19/18 12:10 ALT 34 U/L (13-61) 09/19/18 12:10 Alkaline Phosphatase 69 U/L (45-117) 09/19/18 12:10 Total Protein 6.8 g/dl (6.4-8.2) 09/19/18 12:10 Albumin 3.6 g/dl (3.4-5.0) 09/19/18 12:10 Home Medications Medication Instructions Recorded Pregabalin [Lyrica] 100 mg PO TID 10/02/16 traZODone HCL [Desyrel -] 100 mg PO HS 02/13/18 Amlodipine Besylate 10 mg PO DAILY #30 tablet 08/18/18 Apixaban [Eliquis] 2.5 mg PO BID #60 tablet 08/18/18 Bacitracin - [Bacitracin Topical 1 applic TP DAILY #1 tube 08/18/18 Ointment -] Labetalol HCl [Normodyne -] 400 mg PO BID #120 tablet 08/18/18 Sitagliptin Phosphate [Januvia] 100 mg PO DAILY #30 tablet 08/18/18 Escitalopram Oxalate [Lexapro -] 10 mg PO DAILY #30 tablet 09/23/18 Quetiapine Fumarate [Seroquel -] 50 mg PO BID #30 tablet 09/23/18 Microbiology 09/19/18 11:00 Stool Clostridioides difficile (PCR) - Final 09/19/18 11:00 Stool Salmonella/Shigella Culture - Final 09/19/18 11:00 Stool Campylobacter Culture - Final NO GROWTH OF CAMPYLOBACTER SPECIES OBTAINED 09/19/18 11:00 Stool Yersinia Culture - Final NO GROWTH OF YERSINIA SPECIES OBTAINED 09/19/18 11:00 Stool Vibrio Culture - Final NO GROWTH OF VIBRIO SPECIES OBTAINED 09/19/18 11:00 Stool Escherichia coli 0157 Culture - Final NO GROWTH OF E COLI 0157 OBTAINED 09/19/18 11:00 Stool Gram Stain - Final ASSESSMENT AND PLAN: 48 y/o lady with h/o HTN, DM , depression /anxiety, PE/DVT, s/p IVCF, substance abuse ,chronic lower ext ulcers, recent c diff , Recent ANASTASIA ( ATN ) requiring HD, and frequent hospitalizations who was dc to [facility] for rehab on 09/17 and was sent back on 09/18 due to persistent diarrhea #Acute Diarrhea: resolved. C diff PCR neg. stool cx neg . colonoscopy as an outpatient. #Heroin abuse, last use on 09/15, no signs of withdrawal, patient is goingto rehab.at [facility]. # HTN: cont labetalol and norvasc # Chronic DVT: h/o IVCF, continue eliquis 2.5 BID . f/u with heme # DM: SSI. hold po meds # Psych; titrate the dose of lexapro up if needed and seroquel. # L big toe ulcer. need repeat MRI in 2 months discharge to [facility].
== END 2018-09-26 12:39 | disposition home or self-care (01) | DRG 469 ==
LOC: J8W 18:56
PROVIDERS: ADMIT Internal Medicine; ATTEND Internal Medicine
DX: N17.9 Acute kidney failure, unspecified (principal); R19.7 Diarrhea, unspecified; E11.42 Type 2 diabetes mellitus with diabetic polyneuropathy; L97.529 Non-pressure chronic ulcer of other part of left foot with unspecified severity; I13.0 Hypertensive heart and chronic kidney disease with heart failure and stage 1 through stage 4 chronic kidney disease, or unspecified chronic kidney disease; I50.9 Heart failure, unspecified; E11.22 Type 2 diabetes mellitus with diabetic chronic kidney disease; N18.9 Chronic kidney disease, unspecified; Z68.41 Body mass index [BMI] 40.0-44.9, adult; F32.9 Major depressive disorder, single episode, unspecified; Z86.718 Personal history of other venous thrombosis and embolism; Z79.01 Long term (current) use of anticoagulants; F41.9 Anxiety disorder, unspecified; Z79.84 Long term (current) use of oral hypoglycemic drugs; Z86.711 Personal history of pulmonary embolism; Z91.19 Patient's noncompliance with other medical treatment and regimen; F11.10 Opioid abuse, uncomplicated; E66.01 Morbid (severe) obesity due to excess calories
CPT/HCPCS: 36415; 80048; 80053; 81003; 82705; 82710; 82962; 83735; 84100; 84132; 84999; 85025; 85027; 87045; 87046; 87177; 87205; 87209; 87493; J7030

== ENCOUNTER 2018-09-26 12:38 | Inpatient (IN) | payer OTHER ==
[2018-09-26 12:57] VITALS: BMI 41.4
--- NOTE | 2018-09-26 13:14 | HP ---
CIWA Score - Admission Criteria OASAS Guidelines: Admission for Medically Managed Detox: Requires at least one of the followin. CIWA greater than 12 2. Seizures within the past 24 hours 3. Delirium tremens within the past 24 hours 4. Hallucinations within the past 24 hours 5. Acute intervention needed for co occurring medical disorder 6. Acute intervention needed for co occurring psychiatric disorder 7. Severe withdrawal that cannot be handled at a lower level of care (continued vomiting, continued diarrhea, abnormal vital signs) requiring intravenous medication and/or fluids 8. Admission ROS [facility] - [facility] Chief Complaint: rehab Allergies/Adverse Reactions: Allergies Allergy/AdvReac Type Severity Reaction Status Date / Time ondansetron [From Zofran] AdvReac Severe Verified 09/26/18 12:53 History of Present Illness: Patient is a 48 yo female returns for re-admission for rehabilitation, after evaluated at [facility] after being treated for C. Diff. Patient during 09/18/18 - 09/26/18. Patient was in our rehab facility initially from - 09/18/18. Patient is here to continue rehab for opiate use, cocaine, PCP, MDMA, cannabis. Patient reports she suffered a heroin overdose on in which she required chest compressions and hospitalization. Reports hx of seizures with last episode two months ago d/t her psych medications. Reports prior hx of MAT with suboxone reports relapse after lapse of insurance and was unable to obtain her medications. PMHX: CHF, DVT s/p IVC filter 2015 , type 2 DM, HTN, PE, anxiety, depression, ANASTASIA oliguria/ hypovolemic shock, C-diff colitis. Denies suicidal / homicidal ideation. Exam Limitations: No Limitations - Ebola screening Have you traveled outside of the country in the last 21 days: No Have you had contact with anyone from an Ebola affected area: No Have you been sick,other than usual withdrawal symptoms: No Do you have a fever: No - Review of Systems Constitutional: No Symptoms Reported EENT: reports: No Symptoms Reported Respiratory: reports: No Symptoms reported Cardiac: reports: No Symptoms Reported GI: reports: No Symptoms Reported : reports: No Symptoms Reported Musculoskeletal: reports: Other (rib soreness from chest compression) Integumentary: reports: No Symptoms Reported Neuro: reports: No Symptoms reported Endocrine: reports: No Symptoms Reported Hematology: reports: No Symptoms Reported Psychiatric: reports: Judgement Intact, Mood/Affect Appropiate, Orientated x3 Other Systems: Reviewed and Negative Patient History - Patient Medical History Hx Anemia: No Hx Asthma: No Hx Chronic Obstructive Pulmonary Disease (COPD): No Hx Cancer: No Hx Cardiac Disorders: No Hx Congestive Heart Failure: No Hx Hypertension: Yes (on meds.) Hx Hypercholesterolemia: No Hx Pacemaker: No HX Cerebrovascular Accident: No Hx Seizures: Yes (drug related 2 months ago.) Hx Dementia: No Hx Diabetes: Yes (IDDM) Hx Gastrointestinal Disorders: No Hx Liver Disease: No Hx Genitourinary Disorders: No Hx Sexually Transmitted Disorders: No Hx Renal Disease (ESRD): No Hx Thyroid Disease: No Hx Human Immunodeficiency Virus (HIV): No Hx Hepatitis C: No Hx Depression: Yes Hx Suicide Attempt: Yes (Tried to oberdose "years ago") Hx Bipolar Disorder: No Hx Schizophrenia: No - Patient Surgical History Past Surgical History: Yes Hx Neurologic Surgery: No Hx Cataract Extraction: No Hx Cardiac Surgery: No Hx Lung Surgery: No Hx Breast Surgery: No Hx Breast Biopsy: No Hx Abdominal Surgery: Yes Hx Appendectomy: No Hx Cholecystectomy: Yes (2003) Hx Genitourinary Surgery: Yes (bladder prolapse) Hx Section: Yes Hx Orthopedic Surgery: No Hx Hysterectomy: No Anesthesia Reaction: Yes - PPD History Previous Implant?: Yes Documented Results: Negative w/o proof Implanted On Prior R Admission?: Yes Date: 09/19/18 - Reproductive History Last Menstrual Period: 03/02/15 Patient : No - Smoking Cessation Smoking history: Current every day smoker Have you smoked in the past 12 months: No Aproximately how many cigarettes per day: 1 Cigars Per Day: 0 Hx Chewing Tobacco Use: No Initiated information on smoking cessation: Yes 'Breaking Loose' booklet given: 09/26/18 - Substance & Tx. History Hx Alcohol Use: Yes Hx Substance Use: Yes Substance Use Type: Alcohol, Cocaine, Heroin, Opiates, Tranquilizers Hx Substance Use Treatment: Yes - Substances Abused Heroin Route: Inhalation Frequency: 1-3 times last 30 days Amount used: 2 bags Age of first use: 44 Date of Last Use: 09/15/18 Marijuana/Hashish Route: Smoking Frequency: Daily Amount used: $10 Age of first use: 14 Date of Last Use: 09/15/18 Family Disease History - Family Disease History Family Disease History: Diabetes: Father (DM, etoh), Mother, Brother, Heart Disease: Grandparent (massive CVA in his early 60s) Admission Physical Exam [facility] - Vital Signs Vital Signs: Vital Signs - 24 hr 09/26/18 12:53 Temperature 98.3 F Pulse Rate 75 Respiratory 20 Rate Blood Pressure 110/69 - Physical General Appearance: Yes: Appropriately Dressed, Obese, Anxious HEENTM: Yes: EOMI, Hearing grossly Normal, Normal ENT Inspection, Normocephalic , Normal Voice, KENNA, Pharynx Normal, Tm's normal, Other (poor dentition) Respiratory: Yes: Within Normal Limits Neck: Yes: Within Normal Limits Breast: Yes: Breast Exam Deferred Cardiology: Yes: Within Normal Limits Abdominal: Yes: Normal Bowel Sounds, Non Tender, Soft, Protuberent Genitourinary: Yes: Within Normal Limits Back: Yes: Normal Inspection Musculoskeletal: Yes: full range of Motion, Gait Steady, Pelvis Stable Extremities: Yes: Normal Capillary Refill, Normal Inspection, Normal Range of Motion, Non-Tender Neurological: Yes: texture artist II-XII NML intact, Fully Oriented, Alert, Motor Strength 5/5, Depressed Affect Integumentary: Yes: Normal Color, Dry, Warm Lymphatic: Yes: Within Normal Limits - Diagnostic (1) CHF (congestive heart failure) Current Visit: Yes Status: Chronic (2) Hx of deep venous thrombosis Current Visit: Yes Status: Acute (3) Hx of acute renal failure Current Visit: Yes Status: Chronic (4) Opiate dependence Current Visit: Yes Status: Acute Qualifiers: Substance use status: in remission Qualified Code(s): F11.21 - Opioid dependence, in remission (5) Polysubstance (excluding opioids) dependence Current Visit: Yes Status: Acute (6) Anemia Current Visit: Yes Status: Chronic (7) Cannabis dependence Current Visit: Yes Status: Chronic (8) Diabetic neuropathy associated with type 2 diabetes mellitus Current Visit: Yes Status: Chronic Qualifiers: Diabetes mellitus complication detail: diabetic polyneuropathy Qualified Code(s): E11.42 - Type 2 diabetes mellitus with diabetic polyneuropathy (9) Hypertension Current Visit: Yes Status: Chronic Qualifiers: Hypertension type: essential hypertension Qualified Code(s): I10 - Essential (primary) hypertension Comment: on meds, sees primary (10) Morbid obesity Current Visit: Yes Status: Chronic BHS Breath Alcohol Content Breath Alcohol Content: 0 Urine Pregancy Test - Result Urine Test Results: Negative - NO Line Present Urine Drug Screen - Results Drug Screen Negative: No Urine Drug Screen Results: THC-Marijuana, BZO-Benzodiazepines Inpatient Rehab Admission - Rehab Decision to Admit Inpatient rehab admission?: Yes - Initial Determination Are CD services needed?: Yes Free of communicable disease: Yes Not in need of hospitalization: Yes - Rehab Admission Criteria Previous failed treatment: Yes Poor recovery environment: Yes Comorbidities: Yes Lacks judgement: Yes Patient is meeting Inpatient Rehab admission criteria:: Yes
[2018-09-26] MEDS ORDERED: MENTHOL/PHENOL 1 EACH UD MM PRN (13:28)
[2018-09-26] MEDS ORDERED: guaiFENesin 200 MG/10 ML 10 ML UNIT-DOSE CUPS PO PRN (13:28)
[2018-09-26] MEDS ORDERED: MAG HYDROX/AL HYDROX/SIMETH 30 ML UNIT-DOSE CUP PO PRN (13:28)
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
[2018-09-26] MEDS: THIAMINE HCL 100 MG TABLET (FP) PO SCH (21:12)
[2018-09-26] MEDS: QUEtiapine FUMARATE 50 MG TABLET PO SCH (21:14)
[2018-09-26] MEDS: APIXABAN 2.5 MG TABLET PO SCH (21:14)
[2018-09-26] MEDS: traZODone HCL 100 MG TABLET (FP) PO SCH (21:14)
[2018-09-26] MEDS ORDERED: LABETALOL HCL 100 MG TABLET (FP) ONE (21:14)
[2018-09-26] MEDS: LABETALOL HCL 200 MG TABLET (FP) PO SCH (21:15)
[2018-09-27] MEDS: sitaGLIPtin PHOSPHATE 100 MG TABLET (FP) PO SCH (06:50)
[2018-09-27] MEDS ORDERED: LABETALOL HCL 100 MG TABLET (FP) ONE ×2 (09:35→19:47)
[2018-09-27] MEDS: BACITRACIN 0.9 GM PACKET TP SCH (10:39)
[2018-09-27] MEDS: QUEtiapine FUMARATE 50 MG TABLET PO SCH ×2 (10:39→21:19)
[2018-09-27] MEDS: PRENATAL VITAMINS W/ FOLIC ACID TABLET (FP) PO SCH (10:39)
[2018-09-27] MEDS: LABETALOL HCL 200 MG TABLET (FP) PO SCH ×2 (10:39→21:21)
[2018-09-27] MEDS: ESCITALOPRAM OXALATE 10 MG TABLET (FP) PO SCH (10:39)
[2018-09-27] MEDS: amLODIPine BESYLATE 10 MG TABLET (FP) PO SCH (10:40)
[2018-09-27] MEDS: APIXABAN 2.5 MG TABLET PO SCH ×2 (11:00→21:19)
[2018-09-27] MEDS: THIAMINE HCL 100 MG TABLET (FP) PO SCH (21:19)
[2018-09-27] MEDS: traZODone HCL 100 MG TABLET (FP) PO SCH (21:19)
[2018-09-28] MEDS ORDERED: PT OWN MED DRAWER 7, Y5N ONE ×2 (05:47→09:02)
[2018-09-28] MEDS: sitaGLIPtin PHOSPHATE 100 MG TABLET (FP) PO SCH (06:28)
[2018-09-28] MEDS: ACETAMINOPHEN 325 MG TABLET (FP) PO PRN (09:03)
[2018-09-28] MEDS: PRENATAL VITAMINS W/ FOLIC ACID TABLET (FP) PO SCH (09:50)
[2018-09-28] MEDS: BACITRACIN 0.9 GM PACKET TP SCH (09:50)
[2018-09-28] MEDS: amLODIPine BESYLATE 10 MG TABLET (FP) PO SCH (09:50)
[2018-09-28] MEDS: ESCITALOPRAM OXALATE 10 MG TABLET (FP) PO SCH (09:50)
[2018-09-28] MEDS: LABETALOL HCL 200 MG TABLET (FP) PO SCH ×2 (09:50→21:14)
[2018-09-28] MEDS: QUEtiapine FUMARATE 50 MG TABLET PO SCH ×2 (09:50→21:13)
[2018-09-28] MEDS: APIXABAN 2.5 MG TABLET PO SCH ×2 (09:51→21:14)
--- NOTE | 2018-09-28 11:25 | PN ---
[facility] Progress Note Note: patient has nausea,vomitted once Vital Signs Temperature 97.9 F 09/28/18 07:07 Pulse Rate 99 H 09/28/18 07:07 Respiratory Rate 18 09/28/18 07:07 Blood Pressure 132/88 09/28/18 07:07 O2 Sat by Pulse Oximetry (%) tigan 200 mgs im q 8 hrs order close monitoring
[2018-09-28] MEDS: TRIMETHOBENZAMIDE HCL 200MG/2ML INJ IM PRN ×2 (11:54→21:17)
[2018-09-28] MEDS ORDERED: cloNIDine HCL 0.1 MG TABLET PO ONE ×2 (12:15→16:08)
--- NOTE | 2018-09-28 15:48 | PN ---
S Progress Note Note: 169/123,p109,feel dizzy clonidine 0.1 mg po now close monitoring
[2018-09-28] MEDS: traZODone HCL 100 MG TABLET (FP) PO SCH (21:13)
[2018-09-28] MEDS: THIAMINE HCL 100 MG TABLET (FP) PO SCH (21:13)
[2018-09-29] MEDS ORDERED: PT OWN MED DRAWER 7, Y5N ONE ×3 (05:55→20:14)
[2018-09-29] MEDS: sitaGLIPtin PHOSPHATE 100 MG TABLET (FP) PO SCH (06:47)
[2018-09-29] MEDS: BACITRACIN 0.9 GM PACKET TP SCH (10:11)
[2018-09-29] MEDS: APIXABAN 2.5 MG TABLET PO SCH ×2 (10:11→21:27)
[2018-09-29] MEDS: QUEtiapine FUMARATE 50 MG TABLET PO SCH ×2 (10:11→21:27)
[2018-09-29] MEDS: PRENATAL VITAMINS W/ FOLIC ACID TABLET (FP) PO SCH (10:12)
[2018-09-29] MEDS: ESCITALOPRAM OXALATE 10 MG TABLET (FP) PO SCH (10:12)
[2018-09-29] MEDS: TRIMETHOBENZAMIDE HCL 200MG/2ML INJ IM PRN ×2 (10:26→18:22)
[2018-09-29] MEDS: LABETALOL HCL 200 MG TABLET (FP) PO SCH ×2 (10:55→21:27)
[2018-09-29] MEDS: amLODIPine BESYLATE 10 MG TABLET (FP) PO SCH (10:55)
[2018-09-29] MEDS: ACETAMINOPHEN 325 MG TABLET (FP) PO PRN (18:20)
[2018-09-29] MEDS: traZODone HCL 100 MG TABLET (FP) PO SCH (21:27)
[2018-09-29] MEDS: THIAMINE HCL 100 MG TABLET (FP) PO SCH (21:27)
[2018-09-29] MEDS: MELATONIN 5 MG TABLETS PO PRN (21:29)
[2018-09-30] MEDS ORDERED: PT OWN MED DRAWER 7, Y5N ONE ×4 (03:03→10:39)
[2018-09-30] MEDS: sitaGLIPtin PHOSPHATE 100 MG TABLET (FP) PO SCH (06:28)
[2018-09-30] MEDS: TRIMETHOBENZAMIDE HCL 200MG/2ML INJ IM PRN (09:06)
[2018-09-30] MEDS: BACITRACIN 0.9 GM PACKET TP SCH (09:13)
[2018-09-30] MEDS: APIXABAN 2.5 MG TABLET PO SCH (09:53)
[2018-09-30] MEDS: PRENATAL VITAMINS W/ FOLIC ACID TABLET (FP) PO SCH (09:54)
[2018-09-30] MEDS: ESCITALOPRAM OXALATE 10 MG TABLET (FP) PO SCH (09:54)
[2018-09-30] MEDS: QUEtiapine FUMARATE 50 MG TABLET PO SCH (09:54)
[2018-09-30] MEDS: amLODIPine BESYLATE 10 MG TABLET (FP) PO SCH (09:54)
[2018-09-30] MEDS: LABETALOL HCL 200 MG TABLET (FP) PO SCH (09:54)
--- NOTE | 2018-09-30 15:14 | PN ---
S Progress Note (SOAP) Subjective: I feel dizzy I sit on myself on the floor I do not think I hit my head Objective: 09/30/18 15:08 48 years old female admitted on 09/26/18 for opiate rehabilitation, observed patient sitting on floor, alert assist to bed, denies pain, no skin abrasion noted at this time, no bruise noted, able to walk with one assist from door to bed 110/69, ap 106 98.4 95% cold sweat, pale, weak, medical history of CFF, DVT, IV filter 2014 HTN, PE diabetes taking amlodipine lobatalol, apixaban and sitagliptin due to the risks of DVT, PE, and taking aplixaban unwitnessed fall neuro evaluation rule out cranio hematoma deposition return to 3E rehabilitation continue opiate rehab report to ER Dr. Lau ambulance called Assessment: 09/30/18 15:20 rule out cranio hematoma neuro evaluation Plan: ER evaluation CT of the brain
[2018-09-30] MEDS: ACETAMINOPHEN 325 MG TABLET (FP) PO PRN (15:41)
--- NOTE | 2018-09-30 23:45 | PN ---
S Progress Note Note: Report received from ER provider: Patient w/u WNL; CT Scan - WNL. Patient cleared to return to rehab. Patients history and medications reviewed. Plan: Parameters for all B/P meds D/C Tigan and start compazine PRN D/C Trazodone 100 mg - (? possible cause of side effects) Psych referral Encourage increased fluids
[2018-10-01] MEDS: LABETALOL HCL 200 MG TABLET (FP) PO SCH (00:34)
[2018-10-01] MEDS: traZODone HCL 100 MG TABLET (FP) PO SCH (00:34)
[2018-10-01] MEDS ORDERED: PT OWN MED DRAWER 7, Y5N ONE ×2 (01:42→08:52)
[2018-10-01] MEDS: THIAMINE HCL 100 MG TABLET (FP) PO SCH ×2 (01:45→21:04)
[2018-10-01] MEDS: QUEtiapine FUMARATE 50 MG TABLET PO SCH ×3 (01:45→21:04)
[2018-10-01] MEDS: MELATONIN 5 MG TABLETS PO PRN ×2 (01:45→21:04)
[2018-10-01] MEDS: APIXABAN 2.5 MG TABLET PO SCH ×3 (01:45→21:04)
[2018-10-01] MEDS: sitaGLIPtin PHOSPHATE 100 MG TABLET (FP) PO SCH (07:57)
--- NOTE | 2018-10-01 09:33 | PN ---
[facility] Progress Note Note: Patient had fall on 09/30/2018. On Eliquis, sent to [facility] for CT scan , which indicates no head injury or evidence of bleed. Patient aware of results.
--- NOTE | 2018-10-01 09:37 | PN ---
S Progress Note Note: Patient requesting Zofran for nausea. She is presently on Lexapro. The addition of Zofran may increase the QTc interval. Compazine has been ordered for nausea and vomiting. No change in the order at the present time.
--- NOTE | 2018-10-01 09:39 | PN ---
S Progress Note (SOAP) Subjective: Requesting Trazadone for sleep; has melatonin. Consult with Psychiatry is pending.
[2018-10-01] MEDS: ESCITALOPRAM OXALATE 10 MG TABLET (FP) PO SCH (10:27)
[2018-10-01] MEDS: LABETALOL HCL 100 MG TABLET (FP) PO SCH ×2 (10:28→21:05)
[2018-10-01] MEDS: PRENATAL VITAMINS W/ FOLIC ACID TABLET (FP) PO SCH (10:28)
[2018-10-01] MEDS: BACITRACIN 0.9 GM PACKET TP SCH (10:28)
[2018-10-01] MEDS: amLODIPine BESYLATE 10 MG TABLET (FP) PO SCH (10:28)
--- NOTE | 2018-10-01 10:45 | EKG ---
Test Reason : Blood Pressure : / mmHG Vent. Rate : 103 BPM Atrial Rate : 103 BPM P-R Int : 144 ms QRS Dur : 092 ms QT Int : 354 ms P-R-T Axes : 028 063 025 degrees QTc Int : 463 ms SINUS TACHYCARDIA CANNOT RULE OUT ANTERIOR INFARCT (CITED ON OR BEFORE 27-AUG-2018) ABNORMAL ECG WHEN COMPARED WITH ECG OF 15-SEP-2018 16:26, NO SIGNIFICANT CHANGE WAS FOUND Confirmed by Glen Izaguirre MD ([id number]) on 10/01/2018 10:44:47 AM Referred By: Confirmed By:Glen Izaguirre MD
[2018-10-01 12:11] LABS: INR 1.24 (0.83-1.09); PROTHROMBIN TIME (PATIENT) 14.7 SEC (9.7-13.0)
[2018-10-01] MEDS: PROCHLORPERAZINE MALEATE 5 MG TABLET PO PRN (13:04)
--- NOTE | 2018-10-01 14:00 | PN ---
[facility] Progress Note (SOAP) Subjective: Patient c/o feeling nauseated, given compezine. BP taken and it was elevated: 181/129. BP medication was held this AM for a low BP ( she is on amlodipne and labetalol). Next dose of labetalol would be a 10pm.Asymptomatic, except for nausea. Objective: 10/01/18 13:55 Vital Signs - 8 hr 10/01/18 10/01/18 10/01/18 07:22 07:55 09:34 Temperature 97.8 F 97.8 F 97.9 F Pulse Rate 99 H 99 H 84 Respiratory 16 16 18 Rate Blood Pressure 128/87 128/87 96/62 10/01/18 10/01/18 11:22 13:35 Temperature 98.7 F Pulse Rate 103 H 94 H Respiratory 17 Rate Blood Pressure 113/76 172/128 H 10/01/18 13:56 BP at 96/62 this AM, her morning HTN medications were held. Now, her BP is elevated at 181/129. HR is normal at 94, heart rate regular, S1S2 audible. skin is dry, no anxiety noted,sleeping. 10/01/18 14:04 10/01/18 14:07 Assessment: 10/01/18 14:06 Hypertension Plan: Stat order of Labetalol given. RN to take BP 30 minutes after administration.
[2018-10-01] MEDS ORDERED: LABETALOL HCL 100 MG TABLET (FP) ONE (14:08)
[2018-10-01] MEDS ORDERED: LABETALOL HCL 200 MG TABLET (FP) PO ONE (14:15)
[2018-10-02] MEDS ORDERED: PT OWN MED DRAWER 7, Y5N ONE ×3 (03:27→13:09)
[2018-10-02] MEDS: sitaGLIPtin PHOSPHATE 100 MG TABLET (FP) PO SCH (06:41)
[2018-10-02] MEDS: BACITRACIN 0.9 GM PACKET TP SCH (10:24)
[2018-10-02] MEDS: QUEtiapine FUMARATE 50 MG TABLET PO SCH ×2 (10:25→23:31)
[2018-10-02] MEDS: ESCITALOPRAM OXALATE 10 MG TABLET (FP) PO SCH (10:25)
[2018-10-02] MEDS: PRENATAL VITAMINS W/ FOLIC ACID TABLET (FP) PO SCH (10:25)
[2018-10-02] MEDS: amLODIPine BESYLATE 10 MG TABLET (FP) PO SCH (10:26)
[2018-10-02] MEDS: LABETALOL HCL 100 MG TABLET (FP) PO SCH (10:26)
[2018-10-02] MEDS: APIXABAN 2.5 MG TABLET PO SCH ×2 (10:27→23:31)
--- NOTE | 2018-10-02 14:47 | PN ---
[facility] Progress Note Note: Discussed effects of trazadone with android programmer. There are no S/E that would result in a fall. Trazadone restarted.
[2018-10-02] MEDS: PROCHLORPERAZINE MALEATE 5 MG TABLET PO PRN (15:07)
[2018-10-02] MEDS ORDERED: LABETALOL HCL 100 MG TABLET (FP) ONE (15:29)
--- NOTE | 2018-10-02 15:33 | PN ---
S Progress Note (SOAP) Subjective: Patient with elevated BP at 182/134. She is feeling nauseated. States that she always gets nauseated when her BP is elevated. Patient's BP medications, Norvasc and Labetalol, were both held this AM because her BP was < 126. This happened yesterday also. Objective: 10/02/18 15:31 Appears tired. Resting, other than feelings of nausea, asymptomatic Assessment: 10/02/18 15:32 Hypertensive Plan: Labetalol 400mg x 1, orders changed. Labetalol to be held if SBP< 100, DBP < 60.
[2018-10-02] MEDS ORDERED: LABETALOL HCL 200 MG TABLET (FP) PO ONE (16:00)
[2018-10-02] MEDS ORDERED: TRIMETHOBENZAMIDE HCL 200MG/2ML INJ IM PRN (16:13)
--- NOTE | 2018-10-02 16:34 | PN ---
Progress Note, Physician Chief Complaint: Called received from GEORGI Bowen re: patient s/p unwitnessed fal with elevated BP 196/137 History of Present Illness: Patient with hx of multiple medical problems : CHF, HTN, Kidney disease, DMII, DVT. Patient reports she was walking out of the bathroom felt dizzy and fell. Patient does not recall how she fell. Patient denies changes LOC. Patient reports she has been vomiting since breakfast and BP elevated. Patient denies CP , abdominal pain, headache or paresthesia. - Current Medication List Current Medications: Active Medications Acetaminophen (Tylenol -) 650 mg PO Q4H PRN PRN Reason: FEVER Last Admin: 09/30/18 15:41 Dose: 650 mg Al Hydroxide/Mg Hydroxide (Mylanta Oral Suspension -) 30 ml PO Q6H PRN PRN Reason: DYSPEPSIA Last Admin: 09/28/18 09:03 Dose: 30 ml Amlodipine Besylate (Norvasc -) 10 mg PO DAILY [facility] Apixaban (Eliquis -) 2.5 mg PO BID [facility] Last Admin: 10/02/18 10:27 Dose: 2.5 mg Bacitracin (Bacitracin -) 0.9 gm TP DAILY [facility] Last Admin: 10/02/18 10:24 Dose: 0.9 gm Escitalopram Oxalate (Lexapro -) 10 mg PO DAILY [facility] Last Admin: 10/02/18 10:25 Dose: 10 mg Eucalyptus/Menthol/Phenol/Sorbitol (Cepastat Lozenge -) 1 each MM Q4H PRN PRN Reason: SORE THROAT Guaifenesin (Robitussin -) 10 ml PO Q6H PRN PRN Reason: COUGH Labetalol HCl (Normodyne -) 400 mg PO BID [facility] Stop: 10/09/18 22:01 Melatonin (Melatonin) 5 mg PO HS PRN PRN Reason: INSOMNIA Last Admin: 10/01/18 21:04 Dose: 5 mg Multivit/Folic Acid/Iron ( Vitamins (Sjr) -) 1 tab PO DAILY [facility] Last Admin: 10/02/18 10:25 Dose: 1 tab Prochlorperazine Maleate (Compazine -) 10 mg PO Q4H PRN PRN Reason: NAUSEA AND/OR VOMITING Last Admin: 10/02/18 15:07 Dose: 10 mg Quetiapine Fumarate (Seroquel -) 50 mg PO BID [facility] Last Admin: 10/02/18 10:25 Dose: 50 mg Sitagliptin Phosphate (Januvia -) 100 mg PO DAILY@0700 [facility] Last Admin: 10/02/18 06:41 Dose: 100 mg Thiamine HCl (Vitamin B1 -) [address] [facility] Last Admin: 10/01/18 21:04 Dose: 100 mg Trazodone HCl (Desyrel -) [address] [facility] Trimethobenzamide HCl (Tigan Injection -) 200 mg IM ONCE PRN PRN Reason: NAUSEA AND/OR VOMITING Stop: 11/01/18 16:12 - Objective Vital Signs: Vital Signs Temperature 97.9 F 10/02/18 15:13 Pulse Rate 116 H 10/02/18 15:13 Respiratory Rate 18 10/02/18 15:13 Blood Pressure 182/134 H 10/02/18 15:13 O2 Sat by Pulse Oximetry (%) Repeat BP 196/122, P98.9, P87, RR18 Constitutional: Yes: Obese Eyes: Yes: WNL HENT: Yes: WNL Neck: Yes: WNL, Supple Cardiovascular: Yes: WNL, Tachycardia Respiratory: Yes: WNL Gastrointestinal: Yes: Normal Bowel Sounds, Soft Musculoskeletal: Yes: WNL Extremities: Yes: WNL Edema: No Integumentary: Yes: WNL Neurological: Yes: Alert, Oriented, Cran Nerves II-XII Intact Labs: INR, PTT INR 1.24 (0.83-1.09) H 10/01/18 10:10 Problem List - Problems (1) CHF (congestive heart failure) Code(s): I50.9 - HEART FAILURE, UNSPECIFIED (2) Hx of deep venous thrombosis Code(s): Z86.718 - PERSONAL HISTORY OF OTHER VENOUS THROMBOSIS AND EMBOLISM (3) Hx of acute renal failure Code(s): Z87.448 - PERSONAL HISTORY OF OTHER DISEASES OF URINARY SYSTEM (4) Opiate dependence Code(s): F11.20 - OPIOID DEPENDENCE, UNCOMPLICATED Qualifiers: Substance use status: in remission Qualified Code(s): F11.21 - Opioid dependence, in remission (5) Polysubstance (excluding opioids) dependence Code(s): F19.20 - OTHER PSYCHOACTIVE SUBSTANCE DEPENDENCE, UNCOMPLICATED (6) Anemia Code(s): D64.9 - ANEMIA, UNSPECIFIED (7) Cannabis dependence Code(s): F12.20 - CANNABIS DEPENDENCE, UNCOMPLICATED (8) Diabetic neuropathy associated with type 2 diabetes mellitus Code(s): E11.40 - TYPE 2 DIABETES MELLITUS WITH DIABETIC NEUROPATHY, UNSP Qualifiers: Diabetes mellitus complication detail: diabetic polyneuropathy Qualified Code(s): E11.42 - Type 2 diabetes mellitus with diabetic polyneuropathy (9) Hypertension Code(s): I10 - ESSENTIAL (PRIMARY) HYPERTENSION Qualifiers: Hypertension type: essential hypertension Qualified Code(s): I10 - Essential (primary) hypertension (10) Morbid obesity Code(s): E66.01 - MORBID (SEVERE) OBESITY DUE TO EXCESS CALORIES Assessment/Plan Patient evaluated by the bedside, vomiting. patient Aox3, no changes in LOC EENT WNL no respiratory distress s1 s2 , no jvd lungs clear throughout skin intact no signs of injury or trauma Full ROM s/p fall and elevated blood pressure Fall Protocol #1 Patient sent to [facility] via [facility] for for further evaluation. writer producer attempted to endorse client multiple times without success.
[2018-10-02 18:38] VITALS: BP 192/130; PULSE 91; TEMP 99.2
[2018-10-02] MEDS ORDERED: traZODone HCL 50 MG TABLET (FP) PO SCH (22:00)
[2018-10-02] MEDS: THIAMINE HCL 100 MG TABLET (FP) PO SCH (23:31)
[2018-10-03] MEDS ORDERED: LABETALOL HCL 200 MG TABLET (FP) PO SCH (10:00)
[2018-10-03] MEDS ORDERED: amLODIPine BESYLATE 10 MG TABLET (FP) PO SCH ×2 (10:00)
== END 2018-10-02 23:43 | disposition short-term general hospital (02) | DRG 772 ==
LOC: YASAS 12:38 → Y3E 13:12
PROVIDERS: ADMIT Neuromusculoskeletal Medicine & OMM; ATTEND Neuromusculoskeletal Medicine & OMM
PROC: HZ42ZZZ Group Counseling for Substance Abuse Treatment, Cognitive-Behavioral (ICD-10-PCS; principal; 2018-09-26)
DX: F11.20 Opioid dependence, uncomplicated (principal); F12.20 Cannabis dependence, uncomplicated; F19.20 Other psychoactive substance dependence, uncomplicated; F41.9 Anxiety disorder, unspecified; D64.9 Anemia, unspecified; I11.0 Hypertensive heart disease with heart failure; I50.9 Heart failure, unspecified; E11.42 Type 2 diabetes mellitus with diabetic polyneuropathy; E66.01 Morbid (severe) obesity due to excess calories; Z68.41 Body mass index [BMI] 40.0-44.9, adult; Z87.448 Personal history of other diseases of urinary system; Z86.69 Personal history of other diseases of the nervous system and sense organs; Z86.718 Personal history of other venous thrombosis and embolism; Z79.01 Long term (current) use of anticoagulants; R42 Dizziness and giddiness; W18.39XA Other fall on same level, initial encounter; Y93.89 Activity, other specified; Y92.231 Patient bathroom in hospital as the place of occurrence of the external cause; Y99.8 Other external cause status
CPT/HCPCS: 36415; 82962; 85610; 93005; 93010; J0735

== ENCOUNTER 2018-09-30 16:34 | Emergency (ER) | payer OTHER ==
[2018-09-30 17:09] VITALS: BP 169/117; PULSE 80; TEMP 98.8; BMI 41.4
[2018-09-30 19:18] LABS: BASO % 1.5 % (0-2.0); EOS % 0.9 % (0-4.5); HEMATOCRIT 38.7 % (32.4-45.2); HEMOGLOBIN 13.4 GM/dL (10.7-15.3); LYMPH % 19.3 % (8-40); MCH 30.6 pg (25.7-33.7); MCHC 34.7 g/dl (32.0-36.0); MEAN CELL VOLUME 88.2 fl (80-96); MEAN PLT VOLUME 8.9 fl (7.5-11.1); MONO % 7.3 % (3.8-10.2); PLATELET COUNT 396 K/MM3 (134-434); RBC 4.38 M/mm3 (3.60-5.2); RDW 13.6 % (11.6-15.6); WHITE BLOOD COUNT 9.7 K/mm3 (4.0-10.0)
[2018-09-30] MEDS ORDERED: SODIUM CHLORIDE 1,000 ML IV STA (19:18)
[2018-09-30] MEDS ORDERED: ACETAMINOPHEN 1000 MG/100 ML VIAL (NON FORMULARY) IVPB ONE (19:18)
--- NOTE | 2018-09-30 19:30 | PDOC ---
History of Present Illness - General Chief Complaint: Injury Stated Complaint: FALL Time Seen by Provider: 09/30/18 18:37 History Source: Patient Exam Limitations: No Limitations - History of Present Illness Initial Comments: 09/30/18 19:27 Pt is a 48yo F with PMH of opioid dependence/heroin use, DVT s/p IVC filter on Eliquis, NIDDM, HTN, Anxiety, Depression BIBA from [facility] after syncope. Pt states that she got up to go to the bathroom, felt lightheaded, started to feel flushed, had tunnel vision and passed out. She also has been feeling nauseous since for the past 2 days. She has not passed out before. Endorsing headache. Denies diarrhea, chest pain, sob, back pain, abdominal pain, urinary symptoms, fevers, chills. PMH: see hpi PSH: cholecystectomy Meds: see med rec Allergies: zofran Past History - Past Medical History Allergies/Adverse Reactions: Allergies Allergy/AdvReac Type Severity Reaction Status Date / Time ondansetron [From Zofran] AdvReac Severe Verified 09/26/18 12:53 Home Medications: Ambulatory Orders Pregabalin [Lyrica] 100 mg PO TID 10/02/16 traZODone HCL [Desyrel -] 100 mg PO HS 02/13/18 Amlodipine Besylate 10 mg PO DAILY #30 tablet 08/18/18 Apixaban [Eliquis] 2.5 mg PO BID #60 tablet 08/18/18 Bacitracin - [Bacitracin Topical Ointment -] 1 applic TP DAILY #1 tube 08/18/18 Labetalol HCl [Normodyne -] 400 mg PO BID #120 tablet 08/18/18 Sitagliptin Phosphate [Januvia] 100 mg PO DAILY #30 tablet 08/18/18 Escitalopram Oxalate [Lexapro -] 10 mg PO DAILY #30 tablet 09/23/18 Quetiapine Fumarate [Seroquel -] 50 mg PO BID #30 tablet 09/23/18 Anemia: No Asthma: No Cancer: No Cardiac Disorders: No CVA: No COPD: No CHF: No DVT: Yes Dementia: No Diabetes: Yes Dialysis: No ([facility] 2016.) GI Disorders: No Disorders: No HTN: Yes Hypercholesterolemia: No Kidney Stones: No Liver Disease: No Psychiatric Problems: Yes (anxiety depression) Seizures: No Thyroid Disease: No - Surgical History Abdominal Surgery: Yes Appendectomy: No Cardiac Surgery: No Cholecystectomy: Yes (2003) Lung Surgery: No Neurologic Surgery: No Orthopedic Surgery: No - Reproductive History PID: No - Immunization History Td Vaccination: Yes Immunization Up to Date: Yes - Suicide/Smoking/Psychosocial Hx Smoking Status: No Smoking History: Former smoker Have you smoked in the past 12 months: No Number of Cigarettes Smoked Daily: 5 Cigars Per Day: 0 Information on smoking cessation initiated: No 'Breaking Loose' booklet given: 09/26/18 Hx Alcohol Use: No Drug/Substance Use Hx: Yes Substance Use Type: Alcohol, Cocaine, Heroin, Opiates, Tranquilizers Hx Substance Use Treatment: Yes Review of Systems - Review of Systems Constitutional: No: Chills, Fever, Weakness HEENTM: No: Eye Pain, Double Vision, Ear Discharge Respiratory: No: Cough, Shortness of Breath Cardiac (ROS): Yes: Syncope. No: Chest Pain, Lightheadedness, Palpitations ABD/GI: Yes: Nausea. No: Abdominal Distended, Constipated, Diarrhea, Rectal Bleeding, Vomiting, Tarry Stools : No: Symptoms Reported Musculoskeletal: No: Back Pain, Joint Pain, Neck Pain Integumentary: No: Bruising, Lesions Neurological: Yes: Headache. No: Numbness, Paresthesia, Tingling, Tremors, Weakness *Physical Exam - Vital Signs Last Vital Signs Temp Pulse Resp BP Pulse Ox 98.8 F 80 18 169/117 H 97 09/30/18 17:00 09/30/18 17:00 09/30/18 17:00 09/30/18 17:00 09/30/18 17:00 - Physical Exam General Appearance: Yes: Appropriately Dressed, Obese. No: Apparent Distress HEENT: positive: EOMI, KENNA, Normal ENT Inspection Neck: positive: Trachea midline, Supple. negative: Lymphadenopathy (R), Lymphadenopathy (L) Respiratory/Chest: positive: Lungs Clear, Normal Breath Sounds Cardiovascular: positive: Regular Rhythm, Regular Rate, S1, S2. negative: Edema , JVD, Murmur Vascular Pulses: Carotid (R): 2+, Carotid (L): 2+, Dorsalis-Pedis (R): 2+, Doralis-Pedis (L): 2+ Gastrointestinal/Abdominal: positive: Normal Bowel Sounds, Soft. negative: Tender Musculoskeletal: negative: CVA Tenderness Extremity: positive: Normal Capillary Refill, Pelvis Stable. negative: Pedal Edema, Swelling Integumentary: positive: Normal Color, Dry, Warm Neurologic: positive: clinic physician II-XII NML intact, Fully Oriented, Alert, Normal Mood/ Affect, Normal Response, Motor Strength 5/5 Moderate Sedation - Procedure Monitoring Vital Signs: Procedure Monitoring Vital Signs Temperature 98.8 F 09/30/18 17:00 Pulse Rate 80 09/30/18 17:00 Respiratory Rate 18 09/30/18 17:00 Blood Pressure 169/117 H 09/30/18 17:00 O2 Sat by Pulse Oximetry (%) 97 09/30/18 17:00 ED Treatment Course - LABORATORY CBC & Chemistry Diagram: 09/30/18 19:10 09/30/18 19:10 - ADDITIONAL ORDERS Additional order review: 09/30/18 19:10 RBC 4.38 MCV 88.2 MCHC 34.7 RDW 13.6 MPV 8.9 Neutrophils % 71.0 Lymphocytes % 19.3 D Monocytes % 7.3 Eosinophils % 0.9 Basophils % 1.5 - RADIOLOGY Radiology Studies Ordered: Category Date Time Status HEAD CT WITHOUT CONTRAST [CT] Stat CT Scan 09/30/18 18:42 Ordered Medical Decision Making - Medical Decision Making 10/01/18 00:55 Pt is a 48yo F with PMH of opioid dependence/heroin use, DVT s/p IVC filter on Eliquis, NIDDM, HTN, Anxiety, Depression BIBA from [facility] after syncope. Pt states that she got up to go to the bathroom, felt lightheaded, started to feel flushed, had tunnel vision and passed out. She also has been feeling nauseous since for the past 2 days. She has not passed out before. Endorsing headache. Denies diarrhea, chest pain, sob, back pain, abdominal pain, urinary symptoms, fevers, chills. Vitals: bp slightly elevated otherwise wnl PE: benign, normal neurological exam, normal heart sounds, normal breath sounds ddx includes but not limited to arrhythmia, vasovagal, pe, cva, orthostatic low suspicion for pe. cbc, cmp, trop ekg, ct head -iv tylenol, iv fluids, ativan pt feeling better but til nauseous. has allergy in chart for zofran although pt states she has had it in the past. QTc not prolonged. will give po reglan CT head negative for bleed and labs wnl. EKG- snus tach, no derrell or depressions. normal axis. Qtc 463. similar to prior ekg of 09/15/2018 PT can be dc back to [facility] *DC/Admit/Observation/Transfer Diagnosis at time of Disposition: Nausea Syncope Qualifiers: Syncope type: vasovagal syncope Qualified Code(s): R55 - Syncope and collapse - Discharge Dispostion Condition at time of disposition: Improved Decision to Admit order: No - Referrals Referrals: Doreen Kahn MD [Primary Care Provider] - - Patient Instructions Printed Discharge Instructions: DI for Syncope in Adults (Fainting), DI for Nausea -- Adult Additional Instructions: You were seen in the emergency room today for passing out. This is probably vasovagal and due to dehydration. Please keep yourself well hydrated and eat healthy meals. come back to the emergency room if you have increasing headache, you have weakness in your arms and/or legs, you have worsening nausea, you have changes in your vision or if any new concerning symptom develops. Thank you - Post Discharge Activity
--- NOTE | 2018-09-30 19:32 | PDOC ---
Attending Attestation - HPI HPI: 09/30/18 20:36 The patient is a 48 year old female, with a significant past medical history of HTN (intermittent compliance due to insurance complications), kidney stones requiring lithotripsy (6 years ago, Dr. Hernandez and Dr. Brown), polysubstance abuse, diabetes, CHF, and DVT's (s/p IVC filter on AC), who presents to the emergency department s/p fall. As per patient she was at detox when she became lightheaded, see tunnel-vision, and felt warm thus she fell. Patient notes a headache and nausea since Sunday. Allergies: Ondansetron. Primary Care Physician: Dr. Kahn - Physicial Exam PE: 09/30/18 20:36 Agree with resident exam. <Santos Funes - Last Filed: 09/30/18 20:35> - Resident Resident Name: Layla Garcia - ED Attending Attestation I have performed the following: I have examined & evaluated the patient, The case was reviewed & discussed with the resident, I agree w/resident's findings & plan - Medical Decision Making 09/30/18 22:22 48-year-old female sent from rehabilitation after a syncopal episode without injury Labs , head CT and EKG for medical clearance Plan for discharge back to the rehabilitation facility 09/30/18 22:23 <Lisa Cross - Last Filed: 09/30/18 22:23> Attestations - Attestations 09/30/18 20:36 Documentation prepared by Santos Funes, acting as clinical specialist medical device for Lisa Cross DO. <Santos Funes - Last Filed: 09/30/18 20:35>
[2018-09-30] MEDS ORDERED: ACETAMINOPHEN INJECTION 100 ML IVPB ONE (19:34)
[2018-09-30 19:58] LABS: BLOOD UREA NITROGEN 20 mg/dL (7-18); CHLORIDE 108 mmol/L (98-107); CO2 20 mmol/L (21-32); CREATININE 0.8 mg/dL (0.55-1.3); GLUCOSE,RANDOM 146 mg/dL (74-106); SODIUM 138 mmol/L (136-145)
[2018-09-30 19:59] LABS: ALBUMIN 4.2 g/dl (3.4-5.0); ALK PHOS 103 U/L (45-117); ANION GAP 11 MMOL/L (8-16); BILIRUBIN,TOTAL 0.8 mg/dL (0.2-1); CALCIUM 9.8 mg/dL (8.5-10.1); SGOT/AST 25 U/L (15-37); SGPT/ALT 46 U/L (13-61); TOT PROT 7.6 g/dl (6.4-8.2)
[2018-09-30] MEDS ORDERED: LORazepam 1 MG TABLET PO ONE (20:48)
[2018-09-30] MEDS ORDERED: LORazepam 2 MG/ML SDV VIAL ONE (21:25)
[2018-09-30] MEDS ORDERED: METOCLOPRAMIDE HCL 10 MG TABLET (FP) PO ONE ×2 (23:13→23:16)
== END 2018-10-01 01:40 | disposition home or self-care (01) ==
LOC: SUPCPDRO 16:34 → JER 16:34
PROC: 3E0337Z Introduction of Electrolytic and Water Balance Substance into Peripheral Vein, Percutaneous Approach (ICD-10-PCS; principal; 2018-09-30)
PROC: 3E033NZ Introduction of Analgesics, Hypnotics, Sedatives into Peripheral Vein, Percutaneous Approach (ICD-10-PCS; 2018-09-30)
DX: R11.0 Nausea (principal); W18.39XA Other fall on same level, initial encounter; Y93.89 Activity, other specified; Y92.231 Patient bathroom in hospital as the place of occurrence of the external cause; Y99.8 Other external cause status; I10 Essential (primary) hypertension; E11.9 Type 2 diabetes mellitus without complications; Z79.84 Long term (current) use of oral hypoglycemic drugs; F41.9 Anxiety disorder, unspecified; F32.9 Major depressive disorder, single episode, unspecified; F11.20 Opioid dependence, uncomplicated; Z86.718 Personal history of other venous thrombosis and embolism; Z79.01 Long term (current) use of anticoagulants; Z95.828 Presence of other vascular implants and grafts
CPT/HCPCS: 36415; 70450-TC; 80053; 84484; 84702; 85025; 96361; 96374; 99283-25; J0131; J7030

== ENCOUNTER 2018-10-02 18:57 | Observation (INO) | payer OTHER ==
--- NOTE | 2018-10-02 20:09 | PDOC ---
History of Present Illness - General Chief Complaint: Injury Stated Complaint: FALL Time Seen by Provider: 10/02/18 20:06 - History of Present Illness Initial Comments: The pt is a 48F w/ a history of HTN, CHF, CKD, T2DM, BLE DVT s/p IVF filter ( eliquis) who presents for evaluation s/p syncopal fall at [address] today. Pt reports walking from the bathroom, feeling lightheaded, and then woke up on the floor. Denies RO, vision changes, chest pain, SOB. In the ED, pt denies dizziness, RO, vision changes, nausea, chest pain, SOB. Denies fevers, abdominal pain, dysuria, hematuria, changes in sensation Since Sunday endorses NBNB vomiting and non-bloody diarrhea. Reports last heroine use 2 weeks ago 10/02/18 20:29 Past History - Past Medical History Allergies/Adverse Reactions: Allergies Allergy/AdvReac Type Severity Reaction Status Date / Time ondansetron [From Zofran] AdvReac Severe Verified 10/02/18 19:59 Home Medications: Ambulatory Orders Pregabalin [Lyrica] 100 mg PO TID 10/02/16 traZODone HCL [Desyrel -] 100 mg PO HS 02/13/18 Amlodipine Besylate 10 mg PO DAILY #30 tablet 08/18/18 Apixaban [Eliquis] 2.5 mg PO BID #60 tablet 08/18/18 Bacitracin - [Bacitracin Topical Ointment -] 1 applic TP DAILY #1 tube 08/18/18 Labetalol HCl [Normodyne -] 400 mg PO BID #120 tablet 08/18/18 Sitagliptin Phosphate [Januvia] 100 mg PO DAILY #30 tablet 08/18/18 Escitalopram Oxalate [Lexapro -] 10 mg PO DAILY #30 tablet 09/23/18 Quetiapine Fumarate [Seroquel -] 50 mg PO BID #30 tablet 09/23/18 Anemia: No Asthma: No Cancer: No Cardiac Disorders: No CVA: No COPD: No CHF: No DVT: Yes Dementia: No Diabetes: Yes Dialysis: No ([facility] 2016.) GI Disorders: No Disorders: No HTN: Yes Hypercholesterolemia: No Kidney Stones: No Liver Disease: No Psychiatric Problems: Yes (anxiety depression) Seizures: No Thyroid Disease: No - Surgical History Abdominal Surgery: Yes Appendectomy: No Cardiac Surgery: No Cholecystectomy: Yes (2003) Lung Surgery: No Neurologic Surgery: No Orthopedic Surgery: No - Reproductive History PID: No - Immunization History Td Vaccination: Yes Immunization Up to Date: Yes - Suicide/Smoking/Psychosocial Hx Smoking Status: No Smoking History: Current some day smoker Have you smoked in the past 12 months: No Number of Cigarettes Smoked Daily: 5 Cigars Per Day: 0 Information on smoking cessation initiated: No 'Breaking Loose' booklet given: 09/26/18 Hx Alcohol Use: Yes Drug/Substance Use Hx: No Substance Use Type: Alcohol, Cocaine, Heroin, Opiates, Tranquilizers Hx Substance Use Treatment: Yes Review of Systems - Review of Systems Able to Perform ROS?: Yes Comments:: GENERAL/CONSTITUTIONAL: No fever. No weakness HEAD, EYES, EARS, NOSE AND THROAT: No change in vision or hearing. No sore throat CARDIOVASCULAR: No chest pain or shortness of breath RESPIRATORY: Denies hemoptysis GENITOURINARY: No dysuria, frequency, or change in urination MUSCULOSKELETAL: No joint or muscle swelling or pain. No neck or back pain SKIN: No rash NEUROLOGIC: No vertigo, or change in strength/sensation ENDOCRINE: No increased thirst. No abnormal weight change HEMATOLOGIC/LYMPHATIC: +hx of DVT ALLERGIC/IMMUNOLOGIC: No hives or skin allergy 10/03/18 05:16 Is the patient limited Guinean proficient: No *Physical Exam - Vital Signs Last Vital Signs Temp Pulse Resp BP Pulse Ox 98.9 F 87 18 185/92 H 99 10/02/18 19:00 10/02/18 19:00 10/02/18 19:00 10/02/18 19:00 10/02/18 19:00 - Physical Exam Comments: GENERAL: Awake, alert, and oriented to person/place/time, in no acute distress HEAD: No signs of trauma, normocephalic, atraumatic EYES: PERRLA, EOMI, sclera anicteric, conjunctiva clear ENT: Hearing grossly normal, oropharynx clear without exudates. Moist mucosa LUNGS: No distress, speaks full sentences, clear to auscultation bilaterally HEART: Regular rate and rhythm, normal S1 and S2, no murmurs appreciated, peripheral pulses normal and equal bilaterally ABDOMEN: Soft, protuberant, nontender, normoactive bowel sounds. No guarding, no rebound EXTREMITIES: Normal inspection, Normal range of motion, no edema. No clubbing or cyanosis NEUROLOGICAL: Cranial nerves II through XII grossly intact. Normal speech, normal gait, no focal sensorimotor deficits SKIN: Warm, Dry 10/03/18 05:19 Moderate Sedation - Procedure Monitoring Vital Signs: Procedure Monitoring Vital Signs Temperature 98.9 F 10/02/18 19:00 Pulse Rate 87 10/02/18 19:00 Respiratory Rate 18 10/02/18 19:00 Blood Pressure 185/92 H 10/02/18 19:00 O2 Sat by Pulse Oximetry (%) 99 10/02/18 19:00 ED Treatment Course - LABORATORY CBC & Chemistry Diagram: 10/03/18 06:40 10/03/18 06:40 Medical Decision Making - Medical Decision Making The pt is a 48F who presents for evaluation s/p syncopal fall CXR w/o PNA or PNX No leukocytosis No anemia 10/02/18 21:28 CT head w/o evidence of acute pathology 10/03/18 05:20 Trop I neg No ANASTASIA Lytes wnl LFTs wnl Serum preg neg Will obtain CTA chest to r/o PE Plan for admission to tele obs for syncope 10/03/18 05:21 *DC/Admit/Observation/Transfer Diagnosis at time of Disposition: Syncope Qualifiers: Syncope type: vasovagal syncope Qualified Code(s): R55 - Syncope and collapse - Discharge Dispostion Condition at time of disposition: Stable Decision to Admit order: Yes - Referrals - Patient Instructions - Post Discharge Activity
[2018-10-02] MEDS ORDERED: METOCLOPRAMIDE HCL INJECTION 10 MG/2 ML VIAL IVPB ONE (20:28)
--- NOTE | 2018-10-02 20:34 | PDOC ---
Attending Attestation - HPI HPI: 10/02/18 21:11 Patient is a 48 year old female with a significant past medical history of HTN, NIDDM, polysubstance abuse (heroine, MJ), DVT (s/p IVC filter), peripheral neuropathy who presents to the ED with complaints of syncopal episode that occurred earlier this afternoon at 2:30pm. Patient reports waking this morning and was given her blood pressure medication, but states she soon felt slightly dizzy and was not given any more after her bp was found to be lowered. She reports experiencing a sick nausea feeling shortly after lunch stating her blood pressure was found to be 200/140 and was advised to lay down and rest. She reports standing to go use the restroom when she felt sudden urge of dizziness, as well as associated chest tightness and experienced a syncopal episode. As per staff, patient was being sent to the ED for further evaluation. Patient reports experiencing similar sensation earlier this week sunday afternoon. Denies chest pain. Denies vomiting. Denies contact with sick individuals, out of state travelling. Denies dysuria, hematuria. Denies any other symptoms. Allergies: Ondansetron Social history: Heroin use. Current smoker. No alcohol use. Surgical history:lap bernadine, prolapsed bladder, R ankle repair, IVC placement PMD: Dr. Tapia - Physicial Exam PE: 10/02/18 21:11 Constitutional: Awake, alert, oriented. No acute distress. Head: Normocephalic. Atraumatic Eyes: PERRL. EOMI. Conjunctivae are not pale. ENT: +Poor dentition. Mucous membranes are moist and intact. Posterior pharynx without exudate or erythema. Uvula midline. Neck: Supple. Full ROM. No lymphadenopathy. Cardiovascular: Regular rate. Regular rhythm. S1, S2 regular. Distal pulses are 2+ and symmetric. Pulmonary/Chest: No evidence of respiratory distress. Clear to auscultation bilaterally No wheezing, rales or rhonchi. Abdominal: +Obese belly Soft and nondistended. There is no tenderness. No rebound, guarding or rigidity. No organomegaly. No palpable masses. Good bowel sounds. Back: No CVA tenderness. Musculoskeletal: No edema. No cyanosis. No clubbing. Full range of motion in all extremities. No Calf tenderness. Radial/pedal pulses are intact and 2+ bilaterally Skin: Skin is warm and dry. No petechiae. No purpura. Neurological: Alert and oriented to person, place, and time. Cranial nerves II -XII are grossly intact. Normal speech. Strength is grossly symmetric. No sensory deficits. Psychiatric: Good eye contact. Normal interaction, affect and behavior. <MarieJames - Last Filed: 10/02/18 21:11> - Resident Resident Name: Eric Eid - ED Attending Attestation I have performed the following: I have examined & evaluated the patient, The case was reviewed & discussed with the resident, I agree w/resident's findings & plan, Exceptions are as noted - Medical Decision Making 10/02/18 20:33 I, Dr. Evelina Snyder, DO, attest that this document has been prepared under my direction and personally reviewed by me in its entirety. I further attest, that it accurately reflects all work, treatment, procedures and medical decision -making performed by me. 10/02/18 22:38 a/p: 48yo female with a syncopal episode today after going to the bathroom at [facility] -pt had a syncopal episode of sunday -recently with c diff colitis, still with 5 episodes of loose stool a day and n/ v today -no abd pain -no cp/sob -pt states it was after lunch she passed out and hit her head -will obtain head ct, labs, ekg, orthostatics -pt c/o anxiety- will give hydroxyzine -pt has been ambulatory in the ED with a steady gait -will monitor and reassess 10/02/18 23:11 labs reviewed and trop negative suspect volume loss, however given hx of dvt and clot in the past and 2 syncopal episodes will send for cta chest 10/02/18 23:[address] Carrillo who accepts pt to service, will obtain cta prior to admission 10/03/18 00:01 orthostatic vs are negative 10/03/18 01:[address] <Evelina Snyder - Last Filed: 10/03/18 01:40> Heart Score/ECG Review - ECG Intrepretation Comment:: 10/02/18 23:17 sinus at 98, nl axis, nl interval, no acute st/t wave findings <Evelina Snyder - Last Filed: 10/03/18 01:40>
[2018-10-02] MEDS ORDERED: amLODIPine BESYLATE 10 MG TABLET (FP) PO ONE (20:38)
[2018-10-02] MEDS ORDERED: METOCLOPRAMIDE HCL INJECTION 10 MG/2 ML VIAL ONE (20:52)
[2018-10-02] MEDS ORDERED: amLODIPine BESYLATE 5 MG TABLET (FP) ONE (20:52)
[2018-10-02 20:59] LABS: HEMATOCRIT 37.8 % (32.4-45.2); HEMOGLOBIN 13.1 GM/dL (10.7-15.3); MCH 30.5 pg (25.7-33.7); MCHC 34.6 g/dl (32.0-36.0); MEAN CELL VOLUME 88.2 fl (80-96); MEAN PLT VOLUME 8.9 fl (7.5-11.1); PLATELET COUNT 389 K/MM3 (134-434); RBC 4.28 M/mm3 (3.60-5.2); RDW 13.6 % (11.6-15.6)
[2018-10-02] MEDS ORDERED: hydrOXYzine PAMOATE 25 MG CAPSULE (FP) PO ONE (21:10)
[2018-10-02 21:23] LABS: INR 1.16 (0.83-1.09); PROTHROMBIN TIME (PATIENT) 13.7 SEC (9.7-13.0)
[2018-10-02 21:26] LABS: ACTIVATED PTT 27.6 SECONDS (25.2-36.5)
[2018-10-02 21:38] LABS: ALBUMIN 4.2 g/dl (3.4-5.0); ALK PHOS 101 U/L (45-117); ANION GAP 10 MMOL/L (8-16); BILIRUBIN,TOTAL 0.6 mg/dL (0.2-1); BLOOD UREA NITROGEN 19 mg/dL (7-18); CALCIUM 9.8 mg/dL (8.5-10.1); CHLORIDE 105 mmol/L (98-107); CO2 24 mmol/L (21-32); GLUCOSE,RANDOM 136 mg/dL (74-106); POTASSIUM 3.5 mmol/L (3.5-5.1); SGOT/AST 17 U/L (15-37); SGPT/ALT 49 U/L (13-61); SODIUM 139 mmol/L (136-145); TOT PROT 7.3 g/dl (6.4-8.2)
--- NOTE | 2018-10-02 23:08 | PN ---
Teaching Attending Note Name of Resident: Yony Moralez ATTENDING PHYSICIAN STATEMENT I saw and evaluated the patient. I reviewed the resident's note and discussed the case with the resident. I agree with the resident's findings and plan as documented. SUBJECTIVE: Seen and examined; please refer to resident note for further historical information. Briefly, this is a 48 y/o female well known to this service with multiple prior admissions who presents today for syncopal sx and elevated BP to the 190s systolic. Per [facility] documentation: "Patient reports she was walking out of the bathroom felt dizzy and fell. Patient does not recall how she fell. Patient denies changes LOC." She has a history of HTN, NIDDM, CHF, DVT (s/p IVC filter, on Eliquis), peripheral neuropathy and polysubstance abuse. When we spoke with her she denies LOC but did endorse stereotyped vertigo sx with the room spinning, etc. She has not had a prior dx vertigo and has no records of being on meclizine. Unclear if she got PM doses of her BP meds today and she is noted to be in HTN urgency to the 190s but is asymptomatic in terms of cardio/pulmonary issues. She is noted to complain of diarrhea that is consistent with what is documented as her baseline; has been seen extensively during past admissions for this issue. 10 sys ROS done and negative aside from HPI PMH, PSH, Family hx, Social hx reviewed Medication list reviewed; reconciliation pending Home Medications Medication Instructions Recorded Pregabalin [Lyrica] 100 mg PO TID 10/02/16 traZODone HCL [Desyrel -] 100 mg PO HS 02/13/18 Amlodipine Besylate 10 mg PO DAILY #30 tablet 08/18/18 Apixaban [Eliquis] 2.5 mg PO BID #60 tablet 08/18/18 Bacitracin - [Bacitracin Topical 1 applic TP DAILY #1 tube 08/18/18 Ointment -] Labetalol HCl [Normodyne -] 400 mg PO BID #120 tablet 08/18/18 Sitagliptin Phosphate [Januvia] 100 mg PO DAILY #30 tablet 08/18/18 Escitalopram Oxalate [Lexapro -] 10 mg PO DAILY #30 tablet 09/23/18 Quetiapine Fumarate [Seroquel -] 50 mg PO BID #30 tablet 09/23/18 OBJECTIVE: VS, labs, imaging reviewed NAD, AAO, resting comfortably in bed NC AT EOMI PERRLA RRR s1/2 no mgr Lungs CTAB, w/ sym exp NT ND +BS CN2-12 wnl, no fnd Normal mood, appropriate affect CXR reviewed CT head with no interval change from previous study 09/30 ASSESSMENT AND PLAN: Patient is a 48 y/o female presenting with syncope 1) Syncope -Placing on observation with telemetry; negative orthostatic VS, negative [place]. Given chronic diarrhea will provide with empiric hydration. -CT head negative; recent echo reviewed with no wma's, reduced EF, or severe valve issues. Checking carotid dopplers. -PRN meclizine in case underlying BPPV. Less likely vestibular neuritis, etc. No tinnitus or hearing loss. Symptoms resolved now. Given relation to her time in the bathroom may be micturational syncope. No high degree AV blocks noted on EKG, no significant arrhythmias, etc/ 2) Hypertensive Urgency -On home norvasc 10 QD and labetalol 400 BID; giving her PM dose of Labetalol 400 and will give PRN labetalol PRN. Continue with home medications. 3) Chronic Diarrhea -Negative workup here in the past; please see prior admissions for extensive discussion. No CDiff. Colonoscopy as OP. 4) Chronic DVT, hx PE s/p IVC filter, on eliquis -Continue home meds; no acute changes. 5) Hx Polysubstance Abuse/Heroin abuse -[facility] 6) DM -SSI 7) Psychiatric hx -Continue lexapro, seroquel. Recommend close OP followup. 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
--- NOTE | 2018-10-02 23:53 | HP ---
<Yony Moralez - Last Filed: 10/03/18 01:47> CHIEF COMPLAINT: psyncope PCP:Dr. Tapia HISTORY OF PRESENT ILLNESS: Patient is a 48 year old female with past medical history of HTN, NIDDM, DVT (s/ p IVC filter, on Eliquis), peripheral neuropathy and polysubstance abuse, presented from [facility] after psyncopal episode was found to have elevated BP 180 Systolic and admitted to tele for observation. pt reports fell down on her way out of the bath room , she felt dizzy , lightheaded, room spinning around her , andfell down , she denies LOC or hitting her head (mentioned to ED staff that she lost her consciousness) pt denies any headache , blurry vision , chest pain , palpitation , sob , denies any abdominal pain or urinary symptoms , denies any swelling in legs, denies any seizure activity or urinary or bowel incontinence. she reports she has been vomiting up to 10 times since sunday NBNB, and continious diarrhea 5-10 times a day of watery diarrhea. ER course was notable for: (1)CT head Ngative (2)CTA chest pending (3)Cbc, cmp Recent Travel:denies PAST MEDICAL HISTORY: as per HPI PAST SURGICAL HISTORY: lap cholecystectomy prolapsed bladder R ankle repair IVC placement Social History: Smokinpack per week [id number], still smoking Alcohol:denies Drugs: smokes marijuana daily, heroin Family History: Mother - ovarian CA Father - DM, EtOH abuse Allergies ondansetron [From Zofran] Adverse Reaction (Severe, Verified 10/02/18 19:59) prolonged qt interval HOME MEDICATIONS: Home Medications Medication Instructions Recorded Pregabalin [Lyrica] 100 mg PO TID 10/02/16 traZODone HCL [Desyrel -] 100 mg PO HS 02/13/18 Amlodipine Besylate 10 mg PO DAILY #30 tablet 08/18/18 Apixaban [Eliquis] 2.5 mg PO BID #60 tablet 08/18/18 Bacitracin - [Bacitracin Topical 1 applic TP DAILY #1 tube 08/18/18 Ointment -] Labetalol HCl [Normodyne -] 400 mg PO BID #120 tablet 08/18/18 Sitagliptin Phosphate [Januvia] 100 mg PO DAILY #30 tablet 08/18/18 Escitalopram Oxalate [Lexapro -] 10 mg PO DAILY #30 tablet 09/23/18 Quetiapine Fumarate [Seroquel -] 50 mg PO BID #30 tablet 09/23/18 REVIEW OF SYSTEMS CONSTITUTIONAL: Absent: fever, chills, diaphoresis, generalized weakness, malaise, loss of appetite, weight change HEENT: Absent: rhinorrhea, nasal congestion, throat pain, throat swelling, difficulty swallowing, mouth swelling, ear pain, eye pain, visual changes CARDIOVASCULAR: Absent: chest pain, syncope, palpitations, irregular heart rate, lightheadedness , peripheral edema RESPIRATORY: Absent: cough, shortness of breath, dyspnea with exertion, orthopnea, wheezing, stridor, hemoptysis GASTROINTESTINAL: Absent: abdominal pain, abdominal distension, nausea, vomiting, diarrhea, constipation, melena, hematochezia GENITOURINARY: Absent: dysuria, frequency, urgency, hesitancy, hematuria, flank pain, genital pain MUSCULOSKELETAL: Absent: myalgia, arthralgia, joint swelling, back pain, neck pain SKIN: Absent: rash, itching, pallor HEMATOLOGIC/IMMUNOLOGIC: Absent: easy bleeding, easy bruising, lymphadenopathy, frequent infections ENDOCRINE: Absent: unexplained weight gain, unexplained weight loss, heat intolerance, cold intolerance NEUROLOGIC: Absent: headache, focal weakness or paresthesias, dizziness, unsteady gait, seizure, mental status changes, bladder or bowel incontinence PSYCHIATRIC: Absent: anxiety, depression, suicidal or homicidal ideation, hallucinations. PHYSICAL EXAMINATION Vital Signs - 24 hr 10/02/18 19:00 Temperature 98.9 F Pulse Rate 87 Respiratory 18 Rate Blood Pressure 185/92 H O2 Sat by Pulse 99 Oximetry (%) GENERAL: AAOx3 in NAD HEAD: NC/AT EYES: EOMI, Conjunctiva clear, sclera anicteric ENT: moist mucous membrane NECK: Supple, no JVD LUNGS: CTA B/L, no crackles no wheezing no accessory muscle use. HEART: RRR, NSR, normal s1, s2, murmur no M/R/G ABDOMEN:obese , Soft, ND, NT, +BS 4 Q, no CVA Tenderness LOWER EXTREMITIES: no edema, +2DP pulse, NEUROLOGICAL: No focal deficit. Normal speech. gait normal PSYCHIATRIC: Cooperative. SKIN: Warm, dry, Laboratory Results - last 24 hr 10/02/18 10/02/18 10/02/18 20:40 20:40 20:40 WBC RBC Hgb Hct MCV MCH MCHC RDW Plt Count MPV PT with INR 13.70 H INR 1.16 H PTT (Actin FS) 27.6 Sodium 139 Potassium 3.5 Chloride 105 Carbon Dioxide 24 Anion Gap 10 BUN 19 H Creatinine 1.0 Creat Clearance w eGFR 59.69 Random Glucose 136 H Calcium 9.8 Total Bilirubin 0.6 AST 17 ALT 49 Alkaline Phosphatase 101 Creatine Kinase 31 Troponin I < 0.02 Total Protein 7.3 Albumin 4.2 Serum , Qual Negative 10/02/18 20:48 WBC 10.0 RBC 4.28 Hgb 13.1 Hct 37.8 MCV 88.2 MCH 30.5 MCHC 34.6 RDW 13.6 Plt Count 389 MPV 8.9 PT with INR INR PTT (Actin FS) Sodium Potassium Chloride Carbon Dioxide Anion Gap BUN Creatinine Creat Clearance w eGFR Random Glucose Calcium Total Bilirubin AST ALT Alkaline Phosphatase Creatine Kinase Troponin I Total Protein Albumin Serum , Qual CBC, BMP 10/02/18 20:48 10/02/18 20:40 ASSESSMENT/PLAN: Patient is a 48 year old female with past medical history of HTN, NIDDM, DVT (s/ p IVC filter, on Eliquis), peripheral neuropathy and polysubstance abuse, presented from [facility] after psyncopal episode was found to have elevated BP 180 Systolic and admitted to tele for observation. # Syncope * dehydration vs low oral intake R.O Arrhythmia or PE vs * EKG NSR with No ST, t wave changes * Head CT negative * denies LOC or hitting her head * Echo recent with EF 55-60 % * Carotid doppler * Chest CTA in ED to R.O PE pending * IV fluids NS @ 75 CC /hr * Orthostatics negative * Meclizine PRN * monitor in tele obs # HTN urgency , non compliant * resume home meds Labetalol 400mg BID, Amlodipine 10mg daily * Monitor BP * night monitor #Diarrhea,2/2 C. Diff infection , complete treatment , vs malingering # vomiting * pt still complaining of diarrhea 5 time daily of watery diarrhea * last admission work up for diarrhea come back negative * increased fluid intake * [place] #H/O Polysubstance abuse * Neuro checks, seizure precautions * Aspiration precautions, fall risk #ANASTASIA mild * Monitor renal function * repeat lab after IV hydration * Encourage increased oral fluid intake #NIDDM * Hold Januvia 100mg * Insulin sliding scale implemented * BGM ACHS * Pregabalin 100mg TID for peripheral neuropathy #Hx of DVT * Continue Eliquis 2.5mg BID #Depression/Anxiety * Continue Lexapro 5mg daily * Seroquel 50mg Po HS #FEN * NS @ 75 CC/hr one bag , encourage oral intake * Routine bmp monitoring * Diabetic/sodium controlled diet #Prophylaxis * On Eliquis 2.5mg BID #Disposition * full code * obs tele Visit type - Emergency Visit Emergency Visit: Yes ED Registration Date: 10/02/18 Care time: The patient presented to the Emergency Department on the above date and was hospitalized for further evaluation of their emergent condition. - New Patient This patient is new to me today: Yes Date on this admission: 10/03/18 - Critical Care Critical Care patient: No <Art Carrillo - Last Filed: 10/30/18 19:50> Seen and examined; agree with above aside from as supplemented by myself in my own assessment, plan, and physical examination.
[2018-10-03] MEDS ORDERED: traZODone HCL 50 MG TABLET (FP) PO ONE (00:29)
[2018-10-03] MEDS ORDERED: APIXABAN 2.5 MG TABLET PO ONE (00:30)
[2018-10-03] MEDS ORDERED: QUEtiapine FUMARATE 50 MG TABLET PO ONE (00:30)
[2018-10-03] MEDS ORDERED: QUEtiapine FUMARATE 25 MG TABLET (FP) ONE ×2 (00:36→10:28)
[2018-10-03] MEDS ORDERED: APIXABAN 5 MG TABLET PO ONE ×2 (00:36→10:27)
[2018-10-03] MEDS ORDERED: MECLIZINE HCL 25 MG TABLET (FP) PO PRN (00:39)
[2018-10-03] MEDS: SODIUM CHLORIDE 1,000 ML IV SCH (01:00)
[2018-10-03] MEDS: INSULIN SLIDING SCALE (NOVOLOG) 1 VIAL SQ SCH ×4 (06:31→23:45)
[2018-10-03] MEDS ORDERED: PREGABALIN 100 MG CAPSULE ONE ×2 (06:38→15:09)
[2018-10-03] MEDS: PREGABALIN 100 MG CAPSULE PO SCH ×3 (06:41→23:44)
[2018-10-03 07:21] LABS: BASO % 0.9 % (0-2.0); EOS % 2.8 % (0-4.5); HEMATOCRIT 32.5 % (32.4-45.2); HEMOGLOBIN 11.3 GM/dL (10.7-15.3); LYMPH % 31.2 % (8-40); MCH 30.6 pg (25.7-33.7); MCHC 34.6 g/dl (32.0-36.0); MEAN CELL VOLUME 88.3 fl (80-96); MEAN PLT VOLUME 8.3 fl (7.5-11.1); MONO % 10.2 % (3.8-10.2); NEUT % 54.9 % (42.8-82.8); PLATELET COUNT 317 K/MM3 (134-434); RBC 3.68 M/mm3 (3.60-5.2); RDW 13.8 % (11.6-15.6); WHITE BLOOD COUNT 8.2 K/mm3 (4.0-10.0)
[2018-10-03 07:43] LABS: URINE APPEARANCE CLEAR; URINE COLOR YELLOW
[2018-10-03 07:44] LABS: URINE BILIRUBIN NEGATIVE (<2.0 mg/dL); URINE GLUCOSE (UA) NEGATIVE (NEGATIVE); URINE KETONE NEGATIVE (NEGATIVE)
[2018-10-03 07:45] LABS: URINE LEUK ESTERASE NEGATIVE (NEGATIVE); URINE NITRITE NEGATIVE (NEGATIVE); URINE PROTEIN NEGATIVE (NEGATIVE)
[2018-10-03 07:58] LABS: ALBUMIN 3.6 g/dl (3.4-5.0); ALK PHOS 86 U/L (45-117); ANION GAP 8 MMOL/L (8-16); BILIRUBIN,TOTAL 0.6 mg/dL (0.2-1); BLOOD UREA NITROGEN 17 mg/dL (7-18); CALCIUM 8.9 mg/dL (8.5-10.1); CHLORIDE 108 mmol/L (98-107); CO2 26 mmol/L (21-32); CREATININE 0.9 mg/dL (0.55-1.3); GLUCOSE,RANDOM 104 mg/dL (74-106); MAGNESIUM 1.6 mg/dL (1.8-2.4); N-TERMINAL BNP 328.7 pg/ml (5-125); PHOSPHOROUS 4.6 mg/dL (2.5-4.9); POTASSIUM 3.1 mmol/L (3.5-5.1); SGOT/AST 14 U/L (15-37); SGPT/ALT 43 U/L (13-61); SODIUM 142 mmol/L (136-145); TOT PROT 6.3 g/dl (6.4-8.2)
[2018-10-03 08:05] LABS: INR 1.28 (0.83-1.09); PROTHROMBIN TIME (PATIENT) 15.1 SEC (9.7-13.0)
[2018-10-03 08:06] LABS: ACTIVATED PTT 27.5 SECONDS (25.2-36.5)
[2018-10-03] MEDS ORDERED: MAGNESIUM OXIDE 400 MG TABLET (FP) PO ONE (08:24)
[2018-10-03] MEDS ORDERED: POTASSIUM CHLORIDE TABS 20 MEQ TABLET.ER (FP) PO ONE ×2 (08:25→08:57)
[2018-10-03] MEDS ORDERED: MAGNESIUM OXIDE 400 MG TABLET (FP) ONE (08:57)
[2018-10-03] MEDS ORDERED: LABETALOL HCL 100 MG TABLET (FP) ONE ×2 (10:27→11:20)
[2018-10-03] MEDS ORDERED: amLODIPine BESYLATE 5 MG TABLET (FP) ONE (10:28)
[2018-10-03] MEDS ORDERED: ESCITALOPRAM OXALATE 10 MG TABLET (FP) ONE ×2 (10:28→11:20)
[2018-10-03] MEDS ORDERED: BACITRACIN 0.9 GM PACKET ONE (10:28)
[2018-10-03] MEDS: LABETALOL HCL 200 MG TABLET (FP) PO SCH ×2 (10:30→23:43)
[2018-10-03] MEDS: APIXABAN 2.5 MG TABLET PO SCH ×2 (10:30→23:44)
[2018-10-03] MEDS: QUEtiapine FUMARATE 50 MG TABLET PO SCH ×2 (10:30→23:45)
[2018-10-03] MEDS: amLODIPine BESYLATE 10 MG TABLET (FP) PO SCH (10:30)
[2018-10-03] MEDS: BACITRACIN 15 GM TUBE TOPICAL OINTMENT TP SCH (10:30)
[2018-10-03] MEDS: ESCITALOPRAM OXALATE 10 MG TABLET (FP) PO SCH (10:30)
--- NOTE | 2018-10-03 11:02 | EKG ---
Test Reason : Blood Pressure : / mmHG Vent. Rate : 098 BPM Atrial Rate : 098 BPM P-R Int : 148 ms QRS Dur : 092 ms QT Int : 372 ms P-R-T Axes : 005 031 028 degrees QTc Int : 474 ms NORMAL SINUS RHYTHM NORMAL ECG WHEN COMPARED WITH ECG OF 30-SEP-2018 21:20, NO SIGNIFICANT CHANGE WAS FOUND Confirmed by RICHARD GARG MD ([id number]) on 10/03/2018 11:01:51 AM Referred By: Confirmed By:RICHARD GARG MD
--- NOTE | 2018-10-03 11:23 | PN ---
Physical Exam: SUBJECTIVE: Patient seen and examined at bedside; no acute events overnight patient claims she is still having diarrhea- repeat orthostatic vital signs negative; denies any CP/SOB/N/V fevers or chills OBJECTIVE: Vital Signs Period Temp Pulse Resp BP Sys/Puente Pulse Ox Last 24 Hr 98.9 F 87-113 18 110-185/78-92 99-99 GENERAL: The patient is awake, alert, and fully oriented, in no acute distress. EYES:PEERLA: EOMI; no scleral icteus NECK: no JVD; no lymphadenoapthy LUNGS: CTA B/L; no rales, rhonch or wheezing. HEART: Regular rate and rhythm, S1, S2 without murmur, rub or gallop. ABDOMEN: Soft, non tender; non distended +BS in all 4 quadrants EXTREMITIES: 2+ pulses, warm, well-perfused, no edema. . PSYCH: Normal mood, normal affect. SKIN: Warm, dry, normal turgor, no rashes or lesions noted Laboratory Results - last 24 hr 10/02/18 10/02/18 10/02/18 06:45 06:45 20:40 WBC RBC Hgb Hct MCV MCH MCHC RDW Plt Count MPV Absolute Neuts (auto) Neutrophils % Lymphocytes % Monocytes % Eosinophils % Basophils % Nucleated RBC % PT with INR 13.70 H INR 1.16 H PTT (Actin FS) 27.6 Sodium Potassium Chloride Carbon Dioxide Anion Gap BUN Creatinine Creat Clearance w eGFR POC Glucometer Random Glucose Calcium Phosphorus Magnesium Total Bilirubin AST ALT Alkaline Phosphatase Creatine Kinase Troponin I B-Natriuretic Peptide Total Protein Albumin Serum , Qual Urine Color Yellow Urine Appearance Clear Urine pH 6.0 Ur Specific [place] 1.079 H Urine Protein Negative Urine Glucose (UA) Negative Urine Ketones Negative Urine Blood Negative Urine Nitrite Negative Urine Bilirubin Negative Urine Urobilinogen 1.0 Ur Leukocyte Esterase Negative Urine RBC (Auto) No Result Required. Urine HCG, Qual Negative 10/02/18 10/02/18 10/02/18 20:40 20:40 20:48 WBC 10.0 RBC 4.28 Hgb 13.1 Hct 37.8 MCV 88.2 MCH 30.5 MCHC 34.6 RDW 13.6 Plt Count 389 MPV 8.9 Absolute Neuts (auto) Neutrophils % Lymphocytes % Monocytes % Eosinophils % Basophils % Nucleated RBC % PT with INR INR PTT (Actin FS) Sodium 139 Potassium 3.5 Chloride 105 Carbon Dioxide 24 Anion Gap 10 BUN 19 H Creatinine 1.0 Creat Clearance w eGFR 59.69 POC Glucometer Random Glucose 136 H Calcium 9.8 Phosphorus Magnesium Total Bilirubin 0.6 AST 17 ALT 49 Alkaline Phosphatase 101 Creatine Kinase 31 Troponin I < 0.02 B-Natriuretic Peptide Total Protein 7.3 Albumin 4.2 Serum , Qual Negative Urine Color Urine Appearance Urine pH Ur Specific [place] Urine Protein Urine Glucose (UA) Urine Ketones Urine Blood Urine Nitrite Urine Bilirubin Urine Urobilinogen Ur Leukocyte Esterase Urine RBC (Auto) Urine HCG, Qual 10/03/18 10/03/18 10/03/18 00:20 06:28 06:40 WBC 8.2 RBC 3.68 Hgb 11.3 Hct 32.5 MCV 88.3 MCH 30.6 MCHC 34.6 RDW 13.8 Plt Count 317 MPV 8.3 Absolute Neuts (auto) 4.5 Neutrophils % 54.9 D Lymphocytes % 31.2 D Monocytes % 10.2 Eosinophils % 2.8 D Basophils % 0.9 Nucleated RBC % 0 PT with INR INR PTT (Actin FS) Sodium Potassium Chloride Carbon Dioxide Anion Gap BUN Creatinine Creat Clearance w eGFR POC Glucometer 108 Random Glucose Calcium Phosphorus Magnesium Total Bilirubin AST ALT Alkaline Phosphatase Creatine Kinase Troponin I < 0.02 B-Natriuretic Peptide Total Protein Albumin Serum , Qual Urine Color Urine Appearance Urine pH Ur Specific [place] Urine Protein Urine Glucose (UA) Urine Ketones Urine Blood Urine Nitrite Urine Bilirubin Urine Urobilinogen Ur Leukocyte Esterase Urine RBC (Auto) Urine HCG, Qual 10/03/18 10/03/18 06:40 06:40 WBC RBC Hgb Hct MCV MCH MCHC RDW Plt Count MPV Absolute Neuts (auto) Neutrophils % Lymphocytes % Monocytes % Eosinophils % Basophils % Nucleated RBC % PT with INR 15.10 H INR 1.28 H PTT (Actin FS) 27.5 Sodium 142 Potassium 3.1 L Chloride 108 H Carbon Dioxide 26 Anion Gap 8 BUN 17 Creatinine 0.9 Creat Clearance w eGFR 67.41 POC Glucometer Random Glucose 104 Calcium 8.9 Phosphorus 4.6 Magnesium 1.6 L Total Bilirubin 0.6 AST 14 L ALT 43 Alkaline Phosphatase 86 Creatine Kinase Troponin I B-Natriuretic Peptide 328.7 H Total Protein 6.3 L Albumin 3.6 Serum , Qual Urine Color Urine Appearance Urine pH Ur Specific [place] Urine Protein Urine Glucose (UA) Urine Ketones Urine Blood Urine Nitrite Urine Bilirubin Urine Urobilinogen Ur Leukocyte Esterase Urine RBC (Auto) Urine HCG, Qual Active Medications Generic Name Dose Route Start Last Admin Trade Name Shavon PRN Reason Stop Dose Admin Amlodipine Besylate 10 mg 10/03/18 10:00 Norvasc - PO DAILY NI Apixaban 2.5 mg 10/03/18 10:00 10/03/18 10:30 Eliquis - PO 2.5 mg BID NI Administration Bacitracin 1 applic 10/03/18 10:00 10/03/18 10:30 Bacitracin - TP 1 applic DAILY NI Administration Escitalopram Oxalate 10 mg 10/03/18 10:00 10/03/18 10:30 Lexapro - PO 10 mg DAILY NI Administration Sodium Chloride 1,000 mls @ 75 mls/hr 10/03/18 00:45 10/03/18 01:00 Normal Saline - IV 75 mls/hr ASDIR NI Administration Insulin Aspart 1 vial 10/03/18 07:00 10/03/18 06:31 Novolog Vial Sliding Scale - SQ Not Given ACHS NI Protocol Labetalol HCl 400 mg 10/03/18 10:00 Normodyne - PO BID IN Meclizine HCl 25 mg 10/03/18 00:39 Antivert - PO TID PRN VERTIGO Pregabalin 100 mg 10/03/18 06:00 10/03/18 06:41 Lyrica - PO 100 mg TID NI Administration Quetiapine Fumarate 50 mg 10/03/18 10:00 Seroquel - PO BID NI Trazodone HCl 100 mg 10/03/18 22:00 Desyrel - PO HS NI ASSESSMENT/PLAN: Patient is a 48 year old female with past medical history of HTN, NIDDM, DVT (s/ p IVC filter, on Eliquis), peripheral neuropathy and polysubstance abuse, presented from [facility] after psyncopal episode was found to have elevated BP 180 Systolic and admitted to tele for observation. 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 #Diarrhea, -GI consult placed for possible inpatient scope -C diff toxin pending #H/O Polysubstance abuse * Neuro checks, seizure precautions * Aspiration precautions, fall risk #ANASTASIA mild * resolved * monitor renal function #NIDDM * Hold Januvia 100mg * Insulin sliding scale implemented * BGM ACHS * Pregabalin 100mg TID for peripheral neuropathy #Hx of DVT * Continue Eliquis 2.5mg BID #Depression/Anxiety * Continue Lexapro 5mg daily * Seroquel 50mg Po HS #FEN * NS @ 75 CC/hr one bag , encourage oral intake * Routine bmp monitoring * Diabetic/sodium controlled diet #Prophylaxis * On Eliquis 2.5mg BID Problem List - Problems (1) Syncope Code(s): R55 - SYNCOPE AND COLLAPSE Qualifiers: Syncope type: vasovagal syncope Qualified Code(s): R55 - Syncope and collapse Visit type - Emergency Visit Emergency Visit: Yes ED Registration Date: 10/02/18 Care time: The patient presented to the Emergency Department on the above date and was hospitalized for further evaluation of their emergent condition. - New Patient This patient is new to me today: No - Critical Care Critical Care patient: No - Discharge Referral Referred to [facility] No
--- NOTE | 2018-10-03 11:46 | PN ---
Teaching Attending Note Name of Resident: Bea Avery ATTENDING PHYSICIAN STATEMENT I saw and evaluated the patient. I reviewed the resident's note and discussed the case with the resident. I agree with the resident's findings and plan as documented. SUBJECTIVE: Reports feeling light headed coming out of the bathroom at [facility] then fainted. reports her BP going up and down. reports 10 episodes of diarrhea yesterday. non bloody loose stool. with abd cramping OBJECTIVE: NAD, slightly dry MM CV: RRR, no MRG Lungs: CTAB Abd: soft, obese, NT, ND , NL BS Ext: no edema., no erythema on legs or arms Assessment/Plan: 48 y/o lady with h/o HTN, DM , depression /anxiety, PE/DVT, s/p IVCF, substance abuse ,chronic lower ext ulcers, ANASTASIA due to tubular necrosis, c diff colitis, and frequent hospitalizations who presented form [facility] with a syncopal episode 1- Syncope: in setting of diarrhea, could be due to orthostatic hypotension. can 't r/o arrhythmias. positive orthostatic VS were reported but not documented. repeat this am with no significant drop. Head CT reviewed. CTA reviewed. - cont IVF - Tele - EKG reviewed. - dc meclizine 2- HTN urgency: BP was elevated at presentation to ER. now resolved - cont labetalol and Norvasc 3- Diarrhea: patient was instructed to show her stool to the staff. - if recurrent diarrhea , will get stool studies . - if recurrent, and c diff is neg, will need GI eval for possible colonoscopy 4-H/o DVT with S/P IVCF: cont eliquis . f/u withheme as ou tpt 5- DM: SSI 6- Depression and anxiety: cont lexapro and trazodone and seroquel 7- L big toe ulcer. 8-Thyroid nodule and L adrenal nodule, need f/u as out pt
[2018-10-03 16:14] VITALS: BMI 40.4
[2018-10-03] MEDS ORDERED: LORazepam 2 MG/ML SDV VIAL IVPUSH ONE (17:00)
[2018-10-03] MEDS ORDERED: PROCHLORPERAZINE INJECTION 10 MG/2 ML VIAL IVPB ONE (17:03)
--- NOTE | 2018-10-03 18:22 | CON.GI ---
Consult Consult Specialty:: GI Referred by:: Hospitalist service Reason for Consultation:: Diarrhea - History of Present Illness Chief Complaint: I passed out at detox History of Present Illness: 48F who syncopized at rehab. She describes having significantly elevated blood pressure (200/130) while there, went to the bathroom, walked out then passed out. She states losing consciousness for a few minutes. Asked to evaluate for malabsorption vs. IBD. She states that she was treated for C. Diff during an admission 2 months ago. This was an admission for heroin overdoe. In review of the [facility] system she was noted to be C. Diff Antigen +, Toxin Negative , C. Diff Toxin PCR negative 09/19. She states being treated with PO vancomycin up until a month ago. she was also admitted two weeks ago for a heroin overdose. Looking back further, she was evaluated by Dr. Bledsoe in 2015 for constipation. She was referred to see Dr. Wesley 09/26/18, however the patient never followed up. She believes that she had an EGD and colonoscopy 15 years ago that were OK. She denies abdominal pain. she denies chronic diarrhea and states that she was having normal bowel movements up until yesterday. There is no family history of colorectal cancer, celiac disease, IBD. On as outpatient as part of diabetic regimen. - History Source History Provided By: Patient, Medical Record - Past Medical History MANAGER QA: Yes: Other (mild frontal RO's since she started nicotine patch ; occ dizziness) Cardio/Vascular: Yes: HTN, Hyperlipdemia, Other (morbid obesity) Pulmonary: Yes: Sleep Apnea (risk factors for CRESENCIO; ?never worked up for this) Gastrointestinal: Yes: GERD Renal/: Yes: Renal Calculi ...LMP: 03/02/15 ...: No Infectious Disease: Yes: C-Diff (C. Diff antigen + / toxin Negative 08/03 and treated) Psych: Yes: Addictions (Intranasal heroin abuse), Anxiety, Depression Musculoskeletal: Yes: Chronic low back pain Endocrine: Yes: Diabetes Mellitus (though not yet diagnosed, pt has multiple risk for DM, has had elevated glucose x 2 this admission, and strong family hx of DM. HGBA1c PENDING.) - Past Surgical History Past Surgical History: Yes: Cholecystectomy Additional Surgical History: Lithotripsy secondary to nephrolithiasis, repair of bladder prolapse, b/l ankle fracture repair - Alcohol/Substance Use Hx Alcohol Use: No (denies) History of Substance Use: reports: Heroin (intranasal. Denies IVDA) - Smoking History Smoking history: Former smoker (Quit 3 months ago) Have you smoked in the past 12 months: Yes Aproximately how many cigarettes per day: 5 - Social History Usual Living Arrangement: Alone (Single) ADL: Independent Occupation: Unemployed Place of : [facility] History of Recent Travel: No Home Medications - Allergies Allergies/Adverse Reactions: Allergies Allergy/AdvReac Type Severity Reaction Status Date / Time ondansetron [From Zofran] AdvReac Severe Verified 10/02/18 19:59 - Home Medications Home Medications: Ambulatory Orders Pregabalin [Lyrica] 100 mg PO TID 10/02/16 traZODone HCL [Desyrel -] 100 mg PO HS 02/13/18 Amlodipine Besylate 10 mg PO DAILY #30 tablet 08/18/18 Apixaban [Eliquis] 2.5 mg PO BID #60 tablet 08/18/18 Bacitracin - [Bacitracin Topical Ointment -] 1 applic TP DAILY #1 tube 08/18/18 Labetalol HCl [Normodyne -] 400 mg PO BID #120 tablet 08/18/18 Sitagliptin Phosphate [Januvia] 100 mg PO DAILY #30 tablet 08/18/18 Escitalopram Oxalate [Lexapro -] 10 mg PO DAILY #30 tablet 09/23/18 Quetiapine Fumarate [Seroquel -] 50 mg PO BID #30 tablet 09/23/18 Family Disease History - Family Disease History Family Disease History: Diabetes: Father (Alive: DM, etoh), Mother (Alive: Cervical Cancer), Brother, Heart Disease: Grandparent (massive CVA in his early 60s), Other: Father, Mother, Sister (2, healthy) Other Family History: No family history of colorectal cancer or other GI malignancy Review of Systems - Review of Systems Constitutional: denies: Chills, Unintentional Wgt. Loss Cardiovascular: denies: Chest Pain Respiratory: denies: Cough Gastrointestinal: reports: Diarrhea. denies: Abdominal Pain, Rectal Bleeding Physical Exam-GI Vital Signs: Vital Signs Temperature 98.5 F 10/03/18 16:01 Pulse Rate 88 10/03/18 16:01 Respiratory Rate 18 10/02/18 19:00 Blood Pressure 150/93 10/03/18 16:01 O2 Sat by Pulse Oximetry (%) 99 10/03/18 16:18 Constitutional: Yes: Calm Eyes: No: Sclera Icterus Cardiovascular: Yes: Regular Rate and Rhythm Respiratory: Yes: CTA Bilaterally Gastrointestinal Inspection: Yes: Scars (Healed trochar scars), Other (Large pannus) ...Auscultate: Yes: Normoactive Bowel Sounds ...Palpate: No: Tenderness ...Percussion: No: Tympanitic Edema: No (No LE edema. ecchymoses ) Neurological: Yes: Alert Labs: CBC, BMP 10/03/18 06:40 10/03/18 06:40 INR, PTT INR 1.28 (0.83-1.09) H 10/03/18 06:40 Problem List - Problems (1) Syncope Assessment/Plan: Being evaluated by primary team Code(s): R55 - SYNCOPE AND COLLAPSE Qualifiers: Syncope type: vasovagal syncope Qualified Code(s): R55 - Syncope and collapse (2) Diarrhea Assessment/Plan: Describes more of an acute constipation of late. Treated for C. Diff Antigen + . Check repeat Stool for c. diff, culture, O&P use alternate medication aside from Januvia as part of diabetic regimen Monitor BM's Cholestyramine 2g daily in afternoon Outpatient work-up Code(s): R19.7 - DIARRHEA, UNSPECIFIED
[2018-10-03] MEDS ORDERED: traZODone HCL 50 MG TABLET (FP) ONE (22:24)
[2018-10-03] MEDS: traZODone HCL 100 MG TABLET (FP) PO SCH (23:45)
[2018-10-04] MEDS: PREGABALIN 100 MG CAPSULE PO SCH ×3 (05:52→21:41)
[2018-10-04] MEDS: SODIUM CHLORIDE 1,000 ML IV SCH (05:53)
[2018-10-04 06:41] LABS: HEMATOCRIT 31.6 % (32.4-45.2); HEMOGLOBIN 10.9 GM/dL (10.7-15.3); MCH 30.9 pg (25.7-33.7); MCHC 34.5 g/dl (32.0-36.0); MEAN CELL VOLUME 89.5 fl (80-96); MEAN PLT VOLUME 8.6 fl (7.5-11.1); PLATELET COUNT 291 K/MM3 (134-434); RBC 3.53 M/mm3 (3.60-5.2); RDW 13.7 % (11.6-15.6); WHITE BLOOD COUNT 7.7 K/mm3 (4.0-10.0)
[2018-10-04 06:59] LABS: ANION GAP 7 MMOL/L (8-16); BLOOD UREA NITROGEN 19 mg/dL (7-18); CALCIUM 8.6 mg/dL (8.5-10.1); CHLORIDE 113 mmol/L (98-107); CO2 24 mmol/L (21-32); CREATININE 0.7 mg/dL (0.55-1.3); GLUCOSE,RANDOM 126 mg/dL (74-106); PHOSPHOROUS 4.2 mg/dL (2.5-4.9); POTASSIUM 3.6 mmol/L (3.5-5.1); SODIUM 144 mmol/L (136-145)
[2018-10-04] MEDS: INSULIN SLIDING SCALE (NOVOLOG) 1 VIAL SQ SCH ×4 (07:39→21:49)
[2018-10-04] MEDS: QUEtiapine FUMARATE 50 MG TABLET PO SCH ×2 (09:28→21:41)
[2018-10-04] MEDS: LABETALOL HCL 200 MG TABLET (FP) PO SCH ×2 (09:28→21:41)
[2018-10-04] MEDS: BACITRACIN 15 GM TUBE TOPICAL OINTMENT TP SCH (09:28)
[2018-10-04] MEDS: APIXABAN 2.5 MG TABLET PO SCH ×2 (09:29→21:41)
[2018-10-04] MEDS: amLODIPine BESYLATE 10 MG TABLET (FP) PO SCH (09:29)
[2018-10-04] MEDS: ESCITALOPRAM OXALATE 10 MG TABLET (FP) PO SCH (09:30)
--- NOTE | 2018-10-04 11:13 | PN ---
Physical Exam: SUBJECTIVE: Patient seen and examined at bedside- no acute eventts overnight' patient did not have any more dirrhea she is feeling very anxious; denies CP/SOB /N/V fevers or chills OBJECTIVE: Vital Signs Period Temp Pulse Resp BP Sys/Puente Pulse Ox Last 24 Hr 98.3 F-99.8 F 77-90 18-20 127-150/70-93 94-99 GENERAL: The patient is awake, alert, and fully oriented, in no acute distress. EYES:PEERLA EOMI no scleral icterus. NECK:no JVD; no lymphadenopathy LUNGS: CTA B/L; no rales, rhonchi or wheezing. HEART: Regular rate and rhythm, S1, S2 without murmur, rub or gallop. ABDOMEN: Soft, slight tenderness upon palpation; +BS . EXTREMITIES: 2+ pulses, warm, well-perfused, no edema. PSYCH: Normal mood, normal affect. SKIN: Warm, dry, normal turgor, no rashes or lesions noted Laboratory Results - last 24 hr 10/03/18 10/03/18 10/04/18 17:04 23:42 05:30 WBC 7.7 RBC 3.53 L Hgb 10.9 Hct 31.6 L MCV 89.5 MCH 30.9 MCHC 34.5 RDW 13.7 Plt Count 291 MPV 8.6 Sodium Potassium Chloride Carbon Dioxide Anion Gap BUN Creatinine Creat Clearance w eGFR POC Glucometer 164 120 Random Glucose Calcium Phosphorus Magnesium 10/04/18 10/04/18 05:30 05:51 WBC RBC Hgb Hct MCV MCH MCHC RDW Plt Count MPV Sodium 144 Potassium 3.6 Chloride 113 H Carbon Dioxide 24 Anion Gap 7 L BUN 19 H Creatinine 0.7 Creat Clearance w eGFR 90.09 POC Glucometer 138 Random Glucose 126 H Calcium 8.6 Phosphorus 4.2 Magnesium 2.0 Active Medications Generic Name Dose Route Start Last Admin Trade Name Freq PRN Reason Stop Dose Admin Amlodipine Besylate 10 mg 10/03/18 10:00 10/04/18 09:29 Norvasc - PO 10 mg DAILY NI Administration Apixaban 2.5 mg 10/03/18 10:00 10/04/18 09:29 Eliquis - PO 2.5 mg BID NI Administration Bacitracin 1 applic 10/03/18 10:00 10/04/18 09:28 Bacitracin - TP 1 applic DAILY NI Administration Cholestyramine Resin 4 gm 10/04/18 12:00 Questran Packet - PO DAILY NI Escitalopram Oxalate 10 mg 10/03/18 10:00 10/04/18 09:30 Lexapro - PO 10 mg DAILY NI Administration Sodium Chloride 1,000 mls @ 75 mls/hr 10/03/18 00:45 10/04/18 05:53 Normal Saline - IV 75 mls/hr ASDIR NI Administration Insulin Aspart 1 vial 10/03/18 07:00 10/04/18 07:39 Novolog Vial Sliding Scale - SQ Not Given ACHS NI Protocol Labetalol HCl 400 mg 10/03/18 10:00 10/04/18 09:28 Normodyne - PO 400 mg BID NI Administration Pregabalin 100 mg 10/03/18 06:00 10/04/18 05:52 Lyrica - PO 100 mg TID NI Administration Quetiapine Fumarate 50 mg 10/03/18 10:00 10/04/18 09:28 Seroquel - PO 50 mg BID NI Administration Trazodone HCl 100 mg 10/03/18 22:00 10/03/18 23:45 Desyrel - PO 100 mg HS NI Administration ASSESSMENT/PLAN: Patient is a 48 year old female with past medical history of HTN, NIDDM, DVT (s/ p IVC filter, on Eliquis), peripheral neuropathy and polysubstance abuse, [place] [facility] [place] was found to have elevated BP 180 Systolic # Syncope * dehydration vs low oral intake * IV fluids NS @ 75 CC /hr * Orthostatics negative * monitor in tele obs * # HTN * resume home meds Labetalol 400mg BID, Amlodipine 10mg daily * Monitor BP * hospital monitor #Diarrhea, -GI consult : dr barraza saw pt yesterday states can get scope as op; started cholestyramine 2gram to be taken in afternoon -C diff toxin pending #H/O Polysubstance abuse * Neuro checks, seizure precautions * Aspiration precautions, fall risk #ANASTASIA mild * resolved * monitor renal function #NIDDM * Hold Januvia 100mg * Insulin sliding scale implemented * BGM ACHS * Pregabalin 100mg TID for peripheral neuropathy #Hx of DVT * Continue Eliquis 2.5mg BID #Depression/Anxiety * Continue Lexapro 5mg daily * Seroquel 50mg Po HS #FEN * NS @ 75 CC/hr one bag , encourage oral intake * Routine bmp monitoring * Diabetic/sodium controlled diet #Prophylaxis * On Eliquis 2.5mg BID Problem List Problem List - Problems (1) Syncope Code(s): R55 - SYNCOPE AND COLLAPSE Qualifiers: Syncope type: vasovagal syncope Qualified Code(s): R55 - Syncope and collapse Visit type - Emergency Visit Emergency Visit: Yes ED Registration Date: 10/02/18 Care time: The patient presented to the Emergency Department on the above date and was hospitalized for further evaluation of their emergent condition. - New Patient This patient is new to me today: No - Critical Care Critical Care patient: No
[2018-10-04] MEDS ORDERED: CHOLESTYRAMINE/SUCROSE 4 GM PACKET PO SCH (12:00)
[2018-10-04] MEDS ORDERED: PT OWN MED DRAWER 7, Y5N ONE (17:28)
--- NOTE | 2018-10-04 17:52 | PN ---
Teaching Attending Note Name of Resident: Piotr Hernandez ATTENDING PHYSICIAN STATEMENT I saw and evaluated the patient. I reviewed the resident's note and discussed the case with the resident. I agree with the resident's findings and plan as documented. SUBJECTIVE: no fever or chills. feels anxious and wants something for anxiety . no diarrhea . no abd pain OBJECTIVE: NAD, MMM CV: RRR, no MRG Lungs: CTAB Abd: soft, obese, NT, ND , NL BS Ext: no edema., no erythema on legs or arms Assessment/Plan: 48 y/o lady with h/o HTN, DM , depression /anxiety, PE/DVT, s/p IVCF, substance abuse ,chronic lower ext ulcers, ANASTASIA due to tubular necrosis, c diff colitis, and frequent hospitalizations who presented form [facility] with a syncopal episode 1- Syncope: due to orthostatic hypotension - dc tele - no further w/u is indicated - dc iVF 2- HTN urgency: resolved - cont labetalol and Norvasc 3- Diarrhea:c diff neg. cont cholestyramine and f/u as out pt 4-H/o DVT with S/P IVCF: cont eliquis . f/u with heme as out pt 5- DM: SSI 6- Depression and anxiety: cont lexapro and trazodone and seroquel - will not give benzos due to red flags in her behavior 7- L big toe ulcer. 8-Thyroid nodule and L adrenal nodule, need f/u as out pt [facility] to finish her rehab
--- NOTE | 2018-10-04 18:57 | PN.GI ---
GI Progress Note Subjective: No diarrhea today States feeling well C. Diff negative - Objective Vital Signs: Vital Signs Temperature 99.1 F 10/04/18 17:00 Pulse Rate 79 10/04/18 17:00 Respiratory Rate 20 10/04/18 17:00 Blood Pressure 138/89 10/04/18 17:00 O2 Sat by Pulse Oximetry (%) 94 L 10/04/18 15:00 Constitutional: Calm Eyes: No: Sclera Icterus Cardiovascular: Yes: Regular Rate and Rhythm Respiratory: Yes: CTA Bilaterally ...Auscultate: Yes: Normoactive Bowel Sounds ...Palpate: No: Soft, Tenderness ...Percussion: No: Tympanitic Edema: No (No LE edema) Labs: CBC, BMP 10/04/18 05:30 10/04/18 05:30 INR, PTT INR 1.28 (0.83-1.09) H 10/03/18 06:40 Problem List - Problems (1) Syncope Assessment/Plan: Eval per primary team. No repeat episodes Code(s): R55 - SYNCOPE AND COLLAPSE Qualifiers: Syncope type: vasovagal syncope Qualified Code(s): R55 - Syncope and collapse (2) Diarrhea Assessment/Plan: No diarrhea today. If continued improvement, outpatient follow-up. If diarrhea persists, hold [facility] sunday for potential EGD/Colon sunday Code(s): R19.7 - DIARRHEA, UNSPECIFIED
[2018-10-04] MEDS ORDERED: traZODone HCL 50 MG TABLET (FP) ONE (21:19)
[2018-10-04] MEDS: traZODone HCL 100 MG TABLET (FP) PO SCH (21:41)
[2018-10-05 00:15] VITALS: BP 142/94; PULSE 78; TEMP 98
--- NOTE | 2018-10-07 17:43 | DS ---
Physical Exam: SUBJECTIVE: Patient seen and examined OBJECTIVE: PHYSICAL EXAM GENERAL: The patient is awake, alert, and fully oriented, in no acute distress. HEAD: Normal with no signs of trauma. EYES: PERRL, extraocular movements intact, sclera anicteric, conjunctiva clear. ENT: Ears normal, nares patent, oropharynx clear without exudates, moist mucous membranes. NECK: Trachea midline, full range of motion, supple. LUNGS: Breath sounds equal, clear to auscultation bilaterally, no wheezes, no crackles, no accessory muscle use. HEART: Regular rate and rhythm, S1, S2 without murmur, rub or gallop. ABDOMEN: Soft, nontender, nondistended, normoactive bowel sounds, no guarding, no rebound, no hepatosplenomegaly, no masses. EXTREMITIES: 2+ pulses, warm, well-perfused, no edema. NEUROLOGICAL: Cranial nerves II through XII grossly intact. Normal speech, gait not observed. PSYCH: Normal mood, normal affect. SKIN: Warm, dry, normal turgor, no rashes or lesions noted. LABS HOSPITAL COURSE: Date of Admission:10/02/18 Patient is a 48 year old female with past medical history of HTN, NIDDM, CHF, DVT (s/p IVC filter, on Eliquis), peripheral neuropathy and polysubstance abuse , presented from [facility] after suffering a syncopal episode after she ahd been having numerous days of vomiting and dairrhea so she was brought into the ED. they did a head CT which was negative - orthostatcis were initially posiitve then after fluids were negative. stool studies were sent in [facility] to c diff toxin both were negatvei. she was seen by GI who said she needs a scope to be done outpatient but she was started on cholestyramine daily. she was stabel to be discharged back to [facility] to [facility] Date of Discharge: 10/05/18 Minutes to complete discharge: 39 Discharge Summary Reason For Visit: HISTORY OF DEEP VENOUS THROMBOSIS,CONGESTIVE HEART Condition: Stable - Instructions Diet, Activity, Other Instructions: You came to the hospital after almost passing out in your bathroom likely secondary to the copious amounts of vomiting and diarrhea that you have been having. In addition, your blood pressure was very elevated when you arrived. We gave you fluids and your symptoms improved and you were stable to be discharged back to [facility]. Please resume all of your home medications in addition; please take the medication Cholestyramine 2 grams daily in the afternoon Please follow up with Dr. eYe We had referred you upon your last discharge to see a rn integrity, Dr. Wesley please see her within a week Please see Dr. Cruz, the psychiatrist for your anxiety We encourage you to increase your fluid intake *if you begin to experience any dizzy spills, chest pains, shortness of breath, vomiting, fevers please return to the emergency room immediately Thyroid nodule and L adrenal nodule, need followed with your primary care doctor with more imaging and further work up Referrals: Petar Cruz MD [Staff Physician] - 1 Week Brielle Wesley DO [Staff Physician] - 1 Week Doreen Kahn MD [Primary Care Provider] - 1 Week Latrell Man MD [Staff Physician] - 1 Week Disposition: I.P. ALCOHOL/SUBS ABUSE REHAB - Home Medications Comprehensive Discharge Medication List: Ambulatory Orders Pregabalin [Lyrica] 100 mg PO TID 10/02/16 traZODone HCL [Desyrel -] 100 mg PO HS 02/13/18 Amlodipine Besylate 10 mg PO DAILY #30 tablet 08/18/18 Apixaban [Eliquis] 2.5 mg PO BID #60 tablet 08/18/18 Bacitracin - [Bacitracin Topical Ointment -] 1 applic TP DAILY #1 tube 08/18/18 Labetalol HCl [Normodyne -] 400 mg PO BID #120 tablet 08/18/18 Sitagliptin Phosphate [Januvia] 100 mg PO DAILY #30 tablet 08/18/18 Escitalopram Oxalate [Lexapro -] 10 mg PO DAILY #30 tablet 09/23/18 Quetiapine Fumarate [Seroquel -] 50 mg PO BID #30 tablet 09/23/18 Problem List - Problems (1) Syncope Code(s): R55 - SYNCOPE AND COLLAPSE Qualifiers: Syncope type: vasovagal syncope Qualified Code(s): R55 - Syncope and collapse This patient is new to me today: No Emergency Visit: Yes ED Registration Date: 10/02/18 Care time: The patient presented to the Emergency Department on the above date and was hospitalized for further evaluation of their emergent condition. Critical Care patient: No - Discharge Referral Referred to [facility] No
== END 2018-10-04 22:00 | disposition other institution (70) ==
LOC: JER 18:57 → JERBED 23:01 → J4W 10-03 15:16
PROVIDERS: ADMIT Internal Medicine; ATTEND Internal Medicine
PROC: 3E033GC Introduction of Other Therapeutic Substance into Peripheral Vein, Percutaneous Approach (ICD-10-PCS; principal; 2018-10-02)
PROC: 3E0337Z Introduction of Electrolytic and Water Balance Substance into Peripheral Vein, Percutaneous Approach (ICD-10-PCS; 2018-10-02)
DX: R55 Syncope and collapse (principal); I16.0 Hypertensive urgency; E11.22 Type 2 diabetes mellitus with diabetic chronic kidney disease; I12.9 Hypertensive chronic kidney disease with stage 1 through stage 4 chronic kidney disease, or unspecified chronic kidney disease; N18.9 Chronic kidney disease, unspecified; N17.9 Acute kidney failure, unspecified; I50.9 Heart failure, unspecified; F17.210 Nicotine dependence, cigarettes, uncomplicated; F11.10 Opioid abuse, uncomplicated; F12.10 Cannabis abuse, uncomplicated; F41.9 Anxiety disorder, unspecified; F32.9 Major depressive disorder, single episode, unspecified; G62.9 Polyneuropathy, unspecified; R19.7 Diarrhea, unspecified; Z86.718 Personal history of other venous thrombosis and embolism; Z86.711 Personal history of pulmonary embolism; Z95.828 Presence of other vascular implants and grafts; Z79.01 Long term (current) use of anticoagulants; E66.9 Obesity, unspecified; Z68.41 Body mass index [BMI] 40.0-44.9, adult; Z91.14 Patient's other noncompliance with medication regimen; W18.39XA Other fall on same level, initial encounter; Y93.89 Activity, other specified; Y92.230 Patient room in hospital as the place of occurrence of the external cause
CPT/HCPCS: 36415; 70450-TC; 71046-TC-FY; 71275-TC; 80048; 80053; 81003; 82550; 82962; 83735; 83880; 84100; 84484; 84703; 85025; 85027; 85610; 85730; 87324; 87449; 93005; 93010; 96374; 96375; 99285-25; G0378; J7030

== ENCOUNTER 2018-10-05 01:18 | Inpatient (IN) | payer OTHER ==
--- NOTE | 2018-10-05 01:34 | HP ---
BARBARA CLEANING Rehab Assess/Revision - Admission History Admitted to Rehab from: Medical/Surgical Date of Admission to Rehab: 10/04/18 - Vital signs Vital Signs: B/P: 137/91; HR: 90; T: 99.2; O2 Sat = 97%. - Findings Detox History & Physical reviewed: Yes Concur with findings: Yes Comments/Additional Findings: Patient completed detox and was in [facility] rehab when fell after a syncopal episode and sent to ER. Patient transferred back from [facility], after being admitted and evaluated for Syncopal episodes and diarrhea. Alert and oriented. Denies any distress. B/P: 137/91; HR: 90; T: 99.2 ; O2 Sat = 97%. Dx test reviewed: CT's negative; EKG w/ NSR; Neg C-diff; Benzo' s d/c. PMHx: HTN, CHF, PE, DVT, IVC Filter, DM, C-Diff Colitis. MHHx: Depression and anxiety. Patient to return to pre-hospitalized medications except for benzo's. Patient was given all 10/04 HS meds prior to transfer. Inpatient Rehab Admission - Rehab Decision to Admit Inpatient rehab admission?: Yes - Initial Determination Are CD services needed?: Yes Free of communicable disease: Yes Not in need of hospitalization: Yes - Rehab Admission Criteria Previous failed treatment: Yes Poor recovery environment: Yes Comorbidities: Yes Lacks judgement: No Patient is meeting Inpatient Rehab admission criteria:: Yes
[2018-10-05] MEDS ORDERED: LOPERAMIDE HCL 2 MG CAPSULE PO PRN (01:46)
[2018-10-05] MEDS ORDERED: MENTHOL/PHENOL 1 EACH UD MM PRN (01:46)
[2018-10-05] MEDS ORDERED: P-EPHED 60MG/TRIPROLIDI 2.5MG TABLET PO PRN (01:46)
[2018-10-05] MEDS ORDERED: IBUPROFEN 400 MG TABLET (FP) PO PRN (01:46)
[2018-10-05] MEDS ORDERED: ACETAMINOPHEN 325 MG TABLET (FP) PO PRN (01:46)
[2018-10-05] MEDS ORDERED: guaiFENesin 200 MG/10 ML 10 ML UNIT-DOSE CUPS PO PRN (01:46)
[2018-10-05] MEDS ORDERED: PREGABALIN 100 MG CAPSULE PO SCH (06:00)
[2018-10-05] MEDS: INSULIN SLIDING SCALE (NOVOLOG) 1 VIAL SQ SCH ×4 (06:36→21:19)
[2018-10-05] MEDS: sitaGLIPtin PHOSPHATE 100 MG TABLET (FP) PO SCH (06:37)
[2018-10-05] MEDS: PREGABALIN 50 MG CAPSULE PO SCH ×3 (06:37→21:17)
[2018-10-05] MEDS ORDERED: LABETALOL HCL 100 MG TABLET (FP) ONE ×2 (08:32→20:10)
[2018-10-05] MEDS ORDERED: PT OWN MED DRAWER 7, Y5N ONE ×2 (08:34→20:12)
[2018-10-05] MEDS: amLODIPine BESYLATE 10 MG TABLET (FP) PO SCH (09:49)
[2018-10-05] MEDS: PRENATAL VITAMINS W/ FOLIC ACID TABLET (FP) PO SCH (09:49)
[2018-10-05] MEDS: LABETALOL HCL 200 MG TABLET (FP) PO SCH ×2 (09:49→21:17)
[2018-10-05] MEDS: QUEtiapine FUMARATE 50 MG TABLET PO SCH ×2 (09:49→21:17)
[2018-10-05] MEDS: ESCITALOPRAM OXALATE 10 MG TABLET (FP) PO SCH (09:49)
[2018-10-05] MEDS: NICOTINE 21 MG/24 HOURS TOPICAL PATCH TD SCH (09:50)
[2018-10-05] MEDS ORDERED: BACITRACIN 15 GM TUBE TOPICAL OINTMENT TP SCH (10:00)
[2018-10-05] MEDS: APIXABAN 2.5 MG TABLET PO SCH ×2 (11:00→21:17)
[2018-10-05] MEDS ORDERED: INSULIN (NOVOLOG) ASPART 100 UNITS/ML 10ML VIAL ONE (16:29)
[2018-10-05] MEDS: traZODone HCL 100 MG TABLET (FP) PO SCH (21:16)
[2018-10-05] MEDS: THIAMINE HCL 100 MG TABLET (FP) PO SCH (21:16)
[2018-10-05] MEDS: MELATONIN 5 MG TABLETS PO PRN (21:18)
[2018-10-06] MEDS: sitaGLIPtin PHOSPHATE 100 MG TABLET (FP) PO SCH (06:38)
[2018-10-06] MEDS: PREGABALIN 50 MG CAPSULE PO SCH ×3 (06:38→21:09)
[2018-10-06] MEDS: INSULIN SLIDING SCALE (NOVOLOG) 1 VIAL SQ SCH ×4 (06:38→21:10)
[2018-10-06] MEDS ORDERED: LABETALOL HCL 100 MG TABLET (FP) ONE (08:21)
[2018-10-06] MEDS ORDERED: PT OWN MED DRAWER 7, Y5N ONE ×2 (09:47→19:43)
[2018-10-06] MEDS: APIXABAN 2.5 MG TABLET PO SCH ×2 (09:47→21:08)
[2018-10-06] MEDS: NICOTINE 21 MG/24 HOURS TOPICAL PATCH TD SCH (09:47)
[2018-10-06] MEDS: BACITRACIN 0.9 GM PACKET TP SCH (09:47)
[2018-10-06] MEDS: ESCITALOPRAM OXALATE 10 MG TABLET (FP) PO SCH (09:47)
[2018-10-06] MEDS: LABETALOL HCL 200 MG TABLET (FP) PO SCH ×2 (09:47→21:07)
[2018-10-06] MEDS: amLODIPine BESYLATE 10 MG TABLET (FP) PO SCH (09:48)
[2018-10-06] MEDS: QUEtiapine FUMARATE 50 MG TABLET PO SCH ×2 (09:48→21:08)
[2018-10-06] MEDS: PRENATAL VITAMINS W/ FOLIC ACID TABLET (FP) PO SCH (09:48)
[2018-10-06] MEDS: MELATONIN 5 MG TABLETS PO PRN (21:07)
[2018-10-06] MEDS: traZODone HCL 100 MG TABLET (FP) PO SCH (21:08)
[2018-10-06] MEDS: THIAMINE HCL 100 MG TABLET (FP) PO SCH (21:08)
[2018-10-07] MEDS: INSULIN SLIDING SCALE (NOVOLOG) 1 VIAL SQ SCH ×4 (06:30→21:22)
[2018-10-07] MEDS: sitaGLIPtin PHOSPHATE 100 MG TABLET (FP) PO SCH (06:30)
[2018-10-07] MEDS: PREGABALIN 50 MG CAPSULE PO SCH ×3 (06:30→21:18)
[2018-10-07] MEDS ORDERED: PT OWN MED DRAWER 7, Y5N ONE ×2 (08:37→21:20)
[2018-10-07] MEDS: QUEtiapine FUMARATE 50 MG TABLET PO SCH ×2 (10:02→21:18)
[2018-10-07] MEDS: ESCITALOPRAM OXALATE 10 MG TABLET (FP) PO SCH (10:02)
[2018-10-07] MEDS: BACITRACIN 0.9 GM PACKET TP SCH (10:02)
[2018-10-07] MEDS: APIXABAN 2.5 MG TABLET PO SCH ×2 (10:03→21:20)
[2018-10-07] MEDS: PRENATAL VITAMINS W/ FOLIC ACID TABLET (FP) PO SCH (10:03)
[2018-10-07] MEDS: NICOTINE 21 MG/24 HOURS TOPICAL PATCH TD SCH (10:04)
[2018-10-07] MEDS: amLODIPine BESYLATE 10 MG TABLET (FP) PO SCH (10:05)
[2018-10-07] MEDS: LABETALOL HCL 200 MG TABLET (FP) PO SCH ×2 (10:05→21:23)
--- NOTE | 2018-10-07 11:15 | PN ---
[facility] Progress Note Note: BGM REVIEWED AND RANGE RESULTS: 110-169. WILL CONTINUE NOVOLOG SLIDING SCALE ORDERED. MONITOR CLINICALLY. Vital Signs Temperature 97.7 F 10/07/18 07:13 Pulse Rate 99 H 10/07/18 10:11 Respiratory Rate 18 10/07/18 07:13 Blood Pressure 107/78 10/07/18 10:11 O2 Sat by Pulse Oximetry (%)
[2018-10-07] MEDS ORDERED: LABETALOL HCL 200 MG TABLET (FP) PO ONE (11:45)
[2018-10-07] MEDS: ACETAMINOPHEN 325 MG TABLET (FP) PO PRN (15:51)
[2018-10-07] MEDS: NICOTINE POLACRILEX 2 MG GUM BUC PRN (16:42)
[2018-10-07] MEDS ORDERED: LABETALOL HCL 100 MG TABLET (FP) ONE (19:45)
[2018-10-07] MEDS: THIAMINE HCL 100 MG TABLET (FP) PO SCH (21:18)
[2018-10-07] MEDS: traZODone HCL 100 MG TABLET (FP) PO SCH (21:18)
[2018-10-07] MEDS: MELATONIN 5 MG TABLETS PO PRN (21:18)
--- NOTE | 2018-10-07 22:20 | PN ---
BARBARA Progress Note Note: Patient was seen and examined at bedside with complaint of left leg pain and swelling. She rates left leg pain now at 710. 2+ pitting edema an d palpable pulses noted Vital Signs Temperature 97.7 F 10/07/18 07:13 Pulse Rate 82 10/07/18 11:28 Respiratory Rate 18 10/07/18 07:13 Blood Pressure 117/83 10/07/18 11:28 O2 Sat by Pulse Oximetry (%) Action:Continue Pregabalin 100mg tablet oral BID Acetaminophen 325mg tablet oral Q6H as n eeded Elevate left lower extremity
[2018-10-08] MEDS ORDERED: PT OWN MED DRAWER 7, Y5N ONE ×3 (05:57→21:37)
[2018-10-08] MEDS: PREGABALIN 50 MG CAPSULE PO SCH ×2 (07:13→14:54)
[2018-10-08] MEDS: sitaGLIPtin PHOSPHATE 100 MG TABLET (FP) PO SCH (07:13)
[2018-10-08] MEDS: INSULIN SLIDING SCALE (NOVOLOG) 1 VIAL SQ SCH ×4 (07:14→21:40)
[2018-10-08] MEDS ORDERED: LABETALOL HCL 100 MG TABLET (FP) ONE ×2 (09:02→19:51)
[2018-10-08] MEDS: BACITRACIN 0.9 GM PACKET TP SCH (10:01)
[2018-10-08] MEDS: QUEtiapine FUMARATE 50 MG TABLET PO SCH ×2 (10:01→21:34)
[2018-10-08] MEDS: APIXABAN 2.5 MG TABLET PO SCH ×2 (10:01→21:37)
[2018-10-08] MEDS: ESCITALOPRAM OXALATE 10 MG TABLET (FP) PO SCH (10:02)
[2018-10-08] MEDS: LABETALOL HCL 200 MG TABLET (FP) PO SCH ×2 (10:02→21:35)
[2018-10-08] MEDS: PRENATAL VITAMINS W/ FOLIC ACID TABLET (FP) PO SCH (10:02)
[2018-10-08] MEDS: amLODIPine BESYLATE 10 MG TABLET (FP) PO SCH (10:02)
[2018-10-08] MEDS: NICOTINE 21 MG/24 HOURS TOPICAL PATCH TD SCH (10:03)
--- NOTE | 2018-10-08 13:52 | PN ---
BHS COWS - Scale Resting Pulse: 1= CA 81-100 Sweatin= Chills/Flushing Restless Observation: 0= Sits Still Pupil Size: 0= Normal to Room Light Bone or Joint Aches: 4=Acute Joint/Muscle Pain Runny Nose/ Eye Tearin= Nasal Congestion GI Upset > 30mins: 2= Nausea/Diarrhea (STILL HAVE NAUSEA/DIARRHEA RESOLVED) Tremor Observation of Outstretched Hands: 0= None Yawning Observation: 1= 1-2x During Session Anxiety or Irritability: 1=Feels Anxious/Irritable Goose Flesh Skin: 3=Piloerection COWS Score: 14 BHS Progress Note (SOAP) Subjective: PT IS A 48 Y/O FEMALE WITH A HX OF HEROIN DEPENDENCE REPORTS 3-4 BAGS/WEEK MOST RECENT USE PATTERN BEFORE HOSPITALIZATION. PT REPORTS PREVIOUSLY ON SUBOXONE AT [facility](SEE BELOW). PT REPORTS SUBOXONE HELPED HER "TREMENDOUSLY" UNTIL HER BENEFIT WAS CUT OFF AND SHE RELAPSED. PT NOW WANTS TO GET BACK ON IT SINCE INSURANCE HAS BEEN STRAIGHTENED OUT. PT IS ALERT O X 3. DENIES S/H/I. Others' Prescriptions Patient Name: Traci Cobb Date: 1970 Address: [address] [place] [address] Sex: Female Rx Written Rx Dispensed Drug Quantity Days Supply Prescriber Name 08/22/2018 08/23/2018 lyrica 100 mg capsule 90 30 Lobito Ordaz 06/26/2018 06/26/2018 suboxone 2 mg-0.5 mg sl film 7 7 Rosa Garcia NP, PHD 06/21/2018 06/21/2018 suboxone 2 mg-0.5 mg sl film 6 6 Rosa Garcia NP, PHD 05/21/2018 05/21/2018 suboxone 8 mg-2 mg sl film 14 7 Rosa Garcia NP, PHD 03/04/2018 05/13/2018 lyrica 100 mg capsule 90 30 Lobito Ordaz 05/08/2018 05/13/2018 suboxone 8 mg-2 mg sl film 14 7 Rosa Garcia NP, PHD 05/01/2018 05/06/2018 suboxone 8 mg-2 mg sl film 14 7 Rosa Garcia NP, PHD 04/26/2018 04/30/2018 suboxone 8 mg-2 mg sl film 12 6 Rosa Garcia SPECIMEN ACCESSIONER, PHD 04/17/2018 04/19/2018 suboxone 8 mg-2 mg sl film 14 7 Rosa Garcia SPECIMEN ACCESSIONER, PHD 04/09/2018 04/11/2018 suboxone 8 mg-2 mg sl film 14 7 Rosa Garcia SPECIMEN ACCESSIONER, PHD 03/04/2018 04/05/2018 lyrica 100 mg capsule 90 30 Lobito Ordaz H 04/02/2018 04/05/2018 suboxone 8 mg-2 mg sl film 14 7 Rosa Garcia SPECIMEN ACCESSIONER, PHD 03/27/2018 03/30/2018 suboxone 8 mg-2 mg sl film 12 6 Rosa Garcia SPECIMEN ACCESSIONER, PHD 03/20/2018 03/22/2018 suboxone 8 mg-2 mg sl film 16 8 Rosa Garcia NP, PHD 03/13/2018 03/16/2018 suboxone 8 mg-2 mg sl film 16 8 Rosa Garcia SPECIMEN ACCESSIONER, PHD 03/06/2018 03/06/2018 suboxone 8 mg-2 mg sl film 16 8 Rosa Garcia SPECIMEN ACCESSIONER, PHD 03/04/2018 03/05/2018 zolpidem tartrate 10 mg tablet 15 15 Lobito Ordaz 03/04/2018 03/05/2018 lyrica 100 mg capsule 90 30 Lobito Ordaz H 02/26/2018 02/27/2018 suboxone 8 mg-2 mg sl film 16 8 Rosa Garcia SPECIMEN ACCESSIONER, PHD 02/20/2018 02/20/2018 suboxone 8 mg-2 mg sl film 14 7 Rosa Garcia SPECIMEN ACCESSIONER, PHD 02/13/2018 02/13/2018 suboxone 8 mg-2 mg sl film 14 7 Rosa Garcia SPECIMEN ACCESSIONER, PHD 02/08/2018 02/08/2018 suboxone 8 mg-2 mg sl film 10 5 Rosa Garcia SPECIMEN ACCESSIONER, PHD 01/30/2018 02/01/2018 suboxone 8 mg-2 mg sl film 14 7 Rosa Garcia NP, PHD 01/29/2018 01/29/2018 zolpidem tartrate 10 mg tablet 15 15 Doreen Abraham) 01/29/2018 01/29/2018 lyrica 100 mg capsule 90 30 UshaDoreen Arauz () 01/23/2018 01/24/2018 suboxone 8 mg-2 mg sl film 14 7 Rosa Garcia NP, PHD 01/17/2018 01/18/2018 suboxone 8 mg-2 mg sl film 14 7 Rsoa Garcia NP, PHD 01/02/2018 01/02/2018 suboxone 8 mg-2 mg sl film 45 15 Rosa Garcia NP, PHD 12/21/2017 12/26/2017 zolpidem tartrate 10 mg tablet 15 15 Doreen Abraham () 12/21/2017 12/26/2017 lyrica 100 mg capsule 90 30 Doreen Tapia () 12/26/2017 12/26/2017 suboxone 8 mg-2 mg sl film 24 8 Rosa Garcia NP, PHD 12/18/2017 12/18/2017 suboxone 8 mg-2 mg sl film 24 8 Rosa Garcia NP, PHD 12/11/2017 12/11/2017 suboxone 8 mg-2 mg sl film 24 8 Rosa Garcia NP, PHD 12/04/2017 12/04/2017 suboxone 8 mg-2 mg sl film 24 8 Rosa Garcia NP, PHD 11/07/2017 11/10/2017 zolpidem tartrate 10 mg tablet 30 30 Doreen Abraham) 11/07/2017 11/10/2017 lyrica 100 mg capsule 90 30 Doreen Tapia) 10/23/2017 10/23/2017 suboxone 8 mg-2 mg sl film 90 30 Rosa Garcia SPECIMEN ACCESSIONER, PHD Patient Name: Traci Cobb Date: 1970 Address: [address] [place] [address] Sex: Female Rx Written Rx Dispensed Drug Quantity Days Supply Prescriber Name 09/22/2017 10/13/2017 lyrica 100 mg capsule 60 20 Mariano Hill MD 10/11/2017 10/11/2017 oxycodone hcl 10 mg tablet 180 30 Cijo, Geocia A * - Drugs marked with an asterisk are compound drugs. If the compound drug is made up of more than one controlled substance, then each controlled substance will be a separate row in the table. Click the Report Suspicious Activity button to report information related to controlled substance suspicious activity to the [place] [employer]otic Enforcement. Click the Send Questions/Comments button to send questions about this report to the [place] [employer], or call . Click the Substance Abuse Treatment Information button to go to the Office of Alcoholism and Substance Abuse Services website, www.[place].gov or call 1- 456.779.2609. All Active Problems ANASTASIA (acute kidney injury) (Acute) Back pain (Acute) C. difficile colitis (Acute) CHF exacerbation (Acute) DVT (deep venous thrombosis) (Acute) Diabetic ulcer of left great toe (Acute) Hx of deep venous thrombosis (Acute) Hypotension (Acute) Hypovolemic shock (Acute) Nausea (Acute) Nausea & vomiting (Acute) Opiate dependence (Acute) Overdose of heroin (Acute) Polysubstance (excluding opioids) dependence (Acute) SIRS (systemic inflammatory response syndrome) (Acute) Syncope (Acute) Tobacco dependence (Acute) Anemia (Chronic) Anxiety and depression (Chronic) Anxiety disorder (Chronic) CHF (congestive heart failure) (Chronic) Cannabis dependence (Chronic) Cigarette nicotine dependence with nicotine-induced disorder (Chronic) Diabetes mellitus treated with oral medication (Chronic) Diabetic neuropathy associated with type 2 diabetes mellitus (Chronic) Hx of acute renal failure (Chronic) Hypertension (Chronic) Low back pain (Chronic) Morbid obesity (Chronic) Ovarian cyst (Chronic) Objective: 10/08/18 13:52 Vital Signs (72 hours) 10/06/18 10/06/18 10/06/18 00:30 03:30 07:27 Temperature 97.8 F Pulse Rate 89 Respiratory 18 18 18 Rate Blood Pressure 141/89 10/06/18 10/06/18 10/07/18 09:27 22:12 00:30 Temperature Pulse Rate 93 H 103 H Respiratory 17 18 Rate Blood Pressure 111/76 124/87 10/07/18 10/07/18 10/07/18 03:30 07:13 10:00 Temperature 97.7 F Pulse Rate 83 93 H Respiratory 18 18 Rate Blood Pressure 127/85 106/69 10/07/18 10/07/18 10/08/18 10:11 11:28 00:30 Temperature Pulse Rate 99 H 82 Respiratory 17 Rate Blood Pressure 107/78 117/83 10/08/18 10/08/18 10/08/18 03:30 07:21 09:49 Temperature 97.4 F L Pulse Rate 85 94 H Respiratory 18 18 Rate Blood Pressure 137/89 119/80 Laboratory Tests 10/05/18 10/05/18 10/05/18 06:35 11:16 16:44 POC Glucometer 137 178 126 10/05/18 10/06/18 10/06/18 21:16 06:37 11:28 POC Glucometer 130 110 128 10/06/18 10/06/18 10/07/18 16:32 21:07 06:29 POC Glucometer 132 169 120 10/07/18 10/07/18 10/07/18 11:27 16:41 21:22 POC Glucometer 103 128 180 10/08/18 10/08/18 07:12 11:12 POC Glucometer 144 116 UDS= THC Home Medications Medication Instructions Recorded Pregabalin [Lyrica] 100 mg PO TID 10/02/16 traZODone HCL [Desyrel -] 100 mg PO HS 02/13/18 Amlodipine Besylate 10 mg PO DAILY #30 tablet 08/18/18 Apixaban [Eliquis] 2.5 mg PO BID #60 tablet 08/18/18 Bacitracin - [Bacitracin Topical 1 applic TP DAILY #1 tube 08/18/18 Ointment -] Labetalol HCl [Normodyne -] 400 mg PO BID #120 tablet 08/18/18 Sitagliptin Phosphate [Januvia] 100 mg PO DAILY #30 tablet 08/18/18 Escitalopram Oxalate [Lexapro -] 10 mg PO DAILY #30 tablet 09/23/18 Quetiapine Fumarate [Seroquel -] 50 mg PO BID #30 tablet 09/23/18 CAEDIAC:S1 S2 RRR LUNGS:CTA ABDOMEN:SOFT,+FATTY EXTREMITIES:ACTIVE ROM;EDEMA LEFT ANKLE >RIGHT. Assessment: 10/08/18 13:52 RESIDUAL OPIOID W/S CRAVINGS (PMHx/DX:SEE PROBLEM LIST) Plan: DISCUSSED WITH PATIENT PERTINENT INFORMATION ON MAT DRUG SCREEN NEGATIVE FOR OPIATES MET WITH HER COUNSELOR AND AFTERCARE SET UP AT [facility] COPY OF CONSENT FOR MAT SIGNED AND IN PATIENT'S CHART START SUBOXONE 2 MG/0.5 MG SL DAILY, FIRST DOSE NOW. ADDENDUM:PT HAS A PRIMARY CARE DOCTOR NAMED DR. LOBITO KHANNA AT [facility], [address] [place] [address]. PT WILL BE RETURNING TO HER PMD FOR MEDICAL MANAGEMENT AFTER REHAB.
[2018-10-08] MEDS ORDERED: BUPRENORPHINE/NALOXONE 2 MG/0.5 MG FILM PACKET SL ONE (14:13)
[2018-10-08] MEDS: PREGABALIN 100 MG CAPSULE PO SCH ×2 (14:43→21:35)
[2018-10-08] MEDS: THIAMINE HCL 100 MG TABLET (FP) PO SCH (21:34)
[2018-10-08] MEDS: traZODone HCL 100 MG TABLET (FP) PO SCH (21:35)
[2018-10-08] MEDS: MELATONIN 5 MG TABLETS PO PRN (21:36)
[2018-10-08] MEDS: ACETAMINOPHEN 325 MG TABLET (FP) PO PRN (23:28)
[2018-10-09] MEDS: sitaGLIPtin PHOSPHATE 100 MG TABLET (FP) PO SCH (06:33)
[2018-10-09] MEDS: PREGABALIN 100 MG CAPSULE PO SCH ×3 (06:33→21:16)
[2018-10-09] MEDS: INSULIN SLIDING SCALE (NOVOLOG) 1 VIAL SQ SCH ×2 (06:33→17:57)
[2018-10-09] MEDS: BUPRENORPHINE/NALOXONE 2 MG/0.5 MG FILM PACKET SL SCH (10:09)
[2018-10-09] MEDS: ESCITALOPRAM OXALATE 10 MG TABLET (FP) PO SCH (10:09)
[2018-10-09] MEDS: amLODIPine BESYLATE 10 MG TABLET (FP) PO SCH (10:09)
[2018-10-09] MEDS: PRENATAL VITAMINS W/ FOLIC ACID TABLET (FP) PO SCH (10:09)
[2018-10-09] MEDS: BACITRACIN 0.9 GM PACKET TP SCH (10:09)
[2018-10-09] MEDS: QUEtiapine FUMARATE 50 MG TABLET PO SCH ×2 (10:09→21:16)
[2018-10-09] MEDS: APIXABAN 2.5 MG TABLET PO SCH ×2 (10:09→21:18)
[2018-10-09] MEDS: LABETALOL HCL 200 MG TABLET (FP) PO SCH ×2 (10:09→23:06)
[2018-10-09] MEDS: NICOTINE POLACRILEX 2 MG GUM BUC PRN ×2 (10:10→13:56)
[2018-10-09] MEDS: NICOTINE 21 MG/24 HOURS TOPICAL PATCH TD SCH (10:10)
[2018-10-09] MEDS ORDERED: LABETALOL HCL 100 MG TABLET (FP) ONE (19:25)
[2018-10-09] MEDS: traZODone HCL 100 MG TABLET (FP) PO SCH (21:16)
[2018-10-09] MEDS: THIAMINE HCL 100 MG TABLET (FP) PO SCH (21:16)
[2018-10-09] MEDS: MELATONIN 5 MG TABLETS PO PRN (21:17)
[2018-10-09] MEDS ORDERED: PT OWN MED DRAWER 7, Y5N ONE (21:18)
[2018-10-09] MEDS: ACETAMINOPHEN 325 MG TABLET (FP) PO PRN (21:19)
[2018-10-10] MEDS: sitaGLIPtin PHOSPHATE 100 MG TABLET (FP) PO SCH (06:38)
[2018-10-10] MEDS: PREGABALIN 100 MG CAPSULE PO SCH ×3 (06:38→21:43)
[2018-10-10] MEDS: INSULIN SLIDING SCALE (NOVOLOG) 1 VIAL SQ SCH ×2 (06:39→17:22)
[2018-10-10] MEDS ORDERED: LABETALOL HCL 100 MG TABLET (FP) ONE ×2 (08:30→19:14)
[2018-10-10] MEDS: ACETAMINOPHEN 325 MG TABLET (FP) PO PRN ×3 (09:20→21:44)
[2018-10-10] MEDS: QUEtiapine FUMARATE 50 MG TABLET PO SCH ×2 (09:21→21:44)
[2018-10-10] MEDS: PRENATAL VITAMINS W/ FOLIC ACID TABLET (FP) PO SCH (09:21)
[2018-10-10] MEDS: ESCITALOPRAM OXALATE 10 MG TABLET (FP) PO SCH (09:21)
[2018-10-10] MEDS: BACITRACIN 0.9 GM PACKET TP SCH (09:21)
[2018-10-10] MEDS: APIXABAN 2.5 MG TABLET PO SCH ×2 (10:15→21:43)
[2018-10-10] MEDS: amLODIPine BESYLATE 10 MG TABLET (FP) PO SCH (10:15)
[2018-10-10] MEDS: BUPRENORPHINE/NALOXONE 2 MG/0.5 MG FILM PACKET SL SCH (10:16)
[2018-10-10] MEDS: NICOTINE 21 MG/24 HOURS TOPICAL PATCH TD SCH (10:17)
[2018-10-10] MEDS: LABETALOL HCL 200 MG TABLET (FP) PO SCH ×2 (10:17→21:46)
[2018-10-10] MEDS: traZODone HCL 100 MG TABLET (FP) PO SCH (21:43)
[2018-10-10] MEDS: THIAMINE HCL 100 MG TABLET (FP) PO SCH (21:43)
[2018-10-10] MEDS: MELATONIN 5 MG TABLETS PO PRN (21:46)
[2018-10-11] MEDS: ACETAMINOPHEN 325 MG TABLET (FP) PO PRN (06:28)
[2018-10-11] MEDS: PREGABALIN 100 MG CAPSULE PO SCH ×2 (06:29→14:24)
[2018-10-11] MEDS: INSULIN SLIDING SCALE (NOVOLOG) 1 VIAL SQ SCH ×2 (06:29→18:56)
[2018-10-11] MEDS: sitaGLIPtin PHOSPHATE 100 MG TABLET (FP) PO SCH (06:29)
[2018-10-11] MEDS ORDERED: PT OWN MED DRAWER 7, Y5N ONE (09:14)
[2018-10-11] MEDS ORDERED: METHYL SALICYLATE/MENTHOL OINT 30 GM TUBE TP SCH (10:15)
--- NOTE | 2018-10-11 10:16 | PN ---
S Progress Note Note: C/O CHRONIC LEFT ANKLE PAIN/SWELLING. PT REPORTS HX ANKLE FRACTURE IN EARLY 2018. DENIES RECENT INJURY. Vital Signs (72 hours) 10/08/18 10/09/18 10/09/18 21:15 00:30 03:30 Temperature Pulse Rate 82 Respiratory 18 18 Rate Blood Pressure 97/65 10/09/18 10/09/18 10/09/18 07:16 09:51 10:07 Temperature 97.4 F L Pulse Rate 76 80 76 Respiratory 18 Rate Blood Pressure 108/70 101/69 121/81 10/09/18 10/10/18 10/10/18 21:50 00:30 03:30 Temperature Pulse Rate 92 H Respiratory 18 18 Rate Blood Pressure 123/80 10/10/18 10/10/18 10/10/18 07:17 09:15 10:15 Temperature 97.3 F L Pulse Rate 93 H 92 H 96 H Respiratory 18 Rate Blood Pressure 115/78 107/74 117/83 10/10/18 10/11/18 10/11/18 21:25 00:30 03:30 Temperature Pulse Rate 91 H Respiratory 18 18 Rate Blood Pressure 115/77 10/11/18 10/11/18 07:06 09:16 Temperature 97.8 F Pulse Rate 86 86 Respiratory 18 17 Rate Blood Pressure 123/78 104/70 Laboratory Tests 10/05/18 10/05/18 10/05/18 06:35 11:16 16:44 POC Glucometer 137 178 126 10/05/18 10/06/18 10/06/18 21:16 06:37 11:28 POC Glucometer 130 110 128 10/06/18 10/06/18 10/07/18 16:32 21:07 06:29 POC Glucometer 132 169 120 10/07/18 10/07/18 10/07/18 11:27 16:41 21:22 POC Glucometer 103 128 180 10/08/18 10/08/18 10/08/18 07:12 11:12 16:31 POC Glucometer 144 116 98 10/08/18 10/09/18 10/09/18 21:39 06:33 16:56 POC Glucometer 158 161 141 10/10/18 10/10/18 10/11/18 06:37 16:54 06:27 POC Glucometer 147 138 126 EXTREMITIES: LEFT ANKLE SWELLING WITH SLIGHT PAIN ON PALP. NOT PITTING. ACTIVE ROM TO LEFT ANKLE. NO REDNESS OR WARMTH. (+2) PEDAL PULSE, ELISHA. RIGHT FOOT/ANKLE WITH MINIMAL NON PITTING EDEMA. HX CHRONIC ANKLE EDEMA AND OLD FRACTURE OF LEFT ANKLE(SEE REPORTS IN SYSTEM FOR FX AND SWELLING HX) PLAN:PT DECLINES NAYE STOCKINGS; AGREEABLE TO SOWMYA BANDAGE WRAP. ANALGESIC BALM TO LEFT ANKLE DIRECTED ELEVATE LEG WHILE IN BED AND NEEDED. COLD COMPRESS TO LEFT ANKLE PRN FOLLOW UP WITH YOUR PCP/ORTHOPEDICS AFTER REHAB TREATMENT. RE-EVALUATE PT IF NOT IMPROVING AND TRANSFER TO [facility] ER FOR FURTHER EVALUATION AND TREATMENT.
[2018-10-11] MEDS: BUPRENORPHINE/NALOXONE 2 MG/0.5 MG FILM PACKET SL SCH (10:18)
[2018-10-11] MEDS: ESCITALOPRAM OXALATE 10 MG TABLET (FP) PO SCH (10:18)
[2018-10-11] MEDS: PRENATAL VITAMINS W/ FOLIC ACID TABLET (FP) PO SCH (10:18)
[2018-10-11] MEDS: amLODIPine BESYLATE 10 MG TABLET (FP) PO SCH (10:19)
[2018-10-11] MEDS: LABETALOL HCL 200 MG TABLET (FP) PO SCH (10:19)
[2018-10-11] MEDS: QUEtiapine FUMARATE 50 MG TABLET PO SCH (10:19)
[2018-10-11] MEDS: BACITRACIN 0.9 GM PACKET TP SCH (10:19)
[2018-10-11] MEDS: APIXABAN 2.5 MG TABLET PO SCH (10:20)
[2018-10-11] MEDS: NICOTINE 21 MG/24 HOURS TOPICAL PATCH TD SCH (10:20)
--- NOTE | 2018-10-11 14:59 | PN ---
[facility] Progress Note Note: PT IS REQUESTING TO GO BACK TO [facility] ER THIS AFTERNOON FOR C/O LEFT ANKLE SWELLING. PT WAS EVALUATED IN THE MORNING WITH NO CHANGE IN STATUS. PT IS ALERT O X 3. DENIES C/P,DIZZINESS, HEADACHE OR LOC. Vital Signs (72 hours) 10/08/18 10/09/18 10/09/18 21:15 00:30 03:30 Temperature Pulse Rate 82 Respiratory 18 18 Rate Blood Pressure 97/65 10/09/18 10/09/18 10/09/18 07:16 09:51 10:07 Temperature 97.4 F L Pulse Rate 76 80 76 Respiratory 18 Rate Blood Pressure 108/70 101/69 121/81 10/09/18 10/10/18 10/10/18 21:50 00:30 03:30 Temperature Pulse Rate 92 H Respiratory 18 18 Rate Blood Pressure 123/80 10/10/18 10/10/18 10/10/18 07:17 09:15 10:15 Temperature 97.3 F L Pulse Rate 93 H 92 H 96 H Respiratory 18 Rate Blood Pressure 115/78 107/74 117/83 10/10/18 10/11/18 10/11/18 21:25 00:30 03:30 Temperature Pulse Rate 91 H Respiratory 18 18 Rate Blood Pressure 115/77 10/11/18 10/11/18 07:06 09:16 Temperature 97.8 F Pulse Rate 86 86 Respiratory 18 17 Rate Blood Pressure 123/78 104/70 A:LEFT ANKLE SWELLING HX OLD FX LEFT ANKLE PLAN:TRANSFER VIA AMBULANCE TO [facility] FOR FURTHER EVALUATION AND POSSIBLE TREATMENT. SPOKE TO DR. Franc PRIETO WHO AGREED TO RECEIVE THE PATIENT.
[2018-10-11 15:33] VITALS: TEMP 97.8
[2018-10-11 15:34] VITALS: BP 122/82; PULSE 79
--- NOTE | 2018-10-11 22:22 | PN ---
[facility] Progress Note Note: Patient discharged from [facility] ED and states leaving for home. Patient has hospital discharge papers. Alert and oriented. Ambulating w/ steady gait. Patient completed several days of rehab between 09/17/18 and 10/11/18, interspersed with hospital admissions for leg and chest pain. Laboratory Last Values POC Glucometer 126 UNITS (80-120) 10/11/18 06:27 Vital Signs - 24 hr 10/11/18 10/11/18 10/11/18 00:30 02:55 03:30 Temperature 98.6 F Pulse Rate 83 Respiratory 18 18 18 Rate Blood Pressure 120/81 10/11/18 10/11/18 10/11/18 07:06 09:16 10:15 Temperature 97.8 F Pulse Rate 86 86 79 Respiratory 18 17 18 Rate Blood Pressure 123/78 104/70 122/82 PMHx: HTN, CHF, PE, DVT, IVC Filter, DM, C-Diff Colitis. Encouraged to f/u w/ PCP. MHHx: Depression and anxiety. Encouraged to f/u w/ MH Provider Substance use Hx: Opioids, Marijuana, Cocaine, PCP, MDMA Patient states is going home and did not return to the rehab unit. Prescriptions were sent to home pharmacy. Patient will be calling Suboxone program on 10/14/18 to obtain appointment for medication renewal. Overdose risks and prevention discussed. Patient states has a Narcan kit at home. Declined nicotine patch/gum. Patient discharged. Left for home, from [facility], alert, oriented, with steady gait, in no apparent distress.
== END 2018-10-11 22:30 | disposition home or self-care (01) | DRG 772 ==
LOC: YASAS 01:18 → Y3E 01:19
PROVIDERS: ADMIT Neuromusculoskeletal Medicine & OMM; ATTEND Neuromusculoskeletal Medicine & OMM
PROC: HZ42ZZZ Group Counseling for Substance Abuse Treatment, Cognitive-Behavioral (ICD-10-PCS; principal; 2018-10-05)
DX: F11.20 Opioid dependence, uncomplicated (principal); F14.20 Cocaine dependence, uncomplicated; F12.20 Cannabis dependence, uncomplicated; F16.20 Hallucinogen dependence, uncomplicated; F15.20 Other stimulant dependence, uncomplicated; F41.8 Other specified anxiety disorders; F32.9 Major depressive disorder, single episode, unspecified; D64.9 Anemia, unspecified; E66.01 Morbid (severe) obesity due to excess calories; Z68.44 Body mass index [BMI] 60.0-69.9, adult; Z86.718 Personal history of other venous thrombosis and embolism; M79.662 Pain in left lower leg; M79.602 Pain in left arm; R60.0 Localized edema; I11.0 Hypertensive heart disease with heart failure; I50.9 Heart failure, unspecified
CPT/HCPCS: 82962

== ENCOUNTER 2018-10-11 16:20 | Emergency (ER) | payer OTHER ==
[2018-10-11 16:36] VITALS: BP 112/68; PULSE 88; TEMP 98.4; BMI 39.9
--- NOTE | 2018-10-11 17:49 | PDOC ---
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 The patient presents 3 days of left foot swelling. The patient reports she is compliant with medication. Jhony trauma or injury to the leg. The patient reports a hx of left ankle fracture, no surgery secondary to health concerns. The patient reports she is able to ambulate. Allergies: Ondansetron Social history: Heroin use. Current smoker. No alcohol use. Surgical history:lap bernadine, prolapsed bladder, R ankle repair, IVC placement PMD: Dr. Tapia - Physicial Exam PE: 10/11/18 19:06 GENERAL: The patient is in no acute distress. ENT: Mouth: poor dentition. Ears normal, nares patent, oropharynx clear without exudates. Moist mucous membranes. NECK: Normal range of motion, supple, no nuchal rigidity LUNGS: Breath sounds equal, clear to auscultation bilaterally. No wheezes, and no crackles. HEART: Regular rate and rhythm, normal S1 and S2 without murmur, rub or gallop. ABDOMEN: Soft, nontender. No guarding, no rebound. No masses palpable. EXTREMITIES: L. foot, ankle and lower leg 3+ pitting edema, edema to the calf. Left venous stasis changes, warm foot, 2+ pulse, and sensation intact. Normal range of motion. NEUROLOGICAL: Awake and alert, answering all questions. Normal speech. Cranial nerves II through XII grossly intact. No focal neurological deficits. SKIN: Warm, Dry, normal turgor, no rashes or lesions noted. - Medical Decision Making 10/11/18 19:07 Documentation prepared by Elva Tran, acting as medical billing instructor for Ashlyn Starkey MD. <Elva Tran - Last Filed: 10/11/18 19:06> - Medical Decision Making 10/11/18 20:06 Pt was signed out to me from the previous attending; we were awaiting her duplex ultrasound findings. Pt's DVT study shows no DVT. She is stable to return to [facility] [place]. We recommend rest elevation and compression stockings. 03/29/19 20:07 Pt eloped from our ER. She told the nurses on arrival to the ER that she was going to leave [facility] and had no intention to return. Pt is stable to walk out. And there is no reason to call her back. <Kelly Gooden - Last Filed: 10/11/18 20:06> - Resident Resident Name: Seth Quach - ED Attending Attestation I have performed the following: I have examined & evaluated the patient, The case was reviewed & discussed with the resident, I agree w/resident's findings & plan, Exceptions are as noted - Medical Decision Making 48 yo F who presents to the ER with a complaint of leg pain and swelling Pt concerned because of a prior h/o dvt No trauma to the leg Ambulatory with a steady gait Pt sent from [facility] for duplex Pt could not initially be found for Ultrasound Pt located and brought to [facility] Pt signed out to Dr Gooden <Ashlyn Starkey - Last Filed: 10/12/18 16:45>
--- NOTE | 2018-10-11 18:07 | PDOC ---
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 She's able to walk but the pain is not getting better. 10/11/18 18:16 Denies shortness of breath, recent travel, recent surgeries, recent period of immobilization. Denies IV drug use. Past History - Past Medical History Allergies/Adverse Reactions: Allergies Allergy/AdvReac Type Severity Reaction Status Date / Time ondansetron [From Zofran] AdvReac Severe Verified 10/02/18 19:59 Home Medications: Ambulatory Orders Pregabalin [Lyrica] 100 mg PO TID 10/02/16 traZODone HCL [Desyrel -] 100 mg PO HS 02/13/18 Amlodipine Besylate 10 mg PO DAILY #30 tablet 08/18/18 Apixaban [Eliquis] 2.5 mg PO BID #60 tablet 08/18/18 Bacitracin - [Bacitracin Topical Ointment -] 1 applic TP DAILY #1 tube 08/18/18 Labetalol HCl [Normodyne -] 400 mg PO BID #120 tablet 08/18/18 Sitagliptin Phosphate [Januvia] 100 mg PO DAILY #30 tablet 08/18/18 Escitalopram Oxalate [Lexapro -] 10 mg PO DAILY #30 tablet 09/23/18 Quetiapine Fumarate [Seroquel -] 50 mg PO BID #30 tablet 09/23/18 Buprenorphine/Naloxone [Suboxone 2Mg/0.5MG Sl Film -] 1 combo SL DAILY #7 packet MDD 1 10/11/18 Anemia: No Asthma: No Cancer: No Cardiac Disorders: Yes CVA: No COPD: No CHF: No DVT: Yes Dementia: No Diabetes: Yes Dialysis: No ([facility] 2016.) GI Disorders: No Disorders: No HTN: Yes Hypercholesterolemia: No Kidney Stones: No Liver Disease: No Psychiatric Problems: Yes (anxiety depression) Seizures: Yes (related to drugs 2months ago) Thyroid Disease: No - Surgical History Abdominal Surgery: Yes Appendectomy: No Cardiac Surgery: No Cholecystectomy: Yes (2003) Lung Surgery: No Neurologic Surgery: No Orthopedic Surgery: No - Reproductive History PID: No - Immunization History Td Vaccination: Yes Immunization Up to Date: Yes - Suicide/Smoking/Psychosocial Hx Smoking Status: No Smoking History: Former smoker Have you smoked in the past 12 months: No Number of Cigarettes Smoked Daily: 5 Cigars Per Day: 0 Information on smoking cessation initiated: No 'Breaking Loose' booklet given: 09/26/18 Hx Alcohol Use: No Drug/Substance Use Hx: Yes Substance Use Type: Alcohol, Cocaine, Heroin, Opiates, Tranquilizers Hx Substance Use Treatment: Yes Review of Systems - Review of Systems Able to Perform ROS?: Yes Is the patient limited Algerian proficient: No Constitutional: No: Symptoms Reported HEENTM: No: Symptoms Reported Cardiac (ROS): No: Symptoms Reported *Physical Exam - Vital Signs Last Vital Signs Temp Pulse Resp BP Pulse Ox 98.4 F 88 18 112/68 95 10/11/18 16:24 10/11/18 16:24 10/11/18 16:24 10/11/18 16:24 10/11/18 16:24 - Physical Exam General Appearance: Yes: Obese. No: Apparent Distress HEENT: positive: EOMI, KENNA, Normal ENT Inspection Respiratory/Chest: positive: Lungs Clear, Normal Breath Sounds. negative: Chest Tender, Respiratory Distress Cardiovascular: positive: Regular Rhythm, Regular Rate, S1, S2 Gastrointestinal/Abdominal: positive: Normal Bowel Sounds, Flat, Soft. negative : Tender Musculoskeletal: positive: Normal Inspection. negative: CVA Tenderness Extremity: positive: Normal Capillary Refill, Other (swollen left ankle tender on palpation) Integumentary: positive: Normal Color, Dry, Warm Neurologic: positive: Fully Oriented, Alert, Normal Mood/Affect, Normal Response , Motor Strength 5/5 ED Treatment Course - LABORATORY CBC & Chemistry Diagram: 10/11/18 18:20 10/11/18 18:20 - RADIOLOGY Radiology Studies Ordered: Category Date Time Status DUPLEX VASCUL US-1 LEG [US] Stat Ultrasound 10/11/18 17:31 Ordered Medical Decision Making - Medical Decision Making 10/11/18 20:03 Suspicion for repeat DVT despite patient being on Eliquis. Will send labs and venous duplex. Negative. Patient able o ambulate. Possible strain. Will send home with aircast. *DC/Admit/Observation/Transfer Diagnosis at time of Disposition: Ankle swelling - Discharge Dispostion Disposition: HOME Condition at time of disposition: Improved Decision to Admit order: No - Referrals Referrals: Doreen Kahn MD [Primary Care Provider] - - Patient Instructions Additional Instructions: Come Back to the emergency department for any new, worsening or concerning symptoms. - Post Discharge Activity
[2018-10-11 18:48] LABS: HEMATOCRIT 32.2 % (32.4-45.2); HEMOGLOBIN 10.6 GM/dL (10.7-15.3); LYMPH % 25.7 % (8-40); MCH 29.8 pg (25.7-33.7); MCHC 32.9 g/dl (32.0-36.0); MEAN CELL VOLUME 90.5 fl (80-96); MEAN PLT VOLUME 8.8 fl (7.5-11.1); MONO % 7.8 % (3.8-10.2); NEUT % 61.5 % (42.8-82.8); PLATELET COUNT 293 K/MM3 (134-434); RBC 3.56 M/mm3 (3.60-5.2); RDW 13.9 % (11.6-15.6); WHITE BLOOD COUNT 8.6 K/mm3 (4.0-10.0)
[2018-10-11 19:10] LABS: INR 1.03 (0.83-1.09); PROTHROMBIN TIME (PATIENT) 12.1 SEC (9.7-13.0)
[2018-10-11 19:16] LABS: ALBUMIN 3.7 g/dl (3.4-5.0); ALK PHOS 75 U/L (45-117); ANION GAP 10 MMOL/L (8-16); BILIRUBIN,TOTAL 0.2 mg/dL (0.2-1); BLOOD UREA NITROGEN 21 mg/dL (7-18); CALCIUM 8.5 mg/dL (8.5-10.1); CHLORIDE 108 mmol/L (98-107); CO2 24 mmol/L (21-32); CREATININE 0.7 mg/dL (0.55-1.3); GLUCOSE,RANDOM 122 mg/dL (74-106); SGOT/AST 17 U/L (15-37); SGPT/ALT 38 U/L (13-61); SODIUM 141 mmol/L (136-145); TOT PROT 6.5 g/dl (6.4-8.2)
== END 2018-10-11 20:48 | disposition left against medical advice (07) ==
LOC: JER 16:20
DX: M25.472 Effusion, left ankle (principal); I10 Essential (primary) hypertension; E11.9 Type 2 diabetes mellitus without complications; N28.89 Other specified disorders of kidney and ureter; F41.8 Other specified anxiety disorders; F32.9 Major depressive disorder, single episode, unspecified; Z86.711 Personal history of pulmonary embolism; Z86.718 Personal history of other venous thrombosis and embolism; Z79.01 Long term (current) use of anticoagulants; Z95.828 Presence of other vascular implants and grafts; F19.10 Other psychoactive substance abuse, uncomplicated
CPT/HCPCS: 36415; 80053; 85025; 85610; 85730; 86850; 86900; 86901; 93971-TC; 99282-25

== ENCOUNTER 2018-12-11 19:20 | Emergency (ER) | payer OTHER | END 2018-12-12 03:48 | disposition home or self-care (01) | LOC: JER 12-12 03:48 ==

== ENCOUNTER 2019-07-06 21:29 | Emergency (ER) | payer OTHER ==
[2019-07-06 21:57] VITALS: TEMP 98.6; BMI 46.5
--- NOTE | 2019-07-06 23:08 | PDOC ---
History of Present Illness - General Chief Complaint: Chest Pain Stated Complaint: WITHDRAWLS Time Seen by Provider: 07/06/19 23:07 History Source: Patient Exam Limitations: No Limitations - History of Present Illness Initial Comments: 07/06/19 23:09 PCP: Dr. Ordaz Wireless Telegrapher: Dr. Pace Urologist: Dr. Hernandez HPI: 49 yo F with PMH HTN, DM2, diabetic neuropathy, CHFpEF (55-60%, nl LV Ded 2018), morbid obesity, PSA (cannabis, heroin, nicotine), ANASTASIA requiring HD, diabetic foot wounds, s/p cholecystectomy presenting with nausea, vomiting, diarrhea for 1 day. Patient reports that since this morning she has had over 5 episodes of NBNB emesis and over 5 episodes of diarrhea without blood or dark color. Also endorses weakness, body aches, subjective fever, chills, and intermittent cough. Reports sharp chest pain at home for an hour, since resolved spontaneously. Concerned it may be diverticulitis because of cookies she ate with seeds or withdrawal symptoms from vivitrol which she has not received in 2 weeks. Also notes that she is hypertensive (reports compliance with her home lisinopril), but denies any RO, dizziness, or visual disturbances. No active chest pain at the current time, no SOB or sweats at all. Actively vomits during interview. All: Zofran -> "gives me the jitters" Meds: per chart PMH: as above PSH: as above SHx: PSA as above Past History - Travel Traveled outside of the country in the last 30 days: No Close contact w/someone who was outside of country & ill: No - Past Medical History Allergies/Adverse Reactions: Allergies Allergy/AdvReac Type Severity Reaction Status Date / Time ondansetron [From Zofran] AdvReac Severe Verified 07/06/19 21:57 Home Medications: Ambulatory Orders Pregabalin [Lyrica] 100 mg PO TID 10/02/16 traZODone HCL [Desyrel -] 100 mg PO HS 02/13/18 Amlodipine Besylate 10 mg PO DAILY #30 tablet 08/18/18 Apixaban [Eliquis] 2.5 mg PO BID #60 tablet 08/18/18 Bacitracin - [Bacitracin Topical Ointment -] 1 applic TP DAILY #1 tube 08/18/18 Labetalol HCl [Normodyne -] 400 mg PO BID #120 tablet 08/18/18 Sitagliptin Phosphate [Januvia] 100 mg PO DAILY #30 tablet 08/18/18 Escitalopram Oxalate [Lexapro -] 10 mg PO DAILY #30 tablet 09/23/18 Quetiapine Fumarate [Seroquel -] 50 mg PO BID #30 tablet 09/23/18 Buprenorphine/Naloxone [Suboxone 2Mg/0.5MG Sl Film -] 1 combo SL DAILY #7 packet MDD 1 10/14/18 Nitrofurantoin Macrocrystal [Nitrofurantoin] 100 mg PO BID 5 Days #10 capsule Anemia: No Asthma: No Cancer: No Cardiac Disorders: Yes CVA: No COPD: No CHF: No DVT: Yes Dementia: No Diabetes: Yes Dialysis: No ([facility] 2016.) GI Disorders: No Disorders: No HTN: Yes Hypercholesterolemia: No Kidney Stones: No Liver Disease: No Psychiatric Problems: Yes (anxiety depression) Seizures: Yes (related to drugs 2months ago) Thyroid Disease: No - Surgical History Abdominal Surgery: Yes Appendectomy: No Cardiac Surgery: No Cholecystectomy: Yes (2003) Lung Surgery: No Neurologic Surgery: No Orthopedic Surgery: No - Reproductive History PID: No - Immunization History Td Vaccination: Yes Immunization Up to Date: Yes - Psycho Social/Smoking Cessation Hx Smoking Status: No Smoking History: Never smoked Have you smoked in the past 12 months: No Number of Cigarettes Smoked Daily: 5 Cigars Per Day: 0 Information on smoking cessation initiated: No 'Breaking Loose' booklet given: 09/26/18 Hx Alcohol Use: No Drug/Substance Use Hx: No Substance Use Type: Alcohol, Cocaine, Heroin, Opiates, Tranquilizers Hx Substance Use Treatment: Yes Review of Systems - Review of Systems Able to Perform ROS?: Yes Is the patient limited Yakut proficient: Yes Constitutional: Yes: Chills, Fever, Weakness HEENTM: No: Recent change in vision, Nose Pain, Nose Congestion, Throat Pain Respiratory: Yes: Cough. No: Orthopnea, Shortness of Breath, Wheezing Cardiac (ROS): Yes: Chest Pain (earlier, resolved). No: Edema, Irregular Heart Rate, Palpitations, Syncope ABD/GI: Yes: Diarrhea, Nausea, Vomiting. No: Blood Streaked Bowels, Constipated , Rectal Bleeding : No: Burning, Dysuria, Discharge, Incontinence, Urgency Integumentary: No: Bruising, Rash Neurological: Yes: Weakness. No: Headache, Numbness, Tingling Psychiatric: No: Stressors, Emotional Problems Endocrine: No: Increased Thirst, Increased Urine Hematologic/Lymphatic: No: Anemia, Blood Clots All Other Systems: Reviewed and Negative *Physical Exam - Vital Signs Last Vital Signs Temp Pulse Resp BP Pulse Ox 98.6 F 106 H 17 192/118 H 100 07/06/19 21:53 07/06/19 21:53 07/06/19 21:53 07/06/19 21:53 07/06/19 21:53 - Physical Exam 07/07/19 00:09 Hypertensive, tachycardic, afebrile Obese woman, no acute distress, sitting in hospital bed comfortably, smells of marijuana NCAT, MMM, EOMI, trachea midline, non-injected, no rhinorrhea RRR, nl s1s2, no murmur appreciated CTABL, normal WOB, no wheezes / rales / rhonchi Obese, TTP in epigastrium, nondistended, soft WWP, no clubbing / cyanosis / edema 2+ radial and PT pulses CN grossly intact, MAEE, normal sensation throughout Heart Score/ECG Review - History History: Slightly suspicious - Electrocardiogram EKG: Normal - Age Age: 45-65 - Risk Factors Risk Factors Heart Score: Yes Hx Hypertension, Yes Smoking History, Yes Hx Obesity Based on the list above the patient has:: >/=3 risk factors or Hx atherosclerotic disease - Troponin Troponin: </= normal limit - Score Heart Score - Total: 3 ED Treatment Course - LABORATORY CBC & Chemistry Diagram: 07/07/19 00:00 07/07/19 00:00 Medical Decision Making - Medical Decision Making 07/07/19 00:05 49 yo F with PMH HTN, DM2, diabetic neuropathy, CHFpEF (55-60%, nl LV Ded 2018) , morbid obesity, PSA (cannabis, heroin, nicotine), ANASTASIA requiring HD, diabetic foot wounds, s/p cholecystectomy presenting with nausea, vomiting, diarrhea for 1 day, also reporting chest pain earlier today. Symptoms consistent with viral syndrome - flu vs GI virus, will obtain EKG, CXR, cardiac labs given reports CP earlier - atypical, non-anginal, low suspicion for cardiac event. HEART Score 3 for comorbidities. - CBC, CMP, Cardiac Profile, UTox, Lipase, Preg - EKG, CXR - Reglan, Benadryl for nausea/vomiting - Rapid influenza testing 07/07/19 00:15 - Patient reports feeling better immediately after Reglan - IV infiltrated, will replace as necessary pending labs 07/07/19 01:03 - Negative - Leukocytosis to 12.5 - CMP wnl - Lipase 191 - Troponin negative - EKG tachycardic to 107, NSR, normal axis, normal intervals, no ischemic changes - CXR without effusion, infiltrate, pneumothorax. Normal mediastinum and cardiac contours - Influenza Rapid pending 07/07/19 01:37 - Flu negative - BP 160s/100s, home labetalol given Discharge - Discharge Information Problems reviewed: Yes Clinical Impression/Diagnosis: Viral gastritis Condition: Improved Disposition: HOME - Admission No - Follow up/Referral - Patient Discharge Instructions Patient Printed Discharge Instructions: DI for Viral Gastroenteritis -- Adult Additional Instructions: You were seen and evaluated in the ED. Thank you for coming in. Your workup was consistent with a viral syndrome. Please continue to drink water, rest, and take medications such as tylenol for fever and motrin for bodyaches as directed on the package. As this appears to be a viral syndrome, there would be no benefit from antibiotics. Please follow up with your primary care doctor in the next 2-3 days if your symptoms persist. They should resolve spontaneously. Return to the ED for any new or concerning symptoms including but not limited to : chest pain, nausea and vomiting that prevents you from taking medication or water by mouth, persistent fever that doesn't respond to tylenol, or abdominal pain that does not respond to pain medication. - Post Discharge Activity
--- NOTE | 2019-07-06 23:25 | PDOC ---
Documentation entered by Lobito Prado SCRIBE, acting as scribe for Francesca Chaves MD. Francesca Chaves MD: This documentation has been prepared by the Johan cabrera Daniel, SCRIBE, under my direction and personally reviewed by me in its entirety. I confirm that the documentation accurately reflects all work, treatment, procedures, and medical decision making performed by me. Attending Attestation - Resident Resident Name: Ricky Perez - ED Attending Attestation I have performed the following: I have examined & evaluated the patient, The case was reviewed & discussed with the resident, I agree w/resident's findings & plan, Exceptions are as noted - HPI HPI: 07/06/19 23:30 The patient is a 49 year old female with a past medical history of HTN, diabetes , diabetic neuropathy, CHF, obesity, polysubstance abuse (marijuana, heroin, nicotine), and ANASTASIA here today for evaluation of nausea, vomiting, and body aches. The patient reports that since this morning she has had nausea, vomiting , diarrhea, general weakness, fever, chills, mid abdominal pain, and body aches. She also notes sharp chest pain that started this morning and has since resolved. Patient also notes that it has been 2 weeks since her last vivitrol injection and attributes her symptoms to it. Patient denies headache, lightheadedness. Denies shortness of breath. Allergies: ondansetron Surgical history: cholecystectomy PCP: Lobito Ordaz - Physicial Exam PE: 07/06/19 23:52 Obese, alert 49-year-old female has complaints of some epigastric pain nausea , vomiting, body aches, fever ,chills that started today Head normocephalic atraumatic Neck no nuchal rigidity Lungs no wheezing,no rales CVS [id number] Skin warm and dry Abdomen protuberant Alert and oriented x3,ambulatory 07/07/19 00:29 - Medical Decision Making 07/07/19 00:52 Chemistries are unremarkable with exception of glucose of 168 Troponins negative 07/07/19 01:29 influenza negative 07/07/19 01:39 repeat [id number] and she did not take her evening labetolol so we will give it to her now
[2019-07-06] MEDS ORDERED: METOCLOPRAMIDE HCL INJECTION 10 MG/2 ML VIAL IVPUSH ONE (23:30)
[2019-07-06] MEDS ORDERED: METOCLOPRAMIDE HCL INJECTION 10 MG/2 ML VIAL ONE (23:48)
[2019-07-07 00:16] LABS: HEMATOCRIT 47.9 % (32.4-45.2); HEMOGLOBIN 15.7 GM/dL (10.7-15.3); MCH 29.1 pg (25.7-33.7); MCHC 32.8 g/dl (32.0-36.0); MEAN CELL VOLUME 88.5 fl (80-96); MEAN PLT VOLUME 8.5 fl (7.5-11.1); PLATELET COUNT 351 K/MM3 (134-434); RBC 5.41 M/mm3 (3.60-5.2); RDW 14.2 % (11.6-15.6); WHITE BLOOD COUNT 12.5 K/mm3 (4.0-10.0)
[2019-07-07 00:44] LABS: ALBUMIN 4.1 g/dl (3.4-5.0); ALK PHOS 68 U/L (45-117); ANION GAP 11 MMOL/L (8-16); BILIRUBIN,TOTAL 0.6 mg/dL (0.2-1); BLOOD UREA NITROGEN 15.3 mg/dL (7-18); CALCIUM 9.8 mg/dL (8.5-10.1); CHLORIDE 102 mmol/L (98-107); CO2 27 mmol/L (21-32); CREATININE 0.9 mg/dL (0.55-1.3); GLUCOSE,RANDOM 168 mg/dL (74-106); LIPASE 191 U/L (73-393); POTASSIUM 3.6 mmol/L (3.5-5.1); SGOT/AST 13 U/L (15-37); SGPT/ALT 30 U/L (13-61); SODIUM 141 mmol/L (136-145); TOT PROT 7.6 g/dl (6.4-8.2)
[2019-07-07 01:25] VITALS: PULSE 107
[2019-07-07] MEDS ORDERED: LABETALOL HCL 200 MG TABLET (FP) PO ONE (01:37)
[2019-07-07 01:38] VITALS: BP 155/113
[2019-07-07] MEDS ORDERED: LABETALOL HCL 100 MG TABLET (FP) ONE (01:40)
--- NOTE | 2019-07-07 13:28 | EKG ---
Test Reason : Blood Pressure : / mmHG Vent. Rate : 104 BPM Atrial Rate : 104 BPM P-R Int : 142 ms QRS Dur : 092 ms QT Int : 362 ms P-R-T Axes : 021 051 020 degrees QTc Int : 476 ms SINUS TACHYCARDIA OTHERWISE NORMAL ECG WHEN COMPARED WITH ECG OF 02-OCT-2018 23:00, NO SIGNIFICANT CHANGE WAS FOUND Confirmed by BRETT DANGELO MD ([id number]) on 07/07/2019 1:28:02 PM Referred By: Confirmed By:BRETT DANGELO MD
--- NOTE | 2019-07-11 14:12 | EKG ---
Test Reason : Blood Pressure : / mmHG Vent. Rate : 103 BPM Atrial Rate : 103 BPM P-R Int : 136 ms QRS Dur : 094 ms QT Int : 370 ms P-R-T Axes : 023 036 035 degrees QTc Int : 484 ms SINUS TACHYCARDIA POSSIBLE LEFT ATRIAL ENLARGEMENT CANNOT RULE OUT ANTERIOR INFARCT , AGE UNDETERMINED ABNORMAL ECG WHEN COMPARED WITH ECG OF 02-OCT-2018 23:00, NO SIGNIFICANT CHANGE WAS FOUND Confirmed by SURESH LOZANO MD ([id number]) on 07/11/2019 2:11:42 PM Referred By: Confirmed By:SURESH LOZANO MD
== END 2019-07-07 01:45 | disposition home or self-care (01) ==
LOC: JER 21:29
PROC: 3E033GC Introduction of Other Therapeutic Substance into Peripheral Vein, Percutaneous Approach (ICD-10-PCS; principal; 2019-07-06)
DX: K29.70 Gastritis, unspecified, without bleeding (principal); B97.89 Other viral agents as the cause of diseases classified elsewhere; I11.0 Hypertensive heart disease with heart failure; I50.9 Heart failure, unspecified; E11.42 Type 2 diabetes mellitus with diabetic polyneuropathy; Z79.84 Long term (current) use of oral hypoglycemic drugs; F19.10 Other psychoactive substance abuse, uncomplicated; F11.10 Opioid abuse, uncomplicated; F12.10 Cannabis abuse, uncomplicated; F17.210 Nicotine dependence, cigarettes, uncomplicated; Z90.49 Acquired absence of other specified parts of digestive tract; Z88.8 Allergy status to other drugs, medicaments and biological substances
CPT/HCPCS: 36415; 71046-TC-FY; 80053; 82550; 83690; 84484; 84703; 85027; 87804; 93005; 93010; 99283-25

== ENCOUNTER 2019-07-14 21:53 | Emergency (ER) | payer OTHER ==
[2019-07-14 22:28] VITALS: TEMP 99; BMI 42.2
--- NOTE | 2019-07-14 22:28 | PDOC ---
Attending Attestation - Resident Resident Name: SpenserTammy - ED Attending Attestation I have performed the following: I have examined & evaluated the patient, The case was reviewed & discussed with the resident, I agree w/resident's findings & plan - HPI HPI: 07/15/19 01:04 see resident hpi - Physicial Exam PE: 07/15/19 01:05 agree with resident exam - Medical Decision Making 07/15/19 01:05 49-year-old female with nausea vomiting and diarrhea Patient was unable to take meds and her blood pressure was elevated on arrival IV equivalent of her p.o. labetalol dose given with successful decrease in blood pressure Patient had some relief with Reglan, will give Compazine and plan for DC with outpatient follow-up
[2019-07-14] MEDS ORDERED: FAMOTIDINE 20 MG/50 ML IVPB 20 MG/50 ML MG IVPB ONE ×2 (22:41→23:19)
[2019-07-14] MEDS ORDERED: METOCLOPRAMIDE HCL INJECTION 10 MG/2 ML VIAL IVPUSH ONE (22:42)
[2019-07-14 23:19] LABS: BASO % 0.7 % (0-2.0); EOS % 1.5 % (0-4.5); HEMATOCRIT 48.2 % (32.4-45.2); HEMOGLOBIN 15.9 GM/dL (10.7-15.3); LYMPH % 16.9 % (8-40); MCH 29.4 pg (25.7-33.7); MCHC 33.1 g/dl (32.0-36.0); MEAN CELL VOLUME 88.8 fl (80-96); MEAN PLT VOLUME 8.3 fl (7.5-11.1); MONO % 7.8 % (3.8-10.2); NEUT % 73.1 % (42.8-82.8); PLATELET COUNT 303 K/MM3 (134-434); RBC 5.42 M/mm3 (3.60-5.2); RDW 14.3 % (11.6-15.6); WHITE BLOOD COUNT 10.7 K/mm3 (4.0-10.0)
[2019-07-14] MEDS ORDERED: METOCLOPRAMIDE HCL INJECTION 10 MG/2 ML VIAL ONE (23:19)
--- NOTE | 2019-07-14 23:21 | PDOC ---
History of Present Illness - General Chief Complaint: Blood Pressure Problem Stated Complaint: HYPERTENSION Time Seen by Provider: 07/14/19 22:24 - History of Present Illness Initial Comments: Traci Cobb is a 49yo woman with a PMH of HTN, DM2, diabetic neuropathy, CHFpEF (55-60%, nl LV Ded 2018), morbid obesity, PSA (cannabis, heroin, nicotine ), ANASTASAI requiring HD, diabetic foot wounds, s/p cholecystectomy who presents reporting one week of nausea, frequent vomiting, frequent diarrhea, and abdominal pain. She says that she has "not been able to keep anything down" including her medications for the past several days. Ms Cobb says that she "cannot count" the number of times she has vomiting, but she has not noticed any blood or bile. She also reports non-bloody, mucous-like diarrhea, also numerous times per day. She has not had any fever, chills, chest pain, difficulty breathing, or other associated symptoms. She denies travel, sick contacts, change in diet, any chest pain, changes in urination, vision changes, headaches, confusion, or other recent symptoms. She does endorse daily marijuana use but denies any other drug or alcohol use. Past History - Past Medical History Allergies/Adverse Reactions: Allergies Allergy/AdvReac Type Severity Reaction Status Date / Time ondansetron [From Zofran] AdvReac Severe Verified 07/06/19 21:57 Home Medications: Ambulatory Orders Pregabalin [Lyrica] 100 mg PO TID 10/02/16 traZODone HCL [Desyrel -] 100 mg PO HS 02/13/18 Amlodipine Besylate 10 mg PO DAILY #30 tablet 08/18/18 Apixaban [Eliquis] 2.5 mg PO BID #60 tablet 08/18/18 Bacitracin - [Bacitracin Topical Ointment -] 1 applic TP DAILY #1 tube 08/18/18 Labetalol HCl [Normodyne -] 400 mg PO BID #120 tablet 08/18/18 Sitagliptin Phosphate [Januvia] 100 mg PO DAILY #30 tablet 08/18/18 Escitalopram Oxalate [Lexapro -] 10 mg PO DAILY #30 tablet 09/23/18 Quetiapine Fumarate [Seroquel -] 50 mg PO BID #30 tablet 09/23/18 Buprenorphine/Naloxone [Suboxone 2Mg/0.5MG Sl Film -] 1 combo SL DAILY #7 packet MDD 1 10/14/18 Nitrofurantoin Macrocrystal [Nitrofurantoin] 100 mg PO BID 5 Days #10 capsule Anemia: No Asthma: No Cancer: No Cardiac Disorders: Yes CVA: No COPD: No CHF: No DVT: Yes Dementia: No Diabetes: Yes Dialysis: No ([facility] 2016.) GI Disorders: No Disorders: No HTN: Yes Hypercholesterolemia: No Kidney Stones: No Liver Disease: No Psychiatric Problems: Yes (anxiety depression) Seizures: Yes (related to drugs 2months ago) Thyroid Disease: No - Surgical History Abdominal Surgery: Yes Appendectomy: No Cardiac Surgery: No Cholecystectomy: Yes (2003) Lung Surgery: No Neurologic Surgery: No Orthopedic Surgery: No - Reproductive History PID: No - Immunization History Td Vaccination: Yes Immunization Up to Date: Yes - Psycho Social/Smoking Cessation Hx Smoking Status: No Smoking History: Current every day smoker Have you smoked in the past 12 months: Yes Number of Cigarettes Smoked Daily: 5 Cigars Per Day: 0 Information on smoking cessation initiated: No 'Breaking Loose' booklet given: 09/26/18 Hx Alcohol Use: No Drug/Substance Use Hx: Yes Substance Use Type: Alcohol, Cocaine, Heroin, Opiates, Tranquilizers Hx Substance Use Treatment: Yes Review of Systems - Review of Systems Comments:: General: No fevers, + chills, no weight or appetite change, no malaise HEENT: No changes in vision, no changes in hearing, no congestion, no sore throat CV: No chest pain, no palpitations, no LE edema Pulm: No SOB, no cough, no wheezing GI: See HPI : No frequency, no urgency, no dysuria Musc: No back pain, no joint swelling, no recent injury Skin: No rash, no lesions, no erythema Endo: No excessive thirst, no heat/cold intolerance Heme: No unusual bruising or bleeding, no swollen glands Neuro: No syncope, no numbness/tingling, no focal weakness Vasc: No claudication Psych: No recent change in mood, no SI or HI *Physical Exam - Vital Signs Last Vital Signs Temp Pulse Resp BP Pulse Ox 99.0 F 95 H 16 182/138 H 95 07/14/19 21:57 07/14/19 21:57 07/14/19 21:57 07/14/19 21:57 07/14/19 21:57 - Physical Exam General: Obese, appears stated age, in no acute distress HEENT: PERRL, EOMI, MMM, voice normal, normal neck ROM Cards: RRR, no murmur appreciated Pulm: Comfortable on room air, clear to auscultation bilaterally Abd: Soft, nondistended. Moderate epigastric and LUQ tenderness w/o rebound, guarding, or rigidity : Mild L CVA tenderness Ext: Atraumatic. No LE edema. ROM intact. WWP Skin: Normal color, no rashes or lesions Neuro: A&Ox3, CN grossly intact, normal speech, motor/sensory grossly intact and symmetric Psych: Mood appropriate to situation ED Treatment Course - LABORATORY CBC & Chemistry Diagram: 07/14/19 23:11 07/14/19 23:11 Medical Decision Making - Medical Decision Making 07/14/19 23:20 Traci Cobb is a 49yo woman with a PMH of HTN, DM2, diabetic neuropathy, CHFpEF (55-60%, nl LV Ded 2018), morbid obesity, PSA (cannabis, heroin, nicotine ), ANASTASIA requiring HD, diabetic foot wounds, s/p cholecystectomy who presents reporting one week of nausea, frequent NBNB vomiting, and mucous-like diarrhea. She was noted to be hypertensive to the 200/100's on arrival to the ED and reports that she has been unable to take her home meds due to the vomiting. - Ddx includes viral gastritis/gastroenteritis, vomiting secondary to marijuana , less likely pancreatitis - Will recheck BP as pt should have a large cuff and was checked with regular adult size, may be falsely elevated - CBC, CMP, mag, UA, lipase - Reglan, famotidine 07/14/19 23:43 - BP still 195/113 with large cuff - 10mg IV labetalol ordered as pt takes at home (200mg BID per records). Will recheck and give additional dose if needed 07/15/19 00:21 - Labs unremarkable - Will recheck vitals 07/15/19 01:03 - BP now 130/80's - Sleeping comfortably, still reporting significant nausea when wakened. No vomiting in the ED - Will give compazine - Serum preg added 07/15/19 02:33 - Lipase negative - Preg negative - Will d/c home with PMD follow up Discussed with Dr America Dueñas PGY2 Discharge - Discharge Information Problems reviewed: Yes Clinical Impression/Diagnosis: Nausea Condition: Stable Disposition: HOME - Admission No - Follow up/Referral Referrals: Lobito Ordaz MD [Primary Care Provider] - - Patient Discharge Instructions Patient Printed Discharge Instructions: DI for Nausea -- Adult Additional Instructions: Discharge Instructions: You were seen in the emergency department for nausea and vomiting. Your blood tests and EKG were all normal. You did not have any episodes of vomiting while in the ED. Home Care: - Continue to take all of your regular home medications as prescribed - You were prescribed a nausea medication that you may take at home. Please take this as prescribed when needed for nausea - Make an appointment to see your regular doctor within the next 2-3 days if your symptoms continue - Seek immediate medical care for worsening symptoms, chest pain, difficulty breathing, if you become dehydrated, or you have any other medical emergency. - Post Discharge Activity
[2019-07-14] MEDS ORDERED: LABETALOL HCL 5 MG/1 ML (100MG/20 ML VIAL) IVPUSH ONE (23:44)
[2019-07-14 23:51] LABS: ALBUMIN 4.2 g/dl (3.4-5.0); BILIRUBIN,TOTAL 0.8 mg/dL (0.2-1); BLOOD UREA NITROGEN 13.4 mg/dL (7-18); CALCIUM 9.6 mg/dL (8.5-10.1); CREATININE 0.8 mg/dL (0.55-1.3); MAGNESIUM 2.2 mg/dL (1.8-2.4); POTASSIUM 3.9 mmol/L (3.5-5.1); TOT PROT 7.6 g/dl (6.4-8.2)
[2019-07-14] MEDS ORDERED: LABETALOL HCL 5 MG/1 ML (200MG/40ML VIAL) IVPB ONE (23:56)
[2019-07-15] MEDS ORDERED: PROCHLORPERAZINE MALEATE 5 MG TABLET PO ONE (01:03)
[2019-07-15] MEDS ORDERED: PROCHLORPERAZINE MALEATE 5 MG TABLET ONE (01:33)
[2019-07-15 02:08] VITALS: BP 160/108; PULSE 94
--- NOTE | 2019-07-15 10:28 | EKG ---
Test Reason : Blood Pressure : / mmHG Vent. Rate : 093 BPM Atrial Rate : 093 BPM P-R Int : 138 ms QRS Dur : 094 ms QT Int : 376 ms P-R-T Axes : 024 080 043 degrees QTc Int : 467 ms NORMAL SINUS RHYTHM NORMAL ECG WHEN COMPARED WITH ECG OF 06-JUL-2019 23:32, NO SIGNIFICANT CHANGE WAS FOUND Confirmed by MD Ross Edward ([id number]) on 07/15/2019 10:27:44 AM Referred By: Confirmed By:Radu Ross MD
== END 2019-07-15 03:18 | disposition home or self-care (01) ==
LOC: JER 21:53
PROC: 3E033GC Introduction of Other Therapeutic Substance into Peripheral Vein, Percutaneous Approach (ICD-10-PCS; principal; 2019-07-14)
PROC: 3E033GC Introduction of Other Therapeutic Substance into Peripheral Vein, Percutaneous Approach (ICD-10-PCS; 2019-07-14)
PROC: 3E033GC Introduction of Other Therapeutic Substance into Peripheral Vein, Percutaneous Approach (ICD-10-PCS; 2019-07-14)
DX: I11.0 Hypertensive heart disease with heart failure (principal); I50.9 Heart failure, unspecified; E11.42 Type 2 diabetes mellitus with diabetic polyneuropathy; Z79.84 Long term (current) use of oral hypoglycemic drugs; G40.509 Epileptic seizures related to external causes, not intractable, without status epilepticus; F41.8 Other specified anxiety disorders; F32.9 Major depressive disorder, single episode, unspecified; E66.01 Morbid (severe) obesity due to excess calories; F19.10 Other psychoactive substance abuse, uncomplicated; Z68.41 Body mass index [BMI] 40.0-44.9, adult; F11.10 Opioid abuse, uncomplicated; F10.10 Alcohol abuse, uncomplicated; F14.10 Cocaine abuse, uncomplicated; F13.10 Sedative, hypnotic or anxiolytic abuse, uncomplicated; Z90.49 Acquired absence of other specified parts of digestive tract; Z88.8 Allergy status to other drugs, medicaments and biological substances
CPT/HCPCS: 36415; 80053; 82550; 83690; 83735; 84484; 84703; 85025; 87086; 87186; 93005; 93010; 96365; 96375; 99284-25

== ENCOUNTER 2019-09-06 18:07 | Emergency (ER) | payer OTHER ==
[2019-09-06 18:30] VITALS: TEMP 98.5; BMI 41.5
--- NOTE | 2019-09-06 19:09 | PDOC ---
*Physical Exam - Vital Signs Last Vital Signs Temp Pulse Resp BP Pulse Ox 98.5 F 99 H 22 H 138/104 H 93 L 09/06/19 18:26 09/06/19 18:26 09/06/19 18:26 09/06/19 18:26 09/06/19 18:26 ED Treatment Course - LABORATORY CBC & Chemistry Diagram: 09/06/19 20:20 09/06/19 20:20 Medical Decision Making - Medical Decision Making 09/06/19 19:08 Patient seen by the advanced practice provider under my supervision. Ancillary testing reviewed as necessary. I agree with plan as outlined by the advanced practice provider. Discharge - Discharge Information Problems reviewed: Yes Clinical Impression/Diagnosis: Right flank pain Condition: Stable Disposition: HOME - Follow up/Referral Referrals: Lobito Ordaz MD [Primary Care Provider] - 2 Days - Patient Discharge Instructions Patient Printed Discharge Instructions: DI for Flank Pain Additional Instructions: Thank you for choosing [facility]. It was a pleasure taking care of you. Your CT scan showed 3.5 cm right ovarian cyst and 2.0 cm left adrenal nodule The rest of your imaging was unremarkable Follow-up with your doctor in 2 days Return to the Emergency Department if your symptoms worsen or persist or have other concerning symptoms. - Post Discharge Activity
[2019-09-06] MEDS ORDERED: morphine CARPU-JECT 4 MG/1 ML DISP.SYRIN IVPUSH ONE (19:12)
[2019-09-06] MEDS ORDERED: SODIUM CHLORIDE 1,000 ML IV STA (19:12)
[2019-09-06] MEDS ORDERED: METOCLOPRAMIDE HCL INJECTION 10 MG/2 ML VIAL IVPUSH ONE (19:13)
[2019-09-06] MEDS ORDERED: METOCLOPRAMIDE HCL INJECTION 10 MG/2 ML VIAL ONE (19:31)
[2019-09-06] MEDS ORDERED: morphine SULFATE 4 MG/ML VIAL ONE (19:31)
[2019-09-06] MEDS ORDERED: diphenhydrAMINE HCL 25 MG CAPSULE (FP) PO ONE ×2 (20:25→20:29)
[2019-09-06 20:26] VITALS: BP 133/101; PULSE 98
[2019-09-06 20:31] LABS: HEMATOCRIT 48.1 % (32.4-45.2); HEMOGLOBIN 16.2 GM/dL (10.7-15.3); LYMPH % 28.8 % (8-40); MCH 30.1 pg (25.7-33.7); MCHC 33.7 g/dl (32.0-36.0); MEAN CELL VOLUME 89.3 fl (80-96); MEAN PLT VOLUME 8.9 fl (7.5-11.1); MONO % 7.3 % (3.8-10.2); NEUT % 60.9 % (42.8-82.8); PLATELET COUNT 309 K/MM3 (134-434); RBC 5.38 M/mm3 (3.60-5.2); RDW 13.7 % (11.6-15.6)
--- NOTE | 2019-09-06 21:00 | PDOC ---
History of Present Illness - General Chief Complaint: Back Pain Stated Complaint: KIDNEY PAIN Time Seen by Provider: 09/06/19 19:03 History Source: Patient Exam Limitations: No Limitations Past History - Past Medical History Allergies/Adverse Reactions: Allergies Allergy/AdvReac Type Severity Reaction Status Date / Time ondansetron [From Zofran] AdvReac Severe Verified 07/06/19 21:57 Home Medications: Ambulatory Orders Pregabalin [Lyrica] 100 mg PO TID 10/02/16 traZODone HCL [Desyrel -] 100 mg PO HS 02/13/18 Amlodipine Besylate 10 mg PO DAILY #30 tablet 08/18/18 Apixaban [Eliquis] 2.5 mg PO BID #60 tablet 08/18/18 Labetalol HCl [Normodyne -] 400 mg PO BID #120 tablet 08/18/18 Sitagliptin Phosphate [Januvia] 100 mg PO DAILY #30 tablet 08/18/18 Escitalopram Oxalate [Lexapro -] 10 mg PO DAILY #30 tablet 09/23/18 Quetiapine Fumarate [Seroquel -] 50 mg PO BID #30 tablet 09/23/18 Buprenorphine/Naloxone [Suboxone 2Mg/0.5MG Sl Film -] 1 combo SL DAILY #7 packet MDD 1 10/14/18 Nitrofurantoin Macrocrystal [Nitrofurantoin] 100 mg PO BID 5 Days #10 capsule Anemia: No Asthma: No Cancer: No Cardiac Disorders: Yes CVA: No COPD: No CHF: No DVT: Yes Dementia: No Diabetes: Yes Dialysis: No ([facility] 2016.) GI Disorders: No Disorders: No HTN: Yes Hypercholesterolemia: No Kidney Stones: No Liver Disease: No Psychiatric Problems: Yes (anxiety depression) Seizures: Yes (related to drugs 2months ago) Thyroid Disease: No - Surgical History Abdominal Surgery: Yes Appendectomy: No Cardiac Surgery: No Cholecystectomy: Yes (2003) Lung Surgery: No Neurologic Surgery: No Orthopedic Surgery: No - Reproductive History PID: No - Immunization History Td Vaccination: Yes Immunization Up to Date: Yes - Psycho Social/Smoking Cessation Hx Smoking Status: No Smoking History: Never smoked Have you smoked in the past 12 months: Yes Number of Cigarettes Smoked Daily: 5 Cigars Per Day: 0 'Breaking Loose' booklet given: 09/26/18 Hx Alcohol Use: No Drug/Substance Use Hx: Yes (MARIJUANA) Substance Use Type: Alcohol, Cocaine, Heroin, Opiates, Tranquilizers Hx Substance Use Treatment: Yes *Physical Exam - Vital Signs Last Vital Signs Temp Pulse Resp BP Pulse Ox 98.5 F 98 H 22 H 133/101 H 93 L 09/06/19 18:26 09/06/19 20:20 09/06/19 18:26 09/06/19 20:20 09/06/19 18:26 - Physical Exam General Appearance: No: Apparent Distress Respiratory/Chest: positive: Lungs Clear, Normal Breath Sounds. negative: Respiratory Distress Cardiovascular: positive: Regular Rhythm, Regular Rate, S1, S2. negative: Murmur Gastrointestinal/Abdominal: positive: Normal Bowel Sounds, Soft. negative: Tender, Distended, Guarding, Rebound Musculoskeletal: positive: CVA Tenderness (R) (mild) Neurologic: positive: Alert ED Treatment Course - LABORATORY CBC & Chemistry Diagram: 09/06/19 20:20 09/06/19 20:20 - ADDITIONAL ORDERS Additional order review: 09/06/19 20:20 RBC 5.38 H MCV 89.3 MCHC 33.7 RDW 13.7 MPV 8.9 Neutrophils % 60.9 Lymphocytes % 28.8 D Monocytes % 7.3 Eosinophils % 2.0 Basophils % 1.0 - RADIOLOGY Radiology Studies Ordered: Category Date Time Status SPIRAL- RENAL-STONE CT [CT] Stat CT Scan 09/06/19 19:13 Ordered - Medications Given in the ED: ED Medications Discontinued Medications Generic Name Dose Route Start Last Admin Trade Name Freq PRN Reason Stop Dose Admin Diphenhydramine HCl 50 mg 09/06/19 20:25 09/06/19 20:30 Benadryl - PO 09/06/19 20:26 50 mg ONCE ONE Administration Sodium Chloride 1,000 mls @ 1,000 mls/hr 09/06/19 19:12 09/06/19 20:24 Normal Saline - IV 09/06/19 20:11 1,000 mls/hr ASDIR STA Administration Metoclopramide HCl 10 mg 09/06/19 19:13 09/06/19 20:24 Reglan Injection - IVPUSH 09/06/19 19:14 10 mg ONCE ONE Administration Morphine Sulfate 4 mg 09/06/19 19:12 09/06/19 20:24 Morphine Injection - IVPUSH 09/06/19 19:13 4 mg ONCE ONE Administration Medical Decision Making - Medical Decision Making 49-year-old female history of hypertension, diabetes, PE s/p IVC filter placed 3 years ago (on Eliquis), substance abuse (marijuana and heroin; stopped use of heroin 1 year ago), kidney failure due to heroin overdose in the past requiring HD (1 year ago), status post cholecystectomy presents with R flank pain from yesterday along with nausea. Mention she has had kidney stones in the past and this feels similar to kidney stones. Also mentions having some mucousy diarrhea. Denies fever, sob, cp, abd pain, vomiting, dysuria, hematuria. Patient took 1000 mg of Tylenol prior to coming to ED. R/O kidney stones Plan: Labs, spiral CT, IVF, pain control, reassess 09/06/19 20:[address] A/P: IMPRESSION: 1. No evidence of hydronephrosis or nephrolithiasis. 2. Incidental note is made of a 3.5 cm right ovarian cyst. 3. No evidence of small bowel obstruction or mass. Normal appendix is identified. 4. Incidental note is made of a 2.0 cm left adrenal nodule, likely a lipid poor adenoma Patient notified of results stable for dc 09/06/19 21:59 Discharge - Discharge Information Problems reviewed: Yes Clinical Impression/Diagnosis: Right flank pain Condition: Stable Disposition: HOME - Admission No - Additional Discharge Information Prescription Drug Monitoring Program (I-STOP) results: I-STOP not reviewed - Follow up/Referral Referrals: Lobito Ordaz MD [Primary Care Provider] - 2 Days - Patient Discharge Instructions Patient Printed Discharge Instructions: DI for Flank Pain Additional Instructions: Thank you for choosing [facility]. It was a pleasure taking care of you. Your CT scan showed 3.5 cm right ovarian cyst and 2.0 cm left adrenal nodule The rest of your imaging was unremarkable Follow-up with your doctor in 2 days Return to the Emergency Department if your symptoms worsen or persist or have other concerning symptoms. - Post Discharge Activity
[2019-09-06 21:02] LABS: ALBUMIN 4.1 g/dl (3.4-5.0); BILIRUBIN,TOTAL 0.7 mg/dL (0.2-1); BLOOD UREA NITROGEN 16.4 mg/dL (7-18); CALCIUM 10.1 mg/dL (8.5-10.1); CREATININE 0.9 mg/dL (0.55-1.3); POTASSIUM 3.6 mmol/L (3.5-5.1); TOT PROT 7.1 g/dl (6.4-8.2)
== END 2019-09-06 22:07 | disposition home or self-care (01) ==
LOC: JER 18:07
PROC: 3E033GC Introduction of Other Therapeutic Substance into Peripheral Vein, Percutaneous Approach (ICD-10-PCS; principal; 2019-09-06)
PROC: 3E033NZ Introduction of Analgesics, Hypnotics, Sedatives into Peripheral Vein, Percutaneous Approach (ICD-10-PCS; 2019-09-06)
DX: R10.31 Right lower quadrant pain (principal); N83.201 Unspecified ovarian cyst, right side; E27.9 Disorder of adrenal gland, unspecified; I25.10 Atherosclerotic heart disease of native coronary artery without angina pectoris; I10 Essential (primary) hypertension; E11.9 Type 2 diabetes mellitus without complications; Z79.84 Long term (current) use of oral hypoglycemic drugs; G40.509 Epileptic seizures related to external causes, not intractable, without status epilepticus; F41.9 Anxiety disorder, unspecified; F32.9 Major depressive disorder, single episode, unspecified; Z79.01 Long term (current) use of anticoagulants; Z86.711 Personal history of pulmonary embolism; Z95.828 Presence of other vascular implants and grafts; F19.10 Other psychoactive substance abuse, uncomplicated; F10.10 Alcohol abuse, uncomplicated
CPT/HCPCS: 36415; 74176-TC; 80053; 85025; 96374; 96375; 99285-25; J7030

== ENCOUNTER 2019-09-22 14:54 | Emergency (ER) | payer OTHER ==
[2019-09-22 15:27] VITALS: BP 122/89; PULSE 115; BMI 41.5
--- NOTE | 2019-09-22 15:29 | PDOC ---
Rapid Medical Evaluation Chief Complaint: Pain Time Seen by Provider: 09/22/19 15:25 Medical Evaluation: Allergies Allergy/AdvReac Type Severity Reaction Status Date / Time ondansetron [From Zofran] AdvReac Severe Verified 09/06/19 22:08 09/22/19 15:28 I have performed a brief in-person evaluation of this patient. The patient presents with a chief complaint of:abd pain w/ n/v/d. H/o diverticulitis, cdif and DM Pertinent physical exam findings:Tachy to 115, defer exam to ED provider I have ordered the following:labs The patient will proceed to the ED for further evaluation Discharge Disposition - Diagnosis Abdominal pain Qualifiers: Abdominal location: generalized Qualified Code(s): R10.84 - Generalized abdominal pain - Referrals - Patient Instructions - Post Discharge Activity
[2019-09-22 15:52] LABS: BASO % 0.6 % (0-2.0); EOS % 0.5 % (0-4.5); HEMATOCRIT 48.5 % (32.4-45.2); HEMOGLOBIN 16.9 GM/dL (10.7-15.3); LYMPH % 17.8 % (8-40); MCH 30.4 pg (25.7-33.7); MCHC 34.8 g/dl (32.0-36.0); MEAN CELL VOLUME 87.5 fl (80-96); MEAN PLT VOLUME 8.6 fl (7.5-11.1); MONO % 7.4 % (3.8-10.2); NEUT % 73.7 % (42.8-82.8); PLATELET COUNT 307 K/MM3 (134-434); RBC 5.54 M/mm3 (3.60-5.2); RDW 13.3 % (11.6-15.6); WHITE BLOOD COUNT 11.4 K/mm3 (4.0-10.0)
[2019-09-22 15:58] LABS: URINE APPEARANCE Cloudy; URINE BILIRUBIN 2+ (NEGATIVE); URINE COLOR Dark yellow; URINE GLUCOSE (UA) Negative (NEGATIVE); URINE KETONE 1+ (NEGATIVE); URINE LEUK ESTERASE Negative (NEGATIVE); URINE NITRITE Negative (NEGATIVE); URINE PROTEIN 2+ (NEGATIVE)
[2019-09-22] MEDS ORDERED: SODIUM CHLORIDE 0.9% 500 ML INFUS.BAG IV ONE (16:06)
[2019-09-22] MEDS ORDERED: ACETAMINOPHEN 1000 MG/100 ML VIAL (NON FORMULARY) IVPB ONE (16:06)
[2019-09-22] MEDS ORDERED: METOCLOPRAMIDE HCL INJECTION 10 MG/2 ML VIAL IVPB ONE (16:10)
[2019-09-22] MEDS ORDERED: METOCLOPRAMIDE HCL INJECTION 10 MG/2 ML VIAL ONE (16:24)
[2019-09-22] MEDS ORDERED: ACETAMINOPHEN INJECTION 100 ML IVPB ONE (16:24)
[2019-09-22 16:30] LABS: ALBUMIN 4.2 g/dl (3.4-5.0); BILIRUBIN,TOTAL 0.7 mg/dL (0.2-1); BLOOD UREA NITROGEN 24.2 mg/dL (7-18); CALCIUM 9.9 mg/dL (8.5-10.1); CREATININE 1.3 mg/dL (0.55-1.3); POTASSIUM 3.7 mmol/L (3.5-5.1); TOT PROT 7.6 g/dl (6.4-8.2)
[2019-09-22 17:03] LABS: EPI CELLS 6 /HPF (0-5/HPF); URINE RBC 10 /hpf (0-4); URINE WBC 2 /hpf (0-5)
[2019-09-22] MEDS ORDERED: morphine CARPU-JECT 4 MG/1 ML DISP.SYRIN IVPUSH ONE (17:04)
[2019-09-22] MEDS ORDERED: morphine SULFATE 4 MG/ML VIAL ONE (17:13)
--- NOTE | 2019-09-22 17:28 | PDOC ---
History of Present Illness - General Chief Complaint: Pain Stated Complaint: ABD PAIN Time Seen by Provider: 09/22/19 15:25 History Source: Patient Exam Limitations: No Limitations - History of Present Illness Initial Comments: 09/22/19 17:27 Pt is a 49 y/o female with history of DM, diverticulosis, and h/o c.diff who presents to the ED with complaint of vomiting and diarrhea for the last 3 days. She denies any food that could have made her sick. She denies any recent trave l. She has not taken anything for her symptoms. She denies any fevers or chills. She does admit to also having b/l cracked skin of her great toes with bruising to the area. She does see wound care doctor and states she sees [facility] 2 weeks but she has not seen them in a few weeks. She denies any pus from her feet. She does admit to having some pain to her great toes. She sees Dr. Knox of wound care. Past History - Past Medical History Allergies/Adverse Reactions: Allergies Allergy/AdvReac Type Severity Reaction Status Date / Time ondansetron [From Zofran] AdvReac Severe Verified 09/06/19 22:08 Home Medications: Ambulatory Orders Pregabalin [Lyrica] 100 mg PO TID 10/02/16 traZODone HCL [Desyrel -] 100 mg PO HS 02/13/18 Amlodipine Besylate 10 mg PO DAILY #30 tablet 08/18/18 Apixaban [Eliquis] 2.5 mg PO BID #60 tablet 08/18/18 Labetalol HCl [Normodyne -] 400 mg PO BID #120 tablet 08/18/18 Sitagliptin Phosphate [Januvia] 100 mg PO DAILY #30 tablet 08/18/18 Escitalopram Oxalate [Lexapro -] 10 mg PO DAILY #30 tablet 09/23/18 Quetiapine Fumarate [Seroquel -] 50 mg PO BID #30 tablet 09/23/18 Buprenorphine/Naloxone [Suboxone 2Mg/0.5MG Sl Film -] 1 combo SL DAILY #7 packet MDD 1 10/14/18 Nitrofurantoin Macrocrystal [Nitrofurantoin] 100 mg PO BID 5 Days #10 capsule 12/12/18 Anemia: No Asthma: No Cancer: No Cardiac Disorders: Yes CVA: No COPD: No CHF: No DVT: Yes Dementia: No Diabetes: Yes Dialysis: No ([facility] 2016.) GI Disorders: No Disorders: No HTN: Yes Hypercholesterolemia: No Kidney Stones: No Liver Disease: No Psychiatric Problems: Yes (anxiety depression) Seizures: Yes (related to drugs 2months ago) Thyroid Disease: No - Surgical History Abdominal Surgery: Yes Appendectomy: No Cardiac Surgery: No Cholecystectomy: Yes (2003) Lung Surgery: No Neurologic Surgery: No Orthopedic Surgery: No - Reproductive History PID: No - Immunization History Td Vaccination: Yes Immunization Up to Date: Yes - Psycho Social/Smoking Cessation Hx Smoking Status: No Smoking History: Never smoked Have you smoked in the past 12 months: Yes Number of Cigarettes Smoked Daily: 5 Cigars Per Day: 0 Information on smoking cessation initiated: No 'Breaking Loose' booklet given: 09/26/18 Hx Alcohol Use: No Drug/Substance Use Hx: No Substance Use Type: Alcohol, Cocaine, Heroin, Opiates, Tranquilizers Hx Substance Use Treatment: Yes Review of Systems - Review of Systems Comments:: 09/22/19 17:45 - Review of Systems Able to Perform ROS?: Yes Constitutional: No: Fever, Chills, Loss of Appetite, Night Sweats, Weakness HEENTM: No: Eye Pain, Vision changes, Ear Pain, Throat Pain, Throat Swelling, Mouth Pain, Difficulty Swallowing Respiratory: No: Cough, Shortness of Breath, Wheezing, Sputum Production Cardiac (ROS): No: Chest Pain, Chest Tightness, Palpitations, Irregular Heart Beat, Edema ABD/GI: Positive: Nausea, vomiting, diarrhea and diffuse abdominal pain : No Dysuria, No Hematuria, No Frequency, No Urgency Musculoskeletal: No: Muscle Pain, Back Pain, Joint Pain, Muscle Weakness, Neck Pain Integumentary: No: Lesions, Rash; positive: Cracked skin on bilateral great toes with ecchymosis Neurological: No: Headache, Numbness, Tingling, Weakness, Speech Difficulties *Physical Exam - Vital Signs Last Vital Signs Temp Pulse Resp BP Pulse Ox 115 H 17 122/89 100 09/22/19 15:24 09/22/19 15:24 09/22/19 15:24 09/22/19 15:24 - Physical Exam 09/22/19 17:46 - Physical Exam General Appearance: Nourished, Appropriately Dressed, No Distress HEENT: EOMI, Normal Voice, moist mucosa Neck: Supple, No Lymphadenopathy (R), No Lymphadenopathy (L), No Rigidity, No Decreased range of motion Respiratory/Chest: Lungs Clear, Normal Breath Sounds. No Respiratory Distress, No Accessory Muscle Use Cardiovascular: Regular Rhythm, Regular Rate, S1, S2 Gastrointestinal/Abdominal: Normal Bowel Sounds, Soft. No Guarding, No Rebound, No Rigidity; moderate diffuse abdominal tenderness to palpation. No rebound. No specific right lower quadrant abdominal tenderness to palpation. Negative Monreal sign. Musculoskeletal: Normal Inspection. No Decreased Range of Motion Extremity: Normal Capillary Refill, Normal Inspection Integumentary: Normal Color, Dry. No Rash; right great toe with cracked callused skin and dried blood appreciated. No tenderness to palpation. Brisk capillary refill distally. Mild ecchymosis appreciated. No foul odor or purulent drainage. Left great toe with cracked skin with out evidence of infection, ecchymosis or bleeding. 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 NML intact, Fully Oriented, Alert, Normal Mood/Affect, Normal Response ED Treatment Course - LABORATORY CBC & Chemistry Diagram: 09/22/19 15:37 09/22/19 15:37 - ADDITIONAL ORDERS Additional order review: Laboratory Results 09/22/19 09/22/19 15:37 15:37 Sodium 136 Potassium 3.7 Chloride 102 Carbon Dioxide 26 Anion Gap 9 BUN 24.2 H Creatinine 1.3 Est GFR (CKD-EPI)AfAm 56.58 Est GFR (CKD-EPI)NonAf 48.81 Random Glucose 187 H Calcium 9.9 Total Bilirubin 0.7 AST 22 ALT 38 Alkaline Phosphatase 78 Total Protein 7.6 Albumin 4.2 Lipase 124 Urine Color Dark yellow Urine Appearance Cloudy Urine pH 6.0 Ur Specific [place] >= 1.030 Urine Protein 2+ H Urine Glucose (UA) Negative Urine Ketones 1+ H Urine Blood Negative Urine Nitrite Negative Urine Bilirubin 2+ H Urine Urobilinogen 1.0 Ur Leukocyte Esterase Negative Urine WBC (Auto) 2 Urine RBC (Auto) 10 U Epithel Cells (Auto) 6 09/22/19 15:37 RBC 5.54 H MCV 87.5 MCHC 34.8 RDW 13.3 MPV 8.6 Neutrophils % 73.7 D Lymphocytes % 17.8 D Monocytes % 7.4 Eosinophils % 0.5 Basophils % 0.6 - RADIOLOGY Radiology Studies Ordered: Category Date Time Status ABDOMEN & PELVIS CT WITH CONTR [CT] Stat CT Scan 09/22/19 16:13 Ordered - Medications Given in the ED: ED Medications Discontinued Medications Generic Name Dose Route Start Last Admin Trade Name Shavon PRN Reason Stop Dose Admin Acetaminophen 1,000 mg 09/22/19 16:06 09/22/19 16:38 Ofirmev Injection - IVPB 09/22/19 16:07 1,000 mg ONCE ONE Administration Metoclopramide HCl 10 mg 09/22/19 16:10 09/22/19 16:38 Reglan Injection - IVPB 09/22/19 16:11 10 mg ONCE ONE Administration Morphine Sulfate 4 mg 09/22/19 17:04 09/22/19 17:17 Morphine Injection - IVPUSH 09/22/19 17:05 4 mg ONCE ONE Administration Sodium Chloride 1,000 ml 09/22/19 16:06 09/22/19 16:38 Normal Saline - IV 09/22/19 16:07 1,000 ml ONCE ONE Administration Medical Decision Making - Medical Decision Making 09/22/19 17:47 Assessment: Patient is a 49-year-old female with diffuse abdominal pain, nausea, vomiting and diarrhea. Plan: -Saline lock and fluids ordered -Labs ordered -CT abdomen pelvis ordered -Will reassess 09/22/19 18:56 The patient did not feel any better after getting Tylenol IV. Morphine was o rdered. She is pending a CT abdomen pelvis for further evaluation. Despite asking the patient not to eat anything, she was seen eating potato chips prior to her CT scan. The patient is endorsed to [facility] for further evaluation and treatment. The patient was stable at the time of endorsement. Discharge - Discharge Information Problems reviewed: Yes Clinical Impression/Diagnosis: Abdominal pain Qualifiers: Abdominal location: generalized Qualified Code(s): R10.84 - Generalized abdominal pain - Follow up/Referral Referrals: Lobito Ordaz MD [Primary Care Provider] - - Patient Discharge Instructions - Post Discharge Activity
[2019-09-22] MEDS ORDERED: KETOROLAC TROMETHAMINE 30 MG/1 ML VIAL IVPUSH ONE (19:39)
[2019-09-22] MEDS ORDERED: SODIUM CHLORIDE 1,000 ML IV SCH (19:45)
[2019-09-22] MEDS ORDERED: KETOROLAC TROMETHAMINE 30 MG/1 ML VIAL ONE (20:09)
--- NOTE | 2019-09-22 20:35 | PDOC ---
*Physical Exam - Vital Signs Last Vital Signs Temp Pulse Resp BP Pulse Ox 115 H 17 122/89 100 09/22/19 15:24 09/22/19 15:24 09/22/19 15:24 09/22/19 15:24 - Physical Exam General Appearance: Yes: Appropriately Dressed Respiratory/Chest: positive: Lungs Clear, Normal Breath Sounds Cardiovascular: positive: Regular Rhythm, Regular Rate Gastrointestinal/Abdominal: positive: Normal Bowel Sounds, Tender (minimal epigastric tenderness), Soft ED Treatment Course - LABORATORY CBC & Chemistry Diagram: 09/22/19 15:37 09/22/19 15:37 - ADDITIONAL ORDERS Additional order review: Laboratory Results 09/22/19 09/22/19 15:37 15:37 Sodium 136 Potassium 3.7 Chloride 102 Carbon Dioxide 26 Anion Gap 9 BUN 24.2 H Creatinine 1.3 Est GFR (CKD-EPI)AfAm 56.58 Est GFR (CKD-EPI)NonAf 48.81 Random Glucose 187 H Calcium 9.9 Total Bilirubin 0.7 AST 22 ALT 38 Alkaline Phosphatase 78 Total Protein 7.6 Albumin 4.2 Lipase 124 Urine Color Dark yellow Urine Appearance Cloudy Urine pH 6.0 Ur Specific [place] >= 1.030 Urine Protein 2+ H Urine Glucose (UA) Negative Urine Ketones 1+ H Urine Blood Negative Urine Nitrite Negative Urine Bilirubin 2+ H Urine Urobilinogen 1.0 Ur Leukocyte Esterase Negative Urine WBC (Auto) 2 Urine RBC (Auto) 10 U Epithel Cells (Auto) 6 09/22/19 15:37 RBC 5.54 H MCV 87.5 MCHC 34.8 RDW 13.3 MPV 8.6 Neutrophils % 73.7 D Lymphocytes % 17.8 D Monocytes % 7.4 Eosinophils % 0.5 Basophils % 0.6 - Medications Given in the ED: ED Medications Discontinued Medications Generic Name Dose Route Start Last Admin Trade Name Freq PRN Reason Stop Dose Admin Acetaminophen 1,000 mg 09/22/19 16:06 09/22/19 16:38 Ofirmev Injection - IVPB 09/22/19 16:07 1,000 mg ONCE ONE Administration Ketorolac Tromethamine 30 mg 09/22/19 19:39 09/22/19 20:17 Toradol Injection - IVPUSH 09/22/19 19:40 30 mg ONCE ONE Administration Metoclopramide HCl 10 mg 09/22/19 16:10 09/22/19 16:38 Reglan Injection - IVPB 09/22/19 16:11 10 mg ONCE ONE Administration Morphine Sulfate 4 mg 09/22/19 17:04 09/22/19 17:17 Morphine Injection - IVPUSH 09/22/19 17:05 4 mg ONCE ONE Administration Sodium Chloride 1,000 ml 09/22/19 16:06 09/22/19 16:38 Normal Saline - IV 09/22/19 16:07 1,000 ml ONCE ONE Administration Medical Decision Making - Medical Decision Making 09/22/19 20:31 CTAP: chronic findingsDiverticulosis without evidence of acute diverticulitis. Mild fatty liver. Status post cholecystectomy. There is mild dilatation of the proximal and mid small bowel loops. Normal-appearing terminal ileum and appendix. Right adnexal cyst 3.8 x 3.5 cm. No free air, free fluid or gross enlarged lymph nodes notified identified. Marked degenerative disc disease at level L5-S1 level. 09/22/19 20:33 Patient has no abdominal pain at this time. Patient is drinking Coca-Cola with no evidence of vomiting. Patient is well-appearing. Will give strict return precautions patient given strict return precautions. Patient verbalized understanding. 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 Will empirically cover with cephalexin. Patient is to follow-up with wound care. Patient reports that she will make an appointment tomorrow Discharge - Discharge Information Problems reviewed: Yes Clinical Impression/Diagnosis: Toe abrasion, non-infected Abdominal pain Qualifiers: Abdominal location: generalized Qualified Code(s): R10.84 - Generalized ab dominal pain Disposition: HOME - Additional Discharge Information Prescriptions: Cephalexin Monohydrate [Keflex -] 500 mg PO Q6H #30 capsule - Follow up/Referral Referrals: Lobito Ordaz MD [Primary Care Provider] - - Patient Discharge Instructions Patient Printed Discharge Instructions: Gastritis Additional Instructions: . It is very important that you drink lots of fluids. You were given a prescription for cephalexin please start taking them as soon as possible. Please follow-up with your wound clinic. Call tomorrow for an appointment. it is also important that you follow-up with gastroenterology and your primary care physician soon as possible. Return to the emergency room for any worsening symptoms - Post Discharge Activity
== END 2019-09-22 20:44 | disposition home or self-care (01) ==
LOC: JER 14:54
PROC: 3E033NZ Introduction of Analgesics, Hypnotics, Sedatives into Peripheral Vein, Percutaneous Approach (ICD-10-PCS; principal; 2019-09-22)
PROC: 3E033NZ Introduction of Analgesics, Hypnotics, Sedatives into Peripheral Vein, Percutaneous Approach (ICD-10-PCS; 2019-09-22)
PROC: 3E0333Z Introduction of Anti-inflammatory into Peripheral Vein, Percutaneous Approach (ICD-10-PCS; 2019-09-22)
PROC: 3E033GC Introduction of Other Therapeutic Substance into Peripheral Vein, Percutaneous Approach (ICD-10-PCS; 2019-09-22)
DX: R10.84 Generalized abdominal pain (principal); K57.90 Diverticulosis of intestine, part unspecified, without perforation or abscess without bleeding; I10 Essential (primary) hypertension; E11.9 Type 2 diabetes mellitus without complications; Z79.84 Long term (current) use of oral hypoglycemic drugs; F41.8 Other specified anxiety disorders; F32.9 Major depressive disorder, single episode, unspecified; G40.509 Epileptic seizures related to external causes, not intractable, without status epilepticus; Z86.19 Personal history of other infectious and parasitic diseases; E66.01 Morbid (severe) obesity due to excess calories; Z68.41 Body mass index [BMI] 40.0-44.9, adult; Z88.8 Allergy status to other drugs, medicaments and biological substances; S90.412A Abrasion, left great toe, initial encounter; S90.411A Abrasion, right great toe, initial encounter; X58.XXXA Exposure to other specified factors, initial encounter; Y93.89 Activity, other specified; Y92.89 Other specified places as the place of occurrence of the external cause; Y99.8 Other external cause status
CPT/HCPCS: 36415; 74177-TC; 80053; 81003; 83690; 85025; 96374; 96375; 99285-25; J0131; Q9967

== ENCOUNTER 2020-08-20 16:20 | Emergency (ER) | payer OTHER ==
[2020-08-20] MEDS ORDERED: DEXAMETHASONE SOD PHOSPHATE 10 MG/1 ML VIAL IVPUSH ONE (16:36)
[2020-08-20] MEDS ORDERED: ALBUTEROL SO4 HFA INHALER IH ONE (16:36)
[2020-08-20 16:40] VITALS: TEMP 97.7; BMI 46.5
[2020-08-20] MEDS ORDERED: KETOROLAC TROMETHAMINE 30 MG/1 ML VIAL ONE (17:59)
[2020-08-20] MEDS ORDERED: KETOROLAC TROMETHAMINE 30 MG/1 ML VIAL IVPUSH ONE (17:59)
[2020-08-20 18:46] LABS: EOS % 2.1 % (0-4.5); HEMATOCRIT 44.4 % (32.4-45.2); HEMOGLOBIN 14.5 GM/dL (10.7-15.3); LYMPH % 24.3 % (8-40); MCH 29.9 pg (25.7-33.7); MCHC 32.8 g/dl (32.0-36.0); MEAN CELL VOLUME 91.3 fl (80-96); MEAN PLT VOLUME 8.8 fl (7.5-11.1); MONO % 6.2 % (3.8-10.2); NEUT % 66.4 % (42.8-82.8); PLATELET COUNT 313 K/MM3 (134-434); RBC 4.86 M/mm3 (3.60-5.2); RDW 13.5 % (11.6-15.6); WHITE BLOOD COUNT 11.6 K/mm3 (4.0-10.0)
[2020-08-20 19:04] LABS: CHLORIDE 104 mmol/L (98-107); POTASSIUM 4.9 mmol/L (3.5-5.1); SODIUM 138 mmol/L (136-145)
[2020-08-20 19:07] LABS: ANION GAP 8 MMOL/L (8-16); BLOOD UREA NITROGEN 25.5 mg/dL (7-18); CO2 27 mmol/L (21-32); GLUCOSE,RANDOM 137 mg/dL (74-106)
[2020-08-20 19:10] LABS: SGOT/AST 23 U/L (15-37); SGPT/ALT 41 U/L (13-61)
[2020-08-20 19:11] LABS: BILIRUBIN,TOTAL 0.3 mg/dL (0.2-1)
[2020-08-20 19:12] LABS: TOT PROT 7.4 g/dl (6.4-8.2)
[2020-08-20 19:13] LABS: ALK PHOS 74 U/L (45-117)
[2020-08-20] MEDS ORDERED: DEXAMETHASONE SOD PHOSPHATE 10 MG/1 ML VIAL ONE (20:04)
[2020-08-20 20:05] LABS: LDH 210 U/L (84-246)
[2020-08-20 20:22] VITALS: BP 137/77; PULSE 103
== END 2020-08-20 20:56 | disposition home or self-care (01) ==
LOC: JER 16:20
PROC: 3E0F7GC Introduction of Other Therapeutic Substance into Respiratory Tract, Via Natural or Artificial Opening (ICD-10-PCS; principal; 2020-08-20)
PROC: 3E033NZ Introduction of Analgesics, Hypnotics, Sedatives into Peripheral Vein, Percutaneous Approach (ICD-10-PCS; 2020-08-20)
PROC: 3E033GC Introduction of Other Therapeutic Substance into Peripheral Vein, Percutaneous Approach (ICD-10-PCS; 2020-08-20)
DX: J11.1 Influenza due to unidentified influenza virus with other respiratory manifestations (principal)
CPT/HCPCS: 36415; 71046-TC-FY; 80053; 82550; 82728; 83615; 84484; 85025; 85379; 86140; 87804; 93005; 93010; 99285-25; C9803; J1100; U0003

== ENCOUNTER 2020-09-16 14:56 | Emergency (ER) | payer OTHER ==
[2020-09-16 15:07] VITALS: TEMP 98.7; BMI 44.9
[2020-09-16] MEDS ORDERED: ACETAMINOPHEN 500 MG TABLET (FP) PO ONE (15:46)
[2020-09-16] MEDS ORDERED: DEXAMETHASONE SOD PHOSPHATE 10 MG/1 ML VIAL IVPUSH ONE (15:46)
[2020-09-16] MEDS ORDERED: ACETAMINOPHEN 325 MG TABLET (FP) ONE (17:41)
[2020-09-16] MEDS ORDERED: DEXAMETHASONE SOD PHOSPHATE 10 MG/1 ML VIAL ONE (17:41)
[2020-09-16 17:54] LABS: VENOUS BASE EXCESS 1.9 mmol/L (-2-2); VENOUS O2 SATURATION 48.5 % (70-80); VENOUS PCO2 55.4 mmHg (38-52); VENOUS PH 7.335 (7.310-7.410)
[2020-09-16 18:27] LABS: BASO % 0.8 % (0-2.0); EOS % 9.1 % (0-4.5); HEMATOCRIT 33.3 % (32.4-45.2); HEMOGLOBIN 10.9 GM/dL (10.7-15.3); LYMPH % 15.4 % (8-40); MCHC 32.9 g/dl (32.0-36.0); MEAN CELL VOLUME 91.3 fl (80-96); MEAN PLT VOLUME 8.7 fl (7.5-11.1); MONO % 8.5 % (3.8-10.2); NEUT % 66.2 % (42.8-82.8); PLATELET COUNT 387 K/MM3 (134-434); RBC 3.64 M/mm3 (3.60-5.2); RDW 13.4 % (11.6-15.6); WHITE BLOOD COUNT 11.7 K/mm3 (4.0-10.0)
[2020-09-16 18:33] LABS: INR 1.12 (0.83-1.09); PROTHROMBIN TIME (PATIENT) 13.5 SEC (9.7-13.0)
[2020-09-16] MEDS ORDERED: AZITHROMYCIN IVPB 500 MG in DEXTROSE 5%-WATER - 250 ML IVPB ONE (18:34)
[2020-09-16] MEDS ORDERED: CEFTRIAXONE 1 GM in DEXTROSE 5%-WATER - 100 ML IVPB ONE (18:34)
[2020-09-16 18:36] LABS: ACTIVATED PTT 26.6 SECONDS (25.2-36.5)
[2020-09-16 18:49] LABS: CHLORIDE 105 mmol/L (98-107); POTASSIUM 3.9 mmol/L (3.5-5.1); SODIUM 141 mmol/L (136-145)
[2020-09-16 18:51] LABS: CALCIUM 8.9 mg/dL (8.5-10.1)
[2020-09-16 18:52] LABS: ANION GAP 7 MMOL/L (8-16); BLOOD UREA NITROGEN 14.1 mg/dL (7-18); CO2 29 mmol/L (21-32); GLUCOSE,RANDOM 209 mg/dL (74-106)
[2020-09-16 18:55] LABS: CREATININE 0.7 mg/dL (0.55-1.3); SGOT/AST 8 U/L (15-37); SGPT/ALT 23 U/L (13-61)
[2020-09-16 18:56] LABS: BILIRUBIN,TOTAL 0.5 mg/dL (0.2-1)
[2020-09-16 18:57] LABS: BILIRUBIN,DIRECT 0.2 mg/dL (0.0-0.2); TOT PROT 6.8 g/dl (6.4-8.2)
[2020-09-16 18:58] LABS: ALK PHOS 71 U/L (45-117)
[2020-09-16 19:05] LABS: ANISOCYTOSIS 1+; MACROCYTOSIS 0; PLATELET ESTIMATE NORMAL
[2020-09-16] MEDS ORDERED: AZITHROMYCIN IVPB 500 MG/250 ML BAG IVPB ONE (21:35)
[2020-09-16] MEDS ORDERED: CEFTRIAXONE 1 GM/50 ML BAG ONE (21:35)
[2020-09-16] MEDS ORDERED: KETOROLAC TROMETHAMINE 30 MG/1 ML VIAL IVPUSH ONE (21:56)
[2020-09-16] MEDS ORDERED: KETOROLAC TROMETHAMINE 15 MG/ML VIAL ONE (22:00)
[2020-09-16 23:35] VITALS: BP 151/101; PULSE 107
== END 2020-09-16 23:49 | disposition short-term general hospital (02) ==
LOC: JER 14:56
PROC: 3E03329 Introduction of Other Anti-infective into Peripheral Vein, Percutaneous Approach (ICD-10-PCS; principal; 2020-09-16)
PROC: 3E03329 Introduction of Other Anti-infective into Peripheral Vein, Percutaneous Approach (ICD-10-PCS; 2020-09-16)
PROC: 3E033GC Introduction of Other Therapeutic Substance into Peripheral Vein, Percutaneous Approach (ICD-10-PCS; 2020-09-16)
PROC: 3E0333Z Introduction of Anti-inflammatory into Peripheral Vein, Percutaneous Approach (ICD-10-PCS; 2020-09-16)
DX: R09.02 Hypoxemia (principal); S22.42XA Multiple fractures of ribs, left side, initial encounter for closed fracture; J94.2 Hemothorax
CPT/HCPCS: 36415; 71045-TC-FY; 71275-TC; 80053; 82248; 82550; 82728; 82803; 83605; 83615; 84484; 85025; 85610; 85730; 86140; 87040; 87804; 93005; 93010; 99285-25; C9803; J1100; Q9967; U0003

== ENCOUNTER 2020-11-23 18:29 | Emergency (ER) | payer OTHER ==
[2020-11-23 18:41] VITALS: BMI 48.7
[2020-11-23] MEDS ORDERED: ACETAMINOPHEN 1000 MG/100 ML VIAL (NON FORMULARY) IVPB ONE (19:31)
[2020-11-23] MEDS ORDERED: ACETAMINOPHEN INJECTION 100 ML IVPB ONE (20:20)
[2020-11-23 20:48] LABS: URINE APPEARANCE CLEAR; URINE BILIRUBIN NEGATIVE (NEGATIVE); URINE COLOR YELLOW; URINE GLUCOSE (UA) NEGATIVE (NEGATIVE); URINE KETONE NEGATIVE (NEGATIVE); URINE LEUK ESTERASE NEGATIVE (NEGATIVE); URINE NITRITE NEGATIVE (NEGATIVE); URINE PROTEIN NEGATIVE (NEGATIVE); URINE UROBILINOGEN 0.2 mg/dL (0.2-1.0)
[2020-11-23 21:19] LABS: BASO % 1.2 % (0-2.0); EOS % 1.4 % (0-4.5); HEMOGLOBIN 13.9 GM/dL (10.7-15.3); LYMPH % 23.3 % (8-40); MCH 29.4 pg (25.7-33.7); MCHC 33.2 g/dl (32.0-36.0); MEAN CELL VOLUME 88.5 fl (80-96); MEAN PLT VOLUME 8.7 fl (7.5-11.1); MONO % 6.8 % (3.8-10.2); NEUT % 67.3 % (42.8-82.8); PLATELET COUNT 310 K/MM3 (134-434); RBC 4.74 M/mm3 (3.60-5.2); RDW 16.6 % (11.6-15.6); WHITE BLOOD COUNT 9.7 K/mm3 (4.0-10.0)
[2020-11-23 21:43] LABS: CHLORIDE 102 mmol/L (98-107); SODIUM 137 mmol/L (136-145)
[2020-11-23 21:45] LABS: CALCIUM 9.1 mg/dL (8.5-10.1)
[2020-11-23 21:46] LABS: ALBUMIN 3.8 g/dl (3.4-5.0); ANION GAP 7 MMOL/L (8-16); CO2 27 mmol/L (21-32); GLUCOSE,RANDOM 198 mg/dL (74-106)
[2020-11-23 21:49] LABS: CREATININE 0.7 mg/dL (0.55-1.3); SGOT/AST 25 U/L (15-37); SGPT/ALT 34 U/L (13-61)
[2020-11-23 21:50] LABS: BILIRUBIN,TOTAL 0.4 mg/dL (0.2-1); TOT PROT 7.2 g/dl (6.4-8.2)
[2020-11-23 21:52] LABS: ALK PHOS 78 U/L (45-117)
[2020-11-23] MEDS ORDERED: KETOROLAC TROMETHAMINE 15 MG/ML VIAL IVPUSH ONE (21:59)
[2020-11-23 22:20] LABS: PLATELET ESTIMATE NORMAL
[2020-11-23] MEDS ORDERED: KETOROLAC TROMETHAMINE 15 MG/ML VIAL ONE (23:48)
[2020-11-23 23:51] VITALS: BP 141/91; TEMP 98.3
[2020-11-24 00:01] VITALS: PULSE 97
== END 2020-11-24 00:20 | disposition home or self-care (01) ==
LOC: JER 18:29
PROC: 3E0333Z Introduction of Anti-inflammatory into Peripheral Vein, Percutaneous Approach (ICD-10-PCS; principal; 2020-11-23)
PROC: 3E033GC Introduction of Other Therapeutic Substance into Peripheral Vein, Percutaneous Approach (ICD-10-PCS; 2020-11-23)
DX: M79.604 Pain in right leg (principal); M79.605 Pain in left leg; R22.43 Localized swelling, mass and lump, lower limb, bilateral; R06.02 Shortness of breath
CPT/HCPCS: 36415; 71045-TC-FY; 71275-TC; 80053; 81003; 82550; 83735; 83880; 84484; 85025; 87086; 93005; 93010; 93970-TC; 99285-25; J0131; Q9967

== ENCOUNTER 2021-02-17 10:38 | Inpatient (IN) | payer OTHER ==
[2021-02-17] MEDS ORDERED: ACETAMINOPHEN 1000 MG/100 ML VIAL (NON FORMULARY) IVPB ONE (12:43)
[2021-02-17] MEDS ORDERED: VANCOMYCIN 1,000 MG in DEXTROSE 5%-WATER - 250 ML IVPB ONE (12:43)
[2021-02-17] MEDS ORDERED: ACETAMINOPHEN INJECTION 100 ML IVPB ONE (13:05)
[2021-02-17] MEDS ORDERED: VANCOMYCIN 1 GRAM (PRE-DOCKED) 1,000 MG/250 ML BAG IVPB ONE (13:05)
[2021-02-17 13:14] LABS: HEMATOCRIT 43.1 % (32.4-45.2); HEMOGLOBIN 14.6 GM/dL (10.7-15.3); MCH 30.5 pg (25.7-33.7); MEAN CELL VOLUME 89.9 fl (80-96); MEAN PLT VOLUME 8.7 fl (7.5-11.1); PLATELET COUNT 282 10^3/uL (134-434); RBC 4.79 M/mm3 (3.60-5.2); RDW 13.4 % (11.6-15.6); WHITE BLOOD COUNT 9.3 K/mm3 (4.0-10.0)
[2021-02-17 13:36] LABS: ALBUMIN 3.8 g/dl (3.4-5.0); BLOOD UREA NITROGEN 16.2 mg/dL (7-18); CALCIUM 9.7 mg/dL (8.5-10.1)
[2021-02-17 13:39] LABS: CREATININE 0.9 mg/dL (0.55-1.3)
[2021-02-17 13:41] LABS: BILIRUBIN,TOTAL 0.4 mg/dL (0.2-1); TOT PROT 7.4 g/dl (6.4-8.2)
[2021-02-17] MEDS ORDERED: QUEtiapine FUMARATE 50 MG TABLET PO SCH (22:00)
[2021-02-18] MEDS ORDERED: QUEtiapine FUMARATE 25 MG TABLET ONE
[2021-02-18] MEDS: PREGABALIN 100 MG CAPSULE PO SCH ×4 (00:04→21:41)
[2021-02-18] MEDS: traZODone HCL 100 MG TABLET (FP) PO SCH ×2 (00:04→21:41)
[2021-02-18] MEDS: LABETALOL HCL 200 MG TABLET (FP) PO SCH ×3 (00:05→21:42)
[2021-02-18] MEDS: APIXABAN 2.5 MG TABLET PO SCH ×3 (00:05→21:41)
[2021-02-18] MEDS: QUEtiapine FUMARATE 25 MG TABLET PO SCH ×3 (00:10→21:41)
[2021-02-18] MEDS ORDERED: DEXTROSE 5%-WATER - 50 ML IVPB ONE ×3 (02:27→20:06)
[2021-02-18] MEDS ORDERED: PIPERACILLIN/TAZOBACTAM 2.25 GM VIAL IVPB ONE ×2 (02:27→09:32)
[2021-02-18] MEDS: PIPERACILLIN/TAZOB 2.25 GM 2.25 GM in DEXTROSE 5%-WATER - 50 ML IVPB SCH ×3 (03:24→09:36)
[2021-02-18] MEDS: INSULIN SLIDING SCALE (NOVOLOG) 1 VIAL SQ SCH ×4 (06:22→16:04)
[2021-02-18] MEDS: NICOTINE 14 MG/24 HOURS TOPICAL PATCH TD SCH ×2 (08:29→09:37)
[2021-02-18] MEDS: amLODIPine BESYLATE 10 MG TABLET (FP) PO SCH (09:37)
[2021-02-18] MEDS: ESCITALOPRAM OXALATE 10 MG TABLET PO SCH (09:37)
[2021-02-18] MEDS ORDERED: PT OWN MED DRAWER 7, Y5N ONE (12:08)
[2021-02-18] MEDS: NYSTATIN POWDER 100,000 UNITS/GM - 15 GM TOPICAL POWDER TP SCH (12:11)
[2021-02-18 12:58] LABS: BASO % 0.7 % (0-2.0); EOS % 1.3 % (0-4.5); HEMATOCRIT 41.4 % (32.4-45.2); LYMPH % 9.3 % (8-40); MCH 30.3 pg (25.7-33.7); MCHC 33.8 g/dl (32.0-36.0); MEAN CELL VOLUME 89.7 fl (80-96); MEAN PLT VOLUME 8.3 fl (7.5-11.1); MONO % 6.2 % (3.8-10.2); NEUT % 82.5 % (42.8-82.8); PLATELET COUNT 230 10^3/uL (134-434); RBC 4.62 M/mm3 (3.60-5.2); RDW 13.3 % (11.6-15.6); WHITE BLOOD COUNT 8.1 K/mm3 (4.0-10.0)
[2021-02-18] MEDS ORDERED: ACETAMINOPHEN 325 MG TABLET (FP) PO PRN (17:16)
[2021-02-18] MEDS ORDERED: VANCOMYCIN 1 GRAM (PRE-DOCKED) 1,000 MG/250 ML BAG IVPB ONE (20:00)
[2021-02-18] MEDS ORDERED: PIPERACILLIN/TAZOBACTAM 3.375 GM VIAL IVPB ONE (20:06)
[2021-02-18] MEDS: PIPERACILLIN/TAZOB 3.375 GM 3.375 GM in DEXTROSE 5%-WATER - 50 ML IVPB SCH (20:25)
[2021-02-19] MEDS ORDERED: PIPERACILLIN/TAZOBACTAM 3.375 GM VIAL IVPB ONE ×2 (01:16→10:25)
[2021-02-19] MEDS ORDERED: DEXTROSE 5%-WATER - 50 ML IVPB ONE ×3 (01:16→14:50)
[2021-02-19] MEDS: PIPERACILLIN/TAZOB 3.375 GM 3.375 GM in DEXTROSE 5%-WATER - 50 ML IVPB SCH ×3 (02:37→14:06)
[2021-02-19] MEDS: INSULIN SLIDING SCALE (NOVOLOG) 1 VIAL SQ SCH ×3 (06:28→17:20)
[2021-02-19] MEDS: PREGABALIN 100 MG CAPSULE PO SCH ×3 (06:28→21:28)
[2021-02-19] MEDS: ESCITALOPRAM OXALATE 10 MG TABLET PO SCH (10:29)
[2021-02-19] MEDS: amLODIPine BESYLATE 10 MG TABLET (FP) PO SCH (10:29)
[2021-02-19] MEDS: QUEtiapine FUMARATE 25 MG TABLET PO SCH ×2 (10:29→21:28)
[2021-02-19] MEDS: APIXABAN 2.5 MG TABLET PO SCH ×2 (10:29→21:28)
[2021-02-19] MEDS: LABETALOL HCL 200 MG TABLET (FP) PO SCH ×2 (10:29→21:28)
[2021-02-19] MEDS: ACETAMINOPHEN 325 MG TABLET (FP) PO PRN (10:31)
[2021-02-19] MEDS: NICOTINE 14 MG/24 HOURS TOPICAL PATCH TD SCH (10:41)
[2021-02-19] MEDS: NYSTATIN POWDER 100,000 UNITS/GM - 15 GM TOPICAL POWDER TP SCH (11:22)
[2021-02-19 12:25] LABS: BASO % 0.9 % (0-2.0); EOS % 2.4 % (0-4.5); HEMATOCRIT 41.1 % (32.4-45.2); HEMOGLOBIN 13.7 GM/dL (10.7-15.3); LYMPH % 18.6 % (8-40); MCH 29.9 pg (25.7-33.7); MCHC 33.3 g/dl (32.0-36.0); MEAN CELL VOLUME 89.8 fl (80-96); MEAN PLT VOLUME 8.5 fl (7.5-11.1); MONO % 9.8 % (3.8-10.2); NEUT % 68.3 % (42.8-82.8); PLATELET COUNT 219 10^3/uL (134-434); RBC 4.57 M/mm3 (3.60-5.2); RDW 13.4 % (11.6-15.6); WHITE BLOOD COUNT 5.7 K/mm3 (4.0-10.0)
[2021-02-19] MEDS: PIPERACILLIN/TAZOB 2.25 GM 2.25 GM in DEXTROSE 5%-WATER - 50 ML IVPB SCH ×4 (14:04→14:07)
[2021-02-19] MEDS ORDERED: cefTRIAXone SODIUM 1 GM VIAL ONE (14:49)
[2021-02-19] MEDS: CEFTRIAXONE 1 GM in DEXTROSE 5%-WATER - 50 ML IVPB SCH (14:55)
[2021-02-19] MEDS ORDERED: INSULIN SLIDING SCALE (NOVOLOG) 1 VIAL SQ ONE (17:02)
[2021-02-19] MEDS: traZODone HCL 100 MG TABLET (FP) PO SCH (21:29)
[2021-02-20] MEDS ORDERED: PT OWN MED DRAWER 7, Y5N ONE (07:06)
[2021-02-20] MEDS: INSULIN SLIDING SCALE (NOVOLOG) 1 VIAL SQ SCH ×3 (07:22→17:42)
[2021-02-20] MEDS: PREGABALIN 100 MG CAPSULE PO SCH ×3 (07:22→21:00)
[2021-02-20 08:42] LABS: BASO % 0.9 % (0-2.0); EOS % 3.8 % (0-4.5); HEMATOCRIT 41.1 % (32.4-45.2); HEMOGLOBIN 13.7 GM/dL (10.7-15.3); MCH 30.4 pg (25.7-33.7); MCHC 33.3 g/dl (32.0-36.0); MEAN CELL VOLUME 91.2 fl (80-96); MEAN PLT VOLUME 8.4 fl (7.5-11.1); MONO % 10.8 % (3.8-10.2); NEUT % 59.5 % (42.8-82.8); PLATELET COUNT 227 10^3/uL (134-434); RBC 4.51 M/mm3 (3.60-5.2); RDW 13.5 % (11.6-15.6); WHITE BLOOD COUNT 5.9 K/mm3 (4.0-10.0)
[2021-02-20] MEDS ORDERED: cefTRIAXone SODIUM 1 GM VIAL ONE (08:55)
[2021-02-20] MEDS ORDERED: DEXTROSE 5%-WATER - 50 ML IVPB ONE (08:56)
[2021-02-20 09:00] LABS: CALCIUM 8.4 mg/dL (8.5-10.1)
[2021-02-20 09:01] LABS: BLOOD UREA NITROGEN 11.6 mg/dL (7-18)
[2021-02-20 09:04] LABS: CREATININE 0.7 mg/dL (0.55-1.3)
[2021-02-20] MEDS: APIXABAN 2.5 MG TABLET PO SCH ×2 (09:17→21:00)
[2021-02-20] MEDS: QUEtiapine FUMARATE 25 MG TABLET PO SCH ×2 (09:17→21:00)
[2021-02-20] MEDS: NICOTINE 14 MG/24 HOURS TOPICAL PATCH TD SCH (09:18)
[2021-02-20] MEDS: LABETALOL HCL 200 MG TABLET (FP) PO SCH ×2 (09:18→21:00)
[2021-02-20] MEDS: amLODIPine BESYLATE 10 MG TABLET (FP) PO SCH (09:18)
[2021-02-20] MEDS: CEFTRIAXONE 1 GM in DEXTROSE 5%-WATER - 50 ML IVPB SCH (09:18)
[2021-02-20] MEDS: ESCITALOPRAM OXALATE 10 MG TABLET PO SCH (09:18)
[2021-02-20] MEDS: NYSTATIN POWDER 100,000 UNITS/GM - 15 GM TOPICAL POWDER TP SCH (11:17)
[2021-02-20] MEDS: ACETAMINOPHEN 325 MG TABLET (FP) PO PRN (12:05)
[2021-02-20 15:12] VITALS: BMI 48.9
[2021-02-20] MEDS: traZODone HCL 100 MG TABLET (FP) PO SCH (21:00)
[2021-02-21] MEDS ORDERED: PT OWN MED DRAWER 7, Y5N ONE (06:13)
[2021-02-21] MEDS: INSULIN SLIDING SCALE (NOVOLOG) 1 VIAL SQ SCH ×3 (06:23→17:13)
[2021-02-21] MEDS: PREGABALIN 100 MG CAPSULE PO SCH ×3 (06:24→21:12)
[2021-02-21] MEDS ORDERED: cefTRIAXone SODIUM 1 GM VIAL ONE (08:55)
[2021-02-21] MEDS ORDERED: DEXTROSE 5%-WATER - 50 ML IVPB ONE (08:55)
[2021-02-21] MEDS: amLODIPine BESYLATE 10 MG TABLET (FP) PO SCH (08:59)
[2021-02-21] MEDS: APIXABAN 2.5 MG TABLET PO SCH ×2 (08:59→21:12)
[2021-02-21] MEDS: ESCITALOPRAM OXALATE 10 MG TABLET PO SCH (09:00)
[2021-02-21] MEDS: LABETALOL HCL 200 MG TABLET (FP) PO SCH ×2 (09:00→21:12)
[2021-02-21] MEDS: QUEtiapine FUMARATE 25 MG TABLET PO SCH ×2 (09:00→21:12)
[2021-02-21] MEDS: CEFTRIAXONE 1 GM in DEXTROSE 5%-WATER - 50 ML IVPB SCH (09:01)
[2021-02-21] MEDS: NICOTINE 14 MG/24 HOURS TOPICAL PATCH TD SCH (09:01)
[2021-02-21] MEDS: NYSTATIN POWDER 100,000 UNITS/GM - 15 GM TOPICAL POWDER TP SCH (09:01)
[2021-02-21 10:25] LABS: BASO % 0.9 % (0-2.0); EOS % 2.8 % (0-4.5); HEMATOCRIT 44.9 % (32.4-45.2); HEMOGLOBIN 15.1 GM/dL (10.7-15.3); LYMPH % 20.3 % (8-40); MCH 30.7 pg (25.7-33.7); MCHC 33.7 g/dl (32.0-36.0); MEAN PLT VOLUME 8.9 fl (7.5-11.1); MONO % 6.8 % (3.8-10.2); NEUT % 69.2 % (42.8-82.8); PLATELET COUNT 250 10^3/uL (134-434); RBC 4.93 M/mm3 (3.60-5.2); RDW 13.3 % (11.6-15.6); WHITE BLOOD COUNT 7.1 K/mm3 (4.0-10.0)
[2021-02-21] MEDS: ACETAMINOPHEN 325 MG TABLET (FP) PO PRN (12:10)
[2021-02-21] MEDS ORDERED: KETOROLAC TROMETHAMINE 30 MG/1 ML VIAL IM ONE (15:01)
[2021-02-21] MEDS: traZODone HCL 100 MG TABLET (FP) PO SCH (21:12)
[2021-02-22] MEDS: PREGABALIN 100 MG CAPSULE PO SCH ×3 (06:06→21:41)
[2021-02-22] MEDS: INSULIN SLIDING SCALE (NOVOLOG) 1 VIAL SQ SCH ×3 (06:06→17:36)
[2021-02-22] MEDS: sitaGLIPtin PHOSPHATE 50 MG TABLET PO SCH (06:07)
[2021-02-22] MEDS ORDERED: cefTRIAXone SODIUM 1 GM VIAL ONE (09:45)
[2021-02-22] MEDS ORDERED: DEXTROSE 5%-WATER - 50 ML IVPB ONE (09:45)
[2021-02-22] MEDS: ESCITALOPRAM OXALATE 10 MG TABLET PO SCH (09:54)
[2021-02-22] MEDS: QUEtiapine FUMARATE 25 MG TABLET PO SCH ×2 (09:54→21:41)
[2021-02-22] MEDS: LABETALOL HCL 200 MG TABLET (FP) PO SCH ×2 (09:54→21:41)
[2021-02-22] MEDS: amLODIPine BESYLATE 10 MG TABLET (FP) PO SCH (09:54)
[2021-02-22] MEDS: APIXABAN 2.5 MG TABLET PO SCH ×2 (09:54→21:41)
[2021-02-22] MEDS: CEFTRIAXONE 1 GM in DEXTROSE 5%-WATER - 50 ML IVPB SCH (09:55)
[2021-02-22] MEDS: NYSTATIN POWDER 100,000 UNITS/GM - 15 GM TOPICAL POWDER TP SCH (09:55)
[2021-02-22] MEDS: NICOTINE 14 MG/24 HOURS TOPICAL PATCH TD SCH (09:55)
[2021-02-22 10:41] LABS: BASO % 0.9 % (0-2.0); EOS % 2.9 % (0-4.5); HEMATOCRIT 42.7 % (32.4-45.2); HEMOGLOBIN 14.3 GM/dL (10.7-15.3); MCH 30.2 pg (25.7-33.7); MCHC 33.6 g/dl (32.0-36.0); MEAN PLT VOLUME 8.3 fl (7.5-11.1); MONO % 9.9 % (3.8-10.2); NEUT % 65.3 % (42.8-82.8); PLATELET COUNT 231 10^3/uL (134-434); RBC 4.74 M/mm3 (3.60-5.2); RDW 13.2 % (11.6-15.6); WHITE BLOOD COUNT 7.1 K/mm3 (4.0-10.0)
[2021-02-22] MEDS ORDERED: METOCLOPRAMIDE HCL 10 MG TABLET (FP) PO STA (14:52)
[2021-02-22] MEDS: traZODone HCL 100 MG TABLET (FP) PO SCH (21:41)
[2021-02-23] MEDS: INSULIN SLIDING SCALE (NOVOLOG) 1 VIAL SQ SCH ×3 (06:06→17:04)
[2021-02-23] MEDS: PREGABALIN 100 MG CAPSULE PO SCH ×3 (06:08→21:28)
[2021-02-23] MEDS: sitaGLIPtin PHOSPHATE 50 MG TABLET PO SCH (06:09)
[2021-02-23 09:31] LABS: BASO % 0.9 % (0-2.0); LYMPH % 24.1 % (8-40); MCH 30.7 pg (25.7-33.7); MCHC 34.1 g/dl (32.0-36.0); MEAN CELL VOLUME 90.1 fl (80-96); MEAN PLT VOLUME 8.6 fl (7.5-11.1); MONO % 8.6 % (3.8-10.2); NEUT % 63.4 % (42.8-82.8); PLATELET COUNT 235 10^3/uL (134-434); RBC 4.88 M/mm3 (3.60-5.2); RDW 13.4 % (11.6-15.6); WHITE BLOOD COUNT 6.9 K/mm3 (4.0-10.0)
[2021-02-23] MEDS ORDERED: cefTRIAXone SODIUM 1 GM VIAL ONE (09:32)
[2021-02-23] MEDS ORDERED: DEXTROSE 5%-WATER - 50 ML IVPB ONE (09:32)
[2021-02-23] MEDS: APIXABAN 2.5 MG TABLET PO SCH ×2 (09:36→21:28)
[2021-02-23] MEDS: ESCITALOPRAM OXALATE 10 MG TABLET PO SCH (09:36)
[2021-02-23] MEDS: amLODIPine BESYLATE 10 MG TABLET (FP) PO SCH (09:36)
[2021-02-23] MEDS: CEFTRIAXONE 1 GM in DEXTROSE 5%-WATER - 50 ML IVPB SCH (09:36)
[2021-02-23] MEDS: LABETALOL HCL 200 MG TABLET (FP) PO SCH ×2 (09:36→21:28)
[2021-02-23] MEDS: QUEtiapine FUMARATE 25 MG TABLET PO SCH ×2 (09:36→21:28)
[2021-02-23] MEDS: NYSTATIN POWDER 100,000 UNITS/GM - 15 GM TOPICAL POWDER TP SCH (09:37)
[2021-02-23] MEDS: NICOTINE 14 MG/24 HOURS TOPICAL PATCH TD SCH (09:38)
[2021-02-23 09:50] LABS: BLOOD UREA NITROGEN 14.2 mg/dL (7-18)
[2021-02-23 09:53] LABS: CREATININE 0.7 mg/dL (0.55-1.3)
[2021-02-23] MEDS: AMOX TR/POT CLAV 875MG/125MG TABLETS (FP) PO SCH (17:04)
[2021-02-23] MEDS: traZODone HCL 100 MG TABLET (FP) PO SCH (21:29)
[2021-02-24 06:12] VITALS: TEMP 97.8
[2021-02-24] MEDS: PREGABALIN 100 MG CAPSULE PO SCH (06:12)
[2021-02-24] MEDS: sitaGLIPtin PHOSPHATE 50 MG TABLET PO SCH (06:12)
[2021-02-24] MEDS: INSULIN SLIDING SCALE (NOVOLOG) 1 VIAL SQ SCH ×2 (06:16→11:34)
[2021-02-24] MEDS: QUEtiapine FUMARATE 25 MG TABLET PO SCH (10:56)
[2021-02-24] MEDS: amLODIPine BESYLATE 10 MG TABLET (FP) PO SCH (10:56)
[2021-02-24] MEDS: ESCITALOPRAM OXALATE 10 MG TABLET PO SCH (10:57)
[2021-02-24] MEDS: AMOX TR/POT CLAV 875MG/125MG TABLETS (FP) PO SCH (10:57)
[2021-02-24] MEDS: LABETALOL HCL 200 MG TABLET (FP) PO SCH (10:57)
[2021-02-24] MEDS: APIXABAN 2.5 MG TABLET PO SCH (10:57)
[2021-02-24] MEDS: NICOTINE 14 MG/24 HOURS TOPICAL PATCH TD SCH (10:58)
[2021-02-24] MEDS: NYSTATIN POWDER 100,000 UNITS/GM - 15 GM TOPICAL POWDER TP SCH (10:58)
[2021-02-24 12:42] VITALS: BP 136/80; PULSE 80
== END 2021-02-24 11:45 | disposition home or self-care (01) | DRG 380 ==
LOC: JER 10:38 → JERBED 15:17 → J5S 23:33
PROVIDERS: ADMIT Internal Medicine; ATTEND Internal Medicine
DX: E11.621 Type 2 diabetes mellitus with foot ulcer (principal); E66.01 Morbid (severe) obesity due to excess calories; F41.8 Other specified anxiety disorders; G47.33 Obstructive sleep apnea (adult) (pediatric); L03.116 Cellulitis of left lower limb; Z68.42 Body mass index [BMI] 45.0-49.9, adult; F12.10 Cannabis abuse, uncomplicated; F13.10 Sedative, hypnotic or anxiolytic abuse, uncomplicated; L97.529 Non-pressure chronic ulcer of other part of left foot with unspecified severity; R78.81 Bacteremia; I11.0 Hypertensive heart disease with heart failure; I50.9 Heart failure, unspecified; F11.20 Opioid dependence, uncomplicated
CPT/HCPCS: 36415; 71045-TC-FY; 73610-TC-LT-FY; 73630-TC-LT; 73718-TC-LT; 80048; 80053; 82962; 83036; 85025; 85027; 86140; 87040; 87070; 87186; 87205; 93005; 93010; 93306-TC; 99285-25; C9803; G0463-25; J0131; U0003; U0005

== ENCOUNTER 2021-03-16 08:50 | Inpatient (IN) | payer OTHER ==
[2021-03-16] MEDS ORDERED: SODIUM CHLORIDE 1,000 ML IV STA (09:40)
[2021-03-16] MEDS ORDERED: ACETAMINOPHEN 1000 MG/100 ML VIAL (NON FORMULARY) IVPB ONE (09:40)
[2021-03-16] MEDS ORDERED: ACETAMINOPHEN INJECTION 100 ML IVPB ONE (10:07)
[2021-03-16] MEDS ORDERED: VANCOMYCIN 1 GM in D5W (PRE-DOCKED) 1,000 MG/250 ML IVPB ONE (10:12)
[2021-03-16] MEDS ORDERED: PIPERACILLIN/TAZOB 4.5 GM 4.5 GM/100 ML BAG IVPB ONE ×2 (10:12→10:39)
[2021-03-16] MEDS ORDERED: VANCOMYCIN 1 GRAM (PRE-DOCKED) 1,000 MG/250 ML BAG IVPB ONE (10:39)
[2021-03-16] MEDS ORDERED: morphine CARPU-JECT 4 MG/1 ML DISP.SYRIN IVPUSH ONE ×3 (10:50→14:40)
[2021-03-16] MEDS ORDERED: MORPHINE SULFATE 2 MG/ML VIAL ONE ×3 (10:52→14:52)
[2021-03-16 11:14] LABS: BASO % 0.9 % (0-2.0); EOS % 3.2 % (0-4.5); HEMATOCRIT 42.2 % (32.4-45.2); HEMOGLOBIN 14.2 GM/dL (10.7-15.3); LYMPH % 22.1 % (8-40); MCH 30.3 pg (25.7-33.7); MCHC 33.6 g/dl (32.0-36.0); MEAN CELL VOLUME 90.1 fl (80-96); MEAN PLT VOLUME 8.8 fl (7.5-11.1); MONO % 7.9 % (3.8-10.2); NEUT % 65.9 % (42.8-82.8); PLATELET COUNT 238 10^3/uL (134-434); RBC 4.68 M/mm3 (3.60-5.2); RDW 13.6 % (11.6-15.6); WHITE BLOOD COUNT 7.2 K/mm3 (4.0-10.0)
[2021-03-16 11:35] LABS: CALCIUM 9.1 mg/dL (8.5-10.1)
[2021-03-16 11:36] LABS: BLOOD UREA NITROGEN 21.1 mg/dL (7-18)
[2021-03-16 11:39] LABS: CREATININE 0.8 mg/dL (0.55-1.3)
[2021-03-16 11:40] LABS: BILIRUBIN,TOTAL 0.3 mg/dL (0.2-1)
[2021-03-16 11:41] LABS: TOT PROT 7.3 g/dl (6.4-8.2)
[2021-03-16 11:50] LABS: ALBUMIN 3.7 g/dl (3.4-5.0)
[2021-03-16 11:51] LABS: ERYTHROCYTE SEDIMENTATION RATE 2 mm/hr (0-20)
[2021-03-16 14:52] LABS: METHADONE, UR NEGATIVE (NEGATIVE)
[2021-03-16 15:53] LABS: OPIATES, URI NEGATIVE (NEGATIVE); URINE AMPHETAMINES NEGATIVE (NEGATIVE); URINE BARBITURATES NEGATIVE (NEGATIVE); URINE BENZODIAZEPINES NEGATIVE (NEGATIVE)
[2021-03-16] MEDS ORDERED: morphine SULFATE 4 MG/ML VIAL IVPUSH ONE (16:00)
[2021-03-16] MEDS ORDERED: METHOCARBAMOL 500 MG TABLET PO ONE (16:00)
[2021-03-16 16:04] LABS: PHENCYCLIDINE,URINE NEGATIVE (NEGATIVE)
[2021-03-16 16:10] LABS: COCAINE, UR NEGATIVE (NEGATIVE)
[2021-03-16] MEDS ORDERED: METHOCARBAMOL 500 MG TABLET ONE (16:23)
[2021-03-16] MEDS ORDERED: GABAPENTIN 100 MG CAPSULE ONE (16:23)
[2021-03-16] MEDS ORDERED: morphine SULFATE 4 MG/ML VIAL ONE (16:23)
[2021-03-16] MEDS: GABAPENTIN 100 MG CAPSULE PO SCH ×2 (16:30→22:56)
[2021-03-16] MEDS: INSULIN SLIDING SCALE (NOVOLOG) 1 VIAL SQ SCH ×2 (17:11→22:55)
[2021-03-16] MEDS ORDERED: DEXTROSE 5%-WATER - 50 ML IVPB ONE (17:57)
[2021-03-16] MEDS ORDERED: PIPERACILLIN/TAZOBACTAM 3.375 GM VIAL IVPB ONE (17:57)
[2021-03-16] MEDS ORDERED: PIPERACILLIN/TAZOB 3.375 GM 3.375 GM in DEXTROSE 5%-WATER - 50 ML IVPB SCH (18:00)
[2021-03-16] MEDS: PIPERACILLIN/TAZOB 3.375 GM 3.375 GM in DEXTROSE 5%-WATER - 50 ML IVPB SCH (18:32)
[2021-03-16] MEDS ORDERED: oxyCODONE HCL 5 MG TABLET PO ONE (19:02)
[2021-03-16] MEDS: APIXABAN 2.5 MG TABLET PO SCH (22:56)
[2021-03-16] MEDS: LABETALOL HCL 200 MG TABLET (FP) PO SCH (22:56)
[2021-03-16] MEDS ORDERED: VANCOMYCIN 1 GM in D5W (PRE-DOCKED) 1,000 MG/250 ML IVPB SCH (23:00)
[2021-03-16] MEDS: VANCOMYCIN 1 GRAM (PRE-DOCKED) 1,000 MG/250 ML BAG IVPB SCH (23:45)
[2021-03-17] MEDS ORDERED: PIPERACILLIN/TAZOBACTAM 3.375 GM VIAL IVPB ONE ×3 (00:58→17:14)
[2021-03-17] MEDS ORDERED: DEXTROSE 5%-WATER - 50 ML IVPB ONE ×3 (00:59→17:14)
[2021-03-17] MEDS: PIPERACILLIN/TAZOB 3.375 GM 3.375 GM in DEXTROSE 5%-WATER - 50 ML IVPB SCH ×3 (01:29→17:25)
[2021-03-17] MEDS: GABAPENTIN 100 MG CAPSULE PO SCH ×3 (07:00→21:29)
[2021-03-17] MEDS: INSULIN SLIDING SCALE (NOVOLOG) 1 VIAL SQ SCH ×4 (07:03→21:28)
[2021-03-17 07:16] LABS: HEMATOCRIT 38.3 % (32.4-45.2); HEMOGLOBIN 13.2 GM/dL (10.7-15.3); MCH 30.6 pg (25.7-33.7); MCHC 34.4 g/dl (32.0-36.0); MEAN CELL VOLUME 89.1 fl (80-96); MEAN PLT VOLUME 8.1 fl (7.5-11.1); PLATELET COUNT 203 10^3/uL (134-434); RDW 13.5 % (11.6-15.6); WHITE BLOOD COUNT 7.3 K/mm3 (4.0-10.0)
[2021-03-17 07:39] LABS: CALCIUM 8.3 mg/dL (8.5-10.1)
[2021-03-17 07:40] LABS: BLOOD UREA NITROGEN 16.5 mg/dL (7-18); MAGNESIUM 1.6 mg/dL (1.8-2.4)
[2021-03-17 07:43] LABS: CREATININE 0.8 mg/dL (0.55-1.3); PHOSPHOROUS 3.6 mg/dL (2.5-4.9)
[2021-03-17 07:44] LABS: BILIRUBIN,TOTAL 0.4 mg/dL (0.2-1)
[2021-03-17 07:46] LABS: TOT PROT 6.2 g/dl (6.4-8.2)
[2021-03-17 07:49] LABS: ALBUMIN 3.2 g/dl (3.4-5.0)
[2021-03-17] MEDS ORDERED: ENOXAPARIN NA (PORCINE) 40 MG/0.4 ML DISP.SYRIN SQ SCH (10:00)
[2021-03-17] MEDS ORDERED: VANCOMYCIN 1 GM in D5W (PRE-DOCKED) 1,000 MG/250 ML IVPB SCH (10:00)
[2021-03-17] MEDS: APIXABAN 2.5 MG TABLET PO SCH ×2 (10:08→21:29)
[2021-03-17] MEDS: amLODIPine BESYLATE 10 MG TABLET (FP) PO SCH (10:08)
[2021-03-17] MEDS: ESCITALOPRAM OXALATE 10 MG TABLET PO SCH (10:08)
[2021-03-17] MEDS: LABETALOL HCL 200 MG TABLET (FP) PO SCH ×2 (10:08→21:29)
[2021-03-17] MEDS: oxyCODONE HCL 5 MG TABLET PO PRN ×2 (10:08→21:31)
[2021-03-17] MEDS: ACETAMINOPHEN 325 MG TABLET (FP) PO PRN ×2 (10:10→21:30)
[2021-03-17] MEDS: VANCOMYCIN 1 GRAM (PRE-DOCKED) 1,000 MG/250 ML BAG IVPB SCH ×2 (10:59→23:19)
[2021-03-18] MEDS ORDERED: PIPERACILLIN/TAZOBACTAM 3.375 GM VIAL IVPB ONE ×3 (02:04→17:39)
[2021-03-18] MEDS ORDERED: DEXTROSE 5%-WATER - 50 ML IVPB ONE ×4 (02:04→21:28)
[2021-03-18] MEDS: PIPERACILLIN/TAZOB 3.375 GM 3.375 GM in DEXTROSE 5%-WATER - 50 ML IVPB SCH ×3 (02:13→17:43)
[2021-03-18] MEDS: GABAPENTIN 100 MG CAPSULE PO SCH ×3 (06:15→21:39)
[2021-03-18] MEDS: INSULIN SLIDING SCALE (NOVOLOG) 1 VIAL SQ SCH ×4 (06:15→21:44)
[2021-03-18] MEDS: ACETAMINOPHEN 325 MG TABLET (FP) PO PRN ×3 (06:24→21:37)
[2021-03-18] MEDS: INSULIN (LEVEMIR) 100 UNITS/ML UNITS SQ SCH ×2 (08:49→21:45)
[2021-03-18] MEDS: oxyCODONE HCL 5 MG TABLET PO PRN ×2 (09:46→21:33)
[2021-03-18] MEDS: ESCITALOPRAM OXALATE 10 MG TABLET PO SCH (09:46)
[2021-03-18] MEDS: amLODIPine BESYLATE 10 MG TABLET (FP) PO SCH (09:46)
[2021-03-18] MEDS: APIXABAN 2.5 MG TABLET PO SCH ×2 (09:47→21:38)
[2021-03-18] MEDS: LABETALOL HCL 200 MG TABLET (FP) PO SCH ×2 (09:47→21:39)
[2021-03-18] MEDS: VANCOMYCIN 1 GRAM (PRE-DOCKED) 1,000 MG/250 ML BAG IVPB SCH ×2 (11:59→22:54)
[2021-03-18] MEDS: COLLAGENASE CLOSTRIDIUM HIST. 30 GRAMS TUBE TP SCH (13:59)
[2021-03-18 16:02] VITALS: BMI 41.2
[2021-03-18] MEDS ORDERED: CEFTRIAXONE 1 GM in DEXTROSE 5%-WATER - 50 ML IVPB SCH (17:45)
[2021-03-18] MEDS ORDERED: cefTRIAXone SODIUM 1 GM VIAL ONE (21:28)
[2021-03-18] MEDS: CEFTRIAXONE 1 GM in DEXTROSE 5%-WATER - 50 ML IVPB SCH (21:39)
[2021-03-19 06:32] LABS: BASO % 0.8 % (0-2.0); EOS % 3.7 % (0-4.5); HEMATOCRIT 40.2 % (32.4-45.2); HEMOGLOBIN 13.8 GM/dL (10.7-15.3); LYMPH % 26.8 % (8-40); MCHC 34.3 g/dl (32.0-36.0); MEAN CELL VOLUME 90.4 fl (80-96); MEAN PLT VOLUME 8.4 fl (7.5-11.1); MONO % 9.3 % (3.8-10.2); NEUT % 59.4 % (42.8-82.8); PLATELET COUNT 227 10^3/uL (134-434); RBC 4.45 M/mm3 (3.60-5.2); RDW 13.6 % (11.6-15.6); WHITE BLOOD COUNT 6.7 K/mm3 (4.0-10.0)
[2021-03-19 06:47] LABS: CALCIUM 8.8 mg/dL (8.5-10.1)
[2021-03-19] MEDS: INSULIN SLIDING SCALE (NOVOLOG) 1 VIAL SQ SCH ×4 (06:47→21:12)
[2021-03-19] MEDS: GABAPENTIN 100 MG CAPSULE PO SCH ×3 (06:47→21:06)
[2021-03-19 06:48] LABS: BLOOD UREA NITROGEN 16.6 mg/dL (7-18)
[2021-03-19] MEDS: INSULIN (LEVEMIR) 100 UNITS/ML UNITS SQ SCH ×2 (06:48→21:12)
[2021-03-19 06:51] LABS: CREATININE 0.7 mg/dL (0.55-1.3)
[2021-03-19] MEDS ORDERED: DEXTROSE 5%-WATER - 50 ML IVPB ONE (10:25)
[2021-03-19] MEDS ORDERED: PT OWN MED DRAWER 7, Y5N ONE (10:25)
[2021-03-19] MEDS ORDERED: cefTRIAXone SODIUM 1 GM VIAL ONE (10:25)
[2021-03-19] MEDS: ACETAMINOPHEN 325 MG TABLET (FP) PO PRN ×2 (10:29→22:22)
[2021-03-19] MEDS: oxyCODONE HCL 5 MG TABLET PO PRN (10:30)
[2021-03-19] MEDS: APIXABAN 2.5 MG TABLET PO SCH ×2 (10:31→21:13)
[2021-03-19] MEDS: LABETALOL HCL 200 MG TABLET (FP) PO SCH ×2 (10:31→21:08)
[2021-03-19] MEDS: ESCITALOPRAM OXALATE 10 MG TABLET PO SCH (10:31)
[2021-03-19] MEDS: amLODIPine BESYLATE 10 MG TABLET (FP) PO SCH (10:31)
[2021-03-19] MEDS: CEFTRIAXONE 1 GM in DEXTROSE 5%-WATER - 50 ML IVPB SCH (10:33)
[2021-03-19] MEDS: VANCOMYCIN 1 GRAM (PRE-DOCKED) 1,000 MG/250 ML BAG IVPB SCH ×2 (10:34→22:22)
[2021-03-19] MEDS: COLLAGENASE CLOSTRIDIUM HIST. 30 GRAMS TUBE TP SCH (10:35)
[2021-03-20] MEDS: INSULIN SLIDING SCALE (NOVOLOG) 1 VIAL SQ SCH ×3 (06:40→16:53)
[2021-03-20] MEDS: GABAPENTIN 100 MG CAPSULE PO SCH ×2 (06:41→15:07)
[2021-03-20] MEDS: INSULIN (LEVEMIR) 100 UNITS/ML UNITS SQ SCH (06:42)
[2021-03-20] MEDS ORDERED: cefTRIAXone SODIUM 1 GM VIAL ONE (09:05)
[2021-03-20] MEDS ORDERED: DEXTROSE 5%-WATER - 50 ML IVPB ONE (09:06)
[2021-03-20] MEDS: amLODIPine BESYLATE 10 MG TABLET (FP) PO SCH (10:05)
[2021-03-20] MEDS: CEFTRIAXONE 1 GM in DEXTROSE 5%-WATER - 50 ML IVPB SCH (10:05)
[2021-03-20] MEDS: ESCITALOPRAM OXALATE 10 MG TABLET PO SCH (10:05)
[2021-03-20] MEDS: APIXABAN 2.5 MG TABLET PO SCH (10:05)
[2021-03-20] MEDS: LABETALOL HCL 200 MG TABLET (FP) PO SCH (10:05)
[2021-03-20] MEDS: COLLAGENASE CLOSTRIDIUM HIST. 30 GRAMS TUBE TP SCH (10:06)
[2021-03-20] MEDS ORDERED: ACETAMINOPHEN 325 MG TABLET (FP) PO PRN (10:51)
[2021-03-20] MEDS ORDERED: oxyCODONE HCL 5 MG TABLET PO PRN (11:08)
[2021-03-20] MEDS: VANCOMYCIN 1 GRAM (PRE-DOCKED) 1,000 MG/250 ML BAG IVPB SCH (11:10)
[2021-03-20 15:47] VITALS: BP 135/77; PULSE 94; TEMP 98.7
== END 2021-03-20 18:20 | disposition home or self-care (01) | DRG 383 ==
LOC: JER 08:50 → JERBED 12:37 → J4S 17:32
PROVIDERS: ADMIT Internal Medicine
DX: L03.116 Cellulitis of left lower limb (principal); E11.621 Type 2 diabetes mellitus with foot ulcer; L97.529 Non-pressure chronic ulcer of other part of left foot with unspecified severity; E11.40 Type 2 diabetes mellitus with diabetic neuropathy, unspecified; I27.82 Chronic pulmonary embolism; I10 Essential (primary) hypertension; Z79.84 Long term (current) use of oral hypoglycemic drugs; G47.33 Obstructive sleep apnea (adult) (pediatric); F32.9 Major depressive disorder, single episode, unspecified; E66.01 Morbid (severe) obesity due to excess calories; F17.210 Nicotine dependence, cigarettes, uncomplicated; F14.10 Cocaine abuse, uncomplicated; F11.10 Opioid abuse, uncomplicated; F12.10 Cannabis abuse, uncomplicated; Z86.718 Personal history of other venous thrombosis and embolism; Z68.41 Body mass index [BMI] 40.0-44.9, adult; F41.9 Anxiety disorder, unspecified
CPT/HCPCS: 36415; 73630-TC-LT; 73660-TC-LT-FY; 73718-TC-LT; 80048; 80053; 80307; 82962; 83735; 84100; 85025; 85027; 85651; 86140; 87040; 87070; 87081; 87186; 87205; 94010; 99285-25; C9803; G0480; J0131; U0003; U0005

== ENCOUNTER 2021-03-30 13:19 | Inpatient (IN) | payer OTHER ==
[2021-03-30 15:34] LABS: VENOUS BASE EXCESS -0.7 mmol/L (-2-2); VENOUS O2 SATURATION 83.9 % (70-80); VENOUS PCO2 42.3 mmHg (38-52); VENOUS PH 7.381 (7.310-7.410)
[2021-03-30 15:37] LABS: BASO % 0.8 % (0-2.0); EOS % 2.1 % (0-4.5); HEMATOCRIT 44.9 % (32.4-45.2); HEMOGLOBIN 15.1 GM/dL (10.7-15.3); LYMPH % 19.2 % (8-40); MCH 29.9 pg (25.7-33.7); MCHC 33.7 g/dl (32.0-36.0); MEAN CELL VOLUME 88.9 fl (80-96); MEAN PLT VOLUME 8.6 fl (7.5-11.1); MONO % 10.7 % (3.8-10.2); NEUT % 67.2 % (42.8-82.8); PLATELET COUNT 258 10^3/uL (134-434); RBC 5.05 M/mm3 (3.60-5.2); RDW 13.3 % (11.6-15.6); WHITE BLOOD COUNT 6.5 K/mm3 (4.0-10.0)
[2021-03-30] MEDS ORDERED: LABETALOL HCL 100 MG TABLET (FP) PO ONE (15:55)
[2021-03-30 16:01] LABS: CHLORIDE 103 mmol/L (98-107); SODIUM 138 mmol/L (136-145)
[2021-03-30 16:03] LABS: INR 0.96 (0.83-1.09); PROTHROMBIN TIME (PATIENT) 11.6 SEC (9.7-13.0)
[2021-03-30] MEDS ORDERED: LABETALOL HCL 100 MG TABLET (FP) ONE (16:03)
[2021-03-30 16:06] LABS: ACTIVATED PTT 29.1 SECONDS (25.2-36.5); ANION GAP 8 MMOL/L (8-16); BLOOD UREA NITROGEN 13.4 mg/dL (7-18); CALCIUM 9.2 mg/dL (8.5-10.1); CO2 27 mmol/L (21-32); GLUCOSE,RANDOM 187 mg/dL (74-106)
[2021-03-30] MEDS ORDERED: methylPREDNISolone NA SUCC 125 MG/2 ML VIAL IVPB ONE (16:08)
[2021-03-30 16:09] LABS: BILIRUBIN,DIRECT 0.1 mg/dL (0.0-0.2); CREATININE 0.8 mg/dL (0.55-1.3); SGPT/ALT 34 U/L (13-61)
[2021-03-30 16:10] LABS: BILIRUBIN,TOTAL 0.6 mg/dL (0.2-1); TOT PROT 7.7 g/dl (6.4-8.2)
[2021-03-30 16:12] LABS: ALK PHOS 75 U/L (45-117); LDH 180 U/L (84-246)
[2021-03-30 16:22] LABS: SGOT/AST 15 U/L (15-37)
[2021-03-30] MEDS ORDERED: methylPREDNISolone NA SUCC 125 MG/2 ML VIAL ONE (16:26)
[2021-03-30 16:28] LABS: ALBUMIN 3.8 g/dl (3.4-5.0)
[2021-03-30] MEDS ORDERED: CEFTRIAXONE 1 GM in DEXTROSE 5%-WATER - 100 ML IVPB ONE (17:59)
[2021-03-30] MEDS ORDERED: AZITHROMYCIN IVPB 500 MG in DEXTROSE 5%-WATER - 250 ML IVPB ONE (17:59)
[2021-03-30] MEDS ORDERED: AZITHROMYCIN IVPB 500 MG/250 ML BAG IVPB ONE (18:37)
[2021-03-30] MEDS ORDERED: CEFTRIAXONE 1 GM/50 ML BAG ONE (19:42)
[2021-03-30] MEDS ORDERED: ALBUTEROL SO4 2.5/IPRATROPIUM 0.5 INH SOL 3 ML VIAL.NEB. NEB ONE (21:08)
[2021-03-30] MEDS: ALBUTEROL SO4 2.5/IPRATROPIUM 0.5 INH SOL 3 ML VIAL.NEB. NEB SCH ×4 (21:16→23:02)
[2021-03-30 21:47] LABS: PH,URINE 6.5 (5.0-8.0); URINE APPEARANCE CLOUDY; URINE BILIRUBIN NEGATIVE (NEGATIVE); URINE COLOR YELLOW; URINE GLUCOSE (UA) NEGATIVE (NEGATIVE); URINE KETONE NEGATIVE (NEGATIVE); URINE LEUK ESTERASE NEGATIVE (NEGATIVE); URINE NITRITE NEGATIVE (NEGATIVE); URINE PROTEIN TRACE (NEGATIVE)
[2021-03-31 09:26] LABS: BASO % 0.7 % (0-2.0); HEMATOCRIT 44.2 % (32.4-45.2); HEMOGLOBIN 14.9 GM/dL (10.7-15.3); MCH 30.5 pg (25.7-33.7); MCHC 33.7 g/dl (32.0-36.0); MEAN CELL VOLUME 90.6 fl (80-96); MEAN PLT VOLUME 9.3 fl (7.5-11.1); MONO % 6.8 % (3.8-10.2); NEUT % 79.5 % (42.8-82.8); PLATELET COUNT 279 10^3/uL (134-434); RBC 4.88 M/mm3 (3.60-5.2); WHITE BLOOD COUNT 10.9 K/mm3 (4.0-10.0)
[2021-03-31] MEDS ORDERED: APIXABAN 2.5 MG TABLET ONE ×2 (09:32→21:28)
[2021-03-31] MEDS ORDERED: LABETALOL HCL 100 MG TABLET (FP) ONE ×2 (09:32→21:28)
[2021-03-31] MEDS ORDERED: QUEtiapine FUMARATE 25 MG TABLET ONE ×2 (09:33→09:45)
[2021-03-31] MEDS ORDERED: ESCITALOPRAM OXALATE 10 MG TABLET ONE (09:33)
[2021-03-31 09:56] LABS: BLOOD UREA NITROGEN 21.1 mg/dL (7-18); CALCIUM 9.6 mg/dL (8.5-10.1)
[2021-03-31 10:00] LABS: CREATININE 0.9 mg/dL (0.55-1.3)
[2021-03-31 10:01] LABS: BILIRUBIN,TOTAL 0.3 mg/dL (0.2-1)
[2021-03-31] MEDS: LABETALOL HCL 200 MG TABLET (FP) PO SCH ×2 (10:48→22:04)
[2021-03-31] MEDS: APIXABAN 2.5 MG TABLET PO SCH ×2 (10:48→21:43)
[2021-03-31] MEDS: QUEtiapine FUMARATE 50 MG TABLET PO SCH (10:48)
[2021-03-31] MEDS: amLODIPine BESYLATE 10 MG TABLET (FP) PO SCH (10:48)
[2021-03-31] MEDS: ESCITALOPRAM OXALATE 10 MG TABLET PO SCH (10:48)
[2021-03-31] MEDS ORDERED: CEFTRIAXONE 1 GM/50 ML BAG ONE (12:57)
[2021-03-31] MEDS: CEFTRIAXONE 1 GM in DEXTROSE 5%-WATER - 50 ML IVPB SCH (13:13)
[2021-03-31] MEDS ORDERED: ALBUTEROL SO4 2.5/IPRATROPIUM 0.5 INH SOL 3 ML VIAL.NEB. NEB PRN (14:13)
[2021-03-31] MEDS ORDERED: AZITHROMYCIN IVPB 500 MG/250 ML BAG IVPB ONE (14:28)
[2021-03-31] MEDS: AZITHROMYCIN IVPB 500 MG/250 ML BAG IVPB SCH (14:46)
[2021-03-31] MEDS ORDERED: QUEtiapine FUMARATE 100 MG TABLET (FP) ONE (21:28)
[2021-03-31] MEDS ORDERED: QUEtiapine FUMARATE 200 MG TABLET PO SCH (22:00)
[2021-03-31] MEDS: INSULIN SLIDING SCALE (NOVOLOG) 1 VIAL SQ SCH (22:09)
[2021-04-01] MEDS ORDERED: LIDOCAINE 5% TOPICAL PATCH TP ONE (02:22)
[2021-04-01] MEDS: ACETAMINOPHEN 325 MG TABLET (FP) PO PRN ×3 (05:44→18:11)
[2021-04-01] MEDS: oxyCODONE HCL 5 MG TABLET PO PRN ×3 (05:45→18:10)
[2021-04-01] MEDS: INSULIN SLIDING SCALE (NOVOLOG) 1 VIAL SQ SCH ×4 (06:50→22:15)
[2021-04-01 07:22] LABS: HEMATOCRIT 40.8 % (32.4-45.2); HEMOGLOBIN 13.9 GM/dL (10.7-15.3); MCH 30.8 pg (25.7-33.7); MEAN CELL VOLUME 90.7 fl (80-96); MEAN PLT VOLUME 8.6 fl (7.5-11.1); PLATELET COUNT 230 10^3/uL (134-434); RDW 13.7 % (11.6-15.6); WHITE BLOOD COUNT 6.4 K/mm3 (4.0-10.0)
[2021-04-01 07:35] LABS: CALCIUM 8.4 mg/dL (8.5-10.1)
[2021-04-01 07:36] LABS: ALBUMIN 3.3 g/dl (3.4-5.0); BLOOD UREA NITROGEN 23.2 mg/dL (7-18)
[2021-04-01 07:37] LABS: MAGNESIUM 1.9 mg/dL (1.8-2.4)
[2021-04-01 07:39] LABS: CREATININE 0.7 mg/dL (0.55-1.3)
[2021-04-01 07:41] LABS: BILIRUBIN,TOTAL 0.3 mg/dL (0.2-1); TOT PROT 6.5 g/dl (6.4-8.2)
[2021-04-01] MEDS ORDERED: cefTRIAXone SODIUM 1 GM VIAL ONE (09:28)
[2021-04-01] MEDS ORDERED: QUEtiapine FUMARATE 25 MG TABLET ONE (09:28)
[2021-04-01] MEDS ORDERED: DEXTROSE 5%-WATER - 50 ML IVPB ONE (09:29)
[2021-04-01] MEDS: APIXABAN 2.5 MG TABLET PO SCH ×2 (09:39→21:45)
[2021-04-01] MEDS: CEFTRIAXONE 1 GM in DEXTROSE 5%-WATER - 50 ML IVPB SCH (09:39)
[2021-04-01] MEDS: amLODIPine BESYLATE 10 MG TABLET (FP) PO SCH (09:39)
[2021-04-01] MEDS: LABETALOL HCL 200 MG TABLET (FP) PO SCH ×2 (09:39→21:46)
[2021-04-01] MEDS: QUEtiapine FUMARATE 50 MG TABLET PO SCH (09:40)
[2021-04-01] MEDS: ESCITALOPRAM OXALATE 10 MG TABLET PO SCH (09:40)
[2021-04-01] MEDS: AZITHROMYCIN IVPB 500 MG/250 ML BAG IVPB SCH (10:18)
[2021-04-01] MEDS: COLLAGENASE CLOSTRIDIUM HIST. 30 GRAMS TUBE TP SCH (14:47)
[2021-04-01] MEDS ORDERED: QUEtiapine FUMARATE 100 MG TABLET (FP) PO SCH (21:36)
[2021-04-01] MEDS: QUEtiapine FUMARATE 100 MG TABLET (FP) PO SCH (21:45)
[2021-04-01] MEDS: LIDOCAINE PATCH REMOVAL MC SCH (22:15)
[2021-04-02] MEDS: ACETAMINOPHEN 325 MG TABLET (FP) PO PRN ×4 (03:50→22:44)
[2021-04-02] MEDS: oxyCODONE HCL 5 MG TABLET PO PRN ×4 (03:50→22:43)
[2021-04-02 07:21] LABS: HEMATOCRIT 40.9 % (32.4-45.2); HEMOGLOBIN 14.1 GM/dL (10.7-15.3); MCH 30.6 pg (25.7-33.7); MCHC 34.4 g/dl (32.0-36.0); MEAN CELL VOLUME 88.9 fl (80-96); MEAN PLT VOLUME 7.9 fl (7.5-11.1); PLATELET COUNT 214 10^3/uL (134-434); RDW 13.8 % (11.6-15.6)
[2021-04-02 07:47] LABS: CALCIUM 8.6 mg/dL (8.5-10.1)
[2021-04-02 07:48] LABS: BLOOD UREA NITROGEN 19.1 mg/dL (7-18)
[2021-04-02 07:52] LABS: CREATININE 0.7 mg/dL (0.55-1.3)
[2021-04-02] MEDS ORDERED: cefTRIAXone SODIUM 1 GM VIAL ONE (10:25)
[2021-04-02] MEDS ORDERED: DEXTROSE 5%-WATER - 50 ML IVPB ONE (10:25)
[2021-04-02] MEDS: AZITHROMYCIN IVPB 500 MG/250 ML BAG IVPB SCH (10:32)
[2021-04-02] MEDS: CEFTRIAXONE 1 GM in DEXTROSE 5%-WATER - 50 ML IVPB SCH (10:32)
[2021-04-02] MEDS: amLODIPine BESYLATE 10 MG TABLET (FP) PO SCH (10:33)
[2021-04-02] MEDS: LABETALOL HCL 200 MG TABLET (FP) PO SCH ×2 (10:34→22:06)
[2021-04-02] MEDS: COLLAGENASE CLOSTRIDIUM HIST. 30 GRAMS TUBE TP SCH (10:34)
[2021-04-02] MEDS: APIXABAN 2.5 MG TABLET PO SCH ×2 (10:34→22:06)
[2021-04-02] MEDS: ESCITALOPRAM OXALATE 10 MG TABLET PO SCH (10:34)
[2021-04-02] MEDS: INSULIN SLIDING SCALE (NOVOLOG) 1 VIAL SQ SCH ×4 (11:04→22:06)
[2021-04-02] MEDS: QUEtiapine FUMARATE 100 MG TABLET (FP) PO SCH (22:06)
[2021-04-02] MEDS: LIDOCAINE PATCH REMOVAL MC SCH (22:07)
[2021-04-03] MEDS: INSULIN SLIDING SCALE (NOVOLOG) 1 VIAL SQ SCH ×4 (06:32→22:49)
[2021-04-03] MEDS: ACETAMINOPHEN 325 MG TABLET (FP) PO PRN ×2 (06:33→12:38)
[2021-04-03] MEDS: oxyCODONE HCL 5 MG TABLET PO PRN ×3 (06:34→18:42)
[2021-04-03] MEDS ORDERED: DEXTROSE 5%-WATER - 50 ML IVPB ONE (09:50)
[2021-04-03] MEDS ORDERED: cefTRIAXone SODIUM 1 GM VIAL ONE (09:50)
[2021-04-03] MEDS: LABETALOL HCL 200 MG TABLET (FP) PO SCH ×2 (10:09→22:41)
[2021-04-03] MEDS: ESCITALOPRAM OXALATE 10 MG TABLET PO SCH (10:09)
[2021-04-03] MEDS: amLODIPine BESYLATE 10 MG TABLET (FP) PO SCH (10:09)
[2021-04-03] MEDS: AZITHROMYCIN IVPB 500 MG/250 ML BAG IVPB SCH (10:09)
[2021-04-03] MEDS: CEFTRIAXONE 1 GM in DEXTROSE 5%-WATER - 50 ML IVPB SCH (10:09)
[2021-04-03] MEDS: COLLAGENASE CLOSTRIDIUM HIST. 30 GRAMS TUBE TP SCH (10:09)
[2021-04-03] MEDS: APIXABAN 2.5 MG TABLET PO SCH ×2 (10:09→22:41)
[2021-04-03] MEDS: QUEtiapine FUMARATE 100 MG TABLET (FP) PO SCH (22:41)
[2021-04-03] MEDS: LIDOCAINE PATCH REMOVAL MC SCH (22:41)
[2021-04-04] MEDS: oxyCODONE HCL 5 MG TABLET PO PRN (00:42)
[2021-04-04] MEDS: ACETAMINOPHEN 325 MG TABLET (FP) PO PRN ×3 (00:43→13:26)
[2021-04-04] MEDS ORDERED: oxyCODONE HCL 5 MG TABLET PO ONE ×2 (06:19→14:45)
[2021-04-04] MEDS: INSULIN SLIDING SCALE (NOVOLOG) 1 VIAL SQ SCH ×3 (06:44→16:34)
[2021-04-04 08:09] LABS: HEMATOCRIT 41.1 % (32.4-45.2); MCH 30.7 pg (25.7-33.7); MEAN CELL VOLUME 90.3 fl (80-96); MEAN PLT VOLUME 8.6 fl (7.5-11.1); PLATELET COUNT 224 10^3/uL (134-434); RBC 4.55 M/mm3 (3.60-5.2); RDW 13.1 % (11.6-15.6); WHITE BLOOD COUNT 6.6 K/mm3 (4.0-10.0)
[2021-04-04 08:26] LABS: BLOOD UREA NITROGEN 20.3 mg/dL (7-18); CALCIUM 9.1 mg/dL (8.5-10.1)
[2021-04-04 08:30] LABS: CREATININE 0.6 mg/dL (0.55-1.3)
[2021-04-04] MEDS ORDERED: cefTRIAXone SODIUM 1 GM VIAL ONE (10:19)
[2021-04-04] MEDS ORDERED: PT OWN MED DRAWER 7, Y5N ONE (10:19)
[2021-04-04] MEDS ORDERED: DEXTROSE 5%-WATER - 50 ML IVPB ONE (10:19)
[2021-04-04] MEDS: amLODIPine BESYLATE 10 MG TABLET (FP) PO SCH (10:25)
[2021-04-04] MEDS: ESCITALOPRAM OXALATE 10 MG TABLET PO SCH (10:25)
[2021-04-04] MEDS: CEFTRIAXONE 1 GM in DEXTROSE 5%-WATER - 50 ML IVPB SCH (10:26)
[2021-04-04] MEDS: APIXABAN 2.5 MG TABLET PO SCH (10:26)
[2021-04-04] MEDS: LABETALOL HCL 200 MG TABLET (FP) PO SCH (10:26)
[2021-04-04] MEDS: AZITHROMYCIN IVPB 500 MG/250 ML BAG IVPB SCH (11:16)
[2021-04-04] MEDS: COLLAGENASE CLOSTRIDIUM HIST. 30 GRAMS TUBE TP SCH (11:17)
[2021-04-04 13:34] VITALS: BP 134/68; PULSE 76; TEMP 98.1
[2021-04-04 15:00] VITALS: BMI 50.1
== END 2021-04-04 17:41 | disposition home or self-care (01) | DRG 139 ==
LOC: JER 13:19 → UNDOADMOB 16:17 → JERBED 16:17 → INTOOBSV 16:17 → JERBED 03-31 15:33 → J4S 03-31 22:16 → OBSVTOIN 04-04 09:37
DX: J18.9 Pneumonia, unspecified organism (principal); I10 Essential (primary) hypertension; E11.40 Type 2 diabetes mellitus with diabetic neuropathy, unspecified; E66.01 Morbid (severe) obesity due to excess calories; Z68.43 Body mass index [BMI] 50.0-59.9, adult; F41.8 Other specified anxiety disorders; J44.9 Chronic obstructive pulmonary disease, unspecified; E11.621 Type 2 diabetes mellitus with foot ulcer; L97.528 Non-pressure chronic ulcer of other part of left foot with other specified severity; E78.5 Hyperlipidemia, unspecified; G47.30 Sleep apnea, unspecified; R05 Cough; K21.9 Gastro-esophageal reflux disease without esophagitis; R09.02 Hypoxemia; M54.5 Low back pain; F19.10 Other psychoactive substance abuse, uncomplicated; Z87.442 Personal history of urinary calculi; Z86.711 Personal history of pulmonary embolism; Z86.718 Personal history of other venous thrombosis and embolism
CPT/HCPCS: 36415; 71045-TC-FY; 71275-TC; 73630-TC-LT; 80048; 80053; 81003; 82248; 82728; 82803; 82962; 83615; 83735; 84478; 84484; 84702; 85025; 85027; 85610; 85730; 86140; 87040; 87804; 87899; 93005; 93010; 94010; 94761; 99285-25; C9803; G0378; Q9967; U0003; U0005

== ENCOUNTER 2021-06-01 10:09 | Inpatient (IN) | payer OTHER ==
[2021-06-01] MEDS ORDERED: VANCOMYCIN 1 GM in D5W (PRE-DOCKED) 1,000 MG/250 ML IVPB ONE (11:39)
[2021-06-01] MEDS ORDERED: PIPERACILLIN/TAZOB 3.375 GM 3.375 GM in DEXTROSE 5%-WATER - 50 ML IVPB ONE (11:41)
[2021-06-01] MEDS ORDERED: PIPERACILLIN/TAZOB 3.375 GM 3.375 GM/50 ML BAG IVPB ONE ×3 (12:13→21:12)
[2021-06-01] MEDS ORDERED: VANCOMYCIN 1 GRAM (PRE-DOCKED) 1,000 MG/250 ML BAG IVPB ONE (12:13)
[2021-06-01 12:48] LABS: BLOOD UREA NITROGEN 16.2 mg/dL (7-18); CALCIUM 10.1 mg/dL (8.5-10.1)
[2021-06-01 12:49] LABS: ALBUMIN 3.7 g/dl (3.4-5.0)
[2021-06-01 12:53] LABS: CREATININE 0.8 mg/dL (0.55-1.3); TOT PROT 7.3 g/dl (6.4-8.2)
[2021-06-01 12:55] LABS: BILIRUBIN,TOTAL 0.4 mg/dL (0.2-1)
[2021-06-01 13:46] LABS: BASO % 0.9 % (0-2.0); EOS % 2.2 % (0-4.5); HEMATOCRIT 43.4 % (32.4-45.2); HEMOGLOBIN 14.6 GM/dL (10.7-15.3); LYMPH % 22.4 % (8-40); MCH 30.2 pg (25.7-33.7); MCHC 33.7 g/dl (32.0-36.0); MEAN CELL VOLUME 89.7 fl (80-96); MEAN PLT VOLUME 8.8 fl (7.5-11.1); MONO % 8.2 % (3.8-10.2); NEUT % 66.3 % (42.8-82.8); PLATELET COUNT 246 10^3/uL (134-434); RBC 4.84 M/mm3 (3.60-5.2); RDW 13.3 % (11.6-15.6); WHITE BLOOD COUNT 8.7 K/mm3 (4.0-10.0)
[2021-06-01 15:42] LABS: LACTIC ACID 3.6 mmol/L (0.4-2.0)
[2021-06-01] MEDS ORDERED: ACETAMINOPHEN 1000 MG/100 ML VIAL IVPB ONE (15:52)
[2021-06-01] MEDS ORDERED: VANCOMYCIN HCL 1,500 MG in DEXTROSE 5%-WATER - 250 ML IVPB SCH (16:00)
[2021-06-01] MEDS ORDERED: ACETAMINOPHEN INJECTION 100 ML IVPB ONE (16:00)
[2021-06-01 16:30] LABS: EPI CELLS 28 /uL (0-25.1); HYALINE CASTS 1 /uL (0-3.1); URINE APPEARANCE CLEAR; URINE BACTERIA 157 /uL (0-1359); URINE BILIRUBIN NEGATIVE (NEGATIVE); URINE COLOR YELLOW; URINE GLUCOSE (UA) NEGATIVE (NEGATIVE); URINE KETONE NEGATIVE (NEGATIVE); URINE LEUK ESTERASE TRACE (NEGATIVE); URINE NITRITE NEGATIVE (NEGATIVE); URINE PROTEIN NEGATIVE (NEGATIVE); URINE RBC 3 /uL (0-23.9); URINE UROBILINOGEN 0.2 mg/dL (0.2-1.0); URINE WBC 28 /uL (0-25.8)
[2021-06-01] MEDS: LACTATED RINGERS SOLUTION 1,000 ML/1,000 ML INFUS.BAG IV SCH (16:30)
[2021-06-01] MEDS: PIPERACILLIN/TAZOB 3.375 GM 3.375 GM in DEXTROSE 5%-WATER - 50 ML IVPB SCH ×2 (16:51→21:30)
[2021-06-01] MEDS: INSULIN SLIDING SCALE (NOVOLOG) 1 VIAL SQ SCH ×2 (17:07→22:35)
[2021-06-01] MEDS ORDERED: morphine SULFATE 4 MG/ML VIAL IVPUSH ONE (18:02)
[2021-06-01] MEDS ORDERED: morphine CARPU-JECT 2 MG/1 ML DISP.SYRIN IVPUSH ONE (18:02)
[2021-06-01] MEDS ORDERED: morphine SULFATE 4 MG/ML VIAL ONE (18:10)
[2021-06-01] MEDS ORDERED: oxyCODONE HCL 5 MG TABLET PO ONE (19:50)
[2021-06-01] MEDS ORDERED: traMADol HCL 50 MG TABLET PO ONE (19:52)
[2021-06-01] MEDS ORDERED: traMADol HCL 50 MG TABLET ONE (20:06)
[2021-06-01 21:25] LABS: LACTIC ACID 3.2 mmol/L (0.4-2.0)
[2021-06-01] MEDS ORDERED: LABETALOL HCL 200 MG TABLET (FP) PO SCH (22:00)
[2021-06-01] MEDS ORDERED: LABETALOL HCL 100 MG TABLET (FP) ONE (22:26)
[2021-06-01] MEDS: APIXABAN 2.5 MG TABLET PO SCH (22:34)
[2021-06-01] MEDS: LABETALOL HCL 100 MG TABLET (FP) PO SCH (22:59)
[2021-06-02] MEDS ORDERED: VANCOMYCIN PREMIX 1.5 GM 1,500 MG/300 ML BAG IVPB SCH (01:00)
[2021-06-02] MEDS ORDERED: morphine SULFATE 4 MG/ML VIAL IVPUSH ONE (02:15)
[2021-06-02] MEDS ORDERED: morphine SULFATE 4 MG/ML VIAL ONE (02:25)
[2021-06-02] MEDS ORDERED: DEXTROSE 5%-WATER - 50 ML IVPB ONE ×3 (04:34→17:09)
[2021-06-02] MEDS ORDERED: PIPERACILLIN/TAZOBACTAM 3.375 GM VIAL IVPB ONE ×3 (04:34→17:08)
[2021-06-02] MEDS: PIPERACILLIN/TAZOB 3.375 GM 3.375 GM in DEXTROSE 5%-WATER - 50 ML IVPB SCH ×3 (04:42→17:19)
[2021-06-02] MEDS: INSULIN SLIDING SCALE (NOVOLOG) 1 VIAL SQ SCH ×4 (07:06→22:08)
[2021-06-02 08:22] LABS: MCH 30.3 pg (25.7-33.7); MCHC 33.5 g/dl (32.0-36.0); MEAN CELL VOLUME 90.7 fl (80-96); MEAN PLT VOLUME 8.9 fl (7.5-11.1); PLATELET COUNT 270 10^3/uL (134-434); RBC 4.96 M/mm3 (3.60-5.2); RDW 13.3 % (11.6-15.6); WHITE BLOOD COUNT 7.9 K/mm3 (4.0-10.0)
[2021-06-02] MEDS ORDERED: ACETAMINOPHEN 1000 MG/100 ML VIAL IVPB ONE (08:34)
[2021-06-02] MEDS ORDERED: morphine SULFATE 4 MG/ML VIAL IVPUSH PRN (08:35)
[2021-06-02 08:55] LABS: CALCIUM 9.3 mg/dL (8.5-10.1)
[2021-06-02 08:56] LABS: ALBUMIN 3.6 g/dl (3.4-5.0); BLOOD UREA NITROGEN 16.6 mg/dL (7-18)
[2021-06-02 08:59] LABS: CREATININE 0.8 mg/dL (0.55-1.3); PHOSPHOROUS 4.8 mg/dL (2.5-4.9)
[2021-06-02 09:00] LABS: BILIRUBIN,TOTAL 0.5 mg/dL (0.2-1)
[2021-06-02] MEDS: APIXABAN 2.5 MG TABLET PO SCH ×2 (10:30→22:08)
[2021-06-02] MEDS: LABETALOL HCL 100 MG TABLET (FP) PO SCH ×2 (10:30→22:08)
[2021-06-02] MEDS: QUEtiapine FUMARATE 200 MG TABLET PO SCH (10:30)
[2021-06-02] MEDS: amLODIPine BESYLATE 10 MG TABLET (FP) PO SCH (10:30)
[2021-06-02] MEDS: LACTATED RINGERS SOLUTION 1,000 ML/1,000 ML INFUS.BAG IV SCH (14:45)
[2021-06-02] MEDS ORDERED: PT OWN MED DRAWER 7, Y5N ONE ×2 (16:18→18:01)
[2021-06-02] MEDS: ACETAMINOPHEN 1000 MG/100 ML VIAL IVPB PRN (16:32)
[2021-06-02] MEDS: COLLAGENASE CLOSTRIDIUM HIST. 30 GRAMS TUBE TP SCH (18:55)
[2021-06-03] MEDS ORDERED: DEXTROSE 5%-WATER - 50 ML IVPB ONE ×3 (01:54→17:47)
[2021-06-03] MEDS ORDERED: PIPERACILLIN/TAZOBACTAM 3.375 GM VIAL IVPB ONE ×3 (01:54→17:47)
[2021-06-03] MEDS: PIPERACILLIN/TAZOB 3.375 GM 3.375 GM in DEXTROSE 5%-WATER - 50 ML IVPB SCH ×3 (02:31→17:51)
[2021-06-03] MEDS: INSULIN SLIDING SCALE (NOVOLOG) 1 VIAL SQ SCH ×4 (06:29→21:16)
[2021-06-03] MEDS: ACETAMINOPHEN 1000 MG/100 ML VIAL IVPB PRN (07:12)
[2021-06-03] MEDS: morphine SULFATE 4 MG/ML VIAL IVPUSH PRN ×3 (09:07→21:14)
[2021-06-03 09:13] LABS: HEMATOCRIT 43.9 % (32.4-45.2); HEMOGLOBIN 15.3 GM/dL (10.7-15.3); MCH 30.8 pg (25.7-33.7); MCHC 34.8 g/dl (32.0-36.0); MEAN CELL VOLUME 88.6 fl (80-96); MEAN PLT VOLUME 8.1 fl (7.5-11.1); PLATELET COUNT 251 10^3/uL (134-434); RBC 4.95 M/mm3 (3.60-5.2); RDW 13.3 % (11.6-15.6); WHITE BLOOD COUNT 7.1 K/mm3 (4.0-10.0)
[2021-06-03] MEDS: LABETALOL HCL 100 MG TABLET (FP) PO SCH ×2 (09:19→21:16)
[2021-06-03] MEDS: amLODIPine BESYLATE 10 MG TABLET (FP) PO SCH (09:19)
[2021-06-03] MEDS: APIXABAN 2.5 MG TABLET PO SCH ×2 (09:19→21:15)
[2021-06-03] MEDS: QUEtiapine FUMARATE 200 MG TABLET PO SCH (09:19)
[2021-06-03 09:36] LABS: BLOOD UREA NITROGEN 12.3 mg/dL (7-18); CALCIUM 8.9 mg/dL (8.5-10.1)
[2021-06-03 09:40] LABS: CREATININE 0.7 mg/dL (0.55-1.3); PHOSPHOROUS 3.4 mg/dL (2.5-4.9)
[2021-06-03] MEDS ORDERED: PT OWN MED DRAWER 7, Y5N ONE (12:49)
[2021-06-03] MEDS: COLLAGENASE CLOSTRIDIUM HIST. 30 GRAMS TUBE TP SCH (13:02)
[2021-06-03] MEDS ORDERED: INSULIN (NOVOLOG) ASPART 100 UNITS/ML 10ML VIAL ONE (21:02)
[2021-06-03] MEDS: INSULIN (LEVEMIR) 100 UNITS/ML UNITS SQ SCH (21:17)
[2021-06-04] MEDS ORDERED: PIPERACILLIN/TAZOBACTAM 3.375 GM VIAL IVPB ONE ×3 (02:22→17:09)
[2021-06-04] MEDS ORDERED: DEXTROSE 5%-WATER - 50 ML IVPB ONE ×3 (02:22→17:10)
[2021-06-04] MEDS: PIPERACILLIN/TAZOB 3.375 GM 3.375 GM in DEXTROSE 5%-WATER - 50 ML IVPB SCH ×5 (02:49→17:11)
[2021-06-04] MEDS: morphine SULFATE 4 MG/ML VIAL IVPUSH PRN ×4 (03:15→21:28)
[2021-06-04] MEDS: INSULIN (LEVEMIR) 100 UNITS/ML UNITS SQ SCH ×2 (06:10→21:19)
[2021-06-04] MEDS: INSULIN SLIDING SCALE (NOVOLOG) 1 VIAL SQ SCH ×4 (06:11→21:18)
[2021-06-04] MEDS: LABETALOL HCL 100 MG TABLET (FP) PO SCH ×2 (09:26→21:17)
[2021-06-04] MEDS: APIXABAN 2.5 MG TABLET PO SCH ×2 (09:26→21:17)
[2021-06-04] MEDS: amLODIPine BESYLATE 10 MG TABLET (FP) PO SCH (09:26)
[2021-06-04] MEDS: COLLAGENASE CLOSTRIDIUM HIST. 30 GRAMS TUBE TP SCH (09:27)
[2021-06-04] MEDS: QUEtiapine FUMARATE 200 MG TABLET PO SCH (09:27)
[2021-06-04 10:00] LABS: HEMATOCRIT 42.4 % (32.4-45.2); HEMOGLOBIN 14.7 GM/dL (10.7-15.3); MCH 31.1 pg (25.7-33.7); MCHC 34.6 g/dl (32.0-36.0); MEAN CELL VOLUME 89.9 fl (80-96); MEAN PLT VOLUME 8.8 fl (7.5-11.1); PLATELET COUNT 265 10^3/uL (134-434); RBC 4.71 M/mm3 (3.60-5.2); RDW 13.1 % (11.6-15.6); WHITE BLOOD COUNT 7.5 K/mm3 (4.0-10.0)
[2021-06-04 10:22] LABS: BLOOD UREA NITROGEN 17.2 mg/dL (7-18); CALCIUM 8.6 mg/dL (8.5-10.1)
[2021-06-04 10:23] LABS: MAGNESIUM 1.9 mg/dL (1.8-2.4)
[2021-06-04 10:26] LABS: CREATININE 0.8 mg/dL (0.55-1.3)
[2021-06-04] MEDS ORDERED: INSULIN (NOVOLOG) ASPART 100 UNITS/ML 10ML VIAL ONE ×2 (16:52→21:08)
[2021-06-04] MEDS: Insulin (LOG) Aspart 100 UNITS/ML VIAL SQ SCH ×2 (18:11→18:31)
[2021-06-04] MEDS ORDERED: Insulin (LOG) Aspart 100 UNITS/ML VIAL SQ ONE (19:00)
[2021-06-04 20:23] VITALS: BMI 49.1
[2021-06-05] MEDS ORDERED: PIPERACILLIN/TAZOBACTAM 3.375 GM VIAL IVPB ONE ×3 (02:18→17:35)
[2021-06-05] MEDS ORDERED: DEXTROSE 5%-WATER - 50 ML IVPB ONE ×3 (02:18→17:35)
[2021-06-05] MEDS: PIPERACILLIN/TAZOB 3.375 GM 3.375 GM in DEXTROSE 5%-WATER - 50 ML IVPB SCH ×3 (02:23→17:37)
[2021-06-05] MEDS: morphine SULFATE 4 MG/ML VIAL IVPUSH PRN ×4 (03:35→22:12)
[2021-06-05] MEDS: Insulin (LOG) Aspart 100 UNITS/ML VIAL SQ SCH ×4 (06:26→16:04)
[2021-06-05] MEDS: INSULIN SLIDING SCALE (NOVOLOG) 1 VIAL SQ SCH ×4 (06:26→22:19)
[2021-06-05] MEDS: INSULIN (LEVEMIR) 100 UNITS/ML UNITS SQ SCH ×2 (06:28→22:10)
[2021-06-05 08:27] LABS: HEMATOCRIT 40.9 % (32.4-45.2); HEMOGLOBIN 13.7 GM/dL (10.7-15.3); MCH 30.4 pg (25.7-33.7); MCHC 33.4 g/dl (32.0-36.0); MEAN CELL VOLUME 91.1 fl (80-96); MEAN PLT VOLUME 8.2 fl (7.5-11.1); PLATELET COUNT 232 10^3/uL (134-434); RBC 4.49 M/mm3 (3.60-5.2); RDW 13.2 % (11.6-15.6); WHITE BLOOD COUNT 6.4 K/mm3 (4.0-10.0)
[2021-06-05 08:56] LABS: CHLORIDE 106 mmol/L (98-107); SODIUM 140 mmol/L (136-145)
[2021-06-05] MEDS ORDERED: INSULIN (LEVEMIR) 100 UNITS/ML UNITS SQ ONE (09:00)
[2021-06-05 09:13] LABS: CALCIUM 8.8 mg/dL (8.5-10.1)
[2021-06-05 09:14] LABS: ANION GAP 8 MMOL/L (8-16); BLOOD UREA NITROGEN 14.2 mg/dL (7-18); CO2 26 mmol/L (21-32); GLUCOSE,RANDOM 189 mg/dL (74-106)
[2021-06-05 09:17] LABS: CREATININE 0.7 mg/dL (0.55-1.3)
[2021-06-05 09:18] LABS: PHOSPHOROUS 3.8 mg/dL (2.5-4.9)
[2021-06-05] MEDS: QUEtiapine FUMARATE 200 MG TABLET PO SCH (09:50)
[2021-06-05] MEDS: LABETALOL HCL 100 MG TABLET (FP) PO SCH ×2 (09:50→22:09)
[2021-06-05] MEDS: ZINC SULFATE 220 MG CAPSULE (FP) PO SCH (09:50)
[2021-06-05] MEDS: APIXABAN 2.5 MG TABLET PO SCH ×2 (09:50→22:09)
[2021-06-05] MEDS: ASCORBIC ACID 250 MG TABLET (FP) PO SCH (09:50)
[2021-06-05] MEDS: amLODIPine BESYLATE 10 MG TABLET (FP) PO SCH (09:50)
[2021-06-05] MEDS: MULTIVITAMINS THER W-MINERALS COMBO TABLET (FP) PO SCH (09:50)
[2021-06-05] MEDS: COLLAGENASE CLOSTRIDIUM HIST. 30 GRAMS TUBE TP SCH (09:50)
[2021-06-05] MEDS ORDERED: ZINC SULFATE 220 MG CAPSULE (FP) PO SCH (10:00)
[2021-06-05] MEDS ORDERED: ASCORBIC ACID 250 MG TABLET (FP) PO SCH (10:00)
[2021-06-05] MEDS ORDERED: MULTIVITAMINS THER W-MINERALS COMBO TABLET (FP) PO SCH (10:00)
[2021-06-05] MEDS ORDERED: Insulin (LOG) Aspart 100 UNITS/ML VIAL SQ ONE (18:15)
[2021-06-06] MEDS ORDERED: PIPERACILLIN/TAZOBACTAM 3.375 GM VIAL IVPB ONE ×3 (00:51→18:00)
[2021-06-06] MEDS ORDERED: DEXTROSE 5%-WATER - 50 ML IVPB ONE ×3 (00:52→18:01)
[2021-06-06] MEDS: PIPERACILLIN/TAZOB 3.375 GM 3.375 GM in DEXTROSE 5%-WATER - 50 ML IVPB SCH ×3 (01:06→18:18)
[2021-06-06] MEDS: morphine SULFATE 4 MG/ML VIAL IVPUSH PRN (04:03)
[2021-06-06] MEDS: INSULIN (LEVEMIR) 100 UNITS/ML UNITS SQ SCH ×2 (06:31→21:26)
[2021-06-06] MEDS: Insulin (LOG) Aspart 100 UNITS/ML VIAL SQ SCH ×3 (06:32→16:36)
[2021-06-06] MEDS: INSULIN SLIDING SCALE (NOVOLOG) 1 VIAL SQ SCH ×4 (06:33→21:26)
[2021-06-06] MEDS ORDERED: PT OWN MED DRAWER 7, Y5N ONE ×2 (09:22→16:35)
[2021-06-06 09:23] LABS: HEMATOCRIT 40.5 % (32.4-45.2); HEMOGLOBIN 13.5 GM/dL (10.7-15.3); MCH 30.3 pg (25.7-33.7); MCHC 33.2 g/dl (32.0-36.0); MEAN CELL VOLUME 91.2 fl (80-96); MEAN PLT VOLUME 8.7 fl (7.5-11.1); PLATELET COUNT 252 10^3/uL (134-434); RBC 4.44 M/mm3 (3.60-5.2); RDW 13.1 % (11.6-15.6); WHITE BLOOD COUNT 6.8 K/mm3 (4.0-10.0)
[2021-06-06] MEDS: MULTIVITAMINS THER W-MINERALS COMBO TABLET (FP) PO SCH (09:27)
[2021-06-06] MEDS: LABETALOL HCL 100 MG TABLET (FP) PO SCH ×2 (09:27→21:26)
[2021-06-06] MEDS: amLODIPine BESYLATE 10 MG TABLET (FP) PO SCH (09:27)
[2021-06-06] MEDS: ZINC SULFATE 220 MG CAPSULE (FP) PO SCH (09:27)
[2021-06-06] MEDS: APIXABAN 2.5 MG TABLET PO SCH ×2 (09:27→21:26)
[2021-06-06] MEDS: QUEtiapine FUMARATE 200 MG TABLET PO SCH (09:28)
[2021-06-06] MEDS: ASCORBIC ACID 250 MG TABLET (FP) PO SCH (09:28)
[2021-06-06 09:31] LABS: CALCIUM 9.3 mg/dL (8.5-10.1)
[2021-06-06] MEDS: COLLAGENASE CLOSTRIDIUM HIST. 30 GRAMS TUBE TP SCH (09:31)
[2021-06-06 09:32] LABS: BLOOD UREA NITROGEN 14.1 mg/dL (7-18)
[2021-06-06 09:35] LABS: CREATININE 0.7 mg/dL (0.55-1.3); PHOSPHOROUS 4.1 mg/dL (2.5-4.9)
[2021-06-06] MEDS ORDERED: ACETAMINOPHEN 1000 MG/100 ML VIAL IVPB PRN (11:49)
[2021-06-06] MEDS ORDERED: KETOROLAC TROMETHAMINE 15 MG/ML VIAL IVPUSH PRN (11:49)
[2021-06-06] MEDS: KETOROLAC TROMETHAMINE 15 MG/ML VIAL IVPUSH PRN ×2 (12:29→20:40)
[2021-06-06] MEDS ORDERED: INSULIN (NOVOLOG) ASPART 100 UNITS/ML 10ML VIAL ONE (21:20)
[2021-06-07] MEDS ORDERED: PIPERACILLIN/TAZOBACTAM 3.375 GM VIAL IVPB ONE ×2 (02:52→09:14)
[2021-06-07] MEDS ORDERED: DEXTROSE 5%-WATER - 50 ML IVPB ONE ×2 (02:52→09:14)
[2021-06-07] MEDS: PIPERACILLIN/TAZOB 3.375 GM 3.375 GM in DEXTROSE 5%-WATER - 50 ML IVPB SCH ×2 (02:55→09:19)
[2021-06-07] MEDS: KETOROLAC TROMETHAMINE 15 MG/ML VIAL IVPUSH PRN (05:11)
[2021-06-07] MEDS ORDERED: PT OWN MED DRAWER 7, Y5N ONE ×3 (06:00→17:07)
[2021-06-07] MEDS: INSULIN SLIDING SCALE (NOVOLOG) 1 VIAL SQ SCH ×3 (06:29→17:18)
[2021-06-07] MEDS: Insulin (LOG) Aspart 100 UNITS/ML VIAL SQ SCH ×3 (06:29→17:18)
[2021-06-07] MEDS: INSULIN (LEVEMIR) 100 UNITS/ML UNITS SQ SCH (06:31)
[2021-06-07] MEDS: APIXABAN 2.5 MG TABLET PO SCH (09:19)
[2021-06-07] MEDS: amLODIPine BESYLATE 10 MG TABLET (FP) PO SCH (09:19)
[2021-06-07] MEDS: LABETALOL HCL 100 MG TABLET (FP) PO SCH (09:19)
[2021-06-07] MEDS: QUEtiapine FUMARATE 200 MG TABLET PO SCH (09:19)
[2021-06-07] MEDS: ASCORBIC ACID 250 MG TABLET (FP) PO SCH (09:19)
[2021-06-07] MEDS: ZINC SULFATE 220 MG CAPSULE (FP) PO SCH (09:19)
[2021-06-07] MEDS: MULTIVITAMINS THER W-MINERALS COMBO TABLET (FP) PO SCH (09:19)
[2021-06-07] MEDS ORDERED: INSULIN (LEVEMIR) 100 UNITS/ML UNITS SQ SCH (09:38)
[2021-06-07 11:12] LABS: HEMATOCRIT 42.4 % (32.4-45.2); HEMOGLOBIN 14.1 GM/dL (10.7-15.3); MCH 30.1 pg (25.7-33.7); MCHC 33.3 g/dl (32.0-36.0); MEAN CELL VOLUME 90.4 fl (80-96); MEAN PLT VOLUME 8.7 fl (7.5-11.1); PLATELET COUNT 263 10^3/uL (134-434); RBC 4.69 M/mm3 (3.60-5.2); WHITE BLOOD COUNT 7.8 K/mm3 (4.0-10.0)
[2021-06-07] MEDS ORDERED: INSULIN (NOVOLOG) ASPART 100 UNITS/ML 10ML VIAL ONE ×2 (11:42→17:13)
[2021-06-07] MEDS: COLLAGENASE CLOSTRIDIUM HIST. 30 GRAMS TUBE TP SCH (14:15)
[2021-06-07 14:16] VITALS: BP 154/99; PULSE 109; TEMP 98.6
[2021-06-07 17:35] LABS: BLOOD UREA NITROGEN 22.1 mg/dL (7-18); CALCIUM 9.8 mg/dL (8.5-10.1); CREATININE 0.8 mg/dL (0.55-1.3); MAGNESIUM 1.9 mg/dL (1.8-2.4); PHOSPHOROUS 4.3 mg/dL (2.5-4.9)
== END 2021-06-07 18:03 | disposition home or self-care (01) | DRG 383 ==
LOC: JER 10:09 → JERBED 12:00 → J6S 21:40
PROVIDERS: ADMIT Internal Medicine; ATTEND Internal Medicine
DX: L03.116 Cellulitis of left lower limb (principal); E11.40 Type 2 diabetes mellitus with diabetic neuropathy, unspecified; E11.621 Type 2 diabetes mellitus with foot ulcer; E11.65 Type 2 diabetes mellitus with hyperglycemia; E66.01 Morbid (severe) obesity due to excess calories; Z68.43 Body mass index [BMI] 50.0-59.9, adult; G47.33 Obstructive sleep apnea (adult) (pediatric); Z68.42 Body mass index [BMI] 45.0-49.9, adult; K21.9 Gastro-esophageal reflux disease without esophagitis
CPT/HCPCS: 36415; 71046-TC-FY; 73630-TC-LT; 73718-TC-LT; 80048; 80053; 81003; 82962; 83036; 83605; 83735; 84100; 85025; 85027; 85651; 86140; 87040; 87070; 87186; 87205; 97116-GP; 97161-GP; 99285-25; C9803; G0463-25; J0131; U0003; U0005

== ENCOUNTER 2021-06-27 09:36 | Inpatient (IN) | payer OTHER ==
[2021-06-27] MEDS ORDERED: morphine CARPU-JECT 2 MG/1 ML DISP.SYRIN IVPUSH ONE (10:56)
[2021-06-27] MEDS ORDERED: PIPERACILLIN/TAZOB 4.5 GM 4.5 GM in DEXTROSE 5%-WATER 100 ML IVPB ONE (10:57)
[2021-06-27] MEDS ORDERED: VANCOMYCIN 1 GM in D5W (PRE-DOCKED) 1,000 MG/250 ML IVPB ONE (10:57)
[2021-06-27] MEDS ORDERED: VANCOMYCIN 1 GRAM (PRE-DOCKED) 1,000 MG/250 ML BAG IVPB ONE (12:23)
[2021-06-27] MEDS ORDERED: PIPERACILLIN/TAZOB 4.5 GM 4.5 GM/100 ML BAG IVPB ONE (12:23)
[2021-06-27 13:08] LABS: BASO % 0.8 % (0-2.0); EOS % 2.9 % (0-4.5); HEMATOCRIT 44.3 % (32.4-45.2); HEMOGLOBIN 14.8 GM/dL (10.7-15.3); MCH 29.9 pg (25.7-33.7); MCHC 33.4 g/dl (32.0-36.0); MEAN CELL VOLUME 89.5 fl (80-96); MEAN PLT VOLUME 8.5 fl (7.5-11.1); MONO % 7.9 % (3.8-10.2); NEUT % 64.4 % (42.8-82.8); PLATELET COUNT 239 10^3/uL (134-434); RBC 4.96 M/mm3 (3.60-5.2); RDW 13.3 % (11.6-15.6); WHITE BLOOD COUNT 7.5 K/mm3 (4.0-10.0)
[2021-06-27 13:12] LABS: ALBUMIN 3.7 g/dl (3.4-5.0); CALCIUM 9.5 mg/dL (8.5-10.1)
[2021-06-27 13:15] LABS: CREATININE 0.7 mg/dL (0.55-1.3)
[2021-06-27 13:16] LABS: BILIRUBIN,TOTAL 0.4 mg/dL (0.2-1); TOT PROT 7.3 g/dl (6.4-8.2)
[2021-06-27] MEDS ORDERED: ACETAMINOPHEN 1000 MG/100 ML VIAL IVPB PRN (17:55)
[2021-06-27] MEDS ORDERED: ACETAMINOPHEN INJECTION 100 ML IVPB ONE (20:24)
[2021-06-27] MEDS ORDERED: APIXABAN 2.5 MG TABLET ONE (21:57)
[2021-06-27] MEDS ORDERED: PIPERACILLIN/TAZOB 3.375 GM 3.375 GM/50 ML BAG IVPB ONE (21:57)
[2021-06-27] MEDS: QUEtiapine FUMARATE 200 MG TABLET PO SCH (22:06)
[2021-06-27] MEDS: LABETALOL HCL 200 MG TABLET (FP) PO SCH (22:07)
[2021-06-27] MEDS: APIXABAN 2.5 MG TABLET PO SCH (22:07)
[2021-06-27] MEDS: INSULIN SLIDING SCALE (NOVOLOG) 1 VIAL SQ SCH (22:34)
[2021-06-27] MEDS: PIPERACILLIN/TAZOB 3.375 GM 3.375 GM in DEXTROSE 5%-WATER - 50 ML IVPB SCH (22:49)
[2021-06-28] MEDS ORDERED: PIPERACILLIN/TAZOBACTAM 3.375 GM VIAL IVPB ONE ×2 (04:54→10:44)
[2021-06-28] MEDS ORDERED: DEXTROSE 5%-WATER - 50 ML IVPB ONE ×3 (04:54→15:34)
[2021-06-28] MEDS: PIPERACILLIN/TAZOB 3.375 GM 3.375 GM in DEXTROSE 5%-WATER - 50 ML IVPB SCH ×3 (05:03→19:48)
[2021-06-28 05:04] VITALS: BMI 51.2
[2021-06-28] MEDS: INSULIN SLIDING SCALE (NOVOLOG) 1 VIAL SQ SCH ×4 (06:55→21:28)
[2021-06-28] MEDS ORDERED: INSULIN (NOVOLOG) ASPART 100 UNITS/ML 10ML VIAL ONE ×2 (06:55→21:14)
[2021-06-28 08:45] LABS: BASO % 0.7 % (0-2.0); EOS % 4.7 % (0-4.5); HEMATOCRIT 41.7 % (32.4-45.2); HEMOGLOBIN 13.9 GM/dL (10.7-15.3); LYMPH % 27.5 % (8-40); MCH 29.9 pg (25.7-33.7); MCHC 33.4 g/dl (32.0-36.0); MEAN CELL VOLUME 89.3 fl (80-96); MEAN PLT VOLUME 8.5 fl (7.5-11.1); MONO % 8.8 % (3.8-10.2); NEUT % 58.3 % (42.8-82.8); PLATELET COUNT 224 10^3/uL (134-434); RBC 4.67 M/mm3 (3.60-5.2); RDW 13.1 % (11.6-15.6); WHITE BLOOD COUNT 6.2 K/mm3 (4.0-10.0)
[2021-06-28 09:00] LABS: ALBUMIN 3.4 g/dl (3.4-5.0); BLOOD UREA NITROGEN 18.3 mg/dL (7-18)
[2021-06-28 09:02] LABS: MAGNESIUM 1.9 mg/dL (1.8-2.4)
[2021-06-28 09:03] LABS: CREATININE 0.7 mg/dL (0.55-1.3); PHOSPHOROUS 4.4 mg/dL (2.5-4.9)
[2021-06-28 09:04] LABS: BILIRUBIN,TOTAL 0.4 mg/dL (0.2-1); TOT PROT 6.7 g/dl (6.4-8.2)
[2021-06-28] MEDS: LABETALOL HCL 200 MG TABLET (FP) PO SCH ×2 (09:09→21:29)
[2021-06-28] MEDS: APIXABAN 2.5 MG TABLET PO SCH ×2 (09:09→21:29)
[2021-06-28] MEDS ORDERED: PT OWN MED DRAWER 7, Y5N ONE ×2 (09:11→21:14)
[2021-06-28] MEDS: BACITRACIN 15 GM TUBE TOPICAL OINTMENT TP SCH (09:12)
[2021-06-28] MEDS: amLODIPine BESYLATE 10 MG TABLET (FP) PO SCH (09:12)
[2021-06-28] MEDS ORDERED: INSULIN (LEVEMIR) 100 UNITS/ML UNITS SQ SCH (09:30)
[2021-06-28] MEDS ORDERED: Insulin (LOG) Aspart 100 UNITS/ML VIAL SQ SCH (11:00)
[2021-06-28] MEDS ORDERED: ACETAMINOPHEN 325 MG TABLET (FP) PO PRN (13:01)
[2021-06-28] MEDS ORDERED: ACETAMINOPHEN 1000 MG/100 ML VIAL IVPB PRN (13:02)
[2021-06-28] MEDS ORDERED: INSULIN (LEVEMIR) 100 UNITS/ML UNITS SQ ONE (14:01)
[2021-06-28] MEDS: COLLAGENASE CLOSTRIDIUM HIST. 30 GRAMS TUBE TP SCH (14:36)
[2021-06-28] MEDS: PREGABALIN 100 MG CAPSULE PO SCH ×2 (14:36→21:29)
[2021-06-28] MEDS ORDERED: cefTRIAXone SODIUM 1 GM VIAL ONE (15:34)
[2021-06-28] MEDS: CEFTRIAXONE 1 GM in DEXTROSE 5%-WATER - 50 ML IVPB SCH (15:36)
[2021-06-28] MEDS: Insulin (LOG) Aspart 100 UNITS/ML VIAL SQ SCH (16:20)
[2021-06-28] MEDS: INSULIN (LEVEMIR) 100 UNITS/ML UNITS SQ SCH (21:29)
[2021-06-28] MEDS: QUEtiapine FUMARATE 200 MG TABLET PO SCH (21:29)
[2021-06-28] MEDS ORDERED: traZODone HCL 50 MG TABLET (FP) PO SCH (22:00)
[2021-06-29] MEDS: INSULIN SLIDING SCALE (NOVOLOG) 1 VIAL SQ SCH ×3 (06:53→16:05)
[2021-06-29] MEDS: INSULIN (LEVEMIR) 100 UNITS/ML UNITS SQ SCH (06:53)
[2021-06-29] MEDS: Insulin (LOG) Aspart 100 UNITS/ML VIAL SQ SCH ×4 (06:53→16:04)
[2021-06-29] MEDS ORDERED: INSULIN (LEVEMIR) 100 UNITS/ML UNITS SQ SCH ×2 (06:56→06:57)
[2021-06-29] MEDS: PREGABALIN 100 MG CAPSULE PO SCH ×2 (07:08→14:19)
[2021-06-29] MEDS ORDERED: cefTRIAXone SODIUM 1 GM VIAL ONE (07:59)
[2021-06-29] MEDS ORDERED: DEXTROSE 5%-WATER - 50 ML IVPB ONE (07:59)
[2021-06-29] MEDS ORDERED: INSULIN (LEVEMIR) 100 UNITS/ML UNITS SQ ONE (08:53)
[2021-06-29] MEDS: BACITRACIN 15 GM TUBE TOPICAL OINTMENT TP SCH (09:07)
[2021-06-29 09:28] LABS: HEMATOCRIT 43.1 % (32.4-45.2); HEMOGLOBIN 14.7 GM/dL (10.7-15.3); MCH 30.6 pg (25.7-33.7); MEAN CELL VOLUME 90.1 fl (80-96); MEAN PLT VOLUME 8.6 fl (7.5-11.1); PLATELET COUNT 255 10^3/uL (134-434); RBC 4.78 M/mm3 (3.60-5.2); RDW 13.1 % (11.6-15.6); WHITE BLOOD COUNT 7.4 K/mm3 (4.0-10.0)
[2021-06-29] MEDS: amLODIPine BESYLATE 10 MG TABLET (FP) PO SCH (09:30)
[2021-06-29] MEDS: LABETALOL HCL 200 MG TABLET (FP) PO SCH (09:31)
[2021-06-29] MEDS: APIXABAN 2.5 MG TABLET PO SCH (09:31)
[2021-06-29] MEDS: CEFTRIAXONE 1 GM in DEXTROSE 5%-WATER - 50 ML IVPB SCH (09:31)
[2021-06-29] MEDS: COLLAGENASE CLOSTRIDIUM HIST. 30 GRAMS TUBE TP SCH (09:32)
[2021-06-29 09:48] LABS: CALCIUM 8.9 mg/dL (8.5-10.1)
[2021-06-29 09:49] LABS: BLOOD UREA NITROGEN 14.7 mg/dL (7-18)
[2021-06-29 09:52] LABS: CREATININE 0.7 mg/dL (0.55-1.3); PHOSPHOROUS 3.2 mg/dL (2.5-4.9)
[2021-06-29] MEDS ORDERED: FUROSEMIDE 40 MG/4 ML INJECTABLE VIAL IVPUSH ONE (09:59)
[2021-06-29 16:23] VITALS: BP 134/82; PULSE 101; TEMP 98.8
== END 2021-06-29 17:28 | disposition home or self-care (01) | DRG 380 ==
LOC: JER 09:36 → JERBED 15:14 → J7W 06-28 04:21
PROVIDERS: ADMIT Internal Medicine; ATTEND Internal Medicine
DX: E11.621 Type 2 diabetes mellitus with foot ulcer (principal); L97.529 Non-pressure chronic ulcer of other part of left foot with unspecified severity; L03.116 Cellulitis of left lower limb; E11.65 Type 2 diabetes mellitus with hyperglycemia; E66.01 Morbid (severe) obesity due to excess calories; Z68.43 Body mass index [BMI] 50.0-59.9, adult; L03.032 Cellulitis of left toe; E11.40 Type 2 diabetes mellitus with diabetic neuropathy, unspecified; F32.A Depression, unspecified; K21.9 Gastro-esophageal reflux disease without esophagitis; I10 Essential (primary) hypertension
CPT/HCPCS: 36415; 71045-TC-FY; 73630-TC-LT; 80048; 80053; 82962; 83735; 84100; 85025; 85027; 87040; 87804; 93005; 93010; 97116-GP; 97161-GP; 99285-25; C9803; J0131; U0003; U0005

== ENCOUNTER 2021-08-11 15:00 | Observation (INO) | payer OTHER ==
[2021-08-11] MEDS ORDERED: oxyCODONE HCL 5 MG TABLET PO ONE (16:50)
[2021-08-11] MEDS ORDERED: SODIUM CHLORIDE 1,000 ML IV STA (16:58)
[2021-08-11] MEDS ORDERED: oxyCODONE HCL 5 MG TABLET ONE (16:59)
[2021-08-11 17:06] LABS: ALBUMIN 4.3 g/dl (3.4-5.0); BILIRUBIN,TOTAL 0.6 mg/dl (0.2-1); CALCIUM 10.6 mg/dl (8.5-10); CREATININE 0.8 mg/dl (0.55-1.3); TOT PROT 7.4 g/dl (6.4-8.2)
[2021-08-11 17:07] LABS: INR 0.98 (0.83-1.09); PROTHROMBIN TIME (PATIENT) 10.9 SEC (9.7-13.0)
[2021-08-11 18:40] LABS: BASO % 0.6 % (0-2.0); EOS % 1.7 % (0-4.5); LYMPH % 24.4 % (8-40); MCH 29.3 pg (25.7-33.7); MCHC 32.6 g/dl (32.0-36.0); MEAN CELL VOLUME 89.7 fl (80-96); MEAN PLT VOLUME 9.3 fl (7.5-11.1); MONO % 7.3 % (3.8-10.2); PLATELET COUNT 288 10^3/uL (134-434); RBC 5.46 M/mm3 (3.60-5.2); RDW 13.2 % (11.6-15.6); WHITE BLOOD COUNT 8.9 K/mm3 (4.0-10.0)
[2021-08-11 18:44] LABS: N-TERMINAL BNP 51.9 pg/ml (5-125)
[2021-08-11] MEDS ORDERED: ENOXAPARIN NA (PORCINE) 40 MG/0.4 ML DISP.SYRIN SQ ONE (19:01)
[2021-08-11] MEDS ORDERED: ENOXAPARIN NA (PORCINE) 100 MG/1 ML DISP.SYRIN SQ ONE (19:03)
[2021-08-11] MEDS ORDERED: ENOXAPARIN NA (PORCINE) 60 MG/0.6 ML DISP.SYRIN SQ ONE (19:03)
[2021-08-11] MEDS ORDERED: ACETAMINOPHEN 325 MG TABLET (FP) PO PRN (20:34)
[2021-08-11] MEDS ORDERED: POLYETHYLENE GLYCOL (HEALTHYLAX) 3350 17 GM PACKET PO PRN (20:34)
[2021-08-11 21:13] VITALS: BMI 49.7
[2021-08-11] MEDS ORDERED: ENOXAPARIN NA (PORCINE) 30 MG/0.3 ML DISP.SYRIN SQ SCH (22:00)
[2021-08-11] MEDS ORDERED: traZODone HCL 150 MG TABLET PO SCH (22:42)
[2021-08-11] MEDS: LABETALOL HCL 200 MG TABLET (FP) PO SCH (23:02)
[2021-08-11] MEDS: PREGABALIN 50 MG CAPSULE PO SCH (23:03)
[2021-08-11] MEDS: QUEtiapine FUMARATE 200 MG TABLET PO SCH (23:04)
[2021-08-12] MEDS ORDERED: traZODone HCL 50 MG TABLET (FP) PO SCH (02:10)
[2021-08-12] MEDS: oxyCODONE HCL 5 MG TABLET PO PRN ×2 (03:08→09:22)
[2021-08-12] MEDS ORDERED: ENOXAPARIN NA (PORCINE) 30 MG/0.3 ML DISP.SYRIN SQ ONE (05:27)
[2021-08-12] MEDS ORDERED: ENOXAPARIN NA (PORCINE) 100 MG/1 ML DISP.SYRIN SQ ONE (05:28)
[2021-08-12] MEDS: PREGABALIN 50 MG CAPSULE PO SCH (06:27)
[2021-08-12] MEDS ORDERED: ENOXAPARIN 100 MG, ENOXAPARIN 30 MG SQ SCH (07:00)
[2021-08-12] MEDS: INSULIN SLIDING SCALE (NOVOLOG) 1 VIAL SQ SCH ×2 (07:06→12:21)
[2021-08-12 07:54] LABS: CREATININE 0.7 mg/dl (0.55-1.3)
[2021-08-12 08:34] VITALS: BP 143/92; PULSE 94; TEMP 98.3
[2021-08-12] MEDS ORDERED: POTASSIUM CHLORIDE TABS 20 MEQ TABLET.ER (FP) PO ONE (09:14)
[2021-08-12 09:20] LABS: BASO % 0.9 % (0-2.0); EOS % 3.3 % (0-4.5); HEMATOCRIT 41.7 % (32.4-45.2); HEMOGLOBIN 13.9 GM/dL (10.7-15.3); LYMPH % 37.3 % (8-40); MCH 29.9 pg (25.7-33.7); MCHC 33.5 g/dl (32.0-36.0); MEAN CELL VOLUME 89.2 fl (80-96); MEAN PLT VOLUME 9.1 fl (7.5-11.1); MONO % 10.4 % (3.8-10.2); NEUT % 48.1 % (42.8-82.8); PLATELET COUNT 220 10^3/uL (134-434); RBC 4.67 M/mm3 (3.60-5.2); RDW 13.3 % (11.6-15.6); WHITE BLOOD COUNT 6.8 K/mm3 (4.0-10.0)
[2021-08-12] MEDS: QUEtiapine FUMARATE 200 MG TABLET PO SCH (09:21)
[2021-08-12] MEDS: LABETALOL HCL 200 MG TABLET (FP) PO SCH (09:21)
[2021-08-12] MEDS ORDERED: amLODIPine BESYLATE 10 MG TABLET (FP) PO SCH (10:00)
[2021-08-12] MEDS ORDERED: ENOXAPARIN NA (PORCINE) 100 MG/1 ML DISP.SYRIN SQ SCH ×2 (12:14→21:00)
[2021-08-12] MEDS ORDERED: ENOXAPARIN 100 MG, ENOXAPARIN 40 MG SQ SCH (21:00)
== END 2021-08-12 13:48 | disposition home or self-care (01) ==
LOC: FER 15:00 → SUPCPDRO 15:00 → FM/S 19:07 → INTOOBSV 19:07 → UNDOADMOB 19:07 → FM/S 22:56
PROVIDERS: ADMIT Internal Medicine; ATTEND Nurse Practitioner Acute Care
PROC: 3E023GC Introduction of Other Therapeutic Substance into Muscle, Percutaneous Approach (ICD-10-PCS; principal; 2021-08-11)
PROC: 3E0337Z Introduction of Electrolytic and Water Balance Substance into Peripheral Vein, Percutaneous Approach (ICD-10-PCS; 2021-08-11)
DX: I82.409 Acute embolism and thrombosis of unspecified deep veins of unspecified lower extremity (principal); J44.9 Chronic obstructive pulmonary disease, unspecified; E11.9 Type 2 diabetes mellitus without complications; I10 Essential (primary) hypertension; Z86.718 Personal history of other venous thrombosis and embolism; Z79.01 Long term (current) use of anticoagulants; F41.8 Other specified anxiety disorders; E66.01 Morbid (severe) obesity due to excess calories; Z68.42 Body mass index [BMI] 45.0-49.9, adult; Z86.59 Personal history of other mental and behavioral disorders; R00.0 Tachycardia, unspecified; Z86.39 Personal history of other endocrine, nutritional and metabolic disease; Z88.8 Allergy status to other drugs, medicaments and biological substances; T80.89XA Other complications following infusion, transfusion and therapeutic injection, initial encounter; G40.89 Other seizures
CPT/HCPCS: 36415; 71046-TC-FY; 71275-TC; 74018-TC-FY; 80048; 80053; 82550; 82962; 83880; 84484; 84703; 85025; 85610; 85730; 93005; 96372; 99285-25; C9803; G0378; Q9967; U0003; U0005

== ENCOUNTER 2021-10-20 17:28 | Emergency (ER) | payer OTHER ==
[2021-10-20 17:35] VITALS: BP 124/91; PULSE 109; BMI 49.8
== END 2021-10-20 20:10 | disposition home or self-care (01) ==
LOC: JER 17:28
DX: S20.212A Contusion of left front wall of thorax, initial encounter (principal); W10.9XXA Fall (on) (from) unspecified stairs and steps, initial encounter
CPT/HCPCS: 71046-TC-FY; 71101-TC-LT-FY; 99284-25

== ENCOUNTER 2021-11-24 14:52 | Emergency (ER) | payer OTHER ==
[2021-11-24 15:23] VITALS: TEMP 98.6; BMI 48.4
[2021-11-24 17:59] LABS: BASO % 0.6 % (0-2.0); EOS % 2.6 % (0-4.5); HEMATOCRIT 45.7 % (32.4-45.2); HEMOGLOBIN 14.8 GM/dL (10.7-15.3); LYMPH % 26.5 % (8-40); MCH 29.4 pg (25.7-33.7); MCHC 32.4 g/dl (32.0-36.0); MEAN CELL VOLUME 90.8 fl (80-96); MEAN PLT VOLUME 9.4 fl (7.5-11.1); MONO % 6.9 % (3.8-10.2); NEUT % 63.4 % (42.8-82.8); PLATELET COUNT 249 10^3/uL (134-434); RBC 5.03 M/mm3 (3.60-5.2)
[2021-11-24 18:07] LABS: INR 0.96 (0.83-1.09)
[2021-11-24 18:10] LABS: ACTIVATED PTT 28.3 SECONDS (25.2-36.5)
[2021-11-24 18:12] LABS: CALCIUM 9.6 mg/dL (8.5-10.1)
[2021-11-24 18:13] LABS: ALBUMIN 3.8 g/dl (3.4-5.0); BLOOD UREA NITROGEN 17.1 mg/dL (7-18)
[2021-11-24 18:16] LABS: CREATININE 0.7 mg/dL (0.55-1.3)
[2021-11-24 18:18] LABS: BILIRUBIN,TOTAL 0.4 mg/dL (0.2-1); TOT PROT 7.5 g/dl (6.4-8.2)
[2021-11-24] MEDS ORDERED: ACETAMINOPHEN 1000 MG/100 ML BAG IVPB ONE (18:48)
[2021-11-24] MEDS ORDERED: ACETAMINOPHEN INJECTION 100 ML IVPB ONE (18:49)
[2021-11-24] MEDS ORDERED: KETOROLAC TROMETHAMINE 15 MG/ML VIAL IVPUSH ONE (21:04)
[2021-11-24 21:11] VITALS: BP 152/97; PULSE 98
[2021-11-24] MEDS ORDERED: KETOROLAC TROMETHAMINE 15 MG/ML VIAL ONE (21:13)
== END 2021-11-24 21:48 | disposition home or self-care (01) ==
LOC: JER 14:52
PROC: 3E0333Z Introduction of Anti-inflammatory into Peripheral Vein, Percutaneous Approach (ICD-10-PCS; principal; 2021-11-24)
PROC: 3E0333Z Introduction of Anti-inflammatory into Peripheral Vein, Percutaneous Approach (ICD-10-PCS; 2021-11-24)
DX: R22.42 Localized swelling, mass and lump, left lower limb (principal); J44.9 Chronic obstructive pulmonary disease, unspecified; M79.10 Myalgia, unspecified site
CPT/HCPCS: 36415; 71275-TC; 80053; 84484; 84703; 85025; 85610; 85730; 93005; 93010; 93971-TC; 99285-25; G0463-25; Q9967

== ENCOUNTER 2022-01-03 13:16 | Inpatient (IN) | payer OTHER ==
[2022-01-03 14:12] VITALS: BMI 48.4
[2022-01-03] MEDS ORDERED: PIPERACILLIN/TAZOB 4.5 GM 4.5 GM in DEXTROSE 5%-WATER 100 ML IVPB ONE (16:48)
[2022-01-03] MEDS ORDERED: VANCOMYCIN 1 GM in D5W (PRE-DOCKED) 1,000 MG/250 ML IVPB ONE (16:48)
[2022-01-03] MEDS ORDERED: VANCOMYCIN 1 GRAM (PRE-DOCKED) 1,000 MG/250 ML BAG IVPB ONE ×2 (16:56→18:11)
[2022-01-03] MEDS ORDERED: PIPERACILLIN/TAZOB 4.5 GM 4.5 GM/100 ML BAG IVPB ONE ×2 (16:56→18:11)
[2022-01-03] MEDS ORDERED: QUEtiapine FUMARATE 100 MG TABLET (FP) ONE (18:10)
[2022-01-03 18:19] LABS: BASO % 0.8 % (0-2.0); EOS % 1.1 % (0-4.5); HEMOGLOBIN 14.7 GM/dL (10.7-15.3); LYMPH % 17.3 % (8-40); MCH 29.4 pg (25.7-33.7); MCHC 33.5 g/dl (32.0-36.0); MEAN CELL VOLUME 87.6 fl (80-96); MEAN PLT VOLUME 8.9 fl (7.5-11.1); MONO % 8.6 % (3.8-10.2); NEUT % 72.2 % (42.8-82.8); PLATELET COUNT 225 10^3/uL (134-434); RBC 5.02 M/mm3 (3.60-5.2); RDW 13.4 % (11.6-15.6); WHITE BLOOD COUNT 8.1 K/mm3 (4.0-10.0)
[2022-01-03 18:25] LABS: INR 1.09 (0.83-1.09); PROTHROMBIN TIME (PATIENT) 12.6 SEC (9.7-13.0)
[2022-01-03] MEDS: QUEtiapine FUMARATE 200 MG TABLET PO SCH (18:37)
[2022-01-03] MEDS ORDERED: morphine CARPU-JECT 2 MG/1 ML DISP.SYRIN IVPUSH ONE (18:50)
[2022-01-03 19:01] LABS: ALBUMIN 3.5 g/dl (3.4-5.0); BLOOD UREA NITROGEN 12.2 mg/dL (7-18); CALCIUM 8.8 mg/dL (8.5-10.1)
[2022-01-03 19:02] LABS: ERYTHROCYTE SEDIMENTATION RATE 7 mm/hr (0-30)
[2022-01-03 19:04] LABS: CREATININE 0.8 mg/dL (0.55-1.3)
[2022-01-03 19:06] LABS: BILIRUBIN,TOTAL 0.4 mg/dL (0.2-1); TOT PROT 7.1 g/dl (6.4-8.2)
[2022-01-03] MEDS ORDERED: LABETALOL HCL 100 MG TABLET (FP) ONE (21:39)
[2022-01-03] MEDS ORDERED: PREGABALIN 100 MG CAPSULE ONE (21:39)
[2022-01-03] MEDS ORDERED: ENOXAPARIN NA (PORCINE) 60 MG/0.6 ML DISP.SYRIN SQ ONE (21:39)
[2022-01-03] MEDS ORDERED: ACETAMINOPHEN 325 MG TABLET (FP) ONE (21:42)
[2022-01-03] MEDS: ENOXAPARIN NA (PORCINE) 120 MG/0.8 ML DISP.SYRIN SQ SCH (21:50)
[2022-01-03] MEDS: ACETAMINOPHEN 325 MG TABLET (FP) PO PRN (21:50)
[2022-01-03] MEDS: PREGABALIN 100 MG CAPSULE PO SCH (21:51)
[2022-01-03] MEDS: LABETALOL HCL 100 MG TABLET (FP) PO SCH (21:51)
[2022-01-03] MEDS ORDERED: traZODone HCL 100 MG TABLET (FP) PO SCH (22:00)
[2022-01-03] MEDS: INSULIN SLIDING SCALE (NOVOLOG) 1 VIAL SQ SCH (22:18)
[2022-01-04] MEDS ORDERED: morphine CARPU-JECT 2 MG/1 ML DISP.SYRIN IVPUSH ONE (00:54)
[2022-01-04] MEDS ORDERED: PREGABALIN 100 MG CAPSULE ONE ×2 (05:15→13:34)
[2022-01-04] MEDS ORDERED: QUEtiapine FUMARATE 100 MG TABLET (FP) ONE (05:16)
[2022-01-04] MEDS: QUEtiapine FUMARATE 200 MG TABLET PO SCH (05:19)
[2022-01-04] MEDS: PREGABALIN 100 MG CAPSULE PO SCH ×2 (05:19→14:10)
[2022-01-04] MEDS ORDERED: ACETAMINOPHEN 325 MG TABLET (FP) ONE (05:19)
[2022-01-04] MEDS: ACETAMINOPHEN 325 MG TABLET (FP) PO PRN (05:21)
[2022-01-04 07:47] LABS: HEMATOCRIT 42.7 % (32.4-45.2); HEMOGLOBIN 14.3 GM/dL (10.7-15.3); MCH 29.7 pg (25.7-33.7); MCHC 33.5 g/dl (32.0-36.0); MEAN CELL VOLUME 88.7 fl (80-96); MEAN PLT VOLUME 8.8 fl (7.5-11.1); PLATELET COUNT 202 10^3/uL (134-434); RBC 4.81 M/mm3 (3.60-5.2); RDW 13.3 % (11.6-15.6); WHITE BLOOD COUNT 5.6 K/mm3 (4.0-10.0)
[2022-01-04] MEDS: INSULIN SLIDING SCALE (NOVOLOG) 1 VIAL SQ SCH ×3 (07:49→16:56)
[2022-01-04] MEDS ORDERED: LABETALOL HCL 100 MG TABLET (FP) ONE (07:53)
[2022-01-04] MEDS ORDERED: sitaGLIPtin PHOSPHATE 50 MG TABLET ONE (07:53)
[2022-01-04] MEDS ORDERED: amLODIPine BESYLATE 5 MG TABLET (FP) ONE (07:53)
[2022-01-04] MEDS ORDERED: ENOXAPARIN NA (PORCINE) 100 MG/1 ML DISP.SYRIN SQ ONE (07:55)
[2022-01-04] MEDS ORDERED: ENOXAPARIN NA (PORCINE) 40 MG/0.4 ML DISP.SYRIN SQ ONE (07:56)
[2022-01-04 08:08] LABS: CALCIUM 8.2 mg/dL (8.5-10.1)
[2022-01-04 08:09] LABS: ALBUMIN 3.2 g/dl (3.4-5.0); BLOOD UREA NITROGEN 16.7 mg/dL (7-18)
[2022-01-04 08:12] LABS: CREATININE 0.9 mg/dL (0.55-1.3); TOT PROT 6.6 g/dl (6.4-8.2)
[2022-01-04 08:14] LABS: BILIRUBIN,TOTAL 0.3 mg/dL (0.2-1)
[2022-01-04] MEDS: ENOXAPARIN NA (PORCINE) 120 MG/0.8 ML DISP.SYRIN SQ SCH (09:16)
[2022-01-04] MEDS: LABETALOL HCL 100 MG TABLET (FP) PO SCH (09:16)
[2022-01-04] MEDS ORDERED: amLODIPine BESYLATE 10 MG TABLET (FP) PO SCH (10:00)
[2022-01-04] MEDS ORDERED: traMADol HCL 50 MG TABLET PO PRN (10:01)
[2022-01-04] MEDS ORDERED: traMADol HCL 50 MG TABLET ONE (11:33)
[2022-01-04] MEDS: PIPERACILLIN/TAZOB 3.375 GM 3.375 GM in DEXTROSE 5%-WATER - 50 ML IVPB SCH ×2 (11:57→18:59)
[2022-01-04] MEDS ORDERED: PIPERACILLIN/TAZOB 3.375 GM 3.375 GM/50 ML BAG IVPB ONE ×2 (11:58→18:04)
[2022-01-04 12:26] VITALS: BP 134/76; PULSE 98; TEMP 98.4
[2022-01-04] MEDS ORDERED: oxyCODONE HCL 5 MG TABLET PO ONE (13:30)
[2022-01-04] MEDS ORDERED: oxyCODONE HCL 5 MG TABLET ONE (13:34)
[2022-01-04] MEDS ORDERED: ATORVASTATIN CA 20 MG TABLET (FP) PO SCH (22:00)
[2022-01-04] MEDS ORDERED: QUEtiapine FUMARATE 200 MG TABLET PO SCH (22:00)
[2022-01-05] MEDS ORDERED: INSULIN (NOVOLOG) ASPART 100 UNITS/ML 10ML VIAL SQ SCH (07:00)
[2022-01-05] MEDS ORDERED: INSULIN (LEVEMIR) 100 UNITS/ML UNITS SQ SCH (10:00)
== END 2022-01-04 23:45 | disposition left against medical advice (07) | DRG 380 ==
LOC: JER 13:16 → JERBED 18:31
PROVIDERS: ADMIT Family Medicine; ATTEND Family Medicine
DX: E11.621 Type 2 diabetes mellitus with foot ulcer (principal); L97.528 Non-pressure chronic ulcer of other part of left foot with other specified severity; F12.10 Cannabis abuse, uncomplicated; F14.10 Cocaine abuse, uncomplicated; G47.23 Circadian rhythm sleep disorder, irregular sleep wake type; J44.9 Chronic obstructive pulmonary disease, unspecified; E87.5 Hyperkalemia; E66.01 Morbid (severe) obesity due to excess calories; Z68.42 Body mass index [BMI] 45.0-49.9, adult; E78.5 Hyperlipidemia, unspecified; M54.50 Low back pain, unspecified; F41.8 Other specified anxiety disorders; K21.9 Gastro-esophageal reflux disease without esophagitis; I11.0 Hypertensive heart disease with heart failure; I50.9 Heart failure, unspecified; N20.0 Calculus of kidney
CPT/HCPCS: 0241U-QW; 36415; 73630-TC-LT; 73718-TC-LT; 80053; 80061; 82962; 83036; 84443; 85025; 85027; 85610; 85651; 86140; 93005; 93010; 93922; 93925-TC; 99285-25

== ENCOUNTER 2022-01-05 12:03 | Inpatient (IN) | payer OTHER ==
[2022-01-05] MEDS ORDERED: KETOROLAC TROMETHAMINE 15 MG/ML VIAL IVPUSH ONE (14:02)
[2022-01-05] MEDS ORDERED: KETOROLAC TROMETHAMINE 15 MG/ML VIAL ONE (14:11)
[2022-01-05 15:07] LABS: BASO % 0.6 % (0-2.0); EOS % 3.7 % (0-4.5); HEMATOCRIT 43.5 % (32.4-45.2); HEMOGLOBIN 14.7 GM/dL (10.7-15.3); LYMPH % 29.4 % (8-40); MCH 29.9 pg (25.7-33.7); MCHC 33.7 g/dl (32.0-36.0); MEAN CELL VOLUME 88.7 fl (80-96); MONO % 9.7 % (3.8-10.2); NEUT % 56.6 % (42.8-82.8); PLATELET COUNT 243 10^3/uL (134-434); RBC 4.91 M/mm3 (3.60-5.2); RDW 13.4 % (11.6-15.6); WHITE BLOOD COUNT 6.1 K/mm3 (4.0-10.0)
[2022-01-05 15:26] LABS: ALBUMIN 3.4 g/dl (3.4-5.0); CALCIUM 9.4 mg/dL (8.5-10.1)
[2022-01-05 15:28] LABS: BLOOD UREA NITROGEN 16.9 mg/dL (7-18)
[2022-01-05 15:30] LABS: CREATININE 0.8 mg/dL (0.55-1.3)
[2022-01-05 15:31] LABS: BILIRUBIN,TOTAL 0.4 mg/dL (0.2-1); TOT PROT 7.2 g/dl (6.4-8.2)
[2022-01-05] MEDS ORDERED: CEFTRIAXONE 2 GM/50 ML BAG IVPB ONE (15:55)
[2022-01-05] MEDS ORDERED: CEFTRIAXONE 2 GM/100 ML BAG IVPB ONE (17:02)
[2022-01-05] MEDS ORDERED: oxyCODONE HCL 5 MG TABLET ONE (19:57)
[2022-01-05] MEDS: oxyCODONE HCL 5 MG TABLET PO PRN (20:26)
[2022-01-05] MEDS ORDERED: APIXABAN 2.5 MG TABLET ONE (21:35)
[2022-01-05] MEDS ORDERED: LABETALOL HCL 100 MG TABLET (FP) ONE (21:35)
[2022-01-05] MEDS ORDERED: QUEtiapine FUMARATE 100 MG TABLET (FP) ONE (21:35)
[2022-01-05] MEDS: traZODone HCL 100 MG TABLET (FP) PO SCH (22:06)
[2022-01-05] MEDS: LABETALOL HCL 100 MG TABLET (FP) PO SCH (22:06)
[2022-01-05] MEDS: APIXABAN 2.5 MG TABLET PO SCH (22:06)
[2022-01-05] MEDS: QUEtiapine FUMARATE 200 MG TABLET PO SCH (22:07)
[2022-01-06] MEDS ORDERED: sitaGLIPtin PHOSPHATE 50 MG TABLET ONE ×2 (05:51→05:55)
[2022-01-06] MEDS ORDERED: oxyCODONE HCL 5 MG TABLET ONE ×2 (06:00→15:20)
[2022-01-06] MEDS: oxyCODONE HCL 5 MG TABLET PO PRN ×2 (06:02→15:25)
[2022-01-06 07:56] LABS: BASO % 0.5 % (0-2.0); EOS % 4.4 % (0-4.5); HEMATOCRIT 40.6 % (32.4-45.2); HEMOGLOBIN 13.5 GM/dL (10.7-15.3); LYMPH % 31.1 % (8-40); MCH 29.4 pg (25.7-33.7); MCHC 33.2 g/dl (32.0-36.0); MEAN CELL VOLUME 88.4 fl (80-96); MEAN PLT VOLUME 8.8 fl (7.5-11.1); MONO % 10.9 % (3.8-10.2); NEUT % 53.1 % (42.8-82.8); PLATELET COUNT 207 10^3/uL (134-434); RBC 4.59 M/mm3 (3.60-5.2); RDW 13.3 % (11.6-15.6); WHITE BLOOD COUNT 4.9 K/mm3 (4.0-10.0)
[2022-01-06 08:10] LABS: CALCIUM 8.8 mg/dL (8.5-10.1)
[2022-01-06 08:12] LABS: ALBUMIN 3.1 g/dl (3.4-5.0); BLOOD UREA NITROGEN 19.7 mg/dL (7-18)
[2022-01-06 08:14] LABS: CREATININE 0.7 mg/dL (0.55-1.3)
[2022-01-06 08:16] LABS: BILIRUBIN,TOTAL 0.3 mg/dL (0.2-1); TOT PROT 6.2 g/dl (6.4-8.2)
[2022-01-06] MEDS ORDERED: APIXABAN 2.5 MG TABLET ONE ×2 (09:00→23:09)
[2022-01-06] MEDS ORDERED: LABETALOL HCL 100 MG TABLET (FP) ONE ×2 (09:01→23:09)
[2022-01-06] MEDS ORDERED: amLODIPine BESYLATE 10 MG TABLET (FP) ONE (09:01)
[2022-01-06] MEDS ORDERED: CEFTRIAXONE 2 GM/100 ML BAG IVPB ONE (09:02)
[2022-01-06] MEDS: LABETALOL HCL 100 MG TABLET (FP) PO SCH ×2 (09:23→23:21)
[2022-01-06] MEDS: QUEtiapine FUMARATE 200 MG TABLET PO SCH ×2 (09:23→23:21)
[2022-01-06] MEDS: amLODIPine BESYLATE 10 MG TABLET (FP) PO SCH (09:23)
[2022-01-06] MEDS: APIXABAN 2.5 MG TABLET PO SCH ×2 (09:23→23:21)
[2022-01-06] MEDS ORDERED: CEFTRIAXONE 2 GM in DEXTROSE 5%-WATER 2 GM/100 ML BAG IVPB SCH (10:00)
[2022-01-06] MEDS ORDERED: PIPERACILLIN/TAZOB 3.375 GM 3.375 GM/50 ML BAG IVPB ONE (17:32)
[2022-01-06] MEDS: PIPERACILLIN/TAZOB 3.375 GM 3.375 GM in DEXTROSE 5%-WATER - 50 ML IVPB SCH (17:47)
[2022-01-06] MEDS: COLLAGENASE CLOSTRIDIUM HIST. 30 GRAMS TUBE TP SCH (17:48)
[2022-01-06] MEDS ORDERED: QUEtiapine FUMARATE 100 MG TABLET (FP) ONE (23:10)
[2022-01-06] MEDS: traZODone HCL 100 MG TABLET (FP) PO SCH (23:21)
[2022-01-07] MEDS ORDERED: PIPERACILLIN/TAZOB 3.375 GM 3.375 GM/50 ML BAG IVPB ONE ×3 (02:01→17:32)
[2022-01-07] MEDS: PIPERACILLIN/TAZOB 3.375 GM 3.375 GM in DEXTROSE 5%-WATER - 50 ML IVPB SCH ×3 (02:23→17:47)
[2022-01-07] MEDS ORDERED: oxyCODONE HCL 5 MG TABLET ONE ×3 (05:13→21:45)
[2022-01-07] MEDS: oxyCODONE HCL 5 MG TABLET PO PRN ×2 (05:18→15:23)
[2022-01-07] MEDS ORDERED: sitaGLIPtin PHOSPHATE 50 MG TABLET ONE (07:26)
[2022-01-07] MEDS ORDERED: APIXABAN 2.5 MG TABLET ONE ×2 (09:25→21:36)
[2022-01-07] MEDS ORDERED: LABETALOL HCL 100 MG TABLET (FP) ONE ×3 (09:25→21:37)
[2022-01-07] MEDS ORDERED: amLODIPine BESYLATE 10 MG TABLET (FP) ONE (09:25)
[2022-01-07] MEDS ORDERED: QUEtiapine FUMARATE 100 MG TABLET (FP) ONE ×2 (09:26→21:36)
[2022-01-07] MEDS: amLODIPine BESYLATE 10 MG TABLET (FP) PO SCH (09:42)
[2022-01-07] MEDS: LABETALOL HCL 100 MG TABLET (FP) PO SCH ×2 (09:42→21:55)
[2022-01-07] MEDS: QUEtiapine FUMARATE 200 MG TABLET PO SCH ×2 (09:42→21:55)
[2022-01-07] MEDS: COLLAGENASE CLOSTRIDIUM HIST. 30 GRAMS TUBE TP SCH (09:42)
[2022-01-07] MEDS: APIXABAN 2.5 MG TABLET PO SCH ×2 (09:42→21:55)
[2022-01-07] MEDS: traZODone HCL 100 MG TABLET (FP) PO SCH (22:17)
[2022-01-08] MEDS ORDERED: DEXTROSE 5%-WATER - 50 ML IVPB ONE (02:13)
[2022-01-08] MEDS ORDERED: PIPERACILLIN/TAZOBACTAM 3.375 GM VIAL IVPB ONE (02:13)
[2022-01-08] MEDS: PIPERACILLIN/TAZOB 3.375 GM 3.375 GM in DEXTROSE 5%-WATER - 50 ML IVPB SCH (02:20)
[2022-01-08] MEDS: INSULIN SLIDING SCALE (NOVOLOG) 1 VIAL SQ SCH ×4 (07:09→21:44)
[2022-01-08] MEDS: amLODIPine BESYLATE 10 MG TABLET (FP) PO SCH (10:28)
[2022-01-08] MEDS: LABETALOL HCL 100 MG TABLET (FP) PO SCH ×2 (10:28→21:40)
[2022-01-08] MEDS: oxyCODONE HCL 5 MG TABLET PO PRN ×3 (10:28→23:25)
[2022-01-08] MEDS: QUEtiapine FUMARATE 100 MG TABLET (FP) PO SCH ×2 (10:28→21:45)
[2022-01-08] MEDS: APIXABAN 2.5 MG TABLET PO SCH ×2 (10:28→21:45)
[2022-01-08] MEDS: COLLAGENASE CLOSTRIDIUM HIST. 30 GRAMS TUBE TP SCH (10:41)
[2022-01-08] MEDS: RAMIPRIL 5 MG CAPSULE PO SCH (11:01)
[2022-01-08 11:29] LABS: BASO % 0.9 % (0-2.0); EOS % 4.1 % (0-4.5); HEMATOCRIT 44.9 % (32.4-45.2); HEMOGLOBIN 15.3 GM/dL (10.7-15.3); LYMPH % 21.6 % (8-40); MCH 29.9 pg (25.7-33.7); MEAN PLT VOLUME 8.9 fl (7.5-11.1); MONO % 8.1 % (3.8-10.2); NEUT % 65.3 % (42.8-82.8); PLATELET COUNT 249 10^3/uL (134-434); RBC 5.11 M/mm3 (3.60-5.2); RDW 13.1 % (11.6-15.6); WHITE BLOOD COUNT 6.9 K/mm3 (4.0-10.0)
[2022-01-08 11:45] LABS: CALCIUM 9.1 mg/dL (8.5-10.1)
[2022-01-08 11:46] LABS: ALBUMIN 3.6 g/dl (3.4-5.0); BLOOD UREA NITROGEN 15.4 mg/dL (7-18)
[2022-01-08 11:49] LABS: CREATININE 0.7 mg/dL (0.55-1.3)
[2022-01-08 11:51] LABS: BILIRUBIN,TOTAL 0.4 mg/dL (0.2-1); TOT PROT 7.2 g/dl (6.4-8.2)
[2022-01-08 12:47] VITALS: BMI 47.4
[2022-01-08] MEDS: traZODone HCL 100 MG TABLET (FP) PO SCH (21:39)
[2022-01-08] MEDS ORDERED: INSULIN (LEVEMIR) 100 UNITS/ML UNITS SQ SCH (22:00)
[2022-01-09] MEDS: INSULIN (NOVOLOG) ASPART 100 UNITS/ML 10ML VIAL SQ SCH ×3 (06:37→18:04)
[2022-01-09] MEDS: INSULIN SLIDING SCALE (NOVOLOG) 1 VIAL SQ SCH ×4 (06:49→21:37)
[2022-01-09] MEDS ORDERED: INSULIN (NOVOLOG) ASPART 100 UNITS/ML 10ML VIAL ONE (07:08)
[2022-01-09 07:50] LABS: HEMOGLOBIN 14.4 GM/dL (10.7-15.3); MCH 29.6 pg (25.7-33.7); MCHC 33.5 g/dl (32.0-36.0); MEAN CELL VOLUME 88.4 fl (80-96); MEAN PLT VOLUME 8.5 fl (7.5-11.1); PLATELET COUNT 243 10^3/uL (134-434); RBC 4.86 M/mm3 (3.60-5.2); RDW 13.2 % (11.6-15.6); WHITE BLOOD COUNT 8.2 K/mm3 (4.0-10.0)
[2022-01-09 08:22] LABS: BLOOD UREA NITROGEN 19.6 mg/dL (7-18); CALCIUM 8.6 mg/dL (8.5-10.1); MAGNESIUM 1.8 mg/dL (1.8-2.4)
[2022-01-09 08:23] LABS: ALBUMIN 3.3 g/dl (3.4-5.0)
[2022-01-09 08:25] LABS: CREATININE 0.6 mg/dL (0.55-1.3)
[2022-01-09 08:27] LABS: BILIRUBIN,TOTAL 0.3 mg/dL (0.2-1); TOT PROT 6.5 g/dl (6.4-8.2)
[2022-01-09] MEDS: oxyCODONE HCL 5 MG TABLET PO PRN ×2 (09:00→16:11)
[2022-01-09] MEDS: LABETALOL HCL 100 MG TABLET (FP) PO SCH ×2 (11:33→21:31)
[2022-01-09] MEDS: QUEtiapine FUMARATE 100 MG TABLET (FP) PO SCH ×2 (11:33→21:32)
[2022-01-09] MEDS: OMEGA-3 ACID ETHYL ESTERS (FATTY-ACIDS) 1 GM CAPSULE (FP) PO SCH ×2 (11:34→21:32)
[2022-01-09] MEDS: amLODIPine BESYLATE 10 MG TABLET (FP) PO SCH (11:34)
[2022-01-09] MEDS: RAMIPRIL 5 MG CAPSULE PO SCH (11:34)
[2022-01-09] MEDS: APIXABAN 2.5 MG TABLET PO SCH ×2 (11:35→21:32)
[2022-01-09] MEDS: INSULIN (LEVEMIR) 100 UNITS/ML UNITS SQ SCH ×2 (11:36→21:38)
[2022-01-09] MEDS: COLLAGENASE CLOSTRIDIUM HIST. 30 GRAMS TUBE TP SCH (11:44)
[2022-01-09] MEDS: FENOFIBRIC ACID 135 MG CAP PO SCH (12:41)
[2022-01-09] MEDS: traZODone HCL 100 MG TABLET (FP) PO SCH (21:31)
[2022-01-10] MEDS ORDERED: Insulin (LOG) Aspart 100 UNITS/ML VIAL SQ ONE (06:00)
[2022-01-10] MEDS: INSULIN SLIDING SCALE (NOVOLOG) 1 VIAL SQ SCH ×5 (06:04→21:16)
[2022-01-10] MEDS: INSULIN (NOVOLOG) ASPART 100 UNITS/ML 10ML VIAL SQ SCH ×3 (06:07→16:55)
[2022-01-10] MEDS: oxyCODONE HCL 5 MG TABLET PO PRN ×3 (08:26→23:26)
[2022-01-10] MEDS: RAMIPRIL 5 MG CAPSULE PO SCH ×2 (08:27→11:58)
[2022-01-10] MEDS: QUEtiapine FUMARATE 100 MG TABLET (FP) PO SCH ×3 (08:28→21:11)
[2022-01-10] MEDS: LABETALOL HCL 100 MG TABLET (FP) PO SCH ×3 (08:28→21:12)
[2022-01-10] MEDS: OMEGA-3 ACID ETHYL ESTERS (FATTY-ACIDS) 1 GM CAPSULE (FP) PO SCH ×3 (08:29→21:11)
[2022-01-10] MEDS: amLODIPine BESYLATE 10 MG TABLET (FP) PO SCH ×2 (08:29→11:59)
[2022-01-10] MEDS: INSULIN (LEVEMIR) 100 UNITS/ML UNITS SQ SCH (11:58)
[2022-01-10] MEDS: APIXABAN 2.5 MG TABLET PO SCH ×2 (11:58→21:11)
[2022-01-10] MEDS ORDERED: DEXTROSE 5%-NORMAL SALINE 1,000 ML IV SCH ×2 (12:15→15:05)
[2022-01-10] MEDS ORDERED: LIDOCAINE HCL 1%, 10 MG/ML (20ML VIAL) ONE (12:22)
[2022-01-10] MEDS ORDERED: BACITRACIN 15 GM TUBE TOPICAL OINTMENT ONE (12:23)
[2022-01-10] MEDS ORDERED: BUPIVACAINE HCL/PF 0.25% (2.5MG/ML) 10 ML VIAL ONE (12:28)
[2022-01-10] MEDS ORDERED: INSULIN (LEVEMIR) 100 UNITS/ML UNITS SQ ONE ×2 (12:30→12:38)
[2022-01-10] MEDS ORDERED: INSULIN (NOVOLOG) ASPART 100 UNITS/ML 10ML VIAL ONE (12:39)
[2022-01-10] MEDS: COLLAGENASE CLOSTRIDIUM HIST. 30 GRAMS TUBE TP SCH (12:43)
[2022-01-10] MEDS: FENOFIBRIC ACID 135 MG CAP PO SCH (12:55)
[2022-01-10] MEDS ORDERED: ONDANSETRON 4 MG/2 ML VIAL IVPUSH PRN ×2 (13:27→15:05)
[2022-01-10] MEDS ORDERED: KETAMINE HCL 200 MG/20 ML VIAL ONE (13:35)
[2022-01-10] MEDS ORDERED: MIDAZOLAM HCL 2 MG/2 ML SINGLE DOSE VIAL ONE (13:35)
[2022-01-10] MEDS ORDERED: PROPOFOL 20 ML ONE (13:44)
[2022-01-10] MEDS ORDERED: BUPIVACAINE HCL/PF 0.25% (2.5MG/ML) 10 ML VIAL IJ ONE (13:52)
[2022-01-10] MEDS ORDERED: LIDOCAINE HCL 1%, 10 MG/ML (20ML VIAL) NR ONE (13:52)
[2022-01-10] MEDS ORDERED: SUCCINYLCHOLINE CHLORIDE 200 MG/10 ML SYRINGE ONE (14:02)
[2022-01-10 16:48] LABS: BASO % 0.6 % (0-2.0); EOS % 2.4 % (0-4.5); HEMATOCRIT 44.3 % (32.4-45.2); HEMOGLOBIN 14.8 GM/dL (10.7-15.3); LYMPH % 25.9 % (8-40); MCH 29.6 pg (25.7-33.7); MCHC 33.5 g/dl (32.0-36.0); MEAN CELL VOLUME 88.4 fl (80-96); MEAN PLT VOLUME 8.8 fl (7.5-11.1); MONO % 7.4 % (3.8-10.2); NEUT % 63.7 % (42.8-82.8); PLATELET COUNT 258 10^3/uL (134-434); RBC 5.01 M/mm3 (3.60-5.2); RDW 12.8 % (11.6-15.6); WHITE BLOOD COUNT 8.6 K/mm3 (4.0-10.0)
[2022-01-10] MEDS: ROSUVASTATIN CA 10 MG TABLET PO SCH (21:11)
[2022-01-10] MEDS: traZODone HCL 100 MG TABLET (FP) PO SCH (21:11)
[2022-01-10] MEDS ORDERED: ROSUVASTATIN CA 10 MG TABLET PO SCH (22:00)
[2022-01-10] MEDS ORDERED: INSULIN (LEVEMIR) 100 UNITS/ML UNITS SQ SCH (22:00)
[2022-01-11] MEDS: INSULIN (LEVEMIR) 100 UNITS/ML UNITS SQ SCH ×2 (06:39→21:52)
[2022-01-11] MEDS: INSULIN (NOVOLOG) ASPART 100 UNITS/ML 10ML VIAL SQ SCH ×3 (06:40→17:14)
[2022-01-11] MEDS: INSULIN SLIDING SCALE (NOVOLOG) 1 VIAL SQ SCH ×4 (06:41→21:54)
[2022-01-11] MEDS: APIXABAN 2.5 MG TABLET PO SCH ×2 (10:35→21:50)
[2022-01-11] MEDS: QUEtiapine FUMARATE 100 MG TABLET (FP) PO SCH ×2 (10:35→21:51)
[2022-01-11] MEDS: LABETALOL HCL 100 MG TABLET (FP) PO SCH ×2 (10:35→21:50)
[2022-01-11] MEDS: OMEGA-3 ACID ETHYL ESTERS (FATTY-ACIDS) 1 GM CAPSULE (FP) PO SCH ×2 (10:35→21:50)
[2022-01-11] MEDS: RAMIPRIL 5 MG CAPSULE PO SCH (10:35)
[2022-01-11] MEDS: amLODIPine BESYLATE 10 MG TABLET (FP) PO SCH (10:35)
[2022-01-11] MEDS: oxyCODONE HCL 5 MG TABLET PO PRN ×2 (10:36→17:08)
[2022-01-11] MEDS: COLLAGENASE CLOSTRIDIUM HIST. 30 GRAMS TUBE TP SCH (10:43)
[2022-01-11] MEDS ORDERED: DEXTROSE 5%-WATER 100 ML IVPB ONE (13:58)
[2022-01-11] MEDS: CEFTRIAXONE 2 GM in DEXTROSE 5%-WATER 100 ML IVPB SCH (14:05)
[2022-01-11] MEDS: FENOFIBRIC ACID 135 MG CAP PO SCH (14:09)
[2022-01-11] MEDS: traZODone HCL 100 MG TABLET (FP) PO SCH (21:50)
[2022-01-11] MEDS: ROSUVASTATIN CA 10 MG TABLET PO SCH (21:50)
[2022-01-12] MEDS: oxyCODONE HCL 5 MG TABLET PO PRN ×2 (06:15→14:57)
[2022-01-12] MEDS: INSULIN (LEVEMIR) 100 UNITS/ML UNITS SQ SCH (06:16)
[2022-01-12] MEDS: INSULIN (NOVOLOG) ASPART 100 UNITS/ML 10ML VIAL SQ SCH ×3 (06:19→16:48)
[2022-01-12] MEDS: INSULIN SLIDING SCALE (NOVOLOG) 1 VIAL SQ SCH ×3 (06:20→16:48)
[2022-01-12] MEDS ORDERED: DEXTROSE 5%-WATER 100 ML IVPB ONE (09:56)
[2022-01-12] MEDS: QUEtiapine FUMARATE 100 MG TABLET (FP) PO SCH (09:58)
[2022-01-12] MEDS: APIXABAN 2.5 MG TABLET PO SCH (09:59)
[2022-01-12] MEDS: RAMIPRIL 5 MG CAPSULE PO SCH (09:59)
[2022-01-12] MEDS: OMEGA-3 ACID ETHYL ESTERS (FATTY-ACIDS) 1 GM CAPSULE (FP) PO SCH (09:59)
[2022-01-12] MEDS: amLODIPine BESYLATE 10 MG TABLET (FP) PO SCH (10:00)
[2022-01-12] MEDS: LABETALOL HCL 100 MG TABLET (FP) PO SCH (10:00)
[2022-01-12] MEDS: COLLAGENASE CLOSTRIDIUM HIST. 30 GRAMS TUBE TP SCH (10:00)
[2022-01-12] MEDS: CEFTRIAXONE 2 GM in DEXTROSE 5%-WATER 100 ML IVPB SCH (10:00)
[2022-01-12] MEDS: FENOFIBRIC ACID 135 MG CAP PO SCH (10:30)
[2022-01-12 15:15] VITALS: BP 147/101; PULSE 101; TEMP 98.7
== END 2022-01-12 16:54 | disposition home or self-care (01) | DRG 344 ==
LOC: JER 12:03 → JERBED 14:52 → J8W 01-08 01:31
PROVIDERS: ADMIT Family Medicine; ATTEND Family Medicine
PROC: 0JBR0ZZ Excision of Left Foot Subcutaneous Tissue and Fascia, Open Approach (ICD-10-PCS; 2022-01-10)
PROC: 0QBR0ZX Excision of Left Toe Phalanx, Open Approach, Diagnostic (ICD-10-PCS; 2022-01-10)
PROC: 02HV33Z Insertion of Infusion Device into Superior Vena Cava, Percutaneous Approach (ICD-10-PCS; principal; 2022-01-12)
PROC: B518ZZA Fluoroscopy of Superior Vena Cava, Guidance (ICD-10-PCS; 2022-01-12)
DX: E11.69 Type 2 diabetes mellitus with other specified complication (principal); M86.8X7 Other osteomyelitis, ankle and foot; E78.5 Hyperlipidemia, unspecified; I10 Essential (primary) hypertension; K21.9 Gastro-esophageal reflux disease without esophagitis; L03.032 Cellulitis of left toe; E11.621 Type 2 diabetes mellitus with foot ulcer; J44.9 Chronic obstructive pulmonary disease, unspecified; L97.528 Non-pressure chronic ulcer of other part of left foot with other specified severity; S91.109A Unspecified open wound of unspecified toe(s) without damage to nail, initial encounter; M54.50 Low back pain, unspecified; E11.52 Type 2 diabetes mellitus with diabetic peripheral angiopathy with gangrene; I96 Gangrene, not elsewhere classified; G47.33 Obstructive sleep apnea (adult) (pediatric); E11.42 Type 2 diabetes mellitus with diabetic polyneuropathy; F41.8 Other specified anxiety disorders; E66.01 Morbid (severe) obesity due to excess calories; Z68.42 Body mass index [BMI] 45.0-49.9, adult; Z87.09 Personal history of other diseases of the respiratory system
CPT/HCPCS: 36415; 36569; 73630-TC-LT; 77001-TC-FY; 80053; 80061; 82962; 83036; 83735; 84443; 85025; 85027; 87070; 87075; 87205; 88304-TC; 94760; 99285-25; C1751; C9803-CS; U0003; U0005

== ENCOUNTER 2022-01-13 15:34 | Day surgery (SDC) | payer OTHER ==
[2022-01-13] MEDS ORDERED: DEXTROSE 5%-WATER 100 ML IVPB ONE (15:45)
[2022-01-13] MEDS: CEFTRIAXONE 2 GM in DEXTROSE 5%-WATER 100 ML IVPB ONE ×2 (15:58→16:04)
[2022-01-13 16:33] VITALS: BP 134/92; PULSE 114; TEMP 98.4
== END 2022-01-13 16:42 | disposition home or self-care (01) ==
LOC: FINFUSION 15:34 → FM/S 15:38 → FINFUSION 16:42
PROVIDERS: ATTEND Internal Medicine Infectious Disease
DX: M86.172 Other acute osteomyelitis, left ankle and foot (principal)
CPT/HCPCS: 96365; 96367

== ENCOUNTER 2022-01-14 15:55 | Day surgery (SDC) | payer OTHER ==
[2022-01-14] MEDS ORDERED: cefTRIAXone 2 GM/100 ML BAG (PRE-DOCKED) IVPB SCH ×2 (16:15→16:45)
[2022-01-14 17:05] VITALS: BP 132/91; PULSE 101; TEMP 97.7
== END 2022-01-14 17:00 | disposition home or self-care (01) ==
LOC: FINFUSION 15:55 → FM/S 15:57 → FINFUSION 17:00
PROVIDERS: ATTEND Internal Medicine Infectious Disease
DX: M86.172 Other acute osteomyelitis, left ankle and foot (principal)
CPT/HCPCS: 96365

== ENCOUNTER 2022-01-15 15:53 | Day surgery (SDC) | payer OTHER ==
[2022-01-15] MEDS ORDERED: DEXTROSE 5%-WATER 100 ML IVPB ONE (16:19)
[2022-01-15] MEDS ORDERED: CEFTRIAXONE 2 GM in DEXTROSE 5%-WATER 100 ML IVPB ONE (16:30)
[2022-01-15 17:19] VITALS: BP 148/86; PULSE 110; TEMP 99.2
== END 2022-01-15 17:19 | disposition home or self-care (01) ==
LOC: FINFUSION 15:53 → FM/S 15:54 → FINFUSION 17:19
PROVIDERS: ATTEND Internal Medicine Infectious Disease
DX: M86.172 Other acute osteomyelitis, left ankle and foot (principal)
CPT/HCPCS: 96365; 96367

== ENCOUNTER 2022-01-16 15:23 | Day surgery (SDC) | payer OTHER ==
[2022-01-16] MEDS ORDERED: CEFTRIAXONE 2 GM in DEXTROSE 5%-WATER 100 ML IVPB ONE (16:15)
[2022-01-16 17:06] VITALS: BP 134/94; PULSE 110; TEMP 97.8
== END 2022-01-17 13:35 | disposition home or self-care (01) ==
LOC: FINFUSION 15:23 → FM/S 15:29 → FINFUSION 01-17 13:35
PROVIDERS: ATTEND Internal Medicine Infectious Disease
DX: M86.172 Other acute osteomyelitis, left ankle and foot (principal)
CPT/HCPCS: 96365

== ENCOUNTER 2022-01-17 16:33 | Day surgery (SDC) | payer OTHER ==
[2022-01-17] MEDS ORDERED: SODIUM CHLORIDE 100 ML IVPB ONE (16:54)
[2022-01-17] MEDS ORDERED: CEFTRIAXONE 2 GM in SODIUM CHLORIDE 100 ML IVPB ONE (17:00)
[2022-01-17 18:23] VITALS: BP 152/90; PULSE 85; TEMP 98.1
== END 2022-01-17 18:06 | disposition home or self-care (01) ==
LOC: FINFUSION 16:33 → FM/S 16:38 → FINFUSION 18:06
PROVIDERS: ATTEND Internal Medicine Infectious Disease
DX: M86.172 Other acute osteomyelitis, left ankle and foot (principal)
CPT/HCPCS: 36415; 86140; 96365

== ENCOUNTER 2022-01-19 15:54 | Day surgery (SDC) | payer OTHER ==
[2022-01-19] MEDS ORDERED: CEFTRIAXONE 2 GM in DEXTROSE 5%-WATER 100 ML IVPB ONE (16:15)
[2022-01-19] MEDS ORDERED: DEXTROSE 5%-WATER 100 ML IVPB ONE (16:16)
[2022-01-19 16:56] VITALS: BP 126/81; PULSE 120; TEMP 98.8
== END 2022-01-19 17:36 | disposition home or self-care (01) ==
LOC: FINFUSION 15:54 → FM/S 15:57 → FINFUSION 17:36
PROVIDERS: ATTEND Internal Medicine Infectious Disease
DX: M86.172 Other acute osteomyelitis, left ankle and foot (principal)
CPT/HCPCS: 96365

== ENCOUNTER 2022-01-20 15:25 | Day surgery (SDC) | payer OTHER ==
[2022-01-20] MEDS ORDERED: DEXTROSE 5%-WATER 100 ML IVPB ONE (15:52)
[2022-01-20] MEDS ORDERED: CEFTRIAXONE 2 GM in DEXTROSE 5%-WATER 100 ML IVPB ONE (16:00)
[2022-01-20 17:51] VITALS: BP 146/94; PULSE 103; TEMP 98.9
== END 2022-01-20 17:52 | disposition home or self-care (01) ==
LOC: FINFUSION 15:25 → FM/S 15:28 → FINFUSION 17:52
PROVIDERS: ATTEND Internal Medicine Infectious Disease
DX: M86.172 Other acute osteomyelitis, left ankle and foot (principal)
CPT/HCPCS: 96365

== ENCOUNTER 2022-01-23 15:26 | Day surgery (SDC) | payer OTHER ==
[2022-01-23] MEDS ORDERED: CEFTRIAXONE 2 GM in DEXTROSE 5%-WATER 100 ML IVPB ONE (16:00)
[2022-01-23] MEDS ORDERED: DEXTROSE 5%-WATER 100 ML IVPB ONE (16:03)
[2022-01-23 16:54] VITALS: BP 131/81; PULSE 85; TEMP 98.5
[2022-01-23 16:54] LABS: CREATININE 0.9 mg/dl (0.55-1.3); GLUCOSE,RANDOM 481 mg/dl (74-106)
[2022-01-23 21:41] LABS: CHLORIDE 106 mmol/L (98-107); SODIUM 142 mmol/L (136-145)
[2022-01-23 21:42] LABS: CALCIUM 8.8 mg/dL (8.5-10.1); CO2 27 mmol/L (21-32)
[2022-01-23 21:43] LABS: ANION GAP 9 MMOL/L (8-16)
== END 2022-01-23 16:54 | disposition home or self-care (01) ==
LOC: FINFUSION 15:26 → FM/S 15:29 → FINFUSION 16:54
PROVIDERS: ATTEND Internal Medicine Infectious Disease
DX: M86.172 Other acute osteomyelitis, left ankle and foot (principal)
CPT/HCPCS: 36415; 80048; 82550; 85651; 86140; 96365

== ENCOUNTER 2022-01-26 15:51 | Day surgery (SDC) | payer OTHER ==
[2022-01-26] MEDS ORDERED: CEFTRIAXONE 2 GM in DEXTROSE 5%-WATER 100 ML IVPB ONE (16:30)
[2022-01-26] MEDS ORDERED: DEXTROSE 5%-WATER 100 ML IVPB ONE (16:31)
[2022-01-26 17:19] VITALS: BP 150/97; PULSE 102; TEMP 98.6
== END 2022-01-26 17:15 | disposition home or self-care (01) ==
LOC: FINFUSION 15:51 → FM/S 15:53 → FINFUSION 17:15
PROVIDERS: ATTEND Internal Medicine Infectious Disease
DX: M86.172 Other acute osteomyelitis, left ankle and foot (principal)
CPT/HCPCS: 96365

== ENCOUNTER 2022-01-27 15:34 | Day surgery (SDC) | payer OTHER ==
[2022-01-27] MEDS ORDERED: DEXTROSE 5%-WATER 100 ML IVPB ONE (16:12)
[2022-01-27] MEDS ORDERED: CEFTRIAXONE 2 GM in DEXTROSE 5%-WATER 100 ML IVPB ONE (16:15)
[2022-01-27 17:12] VITALS: BP 151/102; PULSE 102; TEMP 98.1
== END 2022-01-27 17:15 | disposition home or self-care (01) ==
LOC: FINFUSION 15:34 → FM/S 15:37 → FINFUSION 17:15
PROVIDERS: ATTEND Internal Medicine Infectious Disease
DX: M86.172 Other acute osteomyelitis, left ankle and foot (principal)
CPT/HCPCS: 96365

== ENCOUNTER 2022-01-30 15:56 | Day surgery (SDC) | payer OTHER ==
[2022-01-30] MEDS ORDERED: DEXTROSE 5%-WATER 100 ML IVPB ONE (16:26)
[2022-01-30] MEDS ORDERED: CEFTRIAXONE 2 GM in DEXTROSE 5%-WATER 100 ML IVPB ONE (16:30)
[2022-01-30 17:43] VITALS: BP 147/82; PULSE 76; TEMP 97.9
== END 2022-01-30 17:30 | disposition home or self-care (01) ==
LOC: FINFUSION 15:56 → FM/S 15:58 → FINFUSION 17:30
PROVIDERS: ATTEND Internal Medicine Infectious Disease
DX: M86.172 Other acute osteomyelitis, left ankle and foot (principal)
CPT/HCPCS: 36415; 86140; 96365

== ENCOUNTER 2022-01-31 15:58 | Day surgery (SDC) | payer OTHER ==
[2022-01-31] MEDS ORDERED: DEXTROSE 5%-WATER 100 ML IVPB ONE (16:20)
[2022-01-31] MEDS ORDERED: CEFTRIAXONE 2 GM in DEXTROSE 5%-WATER 100 ML IVPB ONE (16:30)
[2022-01-31 17:00] VITALS: BP 127/72; PULSE 85; TEMP 97.9
== END 2022-01-31 17:02 | disposition home or self-care (01) ==
LOC: FINFUSION 15:58 → FM/S 16:01 → FINFUSION 17:02
PROVIDERS: ATTEND Internal Medicine Infectious Disease
DX: M86.172 Other acute osteomyelitis, left ankle and foot (principal)
CPT/HCPCS: 96365

== ENCOUNTER 2022-02-02 15:19 | Day surgery (SDC) | payer OTHER ==
[2022-02-02] MEDS ORDERED: DEXTROSE 5%-WATER 100 ML IVPB ONE (15:58)
[2022-02-02] MEDS ORDERED: CEFTRIAXONE 2 GM in DEXTROSE 5%-WATER 100 ML IVPB ONE (16:00)
[2022-02-02 17:04] VITALS: BP 137/83; PULSE 100; TEMP 98.9
== END 2022-02-02 17:10 | disposition home or self-care (01) ==
LOC: FINFUSION 15:19 → FM/S 15:22 → FINFUSION 17:10
PROVIDERS: ATTEND Internal Medicine Infectious Disease
DX: M86.172 Other acute osteomyelitis, left ankle and foot (principal)
CPT/HCPCS: 96365

== ENCOUNTER 2022-02-03 15:57 | Day surgery (SDC) | payer OTHER ==
[2022-02-03] MEDS ORDERED: CEFTRIAXONE 2 GM in DEXTROSE 5%-WATER 100 ML IVPB ONE (16:30)
[2022-02-03 16:37] VITALS: RESP 18; TEMP 98.5
[2022-02-03 16:58] VITALS: BP 145/98; PULSE 94
== END 2022-02-03 17:00 | disposition home or self-care (01) ==
LOC: FINFUSION 15:57 → FM/S 16:00 → FINFUSION 17:00
PROVIDERS: ATTEND Internal Medicine Infectious Disease
DX: M86.172 Other acute osteomyelitis, left ankle and foot (principal)
CPT/HCPCS: 96365

== ENCOUNTER 2022-02-07 15:29 | Day surgery (SDC) | payer OTHER ==
[2022-02-07] MEDS ORDERED: DEXTROSE 5%-WATER 100 ML IVPB ONE (16:15)
[2022-02-07] MEDS ORDERED: CEFTRIAXONE 2 GM in DEXTROSE 5%-WATER 100 ML IVPB ONE (16:15)
[2022-02-07 16:23] VITALS: BP 141/87; PULSE 92; RESP 18; TEMP 98.8
== END 2022-02-07 17:10 | disposition home or self-care (01) ==
LOC: FINFUSION 15:29 → FM/S 15:30 → FINFUSION 17:10
PROVIDERS: ATTEND Internal Medicine Infectious Disease
DX: M86.172 Other acute osteomyelitis, left ankle and foot (principal)
CPT/HCPCS: 96365

== ENCOUNTER 2022-02-08 15:25 | Day surgery (SDC) | payer OTHER ==
[2022-02-08] MEDS ORDERED: DEXTROSE 5%-WATER 100 ML IVPB ONE (15:41)
[2022-02-08] MEDS ORDERED: CEFTRIAXONE 2 GM in DEXTROSE 5%-WATER 100 ML IVPB ONE (15:45)
[2022-02-08 16:24] VITALS: BP 153/96; PULSE 100; RESP 18; TEMP 98.1
== END 2022-02-08 16:24 | disposition home or self-care (01) ==
LOC: FINFUSION 15:25 → FM/S 15:26 → FINFUSION 16:24
PROVIDERS: ATTEND Internal Medicine Infectious Disease
DX: M86.172 Other acute osteomyelitis, left ankle and foot (principal)
CPT/HCPCS: 96365

== ENCOUNTER 2022-02-09 16:00 | Day surgery (SDC) | payer OTHER ==
[2022-02-09 16:38] VITALS: RESP 18; TEMP 98.2
[2022-02-09] MEDS ORDERED: DEXTROSE 5%-WATER 100 ML IVPB ONE (16:39)
[2022-02-09] MEDS ORDERED: CEFTRIAXONE 2 GM in DEXTROSE 5%-WATER 100 ML IVPB ONE (16:45)
[2022-02-09 17:19] VITALS: BP 133/81; PULSE 100
== END 2022-02-09 17:19 | disposition home or self-care (01) ==
LOC: FINFUSION 16:00 → FM/S 16:02 → FINFUSION 17:19
PROVIDERS: ATTEND Internal Medicine Infectious Disease
DX: M86.172 Other acute osteomyelitis, left ankle and foot (principal)
CPT/HCPCS: 96365

== ENCOUNTER 2022-02-13 15:31 | Day surgery (SDC) | payer OTHER | END 2022-02-13 16:12 | disposition home or self-care (01) | LOC: FINFUSION 15:31 → FM/S 15:35 → FINFUSION 16:12 | PROVIDERS: ATTEND Internal Medicine Infectious Disease | PROC: 0XP6XYZ Removal of Other Device from Right Upper Extremity, External Approach (ICD-10-PCS; principal; 2022-02-13) | DX: M86.172 Other acute osteomyelitis, left ankle and foot (principal) | CPT/HCPCS: 36589 ==